=== PATIENT | female | born 1950 | race Caucasian/White ===

== ENCOUNTER → 2016-10-07 | Outpatient (CLI) | payer BC ==
[~2016-10-07] MED LIST: ACET-1138 PO; CALC500C70 PO; CHOL100010 PO; CHOL100027 PO; CRAN500C2 PO; DTR5 PO; Duricef PO; GABA-112 PO; HYDR-5688 PO; HYDR200T5 PO; LEFL20TA PO; MISCCAP80 PO; NAPR1TAB9 PO; NF1420 OR; PRD/1 PO; PRED-301 PO; PRLSR20 PO; RIFA300C34 PO; SENN-61 PO
[2016-10-07 12:12] LABS: HEMATOCRIT 32.6 % (37-47); MEAN CELL VOLUME 78.4 fL (80-100); MEAN CORPUSCULAR HEMOGLOBIN 23.8 pg (25-34); MEAN CORPUSCULAR HGB CONC 30.4 g/dl (32-36); MEAN PLATELET VOLUME 9.1 fL (7.4-10.4); PLATELET COUNT 311 K/uL (130-400); RED BLOOD COUNT 4.16 M/uL (4.2-5.4); WHITE BLOOD COUNT 8.42 K/uL (4.8-10.8)
[2016-10-07 12:42] LABS: ALT/SGPT 14 U/L (12-78); CREATININE 0.81 mg/dl (0.60-1.20)
[2016-10-07 12:45] LABS: ALKALINE PHOSPHATASE 61 U/L (45-117); AST/SGOT 7 U/L (15-37)
== END | disposition home or self-care (01) ==
LOC: C.LABPVFM 10:38
PROVIDERS: ATTEND Internal Medicine
DX: M06.9 Rheumatoid arthritis, unspecified (principal); Z79.899 Other long term (current) drug therapy

== ENCOUNTER 2016-10-31 14:55 | Emergency (ER) | payer BC ==
[~2016-10-31] VITALS: Ht 160 cm; Wt 55.0 kg
[~2016-10-31 14:55] MED LIST changes: -CHOL100027 PO; -Duricef PO; -HYDR-5688 PO; -NF1420 OR; -RIFA300C34 PO
[2016-10-31 15:03] VITALS: TEMP 36.7; Ht 160 cm; Wt 55.0 kg
--- NOTE | 2016-10-31 15:46 | DIAGNOSTIC IMAGING REPORT ---
SINGLE VIEW CHEST CLINICAL HISTORY: Near syncope. FINDINGS: An AP, portable, upright chest radiograph is compared to study dated 12/18/2015. The examination is degraded by portable technique and patient rotation. The heart is mildly enlarged and there is atherosclerotic calcification of the thoracic aorta. The pulmonary vasculature is noncongested. Emphysema is suspected and chronic interstitial thickening is similar to previous. No airspace consolidation, large pleural effusion, or pneumothorax is seen. The skeletal structures are osteopenic. Arthritic change is seen in the shoulders. Chronic postsurgical deformity is noted on the right. IMPRESSION: Cardiomegaly and suspect emphysema. No acute cardiopulmonary abnormality is identified. Electronically signed by: Geremias Avila M.D. 10/31/2016 3:44 PM Dictated Date/Time: 10/31/2016 3:42 PM
[2016-10-31 16:03] LABS: BUN/CREATININE RATIO 26.7 (10-20); CALCIUM 8.8 mg/dl (8.5-10.1); CREATININE 0.77 mg/dl (0.60-1.20); POTASSIUM 3.9 mmol/L (3.5-5.1)
--- NOTE | 2016-10-31 16:07 | EMERGENCY ROOM VISIT NOTE ---
History Report prepared by Michi: Sonia Patel Under the Supervision of: Dr. Erma Alatorre M.D. First contact with patient: 15:32 Chief Complaint: SYNCOPE (NEAR SYNCOPE) Stated Complaint: near syncope Nursing Triage Summary: recieved a small amount of her inpatient antibiotic-only abut 50 mL per nurse-and developed dizziness with hypotension-as low as 75 SBP-states this was her 5th dose of this antibiotic and that this has never happened before History of Present Illness The patient is a 66 year old female who presents to the Emergency Room with complaints of feeling flushed starting a few minutes prior to arrival. The patient has right knee infection after right knee replacement surgery. She has been receiving dalbavancin injection every 2 weeks at the wound care clinic. Today was her fifth treatment and it was supposed to be her last treatment. She denies any history of reaction to the antibiotic. The patient received about 50 mls of the antibiotic today when she started feeling flushed and hot with some blurriness in her vision. She also felt lightheaded. She denies any loss of consciousness. The patient is unsure about any heart palpitations. She currently denies any pain but continues to feel warm. The patient denies any history of similar symptoms. She denies any chest pain, shortness of breath, nausea, vomiting, diarrhea, or any other complaints. Source of History: patient Onset: a few minutes prior to arrival Position: other (global) Symptom Intensity: No pain currently Quality: other (feeling flushed) Associated Symptoms: No LOC, No SOB, No chest pain, No diarrhea, No nausea, No vomiting Review of Systems See HPI for pertinent positives & negatives. A total of 10 systems reviewed and were otherwise negative. 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 Social History Smoking Status: Never Smoker Alcohol Use: occasionally Drug Use: none Marital Status: Housing Status: lives with family Occupation Status: retired Current/Historical Medications Scheduled Calcium/Vitamin D (Os-Dylan 500 Plus D), 1 TAB PO BID Cholecalciferol (Vitamin D 1000 Unit), 1,000 INTER.UNIT PO QPM Cranberry (Vaccinium Macrocarp (Cranberry), 500 MG PO HS Gabapentin (Neurontin), 100 MG PO TID Hydroxychloroquine Sulfate (Plaquenil), 1 TAB PO BID Leflunomide (Arava), 1 TAB PO DAILY Naproxen (Aleve), 500 MG PO BID Omeprazole (Prilosec), 20 MG PO BID Oxybutynin Chloride (Oxybutynin Chloride), 5 MG PO BID Prednisone (Prednisone), 5 MG PO QAM Prednisone (Prednisone), 1 MG PO QPM Probiotic Product (Probiotic), 1 CAP PO QAM Senna (Senokot), 2 TAB PO HS Scheduled PRN Hydrocodone/Acetaminophen 5MG/325MG ([place] 5MG/325MG), 1 TABLET PO HS PRN for Pain Allergies Coded Allergies: Dalbavancin (Verified Allergy, Severe, hypotension, flushing, tachypnea, ) Physical Exam Vital Signs Date Time Temp Pulse Resp B/P Pulse Ox O2 Delivery O2 Flow Rate FiO2 10/31/16 17:50 58 167/90 10/31/16 16:57 60 16 145/55 90 Room Air 10/31/16 15:59 77 20 176/83 10/31/16 15:53 73 20 150/81 76 147/61 81 127/69 10/31/16 15:11 82 10/31/16 15:03 36.7 79 18 151/81 97 Room Air Physical Exam Vital signs reviewed. General: Well-appearing, in no significant distress. HEENT: No scleral icterus, PERRLA, neck supple. Atraumatic. Cardiovascular: Regular rate and rhythm, no extra sounds. Pulmonary: Clear to auscultation bilaterally, normal work of breathing. Abdomen: Soft, nontender, nondistended, positive bowel sounds. Musculoskeletal: Atraumatic, no peripheral edema. Neurologic: Patient awake alert and oriented x 3, full strength in all 4 extremities. Cranial nerves 2 through 12 grossly intact. Skin: Warm, dry, no rash. Some open wound with packing about a half a centimeter to the right [place] with a dressing in place, no sign of abscess or cellulitis. Medical Decision & Procedures ER Provider Diagnostic Interpretation: X-ray results as stated below per interpretation by me and the radiologist: SINGLE VIEW CHEST CLINICAL HISTORY: Near syncope. FINDINGS: An AP, portable, upright chest radiograph is compared to study dated 12/18/2015. The examination is degraded by portable technique and patient rotation. The heart is mildly enlarged and there is atherosclerotic calcification of the thoracic aorta. The pulmonary vasculature is noncongested. Emphysema is suspected and chronic interstitial thickening is similar to previous. No airspace consolidation, large pleural effusion, or pneumothorax is seen. The skeletal structures are osteopenic. Arthritic change is seen in the shoulders. Chronic postsurgical deformity is noted on the right. IMPRESSION: Cardiomegaly and suspect emphysema. No acute cardiopulmonary abnormality is identified. Electronically signed by: Geremias Avila M.D. 10/31/2016 3:44 PM Dictated Date/Time: 10/31/2016 3:42 PM Laboratory Results 10/31/16 15:25 Red Blood Count 4.01, Mean Corpuscular Volume 78.3, Mean Corpuscular Hemoglobin 23.7, Mean Corpuscular Hemoglobin Concent 30.3, Mean Platelet Volume 9.7, Neutrophils (%) (Auto) 79.8, Lymphocytes (%) (Auto) 12.9, Monocytes (%) (Auto) 4.3, Eosinophils (%) (Auto) 2.5, Basophils (%) (Auto) 0.2, Neutrophils # (Auto) 4.81, Lymphocytes # (Auto) 0.78, Monocytes # (Auto) 0.26, Eosinophils # (Auto) 0.15, Basophils # (Auto) 0.01 10/31/16 15:25 Test 10/31/16 15:25 10/31/16 15:29 10/31/16 15:50 White Blood Count 6.03 K/uL (4.8-10.8) Red Blood Count 4.01 M/uL (4.2-5.4) Hemoglobin 9.5 g/dL (12.0-16.0) Hematocrit 31.4 % (37-47) Mean Corpuscular Volume 78.3 fL (80-100) Mean Corpuscular Hemoglobin 23.7 pg (25-34) Mean Corpuscular Hemoglobin Concent 30.3 g/dl (32-36) Platelet Count 311 K/uL (130-400) Mean Platelet Volume 9.7 fL (7.4-10.4) Neutrophils (%) (Auto) 79.8 % Lymphocytes (%) (Auto) 12.9 % Monocytes (%) (Auto) 4.3 % Eosinophils (%) (Auto) 2.5 % Basophils (%) (Auto) 0.2 % Neutrophils # (Auto) 4.81 K/uL (1.4-6.5) Lymphocytes # (Auto) 0.78 K/uL (1.2-3.4) Monocytes # (Auto) 0.26 K/uL (0.11-0.59) Eosinophils # (Auto) 0.15 K/uL (0-0.5) Basophils # (Auto) 0.01 K/uL (0-0.2) RDW Standard Deviation 49.0 fL (36.4-46.3) RDW Coefficient of Variation 17.1 % (11.5-14.5) Immature Granulocyte % (Auto) 0.3 % Immature Granulocyte # (Auto) 0.02 K/uL (0.00-0.02) Anion Gap 6.0 mmol/L (3-11) Est Creatinine Clear Calc Drug Dose 57.8 ml/min Estimated GFR () 92.0 Estimated GFR (Non- 79.3 BUN/Creatinine Ratio 26.7 (10-20) Calcium Level 8.8 mg/dl (8.5-10.1) Total Bilirubin 0.3 mg/dl (0.2-1) Aspartate Amino Transf (AST/SGOT) 9 U/L (15-37) Alanine Aminotransferase (ALT/SGPT) 14 U/L (12-78) Alkaline Phosphatase 63 U/L (45-117) Total Creatine Kinase 74 U/L (26-192) Creatine Kinase MB 0.7 ng/ml (0.5-3.6) Creatine Kinase MB Ratio 0.9 (0-3.0) Total Protein 6.1 gm/dl (6.4-8.2) Albumin 3.2 gm/dl (3.4-5.0) Globulin 2.9 gm/dl (2.5-4.0) Albumin/Globulin Ratio 1.1 (0.9-2) Thyroid Stimulating Hormone (TSH) 0.847 uIu/ml (0.300-4.500) Bedside Troponin I 0.000 ng/ml (0-0.045) Urine Color YELLOW Urine Appearance CLEAR (CLEAR) Urine pH 8.0 (4.5-7.5) Urine Specific [place] 1.014 (1.000-1.030) Urine Protein 1+ (NEG) Urine Glucose (UA) NEG (NEG) Urine Ketones NEG (NEG) Urine Occult Blood NEG (NEG) Urine Nitrite NEG (NEG) Urine Bilirubin NEG (NEG) Urine Urobilinogen NEG (NEG) Urine Leukocyte Esterase TRACE (NEG) Urine WBC (Auto) 10-30 /hpf (0-5) Urine RBC (Auto) 0-4 /hpf (0-4) Urine Hyaline Casts (Auto) 1-5 /lpf (0-5) Urine Epithelial Cells (Auto) >30 /lpf (0-5) Urine Bacteria (Auto) NEG (NEG) Date/Time Source Procedure Growth Status 10/31/16 15:50 Urine , Clean Catch Urine Culture - Final Proteus Mirabilis Complete Laboratory results per my review. Medications Administered Medications (Trade) Dose Ordered Sig/Brown Route Start Time Stop Time Status Last Admin Dose Admin Sodium Chloride (Nss 1000ml) 1,000 ml @ 125 mls/hr Q8H STAT IV 10/31/16 16:25 10/31/16 18:10 DC 10/31/16 16:25 125 MLS/HR ECG Indication: other (Lightheadedness) Rate (beats per minute): 76 Rhythm: normal sinus Findings: no acute ischemic change, no ectopy ED Course 1532: Past medical records reviewed. The patient was evaluated in room C02A. A complete history and physical examination was performed. 1625: Sodium Chloride 1000 ml @ 125 mls/hr IV 1740: Upon reevaluation, the patient appeared to have improvement of her symptoms. I discussed findings with her. She verbalized agreement of the treatment plan. The patient was discharged home. Medical Decision Differential diagnosis: Etiologies such as benign positional vertigo, dehydration, hypovolemia, anemia, tumor, infection, hypoglycemia, electrolyte abnormalities, cardiac sources, intracerebral event, toxicologic, neurologic, as well as others were entertained. This patient was evaluated and appeared to be in no significant distress. Physical examination is fairly unrevealing. The patient is mildly orthostatic. She was hydrated with normal saline solution. I suspect the patient had some sort of reaction to the antibiotic although I do not suspect this is a clear allergic reaction. This time she is feeling well. Laboratory work is unrevealing. Urinalysis is questionable for infection and contaminated with epithelial cells. The patient denies any urinary symptoms at this time. Urine will be sent for culture. The patient was advised to follow-up with her physician this week for reevaluation and to return to the ER for worsening of symptoms or any medical concerns. Impression Primary Impression: Near syncope Additional Impression: Flushing reaction Scribe Attestation The scribe's documentation has been prepared under my direction and personally reviewed by me in its entirety. I confirm that the note above accurately reflects all work, treatment, procedures, and medical decision making performed by me. Departure Information Dispostion Home / Self-Care Referrals Lorenzo Evangelista M.D. (PCP) Forms HOME CARE DOCUMENTATION FORM, IMPORTANT VISIT INFORMATION Patient Instructions [facility] Additional Instructions Diagnosis: Flushing reaction, near syncope Please drink plenty of clear fluids. Follow-up with your physician this week for reevaluation. Monitor for signs and symptoms of urinary tract infection. Return to the ER for worsening of symptoms or any medical concern Problem Qualifiers
[2016-10-31 16:13] LABS: ALB/GLOB RATIO 1.1 (0.9-2); CKMB/CK RATIO 0.9 (0-3.0); THYROID STIMULATING HORMONE 0.847 uIu/ml (0.300-4.500)
[2016-10-31] MEDS ORDERED: CHOL100027 PO (16:19)
[2016-10-31] MEDS ORDERED: DTR5 PO (16:19)
[2016-10-31] MEDS ORDERED: HYDR-5688 PO (16:19)
[2016-10-31 16:21] LABS: URINE APPEARANCE CLEAR (CLEAR); URINE BILIRUBIN NEG (NEG); URINE COLOR YELLOW; URINE EPITHELIAL CELL AUTO >30 /lpf (0-5); URINE NITRITE NEG (NEG); URINE SPECIFIC GRAVITY 1.014 (1.000-1.030); UROBILINOGEN NEG (NEG); ZZUR CULT IF INDIC CLEAN CATCH YES
[2016-10-31] MEDS ORDERED: SODIUM CHLORIDE 0.9% 1000ML 1,000 ML IV STA (16:25)
[2016-10-31 16:28] LABS: MANUAL MICROSCOPIC REQUIRED? NO; REVIEW REQ? NO
[2016-10-31 16:29] LABS: SULFASALICYLIC ACID POS (NEG)
[2016-10-31 16:57] VITALS: O2SAT 90
[2016-10-31 17:24] LABS: BASO % 0.2 %; BASO ABS # 0.01 K/uL (0-0.2); COMPLETE YES; EOS % 2.5 %; HEMATOCRIT 31.4 % (37-47); IG% 0.3 %; LYMPH % 12.9 %; LYMPH ABS # 0.78 K/uL (1.2-3.4); MEAN CELL VOLUME 78.3 fL (80-100); MEAN CORPUSCULAR HEMOGLOBIN 23.7 pg (25-34); MEAN CORPUSCULAR HGB CONC 30.3 g/dl (32-36); MEAN PLATELET VOLUME 9.7 fL (7.4-10.4); MONO % 4.3 %; NEUT % 79.8 %; PLATELET COUNT 311 K/uL (130-400); RED BLOOD COUNT 4.01 M/uL (4.2-5.4); WHITE BLOOD COUNT 6.03 K/uL (4.8-10.8)
[2016-10-31 17:50] VITALS: BP 167/90; PULSE 58
[2016-11-05] MEDS ORDERED: NF1420 OR (09:35)
[2016-11-13] MEDS ORDERED: RIFA300C34 PO (13:18)
[2017-01-15] MEDS ORDERED: Duricef PO (10:23)
== END 2016-10-31 17:51 | disposition home or self-care (01) ==
LOC: EDBD 14:55 → C.EDC 14:56
DX: R55 Syncope and collapse (principal); R23.2 Flushing; M81.0 Age-related osteoporosis without current pathological fracture; Z85.71 Personal history of Hodgkin lymphoma; Z85.3 Personal history of malignant neoplasm of breast; Z85.810 Personal history of malignant neoplasm of tongue; Z96.649 Presence of unspecified artificial hip joint; Z79.899 Other long term (current) drug therapy; Z88.8 Allergy status to other drugs, medicaments and biological substances; T84.53XA Infection and inflammatory reaction due to internal right knee prosthesis, initial encounter; B95.8 Unspecified staphylococcus as the cause of diseases classified elsewhere; Y83.1 Surgical operation with implant of artificial internal device as the cause of abnormal reaction of the patient, or of later complication, without mention of misadventure at the time of the procedure

== ENCOUNTER → 2016-12-04 | Outpatient (CLI) | payer BC ==
[~2016-12-04] MED LIST changes: -ACET-1138 PO; -CHOL100010 PO; +CHOL100027 PO; +Duricef PO; +HYDR-5688 PO; +NF1420 OR
--- NOTE | 2016-12-04 16:18 | MAMMOGRAPHY REPORT ---
BILATERAL DIGITAL SCREENING MAMMOGRAM WITH CAD: 12/04/2016 CLINICAL HISTORY: Routine screening. Patient has no complaints. TECHNIQUE: Current study was also evaluated with a Computer Aided Detection (CAD) system. Bilateral CC and MLO views were obtained. COMPARISON: Comparison is made to exams dated: 02/01/2015 mammogram, 01/23/2015 mammogram, 01/19/2014 m ammogram, 01/18/2013 mammogram, 01/01/2012 mammogram, and 12/30/2010 mammogram - [facility] enter. BREAST COMPOSITION: The tissue of both breasts is heterogeneously dense, which may obscure small mas ses. FINDINGS: No suspicious masses, calcifications, or areas of architectural distortion are noted in ei ther breast. There has been no significant interval change compared to prior exams. Bilateral benign -appearing calcifications are not significantly changed. IMPRESSION: ACR BI-RADS CATEGORY 2: BENIGN There is no mammographic evidence of malignancy. A 1 year screening mammogram is recommended. The pa tient will receive written notification of the results. Approximately 10% of breast cancers are not detected with mammography. A negative mammographic report should not delay biopsy if a clinically suggestive mass is present. Leyla Nice M.D. /:12/04/2016 15:32:51 Java Portal Developer: Ada CARLISLE(Ramsey)(David)(URMILA), [facility] letter sent: Normal 1/2 BI-RADS Code: ACR BI-RADS Category 2: Benign
== END | disposition home or self-care (01) ==
LOC: C.MAMM 10:36
PROVIDERS: ATTEND Obstetrics & Gynecology
DX: Z12.31 Encounter for screening mammogram for malignant neoplasm of breast (principal); Z86.39 Personal history of other endocrine, nutritional and metabolic disease

== ENCOUNTER → 2016-12-04 | Outpatient (CLI) | payer BC | END | disposition home or self-care (01) | LOC: C.PAPS 13:44 | PROVIDERS: ATTEND Obstetrics & Gynecology | DX: Z13.9 Encounter for screening, unspecified (principal) ==

== ENCOUNTER → 2016-12-04 | Outpatient (CLI) | payer BC ==
--- NOTE | 2016-12-12 10:40 | CODING QUERY MEDICAL NECESSITY ---
SUPPORTING DIAGNOSIS NEEDED Dr. Guajardo, A supporting diagnosis is required for the test/procedure performed on this patient in order for us to be reimbursed by the patient's insurance. Please provide a supporting diagnosis for the following test/procedure listed below next to the test name along with your signature. *If there is no additional diagnosis for this patient that would support the following test/procedure please document that below next to the test/procedure. Test(s)/Procedure(s) that require a supporting diagnosis: * ([id number]) VITAMIN D ASSAY DIAGNOSIS: DATE OF SERVICE: 12/04/16 Provider Signature: Date: Thank you Tremaine [facility] Information Management Once completed, please kindly fax back to [phone] For questions please call [phone]
== END | disposition home or self-care (01) ==
LOC: C.LAB1850 10:03
PROVIDERS: ATTEND Internal Medicine Endocrinology, Diabetes & Metabolism
DX: Z86.39 Personal history of other endocrine, nutritional and metabolic disease (principal); Z87.39 Personal history of other diseases of the musculoskeletal system and connective tissue

== ENCOUNTER → 2016-12-29 | Outpatient (CLI) | payer BC | END | disposition home or self-care (01) | LOC: C.MAMM 10:26 | PROVIDERS: ATTEND Internal Medicine Endocrinology, Diabetes & Metabolism | DX: M85.831 Other specified disorders of bone density and structure, right forearm (principal); Z87.39 Personal history of other diseases of the musculoskeletal system and connective tissue; M51.36 Other intervertebral disc degeneration, lumbar region; Z86.39 Personal history of other endocrine, nutritional and metabolic disease ==

== ENCOUNTER → 2017-01-08 | Outpatient (CLI) | payer BC ==
[2017-01-08 12:31] LABS: CALCIUM 9.7 mg/dl (8.5-10.1); CREATININE 0.81 mg/dl (0.60-1.20)
== END | disposition home or self-care (01) ==
LOC: C.LAB1850 10:25
PROVIDERS: ATTEND Internal Medicine Endocrinology, Diabetes & Metabolism
DX: Z87.39 Personal history of other diseases of the musculoskeletal system and connective tissue (principal); Z86.39 Personal history of other endocrine, nutritional and metabolic disease

== ENCOUNTER → 2017-01-15 | Day surgery (SDC) | payer BC ==
[~2017-01-15] VITALS: Ht 157.5 cm; Wt 55.5 kg
[~2017-01-15] MED LIST changes: +ZOLEDRONIC ACID INJ 5 MG in EMPTY BAG 0 ML IV SCH
[2017-01-15 10:25] VITALS: BP 176/74; PULSE 73; TEMP 36.4; O2SAT 95; Ht 157.5 cm; Wt 55.5 kg
== END | disposition home or self-care (01) ==
LOC: C.MTU 09:40
PROVIDERS: ATTEND Internal Medicine Endocrinology, Diabetes & Metabolism
DX: M81.8 Other osteoporosis without current pathological fracture (principal); T38.0X5A Adverse effect of glucocorticoids and synthetic analogues, initial encounter

== ENCOUNTER → 2017-04-01 | Outpatient (CLI) | payer BC ==
[~2017-04-01] MED LIST changes: -ZOLEDRONIC ACID INJ 5 MG in EMPTY BAG 0 ML IV SCH
[2017-04-01 17:27] LABS: HEMATOCRIT 34.7 % (37-47); MEAN CELL VOLUME 76.9 fL (80-100); MEAN CORPUSCULAR HEMOGLOBIN 22.6 pg (25-34); MEAN CORPUSCULAR HGB CONC 29.4 g/dl (32-36); MEAN PLATELET VOLUME 9.3 fL (7.4-10.4); PLATELET COUNT 279 K/uL (130-400); RED BLOOD COUNT 4.51 M/uL (4.2-5.4); WHITE BLOOD COUNT 9.21 K/uL (4.8-10.8)
[2017-04-01 17:43] LABS: ALT/SGPT 15 U/L (12-78); AST/SGOT 8 U/L (15-37); CREATININE 0.66 mg/dl (0.60-1.20)
[2017-04-01 17:45] LABS: ALKALINE PHOSPHATASE 56 U/L (45-117)
== END | disposition home or self-care (01) ==
LOC: C.LABPVFM 10:46
PROVIDERS: ATTEND Internal Medicine
DX: M06.09 Rheumatoid arthritis without rheumatoid factor, multiple sites (principal); Z79.899 Other long term (current) drug therapy

== ENCOUNTER → 2017-10-08 | Outpatient (CLI) | payer BC ==
[2017-10-08 13:17] LABS: HEMATOCRIT 34.1 % (37-47); MEAN CELL VOLUME 74.6 fL (80-100); MEAN CORPUSCULAR HEMOGLOBIN 21.9 pg (25-34); MEAN CORPUSCULAR HGB CONC 29.3 g/dl (32-36); MEAN PLATELET VOLUME 9.5 fL (7.4-10.4); PLATELET COUNT 315 K/uL (130-400); RED CELL DISTRIBUTION WIDTH CV 18.9 % (11.5-14.5); RED CELL DISTRIBUTION WIDTH SD 51.1 fL (36.4-46.3); WHITE BLOOD COUNT 8.76 K/uL (4.8-10.8)
[2017-10-08 14:25] LABS: ALBUMIN 3.6 gm/dl (3.4-5.0); ALT/SGPT 16 U/L (12-78); CREATININE 0.84 mg/dl (0.60-1.20)
[2017-10-08 14:28] LABS: ALKALINE PHOSPHATASE 56 U/L (45-117); AST/SGOT 9 U/L (15-37); TOTAL PROTEIN 6.7 gm/dl (6.4-8.2)
== END | disposition home or self-care (01) ==
LOC: C.LABPVFM 09:39
PROVIDERS: ATTEND Internal Medicine
DX: M06.09 Rheumatoid arthritis without rheumatoid factor, multiple sites (principal); Z79.899 Other long term (current) drug therapy

== ENCOUNTER → 2018-01-21 | Outpatient (CLI) | payer BC ==
[~2018-01-21] MED LIST changes: +BIOT1CAP8 PO
[2018-01-21 09:55] LABS: ALBUMIN 3.5 gm/dl (3.4-5.0); CALCIUM 9.8 mg/dl (8.5-10.1); CREATININE 0.83 mg/dl (0.60-1.20)
== END | disposition home or self-care (01) ==
LOC: C.LAB1850 08:52
PROVIDERS: ATTEND Internal Medicine Endocrinology, Diabetes & Metabolism
DX: Z87.39 Personal history of other diseases of the musculoskeletal system and connective tissue (principal); Z79.899 Other long term (current) drug therapy

== ENCOUNTER → 2018-01-27 | Day surgery (SDC) | payer BC ==
[~2018-01-27] VITALS: Ht 159.4 cm; Wt 56.4 kg
[~2018-01-27] MED LIST changes: +ZOLEDRONIC ACID INJ 5 MG in EMPTY BAG 0 ML IV SCH
[2018-01-27 07:59] VITALS: BP 130/75; PULSE 90; TEMP 36.8; O2SAT 90; Ht 159.4 cm; Wt 56.4 kg
--- NOTE | 2018-02-12 13:36 | CODING QUERY NO DIAGNOSIS ---
TREATMENT RENDERED WITHOUT A DIAGNOSIS DATE OF SERVICE: 01/27/18 To promote full compliance with coding requirements relating to patient care, physician participation is requested in all cases of postage machine operator uncertainty. Please assist us with providing a diagnosis/symptom for the test(s) below: A diagnosis/symptom was not documented on your Order. A valid diagnosis/symptom is required to bill all insurances. Please remember that we are unable to code a diagnosis of rule out, probable, possible, questionable, or suspected. Tests that require a diagnosis: * ZOLEDRONIC ACID 5MG/100ML DIAGNOSIS: BE SURE TO ADD DIAGNOSIS BEFORE SIGNING Provider Signature: Date: Thank you Maddi Concepcion [facility] Information Management Once completed, please kindly fax back to [phone] For questions please call [phone]
== END | disposition home or self-care (01) ==
LOC: C.MTU 07:50
PROVIDERS: ATTEND Internal Medicine Endocrinology, Diabetes & Metabolism
DX: Z86.39 Personal history of other endocrine, nutritional and metabolic disease (principal); Z87.39 Personal history of other diseases of the musculoskeletal system and connective tissue

== ENCOUNTER 2018-11-09 08:01 | Inpatient (IN) ==
--- NOTE | 2018-10-15 10:39 | Anesthesiology Consultation ---
Date of Service October 15, 2018 Assessment & Plan (1) Encounter for pre-operative examination: Chart Review Chart Review: Acceptable Risk for Surgery and Patient seen in Pre Admission Testing Teaching & Discussion Instructed NPO after midnight before surgery, except medications with 15 cc of water. Medication instructions provided according to the PAT guidelines. History Surgery Operation Date: 11/09/18 07:15 Proposed Procedures p Left Hip Revision Head and Liner versus Revision Cup - Ihsan Vela DO Height/Weight Height: 5 ft 2.75 in Weight: 57.6 kg Allergies Allergy/AdvReac Type Severity Reaction Status Date / Time dalbavancin Allergy Severe hypotension, Verified 10/08/18 10:10 flushing, tachypnea Medications Home Medications Medication Instructions Recorded Confirmed Last Taken gabapentin 100 mg PO TID 03/30/18 10/08/18 09/29/18 hydrocodone-acetaminophen 1 tab PO UD PRN 03/30/18 10/08/18 Unknown hydroxychloroquine [Plaquenil] 200 mg PO BID 03/30/18 10/08/18 09/29/18 lactobacillus combination no.4 3,000 mmu cells PO QAM 03/30/18 10/08/18 09/29/18 [Probiotic] oxybutynin chloride 1 tab PO BID 03/30/18 10/08/18 09/29/18 prednisone 1 mg PO PM 03/30/18 10/08/18 09/28/18 prednisone 5 mg PO QAM 03/30/18 10/08/18 09/29/18 sennosides [senna] 17.2 mg PO HS 03/30/18 10/08/18 09/28/18 biotin 2,000 mcg PO HS 09/29/18 10/08/18 09/28/18 cefadroxil 500 mg PO QAM 09/29/18 10/08/18 09/29/18 cholecalciferol (vitamin D3) 1,000 unit PO BID 09/29/18 10/08/18 09/29/18 [Vitamin D3] cranberry 500 mg PO HS 09/29/18 10/08/18 09/28/18 leflunomide 20 mg PO QAM 09/29/18 10/08/18 09/29/18 naproxen 500 mg PO BID 09/29/18 10/08/18 Unknown omeprazole 20 mg PO BID 09/29/18 10/08/18 09/29/18 A-C-E-zinc ox-cupric ox-lutein 1 tab PO QAM 10/08/18 10/08/18 Unknown [[facility]] calcium carbonate-vitamin D3 1 tab PO BID 10/08/18 10/08/18 Unknown [Calcium 600 + D(3)] Past Medical History Medical History Cancer HODGKINS LYMPHOMA-2003 TREATED Chronic steroid use FOR RA Degenerative disc disease Rheumatoid arthritis Past Family History Family History Other Family history non-contributory Past Surgical History Surgical History Cancer TONGUE EXCISION LEFT SIDE-NO CHEMO NO RADIATION-2013 H/O foot surgery TOES X MULTIPLE H/O parathyroidectomy History of carpal tunnel release X 1 History of total hip arthroplasty RIGHT X 2 History of total hip arthroplasty LEFT History of total knee replacement R/L Past Anesthesia History No Hx of Anesthesia Complications and No Family Hx of Anesthesia Complications Patient has had multiple LE joint replacements with SAB without issues. History of PONV No Motion Sickness Screening History of Motion Sickness: No Social History Smoking Status: Never smoker Do You Dip or Chew Tobacco: No Hx Alcohol Use: No Hx Substance Use: No substance use type: does not use Exercise / Class Metabolic Activity III < 4 Walking/Shop/Light housework (Very limited by hip pain currently, using cane or walker, denies CP or SOB with ambulation) Review of Systems Pt denies any recent chest pain, shortness of breath, palpitations, cough, fever or URI. Physical Exam Vital Signs BP: 122/71 P: 84bpm SPO2: 96% RA T: 98.4 F R: 12 ENMT Mouth: no dental restorations, no chipped teeth and no loose teeth Thyromental Distance: > or= 3.5 Finger Breadths (3.5) Mallampati Class: II Slight asymmetry of tongue 2/2 h/o lesion excision Neck normal visual inspection and + limited neck extension (mildly) Respiratory normal respiratory effort Auscultation: lungs clear to auscultation bilaterally Cardiovascular Rate/Rhythm: regular rate and regular rhythm Heart Sounds: no murmur Vessels: no carotid bruit Extremities: no edema Testing Electrocardiogram Date: 10/15/18 Findings: + NSR @ (78) Chest X-Ray Date: 10/15/18 Findings: + NAD Cervical Spine Date: 10/15/18 IMPRESSION: 1. Multilevel degenerative changes as above. 2. Grade 1 anterolisthesis C3 on C4 is slightly worsened on flexion. Correlate clinically to exclude instability. 3. Fixed anterolisthesis C4 on C5 is unchanged throughout the study. 4. No acute fracture. Laboratory Results Blood Type O Positive 10/15/18 11:08 Antibody Screen NEGATIVE 10/15/18 11:08 PT 11.1 Seconds (9.0-12.0) 10/15/18 11: INR 1.1 (0.9-1.1) 10/15/18 11:08 APTT 25.9 Seconds (21.0-31.0) 10/15/18 11:08 Hemoglobin A1c 5.7 % (4.5-5.6) H 10/15/18 11:08 Urine Color Yellow 10/15/18 10:30 Urine Appearance Turbid (Clear) H 10/15/18 10:30 Urine pH 5.0 (4.5-7.5) 10/15/18 10:30 Ur Specific [place] 1.028 (1.000-1.030) 10/15/18 10:30 Urine Protein Trace (Negative) H 10/15/18 10:30 Urine Glucose (UA) Negative (Negative) 10/15/18 10:30 Urine Ketones Trace (Negative) H 10/15/18 10:30 Urine Nitrite Positive (Negative) H 10/15/18 10:30 Ur Leukocyte Esterase 3+ (Negative) H 10/15/18 10:30 Urine WBC (Auto) >30 /hpf (0-5) H 10/15/18 10:30 Urine RBC (Auto) 5-10 /hpf (0-4) H 10/15/18 10:30 U Hyaline Cast (Auto) 5-10 /lpf (0-5) H 10/15/18 10:30 U Epithel Cells (Auto) >30 /lpf (0-5) H 10/15/18 10:30 Urine Bacteria (Auto) 4+ (Negative) H 10/15/18 10:30 10/15/18 10:30 Urine Culture - Preliminary Urine,Clean Catch Klebsiella pneumoniae ESBL *surgeon made aware of + UA
--- NOTE | 2018-10-15 10:40 | PAT Medication Instructions ---
Medication Instructions Date of Service October 15, 2018 Home Medications gabapentin 100 mg PO TID hydrocodone-acetaminophen 1 tab PO UD PRN hydroxychloroquine [Plaquenil] 200 mg PO BID lactobacillus combination no.4 3,000 mmu cells PO QAM oxybutynin chloride 1 tab PO BID prednisone 1 mg PO PM prednisone 5 mg PO QAM sennosides [senna] 17.2 mg PO HS biotin 2,000 mcg PO HS cefadroxil 500 mg PO QAM cholecalciferol (vitamin D3) 1,000 unit PO BID cranberry 500 mg PO HS leflunomide 20 mg PO QAM naproxen 500 mg PO BID omeprazole 20 mg PO BID [[facility]] 1 tab PO QAM calcium carbonate-vitamin D3 1 tab PO BID ASK your surgeon for instructions naproxen 500 mg PO BID ASK your prescriber and surgeon hydroxychloroquine [Plaquenil] 200 mg PO BID leflunomide 20 mg PO QAM STOP taking 2 weeks before surgery cranberry 500 mg PO HS [[facility]] 1 tab PO QAM DO NOT take the morning of surgery lactobacillus combination no.4 3,000 mmu cells PO QAM oxybutynin chloride 1 tab PO BID cholecalciferol (vitamin D3) 1,000 unit PO BID calcium carbonate-vitamin D3 1 tab PO BID Take morning of surgery With a small sip of water, OTHERWISE NOTHING TO EAT OR DRINK AFTER MIDNIGHT: gabapentin 100 mg PO TID hydrocodone-acetaminophen 1 tab PO UD PRN (if needed, may be taken up to four hours before surgery) prednisone 5 mg PO QAM cefadroxil 500 mg PO QAM omeprazole 20 mg PO BID Take evening before surgery gabapentin 100 mg PO TID hydrocodone-acetaminophen 1 tab PO UD PRN (if needed) oxybutynin chloride 1 tab PO BID prednisone 1 mg PO PM sennosides [senna] 17.2 mg PO HS biotin 2,000 mcg PO HS cholecalciferol (vitamin D3) 1,000 unit PO BID omeprazole 20 mg PO BID calcium carbonate-vitamin D3 1 tab PO BID Other Notes If you have any questions please call us at [phone] or [phone] or [phone] or [phone]
--- NOTE | 2018-10-15 11:56 | XRay Report ---
XR cervical spine 2 or 3V HISTORY: 68 years-old Female pre op RA; lateral neutral/flexion/extension preoperative exam. No acut e chest complaints COMPARISON: None available TECHNIQUE: 3 views of the cervical spine FINDINGS: Demineralized appearance the bones. Moderate multilevel disc space narrowing with severe multilevel f acet arthrosis and mild multilevel spondylitic spurring. There is 4 mm anterolisthesis C3 on C4 with flexion measuring 2 mm on neutral and extension positioning. 3 mm anterolisthesis C4 on C5 is unchang ed with neutral, flexion and extension views. Predental interval measures 3 mm and is unchanged of th e study. Advanced degenerative changes at C1-C2. No prevertebral soft tissue swelling. Surgical clips project over the neck. IMPRESSION: 1. Multilevel degenerative changes as above. 2. Grade 1 anterolisthesis C3 on C4 is slightly worsened on flexion. Correlate clinically to exclude instability. 3. Fixed anterolisthesis C4 on C5 is unchanged throughout the study. 4. No acute fracture. The above report was generated using voice recognition software. It may contain grammatical, syntax o r spelling errors. Electronically signed by: Yasmani Cespedes M.D. 10/15/2018 11:55 AM
--- NOTE | 2018-10-15 12:02 | XRay Report ---
XR chest Pre-admission PA/Lat CLINICAL HISTORY: Preoperative chest COMPARISON STUDY: 10/31/2016 FINDINGS: The cardiac and mediastinal contours are normal. There is no evidence of focal pulmonary co nsolidation. There is no evidence of failure. No pleural effusions are visualized.[ There are advance d arthritic changes within the shoulders with progressive erosive changes involving the left humeral head. There is an upper lumbar vertebral body compression fracture. This appears old IMPRESSION: No active disease in the chest. Electronically signed by: Deacon May M.D. 10/15/2018 12:00 PM
[2018-10-15 12:19] LABS: Appearance Urine Turbid (Clear); Bacteria Urine Automated 4+ (Negative); Bilirubin Urine Negative (Negative); Blood Urine Negative (Negative); Color Urine Yellow; Epithelial Cell Urine Auto >30 /lpf (0-5); Glucose Urine UA Negative (Negative); Ketones Urine Trace (Negative); Leukocyte Esterase Urine 3+ (Negative); Nitrite Urine Positive (Negative); Protein Urine Trace (Negative); Specific Gravity Urine 1.028 (1.000-1.030); Urobilinogen Urine Negative (Negative); WBC Urine Automated >30 /hpf (0-5)
[2018-10-15 12:25] LABS: INR 1.1 (0.9-1.1); Partial Thromboplastin Time 25.9 Seconds (21.0-31.0); Prothrombin Time 11.1 Seconds (9.0-12.0)
[2018-10-15 13:11] LABS: Estimated Average Glucose 117 mg/dl; Hemoglobin A1C 5.7 % (4.5-5.6)
--- NOTE | 2018-11-08 18:36 | History & Physical Report ---
Date of Service November 08, 2018 Assessment & Plan (1) Failed total hip arthroplasty with dislocation: I have indicated the patient for revision left total hip replacement, head and liner, possible revision acetabular component. The risks, benefits and complications of surgery were explained to the patient which include but not limited to infection, acute blood loss, DVT/PE, injury to nerves, vessels, bone, soft tissue, arthrofibrosis, chronic pain, failure of the prosthesis, hip dislocation, leg length discrepancy, need for additional surgery, cardiac and pulmonary events and . The patient wished to proceed with surgery and informed consent was obtained at this time. We will plan for ASA BID post- operatively for DVT prophylaxis. Upon discharge the patient will be discharged home with home health services. Appropriate clearances by PCP, Rheum, ID were obtained. The patients RA drugs were stopped two weeks prior, will restart two weeks post surgery. Patient to continue corticosteroids, will require stress dose be given pre-surgery, post surgery will give hydrocortisone 25mg IV @ 8 x 24 hours, then return to her regular dose. Patients chronic suppressive PO abx, cefadroxil Q am will be restarted post operatively. +UTI treated by PCP preoperatively, patient asymptomatic. History of Present Illness Chief Complaint: Recurrent instability left total hip Primary Care Provider: Sylvia Nails MD The patient is a 68 year old female who presents with complaints of recurrent instability of left total hip. Atraumatic hip dislocation in September 29, 2018 and 5 weeks prior when vacationing in [place]. The patient has failed outpatient conservative treatments to this point which included PT and bracing. The patient's pain and limited function have progressed to the point where they severely hinder their activities of daily living and they no longer tolerate exercise programs. Inflammatory labs and bone scan negative for infectious process or loosening. They are requesting to proceed with revision total hip replacement surgery. Allergies Allergy/AdvReac Type Severity Reaction Status Date / Time dalbavancin Allergy Severe hypotension, Verified 11/09/18 09:05 flushing, tachypnea Home Medications Home Medications Medication Instructions Recorded Confirmed Type gabapentin 100 mg PO TID 03/30/18 11/09/18 History hydrocodone-acetaminophen 1 tab PO UD PRN 03/30/18 11/09/18 History hydroxychloroquine [Plaquenil] 200 mg PO BID 03/30/18 11/09/18 History lactobacillus combination no.4 3,000 mmu cells PO QAM 03/30/18 11/09/18 History [Probiotic] oxybutynin chloride 1 tab PO BID 03/30/18 11/09/18 History prednisone 1 mg PO PM 03/30/18 11/09/18 History prednisone 5 mg PO QAM 03/30/18 11/09/18 History sennosides [senna] 17.2 mg PO HS 03/30/18 11/09/18 History biotin 2,000 mcg PO HS 09/29/18 11/09/18 History cefadroxil 500 mg PO QAM 09/29/18 11/09/18 History cholecalciferol (vitamin D3) 1,000 unit PO BID 09/29/18 11/09/18 History [Vitamin D3] cranberry 500 mg PO HS 09/29/18 11/09/18 History leflunomide 20 mg PO QAM 09/29/18 11/09/18 History naproxen 500 mg PO BID 09/29/18 11/09/18 History omeprazole 20 mg PO BID 09/29/18 11/09/18 History A-C-E-zinc ox-cupric ox-lutein 1 tab PO QAM 10/08/18 11/09/18 History [[facility]] calcium carbonate-vitamin D3 1 tab PO BID 10/08/18 11/09/18 History [Calcium 600 + D(3)] Past Med/Surg History Medical History Cancer HODGKINS LYMPHOMA-2003 TREATED Chronic steroid use FOR RA Degenerative disc disease Rheumatoid arthritis Surgical History Cancer TONGUE EXCISION LEFT SIDE-NO CHEMO NO RADIATION-2013 H/O foot surgery TOES X MULTIPLE H/O parathyroidectomy History of carpal tunnel release X 1 History of total hip arthroplasty RIGHT X 2 History of total hip arthroplasty LEFT History of total knee replacement R/L Family History Other Family history non-contributory Social History Preferred Language: Qatari Communication Ability: Effective Sustainable Design Consultant Required: No Beliefs That Will Affect Care: None marital status: Current Living Situation: Spouse current occupational status: retired Other Information That Helps Us Care for You: No Feels Safe at Home: Yes Safety Concerns: Feels Safe At This Time Smoking Status: Never smoker Do You Dip or Chew Tobacco: No Second Hand Exposure: No Hx Alcohol Use: No Hx Substance Use: No Review of Systems Review of Systems: All systems reviewed & are unremarkable except as noted in HPI & below Constitutional: as per Subjective / HPI Physical Exam Physical Exam: LLE NVSI +EHL/FHL/TA/GS SILT grossly, +2 DP pulse, compartments soft NT. Constitutional: WD/WN, vitals as above Eyes: PERRL, conjunctivae normal, anicteric sclerae ENMT: external ear and nose normal, oropharynx normal Neck: trachea midline, no thyromegaly Respiratory: normal respiratory effort, lungs clear to auscultation Cardiovascular: RRR, no murmur, no edema Gastrointestinal (Abdomen): normal bowel sounds, soft, nontender, no hepatosplenomegaly Musculoskeletal: no cyanosis or clubbing, extremities motor strength 5/5 Skin: no rashes, warm and dry Neurologic: patellar DTR's 2+ bilat, sensation intact Psychiatric: A+Ox3, euthymic affect Lymphatic: no cervical or axillary lymphadenopathy Results & Data Diagnostic Findings XRs left hip demonstrated well aligned well fixed orthopedic prosthesis with eccentric wear of the polyethylene liner.
[~2018-11-09 08:01] MED LIST changes: +ACETAMINOPHEN 500 MG TAB PO SCH; -BIOT1CAP8 PO; +BUPIVACAINE 0.5 % 5 MG/1 ML PF 10ML VIAL ONE; -CALC500C70 PO; +CEFAZOLIN 1000MG 1,000 MG/7.5 ML SYR IV SCH; -CHOL100027 PO; -CRAN500C2 PO; +CeleBREX 200 MG CAP PO SCH; -DTR5 PO; -Duricef PO; +FAMOTIDINE 20 MG TAB PO SCH; -GABA-112 PO; +GABAPENTIN 300 MG PO SCH; -HYDR-5688 PO; -HYDR200T5 PO; -LEFL20TA PO; +LIDOCAINE HCL 2% 2 ML VIAL/AMP(20MG/ML) INFIL ONE; +LR 15ML/HR IV SCH; +LR 500ML BOLUS, THEN 15ML/HR IV SCH; +MIDAZOLAM HCL 1 MG/ML 2ML VIAL ONE; -MISCCAP80 PO; -NAPR1TAB9 PO; -NF1420 OR; -PRD/1 PO; -PRED-301 PO; -PRLSR20 PO; +PROPOFOL IV EMULSION 10 MG/ML 20 ML VIAL IV ONE; +ROPIVACAINE 0.5% HCL/PF 150 MG, BUPIVACAINE 0.5% MPF 30 ML, EPINEPHrine 30MG/30ML (OR U... INFIL SCH; -SENN-61 PO; +TRANEXAMIC ACID 1,000 MG **IV Intra-op IV SCH; +TRANEXAMIC ACID 1,000 MG **IV Pre-op IV SCH; -ZOLEDRONIC ACID INJ 5 MG in EMPTY BAG 0 ML IV SCH; +dexAMETHasone 4 MG TAB PO SCH; +fentaNYL citrate 100 MCG/2 ML VIAL ONE
[2018-11-09] MEDS ORDERED: BACITRACIN INJ 50,000 UNIT VIAL ONE (08:18)
[2018-11-09] MEDS ORDERED: ORTHO JOINT ANESTHETIC ONE (08:18)
[2018-11-09] MEDS ORDERED: POVIDONE-IODINE OP SOLN 30 ML BTL ONE (08:18)
--- NOTE | 2018-11-09 10:17 | History & Physical Bridge Note ---
Date of Service November 09, 2018 History & Physical Bridge Note I have examined the patient, reviewed the History & Physical and in the interval since the performance of the History & Physical I have noted the following changes of clinical significance: no changes noted
[2018-11-09] MEDS ORDERED: ONDANSETRON INJ 2 MG/ML 2 ML VIAL ONE (11:23)
[2018-11-09] MEDS ORDERED: HYDROCORTISONE SOD SUCCINATE 100 MG/2 ML VIAL ONE (11:23)
--- NOTE | 2018-11-09 12:10 | Post Operative Brief Note ---
Immediate Post Op Note v1 Date of Surgery November 09, 2018 Pre & Post Diagnosis Operation Date: 11/09/18 09:45 Pre-Op Diagnosis: Left Hip Dislocation Post-Op Diagnosis: Left Hip Dislocation Procedure Operation Date: 11/09/18 09:45 Actual Procedures p Left Hip Revision Head and Liner (Left) - Ihsan Vela DO Surgeon Ihsan Vela DO Profiler Operator Theron Palafox Estimated Blood Loss 95 Findings Consistent with Post-Op Diagnosis Fluids 1200 cc LR Specimens left hip head and liner explant Anesthesia Type Spinal MAC Complications none Disposition Disposition: Recovery Room Overlapping Procedure I was present for: the critical portions of procedure. I was immediately available: during the entire case. Back up surgeon: was not required during procedure.
--- NOTE | 2018-11-09 13:09 | XRay Report ---
XR hip 1V LT w pelvis HISTORY: 68 years-old Female IN PACU - A/P PELVIS and LATERAL HIP left hip total joint arthroplasty COMPARISON: Left hip radiographs 09/29/2018 TECHNIQUE: AP view of the pelvis with crosstable lateral view of the left hip FINDINGS: Demineralized appearance the bones. Right hip total joint arthroplasty. Lucency surrounding the right acetabular cup may reflect associated loosening. Dystrophic calcifications surround the right hip. P robable dense cement material is noted medial to the right acetabulum. Left hip total joint arthroplasty with anchors noted about the left greater trochanter. Satisfactory alignment of the left hip with expected postsurgical soft tissue swelling and deep tissue air with ad jacent skin jorge. No acute fracture or retained foreign body identified. Peripheral arterial calci fications are noted. IMPRESSION: Left hip total joint arthroplasty with satisfactory alignment. The above report was generated using voice recognition software. It may contain grammatical, syntax o r spelling errors. Electronically signed by: Yasmani Cespedes M.D. 11/09/2018 1:08 PM
--- NOTE | 2018-11-09 13:13 | Orthopedic Progress Note ---
Date of Service November 09, 2018 Assessment & Plan (1) Failed total hip arthroplasty with dislocation: Status post revision left total hip arthroplasty, head and liner exchange -Ancef x24, then will continue home chronic p.o. antibiotics -DVT prophylaxis SCDs, teds, ASA twice daily -Weight-bear as tolerated left lower extremity -Posterior hip precautions -PT/OT -A.m. 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 -DC planning home with home health Subjective Post Operative Progress Note Patient seen laying down in PACU, comfortable, denies complaints, pain well controlled, no acute issues. Still feeling the effects of spinal anesthesia. Review of Systems Review of Systems: All systems reviewed & are unremarkable except as noted in HPI & below Constitutional: as per Subjective / HPI Physical Exam Physical Exam: Left lower extremity physical exam limited secondary to spinal anesthesia, +2 dorsalis pedis pulse, compartment soft nontender, dressing clean dry and intact. Constitutional: WD/WN, vitals as above Results & Data Vital Signs (Past 12 Hours) Vital Signs Temp Pulse Pulse Resp BP BP Pulse Ox 11/09/18 13:05 75 13 147/71 H 97 11/09/18 12:55 77 18 136/64 95 11/09/18 12:45 78 19 142/63 H 100 11/09/18 12:35 77 15 134/65 100 11/09/18 12:27 36.5 C 78 16 139/58 L 98 11/09/18 09:27 36.8 C 100 H 18 183/96 H
--- NOTE | 2018-11-09 13:15 | Anesthesiology Progress Note ---
Date of Service November 09, 2018 Anesthesia Post Procedure Vital Signs Vital Signs: Temp Pulse Pulse Resp BP BP Pulse Ox 11/09/18 13:05 75 13 147/71 H 97 11/09/18 12:55 77 18 136/64 95 11/09/18 12:45 78 19 142/63 H 100 11/09/18 12:35 77 15 134/65 100 11/09/18 12:27 36.5 C 78 16 139/58 L 98 11/09/18 09:27 36.8 C 100 H 18 183/96 H Pain Intensity Left Hip: Pain Intensity: 0 Transfer of Care Handoff Completed per policy Notes Mental Status: alert / awake / arousable and participated in evaluation Patient Amnestic to Procedure: Yes Nausea / Vomiting: adequately controlled Pain: adequately controlled Airway Patency, RR, SpO2: stable & adequate BP & HR: stable & adequate Hydration State: stable & adequate Neuraxial Anesthesia: was administered and sensory block is resolving Anesthetic Complications: no major complications apparent
[2018-11-09] MEDS ORDERED: BISACODYL 10 MG SUPP PR PRN (13:56)
[2018-11-09] MEDS ORDERED: MAGNESIUM HYDROXIDE SUSP 30 ML UDC PO PRN (13:56)
[2018-11-09] MEDS ORDERED: ONDANSETRON INJ 2 MG/ML 2 ML VIAL IV PRN (13:56)
[2018-11-09] MEDS ORDERED: METOCLOPRAMIDE HCL INJ 5 MG/ML 2 ML VIAL IV PRN (13:56)
[2018-11-09] MEDS ORDERED: HYDROmorphone INJ 0.5 MG/0.5 ML SYR IV PRN (13:56)
[2018-11-09] MEDS ORDERED: OXYCODONE HCL IR 5 MG TAB (IMMEDIATE RELEASE) PO PRN (13:56)
[2018-11-09] MEDS ORDERED: NALOXONE HCL 0.4 MG/1 ML VIAL/CARP IV PRN (13:56)
[2018-11-09] MEDS ORDERED: HYDROCORTISONE SOD SUCCINATE 100 MG/2 ML VIAL IV SCH (14:00)
[2018-11-09] MEDS: ACETAMINOPHEN 500 MG TAB PO SCH ×2 (15:00→21:25)
[2018-11-09] MEDS: SODIUM CHLORIDE 0.9% 1000ML 1,000 ML IV SCH (15:40)
[2018-11-09] MEDS: KETOROLAC TROMETHAMINE 15 MG/ML VIAL IV SCH ×2 (15:43→21:24)
[2018-11-09] MEDS: GABAPENTIN 100 MG CAP PO SCH ×2 (15:47→21:25)
[2018-11-09] MEDS: HYDROCORTISONE SOD 25 MG in SYRINGE 0 ML IV SCH ×2 (15:48→21:25)
[2018-11-09] MEDS: CEFAZOLIN 1000MG 1,000 MG/7.5 ML SYR IV SCH (17:32)
[2018-11-09] MEDS ORDERED: SENNA 8.6 MG TAB PO SCH (21:00)
[2018-11-09] MEDS: OXYBUTYNIN CHLORIDE 5 MG TAB PO SCH (21:25)
[2018-11-09] MEDS: DOCUSATE SODIUM 100 MG CAP PO SCH (21:25)
[2018-11-09] MEDS: PANTOprazole 40 MG TAB PO SCH (21:25)
[2018-11-10] MEDS: CEFAZOLIN 1000MG 1,000 MG/7.5 ML SYR IV SCH (02:55)
[2018-11-10] MEDS: SODIUM CHLORIDE 0.9% 1000ML 1,000 ML IV SCH (04:41)
[2018-11-10] MEDS: KETOROLAC TROMETHAMINE 15 MG/ML VIAL IV SCH ×3 (04:44→10:51)
[2018-11-10] MEDS: HYDROCORTISONE SOD 25 MG in SYRINGE 0 ML IV SCH (05:50)
[2018-11-10] MEDS: ACETAMINOPHEN 500 MG TAB PO SCH ×2 (05:50→13:56)
[2018-11-10 06:12] LABS: Basophils # (auto) 0.01 K/uL (0-0.2); Basophils % (auto) 0.1 %; Hematocrit (blood only) 29.1 % (37-47); Hemoglobin 8.8 g/dL (12.0-16.0); Immature Granulocytes # (auto) 0.02 K/uL (0.00-0.02); Immature Granulocytes % (auto) 0.1 %; Lymphocytes # (auto) 1.21 K/uL (1.2-3.4); Mean Corpuscular Hgb Conc 30.2 g/dL (32-36); Mean Corpuscular Volume 75.2 fL (80-100); Mean Platelet Volume 8.5 fL (7.4-10.4); Monocytes # (auto) 0.94 K/uL (0.11-0.59); Neutrophils # (auto) 11.22 K/uL (1.4-6.5); Neutrophils % (auto) 83.8 %; Platelet Count 288 K/uL (130-400); RDW Coefficient of Variation 19.1 % (11.5-14.5); RDW Standard Deviation 52.5 fL (36.4-46.3); Red Blood Count 3.87 M/uL (4.2-5.4)
[2018-11-10 06:55] LABS: BUN Creatinine Ratio 21.9 (10-20); Calcium 8.1 mg/dl (8.5-10.1); Creatinine Clr Calc Pharmacy 42.7 ml/min; Est GFR (African American) 60.9; Est GFR (Non-African American) 52.6; Potassium 4.5 mmol/L (3.5-5.1)
--- NOTE | 2018-11-10 08:20 | Orthopedic Progress Note ---
Date of Service November 10, 2018 Assessment & Plan (1) Failed total hip arthroplasty with dislocation: POD 1 Status post revision left total hip arthroplasty, head and liner exchange -Ancef x24, then will continue home chronic p.o. 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 -DC planning home with home health Patient seen and examined, agree with above assessment and plan. Subjective Pt sitting up in bed this AM. States her hip feels a little stiff this AM. Comfortable. Pain controlled. Denies SOB,CP,LH. Review of Systems Review of Systems: All systems reviewed & are unremarkable except as noted in HPI & below Constitutional: as per Subjective / HPI Physical Exam Physical Exam: Silverlon dressing is C/D/I. Thigh is soft. No erythema. Calves are soft, NT. NV intact. Hip located. LLE NVSI +EHL/FHL/TA/GS SILT grossly, +2 DP pulse, compartments soft NT, dressing cdi. Constitutional: WD/WN, vitals as above Results & Data Vital Signs (Past 12 Hours) Vital Signs Temp Pulse Pulse Resp BP BP Pulse Ox 11/10/18 06:51 37 C 75 16 114/65 98 11/10/18 02:21 36.8 C 76 16 114/64 97 11/09/18 22:28 36.6 C 64 16 113/64 98 Laboratory Results Laboratory Results WBC 13.40 K/uL (4.8-10.8) H 11/10/18 06:00 RBC 3.87 M/uL (4.2-5.4) L 11/10/18 06:00 Hgb 8.8 g/dL (12.0-16.0) L 11/10/18 06:00 Hct 29.1 % (37-47) L 11/10/18 06:00 MCV 75.2 fL (80-100) L 11/10/18 06:00 MCH 22.7 pg (25-34) L 11/10/18 06:00 MCHC 30.2 g/dL (32-36) L 11/10/18 06:00 RDW Std Deviation 52.5 fL (36.4-46.3) H 11/10/18 06:00 RDW Coeff of Jarvis 19.1 % (11.5-14.5) H 11/10/18 06:00 Plt Count 288 K/uL (130-400) 11/10/18 06:00 MPV 8.5 fL (7.4-10.4) 11/10/18 06:00 Immature Gran % (Auto) 0.1 % 11/10/18 06:00 Neut % (Auto) 83.8 % 11/10/18 06:00 Lymph % (Auto) 9.0 % 11/10/18 06:00 [place] % (Auto) 7.0 % 11/10/18 06:00 Eos % (Auto) 0.0 % 11/10/18 06:00 Baso % (Auto) 0.1 % 11/10/18 06:00 Immature Gran # (Auto) 0.02 K/uL (0.00-0.02) 11/10/18 06:00 Neut # (Auto) 11.22 K/uL (1.4-6.5) H 11/10/18 06:00 Lymph # (Auto) 1.21 K/uL (1.2-3.4) 11/10/18 06:00 [place] # (Auto) 0.94 K/uL (0.11-0.59) H 11/10/18 06:00 Eos # (Auto) 0.00 K/uL (0-0.5) 11/10/18 06:00 Baso # (Auto) 0.01 K/uL (0-0.2) 11/10/18 06:00 ESR 34 mm/hr (0-21) H 10/15/18 11:08 PT 11.1 Seconds (9.0-12.0) 10/15/18 11:08 INR 1.1 (0.9-1.1) 10/15/18 11:08 APTT 25.9 Seconds (21.0-31.0) 10/15/18 11:08 PTT Ratio 1.0 10/15/18 11:08 Sodium 142 mmol/L (136-145) 11/10/18 06:00 Potassium 4.5 mmol/L (3.5-5.1) 11/10/18 06:00 Chloride 112 mmol/L (98-107) H 11/10/18 06:00 Carbon Dioxide 26 mmol/L (21-32) 11/10/18 06:00 Anion Gap 4.0 (3-11) 11/10/18 06:00 BUN 23 mg/dl (7-18) H 11/10/18 06:00 Creatinine 1.07 mg/dl (0.6-1.2) 11/10/18 06:00 Est Cr Clr Drug Dosing 42.7 ml/min 11/10/18 06:00 Est GFR ( Amer) 60.9 11/10/18 06:00 Est GFR (Non-Af Amer) 52.6 11/10/18 06:00 BUN/Creatinine Ratio 21.9 (10-20) H 11/10/18 06:00 Glucose 116 mg/dl (70-99) H 11/10/18 06:00 Estimat Average Glucose 117 mg/dl 10/15/18 11:08 Hemoglobin A1c 5.7 % (4.5-5.6) H 10/15/18 11:08 Calcium 8.1 mg/dl (8.5-10.1) L 11/10/18 06:00 C-Reactive Protein 0.31 mg/dl (0-0.29) H 10/15/18 11:08 Urine Color Yellow 10/15/18 10:30 Urine Appearance Turbid (Clear) H 10/15/18 10:30 Urine pH 5.0 (4.5-7.5) 10/15/18 10:30 Ur Specific [place] 1.028 (1.000-1.030) 10/15/18 10:30 Urine Protein Trace (Negative) H 10/15/18 10:30 Urine Glucose (UA) Negative (Negative) 10/15/18 10:30 Urine Ketones Trace (Negative) H 10/15/18 10:30 Urine Blood Negative (Negative) 10/15/18 10:30 Urine Nitrite Positive (Negative) H 10/15/18 10:30 Urine Bilirubin Negative (Negative) 10/15/18 10:30 Urine Urobilinogen Negative (Negative) 10/15/18 10:30 Ur Leukocyte Esterase 3+ (Negative) H 10/15/18 10:30 Urine WBC (Auto) >30 /hpf (0-5) H 10/15/18 10:30 Urine RBC (Auto) 5-10 /hpf (0-4) H 10/15/18 10:30 U Hyaline Cast (Auto) 5-10 /lpf (0-5) H 10/15/18 10:30 U Epithel Cells (Auto) >30 /lpf (0-5) H 10/15/18 10:30 Urine Bacteria (Auto) 4+ (Negative) H 10/15/18 10:30 Blood Type O Positive 10/15/18 11:08 Antibody Screen NEGATIVE 10/15/18 11:08
[2018-11-10] MEDS ORDERED: predniSONE 5 MG TAB PO SCH (09:00)
[2018-11-10] MEDS ORDERED: MULTIVITAMIN TAB PO SCH (09:00)
[2018-11-10] MEDS: DOCUSATE SODIUM 100 MG CAP PO SCH (09:00)
[2018-11-10] MEDS ORDERED: ASPIRIN 325 MG ECTAB PO SCH (09:00)
[2018-11-10] MEDS: OXYBUTYNIN CHLORIDE 5 MG TAB PO SCH (09:01)
[2018-11-10] MEDS: PANTOprazole 40 MG TAB PO SCH (09:02)
[2018-11-10] MEDS: GABAPENTIN 100 MG CAP PO SCH ×2 (09:02→13:56)
[2018-11-10] MEDS ORDERED: CeleBREX 200 MG CAP PO SCH (21:00)
[2018-11-10] MEDS ORDERED: predniSONE 1 MG TAB PO SCH (21:00)
--- NOTE | 2018-11-10 21:42 | Discharge Summary ---
Date of Service November 10, 2018 Admission HPI Per Admitting Provider The patient is a 68 year old female who presents with complaints of recurrent instability of left total hip. Atraumatic hip dislocation in September 29, 2018 and 5 weeks prior when vacationing in [place]. The patient has failed outpatient conservative treatments to this point which included PT and bracing. The patient's pain and limited function have progressed to the point where they severely hinder their activities of daily living and they no longer tolerate exercise programs. Inflammatory labs and bone scan negative for infectious process or loosening. They are requesting to proceed with revision total hip replacement surgery. Principal Diagnosis Revision left total hip, head and liner exchange Discharge Exam LLE NVSI +EHL/FHL/TA/GS SILT grossly, +2 DP pulse, compartments soft NT, dressing cdi. 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 The patient's symptoms have progressed to the point where it has been difficult to perform even normal activities of daily living. I indicated the patient for a revision left total hip arthroplasty, head and liner exchange, the risks, benefits and complications of the procedure include but not limited to infection, bleeding, damage to bone, nerves, vessels, surrounding soft tissue, may develop blood clots, loss of function, leg length d iscrepancy, dislocation, failure of the components, loosening of the components, the need for additional surgery and . The patient wished to proceed with surgery at this time and informed consent was obtained. Hospital Course: On 11/09/18 the patient was taken to the operating room, adequate anesthesia administered and underwent a revision left total hip arthroplasty, head and liner exchange. The patient tolerated the procedure well and was taken to the PACU in stable condition. Post-operatively the patient was started on a DVT ppx medication and given appropriate IV antibiotics. Consults were placed to physical therapy, occupational therapy and case management. On POD#1, the patient did well overnight and their pain was well controlled. Labs were drawn and the Hgb was 8.8. The patient progressed well with PT. Dressing was clean, dry and intact. The patients hospital stay was relatively uneventful and they were deemed stable by the orthopedic team and consultants to be discharged home with on 11/10/18. Discharge Instructions: Upon discharge the patient may weight bear as tolerates through their operative extremity. They were instructed to keep the incision clean and dry at all times. Posterior hip precautions were reinforced. The patient may shower but should not submerge the incision, avoid bathing, pools and hot tubes. The patient was given a script for pain medication and should take as instructed. The patient was given a script for DVT ppx ASA 325mg BID and should take as directed. The patient was instructed to not drive or travel for long distances until cleared to do so. If the patient develops any symptoms of fevers, chills, nausea, vomiting, increased redness, swelling, pain or drainage from the surgical site, they should notify the office and/or proceed to the nearest emergency room. The patient should follow up in 10-14 days after surgery for their routine post-operative follow-up appointment and should call the office to confirm the date and time. POD 1 Status post revision left total hip arthroplasty, head and liner exchange -Ancef x24, then will continue home chronic p.o. antibiotics -DVT prophylaxis SCDs, teds, ASA twice daily -Weight-bear as tolerated left lower extremity -Posterior hip precautions -PT/OT -Labs as noted above -RAreceived stress dose preoperatively, continue 25 mg IV every 8 hours x24 hours, then will return to patient's home dose. -DC planning home with home health Total Time Total Time Spent Total Time Spent (In Minutes): >60 minutes Total Time Includes: Examination of the Patient, Discharge Planning, Medication Reconciliation and Communication With Other Providers Discharge Plan Discharge Items Patient Disposition: Home - Home Health Services Reason For Visit: Left Hip Dislocation Discharge Diagnosis: Left Hip Dislocation/Instabilty Discharge Goals: Decrease discomfort, Improve function, Increase independence and Therapeutic intervention Activity: Per 'Additional Instructions' section Lifting: Wait until after follow-up appointment Bathing Comment: No bathing, showers or pools Sexual Activity: Wait until after follow-up appointment Exercise/Sports: Wait until after follow-up appointment Driving/Machine Use Comment: No driving till cleared by you surgeon Weightbearing: Left weightbearing Weightbearing Comment: as tolerated with walker Non-emergency contact: Primary Care Provider and Surgeon Call non-emergency contact if: you have any medication questions, your symptoms worsen, your pain is not controlled, your pain is worsening, your pain is unusual for you, your pain is concerning for you, you have a fever, your temperature is above 101, your wound has increased redness, your wound has increased drainage and your wound pain has increased Follow-up/Referrals: Sylvia Nails MD [Primary Care Provider] - Diet: Regular Addtl Provider Instructions: ACTIVITY RECOMMENDATIONS: SELF CARE INSTRUCTIONS AFTER TOTAL HIP REPLACEMENT Until the incision and soft tissues around your hip have healed, there is a possibility that the hip prosthesis could dislocate. A. Observe the following precautions to prevent dislocation: 1. Don't bend your hip greater than 90 degrees. 2. Avoid crossing your legs or ankles while standing or lying. 3. Sit with your feet placed 6 inches apart. 4. When sitting, keep your knees below your hips. Sit on a firm surface, avoid deep, soft chairs and couches. Use an elevated toilet seat in the bathroom. 5. Don't bend over at the waist. Use a long handled shoehorn and a sock aid to help you put on your shoes and socks. A quickbooks bookkeeper can help you pickle processor objects that are too high or too low to reach. 6. Keep car riding to a minimum for at least one month after surgery. B. Your balance may be shaky for a while. Use crutches or a walker until directed by your doctor. C. Use hand rails when walking on stairs. D. Wear low heeled shoes with non-slip soles. E. Be sure that your floors are free of things that could trip you - throw rugs, electrical cords, small objects. Avoid wet and waxed floors, especially with crutches and canes. F. Try to walk several times a day with rest periods between. G. Continue with all the exercises taught to you in the hospital. Again, make walking a part of your daily routine. SPECIAL CARE INSTRUCTIONS: VERY IMPORTANT TO READ AND REVIEW A. You may still be at risk for phlebitis and blood clots. 1. Wear surgical stockings (JAMAAL hose) for 2 weeks after surgery to improve circulation and reduce swelling. 2. Take Aspirin 325mg twice daily for 4 weeks or as directed by your doctor. This is your blood thinner. 3. High risk patients may be prescribed a stronger blood thinner if necessary. 4. If you are on Coumadin normally, your family doctor/cooler worker should monitor your blood work. Expect a phone call the day of or the day after bloodwork is drawn to adjust your dosage. B. You must take antibiotics before having dental work, bladder, bowel and other surgery. Your doctor will provide you with a permanent card to carry describing precautions. C. Call [facility] if you have a fever, redness or swelling around the incision, cloudy drainage from incision, or sudden increase in pain in your hip, not relieved by your regular pain medication. D. Please call the office at if you have any concerns or questions about your operation or recovery. * YOU MAY SHOWER, NO TUB BATHS UNTIL CLEARED BY YOUR DOCTOR. * WEAR JAMAAL HOSE 20 HOURS PER DAY FOR 2 WEEKS. * YOU SHOULD USE A WALKER OR CRUTCHES FOR 2-4 WEEKS. THIS WILL HELP PREVENT STRAIN ON YOUR HIP MUSCLE AND ALLOW IT TO HEAL PROPERLY. YOU MAY WEAN TO A CANE TOLERATED. * MOST PATIENTS WILL HAVE HOME NURSING FOR THERAPY. IF YOU DECIDE TO DO OUTPATIENT PHYSICAL THERAPY, PLEASE SCHEDULE THIS 3 TIMES PER WEEK. * Silverlon- This is a large adhesive bandage that contains silver ions. This helps your incision heal by fighting off bacteria and protecting it from the outside environment. You are permitted to shower with this dressing. This will remain on your incision for 7 days and then should be removed. Some visible blood or drainage through the dressing window is normal. If there is significant drainage or leaking noted before the 7 days notify your doctor's office immediately. Once removed, keep incision clean and dry. If there is any drainage or redness noted, please call your surgeon. . FOLLOW UP VISIT: If appointment is not already scheduled: Please call [facility] to make a follow-up appointment for 2 weeks after your surgery at . Prescriptions: New aspirin 325 mg Tablet,Delayed Release (Dr/Ec) 325 mg PO BID 28 Days Qty: 56 RF: 0 celecoxib [Celebrex] 200 mg Capsule 200 mg PO BID PRN (Reason: pain) Qty: 28 RF: 0 oxycodone 5 mg Tablet 5 mg PO Q6H MDD 6 tabs PRN (Reason: pain) Qty: 30 RF: 0 sennosides [Senokot] 8.6 mg Tablet 17.2 mg PO HS PRN (Reason: constipation) Qty: 28 RF: 0 acetaminophen [Tylenol Extra Strength] 500 mg Tablet 1,000 mg PO Q8 PRN (Reason: fever or pain) Qty: 90 RF: 0 Continued sennosides [senna] 8.6 mg Tablet 17.2 mg PO HS RF: 0 prednisone 5 mg Tablet 5 mg PO QAM RF: 0 prednisone 1 mg Tablet 1 mg PO PM RF: 0 gabapentin 100 mg Capsule 100 mg PO TID RF: 0 oxybutynin chloride 5 mg Tablet 1 tab PO BID RF: 0 Probiotic 3 billion cell Capsule 3,000 mmu cells PO QAM RF: 0 Macuvite Eye Care 7,160 unit-113 mg-100 unit Tablet 1 tab PO QAM RF: 0 Calcium 600 + D(3) 600 mg calcium- 200 unit Capsule 1 tab PO BID RF: 0 omeprazole 20 mg capsule,delayed release(DR/EC) 20 mg PO BID RF: 0 cholecalciferol (vitamin D3) [Vitamin D3] 1,000 unit Tablet 1,000 unit PO BID RF: 0 cefadroxil 500 mg Capsule 500 mg PO QAM RF: 0 cranberry 500 mg Capsule 500 mg PO HS RF: 0 biotin 1,000 mcg Tablet,Chewable 2,000 mcg PO HS RF: 0 Discontinued hydrocodone-acetaminophen 5-325 mg Tablet 1 tab PO UD PRN (Reason: Pain) RF: 0 hydroxychloroquine [Plaquenil] 200 mg Tablet 200 mg PO BID RF: 0 leflunomide 20 mg tablet 20 mg PO QAM RF: 0 naproxen 500 mg Tablet 500 mg PO BID RF: 0 Stand-Alone Forms: [facility] Discharge Orders: Discharge Order (Routine); Ordered 11/10/18 Ordered By: Ihsan Vela Admission Data Admit Date/Time: 11/09/18 12:36 Attending Provider: Ihsan Vela Admit Provider: Ihsan Vela Primary Care Provider: Sylvia Nails Service: Surgical Services Other Interventions: Discharge Summary Assessment (RN) Last Done: 11/10/18 16:15 DC Date/Time DO NOT enter until pt leaves facility: 11/10/18 16:15
--- NOTE | 2018-11-13 14:25 | Operative Report ---
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 Atraumatic hip dislocation in September 29, 2018 and 5 weeks prior when vacationing in [place]. The patient has failed outpatient conservative treatments to this point which included PT and bracing. The patient's pain and limited function have progressed to the point where they severely hinder their activities of daily living and they no longer tolerate exercise programs. Inflammatory labs and bone scan negative for infectious process or loosening. They are requesting to proceed with revision total hip replacement surgery. I have indicated the patient for revision left total hip replacement, head and liner, possible revision acetabular component. The risks, benefits and complications of surgery were explained to the patient which include but not limited to infection, acute blood loss, DVT/PE, injury to nerves, vessels, bone, soft tissue, arthrofibrosis, chronic pain, failure of the prosthesis, hip dislocation, leg length discrepancy, need for additional surgery, cardiac and pulmonary events and . The patient wished to proceed with surgery and i nformed consent was obtained at this time. We will plan for ASA BID post- operatively for DVT prophylaxis. Upon discharge the patient will be discharged home with home health services. Appropriate clearances by PCP, Rheum, ID were obtained. The patients RA drugs were stopped two weeks prior, will restart two weeks post surgery. Patient to continue corticosteroids, will require stress dose be given pre-surgery, post surgery will give hydrocortisone 25mg IV @ 8 x 24 hours, then return to her regular dose. Patients chronic suppressive PO abx, cefadroxil Q am will be restarted post operatively. +UTI treated by PCP preoperatively, patient asymptomatic at the time of surgery. Description of Procedure Following induction of adequate spinal anesthesia, the patient was transferred to the OR table and placed in lateral decubitus position with right hip down. The left hip was prepped and draped in the typical sterile fashion and a po sterolateral/Janice-Langenbeck incision was made. Subcutaneous tissue was sharply dissected. Electrocautery and Aquamantys was utilized for hemostasis. The fascia was incised throughout the length of the wound and retracted with the Charnley retractor. The bursa was taken down and the short external rotators and capsule were identified and tagged with two #1 Vicryl sutures. The short external rotators and capsule were divided from the posterior aspect of the femur using electrocautery. Both external rotators and posterior capsule were swept posterior and protected, along with protecting the sciatic nerve. Total hip prosthesis was identified. Surrounding soft tissue was clean appearing. There was no signs of metallosis or infection. Meticulous removal of intra- articular scar tissue was performed with bovie. The hip prosthesis was dislocated by flexion and internal rotation in a controlled manner. The femoral head was removed from the trunion, which was clean and was without signs of wear. The femoral stem stability assessed and found to be stable without signs of loosening. Next, exposure of the acetabulum was obtained. Additional scar tissue removal and debridement of the intra-articular soft tissue was performed. Utilizing the liner extraction tool the liner was removed. The polyethylene liner demonstrated superior wear. Acetabular cup stability was assessed and found to be stable and without signs of loosening. Next, a 50mm trial liner was inserted and locked into place. A 32+4 femoral head was placed onto the stem and a trial reduction was carried out. The hip was found to be stable in all degrees of rotation with hip flexion and extension with no impingement and leg lengths were equal. The hip was dislocated once more, trial components were removed and access to the acetabulum was re- established. The trial liner was removed and the cup was irrigated to ensure all debris was removed. A final 50 mm 20 degree acetabular liner was inserted and properly seated. Access to the proximal femur was once more gained and the final 32+4 mm femoral head was impacted into place and the hip was reduced. Range of motion was checked once again and found to be stable. The wound was copiously irrigated with sterile saline solution with bacitracin. The florecita- incisional soft tissue was injected utilizing [place] ortho mix which includes a combination of Ropivicaine 0.5% 150mg, Bupivicaine 0.5%/Epinephrine 1:200,000 30ml, Toradol 30mg, Dexamethasone 4mg, Ketamine 10mg, Clonidine 100mcg and NSS 30ml solution. The external rotators and capsule were repaired to the greater trochanter through bone tunnels using #5 FiberWire. The fascia was closed using #1 Vicryl, subcutaneous tissue was closed using 2-0 Vicryl, and skin was closed with jorge. Sterile dressings were applied which included silverlon. A abduction pillow was placed between the legs. The patient tolerated the procedure well and was transported to PACU in stable c ondition. Due to the complex nature of the procedure, the entire surgery was performed with the operational assistance of Theron Palafox PA-C. The cement tester assistant, under direct supervision, was involved in the actual performance of all aspects of the surgical procedure including patient positioning, hemostasis, tissue retraction, instrument management and wound closure. I attest to the content of the Intraoperative Record and any orders documented therein. Any exceptions are noted below.
== END 2018-11-10 16:15 | disposition home health service (06) | DRG 467 ==
LOC: ASU 08:01 → 3E 12:36

== ENCOUNTER 2019-06-07 06:54 | Inpatient (IN) ==
--- NOTE | 2019-05-17 16:17 | PAT Medication Instructions ---
Medication Instructions Date of Service May 17, 2019 Home Medications Medication Instructions Recorded acetaminophen [Tylenol Extra 1,000 mg PO Q8 PRN #90 tab 11/10/18 Strength] oxybutynin chloride 5 mg tablet 5 mg PO BID #180 tab 12/10/18 leg brace #1 ea 02/10/19 Probiotic 3,000 mmu cells PO QAM 03/30/18 [History Confirmed 05/11/19] gabapentin 100 mg PO TID 03/30/18 [History Confirmed 05/11/19] prednisone 1 mg PO PM 03/30/18 [History Confirmed 05/11/19] prednisone 5 mg PO QAM 03/30/18 [History Confirmed 05/11/19] sennosides [senna] 17.2 mg PO HS 03/30/18 [History Confirmed 05/11/19] cefadroxil 500 mg PO QAM 09/29/18 [History Confirmed 05/11/19] cranberry 500 mg PO HS 09/29/18 [History Confirmed 05/11/19] omeprazole 20 mg PO BID 09/29/18 [History Confirmed 05/11/19] Macuvite Eye Care 1 tab PO QAM 10/08/18 [History Confirmed 05/11/19] acetaminophen [Tylenol Extra Strength] 1,000 mg PO Q8 PRN oxybutynin chloride 5 mg tablet 5 mg PO BID #180 tab 12/10/18 [Rx Confirmed 05/11/19] hydroxychloroquine 200 mg tablet 200 mg PO BID tab 01/13/19 [History Confirmed 05/11/19] naproxen 500 mg tablet 500 mg PO BID 01/13/19 [History Confirmed 05/11/19] leflunomide 20 mg tablet 20 mg PO QAM 01/20/19 [History Confirmed 05/11/19] calcitriol 0.5 mcg capsule 0.5 mcg PO QPM 02/10/19 [History Confirmed 05/11/19] Vicodin 10 - 325 mg PO TID 05/11/19 [History Confirmed 05/11/19] Continue as directed cefadroxil 500 mg PO QAM 09/29/18 [History Confirmed 05/11/19] ASK your surgeon for instructions naproxen 500 mg tablet 500 mg PO BID 01/13/19 [History Confirmed 05/11/19] ASK your prescriber and surgeon hydroxychloroquine 200 mg tablet 200 mg PO BID tab 01/13/19 [History Confirmed 05/11/19] leflunomide 20 mg tablet 20 mg PO QAM 01/20/19 [History Confirmed 05/11/19] STOP taking 2 weeks before surgery (or as soon as possible if surgery is within 2 weeks) cranberry 500 mg PO HS 09/29/18 [History Confirmed 05/11/19] Macuvite Eye Care 1 tab PO QAM 10/08/18 [History Confirmed 05/11/19] DO NOT take the morning of surgery Probiotic 3,000 mmu cells PO QAM 03/30/18 [History Confirmed 05/11/19] oxybutynin chloride 5 mg tablet 5 mg PO BID #180 tab 12/10/18 [Rx Confirmed 05/11/19] Take morning of surgery With a small sip of water, OTHERWISE NOTHING TO EAT OR DRINK AFTER MIDNIGHT: gabapentin 100 mg PO TID 03/30/18 [History Confirmed 05/11/19] prednisone 5 mg PO QAM 03/30/18 [History Confirmed 05/11/19] omeprazole 20 mg PO BID 09/29/18 [History Confirmed 05/11/19] acetaminophen [Tylenol Extra Strength] 1,000 mg PO Q8 PRN (okay to take up to 4 hours prior to surgery if needed) Vicodin 10 - 325 mg PO TID (okay to take up to 4 hours prior to surgery if needed) Take evening before surgery gabapentin 100 mg PO TID 03/30/18 [History Confirmed 05/11/19] prednisone 1 mg PO PM 03/30/18 [History Confirmed 05/11/19] sennosides [senna] 17.2 mg PO HS 03/30/18 [History Confirmed 05/11/19] omeprazole 20 mg PO BID 09/29/18 [History Confirmed 05/11/19] acetaminophen [Tylenol Extra Strength] 1,000 mg PO Q8 PRN (if needed) oxybutynin chloride 5 mg tablet 5 mg PO BID #180 tab 12/10/18 [Rx Confirmed 05/11/19] calcitriol 0.5 mcg capsule 0.5 mcg PO QPM 02/10/19 [History Confirmed 05/11/19] Vicodin 10 - 325 mg PO TID 05/11/19 [History Confirmed 05/11/19] Other Notes If you have any questions please call us at [phone] or [phone] or [phone] or [phone]
--- NOTE | 2019-05-18 13:56 | Anesthesiology Consultation ---
Date of Service May 18, 2019 Assessment & Plan (1) Encounter for pre-operative examination: - Awaiting review preop testing (labs). - Awaiting surgeon-ordered PCP clearance ([facility]). - Right knee joint replacement infection on abx with small open wound per patient: No chlorhexidine wipes given at [facility] given open wound Chart Review Chart Review: Patient seen in Pre Admission Testing Teaching & Discussion Pre-Anesthesia Teaching/Discussion Notes: Instructed NPO after midnight before surgery,except medications with 15 cc of water. Medication instructions provided according to the [facility] guidelines. History Surgery Operation Date: 06/07/19 11:05 Proposed Procedures p Right Total Knee Arthroplasty Explant, Incision and Drainage, Antibiotic Cement Spacer - Ihsan Vela DO Height/Weight Height: 5 ft 3 in Weight: 60.3 kg Allergies Allergy/AdvReac Type Severity Reaction Status Date / Time dalbavancin Allergy Severe hypotension, Verified 05/11/19 15:37 flushing, tachypnea Medications Home Medications Medication Instructions Recorded Confirmed Last Taken Probiotic 3,000 mmu cells PO QAM 03/30/18 05/11/19 11/08/18 07:00 gabapentin 100 mg PO TID 03/30/18 05/11/19 11/09/18 06:30 prednisone 1 mg PO PM 03/30/18 05/11/19 11/08/18 17:00 prednisone 5 mg PO QAM 03/30/18 05/11/19 11/09/18 06:30 sennosides [senna] 17.2 mg PO HS 03/30/18 05/11/19 11/08/18 22:00 cefadroxil 500 mg PO QAM 09/29/18 05/11/19 11/08/18 07:00 cranberry 500 mg PO HS 09/29/18 05/11/19 10/26/18 omeprazole 20 mg PO BID 09/29/18 05/11/19 11/09/18 06:30 Mac[facility]ite [facility] 1 tab PO QAM 10/08/18 05/11/19 10/26/18 acetaminophen [Tylenol Extra 1,000 mg PO Q8 PRN #90 tab 11/10/18 05/11/19 Unknown Strength] oxybutynin chloride 5 mg tablet 5 mg PO BID #180 tab 12/10/18 05/11/19 Unknown hydroxychloroquine 200 mg tablet 200 mg PO BID tab 01/13/19 05/11/19 Unknown naproxen 500 mg tablet 500 mg PO BID 01/13/19 05/11/19 Unknown leflunomide 20 mg tablet 20 mg PO QAM 01/20/19 05/11/19 Unknown calcitriol 0.5 mcg capsule 0.5 mcg PO QPM 02/10/19 05/11/19 Unknown leg brace #1 ea 02/10/19 05/11/19 Unknown Vicodin 10 - 325 mg PO TID 05/11/19 05/11/19 Unknown Past Medical History Medical History DDD (degenerative disc disease) GERD (gastroesophageal reflux disease) History of Hodgkin's lymphoma 2003/PCP under surveillance History of oral cancer s/p tongue excision left side (no chemo/XRT 2013) RA (rheumatoid arthritis) on chronic steroids Exercise / Class Metabolic Activity III < 4 Walking/Shop/Light housework Past Family History Family History Other Family history non-contributory Past Surgical History Surgical History Cancer (Chronic) TONGUE EXCISION LEFT SIDE H/O foot surgery (Resolved) TOES X MULTIPLE H/O parathyroidectomy (Resolved) History of carpal tunnel release (Resolved) RIGHT History of hip surgery R/L REVISION History of total hip arthroplasty (Resolved) R/L History of total knee replacement (Resolved) R/L Status post knee surgery REVISION RIGHT KNEE 02/2016 Past Anesthesia History No Hx of Anesthesia Complications and No Family Hx of Anesthesia Complications History of PONV No Hx of PONV Social History Smoking Status: Never smoker Do You Dip or Chew Tobacco: No Hx Alcohol Use: No Hx Substance Use: No substance use type: does not use Review of Systems Patient denies chest pain, shortness of breath, dyspnea on exertion, cough, wheezing, palpitations. Physical Exam Vital Signs VITALS BP 128/57 P 76 TEMP 98.2 SP02 93%RA RESP 16 PHYSICAL Mildly decreased cervical extension Full TMJ range of motion. TMD 2.5 finger breaths Mallampati Score 3 Dentition: intact Lungs: clear throughout to auscultation Cardiac: regular rate and rhythm, no murmurs noted Spine: normal Carotid arteries: negative bruit Extremities: no edema Slight asymmetry of tongue 2/2 h/o lesion excision Testing Electrocardiogram Date: 10/15/18 Findings: + NSR @ (78) Chest X-Ray Date: 10/15/18 Findings: + NAD Cervical Spine Date: 10/15/18 IMPRESSION: 1. Multilevel degenerative changes as above. 2. Grade 1 anterolisthesis C3 on C4 is slightly worsened on flexion. Correlate clinically to exclude instability. 3. Fixed anterolisthesis C4 on C5 is unchanged throughout the study. 4. No acute fracture.
[2019-05-18 15:00] LABS: Basophils # (auto) 0.05 K/uL (0-0.2); Basophils % (auto) 0.6 %; Eosinophils # (auto) 0.14 K/uL (0-0.5); Eosinophils % (auto) 1.6 %; Hematocrit (blood only) 31.5 % (37-47); Hemoglobin 9.2 g/dL (12.0-16.0); Immature Granulocytes # (auto) 0.04 K/uL (0.00-0.02); Immature Granulocytes % (auto) 0.5 %; Lymphocytes # (auto) 1.16 K/uL (1.2-3.4); Lymphocytes % (auto) 13.1 %; Mean Corpuscular Hemoglobin 21.6 pg (25-34); Mean Corpuscular Hgb Conc 29.2 g/dL (32-36); Mean Corpuscular Volume 74.1 fL (80-100); Mean Platelet Volume 8.6 fL (7.4-10.4); Monocytes # (auto) 0.51 K/uL (0.11-0.59); Monocytes % (auto) 5.8 %; Neutrophils # (auto) 6.93 K/uL (1.4-6.5); Neutrophils % (auto) 78.4 %; Platelet Count 427 K/uL (130-400); RDW Coefficient of Variation 19.7 % (11.5-14.5); RDW Standard Deviation 53.5 fL (36.4-46.3); Red Blood Count 4.25 M/uL (4.2-5.4); White Blood Count 8.83 K/uL (4.8-10.8)
[2019-05-18 15:08] LABS: Appearance Urine Clear (Clear); Bilirubin Urine Negative (Negative); Blood Urine Negative (Negative); Color Urine Yellow; Glucose Urine UA Negative (Negative); Ketones Urine Negative (Negative); Leukocyte Esterase Urine Negative (Negative); Nitrite Urine Negative (Negative); Protein Urine Negative (Negative); Specific Gravity Urine 1.017 (1.000-1.030); Urobilinogen Urine Negative (Negative); pH Urine 5.5 (4.5-7.5)
[2019-05-18 15:10] LABS: Estimated Average Glucose 120 mg/dl; Hemoglobin A1C 5.8 % (4.5-5.6)
[2019-05-18 15:12] LABS: INR 1.1 (0.9-1.1); Partial Thromboplastin Time 26.1 Seconds (21.0-31.0); Prothrombin Time 10.9 Seconds (9.0-12.0)
[2019-05-18 15:46] LABS: Schistocytes 1+
[2019-05-18 15:47] LABS: Albumin Level 3.1 gm/dl (3.4-5.0); Creatinine Clr Calc Pharmacy 51.6 ml/min; Est GFR (African American) 81.6; Est GFR (Non-African American) 70.4; Potassium 4.4 mmol/L (3.5-5.1)
--- NOTE | 2019-06-06 20:44 | History & Physical Report ---
Date of Service June 06, 2019 Assessment & Plan (1) Infection of total right knee replacement: I have indicated the patient for explant right total knee and placement of antibiotic cement spacer. The risks, benefits and complications of surgery were explained to the patient which include but not limited to new or recurrent infections, wound complications and need for additional surgery for closure, acute blood loss, DVT/PE, injury to nerves, vessels, bone, soft tissue, arthrofibrosis, chronic pain, failure of the prosthesis, knee dislocation, leg length discrepancy, need for additional surgery, cardiac and pulmonary events and . The patient wished to proceed with surgery and informed consent was obtained at this time. We will plan for lovenox post-operatively for DVT prophylaxis. Upon discharge the patient will be discharged home with home health services. Appropriate clearances by PCP and ID were obtained. History of Present Illness Chief Complaint: Right knee chronic periprosthetic joint infection Primary Care Provider: Sylvia Nails MD The patient is a 68 year old female who presents with chronic hx for right knee PJI. The patient underwent primary right TKA 02/[address] Cheung, developed post-operative infection and underwent I+D with poly exchange 02/[address] Cheung and IV cubacin. Intra-operative cultures were positive for MSSA. Two weeks later the patient had subsequent wound dehiscence which was treated conservative with wound care and chronic suppressive abx. The patient did well for a time however the patient developed a draining sinus tract from the same area as before in November 2018. The patient has failed outpatient conservative treatments to this point which included wound care, chronic suppressive abx and immobilization. The patient has synovial fluid draining from her sinus tract which measures roughly 2cm x 2cm. A knee aspiration was performed which had a cell count of 564, negative cultures and GS . The patient's pain and limited function have progressed to the point where they severely hinder their activities of daily living and they no longer tolerate conservative treatments. They are requesting to proceed with explant right total knee arthroplasty and placement of antibiotic cement spacer. Allergies Allergy/AdvReac Type Severity Reaction Status Date / Time dalbavancin Allergy Severe hypotension, Verified 05/30/19 10:53 flushing, tachypnea Home Medications Home Medications Medication Instructions Recorded Confirmed Type Probiotic 3,000 mmu cells PO QAM 03/30/18 05/30/19 History gabapentin 100 mg PO TID 03/30/18 05/30/19 History prednisone 1 mg PO PM 03/30/18 05/30/19 History prednisone 5 mg PO QAM 03/30/18 05/30/19 History sennosides [senna] 17.2 mg PO HS 03/30/18 05/30/19 History cefadroxil 500 mg PO QAM 09/29/18 05/30/19 History cranberry 500 mg PO HS 09/29/18 05/30/19 History omeprazole 20 mg PO BID 09/29/18 05/30/19 History [facility] 1 tab PO QAM 10/08/18 05/30/19 History acetaminophen [Tylenol Extra 1,000 mg PO Q8 PRN #90 tab 11/10/18 05/30/19 Rx Strength] oxybutynin chloride 5 mg tablet 5 mg PO BID #180 tab 12/10/18 05/30/19 Rx hydroxychloroquine 200 mg tablet 200 mg PO BID tab 01/13/19 05/30/19 History leflunomide 20 mg tablet 20 mg PO QAM 01/20/19 05/30/19 History calcitriol 0.5 mcg capsule 0.5 mcg PO QPM 02/10/19 05/30/19 History leg brace #1 ea 02/10/19 05/30/19 Rx hydrocodone 10 mg-acetaminophen 1 tab PO QID PRN 05/18/19 05/30/19 History 325 mg tablet naproxen 500 mg tablet 500 mg PO BID PRN 05/18/19 05/30/19 History ascorbate calcium (vitamin C) PO 05/30/19 05/30/19 History Past Med/Surg History Medical History DDD (degenerative disc disease) GERD (gastroesophageal reflux disease) History of Hodgkin's lymphoma 2003/PCP under surveillance History of oral cancer s/p tongue excision left side (no chemo/XRT 2013) RA (rheumatoid arthritis) on chronic steroids Surgical History Cancer (Chronic) TONGUE EXCISION LEFT SIDE H/O foot surgery (Resolved) TOES X MULTIPLE H/O parathyroidectomy (Resolved) History of carpal tunnel release (Resolved) RIGHT History of hip surgery R/L REVISION History of total hip arthroplasty (Resolved) R/L History of total knee replacement (Resolved) R/L Status post knee surgery REVISION RIGHT KNEE 02/2016 Family History Other Family history non-contributory Social History Preferred Language: Irish Communication Ability: Effective Visual Impairment: Limited 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: Normal Production Corrugator Required: No Beliefs That Will Affect Care: None marital status: Current Living Situation: Spouse current occupational status: retired Other Information That Helps Us Care for You: No Feels Safe at Home: Yes Safety Concerns: Feels Safe At This Time Smoking Status: Never smoker Do You Dip or Chew Tobacco: No ; Second Hand Exposure: No ; Hx Alcohol Use: No Hx Substance Use: No Childhood Exposure to Second-Hand Smoke: Yes Seatbelt Use: always Review of Systems Review of Systems: All systems reviewed & are unremarkable except as noted in HPI & below Constitutional: as per Subjective / HPI Physical Exam Physical Exam: RLE NVSI +EHL/FHL/TA/GS SILT grossly, +2 DP pulse, compartments soft NT, 2cm x 2cm draining sinus tract middle 1/3rd incision, synovial fluid draining from sinus tract. Constitutional: WD/WN, vitals as above Eyes: PERRL, conjunctivae normal, anicteric sclerae ENMT: external ear and nose normal, oropharynx normal Neck: trachea midline, no thyromegaly Respiratory: normal respiratory effort, lungs clear to auscultation Cardiovascular: RRR, no murmur, no edema Gastrointestinal (Abdomen): normal bowel sounds, soft, nontender, no hepatosplenomegaly Musculoskeletal: no cyanosis or clubbing, extremities motor strength 5/5 Skin: no rashes, warm and dry Neurologic: patellar DTR's 2+ bilat, sensation intact Psychiatric: A+Ox3, euthymic affect Lymphatic: no cervical or axillary lymphadenopathy Results & Data Diagnostic Findings XR right knee demonstrates a well aligned well fixed total knee prothesis without osteolysis or osteomyelitis.
[~2019-06-07 06:54] MED LIST changes: -BUPIVACAINE 0.5 % 5 MG/1 ML PF 10ML VIAL ONE; +GABAPENTIN 300 MG CAP PO SCH; -GABAPENTIN 300 MG PO SCH; -LIDOCAINE HCL 2% 2 ML VIAL/AMP(20MG/ML) INFIL ONE; -LR 15ML/HR IV SCH; +METOCLOPRAMIDE HCL 10 MG TABLET PO SCH; -ROPIVACAINE 0.5% HCL/PF 150 MG, BUPIVACAINE 0.5% MPF 30 ML, EPINEPHrine 30MG/30ML (OR U... INFIL SCH; -TRANEXAMIC ACID 1,000 MG **IV Intra-op IV SCH; -TRANEXAMIC ACID 1,000 MG **IV Pre-op IV SCH
[2019-06-07] MEDS ORDERED: BACITRACIN INJ 50,000 UNIT VIAL ONE ×2 (07:13→08:10)
[2019-06-07] MEDS ORDERED: VANCOMYCIN HCL 1000MG/20ML VIAL ONE ×2 (07:15→11:00)
[2019-06-07] MEDS ORDERED: BUPIVACAINE 0.5 % 5 MG/1 ML PF 10ML VIAL ONE (07:19)
[2019-06-07] MEDS ORDERED: ROPIVACAINE 0.5% 5 MG/ML 30 ML VIAL ONE (07:19)
[2019-06-07] MEDS ORDERED: VANCOMYCIN CONSULT ACTIVE PRN ×2 (07:40→14:19)
--- NOTE | 2019-06-07 07:40 | History & Physical Bridge Note ---
Date of Service June 07, 2019 History & Physical Bridge Note I have examined the patient, reviewed the History & Physical and in the interval since the performance of the History & Physical I have noted the following changes of clinical significance: no changes noted
[2019-06-07] MEDS ORDERED: VANCOMYCIN HCL 1,000 MG/270 ML BAG IV SCH (07:45)
[2019-06-07] MEDS ORDERED: KETOROLAC 30 MG/ML VIAL IV PRN (08:16)
[2019-06-07] MEDS ORDERED: ATROPINE SULFATE 0.1 MG/ML 10ML SYR IV PRN (08:16)
[2019-06-07] MEDS ORDERED: HYDROmorphone INJ 1 MG/ML SYRINGE IV PRN (08:16)
[2019-06-07] MEDS ORDERED: ePHEDrine sulfate 50 MG/ML AMP IV PRN (08:16)
[2019-06-07] MEDS ORDERED: ONDANSETRON INJ 2 MG/ML 2 ML VIAL IV PRN (08:16)
[2019-06-07] MEDS ORDERED: ORTHO JOINT ANESTHETIC ONE (09:39)
[2019-06-07] MEDS ORDERED: HYDROCORTISONE SOD SUCCINATE 100 MG/2 ML VIAL ONE (09:39)
[2019-06-07] MEDS ORDERED: MIDAZOLAM HCL 1 MG/ML 2ML VIAL ONE (09:54)
[2019-06-07] MEDS ORDERED: ROPIVACAINE 0.5% HCL/PF 150 MG, BUPIVACAINE 0.5% MPF 30 ML, EPINEPHrine 30MG/30ML (OR U... INSTIL SCH (10:00)
[2019-06-07] MEDS ORDERED: PROPOFOL IV EMULSION 10 MG/ML 20 ML VIAL IV ONE ×2 (10:54→12:27)
[2019-06-07] MEDS ORDERED: fentaNYL citrate 100 MCG/2 ML VIAL ONE (11:48)
[2019-06-07] MEDS ORDERED: PHENYLEPHRINE HCL 10 MG/ML VIAL ONE (12:23)
--- NOTE | 2019-06-07 12:28 | Post Operative Brief Note ---
Immediate Post Op Note v1 Date of Surgery June 07, 2019 Pre & Post Diagnosis Operation Date: 06/07/19 09:15 Pre-Op Diagnosis: RIGHT KNEE PRESENCE OF ORTHOPEDIC JOINT IMPLANTS Post-Op Diagnosis: RIGHT KNEE PRESENCE OF ORTHOPEDIC JOINT IMPLANTS I identified the patient and participated in the time-out.: Yes Procedure Operation Date: 06/07/19 09:15 Actual Procedures p Right Total Knee Arthroplasty Explant, Incision and Drainage, Antibiotic Cement Spacer(Right) - Ihsan Vela DO Surgeon Ihsan Vela DO Environmental Field Services Technician Theron Palafox Estimated Blood Loss 400 Findings Consistent with Post-Op Diagnosis Fluids 1000 cc LR Specimens Deep cultures swabs x 3 Deep tissue synovium x 1 Deep tissue tibia x 1 Depp tissue femur x 1 Drains Chan Catheter Anesthesia Type Spinal MAC Complications none Disposition Disposition: Recovery Room Overlapping Procedure I was present for: the critical portions of procedure. I was immediately available: during the entire case. Back up surgeon: was not required during procedure.
--- NOTE | 2019-06-07 12:45 | Operative Report ---
Post Operative Report Pre & Post Diagnosis Operation Date: 06/07/19 09:15 Pre-Op Diagnosis: RIGHT KNEE PRESENCE OF ORTHOPEDIC JOINT IMPLANTS Post-Op Diagnosis: RIGHT KNEE PRESENCE OF ORTHOPEDIC JOINT IMPLANTS I identified the patient and participated in the time-out.: Yes Procedure Operation Date: 06/07/19 09:15 Actual Procedures p Right Total Knee Arthroplasty Explant, Incision and Drainage, Antibiotic Cement Spacer(Right) - Ihsan Vela DO Surgeon Ihsan Vela DO Gum Remover Theron Palafox Estimated Blood Loss 400 Findings Consistent with Post-Op Diagnosis Fluids 1000 cc LR Specimens Culture swab synovial fluid x3 Deep tissue synovium x1 Deep tissue tibia x1 Deep tissue femur x1 Drains Hemovac drain deep to fascia Anesthesia Type Spinal MAC Complications none Disposition Disposition: Recovery Room Indications The patient is a 68 year old female who presents with chronic hx for right knee PJI. The patient underwent primary right TKA 02/[address] Cheung, developed post-operative infection and underwent I+D with poly exchange 02/[address] Cheung and IV cubacin. Intra-operative cultures were positive for MSSA. Two weeks later the patient had subsequent wound dehiscence which was treated conservative with wound care and chronic suppressive abx. The patient did well for a time however the patient developed a draining sinus tract from the same area as before in November 2018. The patient has failed outpatient conservative treatments to this point which included wound care, chronic suppressive abx and immobilization. The patient has synovial fluid draining from her sinus tract which measures roughly 2cm x 2cm. A knee aspiration was performed which had a cell count of 564, negative cultures and GS . The patient's pain and limited function have progressed to the point where they severely hinder their activities of daily living and they no longer tolerate conservative treatments. They are requesting to proceed with explant right total knee arthroplasty and placement of antibiotic cement spacer. I have indicated the patient for explant right total knee and placement of antibiotic cement spacer. The risks, benefits and complications of surgery were explained to the patient which include but not limited to new or recurrent infections, wound complications and need for additional surgery for closure, acute blood loss, DVT/PE, injury to nerves, vessels, bone, soft tissue, arthrofibrosis, chronic pain, failure of the prosthesis, knee dislocation, leg length discrepancy, need for additional surgery, cardiac and pulmonary events and . The patient wished to proceed with surgery and informed consent was obtained at this time. We will plan for lovenox post-operatively for DVT prophylaxis. Upon discharge the patient will be discharged home with home health services. Appropriate clearances by PCP and ID were obtained. Description of Procedure Components used: [employer] articular antibiotic cement knee spacer molds: Tibia size 70mm M/L, Femur size 65mm M/L. Following induction of general anesthesia, a tourniquet was applied to the proximal aspect of the thigh and the patient's right leg was prepped and draped in the usual sterile manner. A timeout was performed and site gloria verified. Limb was Elevated for 5 minutes and tourniquet was inflated to 300 mmHg. The prior incision was identified and a longitudinal midline incision was made over the anterior knee. We identified a 2cm x 2cm sinus tract with hypertrophic chronic appearing fibrous tissue at the middle 1/3rd anterior midline knee incision. Subcutaneous tissue was sharply dissected down to fascia. The sinus tract traveled deep through the quadriceps tendon insertion into the knee joint. Electrocautery was used for hemostasis. Next a medial parapatellar arthrotomy was performed. Three cultures of synovial fluid was obtained. I identified thickened chronically inflamed synovial tissue deep to the fascia. Meticulous removal of hypertrophic synovium and scar tissue was removed with Bovie. Synovial tissue samples were sent for GS/culture at this time.. The patella was subluxed laterally and the knee was flexed. A vick retractor was used to expose the synovium above on the anterior aspect of the femur and removed down to bone. Next, the anterior fat pad was removed to aid in visualization. The medial face of the tibia was cleared of soft tissue first with a bovie and a hannon elevator. This tissue was retracted posteriorly using a blunt hohmann. Once adequate access was obtained to the total knee prosthesis we removed the tibial articular surface. Next we turned our attention to the femoral component and utilizing a microsagittal saw loosen the interface between the distal femur component and cement followed by flexible osteotomes. Backslapping distal femur extraction instrument was utilized to remove the distal femur, there was minimal bone loss. Meticulous removal of residual cement from the bone was performed. Tissue sample was collected from the distal femur at this timeand sent for GS/culture. Next we turned our attention to the proximal tibia and utilizing the microsagittal saw the tibial component and cement interface was disrupted followed by flexible osteotomes. There was a fair amount of osteolysis to the medial aspect of the tibial component. Utilizing to flat wide osteotomes we were able to lever the component out of the bone. Once again there was minimal bone loss. The touniquit was dropped at this time at 60 minutes. Next we meticulously removed remaining cement and cleared the distal femur proximal tibia and any remaining soft tissue. Tissue sample was collected from the proximal tibia at this timeand sent for GS/culture. We gained access to both the intramedullary tibia and femur and intramedullary membrane was scraped with curved curettes. Additional tissue samples were collected and added to the previous tibia and femur samples. Access was gained to the patella and meticulous removal of fibrous soft tissue surrounding the patella button was performed. The patella button was removed with saw and peg holes cleared of debris. There was a moderate amount of osteolysis underneath the patella button. The sinus tract involving the quad tendon was debrided with curretts. Aquamantys was utilized for any bleeders. The knee was irrigated with 3L of sterile saline solution mixed with bacitracin followed by a betadine soak for 3 minutes. The leg was elevated for 5 minutes and tourniquet inflated once again at this time. Additional irrigation with 3L of sterile saline solution mixed with bacitracin was performed. Access to the proximal tibia was once again obtained utilizing two bent hohmann retractors and the proximal tibia and distal femur were dried with lap sponges. Palacos G cement with 2 g of vancomycin per Palacos packet was used to construct cement molds as well as for cementing process. The antibiotic Cement molds were cemented into place and all excess cement was removed. Once the cement had hardened knee stability was once again assessed. The cement molds gave good fit and fill of the joint space with adequate stability at all degrees of range of motion. The knee was once more irrigated with 3L of sterile saline solution, 12 L and total for the case. Hemovac drains 2 were inserted deep to the capsule. The capsulotomy was closed with 1-0 PDS followed by subcutaneous closure with 3-0 PDS suture. Skin closure was performed using Bryanna, sterile dressings were applied which included debra, 4x4s ABDs, hmv drain sponge and ramiro wrap. The tourniquet was deflated at this time at 128 minutes total for the case.The knee was placed in a immobilizer. The patient was extubated in the OR and transported to the PACU in stable condition. Due to the complex nature of the procedure, the entire surgery was performed with the operational assistance of Theron Palafox PA-C. The learning support assistant, under direct supervision, was involved in the actual performance of all aspects of the surgical procedure including patient positioning, hemostasis, tissue retraction, instrument management and wound closure. I attest to the content of the Intraoperative Record and any orders documented therein. Any exceptions are noted below.
--- NOTE | 2019-06-07 13:22 | Anesthesiology Progress Note ---
Date of Service June 07, 2019 Anesthesia Post Procedure Vital Signs Vital Signs: Temp Pulse Pulse Resp BP BP Pulse Ox 06/07/19 13:10 103 H 15 107/56 L 100 06/07/19 13:02 36 C L 105 H 16 108/61 100 06/07/19 07:45 36.8 C 76 16 165/79 H 98 Transfer of Care Handoff Completed per policy Notes Mental Status: alert / awake / arousable Patient Amnestic to Procedure: Yes Nausea / Vomiting: adequately controlled Pain: adequately controlled Airway Patency, RR, SpO2: stable & adequate BP & HR: stable & adequate Hydration State: stable & adequate Anesthetic Complications: no major complications apparent
[2019-06-07] MEDS ORDERED: ONDANSETRON INJ 2 MG/ML 2 ML VIAL ONE (13:27)
--- NOTE | 2019-06-07 13:37 | XRay Report ---
XR knee RT 1 or 2V routine CLINICAL HISTORY: Surgical Post Op COMPARISON STUDY: Right knee 01/13/2019. FINDINGS: Interval removal of the right total knee arthroplasty which were replaced with antibiotic c ement spacers. No fracture or dislocation. Skin jorge and surgical drains are in place. IMPRESSION: Placement of antibiotic cement spacers within the right knee. Electronically signed by: Jez Mckay M.D. 06/07/2019 1:36 PM
[2019-06-07] MEDS ORDERED: METOCLOPRAMIDE HCL INJ 5 MG/ML 2 ML VIAL IV PRN (14:19)
[2019-06-07] MEDS ORDERED: MAGNESIUM HYDROXIDE SUSP 30 ML UDC PO PRN (14:19)
[2019-06-07] MEDS ORDERED: bisacodyL 10 MG SUPP PR PRN (14:19)
[2019-06-07] MEDS ORDERED: NALOXONE HCL 0.4 MG/1 ML VIAL/CARP IV PRN (14:19)
--- NOTE | 2019-06-07 14:20 | Hospitalist Consultation ---
Date of Consultation June 07, 2019 Assessment & Plan (1) Infection of total right knee replacement: - S/p surgical procedure by Dr. Vela - Pain management and bowel regimen per the primary team - Will check cbc and prp 1600 now with BP being borderling low, Follow am cbc and prp for trend - pallor on exam, no overt signs of bleeding, no BRBPR with BM - Continue NSS 100ml/hr (2) Osteoporosis, unspecified: - Continue calcitrol 0.5 mcg capsule, calcium and Vit D supplementation (3) RA (rheumatoid arthritis): - Continue hydroxychloroquine 200 mg BID, prednisone 5 mg QAm and 1 mg QPM, gabapentin 100 mg TID for pain control - Was given dexamethasone 8 mg and hydrocortisone 50 mg administered intraop, will monitor BP this afternoon to determine if needs stress dosed steroids during hospital stay (4) History of hyperparathyroidism: -stable (5) Sciatica: - Continue pain control with hydrocodone-acetaminophen, gabapentin, and naproxen (6) History of Hodgkin's lymphoma: - Hx of such in 2003 (7) History of oral cancer: - Hx of such, s/p lesion excision tongue left side (no chemo/XRT 2013) (8) Chronic reflux esophagitis: -Continue omeprazole 20 mg BID DVT ppx: jose roberto, scd on nonaffected leg, lovenox 30 mg subQ Thank you for involving us in the care of Mrs Esparza. Please do not hesitate to call with questions or concerns. Medicine service will follow along. Supervising Physician Co-Signing Physician Notes Patient seen and examined, chart reviewed, case discussed with KARINA Ling and agree with her assessment and plan as documented above History of Present Illness Reason for Consultation: Medical management Requesting Physician: Dr. Vela Attending Physician: Ihsan Vela DO History of Present Illness This is a 68 yo F with PMhx of rheumatoid arthritis, osteoarthritis, osteoporosis, gerd, sciatica, neuropathy, hyperparathyroidism and hx of left total hip replacement who presents for elective right total knee arthroplasty explant, I&D, and antibiotic cement spacer by Ihsan Vela DO on 06/07/19. The patient has been struggling with nausea since coming up from the OR. She has not vomited, and has received 2 doses of zofran however does not seem to be improving her sx. Pt just had a BM on bedpan and feels she may need to move her bowels again. She was not gotten up to use bedside commode due to borderline low BP. While at bedside her BP is improved to 115/78. She reports knee pain is present, and that she is able to feel her toes and move toes without difficulty. Sensation to light touch is intact distally on my exam. Allergies Allergy/AdvReac Type Severity Reaction Status Date / Time dalbavancin Allergy Severe hypotension, Verified 05/30/19 10:53 flushing, tachypnea Home Medications Home Medications Medication Instructions Recorded Confirmed Type Probiotic 3,000 mmu cells PO QAM 03/30/18 06/07/19 History gabapentin 100 mg PO TID 03/30/18 06/07/19 History prednisone 1 mg PO PM 03/30/18 06/07/19 History prednisone 5 mg PO QAM 03/30/18 06/07/19 History sennosides [senna] 17.2 mg PO HS 03/30/18 06/07/19 History cefadroxil 500 mg PO QAM 09/29/18 06/07/19 History cranberry 500 mg PO HS 09/29/18 06/07/19 History omeprazole 20 mg PO BID 09/29/18 06/07/19 History Mac[facility] 1 tab PO QAM 10/08/18 06/07/19 History acetaminophen [Tylenol Extra 1,000 mg PO Q8 PRN #90 tab 11/10/18 06/07/19 Rx Strength] oxybutynin chloride 5 mg tablet 5 mg PO BID #180 tab 12/10/18 06/07/19 Rx hydroxychloroquine 200 mg tablet 200 mg PO BID tab 01/13/19 06/07/19 History leflunomide 20 mg tablet 20 mg PO QAM 01/20/19 06/07/19 History calcitriol 0.5 mcg capsule 0.5 mcg PO QPM 02/10/19 06/07/19 History leg brace #1 ea 02/10/19 05/30/19 Rx hydrocodone 10 mg-acetaminophen 1 tab PO QID PRN 05/18/19 06/07/19 History 325 mg tablet naproxen 500 mg tablet 500 mg PO BID PRN 05/18/19 06/07/19 History calcium carbonate-vitamin D3 1 cap PO BID 06/07/19 06/07/19 History [Calcium 600 + D(3)] Patient History Medical History (Updated 06/07/19 @ 14:15 by Lucille Ling PA-C) DDD (degenerative disc disease) GERD (gastroesophageal reflux disease) History of Hodgkin's lymphoma 2004/PCP under surveillance History of oral cancer s/p tongue excision left side (no chemo/XRT 2013) RA (rheumatoid arthritis) on chronic steroids Surgical History Cancer (Chronic) TONGUE EXCISION LEFT SIDE H/O foot surgery (Resolved) TOES X MULTIPLE H/O parathyroidectomy (Resolved) History of carpal tunnel release (Resolved) RIGHT History of hip surgery R/L REVISION History of total hip arthroplasty (Resolved) R/L History of total knee replacement (Resolved) R/L Status post knee surgery REVISION RIGHT KNEE 02/2016 Family History Other Family history non-contributory Social History Preferred Language: Cymraes Communication Ability: Effective Visual Impairment: Limited 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: Normal Cost Control Analyst Required: No Beliefs That Will Affect Care: None marital status: Current Living Situation: Spouse current occupational status: retired Other Information That Helps Us Care for You: No Feels Safe at Home: Yes Safety Concerns: Feels Safe At This Time Smoking Status: Never smoker Do You Dip or Chew Tobacco: No ; Second Hand Exposure: No ; Hx Alcohol Use: No Hx Substance Use: No Childhood Exposure to Second-Hand Smoke: Yes Seatbelt Use: always Review of Systems Review of Systems: Constitutional: No fever, sweats or chills Eyes: No diplopia, no worsening or blurred vision ENT: normal hearing, no trouble swallowing Respiratory: No cough, sputum, dyspnea at rest or on exertion Cardiovascular: No chest pain, tightness or palpitations Abdomen: No pain, + nausea as per HPI, no vomiting, diarrhea or constipation, last BM was prior to my exam today Musculoskeletal: + R knee pain s/p surgical procedure, calf pain, swelling Neurologic: No weakness, numbness/tingling, or balance problems Psychiatric: No anxiety or depression Skin: No rash or itch Physical Exam Physical Exam: General: awake, alert, no apparent distress, + pallor Head: Normocephalic, atraumatic ENT: PERRL, EOMI, no pharyngeal exudate, mucous membranes moist Chest: Clear to auscultation, on room air, no adventitious breath sounds Cardiac: Regular rate and rhythm, no murmur, no JVD, normal peripheral pulses, good capillary refill Abdominal: NABS x 4 quadrants, soft, nontender to palpation, no rebound, guarding or tenderness Extremities: +R knee with ramiro bandage in place, c/d/i, +hemovac, ice pack on, no peripheral edema or erythema, calfs nontender to palpation Psych: Normal mood and affect Neuro: AAO x 3, no gross motor deficits, + able to move toes bilaterally without difficulty, sensation to light touch intact distally bilaterally in LE, speech is clear Results & Data Vital Signs (Past 12 Hours) Vital Signs Temp Pulse Pulse Resp BP BP Pulse Ox 06/07/19 13:36 81 24 106/53 L 96 06/07/19 13:30 95 H 22 84/45 L 95 06/07/19 13:20 36.9 C 100 H 18 90/49 L 95 06/07/19 13:10 103 H 15 107/56 L 100 06/07/19 13:02 36 C L 105 H 16 108/61 100 06/07/19 07:45 36.8 C 76 16 165/79 H 98 PG Care Time/CCT Total # of Minutes Spent Total Time Spent with Patient: Total time spent is greater than 50% in coordination of care (as documented) at patient's floor/unit and/or counseling patient:
[2019-06-07] MEDS ORDERED: PROCHLORPERAZINE 10 MG in SYRINGE 8 ML IV PRN (14:32)
[2019-06-07] MEDS: OXYCODONE HCL IR 5 MG TAB (IMMEDIATE RELEASE) PO PRN ×2 (16:19→21:39)
[2019-06-07] MEDS: ACETAMINOPHEN 500 MG TAB PO SCH ×2 (16:20→22:56)
[2019-06-07] MEDS: GABAPENTIN 100 MG CAP PO SCH ×2 (16:20→21:34)
[2019-06-07] MEDS: SODIUM CHLORIDE 0.9% 1000ML 1,000 ML IV SCH (16:21)
[2019-06-07] MEDS: HYDROCORTISONE SOD 25 MG in SYRINGE 0 ML IV SCH ×2 (16:51→23:54)
[2019-06-07 17:07] LABS: Hematocrit (blood only) 21.2 % (37-47); Hemoglobin 6.3 g/dL (12.0-16.0); Mean Corpuscular Hemoglobin 22.8 pg (25-34); Mean Corpuscular Hgb Conc 29.7 g/dL (32-36); Mean Corpuscular Volume 76.8 fL (80-100); Mean Platelet Volume 8.7 fL (7.4-10.4); Platelet Count 325 K/uL (130-400); RDW Coefficient of Variation 20.2 % (11.5-14.5); RDW Standard Deviation 56.8 fL (36.4-46.3); Red Blood Count 2.76 M/uL (4.2-5.4); White Blood Count 13.66 K/uL (4.8-10.8)
[2019-06-07] MEDS ORDERED: SODIUM CHLORIDE 0.9% 250 ML IV PRN ×2 (17:09→17:23)
--- NOTE | 2019-06-07 17:16 | Orthopedic Progress Note ---
Date of Service June 07, 2019 Assessment & Plan (1) Infection of total right knee replacement: s/p explant right total knee, I+D, placement of antibiotic cement spacer -ancef/vanco x 24 -DVT ppx: SCDs, TEDs, Lovenox daily -Partial WB RLE -PT/OT -PO XR demonstrates a well aligned well fixed abx cement spacer without fracture/dislocation. -am labs -Medical hospitalist consult -ID consult -F/U IO cultures -DC planning Subjective Post Operative Progress Note Patient seen laying in bed, comfortable, denies complaints, pain well controlled, no acute issues. Review of Systems Review of Systems: All systems reviewed & are unremarkable except as noted in HPI & below Constitutional: as per Subjective / HPI Physical Exam Physical Exam: RLE NVSI +EHL/FHL/TA/GS SILT grossly, +2 DP pulse, compartments soft NT, dressing cdi. HMV drain intact. KI in place. Constitutional: WD/WN, vitals as above Results & Data Vital Signs (Past 12 Hours) Vital Signs Temp Pulse Pulse Resp BP BP Pulse Ox 06/07/19 16:01 36.9 C 95 H 18 104/54 L 99 06/07/19 15:15 97/48 L 06/07/19 15:13 36.8 C 97 H 18 100 06/07/19 14:29 37.6 C H 83 18 114/58 L 100 06/07/19 14:00 37.1 C 77 18 91/62 L 95 06/07/19 13:36 81 24 106/53 L 96 06/07/19 13:30 95 H 22 84/45 L 95 06/07/19 13:20 36.9 C 100 H 18 90/49 L 95 06/07/19 13:10 103 H 15 107/56 L 100 06/07/19 13:02 36 C L 105 H 16 108/61 100 06/07/19 07:45 36.8 C 76 16 165/79 H 98
[2019-06-07 17:17] LABS: Albumin Level 2.2 gm/dl (3.4-5.0); BUN Creatinine Ratio 24.4 (10-20); Calcium 8.5 mg/dl (8.5-10.1); Creatinine Clr Calc Pharmacy 52.8 ml/min; Est GFR (Non-African American) 72.5; Potassium 4.3 mmol/L (3.5-5.1)
[2019-06-07 17:20] LABS: Albumin Globulin Ratio 0.8 (0.9-2); Bilirubin,Total 0.3 mg/dl (0.2-1); Globulin 2.6 gm/dl (2.5-4.0); Total Protein 4.8 gm/dl (6.4-8.2)
[2019-06-07] MEDS: CEFAZOLIN 1000MG 1,000 MG/7.5 ML SYR IV SCH (18:37)
[2019-06-07] MEDS ORDERED: VANCOMYCIN HCL 1,000 MG in SODIUM CHLORIDE 0.9% 250 ML IV SCH (20:00)
[2019-06-07] MEDS: DOCUSATE SODIUM 100 MG CAP PO SCH (21:32)
[2019-06-07] MEDS: OXYBUTYNIN CHLORIDE 5 MG TAB PO SCH (21:33)
[2019-06-07] MEDS: SENNA 8.6 MG TAB PO SCH (21:33)
[2019-06-08] MEDS: CEFAZOLIN 1000MG 1,000 MG/7.5 ML SYR IV SCH (01:24)
[2019-06-08] MEDS: SODIUM CHLORIDE 0.9% 1000ML 1,000 ML IV SCH (01:24)
[2019-06-08] MEDS: ACETAMINOPHEN 500 MG TAB PO SCH ×3 (06:14→21:36)
[2019-06-08] MEDS: OXYCODONE HCL IR 5 MG TAB (IMMEDIATE RELEASE) PO PRN ×4 (06:14→20:37)
[2019-06-08 07:25] LABS: Hematocrit (blood only) 28.2 % (37-47); Mean Corpuscular Hemoglobin 24.9 pg (25-34); Mean Corpuscular Hgb Conc 31.9 g/dL (32-36); Mean Corpuscular Volume 77.9 fL (80-100); Mean Platelet Volume 8.9 fL (7.4-10.4); Platelet Count 254 K/uL (130-400); RDW Standard Deviation 51.5 fL (36.4-46.3); Red Blood Count 3.62 M/uL (4.2-5.4); White Blood Count 12.67 K/uL (4.8-10.8)
[2019-06-08 08:00] LABS: BUN Creatinine Ratio 24.3 (10-20); Calcium 8.5 mg/dl (8.5-10.1); Est GFR (African American) 92.1; Est GFR (Non-African American) 79.5
--- NOTE | 2019-06-08 08:12 | Anesthesiology Progress Note ---
Date of Service June 08, 2019 Anesthesia Post Procedure Vital Signs Vital Signs: Temp Pulse Pulse Pulse Resp BP BP 06/08/19 08:00 37.2 C 76 18 150/64 H 06/08/19 03:51 37.1 C 85 16 06/08/19 01:25 36.7 C 79 16 127/69 06/08/19 00:45 37.1 C 76 16 118/64 06/07/19 23:45 37.5 C 86 16 107/61 06/07/19 23:15 37.4 C 82 16 108/65 06/07/19 22:46 37.3 C 80 15 122/66 06/07/19 22:31 37.3 C 82 16 112/67 06/07/19 22:14 37 C 80 18 109/61 06/07/19 21:20 37.5 C 86 17 106/66 06/07/19 20:20 36.7 C 82 18 108/64 06/07/19 19:50 36.7 C 82 18 108/64 06/07/19 19:49 36.7 C 86 18 104/64 06/07/19 19:20 37.0 C 90 17 102/61 06/07/19 19:05 36.6 C 90 18 109/66 06/07/19 18:48 36.6 C 97 H 18 111/64 06/07/19 16:01 36.9 C 95 H 18 104/54 L 06/07/19 15:15 97/48 L 06/07/19 15:13 36.8 C 97 H 18 06/07/19 14:29 37.6 C H 83 18 114/58 L 06/07/19 14:00 37.1 C 77 18 06/07/19 13:36 81 24 106/53 L 06/07/19 13:30 95 H 22 84/45 L 06/07/19 13:20 36.9 C 100 H 18 90/49 L 06/07/19 13:10 103 H 15 107/56 L 06/07/19 13:02 36 C L 105 H 16 108/61 BP Pulse Ox 06/08/19 08:00 94 06/08/19 03:51 128/67 97 06/08/19 01:25 98 06/08/19 00:45 96 06/07/19 23:45 96 06/07/19 23:15 96 06/07/19 22:46 95 06/07/19 22:31 06/07/19 22:14 98 06/07/19 21:20 96 06/07/19 20:20 96 06/07/19 19:50 96 06/07/19 19:49 97 06/07/19 19:20 96 06/07/19 19:05 96 06/07/19 18:48 96 06/07/19 16:01 99 06/07/19 15:15 06/07/19 15:13 100 06/07/19 14:29 100 06/07/19 14:00 91/62 L 95 06/07/19 13:36 96 06/07/19 13:30 95 06/07/19 13:20 95 06/07/19 13:10 100 06/07/19 13:02 100 Pain Intensity Right Knee: Pain Intensity: 3 Notes Mental Status: alert / awake / arousable and participated in evaluation Patient Amnestic to Procedure: Yes Nausea / Vomiting: adequately controlled Pain: adequately controlled Airway Patency, RR, SpO2: stable & adequate BP & HR: stable & adequate Hydration State: stable & adequate Neuraxial Anesthesia: was administered and sensory block resolved Anesthetic Complications: no major complications apparent and Pt Satisfied with anesthetic care
[2019-06-08] MEDS: HYDROmorphone INJ 0.5 MG/0.5 ML SYR IV PRN (08:13)
[2019-06-08] MEDS: OXYBUTYNIN CHLORIDE 5 MG TAB PO SCH ×2 (08:14→20:33)
[2019-06-08] MEDS: GABAPENTIN 100 MG CAP PO SCH ×3 (08:14→20:33)
[2019-06-08] MEDS: DOCUSATE SODIUM 100 MG CAP PO SCH ×2 (08:14→20:33)
[2019-06-08] MEDS: MULTIVITAMIN TAB PO SCH (08:14)
[2019-06-08] MEDS: HYDROCORTISONE SOD 25 MG in SYRINGE 0 ML IV SCH (08:14)
[2019-06-08] MEDS: ENOXAPARIN INJ 30 MG/0.3 ML SYR SQ SCH (08:15)
--- NOTE | 2019-06-08 10:22 | Infectious Disease Consult ---
Date of Consultation June 08, 2019 Assessment & Plan (1) Infection of total right knee replacement: Patient with what appears to be chronically infected right prosthetic knee now status post removal of prosthesis and placement of antibiotic spacer. Would recommend use of IV daptomycin pending operative cultures. Will adjust once final culture results are available if necessary. Will follow. 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 Had been on chronic suppressive antibiotics since that time, but in November developed a persistently draining sinus tract. Knee became progressively more painful, and it was decided that needed new prosthesis placed. Recent aspiration of the knee showed no growth on culture. She is now undergone removal and spacer placement, as discussed, patient was given vancomycin perioperatively. She has not had any significant fever, chills, or other systemic complaints. Currently with expected postoperative pain. Gram stain of operative specimens negative for organisms, cultures are pending. Allergies Allergy/AdvReac Type Severity Reaction Status Date / Time dalbavancin Allergy Severe hypotension, Verified 05/30/19 10:53 flushing, tachypnea Home Medications Home Medications Medication Instructions Recorded Confirmed Type Probiotic 3,000 mmu cells PO QAM 03/30/18 06/07/19 History gabapentin 100 mg PO TID 03/30/18 06/07/19 History prednisone 1 mg PO PM 03/30/18 06/07/19 History prednisone 5 mg PO QAM 03/30/18 06/07/19 History sennosides [senna] 17.2 mg PO HS 03/30/18 06/07/19 History cefadroxil 500 mg PO QAM 09/29/18 06/07/19 History cranberry 500 mg PO HS 09/29/18 06/07/19 History omeprazole 20 mg PO BID 09/29/18 06/07/19 History [facility] 1 tab PO QAM 10/08/18 06/07/19 History acetaminophen [Tylenol Extra 1,000 mg PO Q8 PRN #90 tab 11/10/18 06/07/19 Rx Strength] oxybutynin chloride 5 mg tablet 5 mg PO BID #180 tab 12/10/18 06/07/19 Rx hydroxychloroquine 200 mg tablet 200 mg PO BID tab 01/13/19 06/07/19 History leflunomide 20 mg tablet 20 mg PO QAM 01/20/19 06/07/19 History calcitriol 0.5 mcg capsule 0.5 mcg PO QPM 02/10/19 06/07/19 History leg brace #1 ea 02/10/19 05/30/19 Rx hydrocodone 10 mg-acetaminophen 1 tab PO QID PRN 05/18/19 06/07/19 History 325 mg tablet naproxen 500 mg tablet 500 mg PO BID PRN 05/18/19 06/07/19 History calcium carbonate-vitamin D3 1 cap PO BID 06/07/19 06/07/19 History [Calcium 600 + D(3)] Patient History Medical History DDD (degenerative disc disease) GERD (gastroesophageal reflux disease) History of Hodgkin's lymphoma 2003/PCP under surveillance History of oral cancer s/p tongue excision left side (no chemo/XRT 2013) RA (rheumatoid arthritis) on chronic steroids Surgical History Cancer (Chronic) TONGUE EXCISION LEFT SIDE H/O foot surgery (Resolved) TOES X MULTIPLE H/O parathyroidectomy (Resolved) History of carpal tunnel release (Resolved) RIGHT History of hip surgery R/L REVISION History of total hip arthroplasty (Resolved) R/L History of total knee replacement (Resolved) R/L Status post knee surgery REVISION RIGHT KNEE 02/2016 Family History Other Family history non-contributory Social History Preferred Language: Mohawk Communication Ability: Effective Visual Impairment: Limited 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: Normal Pet Stylist Required: No Beliefs That Will Affect Care: None marital status: Current Living Situation: Spouse current occupational status: retired Other Information That Helps Us Care for You: No Feels Safe at Home: Yes Safety Concerns: Feels Safe At This Time Smoking Status: Never smoker Do You Dip or Chew Tobacco: No ; Second Hand Exposure: No ; Hx Alcohol Use: No Hx Substance Use: No Childhood Exposure to Second-Hand Smoke: Yes Seatbelt Use: always Review of Systems Review of Systems: All systems reviewed & are unremarkable except as noted in HPI & below Physical Exam Constitutional: WD/WN, vitals as above comfortable; no acute distress Eyes: PERRL, conjunctivae normal, anicteric sclerae ENMT: external ear and nose normal, oropharynx normal Neck: trachea midline, no thyromegaly neck nontender Respiratory: normal respiratory effort, lungs clear to auscultation normal percussion; does not use accessory muscles Cardiovascular: Rate/Rhythm: regular rate and regular rhythm Heart Sounds: normal S1 and normal S2; no gallop, no murmur and no cardiac rub Vessels: normal peripheral pulses; no JVD Gastrointestinal (Abdomen): normal bowel sounds, soft, nontender, no hepatosplenomegaly Musculoskeletal: no cyanosis or clubbing, extremities motor strength 5/5 Spine: thoracic spine normal to inspection and lumbar spine normal to inspection; no cervical spinal tenderness Skin: no rashes, warm and dry normal turgor and + wound (Surgical dressing intact with drain in place right knee); no lesions Neurologic: patellar DTR's 2+ bilat, sensation intact no focal motor deficits Psychiatric: A+Ox3, euthymic affect Orientation: cooperative Lymphatic: no cervical or axillary lymphadenopathy no inguinal lymphadenopathy Results & Data Vital Signs (Past 12 Hours) Vital Signs Temp Pulse Pulse Resp BP BP BP 06/08/19 08:00 37.2 C 76 18 150/64 H 06/08/19 03:51 37.1 C 85 16 128/67 06/08/19 01:25 36.7 C 79 16 127/69 06/08/19 00:45 37.1 C 76 16 118/64 06/07/19 23:45 37.5 C 86 16 107/61 06/07/19 23:15 37.4 C 82 16 108/65 06/07/19 22:46 37.3 C 80 15 122/66 06/07/19 22:31 37.3 C 82 16 112/67 Pulse Ox 06/08/19 08:00 94 06/08/19 03:51 97 06/08/19 01:25 98 06/08/19 00:45 96 06/07/19 23:45 96 06/07/19 23:15 96 06/07/19 22:46 95 06/07/19 22:31 Laboratory Results Short CBC 06/07/19 06/08/19 Range/Units 16:37 07:09 WBC 13.66 H 12.67 H (4.8-10.8) K/uL Hgb 6.3 L* 9.0 L (12.0-16.0) g/dL Hct 21.2 L 28.2 L (37-47) % Plt Count 325 254 (130-400) K/uL BMP 06/07/19 06/08/19 16:37 07:09 Sodium 141 144 Potassium 4.3 4.0 Chloride 111 H 114 H Carbon Dioxide 23 25 BUN 20 H 18 Creatinine 0.82 0.76 Glucose 157 H 111 H Calcium 8.5 8.5 Liver Function 06/07/19 Range/Units 16:37 Total Bilirubin 0.3 (0.2-1) mg/dl AST 11 L (15-37) U/L ALT 12 (12-78) U/L Alkaline Phosphatase 43 L (45-117) U/L Albumin 2.2 L (3.4-5.0) gm/dl Diagnostic Findings Microbiology 06/07/19 Unknown Knee,Right Gram Stain - Final 06/07/19 Unknown Knee,Right Gram Stain - Final 06/07/19 Unknown Knee,Right Gram Stain - Final 06/07/19 Unknown Knee,Right Gram Stain - Final 06/07/19 Unknown Knee,Right Gram Stain - Final 06/07/19 Unknown Knee,Right Gram Stain - Final 05/18/19 Unknown Urine,Clean Catch Urine Culture - Final Pseudomonas aeruginosa PG Care Time/CCT Total # of Minutes Spent Total Time Spent with Patient: Total time spent is greater than 50% in coordination of care (as documented) at patient's floor/unit and/or counseling patient:
[2019-06-08] MEDS: DAPTOmycin 360 MG in SYRINGE 0 ML IV SCH (16:33)
--- NOTE | 2019-06-08 17:29 | Orthopedic Progress Note ---
Date of Service June 08, 2019 Assessment & Plan (1) Infection of total right knee replacement: s/p explant right total knee, I+D, placement of antibiotic cement spacer POD#1 -IV abx Dapto per ID -DVT ppx: SCDs, TEDs, Lovenox daily -Partial WB RLE -PT/OT -PO XR demonstrates a well aligned well fixed abx cement spacer without fracture/dislocation. -am labs - hgb check on 11/05/18 6.3, now 9.0, s/p 2 units of PRBC on 11/05/18. Acute post operative anemia secondary to intra-operative blood loss and dilusional effect. -Medical hospitalist consult -ID consult, recs appreciated -F/U IO cultures -hmv drain output 50/200 -DC planning Subjective Post Operative Progress Note Patient seen laying in bed in a.m., comfortable, denies complaints, pain well controlled, no acute issues. Denies F/C/N/V/CP/SOB Review of Systems Review of Systems: All systems reviewed & are unremarkable except as noted in HPI & below Constitutional: as per Subjective / HPI Physical Exam Physical Exam: RLE NVSI +EHL/FHL/TA/GS SILT grossly, +2 DP pulse, compartments soft NT, dressing cdi. HMV drain intact Constitutional: WD/WN, vitals as above Results & Data Vital Signs (Past 12 Hours) Vital Signs Temp Pulse Resp BP Pulse Ox 06/08/19 15:39 37.1 C 78 17 154/68 H 99 06/08/19 08:00 37.2 C 76 18 150/64 H 94 Laboratory Results 06/08/19 06/08/19 06/08/19 Range/Units 07:09 07:09 07:09 WBC 12.67 H (4.8-10.8) K/uL RBC 3.62 L (4.2-5.4) M/uL Hgb 9.0 L (12.0-16.0) g/dL Hct 28.2 L (37-47) % MCV 77.9 L (80-100) fL MCH 24.9 L (25-34) pg MCHC 31.9 L (32-36) g/dL RDW Std Deviation 51.5 H (36.4-46.3) fL RDW Coeff of Jarvis 18.0 H (11.5-14.5) % Plt Count 254 (130-400) K/uL MPV 8.9 (7.4-10.4) fL Sodium 144 (136-145) mmol/L Potassium 4.0 (3.5-5.1) mmol/L Chloride 114 H (98-107) mmol/L Carbon Dioxide 25 (21-32) mmol/L Anion Gap 5.0 (3-11) BUN 18 (7-18) mg/dl Creatinine 0.76 (0.6-1.2) mg/dl Est Cr Clr Drug Dosing 57.0 ml/min Est GFR ( Amer) 92.1 Est GFR (Non-Af Amer) 79.5 BUN/Creatinine Ratio 24.3 H (10-20) Glucose 111 H (70-99) mg/dl Calcium 8.5 (8.5-10.1) mg/dl Hepatitis C Ab Screen Neg (Neg) Blood Type Antibody Screen Crossmatch 06/07/19 Range/Units 07:25 WBC (4.8-10.8) K/uL RBC (4.2-5.4) M/uL Hgb (12.0-16.0) g/dL Hct (37-47) % MCV (80-100) fL MCH (25-34) pg MCHC (32-36) g/dL RDW Std Deviation (36.4-46.3) fL RDW Coeff of Jarvis (11.5-14.5) % Plt Count (130-400) K/uL MPV (7.4-10.4) fL Sodium (136-145) mmol/L Potassium (3.5-5.1) mmol/L Chloride (98-107) mmol/L Carbon Dioxide (21-32) mmol/L Anion Gap (3-11) BUN (7-18) mg/dl Creatinine (0.6-1.2) mg/dl Est Cr Clr Drug Dosing ml/min Est GFR ( Amer) Est GFR (Non-Af Amer) BUN/Creatinine Ratio (10-20) Glucose (70-99) mg/dl Calcium (8.5-10.1) mg/dl Hepatitis C Ab Screen (Neg) Blood Type O Positive Antibody Screen NEGATIVE Crossmatch See Detail
[2019-06-08] MEDS: SENNA 8.6 MG TAB PO SCH (20:33)
[2019-06-08] MEDS: predniSONE 1 MG TAB PO SCH (20:37)
[2019-06-09] MEDS: ACETAMINOPHEN 500 MG TAB PO SCH ×3 (04:47→21:21)
[2019-06-09] MEDS: OXYCODONE HCL IR 5 MG TAB (IMMEDIATE RELEASE) PO PRN ×5 (04:47→21:33)
[2019-06-09 06:30] LABS: Hematocrit (blood only) 25.1 % (37-47); Hemoglobin 8.1 g/dL (12.0-16.0); Mean Corpuscular Hemoglobin 25.9 pg (25-34); Mean Corpuscular Hgb Conc 32.3 g/dL (32-36); Mean Corpuscular Volume 80.2 fL (80-100); Mean Platelet Volume 8.8 fL (7.4-10.4); Platelet Count 215 K/uL (130-400); RDW Coefficient of Variation 18.8 % (11.5-14.5); RDW Standard Deviation 55.1 fL (36.4-46.3); Red Blood Count 3.13 M/uL (4.2-5.4)
[2019-06-09 07:10] LABS: BUN Creatinine Ratio 22.1 (10-20); Calcium 8.7 mg/dl (8.5-10.1); Creatinine Clr Calc Pharmacy 74.7 ml/min; Est GFR (African American) 108.2; Est GFR (Non-African American) 93.4; Potassium 3.4 mmol/L (3.5-5.1)
[2019-06-09] MEDS: HYDROmorphone INJ 0.5 MG/0.5 ML SYR IV PRN ×2 (07:30→11:20)
[2019-06-09] MEDS: GABAPENTIN 100 MG CAP PO SCH ×3 (07:34→20:00)
[2019-06-09] MEDS: predniSONE 5 MG TAB PO SCH (07:34)
[2019-06-09] MEDS: MULTIVITAMIN TAB PO SCH (07:34)
[2019-06-09] MEDS: ENOXAPARIN INJ 30 MG/0.3 ML SYR SQ SCH (07:34)
[2019-06-09] MEDS: DOCUSATE SODIUM 100 MG CAP PO SCH ×2 (07:34→20:00)
[2019-06-09] MEDS: OXYBUTYNIN CHLORIDE 5 MG TAB PO SCH ×2 (07:34→20:00)
--- NOTE | 2019-06-09 07:41 | Orthopedic Progress Note ---
Date of Service June 09, 2019 Assessment & Plan (1) Infection of total right knee replacement: s/p explant right total knee, I+D, placement of antibiotic cement spacer POD#2 -IV abx Dapto per ID -DVT ppx: SCDs, TEDs, Lovenox daily -Partial WB RLE, maintain KI at all times -PT/OT -PO XR demonstrates a well aligned well fixed abx cement spacer without fracture/dislocation. -am labs - hgb 8.1 Acute post operative anemia secondary to intra-operative blood loss and dilusional effect. -Medical hospitalist recs appreciated -ID recs appreciated -I/O cultures growing gram + cocci -hmv drain output 25/750 -DC planning POD#1 -IV abx Dapto per ID -DVT ppx: SCDs, TEDs, Lovenox daily -Partial WB RLE -PT/OT -PO XR demonstrates a well aligned well fixed abx cement spacer without fracture/dislocation. -am labs - hgb check on 11/05/18 6.3, now 9.0, s/p 2 units of PRBC on 11/05/18. Acute post operative anemia secondary to intra-operative blood loss and dilusional effect. -Medical hospitalist consult -ID consult, recs appreciated -F/U IO cultures -hmv drain output 50/200 -DC planning Subjective Post Operative Progress Note Patient seen laying in bed c/o increased pain this am, received pain medication 3 hours prior to encounter, no acute issues overnight. Denies F/C/N/V/CP/SOB Review of Systems Review of Systems: All systems reviewed & are unremarkable except as noted in HPI & below Constitutional: as per Subjective / HPI Physical Exam Physical Exam: RLE NVSI +EHL/FHL/TA/GS SILT grossly, +2 DP pulse, compartments soft NT, dressing cdi. No gross deformity on inspection Constitutional: WD/WN, vitals as above Results & Data Vital Signs (Past 12 Hours) Vital Signs Temp Pulse Pulse Resp BP Pulse Ox 06/08/19 23:43 36.7 C 96 H 16 132/68 93 06/08/19 19:58 37.2 C 87 17 136/73 97 Laboratory Results 06/09/19 06/09/19 06/08/19 Range/Units 06:13 06:13 07:09 WBC 10.50 (4.8-10.8) K/uL RBC 3.13 L (4.2-5.4) M/uL Hgb 8.1 L (12.0-16.0) g/dL Hct 25.1 L (37-47) % MCV 80.2 (80-100) fL MCH 25.9 (25-34) pg MCHC 32.3 (32-36) g/dL RDW Std Deviation 55.1 H (36.4-46.3) fL RDW Coeff of Jarvis 18.8 H (11.5-14.5) % Plt Count 215 (130-400) K/uL MPV 8.8 (7.4-10.4) fL Sodium 144 (136-145) mmol/L Potassium 3.4 L (3.5-5.1) mmol/L Chloride 114 H (98-107) mmol/L Carbon Dioxide 26 (21-32) mmol/L Anion Gap 4.0 (3-11) BUN 13 (7-18) mg/dl Creatinine 0.58 L (0.6-1.2) mg/dl Est Cr Clr Drug Dosing 74.7 ml/min Est GFR ( Amer) 108.2 Est GFR (Non-Af Amer) 93.4 BUN/Creatinine Ratio 22.1 H (10-20) Glucose 90 (70-99) mg/dl Calcium 8.7 (8.5-10.1) mg/dl Hepatitis C Ab Screen Neg (Neg) 06/08/19 Range/Units 07:09 WBC (4.8-10.8) K/uL RBC (4.2-5.4) M/uL Hgb (12.0-16.0) g/dL Hct (37-47) % MCV (80-100) fL MCH (25-34) pg MCHC (32-36) g/dL RDW Std Deviation (36.4-46.3) fL RDW Coeff of Jarvis (11.5-14.5) % Plt Count (130-400) K/uL MPV (7.4-10.4) fL Sodium 144 (136-145) mmol/L Potassium 4.0 (3.5-5.1) mmol/L Chloride 114 H (98-107) mmol/L Carbon Dioxide 25 (21-32) mmol/L Anion Gap 5.0 (3-11) BUN 18 (7-18) mg/dl Creatinine 0.76 (0.6-1.2) mg/dl Est Cr Clr Drug Dosing 57.0 ml/min Est GFR ( Amer) 92.1 Est GFR (Non-Af Amer) 79.5 BUN/Creatinine Ratio 24.3 H (10-20) Glucose 111 H (70-99) mg/dl Calcium 8.5 (8.5-10.1) mg/dl Hepatitis C Ab Screen (Neg)
--- NOTE | 2019-06-09 10:34 | Infectious Disease Progress Nt ---
Date of Service June 09, 2019 Assessment & Plan (1) Infection of total right knee replacement: Patient with what appears to be chronically infected right prosthetic knee now status post removal of prosthesis and placement of antibiotic spacer. Pending final culture results, daptomycin should provide adequate coverage. Will need PICC line as will require prolonged i.e. 6 to 8 weeks of IV antibiotics. Will follow. Subjective Patient seen in follow-up for prosthetic joint infection right knee. Having more pain last night and this morning. Otherwise without new complaints. Remains afebrile. Cultures all growing gram-positive cocci. Tolerating daptomycin without apparent difficulty. Review of Systems Review of Systems: All systems reviewed & are unremarkable except as noted in HPI & below Physical Exam Constitutional: WD/WN, vitals as above comfortable; no acute distress Eyes: PERRL, conjunctivae normal, anicteric sclerae ENMT: external ear and nose normal, oropharynx normal Neck: trachea midline, no thyromegaly neck nontender Respiratory: normal respiratory effort, lungs clear to auscultation normal percussion; does not use accessory muscles Cardiovascular: Rate/Rhythm: regular rate and regular rhythm Heart Sounds: normal S1 and normal S2; no gallop, no murmur and no cardiac rub Vessels: normal peripheral pulses; no JVD Gastrointestinal (Abdomen): normal bowel sounds, soft, nontender, no hepatosplenomegaly Musculoskeletal: no cyanosis or clubbing, extremities motor strength 5/5 Spine: thoracic spine normal to inspection and lumbar spine normal to inspection; no cervical spinal tenderness Skin: no rashes, warm and dry normal turgor and + wound (Surgical dressing intact with drain in place right knee); no lesions Neurologic: patellar DTR's 2+ bilat, sensation intact no focal motor deficits Psychiatric: A+Ox3, euthymic affect Orientation: cooperative Lymphatic: no cervical or axillary lymphadenopathy no inguinal lymphadenopathy Results & Data Vital Signs (Past 12 Hours) Vital Signs Temp Pulse Resp BP Pulse Ox 06/09/19 07:46 37.1 C 94 H 16 143/72 H 94 06/08/19 23:43 36.7 C 96 H 16 132/68 93 Laboratory Results Short CBC 06/09/19 Range/Units 06:13 WBC 10.50 (4.8-10.8) K/uL Hgb 8.1 L (12.0-16.0) g/dL Hct 25.1 L (37-47) % Plt Count 215 (130-400) K/uL BMP 06/09/19 06:13 Sodium 144 Potassium 3.4 L Chloride 114 H Carbon Dioxide 26 BUN 13 Creatinine 0.58 L Glucose 90 Calcium 8.7 Diagnostic Findings Microbiology 06/07/19 Unknown Knee,Right Gram Stain - Final 06/07/19 Unknown Knee,Right Aerobic and Anaerobic Culture - Preliminary Gram positive cocci 06/07/19 Unknown Knee,Right Gram Stain - Final 06/07/19 Unknown Knee,Right Aerobic and Anaerobic Culture - Preliminary Gram positive cocci 06/07/19 Unknown Knee,Right Gram Stain - Final 06/07/19 Unknown Knee,Right Aerobic and Anaerobic Culture - Preliminary Gram positive cocci 06/07/19 Unknown Knee,Right Gram Stain - Final 06/07/19 Unknown Knee,Right Aerobic and Anaerobic Culture - Preliminary Gram positive cocci 06/07/19 Unknown Knee,Right Gram Stain - Final 06/07/19 Unknown Knee,Right Aerobic and Anaerobic Culture - Preliminary No growth to date. 06/07/19 Unknown Knee,Right Gram Stain - Final 06/07/19 Unknown Knee,Right Aerobic and Anaerobic Culture - Preliminary No growth to date. 05/18/19 Unknown Urine,Clean Catch Urine Culture - Final Pseudomonas aeruginosa PG Care Time/CCT Total # of Minutes Spent Total Time Spent with Patient: Total time spent is greater than 50% in coordination of care (as documented) at patient's floor/unit and/or counseling patient:
[2019-06-09 16:27] LABS: Hematocrit (blood only) 28.3 % (37-47); Hemoglobin 8.9 g/dL (12.0-16.0)
[2019-06-09] MEDS: DAPTOmycin 360 MG in SYRINGE 0 ML IV SCH (17:10)
[2019-06-09] MEDS: predniSONE 1 MG TAB PO SCH (20:00)
[2019-06-09] MEDS: SENNA 8.6 MG TAB PO SCH (20:00)
--- NOTE | 2019-06-09 21:59 | Hospitalist Progress Note ---
Date of Service June 09, 2019 Assessment & Plan (1) Infection of total right knee replacement: - S/p surgical procedure by Dr. Vela - Pain management and bowel regimen per the primary team -Patient develoeped anemia from acute blood loss. -Transfused 2 PRBC, patient improved. - no overt signs of bleeding, no BRBPR with BM - Hemoglobin improved, will monitor -ID is consulted, Patient with what appears to be chronically infected right prosthetic knee now status post removal of prosthesis and placement of antibiotic spacer. Pending final culture results, daptomycin should provide adequate coverage. Obtained consent for PICC line and placed order. (2) Osteoporosis, unspecified: - Continue calcitrol 0.5 mcg capsule, calcium and Vit D supplementation (3) RA (rheumatoid arthritis): - Continue hydroxychloroquine 200 mg BID, prednisone 5 mg QAm and 1 mg QPM, gabapentin 100 mg TID for pain control - Was given dexamethasone 8 mg and hydrocortisone 50 mg administered intraop, will monitor BP this afternoon to determine if needs stress dosed steroids during hospital stay (4) History of hyperparathyroidism: -stable (5) Sciatica: - Continue pain control with hydrocodone-acetaminophen, gabapentin, and naproxen (6) History of Hodgkin's lymphoma: - Hx of such in 2003 (7) History of oral cancer: - Hx of such, s/p lesion excision tongue left side (no chemo/XRT 2013) (8) Acute blood loss anemia: hemoglobin has been stable after transfusion. will monitor. Morning hemoglobin was likely lab error as repeat hemoglobin was closer to yesterday's hemoglobin postransfusion. (9) Chronic reflux esophagitis: -Continue omeprazole 20 mg BID DVT ppx: jose roberto, scd on nonaffected leg, lovenox 30 mg subQ Thank you for involving us in the care of Mrs Esparza. Please do not hesitate to call with questions or concerns. Medicine service will follow along. Subjective Patient reports feelig well. She has no new complaints. She denies any fever, chill,s nausea, or vomiting. Review of Systems Review of Systems: Constitutional: No fever, sweats or chills Eyes: No diplopia, no worsening or blurred vision ENT: normal hearing, no trouble swallowing Respiratory: No cough, sputum, dyspnea at rest or on exertion Cardiovascular: No chest pain, tightness or palpitations Abdomen: No pain, + nausea as per HPI, no vomiting, diarrhea or constipation, last BM was prior to my exam today Musculoskeletal: + R knee pain s/p surgical procedure, calf pain, swelling Neurologic: No weakness, numbness/tingling, or balance problems Psychiatric: No anxiety or depression Skin: No rash or itch Physical Exam Physical Exam: General: awake, alert, no apparent distress, + pallor Head: Normocephalic, atraumatic ENT: PERRL, EOMI, no pharyngeal exudate, mucous membranes moist Chest: Clear to auscultation, on room air, no adventitious breath sounds Cardiac: Regular rate and rhythm, no murmur, no JVD, normal peripheral pulses, good capillary refill Abdominal: NABS x 4 quadrants, soft, nontender to palpation, no rebound, guarding or tenderness Extremities: +R knee with ramiro bandage in place, c/d/i, +hemovac, ice pack on, no peripheral edema or erythema, calfs nontender to palpation Psych: Normal mood and affect Neuro: AAO x 3, no gross motor deficits, + able to move toes bilaterally without difficulty, sensation to light touch intact distally bilaterally in LE, speech is clear Results & Data Vital Signs (Past 12 Hours) Vital Signs Temp Pulse Resp BP Pulse Ox 06/09/19 15:26 36.9 C 89 17 130/72 94 PG Care Time/CCT Total # of Minutes Spent Total Time Spent with Patient: Total time spent is greater than 50% in coordination of care (as documented) at patient's floor/unit and/or counseling patient:
[2019-06-10] MEDS: OXYCODONE HCL IR 5 MG TAB (IMMEDIATE RELEASE) PO PRN ×6 (02:33→23:27)
[2019-06-10] MEDS: ACETAMINOPHEN 500 MG TAB PO SCH ×3 (05:18→20:24)
[2019-06-10 06:45] LABS: Basophils # (auto) 0.04 K/uL (0-0.2); Basophils % (auto) 0.4 %; Eosinophils # (auto) 0.24 K/uL (0-0.5); Eosinophils % (auto) 2.5 %; Hematocrit (blood only) 25.1 % (37-47); Hemoglobin 7.8 g/dL (12.0-16.0); Immature Granulocytes # (auto) 0.03 K/uL (0.00-0.02); Immature Granulocytes % (auto) 0.3 %; Lymphocytes # (auto) 1.67 K/uL (1.2-3.4); Lymphocytes % (auto) 17.1 %; Mean Corpuscular Hemoglobin 25.4 pg (25-34); Mean Corpuscular Hgb Conc 31.1 g/dL (32-36); Mean Corpuscular Volume 81.8 fL (80-100); Mean Platelet Volume 8.6 fL (7.4-10.4); Monocytes # (auto) 1.32 K/uL (0.11-0.59); Monocytes % (auto) 13.5 %; Neutrophils # (auto) 6.49 K/uL (1.4-6.5); Neutrophils % (auto) 66.2 %; Platelet Count 204 K/uL (130-400); RDW Coefficient of Variation 19.6 % (11.5-14.5); RDW Standard Deviation 58.7 fL (36.4-46.3); Red Blood Count 3.07 M/uL (4.2-5.4); White Blood Count 9.79 K/uL (4.8-10.8)
[2019-06-10 07:14] LABS: RBC Morphology Unremarkable
[2019-06-10 07:19] LABS: Est GFR (African American) 108.9; Est GFR (Non-African American) 93.9; Potassium 3.9 mmol/L (3.5-5.1)
[2019-06-10] MEDS: GABAPENTIN 100 MG CAP PO SCH ×3 (08:15→20:24)
[2019-06-10] MEDS: MULTIVITAMIN TAB PO SCH (08:15)
[2019-06-10] MEDS: OXYBUTYNIN CHLORIDE 5 MG TAB PO SCH ×2 (08:16→20:24)
[2019-06-10] MEDS: DOCUSATE SODIUM 100 MG CAP PO SCH ×2 (08:16→20:24)
[2019-06-10] MEDS: predniSONE 5 MG TAB PO SCH (08:16)
[2019-06-10] MEDS: ENOXAPARIN INJ 30 MG/0.3 ML SYR SQ SCH (08:16)
[2019-06-10] MEDS ORDERED: SODIUM CHLORIDE 0.9% 250 ML IV PRN (08:22)
--- NOTE | 2019-06-10 08:42 | Orthopedic Progress Note ---
Date of Service June 10, 2019 Assessment & Plan (1) Infection of total right knee replacement: s/p explant right total knee, I+D, placement of antibiotic cement spacer POD#3 -IV abx Dapto per ID for 6-8 weeks -DVT ppx: SCDs, TEDs, Lovenox daily -Partial WB RLE, maintain KI at all times -PT/OT -Picc line placement today. -am labs - hgb 7.8 Acute post operative anemia secondary to intra-operative blood loss and dilusional effect. 1 unit of PRBC's ordered by Med Service. -Medical hospitalist recs appreciated -ID recs appreciated -I/O cultures growing E.Faecalis -DC planning - Considering [facility] rehab/SNF vs HH services. Subjective POD 3 Pt sitting up in bed prepariing to eat breakfast. No overt complaints this AM. Pain controlled. Denies SOB,CP,LH. States she has been ambulating to the BR a little better. Hgb down to 7.8 today. Pulse 93. BP wnl. Pt feels asymptomatic. States they were going to place the Picc line last night but got called away. Planning for Picc line today. Discussed dc plans. Pt still a bit hesitant about going home. Will discuss with CM about possible rehab placement. Physical Exam Physical Exam: Incision is C/D/I. Calves soft, NT. NV intact. Good DF/PF strength. Results & Data Vital Signs (Past 12 Hours) Vital Signs Temp Pulse Pulse Resp BP BP Pulse Ox 06/10/19 07:30 37.3 C 93 H 93 H 16 124/63 93 06/10/19 07:08 114/62 06/09/19 23:24 37.9 C H 97 H 16 113/61 94 Laboratory Results Laboratory Results WBC 9.79 K/uL (4.8-10.8) 06/10/19 06:33 RBC 3.07 M/uL (4.2-5.4) L 06/10/19 06:33 Hgb 7.8 g/dL (12.0-16.0) L 06/10/19 06:33 Hct 25.1 % (37-47) L 06/10/19 06:33 MCV 81.8 fL (80-100) 06/10/19 06:33 MCH 25.4 pg (25-34) 06/10/19 06:33 MCHC 31.1 g/dL (32-36) L 06/10/19 06:33 RDW Std Deviation 58.7 fL (36.4-46.3) H 06/10/19 06:33 RDW Coeff of Jarvis 19.6 % (11.5-14.5) H 06/10/19 06:33 Plt Count 204 K/uL (130-400) 06/10/19 06:33 MPV 8.6 fL (7.4-10.4) 06/10/19 06:33 Immature Gran % (Auto) 0.3 % 06/10/19 06:33 Neut % (Auto) 66.2 % 06/10/19 06:33 Lymph % (Auto) 17.1 % 06/10/19 06:33 Tillman % (Auto) 13.5 % 06/10/19 06:33 Eos % (Auto) 2.5 % 06/10/19 06:33 Baso % (Auto) 0.4 % 06/10/19 06:33 Immature Gran # (Auto) 0.03 K/uL (0.00-0.02) H 06/10/19 06:33 Neut # (Auto) 6.49 K/uL (1.4-6.5) 06/10/19 06:33 Lymph # (Auto) 1.67 K/uL (1.2-3.4) 06/10/19 06:33 Tillman # (Auto) 1.32 K/uL (0.11-0.59) H 06/10/19 06:33 Eos # (Auto) 0.24 K/uL (0-0.5) 06/10/19 06:33 Baso # (Auto) 0.04 K/uL (0-0.2) 06/10/19 06:33 RBC Morphology Unremarkable 06/10/19 06:33 Schistocytes 1+ 05/18/19 14:11 PT 10.9 Seconds (9.0-12.0) 05/18/19 14:11 INR 1.1 (0.9-1.1) 05/18/19 14:11 APTT 26.1 Seconds (21.0-31.0) 05/18/19 14:11 PTT Ratio 1.0 05/18/19 14:11 Sodium 140 mmol/L (136-145) 06/10/19 06:33 Potassium 3.9 mmol/L (3.5-5.1) 06/10/19 06:33 Chloride 108 mmol/L (98-107) H 06/10/19 06:33 Carbon Dioxide 27 mmol/L (21-32) 06/10/19 06:33 Anion Gap 5.0 (3-11) 06/10/19 06:33 BUN 10 mg/dl (7-18) 06/10/19 06:33 Creatinine 0.57 mg/dl (0.6-1.2) L 06/10/19 06:33 Est Cr Clr Drug Dosing 76.0 ml/min 06/10/19 06:33 Est GFR ( Amer) 108.9 06/10/19 06:33 Est GFR (Non-Af Amer) 93.9 06/10/19 06:33 BUN/Creatinine Ratio 17.0 (10-20) 06/10/19 06:33 Glucose 87 mg/dl (70-99) 06/10/19 06:33 Estimat Average Glucose 120 mg/dl 05/18/19 14:11 Hemoglobin A1c 5.8 % (4.5-5.6) H 05/18/19 14:11 Calcium 9.0 mg/dl (8.5-10.1) 06/10/19 06:33 Total Bilirubin 0.3 mg/dl (0.2-1) 06/07/19 16:37 AST 11 U/L (15-37) L 06/07/19 16:37 ALT 12 U/L (12-78) 06/07/19 16:37 Alkaline Phosphatase 43 U/L (45-117) L 06/07/19 16:37 Total Protein 4.8 gm/dl (6.4-8.2) L 06/07/19 16:37 Albumin 2.2 gm/dl (3.4-5.0) L 06/07/19 16:37 Globulin 2.6 gm/dl (2.5-4.0) 06/07/19 16:37 Albumin/Globulin Ratio 0.8 (0.9-2) L 06/07/19 16:37 Urine Color Yellow 05/18/19 Unknown Urine Appearance Clear (Clear) 05/18/19 Unknown Urine pH 5.5 (4.5-7.5) 05/18/19 Unknown Ur Specific Fay 1.017 (1.000-1.030) 05/18/19 Unknown Urine Protein Negative (Negative) 05/18/19 Unknown Urine Glucose (UA) Negative (Negative) 05/18/19 Unknown Urine Ketones Negative (Negative) 05/18/19 Unknown Urine Blood Negative (Negative) 05/18/19 Unknown Urine Nitrite Negative (Negative) 05/18/19 Unknown Urine Bilirubin Negative (Negative) 05/18/19 Unknown Urine Urobilinogen Negative (Negative) 05/18/19 Unknown Ur Leukocyte Esterase Negative (Negative) 05/18/19 Unknown Hepatitis C Ab Screen Neg (Neg) 06/08/19 07:09 Blood Type O Positive 06/07/19 07:25 Antibody Screen NEGATIVE 06/07/19 07:25 Crossmatch See Detail 06/07/19 07:25
--- NOTE | 2019-06-10 14:25 | Infectious Disease Progress Nt ---
Date of Service June 10, 2019 Assessment & Plan (1) Infection of total right knee replacement: Patient with what appears to be chronically infected right prosthetic knee now status post removal of prosthesis and placement of antibiotic spacer, with cultures positive for Enterococcus faecalis. Patient to be treated with IV daptomycin as outlined. Will need to follow CPK levels while on daptomycin. PICC line to be placed. As I will be leaving hospital after today, Dr. Deleon will provide ID follow-up if necessary. Subjective Patient seen in follow-up for prosthetic joint infection. Appears more comfortable today, remains afebrile. Cultures have all grown Enterococcus faecalis. Review of Systems Review of Systems: All systems reviewed & are unremarkable except as noted in HPI & below Physical Exam Constitutional: WD/WN, vitals as above comfortable; no acute distress Eyes: PERRL, conjunctivae normal, anicteric sclerae ENMT: external ear and nose normal, oropharynx normal Neck: trachea midline, no thyromegaly neck nontender Respiratory: normal respiratory effort, lungs clear to auscultation normal percussion; does not use accessory muscles Cardiovascular: Rate/Rhythm: regular rate and regular rhythm Heart Sounds: normal S1 and normal S2; no gallop, no murmur and no cardiac rub Vessels: normal peripheral pulses; no JVD Gastrointestinal (Abdomen): normal bowel sounds, soft, nontender, no hepatosplenomegaly Musculoskeletal: no cyanosis or clubbing, extremities motor strength 5/5 Spine: thoracic spine normal to inspection and lumbar spine normal to inspection; no cervical spinal tenderness Skin: no rashes, warm and dry normal turgor and + wound (Surgical dressing intact with drain in place right knee); no lesions Neurologic: patellar DTR's 2+ bilat, sensation intact no focal motor deficits Psychiatric: A+Ox3, euthymic affect Orientation: cooperative Lymphatic: no cervical or axillary lymphadenopathy no inguinal lymphadenopathy Results & Data Vital Signs (Past 12 Hours) Vital Signs Temp Pulse Pulse Pulse Resp BP BP 06/10/19 13:44 37 C 99 H 16 119/74 06/10/19 13:07 36.9 C 111 H 18 117/70 06/10/19 12:07 37.5 C 109 H 18 117/69 06/10/19 11:07 37.3 C 103 H 18 120/69 06/10/19 10:37 36.8 C 111 H 18 108/63 06/10/19 10:22 37.4 C 104 H 18 124/67 06/10/19 10:06 37.0 C 97 H 18 123/70 06/10/19 07:30 37.3 C 93 H 93 H 16 06/10/19 07:08 114/62 BP Pulse Ox 06/10/19 13:44 96 06/10/19 13:07 95 06/10/19 12:07 97 06/10/19 11:07 99 06/10/19 10:37 97 06/10/19 10:22 95 06/10/19 10:06 92 06/10/19 07:30 124/63 93 06/10/19 07:08 Laboratory Results Short CBC 06/09/19 06/10/19 Range/Units 16:02 06:33 WBC 9.79 (4.8-10.8) K/uL Hgb 8.9 L 7.8 L (12.0-16.0) g/dL Hct 28.3 L 25.1 L (37-47) % Plt Count 204 (130-400) K/uL BMP 06/10/19 06:33 Sodium 140 Potassium 3.9 Chloride 108 H Carbon Dioxide 27 BUN 10 Creatinine 0.57 L Glucose 87 Calcium 9.0 Diagnostic Findings Microbiology 06/07/19 Unknown Knee,Right Gram Stain - Final 06/07/19 Unknown Knee,Right Aerobic and Anaerobic Culture - Preliminary No growth to date. 06/07/19 Unknown Knee,Right Gram Stain - Final 06/07/19 Unknown Knee,Right Aerobic and Anaerobic Culture - Preliminary Enterococcus faecalis 06/07/19 Unknown Knee,Right Gram Stain - Final 06/07/19 Unknown Knee,Right Aerobic and Anaerobic Culture - Preliminary Enterococcus faecalis 06/07/19 Unknown Knee,Right Gram Stain - Final 06/07/19 Unknown Knee,Right Aerobic and Anaerobic Culture - Preliminary Enterococcus faecalis 06/07/19 Unknown Knee,Right Gram Stain - Final 06/07/19 Unknown Knee,Right Aerobic and Anaerobic Culture - Preliminary Enterococcus faecalis 06/07/19 Unknown Knee,Right Gram Stain - Final 06/07/19 Unknown Knee,Right Aerobic and Anaerobic Culture - Preliminary No growth to date. 05/18/19 Unknown Urine,Clean Catch Urine Culture - Final Pseudomonas aeruginosa PG Care Time/CCT Total # of Minutes Spent Total Time Spent with Patient: Total time spent is greater than 50% in coordination of care (as documented) at patient's floor/unit and/or counseling patient:
[2019-06-10] MEDS: DAPTOmycin 360 MG in SYRINGE 0 ML IV SCH (16:32)
[2019-06-10] MEDS: SENNA 8.6 MG TAB PO SCH (20:24)
[2019-06-10] MEDS: predniSONE 1 MG TAB PO SCH (20:25)
--- NOTE | 2019-06-10 22:41 | Hospitalist Progress Note ---
Date of Service June 10, 2019 Assessment & Plan (1) Infection of total right knee replacement: - S/p surgical procedure by Dr. Vela - Pain management and bowel regimen per the primary team -Patient develoeped anemia from acute blood loss. -Transfused 3 PRBC, one PRBC today. Likely hemodilution and acute blood loss from surgery. Goal is hemoglobin above 7-8. Will monitor for next 48 hours.. - no overt signs of bleeding, no BRBPR with BM - Hemoglobin improved, will monitor -ID is consulted, Patient with what appears to be chronically infected right prosthetic knee now status post removal of prosthesis and placement of antibiotic spacer. Pending final culture results, daptomycin should provide adequate coverage. Obtained consent for PICC line and placed order. (2) Osteoporosis, unspecified: - Continue calcitrol 0.5 mcg capsule, calcium and Vit D supplementation (3) RA (rheumatoid arthritis): - Continue hydroxychloroquine 200 mg BID, prednisone 5 mg QAm and 1 mg QPM, gabapentin 100 mg TID for pain control - Was given dexamethasone 8 mg and hydrocortisone 50 mg administered intraop, will monitor BP this afternoon to determine if needs stress dosed steroids during hospital stay (4) History of hyperparathyroidism: -stable (5) Sciatica: - Continue pain control with hydrocodone-acetaminophen, gabapentin, and naproxen (6) History of Hodgkin's lymphoma: - Hx of such in 2003 (7) History of oral cancer: - Hx of such, s/p lesion excision tongue left side (no chemo/XRT 2013) (8) Acute blood loss anemia: As noted above.n. (9) Chronic reflux esophagitis: -Continue omeprazole 20 mg BID DVT ppx: jose roberto, scd on nonaffected leg, lovenox 30 mg subQ Thank you for involving us in the care of Mrs Esparza. Please do not hesitate to call with questions or concerns. Medicine service will follow along. Subjective Patient reports no new symptoms. Review of Systems Review of Systems: Constitutional: No fever, sweats or chills Eyes: No diplopia, no worsening or blurred vision ENT: normal hearing, no trouble swallowing Respiratory: No cough, sputum, dyspnea at rest or on exertion Cardiovascular: No chest pain, tightness or palpitations Abdomen: No pain, + nausea as per HPI, no vomiting, diarrhea or constipation, last BM was prior to my exam today Musculoskeletal: + R knee pain s/p surgical procedure, calf pain, swelling Neurologic: No weakness, numbness/tingling, or balance problems Psychiatric: No anxiety or depression Skin: No rash or itch Physical Exam Physical Exam: General: awake, alert, no apparent distress, + pallor Head: Normocephalic, atraumatic ENT: PERRL, EOMI, no pharyngeal exudate, mucous membranes moist Chest: Clear to auscultation, on room air, no adventitious breath sounds Cardiac: Regular rate and rhythm, no murmur, no JVD, normal peripheral pulses, good capillary refill Abdominal: NABS x 4 quadrants, soft, nontender to palpation, no rebound, guarding or tenderness Extremities: +R knee with ramiro bandage in place, c/d/i, +hemovac, ice pack on, no peripheral edema or erythema, calfs nontender to palpation Psych: Normal mood and affect Neuro: AAO x 3, no gross motor deficits, + able to move toes bilaterally without difficulty, sensation to light touch intact distally bilaterally in LE, speech is clear Results & Data Vital Signs (Past 12 Hours) Vital Signs Temp Pulse Pulse Resp BP BP Pulse Ox 06/10/19 15:25 36.6 C 84 17 133/72 99 06/10/19 13:44 37 C 99 H 16 119/74 96 06/10/19 13:07 36.9 C 111 H 18 117/70 95 06/10/19 12:07 37.5 C 109 H 18 117/69 97 06/10/19 11:07 37.3 C 103 H 18 120/69 99 PG Care Time/CCT Total # of Minutes Spent Total Time Spent with Patient: Total time spent is greater than 50% in coordination of care (as documented) at patient's floor/unit and/or counseling patient:
[2019-06-11] MEDS: ACETAMINOPHEN 500 MG TAB PO SCH ×3 (05:43→21:37)
[2019-06-11 06:32] LABS: Hematocrit (blood only) 27.8 % (37-47); Hemoglobin 8.5 g/dL (12.0-16.0); Mean Corpuscular Hemoglobin 25.1 pg (25-34); Mean Corpuscular Hgb Conc 30.6 g/dL (32-36); Mean Platelet Volume 8.8 fL (7.4-10.4); Platelet Count 184 K/uL (130-400); RDW Standard Deviation 56.9 fL (36.4-46.3); Red Blood Count 3.39 M/uL (4.2-5.4); White Blood Count 8.48 K/uL (4.8-10.8)
[2019-06-11 07:07] LABS: BUN Creatinine Ratio 18.7 (10-20); Calcium 9.5 mg/dl (8.5-10.1); Creatinine Clr Calc Pharmacy 77.3 ml/min; Est GFR (African American) 109.5; Est GFR (Non-African American) 94.5; Potassium 3.6 mmol/L (3.5-5.1)
--- NOTE | 2019-06-11 08:07 | Orthopedic Progress Note ---
Date of Service June 11, 2019 Assessment & Plan (1) Infection of total right knee replacement: s/p explant right total knee, I+D, placement of antibiotic cement spacer POD#4 -IV abx Dapto per ID for 6-8 weeks -DVT ppx: SCDs, TEDs, Lovenox daily -Partial WB RLE, maintain KI at all times -PT/OT -Picc line placed. -am labs - hgb 8.5 acute post operative anemia secondary to intra-operative blood loss and dilusional effect. Status post 1 unit of PRBC's -Medical hospitalist recs appreciated -ID recs appreciated -I/O cultures growing E.Faecalis -DC planning - Considering [facility]/SNF vs HH services. POD#3 -IV abx Dapto per ID for 6-8 weeks -DVT ppx: SCDs, TEDs, Lovenox daily -Partial WB RLE, maintain KI at all times -PT/OT -Picc line placement today. -am labs - hgb 7.8 Acute post operative anemia secondary to intra-operative blood loss and dilusional effect. 1 unit of PRBC's ordered by Med Service. -Medical hospitalist recs appreciated -ID recs appreciated -I/O cultures growing E.Faecalis -DC planning - Considering [facility]/SNF vs services. Subjective Post Operative Progress Note Patient seen sitting up in bed, comfortable, denies complaints, pain well controlled, no acute issues. Denies fevers, chills, nausea, vomiting, shortness of breath or chest pain. Review of Systems Review of Systems: All systems reviewed & are unremarkable except as noted in HPI & below Constitutional: as per Subjective / HPI Physical Exam Physical Exam: RLE NVSI +EHL/FHL/TA/GS SILT grossly, +2 DP pulse, compartments soft NT, dressing cdi. KI in place Constitutional: WD/WN, vitals as above Results & Data Vital Signs (Past 12 Hours) Vital Signs Temp Pulse Resp BP BP Pulse Ox 06/11/19 07:35 36.8 C 109 H 15 129/69 96 06/10/19 23:09 36.8 C 96 H 18 144/69 H 95 Laboratory Results 06/11/19 06/11/19 06/10/19 Range/Units 06:24 06:24 08:42 WBC 8.48 (4.8-10.8) K/uL RBC 3.39 L (4.2-5.4) M/uL Hgb 8.5 L (12.0-16.0) g/dL Hct 27.8 L (37-47) % MCV 82.0 (80-100) fL MCH 25.1 (25-34) pg MCHC 30.6 L (32-36) g/dL RDW Std Deviation 56.9 H (36.4-46.3) fL RDW Coeff of Jarvis 19.0 H (11.5-14.5) % Plt Count 184 (130-400) K/uL MPV 8.8 (7.4-10.4) fL Sodium 139 (136-145) mmol/L Potassium 3.6 (3.5-5.1) mmol/L Chloride 107 (98-107) mmol/L Carbon Dioxide 29 (21-32) mmol/L Anion Gap 4.0 (3-11) BUN 11 (7-18) mg/dl Creatinine 0.56 L (0.6-1.2) mg/dl Est Cr Clr Drug Dosing 77.3 ml/min Est GFR ( Amer) 109.5 Est GFR (Non-Af Amer) 94.5 BUN/Creatinine Ratio 18.7 (10-20) Glucose 93 (70-99) mg/dl Calcium 9.5 (8.5-10.1) mg/dl Blood Type O Positive Antibody Screen NEGATIVE Crossmatch See Detail
[2019-06-11] MEDS: ENOXAPARIN INJ 30 MG/0.3 ML SYR SQ SCH (08:51)
[2019-06-11] MEDS: OXYBUTYNIN CHLORIDE 5 MG TAB PO SCH ×2 (08:52→21:34)
[2019-06-11] MEDS: GABAPENTIN 100 MG CAP PO SCH ×3 (08:52→21:35)
[2019-06-11] MEDS: DOCUSATE SODIUM 100 MG CAP PO SCH ×2 (08:52→21:34)
[2019-06-11] MEDS: MULTIVITAMIN TAB PO SCH (08:52)
[2019-06-11] MEDS: OXYCODONE HCL IR 5 MG TAB (IMMEDIATE RELEASE) PO PRN ×2 (08:52→16:36)
[2019-06-11] MEDS: predniSONE 5 MG TAB PO SCH (08:52)
[2019-06-11] MEDS: DAPTOmycin 360 MG in SYRINGE 0 ML IV SCH (16:03)
[2019-06-11] MEDS: SENNA 8.6 MG TAB PO SCH (21:34)
[2019-06-11] MEDS: predniSONE 1 MG TAB PO SCH (21:34)
[2019-06-12] MEDS: ACETAMINOPHEN 500 MG TAB PO SCH ×3 (06:03→21:39)
[2019-06-12] MEDS: OXYCODONE HCL IR 5 MG TAB (IMMEDIATE RELEASE) PO PRN ×2 (06:04→11:45)
[2019-06-12 07:41] LABS: Hemoglobin 8.7 g/dL (12.0-16.0); Mean Corpuscular Hemoglobin 25.5 pg (25-34); Mean Corpuscular Hgb Conc 31.1 g/dL (32-36); Mean Corpuscular Volume 82.1 fL (80-100); Platelet Count 197 K/uL (130-400); RDW Coefficient of Variation 19.5 % (11.5-14.5); RDW Standard Deviation 59.3 fL (36.4-46.3); Red Blood Count 3.41 M/uL (4.2-5.4); White Blood Count 8.46 K/uL (4.8-10.8)
--- NOTE | 2019-06-12 07:46 | Orthopedic Progress Note ---
Date of Service June 12, 2019 Assessment & Plan (1) Infection of total right knee replacement: s/p explant right total knee, I+D, placement of antibiotic cement spacer POD#5 -IV abx Dapto per ID for 6-8 weeks -DVT ppx: SCDs, TEDs, Lovenox daily -Partial WB RLE, maintain KI at all times -PT/OT -Picc line placed. -am labs - hgb 8.7; acute post operative anemia secondary to intra-operative blood loss and dilutional effect. PRBC's transfused. -Medical hospitalist recs appreciated -ID recs appreciated -I/O cultures growing E.Faecalis -DC planning - Considering [facility]/SNF vs services. Awaiting authorization. . Subjective Patient currently awake and alert. Pain is controlled. She states that on occasion she is having some burning in her right heel from laying on the bed which she helps to resolve with hanging her right heel off the edge of the bed. Currently she is not having any burning pain there at this time. She has no other complaints at this time. She states that overall she feels well. She was encouraged by the fact that she ambulated the hallway yesterday. Knee pain is currently controlled. Physical Exam Physical Exam: Incision is clean, dry, and intact. Calves are soft and nontender. Neurovascular is intact. No discoloration to her right heel and skin and soft tissues feel firm and are nontender. Results & Data Vital Signs (Past 12 Hours) Vital Signs Temp Pulse Pulse Resp BP Pulse Ox 06/12/19 07:32 36.8 C 106 H 18 132/71 95 06/11/19 23:06 36.8 C 95 H 18 119/72 94
[2019-06-12 08:10] LABS: BUN Creatinine Ratio 20.6 (10-20); Calcium 10.7 mg/dl (8.5-10.1); Creatinine Clr Calc Pharmacy 77.3 ml/min; Est GFR (African American) 109.5; Est GFR (Non-African American) 94.5; Potassium 3.7 mmol/L (3.5-5.1)
[2019-06-12] MEDS: MULTIVITAMIN TAB PO SCH (09:06)
[2019-06-12] MEDS: predniSONE 5 MG TAB PO SCH (09:06)
[2019-06-12] MEDS: ENOXAPARIN INJ 30 MG/0.3 ML SYR SQ SCH (09:06)
[2019-06-12] MEDS: GABAPENTIN 100 MG CAP PO SCH ×3 (09:06→21:40)
[2019-06-12] MEDS: OXYBUTYNIN CHLORIDE 5 MG TAB PO SCH ×2 (09:06→21:38)
[2019-06-12] MEDS: DOCUSATE SODIUM 100 MG CAP PO SCH ×2 (09:07→21:40)
[2019-06-12] MEDS: DAPTOmycin 360 MG in SYRINGE 0 ML IV SCH (17:00)
[2019-06-12] MEDS: SENNA 8.6 MG TAB PO SCH (21:38)
[2019-06-12] MEDS: predniSONE 1 MG TAB PO SCH (21:40)
--- NOTE | 2019-06-12 21:51 | Hospitalist Progress Note ---
Date of Service June 12, 2019 Assessment & Plan (1) Infection of total right knee replacement: - S/p surgical procedure by Dr. Vela - Pain management and bowel regimen per the primary team -Patient develoeped anemia from acute blood loss. -Transfused 3 PRBC, one PRBC today. -Hemoglobin improved and has been stable at 8 for past 48 hours. - no overt signs of bleeding, no BRBPR with BM - Hemoglobin improved, will monitor -ID is consulted, Patient with what appears to be chronically infected right prosthetic knee now status post removal of prosthesis and placement of antibiotic spacer. require prolonged i.e. 6 to 8 weeks of IV antibiotics; will use daptomycin at current dose. will need to monitor cpk levels while on dpatomycin as an outpatient. will defer further input to ID. (2) Osteoporosis, unspecified: - Continue calcitrol 0.5 mcg capsule, calcium and Vit D supplementation (3) RA (rheumatoid arthritis): - Continue hydroxychloroquine 200 mg BID, prednisone 5 mg QAm and 1 mg QPM, gabapentin 100 mg TID for pain control - Was given dexamethasone 8 mg and hydrocortisone 50 mg administered intraop, will monitor BP this afternoon to determine if needs stress dosed steroids during hospital stay (4) History of hyperparathyroidism: -stable (5) Sciatica: - Continue pain control with hydrocodone-acetaminophen, gabapentin, and naproxen (6) History of Hodgkin's lymphoma: - Hx of such in 2003 (7) History of oral cancer: - Hx of such, s/p lesion excision tongue left side (no chemo/XRT 2013) (8) Acute blood loss anemia: As noted above.n. (9) Chronic reflux esophagitis: -Continue omeprazole 20 mg BID DVT ppx: jose roberto, scd on nonaffected leg, lovenox 30 mg subQ Thank you for involving us in the care of Mrs Esparza. Please do not hesitate to call with questions or concerns. Medicine service will sign off the case.. Subjective Patient denies any new symptoms. She feels well. Review of Systems Review of Systems: Constitutional: No fever, sweats or chills Eyes: No diplopia, no worsening or blurred vision ENT: normal hearing, no trouble swallowing Respiratory: No cough, sputum, dyspnea at rest or on exertion Cardiovascular: No chest pain, tightness or palpitations Abdomen: No pain, + nausea as per HPI, no vomiting, diarrhea or constipation, last BM was prior to my exam today Musculoskeletal: + R knee pain s/p surgical procedure, calf pain, swelling Neurologic: No weakness, numbness/tingling, or balance problems Psychiatric: No anxiety or depression Skin: No rash or itch Physical Exam Physical Exam: General: awake, alert, no apparent distress, Head: Normocephalic, atraumatic ENT: PERRL, EOMI, no pharyngeal exudate, mucous membranes moist Chest: Clear to auscultation, on room air, no adventitious breath sounds Cardiac: Regular rate and rhythm, no murmur, no JVD, normal peripheral pulses, good capillary refill Abdominal: NABS x 4 quadrants, soft, nontender to palpation, no rebound, guar ding or tenderness Extremities: +R knee with ramiro bandage in place, c/d/i, , ice pack on, no peripheral edema or erythema, calfs nontender to palpation Psych: Normal mood and affect Neuro: AAO x 3 Results & Data Vital Signs (Past 12 Hours) Vital Signs Temp Pulse Pulse Resp BP Pulse Ox 06/12/19 15:24 99 H 96 06/12/19 15:16 36.9 C 119 H 18 120/69 94 PG Care Time/CCT Total # of Minutes Spent Total Time Spent with Patient: Total time spent is greater than 50% in coordination of care (as documented) at patient's floor/unit and/or counseling patient:
[2019-06-12] MEDS: ONDANSETRON INJ 2 MG/ML 2 ML VIAL IV PRN (21:57)
[2019-06-13] MEDS: ACETAMINOPHEN 500 MG TAB PO SCH ×3 (05:12→21:18)
[2019-06-13] MEDS ORDERED: CALCIUM CARBONATE 500 MG CHEWABLE TAB PO PRN (05:20)
[2019-06-13] MEDS ORDERED: ALUMINUM/MAGNESIUM SUSP 30 ML UDC PO PRN (05:20)
[2019-06-13 06:09] LABS: Basophils # (auto) 0.01 K/uL (0-0.2); Basophils % (auto) 0.1 %; Eosinophils # (auto) 0.27 K/uL (0-0.5); Eosinophils % (auto) 3.2 %; Hematocrit (blood only) 30.3 % (37-47); Hemoglobin 9.4 g/dL (12.0-16.0); Immature Granulocytes # (auto) 0.05 K/uL (0.00-0.02); Immature Granulocytes % (auto) 0.6 %; Lymphocytes # (auto) 1.36 K/uL (1.2-3.4); Lymphocytes % (auto) 16.1 %; Mean Corpuscular Hemoglobin 25.5 pg (25-34); Mean Corpuscular Volume 82.3 fL (80-100); Mean Platelet Volume 9.5 fL (7.4-10.4); Monocytes # (auto) 1.14 K/uL (0.11-0.59); Monocytes % (auto) 13.5 %; Neutrophils # (auto) 5.64 K/uL (1.4-6.5); Neutrophils % (auto) 66.5 %; Platelet Count 253 K/uL (130-400); RDW Coefficient of Variation 19.5 % (11.5-14.5); RDW Standard Deviation 58.9 fL (36.4-46.3); Red Blood Count 3.68 M/uL (4.2-5.4); White Blood Count 8.47 K/uL (4.8-10.8)
[2019-06-13] MEDS: ONDANSETRON INJ 2 MG/ML 2 ML VIAL IV PRN (06:10)
--- NOTE | 2019-06-13 06:51 | Orthopedic Progress Note ---
Date of Service June 13, 2019 Assessment & Plan (1) Infection of total right knee replacement: s/p explant right total knee, I+D, placement of antibiotic cement spacer POD#6 -IV abx Dapto per ID for 6-8 weeks -DVT ppx: SCDs, TEDs, Lovenox daily -Partial WB RLE, maintain KI at all times -PT/OT -Picc line placed. -am labs - hgb 8.7; acute post operative anemia secondary to intra-operative blood loss and dilutional effect. PRBC's transfused. -Medical hospitalist recs appreciated -acid reflux, started patient on protonix this a.m. -ID recs appreciated -I/O cultures growing E.Faecalis -DC planning - Considering [facility]/SNF vs services. Awaiting authorization. . Subjective Post Operative Progress Note Patient seen sitting up in bed, comfortable, denies complaints, pain well controlled, no acute issues. c/o nausea and acid reflux overnight Review of Systems Review of Systems: All systems reviewed & are unremarkable except as noted in HPI & below Constitutional: as per Subjective / HPI Physical Exam Physical Exam: RLE NVSI +EHL/FHL/TA/GS SILT grossly, +2 DP pulse, compartments soft NT, dressing cdi. Constitutional: WD/WN, vitals as above Results & Data Vital Signs (Past 12 Hours) Vital Signs Temp Pulse Resp BP Pulse Ox 06/13/19 06:26 36.6 C 101 H 18 144/77 H 98 06/12/19 23:00 37.1 C 99 H 16 146/83 H 92 Laboratory Results 06/13/19 06/12/19 06/12/19 Range/Units 05:40 07:26 07:26 WBC 8.47 8.46 (4.8-10.8) K/uL RBC 3.68 L 3.41 L (4.2-5.4) M/uL Hgb 9.4 L 8.7 L (12.0-16.0) g/dL Hct 30.3 L 28.0 L (37-47) % MCV 82.3 82.1 (80-100) fL MCH 25.5 25.5 (25-34) pg MCHC 31.0 L 31.1 L (32-36) g/dL RDW Std Deviation 58.9 H 59.3 H (36.4-46.3) fL RDW Coeff of Jarvis 19.5 H 19.5 H (11.5-14.5) % Plt Count 253 197 (130-400) K/uL MPV 9.5 9.0 (7.4-10.4) fL Immature Gran % (Auto) 0.6 % Neut % (Auto) 66.5 % Lymph % (Auto) 16.1 % [place] % (Auto) 13.5 % Eos % (Auto) 3.2 % Baso % (Auto) 0.1 % Immature Gran # (Auto) 0.05 H (0.00-0.02) K/uL Neut # (Auto) 5.64 (1.4-6.5) K/uL Lymph # (Auto) 1.36 (1.2-3.4) K/uL [place] # (Auto) 1.14 H (0.11-0.59) K/uL Eos # (Auto) 0.27 (0-0.5) K/uL Baso # (Auto) 0.01 (0-0.2) K/uL Sodium 141 (136-145) mmol/L Potassium 3.7 (3.5-5.1) mmol/L Chloride 106 (98-107) mmol/L Carbon Dioxide 30 (21-32) mmol/L Anion Gap 5.0 (3-11) BUN 12 (7-18) mg/dl Creatinine 0.56 L (0.6-1.2) mg/dl Est Cr Clr Drug Dosing 77.3 ml/min Est GFR ( Amer) 109.5 Est GFR (Non-Af Amer) 94.5 BUN/Creatinine Ratio 20.6 H (10-20) Glucose 108 H (70-99) mg/dl Calcium 10.7 H (8.5-10.1) mg/dl
[2019-06-13] MEDS: PANTOprazole 40 MG TAB PO SCH (07:27)
[2019-06-13] MEDS: OXYCODONE HCL IR 5 MG TAB (IMMEDIATE RELEASE) PO PRN ×2 (07:48→21:21)
[2019-06-13] MEDS: DOCUSATE SODIUM 100 MG CAP PO SCH ×2 (08:43→21:18)
[2019-06-13] MEDS: ENOXAPARIN INJ 30 MG/0.3 ML SYR SQ SCH (08:44)
[2019-06-13] MEDS: OXYBUTYNIN CHLORIDE 5 MG TAB PO SCH ×2 (08:44→21:19)
[2019-06-13] MEDS: GABAPENTIN 100 MG CAP PO SCH ×3 (08:46→21:18)
[2019-06-13] MEDS: predniSONE 5 MG TAB PO SCH (08:46)
[2019-06-13] MEDS: MULTIVITAMIN TAB PO SCH (08:46)
[2019-06-13] MEDS: DAPTOmycin 360 MG in SYRINGE 0 ML IV SCH (16:48)
[2019-06-13] MEDS: SENNA 8.6 MG TAB PO SCH (21:18)
[2019-06-13] MEDS: predniSONE 1 MG TAB PO SCH (21:19)
--- NOTE | 2019-06-13 22:47 | Hospitalist Progress Note ---
Date of Service June 13, 2019 Assessment & Plan (1) Infection of total right knee replacement: - S/p surgical procedure by Dr. Vela - Pain management and bowel regimen per the primary team -Patient develoeped anemia from acute blood loss. -Transfused 3 PRBC total Hb up to 9.4 today - no overt signs of bleeding, no BRBPR with BM -ID is consulted, Patient with what appears to be chronically infected right prosthetic knee now status post removal of prosthesis and placement of antibiotic spacer. require prolonged i.e. 6 to 8 weeks of IV antibiotics; will use daptomycin at current dose. will need to monitor cpk levels while on dpatomycin as an outpatient. will defer further input to ID. (2) Osteoporosis, unspecified: - Continue calcitrol 0.5 mcg capsule, calcium and Vit D supplementation (3) RA (rheumatoid arthritis): - Continue hydroxychloroquine 200 mg BID, prednisone 5 mg QAm and 1 mg QPM, gabapentin 100 mg TID for pain control - Was given dexamethasone 8 mg and hydrocortisone 50 mg administered intraop, will monitor BP this afternoon to determine if needs stress dosed steroids during hospital stay (4) History of hyperparathyroidism: -stable (5) Sciatica: - Continue pain control with hydrocodone-acetaminophen, gabapentin, and naproxen (6) History of Hodgkin's lymphoma: - Hx of such in 2003 (7) History of oral cancer: - Hx of such, s/p lesion excision tongue left side (no chemo/XRT 2013) (8) Acute blood loss anemia: As noted above.n. (9) Chronic reflux esophagitis: -Continue omeprazole 20 mg BID DVT ppx: jose roberto, scd on nonaffected leg, lovenox 30 mg subQ Thank you for involving us in the care of Mrs Esparza. Please do not hesitate to call with questions or concerns. Medicine service will sign off the case.. (10) Abdominal pain: described as a cramping pain, worse when she is going to move bowels likely a functional pain soft, NT on exam will continue to monitor (11) Diarrhea: describes loose stools but RN says they are soft will check C diff due to ongoing antibiotic therapy for knee Subjective patient with some abdominal cramping, pain associated with diarrhea today per the patient she is having diarrhea the RN reports that her stools are formed, definitely not liquid no fever, no nausea/vomiting, eating well actually no pain in right knee, remains immobilized appreciate plan from orthopedics d/w RN, try to get stool sample if she has liquid stools to r/o C diff in setting of antibiotics Review of Systems Review of Systems: All systems reviewed & are unremarkable except as noted in HPI & below Gastrointestinal: + abdominal pain (cramping pain) and + diarrhea/loose stools; no nausea and no vomiting Physical Exam Constitutional: WD/WN, vitals as above Eyes: PERRL, conjunctivae normal, anicteric sclerae ENMT: external ear and nose normal, oropharynx normal Neck: trachea midline, no thyromegaly Respiratory: normal respiratory effort, lungs clear to auscultation Cardiovascular: Rate/Rhythm: regular rhythm and + tachycardic Heart Sounds: normal S1 and normal S2; no murmur Vessels: no JVD Extremities: normal capillary refill; no edema Gastrointestinal (Abdomen): normal bowel sounds, soft, nontender, no hepatosplenomegaly Musculoskeletal: no cyanosis or clubbing, extremities motor strength 5/5 (right knee tender, immobilized) Skin: no rashes, warm and dry Neurologic: patellar DTR's 2+ bilat, sensation intact and PERRL, EOMI, accommodation nl, no face palsy, no dysarthria Psychiatric: A+Ox3, euthymic affect Lymphatic: no cervical or axillary lymphadenopathy Results & Data Vital Signs (Past 12 Hours) Vital Signs Temp Pulse Resp BP Pulse Ox 06/13/19 15:40 36.8 C 104 H 18 111/72 95 Laboratory Results Laboratory Results - last 24 hr 06/13/19 05:40 WBC 8.47 RBC 3.68 L Hgb 9.4 L Hct 30.3 L MCV 82.3 MCH 25.5 MCHC 31.0 L RDW Std Deviation 58.9 H RDW Coeff of Jarvis 19.5 H Plt Count 253 MPV 9.5 Immature Gran % (Auto) 0.6 Neut % (Auto) 66.5 Lymph % (Auto) 16.1 [place] % (Auto) 13.5 Eos % (Auto) 3.2 Baso % (Auto) 0.1 Immature Gran # (Auto) 0.05 H Neut # (Auto) 5.64 Lymph # (Auto) 1.36 [place] # (Auto) 1.14 H Eos # (Auto) 0.27 Baso # (Auto) 0.01 Medications Administered Current Inpatient Medications Acetaminophen (Tylenol) 1,000 mg PO Q8 ANGELO Stop: 07/07/19 14:18 Last Admin: 06/13/19 21:18 Dose: Not Given Documented by: Al Hydrox/Mg Hydrox/Simethicone (Maalox) 15 ml PO Q6H PRN PRN Reason: Dyspepsia Stop: 07/13/19 05:19 Last Admin: 06/13/19 05:38 Dose: 15 ml Documented by: Bisacodyl (Dulcolax) 10 mg [place] DAILY PRN PRN Reason: Constipation Stop: 07/07/19 14:18 Calcium Carbonate (Tums) 1,500 mg PO Q4 PRN PRN Reason: Indigestion Stop: 07/13/19 05:19 Diphenhydramine HCl (Benadryl Capsule) 25 mg PO Q8H PRN PRN Reason: Itching Stop: 07/07/19 14:18 Docusate Sodium (Colace) 100 mg PO BID [facility] Stop: 07/07/19 20:59 Last Admin: 06/13/19 21:18 Dose: Not Given Documented by: Enoxaparin Sodium (Lovenox) 30 mg SQ Q24H [facility] Stop: 07/08/19 08:59 Last Admin: 06/13/19 08:44 Dose: 30 mg Documented by: Gabapentin (Neurontin) 100 mg PO TID [facility] Stop: 07/07/19 14:18 Last Admin: 06/13/19 21:18 Dose: 100 mg Documented by: Heparin Sodium (Beef Lung) (Heparin Sod 10 Unit/Ml Flush) 5 ml FLUSH PRN PRN PRN Reason: Flush Stop: 07/10/19 16:26 Last Admin: 06/13/19 16:48 Dose: 5 ml Documented by: Hydromorphone HCl (Dilaudid) 0.5 mg IV Q4H PRN PRN Reason: Pain Stop: 06/21/19 14:18 Last Admin: 06/09/19 11:20 Dose: 0.5 mg Documented by: Prochlorperazine 10 mg/ (Syringe) 10 mls @ 5 mls/min IV Q8H PRN PRN Reason: Nausea And Vomiting Stop: 07/07/19 14:31 Daptomycin 360 mg/ Syringe 7.2 mls @ 3.6 mls/min IV Q24H [facility]; Protocol Stop: 07/20/19 15:59 Last Admin: 06/13/19 16:48 Dose: 3.6 mls/min Documented by: Magnesium Hydroxide (Milk Of Magnesia) 30 ml PO Q6H PRN PRN Reason: Constipation Stop: 07/07/19 14:18 Metoclopramide HCl (Reglan) 10 mg IV Q6H PRN PRN Reason: Nausea And Vomiting Stop: 07/07/19 14:18 Multivitamins (Multivitamin Tab) 1 tab PO [facility] Stop: 07/08/19 08:59 Last Admin: 06/13/19 08:46 Dose: Not Given Documented by: Naloxone HCl (Narcan) 0.1 mg IV Q5M PRN PRN Reason: Oversedation/Resp Depression Stop: 07/07/19 14:18 Ondansetron HCl (Zofran) 4 mg IV Q6H PRN PRN Reason: Nausea And Vomiting Stop: 07/07/19 14:18 Last Admin: 06/13/19 06:10 Dose: 4 mg Documented by: Oxybutynin Chloride (Ditropan) 5 mg PO BID [facility] Stop: 07/07/19 20:59 Last Admin: 06/13/19 21:19 Dose: 5 mg Documented by: Oxycodone HCl (Roxicodone Immediate Rel) 5 - 10 mg PO Q4H PRN PRN Reason: Pain Stop: 06/21/19 14:18 Last Admin: 06/13/19 21:21 Dose: 10 mg Documented by: Pantoprazole Sodium (Protonix) [facility] Stop: 07/13/19 08:59 Last Admin: 06/13/19 07:27 Dose: 40 mg Documented by: Prednisone (Prednisone) 5 mg PO QAM [facility] Stop: 07/09/19 08:59 Last Admin: 06/13/19 08:46 Dose: 5 mg Documented by: Prednisone (Prednisone) 1 mg PO QPM [facility] Stop: 07/08/19 20:59 Last Admin: 06/13/19 21:19 Dose: 1 mg Documented by: Sennosides (Senokot) 17.2 mg PO HS [facility] Stop: 07/07/19 20:59 Last Admin: 06/13/19 21:18 Dose: Not Given Documented by: PG Care Time/CCT Total # of Minutes Spent Total Time Spent with Patient: Total time spent is greater than 50% in coordination of care (as documented) at patient's floor/unit and/or counseling patient:
[2019-06-14] MEDS: ACETAMINOPHEN 500 MG TAB PO SCH ×2 (05:41→13:30)
[2019-06-14 06:42] LABS: Basophils # (auto) 0.02 K/uL (0-0.2); Basophils % (auto) 0.2 %; Eosinophils # (auto) 0.38 K/uL (0-0.5); Eosinophils % (auto) 3.5 %; Hematocrit (blood only) 30.2 % (37-47); Hemoglobin 9.2 g/dL (12.0-16.0); Immature Granulocytes # (auto) 0.07 K/uL (0.00-0.02); Immature Granulocytes % (auto) 0.6 %; Lymphocytes # (auto) 1.68 K/uL (1.2-3.4); Lymphocytes % (auto) 15.3 %; Mean Corpuscular Hemoglobin 25.2 pg (25-34); Mean Corpuscular Hgb Conc 30.5 g/dL (32-36); Mean Corpuscular Volume 82.7 fL (80-100); Mean Platelet Volume 9.5 fL (7.4-10.4); Monocytes # (auto) 1.49 K/uL (0.11-0.59); Monocytes % (auto) 13.6 %; Neutrophils # (auto) 7.35 K/uL (1.4-6.5); Neutrophils % (auto) 66.8 %; Platelet Count 262 K/uL (130-400); RDW Coefficient of Variation 19.5 % (11.5-14.5); RDW Standard Deviation 59.3 fL (36.4-46.3); Red Blood Count 3.65 M/uL (4.2-5.4); White Blood Count 10.99 K/uL (4.8-10.8)
[2019-06-14] MEDS: DOCUSATE SODIUM 100 MG CAP PO SCH (08:59)
[2019-06-14] MEDS: ENOXAPARIN INJ 30 MG/0.3 ML SYR SQ SCH (09:00)
[2019-06-14] MEDS: OXYBUTYNIN CHLORIDE 5 MG TAB PO SCH (09:00)
[2019-06-14] MEDS: predniSONE 5 MG TAB PO SCH (09:01)
[2019-06-14] MEDS: GABAPENTIN 100 MG CAP PO SCH ×2 (09:01→13:30)
[2019-06-14] MEDS: PANTOprazole 40 MG TAB PO SCH (09:01)
[2019-06-14] MEDS: MULTIVITAMIN TAB PO SCH (09:01)
--- NOTE | 2019-06-14 09:58 | Orthopedic Progress Note ---
Date of Service June 14, 2019 Assessment & Plan (1) Infection of total right knee replacement: s/p explant right total knee, I+D, placement of antibiotic cement spacer POD#7 -IV abx Dapto per ID for 6-8 weeks -DVT ppx: SCDs, TEDs, Lovenox daily -Partial WB RLE, maintain KI at all times -PT/OT -Picc line placed. -am labs - hgb 9.2; acute post operative anemia secondary to intra-operative blood loss and dilutional effect. -Medical hospitalist recs appreciated -acid reflux, started patient on protonix this a.m. -ID recs appreciated -I/O cultures growing E.Faecalis -DC planning -Home with home health . Subjective Post Operative Progress Note Patient seen sitting up in bed, comfortable, denies complaints, pain well controlled, no acute issues. Abdominal discomfort has improved, denies fevers, chills, nausea, vomiting, diarrhea, shortness of breath or chest pain Review of Systems Review of Systems: All systems reviewed & are unremarkable except as noted in HPI & below Physical Exam Physical Exam: RLE NVSI +EHL/FHL/TA/GS SILT grossly, +2 DP pulse, compartments soft NT, dressing cdi. Knee immobilizer in place. Constitutional: WD/WN, vitals as above Results & Data Vital Signs (Past 12 Hours) Vital Signs Temp Pulse Resp BP Pulse Ox 06/14/19 07:19 36.7 C 108 H 18 128/74 94 06/13/19 22:55 37.3 C 06/13/19 22:50 37.7 C H 109 H 16 126/71 93 Laboratory Results 06/14/19 Range/Units 06:08 WBC 10.99 H (4.8-10.8) K/uL RBC 3.65 L (4.2-5.4) M/uL Hgb 9.2 L (12.0-16.0) g/dL Hct 30.2 L (37-47) % MCV 82.7 (80-100) fL MCH 25.2 (25-34) pg MCHC 30.5 L (32-36) g/dL RDW Std Deviation 59.3 H (36.4-46.3) fL RDW Coeff of Jarvis 19.5 H (11.5-14.5) % Plt Count 262 (130-400) K/uL MPV 9.5 (7.4-10.4) fL Immature Gran % (Auto) 0.6 % Neut % (Auto) 66.8 % Lymph % (Auto) 15.3 % [place] % (Auto) 13.6 % Eos % (Auto) 3.5 % Baso % (Auto) 0.2 % Immature Gran # (Auto) 0.07 H (0.00-0.02) K/uL Neut # (Auto) 7.35 H (1.4-6.5) K/uL Lymph # (Auto) 1.68 (1.2-3.4) K/uL [place] # (Auto) 1.49 H (0.11-0.59) K/uL Eos # (Auto) 0.38 (0-0.5) K/uL Baso # (Auto) 0.02 (0-0.2) K/uL
[2019-06-14] MEDS: OXYCODONE HCL IR 5 MG TAB (IMMEDIATE RELEASE) PO PRN (11:13)
[2019-06-14] MEDS: DAPTOmycin 360 MG in SYRINGE 0 ML IV SCH (13:29)
--- NOTE | 2019-06-19 15:36 | Discharge Summary ---
Date of Service June 14, 2019 Admission HPI Per Admitting Provider The patient is a 68 year old female who presents with chronic hx for right knee PJI. The patient underwent primary right TKA 02/[address] Cheung, developed post-operative infection and underwent I+D with poly exchange 02/[address] Cheung and IV cubacin. Intra-operative cultures were positive for MSSA. Two weeks later the patient had subsequent wound dehiscence which was treated conservative with wound care and chronic suppressive abx. The patient did well for a time however the patient developed a draining sinus tract from the same area as before in November 2018. The patient has failed outpatient conservative treatments to this point which included wound care, chronic suppressive abx and immobilization. The patient has synovial fluid draining from her sinus tract which measures roughly 2cm x 2cm. A knee aspiration was performed which had a cell count of 564, negative cultures and GS . The patient's pain and limited function have progressed to the point where they severely hinder their activiti es of daily living and they no longer tolerate conservative treatments. They are requesting to proceed with explant right total knee arthroplasty and placement of antibiotic cement spacer. Principal Diagnosis Explant right total knee, I+D, placement of antibiotic cement spacer, revision of surgical scar, excision of sinus tract. Discharge Exam RLE NVSI +EHL/FHL/TA/GS SILT grossly, +2 DP pulse, compartments soft NT, incision cdi Constitutional WD/WN, vitals as above Discharge Data Allergies Allergy/AdvReac Type Severity Reaction Status Date / Time dalbavancin Allergy Severe hypotension, Verified 06/16/19 15:20 flushing, tachypnea Consultations 06/07/19 14:19 Consult Case Management - Discharge Planning Routine Consult Hospitalist Routine Consult Infectious Diseases Routine Procedures Performed Operation Date: 06/07/19 09:15 Actual Procedures p Right Total Knee Arthroplasty Explant, Incision and Drainage, Antibiotic Cement Spacer(Right) - Ihsan Vela DO Ordered Studies 06/07/19 05:00 US - OR guided needle placemen Routine Hospital Course (1) Infection of total right knee replacement: The patient is a 68 -year-old female who presents with 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 The patient's symptoms have progressed to the point where it has been difficult to perform even normal activities of daily living. I indicated the patient for explant right total knee, I+D, placement of antibiotic cement spacer, the risks, benefits and complications of the procedure include but not limited to infection, bleeding, damage to bone, nerves, vessels, surrounding soft tissue, may develop blood clots, loss of function, leg length discrepancy, dislocation, failure of the components, loosening of the components, the need for additional surgery and . The patient wished to proceed with surgery at this time and informed consent was obtained. Hospital Course: On 06/07/19 the patient was taken to the operating room, adequate anesthesia administered and underwent a explant right total knee, I+D, placement of antibiotic cement spacer. The patient tolerated the procedure well and was taken to the PACU in stable condition. Post-operatively the patient was started on a DVT ppx medication and given appropriate IV antibiotics. Consults were placed to ID, medical hospitalist, physical therapy, occupational therapy and c ase management. POD#1 -IV abx Dapto per ID -DVT ppx: SCDs, TEDs, Lovenox daily -Partial WB RLE -PT/OT -PO XR demonstrates a well aligned well fixed abx cement spacer without fracture/dislocation. -am labs - hgb check on 11/05/18 6.3, now 9.0, s/p 2 units of PRBC on 11/05/18. Acute post operative anemia secondary to intra-operative blood loss and dilusional effect. -Medical hospitalist consult -ID consult, recs appreciated -F/U IO cultures: growing gram + cocci -hmv drain output 50/200 -DC planning POD#2 -IV abx Dapto per ID -DVT ppx: SCDs, TEDs, Lovenox daily -Partial WB RLE, maintain KI at all times -PT/OT -PO XR demonstrates a well aligned well fixed abx cement spacer without fracture/dislocation. -am labs - hgb 8.1 Acute post operative anemia secondary to intra-operative blood loss and dilusional effect. -Medical hospitalist recs appreciated -ID recs appreciated -I/O cultures growing gram + cocci -hmv drain output 25/750 -DC planning Dressings were changed at this time and the incision was clean, dry and intact. POD#3 -IV abx Dapto per ID for 6-8 weeks -DVT ppx: SCDs, TEDs, Lovenox daily -Partial WB RLE, maintain KI at all times -PT/OT -Picc line placement today. -am labs - hgb 7.8 Acute post operative anemia secondary to intra-operative blood loss and dilusional effect. 1 unit of PRBC's ordered by Med Service. -Medical hospitalist recs appreciated -ID recs appreciated -I/O cultures growing E.Faecalis -DC planning - Considering [facility] rehab/SNF vs HH services. POD#4 -IV abx Dapto per ID for 6-8 weeks -DVT ppx: SCDs, TEDs, Lovenox daily -Partial WB RLE, maintain KI at all times -PT/OT -Picc line placed. -am labs - hgb 8.5 acute post operative anemia secondary to intra-operative blood loss and dilusional effect. Status post 1 unit of PRBC's -Medical hospitalist recs appreciated -ID recs appreciated -I/O cultures growing E.Faecalis -DC planning - Considering [facility] vs HH services. POD#5 -IV abx Dapto per ID for 6-8 weeks -DVT ppx: SCDs, TEDs, Lovenox daily -Partial WB RLE, maintain KI at all times -PT/OT -Picc line placed. -am labs - hgb 8.7; acute post operative anemia secondary to intra-operative blood loss and dilutional effect. PRBC's transfused. -Medical hospitalist recs appreciated -ID recs appreciated -I/O cultures growing E.Faecalis -DC planning - Considering [facility] vs HH services. Awaiting authorization. POD#6 -IV abx Dapto per ID for 6-8 weeks -DVT ppx: SCDs, TEDs, Lovenox daily -Partial WB RLE, maintain KI at all times -PT/OT -Picc line placed. -am labs - hgb 8.7; acute post operative anemia secondary to intra-operative blood loss and dilutional effect. PRBC's transfused. -Medical hospitalist recs appreciated -acid reflux, started patient on protonix this a.m. -ID recs appreciated -I/O cultures growing E.Faecalis -DC planning - Considering [facility] vs HH services. [facility] denies by insurance POD#7 -IV abx Dapto per ID for 6-8 weeks -DVT ppx: SCDs, TEDs, Lovenox daily -Partial WB RLE, maintain KI at all times -PT/OT -Picc line placed. -am labs - hgb 9.2; acute post operative anemia secondary to intra-operative blood loss and dilutional effect. -Medical hospitalist recs appreciated -acid reflux, c/o acid reflux resolved -ID recs appreciated -I/O cultures growing E.Faecalis -DC planning -Home with home health The patients hospital stay was relatively uneventful and they were deemed stable by the orthopedic team and consultants to be discharged home with on 06/14/19. Discharge Instructions: Upon discharge the patient may weight bear 50% through their operative extremity. They were instructed to keep the incision clean and dry at all times. The patient may shower but should not submerge the incision, avoid bathing, pools and hot tubes. The patient was given a script for pain medication and should take as instructed. The patient was given a script for DVT ppx Lovenox daily and should take as directed. The patient was instructed to not drive or travel for long distances until cleared to do so. If the patient develops any symptoms of fevers, chills, nausea, vomiting, increased redness, swelling, pain or drainage from the surgical site, they should notify the office and/or proceed to the nearest emergency room. The patient should follow up in 10-14 days after surgery for their routine post-operative follow-up appointment and should call the office to confirm the date and time. s/p explant right total knee, I+D, placement of antibiotic cement spacer POD#1 -IV abx Dapto per ID -DVT ppx: SCDs, TEDs, Lovenox daily -Partial WB RLE -PT/OT -PO XR demonstrates a well aligned well fixed abx cement spacer without fracture/dislocation. -am labs - hgb check on 11/05/18 6.3, now 9.0, s/p 2 units of PRBC on 11/05/18. Acute post operative anemia secondary to intra-operative blood loss and dilusional effect. -Medical hospitalist consult -ID consult, recs appreciated -F/U IO cultures: growing gram + cocci -hmv drain output 50/200 -DC planning POD#2 -IV abx Dapto per ID -DVT ppx: SCDs, TEDs, Lovenox daily -Partial WB RLE, maintain KI at all times -PT/OT -PO XR demonstrates a well aligned well fixed abx cement spacer without fracture/dislocation. -am labs - hgb 8.1 Acute post operative anemia secondary to intra-operative blood loss and dilusional effect. -Medical hospitalist recs appreciated -ID recs appreciated -I/O cultures growing gram + cocci -hmv drain output 25/750 -DC planning POD#3 -IV abx Dapto per ID for 6-8 weeks -DVT ppx: SCDs, TEDs, Lovenox daily -Partial WB RLE, maintain KI at all times -PT/OT -Picc line placement today. -am labs - hgb 7.8 Acute post operative anemia secondary to intra-operative blood loss and dilusional effect. 1 unit of PRBC's ordered by Med Service. -Medical hospitalist recs appreciated -ID recs appreciated -I/O cultures growing E.Faecalis -DC planning - Considering [facility] vs HH services. POD#4 -IV abx Dapto per ID for 6-8 weeks -DVT ppx: SCDs, TEDs, Lovenox daily -Partial WB RLE, maintain KI at all times -PT/OT -Picc line placed. -am labs - hgb 8.5 acute post operative anemia secondary to intra-operative blood loss and dilusional effect. Status post 1 unit of PRBC's -Medical hospitalist recs appreciated -ID recs appreciated -I/O cultures growing E.Faecalis -DC planning - Considering [facility] vs HH services. POD#5 -IV abx Dapto per ID for 6-8 weeks -DVT ppx: SCDs, TEDs, Lovenox daily -Partial WB RLE, maintain KI at all times -PT/OT -Picc line placed. -am labs - hgb 8.7; acute post operative anemia secondary to intra-operative b lood loss and dilutional effect. PRBC's transfused. -Medical hospitalist recs appreciated -ID recs appreciated -I/O cultures growing E.Faecalis -DC planning - Considering [facility] vs HH services. Awaiting authorization. POD#6 -IV abx Dapto per ID for 6-8 weeks -DVT ppx: SCDs, TEDs, Lovenox daily -Partial WB RLE, maintain KI at all times -PT/OT -Picc line placed. -am labs - hgb 8.7; acute post operative anemia secondary to intra-operative blood loss and dilutional effect. PRBC's transfused. -Medical hospitalist recs appreciated -acid reflux, started patient on protonix this a.m. -ID recs appreciated -I/O cultures growing E.Faecalis -DC planning - Considering [facility] vs services. [facility] denies by insurance POD#7 -IV abx Dapto per ID for 6-8 weeks -DVT ppx: SCDs, TEDs, Lovenox daily -Partial WB RLE, maintain KI at all times -PT/OT -Picc line placed. -am labs - hgb 9.2; acute post operative anemia secondary to intra-operative blood loss and dilutional effect. -Medical hospitalist recs appreciated -acid reflux, started patient on protonix this a.m. -ID recs appreciated -I/O cultures growing E.Faecalis -DC planning -Home with home health Total Time Total Time Spent Total Time Spent (In Minutes): >60 minutes Discharge Plan Discharge Items Patient Disposition: Home - Home Health Services Reason For Visit: RIGHT KNEE PRESENCE OF ORTHOPEDIC JOINT IMPLANTS Discharge Diagnosis: Explant right total knee, I+D, placement of antibiotic cement spacer Condition on Discharge: Good Activity: Per Instructions section Lifting: Wait until after follow-up appointment Bathing: Keep incision dry Bathing Comment: No bathing, pools or hot tubs. Sexual Activity: Wait until after follow-up appointment Exercise/Sports: Wait until after follow-up appointment Driving/Machine Use: No driving Weightbearing: Right partial Non-emergency contact: Primary Care Provider and Surgeon Call non-emergency contact if: you have any medication questions, your symptoms worsen, your pain is not controlled, your pain is worsening, your pain is unusual for you, your pain is concerning for you, you have a fever, your temperature is above 101, your wound has increased redness, your wound has increased drainage and your wound pain has increased Follow-up/Referrals: Sylvia Nails MD [Primary Care Provider] - Diet: Regular Addtl Attending Provider Instructions: ACTIVITY RECOMMENDATIONS: SELF CARE INSTRUCTIONS AFTER Explant right total knee, placement of antibiotic cement spacer A. You may need to continue a physical therapy program after discharge from the hospital. There are several options available to you. Your doctor will assist you in selecting the best one for you. 1. An out-patient facility 2 to 3 times a week for therapy or home therapy. 2. Continue working on all exercises taught to you in the hospital. Keep knee straight and immobilized at all times B. You may progress at your own pace from walking with a walker or crutches to a cane; maintain partial weight bearing right lower extremity at all times C. Make walking a part of your daily routine. Be up as much as comfortable with rest periods throughout the day. Rest with leg elevation is very important. Use the ice wrap frequently for the first 3-4 weeks. D. There are no restrictions on activities. You may ride in a car, shop, participate in contact centre supervisor and all social activities. E. Wear the long elastic stockings (JAMAAL hose) 20 hours a day for 2 weeks after surgery. They can be removed several times a day for laundering and for a bath. F. You may shower, no tub baths until cleared by your doctor. SPECIAL CARE INSTRUCTIONS: VERY IMPORTANT TO READ AND REVIEW A. There are a few signs you need to watch for after you are home. Call [facility] [place] if you notice any of the followin. Increased severe knee pain. Some pain is expected especially when you exercise. 2. Increased swelling in your leg or knee; pain or swelling of the calf muscle in either lower leg. 3. Any fluid drainage from the incision. 4. Shortness of breath or chest pain. B. Please call [facility] at if you have any concerns or questions about your operation or recovery. The doctor or his nurse will return your call promptly. C. You must take antibiotics before dental work, bladder, bowel or other surgery. Your doctor will provide you with a permanent care to carry describing this precaution. IMPORTANT: * REMEMBER TO TAKE Lovenox 30mg DAILY FOR 4 WEEKS UNLESS OTHERWISE DIRECTED. THIS IS YOUR BLOOD THINNER. * HIGH RISK PATIENTS MAY BE PRESCRIBED A STRONGER BLOOD THINNER. THIS WILL BE PROVIDED AT DISCHARGE. * CALL IF INCREASED PAIN, REDNESS, DRAINAGE OR FEVER GREATER THAT 101. * WEAR JAMAAL HOSE 20 HOURS PER DAY FOR 2 WEEKS. * YOU MAY HAVE A LARGE BAND-AID LIKE DRESSING (SILVERON). THIS WILL REMAIN ON YOUR INCISION FOR 7 DAYS, THEN CAN BE REMOVED. IF INCISION IS LEAKING THROUGH DRESSING, CALL THE OFFICE . FOLLOW UP VISIT: If appointment is not already scheduled: Please call [facility] [place] to make a follow-up appointment for 2 weeks after your surgery at . Follow up with infectous disease (Dr [facility] ID department) in 2 weeks, and your PCP post operatively, weekly lab draws. Important to hold your home medication for Rheumatoid Arthritis, Plaquinil and Leflunomide for 2 weeks post operatively. Pending Studies at Discharge: No Stand-Alone Forms: My [facility], Opioid Pain Management Medications and DC Order Prescriptions: New enoxaparin [Lovenox] 30 mg/0.3 mL Syringe 30 mg subcut Q24H 28 Days Qty: 28 RF: 0 acetaminophen [Tylenol Extra Strength] 500 mg Tablet 1,000 mg PO Q8 PRN (Reason: Pain) Qty: 90 RF: 0 oxycodone 5 mg Tablet 5 mg PO Q6H MDD 6 tabs PRN (Reason: pain) Qty: 30 RF: 0 sennosides [Senokot] 8.6 mg Tablet 17.2 mg PO HS PRN (Reason: constipation) Qty: 28 RF: 0 daptomycin 500 mg recon soln 360 mg IV DAILY 42 Days Qty: 1 RF: 0 pantoprazole 40 mg Tablet,Delayed Release (Dr/Ec) 40 mg PO QAM Qty: 30 RF: 0 Continued calcitriol 0.5 mcg capsule 0.5 mcg PO QPM RF: 0 oxybutynin chloride 5 mg tablet 5 mg PO BID Qty: 180 RF: 1 (DME) Knee Stabilizer misc See Dose Instructions .ROUTE .MEDSUPPLY Qty: 1 RF: 0 prednisone 5 mg Tablet 5 mg PO QAM RF: 0 prednisone 1 mg Tablet 1 mg PO PM RF: 0 gabapentin 100 mg Capsule 100 mg PO TID RF: 0 Probiotic 3 billion cell Capsule 3,000 mmu cells PO QAM RF: 0 Macuvite [facility] 7,160 unit-113 mg-100 unit Tablet 1 tab PO QAM RF: 0 omeprazole 20 mg capsule,delayed release(DR/EC) 20 mg PO BID RF: 0 cranberry 500 mg Capsule 500 mg PO HS RF: 0 Calcium 600 + D(3) 600 mg calcium- 200 unit Capsule 1 cap PO BID RF: 0 Discontinued hydroxychloroquine [Plaquenil] 200 mg tablet 200 mg PO BID RF: 0 leflunomide 20 mg tablet 20 mg PO QAM RF: 0 naproxen 500 mg tablet 500 mg PO BID PRN (Reason: pain) RF: 0 hydrocodone-acetaminophen [Finley] 10-325 mg tablet 1 tab PO QID PRN (Reason: pain) RF: 0 sennosides [senna] 8.6 mg Tablet 17.2 mg PO HS RF: 0 acetaminophen [Tylenol Extra Strength] 500 mg Tablet 1,000 mg PO Q8 PRN (Reason: fever or pain) Qty: 90 RF: 0 cefadroxil 500 mg Capsule 500 mg PO QAM RF: 0 Discharge Orders: Discharge Order (Routine); Ordered 06/14/19 Ordered By: Theron Hardy/Other Patient Handouts: DVT Prevent, PICC Care Dc Admission Data Admit Date/Time: 06/07/19 12:36 Attending Provider: Ihsan Vela Admit Provider: Ihsan Vela Primary Care Provider: Sylvia Nails Other Providers: Dean Wilson ; [facility] ; Hai Reid ; Earline Carbajal Other Interventions: Discharge Summary Assessment (RN) Last Done: 06/14/19 10:19 DC Date/Time DO NOT enter until pt leaves facility: 06/14/19 14:41
== END 2019-06-14 14:41 | disposition home health service (06) | DRG 464 ==
LOC: ASU 06:54 → 3E 12:36

== ENCOUNTER 2019-06-16 13:35 | Inpatient (IN) ==
[2019-06-16] MEDS ORDERED: SODIUM CHLORIDE 0.9% 500 ML IV SCH (14:45)
--- NOTE | 2019-06-16 14:47 | Emergency Department Note ---
Entered by Monster Casanova acting as a scribe for History of Present Illness General Chief complaint: Arrhythmia/Palpitations Stated complaint: CHEST PAIN, IRREGULAR HEARTBEAT Time Seen by Provider: 06/16/19 14:29 Source: patient History of Present Illness Onset (ago): hour(s) (this morning) Location: chest Pain Consistency: + intermittent Maximum Pain Intensity: 4 Quality: + other (palpitations) Associated symptoms: + denies other symptoms (fevers); no nausea/vomiting The patient is a 68 y/o female who presents to the ED w/ CC of intermittent palpitations beginning this morning. The patient states her home-health nurse told her to come to the ED for an irregular heart rate. She reports she does not have a history of a-fib and is currently on Lovenox shots. The patient notes she also discussed her case with her PCP and was told to come to the ED. She states for the past two days, she has had intermittent chest spasms that she thought was muscular. The patient reports deep breathing increases her chest discomfort. She denies fevers, nausea, and vomiting. Home Medications Home Medications Medication Instructions Recorded Confirmed Type Probiotic 3,000 mmu cells PO QAM 03/30/18 06/16/19 History gabapentin 100 mg PO TID 03/30/18 06/16/19 History prednisone 1 mg PO PM 03/30/18 06/16/19 History prednisone 5 mg PO QAM 03/30/18 06/16/19 History cranberry 500 mg PO HS 09/29/18 06/16/19 History omeprazole 20 mg PO BID 09/29/18 06/16/19 History [facility] 1 tab PO QAM 10/08/18 06/16/19 History oxybutynin chloride 5 mg tablet 5 mg PO BID #180 tab 12/10/18 06/16/19 Rx calcitriol 0.5 mcg capsule 0.5 mcg PO QPM 02/10/19 06/16/19 History leg brace #1 ea 02/10/19 06/16/19 Rx Calcium 600 + D(3) 1 cap PO BID 06/07/19 06/16/19 History acetaminophen [Tylenol Extra 1,000 mg PO Q8 PRN #90 tab 06/09/19 06/16/19 Rx Strength] enoxaparin [Lovenox] 30 mg SUBCUT Q24H 28 Days #28 syr 06/09/19 06/16/19 Rx oxycodone 5 mg PO Q6H PRN #30 tab MDD 6 tabs 06/09/19 06/16/19 Rx sennosides [Senokot] 17.2 mg PO HS PRN #28 tab 06/09/19 06/16/19 Rx daptomycin 360 mg IV DAILY 42 Days #1 ea 06/11/19 06/16/19 Rx pantoprazole 40 mg PO QAM #30 tab 06/13/19 06/16/19 Rx Allergies Allergy/AdvReac Type Severity Reaction Status Date / Time dalbavancin Allergy Severe hypotension, Verified 06/16/19 15:20 flushing, tachypnea Past Med/Surg History Medical History DDD (degenerative disc disease) GERD (gastroesophageal reflux disease) History of Hodgkin's lymphoma 2004/PCP under surveillance History of oral cancer s/p tongue excision left side (no chemo/XRT 2013) RA (rheumatoid arthritis) on chronic steroids Surgical History Cancer (Chronic) TONGUE EXCISION LEFT SIDE H/O foot surgery (Resolved) TOES X MULTIPLE H/O parathyroidectomy (Resolved) History of carpal tunnel release (Resolved) RIGHT History of hip surgery R/L REVISION History of total hip arthroplasty (Resolved) R/L History of total knee replacement (Resolved) R/L Status post knee surgery REVISION RIGHT KNEE 02/2016 Family History Other Family history non-contributory Social History Preferred Language: Uzbek Communication Ability: Effective Visual Impairment: Limited 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: Normal Childcare Attendant Required: No Beliefs That Will Affect Care: None marital status: Current Living Situation: Spouse current occupational status: retired Other Information That Helps Us Care for You: No Feels Safe at Home: Yes Safety Concerns: Feels Safe At This Time Smoking Status: Never smoker Do You Dip or Chew Tobacco: No ; Second Hand Exposure: No ; Tobacco Cessation Education Requested by Patient: No Hx Alcohol Use: No Hx Substance Use: No Childhood Exposure to Second-Hand Smoke: Yes Seatbelt Use: always Review of Systems See HPI for pertinent positives & negatives. and A total of 10 systems reviewed and were otherwise negative Physical Exam Vital Signs Vital Signs - 24 hr 06/16/19 14:23 06/16/19 14:25 06/16/19 14:44 Temperature Pulse Rate 111 H Pulse Rate [Apical] 129 H Pulse Rate from SpO2 Sensor 130 H Respiratory Rate 23 28 H Blood Pressure 128/59 L Blood Pressure [Left Arm] 128/59 L Blood Pressure Mean 81 Blood Pressure Mean [Left Arm] 82 Pulse Oximetry 98 94 94 Oxygen Delivery Method Room Air Room Air 06/16/19 14:46 06/16/19 15:00 06/16/19 15:30 Temperature Pulse Rate 135 H 134 H 135 H Pulse Rate [Apical] Pulse Rate from SpO2 Sensor 138 H 133 H Respiratory Rate 34 H 21 24 Blood Pressure Blood Pressure [Left Arm] Blood Pressure Mean Blood Pressure Mean [Left Arm] Pulse Oximetry 95 92 Oxygen Delivery Method 06/16/19 16:00 06/16/19 16:13 06/16/19 16:30 Temperature Pulse Rate 126 H 112 H 115 H Pulse Rate [Apical] Pulse Rate from SpO2 Sensor 133 H 105 H 107 H Respiratory Rate 30 H 33 H 36 H Blood Pressure 115/70 121/52 L Blood Pressure [Left Arm] Blood Pressure Mean 88 84 Blood Pressure Mean [Left Arm] Pulse Oximetry 88 L 92 89 L Oxygen Delivery Method 06/16/19 17:00 06/16/19 19:00 06/16/19 19:15 Temperature Pulse Rate 135 H 137 H 128 H Pulse Rate [Apical] Pulse Rate from SpO2 Sensor 132 H 113 H Respiratory Rate 37 H 30 H 32 H Blood Pressure 117/68 133/66 Blood Pressure [Left Arm] Blood Pressure Mean 100 88 Blood Pressure Mean [Left Arm] Pulse Oximetry 100 100 Oxygen Delivery Method 06/16/19 19:30 06/16/19 19:40 06/16/19 19:50 Temperature 37.8 C H Pulse Rate 130 H 135 H 121 H Pulse Rate [Apical] Pulse Rate from SpO2 Sensor 106 H 123 H 109 H Respiratory Rate 38 H 32 H 32 H Blood Pressure 134/60 Blood Pressure [Left Arm] Blood Pressure Mean 72 Blood Pressure Mean [Left Arm] Pulse Oximetry 100 100 98 Oxygen Delivery Method 06/16/19 20:00 06/16/19 20:01 06/16/19 20:10 Temperature Pulse Rate 139 H 131 H 133 H Pulse Rate [Apical] Pulse Rate from SpO2 Sensor 133 H 138 H 129 H Respiratory Rate 26 H 25 H 26 H Blood Pressure 99/63 L Blood Pressure [Left Arm] Blood Pressure Mean 68 Blood Pressure Mean [Left Arm] Pulse Oximetry 99 95 98 Oxygen Delivery Method 06/16/19 20:20 06/16/19 20:30 06/16/19 20:31 Temperature Pulse Rate 135 H 113 H 131 H Pulse Rate [Apical] Pulse Rate from SpO2 Sensor 132 H 113 H 123 H Respiratory Rate 35 H 24 32 H Blood Pressure 130/63 Blood Pressure [Left Arm] Blood Pressure Mean 88 Blood Pressure Mean [Left Arm] Pulse Oximetry 98 99 99 Oxygen Delivery Method 06/16/19 20:40 06/16/19 20:50 06/16/19 21:00 Temperature Pulse Rate 125 H 130 H 109 H Pulse Rate [Apical] Pulse Rate from SpO2 Sensor 140 H 118 H 111 H Respiratory Rate 32 H 37 H 34 H Blood Pressure 128/64 Blood Pressure [Left Arm] Blood Pressure Mean 71 Blood Pressure Mean [Left Arm] Pulse Oximetry 98 99 100 Oxygen Delivery Method 06/16/19 21:10 06/16/19 21:20 06/16/19 21:30 Temperature Pulse Rate 140 H 126 H 127 H Pulse Rate [Apical] Pulse Rate from SpO2 Sensor 115 H 121 H 134 H Respiratory Rate 34 H 36 H 34 H Blood Pressure 117/61 Blood Pressure [Left Arm] Blood Pressure Mean 64 Blood Pressure Mean [Left Arm] Pulse Oximetry 97 99 95 Oxygen Delivery Method 06/16/19 21:40 06/16/19 21:50 06/16/19 22:00 Temperature Pulse Rate 127 H 135 H 139 H Pulse Rate [Apical] Pulse Rate from SpO2 Sensor 136 H 131 H 126 H Respiratory Rate 25 H 35 H 36 H Blood Pressure Blood Pressure [Left Arm] Blood Pressure Mean Blood Pressure Mean [Left Arm] Pulse Oximetry 98 98 99 Oxygen Delivery Method GENERAL: Patient is awake alert in no acute distress patient is resting comfortably and showing no signs of anxiety EYES: The conjunctivae are clear. The pupils are round and reactive. EARS, NOSE, MOUTH AND THROAT: The nose is without any evidence of any deformity. Mucous membranes are moist. Tongue is midline. NECK: The neck is nontender and supple. RESPIRATORY: Diminished breath sounds are noted in the left lung field. There are rales throughout the left lung field. CARDIOVASCULAR: Tachycardic rate with ectopy was noted. There was no definite murmur. GASTROINTESTINAL: The abdomen is soft. Abdomen is nontender. MUSCULOSKELETAL/EXTREMITIES: Knee immobilizer was noted on the right lower extremity. SKIN: There is no obvious evidence of any rash. No significant pedal edema was noted. NEUROLOGIC: Patient is awake alert and oriented x3. Course Course 1431: Past medical records reviewed. The patient was evaluated in room A12B. A complete history and physical exam was performed. 1913: Upon reevaluation, the patient is resting comfortably. I discussed laboratory and radiographic results with her. She verbalized agreement of the treatment plan. The patient will be evaluated for further management and care. 1918: I paged the [facility] Hospitalist team. 2034: The patient now has a fever. Administered Medications Acetaminophen (Tylenol) 650 mg PO Q4H PRN PRN Reason: Pain or Fever Stop: 07/17/19 03:45 Last Admin: 06/17/19 04:00 Dose: 650 mg Documented by: [id number] Cholestyramine Resin (Questran) 4 gm PO BID@1000,2200 [facility] Stop: 07/17/19 09:59 Last Admin: 06/17/19 11:36 Dose: 4 gm Documented by: [id number] Enoxaparin Sodium (Lovenox) 30 mg SQ Q24H [facility] Stop: 07/17/19 08:59 Last Admin: 06/17/19 09:18 Dose: 30 mg Documented by: [id number] Gabapentin (Neurontin) 100 mg PO TID [facility] Stop: 07/17/19 08:59 Last Admin: 06/17/19 13:54 Dose: 100 mg Documented by: [id number] Admin: 06/17/19 09:20 Dose: 100 mg Documented by: [id number] Sodium Chloride (Nss 1000ml) 1,000 mls @ 111 mls/hr IV .Q9H1M [facility] Stop: 07/17/19 04:44 Last Admin: 06/17/19 05:06 Dose: 80 mls/hr Documented by: [id number] Piperacillin Sod/Tazobactam (Sod 3.375 gm/ Dextrose) 115 mls @ 28.75 mls/hr IV Q8H [facility]; Protocol Stop: 06/19/19 05:00 Last Admin: 06/17/19 11:36 Dose: 28.8 mls/hr Documented by: [id number] Daptomycin 360 mg/ Syringe 7.2 mls @ 0 mls/min IV Q24H [facility]; Protocol Stop: 07/29/19 13:29 Last Admin: 06/17/19 13:54 Dose: 2 mls/min Documented by: [id number] Hydrocortisone Sodium (Succinate 25 mg/ Syringe) 0.5 mls @ 4 mls/min IV Q8H [facility] Stop: 06/17/19 21:01 Last Admin: 06/17/19 13:55 Dose: 4 mls/min Documented by: [id number] Admin: 06/17/19 05:18 Dose: 4 mls/min Documented by: [id number] Ioversol (Optiray 320 125ml) 119 ml IV ONCE PRN PRN Reason: Interaction Checking Stop: 06/20/19 16:40 Last Admin: 06/16/19 16:41 Dose: 119 ml Documented by: [id number] Lactobacillus Acidophilus (Floranex) 4 tab PO [facility] Stop: 07/17/19 08:59 Last Admin: 06/17/19 09:20 Dose: 4 tab Documented by: [id number] Oxybutynin Chloride (Ditropan) 5 mg PO BID [facility] Stop: 07/17/19 08:59 Last Admin: 06/17/19 09:20 Dose: 5 mg Documented by: [id number] Oxycodone HCl (Roxicodone Immediate Rel) 5 mg PO Q6H PRN PRN Reason: Pain Stop: 07/01/19 00:14 Last Admin: 06/17/19 13:53 Dose: 5 mg Documented by: [id number] Admin: 06/17/19 01:19 Dose: 5 mg Documented by: [id number] Pantoprazole Sodium (Pro[facility]ix) [facility] [place] Stop: 07/17/19 08:59 Last Admin: 06/17/19 09:20 Dose: 40 mg Documented by: [id number] Discontinued Medications Sodium Chloride (Nss) 500 mls @ 999 mls/hr IV .Q31M [facility] Stop: 06/16/19 15:15 Last Admin: 06/16/19 15:07 Dose: Not Given Documented by: [id number] Magnesium Sulfate/Dextrose (Magnesium Sulfate / D5w) 1 gm in 100 mls @ 100 mls/hr IV ONE ONE Stop: 06/16/19 16:22 Last Infusion: 06/16/19 17:54 Dose: 0 mls/hr Documented by: [id number] Admin: 06/16/19 16:11 Dose: 100 mls/hr Documented by: [id number] Furosemide 40 mg/ Albumin (Human) 54 mls @ 54 mls/hr IV ONE ONE Stop: 06/16/19 22:25 Last Infusion: 06/16/19 23:16 Dose: 0 mls/hr Documented by: [id number] Admin: 06/16/19 21:58 Dose: 54 mls/hr Documented by: [id number] Piperacillin Sod/Tazobactam (Sod 3.375 gm/ Dextrose) 115 mls @ 230 mls/hr IV ONE ONE; Protocol Stop: 06/17/19 05:14 Last Infusion: 06/17/19 05:59 Dose: 0 mls/hr Documented by: [id number] Admin: 06/17/19 05:18 Dose: 230 mls/hr Documented by: [id number] Metoprolol Tartrate (Lopressor) 5 mg IV NOW STA Stop: 06/17/19 02:55 Last Admin: 06/17/19 03:21 Dose: 5 mg Documented by: [id number] Medical Decision Making Differential Diagnosis Differential diagnoses includes but is not limited to pneumonia, bronchitis, COPD/Asthma exacerbation, pneumothorax, pulmonary embolism, congestive heart failure, acute coronary syndrome Medical Records Attestation: I reviewed the patient's medical records. Home Medications Current Medication List: was personally reviewed by me Laboratory Data Attestation: I reviewed the patient's lab results. Result diagrams: 06/17/19 04:48 06/17/19 04:48 Lab Results 06/16/19 06/16/19 06/16/19 Range/Units 14:39 14:39 14:39 WBC 19.41 H (4.8-10.8) K/uL RBC 3.39 L (4.2-5.4) M/uL Hgb 8.6 L (12.0-16.0) g/dL Hct 27.9 L (37-47) % MCV 82.3 (80-100) fL MCH 25.4 (25-34) pg MCHC 30.8 L (32-36) g/dL RDW Std Deviation 58.9 H (36.4-46.3) fL RDW Coeff of Jarvis 19.3 H (11.5-14.5) % Plt Count 304 (130-400) K/uL MPV 9.4 (7.4-10.4) fL Immature Gran % (Auto) 0.4 % Neut % (Auto) 85.8 % Lymph % (Auto) 5.8 % Sebastian % (Auto) 7.5 % Eos % (Auto) 0.2 % Baso % (Auto) 0.3 % Immature Gran # (Auto) 0.07 H (0.00-0.02) K/uL Neut # (Auto) 16.67 H (1.4-6.5) K/uL Lymph # (Auto) 1.12 L (1.2-3.4) K/uL Sebastian # (Auto) 1.46 H (0.11-0.59) K/uL Eos # (Auto) 0.04 (0-0.5) K/uL Baso # (Auto) 0.05 (0-0.2) K/uL PT 13.2 H (9.0-12.0) Seconds INR 1.3 H (0.9-1.1) APTT 30.0 (21.0-31.0) Seconds PTT Ratio 1.1 Sodium (136-145) mmol/L Potassium (3.5-5.1) mmol/L Chloride (98-107) mmol/L Carbon Dioxide (21-32) mmol/L Anion Gap (3-11) BUN (7-18) mg/dl Creatinine (0.6-1.2) mg/dl Est Cr Clr Drug Dosing ml/min Est GFR ( Amer) Est GFR (Non-Af Amer) BUN/Creatinine Ratio (10-20) Glucose (70-99) mg/dl Calcium (8.5-10.1) mg/dl Magnesium Cancelled Total Bilirubin (0.2-1) mg/dl AST (15-37) U/L ALT (12-78) U/L Alkaline Phosphatase (45-117) U/L Troponin I (0-0.045) ng/ml NT-Pro-B Natriuret Pep (0-900) pg/ml Total Protein (6.4-8.2) gm/dl Albumin (3.4-5.0) gm/dl Globulin (2.5-4.0) gm/dl Albumin/Globulin Ratio (0.9-2) Procalcitonin (0-0.5) ng/ml 06/16/19 06/16/19 06/16/19 Range/Units 14:39 14:39 14:40 WBC (4.8-10.8) K/uL RBC (4.2-5.4) M/uL Hgb (12.0-16.0) g/dL Hct (37-47) % MCV (80-100) fL MCH (25-34) pg MCHC (32-36) g/dL RDW Std Deviation (36.4-46.3) fL RDW Coeff of Jarvis (11.5-14.5) % Plt Count (130-400) K/uL MPV (7.4-10.4) fL Immature Gran % (Auto) % Neut % (Auto) % Lymph % (Auto) % Sebastian % (Auto) % Eos % (Auto) % Baso % (Auto) % Immature Gran # (Auto) (0.00-0.02) K/uL Neut # (Auto) (1.4-6.5) K/uL Lymph # (Auto) (1.2-3.4) K/uL Sebastian # (Auto) (0.11-0.59) K/uL Eos # (Auto) (0-0.5) K/uL Baso # (Auto) (0-0.2) K/uL PT (9.0-12.0) Seconds INR (0.9-1.1) APTT (21.0-31.0) Seconds PTT Ratio Sodium 137 (136-145) mmol/L Potassium 3.8 (3.5-5.1) mmol/L Chloride 103 (98-107) mmol/L Carbon Dioxide 27 (21-32) mmol/L Anion Gap 7.0 (3-11) BUN 20 H (7-18) mg/dl Creatinine 0.85 (0.6-1.2) mg/dl Est Cr Clr Drug Dosing 50.9 ml/min Est GFR ( Amer) 80.5 Est GFR (Non-Af Amer) 69.4 BUN/Creatinine Ratio 23.2 H (10-20) Glucose 110 H (70-99) mg/dl Calcium 9.8 (8.5-10.1) mg/dl Magnesium 1.6 L Total Bilirubin 0.6 (0.2-1) mg/dl AST 22 (15-37) U/L ALT 46 (12-78) U/L Alkaline Phosphatase 172 H (45-117) U/L Troponin I 0.082 H* (0-0.045) ng/ml NT-Pro-B Natriuret Pep 1122 H (0-900) pg/ml Total Protein 6.2 L (6.4-8.2) gm/dl Albumin 2.0 L (3.4-5.0) gm/dl Globulin 4.2 H (2.5-4.0) gm/dl Albumin/Globulin Ratio 0.5 L (0.9-2) Procalcitonin 1.23 H (0-0.5) ng/ml Imaging Data Radiologist's Impression: Radiology results as stated below per my review and the radiologist's interpretation: XR chest 1V portable CLINICAL HISTORY: Dyspnea dyspnea COMPARISON STUDY: 10/15/2018 FINDINGS: Central catheter placed in the superior vena cava. No evidence of pneumothorax. Prominent parenchymal markings and vasculature. Small bilateral pleural effusions. IMPRESSION: 1. Developing components of mild congestive heart failure. 2. Trace pleural fluid costophrenic angles bilaterally. 3. Central catheter in superior vena cava. The above report was generated using voice recognition software. It may contain grammatical, syntax or spelling errors. Electronically signed by: Paco Parry M.D. 06/16/2019 3:[address] ANGIOGRAPHY OF THE CHEST, PULMONARY EMBOLUS PROTOCOL CLINICAL HISTORY: Chest pain. Evaluate for pulmonary embolus. COMPARISON STUDY: Chest radiographs October 15, 2018 and June 16, 2019. PET/CT December 15, 2011. TECHNIQUE: Following IV administration of 119 mL of Optiray-320, helical axial images of the chest were obtained utilizing the pulmonary embolus protocol. Maximal intensity projections and sagittal and coronal reformats were viewed on an independent 3D workstation. IV contrast was administered without complication. Automated exposure control was utilized for the study. A dose lowering technique was utilized adhering to the principles of ALARA. CT DOSE: 315.95 mGy.cm FINDINGS: [Bladder identified. The heart is mildly enlarged. There is no thoracic aortic dissection. No enlarged thoracic lymph nodes are present. Small bilateral pleural effusions are noted with associated atelectasis. Interlobular septal thickening is noted. There are scattered subpleural groundglass opacit ies. Mild bronchiectasis is most evident within the left upper lobe. There is no pneumothorax. 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 Note is made of asymmetric increased density of the medullary canal of visualized portions of the left humerus. There is also possible endosteal scalloping. Upper abdomen is unremarkable. IMPRESSION: 1. No pulmonary emboli identified. 2. Small bilateral pleural effusions with mild interstitial pulmonary edema. 3. Scattered subpleural groundglass opacities. This may reflect interstitial lung disease given bronchiectasis. However, pulmonary edema or an infectious process could appear similar. 4. Asymmetric increased attenuation of the medullary space of the left humerus with possible endosteal scalloping. This could reflect physiologic variation or artifact. However, a neoplastic process cannot be excluded. A nonemergent whole body bone scan is recommended. Electronically signed by: Devon Zee M.D. 06/16/2019 5:11 PM ECG Data Attestation: I personally reviewed and interpreted this ECG as follows: Indication: + palpitations Rate (beats per minute): 139 Rhythm: + sinus tachycardia ECG ST segments: + Nonspecific ST abnormalities (anterior leads) ECG Findings: + PACs Comparison ECG Date: from (10/15/18) Change: the following changes noted Additional Comments: ST abnormalities are new Blood Pressure Blood Pressure Findings: Elevated blood pressure Blood Pressure Disposition: further management by hospitalist BONNIE Simmons The patient is a 5-year-old female who is currently being treated with IV antibiotics for an infection in her knee from a previous prosthesis. The patient presented to the emergency department for an evaluation of palpitations. A visiting nurse noted the patient was having sinus tachycardia in the 140s. The patient presented to the emergency department by ambulance for further evaluation. Lung sounds were diminished throughout and I felt her condition could be consistent with pulmonary edema. She was found to have signs of pleural effusions on CT of the chest. The patient had a low-grade fever and an elevation in her white blood cell count compared to previous. I discussed the patient's laboratory and radiographic studies with her. I was very concerned about her overall condition given her hypoxia and these new pleural effusions. For this reason I discussed her case with the on-call mount and the hospitalist group. They have agreed to evaluate the patient in the emergency department for further management and disposition. The patient was placed on supplemental oxy gen with significant improvement of her symptoms. Impression & Plan Shortness of breath, Sinus tachycardia, Pleural effusion, Fever, Infection of knee Discharge Plan Visit Data *Final* Discharge Date/Time: 06/16/19 23:18 Chief Complaint: Arrhythmia/Palpitations Stated Complaint: CHEST PAIN, IRREGULAR HEARTBEAT ED Provider: Edd Pedro Discharge Problem: Shortness of breath, Sinus tachycardia, Pleural effusion, Fever, Infection of knee Patient Disposition: Admitted As Inpatient Discharge Instructions Interventions: ED Discharge Assessment Last Done: 06/16/19 23:18 Discharge Problem: Fever Qualifiers: Fever type: unspecified Qualified Code(s): R50.9 - Fever, unspecified The scribe's documentation has been prepared under my direction and personally reviewed by me in its entirety. I confirm that the note above accurately reflects all work, treatment, procedures, and medical decision making performed by me.
[2019-06-16 14:49] LABS: Basophils # (auto) 0.05 K/uL (0-0.2); Basophils % (auto) 0.3 %; Eosinophils # (auto) 0.04 K/uL (0-0.5); Eosinophils % (auto) 0.2 %; Hematocrit (blood only) 27.9 % (37-47); Hemoglobin 8.6 g/dL (12.0-16.0); Immature Granulocytes # (auto) 0.07 K/uL (0.00-0.02); Immature Granulocytes % (auto) 0.4 %; Lymphocytes # (auto) 1.12 K/uL (1.2-3.4); Lymphocytes % (auto) 5.8 %; Mean Corpuscular Hemoglobin 25.4 pg (25-34); Mean Corpuscular Hgb Conc 30.8 g/dL (32-36); Mean Corpuscular Volume 82.3 fL (80-100); Mean Platelet Volume 9.4 fL (7.4-10.4); Monocytes # (auto) 1.46 K/uL (0.11-0.59); Monocytes % (auto) 7.5 %; Neutrophils # (auto) 16.67 K/uL (1.4-6.5); Neutrophils % (auto) 85.8 %; Platelet Count 304 K/uL (130-400); RDW Coefficient of Variation 19.3 % (11.5-14.5); RDW Standard Deviation 58.9 fL (36.4-46.3); Red Blood Count 3.39 M/uL (4.2-5.4); White Blood Count 19.41 K/uL (4.8-10.8)
--- NOTE | 2019-06-16 15:02 | XRay Report ---
XR chest 1V portable CLINICAL HISTORY: Dyspnea dyspnea COMPARISON STUDY: 10/15/2018 FINDINGS: Central catheter placed in the superior vena cava. No evidence of pneumothorax. Prominent parenchymal markings and vasculature. Small bilateral pleural effusions. IMPRESSION: 1. Developing components of mild congestive heart failure. 2. Trace pleural fluid costophrenic angles bilaterally. 3. Central catheter in superior vena cava. The above report was generated using voice recognition software. It may contain grammatical, syntax or spelling errors. Electronically signed by: Paco Parry M.D. 06/16/2019 3:01 PM
[2019-06-16 15:05] LABS: INR 1.3 (0.9-1.1); Partial Thromboplastin Ratio 1.1; Prothrombin Time 13.2 Seconds (9.0-12.0)
[2019-06-16 15:16] LABS: BUN Creatinine Ratio 23.2 (10-20); Calcium 9.8 mg/dl (8.5-10.1); Creatinine Clr Calc Pharmacy 50.9 ml/min; Est GFR (African American) 80.5; Est GFR (Non-African American) 69.4; Magnesium 1.6 mg/dl (1.8-2.4); Potassium 3.8 mmol/L (3.5-5.1)
[2019-06-16] MEDS ORDERED: MAGNESIUM SULFATE / D5W 1 GM/100 ML BAG IV ONE (15:23)
[2019-06-16 15:32] LABS: Albumin Globulin Ratio 0.5 (0.9-2); Bilirubin,Total 0.6 mg/dl (0.2-1); Globulin 4.2 gm/dl (2.5-4.0); Total Protein 6.2 gm/dl (6.4-8.2); Troponin I 0.082 ng/ml (0-0.045)
[2019-06-16] MEDS ORDERED: OPTIRAY 320 125ml IV PRN (16:41)
--- NOTE | 2019-06-16 17:12 | CT Scan Report ---
CT ANGIOGRAPHY OF THE CHEST, PULMONARY EMBOLUS PROTOCOL CLINICAL HISTORY: Chest pain. Evaluate for pulmonary embolus. COMPARISON STUDY: Chest radiographs October 15, 2018 and June 16, 2019. PET/CT December 15, 2011. TECHNIQUE: Following IV administration of 119 mL of Optiray-320, helical axial images of the chest we re obtained utilizing the pulmonary embolus protocol. Maximal intensity projections and sagittal and coronal reformats were viewed on an independent 3D workstation. IV contrast was administered withou t complication. Automated exposure control was utilized for the study. A dose lowering technique wa s utilized adhering to the principles of ALARA. CT DOSE: 315.95 mGy.cm FINDINGS: [Bladder identified. The heart is mildly enlarged. There is no thoracic aortic dissection. No enlarged thoracic lymph nodes are present. Small bilateral pleural effusions are noted with assoc iated atelectasis. Interlobular septal thickening is noted. There are scattered subpleural groundglas s opacities. Mild bronchiectasis is most evident within the left upper lobe. There is no pneumothorax . 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 Note is made of as ymmetric increased density of the medullary canal of visualized portions of the left humerus. There i s also possible endosteal scalloping. Upper abdomen is unremarkable. IMPRESSION: 1. No pulmonary emboli identified. 2. Small bilateral pleural effusions with mild interstitial pulmonary edema. 3. Scattered subpleural groundglass opacities. This may reflect interstitial lung disease given bronc hiectasis. However, pulmonary edema or an infectious process could appear similar. 4. Asymmetric increased attenuation of the medullary space of the left humerus with possible endostea l scalloping. This could reflect physiologic variation or artifact. However, a neoplastic process can not be excluded. A nonemergent whole body bone scan is recommended. Electronically signed by: Devon Zee M.D. 06/16/2019 5:11 PM
[2019-06-16] MEDS ORDERED: ALBUMIN 25% 50 ML with FUROSEMIDE 40 MG IV ONE (21:26)
[2019-06-16] MEDS ORDERED: SENNA 8.6 MG TAB PO PRN (21:47)
[2019-06-16] MEDS ORDERED: [UNRECOGNIZED DRUG - OTHER] SCH (22:00)
--- NOTE | 2019-06-16 22:25 | History & Physical Report ---
Date of Service June 16, 2019 Assessment & Plan (1) Shortness of breath: Patient is a 68-year-old female PMH GERD, hyperparathyroid, vertigo, history of oral cancer, Hodgkin's lymphoma, presents on POD #9 to antibiotic spacer of R knee with palpitations and increased work of breathing. Shortness of breath/sinus tachycardia/Fever Patient with new elevated white cell count, increased work of breathing, sinus tachycardia Despite daptomycin use, concern is for systemic infection. Await blood cultures which are pending. We will continue daptomycin and broaden the spectrum of antibiotics by adding Zosyn. -With new sinus tachycardia, as well as elevated troponin, concern is also present for a type II AR, endocarditis. -We will repeat troponin, (may be related to demand ischemia), and order echocardiogram for the morning -Chest imaging reveals small pleural effusions mild evidence of CHF, therefore patient given albumin with Lasix in the ER. Gentle IV fluid supplementation Pro-Dylan mildly elevated, lactate of 1.2. Patient's extremely concerned for her wellbeing, requests infectious disease consult. Discussed with patient that cultures would not be resulted for 48 hours, however he would like to speak with the infectious disease physician. Orthopedic consult also placed. Diarrhea -C. difficile testing ordered on admission, resulted at time of dictation as negative. Continue probiotic We will add cholestyramine to regimen. Rheumatoid arthritis Continue daily steroid therapy We will add stress dose steroids x24 hours. Osteoporosis Hold Calcitrol, calcium, vitamin D. Code: Full Dispo: Telemetry DVTP: Lovenox (2) Sinus tachycardia: (3) Pleural effusion: (4) Fever: (5) Infection of knee: (6) Diarrhea: (7) RA (rheumatoid arthritis): History of Present Illness Chief Complaint: Palpitations, SOB, general malaise Primary Care Provider: Sylvia Nails MD Patient is a 68-year-old female PMH GERD, hyperparathyroid, vertigo, history of oral cancer, Hodgkin's lymphoma who presents 2 days after discharge from this facility with complaints of palpitation, shortness of breath, chest spasms, and general malaise. Patient is POD #9 status post explant right total knee, I&D, placement of antibiotic cement spacer of right knee. She was discharged on daptomycin per ID for 6-8 weeks. Patient had home health present today who felt that she had an irregular heartbeat. Her , who provides most of the history, notes that she has also been having increased work of breathing. On arrival to the ER, she had an elevated temperature, but states she did not feel feverish at home. She also notes a 2-day history of chest spasms, which she originally thought were musculoskeletal in nature. Patient's only other complaint was diarrhea, which she states has been present since starting antibiotics during her last admission. She believes that her knee pain has been under pretty good control, citing oxycodone and Tylenol use at home In the ER, initial work-up revealed an elevated white blood cell count of 19, hemoglobin of 8.6, relatively normal BMP, INR 1.3 mag of 1.6 and notably, an elevated troponin of 0.082. she was also noted to have a BNP level of 1122. Chest x-ray revealed evidence of mild CHF, as well as trace pleural effusions. CT angio revealed small pleural effusions as well. Blood cultures were sent and are currently pending. Allergies Allergy/AdvReac Type Severity Reaction Status Date / Time dalbavancin Allergy Severe hypotension, Verified 06/16/19 15:20 flushing, tachypnea Home Medications Home Medications Medication Instructions Recorded Confirmed Type Probiotic 3,000 mmu cells PO QAM 03/30/18 06/16/19 History gabapentin 100 mg PO TID 03/30/18 06/16/19 History prednisone 1 mg PO PM 03/30/18 06/16/19 History prednisone 5 mg PO QAM 03/30/18 06/16/19 History cranberry 500 mg PO HS 09/29/18 06/16/19 History omeprazole 20 mg PO BID 09/29/18 06/16/19 History Macuvite [facility] Care 1 tab PO QAM 10/08/18 06/16/19 History oxybutynin chloride 5 mg tablet 5 mg PO BID #180 tab 12/10/18 06/16/19 Rx calcitriol 0.5 mcg capsule 0.5 mcg PO QPM 02/10/19 06/16/19 History leg brace #1 ea 02/10/19 06/16/19 Rx Calcium 600 + D(3) 1 cap PO BID 06/07/19 06/16/19 History acetaminophen [Tylenol Extra 1,000 mg PO Q8 PRN #90 tab 06/09/19 06/16/19 Rx Strength] enoxaparin [Lovenox] 30 mg SUBCUT Q24H 28 Days #28 syr 06/09/19 06/16/19 Rx oxycodone 5 mg PO Q6H PRN #30 tab MDD 6 tabs 06/09/19 06/16/19 Rx sennosides [Senokot] 17.2 mg PO HS PRN #28 tab 06/09/19 06/16/19 Rx daptomycin 360 mg IV DAILY 42 Days #1 ea 06/11/19 06/16/19 Rx pantoprazole 40 mg PO QAM #30 tab 06/13/19 06/16/19 Rx Past Med/Surg History Medical History DDD (degenerative disc disease) GERD (gastroesophageal reflux disease) History of Hodgkin's lymphoma 2004/PCP under surveillance History of oral cancer s/p tongue excision left side (no chemo/XRT 2013) RA (rheumatoid arthritis) on chronic steroids Surgical History Cancer (Chronic) TONGUE EXCISION LEFT SIDE H/O foot surgery (Resolved) TOES X MULTIPLE H/O parathyroidectomy (Resolved) History of carpal tunnel release (Resolved) RIGHT History of hip surgery R/L REVISION History of total hip arthroplasty (Resolved) R/L History of total knee replacement (Resolved) R/L Status post knee surgery REVISION RIGHT KNEE 02/2016 Family History Other Family history non-contributory Social History Preferred Language: Tajik Communication Ability: Effective Visual Impairment: Limited 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: Normal 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 Beliefs That Will Affect Care: None marital status: Current Living Situation: Spouse current occupational status: retired Other Information That Helps Us Care for You: No Feels Safe at Home: Yes Safety Concerns: Feels Safe At This Time Smoking Status: Never smoker Do You Dip or Chew Tobacco: No ; Second Hand Exposure: No ; Tobacco Cessation Education Requested by Patient: No Hx Alcohol Use: No Hx Substance Use: No Childhood Exposure to Second-Hand Smoke: Yes Seatbelt Use: always Review of Systems Review of Systems: All systems reviewed & are unremarkable except as noted in HPI & below Please see HPI for relevant positives on review of systems. A total of 10 systems reviewed and otherwise negative Physical Exam Physical Exam: General: Unwelll-appearing female, in obvious discomfort, however not in distress HEENT: No scleral icterus, PERRLA, neck supple. Atraumatic. Cardiovascular: Regular rate and rhythm, no extra sounds. Pulmonary: Clear to auscultation bilaterally, minimal bibasilar crackles, increased work of breathing. Abdomen: Soft, nontender, nondistended, positive bowel sounds. Musculoskeletal: Atraumatic, no peripheral edema. Neurologic: Patient awake alert and oriented x 3, full strength in all 4 extremities. Cranial nerves 2 through 12 grossly intact. Skin: Warm, dry, no rash Results & Data Vital Signs (Past 12 Hours) Vital Signs Temp Pulse Pulse Resp BP BP Pulse Ox 06/16/19 22:20 129 H 42 H 06/16/19 22:10 123 H 33 H 06/16/19 22:00 139 H 36 H 99 06/16/19 21:50 135 H 35 H 98 06/16/19 21:40 127 H 25 H 98 06/16/19 21:30 127 H 34 H 117/61 95 06/16/19 21:20 126 H 36 H 99 06/16/19 21:10 140 H 34 H 97 06/16/19 21:00 109 H 34 H 128/64 100 06/16/19 20:50 130 H 37 H 99 06/16/19 20:40 125 H 32 H 98 06/16/19 20:31 131 H 32 H 130/63 99 06/16/19 20:30 113 H 24 99 06/16/19 20:20 135 H 35 H 98 06/16/19 20:10 133 H 26 H 98 06/16/19 20:01 131 H 25 H 99/63 L 95 06/16/19 20:00 139 H 26 H 99 06/16/19 19:50 121 H 32 H 98 06/16/19 19:40 100.0 F H 135 H 32 H 100 06/16/19 19:30 130 H 38 H 134/60 100 06/16/19 19:15 128 H 32 H 100 06/16/19 19:00 137 H 30 H 133/66 100 06/16/19 17:00 135 H 37 H 117/68 06/16/19 16:30 115 H 36 H 121/52 L 89 L 06/16/19 16:13 112 H 33 H 115/70 92 06/16/19 16:00 126 H 30 H 88 L 06/16/19 15:30 135 H 24 92 06/16/19 15:00 134 H 21 06/16/19 14:46 135 H 34 H 95 06/16/19 14:44 94 06/16/19 14:25 129 H 28 H 128/59 L 94 06/16/19 14:23 111 H 23 128/59 L 98 06/16/19 14:09 99.1 F 124 H 22 118/67 95 Laboratory Results 06/17/19 06/17/19 06/16/19 Range/Units 00:28 00:15 14:40 WBC (4.8-10.8) K/uL RBC (4.2-5.4) M/uL Hgb (12.0-16.0) g/dL Hct (37-47) % MCV (80-100) fL MCH (25-34) pg MCHC (32-36) g/dL RDW Std Deviation (36.4-46.3) fL RDW Coeff of Jarvis (11.5-14.5) % Plt Count (130-400) K/uL MPV (7.4-10.4) fL Immature Gran % (Auto) % Neut % (Auto) % Lymph % (Auto) % [place] % (Auto) % Eos % (Auto) % Baso % (Auto) % Immature Gran # (Auto) (0.00-0.02) K/uL Neut # (Auto) (1.4-6.5) K/uL Lymph # (Auto) (1.2-3.4) K/uL [place] # (Auto) (0.11-0.59) K/uL Eos # (Auto) (0-0.5) K/uL Baso # (Auto) (0-0.2) K/uL PT (9.0-12.0) Seconds INR (0.9-1.1) APTT (21.0-31.0) Seconds PTT Ratio Sodium (136-145) mmol/L Potassium (3.5-5.1) mmol/L Chloride (98-107) mmol/L Carbon Dioxide (21-32) mmol/L Anion Gap (3-11) BUN (7-18) mg/dl Creatinine (0.6-1.2) mg/dl Est Cr Clr Drug Dosing ml/min Est GFR ( Amer) Est GFR (Non-Af Amer) BUN/Creatinine Ratio (10-20) Glucose (70-99) mg/dl Lactate 1.2 (0.4-2.0) mmol/L Calcium (8.5-10.1) mg/dl Magnesium Total Bilirubin (0.2-1) mg/dl AST (15-37) U/L ALT (12-78) U/L Alkaline Phosphatase (45-117) U/L Troponin I (0-0.045) ng/ml NT-Pro-B Natriuret Pep (0-900) pg/ml Total Protein (6.4-8.2) gm/dl Albumin (3.4-5.0) gm/dl Globulin (2.5-4.0) gm/dl Albumin/Globulin Ratio (0.9-2) Procalcitonin 1.23 H (0-0.5) ng/ml Stl C. diff Tox B Gene Negative Cdiff Gene (Neg) 06/16/19 06/16/19 06/16/19 Range/Units 14:39 14:39 14:39 WBC (4.8-10.8) K/uL RBC (4.2-5.4) M/uL Hgb (12.0-16.0) g/dL Hct (37-47) % MCV (80-100) fL MCH (25-34) pg MCHC (32-36) g/dL RDW Std Deviation (36.4-46.3) fL RDW Coeff of Jarvis (11.5-14.5) % Plt Count (130-400) K/uL MPV (7.4-10.4) fL Immature Gran % (Auto) % Neut % (Auto) % Lymph % (Auto) % [place] % (Auto) % Eos % (Auto) % Baso % (Auto) % Immature Gran # (Auto) (0.00-0.02) K/uL Neut # (Auto) (1.4-6.5) K/uL Lymph # (Auto) (1.2-3.4) K/uL [place] # (Auto) (0.11-0.59) K/uL Eos # (Auto) (0-0.5) K/uL Baso # (Auto) (0-0.2) K/uL PT 13.2 H (9.0-12.0) Seconds INR 1.3 H (0.9-1.1) APTT 30.0 (21.0-31.0) Seconds PTT Ratio 1.1 Sodium 137 (136-145) mmol/L Potassium 3.8 (3.5-5.1) mmol/L Chloride 103 (98-107) mmol/L Carbon Dioxide 27 (21-32) mmol/L Anion Gap 7.0 (3-11) BUN 20 H (7-18) mg/dl Creatinine 0.85 (0.6-1.2) mg/dl Est Cr Clr Drug Dosing 50.9 ml/min Est GFR ( Amer) 80.5 Est GFR (Non-Af Amer) 69.4 BUN/Creatinine Ratio 23.2 H (10-20) Glucose 110 H (70-99) mg/dl Lactate (0.4-2.0) mmol/L Calcium 9.8 (8.5-10.1) mg/dl Magnesium 1.6 L Total Bilirubin 0.6 (0.2-1) mg/dl AST 22 (15-37) U/L ALT 46 (12-78) U/L Alkaline Phosphatase 172 H (45-117) U/L Troponin I 0.082 H* (0-0.045) ng/ml NT-Pro-B Natriuret Pep 1122 H (0-900) pg/ml Total Protein 6.2 L (6.4-8.2) gm/dl Albumin 2.0 L (3.4-5.0) gm/dl Globulin 4.2 H (2.5-4.0) gm/dl Albumin/Globulin Ratio 0.5 L (0.9-2) Procalcitonin (0-0.5) ng/ml Stl C. diff Tox B Gene (Neg) 06/16/19 06/16/19 Range/Units 14:39 14:39 WBC 19.41 H (4.8-10.8) K/uL RBC 3.39 L (4.2-5.4) M/uL Hgb 8.6 L (12.0-16.0) g/dL Hct 27.9 L (37-47) % MCV 82.3 (80-100) fL MCH 25.4 (25-34) pg MCHC 30.8 L (32-36) g/dL RDW Std Deviation 58.9 H (36.4-46.3) fL RDW Coeff of Jarvis 19.3 H (11.5-14.5) % Plt Count 304 (130-400) K/uL MPV 9.4 (7.4-10.4) fL Immature Gran % (Auto) 0.4 % Neut % (Auto) 85.8 % Lymph % (Auto) 5.8 % [place] % (Auto) 7.5 % Eos % (Auto) 0.2 % Baso % (Auto) 0.3 % Immature Gran # (Auto) 0.07 H (0.00-0.02) K/uL Neut # (Auto) 16.67 H (1.4-6.5) K/uL Lymph # (Auto) 1.12 L (1.2-3.4) K/uL [place] # (Auto) 1.46 H (0.11-0.59) K/uL Eos # (Auto) 0.04 (0-0.5) K/uL Baso # (Auto) 0.05 (0-0.2) K/uL PT (9.0-12.0) Seconds INR (0.9-1.1) APTT (21.0-31.0) Seconds PTT Ratio Sodium (136-145) mmol/L Potassium (3.5-5.1) mmol/L Chloride (98-107) mmol/L Carbon Dioxide (21-32) mmol/L Anion Gap (3-11) BUN (7-18) mg/dl Creatinine (0.6-1.2) mg/dl Est Cr Clr Drug Dosing ml/min Est GFR ( Amer) Est GFR (Non-Af Amer) BUN/Creatinine Ratio (10-20) Glucose (70-99) mg/dl Lactate (0.4-2.0) mmol/L Calcium (8.5-10.1) mg/dl Magnesium Cancelled Total Bilirubin (0.2-1) mg/dl AST (15-37) U/L ALT (12-78) U/L Alkaline Phosphatase (45-117) U/L Troponin I (0-0.045) ng/ml NT-Pro-B Natriuret Pep (0-900) pg/ml Total Protein (6.4-8.2) gm/dl Albumin (3.4-5.0) gm/dl Globulin (2.5-4.0) gm/dl Albumin/Globulin Ratio (0.9-2) Procalcitonin (0-0.5) ng/ml Stl C. diff Tox B Gene (Neg) Code Status & VTE Plan Code Status full VTE Prophylaxis Plan VTE Prophylaxis will be ordered: Yes Supervising Physician Co-Signing Physician Notes Attending addendum: I have physically seen this patient, have supervised the medical residents activities, and agree with the H&P unless as otherwise noted. Assessment and Plan: Elevated troponin/sinus tachycardia/type II AR/pulmonary edema/bilateral pleural effusions- The patient will be admitted to telemetry for serial cardiac enzymes, serial EKG's, cardiac rhythm monitoring and a 2-D echocardiogram with Dopplers. We be secondary to metabolic issues/infection. Concern for possible SBE Status post right knee antibiotic spacer placement- On daptomycin for 9 days. Add Zosyn 4.5 g IV every 8 hours. Follow blood cultures. Consult orthopedic surgery. Rheumatoid arthritis- On chronic prednisone therapy which will be held. Place on hydrocortisone 100 mg IV every 8 hours. Remaining orders and notations as noted. Resident Activity Tracking Resident Involvement: Resident Care Provided Care Provided: Adult Hospital Medicine (1) Fever Fever type: unspecified Qualified Code(s): R50.9 - Fever, unspecified
[2019-06-17] MEDS: OXYCODONE HCL IR 5 MG TAB (IMMEDIATE RELEASE) PO PRN ×3 (01:19→21:20)
[2019-06-17] MEDS ORDERED: METOPROLOL TARTRATE 1 MG/ML VIAL IV STA (02:54)
[2019-06-17] MEDS: ACETAMINOPHEN 325 MG TAB PO PRN (04:00)
[2019-06-17] MEDS ORDERED: PIPERACILL/TAZOBAC CONSULT ACTIVE PRN (04:41)
[2019-06-17] MEDS ORDERED: PIPERACILLIN/TAZOBACTAM 3.375 GM in DEXTROSE 5% 100 ML IV ONE (04:45)
[2019-06-17] MEDS: SODIUM CHLORIDE 0.9% 1000ML 1,000 ML IV SCH ×2 (05:06→15:33)
[2019-06-17 05:07] LABS: Basophils # (auto) 0.05 K/uL (0-0.2); Basophils % (auto) 0.3 %; Eosinophils # (auto) 0.15 K/uL (0-0.5); Eosinophils % (auto) 0.8 %; Hematocrit (blood only) 26.3 % (37-47); Hemoglobin 8.1 g/dL (12.0-16.0); Immature Granulocytes # (auto) 0.08 K/uL (0.00-0.02); Immature Granulocytes % (auto) 0.4 %; Lymphocytes # (auto) 1.41 K/uL (1.2-3.4); Lymphocytes % (auto) 7.7 %; Mean Corpuscular Hemoglobin 25.3 pg (25-34); Mean Corpuscular Hgb Conc 30.8 g/dL (32-36); Mean Corpuscular Volume 82.2 fL (80-100); Mean Platelet Volume 9.3 fL (7.4-10.4); Monocytes # (auto) 1.57 K/uL (0.11-0.59); Monocytes % (auto) 8.6 %; Neutrophils # (auto) 14.94 K/uL (1.4-6.5); Neutrophils % (auto) 82.2 %; Platelet Count 310 K/uL (130-400); RDW Coefficient of Variation 19.1 % (11.5-14.5); RDW Standard Deviation 58.3 fL (36.4-46.3)
[2019-06-17] MEDS: HYDROCORTISONE SOD 25 MG in SYRINGE 0 ML IV SCH ×2 (05:18→13:55)
[2019-06-17 05:25] LABS: BUN Creatinine Ratio 22.9 (10-20); Calcium 9.1 mg/dl (8.5-10.1); Creatinine Clr Calc Pharmacy 56.2 ml/min; Est GFR (African American) 90.7; Est GFR (Non-African American) 78.2; Potassium 3.5 mmol/L (3.5-5.1)
[2019-06-17] MEDS ORDERED: DAPTOmycin 500 MG VIAL IV SCH (09:00)
[2019-06-17] MEDS: ENOXAPARIN INJ 30 MG/0.3 ML SYR SQ SCH (09:18)
[2019-06-17] MEDS: OXYBUTYNIN CHLORIDE 5 MG TAB PO SCH ×2 (09:20→20:42)
[2019-06-17] MEDS: LACTOBACILLUS ACIDOPHILUS (FLORANEX) TAB PO SCH (09:20)
[2019-06-17] MEDS: PANTOprazole 40 MG TAB PO SCH (09:20)
[2019-06-17] MEDS: GABAPENTIN 100 MG CAP PO SCH ×3 (09:20→20:42)
[2019-06-17] MEDS ORDERED: CHOLESTYRAMINE LIGHT 4 GM PKT PO SCH (10:00)
[2019-06-17] MEDS: PIPERACILLIN/TAZOBACTAM 3.375 GM in DEXTROSE 5% 100 ML IV SCH ×2 (11:36→17:56)
--- NOTE | 2019-06-17 12:39 | Infectious Disease Consult ---
Date of Consultation June 17, 2019 Assessment & Plan (1) Infection of total right knee replacement: concern that she may be having adverse reaction to dapto - ? developing interstitial pneumonitis. CTA without PE. remains on dapto and breathing is better today, no elevation of LFTS or cpk however at this point will stop dapto and monitor resopnse. She is currently on zosyn and this will treat E. faecalis in knee as well, was pcn sensitive. I did speak with patient and at [facility] and offered alternative agent of vanco or zosyn for treatment of E. faecalis infection. is unsure if he would like to do bid abx at home. will follow off of Dapto and follow repeat culture results. will reassess on Thursday. History of Present Illness Attending Physician: Pete Quesada DO pt admitted with diarrhea and sob, elevated resp rate. Had fever 39.4 in ER, wbc 18. creat 0.7. blood and urine cultures pending. She was recently d/c. During last admission she was followed by Dr. Wilson, she was found to have right knee tkr - cultures grew E. faecalis - quinteros sensitive. she was on Dapto and tolerated well, she was d/c home with this for prolonged course. picc in place, cement spacer placed during last admission. He cpk was 35, LFTs normal. She remains on dapto. cta done in er due to resp distress. no pe noted but interstitial disease noted. at bedside. she states breathing is improved today, had some cp, now improved, trop mildly elevated. sob better, breathing comfortable on RA. on liquid diet, poor appetite, no n/v. still with loose stool, denies bleeding, no abd pain, no gu symptoms. C. diff negative in ER. procalcitonin 1. Allergies Allergy/AdvReac Type Severity Reaction Status Date / Time dalbavancin Allergy Severe hypotension, Verified 06/16/19 15:20 flushing, tachypnea Home Medications Home Medications Medication Instructions Recorded Confirmed Type Probiotic 3,000 mmu cells PO QAM 03/30/18 06/16/19 History gabapentin 100 mg PO TID 03/30/18 06/16/19 History prednisone 1 mg PO PM 03/30/18 06/16/19 History prednisone 5 mg PO QAM 03/30/18 06/16/19 History cranberry 500 mg PO HS 09/29/18 06/16/19 History omeprazole 20 mg PO BID 09/29/18 06/16/19 History Macuvite [facility] Care 1 tab PO QAM 10/08/18 06/16/19 History oxybutynin chloride 5 mg tablet 5 mg PO BID #180 tab 12/10/18 06/16/19 Rx calcitriol 0.5 mcg capsule 0.5 mcg PO QPM 02/10/19 06/16/19 History leg brace #1 ea 02/10/19 06/16/19 Rx Calcium 600 + D(3) 1 cap PO BID 06/07/19 06/16/19 History acetaminophen [Tylenol Extra 1,000 mg PO Q8 PRN #90 tab 06/09/19 06/16/19 Rx Strength] enoxaparin [Lovenox] 30 mg SUBCUT Q24H 28 Days #28 syr 06/09/19 06/16/19 Rx oxycodone 5 mg PO Q6H PRN #30 tab MDD 6 tabs 06/09/19 06/16/19 Rx sennosides [Senokot] 17.2 mg PO HS PRN #28 tab 06/09/19 06/16/19 Rx daptomycin 360 mg IV DAILY 42 Days #1 ea 06/11/19 06/16/19 Rx pantoprazole 40 mg PO QAM #30 tab 06/13/19 06/16/19 Rx Patient History Medical History DDD (degenerative disc disease) GERD (gastroesophageal reflux disease) History of Hodgkin's lymphoma 2003/PCP under surveillance History of oral cancer s/p tongue excision left side (no chemo/XRT 2013) RA (rheumatoid arthritis) on chronic steroids Surgical History Cancer (Chronic) TONGUE EXCISION LEFT SIDE H/O foot surgery (Resolved) TOES X MULTIPLE H/O parathyroidectomy (Resolved) History of carpal tunnel release (Resolved) RIGHT History of hip surgery R/L REVISION History of total hip arthroplasty (Resolved) R/L History of total knee replacement (Resolved) R/L Status post knee surgery REVISION RIGHT KNEE 02/2016 Family History Other Family history non-contributory Social History Preferred Language: Vincentian Communication Ability: Effective Visual Impairment: Limited 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: Normal [employer] Required: No Beliefs That Will Affect Care: None marital status: Current Living Situation: Spouse current occupational status: retired Other Information That Helps Us Care for You: No Feels Safe at Home: Yes Safety Concerns: Feels Safe At This Time Smoking Status: Never smoker Do You Dip or Chew Tobacco: No ; Second Hand Exposure: No ; Tobacco Cessation Education Requested by Patient: No Hx Alcohol Use: No Hx Substance Use: No Childhood Exposure to Second-Hand Smoke: Yes Seatbelt Use: always Review of Systems Review of Systems: All systems reviewed & are unremarkable except as noted in HPI & below Physical Exam Constitutional: WD/WN, vitals as above Eyes: PERRL, conjunctivae normal, anicteric sclerae ENMT: external ear and nose normal, oropharynx normal Neck: normal visual inspection Respiratory: normal respiratory effort, lungs clear to auscultation Cardiovascular: RRR, no murmur, no edema Gastrointestinal (Abdomen): normal bowel sounds, soft, nontender, no hepatosplenomegaly Musculoskeletal: no cyanosis or clubbing, extremities motor strength 5/5 Skin: no rashes, warm and dry knee dressing c/d/i Psychiatric: A+Ox3, euthymic affect Results & Data Vital Signs (Past 12 Hours) Vital Signs Temp Pulse Pulse Pulse Resp BP BP 06/17/19 11:47 36.5 C 16 116/68 06/17/19 08:15 36.8 C 111 H 18 121/80 06/17/19 04:38 37.6 C H 140 H 22 110/61 06/17/19 03:38 39.4 C H 108 H 20 107/65 06/17/19 03:21 148 H 130/64 06/17/19 02:56 148 H 130/64 Pulse Ox 06/17/19 11:47 92 06/17/19 08:15 98 06/17/19 04:38 95 06/17/19 03:38 95 06/17/19 03:21 06/17/19 02:56 PG Care Time/CCT Total # of Minutes Spent Total Time Spent with Patient: Total time spent is greater than 50% in coordination of care (as documented) at patient's floor/unit and/or counseling patient:
[2019-06-17] MEDS ORDERED: DAPTOmycin 360 MG in SYRINGE 0 ML IV SCH (13:30)
--- NOTE | 2019-06-17 13:55 | Orthopedic Progress Note ---
Date of Service June 17, 2019 Assessment & Plan (1) Infection of total right knee replacement: 10 days s/p Right Total Knee Arthroplasty Explant, Incision and Drainage, Antibiotic Cement Spacer Incision is healing well. All jorge kept in place. Daily dry dressings prn. Continue JAMAAL stockings. Partial WB RLE. Continue IV ABX per medicine and ID. F/U with Dr. Vela in 4 days as scheduled. May consider every other staple removal in 3-4 days if still admitted vs. leaving all sutures in place an extra week or so. Subjective Patient seen in follow up for a right knee I & D after explanting a right TKA, implanting antibiotic spacer [address] Vela. She was readmitted for SOB and tachycardia. She states the knee has been doing well and hasn't had any issues since discharge. Physical Exam Constitutional: WD/WN, vitals as above ENMT: external ear and nose normal, oropharynx normal Neck: trachea midline, no thyromegaly Musculoskeletal: Gait: + antalgic gait (right) Knee: + surgical incision (well approximated right knee incision. [place] in place); knee normal to inspection, no deformity, no effusion, no skin erythema, no ecchymosis, no surgical drain present and no joint line tenderness Skin: no rashes, warm and dry Neurologic: normal touch/pain/proprioception Psychiatric: A+Ox3, euthymic affect Speech: normal rate/rhythm/volume of speech Results & Data Vital Signs (Past 12 Hours) Vital Signs Temp Pulse Pulse Pulse Resp BP BP 06/17/19 11:47 36.5 C 16 116/68 06/17/19 08:15 36.8 C 111 H 18 121/80 06/17/19 08:00 112 H 06/17/19 04:38 37.6 C H 140 H 22 110/61 06/17/19 03:38 39.4 C H 108 H 20 107/65 06/17/19 03:21 148 H 130/64 06/17/19 02:56 148 H 130/64 Pulse Ox 06/17/19 11:47 92 06/17/19 08:15 98 06/17/19 08:00 06/17/19 04:38 95 06/17/19 03:38 95 06/17/19 03:21 06/17/19 02:56
--- NOTE | 2019-06-17 14:07 | Hospitalist Progress Note ---
Date of Service June 17, 2019 Assessment & Plan (1) Shortness of breath: Patient is a 68-year-old female PMH GERD, hyperparathyroid, vertigo, history of oral cancer, Hodgkin's lymphoma, presents on POD #10 to antibiotic spacer of R knee with palpitations and increased work of breathing. Shortness of breath/sinus tachycardia/Fever Patient admitted with new elevated white cell count, increased work of breathing, sinus tachycardia Despite daptomycin use, concern is for systemic infection. And Zosyn was added on admission. Review of Sensitivities of E. faecalis from wound culture show quinteros-sensitive so will stop daptomycin as there's concern that dyspnea could be related to eosinophilic pneumonia caused by the Daptomycin. -She started to improve on Zosyn with not needing supplemental oxygen, decrease tachycardia with increase in IVF to 111ml/hr, and decreasing WBC Await blood cultures which are pending. -Chest imaging reveals small pleural effusions mild evidence of CHF, therefore patient given albumin with Lasix in the ER. Pro-Dylan mildly elevated not specific in setting of recent soft tissue infection, lactate of 1.2. Orthopedic consult also placed. Diarrhea -C. difficile testing ordered on admission, resulted negative. Continue probiotic Discontinued Cholestyramine. Rheumatoid arthritis Continue daily steroid therapy stress dose steroids from admission discontinued, stable BP Osteoporosis Hold Calcitrol, calcium, vitamin D. Code: Full Dispo: Telemetry DVTP: Lovenox (2) Sinus tachycardia: (3) Pleural effusion: (4) Fever: (5) Infection of knee: (6) Diarrhea: (7) RA (rheumatoid arthritis): Supervising Physician Co-Signing Physician Notes I personally examined the patient and verified all chapman points of history and exam, discussed case, and agree with decision making with Dr James. Feeling better overall. Did start to cough some this afternoon, nonproductive. No shortness of breath. Otherwise no new complaints. [employer] Iam Consultant input appreciated. Vitals noted, in general she is awake and alert pleasant no distress. HEENT normocephalic atraumatic mucous membranes are moist. Breathing is unlabored no accessory muscle use good effort, she does have a little bit of a cough. No respiratory distress. No focal neuro deficits. Skin shows no rashes no pallor or icterus. Knee is in an immobilizer. 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 Either way given that the enterococcus in her knee is sensitive to multiple antibiotics we can drop the daptomycin and simply treat both with Zosyn for now. As the pneumonia improves, then the plan will need to be reformulated for how to treat her kneewhether it be ongoing Zosyn, ampicillin or something different, I will defer to infectious disease in this regard. Continue supportive care. Shoulder findings on CT chestfollow clinically, would appreciate orthopedics input in this regard as well. DVT prophylaxisLovenox Otherwise as above Subjective Jacklyn noted feeling unchanged this AM, she was on oxymask. She noted her chest pain felt like a tight muscle that was made worse with deep breaths and with rotation of torso to left. Onset was 2 days ago. She notes it is not present with rest or remaining still. A little bit later in the AM spouse noted that patient looked better/appeared improved to him. Nursing also noted that she was able to get off oxygen and was on room air. Jacklyn noted not feeling dyspneic or having more than 2 episodes of loose stools. Physical Exam Constitutional: + frail appearing, cooperative and comfortable Eyes: + anicteric sclerae and EOM intact bilaterally ENMT: external ear and nose normal, oropharynx normal Neck: normal visual inspection and trachea midline Respiratory: normal respiratory effort, lungs clear to auscultation Cardiovascular: RRR, no murmur, no edema Gastrointestinal (Abdomen): Percussion/Palpation: abdomen soft; abdomen nontender, no guarding and abdomen not rigid Musculoskeletal: Head/Neck/Chest: normocephalic and head atraumatic right knee brace; N/V intact Skin: no rashes, warm and dry Neurologic: moves all extremities and awake Psychiatric: A+Ox3, euthymic affect Results & Data Vital Signs (Past 12 Hours) Vital Signs Temp Pulse Pulse Pulse Resp BP BP 06/17/19 11:47 36.5 C 16 116/68 06/17/19 08:15 36.8 C 111 H 18 121/80 06/17/19 08:00 112 H 06/17/19 04:38 37.6 C H 140 H 22 110/61 06/17/19 03:38 39.4 C H 108 H 20 107/65 06/17/19 03:21 148 H 130/64 06/17/19 02:56 148 H 130/64 Pulse Ox 06/17/19 11:47 92 06/17/19 08:15 98 06/17/19 08:00 06/17/19 04:38 95 06/17/19 03:38 95 06/17/19 03:21 06/17/19 02:56 Laboratory Results Laboratory Results - last 24 hr 06/16/19 06/16/19 06/16/19 14:39 14:39 14:39 WBC 19.41 H RBC 3.39 L Hgb 8.6 L Hct 27.9 L MCV 82.3 MCH 25.4 MCHC 30.8 L RDW Std Deviation 58.9 H RDW Coeff of Jarvis 19.3 H Plt Count 304 MPV 9.4 Immature Gran % (Auto) 0.4 Neut % (Auto) 85.8 Lymph % (Auto) 5.8 [place] % (Auto) 7.5 Eos % (Auto) 0.2 Baso % (Auto) 0.3 Immature Gran # (Auto) 0.07 H Neut # (Auto) 16.67 H Lymph # (Auto) 1.12 L [place] # (Auto) 1.46 H Eos # (Auto) 0.04 Baso # (Auto) 0.05 PT 13.2 H INR 1.3 H APTT 30.0 PTT Ratio 1.1 Sodium Potassium Chloride Carbon Dioxide Anion Gap BUN Creatinine Est Cr Clr Drug Dosing Est GFR ( Amer) Est GFR (Non-Af Amer) BUN/Creatinine Ratio Glucose Lactate Calcium Magnesium Cancelled Total Bilirubin AST ALT Alkaline Phosphatase Total Creatine Kinase Troponin I NT-Pro-B Natriuret Pep Total Protein Albumin Globulin Albumin/Globulin Ratio Procalcitonin Stl C. diff Tox B Gene 06/16/19 06/16/19 06/16/19 14:39 14:39 14:40 WBC RBC Hgb Hct MCV MCH MCHC RDW Std Deviation RDW Coeff of Jarvis Plt Count MPV Immature Gran % (Auto) Neut % (Auto) Lymph % (Auto) [place] % (Auto) Eos % (Auto) Baso % (Auto) Immature Gran # (Auto) Neut # (Auto) Lymph # (Auto) [place] # (Auto) Eos # (Auto) Baso # (Auto) PT INR APTT PTT Ratio Sodium 137 Potassium 3.8 Chloride 103 Carbon Dioxide 27 Anion Gap 7.0 BUN 20 H Creatinine 0.85 Est Cr Clr Drug Dosing 50.9 Est GFR ( Amer) 80.5 Est GFR (Non-Af Amer) 69.4 BUN/Creatinine Ratio 23.2 H Glucose 110 H Lactate Calcium 9.8 Magnesium 1.6 L Total Bilirubin 0.6 AST 22 ALT 46 Alkaline Phosphatase 172 H Total Creatine Kinase Troponin I 0.082 H* NT-Pro-B Natriuret Pep 1122 H Total Protein 6.2 L Albumin 2.0 L Globulin 4.2 H Albumin/Globulin Ratio 0.5 L Procalcitonin 1.23 H Stl C. diff Tox B Gene 06/17/19 06/17/19 06/17/19 00:15 00:28 04:48 WBC 18.20 H RBC 3.20 L Hgb 8.1 L Hct 26.3 L MCV 82.2 MCH 25.3 MCHC 30.8 L RDW Std Deviation 58.3 H RDW Coeff of Jarvis 19.1 H Plt Count 310 MPV 9.3 Immature Gran % (Auto) 0.4 Neut % (Auto) 82.2 Lymph % (Auto) 7.7 [place] % (Auto) 8.6 Eos % (Auto) 0.8 Baso % (Auto) 0.3 Immature Gran # (Auto) 0.08 H Neut # (Auto) 14.94 H Lymph # (Auto) 1.41 [place] # (Auto) 1.57 H Eos # (Auto) 0.15 Baso # (Auto) 0.05 PT INR APTT PTT Ratio Sodium Potassium Chloride Carbon Dioxide Anion Gap BUN Creatinine Est Cr Clr Drug Dosing Est GFR ( Amer) Est GFR (Non-Af Amer) BUN/Creatinine Ratio Glucose Lactate 1.2 Calcium Magnesium Total Bilirubin AST ALT Alkaline Phosphatase Total Creatine Kinase Troponin I NT-Pro-B Natriuret Pep Total Protein Albumin Globulin Albumin/Globulin Ratio Procalcitonin Stl C. diff Tox B Gene Negative Cdiff Gene 06/17/19 06/17/19 06/17/19 04:48 04:48 04:48 WBC RBC Hgb Hct MCV MCH MCHC RDW Std Deviation RDW Coeff of Jarvis Plt Count MPV Immature Gran % (Auto) Neut % (Auto) Lymph % (Auto) [place] % (Auto) Eos % (Auto) Baso % (Auto) Immature Gran # (Auto) Neut # (Auto) Lymph # (Auto) [place] # (Auto) Eos # (Auto) Baso # (Auto) PT INR APTT PTT Ratio Sodium 135 L Potassium 3.5 Chloride 102 Carbon Dioxide 25 Anion Gap 8.0 BUN 18 Creatinine 0.77 Est Cr Clr Drug Dosing 56.2 Est GFR ( Amer) 90.7 Est GFR (Non-Af Amer) 78.2 BUN/Creatinine Ratio 22.9 H Glucose 72 Lactate Calcium 9.1 Magnesium 1.9 Total Bilirubin AST ALT Alkaline Phosphatase Total Creatine Kinase 35 Troponin I 0.148 H* NT-Pro-B Natriuret Pep Total Protein Albumin Globulin Albumin/Globulin Ratio Procalcitonin Stl C. diff Tox B Gene Medications Administered Acetaminophen (Tylenol) 650 mg PO Q4H PRN PRN Reason: Pain or Fever Stop: 07/17/19 03:45 Last Admin: 06/17/19 04:00 Dose: 650 mg Documented by: [id number] Cholestyramine Resin (Questran) 4 gm PO BID@1000,2200 [facility] Stop: 07/17/19 09:59 Last Admin: 06/17/19 11:36 Dose: 4 gm Documented by: [id number] Enoxaparin Sodium (Lovenox) 30 mg SQ Q24H [facility] Stop: 07/17/19 08:59 Last Admin: 06/17/19 09:18 Dose: 30 mg Documented by: [id number] Gabapentin (Neurontin) 100 mg PO TID [facility] Stop: 07/17/19 08:59 Last Admin: 06/17/19 13:54 Dose: 100 mg Documented by: [id number] Admin: 06/17/19 09:20 Dose: 100 mg Documented by: [id number] Sodium Chloride (Nss 1000ml) 1,000 mls @ 111 mls/hr IV .Q9H1M [facility] Stop: 07/17/19 04:44 Last Admin: 06/17/19 05:06 Dose: 80 mls/hr Documented by: [id number] Piperacillin Sod/Tazobactam (Sod 3.375 gm/ Dextrose) 115 mls @ 28.75 mls/hr IV Q8H [facility]; Protocol Stop: 06/19/19 05:00 Last Admin: 06/17/19 11:36 Dose: 28.8 mls/hr Documented by: [id number] Daptomycin 360 mg/ Syringe 7.2 mls @ 0 mls/min IV Q24H [facility]; Protocol Stop: 07/29/19 13:29 Last Admin: 06/17/19 13:54 Dose: 2 mls/min Documented by: [id number] Hydrocortisone Sodium (Succinate 25 mg/ Syringe) 0.5 mls @ 4 mls/min IV Q8H [facility] Stop: 06/17/19 21:01 Last Admin: 06/17/19 13:55 Dose: 4 mls/min Documented by: [id number] Admin: 06/17/19 05:18 Dose: 4 mls/min Documented by: [id number] Ioversol (Optiray 320 125ml) 119 ml IV ONCE PRN PRN Reason: Interaction Checking Stop: 06/20/19 16:40 Last Admin: 06/16/19 16:41 Dose: 119 ml Documented by: [id number] Lactobacillus Acidophilus (Floranex) 4 tab PO [facility] Stop: 07/17/19 08:59 Last Admin: 06/17/19 09:20 Dose: 4 tab Documented by: [id number] Oxybutynin Chloride (Ditropan) 5 mg PO BID [facility] Stop: 07/17/19 08:59 Last Admin: 06/17/19 09:20 Dose: 5 mg Documented by: [id number] Oxycodone HCl (Roxicodone Immediate Rel) 5 mg PO Q6H PRN PRN Reason: Pain Stop: 07/01/19 00:14 Last Admin: 06/17/19 13:53 Dose: 5 mg Documented by: [id number] Admin: 06/17/19 01:19 Dose: 5 mg Documented by: [id number] Pantoprazole Sodium (Protonix) [facility] [place] Stop: 07/17/19 08:59 Last Admin: 06/17/19 09:20 Dose: 40 mg Documented by: [id number] Resident Activity Tracking Resident Involvement: Resident Care Provided Care Provided: Adult Hospital Medicine (1) Fever Fever type: unspecified Qualified Code(s): R50.9 - Fever, unspecified
[2019-06-17] MEDS: predniSONE 5 MG TAB PO SCH (17:14)
[2019-06-17 18:11] LABS: Appearance Urine Clear (Clear); Bacteria Urine Automated Negative (Negative); Bilirubin Urine Negative (Negative); Blood Urine Negative (Negative); Color Urine Yellow; Epithelial Cell Urine Auto >30 /lpf (0-5); Glucose Urine UA Negative (Negative); Ketones Urine 1+ (Negative); Leukocyte Esterase Urine 1+ (Negative); Nitrite Urine Negative (Negative); Protein Urine 1+ (Negative); Urobilinogen Urine Negative (Negative)
[2019-06-17 18:31] LABS: RBC Urine Automated 0-4 /hpf (0-4)
[2019-06-17 18:37] LABS: Renal Epithelial Cells Urine 0-5 /lpf (0-5)
--- NOTE | 2019-06-17 19:14 | Billing Data ---
Date of Service June 17, 2019 Coding Level of Care Code 31681 Subseq Hosp Care Lvl 3
[2019-06-17] MEDS: predniSONE 1 MG TAB PO SCH (21:17)
[2019-06-18] MEDS: SODIUM CHLORIDE 0.9% 1000ML 1,000 ML IV SCH ×2 (00:23→09:09)
[2019-06-18] MEDS: PIPERACILLIN/TAZOBACTAM 3.375 GM in DEXTROSE 5% 100 ML IV SCH ×4 (02:08→21:35)
[2019-06-18] MEDS: OXYCODONE HCL IR 5 MG TAB (IMMEDIATE RELEASE) PO PRN ×3 (05:07→21:47)
--- NOTE | 2019-06-18 05:45 | Billing Data ---
Date of Service June 18, 2019 Coding Level of Care Code 89158 Initial Inpt Care Lvl 3
[2019-06-18 07:30] LABS: Hematocrit (blood only) 28.1 % (37-47); Hemoglobin 8.7 g/dL (12.0-16.0); Mean Corpuscular Hemoglobin 25.1 pg (25-34); Mean Corpuscular Volume 81.2 fL (80-100); Mean Platelet Volume 9.5 fL (7.4-10.4); Platelet Count 357 K/uL (130-400); RDW Coefficient of Variation 19.2 % (11.5-14.5); RDW Standard Deviation 57.6 fL (36.4-46.3); Red Blood Count 3.46 M/uL (4.2-5.4); White Blood Count 14.91 K/uL (4.8-10.8)
[2019-06-18 08:17] LABS: BUN Creatinine Ratio 19.3 (10-20); Calcium 8.3 mg/dl (8.5-10.1); Creatinine Clr Calc Pharmacy 66.6 ml/min; Est GFR (African American) 104.3; Magnesium 1.8 mg/dl (1.8-2.4); Potassium 3.2 mmol/L (3.5-5.1)
[2019-06-18] MEDS ORDERED: MoRPHine SULFATE 2 MG/ML CARP IV STA (08:58)
[2019-06-18] MEDS: LACTOBACILLUS ACIDOPHILUS (FLORANEX) TAB PO SCH (09:03)
[2019-06-18] MEDS: ENOXAPARIN INJ 30 MG/0.3 ML SYR SQ SCH (09:03)
[2019-06-18] MEDS: predniSONE 5 MG TAB PO SCH (09:04)
[2019-06-18] MEDS: GABAPENTIN 100 MG CAP PO SCH ×3 (09:04→20:02)
[2019-06-18] MEDS: PANTOprazole 40 MG TAB PO SCH (09:05)
[2019-06-18] MEDS: OXYBUTYNIN CHLORIDE 5 MG TAB PO SCH ×2 (09:05→20:01)
[2019-06-18] MEDS: ACETAMINOPHEN 325 MG TAB PO PRN ×3 (09:21→21:47)
--- NOTE | 2019-06-18 09:42 | Orthopedic Progress Note ---
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 -PT/OT -am labs - hgb 8.7 Subjective Post Operative Progress Note Patient seen sitting up in bed, comfortable, denies complaints, pain well controlled, no acute issues. Review of Systems Review of Systems: All systems reviewed & are unremarkable except as noted in HPI & below Constitutional: as per Subjective / HPI Physical Exam Physical Exam: RLE NVSI +EHL/FHL/TA/GS SILT grossly, +2 DP pulse, compartments soft NT, incision is clean dry and intact. Knee immobilizer in place Constitutional: WD/WN, vitals as above Results & Data Vital Signs (Past 12 Hours) Vital Signs Temp Pulse Pulse Resp BP Pulse Ox 06/18/19 08:02 37.1 C 111 H 20 145/70 H 90 06/18/19 07:41 70 06/18/19 04:49 36.9 C 102 H 18 127/59 L 95 06/18/19 01:49 102 H 06/18/19 00:00 36.9 C 116 H 16 124/71 90 Laboratory Results 06/18/19 06/18/19 06/17/19 Range/Units 07:18 07:18 16:46 WBC 14.91 H (4.8-10.8) K/uL RBC 3.46 L (4.2-5.4) M/uL Hgb 8.7 L (12.0-16.0) g/dL Hct 28.1 L (37-47) % MCV 81.2 (80-100) fL MCH 25.1 (25-34) pg MCHC 31.0 L (32-36) g/dL RDW Std Deviation 57.6 H (36.4-46.3) fL RDW Coeff of Jarvis 19.2 H (11.5-14.5) % Plt Count 357 (130-400) K/uL MPV 9.5 (7.4-10.4) fL Sodium 141 (136-145) mmol/L Potassium 3.2 L (3.5-5.1) mmol/L Chloride 108 H (98-107) mmol/L Carbon Dioxide 22 (21-32) mmol/L Anion Gap 10.0 (3-11) BUN 13 (7-18) mg/dl Creatinine 0.65 (0.6-1.2) mg/dl Est Cr Clr Drug Dosing 66.6 ml/min Est GFR ( Amer) 104.3 Est GFR (Non-Af Amer) 90.0 BUN/Creatinine Ratio 19.3 (10-20) Glucose 80 (70-99) mg/dl Calcium 8.3 L (8.5-10.1) mg/dl Phosphorus 2.0 L (2.5-4.9) mg/dl Magnesium 1.8 (1.8-2.4) mg/dl Specimen Hemolysis Urine Color Yellow Urine Appearance Clear (Clear) Urine pH 5.0 (4.5-7.5) Ur Specific Curtis 1.030 (1.000-1.030) Urine Protein 1+ H (Negative) Urine Glucose (UA) Negative (Negative) Urine Ketones 1+ H (Negative) Urine Blood Negative (Negative) Urine Nitrite Negative (Negative) Urine Bilirubin Negative (Negative) Urine Urobilinogen Negative (Negative) Ur Leukocyte Esterase 1+ H (Negative) Urine WBC (Auto) 5-10 H (0-5) /hpf Urine RBC (Auto) 0-4 (0-4) /hpf U Hyaline Cast (Auto) 1-5 (0-5) /lpf U Epithel Cells (Auto) >30 H (0-5) /lpf Urine Bacteria (Auto) Negative (Negative) Ur Renal Epithelial Cell 0-5 (0-5) /lpf Urine Yeast Not Reportable
[2019-06-18] MEDS ORDERED: POTASSIUM PHOS 3 MMOL/1 ML INFUSION IV STA (09:49)
[2019-06-18] MEDS ORDERED: LACTATED RINGER'S 1,000 ML IV SCH (10:00)
--- NOTE | 2019-06-18 10:06 | Hospitalist Progress Note ---
Date of Service June 18, 2019 Assessment & Plan (1) Shortness of breath: Patient is a 68-year-old female PMH GERD, hyperparathyroid, vertigo, history of oral cancer, Hodgkin's lymphoma, presents on POD #10 to antibiotic spacer of R knee with palpitations and increased work of breathing. Shortness of breath/sinus tachycardia/Fever Night of 06/16 Patient admitted with new elevated white cell count, increased work of breathing, sinus tachycardia: Chest imaging reveals small pleural effusions mild evidence of CHF, therefore patient given albumin with Lasix in the ER. Pro-Dylan mildly elevated not specific in setting of recent soft tissue infection, lactate of 1.2. Orthopedic consult also placed. Despite daptomycin use, concern is for systemic infection. And Zosyn was added on admission. Review of Sensitivities of E. 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 -On 06/17 She started to improve on Zosyn with not needing supplemental oxygen, decrease tachycardia with increase in IVF to 111ml/hr, and decreasing WBC 06/18: Her lab values are improving, WBC trending down to 14.9, and has been afebrile. Her chest pain although is most likely musculoskeletal in nature and aggravated most likely worsened by dry cough. Will treat with analgesics, Morphine 0.5mg IV x1 dose, she is not opioid naive and could require a little more help with pain control to help with tachycardia and dyspnea, allow her to rest to help with healing and comfort. -She does not feeling cold and it is cold in her room, but discussed with nurse to give a dose of Tylenol as could be chills from infectious process. Blood cultures pending NGTD -Urine culture pending Chest Pain - Suspect this is musculoskeletal that has worsened today because she has had persistent dry cough. She did have a brief run of HR in the 190s and ECG was reviewed, there were some non-specific ST changes in leads V2 and V3. I didn't want to over look a cardiac etiology in the setting of numerous other obvious causes of her chest pain. But she is female and elderly and won't present classically so I reordered a Trop and expect it to be around previous 0.1 value from her tachycardia causing a little more demand on the heart. And if this is the case will cancel repeat values. It is also reassuring she had a benign ec hocardiogram yesterday. - This could also be from possible pneumonitis/eosinophilic pneumonia from Daptomycin, and since increase in O2 requirement to 2L NC, will get repeat CXR as if now worse could consider treatment with increase Prednisone if truly possibly Eosinophilic pneumonia. - She had a short run of possible SVT that resolved, unsure of etiology and will continue to monitor. Possibly drug induced from stress steroids given on admission, but wasn't on them for significant time. - Continues to be sinus tachycardic in the low 110s with occasional PACs, could be from sympathetic response to pain or from infectious process. Poor appetite - Noted to have poor appetite, her nutrition status is a concern. She needs adequate protein intake for her right knee to heal. Noted to have poor appetite on prior admission as well. I encouraged increase PO intake. Will give Tylenol to suppress any interleukins that could be acting on hypothalamus to suppress a ppetite. - I consulted Dietary/Nutrition for assessment. It was noted on prior notes from my review that she didn't like boost protein shakes because of tasting too sweet. Hypophosphatemia - 06/18 2.0, will replace with KPhos 40mmol IV - trend Hypokalemic - 06/18 3.2, adequate replacement with KPhos as above - Encourage PO intake - trend Diarrhea -C. difficile testing ordered on admission, resulted negative. Continue probiotic Discontinued Cholestyramine. Rheumatoid arthritis Continue daily steroid therapy stress dose steroids from admission discontinued, stable BP Osteoporosis Hold Calcitrol, calcium, vitamin D. Code: Full Dispo: Telemetry DVTP: Lovenox (2) Sinus tachycardia: (3) Pleural effusion: (4) Fever: (5) Infection of knee: (6) Diarrhea: (7) RA (rheumatoid arthritis): (8) Poor appetite: Supervising Physician Co-Signing Physician Notes I personally examined the patient and verified all chapman points of history and exam, discussed case, and agree with decision making with Dr James. Coughing is a bit worse, feels sputum in her chest. Does not feel chest pressure, has a discomfort that she has a hard time describing, and is use the word squeezing but to clarify she notes that it would feel better if she squeezes her chest when the pain comes on. The pain itself is not squeezing. She did not feel any palpitations when she had an episode of SVT earlier. Vitals noted, in general she is awake and alert pleasant no distress. HEENT normocephalic atraumatic mucous membranes are moist. Breathing is unlabored no accessory muscle use good effort, she does have a little bit of a cough lungs show some scattered rhonchi. No respiratory distress. No focal neuro deficits. Skin shows no rashes no pallor or icterus. Knee is in an immobilizer. 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 Continue Zosyn and follow closely, her worse cough is likely due to the pneumonia starting to break up, repeat chest x-ray showing a little bit of fluidsee below, but not a pattern of worsening daptomycin mediated eosinophilic pneumonitistherefore hold off on steroids for now and to continue antibiotics and supportive care. Chest x-ray finding of pulmonary edemaquestion if it is just a slightly more underpenetrated film versus if it related to her SVT this morning. Either way she is doing well enough we do not need to continue IV fluids, and she does not show an overt need for diuresis. Follow closely. SVTlasted a short time, self terminated, I do wonder if she does this at home as well. Continue to monitor. Escalate meds or have cardiology intervention if it appears warranted, close outpatient follow-up and cardiac monitoring otherwise. Shoulder findings on CT chestfollow clinically, would appreciate orthopedics input in this regard as well. DVT prophylaxisLovenox Otherwise as above Subjective Jacklyn notes feeling worse than yesterday. Her same chest pain has been persistent and she is still having cough that worsens her chest pain. She notes not sleeping well overnight and has had poor appetite. She notes being on chronic opioids at home for chronic back pain and that her home dose does not relieve her pain. She notes feeling cold and had more shortness of breath that required reapplying O2 with 2L NC. She notes that she thinks her breathing would improve if her pain improved. Nursing notes ordering ECG for this pain this AM. Also, Tele team notes HR of 190 around 6am this AM that they thought appeared to look like SVT that lasted for several minutes than resolved without treatment. Physical Exam Constitutional: + frail appearing and cooperative appears in pain and more ill than yesterday morning Eyes: + anicteric sclerae and EOM intact bilaterally ENMT: external ear and nose normal, oropharynx normal Neck: normal visual inspection and trachea midline Respiratory: + tachypneic; no respiratory distress and no audible wheezes Auscultation: + diminished lung sounds; no wheezes Cardiovascular: RRR, no murmur, no edema Gastrointestinal (Abdomen): Percussion/Palpation: abdomen soft; abdomen nontender, no guarding and abdomen not rigid Musculoskeletal: Head/Neck/Chest: normocephalic and head atraumatic Skin: no rashes, warm and dry Neurologic: moves all extremities and awake Psychiatric: A+Ox3, euthymic affect Results & Data Vital Signs (Past 12 Hours) Vital Signs Temp Pulse Pulse Resp BP Pulse Ox 06/18/19 08:02 37.1 C 111 H 20 145/70 H 90 06/18/19 07:41 70 06/18/19 04:49 36.9 C 102 H 18 127/59 L 95 06/18/19 01:49 102 H 06/18/19 00:00 36.9 C 116 H 16 124/71 90 Resident Activity Tracking Resident Involvement: Resident Care Provided Care Provided: Adult Hospital Medicine (1) Fever Fever type: unspecified Qualified Code(s): R50.9 - Fever, unspecified
[2019-06-18] MEDS ORDERED: POTASSIUM PHOSPHATE 40 MMOL in SODIUM CHLORIDE 0.9% 1000ML 1,000 ML IV ONE (10:15)
[2019-06-18] MEDS ORDERED: SODIUM CHLORIDE 0.9% 1000ML 1,000 ML IV SCH (10:15)
--- NOTE | 2019-06-18 11:47 | XRay Report ---
XR chest 1V portable CLINICAL HISTORY: Diminished air flow, increase O2 requirement COMPARISON STUDY: Chest radiograph and chest CT June 16, 2019. FINDINGS: Right PICC is in place. Cardiomediastinal silhouette is unremarkable. Pulmonary edema has i ncreased. There are small bilateral pleural effusions with bibasilar opacities which have increased. Severe degenerative changes of the bilateral glenohumeral joints are noted. There is no pneumothorax. IMPRESSION: 1. Interval progression of pulmonary edema. 2. Small bilateral pleural effusions with bibasilar opacities which have increased. Electronically signed by: Devon Zee M.D. 06/18/2019 11:45 AM
[2019-06-18] MEDS: BENZONATATE 100 MG CAPSULE PO SCH ×2 (12:27)
[2019-06-18] MEDS ORDERED: MoRPHine SULFATE 2 MG/ML CARP IV PRN (17:10)
--- NOTE | 2019-06-18 17:28 | Billing Data ---
Date of Service June 18, 2019 Coding Level of Care Code 08523 Subseq Hosp Care Lvl 3
[2019-06-18] MEDS: NYSTATIN 30 ML, DEXAMETHASONE CONC 3.75 MG, DiphenhydrAMINE Syrup 300 MG, ORA-SWEET SYR... PO SCH ×2 (18:06→20:03)
[2019-06-18] MEDS: predniSONE 1 MG TAB PO SCH (20:02)
[2019-06-19] MEDS: OXYCODONE HCL IR 5 MG TAB (IMMEDIATE RELEASE) PO PRN ×3 (03:09→19:41)
[2019-06-19] MEDS: ACETAMINOPHEN 325 MG TAB PO PRN ×2 (03:09→08:33)
--- NOTE | 2019-06-19 06:42 | Hospitalist Progress Note ---
Date of Service June 19, 2019 Assessment & Plan (1) Shortness of breath: Patient is a 68-year-old female PMH GERD, hyperparathyroid, vertigo, history of oral cancer, Hodgkin's lymphoma, presents on POD #10 to antibiotic spacer of R knee with palpitations and increased work of breathing. Shortness of breath/sinus tachycardia/Fever Night of 06/16 Patient admitted with new elevated white cell count, increased work of breathing, sinus tachycardia: Chest imaging reveals small pleural effusions mild evidence of CHF, therefore patient given albumin with Lasix in the ER. Pro-Dylan mildly elevated not specific in setting of recent soft tissue infection, lactate of 1.2. Orthopedic consult also placed. Despite daptomycin use, concern is for systemic infection. And Zosyn was added on admission. Review of Sensitivities of E. 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 -On 06/17 She started to improve on Zosyn with not needing supplemental oxygen, decrease tachycardia with increase in IVF to 111ml/hr, and decreasing WBC 06/18: Her lab values are improving, WBC trending down to 14.9, and has been afebrile. Her chest pain although is most likely musculoskeletal in nature and aggravated most likely worsened by dry cough. Will treat with analgesics, Morphine 0.5mg IV x1 dose, she is not opioid naive and could require a little more help with pain control to help with tachycardia and dyspnea, allow her to rest to help with healing and comfort. 06/19 Improving WBC, clinically is improved as well. Blood cultures pending NGTD -Urine culture NGTD Chest Pain/SVT Episode 06/18 - Suspect this is musculoskeletal that has worsened today because she has had persistent dry cough. She did have a brief run of HR in the 190s and ECG was reviewed, there were some non-specific ST changes in leads V2 and V3. I didn't want to over look a cardiac etiology in the setting of numerous other ob vious causes of her chest pain. But she is female and elderly and won't present classically so I reordered a Trop and expect it to be around previous 0.1 value from her tachycardia causing a little more demand on the heart. And if this is the case will cancel repeat values. It is also reassuring she had a benign echocardiogram yesterday. - This could also be from possible pneumonitis/eosinophilic pneumonia from Daptomycin, and since increase in O2 requirement to 2L NC, will get repeat CXR as if now worse could consider treatment with increase Prednisone if truly possibly Eosinophilic pneumonia. - She had a short run of possible SVT that resolved, unsure of etiology and will continue to monitor. Possibly drug induced from stress steroids given on admission, but wasn't on them for significant time. - Continues to be sinus tachycardic in the low 110s with occasional PACs, could be from sympathetic response to pain or from infectious process. 06/19 - consulted cardiology to ensure we weren't missing any cardiac process, because of persistent tachycardia, but with reassuring cardiac workup previously, most likely pain response from recent surgery. Poor appetite - Noted to have poor appetite, her nutrition status is a concern. She needs adequate protein intake for her right knee to heal. Noted to have poor appetite on prior admission as well. I encouraged increase PO intake. Will give Tylenol to suppress any interleukins that could be acting on hypothalamus to suppress appetite. 06/18 - I consulted Dietary/Nutrition for assessment. It was noted on prior notes from my review that she didn't like boost protein shakes because of tasting too sweet. 06/19 - Lengthy discussion at bedside about need for increase PO intake. Discussed appetites stimulant medication and if not improved should consider trying Marrinol starting 06/20. Meals viewed have been mostly soups and for lunch today she only had a baked potato in front of her. Apthous Ulcers - was reported concern for aisha with trying magic mouthwash, oral lesions appear more consistent with apthous ulcers, poor nutrition playing a role as well. - Discussed to see if she feels improved with it, and if not then we could consider discontinuing Hypophosphatemia - 06/18 2.0, will replace with KPhos 40mmol IV - 06/19 2.3, will replace with KPhos 21mmol IV - trend Hypokalemic - 06/18 3.2, adequate replacement with KPhos as above - 06/19 WNL - Encourage PO intake - trend Diarrhea -C. difficile testing ordered on admission, resulted negative. Continue probiotic Restarted Cholestyramine. Rheumatoid arthritis Continue daily steroid therapy stress dose steroids from admission discontinued, stable BP Osteoporosis Hold Calcitrol, calcium, vitamin D. Code: Full Dispo: Telemetry DVTP: Lovenox (2) Sinus tachycardia: (3) Pleural effusion: (4) Fever: (5) Infection of knee: (6) Diarrhea: (7) RA (rheumatoid arthritis): (8) Poor appetite: (9) Oral mucosal lesion: Supervising Physician Co-Signing Physician Notes I personally examined the patient and verified all chapman points of history and exam, discussed case, and agree with decision making with Dr James. For clarification sake, please note that orthopedic discharge summary was from her 06/14 discharge, and that its placement in the chart in the middle of her current hospital stay simply due to limitations of the computer system. Please do not allow this to cause any confusion, patient is now in due to a pneumonia superimposed on her prior illnesses, is off of Dapto and on Zosyn. She is feeling a bit better today, coughing ongoing less short of breath, generally feeling well. She is not eating well, she does have mouth ulcers which hurt to eat and generally does not have an appetite. present, answered all questions to the best of my ability. Discussed case with cardiology, input gr eatly appreciated. Vitals noted, in general she is awake and alert pleasant no distress. HEENT normocephalic atraumatic mucous membranes are moist, she does have scattered very inflamed appearing ulcers in her mouth.. Breathing is unlabored no accessory muscle use good effort, she does have a little bit of a cough lungs show some scattered rhonchi. No respiratory distress. No focal neuro deficits. Skin shows no rashes no pallor or icterus. Knee is in an immobilizer. Heart rate up Sepsis appearancepresent on admissionappears to have been most likely related to her lung findings, most likely healthcare associated pneumonia, versus less likely daptomycin eosinophilic pneumonitis. Continue Zosyn for now, although she is improving quite nicely, and obviously she will need long-term antibiotics for her knee, so if possible will try to look towards something more narrow spectrum for her to go home on. Appreciate further infectious disease input in this regardespecially as it relates to the septic knee. Mouth ulcersprobably relates to her rheumatoid arthritis flaring up/autoimmune process in the face of her current infections and compromised state. "Magic mouthwash" supportive care Malnutrition/poor oral intakediscussed the critical importance of getting enough nutrition in. To emphasize how important this is I actually had her drink some of her protein shake while we were talking about this. Discussed the "downward spiral" of deconditioning and malnutrition, and that the only real way to protect herself from that is to eat as much and as well as she can. If this does not improve in the near future, we may need to consider an appetite stimulant. Alternatively, while there did not seem to be any real difference when she was on stress dose steroids, she was on a stress dose steroids for a very short period of time while she was sicker with the sepsis, and one could consider giving trial to slightly higher doses of corticosteroids looking at this from a slightly different angle as a possible mild addisonian feature of malaise. Seems more likely to just be poor oral intake from deconditioning/malnutrition though. Tachycardiaseems to predominantly be physiologic stress response, but given that her heart rates have gotten worse somewhat as she clinically appears better, combined with her episode of SVT yesterday, we discussed with cardiology and greatly appreciate their input. 06/18 chest x-ray finding of pulmonary edemaquestion if it is just a slightly more underpenetrated film versus if it related to her SVT this morning. Either way she is doing well enough we do not need to continue IV fluids, and she does not show an overt need for diuresis. Continue to follow clinically SVTlasted a short time, self terminated, I do wonder if she does this at home as well. Continue to monitor. Cardiology input as above. Shoulder findings on CT chestfollow clinically, would appreciate orthopedics input in this regard as well. DVT prophylaxisLovenox Otherwise as above Subjective No acute events reported overnight. She is continuing to have poor PO intake. She reports feeling improved from yesterday, cough has improved. She notes she has had intermittent oral ulcers previously. Nursing and patient note she has had some loose stools, and would like to try Cholestryamine again as was on during beginning of this admission. She does continue to have same chest pain that is worsened with movement. She notes being on chronic Pred for her RA since she was a teenager. Physical Exam Constitutional: + frail appearing and cooperative Eyes: + anicteric sclerae and EOM intact bilaterally ENMT: external ear and nose normal, oropharynx normal white ulceration lesion on tongue consistent with appearance of apthous ulcers Neck: normal visual inspection and trachea midline Respiratory: normal respiratory effort, lungs clear to auscultation no respiratory distress and no audible wheezes Auscultation: no wheezes improved air movement today Cardiovascular: RRR, no murmur, no edema Gastrointestinal (Abdomen): Percussion/Palpation: abdomen soft; abdomen nontender, no guarding and abdomen not rigid Musculoskeletal: Head/Neck/Chest: normocephalic and head atraumatic Skin: no rashes, warm and dry Neurologic: moves all extremities and awake Psychiatric: A+Ox3, euthymic affect Results & Data Vital Signs (Past 12 Hours) Vital Signs Temp Pulse Resp BP Pulse Ox Pulse Ox 06/19/19 03:38 36.8 C 123 H 20 105/55 L 92 06/19/19 00:06 36.7 C 105 H 20 120/72 96 06/18/19 20:19 94 06/18/19 19:57 36.6 C 102 H 18 126/68 93 Laboratory Results Laboratory Results - last 24 hr 06/19/19 06/19/19 06/19/19 07:47 07:47 07:47 WBC 12.80 H RBC 3.08 L Hgb 7.8 L Hct 25.4 L MCV 82.5 MCH 25.3 MCHC 30.7 L RDW Std Deviation 59.4 H RDW Coeff of Jarvis 19.4 H Plt Count 433 H MPV 9.1 Sodium 141 Potassium 3.7 D Chloride 111 H Carbon Dioxide 24 Anion Gap 6.0 BUN 9 Creatinine 0.58 L Est Cr Clr Drug Dosing 74.7 Est GFR ( Amer) 108.2 Est GFR (Non-Af Amer) 93.4 BUN/Creatinine Ratio 15.3 Glucose 98 Calcium 8.0 L Phosphorus 2.3 L Magnesium 1.8 Total Bilirubin 0.5 AST 34 ALT 45 Alkaline Phosphatase 182 H Total Protein 5.8 L Albumin 1.8 L Globulin 4.0 Albumin/Globulin Ratio 0.4 L TSH Pending Medications Administered Acetaminophen (Tylenol) 650 mg PO Q4H PRN PRN Reason: Pain or Fever Stop: 07/17/19 03:45 Last Admin: 06/19/19 08:33 Dose: 650 mg Documented by: [id number] Admin: 06/19/19 03:09 Dose: 650 mg Documented by: [id number] Admin: 06/18/19 21:47 Dose: 650 mg Documented by: [id number] Admin: 06/18/19 14:33 Dose: 650 mg Documented by: [id number] Admin: 06/18/19 09:21 Dose: 650 mg Documented by: [id number] Admin: 06/17/19 04:00 Dose: 650 mg Documented by: [id number] Cholestyramine Resin (Questran) 4 gm PO BID@1000,2200 [facility] Stop: 07/19/19 09:59 Last Admin: 06/19/19 10:28 Dose: 4 gm Documented by: [id number] Nystatin 30 ml/ Dexamethasone 3.75 mg/ Diphenhydramine HCl 300 mg/ Sucrose 45 ml/Microcrystalline Cellulose 45 ml/ BARCODE IDENTIFIER 1 ea 0 ml PO QID [facility] Stop: 07/18/19 16:59 Last Admin: 06/19/19 08:25 Dose: 5 ml Documented by: [id number] Admin: 06/18/19 20:03 Dose: 5 ml Documented by: [id number] Admin: 06/18/19 18:06 Dose: 5 ml Documented by: [id number] Enoxaparin Sodium (Lovenox) 30 mg SQ Q24H [facility] Stop: 07/17/19 08:59 Last Admin: 06/19/19 08:27 Dose: 30 mg Documented by: [id number] Admin: 06/18/19 09:03 Dose: 30 mg Documented by: [id number] Admin: 06/17/19 09:18 Dose: 30 mg Documented by: [id number] Gabapentin (Neurontin) 100 mg PO TID [facility] Stop: 07/17/19 08:59 Last Admin: 06/19/19 08:26 Dose: 100 mg Documented by: [id number] Admin: 06/18/19 20:02 Dose: 100 mg Documented by: [id number] Admin: 06/18/19 12:28 Dose: 100 mg Documented by: [id number] Admin: 06/18/19 09:04 Dose: 100 mg Documented by: [id number] Admin: 06/17/19 20:42 Dose: 100 mg Documented by: [id number] Admin: 06/17/19 13:54 Dose: 100 mg Documented by: [id number] Admin: 06/17/19 09:20 Dose: 100 mg Documented by: [id number] Piperacillin Sod/Tazobactam (Sod 3.375 gm/ Dextrose) 115 mls @ 28.75 mls/hr IV Q8H [facility]; Protocol Stop: 06/24/19 09:59 Last Admin: 06/19/19 10:28 Dose: 28.8 mls/hr Documented by: [id number] Infusion: 06/19/19 01:36 Dose: 0 mls/hr Documented by: [id number] Admin: 06/18/19 21:35 Dose: 28.8 mls/hr Documented by: [id number] Infusion: 06/18/19 21:35 Dose: 28.8 mls/hr Documented by: [id number] Admin: 06/18/19 18:03 Dose: 28.8 mls/hr Documented by: [id number] Infusion: 06/18/19 13:21 Dose: 0 mls/hr Documented by: [id number] Admin: 06/18/19 09:21 Dose: 28.8 mls/hr Documented by: [id number] Infusion: 06/18/19 06:04 Dose: 0 mls/hr Documented by: [id number] Admin: 06/18/19 02:08 Dose: 28.8 mls/hr Documented by: [id number] Infusion: 06/17/19 21:21 Dose: 0 mls/hr Documented by: [id number] Infusion: 06/17/19 21:16 Dose: 0 mls/hr Documented by: [id number] Admin: 06/17/19 17:56 Dose: 28.8 mls/hr Documented by: [id number] Infusion: 06/17/19 15:36 Dose: 0 mls/hr Documented by: [id number] Admin: 06/17/19 11:36 Dose: 28.8 mls/hr Documented by: [id number] Lactobacillus Acidophilus (Floranex) 4 tab PO QAM [facility] Stop: 07/17/19 08:59 Last Admin: 06/19/19 08:26 Dose: 4 tab Documented by: [id number] Admin: 06/18/19 09:03 Dose: 4 tab Documented by: [id number] Admin: 06/17/19 09:20 Dose: 4 tab Documented by: [id number] Oxybutynin Chloride (Ditropan) 5 mg PO BID [facility] Stop: 07/17/19 08:59 Last Admin: 06/19/19 08:26 Dose: 5 mg Documented by: [id number] Admin: 06/18/19 20:01 Dose: 5 mg Documented by: [id number] Admin: 06/18/19 09:05 Dose: 5 mg Documented by: [id number] Admin: 06/17/19 20:42 Dose: 5 mg Documented by: [id number] Admin: 06/17/19 09:20 Dose: 5 mg Documented by: [id number] Oxycodone HCl (Roxicodone Immediate Rel) 5 mg PO Q6H PRN PRN Reason: Pain Stop: 07/01/19 00:14 Last Admin: 06/19/19 10:27 Dose: 5 mg Documented by: [id number] Admin: 06/19/19 03:09 Dose: 5 mg Documented by: [id number] Admin: 06/18/19 21:47 Dose: 5 mg Documented by: [id number] Admin: 06/18/19 14:34 Dose: 5 mg Documented by: [id number] Admin: 06/18/19 05:07 Dose: 5 mg Documented by: [id number] Admin: 06/17/19 21:20 Dose: 5 mg Documented by: [id number] Admin: 06/17/19 13:53 Dose: 5 mg Documented by: [id number] Admin: 06/17/19 01:19 Dose: 5 mg Documented by: [id number] Pantoprazole Sodium (Protonix) 40 mg PO QAM [facility] Stop: 07/17/19 08:59 Last Admin: 06/19/19 08:26 Dose: 40 mg Documented by: [id number] Admin: 06/18/19 09:05 Dose: 40 mg Documented by: [id number] Admin: 06/17/19 09:20 Dose: 40 mg Documented by: [id number] Prednisone (Prednisone) 5 mg PO QAM [facility] Stop: 07/17/19 08:59 Last Admin: 06/19/19 08:26 Dose: 5 mg Documented by: [id number] Admin: 06/18/19 09:04 Dose: 5 mg Documented by: [id number] Admin: 06/17/19 17:14 Dose: Not Given Documented by: [id number] Prednisone (Prednisone) 1 mg PO PM [facility] Stop: 07/17/19 20:59 Last Admin: 06/18/19 20:02 Dose: 1 mg Documented by: [id number] Admin: 12/13/19 21:17 Dose: 1 mg Documented by: [id number] Resident Activity Tracking Resident Involvement: Resident Care Provided Care Provided: Adult Hospital Medicine (1) Fever Fever type: unspecified Qualified Code(s): R50.9 - Fever, unspecified
[2019-06-19 07:57] LABS: Hematocrit (blood only) 25.4 % (37-47); Hemoglobin 7.8 g/dL (12.0-16.0); Mean Corpuscular Hemoglobin 25.3 pg (25-34); Mean Corpuscular Hgb Conc 30.7 g/dL (32-36); Mean Corpuscular Volume 82.5 fL (80-100); Mean Platelet Volume 9.1 fL (7.4-10.4); Platelet Count 433 K/uL (130-400); RDW Coefficient of Variation 19.4 % (11.5-14.5); RDW Standard Deviation 59.4 fL (36.4-46.3); Red Blood Count 3.08 M/uL (4.2-5.4)
[2019-06-19] MEDS: NYSTATIN 30 ML, DEXAMETHASONE CONC 3.75 MG, DiphenhydrAMINE Syrup 300 MG, ORA-SWEET SYR... PO SCH ×4 (08:25→19:44)
[2019-06-19] MEDS: predniSONE 5 MG TAB PO SCH (08:26)
[2019-06-19] MEDS: LACTOBACILLUS ACIDOPHILUS (FLORANEX) TAB PO SCH (08:26)
[2019-06-19] MEDS: PANTOprazole 40 MG TAB PO SCH (08:26)
[2019-06-19] MEDS: OXYBUTYNIN CHLORIDE 5 MG TAB PO SCH ×2 (08:26→19:44)
[2019-06-19] MEDS: GABAPENTIN 100 MG CAP PO SCH ×3 (08:26→19:42)
[2019-06-19] MEDS: ENOXAPARIN INJ 30 MG/0.3 ML SYR SQ SCH (08:27)
[2019-06-19 08:37] LABS: Albumin Globulin Ratio 0.4 (0.9-2); Albumin Level 1.8 gm/dl (3.4-5.0); BUN Creatinine Ratio 15.3 (10-20); Bilirubin,Total 0.5 mg/dl (0.2-1); Creatinine Clr Calc Pharmacy 74.7 ml/min; Est GFR (African American) 108.2; Est GFR (Non-African American) 93.4; Magnesium 1.8 mg/dl (1.8-2.4); Phosphorus 2.3 mg/dl (2.5-4.9); Potassium 3.7 mmol/L (3.5-5.1); Total Protein 5.8 gm/dl (6.4-8.2)
[2019-06-19] MEDS: PIPERACILLIN/TAZOBACTAM 3.375 GM in DEXTROSE 5% 100 ML IV SCH ×2 (10:28→17:28)
[2019-06-19] MEDS: CHOLESTYRAMINE LIGHT 4 GM PKT PO SCH ×3 (10:28→19:49)
[2019-06-19] MEDS ORDERED: POTASSIUM PHOS 3 MMOL/1 ML INFUSION IV STA (13:35)
[2019-06-19] MEDS ORDERED: POTASSIUM PHOSPHATE 21 MMOL in SODIUM CHLORIDE 0.9% 500 ML IV ONE (14:00)
--- NOTE | 2019-06-19 16:55 | Cardiology Consultation ---
Date of Consultation June 19, 2019 Assessment & Plan (1) Sinus tachycardia: The patient is stable from a cardiovascular standpoint. Suspect that her sinus tachycardia is appropriate for her current clinical state. She is recovering from an operative procedure and probable pneumonia. She is also significantly anemic and on chronic steroids. She appears to be malnourished. Her echocardiogram notes normal left ventricular systolic function. Review of her vitals notes that she has been persistently tachycardic since postoperative day 2 earlier this month. No need for further cardiac testing at this time. Would simply follow her on the monitor, or with daily EKGs if she should be transferred to a medical floor. History of Present Illness Attending Physician: Charity Diaz MD History of Present Illness Mrs. Esparza is a 68-year-old female admitted on the with pneumonia. The patient has demonstrated persistent sinus tachycardia, therefore, this consultation was ordered. The patient's recent history began on June 07 when she was admitted to this institution with a septic right prosthetic knee. She had her hardware removed and an antibiotic spacer was put in its place. She was discharged on June 14, however, presented here with acute respiratory symptoms and was felt to have an early pneumonia. The patient has never known of a cardiac event. She has never had a cardiac catheterization. She has never experienced exertional angina pectoris. She further denies syncope, presyncope, PND, orthopnea, palpitations, lower extremity edema, and claudication. The patient did had a brief episode of a paroxysmal SVT on the monitoring and evaluation advisor last evening. Currently, patient resting comfortably in bed without complaints. Past medical and surgical history 1. Borderline hypertension 2. GERD 3. Rheumatoid arthritis 4. Chronic steroid use 5. Osteoporosis 6. History of Hodgkin's lymphoma 7. History of oral cancer 8. Tongue excision, left side, 2013 9. Bilateral TKR 10. Bilateral THR 11. Infected right TKR-June 2019 12. Right knee spacer-June 2019 13. History of right carpal tunnel release Social history and lives with her No tobacco or alcohol Family history Noncontributory Review of systems A 10 point review of systems was negative except for that described above. Allergies Allergy/AdvReac Type Severity Reaction Status Date / Time dalbavancin Allergy Severe hypotension, Verified 06/16/19 15:20 flushing, tachypnea Home Medications Home Medications Medication Instructions Recorded Confirmed Type Probiotic 3,000 mmu cells PO QAM 03/30/18 06/16/19 History gabapentin 100 mg PO TID 03/30/18 06/16/19 History prednisone 1 mg PO PM 03/30/18 06/16/19 History prednisone 5 mg PO QAM 03/30/18 06/16/19 History cranberry 500 mg PO HS 09/29/18 06/16/19 History omeprazole 20 mg PO BID 09/29/18 06/16/19 History [facility] 1 tab PO QAM 10/08/18 06/16/19 History oxybutynin chloride 5 mg tablet 5 mg PO BID #180 tab 12/10/18 06/16/19 Rx calcitriol 0.5 mcg capsule 0.5 mcg PO QPM 02/10/19 06/16/19 History leg brace #1 ea 02/10/19 06/16/19 Rx Calcium 600 + D(3) 1 cap PO BID 06/07/19 06/16/19 History acetaminophen [Tylenol Extra 1,000 mg PO Q8 PRN #90 tab 06/09/19 06/16/19 Rx Strength] enoxaparin [Lovenox] 30 mg SUBCUT Q24H 28 Days #28 syr 06/09/19 06/16/19 Rx oxycodone 5 mg PO Q6H PRN #30 tab MDD 6 tabs 06/09/19 06/16/19 Rx sennosides [Senokot] 17.2 mg PO HS PRN #28 tab 06/09/19 06/16/19 Rx daptomycin 360 mg IV DAILY 42 Days #1 ea 06/11/19 06/16/19 Rx pantoprazole 40 mg PO QAM #30 tab 06/13/19 06/16/19 Rx Patient History Medical History DDD (degenerative disc disease) GERD (gastroesophageal reflux disease) History of Hodgkin's lymphoma 2003/PCP under surveillance History of oral cancer s/p tongue excision left side (no chemo/XRT 2013) RA (rheumatoid arthritis) on chronic steroids Surgical History Cancer (Chronic) TONGUE EXCISION LEFT SIDE H/O foot surgery (Resolved) TOES X MULTIPLE H/O parathyroidectomy (Resolved) History of carpal tunnel release (Resolved) RIGHT History of hip surgery R/L REVISION History of total hip arthroplasty (Resolved) R/L History of total knee replacement (Resolved) R/L Status post knee surgery REVISION RIGHT KNEE 02/2016 Family History Other Family history non-contributory Social History Preferred Language: Sinhala Communication Ability: Effective Visual Impairment: Limited 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: Normal Surgical Scrub Technologist Required: No Beliefs That Will Affect Care: None marital status: Current Living Situation: Spouse current occupational status: retired Other Information That Helps Us Care for You: No Feels Safe at Home: Yes Safety Concerns: Feels Safe At This Time Smoking Status: Never smoker Do You Dip or Chew Tobacco: No ; Second Hand Exposure: No ; Tobacco Cessation Education Requested by Patient: No Hx Alcohol Use: No Hx Substance Use: No Childhood Exposure to Second-Hand Smoke: Yes Seatbelt Use: always Physical Exam Physical Exam: In general this is a well-developed well-nourished [] in no acute distress. HEENT exam is negative. Neck is supple with full carotid upstrokes. There are no carotid bruits. Jugular venous pressure is flat at 90. There is no thyromegaly. Cardiovascular exam reveals a regular rhythm with a normal S1 and S2. Heart sounds are distant. No obvious murmurs. Lungs are clear without rales, rhonchi, or wheezes. Abdomen is soft and nontender without bruits. Extremities reveal intact radial artery pulses bilaterally. There is no peripheral edema. Right knee is dressed. Results & Data Vital Signs (Past 12 Hours) Vital Signs Temp Pulse Pulse Resp BP Pulse Ox 06/19/19 15:52 104 H 06/19/19 15:28 36.7 C 103 H 20 130/57 L 95 06/19/19 11:34 37.1 C 101 H 18 120/67 92 06/19/19 08:02 37.0 C 110 H 19 138/75 90 06/19/19 07:31 101 H Laboratory Results Laboratory Results - last 24 hr 06/19/19 06/19/19 06/19/19 07:47 07:47 07:47 WBC 12.80 H RBC 3.08 L Hgb 7.8 L Hct 25.4 L MCV 82.5 MCH 25.3 MCHC 30.7 L RDW Std Deviation 59.4 H RDW Coeff of Jarvis 19.4 H Plt Count 433 H MPV 9.1 Sodium 141 Potassium 3.7 D Chloride 111 H Carbon Dioxide 24 Anion Gap 6.0 BUN 9 Creatinine 0.58 L Est Cr Clr Drug Dosing 74.7 Est GFR ( Amer) 108.2 Est GFR (Non-Af Amer) 93.4 BUN/Creatinine Ratio 15.3 Glucose 98 Calcium 8.0 L Phosphorus 2.3 L Magnesium 1.8 Total Bilirubin 0.5 AST 34 ALT 45 Alkaline Phosphatase 182 H Total Protein 5.8 L Albumin 1.8 L Globulin 4.0 Albumin/Globulin Ratio 0.4 L TSH 1.350 Diagnostic Findings EKG notes sinus tachycardia with PACs. There is nonspecific T-wave abnormality. monitoring manager noted a brief run of a paroxysmal SVT last evening. Echocardiogram notes normal left ventricular systolic function and mild LVH. PG Care Time/CCT Total # of Minutes Spent Total Time Spent with Patient: Total time spent is greater than 50% in coordination of care (as documented) at patient's floor/unit and/or counseling patient:
--- NOTE | 2019-06-19 17:01 | Billing Data ---
Date of Service June 19, 2019 Coding Level of Care Code 04678 Subseq Hosp Care Lvl 3
[2019-06-19] MEDS: predniSONE 1 MG TAB PO SCH (19:43)
[2019-06-20] MEDS: PIPERACILLIN/TAZOBACTAM 3.375 GM in DEXTROSE 5% 100 ML IV SCH ×2 (00:47→11:24)
[2019-06-20] MEDS: OXYCODONE HCL IR 5 MG TAB (IMMEDIATE RELEASE) PO PRN ×3 (04:10→20:29)
[2019-06-20] MEDS ORDERED: POTASSIUM PHOS 3 MMOL/1 ML INFUSION IV STA (07:05)
[2019-06-20] MEDS ORDERED: POTASSIUM PHOSPHATE 21 MMOL in SODIUM CHLORIDE 0.9% 500 ML IV ONE (07:30)
[2019-06-20 07:37] LABS: Hematocrit (blood only) 25.3 % (37-47); Hemoglobin 7.8 g/dL (12.0-16.0); Mean Corpuscular Hemoglobin 25.7 pg (25-34); Mean Corpuscular Hgb Conc 30.8 g/dL (32-36); Mean Corpuscular Volume 83.2 fL (80-100); Mean Platelet Volume 9.1 fL (7.4-10.4); Nucleated RBC # (auto) 0.06 K/uL (0-0); Nucleated RBC % (auto) 0.4 %; Platelet Count 508 K/uL (130-400); RDW Coefficient of Variation 19.7 % (11.5-14.5); RDW Standard Deviation 59.8 fL (36.4-46.3); Red Blood Count 3.04 M/uL (4.2-5.4); White Blood Count 14.77 K/uL (4.8-10.8)
[2019-06-20 08:08] LABS: BUN Creatinine Ratio 12.5 (10-20); Calcium 7.9 mg/dl (8.5-10.1); Est GFR (African American) 108.9; Est GFR (Non-African American) 93.9; Magnesium 1.8 mg/dl (1.8-2.4)
[2019-06-20 08:09] LABS: Phosphorus 2.3 mg/dl (2.5-4.9)
[2019-06-20] MEDS: OXYBUTYNIN CHLORIDE 5 MG TAB PO SCH ×2 (08:14→20:30)
[2019-06-20] MEDS: LACTOBACILLUS ACIDOPHILUS (FLORANEX) TAB PO SCH (08:14)
[2019-06-20] MEDS: PANTOprazole 40 MG TAB PO SCH (08:14)
[2019-06-20] MEDS: GABAPENTIN 100 MG CAP PO SCH ×3 (08:14→20:30)
[2019-06-20] MEDS: ENOXAPARIN INJ 30 MG/0.3 ML SYR SQ SCH (08:14)
[2019-06-20] MEDS: predniSONE 5 MG TAB PO SCH (08:14)
[2019-06-20] MEDS: NYSTATIN 30 ML, DEXAMETHASONE CONC 3.75 MG, DiphenhydrAMINE Syrup 300 MG, ORA-SWEET SYR... PO SCH ×4 (08:15→20:29)
--- NOTE | 2019-06-20 10:58 | Medical Student Progress Note ---
Date of Service June 20, 2019 Assessment & Plan (1) Shortness of breath: Patient is a 68-year-old female s/p R knee prosthesis explant with concurrent E.faecalis infection who presents to hospital with shortness of breath, sinus tachycardia, and palpitation. Poor Appetite, decreased PO intake 2/2 oral ulcerations - Patient was able to eat this morning, intake limited by discomfort - She continues to have poor appetite likely from ulcerations - Added 2% lidocaine to mouth rinse for topical pain relief of ulcers - magic mouth wash - will cover for thrush - Acyclovir 400mg TID for empiric treatment of potential herpes stomatitis vs apthous ulcers - Follow clinically Shortness of breath/Fever, improving - Shortness of breath on admission clinically improved but with interval worsening of pulmonary edema on 06/18 CXR. - CXR 06/18 Interval progression of pulmonary edema, small bilateral pleural effusions with bibasilar opacities which have increased. - Daptomycin discontinued for concern of lung injury, differential includes PNA - Currently on 2L O2 NC, no home oxygen requirement. Titrate SpO2 to >88%. - Echo 06/2019 shows pEF with no wall motion abnormalities, no evidence of heart failure. - Repeat CXR tomorrow AM, if signs of congestive overload consider diuresis vs PNA tx Chest Pain/SVT Episode/Sinus Tachycardia - On admission, patient was having chest pain and some palpitations which have resolved - Suspect chest pain with of MSK etiology - Cardiology consulted, reported her SVT and sinus tachycardia was appropriate given her infection and hospitilization status. No further evaluation or additional tx at this time, continue to follow clinically - Troponin downtrending, peaked at 0.148. 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 Outpt regimen to be discussed with ortho/ID at [facility] today - Was on dapto - d/jesica due to concern of adverse effect. - Per ID recommend start IV abx with vancomycin for 6 weeks. Will need weekly CBC, CMP, ESR, Vanco trough levels. - PICC present on R upper arm Hypokalemic/Hypophosphatemia: - Potassium 3.7 today, Phosphate 2.3 - 21mmol KPhos IV for repletion - BMP daily - Cr at baseline - Continue to monitor. Diarrhea, antibiotic induced: - Improving, stool is not blood, with mucous, or completely liquid - C diff testing was negative - Continue probiotic and cholestyramine. Anemia - of chronic ds - likely from infection. follow h/h. transfuse if hb lower than 7. Severe protein/calorie malnutrition - continue with supplemental drinks RA - Continue prednisone 5mg daily qam, 1mg qPM Code: Full Dispo: Telemetry DVTP: Lovenox 30mg SQ daily (2) Pleural effusion: (3) Sinus tachycardia: (4) Infection of knee: (5) Diarrhea: (6) RA (rheumatoid arthritis): (7) Poor appetite: (8) Oral mucosal lesion: Supervising Attestation Medical Student Supervision Note: I independently interviewed and examined the patient and verified the chapman history and physical, reviewed labs and image studies, discussed the case with Abhi éMndez and agree with the findings and care plan. SOB - improved. follow Mouth ulcers causing poor appetite - lidocaine/acyclovir. continue diet supplement. monitor h/h. iron studies may not be conclusive considering current infection. follow. Subjective Patient reports that she is feeling tired, but it is due to physical exertion from being moved from the bed to chair. For breakfast, she was able to eat one bowl of oatmeal without any bloating, nausea/vomiting, or abdominal pain. Her brought some Ensure the previous night, but she hasn't drank any yet. She doesn't crave any food nor feels hungry, and feels that her mouth ulcers are the primary barrier to eating. She wants to hold off on starting Marrinol. Improving non-productive cough and diarrhea. Her diarrhea is loose, but not liquid. Has not had any blood or mucous in her bowel movements. Review of Systems Constitutional: + fatigue Ear, Nose, Mouth, Throat: + mouth lesions Respiratory: + cough; no hemoptysis, no pain with cough and no sputum production Cardiovascular: no chest pain, no palpitations and no edema Gastrointestinal: + diarrhea/loose stools; no abdominal pain, no bloating, no nausea and no vomiting Integumentary: Neurologic: no numbness, no dizziness, no headache(s) and no confusion Hematologic / Lymphatic: + easy bruising Physical Exam Constitutional: + frail appearing and cooperative Eyes: PERRL, conjunctivae normal, anicteric sclerae ENMT: external ear and nose normal, oropharynx normal Mouth: + oral mucosal abnormality (White ulcerations on tongue and inside of lower lips ) Neck: normal visual inspection Respiratory: normal respiratory effort and + cough (nonproductive) Auscultation: + crackles (Lower left lung field) Cardiovascular: RRR, no murmur, no edema Gastrointestinal (Abdomen): normal bowel sounds, soft, nontender, no hepatosplenomegaly Musculoskeletal: Head/Neck/Chest: normocephalic and head atraumatic Skin: no rashes, warm and dry (bruising on dorsal L hand consistent with prior IV placement) Neurologic: moves all extremities Psychiatric: A+Ox3, euthymic affect Results & Data Vital Signs (Past 12 Hours) Vital Signs Temp Pulse Pulse Resp BP Pulse Ox 06/20/19 07:48 112 H 06/20/19 07:13 37.2 C 109 H 18 141/65 H 92 06/20/19 04:26 37.3 C 97 H 19 136/81 93 06/20/19 00:23 36.8 C 104 H 17 135/72 93 06/19/19 23:38 107 H Laboratory Results 06/20/19 06/20/19 06/19/19 Range/Units 07:15 07:15 07:47 WBC 14.77 H (4.8-10.8) K/uL RBC 3.04 L (4.2-5.4) M/uL Hgb 7.8 L (12.0-16.0) g/dL Hct 25.3 L (37-47) % MCV 83.2 (80-100) fL MCH 25.7 (25-34) pg MCHC 30.8 L (32-36) g/dL RDW Std Deviation 59.8 H (36.4-46.3) fL RDW Coeff of Jarvis 19.7 H (11.5-14.5) % Plt Count 508 H (130-400) K/uL MPV 9.1 (7.4-10.4) fL Absolute Nucleated RBC 0.06 H (0-0) K/uL Nucleated RBC % (auto) 0.4 % Sodium 141 (136-145) mmol/L Potassium 4.0 (3.5-5.1) mmol/L Chloride 110 H (98-107) mmol/L Carbon Dioxide 23 (21-32) mmol/L Anion Gap 8.0 (3-11) BUN 7 (7-18) mg/dl Creatinine 0.57 L (0.6-1.2) mg/dl Est Cr Clr Drug Dosing 76.0 ml/min Est GFR ( Amer) 108.9 Est GFR (Non-Af Amer) 93.9 BUN/Creatinine Ratio 12.5 (10-20) Glucose 98 (70-99) mg/dl Calcium 7.9 L (8.5-10.1) mg/dl Phosphorus 2.3 L (2.5-4.9) mg/dl Magnesium 1.8 (1.8-2.4) mg/dl TSH 1.350 (0.300-4.500) uIu/ml Diagnostic Findings 06/18/19 - Chest XR = interval progression of pulmonary edema, small bilateral pleural effusion with bibasilar opacities which have increased 06/16/19 - Chest CTA = no pulmonary emboli, small bilateral pleural effusion with mild interstitial pulmonary edema, scattered subpleural ground glass opacities, asymmetric increased attenuation of the medullary space of the left humerus with possible endosteal scalloping 06/16/19 - Chest XR = developing components of mild congestive HD, trace pleural fluid costophrenic angles bilaterally
[2019-06-20] MEDS: ACETAMINOPHEN 325 MG TAB PO PRN (11:27)
--- NOTE | 2019-06-20 14:16 | Infectious Disease Progress Nt ---
Date of Service June 20, 2019 Assessment & Plan (1) Infection of total right knee replacement: concern that she may be having adverse reaction to dapto - ? developing interstitial pneumonitis. CTA without PE. breathing improved. would suggest continue IV abx therapy for knee infection with vanco. will need weekly cbc, cmp, esr, vanco trough (maintain 15-20). Should received 6 weeks from time of OR. ok for d/c when otherwise stable Subjective cultures remain negative, afebrile. remains on zosyn, vanco stopped. no additoinal E. faecalis.wbc improving. Results & Data Vital Signs (Past 12 Hours) Vital Signs Temp Pulse Pulse Resp BP Pulse Ox 06/20/19 12:14 36.5 C 101 H 19 134/73 98 06/20/19 07:48 112 H 06/20/19 07:13 37.2 C 109 H 18 141/65 H 92 06/20/19 04:26 37.3 C 97 H 19 136/81 93 Laboratory Results Microbiology 06/17/19 16:46 Urine,Clean Catch Urine Culture - Final No growth - less than 1,000 colonies/mL. 06/16/19 14:50 Blood Aerobic Blood Culture - Preliminary No growth in Aerobic bottle after 48 hours. 06/16/19 14:50 Blood Anaerobic Blood Culture - Final 06/16/19 14:39 Blood Aerobic Blood Culture - Preliminary No growth in Aerobic bottle after 48 hours. 06/16/19 14:39 Blood Anaerobic Blood Culture - Preliminary No growth in Anaerobic bottle after 48 hours. PG Care Time/CCT Total # of Minutes Spent Total Time Spent with Patient: Total time spent is greater than 50% in pilates coordinator rdination of care (as documented) at patient's floor/unit and/or counseling patient:
[2019-06-20] MEDS: ACYCLOVIR 400 MG TAB PO SCH ×2 (14:54→20:29)
[2019-06-20] MEDS ORDERED: VANCOMYCIN CONSULT ACTIVE PRN (15:24)
[2019-06-20] MEDS ORDERED: VANCOMYCIN HCL 1,500 MG in SODIUM CHLORIDE 0.9% 500 ML IV STA (15:33)
--- NOTE | 2019-06-20 19:56 | Pharmacy Report ---
Pharmacy Abx Dose Short Note - Date of Service June 20, 2019 - Assessment & Plan Assessment 68 year old F receiving IV Vancomycin for treatment of total right knee replacement infection Day # 4 of antimicrobial therapy (day 1 of Vancomycin) * Recent sCr = 0.57 mg/dL with estimated CrCl ~76 mL/min. Estimated pharmacokinetic parameters: * Ke ~0.067/hr, T1/2 ~10.3 hrs * Patient to receive 6 weeks of IV Vancomycin - need to keep dosing regimen as feasible/reasonable for outpatient dosing as possible Plan Vancomycin * Give Vancomycin 1500mg (~25 mg/kg) IV x 1 as a loading dose * Initiate Vancomycin 1000mg (~16.8 mg/kg) IV q12 as maintenance * Goal trough level for infected knee : 15 to 20 mcg/mL * Trough level ordered for: 06/22/19 @ 0530 (only prior to 3rd dose and therefore not reflective of steady state) Pharmacy will continue to follow and will adjust dose/frequency as necessary. Thank you.
[2019-06-20] MEDS: CHOLESTYRAMINE LIGHT 4 GM PKT PO SCH (20:29)
[2019-06-20] MEDS: predniSONE 1 MG TAB PO SCH (20:29)
[2019-06-20] MEDS ORDERED: LORazepam 0.5 MG/1 ML VIAL IV STA (22:04)
[2019-06-20] MEDS ORDERED: LEVALBUTEROL HCL 0.63 MG/3 ML NEB NEB STA (22:37)
--- NOTE | 2019-06-20 23:01 | XRay Report ---
XR chest 1V portable HISTORY: cough COMPARISON: Chest 06/18/2019. FINDINGS: A right PICC terminates at the distal SVC. No pneumothorax. Mild to moderate pulmonary divya a and small bilateral pleural effusions have progressed. The heart is normal in size. Advanced degene rative changes within the shoulders. IMPRESSION: Interval progression of the pulmonary edema and small bilateral pleural effusions. Electronically signed by: Jez Mckay M.D. 06/20/2019 11:00 PM
[2019-06-20] MEDS: BENZONATATE 100 MG CAPSULE PO PRN (23:17)
[2019-06-20] MEDS ORDERED: FUROSEMIDE 10 MG in SYRINGE 0 ML IV ONE (23:45)
[2019-06-21] MEDS: ACETAMINOPHEN 325 MG TAB PO PRN (00:04)
[2019-06-21] MEDS ORDERED: SODIUM CHLORIDE 0.9% 1000ML 250 ML IV ONE (01:58)
[2019-06-21] MEDS ORDERED: dilTIAZem HCl 5 MG/ML 5 ML VIAL IV STA (01:58)
[2019-06-21] MEDS ORDERED: PIPERACILL/TAZOBAC CONSULT ACTIVE PRN (02:00)
[2019-06-21] MEDS ORDERED: dilTIAZem HCl 5 MG/ML 5 ML VIAL IV ONE (02:20)
[2019-06-21] MEDS ORDERED: AMIODARONE IV BOLUS / DRIP IV STA (02:25)
[2019-06-21] MEDS ORDERED: AMIODARONE / D5W 150 MG/100 ML BAG IV STA (02:25)
[2019-06-21] MEDS ORDERED: AMIODARONE 360MG / 200ML D5W IV ONE (02:29)
[2019-06-21] MEDS ORDERED: AMIODARONE 150MG / 100ML D5W IV ONE (02:29)
[2019-06-21] MEDS ORDERED: PIPERACILLIN/TAZOBACTAM 3.375 GM in DEXTROSE 5% 100 ML IV ONE (02:30)
[2019-06-21 02:31] LABS: Basophils # (auto) 0.02 K/uL (0-0.2); Basophils % (auto) 0.1 %; Eosinophils # (auto) 0.45 K/uL (0-0.5); Eosinophils % (auto) 2.8 %; Hematocrit (blood only) 28.6 % (37-47); Hemoglobin 8.7 g/dL (12.0-16.0); Immature Granulocytes # (auto) 0.28 K/uL (0.00-0.02); Immature Granulocytes % (auto) 1.7 %; Lymphocytes # (auto) 0.76 K/uL (1.2-3.4); Lymphocytes % (auto) 4.7 %; Mean Corpuscular Hemoglobin 24.7 pg (25-34); Mean Corpuscular Volume 81.3 fL (80-100); Mean Platelet Volume 9.5 fL (7.4-10.4); Monocytes % (auto) 5.5 %; Neutrophils # (auto) 13.92 K/uL (1.4-6.5); Neutrophils % (auto) 85.2 %; Nucleated RBC # (auto) 0.12 K/uL (0-0); Nucleated RBC % (auto) 0.8 %; Platelet Count 526 K/uL (130-400); RDW Coefficient of Variation 19.9 % (11.5-14.5); Red Blood Count 3.52 M/uL (4.2-5.4); White Blood Count 16.33 K/uL (4.8-10.8)
[2019-06-21 02:48] LABS: Calcium 7.8 mg/dl (8.5-10.1); Creatinine Clr Calc Pharmacy 59.3 ml/min; Est GFR (African American) 96.7; Est GFR (Non-African American) 83.4; Magnesium 1.6 mg/dl (1.8-2.4)
[2019-06-21] MEDS: AMIODARONE / D5W 360 MG/200 ML BAG IV SCH ×4 (03:00→19:55)
[2019-06-21] MEDS: MAGNESIUM SULFATE / D5W 1 GM/100 ML BAG IV SCH ×2 (03:00→04:18)
[2019-06-21 03:11] LABS: Troponin I 0.216 ng/ml (0-0.045)
[2019-06-21 03:19] LABS: Mean Corpuscular Hgb Conc 30.4 g/dL (32-36)
[2019-06-21] MEDS ORDERED: Heparin IV Standard *NO* Bolus IV ONE (03:32)
[2019-06-21] MEDS: HEPARIN SODIUM/DEXTROSE 25,000 UNITS/500 ML BAG IV SCH (04:18)
[2019-06-21] MEDS ORDERED: DIGOXIN 250 MCG in SYRINGE 9 ML IV ONE (04:45)
--- NOTE | 2019-06-21 05:33 | Progress Note ---
Date of Service June 21, 2019 Assessment & Plan (1) Shortness of breath: Called to bedside by nursing early in the evening due to patient being anxious and short of breath. Upon arrival, she was tachypneic, however saturating well on nasal cannula. Auscultation of her lungs revealed bilateral crackles at the bases. I ordered Xopenex, Tessalon Perles and a chest x-ray. Her chest x-ray revealed progression of her pulmonary edema and small bilateral pleural effusions. I ordered a one-time dose of 10 mg of IV Lasix. I was later informed by nursing that she was diuresing well, and reported improvement in her cough and shortness of breath. At approximately 1:42 AM, I received a call from nursing to say that Ms. Esparza's heart rate was now in the 180s, and her blood pressure was 90/59. Her temperature at this time was 38.3 C. A stat EKG was obtained and confirmed atrial fibrillation. I ordered a stat CBC, BMP, magnesium, troponin, and blood cultures. At this time, Ms. Esparza was awake, oriented x3, and had no complaints. Vagal maneuvers were attempted, to no avail. She was administered a one-time dose of 5 mg of IV Cardizem, which did not improve her rate. She was then given a bolus of amiodarone and started on an amiodarone drip. Her white cell count came back further elevated than before at 16.3. I restarted her Zosyn. Her magnesium was low at 1.6. I ordered 1 g of magnesium sulfate x2 bags. Her troponin came back elevated at 0.216. Her heart rate did not improve with the amiodarone drip. Given her chadsvasc score of 2, she was started on a heparin drip. She was then loaded with digoxin. Her heart rate improved from 180s to low 100s, and she is now currently in sinus tachycardia. Jr Louis, PGY-3 score caller resident Results & Data Vital Signs (Past 12 Hours) Vital Signs Temp Pulse Pulse Pulse Resp BP Pulse Ox 06/21/19 05:17 102 H 24 97/60 L 98 06/21/19 03:48 185 H 22 94/57 L 98 06/21/19 02:09 36.4 C L 06/21/19 01:42 182 H 182 H 22 93 06/21/19 00:21 138 H 94 06/21/19 00:20 38.3 C H 139 H 36 H 136/41 L 88 L 06/20/19 22:46 114 H 24 91 06/20/19 20:17 36.9 C 86 18 145/84 H 95 Resident Activity Tracking Resident Involvement: Business Initiatives Manager Coverage Note Care Provided: Adult Hospital Medicine
[2019-06-21] MEDS ORDERED: VANCOMYCIN HCL 1,000 MG in SODIUM CHLORIDE 0.9% 250 ML IV SCH (06:00)
--- NOTE | 2019-06-21 07:16 | XRay Report ---
XR chest 1V portable HISTORY: 68 years-old Female pleural effusion follow up study in a patient with pleural effusions an d cough COMPARISON: Chest radiograph 06/20/2019, CTA chest 06/16/2019 TECHNIQUE: Portable AP view of the chest FINDINGS: Cardiomediastinal and hilar silhouettes are unchanged. Unchanged positioning of the right-sided PICC. Small bilateral pleural effusions with persistent pulmonary edema pattern and basilar opacities pers ist. Biapical pleural-parenchymal scarring redemonstrated. No pneumothorax. 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 Chronic remodeling changes of th e bilateral shoulders are also noted. Surgical clips project over the left neck. IMPRESSION: 1. Unchanged pulmonary edema pattern with small pleural effusions and bibasilar opacities suggestive of atelectasis. The above report was generated using voice recognition software. It may contain grammatical, syntax o r spelling errors. Electronically signed by: Yasmani Cespedes M.D. 06/21/2019 7:15 AM
[2019-06-21] MEDS: PIPERACILLIN/TAZOBACTAM 3.375 GM in DEXTROSE 5% 100 ML IV SCH ×2 (07:47→17:47)
[2019-06-21 07:52] LABS: Basophils # (auto) 0.03 K/uL (0-0.2); Basophils % (auto) 0.2 %; Eosinophils # (auto) 0.68 K/uL (0-0.5); Eosinophils % (auto) 4.5 %; Hematocrit (blood only) 27.4 % (37-47); Hemoglobin 8.4 g/dL (12.0-16.0); Immature Granulocytes # (auto) 0.31 K/uL (0.00-0.02); Immature Granulocytes % (auto) 2.1 %; Lymphocytes # (auto) 0.88 K/uL (1.2-3.4); Lymphocytes % (auto) 5.8 %; Mean Corpuscular Hemoglobin 25.3 pg (25-34); Mean Corpuscular Hgb Conc 30.7 g/dL (32-36); Mean Corpuscular Volume 82.5 fL (80-100); Mean Platelet Volume 9.4 fL (7.4-10.4); Monocytes # (auto) 1.01 K/uL (0.11-0.59); Monocytes % (auto) 6.7 %; Neutrophils # (auto) 12.14 K/uL (1.4-6.5); Neutrophils % (auto) 80.7 %; Nucleated RBC # (auto) 0.12 K/uL (0-0); Nucleated RBC % (auto) 0.8 %; Platelet Count 503 K/uL (130-400); RDW Standard Deviation 60.3 fL (36.4-46.3); Red Blood Count 3.32 M/uL (4.2-5.4); White Blood Count 15.05 K/uL (4.8-10.8)
[2019-06-21 08:28] LABS: Anisocytosis Present; Echinocytes 1+
[2019-06-21] MEDS ORDERED: FUROSEMIDE 40 MG in SYRINGE 0 ML IV ONE (10:30)
[2019-06-21] MEDS ORDERED: OPTIRAY 320 125ml IV PRN (10:45)
[2019-06-21] MEDS: predniSONE 5 MG TAB PO SCH (10:56)
[2019-06-21] MEDS: ACYCLOVIR 400 MG TAB PO SCH ×3 (10:56→19:55)
[2019-06-21] MEDS: GABAPENTIN 100 MG CAP PO SCH ×3 (10:56→19:54)
[2019-06-21] MEDS: PANTOprazole 40 MG TAB PO SCH (10:56)
[2019-06-21] MEDS: OXYBUTYNIN CHLORIDE 5 MG TAB PO SCH ×2 (10:56→19:54)
[2019-06-21] MEDS: LACTOBACILLUS ACIDOPHILUS (FLORANEX) TAB PO SCH (10:56)
[2019-06-21] MEDS: NYSTATIN 30 ML, DEXAMETHASONE CONC 3.75 MG, DiphenhydrAMINE Syrup 300 MG, ORA-SWEET SYR... PO SCH ×4 (10:57→19:55)
[2019-06-21] MEDS: CHOLESTYRAMINE LIGHT 4 GM PKT PO SCH ×2 (10:57→21:12)
[2019-06-21] MEDS: DIGOXIN 125 MCG in SYRINGE 9.5 ML IV SCH ×2 (11:00→17:47)
--- NOTE | 2019-06-21 11:03 | CT Scan Report ---
CT angio chest PE protocol CLINICAL HISTORY: 68 years-old Female presenting with shortness of breath, pleural effusion, clinical concern for pulmonary embolus. TECHNIQUE: Multidetector CT angiography of the chest was performed after administration of intravenou s contrast. 3-D volumetric and/or maximum intensity projection (MIP) images were subsequently reconst ructed for review. IV contrast: 120 mL of Optiray 320. One or more dose lowering techniques were used consistent with the principles of ALARA (as low as reasonably achievable), including automatic expos ure control, mA or kV adjustment to individual patient size, and/or use of iterative reconstruction. COMPARISON: 06/16/2019. CT DOSE (mGy.cm): The estimated cumulative dose is 590.80 mGy.cm. FINDINGS: Manager Behavior topogram: Unremarkable. Pulmonary vasculature: The study is suboptimal for the assessment of the pulmonary vascular tree secondary to timing of the contrast bolus. No filling defect within the pulmonary arteries to suggest embolus. Main pulmonary ar ariel is not enlarged. No flattening of the interventricular septum. No intracardiac filling defect. N o reflux of contrast into the hepatic veins. Remaining chest: Soft tissues: Normal thyroid and thoracic inlet. No axillary, supraclavicular, mediastinal, or hilar lymphadenopathy. Atherosclerosis of the aorta. Mitral annular calcification. Borderline enlargement o f the heart. Large bilateral simple-appearing pleural effusions. These have significantly increased i n size since prior exam. No pericardial effusion. Upper abdomen normal. Lungs and airways: No pneumothorax. Central airways patent. Pulmonary arteries enlarged relative to a djacent bronchi. Mild diffuse intralobular septal thickening. Extensive passive atelectasis in the lo wer lobes secondary to the effusions. Atelectasis has significantly increased from prior. Patchy florecita pheral and peribronchial vascular groundglass and solid consolidation in the upper lobes, right great er than left. This is new in the right upper lobe though present on prior exam in the left upper lobe . Musculoskeletal: Degenerative changes of the spine. Advanced degenerative changes of the glenohumeral joints. IMPRESSION: 1. No evidence of pulmonary embolus. 2. Pulmonary vasculature engorged with interlobular septal thickening consistent with congestive janki nge. 3. Volume overload further evidenced by interval increase in size of the now large bilateral pleural effusions with extensive passive atelectasis at the lung bases. 4. Peripheral and peribronchovascular groundglass and solid infiltrates in the right upper lobe are largely new from prior with persistent left upper lobe infiltrates. While this most likely represents pulmonary edema, the appearance and distribution are atypical and could raise concern for a superimp osed airway inflammatory process, including eosinophilic pneumonia and organizing pneumonia. Electronically signed by: Lorenzo Combs M.D. 06/21/2019 11:02 AM
[2019-06-21] MEDS ORDERED: FAMOTIDINE 20 MG in SYRINGE 3 ML IV ONE (11:45)
[2019-06-21 12:20] LABS: Partial Thromboplastin Ratio 1.2; Partial Thromboplastin Time 31.6 Seconds (21.0-31.0)
[2019-06-21] MEDS ORDERED: HEPARIN IV BOLUS 4,000 UNITS in SYRINGE 0 ML IV ONE ×2 (12:25→20:20)
--- NOTE | 2019-06-21 13:11 | Cardiology Progress Note ---
Date of Service June 21, 2019 Assessment & Plan (1) Paroxysmal SVT (supraventricular tachycardia): Review of the pulpwood buyer notes several paroxysms of an SVT. These did not seem to be well tolerated. Agree with intravenous amiodarone. Would convert to 100 mg p.o. b.i.d. after 24 hours of intravenous therapy. (2) Sinus tachycardia: The patient continues to demonstrate sinus tachycardia with frequent PACs. No definite atrial fibrillation. Subjective The patient complains of feeling miserable. She denies chest pain, dyspnea, and palpitations. Physical Exam Physical Exam: In general this is a well-developed well-nourished white female in no acute distress. HEENT exam is negative. Neck is supple with full carotid upstrokes. There are no carotid bruits. Jugular venous pressure is flat at 90. There is no thyromegaly. Cardiovascular exam reveals a regular rhythm with a normal S1 and S2. Heart sounds are distant. No obvious murmurs. Lungs are clear without rales, rhonchi, or wheezes. Abdomen is soft and nontender without bruits. Extremities reveal intact radial artery pulses bilaterally. There is no peripheral edema. Right knee is dressed. Results & Data Vital Signs (Past 12 Hours) Vital Signs Temp Pulse Pulse Pulse Resp BP Pulse Ox 06/21/19 11:59 36.8 C 96 H 18 122/56 L 99 06/21/19 11:48 101 H 26 H 95 06/21/19 11:00 98 H 06/21/19 07:44 36.6 C 107 H 24 128/69 97 06/21/19 05:17 102 H 24 97/60 L 98 06/21/19 03:48 185 H 22 94/57 L 98 06/21/19 02:09 36.4 C L 06/21/19 01:42 182 H 182 H 22 93 Diagnostic Findings pvc monitor notes sinus tachycardia with frequent PACs. There were several runs of a supraventricular tachycardia. No definite atrial fibrillation. PG Care Time/CCT Total # of Minutes Spent Total Time Spent with Patient: Total time spent is greater than 50% in coordination of care (as documented) at patient's floor/unit and/or counseling patient:
--- NOTE | 2019-06-21 13:28 | Medical Student Progress Note ---
Date of Service June 21, 2019 Assessment & Plan (1) Shortness of breath: Patient is a 68-year-old female s/p R knee prosthesis explant with concurrent E.faecalis infection with worsening dyspnea and hypoxia with paroxysmal SVT and sinus tachycardia. Acute respiratory failure secondary to fluid overload with worsening b/l Pleural Effusion in setting of Tachyarrhythmia - CXR 06/21 Unchanged pulmonary edema pattern with small pleural effusion and bibasilar opacities suggestive of atelectasis - Obtained CTA 06/21 No evidence of pulmonary embolism, pulmonary vasculature engorged with interlobular septal thickening consistent with congestive change, volume overload evidenced by interval increase in size of now large bilateral pleural effusion with extensive passive atelectasis at lung bases, ongoing pulmonary edema - Suspect transudative pleural effusion - will diuresis with 40mg IV furosemide - started BiPAP with improvement Chest Pain/SVT Episode/a fib - On admission, patient was having chest pain and some palpitations which had resolved with suspicion of chest pain with of MSK etiology - Echo 06/2019 shows pEF with no wall motion abnormalities, no evidence of heart failure. - Overnight, episode of hypotension. Cardiology consulted, on 06/21 EKG patient has paroxysmal SVT and sinus tachycardia with frequent PACs, no definite atrial fibrillation. Initial treatment included 5mg IV Cardizem, bolus amiodarone transitioned to gtt, magnesium sulfate, and load of digoxin. - Currently just on IV amiodarone, convert to 100 mg BID after 24hrs of IV. 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 Will need weekly CBC, CMP, ESR, Vanco trough levels. - PICC present on R upper arm Anemia - monitor h/h, iron studies may not be conclusive considering current infection. - Continue to monitor Hypokalemic/Hypophosphatemia: - Potassium 4.0 today, Phosphate 2.3 - replet as needed, trend daily BMP Diarrhea, antibiotic induced: - Improving, stool is not blood, with mucous, or completely liquid - C diff testing was negative - Continue probiotic and cholestyramine. RA - Continue prednisone 5mg daily qam, 1mg qPM Code: Full Dispo: Telemetry DVTP: Heparin gtt FEN/GI: regular (2) Pleural effusion: (3) Sinus tachycardia: (4) Infection of knee: (5) Diarrhea: (6) RA (rheumatoid arthritis): (7) Poor appetite: (8) Oral mucosal lesion: Supervising Attestation Medical student Supervision Note: I independently interviewed and examined the patient and verified the chapman history and physical, reviewed labs and image studies, discussed the case with Abhi Méndez and agree with the findings and care plan. Subjective Pt is feeling tired due to increased SOB overnight. Unable to give detailed history due to dyspnea. Currently denies any chest pain and palpitations. is visibly sad about patients decline, but he is cooperative and understanding. Continues to have loose diarrhea with no blood or mucous. Review of Systems Constitutional: + fatigue; no fever Ear, Nose, Mouth, Throat: + mouth lesions Respiratory: + cough and + dyspnea; no hemoptysis, no pain with cough and no sputum production Cardiovascular: no chest pain, no palpitations and no edema Gastrointestinal: + diarrhea/loose stools; no abdominal pain, no bloating, no nausea and no vomiting Integumentary: Hematologic / Lymphatic: + easy bruising Physical Exam Constitutional: + acute distress, + ill appearing and + frail appearing Eyes: PERRL, conjunctivae normal, anicteric sclerae ENMT: external ear and nose normal, oropharynx normal Mouth: + oral mucosal abnormality (White ulcerations on tongue and inside of lower lips ) Neck: normal visual inspection Respiratory: + respiratory distress, + labored breathing and + cough (nonproductive) Auscultation: + crackles (Lower left lung field) Cardiovascular: Rate/Rhythm: + tachycardic Heart Sounds: normal S1 and normal S2; no gallop, no murmur and no cardiac rub Vessels: + JVD (with heptaogular reflex) Extremities: no edema no carotid bruits b/l Gastrointestinal (Abdomen): normal bowel sounds, soft, nontender, no hepatosplenomegaly Musculoskeletal: Head/Neck/Chest: normocephalic and head atraumatic Skin: no rashes, warm and dry (bruising on dorsal L hand consistent with prior IV placement) Neurologic: moves all extremities Psychiatric: Orientation: oriented x 3 Results & Data Vital Signs (Past 12 Hours) Vital Signs Temp Pulse Pulse Pulse Resp BP Pulse Ox 06/21/19 11:59 36.8 C 96 H 18 122/56 L 99 06/21/19 11:48 101 H 26 H 95 06/21/19 11:00 98 H 06/21/19 07:44 36.6 C 107 H 24 128/69 97 06/21/19 05:17 102 H 24 97/60 L 98 06/21/19 03:48 185 H 22 94/57 L 98 06/21/19 02:09 36.4 C L 06/21/19 01:42 182 H 182 H 22 93 Laboratory Results 06/21/19 06/21/19 06/21/19 Range/Units 11:55 07:34 02:08 WBC 15.05 H 16.33 H (4.8-10.8) K/uL RBC 3.32 L 3.52 L (4.2-5.4) M/uL Hgb 8.4 L 8.7 L (12.0-16.0) g/dL Hct 27.4 L 28.6 L (37-47) % MCV 82.5 81.3 (80-100) fL MCH 25.3 24.7 L (25-34) pg MCHC 30.7 L 30.4 L (32-36) g/dL RDW Std Deviation 60.3 H 59.0 H (36.4-46.3) fL RDW Coeff of Jarvis 20.0 H 19.9 H (11.5-14.5) % Plt Count 503 H 526 H (130-400) K/uL MPV 9.4 9.5 (7.4-10.4) fL Immature Gran % (Auto) 2.1 1.7 % Neut % (Auto) 80.7 85.2 % Lymph % (Auto) 5.8 4.7 % [place] % (Auto) 6.7 5.5 % Eos % (Auto) 4.5 2.8 % Baso % (Auto) 0.2 0.1 % Immature Gran # (Auto) 0.31 H 0.28 H (0.00-0.02) K/uL Neut # (Auto) 12.14 H 13.92 H (1.4-6.5) K/uL Lymph # (Auto) 0.88 L 0.76 L (1.2-3.4) K/uL [place] # (Auto) 1.01 H 0.90 H (0.11-0.59) K/uL Eos # (Auto) 0.68 H 0.45 (0-0.5) K/uL Baso # (Auto) 0.03 0.02 (0-0.2) K/uL Absolute Nucleated RBC 0.12 H 0.12 H (0-0) K/uL Nucleated RBC % (auto) 0.8 0.8 % Anisocytosis Present Echinocytes 1+ APTT 31.6 H (21.0-31.0) Seconds PTT Ratio 1.2 Sodium (136-145) mmol/L Potassium (3.5-5.1) mmol/L Chloride (98-107) mmol/L Carbon Dioxide (21-32) mmol/L Anion Gap (3-11) BUN (7-18) mg/dl Creatinine (0.6-1.2) mg/dl Est Cr Clr Drug Dosing ml/min Est GFR ( Amer) Est GFR (Non-Af Amer) BUN/Creatinine Ratio (10-20) Glucose (70-99) mg/dl Calcium (8.5-10.1) mg/dl Magnesium (1.8-2.4) mg/dl Troponin I (0-0.045) ng/ml 06/21/19 Range/Units 02:08 WBC (4.8-10.8) K/uL RBC (4.2-5.4) M/uL Hgb (12.0-16.0) g/dL Hct (37-47) % MCV (80-100) fL MCH (25-34) pg MCHC (32-36) g/dL RDW Std Deviation (36.4-46.3) fL RDW Coeff of Jarvis (11.5-14.5) % Plt Count (130-400) K/uL MPV (7.4-10.4) fL Immature Gran % (Auto) % Neut % (Auto) % Lymph % (Auto) % [place] % (Auto) % Eos % (Auto) % Baso % (Auto) % Immature Gran # (Auto) (0.00-0.02) K/uL Neut # (Auto) (1.4-6.5) K/uL Lymph # (Auto) (1.2-3.4) K/uL [place] # (Auto) (0.11-0.59) K/uL Eos # (Auto) (0-0.5) K/uL Baso # (Auto) (0-0.2) K/uL Absolute Nucleated RBC (0-0) K/uL Nucleated RBC % (auto) % Anisocytosis Echinocytes APTT (21.0-31.0) Seconds PTT Ratio Sodium 139 (136-145) mmol/L Potassium 4.0 (3.5-5.1) mmol/L Chloride 113 H (98-107) mmol/L Carbon Dioxide 21 (21-32) mmol/L Anion Gap 5.0 (3-11) BUN 9 (7-18) mg/dl Creatinine 0.73 (0.6-1.2) mg/dl Est Cr Clr Drug Dosing 59.3 ml/min Est GFR ( Amer) 96.7 Est GFR (Non-Af Amer) 83.4 BUN/Creatinine Ratio 12.0 (10-20) Glucose 87 (70-99) mg/dl Calcium 7.8 L (8.5-10.1) mg/dl Magnesium 1.6 L (1.8-2.4) mg/dl Troponin I 0.216 H* (0-0.045) ng/ml
--- NOTE | 2019-06-21 15:36 | Pharmacy Report ---
Pharmacy Abx Dose Short Note - Date of Service June 21, 2019 - Assessment & Plan Assessment 68 year old F receiving vancomycin for treatment of infected R Knee- enterococcus faecalis Also restarted on zosyn for acute worsening. Plan Vancomycin * SCr 0.73 today, estimated half life of 13 hours, will adjust dose to 750 mg q12H in an attempt to keep frequency at easy to dose interval for possible outpatient management * Will still obtain trough tomorrow AM to ensure dose had not accumulated too quickly. Zosyn dosed appropriately for renal function Pharmacy will continue to follow and will adjust dose/frequency as necessary. Thank you.
[2019-06-21] MEDS: VANCOMYCIN HCL 750 MG in SODIUM CHLORIDE 0.9% 250 ML IV SCH (17:46)
[2019-06-21] MEDS: predniSONE 1 MG TAB PO SCH (19:54)
[2019-06-21 19:58] LABS: Partial Thromboplastin Ratio 1.4; Partial Thromboplastin Time 37.7 Seconds (21.0-31.0)
[2019-06-22] MEDS: LOPERAMIDE HCL 2 MG CAP PO PRN ×2 (00:25→08:03)
[2019-06-22] MEDS: PIPERACILLIN/TAZOBACTAM 3.375 GM in DEXTROSE 5% 100 ML IV SCH ×2 (00:25→07:45)
[2019-06-22] MEDS: ACETAMINOPHEN 325 MG TAB PO PRN (00:29)
[2019-06-22] MEDS ORDERED: POTASSIUM CHLORIDE 20 MEQ TABCR PO STA (01:29)
[2019-06-22] MEDS ORDERED: METOPROLOL TARTRATE 1 MG/ML VIAL IV STA (01:46)
[2019-06-22] MEDS ORDERED: METOPROLOL TARTRATE 1 MG/ML VIAL IV ONE (01:47)
[2019-06-22] MEDS ORDERED: METOPROLOL TARTRATE 1 MG/ML VIAL IV PRN (01:59)
[2019-06-22 04:47] LABS: Basophils # (auto) 0.03 K/uL (0-0.2); Basophils % (auto) 0.2 %; Eosinophils # (auto) 0.74 K/uL (0-0.5); Hematocrit (blood only) 25.5 % (37-47); Hemoglobin 7.9 g/dL (12.0-16.0); Immature Granulocytes # (auto) 0.14 K/uL (0.00-0.02); Immature Granulocytes % (auto) 1.1 %; Lymphocytes # (auto) 1.14 K/uL (1.2-3.4); Lymphocytes % (auto) 9.3 %; Mean Corpuscular Volume 80.7 fL (80-100); Mean Platelet Volume 9.3 fL (7.4-10.4); Monocytes # (auto) 1.12 K/uL (0.11-0.59); Monocytes % (auto) 9.2 %; Neutrophils # (auto) 9.07 K/uL (1.4-6.5); Neutrophils % (auto) 74.2 %; Nucleated RBC # (auto) 0.03 K/uL (0-0); Nucleated RBC % (auto) 0.3 %; Platelet Count 460 K/uL (130-400); RDW Coefficient of Variation 19.6 % (11.5-14.5); Red Blood Count 3.16 M/uL (4.2-5.4); White Blood Count 12.24 K/uL (4.8-10.8)
[2019-06-22 05:03] LABS: BUN Creatinine Ratio 10.9 (10-20); Calcium 7.6 mg/dl (8.5-10.1); Creatinine Clr Calc Pharmacy 52.8 ml/min; Est GFR (Non-African American) 72.5; Potassium 3.9 mmol/L (3.5-5.1)
[2019-06-22 05:08] LABS: Partial Thromboplastin Ratio 1.7
[2019-06-22 05:18] LABS: Anisocytosis Present; Hypochromasia Present; Polychromasia 1+
[2019-06-22 05:20] LABS: Partial Thromboplastin Time 45.6 Seconds (21.0-31.0)
[2019-06-22] MEDS ORDERED: VANCOMYCIN TROUGH ONE (05:30)
[2019-06-22] MEDS ORDERED: HEPARIN IV BOLUS 2,000 UNITS in SYRINGE 0 ML IV ONE (06:00)
[2019-06-22] MEDS: HEPARIN SODIUM/DEXTROSE 25,000 UNITS/500 ML BAG IV SCH (06:14)
[2019-06-22] MEDS: AMIODARONE / D5W 360 MG/200 ML BAG IV SCH (06:14)
[2019-06-22] MEDS: VANCOMYCIN HCL 750 MG in SODIUM CHLORIDE 0.9% 250 ML IV SCH (06:33)
--- NOTE | 2019-06-22 07:12 | XRay Report ---
XR chest 1V portable HISTORY: Renal failure. Shortness of breath. COMPARISON: Chest 06/21/2019. FINDINGS: No pneumothorax. No change in the pulmonary edema and small bilateral pleural effusions. Bi basilar densities persist. The heart remains mildly enlarged. Right PICC terminates at the distal SVC . IMPRESSION: No change in the pulmonary edema and small bilateral pleural effusions. ACT 112: Negative or not required by law. Electronically signed by: Jez Mckay M.D. 06/22/2019 7:11 AM
[2019-06-22] MEDS ORDERED: FUROSEMIDE 40 MG in SYRINGE 0 ML IV ONE (07:30)
[2019-06-22] MEDS: LACTOBACILLUS ACIDOPHILUS (FLORANEX) TAB PO SCH (07:42)
[2019-06-22] MEDS: predniSONE 5 MG TAB PO SCH (07:42)
[2019-06-22] MEDS: AMIODARONE 200 MG TAB PO SCH ×2 (07:42→17:05)
[2019-06-22] MEDS: OXYBUTYNIN CHLORIDE 5 MG TAB PO SCH ×2 (07:43→21:04)
[2019-06-22] MEDS: GABAPENTIN 100 MG CAP PO SCH ×3 (07:43→21:04)
[2019-06-22] MEDS: ACYCLOVIR 400 MG TAB PO SCH ×3 (07:43→21:05)
[2019-06-22] MEDS: BENZONATATE 100 MG CAPSULE PO PRN (07:58)
[2019-06-22] MEDS ORDERED: LOPERAMIDE HCL 2 MG CAP PO STA (07:58)
[2019-06-22] MEDS: NYSTATIN 30 ML, DEXAMETHASONE CONC 3.75 MG, DiphenhydrAMINE Syrup 300 MG, ORA-SWEET SYR... PO SCH ×5 (07:59→21:07)
[2019-06-22 08:19] LABS: Magnesium 2.2 mg/dl (1.8-2.4); Phosphorus 3.5 mg/dl (2.5-4.9); Troponin I 0.158 ng/ml (0-0.045)
[2019-06-22] MEDS ORDERED: ENOXAPARIN INJ 40 MG/0.4 ML SYR SQ SCH (09:00)
--- NOTE | 2019-06-22 09:38 | Medical Student Progress Note ---
Date of Service June 22, 2019 Assessment & Plan (1) Shortness of breath: Patient is a 68-year-old female s/p R knee prosthesis explant with concurrent E.faecalis infection with resolving acute respiratory failure secondary to fluid overload from pleural effusion in setting of atrial fibr illation. Acute respiratory failure secondary to fluid overload with worsening b/l Pleural Effusion in setting of Tachyarrhythmia - Stopped BiPAP, on nasal cannula and titrating O2 as tolerated Acute diastolic CHF - CXR 06/22 No change in pulmonary edema and small bilateral pleural effusion - Suspect transudative pleural effusion - continue to diuresis with 40mg IV furosemide, given one dosage AM and will hold on afternoon dose until reassessment. - Kidney function stable - Cr 0.82 today - Afib management as below Chest Pain/a fib - On admission, patient was having chest pain and some palpitations which had resolved with suspicion of chest pain with of MSK etiology - Echo 06/2019 shows pEF with no wall motion abnormalities, no evidence of heart failure. - Runs of tachycardia, afib overnight which resolved with IV metoprolol. - Continue 100 mg BID Amiodarone - Started metoprolol tartrate 12.5mg PO BID. Titrate as needed, hold for SBP<100. - Will need retirement full anticoagulation. Will discuss further. will likely start DOAC therapy. 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 - PICC present on R upper arm - Anticipate d/c to complete ~6 weeks dapto through R PICC line. Sepsis/Pneumonia - ruled out. Anemia - Hgb 7.9 (previous 8.4), Hct 25.5 (previous 27.4) - Pt still feeling fatigue, get TSH - Continue to monitor - Transfusion threshold 7.0 g/dL - No signs of acute bleeding - Add iron polysaccharide PO daily Hypokalemic/Hypophosphatemia: - Potassium 3.9, Phosphate 3.5 - replete as needed, trend daily BMP Diarrhea, antibiotic induced: - Improving, no blood in stool, with mucous, or completely liquid - C diff testing was negative - Continue probiotic and cholestyramine. RA - Continue prednisone 5mg daily qam, 1mg qPM Code: Full Dispo: Telemetry DVTP: Lovenox FEN/GI: regular (2) Pleural effusion: (3) Sinus tachycardia: (4) Infection of knee: (5) Diarrhea: (6) RA (rheumatoid arthritis): (7) Poor appetite: (8) Oral mucosal lesion: Supervising Attestation Medical student Supervision Note: I independently interviewed and examined the patient and verified the chapman history and physical, reviewed labs and image studies, discussed the case with Abhi Méndez and agree with the findings and care plan. Subjective Overnight, pt was tachycardic and had an EKG showing atrial fibrillation. This morning, she is feeling tired, but is better than yesterday, her agrees. She feels her breathign has improved, and she is not short of breath at rest, but she quickly becomes short of breath with exertion. Feels her breathign is similar to 2 days ago. No chest pain today. She was eating a yogurt this morning - no abdominal pain, +N/-V, no bloating. Has had some loose bowel movements, not completely liquid. Mouth lesions continue to be painful, slightly improved from prior. Review of Systems Constitutional: + fatigue; no fever Ear, Nose, Mouth, Throat: + mouth lesions Respiratory: + cough and + dyspnea; no hemoptysis, no pain with cough and no sputum production Cardiovascular: no chest pain, no palpitations and no edema Gastrointestinal: + diarrhea/loose stools; no abdominal pain, no bloating, no nausea and no vomiting Integumentary: Hematologic / Lymphatic: + easy bruising Physical Exam Constitutional: + frail appearing and cooperative; no acute distress Eyes: PERRL, conjunctivae normal, anicteric sclerae ENMT: external ear and nose normal, oropharynx normal Mouth: + oral mucosal abnormality (White ulcerations on tongue and inside of lower lips ) Neck: normal visual inspection Respiratory: + cough (nonproductive); no respiratory distress and no labored breathing Auscultation: + crackles (R>L) Cardiovascular: Rate/Rhythm: regular rate and regular rhythm Heart Sounds: normal S1 and normal S2; no gallop, no murmur and no cardiac rub Vessels: + JVD (1cm above clavicle) Extremities: no edema Gastrointestinal (Abdomen): normal bowel sounds, soft, nontender, no hepatosplenomegaly Musculoskeletal: Head/Neck/Chest: normocephalic and head atraumatic Skin: no rashes, warm and dry (bruising on dorsal L hand consistent with prior IV placement) Neurologic: moves all extremities Psychiatric: A+Ox3, euthymic affect Orientation: oriented x 3 Results & Data Vital Signs (Past 12 Hours) Vital Signs Temp Pulse Pulse Pulse Resp BP BP 06/22/19 08:00 36.8 C 88 22 110/62 06/22/19 04:08 36.5 C 86 21 106/65 06/22/19 02:30 151 H 101/58 L 06/22/19 01:59 119/57 L 06/22/19 01:49 172 H 06/21/19 23:45 102 H 06/21/19 23:25 36.9 C 103 H 20 126/65 06/21/19 23:09 99 H 20 Pulse Ox 06/22/19 08:00 98 06/22/19 04:08 100 06/22/19 02:30 06/22/19 01:59 06/22/19 01:49 06/21/19 23:45 06/21/19 23:25 99 06/21/19 23:09 98 Medications Administered Current Inpatient Medications Acetaminophen (Tylenol) 650 mg PO Q4H PRN PRN Reason: Pain or Fever Stop: 07/17/19 03:45 Last Admin: 06/22/19 00:29 Dose: 650 mg Documented by: Acyclovir (Zovirax) 400 mg PO TID [facility] Stop: 06/30/19 13:59 Last Admin: 06/22/19 07:43 Dose: 400 mg Documented by: Amiodarone HCl (Cordarone) 100 mg PO BIDM [facility] Stop: 07/22/19 07:59 Last Admin: 06/22/19 07:42 Dose: 100 mg Documented by: Benzonatate (Tessalon Perle) 100 mg PO TID PRN PRN Reason: Cough Stop: 07/20/19 22:38 Last Admin: 06/22/19 07:58 Dose: 100 mg Documented by: Cholestyramine Resin (Questran) 4 gm PO BID@1000,2200 [facility] Stop: 07/19/19 09:59 Last Admin: 06/22/19 11:25 Dose: 4 gm Documented by: Nystatin 30 ml/ Dexamethasone 3.75 mg/ Diphenhydramine HCl 300 mg/ Sucrose 45 ml/Microcrystalline Cellulose 45 ml/ BARCODE IDENTIFIER 1 ea 0 ml PO QID [facility] Stop: 07/20/19 12:59 Enoxaparin Sodium (Lovenox) 40 mg SQ QAM [facility] Stop: 07/22/19 08:59 Last Admin: 06/22/19 10:26 Dose: 40 mg Documented by: Gabapentin (Neurontin) 100 mg PO TID [facility] Stop: 07/17/19 08:59 Last Admin: 06/22/19 07:43 Dose: 100 mg Documented by: Heparin Sodium (Beef Lung) (Heparin Sod 10 Unit/Ml Flush) 5 ml FLUSH PRN PRN PRN Reason: Flush Stop: 07/21/19 00:45 Piperacillin Sod/Tazobactam (Sod 3.375 gm/ Dextrose) 115 mls @ 28.75 mls/hr IV Q8H [facility]; Protocol Stop: 06/23/19 07:59 Last Admin: 06/22/19 07:45 Dose: 28.8 mls/hr Documented by: Daptomycin 360 mg/ Syringe 7.2 mls @ 2 mls/min IV DAILY [facility]; Protocol Stop: 08/03/19 10:59 Last Admin: 06/22/19 11:41 Dose: 2 mls/min Documented by: Ioversol (Optiray 320 125ml) 120 ml IV ONCE PRN PRN Reason: Interaction Checking Stop: 06/25/19 10:44 Last Admin: 06/21/19 10:46 Dose: 120 ml Documented by: Lactobacillus Acidophilus (Floranex) 4 tab PO QAM [facility] Stop: 07/17/19 08:59 Last Admin: 06/22/19 07:42 Dose: 4 tab Documented by: Lidocaine HCl (Viscous Lidocaine 2%) 15 ml PO Q4H PRN PRN Reason: pain Stop: 07/22/19 10:59 Loperamide HCl (Imodium) 2 mg PO TID PRN PRN Reason: Diarrhea Stop: 07/22/19 00:17 Last Admin: 06/22/19 08:03 Dose: 2 mg Documented by: Metoprolol Tartrate (Lopressor) 5 mg IV Q30M PRN PRN Reason: Tachycardia >130 Stop: 07/22/19 01:58 Last Admin: 06/22/19 02:30 Dose: 5 mg Documented by: Metoprolol Tartrate (Lopressor) 12.5 mg PO BID [facility] Stop: 07/22/19 08:59 Last Admin: 06/22/19 10:26 Dose: 12.5 mg Documented by: Miscellaneous Information (Consult) 1 ea N/A UD PRN PRN Reason: Consult Stop: 07/21/19 01:59 Morphine Sulfate (Morphine Sulfate) 0.5 mg IV Q8H PRN PRN Reason: Severe Pain Stop: 07/02/19 17:09 Last Admin: 06/20/19 21:16 Dose: 0.5 mg Documented by: Oxybutynin Chloride (Ditropan) 5 mg PO BID [facility] Stop: 07/17/19 08:59 Last Admin: 06/22/19 07:43 Dose: 5 mg Documented by: Oxycodone HCl (Roxicodone Immediate Rel) 5 mg PO Q6H PRN PRN Reason: Pain Stop: 07/01/19 00:14 Last Admin: 06/20/19 20:29 Dose: 5 mg Documented by: Pantoprazole Sodium (Protonix) 40 mg PO QAM [facility] Stop: 07/17/19 08:59 Last Admin: 06/21/19 10:56 Dose: Not Given Documented by: Prednisone (Prednisone) 5 mg PO QAM [facility] Stop: 07/17/19 08:59 Last Admin: 06/22/19 07:42 Dose: 5 mg Documented by: Prednisone (Prednisone) 1 mg PO PM [facility] Stop: 07/17/19 20:59 Last Admin: 06/21/19 19:54 Dose: Not Given Documented by:
--- NOTE | 2019-06-22 09:54 | Cardiology Progress Note ---
Date of Service June 22, 2019 Assessment & Plan (1) PAF (paroxysmal atrial fibrillation): The patient demonstrated a prolonged episode of atrial fibrillation with a rapid ventricular response. She has converted to sinus rhythm under the influence of amiodarone and intravenous metoprolol. Agree with addition of low- dose metoprolol tartrate. Continue amiodarone at 200 mg twice daily. Currently, patient seems to high risk for long-term anticoagulation. (2) Paroxysmal SVT (supraventricular tachycardia): As above, continue amiodarone and metoprolol. (3) Sinus tachycardia: The patient continues to demonstrate sinus tachycardia with frequent PACs. Etiology is multifactorial. Subjective Resting comfortably in bed without complaints of chest pain, dyspnea, palpitations. Physical Exam Physical Exam: In general this is a well-developed well-nourished white female in no acute distress. HEENT exam is negative. Neck is supple with full carotid upstrokes. There are no carotid bruits. Jugular venous pressure is flat at 90. There is no thyromegaly. Cardiovascular exam reveals a regular rhythm with a normal S1 and S2. Heart sounds are distant. No obvious murmurs. Lungs are clear without rales, rhonchi, or wheezes. Abdomen is soft and nontender without bruits. Extremities reveal intact radial artery pulses bilaterally. There is no peripheral edema. Right knee is dressed. Results & Data Vital Signs (Past 12 Hours) Vital Signs Temp Pulse Pulse Pulse Resp BP BP 06/22/19 08:00 36.8 C 88 22 110/62 06/22/19 04:08 36.5 C 86 21 106/65 06/22/19 02:30 151 H 101/58 L 06/22/19 01:59 119/57 L 06/22/19 01:49 172 H 06/21/19 23:45 102 H 06/21/19 23:25 36.9 C 103 H 20 126/65 06/21/19 23:09 99 H 20 Pulse Ox 06/22/19 08:00 98 06/22/19 04:08 100 06/22/19 02:30 06/22/19 01:59 06/22/19 01:49 06/21/19 23:45 06/21/19 23:25 99 06/21/19 23:[address] recording monitor noted a prolonged episode of atrial fibrillation. Currently in sinus with PACs. PG Care Time/CCT Total # of Minutes Spent Total Time Spent with Patient: Total time spent is greater than 50% in coordination of care (as documented) at patient's floor/unit and/or counseling patient:
[2019-06-22] MEDS: METOPROLOL TARTRATE 25 MG TAB PO SCH ×2 (10:26→21:05)
--- NOTE | 2019-06-22 10:35 | Infectious Disease Progress Nt ---
Date of Service June 22, 2019 Assessment & Plan (1) Infection of total right knee replacement: Will change to dapto while inpatient and monitor response. if any worsening sob will need vanco. and patient in agreement. can resume weekly cmc, cmp, esr, cpk upon d/c. will need to resume previously rx 6 week therapy. Subjective pt found to have afib with rvr. at bedside. received call from primary service that family would like to resume dapto due to ease of once daily dosing at home. this was stopped earlier this admission due to concern for developing sob. sob felt to be due to afib due to primary service. discussed with patient and family - they would like to resume Dapto, states she had been on dapto in past and tolerated well. she currently denies any sob, cough, cp, n/v/d/abd pain. no f/c. no knee pain. Review of Systems Review of Systems: All systems reviewed & are unremarkable except as noted in HPI & below Physical Exam Constitutional: WD/WN, vitals as above Eyes: PERRL, conjunctivae normal, anicteric sclerae ENMT: external ear and nose normal, oropharynx normal Neck: normal visual inspection Respiratory: normal respiratory effort, lungs clear to auscultation Cardiovascular: RRR, no murmur, no edema Gastrointestinal (Abdomen): normal bowel sounds, soft, nontender, no hepatosplenomegaly Musculoskeletal: no cyanosis or clubbing, extremities motor strength 5/5 Skin: no rashes, warm and dry Psychiatric: A+Ox3, euthymic affect Results & Data Vital Signs (Past 12 Hours) Vital Signs Temp Pulse Pulse Pulse Resp BP BP 06/22/19 08:00 36.8 C 81 88 22 110/62 06/22/19 04:08 36.5 C 86 21 106/65 06/22/19 02:30 151 H 101/58 L 06/22/19 01:59 119/57 L 06/22/19 01:49 172 H 06/21/19 23:45 102 H 06/21/19 23:25 36.9 C 103 H 20 126/65 06/21/19 23:09 99 H 20 Pulse Ox 06/22/19 08:00 98 06/22/19 04:08 100 06/22/19 02:30 06/22/19 01:59 06/22/19 01:49 06/21/19 23:45 06/21/19 23:25 99 06/21/19 23:09 98 Laboratory Results Microbiology 06/16/19 14:50 Blood Aerobic Blood Culture - Final No growth in Aerobic bottle after 5 days. 06/16/19 14:50 Blood Anaerobic Blood Culture - Final 06/21/19 02:08 Blood Aerobic Blood Culture - Preliminary No growth in Aerobic bottle after 24 hours. 06/21/19 02:08 Blood Anaerobic Blood Culture - Preliminary No growth in Anaerobic bottle after 24 hours. 06/21/19 02:11 Blood Aerobic Blood Culture - Preliminary No growth in Aerobic bottle after 24 hours. 06/21/19 02:11 Blood Anaerobic Blood Culture - Preliminary No growth in Anaerobic bottle after 24 hours. 06/16/19 14:39 Blood Aerobic Blood Culture - Final No growth in Aerobic bottle after 5 days. 06/16/19 14:39 Blood Anaerobic Blood Culture - Final No growth in Anaerobic bottle after 5 days. 06/17/19 16:46 Urine,Clean Catch Urine Culture - Final No growth - less than 1,000 colonies/mL. PG Care Time/CCT Total # of Minutes Spent Total Time Spent with Patient: Total time spent is greater than 50% in coordination of care (as documented) at patient's floor/unit and/or counseling patient:
[2019-06-22] MEDS ORDERED: LIDOCAINE HCL VISCOUS SOLN 2% 15 ML UDC MT PRN (11:00)
[2019-06-22] MEDS: CHOLESTYRAMINE LIGHT 4 GM PKT PO SCH ×2 (11:25→23:08)
[2019-06-22] MEDS: DAPTOmycin 360 MG in SYRINGE 0 ML IV SCH (11:41)
[2019-06-22] MEDS ORDERED: LIDOCAINE HCL VISCOUS SOLN 2% 15 ML UDC PO PRN (11:45)
[2019-06-22] MEDS ORDERED: ALTEPLASE, RECOMBINANT 1 MG/ML 2ML VIAL IV ONE (11:57)
[2019-06-22] MEDS ORDERED: ONDANSETRON INJ 2 MG/ML 2 ML VIAL ONE (12:09)
[2019-06-22] MEDS ORDERED: ONDANSETRON INJ 2 MG/ML 2 ML VIAL IV PRN (12:12)
[2019-06-22] MEDS ORDERED: FUROSEMIDE 20 MG in SYRINGE 0 ML IV ONE (13:45)
[2019-06-22] MEDS: LIDOCAINE HCL VISCOUS SOLN 2% 15 ML UDC MT PRN (17:04)
[2019-06-22] MEDS: LACTOBACILLUS ACIDOPHILUS 1 GM PACK PO SCH (17:07)
[2019-06-22] MEDS: predniSONE 1 MG TAB PO SCH (21:05)
[2019-06-22] MEDS: POTASSIUM CHLORIDE 10 MEQ TABCR PO SCH (21:05)
[2019-06-22] MEDS: APIXABAN 5 MG TABLET PO SCH (21:26)
[2019-06-23] MEDS: ACETAMINOPHEN 325 MG TAB PO PRN (03:58)
[2019-06-23 07:30] LABS: Basophils # (auto) 0.03 K/uL (0-0.2); Basophils % (auto) 0.2 %; Eosinophils # (auto) 0.41 K/uL (0-0.5); Eosinophils % (auto) 2.4 %; Hematocrit (blood only) 23.4 % (37-47); Hemoglobin 7.2 g/dL (12.0-16.0); Immature Granulocytes # (auto) 0.12 K/uL (0.00-0.02); Immature Granulocytes % (auto) 0.7 %; Lymphocytes # (auto) 0.92 K/uL (1.2-3.4); Lymphocytes % (auto) 5.4 %; Mean Corpuscular Hemoglobin 24.7 pg (25-34); Mean Corpuscular Hgb Conc 30.8 g/dL (32-36); Mean Corpuscular Volume 80.4 fL (80-100); Mean Platelet Volume 8.9 fL (7.4-10.4); Monocytes # (auto) 1.15 K/uL (0.11-0.59); Monocytes % (auto) 6.7 %; Neutrophils # (auto) 14.49 K/uL (1.4-6.5); Neutrophils % (auto) 84.6 %; Platelet Count 429 K/uL (130-400); RDW Coefficient of Variation 19.3 % (11.5-14.5); RDW Standard Deviation 57.7 fL (36.4-46.3); Red Blood Count 2.91 M/uL (4.2-5.4); White Blood Count 17.12 K/uL (4.8-10.8)
[2019-06-23 07:59] LABS: BUN Creatinine Ratio 13.1 (10-20); Calcium 7.8 mg/dl (8.5-10.1); Creatinine Clr Calc Pharmacy 58.5 ml/min; Est GFR (African American) 95.1; Est GFR (Non-African American) 82.1; Potassium 3.9 mmol/L (3.5-5.1)
[2019-06-23 08:18] LABS: Hypochromasia Present; Polychromasia 1+
[2019-06-23] MEDS: DAPTOmycin 360 MG in SYRINGE 0 ML IV SCH (08:20)
[2019-06-23] MEDS: GABAPENTIN 100 MG CAP PO SCH ×3 (08:21→20:08)
[2019-06-23] MEDS: AMIODARONE 200 MG TAB PO SCH ×2 (08:22→16:40)
[2019-06-23] MEDS: POTASSIUM CHLORIDE 10 MEQ TABCR PO SCH ×2 (08:23→20:07)
[2019-06-23] MEDS: METOPROLOL TARTRATE 25 MG TAB PO SCH ×2 (08:23→20:07)
[2019-06-23] MEDS: IRON POLYSACCHARIDE COMPLEX 150 MG CAPSULE PO SCH (08:23)
[2019-06-23] MEDS: APIXABAN 5 MG TABLET PO SCH ×2 (08:23→20:06)
[2019-06-23] MEDS: OXYBUTYNIN CHLORIDE 5 MG TAB PO SCH ×2 (08:23→20:06)
[2019-06-23] MEDS: predniSONE 5 MG TAB PO SCH (08:24)
[2019-06-23] MEDS: ACYCLOVIR 400 MG TAB PO SCH ×3 (08:24→20:10)
[2019-06-23] MEDS ORDERED: FUROSEMIDE 40 MG in SYRINGE 0 ML IV ONE ×2 (08:30→12:30)
[2019-06-23] MEDS: NYSTATIN 30 ML, DEXAMETHASONE CONC 3.75 MG, DiphenhydrAMINE Syrup 300 MG, ORA-SWEET SYR... PO SCH ×4 (08:32→20:11)
[2019-06-23] MEDS: BENZONATATE 100 MG CAPSULE PO PRN (08:36)
[2019-06-23] MEDS: LACTOBACILLUS ACIDOPHILUS (FLORANEX) TAB PO SCH (08:45)
[2019-06-23] MEDS: LACTOBACILLUS ACIDOPHILUS 1 GM PACK PO SCH ×3 (08:46→16:42)
--- NOTE | 2019-06-23 09:17 | Medical Student Progress Note ---
Date of Service June 23, 2019 Assessment & Plan (1) Shortness of breath: Patient is a 68-year-old female s/p R knee prosthesis explant with concurrent E.faecalis infection with resolving acute respiratory failure secondary to fluid overload from pleural effusion in setting of atrial fibr illation. Acute respiratory failure secondary to fluid overload with worsening b/l Pleural Effusion in setting of Tachyarrhythmia - Continues to be on nasal cannula and titrating O2 as tolerated Acute diastolic CHF sec to a fib rvr Bilateral pleural effusion secondary to CHF - continue to diuresis with 40mg IV furosemide BID, may transition to oral tomorrow. Plan to remove babin with transition to PO lasix. - 24hr I: 725, O: 2950cc, Cumulative +~4L sinc admit - Continue to monitor - Kidney function stable - Cr 0.74 today - Afib management as below Chest Pain/a fib - On admission, patient was having chest pain and some palpitations - resolved with suspicion of chest pain with of MSK etiology - Troponin elevation likely demand ischemia. - Echo 06/2019 shows pEF with no wall motion abnormalities, no evidence of heart failure. - Continue 100 mg BID Amiodarone - Continue metoprolol tartrate 12.5mg PO BID. Titrate as needed, hold for SBP<100. - Started on apixiban 5mg BID for chronic anticoagulation. - currently in sinus rhythm Poor Appetite, decreased PO intake 2/2 oral ulcerations - Patient has resumed eating and notes ulcers as continual barrier to eating - 2% lidocaine to mouth rinse for topical pain relief of ulcers - Acyclovir 400mg TID for empiric treatment of potential herpes stomatitis, reports improvement. Tx total 5 day course. 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 - PICC present on R upper arm - Anticipate d/c to complete ~6 weeks dapto through R PICC line. - On apixaban for afib, OK to d/c on apixaban instead of lovenox per Ortho Sepsis/Pneumonia - ruled out. - Leukocytosis with WBC 17.1 today. - Clinically has improving oxygen requirements, appears improved overall, and is not having fever/chills/rigors. Low suspicion for infectious cause of her leukocytosis, follow clinically at thie time. - Continue to monitor Anemia - Hgb 7.2 (previous 7.9), Hct 3.4 (previous 25.5) - Pt does not report fatigue today - Continue to monitor - Transfusion threshold 7.0 g/dL - No signs of acute bleeding - Iron polysaccharide PO daily Hypokalemic/Hypophosphatemia/Hypocalcemia - Potassium 3.9, Phosphate 3.5, Ionized calcium 1.07 - Added calcium carbonate 1,250mg BID - replete as needed, trend daily BMP Diarrhea, antibiotic induced: - Improving, no blood in stool, with mucous, or completely liquid - C diff testing was negative - Continue probiotic and cholestyramine. 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 Subjective No overnight event. Pt reports sleeping well through the night and feel well- rested. She still has a non-productive cough, but no chest pain or palpitations. No shortness of breath and is on 3L of O2. She was eating yogurt this morning - no nausea, vomiting, abdominal pain, or bloating. Mouth ulcers are same as before. She hasn't used the bathroom since Thursday, but doesn't feel constipated, was previously having diarrhea. Review of Systems Constitutional: + fatigue (better than previous days); no fever Ear, Nose, Mouth, Throat: + mouth lesions Respiratory: + cough; no dyspnea, no hemoptysis, no pain with cough and no sputum production Gastrointestinal: no abdominal pain, no bloating, no nausea, no vomiting, no constipation and no diarrhea/loose stools Integumentary: Hematologic / Lymphatic: + easy bruising Physical Exam Constitutional: cooperative and comfortable; no acute distress Eyes: PERRL, conjunctivae normal, anicteric sclerae ENMT: external ear and nose normal, oropharynx normal Mouth: + oral mucosal abnormality (White ulcerations on tongue and inside of lower lips ) Neck: normal visual inspection Respiratory: + cough (nonproductive); no respiratory distress and no labored breathing Auscultation: + crackles (bilateral lower lobes with deep inspiration, not heard at rest) Cardiovascular: RRR, no murmur, no edema Rate/Rhythm: regular rate and regular rhythm Heart Sounds: normal S1 and normal S2; no gallop, no murmur and no cardiac rub Vessels: + JVD (1cm above clavicle) Extremities: no edema Gastrointestinal (Abdomen): normal bowel sounds, soft, nontender, no hepatosplenomegaly Musculoskeletal: Head/Neck/Chest: normocephalic and head atraumatic Skin: no rashes, warm and dry (bruising on dorsal L hand consistent with prior IV placement) Neurologic: moves all extremities Psychiatric: A+Ox3, euthymic affect Orientation: oriented x 3 Genitourinary: Babin in place draining clear light yellow urine Results & Data Vital Signs (Past 12 Hours) Vital Signs Temp Pulse Pulse Resp BP Pulse Ox 06/23/19 07:56 36.8 C 72 18 120/63 98 06/23/19 07:30 88 06/23/19 05:00 37.5 C 06/23/19 04:03 38.3 C H 105 H 16 121/67 90 06/22/19 23:32 38.8 C H 95 H 16 139/70 93 06/22/19 23:28 95 H
--- NOTE | 2019-06-23 10:59 | Cardiology Progress Note ---
Date of Service June 23, 2019 Assessment & Plan (1) PAF (paroxysmal atrial fibrillation): The patient remains in sinus rhythm on in amiodarone and metoprolol tartrate. Typical amiodarone dose would be 200 mg b.i.d.. (2) Paroxysmal SVT (supraventricular tachycardia): As above, continue amiodarone and metoprolol. (3) Sinus tachycardia: The patient now demonstrates a sinus rhythm. This likely reflects the fact that she is improving clinically. Subjective The patient is resting comfortably in bed eating her breakfast. Denies chest pain, dyspnea, and palpitations. Physical Exam Physical Exam: In general this is a well-developed well-nourished white female in no acute distress. HEENT exam is negative. Neck is supple with full carotid upstrokes. There are no carotid bruits. Jugular venous pressure is flat at 90. There is no thyromegaly. Cardiovascular exam reveals a regular rhythm with a normal S1 and S2. Heart sounds are distant. No obvious murmurs. Lungs are clear without rales, rhonchi, or wheezes. Abdomen is soft and nontender wit hout bruits. Extremities reveal intact radial artery pulses bilaterally. There is no peripheral edema. Right knee is dressed. Results & Data Vital Signs (Past 12 Hours) Vital Signs Temp Pulse Pulse Resp BP Pulse Ox 06/23/19 07:56 36.8 C 72 18 120/63 98 06/23/19 07:30 88 06/23/19 05:00 37.5 C 06/23/19 04:03 38.3 C H 105 H 16 121/67 90 06/22/19 23:32 38.8 C H 95 H 16 139/70 93 06/22/19 23:28 95 H Diagnostic Findings Telemetry monitored notes sinus rhythm and sinus tachycardia. There are frequent PACs. No atrial fibrillation. PG Care Time/CCT Total # of Minutes Spent Total Time Spent with Patient: Total time spent is greater than 50% in coordination of care (as documented) at patient's floor/unit and/or counseling patient:
[2019-06-23] MEDS: CHOLESTYRAMINE LIGHT 4 GM PKT PO SCH ×2 (11:19→23:37)
[2019-06-23] MEDS: LIDOCAINE HCL VISCOUS SOLN 2% 15 ML UDC MT PRN (11:51)
[2019-06-23] MEDS ORDERED: Nursing to Pharmacy Communication ONE (12:01)
--- NOTE | 2019-06-23 16:06 | Orthopedic Progress Note ---
Date of Service June 23, 2019 Assessment & Plan (1) Infection of total right knee replacement: Status post explant right total knee arthroplasty, I&D and placement of antibiotic cement spacer Postop day 16 -currently on Daptomycin, IV abx per ID/medicine -IO cultures + enterococcus -Partial WB RLE -Maintain knee immobilizer at all times, may remove for dressing change and hygiene purposes. -Will obtain 2 week PO XR - pending -PT/OT when medically stable -am labs - hgb 7.2, hemodynamically stable, defer to medical team for transfusion as needed -We would like to see the patient in 1 week after discharge Subjective Post Operative Progress Note Patient seen sitting up in bed, comfortable, denies complaints, pain well controlled, no acute issues. Denies F/C/N/V/CP/SOB. Review of Systems Review of Systems: All systems reviewed & are unremarkable except as noted in HPI & below Constitutional: as per Subjective / HPI Physical Exam Physical Exam: RLE NVSI +EHL/FHL/TA/GS SILT grossly, +2 DP pulse, compartments soft NT, incision cdi. Constitutional: WD/WN, vitals as above Results & Data Vital Signs (Past 12 Hours) Vital Signs Temp Pulse Pulse Resp BP Pulse Ox 06/23/19 16:01 37.1 C 96 H 22 145/68 H 98 06/23/19 14:47 96 H 06/23/19 12:04 36.5 C 86 16 115/63 98 06/23/19 07:56 36.8 C 72 18 120/63 98 06/23/19 07:30 88 06/23/19 05:00 37.5 C
--- NOTE | 2019-06-23 18:13 | XRay Report ---
XR knee RT 1 or 2V routine CLINICAL HISTORY: 68 years-old Female presenting with post op 2 weeks, AP and lateral. TECHNIQUE: Frontal and crosstable lateral views of the right knee were obtained. COMPARISON: 06/07/2019. FINDINGS: Redemonstration of likely antibiotic impregnated spacer at the distal femur and tibial plateau. Overl tomasz soft tissue swelling and skin jorge noted. Underlying osteopenia suspected. No malalignment at the knee joint. Allowing for postsurgical change and osteopenia, no gross evidence of fracture. No g ross evidence of osseous erosion. Extensive atherosclerosis. IMPRESSION: 1. No significant change from prior exam. Postop changes as on prior. 2. Significant osteopenia. 3. No acute osseous injury. ACT 112: Negative or not required by law. Electronically signed by: Lorenzo Combs M.D. 06/23/2019 6:11 PM
[2019-06-23] MEDS: CALCIUM CARBONATE 1250MG TAB PO SCH (20:09)
[2019-06-23] MEDS: predniSONE 1 MG TAB PO SCH (20:10)
[2019-06-24 07:47] LABS: Basophils # (auto) 0.03 K/uL (0-0.2); Basophils % (auto) 0.2 %; Eosinophils # (auto) 0.34 K/uL (0-0.5); Eosinophils % (auto) 2.3 %; Hematocrit (blood only) 23.9 % (37-47); Hemoglobin 7.3 g/dL (12.0-16.0); Immature Granulocytes # (auto) 0.07 K/uL (0.00-0.02); Immature Granulocytes % (auto) 0.5 %; Lymphocytes # (auto) 1.06 K/uL (1.2-3.4); Lymphocytes % (auto) 7.1 %; Mean Corpuscular Hemoglobin 24.7 pg (25-34); Mean Corpuscular Hgb Conc 30.5 g/dL (32-36); Mean Corpuscular Volume 80.7 fL (80-100); Mean Platelet Volume 8.8 fL (7.4-10.4); Monocytes # (auto) 1.37 K/uL (0.11-0.59); Monocytes % (auto) 9.1 %; Neutrophils # (auto) 12.14 K/uL (1.4-6.5); Neutrophils % (auto) 80.8 %; Platelet Count 470 K/uL (130-400); RDW Coefficient of Variation 19.2 % (11.5-14.5); RDW Standard Deviation 57.9 fL (36.4-46.3); Red Blood Count 2.96 M/uL (4.2-5.4); White Blood Count 15.01 K/uL (4.8-10.8)
[2019-06-24 08:13] LABS: Hypochromasia Present
[2019-06-24] MEDS: LACTOBACILLUS ACIDOPHILUS (FLORANEX) TAB PO SCH (08:15)
[2019-06-24] MEDS: AMIODARONE 200 MG TAB PO SCH ×2 (08:16→17:01)
[2019-06-24] MEDS: LACTOBACILLUS ACIDOPHILUS 1 GM PACK PO SCH ×3 (08:17→17:00)
[2019-06-24] MEDS: DAPTOmycin 360 MG in SYRINGE 0 ML IV SCH (08:18)
[2019-06-24] MEDS: OXYBUTYNIN CHLORIDE 5 MG TAB PO SCH ×2 (08:18→20:47)
[2019-06-24] MEDS: APIXABAN 5 MG TABLET PO SCH ×2 (08:19→20:45)
[2019-06-24] MEDS: METOPROLOL TARTRATE 25 MG TAB PO SCH ×2 (08:19→20:47)
[2019-06-24] MEDS: POTASSIUM CHLORIDE 10 MEQ TABCR PO SCH ×2 (08:19→20:45)
[2019-06-24] MEDS: IRON POLYSACCHARIDE COMPLEX 150 MG CAPSULE PO SCH (08:20)
[2019-06-24] MEDS: CALCIUM CARBONATE 1250MG TAB PO SCH ×2 (08:20→20:46)
[2019-06-24] MEDS: GABAPENTIN 100 MG CAP PO SCH ×3 (08:20→20:47)
[2019-06-24] MEDS: ACYCLOVIR 400 MG TAB PO SCH ×3 (08:21→20:46)
[2019-06-24] MEDS: predniSONE 5 MG TAB PO SCH (08:21)
[2019-06-24] MEDS: NYSTATIN 30 ML, DEXAMETHASONE CONC 3.75 MG, DiphenhydrAMINE Syrup 300 MG, ORA-SWEET SYR... PO SCH ×4 (08:22→20:53)
[2019-06-24 08:30] LABS: BUN Creatinine Ratio 17.9 (10-20); Calcium 9.1 mg/dl (8.5-10.1); Creatinine Clr Calc Pharmacy 59.3 ml/min; Est GFR (African American) 96.7; Est GFR (Non-African American) 83.4; Potassium 4.1 mmol/L (3.5-5.1)
[2019-06-24] MEDS: CHOLESTYRAMINE LIGHT 4 GM PKT PO SCH ×2 (10:08→21:47)
[2019-06-24] MEDS ORDERED: FUROSEMIDE 40 MG in SYRINGE 0 ML IV ONE (10:30)
--- NOTE | 2019-06-24 11:07 | Medical Student Progress Note ---
Date of Service June 24, 2019 Assessment & Plan (1) Shortness of breath: Patient is a 68-year-old female s/p R knee prosthesis explant with concurrent E.faecalis infection with resolving acute respiratory failure secondary to fluid overload from pleural effusion in setting of atrial fibr illation. Acute respiratory failure secondary to fluid overload with worsening b/l Pleural Effusion in setting of Tachyarrhythmia - On nasal cannula and titrating O2 as tolerated Acute diastolic CHF Bilateral pleural effusion - continue to diuresis with 40mg IV furosemide, may transition to oral tomorrow. Plan to remove babin with transition to PO lasix. - 24hr I: 400, O: 2252cc, Cumulative +~2L since admit - Continue to monitor - Kidney function stable - Cr 0.73 today - Afib management as below Chest Pain/a fib Demand Ischemia - chest pain of MSK etiology - Echo 06/2019 shows pEF with no wall motion abnormalities, no evidence of heart failure. - per cardio, increased Amiodarone from 100mg BID to 200mg BID. Continue Amiodarone 200 mg BID for 1 month and then transition to 200mg once daily thereafter. - Continue metoprolol tartrate 12.5mg PO BID. Titrate as needed, hold for SBP<100. - Started on apixiban 5mg BID for chronic anticoagulation. - Troponin trended down Poor Appetite, decreased PO intake 2/2 oral ulcerations, improving - 2% lidocaine to mouth rinse for topical pain relief of ulcers - Patient has resumed eating (soft foods) and notes ulcers are improving. - Acyclovir 400mg TID for empiric treatment of potential herpes stomatitis, reports improvement. Tx total 6 day course. 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 - On apixaban for afib, should cover for DVT proph - Previous culture positive for E.faecalis - XR knee 06/23 No significant change from prior postop change, significant osteopenia, no acute osseous injury - Per case managment, pt will have home health Sepsis/Pneumonia - ruled out. - Leukocytosis improving WBC 15 from 17.1 - Clinically has improving oxygen requirements, appears improved overall, and is nto having fever/chills/rigors. Low suspicion for infectious cause of her leukocytosis, follow clinically at this time. - Continue to monitor Anemia - h/h stable - No signs of acute bleeding - Iron polysaccharide PO daily Hypocalcemia - Potassium 3.9, Phosphate 3.5, Ionized calcium 1.07 - Added calcium carbonate 1,250mg BID - replete as needed, trend daily BMP Diarrhea, antibiotic induced: - Improving, no blood in stool, with mucous, or completely liquid - C diff testing was negative - Continue probiotic and cholestyramine. 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 Subjective No overnight events. Pt feels well-rested, no fatigue. Nonproductive cough is improving and is triggered by deep inspiration. No palpitations or chest pain. She reports that mouth ulcers are improving, but still hasn't been able to eat solid foods yet. No nausea/vomiting, no abdominal pain, no bloating. She went to bathroom x2 this morning and continues to have diarrhea that is non-bloody and no mucous, it is turner in color. Pt is eager to go home. Review of Systems Constitutional: no fever and no fatigue Ear, Nose, Mouth, Throat: + mouth lesions (improving) Respiratory: + cough; no dyspnea, no hemoptysis, no pain with cough and no sputum production Cardiovascular: no chest pain, no dyspnea on exertion, no palpitations and no edema Gastrointestinal: no abdominal pain, no nausea and no vomiting Musculoskeletal: no myalgia and no muscle weakness Integumentary: Hematologic / Lymphatic: + easy bruising Physical Exam Constitutional: cooperative and comfortable (sitting up in bed, has color in cheeks); no acute distress Eyes: PERRL, conjunctivae normal, anicteric sclerae ENMT: external ear and nose normal, oropharynx normal Mouth: + oral mucosal abnormality (White ulcerations on tongue and inside of lower lips ) Neck: normal visual inspection Respiratory: + cough (nonproductive); no respiratory distress and no labored breathing Auscultation: + crackles (bilateral lower lobes with deep inspira tion, not heard at rest) Cardiovascular: RRR, no murmur, no edema Rate/Rhythm: regular rate and regular rhythm Heart Sounds: normal S1 and normal S2; no gallop, no murmur and no cardiac rub Vessels: no JVD Extremities: no edema Gastrointestinal (Abdomen): normal bowel sounds, soft, nontender, no hepatosplenomegaly Musculoskeletal: Head/Neck/Chest: normocephalic and head atraumatic Skin: no rashes, warm and dry (bruising on dorsal L hand consistent with prior IV placement) Neurologic: moves all extremities Psychiatric: A+Ox3, euthymic affect Orientation: oriented x 3 Results & Data Vital Signs (Past 12 Hours) Vital Signs Temp Pulse Resp BP Pulse Ox 06/24/19 06:54 37.0 C 89 16 118/53 L 91 06/24/19 03:25 37.4 C 81 16 129/73 92 06/23/19 23:12 37.5 C 84 16 130/65 92 Medications Administered Current Inpatient Medications Acetaminophen (Tylenol) 650 mg PO Q4H PRN PRN Reason: Pain or Fever Stop: 07/17/19 03:45 Last Admin: 06/23/19 03:58 Dose: 650 mg Documented by: Acyclovir (Zovirax) 400 mg PO TID [facility] Stop: 06/30/19 13:59 Last Admin: 06/24/19 08:21 Dose: 400 mg Documented by: Amiodarone HCl (Cordarone) 100 mg PO BIDM [facility] Stop: 07/22/19 07:59 Last Admin: 06/24/19 08:16 Dose: 100 mg Documented by: Apixaban (Eliquis) 5 mg PO BID [facility] Stop: 07/22/19 20:59 Last Admin: 06/24/19 08:19 Dose: 5 mg Documented by: Benzonatate (Tessalon Perle) 100 mg PO TID PRN PRN Reason: Cough Stop: 07/20/19 22:38 Last Admin: 06/23/19 08:36 Dose: 100 mg Documented by: Calcium Carbonate (Os-Dylan 500) 1,250 mg PO BID [facility] Stop: 07/23/19 20:59 Last Admin: 06/24/19 08:20 Dose: 1,250 mg Documented by: Cholestyramine Resin (Questran) 4 gm PO BID@1000,2200 [facility] Stop: 07/19/19 09:59 Last Admin: 06/24/19 10:08 Dose: 4 gm Documented by: Nystatin 30 ml/ Dexamethasone 3.75 mg/ Diphenhydramine HCl 300 mg/ Sucrose 45 ml/Microcrystalline Cellulose 45 ml/ BARCODE IDENTIFIER 1 ea 0 ml PO QID [facility] Stop: 07/20/19 12:59 Last Admin: 06/24/19 08:22 Dose: 10 ml Documented by: Gabapentin (Neurontin) 100 mg PO TID [facility] Stop: 07/17/19 08:59 Last Admin: 06/24/19 08:20 Dose: 100 mg Documented by: Heparin Sodium (Beef Lung) (Heparin Sod 10 Unit/Ml Flush) 5 ml FLUSH PRN PRN PRN Reason: Flush Stop: 07/21/19 00:45 Daptomycin 360 mg/ Syringe 7.2 mls @ 2 mls/min IV DAILY [facility]; Protocol Stop: 08/03/19 10:59 Last Admin: 06/24/19 08:18 Dose: 2 mls/min Documented by: Ioversol (Optiray 320 125ml) 120 ml IV ONCE PRN PRN Reason: Interaction Checking Stop: 06/25/19 10:44 Last Admin: 06/21/19 10:46 Dose: 120 ml Documented by: Lactobacillus Acidophilus (Floranex) 4 tab PO QAM [facility] Stop: 07/17/19 08:59 Last Admin: 06/24/19 08:15 Dose: 4 tab Documented by: Lactobacillus Acidophilus (Floranex Granules/Powder Packet) 1 gm PO TIDM [facility] Stop: 07/22/19 16:59 Last Admin: 06/24/19 08:17 Dose: Not Given Documented by: Lidocaine HCl (Viscous Lidocaine 2%) 15 ml MT Q2H PRN PRN Reason: pain Stop: 07/22/19 11:44 Last Admin: 06/23/19 11:51 Dose: 15 ml Documented by: Loperamide HCl (Imodium) 2 mg PO TID PRN PRN Reason: Diarrhea Stop: 07/22/19 00:17 Last Admin: 06/22/19 08:03 Dose: 2 mg Documented by: Metoprolol Tartrate (Lopressor) 5 mg IV Q30M PRN PRN Reason: Tachycardia >130 Stop: 07/22/19 01:58 Last Admin: 06/22/19 02:30 Dose: 5 mg Documented by: Metoprolol Tartrate (Lopressor) 12.5 mg PO BID [facility] Stop: 07/22/19 08:59 Last Admin: 06/24/19 08:19 Dose: 12.5 mg Documented by: Morphine Sulfate (Morphine Sulfate) 0.5 mg IV Q8H PRN PRN Reason: Severe Pain Stop: 07/02/19 17:09 Last Admin: 06/20/19 21:16 Dose: 0.5 mg Documented by: Ondansetron HCl (Zofran) 4 mg IV Q6H PRN PRN Reason: Nausea Stop: 07/22/19 12:11 Last Admin: 06/23/19 09:37 Dose: 4 mg Documented by: Oxybutynin Chloride (Ditropan) 5 mg PO BID [facility] Stop: 07/17/19 08:59 Last Admin: 06/24/19 08:18 Dose: 5 mg Documented by: Oxycodone HCl (Roxicodone Immediate Rel) 5 mg PO Q6H PRN PRN Reason: Pain Stop: 07/01/19 00:14 Last Admin: 06/20/19 20:29 Dose: 5 mg Documented by: Pantoprazole Sodium (Protonix) 40 mg PO QAM [facility] Stop: 07/17/19 08:59 Last Admin: 06/21/19 10:56 Dose: Not Given Documented by: Polysaccharide Iron Complex (Niferex-150 W/Vit C Cap) 150 mg PO DAILY [facility] Stop: 07/23/19 08:59 Last Admin: 06/24/19 08:20 Dose: 150 mg Documented by: Potassium Chloride (Klor-Con M10) 10 meq PO BID [facility] Stop: 07/22/19 20:59 Last Admin: 06/24/19 08:19 Dose: 10 meq Documented by: Prednisone (Prednisone) 5 mg PO QAM [facility] Stop: 07/17/19 08:59 Last Admin: 06/24/19 08:21 Dose: 5 mg Documented by: Prednisone (Prednisone) 1 mg PO PM [facility] Stop: 07/17/19 20:59 Last Admin: 06/23/19 20:10 Dose: 1 mg Documented by:
--- NOTE | 2019-06-24 13:00 | Cardiology Progress Note ---
Date of Service June 24, 2019 Assessment & Plan (1) PAF (paroxysmal atrial fibrillation): The patient remains in sinus rhythm on amiodarone and metoprolol tartrate. Would increase amiodarone dose to 200 mg b.i.d. for 1 month, then decrease to 200 mg daily. (2) Paroxysmal SVT (supraventricular tachycardia): As above, continue amiodarone and metoprolol. (3) Sinus tachycardia: The patient is now in sinus rhythm reflecting her proved clinical state. Subjective The patient is resting comfortably in bed and is currently eating her breakfast. No complaints of chest pain, dyspnea, or palpitations. Physical Exam Physical Exam: In general this is a well-developed well-nourished white female in no acute distress. HEENT exam is negative. Neck is supple with full carotid upstrokes. There are no carotid bruits. Jugular venous pressure is flat at 90. There is no thyromegaly. Cardiovascular exam reveals a regular rhythm with a normal S1 and S2. Heart sounds are distant. No obvious murmurs. Lungs are clear without rales, rhonchi, or wheezes. Abdomen is soft and nontender without bruits. Extremities reveal intact radial artery pulses bilaterally. There is no peripheral edema. Right knee is dressed. Results & Data Vital Signs (Past 12 Hours) Vital Signs Temp Pulse Resp BP Pulse Ox 06/24/19 12:04 36.8 C 101 H 18 134/55 L 95 06/24/19 06:54 37.0 C 89 16 118/53 L 91 06/24/19 03:25 37.4 C 81 16 129/73 92 Diagnostic Findings quality assurance monitor chassis notes normal sinus rhythm with PACs. No SVT or atrial fibrillation in the last 24 hours. PG Care Time/CCT Total # of Minutes Spent Total Time Spent with Patient: Total time spent is greater than 50% in coordination of care (as documented) at patient's floor/unit and/or counseling patient:
[2019-06-24] MEDS: predniSONE 1 MG TAB PO SCH (20:44)
[2019-06-25 05:37] LABS: Basophils # (auto) 0.02 K/uL (0-0.2); Basophils % (auto) 0.1 %; Eosinophils % (auto) 1.4 %; Hemoglobin 7.4 g/dL (12.0-16.0); Immature Granulocytes # (auto) 0.15 K/uL (0.00-0.02); Lymphocytes # (auto) 0.95 K/uL (1.2-3.4); Lymphocytes % (auto) 6.5 %; Mean Corpuscular Hemoglobin 24.8 pg (25-34); Mean Corpuscular Hgb Conc 30.8 g/dL (32-36); Mean Corpuscular Volume 80.5 fL (80-100); Mean Platelet Volume 9.2 fL (7.4-10.4); Monocytes # (auto) 1.68 K/uL (0.11-0.59); Monocytes % (auto) 11.5 %; Neutrophils # (auto) 11.66 K/uL (1.4-6.5); Neutrophils % (auto) 79.5 %; Platelet Count 519 K/uL (130-400); RDW Coefficient of Variation 19.1 % (11.5-14.5); RDW Standard Deviation 56.9 fL (36.4-46.3); Red Blood Count 2.98 M/uL (4.2-5.4); White Blood Count 14.66 K/uL (4.8-10.8)
[2019-06-25 05:55] LABS: BUN Creatinine Ratio 18.1 (10-20); Calcium 9.5 mg/dl (8.5-10.1); Creatinine Clr Calc Pharmacy 55.5 ml/min; Est GFR (African American) 89.3; Potassium 4.8 mmol/L (3.5-5.1)
[2019-06-25 05:58] LABS: Hypochromasia Present; Polychromasia 1+
[2019-06-25] MEDS ORDERED: FUROSEMIDE 40 MG TAB PO SCH (09:00)
[2019-06-25] MEDS: CALCIUM CARBONATE 1250MG TAB PO SCH (09:02)
[2019-06-25] MEDS: LACTOBACILLUS ACIDOPHILUS (FLORANEX) TAB PO SCH (09:02)
[2019-06-25] MEDS: OXYBUTYNIN CHLORIDE 5 MG TAB PO SCH (09:03)
[2019-06-25] MEDS: predniSONE 5 MG TAB PO SCH (09:03)
[2019-06-25] MEDS: METOPROLOL TARTRATE 25 MG TAB PO SCH (09:04)
[2019-06-25] MEDS: GABAPENTIN 100 MG CAP PO SCH ×2 (09:04→15:27)
[2019-06-25] MEDS: APIXABAN 5 MG TABLET PO SCH (09:05)
[2019-06-25] MEDS: IRON POLYSACCHARIDE COMPLEX 150 MG CAPSULE PO SCH (09:07)
[2019-06-25] MEDS: POTASSIUM CHLORIDE 10 MEQ TABCR PO SCH (09:07)
[2019-06-25] MEDS: AMIODARONE 200 MG TAB PO SCH (09:07)
[2019-06-25] MEDS: CHOLESTYRAMINE LIGHT 4 GM PKT PO SCH (09:08)
[2019-06-25] MEDS: ACYCLOVIR 400 MG TAB PO SCH ×2 (09:08→15:26)
[2019-06-25] MEDS: NYSTATIN 30 ML, DEXAMETHASONE CONC 3.75 MG, DiphenhydrAMINE Syrup 300 MG, ORA-SWEET SYR... PO SCH ×2 (09:12→15:28)
[2019-06-25] MEDS: DAPTOmycin 360 MG in SYRINGE 0 ML IV SCH (09:13)
[2019-06-25] MEDS: LACTOBACILLUS ACIDOPHILUS 1 GM PACK PO SCH ×2 (11:32→13:35)
--- NOTE | 2019-06-25 15:11 | Discharge Summary ---
Date of Service June 25, 2019 Admission HPI Per Admitting Provider Patient is a 68-year-old female PMH GERD, hyperparathyroid, vertigo, history of oral cancer, Hodgkin's lymphoma who presents 2 days after discharge from this facility with complaints of palpitation, shortness of breath, chest spasms, and general malaise. Patient is POD #9 status post explant right total knee, I&D, placement of antibiotic cement spacer of right knee. She was discharged on daptomycin per ID for 6-8 weeks. Patient had home health present today who felt that she had an irregular heartbeat. Her , who provides most of the history, notes that she has also been having increased work of breathing. On arrival to the ER, she had an elevated temperature, but states she did not feel feverish at home. She also notes a 2-day history of chest spasms, which she originally thought were musculoskeletal in nature. Patient's only other complaint was diarrhea, which she states has been present since starting antibiotics during her last admission. She believes that her knee pain has been under pretty good control, citing oxycodone and Tylenol use at home In the ER, initial work-up revealed an elevated white blood cell count of 19, hemoglobin of 8.6, relatively normal BMP, INR 1.3 mag of 1.6 and notably, an elevated troponin of 0.082. she was also noted to have a BNP level of 1122. Chest x-ray revealed evidence of mild CHF, as well as trace pleural effusions. CT angio revealed small pleural effusions as well. Blood cultures were sent and are currently pending. Principal Diagnosis acute resp failure 2/2 fluid overload Discharge Exam Constitutional WD/WN, vitals as above Eyes PERRL, conjunctivae normal, anicteric sclerae ENMT tongue with ulcerations, well healing Respiratory normal respiratory effort, lungs clear to auscultation Cardiovascular RRR, no murmur, no edema Gastrointestinal (Abdomen) normal bowel sounds, soft, nontender, no hepatosplenomegaly Skin no rashes, warm and dry Psychiatric A+Ox3, euthymic affect Discharge Data Allergies Allergy/AdvReac Type Severity Reaction Status Date / Time dalbavancin Allergy Severe hypotension, Verified 06/16/19 15:20 flushing, tachypnea Consultations 06/16/19 19:19 ED Decision to Admit Stat 06/17/19 00:05 Consult Case Management - Discharge Planning Routine Consult Infectious Diseases Routine 06/17/19 04:42 Consult Orthopedic Surgery Routine 06/19/19 11:52 Consult Cardiology Routine Ordered Studies 06/16/19 15:35 CT angio chest PE protocol Stat 06/21/19 10:02 CT angio chest PE protocol Urgent Hospital Course (1) Shortness of breath: Patient is a 68-year-old female s/p R knee prosthesis explant with concurr ent E.faecalis infection with resolving acute respiratory failure secondary to fluid overload from pleural effusion in setting of atrial fibrillation. The following is the medical management during stay here: Acute respiratory failure secondary to fluid overload with worsening b/l Pleural Effusion in setting of Tachyarrhythmia - Had to be put on bipap and later on nasal cannula, but able to be weaned down to RA on d/c New onset Acute diastolic CHF Bilateral pleural effusion - sec to a fib and IVF from recent hospital stay. - kept on IV lasix. Diuresed ~ 5L - Kidney function stable - Cr 0.73 on d/c - Switched to PO lasix on d/c for additional 2 days - Afib management as below Chest Pain/a fib - On admission, patient was having chest pain and some palpitations which had resolved with suspicion of chest pain with of MSK etiology - Echo 06/2019 shows pEF with no wall motion abnormalities, no evidence of heart failure. - per cardio, increased Amiodarone from 100mg BID to 200mg BID. Continue Amiodarone 200 mg BID for 1 month and then transition to 200mg once daily thereafter. - Continue metoprolol tartrate 12.5mg PO BID - Started on apixiban 5mg BID for chronic anticoagulation. - Troponin trending down Poor Appetite, decreased PO intake 2/2 oral ulcerations, improving - Patient has resumed eating (soft foods) and notes ulcers are improving. - 2% lidocaine to mouth rinse for topical pain relief of ulcers - Acyclovir 400mg TID for empiric treatment of potential herpes stomatitis, reports improvement. Tx total 6 day course finished on d/c - Follow clinically and continue diet supplement R Knee PJI s/p explantation with spacer implant - Per ortho - continue on daptopmycin per ID recommendation, obtain IO culture, maintain knee immobilizer, PT/OT when stable, and follow up in 1wk after discharge - Anticipate d/c to complete ~6 weeks dapto through R PICC line. Will need weekly CBC, CMP, ESR, CPK on d/c - On apixaban for afib, OK to d/c on apixaban instead of lovenox per Ortho - Culture pending, previous positive for E.faecalis - XR knee 06/23 No significant change from prior postop change, significant osteopenia, no acute osseous injury -Pt will have home health set up to get this antibiotic -pt to have ID and ortho f/u on d/c that will be arranged within one week Anemia - Hgb ~7 - Pt does not report fatigue - No signs of acute bleeding - Iron polysaccharide PO daily Diarrhea, antibiotic induced: - Improved, no blood in stool, with mucous, or completely liquid - C diff testing was negative - Continue probiotic and cholestyramine. RA - Continue prednisone 5mg daily qam, 1mg qPM - Follow up outpatient with [facility] project portfolio analyst in regards to chronic steroid use and osteopenia DVTP: Apixaban. At time of d/c, pt had no other acute concerns or complaints. Total Time Total Time Spent Total Time Spent (In Minutes): see attending attestation Discharge Plan Discharge Items Patient Disposition: Home - Self-Care Reason For Visit: POST OP ELEVATED TROP, TEMP, SOB Discharge Diagnosis: Acute resp failure 2/2 fluid overload Activity: Per Instructions section Non-emergency contact: Primary Care Provider Call non-emergency contact if: you have any medication questions and your symptoms worsen Follow-up/Referrals: Sylvia Nails MD [Primary Care Provider] - Diet: Low Sodium (2gm) Addtl Attending Provider Instructions: You were admitted for acute respiratory failure secondary to fluid overload from pleural effusion in setting of atrial fibrillation. Please follow the below instructions on discharge: -To continue to get some more fluid out of you, you will continue an oral diuretic Lasix 40 mg for additional 2 days -A fib management: -Continue Amiodarone 200 mg 2x/day for 1 month and then transition to 200mg once daily thereafter. - Continue metoprolol tartrate 12.5mg PO 2x/day - You were started on apixiban 5mg 2x/day for chronic anticoagulation Antibiotic: -You will complete 6 weeks of dapto through your Right PICC line. Home Health will assist you with this -You will need weekly CBC, CMP, ESR, CPK blood tests, which your PCP will arrange for -you will have ID and ortho follow up that will be arranged within one week of discharge Pending Studies at Discharge: No Stand-Alone Forms: My [facility], Smoking Cessation Medications and DC Order Prescriptions: New Eliquis 5 mg Tablet 5 mg PO BID Qty: 30 RF: 0 amiodarone 200 mg Tablet 200 mg PO BIDM 30 Days Qty: 60 RF: 0 metoprolol tartrate 25 mg Tablet 12.5 mg PO BID 30 Days Qty: 30 RF: 0 furosemide 40 mg tablet 40 mg PO DAILY Qty: 2 RF: 0 Continued calcitriol 0.5 mcg capsule 0.5 mcg PO QPM RF: 0 oxybutynin chloride 5 mg tablet 5 mg PO BID Qty: 180 RF: 1 (DME) Knee Stabilizer misc See Dose Instructions .ROUTE .MEDSUPPLY Qty: 1 RF: 0 prednisone 5 mg Tablet 5 mg PO QAM RF: 0 prednisone 1 mg Tablet 1 mg PO PM RF: 0 gabapentin 100 mg Capsule 100 mg PO TID RF: 0 Probiotic 3 billion cell Capsule 3,000 mmu cells PO QAM RF: 0 Mac[facility] 7,160 unit-113 mg-100 unit Tablet 1 tab PO QAM RF: 0 omeprazole 20 mg capsule,delayed release(DR/EC) 20 mg PO BID RF: 0 cranberry 500 mg Capsule 500 mg PO HS RF: 0 Calcium 600 + D(3) 600 mg calcium- 200 unit Capsule 1 cap PO BID RF: 0 acetaminophen [Tylenol Extra Strength] 500 mg Tablet 1,000 mg PO Q8 PRN (Reason: Pain) Qty: 90 RF: 0 oxycodone 5 mg Tablet 5 mg PO Q6H MDD 6 tabs PRN (Reason: pain) Qty: 30 RF: 0 sennosides [Senokot] 8.6 mg Tablet 17.2 mg PO HS PRN (Reason: constipation) Qty: 28 RF: 0 daptomycin 500 mg recon soln 360 mg IV DAILY 42 Days Qty: 1 RF: 0 pantoprazole 40 mg Tablet,Delayed Release (Dr/Ec) 40 mg PO QAM Qty: 30 RF: 0 Discontinued enoxaparin [Lovenox] 30 mg/0.3 mL Syringe 30 mg subcut Q24H 28 Days Qty: 28 RF: 0 Discharge Orders: Discharge Order (Routine); Ordered 06/25/19 Ordered By: Inocencio Morales Admission Data Admit Date/Time: 06/16/19 22:06 Attending Provider: Charity Diaz Admit Provider: Jeaneth Durant Primary Care Provider: Sylvia Nails Other Providers: Heri Wellington ; Patt Deleon ; Ihsan Vela ; [facility] ; Edd Vance ; Pete Quesada Other Interventions: Discharge Summary Assessment (RN) Last Done: 06/25/19 15:42 DC Date/Time DO NOT enter until pt leaves facility: 06/25/19 16:10 Supervising Physician Co-Signing Physician Notes Resident Physician Supervision Note: I independently interviewed and examined the patient and verified the [facility]man [facility] istory and physical, reviewed labs and image studies, discussed the case with the resident Dr. Morales and agree with the findings and care plan. Time spent in discharge 40 min Resident Activity Tracking Resident Involvement: Resident Care Provided Care Provided: Adult Hospital Medicine
== END 2019-06-25 16:10 | disposition home or self-care (01) | DRG 291 ==
LOC: ED 13:35 → 2S 22:06 → SUATTDRO 22:06 → 2S 23:18

== ENCOUNTER 2019-12-29 10:50 | Inpatient (IN) ==
--- NOTE | 2019-08-12 10:56 | Anesthesiology Consultation ---
Date of Service August 12, 2019 Assessment & Plan (1) Encounter for pre-operative examination: Chart Review Chart Review: Acceptable Risk for Surgery and Patient NOT seen in Pre Admission Testing Patient on supervisor intermediates antibiotic therapy, 6 weeks daptomycin. Had PICC line but to be removed per ID note likely before surgery date. Consults Requested none PCP note 08/01/2019: Patient is medically optimized for her upcoming knee surgery. OF NOTE, PATIENT WAS BACK IN AFIB DURING PRIMARY CARE PREOP VISIT BUT SHE WAS RATE CONTROLLED AND ON ELIQUIS SO NO FURTHER ACTION TAKEN. If SAB is considered, will need to ensure patient is off of eliquis 3 days prior to surgery. WILL SEND NOTE TO PCP TO SEE IF IT CAN BE HELD THIS LONG. History Surgery Operation Date: 08/30/19 09:25 Proposed Procedures p Right Knee Total Revision Arthroplasty with Explant Antibiotic Spacer, Incision and Drainage - Ihsan Vela DO Height/Weight Height: 53 ft Weight: 55.338 kg Allergies Allergy/AdvReac Type Severity Reaction Status Date / Time dalbavancin Allergy Severe hypotension, Verified 08/11/19 16:00 flushing, tachypnea Medications Home Medications Medication Instructions Recorded Confirmed Last Taken Probiotic 3,000 mmu cells PO QAM 03/30/18 08/11/19 06/06/19 08:00 gabapentin 100 mg PO TID 03/30/18 08/11/19 06/07/19 05:00 prednisone 1 mg PO QDD 03/30/18 08/11/19 06/06/19 17:00 prednisone 5 mg PO QAM 03/30/18 08/11/19 06/16/19 07:00 cranberry 500 mg PO QDD 09/29/18 08/11/19 10/26/18 omeprazole 20 mg PO BID 09/29/18 08/11/19 06/16/19 09:00 [facility] 1 tab PO QAM 10/08/18 08/11/19 05/24/19 calcitriol 0.5 mcg capsule 0.5 mcg PO QPM 02/10/19 08/11/19 06/06/19 17:00 leg brace #1 ea 02/10/19 08/01/19 Unknown Calcium 600 + D(3) 1 cap PO BID 06/07/19 08/11/19 06/06/19 17:00 hydroxychloroquine 200 mg tablet 200 mg PO BID tab 07/01/19 08/11/19 Unknown oxybutynin chloride 5 mg tablet 5 mg PO BID #180 tab 07/04/19 08/11/19 Unknown apixaban 5 mg tablet 5 mg PO BID #180 tab 08/01/19 08/11/19 Unknown hydrocodone 10 mg-acetaminophen 1 tab PO Q6H PRN tab 08/01/19 08/11/19 Unknown 325 mg tablet leflunomide 20 mg tablet 20 mg PO QAM tab 08/01/19 08/11/19 Unknown naproxen 500 mg tablet 500 mg PO BID tab 08/01/19 08/11/19 Unknown metoprolol tartrate 25 mg tablet 12.5 mg PO BID #90 tab 08/09/19 08/11/19 Unknown amiodarone 200 mg PO QAM 08/11/19 08/11/19 Unknown sennosides [Senokot] 17.2 mg PO HS 08/11/19 08/11/19 Unknown Past Medical History Medical History Atrial fibrillation DDD (degenerative disc disease) GERD (gastroesophageal reflux disease) History of Hodgkin's lymphoma 2004/PCP under surveillance History of oral cancer s/p tongue excision left side (no chemo/XRT 2013) RA (rheumatoid arthritis) on chronic steroids Past Family History Family History Mother Breast cancer Colorectal cancer Cancer Gastric cancer Aunt Colorectal cancer Other Family history non-contributory Past Surgical History Surgical History Cancer (Chronic) TONGUE EXCISION LEFT SIDE H/O foot surgery (Resolved) TOES X MULTIPLE H/O parathyroidectomy (Resolved) History of biopsy Of soft tissue of the neck History of breast surgery Puncture aspiration of cyst History of carpal tunnel release (Resolved) RIGHT History of colposcopy with cervical biopsy with endocervical curettage History of glossectomy with unilateral radical neck dissection History of hip surgery R/L REVISION History of total hip arthroplasty (Resolved) R/L History of total knee replacement (Resolved) R/L History of tubal ligation Hx of hand surgery RIGHT Hx of knee surgery ANTIBIOTIC SPACER AND REVISION Right knee hardware removal at [facility] on 16/01/2019. MAC with propofol. 50mg hydrocortisone given at start of procedure (stress dose). 11/09/2018: Revision of left total hip. Done with SAB (2.8ml of 0.5% bupivicaine) and sedation, no issues. patient given stress dose steroids. Social History Smoking Status: Never smoker Hx Alcohol Use: No Hx Substance Use: No substance use type: does not use Testing Laboratory Results Blood Type O Positive 08/11/19 14:30 Antibody Screen NEGATIVE 08/11/19 14:30 Electrocardiogram ECG from 06/22/2019 showed A fib with RVR, HR 142. Cardiology was following this patient as she was inpatient at the time and per their note on 06/24/2019: Patient converted to sinus rhythm with amiodarone and metoprolol. Echocardiogram Date: 06/17/19 LV systolic function is normal No RWMA Mild LVH EF 65-70%
--- NOTE | 2019-12-20 13:11 | PAT Medication Instructions ---
Medication Instructions Date of Service December 20, 2019 Home Medications Medication Instructions Recorded leg brace #1 ea 02/10/19 oxybutynin chloride 5 mg tablet 5 mg PO BID #180 tab 07/04/19 apixaban 5 mg tablet 5 mg PO BID #180 tab 08/01/19 metoprolol tartrate 25 mg tablet 12.5 mg PO BID #90 tab 08/09/19 Probiotic 3,000 mmu cells PO QAM gabapentin 100 mg PO TID prednisone 1 mg PO QPM prednisone 5 mg PO QAM cranberry 500 mg PO QAM omeprazole 20 mg PO BID [facility] 1 tab PO QAM calcitriol 0.5 mcg capsule 0.5 mcg PO QPM Calcium 600 + D(3) 1 cap PO BID hydroxychloroquine 200 mg tablet 200 mg PO BID oxybutynin chloride 5 mg tablet 5 mg PO BID apixaban 5 mg tablet 5 mg PO BID hydrocodone 10 mg-acetaminophen 325 mg tablet 1 tab PO Q6H PRN leflunomide 20 mg tablet 20 mg PO QAM metoprolol tartrate 25 mg tablet 12.5 mg PO BID amiodarone 200 mg PO QAM sennosides [Senokot] 17.2 mg PO HS ASK your prescriber and surgeon hydroxychloroquine 200 mg tablet 200 mg PO BID leflunomide 20 mg tablet 20 mg PO QAM apixaban 5 mg tablet 5 mg PO BID (in order for spinal anesthesia, Apixaban/eliquis needs to be stopped 3 days (72 hours) before surgery. Please check if okay with doctor that prescribes this to you) STOP taking 2 weeks before surgery (or as soon as possible if surgery is within 2 weeks) cranberry 500 mg PO QAM [facility] 1 tab PO QAM DO NOT take the morning of surgery Probiotic 3,000 mmu cells PO QAM Calcium 600 + D(3) 1 cap PO BID oxybutynin chloride 5 mg tablet 5 mg PO BID Take morning of surgery With a small sip of water, OTHERWISE NOTHING TO EAT OR DRINK AFTER MIDNIGHT: gabapentin 100 mg PO TID prednisone 5 mg PO QAM omeprazole 20 mg PO BID hydrocodone 10 mg-acetaminophen 325 mg tablet 1 tab PO Q6H PRN (okay to take up to 4 hours prior to surgery if needed) metoprolol tartrate 25 mg tablet 12.5 mg PO BID amiodarone 200 mg PO QAM Take evening before surgery gabapentin 100 mg PO TID prednisone 1 mg PO QPM omeprazole 20 mg PO BID calcitriol 0.5 mcg capsule 0.5 mcg PO QPM Calcium 600 + D(3) 1 cap PO BID oxybutynin chloride 5 mg tablet 5 mg PO BID hydrocodone 10 mg-acetaminophen 325 mg tablet 1 tab PO Q6H PRN (if needed) metoprolol tartrate 25 mg tablet 12.5 mg PO BID sennosides [Senokot] 17.2 mg PO HS Other Notes If you have any questions please call us at [phone] or [phone] or [phone] or [phone]
--- NOTE | 2019-12-22 12:57 | Anesthesiology Consultation ---
Date of Service December 22, 2019 Assessment & Plan (1) Encounter for examination following treatment at hospital: - Awaiting EKG tracings (done 12/21/19 at [facility] cardiology office visit). - Per surgeon preop orders, PCP clearance is being requested but nothing scheduled. Will have surgeon office clarify if PCP clearance needed from their perspective. Per PAT assessment on 12/21: Travel screen negative. No known COVID-19 positive contacts. No current COVID-19 related symptoms. No hx of COVID-19 testing. Patient scheduled for preop COVID testing on 12/25 (U). Awaiting results. - Cardiology office visit: 12/21/19: "She is currently stable and asymptomatic from a cardiovascular standpoint with no anginal symptoms. She has no signs or symptoms of CHF. Echo in June demonstrated normal LV systolic function with no significant valvular abnormality. She remains in normal sinus rhythm on EKG today. Her blood pressure is well controlled. Given this information, the patient is at an acceptable risk to proceed with upcoming surgery without any additional cardiovascular testing or intervention.. She may hold her Eliquis as recommended by her surgeon." - Eliquis instructions: patient made aware that in order for spinal anesthesia, Eliquis needs to be held 72 hours prior to surgery. Patient voiced understanding. - Left MAURO revision: 11/09/18: SABx1 at L3-L4 at [facility] History Surgery Operation Date: 12/29/19 12:40 Proposed Procedures p Right Total Knee Revision versus Repeat Incision and Drainage with Antibiotic Cement Spacer - Ihsan Vela DO Height/Weight Height: 5 ft 2 in Weight: 57.7 kg Allergies Allergy/AdvReac Type Severity Reaction Status Date / Time dalbavancin Allergy Severe hypotension, Verified 12/21/19 11:59 flushing, tachypnea Medications Home Medications Medication Instructions Recorded Confirmed Last Taken Probiotic 3,000 mmu cells PO QAM 03/30/18 12/21/19 06/06/19 08:00 gabapentin 100 mg PO TID 03/30/18 12/21/19 06/07/19 05:00 prednisone 1 mg PO QPM 03/30/18 12/21/19 06/06/19 17:00 prednisone 5 mg PO QAM 03/30/18 12/21/19 06/16/19 07:00 cranberry 500 mg PO QAM 09/29/18 12/21/19 10/26/18 omeprazole 20 mg PO BID 09/29/18 12/21/19 06/16/19 09:00 [facility] 1 tab PO QAM 10/08/18 12/21/19 05/24/19 calcitriol 0.5 mcg capsule 0.5 mcg PO QPM 02/10/19 12/21/19 06/06/19 17:00 leg brace #1 ea 02/10/19 12/21/19 Unknown Calcium 600 + D(3) 1 cap PO BID 06/07/19 12/21/19 06/06/19 17:00 hydroxychloroquine 200 mg tablet 200 mg PO BID tab 07/01/19 12/21/19 Unknown oxybutynin chloride 5 mg tablet 5 mg PO BID #180 tab 07/04/19 12/21/19 Unknown apixaban 5 mg tablet 5 mg PO BID #180 tab 08/01/19 12/21/19 Unknown hydrocodone 10 mg-acetaminophen 1 tab PO Q6H PRN tab 08/01/19 12/21/19 Unknown 325 mg tablet leflunomide 20 mg tablet 20 mg PO QAM tab 08/01/19 12/21/19 Unknown metoprolol tartrate 25 mg tablet 12.5 mg PO BID #90 tab 08/09/19 12/21/19 Unknown amiodarone 200 mg PO QAM 08/11/19 12/21/19 Unknown sennosides [Senokot] 17.2 mg PO HS 08/11/19 12/21/19 Unknown [facility] PO DAILY 12/21/19 Unknown Past Medical History Medical History Anemia follows with Dr. Thibodeaux, s/p IV iron infusions Atrial fibrillation paroxysmal Chronic back pain DDD (degenerative disc disease) GERD (gastroesophageal reflux disease) controlled History of Hodgkin's lymphoma 2003/under surveillance by PCP/Dr. Thibodeaux History of oral cancer s/p tongue excision left side (no chemo/no XRT 2013) Paroxysmal SVT (supraventricular tachycardia) RA (rheumatoid arthritis) on chronic steroid Exercise / Class Metabolic Activity III < 4 Walking/Shop/Light housework (decreased activity in setting of back pain/uses walker ) Past Family History Family History Mother Breast cancer Colorectal cancer Cancer Gastric cancer Aunt Colorectal cancer Other Family history non-contributory Denies family history of Ovarian cancer Prostate cancer Myocardial infarction Past Surgical History Surgical History Cancer (Chronic) TONGUE EXCISION LEFT SIDE H/O foot surgery (Resolved) TOES X MULTIPLE H/O parathyroidectomy (Resolved) History of biopsy Of soft tissue of the neck History of breast surgery Puncture aspiration of cyst History of carpal tunnel release (Resolved) RIGHT History of colonoscopy History of colposcopy with cervical biopsy with endocervical curettage History of glossectomy with unilateral radical neck dissection History of hip surgery R/L REVISION Left MAURO revision: 11/09/18: SABx1 at L3-L4 at [facility] History of total hip arthroplasty (Resolved) R/L History of total knee replacement (Resolved) R/L History of tubal ligation Hx of hand surgery RIGHT Hx of knee surgery ANTIBIOTIC SPACER AND REVISION Status post total hip replacement, left Past Anesthesia History No Hx of Anesthesia Complications and No Family Hx of Anesthesia Complications History of PONV No Hx of PONV and No Hx of Motion Sickness Social History Smoking Status: Never smoker Do You Dip or Chew Tobacco: No Hx Alcohol Use: Yes Alcohol type: hard liquor alcohol intake frequency: holidays/special occasions only Hx Substance Use: No substance use type: does not use Review of Systems Patient denies chest pain, shortness of breath, fever, chills, cough, wheezing, palpitations. Physical Exam Vital Signs VITALS BP 135/58 P 61 TEMP 99.0 SP02 92-93%RA RESP 16 PHYSICAL Full neck and c-spine range of motion. Full TMJ range of motion. TMD 2 finger breaths Mallampati Score 3 (tongue abnormality s/p surgical resection) Dentition: missing molars Lungs: clear throughout to auscultation Cardiac: regular rate and rhythm, no murmurs noted Spine: normal Carotid arteries: negative bruit Extremities: no edema Testing Laboratory Results 12/22/19 13:35 12/22/19 13:35 PT 11.7 Seconds (9.0-12.0) 12/22/19 13:35 INR 1.1 (0.9-1.1) 12/22/19 13:35 APTT 28.6 Seconds (21.0-31.0) 12/22/19 13:35 Hemoglobin A1c 5.6 % (4.5-5.6) 12/22/19 13:35 Urine Color Dark Yellow 12/22/19 Unknown Urine Appearance Cloudy (Clear) A 12/22/19 Unknown Urine pH 5.5 (4.5-7.5) 12/22/19 Unknown Ur Specific Offerle 1.021 (1.000-1.030) 12/22/19 Unknown Urine Protein Negative (Negative) 12/22/19 Unknown Urine Glucose (UA) Negative (Negative) 12/22/19 Unknown Urine Ketones Trace (Negative) H 12/22/19 Unknown Urine Nitrite Positive (Negative) A 12/22/19 Unknown Ur Leukocyte Esterase 2+ (Negative) H 12/22/19 Unknown Urine WBC (Auto) >30 /hpf (0-5) H 12/22/19 Unknown Urine RBC (Auto) 0-4 /hpf (0-4) 12/22/19 Unknown U Hyaline Cast (Auto) 5-10 /lpf (0-5) H 12/22/19 Unknown U Epithel Cells (Auto) >30 /lpf (0-5) H 12/22/19 Unknown Urine Bacteria (Auto) 4+ (Negative) H 12/22/19 Unknown Blood Type O Positive 12/22/19 13:35 Antibody Screen NEGATIVE 12/22/19 13:35 Surgeon's office made aware of abnormal UA* Electrocardiogram Date: 12/21/19 "sinus rhythm at 65 bpm and nonspecific T wave abnormality" per [facility] cardiology office visit from that day. Attempting to obtain official tracings. Chest X-Ray Date: 12/22/19 Negative chest. Mild emphysematous change Echocardiogram Date: 06/17/19 LV systolic function is normal No RWMA Mild LVH EF 65-70% Cervical Spine Date: 10/15/18 1. Multilevel degenerative changes as above. 2. Grade 1 anterolisthesis C3 on C4 is slightly worsened on flexion. Correlate clinically to exclude instability. 3. Fixed anterolisthesis C4 on C5 is unchanged throughout the study. 4. No acute fracture. c-spine xray was done as preop testing for Left MAURO revision which was done 11/09/18 at [facility] (SABx1 at L3-L4 without issue). No c-spine tenderness or cervicalgia per PAT visit 12/22/19. Good cervical extension on exam.
[2019-12-22 13:49] LABS: Appearance Synovial Fluid HAZY; Color Synovial Fluid PALE YELLOW; RBC Synovial Fluid (A) 5000 /uL; Source Synovial Fluid KNEE; WBC Synovial Fluid (A) 3077 /ul (0-200)
--- NOTE | 2019-12-22 14:02 | XRay Report ---
XR chest 2V PA/lateral CLINICAL HISTORY: PREOP COMPARISON STUDY: 06/22/2019 FINDINGS: The bones soft tissues and hemidiaphragms are normal. The cardiomediastinal silhouette is n ormal. The lungs are clear. The pulmonary vasculature is normal. Mild emphysematous change IMPRESSION: Negative chest. Mild emphysematous change ACT 112: Negative or not required by law. The above report was generated using voice recognition software. It may contain grammatical, syntax or spelling errors. Electronically signed by: Paco Parry M.D. 12/22/2019 2:01 PM
[2019-12-22 14:23] LABS: Basophils # (auto) 0.04 K/uL (0-0.2); Basophils % (auto) 0.6 %; Eosinophils # (auto) 0.17 K/uL (0-0.5); Eosinophils % (auto) 2.4 %; Hematocrit (blood only) 42.6 % (37-47); Hemoglobin 13.4 g/dL (12.0-16.0); Immature Granulocytes # (auto) 0.03 K/uL (0.00-0.02); Immature Granulocytes % (auto) 0.4 %; Lymphocytes # (auto) 0.98 K/uL (1.2-3.4); Lymphocytes % (auto) 13.9 %; Mean Corpuscular Hemoglobin 28.9 pg (25-34); Mean Corpuscular Hgb Conc 31.5 g/dL (32-36); Mean Corpuscular Volume 91.8 fL (80-100); Mean Platelet Volume 10.6 fL (7.4-10.4); Monocytes # (auto) 0.53 K/uL (0.11-0.59); Monocytes % (auto) 7.5 %; Neutrophils % (auto) 75.2 %; Platelet Count 207 K/uL (130-400); RDW Coefficient of Variation 15.5 % (11.5-14.5); RDW Standard Deviation 52.1 fL (36.4-46.3); Red Blood Count 4.64 M/uL (4.2-5.4); White Blood Count 7.05 K/uL (4.8-10.8)
[2019-12-22 14:36] LABS: Estimated Average Glucose 114 mg/dl; Hemoglobin A1C 5.6 % (4.5-5.6)
[2019-12-22 14:45] LABS: INR 1.1 (0.9-1.1); Partial Thromboplastin Time 28.6 Seconds (21.0-31.0); Prothrombin Time 11.7 Seconds (9.0-12.0)
[2019-12-22 14:57] LABS: Appearance Urine Cloudy (Clear); Bacteria Urine Automated 4+ (Negative); Bilirubin Urine Negative (Negative); Blood Urine Negative (Negative); Color Urine Dark Yellow; Epithelial Cell Urine Auto >30 /lpf (0-5); Glucose Urine UA Negative (Negative); Ketones Urine Trace (Negative); Leukocyte Esterase Urine 2+ (Negative); Nitrite Urine Positive (Negative); Protein Urine Negative (Negative); RBC Urine Automated 0-4 /hpf (0-4); Specific Gravity Urine 1.021 (1.000-1.030); Urobilinogen Urine Negative (Negative); WBC Urine Automated >30 /hpf (0-5); pH Urine 5.5 (4.5-7.5)
[2019-12-22 14:59] LABS: Albumin Level 3.1 gm/dl (3.4-5.0); BUN Creatinine Ratio 16.9 (10-20); Calcium 9.8 mg/dl (8.5-10.1); Creatinine Clr Calc Pharmacy 42.5 ml/min; Est GFR (Non-African American) 59.5; Potassium 4.8 mmol/L (3.5-5.1)
--- NOTE | 2019-12-25 11:36 | History & Physical Report ---
Date of Service December 29, 2019 Assessment & Plan (1) Infection associated with internal right knee prosthesis: I have indicated the patient for repeat I+D and placement of antibiotic cement spacer vs revision right total knee arthroplasty. We will plan on obtaining I/O frozen sections to assess for persistent infection. The risks, benefits and complications of surgery were explained to the patient which include but not limited to infections, acute blood loss, DVT/PE, injury to nerves, vessels, bone, soft tissue, arthrofibrosis, chronic pain, failure of the prosthesis, knee dislocation, leg length discrepancy, need for additional surgery, cardiac and pulmonary events and . The patient wished to proceed with surgery and informed consent was obtained at this time. We will plan for Lovenox post-operatively for DVT prophylaxis. Upon discharge the patient will be discharged home with home health services. Appropriate clearances by PCP, cardiology and infectious disease were obtained. The patient's RA medications were held pre-operatively. Patient asymptomatic for UTI. 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 I/O cultures positive for Enterococcus facialis. ID was consulted and the patient was discharged on 6 weeks of IV daptomycin. Inflammatory labs were followed weekly. Once IV abx completed and was off all abx for two weeks arthrocentesis was performed 08/19/19, a-defensin negative, CC [id number]. The patients ESR CRP were trending lower but still elevated. Consultation with ID determined no further need for IV abx at that time. We decided to follow inflammatory labs till normal and repeat arthrocentesis of the knee was performed on 09/15/19, CC [id number], inflammatory labs had normalized. We discussed repeat I+D vs revision TKA however the decision was made to delay any surgery secondary to COVID-19 pandemic and the patient being high risk secondary to RA and taking multiple immune modifying medications. Repeat arthrocentesis on 11/10/19, CC 5834, cultures + for coag neg staph, ID consulted and felt contaminant. Recommended repeat arthrocentesis prior to proceeding with surgery which was performed on 12/22/19. CC increased to 3077, culture negative, ESR and CRP elevated, >140 and 0.61 respectively. Patient has been treated for recurrant UTI over the last year with positive cultures at most recent pre-admission testing. Patient also has PMHx for RA for which she takes several medications for. The patient is asymptomatic for UTI. Patient is scheduled for repeat I+D and and placement of antibiotic cement spacer vs revision right total knee arthroplasty. Allergies Allergy/AdvReac Type Severity Reaction Status Date / Time dalbavancin Allergy Severe hypotension, Verified 12/29/19 11:08 flushing, tachypnea Home Medications Home Medications Medication Instructions Recorded Confirmed Type Probiotic 3,000 mmu cells PO QAM 03/30/18 12/29/19 History gabapentin 100 mg PO TID 03/30/18 12/29/19 History prednisone 1 mg PO QPM 03/30/18 12/29/19 History prednisone 5 mg PO QAM 03/30/18 12/29/19 History cranberry 500 mg PO QAM 09/29/18 12/29/19 History omeprazole 20 mg PO BID 09/29/18 12/29/19 History [facility] 1 tab PO QAM 10/08/18 12/29/19 History leg brace #1 ea 02/10/19 12/21/19 Rx Calcium 600 + D(3) 1 cap PO BID 06/07/19 12/29/19 History hydroxychloroquine 200 mg tablet 200 mg PO BID tab 07/01/19 12/29/19 History oxybutynin chloride 5 mg tablet 5 mg PO BID #180 tab 07/04/19 12/29/19 Rx apixaban 5 mg tablet 5 mg PO BID #180 tab 08/01/19 12/29/19 Rx hydrocodone 10 mg-acetaminophen 1 tab PO Q6H PRN tab 08/01/19 12/29/19 History 325 mg tablet leflunomide 20 mg tablet 20 mg PO QAM tab 08/01/19 12/29/19 History metoprolol tartrate 25 mg tablet 12.5 mg PO BID #90 tab 08/09/19 12/29/19 Rx amiodarone 200 mg PO QAM 08/11/19 12/29/19 History sennosides [Senokot] 17.2 mg PO HS 08/11/19 12/29/19 History cephalexin 500 mg capsule 500 mg PO BID #14 cap 12/27/19 12/29/19 Rx calcitriol 0.5 mcg capsule 0.5 mcg PO QPM #90 cap 12/29/19 12/29/19 Rx Past Med/Surg History Medical History Anemia follows with Dr. Thibodeaux, s/p IV iron infusions Atrial fibrillation paroxysmal Chronic back pain DDD (degenerative disc disease) GERD (gastroesophageal reflux disease) controlled History of Hodgkin's lymphoma 2003/under surveillance by PCP/Dr. Thibodeaux History of oral cancer s/p tongue excision left side (no chemo/no XRT 2013) Paroxysmal SVT (supraventricular tachycardia) RA (rheumatoid arthritis) on chronic steroid Surgical History Cancer (Chronic) TONGUE EXCISION LEFT SIDE H/O foot surgery (Resolved) TOES X MULTIPLE H/O parathyroidectomy (Resolved) History of biopsy Of soft tissue of the neck History of breast surgery Puncture aspiration of cyst History of carpal tunnel release (Resolved) RIGHT History of colonoscopy History of colposcopy with cervical biopsy with endocervical curettage History of glossectomy with unilateral radical neck dissection History of hip surgery R/L REVISION Left MAURO revision: 11/09/18: SABx1 at L3-L4 at [facility] History of total hip arthroplasty (Resolved) R/L History of total knee replacement (Resolved) R/L History of tubal ligation Hx of hand surgery RIGHT Hx of knee surgery ANTIBIOTIC SPACER AND REVISION Status post total hip replacement, left Family History Mother Breast cancer Colorectal cancer Cancer Gastric cancer Aunt Colorectal cancer Other Family history non-contributory Denies family history of Ovarian cancer Prostate cancer Myocardial infarction Social History Preferred Language: Tajik Communication Ability: Effective Visual Impairment: Limited 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: Normal Carrier Packer Required: No Beliefs That Will Affect Care: None marital status: Current Living Situation: Spouse current occupational status: retired Other Information That Helps Us Care for You: No Feels Safe at Home: Yes Safety Concerns: Feels Safe At This Time Smoking Status: Never smoker Do You Dip or Chew Tobacco: No ; Second Hand Exposure: No ; Hx Alcohol Use: Yes Alcohol type: hard liquor Hx Substance Use: No Childhood Exposure to Second-Hand Smoke: Yes Seatbelt Use: always Review of Systems Review of Systems: All systems reviewed & are unremarkable except as noted in HPI & below Constitutional: as per Subjective / HPI Physical Exam Physical Exam: RLE NVSI +EHL/FHL/TA/GS SILT grossly, +2 DP pulse, compartments soft NT, mild effusion, incision cdi, ROM 0-90 degrees of flexion. Constitutional: WD/WN, vitals as above Eyes: PERRL, conjunctivae normal, anicteric sclerae ENMT: external ear and nose normal, oropharynx normal Neck: trachea midline, no thyromegaly Respiratory: normal respiratory effort, lungs clear to auscultation Cardiovascular: RRR, no murmur, no edema Gastrointestinal (Abdomen): normal bowel sounds, soft, nontender, no hepatosplenomegaly Musculoskeletal: no cyanosis or clubbing, extremities motor strength 5/5 Skin: no rashes, warm and dry Neurologic: patellar DTR's 2+ bilat, sensation intact Psychiatric: A+Ox3, euthymic affect Lymphatic: no cervical or axillary lymphadenopathy Results & Data Results & Data ([facility]) Diagnostic Findings XRs of the right knee demonstrates a well aligned antibiotic cement spacer without fracture/dislocation. (1) Infection associated with internal right knee prosthesis Encounter type: initial encounter Qualified Code(s): T84.53XA - Infection and inflammatory reaction due to internal right knee prosthesis, initial encounter
[~2019-12-29 10:50] MED LIST changes: +BUPIVACAINE 0.5 % 5 MG/1 ML PF 10ML VIAL ONE; -CEFAZOLIN 1000MG 1,000 MG/7.5 ML SYR IV SCH; +CEFAZOLIN 2000MG 2,000 MG/15 ML SYR IV SCH; +EPINEPHrine INJ 1 MG/ML AMP ONE; -MIDAZOLAM HCL 1 MG/ML 2ML VIAL ONE; -PROPOFOL IV EMULSION 10 MG/ML 20 ML VIAL IV ONE; +ROPIVACAINE 0.5% 5 MG/ML 30 ML VIAL ONE; +ROPIVACAINE 0.5% HCL/PF 150 MG, BUPIVACAINE 0.5% MPF 30 ML, EPINEPHrine 30MG/30ML (OR U... INFIL SCH; +TRANEXAMIC ACID 1,000 MG **IV Intra-op IV SCH; +TRANEXAMIC ACID 1,000 MG **IV Pre-op IV SCH; -fentaNYL citrate 100 MCG/2 ML VIAL ONE
[2019-12-29] MEDS ORDERED: MIDAZOLAM HCL 1 MG/ML 2ML VIAL ONE ×2 (11:09)
[2019-12-29] MEDS ORDERED: dexAMETHasone 4 MG TAB PO ONE (11:41)
[2019-12-29] MEDS ORDERED: CeleBREX 200 MG CAP ONE (11:41)
[2019-12-29] MEDS ORDERED: TRANEXAMIC ACID / 0.7% NACL 1000MG/100ML BAG IV ONE (11:42)
[2019-12-29] MEDS ORDERED: FAMOTIDINE 20 MG TAB ONE (11:42)
[2019-12-29] MEDS ORDERED: CEFAZOLIN 2,000 MG/15 ML IV PUSH IV ONE (11:42)
[2019-12-29] MEDS ORDERED: METOCLOPRAMIDE HCL 10 MG TABLET ONE (11:42)
[2019-12-29] MEDS ORDERED: ATROPINE SULFATE 0.1 MG/ML 10ML SYR IV PRN (11:53)
[2019-12-29] MEDS ORDERED: fentaNYL citrate 100 MCG/2 ML VIAL IV PRN (11:53)
[2019-12-29] MEDS ORDERED: ePHEDrine sulfate 50 MG/ML AMP IV PRN (11:53)
[2019-12-29] MEDS ORDERED: ONDANSETRON INJ 2 MG/ML 2 ML VIAL IV PRN ×2 (11:53→18:49)
[2019-12-29] MEDS ORDERED: VANCOMYCIN HCL 1000MG/20ML VIAL ONE ×3 (12:33→13:46)
[2019-12-29] MEDS ORDERED: ORTHO JOINT ANESTHETIC ONE (12:33)
[2019-12-29] MEDS ORDERED: BACITRACIN INJ 50,000 UNIT VIAL ONE ×3 (12:33→16:11)
--- NOTE | 2019-12-29 12:36 | History & Physical Bridge Note ---
Date of Service December 29, 2019 History & Physical Bridge Note I have examined the patient, reviewed the History & Physical and in the interval since the performance of the History & Physical I have noted the following changes of clinical significance: no changes noted
[2019-12-29] MEDS ORDERED: LIDOCAINE HCL 2% 2 ML VIAL/AMP(20MG/ML) INFIL ONE (13:34)
[2019-12-29] MEDS ORDERED: SODIUM CHLORIDE 0.9% INJ 10 ML VIAL ONE (13:34)
[2019-12-29] MEDS ORDERED: PROPOFOL IV EMULSION 10 MG/ML 20 ML VIAL IV ONE ×4 (13:34→16:33)
[2019-12-29] MEDS ORDERED: ePHEDrine sulfate 50 MG/ML SYR ONE (14:02)
[2019-12-29] MEDS ORDERED: PHENYLEPHRINE HCL 10 MG/ML VIAL ONE (14:02)
[2019-12-29 14:45] LABS: Appearance Synovial Fluid BLOODY; Color Synovial Fluid RED; Mononuclear WBC Synovial 58.3 %; Polynuclear WBC Synovial 41.7 %; RBC Synovial Fluid (A) 94000 /uL; Source Synovial Fluid KNEE; WBC Synovial Fluid (A) 2688 /ul (0-200)
[2019-12-29] MEDS ORDERED: fentaNYL citrate 100 MCG/2 ML VIAL ONE (15:13)
--- NOTE | 2019-12-29 16:35 | Post Operative Brief Note ---
Immediate Post Op Note v1 Date of Surgery December 29, 2019 Pre & Post Diagnosis Operation Date: 12/29/19 12:40 Pre-Op Diagnosis: Right Knee Osteoarthritis Post-Op Diagnosis: Right Knee Osteoarthritis I identified the patient and participated in the time-out.: Yes Procedure Operation Date: 12/29/19 12:40 Actual Procedures p Right Total Knee Revision, Incision and Drainage with Antibiotic Cement Spacer(Right) - Ihsan Vela DO Surgeon Ihsan Vela DO Industrial Laborer Fredy Calles Estimated Blood Loss 185 Findings Consistent with Post-Op Diagnosis Specimens Synovial fluid Frozen tissue section x8 Tissue culture tibia, femur, synovium x3 Drains Chan Catheter and Hemovac Drain (dual trocar) Anesthesia Type MAC Spinal Regional Complications none Disposition Disposition: Recovery Room Overlapping Procedure I was present for: the critical portions of procedure. I was immediately available: during the entire case. Back up surgeon: was not required during procedure.
--- NOTE | 2019-12-29 16:36 | Operative Report ---
Post Operative Report Pre & Post Diagnosis Operation Date: 12/29/19 12:40 Pre-Op Diagnosis: Right Knee Osteoarthritis Post-Op Diagnosis: Right Knee Osteoarthritis I identified the patient and participated in the time-out.: Yes Procedure Operation Date: 12/29/19 12:40 Actual Procedures p Right Total Knee Revision, Incision and Drainage with Antibiotic Cement Spacer(Right) - Ihsan Vela DO Surgeon Ihsan Vela DO Padding Gluer Fredy Calles Estimated Blood Loss 185 Findings Consistent with Post-Op Diagnosis Specimens Synovial fluidcell count, Gram stain and culture Fresh frozen section x8 Tissue culture x3 tibia, femur, synovium Anesthesia Type MAC Spinal Regional Complications none Disposition Disposition: Recovery Room Description of Procedure Components used: [employer]: Vanguard 10x71/75 PS + poly, 62.5 R PS trial femur, Palacos G cement with 3g Vancomycin per packet. Following induction of spinal anesthesia, a tourniquet was applied to the proximal aspect of the thigh and the patient's right leg was prepped and draped in the usual sterile manner. A timeout was performed and site gloria verified. Appropriate IV antibiotics were verified and given. Limb was Elevated for 5 minutes and tourniquet was inflated to 300 mmHg. The prior incision was identified and excised and a longitudinal midline incision was made over the anterior knee. Subcutaneous tissue was sharply dissected down to fascia. Electrocautery was used for hemostasis. Next a medial parapatellar arthrotomy was performed. Synovial fluid was obtained and sent for state CC, GS and culture. I identified thickened chronically inflamed synovial tissue deep to the fascia. Meticulous removal of hypertrophic synovium and scar tissue was removed with Bovie. Synovial tissue samples x 5 were sent for frozen section. The patella was subluxed laterally and the knee was flexed. A vick retractor was used to expose the synovium above on the anterior aspect of the femur and removed down to bone. Next, the anterior fat pad was removed to aid in visualization. The medial face of the tibia was cleared of soft tissue first with a bovie and a hannon elevator. This tissue was retracted posteriorly using a blunt hohmann. Adequate access was obtained to the antibiotic cement spacer. Next we turned our attention to the femoral side and utilizing a flexible osteotome loosened the interface between the antibiotic spacer mold and bone. The femoral mold was easily removed exposing the distal femur. Large cystic changes were noticed with a moderate amount of bone loss involving the medial and lateral condyles and 2cm x 2cm defect of the distal anterior cortex. Meticulous removal of residual cement from the bone was performed. Frozen section was collected from distal femur at this time. Next we turned our attention to the proximal tibia and utilizing the flexible osteotome the tibial mold and cement interface was disrupted. Artisyn chisels were then utilized to remove the remaining cement from the proximal tibial canal. Meticulous removal of residual cement from the bone was performed. A frozen section was collected from the tibia. The tourniquet was dropped at this time at 60 minutes. Next we meticulously removed remaining cement and cleared the distal femur proximal tibia and any remaining soft tissue. We gained access to both the intramedullary tibia and femur and intramedullary membrane was scraped with curved curettes. There was purulent appearing material was removed from the distal femur intramedullary canal. Additional frozen sections were sent at this time from the distal femur and proximal tibia. Access was gained to the patella and meticulous removal of fibrous soft tissue was performed. A final frozen section was sent from the patella region where previous sinus tract was noted. The decision was made to proceed with I+D and placement of articulating antibiotic cement spacer. An extensive debridement of the knee soft tissue and bone interface was performed at this time. Tissue samples x 3 were sent for GS and cultures. We were satisfied when only healthy appearing soft tissue remained. Aquamantys was utilized for any bleeders. The knee was irrigated with 6L of sterile saline solution mixed with bacitracin followed by a betadine soak for 3 minutes. The leg was elevated for 5 minutes and tourniquet inflated once again at this time. Additional irrigation with 3L of sterile saline solution mixed with bacitracin was performed. Access to the knee was once again obtained utilizing two bent hohmann retractors and the proximal tibia and distal femur were dried with lap sponges. Palacos G cement with 3 g of vancomycin per Palacos packet was was mixed for cementing process. We allowed for the cement to get doughy and proceeded to cement in place the femur component. Once hardened a second batch of Palacos G Cement was mixed with 3g of vancomycin per packet. Once cement was doughy, we cemented in the tibial articulating surface. Care was taken to remove excess cement and allow adequate time for cement to hardened to restore the joint height. The knee was extended carefully and traction held in place until cement hardened c ompletely. All excess cement was removed. Once the cement had hardened knee stability was once again assessed. The articulating spacer gave good fit and fill of the joint space with adequate stability at all degrees of range of motion. The knee was once more irrigated with copious amounts of sterile saline with bacitracin. Hemovac drains 2 were inserted deep to the capsule. The capsulotomy was closed with 1 PDS followed by subcutaneous closure with 2-0 PDS suture. Skin closure was performed using Bryanna, sterile dressings were applied which included debra, 4x4s ABDs, hmv drain sponge and ramiro wrap. The tourniquet was deflated at this time at 138 minutes. The knee was placed in a immobilizer. The patient was extubated in the OR and transported to the PACU in stable condition. Due to the complex nature of the procedure, the entire surgery was performed with the operational assistance of Fredy calles PA-C. The assistant statistician, under direct supervision, was involved in the actual performance of all aspects of the surgical procedure including patient positioning, hemostasis, tissue retraction, instrument management and wound closure. I attest to the content of the Intraoperative Record and any orders documented therein. Any exceptions are noted below.
[2019-12-29] MEDS ORDERED: VANCOMYCIN CONSULT ACTIVE PRN (16:50)
[2019-12-29] MEDS ORDERED: VANCOMYCIN HCL 750 MG in SODIUM CHLORIDE 0.9% 500 ML IV SCH (17:00)
--- NOTE | 2019-12-29 17:40 | XRay Report ---
XR knee RT 1 or 2V routine CLINICAL HISTORY: Surgical Post Op COMPARISON: 06/23/2019 DISCUSSION: Postoperative changes to the right knee. Cement is material proximal tibia. Expected postoperative soft tissue change. There is no evidence for soft tissue swelling. IMPRESSION: Anatomic alignment post right knee revision ACT 112: Negative or not required by law. The above report was generated using voice recognition software. It may contain grammatical, syntax or spelling errors. Electronically signed by: Paco Parry M.D. 12/29/2019 5:39 PM
[2019-12-29 17:57] LABS: Hemoglobin 9.8 g/dL (12.0-16.0)
--- NOTE | 2019-12-29 18:02 | Orthopedic Progress Note ---
Date of Service December 29, 2019 Assessment & Plan (1) Infection associated with internal right knee prosthesis: Status post revision of right knee antibiotic cement spacer, I&D. -Vancomycin/ancef -DVT prophylaxis: SCDs, teds, Eliquis -Partial weightbearing right lower extremity -Maintain knee immobilizer at all times -Postoperative x-ray demonstrates a well aligned well fixed articulating antibiotic cement spacer without fracture dislocation -A.m. labs -Monitor drain output -Follow-up intraoperative cultures -DC planningwill require prolonged course of IV antibiotics x6 weeks, consultation with medicine in regards to perioperative management and recommendations. Patient follows infectious disease with [facility]. Subjective Post Operative Progress Note Patient seen in PACU, comfortable, denies complaints, pain well controlled, no acute issues. Review of Systems Review of Systems: All systems reviewed & are unremarkable except as noted in HPI & below Constitutional: as per Subjective / HPI Physical Exam Physical Exam: RLE NVSI +EHL/FHL/TA/GS SILT grossly, +2 DP pulse, compartments soft NT, dressing cdi. Constitutional: WD/WN, vitals as above Results & Data ([facility]) Vital Signs (Past 12 Hours) Vital Signs Temp Pulse Resp BP Pulse Ox 12/29/19 17:50 69 14 91/51 L 100 12/29/19 17:40 77 13 107/37 L 99 12/29/19 17:30 73 24 89/44 L 100 12/29/19 17:20 75 20 80/44 L 100 12/29/19 17:10 80 21 100/59 L 100 12/29/19 17:02 85 15 110/58 L 98 12/29/19 11:20 36.7 C 72 18 178/61 H 97 (1) Infection associated with internal right knee prosthesis Encounter type: initial encounter Qualified Code(s): T84.53XA - Infection and inflammatory reaction due to internal right knee prosthesis, initial encounter
--- NOTE | 2019-12-29 18:34 | Anesthesiology Progress Note ---
Date of Service December 29, 2019 Anesthesia Post Procedure Vital Signs Vital Signs: Temp Pulse Resp BP Pulse Ox 12/29/19 18:20 70 19 103/83 100 12/29/19 18:10 36.3 C L 73 16 127/57 L 99 12/29/19 18:00 68 16 118/63 100 12/29/19 17:50 69 14 91/51 L 100 12/29/19 17:40 77 13 107/37 L 99 12/29/19 17:30 73 24 89/44 L 100 12/29/19 17:20 75 20 80/44 L 100 12/29/19 17:10 80 21 100/59 L 100 12/29/19 17:02 85 15 110/58 L 98 12/29/19 11:20 36.7 C 72 18 178/61 H 97 Transfer of Care Handoff Completed per policy Notes Mental Status: alert / awake / arousable Patient Amnestic to Procedure: Yes Nausea / Vomiting: adequately controlled Pain: adequately controlled Airway Patency, RR, SpO2: stable & adequate BP & HR: stable & adequate Hydration State: stable & adequate Anesthetic Complications: no major complications apparent
[2019-12-29] MEDS ORDERED: bisacodyL 10 MG SUPP PR PRN (18:49)
[2019-12-29] MEDS ORDERED: MAGNESIUM HYDROXIDE SUSP 30 ML UDC PO PRN (18:49)
[2019-12-29] MEDS ORDERED: NALOXONE HCL 0.4 MG/1 ML VIAL/CARP IV PRN (18:49)
[2019-12-29] MEDS ORDERED: METOCLOPRAMIDE HCL INJ 5 MG/ML 2 ML VIAL IV PRN (18:49)
[2019-12-29] MEDS ORDERED: VANCOMYCIN HCL 1,500 MG in SODIUM CHLORIDE 0.9% 500 ML IV ONE (19:00)
[2019-12-29] MEDS: HYDROmorphone INJ 0.5 MG/0.5 ML SYR IV PRN (19:19)
[2019-12-29] MEDS: SODIUM CHLORIDE 0.9% 1000ML 1,000 ML IV SCH (19:33)
--- NOTE | 2019-12-29 19:40 | Pharmacy Report ---
Pharmacy Abx Initial Consult - Date of Service December 29, 2019 - Pharmacy Dosing Scope Date of Consult: 12/29/19 Consultation requested by: Dr. Vela Pharmacy is consulted to initiate vancomycin IV dosing therapy, order appropriate labs and adjust drug dose/frequency. - Subjective The patient is a 69 year old F admitted on 12/29/19 17:13. - Objective Height: 5 ft 2 in Weight: 57.7 kg Vital Signs (Past 12hrs): Vital Signs Temp Pulse Resp BP Pulse Ox 12/29/19 19:23 83 18 104/52 L 98 12/29/19 18:53 84 18 101/57 L 93 12/29/19 18:35 36.6 C 74 18 90/42 L 97 12/29/19 18:20 70 19 103/83 100 12/29/19 18:10 36.3 C L 73 16 127/57 L 99 12/29/19 18:00 68 16 118/63 100 12/29/19 17:50 69 14 91/51 L 100 12/29/19 17:40 77 13 107/37 L 99 12/29/19 17:30 73 24 89/44 L 100 12/29/19 17:20 75 20 80/44 L 100 12/29/19 17:10 80 21 100/59 L 100 12/29/19 17:02 85 15 110/58 L 98 12/29/19 11:20 36.7 C 72 18 178/61 H 97 Micro Results: 12/29/19 15:30 Gram Stain - Pending Knee,Right Aerobic and Anaerobic Culture - Pending 12/29/19 15:30 Gram Stain - Pending Knee,Right Aerobic and Anaerobic Culture - Pending 12/29/19 15:30 Gram Stain - Pending Knee,Right Aerobic and Anaerobic Culture - Pending 12/29/19 14:04 Gram Stain - Final Synovial Fluid Aerobic and Anaerobic Culture - Pending 12/22/19 12:20 Gram Stain - Final Knee,Right Aerobic and Anaerobic Culture - Final No growth 12/22/19 Unknown Urine Culture - Final Urine,Clean Catch Escherichia coli - Risk Factors for Resistance * History of infection with a multidrug-resistant organism * Antimicrobial use within the last 90 days (Daptomycin) - Assessment & Plan Assessment 69 year old F initiated on IV Vancomycin for infection associated with internal right knee prosthesis. Synovial Fluid c/s pending Patient meets criteria for vancomycin AUC dosing nomogram AUC/ANUSHA is the preferred PK/PD target for vancomycin Target AUC/ANUSHA = 400-600 AUC guided dosing is effective and associated with decreased risk of nephrotoxicity Plan Vancomycin for treatment of Bone/Joint Infection Vancomycin IV: dosing per AUC dosing nomogram * Vancomycin 1500mg IV x 1 loading dose, then, * Vancomycin 1250 mg IV Q24hrs * Goal trough level for bone/joint : 15 to 20 mcg/mL * Trough/Random level ordered for 01/01/20 @ 1830 Pharmacy will continue to follow and will adjust dose/frequency as necessary. Thank you.
[2019-12-29] MEDS ORDERED: predniSONE 1 MG TAB PO SCH (21:00)
[2019-12-29] MEDS: OXYCODONE HCL IR 5 MG TAB (IMMEDIATE RELEASE) PO PRN (21:29)
[2019-12-29] MEDS: DOCUSATE SODIUM 100 MG CAP PO SCH (21:29)
[2019-12-29] MEDS: METOPROLOL TARTRATE 25 MG TAB PO SCH (21:30)
[2019-12-29] MEDS: OXYBUTYNIN CHLORIDE 5 MG TAB PO SCH (21:30)
[2019-12-29] MEDS: GABAPENTIN 100 MG CAP PO SCH (21:30)
[2019-12-29] MEDS: SENNA 8.6 MG TAB PO SCH ×2 (21:31→21:33)
[2019-12-29] MEDS: ACETAMINOPHEN 500 MG TAB PO SCH (21:31)
[2019-12-29] MEDS: PANTOprazole 40 MG TAB PO SCH (21:33)
[2019-12-29 21:39] LABS: Basophils # (auto) 0.02 K/uL (0-0.2); Basophils % (auto) 0.2 %; Eosinophils # (auto) 0.01 K/uL (0-0.5); Eosinophils % (auto) 0.1 %; Hematocrit (blood only) 27.6 % (37-47); Hemoglobin 8.7 g/dL (12.0-16.0); Immature Granulocytes # (auto) 0.05 K/uL (0.00-0.02); Immature Granulocytes % (auto) 0.4 %; Lymphocytes # (auto) 0.58 K/uL (1.2-3.4); Lymphocytes % (auto) 4.9 %; Mean Corpuscular Hemoglobin 29.8 pg (25-34); Mean Corpuscular Volume 94.5 fL (80-100); Mean Platelet Volume 9.5 fL (7.4-10.4); Monocytes # (auto) 0.23 K/uL (0.11-0.59); Monocytes % (auto) 1.9 %; Neutrophils # (auto) 11.03 K/uL (1.4-6.5); Neutrophils % (auto) 92.5 %; Platelet Count 194 K/uL (130-400); RDW Coefficient of Variation 15.5 % (11.5-14.5); RDW Standard Deviation 52.7 fL (36.4-46.3); Red Blood Count 2.92 M/uL (4.2-5.4); White Blood Count 11.92 K/uL (4.8-10.8)
[2019-12-29] MEDS ORDERED: AMIODARONE 200 MG TAB PO ONE (22:00)
[2019-12-29] MEDS ORDERED: CEFAZOLIN 1000MG 1,000 MG/7.5 ML SYR IV SCH (22:00)
--- NOTE | 2019-12-29 22:01 | Hospitalist Consultation ---
Date of Consultation December 29, 2019 Assessment & Plan (1) PAF (paroxysmal atrial fibrillation): Pt is a 69yo female with a PMHx significant for infection of a right knee prosthesis s/p revision of R knee, I&D on 12/29/19, atrial fibrillation, RA, hypothyroidism, Hx of Hodgkin's lymphoma, osteoporosis, hyperparathyroidism and reflux esophagitis. A consult was placed to the medicine team for atrial fibrillation which occurred during surgery as well as antibiotic management. Atrial Fibrillation -Pt has known recent hx, follows with Dr. Vance of cardiology -currently rate controlled -will optimize electrolytes, K>4.0, Mag>2.0 (see below) -Trops slightly elevated at 0.049, will trend. Likely demand ischemia in the setting of surgery and infection as a stressor. -Echo pending (also consider possibility of endocarditis given chronic infection Hx) -continue home metoprolol tartrate 12.5mg BID -continue home amiodarone 200mg daily -continue home Eliquis 5mg BID -consult to cardiology in the AM Infection of R knee prosthesis -s/p revision of R knee, I&D on 12/29/19 -afebrile, WBC increased -transitioned from ancef to 4th gen Cefepime for increased gram neg coverage including pseudomonas -continue vancomycin -follow surgical cultures for speciation and abx narrowing Hypomagnesemia -mag noted to be 1.5 -replete as necessary with goal >2 UTI -previously on Keflex before surgery; hold -treatment provided by Ancef and now cefepime for knee infection as above Rheumatoid arthritis -pt on multiple medications -restarted on home prednisone of 5mg in AM and 1mg in PM -Increased to stress dose of Prednisone 10mg in AM and 2mg in PM -can consider stress dosing with hydrocortisone 100mg q8h as well if needed -hold home hydroxychloroquine 200mg BID and leflunomide 20mg qAM Reflux esophagitis -hold home omeprazole -continue formulary protonix 40mg BID Overactive bladder -continue home oxybutynin 5mg BID Hypoparathyroidism -continue home calcitriol 0.5mcg qpm Osteoporosis -continue home calcium 600mg and Vit D3 FEN/GI: Heart Healthy diet; On NSS @100mls DVT prophylaxis: on Eliquis CODE STATUS: Full Dispo: Needs continuous telemetry monitoring Thank you for this consult. Supervising Physician Co-Signing Physician Notes Attending addendum: I have physically seen this patient, have supervised the medical residents activities, and agree with the H&P unless as otherwise noted. Assessment and Plan: Status post revision of right knee with antibiotic spacer and I&D- Received vancomycin IV and Ancef IV. Continue vancomycin, will discontinue Ancef and place on cefepime IV. Atrial fibrillation- Follow on telemetry Continue metoprolol tartrate 12.5 mg p.o. twice daily, amiodarone 30 mg p.o. daily, Eliquis 5 mg p.o. twice daily. Follow serial troponins, with first troponin minimally elevated at 0.049. Order echocardiogram. Consult cardiology, Dr. Vance Optimize magnesium with IV supplement, with present level 1.5 Rheumatoid arthritis- Double dosing of prednisone to 10/2 for 2 days, and if signs of adrenal deficiency, change to hydrocortisone 100 mg IV every 8 hours. Continue hydroxychloroquine 200 mg p.o. twice daily. Remainder of orders and notations as noted. We will follow along during hospital stay History of Present Illness Attending Physician: Ihsan Vela, DO History of Present Illness Pt is a 69yo female with a PMHx significant for infection of a right knee prosthesis s/p revision of R knee, I&D on 12/29/19, atrial fibrillation, RA, hypothyroidism, Hx of Hodgkin's lymphoma, osteoporosis, hyperparathyroidism and reflux esophagitis. A consult was placed to the medicine team for atrial fibrillation which occurred during surgery as well as antibiotic management. Pt states she had the diagnosis of atrial fibrillation from June 2019 and she followed with Dr. Vance of [facility] Card[facility]. States at her last visit, she was told her heart "is fine". Took her AM amiodarone at home before her surgery. Currently denies dizziness, SOB, chest pain, palpitations. Has not been out of bed yet as she is nly a few hours post-op. Never smoker, no alcohol use, no recreational drug use. Allergies Allergy/AdvReac Type Severity Reaction Status Date / Time dalbavancin Allergy Severe hypotension, Verified 12/29/19 11:08 flushing, tachypnea Home Medications Home Medications Medication Instructions Recorded Confirmed Type Probiotic 3,000 mmu cells PO QAM 03/30/18 12/29/19 History gabapentin 100 mg PO TID 03/30/18 12/29/19 History prednisone 1 mg PO QPM 03/30/18 12/29/19 History prednisone 5 mg PO QAM 03/30/18 12/29/19 History cranberry 500 mg PO QAM 09/29/18 12/29/19 History omeprazole 20 mg PO BID 09/29/18 12/29/19 History Macuvite [facility] Care 1 tab PO QAM 10/08/18 12/29/19 History leg brace #1 ea 02/10/19 12/21/19 Rx Calcium 600 + D(3) 1 cap PO BID 06/07/19 12/29/19 History hydroxychloroquine 200 mg tablet 200 mg PO BID tab 07/01/19 12/29/19 History oxybutynin chloride 5 mg tablet 5 mg PO BID #180 tab 07/04/19 12/29/19 Rx apixaban 5 mg tablet 5 mg PO BID #180 tab 08/01/19 12/29/19 Rx hydrocodone 10 mg-acetaminophen 1 tab PO Q6H PRN tab 08/01/19 12/29/19 History 325 mg tablet leflunomide 20 mg tablet 20 mg PO QAM tab 08/01/19 12/29/19 History metoprolol tartrate 25 mg tablet 12.5 mg PO BID #90 tab 08/09/19 12/29/19 Rx amiodarone 200 mg PO QAM 08/11/19 12/29/19 History sennosides [Senokot] 17.2 mg PO HS 08/11/19 12/29/19 History cephalexin 500 mg capsule 500 mg PO BID #14 cap 12/27/19 12/29/19 Rx calcitriol 0.5 mcg capsule 0.5 mcg PO QPM #90 cap 12/29/19 12/29/19 Rx Patient History Medical History (Updated 01/02/20 @ 17:12 by Jeaneth Marquez PA-C) Anemia follows with Dr. Thibodeaux, s/p IV iron infusions Atrial fibrillation paroxysmal Chronic back pain DDD (degenerative disc disease) GERD (gastroesophageal reflux disease) controlled History of Hodgkin's lymphoma 2003/under surveillance by PCP/Dr. Thibodeaux History of oral cancer s/p tongue excision left side (no chemo/no XRT 2013) Paroxysmal SVT (supraventricular tachycardia) RA (rheumatoid arthritis) on chronic steroid Surgical History Cancer (Chronic) TONGUE EXCISION LEFT SIDE H/O foot surgery (Resolved) TOES X MULTIPLE H/O parathyroidectomy (Resolved) History of biopsy Of soft tissue of the neck History of breast surgery Puncture aspiration of cyst History of carpal tunnel release (Resolved) RIGHT History of colonoscopy History of colposcopy with cervical biopsy with endocervical curettage History of glossectomy with unilateral radical neck dissection History of hip surgery R/L REVISION Left MAURO revision: 11/09/18: SABx1 at L3-L4 at [facility] History of total hip arthroplasty (Resolved) R/L History of total knee replacement (Resolved) R/L History of tubal ligation Hx of hand surgery RIGHT Hx of knee surgery ANTIBIOTIC SPACER AND REVISION Status post total hip replacement, left Family History Mother Breast cancer Colorectal cancer Cancer Gastric cancer Aunt Colorectal cancer Other Family history non-contributory Denies family history of Ovarian cancer Prostate cancer Myocardial infarction Social History Preferred Language: Swiss Communication Ability: Effective Visual Impairment: Limited 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: Normal Sap Architect Required: No Beliefs That Will Affect Care: None marital status: Current Living Situation: Spouse current occupational status: retired Other Information That Helps Us Care for You: No Feels Safe at Home: Yes Safety Concerns: Feels Safe At This Time Smoking Status: Never smoker Do You Dip or Chew Tobacco: No ; Second Hand Exposure: No ; Hx Alcohol Use: No Hx Substance Use: No Childhood Exposure to Second-Hand Smoke: Yes Seatbelt Use: always Review of Systems Constitutional: + fatigue; no fever, no chills and no sweats Eyes: no worsening vision Ear, Nose, Mouth, Throat: no dizziness, no nasal congestion and no sore throat Respiratory: no cough and no dyspnea Cardiovascular: no chest pain, no dyspnea, no palpitations and no edema Gastrointestinal: no abdominal pain, no nausea, no vomiting, no constipation and no diarrhea/loose stools Musculoskeletal: + joint pain Integumentary: no rash Neurologic: no dizziness and no headache(s) Psychiatric: no confusion Physical Exam Physical Exam: General: Alert, oriented. Tired sitting up in bed Skin: No noted rashes or bruises Psych: Appropriate mood and affect Neuro: No gross deficits HEENT: NC/AT Chest: Nontender to palpation. CV: Irregular Irregular rate Resp: Breath sounds clear bilaterally, no increased effort of breathing. Abdomen: BS+. Soft, nontender, nondistended. Extremities: Right leg in black brace around the knee. Results & Data Results & Data ([facility]) Vital Signs (Past 12 Hours) Vital Signs Temp Pulse Pulse Resp BP Pulse Ox 12/29/19 21:44 82 17 139/60 96 12/29/19 20:48 72 12/29/19 19:23 83 18 104/52 L 98 12/29/19 18:53 84 18 101/57 L 93 12/29/19 18:35 36.6 C 74 18 90/42 L 97 12/29/19 18:20 70 19 103/83 100 12/29/19 18:10 36.3 C L 73 16 127/57 L 99 12/29/19 18:00 68 16 118/63 100 12/29/19 17:50 69 14 91/51 L 100 12/29/19 17:40 77 13 107/37 L 99 12/29/19 17:30 73 24 89/44 L 100 12/29/19 17:20 75 20 80/44 L 100 12/29/19 17:10 80 21 100/59 L 100 12/29/19 17:02 85 15 110/58 L 98 12/29/19 11:20 36.7 C 72 18 178/61 H 97 Resident Activity Tracking Resident Involvement: Resident Care Provided Care Provided: Adult Hospital Medicine
[2019-12-29 22:02] LABS: Albumin Level 2.2 gm/dl (3.4-5.0); BUN Creatinine Ratio 18.6 (10-20); Calcium 8.1 mg/dl (8.5-10.1); Creatinine Clr Calc Pharmacy 46.9 ml/min; Est GFR (African American) 77.7; Magnesium 1.5 mg/dl (1.8-2.4); Potassium 4.5 mmol/L (3.5-5.1)
[2019-12-29 22:12] LABS: Albumin Globulin Ratio 0.9 (0.9-2); Bilirubin,Total 0.3 mg/dl (0.2-1); Globulin 2.6 gm/dl (2.5-4.0); Phosphorus 3.8 mg/dl (2.5-4.9); Total Protein 4.8 gm/dl (6.4-8.2); Troponin I 0.049 ng/ml (0-0.045)
[2019-12-29 23:04] LABS: Mean Corpuscular Hgb Conc 31.5 g/dL (32-36)
[2019-12-29] MEDS: MAGNESIUM SULFATE / D5W 1 GM/100 ML BAG IV SCH (23:37)
[2019-12-30] MEDS: MAGNESIUM SULFATE / D5W 1 GM/100 ML BAG IV SCH ×3 (01:37→05:27)
[2019-12-30 03:48] LABS: Hematocrit (blood only) 23.9 % (37-47); Hemoglobin 7.6 g/dL (12.0-16.0); Mean Corpuscular Hemoglobin 29.5 pg (25-34); Mean Corpuscular Hgb Conc 31.8 g/dL (32-36); Mean Corpuscular Volume 92.6 fL (80-100); Mean Platelet Volume 9.2 fL (7.4-10.4); Platelet Count 174 K/uL (130-400); RDW Coefficient of Variation 15.6 % (11.5-14.5); RDW Standard Deviation 52.8 fL (36.4-46.3); Red Blood Count 2.58 M/uL (4.2-5.4); White Blood Count 9.06 K/uL (4.8-10.8)
[2019-12-30 04:07] LABS: BUN Creatinine Ratio 22.6 (10-20); Calcium 7.9 mg/dl (8.5-10.1); Creatinine Clr Calc Pharmacy 47.5 ml/min; Est GFR (African American) 78.8; Magnesium 2.6 mg/dl (1.8-2.4); Potassium 4.8 mmol/L (3.5-5.1)
[2019-12-30 04:13] LABS: Phosphorus 3.4 mg/dl (2.5-4.9); Troponin I 0.059 ng/ml (0-0.045)
[2019-12-30] MEDS: SODIUM CHLORIDE 0.9% 1000ML 1,000 ML IV SCH (05:27)
[2019-12-30] MEDS: ACETAMINOPHEN 500 MG TAB PO SCH ×3 (05:28→21:32)
--- NOTE | 2019-12-30 05:39 | Communication Note ---
Date of Service: December 30, 2019 Notified that pt's hgb this AM was 7.6, down from 9.8 yesterday afternoon. Pt asymptomatic, comfortable and denies SOB or dizziness. BP currently 112/49. No indication to transfuse currently. Ordered repeat H/H for noon today. Consider transfusing if <7 on repeat or pt develops symptoms. Resident Activity Tracking Resident Involvement: Dinkey [employer] Coverage Note Care Provided: Adult Hospital Medicine
[2019-12-30] MEDS: DOCUSATE SODIUM 100 MG CAP PO SCH ×2 (07:50→19:59)
[2019-12-30] MEDS: AMIODARONE 200 MG TAB PO SCH (07:50)
[2019-12-30] MEDS: predniSONE 10 MG TABLET PO SCH (07:50)
[2019-12-30] MEDS: OXYBUTYNIN CHLORIDE 5 MG TAB PO SCH ×2 (07:51→20:00)
[2019-12-30] MEDS: PANTOprazole 40 MG TAB PO SCH ×2 (07:51→19:59)
[2019-12-30] MEDS: MULTIVITAMIN TAB PO SCH (07:51)
[2019-12-30] MEDS: METOPROLOL TARTRATE 25 MG TAB PO SCH ×2 (07:51→20:00)
[2019-12-30] MEDS: APIXABAN 5 MG TABLET PO SCH ×2 (07:51→19:58)
[2019-12-30] MEDS: GABAPENTIN 100 MG CAP PO SCH ×3 (07:52→20:01)
[2019-12-30] MEDS: CEFEPIME 2,000 MG in SYRINGE 7.5 ML IV SCH ×2 (08:23→20:02)
[2019-12-30] MEDS: OXYCODONE HCL IR 5 MG TAB (IMMEDIATE RELEASE) PO PRN ×3 (08:29→19:57)
[2019-12-30] MEDS ORDERED: predniSONE 5 MG TAB PO SCH (09:00)
--- NOTE | 2019-12-30 11:06 | Orthopedic Progress Note ---
Date of Service December 30, 2019 Assessment & Plan (1) Infection associated with internal right knee prosthesis: Status post revision of right knee antibiotic cement spacer, I&D. POD#1 -Vancomycin/ancef -DVT prophylaxis: SCDs, teds, Eliquis -Partial weightbearing right lower extremity -Maintain knee immobilizer at all times -Postoperative x-ray demonstrates a well aligned well fixed articulating antibiotic cement spacer without fracture dislocation -A.m. labs -Monitor drain output -Follow-up intraoperative cultures -Med recs appreciated, -DC planningwill require prolonged course of IV antibiotics x6 weeks, consultation with medicine in regards to perioperative management and recomme ndations. Patient follows infectious disease with [facility]. Admission and Anticipated Discharge Date Admission Date: December 29, 2019 Subjective Post Operative Progress Note Patient seen sitting up in bed, comfortable, denies complaints, pain well controlled, no acute issues. Patient was in good spirits in regards to knee surgery. Discussed I/O findings at length and plan moving forward Denies F/C/N/V/SOB/CP. Review of Systems Review of Systems: All systems reviewed & are unremarkable except as noted in HPI & below Constitutional: as per Subjective / HPI Physical Exam Physical Exam: RLE NVSI +EHL/FHL/TA/GS SILT grossly, +2 DP pulse, compartments soft NT, dressing cdi. KI in place Constitutional: WD/WN, vitals as above Results & Data ([facility]) Vital Signs (Past 12 Hours) Vital Signs Temp Pulse Pulse Resp BP Pulse Ox 12/30/19 08:05 36.5 C 71 16 133/54 L 94 12/30/19 05:35 112/49 L 12/30/19 03:57 37 C 70 18 102/52 L 94 12/30/19 00:00 76 12/29/19 23:42 36.7 C 71 16 122/67 93 (1) Infection associated with internal right knee prosthesis Encounter type: initial encounter Qualified Code(s): T84.53XA - Infection and inflammatory reaction due to internal right knee prosthesis, initial encounter
--- NOTE | 2019-12-30 11:39 | XCELERA ---
[id number]
[2019-12-30 12:09] LABS: Hematocrit (blood only) 22.5 % (37-47); Hemoglobin 7.2 g/dL (12.0-16.0)
--- NOTE | 2019-12-30 12:28 | Cardiology Progress Note ---
Date of Service December 30, 2019 Assessment & Plan (1) PAF (paroxysmal atrial fibrillation): -remains in sinus rhythm on amiodarone. -long-term anticoagulation with Eliquis (decreased hemoglobin noted). -could hold Eliquis if necessary in light of her anemia. (2) Paroxysmal SVT (supraventricular tachycardia): -no recent recurrence. (3) Hypertension: -adequate control on current regimen. (4) Infection of total right knee replacement: -management per Dr. Vela. (5) Acute blood loss anemia: -could consider blood transfusion. -could hold Eliquis. Admission and Anticipated Discharge Date Admission Date: December 29, 2019 Subjective The patient is resting comfortably in bed without complaints of chest pain, dyspnea, or palpitations. Postoperative pain adequately controlled. Physical Exam Physical Exam: In general this is a well-developed well-nourished white female in no acute distress. HEENT exam is negative. Neck is supple with full carotid upstrokes. There are no carotid bruits. Jugular venous pressure is flat at 90. There is no thyromegaly. Cardiovascular exam reveals a regular rhythm with a normal S1 and S2. Heart sounds are distant. No obvious murmurs. Lungs are clear without rales, rhonchi, or wheezes. Abdomen is soft and nontender without bruits. Extremities reveal intact radial artery pulses bilaterally. There is no peripheral edema. Right knee is dressed. [facility] Vital Signs (Past 12 Hours) Vital Signs Temp Pulse Resp BP Pulse Ox 12/30/19 11:38 37.0 C 101 H 16 118/51 L 95 12/30/19 08:05 36.5 C 71 16 133/54 L 94 12/30/19 05:35 112/49 L 12/30/19 03:57 37 C 70 18 102/52 L 94 Diagnostic Findings imaging scheduler notes sinus rhythm with occasional PACs. No atrial fibrillation. PG Care Time/CCT Total # of Minutes Spent Total Time Spent with Patient: Total time spent is greater than 50% in coordination of care (as documented) at patient's floor/unit and/or counseling patient: Coding Level of Care Code 19800 Subseq Hosp Care Lvl 3 Diagnoses PAF (paroxysmal atrial fibrillation) I48.0 Paroxysmal SVT (supraventricular tachycardia) I47.1 Hypertension I10 Infection of total right knee replacement T84.53XA Acute blood loss anemia D62
--- NOTE | 2019-12-30 14:17 | Hospitalist Progress Note ---
Date of Service December 30, 2019 Assessment & Plan (1) Infection associated with internal right knee prosthesis: S/p Right Total Knee Revision, Incision and Drainage with Antibiotic Cement Spacer(Right) with Dr. Vela on 12/28 - Now with Acute blood loss anemia -> Prior to surgery was 9.8; now down to 7.2 though without major symptoms. - Getting blood per primary team - Continue vanc/cefepime pending cultures (2) Hypertension: BP is 120/50 today. - Continue beta-sandro (3) PAF (paroxysmal atrial fibrillation): On amiodarone; remains in sinus. - Continue beta-sandro - Remains on Eliquis -> Could hold per cardiology (4) RA (rheumatoid arthritis): No active joints at present. - Continue prednisone at 10mg QAM and 2 mg QHS (twice her home dose) - If BP drops further and not responding to blood/fluids; could consider stress-dose steroids (hydrocortisone 100 mg IV once, then 50 mg IV Q6h). - Would not do this right now as she is symptom-free and BP is stable at 120/50 at present. (5) Overactive bladder: - Continue home oxybutynin (6) Hypoparathyroidism: - Continue home calcitriol (7) DVT prophylaxis: On Eliquis for afib Admission and Anticipated Discharge Date Admission Date: December 29, 2019 Subjective Doing well today. Minimal pain. Reports no fevers/chills, chest pain, shortness of breath, abdominal pain, nausea, or vomiting. Physical Exam Constitutional: WD/WN, vitals as above Eyes: EOM intact bilaterally; no conjunctival abnormality ENMT: external ear and nose normal, oropharynx normal Neck: trachea midline, no thyromegaly normal visual inspection Respiratory: normal respiratory effort, lungs clear to auscultation no respiratory distress Cardiovascular: RRR, no murmur, no edema Gastrointestinal (Abdomen): Inspection/Auscultation: abdomen normal to inspection; abdomen not distended Musculoskeletal: no cyanosis or clubbing, extremities motor strength 5/5 Extremities: + extremities abnormal to inspection (Right knee in immobilzer) Skin: no rashes, warm and dry Neurologic: moves all extremities and awake Psychiatric: Orientation: alert, oriented to person and cooperative Results & Data Results & Data ([facility]) Vital Signs (Past 12 Hours) Vital Signs Temp Pulse Pulse Resp BP Pulse Ox 12/30/19 12:00 66 12/30/19 11:38 37.0 C 101 H 16 118/51 L 95 12/30/19 08:05 36.5 C 71 16 133/54 L 94 12/30/19 05:35 112/49 L 12/30/19 03:57 37 C 70 18 102/52 L 94 PG Care Time/CCT Total # of Minutes Spent Total Time Spent with Patient: Total time spent is greater than 50% in coordination of care (as documented) at patient's floor/unit and/or counseling patient: Coding Level of Care Code 56869 Subseq Hosp Care Lvl 3 Diagnoses Infection associated with internal right knee prosthesis T84.53XA Encounter type: initial encounter Hypertension I10 PAF (paroxysmal atrial fibrillation) I48.0 RA (rheumatoid arthritis) M06.9 Overactive bladder N32.81 Hypoparathyroidism E20.9 DVT prophylaxis Z29.9 (1) Infection associated with internal right knee prosthesis Encounter type: initial encounter Qualified Code(s): T84.53XA - Infection and inflammatory reaction due to internal right knee prosthesis, initial encounter
--- NOTE | 2019-12-30 15:30 | Electrocardiogram Report ---
Test Reason : Blood Pressure : / mmHG Vent. Rate : 079 BPM Atrial Rate : 079 BPM P-R Int : 144 ms QRS Dur : 074 ms QT Int : 380 ms P-R-T Axes : 081 043 073 degrees QTc Int : 435 ms Sinus rhythm with marked sinus arrhythmia Nonspecific T wave abnormality Abnormal ECG When compared with ECG of 22-JUN-2019 01:35, Sinus rhythm has replaced Atrial fibrillation Vent. rate has decreased BY 63 BPM Nonspecific T wave abnormality no longer evident in Inferior leads Confirmed by Edd Vance ([id number]) on 12/30/2019 3:30:01 PM Referred By: Ihsan Vela Confirmed By:Edd Vance
[2019-12-30] MEDS ORDERED: VANCOMYCIN HCL 1,250 MG in SODIUM CHLORIDE 0.9% 250 ML IV SCH (19:00)
[2019-12-30] MEDS: predniSONE 1 MG TAB PO SCH (20:00)
[2019-12-30] MEDS: SENNA 8.6 MG TAB PO SCH ×2 (20:03→20:06)
[2019-12-31] MEDS: OXYCODONE HCL IR 5 MG TAB (IMMEDIATE RELEASE) PO PRN ×4 (03:07→21:02)
[2019-12-31] MEDS: ACETAMINOPHEN 500 MG TAB PO SCH ×3 (05:51→21:05)
[2019-12-31 06:59] LABS: Hematocrit (blood only) 21.5 % (37-47); Hemoglobin 6.7 g/dL (12.0-16.0); Mean Corpuscular Hgb Conc 31.2 g/dL (32-36); Mean Corpuscular Volume 93.1 fL (80-100); Mean Platelet Volume 9.3 fL (7.4-10.4); Platelet Count 197 K/uL (130-400); RDW Coefficient of Variation 16.6 % (11.5-14.5); RDW Standard Deviation 55.2 fL (36.4-46.3); Red Blood Count 2.31 M/uL (4.2-5.4); White Blood Count 9.31 K/uL (4.8-10.8)
[2019-12-31 07:26] LABS: Potassium 4.5 mmol/L (3.5-5.1)
[2019-12-31 07:27] LABS: BUN Creatinine Ratio 23.5 (10-20); Creatinine Clr Calc Pharmacy 61.8 ml/min; Est GFR (African American) 94.5; Est GFR (Non-African American) 81.5
[2019-12-31] MEDS: METOPROLOL TARTRATE 25 MG TAB PO SCH ×2 (08:34→21:05)
[2019-12-31] MEDS: MULTIVITAMIN TAB PO SCH (08:34)
[2019-12-31] MEDS: SENNA 8.6 MG TAB PO SCH (08:35)
[2019-12-31] MEDS: PANTOprazole 40 MG TAB PO SCH ×2 (08:36→21:04)
[2019-12-31] MEDS: GABAPENTIN 100 MG CAP PO SCH ×3 (08:36→21:04)
[2019-12-31] MEDS: OXYBUTYNIN CHLORIDE 5 MG TAB PO SCH ×2 (08:36→21:04)
[2019-12-31] MEDS: AMIODARONE 200 MG TAB PO SCH (08:36)
[2019-12-31] MEDS: APIXABAN 5 MG TABLET PO SCH ×2 (08:37→21:47)
[2019-12-31] MEDS: DOCUSATE SODIUM 100 MG CAP PO SCH ×2 (08:37→21:03)
[2019-12-31] MEDS: predniSONE 10 MG TABLET PO SCH (08:37)
--- NOTE | 2019-12-31 08:48 | Orthopedic Progress Note ---
Date of Service December 31, 2019 Assessment & Plan (1) Infection associated with internal right knee prosthesis: Status post revision of right knee antibiotic cement spacer, I&D. POD#2 -Vancomycin/cefipime -DVT prophylaxis: SCDs, teds, Eliquis -Partial weightbearing right lower extremity -Maintain knee immobilizer at all times -A.m. labs- HGB 6.7, spoke with Dr. Ribeiro, he will order transfusion. -Monitor drain output, 180cc last shift. -Follow-up intraoperative cultures, no growth per most recent labs. -Med recs appreciated, -DC planningwill require prolonged course of IV antibiotics x6 weeks, consultation with medicine in regards to perioperative management and recommendations. Patient follows infectious disease with [facility]. Admission and Anticipated Discharge Date Admission Date: December 29, 2019 Supervising Physician Co-Signing Physician Notes Patient seen and examined, agree with above assessment and plan. Subjective POD #2, c/o significant soreness mid dressing area. Dressing/ drain c/d/i. Drain output last shift 180cc. Denies SOB, CP, N/V, dizziness HGB 6.7 this AM Physical Exam Physical Exam: Right knee dressings c/d/i Toes/ ankle mobile. No calf tenderness. A&Ox3. Immobilizer in tact. Results & Data ([facility]) Vital Signs (Past 12 Hours) Vital Signs Temp Pulse Pulse Resp BP Pulse Ox 12/31/19 07:29 37.0 C 81 16 138/49 L 94 12/31/19 03:15 36.9 C 70 18 118/69 97 12/31/19 00:00 68 12/30/19 23:10 36.7 C 81 18 145/66 H 93 (1) Infection associated with internal right knee prosthesis Encounter type: initial encounter Qualified Code(s): T84.53XA - Infection and inflammatory reaction due to internal right knee prosthesis, initial encounter
[2019-12-31] MEDS ORDERED: SODIUM CHLORIDE 0.9% 250 ML IV PRN (09:04)
[2019-12-31] MEDS: CEFEPIME 2,000 MG in SYRINGE 7.5 ML IV SCH ×2 (09:28→21:03)
--- NOTE | 2019-12-31 11:37 | Orthopedic Progress Note ---
Date of Service December 31, 2019 Assessment & Plan (1) Infection associated with internal right knee prosthesis: Status post revision of right knee antibiotic cement spacer, I&D. POD#2 -Vancomycin/cefipime -PICC line ordered -DVT prophylaxis: SCDs, teds, Eliquis -Partial weightbearing right lower extremity -PT/OT -Maintain knee immobilizer at all times -A.m. labs- HGB 6.7, receiving 2 units PRBC -Monitor drain output, 180cc last shift. -Follow-up intraoperative cultures, no growth per most recent labs. -Med recs appreciated, -DC planningwill require prolonged course of IV antibiotics x6 weeks, consultation with medicine in regards to perioperative management and recommendations. Patient follows infectious disease with [facility]. POD#1 -Vancomycin/ancef -DVT prophylaxis: SCDs, teds, Eliquis -Partial weightbearing right lower extremity -Maintain knee immobilizer at all times -Postoperative x-ray demonstrates a well aligned well fixed articulating antibiotic cement spacer without fracture dislocation -A.m. labs -Monitor drain output -Follow-up intraoperative cultures -Med recs appreciated, -DC planningwill require prolonged course of IV antibiotics x6 weeks, consultation with medicine in regards to perioperative management and recommendations. Patient follows infectious disease with [facility]. Admission and Anticipated Discharge Date Admission Date: December 29, 2019 Subjective Post Operative Progress Note Patient seen sitting up in bed, comfortable, denies complaints, pain well controlled, no acute issues. Reports pain last night but much improved today on pain medication. Denies F/C/N/V/SOB/CP. Review of Systems Review of Systems: All systems reviewed & are unremarkable except as noted in HPI & below Constitutional: as per Subjective / HPI Physical Exam Physical Exam: RLE NVSI +EHL/FHL/TA/GS SILT grossly, +2 DP pulse, compartments soft NT, dressing cdi. KI and HMV drain intact Constitutional: WD/WN, vitals as above Results & Data ([facility]) Vital Signs (Past 12 Hours) Vital Signs Temp Pulse Pulse Resp BP BP Pulse Ox 12/31/19 10:45 36.7 C 75 16 109/64 95 12/31/19 10:29 36.7 C 102 H 18 111/65 92 12/31/19 10:02 36.6 C 102 H 18 134/62 92 12/31/19 07:29 37.0 C 81 16 138/49 L 94 12/31/19 03:15 36.9 C 70 18 118/69 97 12/31/19 00:00 68 Laboratory Results 12/31/19 12/31/19 12/31/19 Range/Units 06:15 06:15 06:15 WBC (4.8-10.8) K/uL RBC (4.2-5.4) M/uL Hgb (12.0-16.0) g/dL Hct (37-47) % MCV (80-100) fL MCH (25-34) pg MCHC (32-36) g/dL RDW Std Deviation (36.4-46.3) fL RDW Coeff of Jarvis (11.5-14.5) % Plt Count (130-400) K/uL MPV (7.4-10.4) fL ESR 2 (0-21) mm/hr Sodium 144 (136-145) mmol/L Potassium 4.5 (3.5-5.1) mmol/L Chloride 115 H (98-107) mmol/L Carbon Dioxide 28 (21-32) mmol/L Anion Gap 1.0 L (3-11) BUN 17 (7-18) mg/dl Creatinine 0.74 (0.6-1.2) mg/dl Est Cr Clr Drug Dosing 61.8 ml/min Est GFR ( Amer) 94.5 Est GFR (Non-Af Amer) 81.5 BUN/Creatinine Ratio 23.5 H (10-20) Glucose 86 (70-99) mg/dl Calcium 8.0 L (8.5-10.1) mg/dl C-Reactive Protein 2.05 H (0-0.29) mg/dl Blood Type Antibody Screen Crossmatch 12/31/19 12/30/19 12/29/19 Range/Units 06:15 11:48 11:14 WBC 9.31 (4.8-10.8) K/uL RBC 2.31 L (4.2-5.4) M/uL Hgb 6.7 L* 7.2 L (12.0-16.0) g/dL Hct 21.5 L 22.5 L (37-47) % MCV 93.1 (80-100) fL MCH 29.0 (25-34) pg MCHC 31.2 L (32-36) g/dL RDW Std Deviation 55.2 H (36.4-46.3) fL RDW Coeff of Jarvis 16.6 H (11.5-14.5) % Plt Count 197 (130-400) K/uL MPV 9.3 (7.4-10.4) fL ESR (0-21) mm/hr Sodium (136-145) mmol/L Potassium (3.5-5.1) mmol/L Chloride (98-107) mmol/L Carbon Dioxide (21-32) mmol/L Anion Gap (3-11) BUN (7-18) mg/dl Creatinine (0.6-1.2) mg/dl Est Cr Clr Drug Dosing ml/min Est GFR ( Amer) Est GFR (Non-Af Amer) BUN/Creatinine Ratio (10-20) Glucose (70-99) mg/dl Calcium (8.5-10.1) mg/dl C-Reactive Protein (0-0.29) mg/dl Blood Type O Positive Antibody Screen NEGATIVE Crossmatch See Detail (1) Infection associated with internal right knee prosthesis Encounter type: initial encounter Qualified Code(s): T84.53XA - Infection and inflammatory reaction due to internal right knee prosthesis, initial encounter
[2019-12-31] MEDS: HYDROmorphone INJ 0.5 MG/0.5 ML SYR IV PRN (13:37)
[2019-12-31] MEDS: VANCOMYCIN HCL 750 MG in SODIUM CHLORIDE 0.9% 250 ML IV SCH (13:37)
--- NOTE | 2019-12-31 16:24 | Hospitalist Progress Note ---
Date of Service December 31, 2019 Assessment & Plan (1) Infection associated with internal right knee prosthesis: S/p Right Total Knee Revision, Incision and Drainage with Antibiotic Cement Spacer(Right) with Dr. Vela on 12/28 - Now with Acute blood loss anemia -> Prior to surgery was 9.8; now down to 6.7. - Getting blood on 12/30; will get 2 units PRBCs - Could also get IV iron if needed - Continue vanc/cefepime pending cultures -> All cultures from most recent surgery negative to date. (2) Hypertension: BP is 130/70 today. - Continue beta-sandro (3) PAF (paroxysmal atrial fibrillation): On amiodarone; remains in sinus. - Continue beta-sandro - Remains on Eliquis -> Could hold per cardiology. If counts drop significantly tomorrow, will probably hold for 2-3 days. (4) RA (rheumatoid arthritis): No active joints at present. - Continue prednisone at 10mg QAM and 2 mg QHS (twice her home dose) - If BP drops further and not responding to blood/fluids; could consider stress-dose steroids (hydrocortisone 100 mg IV once, then 50 mg IV Q6h). - Would not do this right now as she is symptom-free and BP is stable at 130/70 at present. (5) Overactive bladder: - Continue home oxybutynin (6) Hypoparathyroidism: - Continue home calcitriol (7) DVT prophylaxis: On Eliquis for afib Admission and Anticipated Discharge Date Admission Date: December 29, 2019 Subjective In pain this morning, to the point of crying. Rough night last night with trouble sleeping. Ortho may pull the drain. Reports no fevers/chills, chest pain, shortness of breath, abdominal pain, nausea, or vomiting. Physical Exam Constitutional: WD/WN, vitals as above Eyes: EOM intact bilaterally; no conjunctival abnormality ENMT: external ear and nose normal, oropharynx normal Neck: trachea midline, no thyromegaly normal visual inspection Respiratory: normal respiratory effort, lungs clear to auscultation no respiratory distress Cardiovascular: RRR, no murmur, no edema Gastrointestinal (Abdomen): Inspection/Auscultation: abdomen normal to inspection; abdomen not distended Musculoskeletal: no cyanosis or clubbing, extremities motor strength 5/5 Extremities: + extremities abnormal to inspection (Right knee in immobilzer) Skin: no rashes, warm and dry Neurologic: moves all extremities and awake Psychiatric: Orientation: alert, oriented to person and cooperative Results & Data Results & Data ([facility]) Vital Signs (Past 12 Hours) Vital Signs Temp Pulse Pulse Resp BP BP Pulse Ox 12/31/19 15:52 37.0 C 74 16 128/72 95 12/31/19 15:00 76 12/31/19 11:15 36.8 C 79 20 120/48 L 95 12/31/19 10:45 36.7 C 75 16 109/64 95 12/31/19 10:29 36.7 C 102 H 18 111/65 92 12/31/19 10:02 36.6 C 102 H 18 134/62 92 12/31/19 07:29 37.0 C 81 16 138/49 L 94 PG Care Time/CCT Total # of Minutes Spent Total Time Spent with Patient: Total time spent is greater than 50% in coordination of care (as documented) at patient's floor/unit and/or counseling patient: Coding Level of Care Code 85090 Subseq Hosp Care Lvl 2 Diagnoses Infection associated with internal right knee prosthesis T84.53XA Encounter type: initial encounter Hypertension I10 PAF (paroxysmal atrial fibrillation) I48.0 RA (rheumatoid arthritis) M06.9 Overactive bladder N32.81 Hypoparathyroidism E20.9 DVT prophylaxis Z29.9 (1) Infection associated with internal right knee prosthesis Encounter type: initial encounter Qualified Code(s): T84.53XA - Infection and inflammatory reaction due to internal right knee prosthesis, initial encounter
[2019-12-31] MEDS: predniSONE 1 MG TAB PO SCH (21:05)
[2020-01-01] MEDS: VANCOMYCIN HCL 750 MG in SODIUM CHLORIDE 0.9% 250 ML IV SCH ×2 (01:27→13:41)
[2020-01-01] MEDS: ACETAMINOPHEN 500 MG TAB PO SCH ×3 (05:53→22:18)
[2020-01-01 06:15] LABS: Hematocrit (blood only) 32.5 % (37-47); Hemoglobin 10.3 g/dL (12.0-16.0); Mean Corpuscular Hemoglobin 28.8 pg (25-34); Mean Corpuscular Hgb Conc 31.7 g/dL (32-36); Mean Corpuscular Volume 90.8 fL (80-100); Mean Platelet Volume 9.7 fL (7.4-10.4); Nucleated RBC # (auto) 0.06 K/uL (0-0); Nucleated RBC % (auto) 0.5 %; Platelet Count 197 K/uL (130-400); RDW Coefficient of Variation 17.3 % (11.5-14.5); RDW Standard Deviation 56.5 fL (36.4-46.3); Red Blood Count 3.58 M/uL (4.2-5.4); White Blood Count 11.86 K/uL (4.8-10.8)
[2020-01-01 06:46] LABS: BUN Creatinine Ratio 21.1 (10-20); Calcium 8.8 mg/dl (8.5-10.1); Creatinine Clr Calc Pharmacy 74.8 ml/min; Est GFR (African American) 105.7; Est GFR (Non-African American) 91.2; Potassium 4.3 mmol/L (3.5-5.1)
[2020-01-01] MEDS: DOCUSATE SODIUM 100 MG CAP PO SCH ×2 (08:10→20:50)
[2020-01-01] MEDS: AMIODARONE 200 MG TAB PO SCH (08:10)
[2020-01-01] MEDS: PANTOprazole 40 MG TAB PO SCH ×2 (08:10→20:51)
[2020-01-01] MEDS: GABAPENTIN 100 MG CAP PO SCH ×3 (08:10→20:51)
[2020-01-01] MEDS: METOPROLOL TARTRATE 25 MG TAB PO SCH ×2 (08:11→20:49)
[2020-01-01] MEDS: MULTIVITAMIN TAB PO SCH (08:11)
[2020-01-01] MEDS: predniSONE 10 MG TABLET PO SCH (08:11)
[2020-01-01] MEDS: OXYBUTYNIN CHLORIDE 5 MG TAB PO SCH ×2 (08:12→20:50)
[2020-01-01] MEDS: APIXABAN 5 MG TABLET PO SCH ×2 (08:12→20:51)
[2020-01-01] MEDS: OXYCODONE HCL IR 5 MG TAB (IMMEDIATE RELEASE) PO PRN ×4 (08:18→22:07)
[2020-01-01] MEDS: CEFEPIME 2,000 MG in SYRINGE 7.5 ML IV SCH ×2 (09:17→20:48)
[2020-01-01] MEDS ORDERED: VANCOMYCIN TROUGH ONE ×3 (09:30→18:30)
--- NOTE | 2020-01-01 09:35 | Orthopedic Progress Note ---
Date of Service January 01, 2020 Assessment & Plan (1) Infection associated with internal right knee prosthesis: Status post revision of right knee antibiotic cement spacer, I&D. POD#3 -Vancomycin/cefipime -PICC line placed -DVT prophylaxis: SCDs, teds, Eliquis -Partial weightbearing right lower extremity -PT/OT -Maintain knee immobilizer at all times -A.m. labs- HGB 10.3, received 2 units of PRBC on 12/30 -drain DCd -Follow-up intraoperative cultures, no growth per most recent labs. -Med recs appreciated, -DC planningwill require prolonged course of IV antibiotics x6 weeks, consultation with medicine in regards to perioperative management and recommendations. Patient follows infectious disease with [facility]. POD#2 -Vancomycin/cefipime -PICC line ordered -DVT prophylaxis: SCDs, teds, Eliquis -Partial weightbearing right lower extremity -PT/OT -Maintain knee immobilizer at all times -A.m. labs- HGB 6.7, receiving 2 units PRBC -Monitor drain output, 180cc last shift. -Follow-up intraoperative cultures, no growth per most recent labs. -Med recs appreciated, -DC planningwill require prolonged course of IV antibiotics x6 weeks, consultation with medicine in regards to perioperative management and recommendations. Patient follows infectious disease with [facility]. POD#1 -Vancomycin/ancef -DVT prophylaxis: SCDs, teds, Eliquis -Partial weightbearing right lower extremity -Maintain knee immobilizer at all times -Postoperative x-ray demonstrates a well aligned well fixed articulating antibiotic cement spacer without fracture dislocation -A.m. labs -Monitor drain output -Follow-up intraoperative cultures -Med recs appreciated, -DC planningwill require prolonged course of IV antibiotics x6 weeks, consultation with medicine in regards to perioperative management and recommendations. Patient follows infectious disease with [facility]. Admission and Anticipated Discharge Date Admission Date: December 29, 2019 Subjective Post Operative Progress Note Patient seen sitting up in bed, comfortable, denies complaints, pain well controlled, no acute issues overnight. Patient in good spirits. Denies F/C/N/V/SOB/CP. Review of Systems Review of Systems: All systems reviewed & are unremarkable except as noted in HPI & below Constitutional: as per Subjective / HPI Physical Exam Physical Exam: RLE NVSI +EHL/FHL/TA/GS SILT grossly, +2 DP pulse, compartments soft NT, incision and drain site cdi Constitutional: WD/WN, vitals as above Results & Data ([facility]) Vital Signs (Past 12 Hours) Vital Signs Temp Pulse Resp BP Pulse Ox 01/01/20 08:58 73 01/01/20 07:37 36.9 C 83 16 156/67 H 94 01/01/20 03:05 36.6 C 62 18 121/62 92 12/31/19 23:16 36.9 C 71 18 146/71 H 96 Laboratory Results 01/01/20 01/01/20 12/31/19 Range/Units 05:47 05:47 06:15 WBC 11.86 H (4.8-10.8) K/uL RBC 3.58 L (4.2-5.4) M/uL Hgb 10.3 L D (12.0-16.0) g/dL Hct 32.5 L (37-47) % MCV 90.8 (80-100) fL MCH 28.8 (25-34) pg MCHC 31.7 L (32-36) g/dL RDW Std Deviation 56.5 H (36.4-46.3) fL RDW Coeff of Jarvis 17.3 H (11.5-14.5) % Plt Count 197 (130-400) K/uL MPV 9.7 (7.4-10.4) fL Absolute Nucleated RBC 0.06 H (0-0) K/uL Nucleated RBC % (auto) 0.5 % ESR (0-21) mm/hr Sodium 142 (136-145) mmol/L Potassium 4.3 (3.5-5.1) mmol/L Chloride 112 H (98-107) mmol/L Carbon Dioxide 26 (21-32) mmol/L Anion Gap 5.0 (3-11) BUN 13 (7-18) mg/dl Creatinine 0.61 (0.6-1.2) mg/dl Est Cr Clr Drug Dosing 74.8 ml/min Est GFR ( Amer) 105.7 Est GFR (Non-Af Amer) 91.2 BUN/Creatinine Ratio 21.1 H (10-20) Glucose 85 (70-99) mg/dl Calcium 8.8 (8.5-10.1) mg/dl C-Reactive Protein 2.05 H (0-0.29) mg/dl Blood Type Antibody Screen Crossmatch 12/31/19 12/29/19 Range/Units 06:15 11:14 WBC (4.8-10.8) K/uL RBC (4.2-5.4) M/uL Hgb (12.0-16.0) g/dL Hct (37-47) % MCV (80-100) fL MCH (25-34) pg MCHC (32-36) g/dL RDW Std Deviation (36.4-46.3) fL RDW Coeff of Jarvis (11.5-14.5) % Plt Count (130-400) K/uL MPV (7.4-10.4) fL Absolute Nucleated RBC (0-0) K/uL Nucleated RBC % (auto) % ESR 2 (0-21) mm/hr Sodium (136-145) mmol/L Potassium (3.5-5.1) mmol/L Chloride (98-107) mmol/L Carbon Dioxide (21-32) mmol/L Anion Gap (3-11) BUN (7-18) mg/dl Creatinine (0.6-1.2) mg/dl Est Cr Clr Drug Dosing ml/min Est GFR ( Amer) Est GFR (Non-Af Amer) BUN/Creatinine Ratio (10-20) Glucose (70-99) mg/dl Calcium (8.5-10.1) mg/dl C-Reactive Protein (0-0.29) mg/dl Blood Type O Positive Antibody Screen NEGATIVE Crossmatch See Detail (1) Infection associated with internal right knee prosthesis Encounter type: initial encounter Qualified Code(s): T84.53XA - Infection and inflammatory reaction due to internal right knee prosthesis, initial encounter
--- NOTE | 2020-01-01 12:58 | Hospitalist Progress Note ---
Date of Service January 01, 2020 Assessment & Plan (1) Infection associated with internal right knee prosthesis: S/p Right Total Knee Revision, Incision and Drainage with Antibiotic Cement Spacer(Right) with Dr. Vela on 12/28 - Now with Acute blood loss anemia -> Prior to surgery was 9.8; now down to 6.7. - Getting blood on 12/30; will get 2 units PRBCs. Bumped to 10.3 today. - Could also get IV iron if needed - Continue vanc/cefepime pending cultures -> All cultures from most recent s urgery negative to date. (2) Hypertension: BP is 155/70 today. - Continue beta-sandro (3) PAF (paroxysmal atrial fibrillation): On amiodarone; remains in sinus. - Continue beta-sandro - Remains on Eliquis -> Could temporarily hold per cardiology; however, will continue today as Dr. Vela feels surgical site looks good and not bleeding. (4) RA (rheumatoid arthritis): No active joints at present. - Continue prednisone at 10mg QAM and 2 mg QHS (twice her home dose) - If BP drops and not responding to blood/fluids; could consider stress-dose steroids (hydrocortisone 100 mg IV once, then 50 mg IV Q6h). - Would not do this right now as she is symptom-free and BP is stable at present. (5) Overactive bladder: - Continue home oxybutynin (6) Hypoparathyroidism: - Continue home calcitriol (7) DVT prophylaxis: On Eliquis for afib Admission and Anticipated Discharge Date Admission Date: December 29, 2019 Subjective Reports heartburn overnight and less so this morning. Improved with breakfast. Reports no fevers/chills, chest pain, shortness of breath, abdominal pain, nausea, or vomiting. Physical Exam Constitutional: WD/WN, vitals as above Eyes: EOM intact bilaterally; no conjunctival abnormality ENMT: external ear and nose normal, oropharynx normal Neck: trachea midline, no thyromegaly normal visual inspection Respiratory: normal respiratory effort, lungs clear to auscultation no respiratory distress Cardiovascular: RRR, no murmur, no edema Gastrointestinal (Abdomen): Inspection/Auscultation: abdomen normal to inspection; abdomen not distended Musculoskeletal: no cyanosis or clubbing, extremities motor strength 5/5 Extremities: + extremities abnormal to inspection (Right knee in immobilzer) Skin: no rashes, warm and dry Neurologic: moves all extremities and awake Psychiatric: Orientation: alert, oriented to person and cooperative Results & Data Results & Data ([facility]) Vital Signs (Past 12 Hours) Vital Signs Temp Pulse Resp BP Pulse Ox 01/01/20 08:58 73 01/01/20 07:37 36.9 C 83 16 156/67 H 94 01/01/20 03:05 36.6 C 62 18 121/62 92 PG Care Time/CCT Total # of Minutes Spent Total Time Spent with Patient: Total time spent is greater than 50% in coordination of care (as documented) at patient's floor/unit and/or counseling patient: Coding Level of Care Code 74670 Subseq Hosp Care Lvl 2 Diagnoses Infection associated with internal right knee prosthesis T84.53XA Encounter type: initial encounter Hypertension I10 PAF (paroxysmal atrial fibrillation) I48.0 RA (rheumatoid arthritis) M06.9 Overactive bladder N32.81 Hypoparathyroidism E20.9 DVT prophylaxis Z29.9 (1) Infection associated with internal right knee prosthesis Encounter type: initial encounter Qualified Code(s): T84.53XA - Infection and inflammatory reaction due to internal right knee prosthesis, initial encounter
[2020-01-01] MEDS ORDERED: CALCIUM CARBONATE 500 MG CHEWABLE TAB PO PRN (12:59)
--- NOTE | 2020-01-01 13:57 | Pharmacy Report ---
Pharmacy Abx Dose Short Note - Date of Service January 01, 2020 - Assessment & Plan Laboratory Tests 01/01/20 12:37 Vancomycin Trough 17.3 Assessment 69 year old F receiving Vancomycin 750mg IV q12h for treatment of Prosthetic joint infection. Knee culture and synovial fluid NGTD. Patient also receiving Cefepime 2gram IV q12 Day #4 of antimicrobial therapy. Plan Vancomycin Patient meets criteria for vancomycin AUC dosing nomogram AUC/ANUSHA is the preferred PK/PD target for vancomycin Target AUC/ANUSHA = 400-600 Trough level of 17.3 mcg/mL is predicted to achieve target AUC/ANUSHA AUC guided dosing is effective and associated with decreased risk of nephrotoxicity * Continue dose of 750mg IV every 12 hours * Goal trough level for Joint Infection: 15 to 20 mcg/mL * Trough level ordered for: 01/02/20 at 2330 Pharmacy will continue to follow and will adjust dose/frequency as necessary. Thank you.
[2020-01-01] MEDS: SENNA 8.6 MG TAB PO SCH (20:50)
[2020-01-01] MEDS: predniSONE 1 MG TAB PO SCH (21:59)
[2020-01-02] MEDS ORDERED: VANCOMYCIN TROUGH ONE ×2 (00:30→23:30)
[2020-01-02] MEDS: VANCOMYCIN HCL 750 MG in SODIUM CHLORIDE 0.9% 250 ML IV SCH ×2 (01:54→12:55)
[2020-01-02] MEDS: FAMOTIDINE 20 MG TAB PO PRN (01:54)
[2020-01-02 06:30] LABS: Hematocrit (blood only) 29.8 % (37-47); Hemoglobin 9.6 g/dL (12.0-16.0); Mean Corpuscular Hemoglobin 29.7 pg (25-34); Mean Corpuscular Hgb Conc 32.2 g/dL (32-36); Mean Corpuscular Volume 92.3 fL (80-100); Mean Platelet Volume 10.1 fL (7.4-10.4); Platelet Count 191 K/uL (130-400); RDW Coefficient of Variation 17.3 % (11.5-14.5); RDW Standard Deviation 57.2 fL (36.4-46.3); Red Blood Count 3.23 M/uL (4.2-5.4); White Blood Count 7.92 K/uL (4.8-10.8)
[2020-01-02] MEDS: ACETAMINOPHEN 500 MG TAB PO SCH ×3 (06:30→22:54)
[2020-01-02 07:05] LABS: BUN Creatinine Ratio 20.7 (10-20); Calcium 8.6 mg/dl (8.5-10.1); Est GFR (African American) 101.5; Est GFR (Non-African American) 87.6; Potassium 4.4 mmol/L (3.5-5.1)
--- NOTE | 2020-01-02 07:08 | Orthopedic Progress Note ---
Date of Service January 02, 2020 Assessment & Plan (1) Infection associated with internal right knee prosthesis: Status post revision of right knee antibiotic cement spacer, I&D. POD#4 -Vancomycin/cefipime -Trough 17.3 -PICC line placed -DVT prophylaxis: SCDs, teds, Eliquis -Partial weightbearing right lower extremity -PT/OT -Maintain knee immobilizer at all times, may remove for hygiene purposes -A.m. labs- HGB 9.6, received 2 units of PRBC on 12/30, trend inflammatory labs -Follow-up intraoperative cultures, no growth per most recent labs. -Med recs appreciated, -DC planningwill require prolonged course of IV antibiotics x6 weeks, consultation with medicine in regards to perioperative management and recommendations. Patient follows infectious disease with [facility]. POD#3 -Vancomycin/cefipime -PICC line placed -DVT prophylaxis: SCDs, teds, Eliquis -Partial weightbearing right lower extremity -PT/OT -Maintain knee immobilizer at all times -A.m. labs- HGB 10.3, received 2 units of PRBC on 12/30 -drain DCd -Follow-up intraoperative cultures, no growth per most recent labs. -Med recs appreciated, -DC planningwill require prolonged course of IV antibiotics x6 weeks, consultation with medicine in regards to perioperative management and recommendations. Patient follows infectious disease with [facility]. POD#2 -Vancomycin/cefipime -PICC line ordered -DVT prophylaxis: SCDs, teds, Eliquis -Partial weightbearing right lower extremity -PT/OT -Maintain knee immobilizer at all times -A.m. labs- HGB 6.7, receiving 2 units PRBC -Monitor drain output, 180cc last shift. -Follow-up intraoperative cultures, no growth per most recent labs. -Med recs appreciated, -DC planningwill require prolonged course of IV antibiotics x6 weeks, consultation with medicine in regards to perioperative management and recommendations. Patient follows infectious disease with [facility]. POD#1 -Vancomycin/ancef -DVT prophylaxis: SCDs, teds, Eliquis -Partial weightbearing right lower extremity -Maintain knee immobilizer at all times -Postoperative x-ray demonstrates a well aligned well fixed articulating antibiotic cement spacer without fracture dislocation -A.m. labs -Monitor drain output -Follow-up intraoperative cultures -Med recs appreciated, -DC planningwill require prolonged course of IV antibiotics x6 weeks, consultation with medicine in regards to perioperative management and recommendations. Patient follows infectious disease with [facility]. Admission and Anticipated Discharge Date Admission Date: December 29, 2019 Subjective Post Operative Progress Note Patient seen sitting up in bed, comfortable, denies complaints, pain well controlled, no acute issues overnight. Denies F/C/N/V/SOB/CP. Review of Systems Review of Systems: All systems reviewed & are unremarkable except as noted in HPI & below Constitutional: as per Subjective / HPI Physical Exam Physical Exam: RLE NVSI +EHL/FHL/TA/GS SILT grossly, +2 DP pulse, compartments soft NT, dressing cdi. KI in place Constitutional: WD/WN, vitals as above Results & Data ([facility]) Vital Signs (Past 12 Hours) Vital Signs Temp Pulse Resp BP Pulse Ox 01/02/20 03:20 36.6 C 67 16 122/64 96 01/01/20 23:31 36.9 C 71 20 134/65 94 01/01/20 19:27 36.7 C 80 18 132/61 95 Laboratory Results 01/02/20 01/02/20 01/01/20 Range/Units 05:50 05:50 12:37 WBC 7.92 (4.8-10.8) K/uL RBC 3.23 L (4.2-5.4) M/uL Hgb 9.6 L (12.0-16.0) g/dL Hct 29.8 L (37-47) % MCV 92.3 (80-100) fL MCH 29.7 (25-34) pg MCHC 32.2 (32-36) g/dL RDW Std Deviation 57.2 H (36.4-46.3) fL RDW Coeff of Jarvis 17.3 H (11.5-14.5) % Plt Count 191 (130-400) K/uL MPV 10.1 (7.4-10.4) fL Sodium 143 (136-145) mmol/L Potassium 4.4 (3.5-5.1) mmol/L Chloride 112 H (98-107) mmol/L Carbon Dioxide 27 (21-32) mmol/L Anion Gap 4.0 (3-11) BUN 14 (7-18) mg/dl Creatinine 0.69 (0.6-1.2) mg/dl Est Cr Clr Drug Dosing 66.0 ml/min Est GFR ( Amer) 101.5 Est GFR (Non-Af Amer) 87.6 BUN/Creatinine Ratio 20.7 H (10-20) Glucose 80 (70-99) mg/dl Calcium 8.6 (8.5-10.1) mg/dl Vancomycin Trough 17.3 (See Comment) mcg/ml Crossmatch 12/29/19 Range/Units 11:14 WBC (4.8-10.8) K/uL RBC (4.2-5.4) M/uL Hgb (12.0-16.0) g/dL Hct (37-47) % MCV (80-100) fL MCH (25-34) pg MCHC (32-36) g/dL RDW Std Deviation (36.4-46.3) fL RDW Coeff of Jarvis (11.5-14.5) % Plt Count (130-400) K/uL MPV (7.4-10.4) fL Sodium (136-145) mmol/L Potassium (3.5-5.1) mmol/L Chloride (98-107) mmol/L Carbon Dioxide (21-32) mmol/L Anion Gap (3-11) BUN (7-18) mg/dl Creatinine (0.6-1.2) mg/dl Est Cr Clr Drug Dosing ml/min Est GFR ( Amer) Est GFR (Non-Af Amer) BUN/Creatinine Ratio (10-20) Glucose (70-99) mg/dl Calcium (8.5-10.1) mg/dl Vancomycin Trough (See Comment) mcg/ml Crossmatch See Detail (1) Infection associated with internal right knee prosthesis Encounter type: initial encounter Qualified Code(s): T84.53XA - Infection and inflammatory reaction due to internal right knee prosthesis, initial encounter
[2020-01-02] MEDS: METOPROLOL TARTRATE 25 MG TAB PO SCH ×2 (08:23→20:43)
[2020-01-02] MEDS: DOCUSATE SODIUM 100 MG CAP PO SCH ×2 (08:23→20:42)
[2020-01-02] MEDS: GABAPENTIN 100 MG CAP PO SCH ×3 (08:24→20:43)
[2020-01-02] MEDS: predniSONE 10 MG TABLET PO SCH (08:24)
[2020-01-02] MEDS: MULTIVITAMIN TAB PO SCH (08:24)
[2020-01-02] MEDS: AMIODARONE 200 MG TAB PO SCH (08:24)
[2020-01-02] MEDS: OXYBUTYNIN CHLORIDE 5 MG TAB PO SCH ×2 (08:24→20:41)
[2020-01-02] MEDS: APIXABAN 5 MG TABLET PO SCH ×2 (08:25→20:41)
[2020-01-02] MEDS: PANTOprazole 40 MG TAB PO SCH ×2 (08:25→20:43)
[2020-01-02] MEDS: OXYCODONE HCL IR 5 MG TAB (IMMEDIATE RELEASE) PO PRN ×3 (08:36→20:39)
[2020-01-02] MEDS: CEFEPIME 2,000 MG in SYRINGE 7.5 ML IV SCH ×2 (08:37→20:39)
--- NOTE | 2020-01-02 12:59 | Cardiology Progress Note ---
Date of Service January 02, 2020 Assessment & Plan (1) PAF (paroxysmal atrial fibrillation): -remains in sinus rhythm on amiodarone. -long-term anticoagulation with Eliquis. (2) Paroxysmal SVT (supraventricular tachycardia): -no recent recurrence. (3) Hypertension: -adequate control. (4) Infection of total right knee replacement: -management per Dr. Vela. (5) Acute blood loss anemia: -s/p 2 units packed red cells. Admission and Anticipated Discharge Date Admission Date: December 29, 2019 Subjective The patient is resting comfortably in the bedside chair without complaints of chest pain or dyspnea. Physical Exam Physical Exam: In general this is a well-developed well-nourished white female in no acute distress. HEENT exam is negative. Neck is supple with full carotid upstrokes. There are no carotid bruits. No JVD. There is no thyromegaly. Cardiovascular exam reveals a regular rhythm with a normal S1 and S2. Heart sounds are distant. No obvious murmurs. Lungs are clear without rales, rhonchi, or wheezes. Abdomen is soft and nontender without bruits. Extremities reveal intact radial artery pulses bilaterally. There is no peripheral edema. Right knee is dressed. Results & Data ([facility]) Vital Signs (Past 12 Hours) Vital Signs Temp Pulse Resp BP Pulse Ox 01/02/20 11:24 36.6 C 76 18 112/66 95 01/02/20 07:23 72 01/02/20 07:13 37 C 66 18 130/72 96 01/02/20 03:20 36.6 C 67 16 122/64 96 PG Care Time/CCT Total # of Minutes Spent Total Time Spent with Patient: Total time spent is greater than 50% in coordination of care (as documented) at patient's floor/unit and/or counseling patient: Coding Level of Care Code 09596 Subseq Hosp Care Lvl 3 Diagnoses PAF (paroxysmal atrial fibrillation) I48.0 Paroxysmal SVT (supraventricular tachycardia) I47.1 Hypertension I10 Infection of total right knee replacement T84.53XA Acute blood loss anemia D62
--- NOTE | 2020-01-02 13:27 | Hospitalist Progress Note ---
Date of Service January 02, 2020 Assessment & Plan (1) Infection associated with internal right knee prosthesis: * POD #4 S/p Right Total Knee Revision, Incision and Drainage with Antibiotic Cement Spacer(Right) with Dr. Vela on 12/28. Pre-op h/h 13.4/42.6 but was 9.8/31 just prior to surgery * Acute blood loss anemia in conjunction with dilution from IVF resulted in drop in h/h to 6.7/21.5 --> patient received 2 units PRBC with improvement of h/h to 10.3/32.5 * H/h dropped, but stable at 9.6/29.8 * If continues to drop, consider IV iron infusions * PT/OT/Pain management/DVT prophylaxis per surgical team * Continue IV Vancomycin/Cefepime for now --> all recent cultures negative to date, however patient was on IV Daptomycin prior to procedure. -- Discussed case with patient's new ID provider Dr. Govind Paul at [facility] who stated that if aspiration of fluid prior to procedure negative, then he would not recommend further antibiotics at this time, and believes that coag negative staff is likely a contaminant give prior history of cultures with such -- Discussed case with attending, Dr. Vela, who would like to treat as a culture negative persistent infection due to high cell count in the knee as well as intraoperative findings, including pus like material femoral canal and have already placed antibiotic cement spacer Nasal MRSA swab pending Could consider switching to IV Dapto rather than Vanco for ease of administration once daily, continue Cefepime for now Will reach back out to ID tomorrow ESR 21, although CRP elevated at 13.5-- trend inflammatory markers Will assist CM with antibiotics and prescription (2) Hypertension: * Chronic. Stable * Currently 121/59 * Continue metoprolol 12.5mg BID * Continue to monitor (3) PAF (paroxysmal atrial fibrillation): * On amiodarone; remains in sinus, 60bpms with PACs, 60-70s overnight * Continue metoprolol as above * Continue Eliquis per Dr. Vela (4) RA (rheumatoid arthritis): * No active joints at present. * Continue prednisone at 10mg QAM and 2 mg QHS (twice her home dose)--> can go back down to usual dose tomorrow If BP drops and not responding to blood/fluids; could consider stress-dose steroids (hydrocortisone 100 mg IV once, then 50 mg IV Q6h) Would not do this right now as she is symptom-free and BP is stable at present. (5) Overactive bladder: * Continue home oxybutynin (6) Hypoparathyroidism: * Continue home calcitriol (7) UTI (urinary tract infection): * On pre-op labs -- E.Coli, pansensitive except to ampicillin/sulbactam * Had been sent rx for Keflex but only had received 1-2 doses. * Continue cefepime as above for joint infection -- will need to consider this when selected abx choice and treat separately (8) DVT prophylaxis: * Eliquis for hx afib Dispo: continued stay Admission and Anticipated Discharge Date Admission Date: December 29, 2019 Supervising Physician Co-Signing Physician Notes PA Supervision Note: I did not personally see or examine the patient today, but I verified all chapman points of KARINA Marquez's assessment and plan with the following exceptions/additions: None Subjective Patient evaluated this morning. Minimal pain, tolerable with pain medications. Per patient, she had previously been seen by [facility] after having been followed by Dr. Wilson/Dr. Deleon. She states she had one teleconference but has never met the provider in person. She had previously been on IV Daptomycin which her has help with administering prior to current procedure. 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 Discussed that I will reach out to Dr. Paul to clarify antibiotic selection prior to discharge. Of note, she states she believes this joint to have been infected since 2016 and had even had a complete dehiscence of the wound to her knee the year following surgery when getting out of bed and was only set up with wound care for several months and has been dealing with difficulty with it ever since that time. Eating/drinking without difficultly. Has had a BM. Did discuss UTI on pre-op labs. Patient states she was aware of this and had Keflex called in over the phone, but that she only received 1-2 doses. Discussed that the cefepime she is currently on will treat this as well. Patient currently denies fevers, chills, chest pain, shortness of breath, abdominal pain, n/v/d/c or dysuria at this time. Review of Systems Review of Systems: All systems reviewed & are unremarkable except as noted in HPI & below Physical Exam Constitutional: WD/WN, vitals as above no acute distress Eyes: + anicteric sclerae and PERRL ENMT: external ear and nose normal, oropharynx normal Neck: trachea midline, no thyromegaly Respiratory: normal respiratory effort, lungs clear to auscultation Cardiovascular: RRR, no murmur, no edema Gastrointestinal (Abdomen): normal bowel sounds, soft, nontender, no hepatosplenomegaly Musculoskeletal: dressing to RIGHT knee c/d/i. Knee immbolizer present NVI 2+ pulses pt, dp bilaterally Calves non-tender to palpation Skin: no rashes, warm and dry Neurologic: patellar DTR's 2+ bilat, sensation intact Psychiatric: A+Ox3, euthymic affect Lymphatic: no cervical or axillary lymphadenopathy Results & Data Results & Data ([facility]) Vital Signs (Past 12 Hours) Vital Signs Temp Pulse Resp BP Pulse Ox 01/02/20 11:24 36.6 C 76 18 112/66 95 01/02/20 07:23 72 01/02/20 07:13 37 C 66 18 130/72 96 01/02/20 03:20 36.6 C 67 16 122/64 96 Laboratory Results 01/02/20 01/02/20 01/02/20 Range/Units 05:50 05:50 05:50 WBC (4.8-10.8) K/uL RBC (4.2-5.4) M/uL Hgb (12.0-16.0) g/dL Hct (37-47) % MCV (80-100) fL MCH (25-34) pg MCHC (32-36) g/dL RDW Std Deviation (36.4-46.3) fL RDW Coeff of Jarvis (11.5-14.5) % Plt Count (130-400) K/uL MPV (7.4-10.4) fL ESR 21 (0-21) mm/hr Sodium 143 (136-145) mmol/L Potassium 4.4 (3.5-5.1) mmol/L Chloride 112 H (98-107) mmol/L Carbon Dioxide 27 (21-32) mmol/L Anion Gap 4.0 (3-11) BUN 14 (7-18) mg/dl Creatinine 0.69 (0.6-1.2) mg/dl Est Cr Clr Drug Dosing 66.0 ml/min Est GFR ( Amer) 101.5 Est GFR (Non-Af Amer) 87.6 BUN/Creatinine Ratio 20.7 H (10-20) Glucose 80 (70-99) mg/dl Calcium 8.6 (8.5-10.1) mg/dl C-Reactive Protein 13.50 H (0-0.29) mg/dl 01/02/20 Range/Units 05:50 WBC 7.92 (4.8-10.8) K/uL RBC 3.23 L (4.2-5.4) M/uL Hgb 9.6 L (12.0-16.0) g/dL Hct 29.8 L (37-47) % MCV 92.3 (80-100) fL MCH 29.7 (25-34) pg MCHC 32.2 (32-36) g/dL RDW Std Deviation 57.2 H (36.4-46.3) fL RDW Coeff of Jarvis 17.3 H (11.5-14.5) % Plt Count 191 (130-400) K/uL MPV 10.1 (7.4-10.4) fL ESR (0-21) mm/hr Sodium (136-145) mmol/L Potassium (3.5-5.1) mmol/L Chloride (98-107) mmol/L Carbon Dioxide (21-32) mmol/L Anion Gap (3-11) BUN (7-18) mg/dl Creatinine (0.6-1.2) mg/dl Est Cr Clr Drug Dosing ml/min Est GFR ( Amer) Est GFR (Non-Af Amer) BUN/Creatinine Ratio (10-20) Glucose (70-99) mg/dl Calcium (8.5-10.1) mg/dl C-Reactive Protein (0-0.29) mg/dl PG Care Time/CCT Total # of Minutes Spent Total Time Spent with Patient: Total time spent is greater than 50% in coordination of care (as documented) at patient's floor/unit and/or counseling patient: Coding Level of Care Code 77740 Subseq Hosp Care Lvl 3 Diagnoses Infection associated with internal right knee prosthesis T84.53XA Encounter type: initial encounter Hypertension I10 PAF (paroxysmal atrial fibrillation) I48.0 RA (rheumatoid arthritis) M06.9 Overactive bladder N32.81 Hypoparathyroidism E20.9 UTI (urinary tract infection) N39.0 DVT prophylaxis Z29.9 (1) Infection associated with internal right knee prosthesis Encounter type: initial encounter Qualified Code(s): T84.53XA - Infection and inflammatory reaction due to internal right knee prosthesis, initial encounter
[2020-01-02] MEDS: predniSONE 1 MG TAB PO SCH (20:42)
[2020-01-02] MEDS: SENNA 8.6 MG TAB PO SCH (20:42)
--- NOTE | 2020-01-02 23:34 | Billing Data ---
Date of Service January 02, 2020 Coding Level of Care Code 24280 Inpt Consult Level 3
[2020-01-03] MEDS ORDERED: VANCOMYCIN TROUGH ONE (00:30)
[2020-01-03] MEDS: VANCOMYCIN HCL 750 MG in SODIUM CHLORIDE 0.9% 250 ML IV SCH (01:30)
[2020-01-03] MEDS: FAMOTIDINE 20 MG TAB PO PRN (03:54)
[2020-01-03] MEDS: ACETAMINOPHEN 500 MG TAB PO SCH ×3 (05:52→20:37)
[2020-01-03 06:34] LABS: Hematocrit (blood only) 31.9 % (37-47); Hemoglobin 9.8 g/dL (12.0-16.0); Mean Corpuscular Hemoglobin 28.9 pg (25-34); Mean Corpuscular Hgb Conc 30.7 g/dL (32-36); Mean Corpuscular Volume 94.1 fL (80-100); Platelet Count 238 K/uL (130-400); RDW Coefficient of Variation 17.6 % (11.5-14.5); RDW Standard Deviation 59.1 fL (36.4-46.3); Red Blood Count 3.39 M/uL (4.2-5.4); White Blood Count 8.35 K/uL (4.8-10.8)
[2020-01-03 07:08] LABS: BUN Creatinine Ratio 22.4 (10-20); Calcium 8.7 mg/dl (8.5-10.1); Creatinine Clr Calc Pharmacy 61.4 ml/min; Est GFR (African American) 97.7; Est GFR (Non-African American) 84.3; Potassium 4.6 mmol/L (3.5-5.1)
--- NOTE | 2020-01-03 07:27 | Orthopedic Progress Note ---
Date of Service January 03, 2020 Assessment & Plan (1) Infection associated with internal right knee prosthesis: Status post revision of right knee antibiotic cement spacer, I&D. POD#5 -Vancomycin/cefipime, will switch to daptomycin in anticipation for discharge -Trough 17.3 -Plan for 4 weeks IV antibiotics -PICC line placed -DVT prophylaxis: SCDs, teds, Eliquis -Partial weightbearing right lower extremity -PT/OT -Maintain knee immobilizer at all times, may remove for hygiene purposes -A.m. labs- HGB 9.8, received 2 units of PRBC on 12/30, trend inflammatory labs -Follow-up intraoperative cultures till final, no growth per most recent labs. -Med recs appreciated, -DC planningHome with home health, IV antibiotics x4 weeks, chart well and weekly labs. POD#4 -Vancomycin/cefipime -Trough 17.3 -PICC line placed -DVT prophylaxis: SCDs, teds, Eliquis -Partial weightbearing right lower extremity -PT/OT -Maintain knee immobilizer at all times, may remove for hygiene purposes -A.m. labs- HGB 9.6, received 2 units of PRBC on 12/30, trend inflammatory labs -Follow-up intraoperative cultures, no growth per most recent labs. -Med recs appreciated, -DC planningwill require prolonged course of IV antibiotics x6 weeks, consultation with medicine in regards to perioperative management and recommendations. Patient follows infectious disease with [facility]. POD#3 -Vancomycin/cefipime -PICC line placed -DVT prophylaxis: SCDs, teds, Eliquis -Partial weightbearing right lower extremity -PT/OT -Maintain knee immobilizer at all times -A.m. labs- HGB 10.3, received 2 units of PRBC on 12/30 -drain DCd -Follow-up intraoperative cultures, no growth per most recent labs. -Med recs appreciated, -DC planningwill require prolonged course of IV antibiotics x6 weeks, consultation with medicine in regards to perioperative management and recommendations. Patient follows infectious disease with [facility]. POD#2 -Vancomycin/cefipime -PICC line ordered -DVT prophylaxis: SCDs, teds, Eliquis -Partial weightbearing right lower extremity -PT/OT -Maintain knee immobilizer at all times -A.m. labs- HGB 6.7, receiving 2 units PRBC -Monitor drain output, 180cc last shift. -Follow-up intraoperative cultures, no growth per most recent labs. -Med recs appreciated, -DC planningwill require prolonged course of IV antibiotics x6 weeks, consultation with medicine in regards to perioperative management and recommendations. Patient follows infectious disease with [facility]. POD#1 -Vancomycin/ancef -DVT prophylaxis: SCDs, teds, Eliquis -Partial weightbearing right lower extremity -Maintain knee immobilizer at all times -Postoperative x-ray demonstrates a well aligned well fixed articulating antibiotic cement spacer without fracture dislocation -A.m. labs -Monitor drain output -Follow-up intraoperative cultures -Med recs appreciated, -DC planningwill require prolonged course of IV antibiotics x6 weeks, consultation with medicine in regards to perioperative management and recommendations. Patient follows infectious disease with [facility]. Admission and Anticipated Discharge Date Admission Date: December 29, 2019 Subjective Post Operative Progress Note Patient seen sitting up in bed, comfortable, denies complaints, pain well controlled, no acute issues. Denies F/C/N/V/SOB/CP. Review of Systems Review of Systems: All systems reviewed & are unremarkable except as noted in HPI & below Constitutional: as per Subjective / HPI Physical Exam Physical Exam: RLE NVSI +EHL/FHL/TA/GS SILT grossly, +2 DP pulse, compartments soft NT, dressing cdi. KI in place Constitutional: WD/WN, vitals as above Results & Data ([facility]) Vital Signs (Past 12 Hours) Vital Signs Temp Pulse Pulse Pulse Resp BP BP 01/03/20 07:12 36.5 C 68 19 146/66 H 01/03/20 07:00 66 01/03/20 04:00 36.7 C 68 18 166/67 H 01/03/20 00:38 73 01/02/20 23:00 37.1 C 83 19 149/68 H 01/02/20 19:37 37.1 C 67 18 122/69 Pulse Ox 01/03/20 07:12 95 01/03/20 07:00 01/03/20 04:00 95 01/03/20 00:38 01/02/20 23:00 96 01/02/20 19:37 95 Laboratory Results 01/03/20 01/03/20 01/03/20 Range/Units 05:43 05:43 00:11 WBC 8.35 (4.8-10.8) K/uL RBC 3.39 L (4.2-5.4) M/uL Hgb 9.8 L (12.0-16.0) g/dL Hct 31.9 L (37-47) % MCV 94.1 (80-100) fL MCH 28.9 (25-34) pg MCHC 30.7 L (32-36) g/dL RDW Std Deviation 59.1 H (36.4-46.3) fL RDW Coeff of Jarvis 17.6 H (11.5-14.5) % Plt Count 238 (130-400) K/uL MPV 10.0 (7.4-10.4) fL ESR (0-21) mm/hr Sodium 143 (136-145) mmol/L Potassium 4.6 (3.5-5.1) mmol/L Chloride 113 H (98-107) mmol/L Carbon Dioxide 27 (21-32) mmol/L Anion Gap 3.0 (3-11) BUN 16 (7-18) mg/dl Creatinine 0.72 (0.6-1.2) mg/dl Est Cr Clr Drug Dosing 61.4 ml/min Est GFR ( Amer) 97.7 Est GFR (Non-Af Amer) 84.3 BUN/Creatinine Ratio 22.4 H (10-20) Glucose 90 (70-99) mg/dl Calcium 8.7 (8.5-10.1) mg/dl C-Reactive Protein (0-0.29) mg/dl Nasal Screen MRSA (PCR) (Negative) Vancomycin Trough 17.8 (See Comment) mcg/ml 01/02/20 01/02/20 01/02/20 Range/Units 18:30 05:50 05:50 WBC (4.8-10.8) K/uL RBC (4.2-5.4) M/uL Hgb (12.0-16.0) g/dL Hct (37-47) % MCV (80-100) fL MCH (25-34) pg MCHC (32-36) g/dL RDW Std Deviation (36.4-46.3) fL RDW Coeff of Jarvis (11.5-14.5) % Plt Count (130-400) K/uL MPV (7.4-10.4) fL ESR 21 (0-21) mm/hr Sodium (136-145) mmol/L Potassium (3.5-5.1) mmol/L Chloride (98-107) mmol/L Carbon Dioxide (21-32) mmol/L Anion Gap (3-11) BUN (7-18) mg/dl Creatinine (0.6-1.2) mg/dl Est Cr Clr Drug Dosing ml/min Est GFR ( Amer) Est GFR (Non-Af Amer) BUN/Creatinine Ratio (10-20) Glucose (70-99) mg/dl Calcium (8.5-10.1) mg/dl C-Reactive Protein 13.50 H (0-0.29) mg/dl Nasal Screen MRSA (PCR) Negative (Negative) Vancomycin Trough (See Comment) mcg/ml (1) Infection associated with internal right knee prosthesis Encounter type: initial encounter Qualified Code(s): T84.53XA - Infection and inflammatory reaction due to internal right knee prosthesis, initial encounter
[2020-01-03] MEDS: OXYCODONE HCL IR 5 MG TAB (IMMEDIATE RELEASE) PO PRN ×3 (08:07→20:33)
[2020-01-03] MEDS: METOPROLOL TARTRATE 25 MG TAB PO SCH ×2 (08:09→20:34)
[2020-01-03] MEDS: AMIODARONE 200 MG TAB PO SCH (08:10)
[2020-01-03] MEDS: predniSONE 10 MG TABLET PO SCH (08:10)
[2020-01-03] MEDS: APIXABAN 5 MG TABLET PO SCH ×2 (08:11→20:34)
[2020-01-03] MEDS: PANTOprazole 40 MG TAB PO SCH ×2 (08:11→20:36)
[2020-01-03] MEDS: OXYBUTYNIN CHLORIDE 5 MG TAB PO SCH ×2 (08:11→20:34)
[2020-01-03] MEDS: DOCUSATE SODIUM 100 MG CAP PO SCH ×2 (08:11→20:33)
[2020-01-03] MEDS: GABAPENTIN 100 MG CAP PO SCH ×3 (08:11→20:35)
[2020-01-03] MEDS: MULTIVITAMIN TAB PO SCH (08:12)
[2020-01-03] MEDS: CEFEPIME 2,000 MG in SYRINGE 7.5 ML IV SCH (08:47)
--- NOTE | 2020-01-03 09:42 | Cardiology Progress Note ---
Date of Service January 03, 2020 Assessment & Plan (1) PAF (paroxysmal atrial fibrillation): -sinus rhythm on amiodarone. -long-term anticoagulation with Eliquis. (2) Paroxysmal SVT (supraventricular tachycardia): -no recurrence. (3) Hypertension: -adequate control. (4) Infection of total right knee replacement: -management per Dr. Vela. (5) Acute blood loss anemia: -given 2 units packed red cells. Admission and Anticipated Discharge Date Admission Date: December 29, 2019 Subjective The patient is resting comfortably in bed without complaints of chest pain, dyspnea, or palpitations. Physical Exam Physical Exam: In general this is a well-developed well-nourished white female in no acute distress. HEENT exam is negative. Neck is supple with full carotid upstrokes. There are no carotid bruits. No JVD. There is no thyromegaly. Cardiovascular exam reveals a regular rhythm with a normal S1 and S2. Heart sounds are distant. No obvious murmurs. Lungs are clear without rales, rhonchi, or wheezes. Abdomen is soft and nontender without bruits. Extremities reveal intact radial artery pulses bilaterally. There is no peripheral edema. Right knee is dressed. Results & Data ([facility]) Vital Signs (Past 12 Hours) Vital Signs Temp Pulse Pulse Resp BP Pulse Ox 01/03/20 07:12 36.5 C 68 19 146/66 H 95 01/03/20 07:00 66 01/03/20 04:00 36.7 C 68 18 166/67 H 95 01/03/20 00:38 73 01/02/20 23:00 37.1 C 83 19 149/68 H 96 PG Care Time/CCT Total # of Minutes Spent Total Time Spent with Patient: Total time spent is greater than 50% in coordination of care (as documented) at patient's floor/unit and/or counseling patient: Coding Level of Care Code 82727 Subseq Hosp Care Lvl 3 Diagnoses PAF (paroxysmal atrial fibrillation) I48.0 Paroxysmal SVT (supraventricular tachycardia) I47.1 Hypertension I10 Infection of total right knee replacement T84.53XA Acute blood loss anemia D62
[2020-01-03] MEDS ORDERED: DAPTOMYCIN CONSULT ACTIVE PRN (10:12)
[2020-01-03] MEDS: DAPTOmycin 300 MG in SYRINGE 0 ML IV SCH (10:57)
--- NOTE | 2020-01-03 14:12 | Hospitalist Progress Note ---
Date of Service January 03, 2020 Assessment & Plan (1) Infection associated with internal right knee prosthesis: * POD #5 S/p Right Total Knee Revision, Incision and Drainage with Antibiotic Cement Spacer(Right) with Dr. Vela on 12/28. Pre-op h/h 13.4/42.6 but was 9.8/31 just prior to surgery * Acute blood loss anemia in conjunction with dilution from IVF resulted in drop in h/h to 6.7/21.5 --> patient received 2 units PRBC with improvement of h/h to 10.3/32.5 on 12/31 * H/h stable at 9.8/31.9 * MRSA nasal swab negative -- Discussed case with patient's new ID provider Dr. Govind Paul at [facility] who stated that if aspiration of fluid prior to procedure negative, then he would not recommend further antibiotics at this time, and believes that coag negative staff is likely a contaminant give prior history of cultures with such -- Discussed case with attending, Dr. Vela, who would like to treat as a culture negative persistent infection due to high cell count in the knee as well as intra-operative findings, including pus like material femoral canal and have already placed antibiotic cement spacer * Vancomycin/Cefepime discontinued --> Patient to continue with Daptomycin IV x 4 weeks. Will need weekly CBC, CMP, ESR, CPK while on treatment. Labs provided by orthopedic team and discussed with PA -- > to arrange abx with CM department for possible discharge tomorrow. Of note, patient received keflex prior to admission and continued on Cefepime from 12/29-01/02 and treatment should be complete for E.Coli UTI * ESR 21, although CRP elevated at 13.5-- trend inflammatory markers in AM with rest of labs for Dapto * PT/OT/Pain management/DVT prophylaxis per surgical team (2) Hypertension: * Chronic. Stable * Currently 108/70 * Continue metoprolol 12.5mg BID * Continue to monitor (3) PAF (paroxysmal atrial fibrillation): * On amiodarone; remains in sinus, 60bpms with PACs, 60-70s overnight * Continue metoprolol as above * Continue Eliquis per Dr. Vela (4) RA (rheumatoid arthritis): * No active joints at present. * Prednisone double on admission for possible stress dosing at 10mg QAM, 2mg QHS --> will decrease back to home dosing 5/1mg If BP drops and not responding to blood/fluids; could consider stress-dose steroids (hydrocortisone 100 mg IV once, then 50 mg IV Q6h) Would not do this right now as she is symptom-free and BP is stable at present. (5) Overactive bladder: * Continue home oxybutynin (6) Hypoparathyroidism: * Continue home calcitriol (7) UTI (urinary tract infection): * On pre-op labs -- E.Coli, pansensitive except to ampicillin/sulbactam * Had been sent rx for Keflex but only had received 1-2 doses. * Continued cefepime as above for joint infection --> completed 5 day course of ABX (8) DVT prophylaxis: * Eliquis for hx afib Dispo: likely discharge tomorrow per primary team Thank you for allowing hospitalist team to participate in the care of Ms. Esparza. The hospitalist service will sign off at this time. Please feel free to reconsult if new or acute issues arise Admission and Anticipated Discharge Date Admission Date: December 29, 2019 Supervising Physician Co-Signing Physician Notes PA Supervision Note: I did not personally see or examine the patient today, but I verified all chapman points of KARINA Marquez's assessment and plan with the following exceptions/additions: None Subjective Patient feeling well. Pain controlled with PO medication. Plans for discharge home tomorrow with IV Daptomycin. Discussed that she should be covered regarding UTI given Keflex prior to admission and continued Cefepime while inpatient. No urinary symptoms at this time. Denies fever, chills, chest pain, shortness of breath, abdominal pain, n/v/d at this time. Review of Systems Review of Systems: All systems reviewed & are unremarkable except as noted in HPI & below Physical Exam Constitutional: WD/WN, vitals as above no acute distress Eyes: + anicteric sclerae and PERRL ENMT: external ear and nose normal, oropharynx normal Neck: trachea midline, no thyromegaly Respiratory: normal respiratory effort, lungs clear to auscultation Cardiovascular: RRR, no murmur, no edema Gastrointestinal (Abdomen): normal bowel sounds, soft, nontender, no hepa tosplenomegaly Musculoskeletal: dressing to RIGHT knee c/d/i. Knee immbolizer present NVI 2+ pulses pt, dp bilaterally Calves non-tender to palpation Skin: no rashes, warm and dry PICC RUE Neurologic: patellar DTR's 2+ bilat, sensation intact Psychiatric: A+Ox3, euthymic affect Lymphatic: no cervical or axillary lymphadenopathy Results & Data Results & Data ([facility]) Vital Signs (Past 12 Hours) Vital Signs Temp Pulse Pulse Resp BP Pulse Ox 01/03/20 12:00 37.0 C 75 18 108/70 96 01/03/20 07:12 36.5 C 68 19 146/66 H 95 01/03/20 07:00 66 01/03/20 04:00 36.7 C 68 18 166/67 H 95 Laboratory Results 01/03/20 01/03/20 01/03/20 Range/Units 05:43 05:43 00:11 WBC 8.35 (4.8-10.8) K/uL RBC 3.39 L (4.2-5.4) M/uL Hgb 9.8 L (12.0-16.0) g/dL Hct 31.9 L (37-47) % MCV 94.1 (80-100) fL MCH 28.9 (25-34) pg MCHC 30.7 L (32-36) g/dL RDW Std Deviation 59.1 H (36.4-46.3) fL RDW Coeff of Jarvis 17.6 H (11.5-14.5) % Plt Count 238 (130-400) K/uL MPV 10.0 (7.4-10.4) fL Sodium 143 (136-145) mmol/L Potassium 4.6 (3.5-5.1) mmol/L Chloride 113 H (98-107) mmol/L Carbon Dioxide 27 (21-32) mmol/L Anion Gap 3.0 (3-11) BUN 16 (7-18) mg/dl Creatinine 0.72 (0.6-1.2) mg/dl Est Cr Clr Drug Dosing 61.4 ml/min Est GFR ( Amer) 97.7 Est GFR (Non-Af Amer) 84.3 BUN/Creatinine Ratio 22.4 H (10-20) Glucose 90 (70-99) mg/dl Calcium 8.7 (8.5-10.1) mg/dl Nasal Screen MRSA (PCR) (Negative) Vancomycin Trough 17.8 (See Comment) mcg/ml 01/02/20 Range/Units 18:30 WBC (4.8-10.8) K/uL RBC (4.2-5.4) M/uL Hgb (12.0-16.0) g/dL Hct (37-47) % MCV (80-100) fL MCH (25-34) pg MCHC (32-36) g/dL RDW Std Deviation (36.4-46.3) fL RDW Coeff of Jarvis (11.5-14.5) % Plt Count (130-400) K/uL MPV (7.4-10.4) fL Sodium (136-145) mmol/L Potassium (3.5-5.1) mmol/L Chloride (98-107) mmol/L Carbon Dioxide (21-32) mmol/L Anion Gap (3-11) BUN (7-18) mg/dl Creatinine (0.6-1.2) mg/dl Est Cr Clr Drug Dosing ml/min Est GFR ( Amer) Est GFR (Non-Af Amer) BUN/Creatinine Ratio (10-20) Glucose (70-99) mg/dl Calcium (8.5-10.1) mg/dl Nasal Screen MRSA (PCR) Negative (Negative) Vancomycin Trough (See Comment) mcg/ml PG Care Time/CCT Total # of Minutes Spent Total Time Spent with Patient: Total time spent is greater than 50% in coordination of care (as documented) at patient's floor/unit and/or counseling patient: Coding Level of Care Code 50867 Subseq Hosp Care Lvl 2 Diagnoses Infection associated with internal right knee prosthesis T84.53XA Encounter type: initial encounter Hypertension I10 PAF (paroxysmal atrial fibrillation) I48.0 RA (rheumatoid arthritis) M06.9 Overactive bladder N32.81 Hypoparathyroidism E20.9 UTI (urinary tract infection) N39.0 DVT prophylaxis Z29.9 (1) Infection associated with internal right knee prosthesis Encounter type: initial encounter Qualified Code(s): T84.53XA - Infection and inflammatory reaction due to internal right knee prosthesis, initial encounter
[2020-01-03] MEDS: SENNA 8.6 MG TAB PO SCH (20:36)
[2020-01-03] MEDS ORDERED: predniSONE 1 MG TAB PO SCH (21:00)
[2020-01-04] MEDS: ACETAMINOPHEN 500 MG TAB PO SCH ×2 (06:04→14:38)
--- NOTE | 2020-01-04 07:46 | Orthopedic Progress Note ---
Date of Service January 04, 2020 Assessment & Plan (1) Infection associated with internal right knee prosthesis: Status post revision of right knee antibiotic cement spacer, I&D. POD#6 -IV daptomycin -Plan for 4 weeks IV antibiotics, weekly lab draws -PICC line placed -DVT prophylaxis: SCDs, teds, Eliquis -Partial weightbearing right lower extremity -PT/OT -Maintain knee immobilizer at all times, may remove for hygiene purposes -A.m. labs- am labs pending -Intraoperative cultures final and negative -Med recs appreciated, signed off, no further tx for UTI. -DC planningHome with home health, IV antibiotics x4 weeks, chart well and weekly labs. POD#5 -Vancomycin/cefipime, will switch to daptomycin in anticipation for discharge -Trough 17.3 -Plan for 4 weeks IV antibiotics -PICC line placed -DVT prophylaxis: SCDs, teds, Eliquis -Partial weightbearing right lower extremity -PT/OT -Maintain knee immobilizer at all times, may remove for hygiene purposes -A.m. labs- HGB 9.8, received 2 units of PRBC on 12/30, trend inflammatory labs -Follow-up intraoperative cultures till final, no growth per most recent labs. -Med recs appreciated, -DC planningHome with home health, IV antibiotics x4 weeks, chart well and weekly labs. POD#4 -Vancomycin/cefipime -Trough 17.3 -PICC line placed -DVT prophylaxis: SCDs, teds, Eliquis -Partial weightbearing right lower extremity -PT/OT -Maintain knee immobilizer at all times, may remove for hygiene purposes -A.m. labs- HGB 9.6, received 2 units of PRBC on 12/30, trend inflammatory labs -Follow-up intraoperative cultures, no growth per most recent labs. -Med recs appreciated, -DC planningwill require prolonged course of IV antibiotics x6 weeks, consultation with medicine in regards to perioperative management and recommendations. Patient follows infectious disease with [facility]. POD#3 -Vancomycin/cefipime -PICC line placed -DVT prophylaxis: SCDs, teds, Eliquis -Partial weightbearing right lower extremity -PT/OT -Maintain knee immobilizer at all times -A.m. labs- HGB 10.3, received 2 units of PRBC on 6/27 -drain DCd -Follow-up intraoperative cultures, no growth per most recent labs. -Med recs appreciated, -DC planningwill require prolonged course of IV antibiotics x6 weeks, consultation with medicine in regards to perioperative management and recommendations. Patient follows infectious disease with [facility]. POD#2 -Vancomycin/cefipime -PICC line ordered -DVT prophylaxis: SCDs, teds, Eliquis -Partial weightbearing right lower extremity -PT/OT -Maintain knee immobilizer at all times -A.m. labs- HGB 6.7, receiving 2 units PRBC -Monitor drain output, 180cc last shift. -Follow-up intraoperative cultures, no growth per most recent labs. -Med recs appreciated, -DC planningwill require prolonged course of IV antibiotics x6 weeks, consultation with medicine in regards to perioperative management and recommendations. Patient follows infectious disease with [facility]. POD#1 -Vancomycin/ancef -DVT prophylaxis: SCDs, teds, Eliquis -Partial weightbearing right lower extremity -Maintain knee immobilizer at all times -Postoperative x-ray demonstrates a well aligned well fixed articulating antibiotic cement spacer without fracture dislocation -A.m. labs -Monitor drain output -Follow-up intraoperative cultures -Med recs appreciated, -DC planningwill require prolonged course of IV antibiotics x6 weeks, consultation with medicine in regards to perioperative management and recommendations. Patient follows infectious disease with [facility]. Admission and Anticipated Discharge Date Admission Date: December 29, 2019 Subjective Post Operative Progress Note Patient seen sitting up in bed, comfortable, denies complaints, pain well controlled, no acute issues. Denies F/C/N/V/SOB/CP. Review of Systems Review of Systems: All systems reviewed & are unremarkable except as noted in HPI & below Constitutional: as per Subjective / HPI Physical Exam Physical Exam: RLE NVSI +EHL/FHL/TA/GS SILT grossly, +2 DP pulse, compartments soft NT, dressing cdi. KI in place Constitutional: WD/WN, vitals as above Results & Data ([facility]) Vital Signs (Past 12 Hours) Vital Signs Temp Pulse Pulse Resp BP Pulse Ox 01/04/20 07:23 36.7 C 80 16 128/76 95 01/04/20 07:00 81 01/04/20 04:58 36.6 C 72 20 167/76 H 98 01/04/20 00:16 87 07/01/20 00:06 36.6 C 51 L 20 155/71 H 98 (1) Infection associated with internal right knee prosthesis Encounter type: initial encounter Qualified Code(s): T84.53XA - Infection and inflammatory reaction due to internal right knee prosthesis, initial encounter
[2020-01-04 07:47] LABS: Basophils # (auto) 0.02 K/uL (0-0.2); Basophils % (auto) 0.2 %; Eosinophils % (auto) 3.4 %; Hematocrit (blood only) 29.1 % (37-47); Hemoglobin 9.2 g/dL (12.0-16.0); Immature Granulocytes # (auto) 0.05 K/uL (0.00-0.02); Immature Granulocytes % (auto) 0.6 %; Lymphocytes # (auto) 1.23 K/uL (1.2-3.4); Mean Corpuscular Hgb Conc 31.6 g/dL (32-36); Mean Corpuscular Volume 91.8 fL (80-100); Mean Platelet Volume 9.3 fL (7.4-10.4); Monocytes # (auto) 0.81 K/uL (0.11-0.59); Monocytes % (auto) 9.2 %; Neutrophils # (auto) 6.38 K/uL (1.4-6.5); Neutrophils % (auto) 72.6 %; Platelet Count 223 K/uL (130-400); RDW Coefficient of Variation 17.3 % (11.5-14.5); RDW Standard Deviation 56.5 fL (36.4-46.3); Red Blood Count 3.17 M/uL (4.2-5.4); White Blood Count 8.79 K/uL (4.8-10.8)
[2020-01-04] MEDS: AMIODARONE 200 MG TAB PO SCH (08:07)
[2020-01-04] MEDS: MULTIVITAMIN TAB PO SCH (08:07)
[2020-01-04] MEDS: PANTOprazole 40 MG TAB PO SCH (08:08)
[2020-01-04] MEDS: METOPROLOL TARTRATE 25 MG TAB PO SCH (08:08)
[2020-01-04] MEDS: GABAPENTIN 100 MG CAP PO SCH ×2 (08:08→14:43)
[2020-01-04] MEDS: APIXABAN 5 MG TABLET PO SCH (08:09)
[2020-01-04] MEDS: DOCUSATE SODIUM 100 MG CAP PO SCH (08:10)
[2020-01-04] MEDS: OXYBUTYNIN CHLORIDE 5 MG TAB PO SCH (08:10)
[2020-01-04 08:24] LABS: C Reactive Protein 6.85 mg/dl (0-0.29); Creatinine Clr Calc Pharmacy 66.9 ml/min; Est GFR (African American) 105.7; Est GFR (Non-African American) 91.2; Potassium 3.8 mmol/L (3.5-5.1)
[2020-01-04 08:38] LABS: Albumin Globulin Ratio 0.6 (0.9-2); Bilirubin,Total 0.4 mg/dl (0.2-1); Globulin 3.2 gm/dl (2.5-4.0); Total Protein 5.2 gm/dl (6.4-8.2)
[2020-01-04] MEDS ORDERED: predniSONE 5 MG TAB PO SCH (09:00)
[2020-01-04] MEDS: OXYCODONE HCL IR 5 MG TAB (IMMEDIATE RELEASE) PO PRN (10:41)
[2020-01-04] MEDS: DAPTOmycin 300 MG in SYRINGE 0 ML IV SCH (11:27)
[2020-01-04 11:47] VITALS: PULSE 77; TEMP 99.3; O2SAT 96
[2020-01-04 15:00] VITALS: BP 122/69
--- NOTE | 2020-01-04 19:36 | Discharge Summary ---
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 I/O cultures positive for Enterococcus facialis. ID was consulted and the patient was discharged on 6 weeks of IV daptomycin. Inflammatory labs were followed weekly. Once IV abx completed and was off all abx for two weeks arthrocentesis was performed 08/19/19, a-defensin negative, CC 2747. The patients ESR CRP were trending lower but still elevated. Consultation with ID determined no further need for IV abx at that time. We decided to follow inflammatory labs till normal and repeat arthrocentesis of the knee was performed on 09/15/19, CC 2588, inflammatory labs had normalized. We discussed repeat I+D vs revision TKA however the decision was made to delay any surgery secondary to COVID- pandemic and the patient being high risk secondary to RA and taking multiple immune modifying medications. Repeat arthrocentesis on 11/10/19, CC 1973, cultures + for coag neg staph, ID consulted and felt contaminant. Recommended repeat arthrocentesis prior to proceeding with surgery which was performed on 12/22/19. CC increased to 3077, culture negative, ESR and CRP elevated, >140 and 0.61 respectively. Patient has been treated for recurrant UTI over the last year with positive cultures at most recent pre-admission testing. Patient also has PMHx for RA for which she takes several medications for. The patient is asymptomatic for UTI. Patient is scheduled for repeat I+D and and placement of antibiotic cement spacer vs revision right total knee arthroplasty. Principal Diagnosis Revision right knee antibiotic cement articulating spacer, repeat I+D -right knee periprosthetic joint infection Discharge Exam RLE NVSI +EHL/FHL/TA/GS SILT grossly, +2 DP pulse, compartments soft NT, dressing cdi. Constitutional WD/WN, vitals as above Discharge Data Allergies Allergy/AdvReac Type Severity Reaction Status Date / Time dalbavancin Allergy Severe hypotension, Verified 12/29/19 11:08 flushing, tachypnea Consultations 12/29/19 18:49 Consult Case Management - Discharge Planning Routine Consult Hospitalist Routine 12/29/19 23:37 Consult Cardiology Routine Procedures Performed Operation Date: 12/29/19 12:40 Actual Procedures p Right Total Knee Revision,(Right) - Ihsan Vela DO s Incision and Drainage with Antibiotic Cement Spacer(Right) - Ihsan Vela DO Ordered Studies 12/29/19 05:00 US - OR guided needle placemen Routine Hospital Course (1) Infection associated with internal right knee prosthesis: Hospital Course: On 12/29/19 the patient was taken to the operating room, adequate anesthesia administered and underwent revision right knee antibiotic cement spacer, repeat I+D. The patient tolerated the procedure well and was taken to the PACU in stable condition. Post-operatively the patient was started on a DVT ppx medication and given appropriate IV antibiotics. Consults were placed to medical hospitalist, cardiology, physical therapy, occupational therapy and case management. POD#1 -Vancomycin/ancef -DVT prophylaxis: SCDs, teds, Eliquis -Partial weightbearing right lower extremity -Maintain knee immobilizer at all times -Postoperative x-ray demonstrates a well aligned well fixed articulating antibiotic cement spacer without fracture dislocation -A.m. labs -Monitor drain output -Follow-up intraoperative cultures -Med recs appreciated, cardiology recs appreciated -DC planningwill require prolonged course of IV antibiotics x6 weeks, consultation with medicine in regards to perioperative management and recommendations. Patient follows infectious disease with [facility]. POD#2 -Vancomycin/cefipime -PICC line ordered -DVT prophylaxis: SCDs, teds, Eliquis -Partial weightbearing right lower extremity -PT/OT -Maintain knee immobilizer at all times -A.m. labs- HGB 6.7, receiving 2 units PRBC -Monitor drain output, 180cc last shift. -Follow-up intraoperative cultures, no growth per most recent labs. -Med recs appreciated, -DC planningwill require prolonged course of IV antibiotics x6 weeks, consultation with medicine in regards to perioperative management and recommendations. Patient follows infectious disease with [facility]. POD#3 -Vancomycin/cefipime -PICC line placed -DVT prophylaxis: SCDs, teds, Eliquis -Partial weightbearing right lower extremity -PT/OT -Maintain knee immobilizer at all times -A.m. labs- HGB 10.3, received 2 units of PRBC on 12/30 -drain DCd -Follow-up intraoperative cultures, no growth per most recent labs. -Med recs appreciated, -DC planningwill require prolonged course of IV antibiotics x6 weeks, consultation with medicine in regards to perioperative management and recommendations. Patient follows infectious disease with [facility]. POD#4 -Vancomycin/cefipime -Trough 17.3 -PICC line placed -DVT prophylaxis: SCDs, teds, Eliquis -Partial weightbearing right lower extremity -PT/OT -Maintain knee immobilizer at all times, may remove for hygiene purposes -A.m. labs- HGB 9.6, received 2 units of PRBC on 12/30, trend inflammatory labs -Follow-up intraoperative cultures, no growth per most recent labs. -Med recs appreciated, -DC planningwill require prolonged course of IV antibiotics x6 weeks, consultation with medicine in regards to perioperative management and recommendations. Patient follows infectious disease with [facility]. POD#5 -Vancomycin/cefipime, will switch to daptomycin in anticipation for discharge -Trough 17.3 -Plan for 4 weeks IV antibiotics -PICC line placed -DVT prophylaxis: SCDs, teds, Eliquis -Partial weightbearing right lower extremity -PT/OT -Maintain knee immobilizer at all times, may remove for hygiene purposes -A.m. labs- HGB 9.8, received 2 units of PRBC on 12/30, trend inflammatory labs -Follow-up intraoperative cultures till final, no growth per most recent labs. -Med recs appreciated, -DC planningHome with home health, IV antibiotics x4 weeks, chart well and weekly labs. POD#6 -IV daptomycin -Plan for 4 weeks IV antibiotics, weekly lab draws -PICC line placed -DVT prophylaxis: SCDs, teds, Eliquis -Partial weightbearing right lower extremity -PT/OT -Maintain knee immobilizer at all times, may remove for hygiene purposes -A.m. labs- am labs pending -Intraoperative cultures final and negative -Med recs appreciated, signed off, no further tx for UTI. -DC planningHome with home health, IV antibiotics x4 weeks, chart well and weekly labs. The patients hospital stay was relatively uneventful and they were deemed stable by the orthopedic team and consultants to be discharged home with on 01/04/20. Discharge Instructions: Upon discharge the patient partial 50% weight bearing through their operative extremity. They were instructed to keep the incision clean and dry at all times. The patient may shower but should not submerge the incision, avoid bathing, pools and hot tubes. The patient was given a script for pain medication and should take as instructed. The patient home blood thinner, Eliquis was restarted and should take as directed. The patient was instructed to not drive or travel for long distances until cleared to do so. If the patient develops any symptoms of fevers, chills, nausea, vomiting, increased redness, swelling, pain or drainage from the surgical site, they should notify the office and/or proceed to the nearest emergency room. The patient should follow up in 10-14 days after surgery for their routine post-operative follow-up appointment and should call the office to confirm the date and time. Total Time Total Time Spent Total Time Spent (In Minutes): >60 minutes Discharge Plan Discharge Items Patient Disposition: Home - Home Health Services Reason For Visit: RIGHT KNEE OSTEOARTHRITIS Discharge Diagnosis: I+D right knee, antibiotic cement spacer -Right knee florecita-prosthetic joint infection Condition on Discharge: Good Activity: Per Instructions section Lifting: Wait until after follow-up appointment Bathing: Keep incision dry Bathing Comment: No bathing, pools or hot tubs Sexual Activity: Wait until after follow-up appointment Exercise/Sports: Wait until after follow-up appointment Driving/Machine Use: No driving Weightbearing: Right partial Weightbearing Comment: 50% Non-emergency contact: Primary Care Provider and Surgeon Call non-emergency contact if: you have any medication questions, your symptoms worsen, your pain is not controlled, your pain is worsening, your pain is unusual for you, your pain is concerning for you, you have a fever, your temperature is above 101, your wound has increased redness, your wound has increased drainage and your wound pain has increased Follow-up/Referrals: Sylvia Nails MD [Primary Care Provider] - Diet: Regular Addtl Attending Provider Instructions: ACTIVITY RECOMMENDATIONS: SELF CARE INSTRUCTIONS AFTER Revision antibiotic cement spacer and repeat irrigation and debridement. A. You may need to continue a physical therapy program after discharge from the hospital. There are several options available to you. Your doctor will assist you in selecting the best one for you. 1. An out-patient facility 2 to 3 times a week for therapy or home therapy. 2. Continue working on all exercises taught to you in the hospital. Your goals should be to increase bending of your knee to 90 degrees and beyond and to fully straighten your knee. B. You may progress at your own pace from walking with a walker or crutches to a cane; maintain 50% weight bearing. C. Make walking a part of your daily routine. Be up as much as comfortable with rest periods throughout the day. Rest with leg elevation is very important. Use the ice wrap frequently for the first 3-4 weeks. D. There are no restrictions on activities. You may ride in a car, shop, participate in manager ambulatory and all social activities as long as you adhere to your weight bearing restrictions. E. Wear the long elastic stockings (JAMAAL hose) 20 hours a day for 2 weeks after surgery. They can be removed several times a day for laundering and for a bath. F. You may shower, no tub baths until cleared by your doctor. SPECIAL CARE INSTRUCTIONS: VERY IMPORTANT TO READ AND REVIEW A. There are a few signs you need to watch for after you are home. Call [facility] if you notice any of the followin. Increased severe knee pain. Some pain is expected especially when you exercise. 2. Increased swelling in your leg or knee; pain or swelling of the calf muscle in either lower leg. 3. Any fluid drainage from the incision. 4. Shortness of breath or chest pain. B. Please call [facility] at if you have any concerns or questions about your operation or recovery. The doctor or his nurse will return your call promptly. C. You must take antibiotics before dental work, bladder, bowel or other surgery. Your doctor will provide you with a permanent care to carry describing this precaution. IMPORTANT: * REMEMBER TO TAKE YOUR HOME MEDICATION ELIQUIS. THIS IS YOUR BLOOD THINNER. * HIGH RISK PATIENTS MAY BE PRESCRIBED A STRONGER BLOOD THINNER. THIS WILL BE PROVIDED AT DISCHARGE. * CALL IF INCREASED PAIN, REDNESS, DRAINAGE OR FEVER GREATER THAT 101. * WEAR JAMAAL HOSE 20 HOURS PER DAY FOR 2 WEEKS. * KEEP INCISION COVERED WITH 4X4 AND TARUN WRAP, CHANGE DRESSING NEEDED. IF INCISION IS LEAKING THROUGH DRESSING, CALL THE OFFICE . FOLLOW UP VISIT: If appointment is not already scheduled: Please call [facility] to make a follow-up appointment for 2 weeks after your surgery at . Pending Studies at Discharge: No Stand-Alone Forms: [facility], Smoking Cessation Medications and DC Order Prescriptions: New daptomycin 350 mg recon soln 300 mg IV DAILY 28 Days Qty: 10 RF: 0 acetaminophen 500 mg Tablet 1,000 mg PO Q8 14 Days Qty: 84 RF: 0 oxycodone 5 mg Tablet 5 mg PO Q6H MDD 4 PRN (Reason: pain) Qty: 30 RF: 0 docusate sodium 100 mg Capsule 100 mg PO BID PRN (Reason: constipation) Qty: 28 RF: 0 Continued oxybutynin chloride 5 mg tablet 5 mg PO BID Qty: 180 RF: 1 metoprolol tartrate 25 mg tablet 12.5 mg PO BID Qty: 90 RF: 1 calcitriol 0.5 mcg capsule 0.5 mcg PO QPM Qty: 90 RF: 1 Eliquis 5 mg tablet 5 mg PO BID Qty: 180 RF: 1 prednisone 5 mg Tablet 5 mg PO QAM RF: 0 prednisone 1 mg Tablet 1 mg PO QPM RF: 0 gabapentin 100 mg Capsule 100 mg PO TID RF: 0 Probiotic 3 billion cell Capsule 3,000 mmu cells PO QAM RF: 0 Mac[facility]ite [facility] 7,160 unit-113 mg-100 unit Tablet 1 tab PO QAM RF: 0 sennosides [Senokot] 8.6 mg tablet 17.2 mg PO HS RF: 0 amiodarone 200 mg tablet 200 mg PO QAM RF: 0 omeprazole 20 mg capsule,delayed release(DR/EC) 20 mg PO BID RF: 0 cranberry 500 mg Capsule 500 mg PO QAM RF: 0 Calcium 600 + D(3) 600 mg calcium- 200 unit Capsule 1 cap PO BID RF: 0 Discontinued cephalexin [Keflex] 500 mg capsule 500 mg PO BID Qty: 14 RF: 0 hydroxychloroquine 200 mg tablet 200 mg PO BID RF: 0 leflunomide 20 mg tablet 20 mg PO QAM RF: 0 hydrocodone-acetaminophen 10-325 mg tablet 1 tab PO Q6H PRN (Reason: Pain) RF: 0 No Action (DME) Knee Stabilizer misc See Dose Instructions .ROUTE .MEDSUPPLY Qty: 1 RF: 0 cephalexin [Keflex] 500 mg capsule 500 mg PO BID Qty: 14 RF: 0 Discharge Orders: Discharge Order (Routine); Ordered 01/04/20 Ordered By: Theron Palafox Admission Data Admit Date/Time: 12/29/19 17:13 Attending Provider: Ihsan Vela Admit Provider: Ihsan Vela Primary Care Provider: Sylvia Nails Other Providers: Michael Dhaliwal ; Heri Welilngton ; Hui Coelho ; Edd Vance ; Abhijeet Ribeiro ; Earline Carbajal Other Interventions: Discharge Summary Assessment (RN) Last Done: 01/04/20 14:58 DC Date/Time DO NOT enter until pt leaves facility: 01/04/20 16:23
== END 2020-01-04 16:23 | disposition home health service (06) | DRG 486 ==
LOC: ASU 10:50 → 2N 17:13

== ENCOUNTER 2020-02-28 09:41 | Inpatient (IN) ==
[2020-02-09 13:14] LABS: Basophils # (auto) 0.06 K/uL (0-0.2); Basophils % (auto) 0.8 %; Hematocrit (blood only) 38.3 % (37-47); Hemoglobin 11.7 g/dL (12.0-16.0); Immature Granulocytes # (auto) 0.02 K/uL (0.00-0.02); Immature Granulocytes % (auto) 0.3 %; Lymphocytes # (auto) 0.95 K/uL (1.2-3.4); Mean Corpuscular Hemoglobin 26.9 pg (25-34); Mean Corpuscular Hgb Conc 30.5 g/dL (32-36); Mean Platelet Volume 9.6 fL (7.4-10.4); Monocytes # (auto) 0.49 K/uL (0.11-0.59); Monocytes % (auto) 6.7 %; Neutrophils # (auto) 5.77 K/uL (1.4-6.5); Neutrophils % (auto) 79.2 %; Platelet Count 305 K/uL (130-400); RDW Coefficient of Variation 17.8 % (11.5-14.5); RDW Standard Deviation 57.6 fL (36.4-46.3); Red Blood Count 4.35 M/uL (4.2-5.4); White Blood Count 7.29 K/uL (4.8-10.8)
[2020-02-09 13:19] LABS: Appearance Urine Turbid (Clear); Blood Urine Negative (Negative); Color Urine Dark Yellow; Epithelial Cell Urine Auto >30 /lpf (0-5); Glucose Urine UA Negative (Negative); Ketones Urine Trace (Negative); Leukocyte Esterase Urine Trace (Negative); Nitrite Urine Negative (Negative); Protein Urine Negative (Negative); RBC Urine Automated 0-4 /hpf (0-4); Specific Gravity Urine 1.021 (1.000-1.030); Urobilinogen Urine Negative (Negative)
[2020-02-09 13:35] LABS: Albumin Level 2.9 gm/dl (3.4-5.0); BUN Creatinine Ratio 15.1 (10-20); Blood Urea Nitrogen 18 mg/dl (7-18); C Reactive Protein 0.55 mg/dl (0-0.29); Calcium 9.5 mg/dl (8.5-10.1); Carbon Dioxide 25 mmol/L (21-32); Chloride 107 mmol/L (98-107); Est GFR (African American) 53.7; Est GFR (Non-African American) 46.4; Glucose 84 mg/dl (70-99); Potassium 5.2 mmol/L (3.5-5.1); Sodium 136 mmol/L (136-145)
[2020-02-09 13:44] LABS: Bilirubin Urine Negative (Negative); Ictotest Urine Negative (Negative)
[2020-02-09 14:09] LABS: Bacteria Urine Automated 1+ (Negative); Uric Acid Crystals Urine Present (None Prsent)
[2020-02-09 14:10] LABS: Cast Urine Automated 0 /lpf (0-5)
[2020-02-10 05:52] LABS: Estimated Average Glucose 103 mg/dl; Hemoglobin A1C 5.2 % (4.5-5.6)
--- NOTE | 2020-02-22 11:44 | Anesthesiology Consultation ---
Date of Service February 22, 2020 Assessment & Plan (1) Encounter for pre-operative examination: Per nurse phone assessment on 02/20: Travel screen negative. No known COVID-19 positive contacts or current COVID-19 related symptoms. Patient scheduled for preop protocol COVID-19 testing 02/22 ([facility] [place]). Awaiting results. - Cardiology office visit: 12/21/19: "She is currently stable and asymptomatic from a cardiovascular standpoint with no anginal symptoms. She has no signs or symptoms of CHF. Echo in June demonstrated normal LV systolic function with no significant valvular abnormality. She remains in normal sinus rhythm on EKG today. Her blood pressure is well controlled. Given this information, the patient is at an acceptable risk to proceed with upcoming surgery without any additional cardiovascular testing or intervention.. She may hold her Eliquis as recommended by her surgeon." Subsequently had Right TKA revision, I&D, antibiotic spacer 12/29/19* - Eliquis instructions: patient made aware at 12/22/19 PAT visit that in order for spinal anesthesia, Eliquis needs to be held 72 hours prior to surgery. - S/P Right TKA revision, I&D, antibiotic spacer: 12/29/19: SAB + PNB at [facility] Chart Review Chart Review: Acceptable Risk for Surgery (pending evaluation AM DOS) and Patient NOT seen in Pre Admission Testing History Surgery Operation Date: 02/28/20 11:15 Proposed Procedures p Right Total Knee Revision, Removal Antibiotic Spacer - Ihsan Vela DO Height/Weight Height: 5 ft 2 in Weight: 55.338 kg Allergies Allergy/AdvReac Type Severity Reaction Status Date / Time dalbavancin Allergy Severe hypotension, Verified 02/21/20 08:33 flushing, tachypnea Medications Home Medications Medication Instructions Recorded Confirmed Last Taken Probiotic 3,000 mmu cells PO QAM 03/30/18 02/21/20 12/28/19 08:00 gabapentin 100 mg PO TID 03/30/18 02/21/20 12/29/19 08:00 prednisone 1 mg PO QPM 03/30/18 02/21/20 12/28/19 18:00 prednisone 5 mg PO QAM 03/30/18 02/21/20 12/29/19 08:00 cranberry 500 mg PO QPM 09/29/18 02/21/20 12/22/19 08:00 omeprazole 20 mg PO BID 09/29/18 02/21/20 12/29/19 08:00 [facility] 1 tab PO QAM 10/08/18 02/21/20 12/22/19 08:00 leg brace #1 ea 02/10/19 12/21/19 Unknown Calcium 600 + D(3) 1 cap PO BID 06/07/19 02/21/20 12/28/19 18:00 sennosides [Senokot] 17.2 mg PO HS 08/11/19 02/21/20 12/27/19 18:00 oxycodone 5 mg PO Q6H PRN #30 tab MDD 4 01/04/20 02/21/20 Unknown apixaban 5 mg tablet 5 mg PO BID #180 tab 01/16/20 02/21/20 Unknown metoprolol tartrate 25 mg tablet 12.5 mg PO BID #90 tab 01/16/20 02/21/20 Unknown oxybutynin chloride 5 mg tablet 5 mg PO BID #180 tab 01/16/20 02/21/20 Unknown amiodarone 200 mg tablet 200 mg PO QAM #90 tab 01/24/20 02/21/20 Unknown calcitriol 0.5 mcg PO 2XWK 02/21/20 02/21/20 Unknown docusate sodium 100 mg PO HS PRN 02/21/20 02/21/20 Unknown hydroxychloroquine [Plaquenil] 200 mg PO BID 02/21/20 02/21/20 Unknown leflunomide 20 mg PO QAM 02/21/20 02/21/20 Unknown Past Medical History Medical History Anemia follows with Dr. Thibodeaux, s/p IV iron infusions Chronic back pain DDD (degenerative disc disease) GERD (gastroesophageal reflux disease) controlled History of Hodgkin's lymphoma 2003/under surveillance by PCP/Dr. Thibodeaux History of oral cancer s/p tongue excision left side (no chemo/no XRT 2013) Overactive bladder PAF (paroxysmal atrial fibrillation) hx Paroxysmal SVT (supraventricular tachycardia) hx RA (rheumatoid arthritis) on chronic steroid Skin benign neoplasm Vertigo Past Family History Family History Mother Breast cancer Colorectal cancer Cancer Gastric cancer Aunt Colorectal cancer Other Family history non-contributory Denies family history of Ovarian cancer Prostate cancer Myocardial infarction Past Surgical History Surgical History H/O foot surgery TOES X MULTIPLE H/O parathyroidectomy History of biopsy Of soft tissue of the neck History of breast surgery Puncture aspiration of cyst History of carpal tunnel release RIGHT History of colonoscopy History of colposcopy with cervical biopsy with endocervical curettage History of glossectomy with unilateral radical neck dissection History of hip surgery R/L REVISION Left MAURO revision: 11/09/18: SABx1 at L3-L4 at [facility] History of total hip arthroplasty R/L History of total knee replacement R/L History of tubal ligation Hx of hand surgery RIGHT Hx of knee surgery ANTIBIOTIC SPACER AND REVISION S/P revision of total knee 12/29/19 Dr. Ihsan Vela- Right total knee revision, Incision and drainage with antibiotic cement spacer Social History Smoking Status: Never smoker Do You Dip or Chew Tobacco: No Hx Alcohol Use: No Alcohol type: hard liquor alcohol intake frequency: holidays/special occasions only Hx Substance Use: No substance use type: does not use Testing Laboratory Results 02/09/20 WBC 7.29 H/H 11.7/38.3 PLATELETS 305 SODIUM 136 POTASSIUM 5.2 (mildly elevated; at anesthesiologist discretion AM DOS if repeat K+ level needed) CHLORIDE 107 CO2 25 BUN 18 CREATININE 1.18 GLUCOSE 84 12/22/19 PT 11.7 PTT 28.6 INR 1.1 Electrocardiogram Date: 12/29/19 SR with marked sinus arrhythmia at 79bpm. NS TWA. Chest X-Ray Date: 12/22/19 Negative chest. Mild emphysematous change. Echocardiogram Date: 12/30/19 EF 60-65%. No RWMA. Mild cLVH. Mild TR. No significant valvular disease. Cervical Spine Date: 10/15/18 1. Multilevel degenerative changes as above. 2. Grade 1 anterolisthesis C3 on C4 is slightly worsened on flexion. Correlate clinically to exclude instability. 3. Fixed anterolisthesis C4 on C5 is unchanged throughout the study. 4. No acute fracture. c-spine xray was done as preop testing for Left MAURO revision which was done 11/09/18 at [facility] (SABx1 at L3-L4 without issue). No c-spine tenderness or cervicalgia per PAT visit 12/22/19. Good cervical extension on exam.
--- NOTE | 2020-02-26 10:29 | History & Physical Report ---
Date of Service February 28, 2020 Assessment & Plan (1) Infection associated with internal right knee prosthesis: I have indicated the patient for repeat I+D and placement of antibiotic cement spacer vs revision right total knee arthroplasty. We will plan on obtaining I/O frozen sections to assess for persistent infection. The risks, benefits and complications of surgery were explained to the patient which include but not limited to infections, acute blood loss, DVT/PE, injury to nerves, vessels, bone, soft tissue, arthrofibrosis, chronic pain, failure of the prosthesis, knee dislocation, leg length discrepancy, need for additional surgery, cardiac and pulmonary events and . The patient wished to proceed with surgery and informed consent was obtained at this time. We will plan for Lovenox post-operatively for DVT prophylaxis. Upon discharge the patient will be discharged home with home health services. Appropriate clearances by PCP, cardiology and recommendations with infectious disease were obtained. The patient's RA medications were held pre-operatively. Patient asymptomatic for UTI. 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 I/O cultures positive for Enterococcus facialis. ID was consulted and the patient was discharged on 6 weeks of IV daptomycin. Surgery delayed secondary to COVID 19 pandemic. The patient underwent repeat I+D and revision antibiotic cement spacer on 12/29/19 secondary to uptrending inflammatory labs and synovial cell count. I/O cultures were negative. She was discharged with 4 weeks of IV daptomycin. Inflammatory labs were followed weekly. Once IV abx completed and antibiotic holiday for two weeks arthrocentesis was performed 02/09/20, gram stain and cultures were negative, CC 907 with 51.2% polys. The patients ESR CRP trending lower but mildly elevated. Patient has been treated for recurrent chronic UTI over the last year with positive cultures at most recent pre-admission testing. Patient also has PMHx for RA for which she takes several medications for. The patient is asymptomatic for UTI. Patient is scheduled for repeat I+D and and placement of antibiotic cement spacer vs revision right total knee arthroplasty. Allergies Allergy/AdvReac Type Severity Reaction Status Date / Time dalbavancin Allergy Severe hypotension, Verified 02/28/20 10:03 flushing, tachypnea Home Medications Home Medications Medication Instructions Recorded Confirmed Type Probiotic 3,000 mmu cells PO QAM 03/30/18 02/28/20 History gabapentin 100 mg PO TID 03/30/18 02/28/20 History prednisone 1 mg PO QPM 03/30/18 02/28/20 History prednisone 5 mg PO QAM 03/30/18 02/28/20 History cranberry 500 mg PO QPM 09/29/18 02/28/20 History omeprazole 20 mg PO BID 09/29/18 02/28/20 History Macuvite [facility] 1 tab PO QAM 10/08/18 02/28/20 History leg brace #1 ea 02/10/19 02/23/20 Rx Calcium 600 + D(3) 1 cap PO BID 06/07/19 02/28/20 History sennosides [Senokot] 17.2 mg PO HS 08/11/19 02/28/20 History apixaban 5 mg tablet 5 mg PO BID #180 tab 01/16/20 02/28/20 Rx metoprolol tartrate 25 mg tablet 12.5 mg PO BID #90 tab 01/16/20 02/28/20 Rx oxybutynin chloride 5 mg tablet 5 mg PO BID #180 tab 01/16/20 02/28/20 Rx amiodarone 200 mg tablet 200 mg PO QAM #90 tab 01/24/20 02/28/20 Rx calcitriol [Rocaltrol] 0.5 mcg PO 2XWK 02/21/20 02/28/20 History docusate sodium 100 mg PO HS PRN 02/21/20 02/28/20 History hydroxychloroquine [Plaquenil] 200 mg PO BID 02/21/20 02/28/20 History leflunomide [Arava] 20 mg PO QAM 02/21/20 02/28/20 History oxycodone [Roxicodone] 5 mg PO Q6H PRN MDD 4 02/28/20 02/28/20 History Past Med/Surg History Medical History Anemia follows with Dr. Thibodeaux, s/p IV iron infusions Chronic back pain DDD (degenerative disc disease) GERD (gastroesophageal reflux disease) controlled History of Hodgkin's lymphoma 2003/under surveillance by PCP/Dr. Thibodeaux History of oral cancer s/p tongue excision left side (no chemo/no XRT 2013) Overactive bladder PAF (paroxysmal atrial fibrillation) hx Paroxysmal SVT (supraventricular tachycardia) hx RA (rheumatoid arthritis) on chronic steroid Skin benign neoplasm Vertigo Surgical History H/O foot surgery TOES X MULTIPLE H/O parathyroidectomy History of biopsy Of soft tissue of the neck History of breast surgery Puncture aspiration of cyst History of carpal tunnel release RIGHT History of colonoscopy History of colposcopy with cervical biopsy with endocervical curettage History of glossectomy with unilateral radical neck dissection History of hip surgery R/L REVISION Left MAURO revision: 11/09/18: SABx1 at L3-L4 at [facility] History of total hip arthroplasty R/L History of total knee replacement R/L History of tubal ligation Hx of hand surgery RIGHT Hx of knee surgery Right TKA revision, I&D, antibiotic spacer: 12/29/19: SAB + PNB at [facility] S/P revision of total knee 12/29/19 Dr. Ihsan Vela- Right total knee revision, Incision and drainage with antibiotic cement spacer Family History Mother Breast cancer Colorectal cancer Cancer Gastric cancer Aunt Colorectal cancer Other Family history non-contributory Denies family history of Ovarian cancer Prostate cancer Myocardial infarction Social History Smoking Status: Never smoker Second Hand Exposure: No; Do You Dip or Chew Tobacco: No; Tobacco Cessation Education Requested by Patient: No Hx Alcohol Use: No Hx Substance Use: No Preferred Language: Ecuadorean Communication Ability: Effective Visual Impairment: Limited 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: Normal Boiler Welder Required: No Beliefs That Will Affect Care: None marital status: Current Living Situation: Spouse current occupational status: retired Other Information That Helps Us Care for You: No Feels Safe at Home: Yes Safety Concerns: Feels Safe At This Time Childhood Exposure to Second-Hand Smoke: Yes Seatbelt Use: always Review of Systems Review of Systems: All systems reviewed & are unremarkable except as noted in HPI & below Constitutional: as per Subjective / HPI Physical Exam Physical Exam: RLE NVSI +EHL/FHL/TA/GS SILT grossly, +2 DP pulse, compartments soft NT, surgical scar CDI Constitutional: WD/WN, vitals as above Eyes: PERRL, conjunctivae normal, anicteric sclerae ENMT: external ear and nose normal, oropharynx normal Neck: trachea midline, no thyromegaly Respiratory: normal respiratory effort, lungs clear to auscultation Cardiovascular: RRR, no murmur, no edema Gastrointestinal (Abdomen): normal bowel sounds, soft, nontender, no hepatosplenomegaly Musculoskeletal: no cyanosis or clubbing, extremities motor strength 5/5 Skin: no rashes, warm and dry Neurologic: patellar DTR's 2+ bilat, sensation intact Psychiatric: A+Ox3, euthymic affect Lymphatic: no cervical or axillary lymphadenopathy Results & Data Results & Data ([facility]) Diagnostic Findings XRs of the right knee well fixed antibiotic articulating spacer without fracture/dislocation. (1) Infection associated with internal right knee prosthesis Encounter type: initial encounter Qualified Code(s): T84.53XA - Infection and inflammatory reaction due to internal right knee prosthesis, initial encounter
[~2020-02-28 09:41] MED LIST changes: +CEFAZOLIN 1000MG 1,000 MG/7.5 ML SYR IV SCH; -CEFAZOLIN 2000MG 2,000 MG/15 ML SYR IV SCH; +OXYCODONE HCL 10 MG TABCR (OXYCONTIN) PO SCH; -ROPIVACAINE 0.5% HCL/PF 150 MG, BUPIVACAINE 0.5% MPF 30 ML, EPINEPHrine 30MG/30ML (OR U... INFIL SCH; +ROPIVACAINE 0.5% HCL/PF 150 MG, BUPIVACAINE 0.5% MPF 30 ML, EPINEPHrine 30MG/30ML (OR U... INSTIL SCH; +VANCOMYCIN HCL 750 MG in SODIUM CHLORIDE 0.9% 250 ML IV SCH; -dexAMETHasone 4 MG TAB PO SCH
[2020-02-28] MEDS ORDERED: MIDAZOLAM HCL 1 MG/ML 2ML VIAL ONE (11:27)
[2020-02-28] MEDS ORDERED: VANCOMYCIN CONSULT ACTIVE PRN ×2 (11:36→15:34)
--- NOTE | 2020-02-28 11:52 | History & Physical Bridge Note ---
Date of Service February 28, 2020 History & Physical Bridge Note I have examined the patient, reviewed the History & Physical and in the interval since the performance of the History & Physical I have noted the following changes of clinical significance: no changes noted
[2020-02-28] MEDS ORDERED: ORTHO JOINT ANESTHETIC ONE (11:53)
[2020-02-28] MEDS ORDERED: BACITRACIN INJ 50,000 UNIT VIAL ONE ×2 (11:53→14:40)
[2020-02-28] MEDS ORDERED: fentaNYL citrate 100 MCG/2 ML VIAL ONE ×2 (12:30→15:41)
[2020-02-28] MEDS ORDERED: LIDOCAINE HCL 2% 2 ML VIAL/AMP(20MG/ML) INFIL ONE (13:13)
[2020-02-28] MEDS ORDERED: ONDANSETRON INJ 2 MG/ML 2 ML VIAL ONE (13:13)
[2020-02-28] MEDS ORDERED: PROPOFOL IV EMULSION 10 MG/ML 20 ML VIAL IV ONE (13:13)
[2020-02-28] MEDS ORDERED: FLUMAZENIL 0.1 MG/1 ML 10 ML VIAL IV PRN (14:36)
[2020-02-28] MEDS ORDERED: LABETALOL HCL IV 5 MG/ML 20ML IV PRN (14:36)
[2020-02-28] MEDS ORDERED: NALOXONE HCL 0.4 MG/1 ML VIAL/CARP IV PRN ×2 (14:36→17:34)
[2020-02-28] MEDS ORDERED: PROMETHAZINE HCL 12.5 MG in SODIUM CHLORIDE 0.9% 50 ML IV PRN (14:36)
[2020-02-28] MEDS ORDERED: ePHEDrine sulfate 50 MG/ML AMP IV PRN (14:36)
[2020-02-28] MEDS ORDERED: ATROPINE SULFATE 0.1 MG/ML 10ML SYR IV PRN (14:36)
[2020-02-28] MEDS ORDERED: HYDROmorphone INJ 1 MG/ML SYRINGE IV PRN (14:36)
[2020-02-28] MEDS ORDERED: ONDANSETRON INJ 2 MG/ML 2 ML VIAL IV PRN ×2 (14:36→17:34)
--- NOTE | 2020-02-28 15:23 | Post Operative Brief Note ---
Immediate Post Op Note v1 Date of Surgery February 28, 2020 Pre & Post Diagnosis Operation Date: 02/28/20 12:05 Pre-Op Diagnosis: Osteoarthritis, Right Knee Post-Op Diagnosis: Osteoarthritis, Right Knee I identified the patient and participated in the time-out.: Yes Procedure Operation Date: 02/28/20 12:05 Actual Procedures p Right Total Knee Revision Arthroplasty, Removal Antibiotic Spacer(Right) - Ihsan Vela DO Surgeon Ihasn Vela DO Director Integrated Theron Palafox Estimated Blood Loss 140 Findings Consistent with Post-Op Diagnosis Fluids 1400 cc LR Specimens 5 frozen sections Drains Hemovac Drain Anesthesia Type General Complications none Disposition Disposition: Recovery Room Overlapping Procedure I was present for: the critical portions of procedure. I was immediately available: during the entire case. Back up surgeon: was not required during procedure.
--- NOTE | 2020-02-28 15:24 | Operative Report ---
Post Operative Report Pre & Post Diagnosis Operation Date: 02/28/20 12:05 Pre-Op Diagnosis: Osteoarthritis, Right Knee Post-Op Diagnosis: Osteoarthritis, Right Knee I identified the patient and participated in the time-out.: Yes Procedure Operation Date: 02/28/20 12:05 Actual Procedures p Right Total Knee Revision Arthroplasty, Removal Antibiotic Spacer(Right) - Ihsan Vela DO Surgeon Ihsan Vela DO Dot Net Developer Theron Palafox Estimated Blood Loss 140 Findings Consistent with Post-Op Diagnosis Fluids 1400 cc LR Specimens frozen sections x 5 Drains HMV drain deep to fascia Anesthesia Type General Disposition Disposition: Recovery Room Indications The patient is a 69 year old female who presents s/p explant right total knee, I+D and placement of antibiotic cement spacer on 06/07/19 secondary to 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 I/O cultures positive for Enterococcus facialis. ID was consulted and the patient was discharged on 6 weeks of IV daptomycin. Surgery delayed secondary to COVID 19 pandemic. The patient underwent repeat I+D and revision antibiotic cement spacer on 12/29/19 secondary to uptrending inflammatory labs and synovial cell count. I/O cultures were negative. She was discharged with 4 weeks of IV daptomycin. Inflammatory labs were followed weekly. Once IV abx completed and antibiotic holiday for two weeks arthrocentesis was performed 02/09/20, gram stain and cultures were negative, CC 907 with 51.2% polys. The patients ESR CRP trending lower but mildly elevated. Patient has been treated for recurrent chronic UTI over the last year with positive cultures at most recent pre-admission testing. Patient also has PMHx for RA for which she takes several medications for. The patient is asymptomatic for UTI. Patient is scheduled for repeat I+D and and placement of antibiotic cement spacer vs revision right total knee arthroplasty. I have indicated the patient for repeat I+D and placement of antibiotic cement spacer vs revision right total knee arthroplasty. We will plan on obtaining I/O frozen sections to assess for persistent infection. The risks, benefits and complications of surgery were explained to the patient which include but not limited to infections, acute blood loss, DVT/PE, injury to nerves, vessels, bone, soft tissue, arthrofibrosis, chronic pain, failure of the prosthesis, knee dislocation, leg length discrepancy, need for additional surgery, cardiac and pulmonary events and . The patient wished to proceed with surgery and informed consent was obtained at this time. We will plan for Lovenox post- operatively for DVT prophylaxis. Upon discharge the patient will be discharged home with home health services. Appropriate clearances by PCP, cardiology and recommendations with infectious disease were obtained. The patient's RA medications were held pre-operatively. Patient asymptomatic for UTI. Description of Procedure Components used: [employer] Nexgen LCCK: Femur size D, 10mm distal medial augment, 5mm distal lateral augment, 18 x 75mm sharp fluted stem, tibia size 3 AP wedge, 14 x 75mm sharp fluted stem, 10mm full block augment, [id number] TM cone augment, Tibial articular surface size 17mm LCCK Following induction of general anesthesia, a tourniquet was applied to the proximal aspect of the thigh and the patient's right leg was prepped and draped in the usual sterile manner. A timeout was performed and site gloria verified. Appropriate IV antibiotics were verified and given. The limb was exsanguinated with an esmarch bandage and tourniquet was inflated to 300 mmHg. The prior incision was identified and a longitudinal midline incision was made over the anterior knee. The previous scar was carefully excised. Subcutaneous tissue was sharply dissected down to fascia. Electrocautery was used for hemostasis. Next a medial parapatellar arthrotomy was performed. Meticulous removal of hypertrophic synovium and scar tissue was removed with Bovie. Synovial tissue and implant interface samples x5 were sent for fresh frozen analysis. The patella was subluxed laterally and the knee was flexed. A vick retractor was used to expose the synovium above on the anterior aspect of the femur and removed down to bone. Next, the anterior fat pad was removed to aid in visualization. The medial face of the tibia was cleared of soft tissue first with a bovie and a hannon elevator. This tissue was retracted posteriorly using a blunt hohmann. Once adequate access was obtained to the antibiotic cement spacer we turned our attention to the femur side and utilizing a microsagittal saw loosened the interface between the distal femur component and cement followed by flexible osteotomes. Utilizing bone tamp and mallet, the femur spacer was removed, there was minimal bone loss. Meticulous removal of residual cement from the bone was performed. Next we turned our attention to the proximal tibia and utilizing the microsagittal saw the tibial component and cement interface was disrupted followed by flexible osteotomes. Utilizing to flat wide osteotomes we were able to lever the tibia spacer out of the bone. Once again there was minimal bone loss. Next we meticulously removed remaining cement and cleared the distal femur proximal tibia and any remaining soft tissue. We gained access to both the intramedullary tibia and femur and intramedullary membrane was scraped with curved curettes. Next sequential intramedullary reaming to the 80mm line was performed by hand on both the tibia and the femur until adequate bone chatter was appreciated. Reaming was stopped at 14 mm on the tibia and 18 mm on the femur. At this time the tourniquet was dropped at 42 minutes. We were notified by pathology that fresh frozen samples showed no inflammation x 5 samples. We decided to proceed with revision right total knee at this time. The intramedullary reamer was left in the tibia and the T-handle was removed. The proximal tibia cutting guide was attached to the reamer and pinned in place. Intramedullary reamer was removed and the proximal tibia was cut removing minimal bone until there was a flat cut perpendicular to the mechanical axis. The cutting guide and pins were removed. We confirmed the cut with drop kathryn and spacer block. Next the proximal tibia was assessed and two bent Hohmanns were placed medial and lateral to aid in visualization. With intramedullary reamer in place, the appropriate sized tibial cone sizing template with cone alignment kathryn and bushing was pinned in place with appropriate rotation. The anterior tibia was marked with bovie to designate rotation. The intramedullary reamer, alignment kathryn and bushing was removed. The tibial tray drill bushing was placed and proximal tibia reamed to appropriate depth. All instruments were removed. Next, provisional stem was inserted with cone alignment kathryn. Proximal tibia was broached over the cone alignment kathryn with appropriate depth and rotation. Broach and alignment kathryn were removed and the tibial cone provisional was completely seated which provided good fit and fill of the proximal tibia. The trial size 3 AP wedge tibia with [id number] fluted stem and 10mm full augment plate was attached to the proximal tibia and impacted into place. This provided good fit and fill of the proximal tibia. Next we turned our attention to the distal femur. LCCK provisional femoral cutting guide with appropriate sized straight stem extension was placed on distal femur. The revision epicondylar alignment guide was inserted and appropriate femoral rotation was obtained. The LCCK provisional femoral cutting guide was then pinned into place and alignment guide removed. A 10mm clean up cut was performed through the distal medial femur and 5mm clean up cut was performed through the distal lateral femur. Two smooth-walled gold pins were placed through the anterior holes of the femur guide. The LCCK provisional femoral cutting guide was removed and 4 in 1 femoral cut guide assembly placed over pins and secured into place and smooth-walled pins removed. Anterior/posterior chamfer and posterior femur cuts were freshened up with narrow sagittal saw. Box cut was then performed utilizing a reciprocal saw and the pins and box cut guide were removed. The final trial size D LCCK femur with [id number] fluted stem with 10mm distal medial and 5mm distal lateral augments were inserted. A 14mm PS tibial articular surface was trialed. Sequential trialing was performed, increasing to a tibial articular surface size 17 mm. Varus-valgus balance was assessed in 0 degrees of extension and 30, 60 and 90 degrees of flexion. A final tibial articular surface size 17mm LCCK was chosen. Access was gained to the patella and meticulous removal of fibrous soft tissue and bone spurs surrounding the patella was performed. The knee was found to be well balanced, well aligned, with excellent patellar tracking. The leg was rewrapped with new Esmarch and tourniquet inflated once again at this time. The trials were removed and final components were obtained and assembled on the back table. Aquamantys was utilized for any bleeders and Orthomix solution injected into the posterior capsule. The knee was irrigated with copious amounts of sterile saline solution mixed with bacitracin. Access to the proximal tibia was once again obtained utilizing two bent hohmann retractors and the proximal tibia and distal femur were dried with lap sponges. The final [id number] TM cone augment was inserted, fully seated with appropriate rotation. The final components were cemented into place utilizing Palacos cement and all excess cement was removed. A trial tibial articular surface was placed while cemented hardened. Knee stability was once again assessed and the final tibial articular surface inserted. The knee was injected with the remaining Orthomix solution. A betadine soak was performed for 3 minutes and the knee irrigated once more with sterile saline solution mixed with bacitracin. Hemovac drain was inserted deep to the capsule. The capsulotomy was closed with #1 Vicryl followed by subcutaneous closure with 2-0 Vicryl suture. Skin closure was performed using jorge, sterile dressings were applied which in cluded 4x4s, drain sponge, webril, ramiro wrap. The tourniquet was deflated at this time at 113 minutes of total time for the case. The patient was extubated in the OR and transported to the PACU in stable condition. Due to the complex nature of the procedure, the entire surgery was performed with the operational assistance of Theron Palafox PA-C. The ict sales assistant, under direct supervision, was involved in the actual performance of all aspects of the surgical procedure including patient positioning, hemostasis, tissue retraction, instrument management and wound closure. I attest to the content of the Intraoperative Record and any orders documented therein. Any exceptions are noted below.
[2020-02-28] MEDS ORDERED: HYDROCORTISONE SOD SUCCINATE 100 MG/2 ML VIAL ONE (15:28)
--- NOTE | 2020-02-28 16:23 | XRay Report ---
XR knee RT 1 or 2V routine CLINICAL HISTORY: Surgical Post Op COMPARISON: 12/29/2019 DISCUSSION: There are postsurgical changes of a total right knee arthroplasty revision with longstem tibial and femoral components. The femoral tibial components appear well seated. There is no dislocat ion. There are overlying skin jorge. There are vascular calcifications. The patella is not well dem onstrated on the current images due to the obliquity of the lateral view. IMPRESSION: Postsurgical changes of a total right knee arthroplasty revision ACT 112: Negative or not required by law. Electronically signed by: Deacon May M.D. 02/28/2020 4:21 PM
[2020-02-28] MEDS: fentaNYL citrate 100 MCG/2 ML VIAL IV PRN ×3 (16:32→16:45)
--- NOTE | 2020-02-28 17:06 | Anesthesiology Progress Note ---
Date of Service February 28, 2020 Anesthesia Post Procedure Vital Signs Vital Signs: Temp Pulse Pulse Resp BP Pulse Ox 02/28/20 16:55 63 18 130/76 100 02/28/20 16:45 62 16 153/56 H 100 02/28/20 16:35 58 L 18 132/63 100 02/28/20 16:25 61 18 148/62 H 100 02/28/20 16:15 59 L 16 156/55 H 100 02/28/20 16:05 60 14 148/66 H 100 02/28/20 15:56 36.5 C 59 L 12 139/58 L 100 02/28/20 11:18 60 20 151/68 H 99 02/28/20 10:31 36.9 C 60 18 166/72 H 97 Pain Intensity Left Leg: Pain Intensity: 3 Right Thigh: Pain Intensity: 3 Transfer of Care Handoff Completed per policy Notes Mental Status: alert / awake / arousable Patient Amnestic to Procedure: Yes Nausea / Vomiting: adequately controlled Pain: adequately controlled Airway Patency, RR, SpO2: stable & adequate BP & HR: stable & adequate Hydration State: stable & adequate Anesthetic Complications: no major complications apparent
[2020-02-28] MEDS ORDERED: METOCLOPRAMIDE HCL INJ 5 MG/ML 2 ML VIAL IV PRN (17:34)
[2020-02-28] MEDS ORDERED: HYDROmorphone INJ 0.5 MG/0.5 ML SYR IV PRN (17:34)
[2020-02-28] MEDS ORDERED: bisacodyL 10 MG SUPP PR PRN (17:34)
[2020-02-28] MEDS ORDERED: MAGNESIUM HYDROXIDE SUSP 30 ML UDC PO PRN (17:34)
[2020-02-28] MEDS: SODIUM CHLORIDE 0.9% 1000ML 1,000 ML IV SCH (18:26)
--- NOTE | 2020-02-28 18:55 | Hospitalist Consultation ---
Date of Consultation February 28, 2020 Assessment & Plan (1) Infection associated with internal right knee prosthesis: (2) Open wound of knee: - Admitted to med surg - Pain management, bowel regimen and DVT ppx with faith per the primary team - PT/OT consults - Follow am CBC to monitor for acute blood loss - Dose with vanc and ancef preop - Foul taste in mouth is likely due to intubation/sedation, likely to resolve within next day on its own (3) PAF (paroxysmal atrial fibrillation): - Cont amiodarone, metoprolol 12.5 mg BID, eliquis 5 mg PO BID (4) Paroxysmal SVT (supraventricular tachycardia): - hx of such, stable (5) RA (rheumatoid arthritis): - Continue prednisone 5 mg PO QAM (6) History of Hodgkin's lymphoma: - Diagnosed in 2003, in remission, follows with Dr. Thibodeaux (7) GERD (gastroesophageal reflux disease): - Cont pantoprazole (8) DDD (degenerative disc disease): - As above, cont pain medications psn (9) Anemia: - Chronic, follows with Dr. Thibodeaux and has gotten iron infusions intermittently - last requirement for this was August 2019. She was admitted here 12/29/19 and recieved blood at that time for anemia as well. - Follow am labs (10) DVT prophylaxis: -faith pandey CODE: FULL Dispo: From home, likely to remain in the hospital x 1-2 days. Thank you for involving us in the care of Mrs. Esparza. Please do not hesitate to call with questions or concerns. Medicine service will follow along. Supervising Physician Co-Signing Physician Notes Patient was seen and examined independently I discussed the case with Giulia Gaytan PAC I reviewed pertinent past medical social family history and also the plan of care and agree with the plan of care. Patient is doing well postoperatively after removal of antibiotic spacer and replacement of a total knee arthroplasty. Patient is previously had a spacer for months and has good experience walking with a walker she anticipates going home her medical problems include atrial fibrillation which is controlled with amiodarone typically anticoagulated with apixaban which is appropriately held for surgery restarted afterwards she is on chronic steroids for rheumatoid arthritis and we need to watch for adrenal crisis post surgery although she says she typically does not have a problem with this Physical exam finds her to be with rate controlled heart tones clear lungs and immobilizer in her right leg with good distal sensation and intact perfusion Continue to perioperative management of the above medical problems remains on cefazolin and vancomycin postoperatively per surgical preference for a recent infection with enterococcus Any exceptions will be noted below History of Present Illness Reason for Consultation: Medical management Requesting Physician: Dr. Vela Attending Physician: Ihsan Vela, DO History of Present Illness This is a 69 yo F with pMHx of paroxysmal afib, paroxsysmal SVT, chronic anemia requiring iron infusions, Hodgkin's lymphoma diagnosed in 2003, RA, GERD, chronic back pain, degenerative disc disease who presented for elective R knee arthroplasty revision and removal of antibiotic spacer by Dr. Vela on 02/28/20. She reports feeling ok, but that there is a funny taste in her mouth and food just doesn't taste right (dinner tray is on the table in front of her). Her pain is not optimally controlled right now, and she is asking for pain medication. Pt has not gotten up to use the bathroom [facility]. Otherwise she is doing well. Allergies Allergy/AdvReac Type Severity Reaction Status Date / Time dalbavancin Allergy Severe hypotension, Verified 02/28/20 10:03 flushing, tachypnea Home Medications Home Medications Medication Instructions Recorded Confirmed Type Probiotic 3,000 mmu cells PO QAM 03/30/18 02/28/20 History gabapentin 100 mg PO TID 03/30/18 02/28/20 History prednisone 1 mg PO QPM 03/30/18 02/28/20 History prednisone 5 mg PO QAM 03/30/18 02/28/20 History cranberry 500 mg PO QPM 09/29/18 02/28/20 History omeprazole 20 mg PO BID 09/29/18 02/28/20 History Macuvite [facility] Care 1 tab PO QAM 10/08/18 02/28/20 History leg brace #1 ea 02/10/19 02/23/20 Rx Calcium 600 + D(3) 1 cap PO BID 06/07/19 02/28/20 History sennosides [Senokot] 17.2 mg PO HS 08/11/19 02/28/20 History apixaban 5 mg tablet 5 mg PO BID #180 tab 01/16/20 02/28/20 Rx metoprolol tartrate 25 mg tablet 12.5 mg PO BID #90 tab 01/16/20 02/28/20 Rx oxybutynin chloride 5 mg tablet 5 mg PO BID #180 tab 01/16/20 02/28/20 Rx amiodarone 200 mg tablet 200 mg PO QAM #90 tab 01/24/20 02/28/20 Rx calcitriol [Rocaltrol] 0.5 mcg PO 2XWK 02/21/20 02/28/20 History docusate sodium 100 mg PO HS PRN 02/21/20 02/28/20 History hydroxychloroquine [Plaquenil] 200 mg PO BID 02/21/20 02/28/20 History leflunomide [Arava] 20 mg PO QAM 02/21/20 02/28/20 History oxycodone [Roxicodone] 5 mg PO Q6H PRN MDD 4 02/28/20 02/28/20 History Patient History Medical History (Updated 02/28/20 @ 18:51 by Lucille Ling PA-C) Anemia follows with Dr. Thibodeaux, s/p IV iron infusions Chronic back pain DDD (degenerative disc disease) GERD (gastroesophageal reflux disease) controlled History of Hodgkin's lymphoma 2003/under surveillance by PCP/Dr. Thibodeaux History of oral cancer s/p tongue excision left side (no chemo/no XRT 2013) Overactive bladder PAF (paroxysmal atrial fibrillation) hx Paroxysmal SVT (supraventricular tachycardia) hx RA (rheumatoid arthritis) on chronic steroid Skin benign neoplasm Vertigo Surgical History H/O foot surgery TOES X MULTIPLE H/O parathyroidectomy History of biopsy Of soft tissue of the neck History of breast surgery Puncture aspiration of cyst History of carpal tunnel release RIGHT History of colonoscopy History of colposcopy with cervical biopsy with endocervical curettage History of glossectomy with unilateral radical neck dissection History of hip surgery R/L REVISION Left MAURO revision: 11/09/18: SABx1 at L3-L4 at [facility] History of total hip arthroplasty R/L History of total knee replacement R/L History of tubal ligation Hx of hand surgery RIGHT Hx of knee surgery Right TKA revision, I&D, antibiotic spacer: 12/29/19: SAB + PNB at [facility] S/P revision of total knee 12/29/19 Dr. Ihsan Vela- Right total knee revision, Incision and drainage with antibiotic cement spacer Family History Mother Breast cancer Colorectal cancer Cancer Gastric cancer Aunt Colorectal cancer Other Family history non-contributory Denies family history of Ovarian cancer Prostate cancer Myocardial infarction Social History Smoking Status: Never smoker Second Hand Exposure: No; Do You Dip or Chew Tobacco: No; Tobacco Cessation Education Requested by Patient: No Hx Alcohol Use: No Hx Substance Use: No Preferred Language: Polish Communication Ability: Effective Visual Impairment: Limited 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: Normal Gill Box Fixer Required: No Beliefs That Will Affect Care: None marital status: Current Living Situation: Spouse current occupational status: retired Other Information That Helps Us Care for You: No Feels Safe at Home: Yes Safety Concerns: Feels Safe At This Time Childhood Exposure to Second-Hand Smoke: Yes Seatbelt Use: always Review of Systems Review of Systems: Constitutional: No fever, sweats or chills Eyes: No diplopia, no worsening or blurred vision ENT: normal hearing, no trouble swallowing, + residual taste in mouth since surgery Respiratory: No cough, sputum, dyspnea at rest or on exertion Cardiovascular: No chest pain, tightness or palpitations Abdomen: No pain, nausea, vomiting, diarrhea or constipation Musculoskeletal:+ R knee pain, otherwise no joint pain, calf pain, swelling Neurologic: No weakness, numbness/tingling, or balance problems Psychiatric: No anxiety or depression Skin: No rash or itch Physical Exam Physical Exam: General: awake, alert, no apparent distress Head: Normocephalic, atraumatic ENT: PERRL, EOMI, no pharyngeal exudate, mucous membranes moist Chest: on room air, + faint expiratory wheeze throughout, faint crackles bases bilaterally Cardiac: Regular rate and rhythm, few extra beats, no murmur, no JVD, normal peripheral pulses, good capillary refill Abdominal: NABS x 4 quadrants, soft, nondistended, nontender to palpation, no rebound, guarding or tenderness Extremities: R knee with dressing, brace and ice pack in place, can move ankle and toes on command, hemovac drain in place, otherwise Normal inspection, no peripheral edema or erythema, calfs nontender to palpation Psych: Normal mood and affect Neuro: AAO x 3, no gross motor deficits, speech is clear, no peripheral sensory deficits Results & Data Results & Data ([facility]) Vital Signs (Past 12 Hours) Vital Signs Temp Pulse Pulse Resp BP Pulse Ox 02/28/20 17:52 36.8 C 58 L 16 146/75 H 95 02/28/20 17:05 37 C 59 L 16 159/62 H 100 02/28/20 16:55 63 18 130/76 100 02/28/20 16:45 62 16 153/56 H 100 02/28/20 16:35 58 L 18 132/63 100 02/28/20 16:25 61 18 148/62 H 100 02/28/20 16:15 59 L 16 156/55 H 100 02/28/20 16:05 60 14 148/66 H 100 02/28/20 15:56 36.5 C 59 L 12 139/58 L 100 02/28/20 11:18 60 20 151/68 H 99 02/28/20 10:31 36.9 C 60 18 166/72 H 97 PG Care Time/CCT Total # of Minutes Spent Total Time Spent with Patient: Total time spent is greater than 50% in coordination of care (as documented) at patient's floor/unit and/or counseling patient: Coding Level of Care Code 23620 Inpt Consult Level 4 Diagnoses Infection associated with internal right knee prosthesis T84.53XA Encounter type: initial encounter Open wound of knee S81.001A Encounter type: initial encounter Laterality: right PAF (paroxysmal atrial fibrillation) I48.0 Paroxysmal SVT (supraventricular tachycardia) I47.1 RA (rheumatoid arthritis) M06.9 History of Hodgkin's lymphoma Z85.71 GERD (gastroesophageal reflux disease) K21.9 DDD (degenerative disc disease) Anemia D64.9 DVT prophylaxis Z29.9 (1) Open wound of knee Encounter type: initial encounter Laterality: right Qualified Code(s): S81.001A - Unspecified open wound, right knee, initial encounter (2) Infection associated with internal right knee prosthesis Encounter type: initial encounter Qualified Code(s): T84.53XA - Infection and inflammatory reaction due to internal right knee prosthesis, initial encounter
[2020-02-28] MEDS: OXYCODONE HCL IR 5 MG TAB (IMMEDIATE RELEASE) PO PRN (19:10)
--- NOTE | 2020-02-28 19:28 | Orthopedic Progress Note ---
Date of Service February 28, 2020 Assessment & Plan (1) Infection associated with internal right knee prosthesis: s/p explant antibiotic cement spacer, revision right TKA -vanco/ancef x 48 -DVT PPX: SCDs, TEDs, Eliquis -PT/OT -WBAT RLE -Maintain KI -PO XR demonstrates well aligned well fixed prothesis without fracture/dislocation -am labs -DC planning Admission and Anticipated Discharge Date Admission Date: February 28, 2020 Subjective Post Operative Progress Note Patient seen laying in bed, comfortable, denies complaints, pain well controlled, no acute issues. Review of Systems Review of Systems: All systems reviewed & are unremarkable except as noted in HPI & below Constitutional: as per Subjective / HPI Physical Exam Physical Exam: RLE NVSI +EHL/FHL/TA/GS SILT grossly, +2 DP pulse, compartments soft NT, dressing cdi. Constitutional: WD/WN, vitals as above Results & Data ([facility]) Vital Signs (Past 12 Hours) Vital Signs Temp Pulse Pulse Pulse Resp BP Pulse Ox 02/28/20 19:18 36.7 C 63 17 116/71 96 02/28/20 18:45 61 16 135/66 99 02/28/20 17:52 36.8 C 58 L 16 146/75 H 95 02/28/20 17:05 37 C 59 L 16 159/62 H 100 02/28/20 16:55 63 18 130/76 100 02/28/20 16:45 62 16 153/56 H 100 02/28/20 16:35 58 L 18 132/63 100 02/28/20 16:25 61 18 148/62 H 100 02/28/20 16:15 59 L 16 156/55 H 100 02/28/20 16:05 60 14 148/66 H 100 02/28/20 15:56 36.5 C 59 L 12 139/58 L 100 02/28/20 11:18 60 20 151/68 H 99 02/28/20 10:31 36.9 C 60 18 166/72 H 97 (1) Infection associated with internal right knee prosthesis Encounter type: initial encounter Qualified Code(s): T84.53XA - Infection and inflammatory reaction due to internal right knee prosthesis, initial encounter
[2020-02-28] MEDS: OXYBUTYNIN CHLORIDE 5 MG TAB PO SCH (20:35)
[2020-02-28] MEDS: GABAPENTIN 100 MG CAP PO SCH (20:36)
[2020-02-28] MEDS: METOPROLOL TARTRATE 25 MG TAB PO SCH (20:36)
[2020-02-28] MEDS: PANTOprazole 40 MG TAB PO SCH (20:37)
[2020-02-28] MEDS: SENNA 8.6 MG TAB PO SCH (20:37)
[2020-02-28] MEDS: predniSONE 1 MG TAB PO SCH (20:37)
[2020-02-28] MEDS: DOCUSATE SODIUM 100 MG CAP PO SCH (20:38)
[2020-02-28] MEDS ORDERED: SENNA 8.6 MG TAB PO SCH (21:00)
[2020-02-28] MEDS: VANCOMYCIN HCL 1,250 MG in SODIUM CHLORIDE 0.9% 250 ML IV SCH (21:13)
[2020-02-28] MEDS: CEFAZOLIN 1000MG 1,000 MG/7.5 ML SYR IV SCH (21:56)
[2020-02-28] MEDS: ACETAMINOPHEN 500 MG TAB PO SCH (21:56)
[2020-02-29] MEDS: CEFAZOLIN 1000MG 1,000 MG/7.5 ML SYR IV SCH ×2 (04:16→16:09)
[2020-02-29] MEDS: OXYCODONE HCL IR 5 MG TAB (IMMEDIATE RELEASE) PO PRN ×3 (04:21→16:09)
[2020-02-29] MEDS: SODIUM CHLORIDE 0.9% 1000ML 1,000 ML IV SCH ×3 (04:49→19:52)
[2020-02-29] MEDS ORDERED: VANCOMYCIN HCL 1,000 MG/270 ML BAG IV SCH (06:00)
[2020-02-29] MEDS: ACETAMINOPHEN 500 MG TAB PO SCH ×3 (06:03→20:22)
[2020-02-29 06:05] LABS: Hemoglobin 8.3 g/dL (12.0-16.0); Mean Corpuscular Hemoglobin 26.9 pg (25-34); Mean Corpuscular Hgb Conc 29.6 g/dL (32-36); Mean Corpuscular Volume 90.9 fL (80-100); Mean Platelet Volume 9.1 fL (7.4-10.4); Platelet Count 244 K/uL (130-400); RDW Coefficient of Variation 17.9 % (11.5-14.5); RDW Standard Deviation 60.3 fL (36.4-46.3); Red Blood Count 3.08 M/uL (4.2-5.4); White Blood Count 9.57 K/uL (4.8-10.8)
[2020-02-29 06:26] LABS: Potassium 5.1 mmol/L (3.5-5.1)
[2020-02-29 06:27] LABS: BUN Creatinine Ratio 13.7 (10-20); Calcium 8.2 mg/dl (8.5-10.1); Creatinine Clr Calc Pharmacy 26.3 ml/min; Est GFR (African American) 38.6; Est GFR (Non-African American) 33.3
--- NOTE | 2020-02-29 07:42 | Orthopedic Progress Note ---
Date of Service February 29, 2020 Assessment & Plan (1) Infection associated with internal right knee prosthesis: s/p explant antibiotic cement spacer, revision right TKA POD#1 -vanco/ancef x 48 -DVT PPX: SCDs, TEDs, Eliquis -PT/OT -WBAT RLE -Maintain KI -Monitor drain output, 125/425 -PO XR demonstrates well aligned well fixed prothesis without fracture/dislocation -am labs - as above, hgb 8.3 -DC planning - home with Admission and Anticipated Discharge Date Admission Date: February 28, 2020 Subjective Post Operative Progress Note Patient seen laying in bed, comfortable, denies complaints, pain well controlled, no acute issues. Denies F/C/N/V/SOB/CP. Review of Systems Review of Systems: All systems reviewed & are unremarkable except as noted in HPI & below Constitutional: as per Subjective / HPI Physical Exam Physical Exam: RLE NVSI +EHL/FHL/TA/GS SILT grossly, +2 DP pulse, compartments soft NT, dressing cdi. KI and HMV drain intact Constitutional: WD/WN, vitals as above Results & Data ([facility]) Vital Signs (Past 12 Hours) Vital Signs Temp Pulse Pulse Resp BP Pulse Ox 02/29/20 02:47 36.5 C 59 L 16 101/62 97 02/28/20 23:20 37.1 C 63 16 103/61 95 02/28/20 20:41 36.6 C 63 17 152/74 H 97 Laboratory Results 02/29/20 02/29/20 02/28/20 Range/Units 05:46 05:46 10:10 WBC 9.57 (4.8-10.8) K/uL RBC 3.08 L (4.2-5.4) M/uL Hgb 8.3 L (12.0-16.0) g/dL Hct 28.0 L (37-47) % MCV 90.9 (80-100) fL MCH 26.9 (25-34) pg MCHC 29.6 L (32-36) g/dL RDW Std Deviation 60.3 H (36.4-46.3) fL RDW Coeff of Jarvis 17.9 H (11.5-14.5) % Plt Count 244 (130-400) K/uL MPV 9.1 (7.4-10.4) fL Sodium 142 (136-145) mmol/L Potassium 5.1 (3.5-5.1) mmol/L Chloride 111 H (98-107) mmol/L Carbon Dioxide 24 (21-32) mmol/L Anion Gap 7.0 (3-11) BUN 21 H (7-18) mg/dl Creatinine 1.55 H (0.6-1.2) mg/dl Est Cr Clr Drug Dosing 26.3 ml/min Est GFR ( Amer) 38.6 Est GFR (Non-Af Amer) 33.3 BUN/Creatinine Ratio 13.7 (10-20) Glucose 106 H (70-99) mg/dl Calcium 8.2 L (8.5-10.1) mg/dl Blood Type O Positive Antibody Screen NEGATIVE Crossmatch See Detail (1) Infection associated with internal right knee prosthesis Encounter type: initial encounter Qualified Code(s): T84.53XA - Infection and inflammatory reaction due to internal right knee prosthesis, initial encounter
--- NOTE | 2020-02-29 08:14 | Anesthesiology Progress Note ---
Date of Service February 29, 2020 Anesthesia Post Procedure Vital Signs Vital Signs: Temp Pulse Pulse Pulse Pulse Resp BP 02/29/20 02:47 36.5 C 59 L 16 101/62 02/28/20 23:20 37.1 C 63 16 103/61 02/28/20 20:41 36.6 C 63 17 152/74 H 02/28/20 19:18 36.7 C 63 17 116/71 02/28/20 18:45 61 16 135/66 02/28/20 17:52 36.8 C 58 L 16 146/75 H 02/28/20 17:05 37 C 59 L 16 159/62 H 02/28/20 16:55 63 18 130/76 02/28/20 16:45 62 16 153/56 H 02/28/20 16:35 58 L 18 132/63 02/28/20 16:25 61 18 148/62 H 02/28/20 16:15 59 L 16 156/55 H 02/28/20 16:05 60 14 148/66 H 02/28/20 15:56 36.5 C 59 L 12 139/58 L 02/28/20 11:18 60 20 151/68 H 02/28/20 10:31 36.9 C 60 18 166/72 H Pulse Ox 02/29/20 02:47 97 02/28/20 23:20 95 02/28/20 20:41 97 02/28/20 19:18 96 02/28/20 18:45 99 02/28/20 17:52 95 02/28/20 17:05 100 02/28/20 16:55 100 02/28/20 16:45 100 02/28/20 16:35 100 02/28/20 16:25 100 02/28/20 16:15 100 02/28/20 16:05 100 02/28/20 15:56 100 02/28/20 11:18 99 02/28/20 10:31 97 Pain Intensity Left Leg: Pain Intensity: 3 Right Thigh: Pain Intensity: 3 Notes Mental Status: alert / awake / arousable Patient Amnestic to Procedure: Yes Nausea / Vomiting: adequately controlled Pain: adequately controlled Airway Patency, RR, SpO2: stable & adequate BP & HR: stable & adequate Hydration State: stable & adequate Anesthetic Complications: no major complications apparent and Pt Satisfied with anesthetic care
[2020-02-29] MEDS: DOCUSATE SODIUM 100 MG CAP PO SCH ×2 (08:44→20:19)
[2020-02-29] MEDS: AMIODARONE 200 MG TAB PO SCH (08:45)
[2020-02-29] MEDS: predniSONE 5 MG TAB PO SCH (08:45)
[2020-02-29] MEDS: APIXABAN 5 MG TABLET PO SCH ×2 (08:46→20:20)
[2020-02-29] MEDS: OXYBUTYNIN CHLORIDE 5 MG TAB PO SCH ×2 (08:46→20:20)
[2020-02-29] MEDS: PANTOprazole 40 MG TAB PO SCH ×2 (08:46→20:20)
[2020-02-29] MEDS: MULTIVITAMIN TAB PO SCH (08:46)
[2020-02-29] MEDS: METOPROLOL TARTRATE 25 MG TAB PO SCH ×2 (08:47→20:23)
[2020-02-29] MEDS: GABAPENTIN 100 MG CAP PO SCH ×3 (08:47→20:21)
--- NOTE | 2020-02-29 09:10 | Hospitalist Progress Note ---
Date of Service February 29, 2020 Assessment & Plan (1) Infection associated with internal right knee prosthesis: * POD # 1 s/p RIGHT KNEE revision and antibiotic spacer removal. Pre-op h/h 11.7/38.3. EBL 140cc, total blood loss to date 565mL. * H/h down to 8.3/28.0 -- acute blood loss likely combination from surgery as well as dilutional as patient has received copious fluids. * PT/OT/pain management/DVT prophylaxis per ortho * Vanco/Cefazolin per primary service * Repeat CBC this afternoon and transfuse if needed (previous admission required trasnfusion) * Patient planning home with home health, possibly tomorrow if h/h stable (2) SALONI (acute kidney injury): * Cr bumped to 1.55. Baseline <1. * Likely secondary to acute blood loss as well as dehydration. Low UO * Urine concentrated from Babin * Ordered IVF NSS @ 100cc/hr * Repeat BMP in AM (3) Acute blood loss anemia: * See above (4) PAF (paroxysmal atrial fibrillation): * Chronic. Stable * Continue amiodarone, metoprolol 12.5 mg BID, eliquis 5 mg PO BID (5) Paroxysmal SVT (supraventricular tachycardia): * Noted history. stable (6) RA (rheumatoid arthritis): * Chronic. Stable * Continue prednisone 5 mg PO QAM/1mg PO QHS-- monitor for s/sx adrenal insufficiency although patient did not have issues with this last admission (7) History of Hodgkin's lymphoma: * Diagnosed in 2003, in remission, follows with Dr. Thibodeaux and also follows for periodic iron transfusions (8) GERD (gastroesophageal reflux disease): * Stable * Continue pantoprazole (9) DDD (degenerative disc disease): * As above, cont pain medications prn (10) Anemia: * Chronic, follows with Dr. Thibodeaux and has gotten iron infusions intermittently - last requirement for this was August 2019. She was admitted here 12/29/19 and received blood at that time for anemia as well. * See above -- baseline appears closer to 9. Not on oral iron supplementation but she states Dr. Tang has told her in the past there is a reason for this * Follow am labs (11) Sciatica: * Lidocaine patch * Continue home gabapentin * Continue to monitor -- could order K-pad if needed additional control (12) DVT prophylaxis: * Simone * Meghna Thank you for involving us in the care of Mrs. Esparza. Please do not hesitate to call with questions or concerns. Medicine service will follow along. Admission and Anticipated Discharge Date Admission Date: February 28, 2020 Supervising Physician Co-Signing Physician Notes Attending Attestation: Chart reviewed, care plan d/w PA Jeaneth Marquez. I agree w/ the chapman components of her documentation. POD #1 - s/p revision of right TKR and removal of abx spacer. complicated by significant acute blood loss anemia - to transfuse PRBCs today. also complicated by mild SALONI - peak Cr 1.55. supportive care for SALONI. cont IV antibiotics. Tang Landaverde MD Subjective Patient evaluated this morning. Doing well. Pain well controlled except she is having some sciatica pain on her left side that is worse with walking. Agreeable to trial lidocaine patch for some added relief. Did not have much to eat or drink last night as she got back to her room late and had a little bit for dinner before going to bed. Confirms her mouth is dry and she has been trying to sip more frequently on water. States she did have some leakage around hemovac this morning but nothing further now that it is hooked back up. Previously emptied once this morning. Has not worked with therapy yet but is hopeful for possibly discharge tomorrow without antibiotics this time which is a nice change for her given complicated course this year with IV antibiotics and spacer. Denies chest pain, shortness of breath, abdominal pain, n/v/d or dysuria at this time. Review of Systems Review of Systems: All systems reviewed & are unremarkable except as noted in HPI & below Physical Exam Constitutional: WD/WN, vitals as above no acute distress Eyes: + anicteric sclerae and PERRL ENMT: dry mm Respiratory: normal respiratory effort, lungs clear to auscultation Cardiovascular: RRR, no murmur, no edema Gastrointestinal (Abdomen): normal bowel sounds, soft, nontender, no hepatosplenomegaly Musculoskeletal: right knee immobilizer in place dressing c/d/i hemovac with bloody drainage around hub, approximately 50cc bloody drainage present NVI 2+ dp, pt pulses bilaterally Skin: warm, dry Neurologic: patellar DTR's 2+ bilat, sensation intact and PERRL, EOMI, accommodation nl, no face palsy, no dysarthria Psychiatric: A+Ox3, euthymic affect Genitourinary: babin draining concentrated urine Lymphatic: no cervical or axillary lymphadenopathy Results & Data Results & Data ([facility]) Vital Signs (Past 12 Hours) Vital Signs Temp Pulse Resp BP Pulse Ox 02/29/20 08:37 36.9 C 65 16 126/63 98 02/29/20 02:47 36.5 C 59 L 16 101/62 97 02/28/20 23:20 37.1 C 63 16 103/61 95 Laboratory Results 02/29/20 02/29/20 02/28/20 Range/Units 05:46 05:46 10:10 WBC 9.57 (4.8-10.8) K/uL RBC 3.08 L (4.2-5.4) M/uL Hgb 8.3 L (12.0-16.0) g/dL Hct 28.0 L (37-47) % MCV 90.9 (80-100) fL MCH 26.9 (25-34) pg MCHC 29.6 L (32-36) g/dL RDW Std Deviation 60.3 H (36.4-46.3) fL RDW Coeff of Jarvis 17.9 H (11.5-14.5) % Plt Count 244 (130-400) K/uL MPV 9.1 (7.4-10.4) fL Sodium 142 (136-145) mmol/L Potassium 5.1 (3.5-5.1) mmol/L Chloride 111 H (98-107) mmol/L Carbon Dioxide 24 (21-32) mmol/L Anion Gap 7.0 (3-11) BUN 21 H (7-18) mg/dl Creatinine 1.55 H (0.6-1.2) mg/dl Est Cr Clr Drug Dosing 26.3 ml/min Est GFR ( Amer) 38.6 Est GFR (Non-Af Amer) 33.3 BUN/Creatinine Ratio 13.7 (10-20) Glucose 106 H (70-99) mg/dl Calcium 8.2 L (8.5-10.1) mg/dl Blood Type O Positive Antibody Screen NEGATIVE Crossmatch See Detail PG Care Time/CCT Total # of Minutes Spent Total Time Spent with Patient: Total time spent is greater than 50% in coordination of care (as documented) at patient's floor/unit and/or counseling patient: Coding Level of Care Code 98447 Subseq Hosp Care Lvl 3 Diagnoses Infection associated with internal right knee prosthesis T84.53XA Encounter type: initial encounter SALONI (acute kidney injury) N17.9 Acute blood loss anemia D62 PAF (paroxysmal atrial fibrillation) I48.0 Paroxysmal SVT (supraventricular tachycardia) I47.1 RA (rheumatoid arthritis) M06.9 History of Hodgkin's lymphoma Z85.71 GERD (gastroesophageal reflux disease) K21.9 DDD (degenerative disc disease) Anemia D64.9 Sciatica M54.30 DVT prophylaxis Z29.9 (1) Infection associated with internal right knee prosthesis Encounter type: initial encounter Qualified Code(s): T84.53XA - Infection and inflammatory reaction due to internal right knee prosthesis, initial encounter
[2020-02-29] MEDS: LIDOCAINE 5% 1 PATCH TD SCH (12:39)
[2020-02-29 17:02] LABS: Hematocrit (blood only) 25.5 % (37-47); Hemoglobin 7.8 g/dL (12.0-16.0); Mean Corpuscular Hemoglobin 27.6 pg (25-34); Mean Corpuscular Hgb Conc 30.6 g/dL (32-36); Mean Corpuscular Volume 90.1 fL (80-100); Platelet Count 230 K/uL (130-400); RDW Coefficient of Variation 18.1 % (11.5-14.5); RDW Standard Deviation 60.3 fL (36.4-46.3); Red Blood Count 2.83 M/uL (4.2-5.4); White Blood Count 8.73 K/uL (4.8-10.8)
[2020-02-29 17:18] LABS: BUN Creatinine Ratio 17.3 (10-20); Calcium 7.7 mg/dl (8.5-10.1); Creatinine Clr Calc Pharmacy 31.9 ml/min; Est GFR (African American) 48.7; Potassium 4.7 mmol/L (3.5-5.1)
[2020-02-29] MEDS ORDERED: SODIUM CHLORIDE 0.9% 250 ML IV PRN (17:31)
[2020-02-29] MEDS: VANCOMYCIN HCL 1,250 MG in SODIUM CHLORIDE 0.9% 250 ML IV SCH (20:16)
[2020-02-29] MEDS: SENNA 8.6 MG TAB PO SCH (20:19)
[2020-02-29] MEDS: predniSONE 1 MG TAB PO SCH (20:21)
[2020-02-29] MEDS ORDERED: predniSONE 1 MG TAB PO ONE (21:00)
[2020-03-01] MEDS: OXYCODONE HCL IR 5 MG TAB (IMMEDIATE RELEASE) PO PRN ×2 (00:12→10:04)
[2020-03-01] MEDS: CEFAZOLIN 1000MG 1,000 MG/7.5 ML SYR IV SCH (03:02)
[2020-03-01] MEDS: SODIUM CHLORIDE 0.9% 1000ML 1,000 ML IV SCH (05:07)
[2020-03-01] MEDS: ACETAMINOPHEN 500 MG TAB PO SCH (05:55)
[2020-03-01 06:38] LABS: Hematocrit (blood only) 29.8 % (37-47); Hemoglobin 9.4 g/dL (12.0-16.0); Mean Corpuscular Hemoglobin 27.9 pg (25-34); Mean Corpuscular Hgb Conc 31.5 g/dL (32-36); Mean Corpuscular Volume 88.4 fL (80-100); Mean Platelet Volume 9.2 fL (7.4-10.4); Platelet Count 199 K/uL (130-400); RDW Coefficient of Variation 17.7 % (11.5-14.5); RDW Standard Deviation 57.4 fL (36.4-46.3); Red Blood Count 3.37 M/uL (4.2-5.4); White Blood Count 7.22 K/uL (4.8-10.8)
[2020-03-01 07:12] LABS: BUN Creatinine Ratio 17.5 (10-20); Creatinine Clr Calc Pharmacy 41.6 ml/min; Est GFR (African American) 67.3; Potassium 4.5 mmol/L (3.5-5.1)
--- NOTE | 2020-03-01 08:38 | Orthopedic Progress Note ---
Date of Service March 01, 2020 Assessment & Plan (1) Infection associated with internal right knee prosthesis: s/p explant antibiotic cement spacer, revision right TKA POD#2 -vanco/ancef x 48 -DVT PPX: SCDs, TEDs, Eliquis -PT/OT -WBAT RLE -Maintain KI -Drain DC'd -PO XR demonstrates well aligned well fixed prothesis without fracture/dislocation -am labs - as above, hgb 9.4, received PRBC, Cr .98 -DC planning - home with HH POD#1 -vanco/ancef x 48 -DVT PPX: SCDs, TEDs, Eliquis -PT/OT -WBAT RLE -Maintain KI -Monitor drain output, 125/425 -PO XR demonstrates well aligned well fixed prothesis without fracture/dislocation -am labs - as above, hgb 8.3 -DC planning - home with Admission and Anticipated Discharge Date Admission Date: February 28, 2020 Subjective Post Operative Progress Note Patient seen sitting up in bed, comfortable, denies complaints, pain well controlled, no acute issues. Denies F/C/N/V/SOB/CP. Review of Systems Review of Systems: All systems reviewed & are unremarkable except as noted in HPI & below Constitutional: as per Subjective / HPI Physical Exam Physical Exam: RLE NVSI +EHL/FHL/TA/GS SILT grossly, +2 DP pulse, compartments soft NT, incision cdi. Constitutional: WD/WN, vitals as above Results & Data ([place]) Vital Signs (Past 12 Hours) Vital Signs Temp Pulse Resp BP Pulse Ox 03/01/20 03:00 37.1 C 73 16 146/71 H 98 03/01/20 01:40 37.4 C 80 16 116/72 95 03/01/20 00:40 36.7 C 69 16 133/73 97 03/01/20 00:10 36.6 C 75 16 143/79 H 97 02/29/20 23:40 37.1 C 75 16 131/70 96 02/29/20 23:20 37 C 76 16 128/68 98 02/29/20 23:05 37 C 73 18 120/67 95 Laboratory Results 03/01/20 03/01/20 02/29/20 Range/Units 06:11 06:11 16:40 WBC 7.22 (4.8-10.8) K/uL RBC 3.37 L (4.2-5.4) M/uL Hgb 9.4 L (12.0-16.0) g/dL Hct 29.8 L (37-47) % MCV 88.4 (80-100) fL MCH 27.9 (25-34) pg MCHC 31.5 L (32-36) g/dL RDW Std Deviation 57.4 H (36.4-46.3) fL RDW Coeff of Jarvis 17.7 H (11.5-14.5) % Plt Count 199 (130-400) K/uL MPV 9.2 (7.4-10.4) fL Sodium 143 139 (136-145) mmol/L Potassium 4.5 4.7 (3.5-5.1) mmol/L Chloride 115 H 111 H (98-107) mmol/L Carbon Dioxide 24 25 (21-32) mmol/L Anion Gap 3.0 3.0 (3-11) BUN 17 22 H (7-18) mg/dl Creatinine 0.98 D 1.28 H (0.6-1.2) mg/dl Est Cr Clr Drug Dosing 41.6 31.9 ml/min Est GFR ( Amer) 67.3 48.7 Est GFR (Non-Af Amer) 58.0 42.0 BUN/Creatinine Ratio 17.5 17.3 (10-20) Glucose 116 H 109 H (70-99) mg/dl Calcium 8.0 L 7.7 L (8.5-10.1) mg/dl Blood Type Antibody Screen Crossmatch 02/29/20 02/28/20 Range/Units 16:40 10:10 WBC 8.73 (4.8-10.8) K/uL RBC 2.83 L (4.2-5.4) M/uL Hgb 7.8 L (12.0-16.0) g/dL Hct 25.5 L (37-47) % MCV 90.1 (80-100) fL MCH 27.6 (25-34) pg MCHC 30.6 L (32-36) g/dL RDW Std Deviation 60.3 H (36.4-46.3) fL RDW Coeff of Jarvis 18.1 H (11.5-14.5) % Plt Count 230 (130-400) K/uL MPV 9.0 (7.4-10.4) fL Sodium (136-145) mmol/L Potassium (3.5-5.1) mmol/L Chloride (98-107) mmol/L Carbon Dioxide (21-32) mmol/L Anion Gap (3-11) BUN (7-18) mg/dl Creatinine (0.6-1.2) mg/dl Est Cr Clr Drug Dosing ml/min Est GFR ( Amer) Est GFR (Non-Af Amer) BUN/Creatinine Ratio (10-20) Glucose (70-99) mg/dl Calcium (8.5-10.1) mg/dl Blood Type O Positive Antibody Screen NEGATIVE Crossmatch See Detail (1) Infection associated with internal right knee prosthesis Encounter type: initial encounter Qualified Code(s): T84.53XA - Infection and inflammatory reaction due to internal right knee prosthesis, initial encounter
[2020-03-01] MEDS: DOCUSATE SODIUM 100 MG CAP PO SCH (09:06)
[2020-03-01] MEDS: MULTIVITAMIN TAB PO SCH (09:06)
[2020-03-01] MEDS: METOPROLOL TARTRATE 25 MG TAB PO SCH (09:07)
[2020-03-01] MEDS: AMIODARONE 200 MG TAB PO SCH (09:07)
[2020-03-01] MEDS: APIXABAN 5 MG TABLET PO SCH (09:08)
[2020-03-01] MEDS: GABAPENTIN 100 MG CAP PO SCH (09:08)
[2020-03-01] MEDS: LIDOCAINE 5% 1 PATCH TD SCH (09:09)
[2020-03-01] MEDS: PANTOprazole 40 MG TAB PO SCH (09:09)
[2020-03-01] MEDS: OXYBUTYNIN CHLORIDE 5 MG TAB PO SCH (09:09)
--- NOTE | 2020-03-01 10:00 | Hospitalist Progress Note ---
Date of Service March 01, 2020 Assessment & Plan (1) Infection associated with internal right knee prosthesis: * POD # 2 s/p RIGHT KNEE revision and antibiotic spacer removal. Pre-op h/h 11.7/38.3. EBL 140cc. * Hemoglobin dropped to 7.8 evening of 02/28 -- transfused 1 unit PRBC with improvement of h/h to 9.4/29.8 on AM labs * PT/OT/pain management/DVT prophylaxis per ortho * Vanco/Cefazolin per primary service --> to be discharged on * Repeat CBC this afternoon and transfuse if needed (previous admission required transfusion) * Patient planning home with home health, possibly later today per primary service * Rec'd repeat CBC in 2-3 days outpatient to ensure stability of blood count (2) SALONI (acute kidney injury): * Cr bumped to 1.55. Baseline <1. Likely combination of acute blood loss from surgery as well as dehydration * RESOLVED * Ordered IVF with improvement of Cr to 1.28 last evening and back to baseline today at 0.98 * IVF discontinued (3) Acute blood loss anemia: * See above (4) PAF (paroxysmal atrial fibrillation): * Chronic. Stable * Continue amiodarone, metoprolol 12.5 mg BID, eliquis 5 mg PO BID (5) Paroxysmal SVT (supraventricular tachycardia): * Noted history. stable (6) RA (rheumatoid arthritis): * Chronic. Stable * Continue prednisone 5 mg PO QAM/1mg PO QHS-- monitor for s/sx adrenal insufficiency although patient did not have issues with this last admission * Given extra 1mg PO dose last evening * Stable (7) History of Hodgkin's lymphoma: * Diagnosed in 2003, in remission, follows with Dr. Thibodeaux and also follows for periodic iron transfusions (8) GERD (gastroesophageal reflux disease): * Stable * Continue pantoprazole (9) DDD (degenerative disc disease): * As above, cont pain medications prn (10) Anemia: * Chronic, follows with Dr. Thibodeaux and has gotten iron infusions intermittently - last requirement for this was August 2019. She was admitted here 12/29/19 and received blood at that time for anemia as well. * See above (11) Sciatica: * Lidocaine patch --> sent rx outpatient. She is going to have follow up with pain management for possible injections in the future but wanted to trial these at home for some added relief * Continue home gabapentin * Continue to monitor -- could order K-pad if needed additional control (12) DVT prophylaxis: * Simone * Meghna Thank you for involving us in the care of Mrs. Esparza. Repeat CBC outpatient with home health -- lab slip provided and CM aware and will notify home health. Please do not hesitate to call with questions or concerns. Medicine service will sign off. Admission and Anticipated Discharge Date Admission Date: February 28, 2020 Supervising Physician Co-Signing Physician Notes Attending Attestation: Chart reviewed, care plan d/w PA Jeaneth Marquez. I agree w/ the chapman components of her documentation. POD #2 - s/p revision of right TKR and removal of abx spacer. complicated by significant acute blood loss anemia - s/p transfusion PRBCs; Hb 9.4 today. also complicated by mild SALONI - peak Cr 1.55, now resolved w/ Cr of 0.98. to d/c on cefadroxil per orthopedics. other medical problems stable. Tang Landaverde MD Subjective Patient evaluated this morning. Pain controlled, except she had to have a dose of dilaudid last evening as her pain had increased but is now better controlled. Sciatica type pain to left hip with ambulation. Requesting possible prescription at discharge for lidocaine patches to see if she can get better relief. She had previously had nerve ablation in the past with good relief for approximately 2 years and plans on seeing pain management in the future for further injections. Denies fever, chills, chest pain, shortness of breath, abdominal pain, n/v at this time. She states she was told by orthopedic team that she may be able to be discharged today. Review of Systems Review of Systems: All systems reviewed & are unremarkable except as noted in HPI & below Physical Exam Constitutional: WD/WN, vitals as above no acute distress Eyes: + anicteric sclerae and PERRL ENMT: mmm Respiratory: normal respiratory effort, lungs clear to auscultation Cardiovascular: RRR, no murmur, no edema Gastrointestinal (Abdomen): normal bowel sounds, soft, nontender, no hepatosplenomegaly Musculoskeletal: right knee dressing c/d/i NVI 2+ dp, pt pulses bilaterally Skin: warm, dry Neurologic: patellar DTR's 2+ bilat, sensation intact and PERRL, EOMI, accommodation nl, no face palsy, no dysarthria Psychiatric: A+Ox3, euthymic affect Genitourinary: babin draining yellow urine Lymphatic: no cervical or axillary lymphadenopathy Results & Data Results & Data ([facility]) Vital Signs (Past 12 Hours) Vital Signs Temp Pulse Pulse Pulse Resp BP BP 03/01/20 09:13 37.0 C 78 16 03/01/20 09:11 81 157/77 H 03/01/20 03:00 37.1 C 73 16 146/71 H 03/01/20 01:40 37.4 C 80 16 116/72 03/01/20 00:40 36.7 C 69 16 133/73 03/01/20 00:10 36.6 C 75 16 143/79 H 02/29/20 23:40 37.1 C 75 16 131/70 02/29/20 23:20 37 C 76 16 128/68 02/29/20 23:05 37 C 73 18 120/67 Pulse Ox 03/01/20 09:13 93 03/01/20 09:11 96 03/01/20 03:00 98 03/01/20 01:40 95 03/01/20 00:40 97 03/01/20 00:10 97 02/29/20 23:40 96 02/29/20 23:20 98 02/29/20 23:05 95 PG Care Time/CCT Total # of Minutes Spent Total Time Spent with Patient: Total time spent is greater than 50% in coordination of care (as documented) at patient's floor/unit and/or counseling patient: Coding Level of Care Code 61735 Subseq Hosp Care Lvl 2 Diagnoses Infection associated with internal right knee prosthesis T84.53XA Encounter type: initial encounter SALONI (acute kidney injury) N17.9 Acute blood loss anemia D62 PAF (paroxysmal atrial fibrillation) I48.0 Paroxysmal SVT (supraventricular tachycardia) I47.1 RA (rheumatoid arthritis) M06.9 History of Hodgkin's lymphoma Z85.71 GERD (gastroesophageal reflux disease) K21.9 DDD (degenerative disc disease) Anemia D64.9 Sciatica M54.30 DVT prophylaxis Z29.9 (1) Infection associated with internal right knee prosthesis Encounter type: initial encounter Qualified Code(s): T84.53XA - Infection and inflammatory reaction due to internal right knee prosthesis, initial encounter
[2020-03-01] MEDS: predniSONE 5 MG TAB PO SCH (10:04)
--- NOTE | 2020-03-01 20:20 | Discharge Summary ---
Date of Service March 01, 2020 Admission HPI Per Admitting Provider The patient is a 69 year old female who presents s/p explant right total knee, I+D and placement of antibiotic cement spacer on 06/07/19 secondary to 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 I/O cultures positive for Enterococcus facialis. ID was consulted and the patient was discharged on 6 weeks of IV daptomycin. Surgery delayed secondary to COVID 19 pandemic. The patient underwent repeat I+D and revision antibiotic cement spacer on 12/29/19 secondary to uptrending inflammatory labs and synovial cell count. I/O cultures were negative. She was discharged with 4 weeks of IV daptomycin. Inflammatory labs were followed weekly. Once IV abx completed and antibiotic holiday for two weeks arthrocentesis was performed 02/09/20, gram stain and cultures were negative, CC 907 with 51.2% polys. The patients ESR CRP trending lower but mildly elevated. Patient has been treated for recurrent chronic UTI over the last year with positive cultures at most recent pre-admission testing. Patient also has PMHx for RA for which she takes several medications for. The patient is asymptomatic for UTI. Patient is scheduled for repeat I+D and and placement of antibiotic cement spacer vs revision right total knee arthroplasty. Principal Diagnosis Explant of antibiotic cement spacer, revision right total knee replacement -Right knee periprosthetic joint infection Discharge Exam RLE NVSI +EHL/FHL/TA/GS SILT grossly, +2 DP pulse, compartments soft NT, dressing cdi. Constitutional WD/WN, vitals as above Discharge Data Allergies Allergy/AdvReac Type Severity Reaction Status Date / Time dalbavancin Allergy Severe hypotension, Verified 02/28/20 10:03 flushing, tachypnea Consultations 02/28/20 17:34 Consult Case Management - Discharge Planning Routine Consult Hospitalist Routine Procedures Performed Operation Date: 02/28/20 12:05 Actual Procedures p Right Total Knee Revision Arthroplasty, Removal Antibiotic Spacer(Right) - Ihsan Vela DO Ordered Studies 02/28/20 05:00 US - OR guided needle placemen Routine Hospital Course (1) Infection associated with internal right knee prosthesis: Hospital Course: On 02/28/20 the patient was taken to the operating room, adequate anesthesia administered and underwent a explant of antibiotic cement spacer and revision right total knee arthroplasty. The patient tolerated the procedure well and was taken to the PACU in stable condition. Post-operatively the patient was started on a DVT ppx medication and given appropriate IV antibiotics. Consults were placed to medical hospitalist, physical therapy, occupational therapy and case management. On POD#1, the patient did well overnight and their pain was well controlled. Labs were drawn and the Hgb was 8.3, Cr was elevated 1.55. The patient received 2 units of PRBC. Dressings were changed, drain DC'd and the incision was clean, dry and intact. On POD#2, the patient did well overnight and was without any acute issues. Pain was well controlled and the patient progressed with PT. Labs were drawn, hgb 9.4 and Cr .98. The patients hospital stay was relatively uneventful and they were deemed stable by the orthopedic team and consultants to be discharged home with on 03/01/20. Discharge Instructions: Upon discharge the patient may weight bear as tolerates through their operative extremity. They were instructed to keep the incision clean and dry at all times. The patient may shower but should not submerge the incision, avoid bathing, pools and hot tubes. The patient was given a script for pain medication and should take as instructed. The patient will continue their home medication, Eliquis for DVT ppx and should take as directed. The patient was instructed to not drive or travel for long distances until cleared to do so. If the patient develops any symptoms of fevers, chills, nausea, vomiting, increased redness, swelling, pain or drainage from the surgical site, they should notify the office and/or proceed to the nearest emergency room. The patient should follow up in 10-14 days after surgery for their routine post-operative follow-up appointment and should call the office to confirm the date and time. s/p explant antibiotic cement spacer, revision right TKA POD#2 -vanco/ancef x 48 -DVT PPX: SCDs, TEDs, Eliquis -PT/OT -WBAT RLE -Maintain KI -Drain DC'd -PO XR demonstrates well aligned well fixed prothesis without fracture/dislocation -am labs - as above, hgb 9.4, received PRBC, Cr .98 -DC planning - home with POD#1 -vanco/ancef x 48 -DVT PPX: SCDs, TEDs, Eliquis -PT/OT -WBAT RLE -Maintain KI -Monitor drain output, 125/425 -PO XR demonstrates well aligned well fixed prothesis without fracture/dislocation -am labs - as above, hgb 8.3 -DC planning - home with HH Total Time Total Time Spent Total Time Spent (In Minutes): 45 Discharge Plan Discharge Items Patient Disposition: Home - Home Health Services Reason For Visit: Osteoarthritis, Right Knee Discharge Diagnosis: Revision Right total knee replacement Condition on Discharge: Good Activity: Per Instructions section Lifting: Wait until after follow-up appointment Bathing: Keep incision dry Bathing Comment: No bathing, pools or hot tubs Sexual Activity: Wait until after follow-up appointment Exercise/Sports: Wait until after follow-up appointment Driving/Machine Use: No driving Weightbearing: Full weightbearing Non-emergency contact: Primary Care Provider and Surgeon Call non-emergency contact if: you have any medication questions, your symptoms worsen, your pain is not controlled, your pain is worsening, your pain is unusual for you, your pain is concerning for you, you have a fever, your temperature is above 101, your wound has increased redness, your wound has increased drainage and your wound pain has increased Follow-up/Referrals: Sylvia Nails MD [Primary Care Provider] - Diet: Regular Ambulatory Orders: Complete Blood Count no Diff (Timed) Timeframe: 3 Days Location: Determined by Patient Ordered By: Jeaneth Thurman Attending Provider Instructions: ACTIVITY RECOMMENDATIONS: SELF CARE INSTRUCTIONS AFTER TOTAL KNEE REPLACEMENT A. You may need to continue a physical therapy program after discharge from the hospital. There are several options available to you. Your doctor will assist you in selecting the best one for you. 1. An out-patient facility 2 to 3 times a week for therapy or home therapy. 2. Continue working on all exercises taught to you in the hospital. WHEN INSTRUCTED Your goals should be to increase bending of your knee to 90 degrees and beyond and to fully straighten your knee. B. You may progress at your own pace from walking with a walker or crutches to a cane; then to no assistive devices. C. Make walking a part of your daily routine. Be up as much as comfortable with rest periods throughout the day. Rest with leg elevation is very important. Use the ice wrap frequently for the first 3-4 weeks. D. There are no restrictions on activities. You may ride in a car, shop, participate in phlebotomist medical lab assistant and all social activities. E. Wear the long elastic stockings (JAMAAL hose) 20 hours a day for 2 weeks after surgery. They can be removed several times a day for laundering and for a bath. F. You may shower, no tub baths until cleared by your doctor. SPECIAL CARE INSTRUCTIONS: VERY IMPORTANT TO READ AND REVIEW A. There are a few signs you need to watch for after you are home. Call [facility] if you notice any of the followin. Increased severe knee pain. Some pain is expected especially when you exercise. 2. Increased swelling in your leg or knee; pain or swelling of the calf muscle in either lower leg. 3. Any fluid drainage from the incision. 4. Shortness of breath or chest pain. B. Please call [facility] at if you have any concerns or questions about your operation or recovery. The doctor or his nurse will return your call promptly. C. You must take antibiotics before dental work, bladder, bowel or other surgery. Your doctor will provide you with a permanent care to carry describing this precaution. IMPORTANT: * REMEMBER TO TAKE YOUR HOME MEDICATION, ELQIUIS, UNLESS OTHERWISE DIRECTED. THIS IS YOUR BLOOD THINNER. * HIGH RISK PATIENTS MAY BE PRESCRIBED A STRONGER BLOOD THINNER. THIS WILL BE PROVIDED AT DISCHARGE. * CALL IF INCREASED PAIN, REDNESS, DRAINAGE OR FEVER GREATER THAT 101. * WEAR JAMAAL HOSE 20 HOURS PER DAY FOR 2 WEEKS. *KEEP INCISION CLEAN AND DRY AT ALL TIMES, APPLY SOFT DRY DRESSING DAILY *MAINTAIN KNEE IMMOBILIZER, MAY REMOVE FOR HYGIENE PURPOSES. IF INCISION IS LEAKING THROUGH DRESSING, CALL THE OFFICE . FOLLOW UP VISIT: If appointment is not already scheduled: Please call [facility] to make a follow-up appointment for 2 weeks after your surgery at . Pending Studies at Discharge: No Stand-Alone Forms: My [employer], Opioid Pain Management, Smoking Cessation Medications and DC Order Prescriptions: New acetaminophen 500 mg Tablet 1,000 mg PO Q8 14 Days Qty: 84 RF: 0 cefadroxil 500 mg capsule 500 mg PO BID Qty: 60 RF: 0 lidocaine 5 % adhesive patch,medicated 1 patch topical DAILY Qty: 15 RF: 0 oxycodone 5 mg Tablet 5 mg PO Q6H MDD 4 PRN (Reason: pain) Qty: 30 RF: 0 Continued Eliquis 5 mg tablet 5 mg PO BID Qty: 180 RF: 1 metoprolol tartrate 25 mg tablet 12.5 mg PO BID Qty: 90 RF: 1 oxybutynin chloride 5 mg tablet 5 mg PO BID Qty: 180 RF: 1 amiodarone 200 mg tablet 200 mg PO QAM Qty: 90 RF: 3 (DME) Knee Stabilizer misc See Dose Instructions .ROUTE .MEDSUPPLY Qty: 1 RF: 0 prednisone 5 mg Tablet 5 mg PO QAM RF: 0 prednisone 1 mg Tablet 1 mg PO QPM RF: 0 gabapentin 100 mg Capsule 100 mg PO TID RF: 0 Probiotic 3 billion cell Capsule 3,000 mmu cells PO QAM RF: 0 Macuvite [facility] 7,160 unit-113 mg-100 unit Tablet 1 tab PO QAM RF: 0 sennosides [Senokot] 8.6 mg tablet 17.2 mg PO HS RF: 0 calcitriol [Rocaltrol] 0.5 mcg capsule 0.5 mcg PO 2XWK RF: 0 docusate sodium 100 mg capsule 100 mg PO HS PRN (Reason: constipation) RF: 0 omeprazole 20 mg capsule,delayed release(DR/EC) 20 mg PO BID RF: 0 cranberry 500 mg Capsule 500 mg PO QPM RF: 0 Calcium 600 + D(3) 600 mg calcium- 200 unit Capsule 1 cap PO BID RF: 0 Discontinued leflunomide [Arava] 20 mg Tablet 20 mg PO QAM RF: 0 hydroxychloroquine [Plaquenil] 200 mg Tablet 200 mg PO BID RF: 0 oxycodone [Roxicodone] 5 mg tablet 5 mg PO Q6H MDD 4 PRN (Reason: pain) RF: 0 Discharge Orders: Discharge Order (Routine); Ordered 03/01/20 Ordered By: Theron Hardy/Other Patient Handouts: DVT Post Op Prevention, Knee Replacement Total Dc Admission Data Admit Date/Time: 02/28/20 15:59 Attending Provider: Ihsan Vela Admit Provider: Ihsan Vela Primary Care Provider: Sylvia Nails Other Providers: Tang Landaverde ; Gaetano,Home Health Other Interventions: Discharge Summary Assessment (RN) Last Done: 03/01/20 11:59
== END 2020-03-01 14:05 | disposition home health service (06) | DRG 467 ==
LOC: ASU 09:41 → 3N 15:59

== ENCOUNTER 2020-07-16 15:22 | Inpatient (IN) ==
--- NOTE | 2020-07-16 15:52 | Emergency Department Note ---
Impression & Plan Pneumonia due to COVID-19 virus, Multifocal pneumonia, Hypomagnesemia, Hypoxia, Hypotension, Elevated troponin ED Provider Note NAME: ZARIA MARTIN AGE: 69 SEX: F ARRIVES VIA: Ambulance INFORMANT: Patient, ED PROVIDER(S): Tomas Martínez MD CHIEF COMPLAINT: Feverish, body aches, cough PLAN: Disposition: Admit. MEDICAL DECISION MAKING: The patient is a pleasant 69-year-old woman with a past medical history of atrial fibrillation on Eliquis, history of Hodgkin's lymphoma, hypertension, hyperlipidemia, GERD, hyperparathyroidism, osteoporosis, LVH who presents emergency department with worsening body aches, dry cough and feverishness over the past 4 days in the setting of her being diagnosed with COVID-19 and having similar symptoms within the past week. She reports both her and her were remaining home and not venturing out however the end of June the patient's [id number] and so her did go to their house to help with arrangements. She attributes his exposure to those events. She denies chest pain. She initially denied diarrhea however when we were reviewing her recent history she suddenly needed to have a loose bowel movement. Per EMS report patient was hypoxic and placed on oxygen though room air saturation was not documented. On arrival the patient is uncomfortable/ill appearing, about a 38.0, hypotensive 70s/50s, though mentating normally,with mild increased work of breathing but no acute distress. The patient does appear clinically dry. Lungs with scant intermittent wheeze and is otherwise clear. Abdomen is benign. EKG without overt acute ischemia. Chest x-ray with multifocal pneumonia which is consistent with suspected COVID-19 infection given her exposure to her . WBC, H/H and place within normal limits. 3 without metabolic acidosis. Lactate 1.8, within normal limits. Magnesium 1.6 with repletion provided. Initial troponin 0.103 which is comparable to prior seemingly chronic and stable elevations. Procalcitonin 0.18, nonspecific. UA without convincing evidence of infection. C. difficile negative. COVID-19 PCR was positive confirming the patient's multifocal pneumonia secondary to COVID-19. Given the patient's hypoxia she was treated with dexamethasone. She is agreeable with admission. Case was discussed [place]. Carbajal, [facility] [place], who will evaluate the patient for admission. Triage Nursing notes reviewed and agree them. Prior medical records reviewed Vital Signs: reviewed and remarkable for hypotension. Differential diagnosis: Infection, dehydration, metabolic abnormality, hypo/hyperglycemia, electrolyte disturbance, anemia, hypoxia, cardiac sources, intracerebral event, toxicologic, neurologic, as well as other pathologies. ER treatment provided: See below. Diagnostics interpreted by me: ECG: Sinus rhythm with PSVC's, 99 bpm, nonspecific ST and T wave abnormality, no overt ST elevation QTC 390, QRS 86. Cardiac Monitoring: An order for continuous cardiac monitoring was placed and demonstrated sinus rhythm, PSVC's, 99 bpm. Laboratory studies: See below Imaging studies: XR chest 1V portable CLINICAL HISTORY: SEPSIS COMPARISON STUDY: 12/12/2019 FINDINGS: The heart is normal in size. There are patchy bilateral pulmonary airspace opacities suspicious for a multifocal pneumonia. Correlation with Covid 19 testing is recommended. There are no cystic pleural effusions. There is no pneumothorax. Arthritic changes are present within the shoulders.[ IMPRESSION: Multifocal airspace opacities suspicious for a multifocal pneumonia. ACT 112: Negative or not required by law. Consultations: Case was discussed with Dr. Carbajal, [facility] [place], who will evaluate the patient for admission. HPI: The patient is a pleasant 69-year-old woman with a past medical history of atrial fibrillation on Eliquis, history of Hodgkin's lymphoma, hypertension, hyperlipidemia, GERD, hyperparathyroidism, osteoporosis, LVH who presents emergency department with worsening body aches, dry cough and feverishness over the past 4 days in the setting of her being diagnosed with COVID-19 and having similar symptoms within the past week. She reports both her and her were remaining home and not venturing out however the end of June the patient's [id number] and so her did go to their house to help with arrangements. She attributes his exposure to those events. She denies chest pain. She initially denied diarrhea however when we were reviewing her recent history she suddenly needed to have a loose bowel movement. Per EMS report patient was hypoxic and placed on oxygen though room air saturation was not documented. ROS: See above HPI for pertinent positives & negatives. A total of 10 systems reviewed and were otherwise negative. PAST MEDICAL HISTORY:See Below PAST SURGICAL HISTORY:See Below FAMILY HISTORY:See Below SOCIAL HISTORY:See Below HOME MEDICATIONS:See Below ALLERGIES:See Below VITALS:See Below PHYSICAL EXAMINATION: GENERAL: Awake, alert, ill-appearing, in no distress HENT: Normocephalic, atraumatic. Oropharynx with dry mucous membranes and otherwise unremarkable. EYES: Normal conjunctiva. Sclera non-icteric. NECK: Supple. No nuchal rigidity. FROM. No JVD. RESPIRATORY: Scant intermittent wheeze and otherwise clear. Mild increased work of breathing. CARDIAC: Regular rate, normal rhythm. Extremities warm and well perfused. Pulses equal. ABDOMEN: Soft, non-distended. No tenderness to palpation. No rebound or guarding. No masses. RECTAL: Deferred. MUSCULOSKELETAL: Chest examination reveals no tenderness. The back is symmetrical on inspection without obvious abnormality. There is no CVA tenderness to palpation. No joint edema. LOWER EXTREMITIES: Calves are equal size bilaterally and non-tender. No edema. No discoloration. NEURO: Normal sensorium. No sensory or motor deficits noted. SKIN: No rash or jaundice noted. ED COURSE: Critical Care: I have personally spent greater than 45 minutes of critical care time in the direct management of this patient. This includes bedside care, interpretation of diagnostic studies, and testing, discussion with consultants, patient, and family members, and other required patient management activities. This 45 minutes is in excess of all separately billable procedures. Tomas Martínez MD Past Med/Surg History Medical History Anemia follows with Dr. Thibodeaux, s/p IV iron infusions Chronic back pain DDD (degenerative disc disease) GERD (gastroesophageal reflux disease) controlled History of Hodgkin's lymphoma 2003/under surveillance by PCP/Dr. Thibodeaux History of oral cancer s/p tongue excision left side (no chemo/no XRT 2013) Overactive bladder PAF (paroxysmal atrial fibrillation) hx Paroxysmal SVT (supraventricular tachycardia) hx RA (rheumatoid arthritis) on chronic steroid Skin benign neoplasm Vertigo Surgical History H/O foot surgery TOES X MULTIPLE H/O parathyroidectomy History of biopsy Of soft tissue of the neck History of breast surgery Puncture aspiration of cyst History of carpal tunnel release RIGHT History of colonoscopy History of colposcopy with cervical biopsy with endocervical curettage History of glossectomy with unilateral radical neck dissection History of hip surgery R/L REVISION Left MAURO revision: 11/09/18: SABx1 at L3-L4 at [facility] History of total hip arthroplasty R/L History of total knee replacement R/L History of tubal ligation Hx of hand surgery RIGHT Hx of knee surgery Right TKA revision, I&D, antibiotic spacer: 12/29/19: SAB + PNB at [facility] S/P revision of total knee 12/29/19 Dr. Ihsan Vela- Right total knee revision, Incision and drainage with antibiotic cement spacer Family History Mother Breast cancer Colorectal cancer Cancer Gastric cancer Aunt Colorectal cancer Other Family history non-contributory Denies family history of Ovarian cancer Prostate cancer Myocardial infarction Social History Smoking Status: Never smoker Second Hand Exposure: No; Hx Alcohol Use: No Hx Substance Use: No Preferred Language: Ukrainian Communication Ability: Effective Visual Impairment: Limited 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: Normal Juvenile Detention Officer Required: No Beliefs That Will Affect Care: None marital status: Current Living Situation: Spouse current occupational status: retired Other Information That Helps Us Care for You: No Feels Safe at Home: Yes Safety Concerns: Feels Safe At This Time Childhood Exposure to Second-Hand Smoke: Yes caffeine: Yes Dental Care, Regularly: Yes Physical Activity Frequency: Other Physical Activity Frequency Comment: Limited by a physical condition Seatbelt Use: always Sunscreen Use: Yes Assistive Devices: Walker Allergies Allergies Allergy/AdvReac Type Severity Reaction Status Date / Time dalbavancin Allergy Severe hypotension, Verified 07/16/20 19:38 flushing, tachypnea ciprofloxacin [From Cipro] AdvReac Unknown Verified 07/16/20 18:30 Home Meds Home Medications Medication Instructions Recorded Confirmed Probiotic 3,000 mmu cells PO QAM 03/30/18 07/16/20 prednisone 1 mg PO QPM 03/30/18 07/16/20 prednisone 5 mg PO QAM 03/30/18 07/16/20 cranberry 500 mg PO QPM 09/29/18 07/16/20 omeprazole 20 mg PO BID 09/29/18 07/16/20 Macuvite Eye Care 1 tab PO QAM 10/08/18 07/16/20 sennosides [Senokot] 17.2 mg PO HS 08/11/19 07/16/20 calcitriol [Rocaltrol] 0.5 mcg PO 2XWK 02/21/20 07/16/20 docusate sodium 100 mg PO HS PRN 02/21/20 07/16/20 hydroxychloroquine 200 mg tablet 200 mg PO BID 03/27/20 07/16/20 leflunomide 20 mg tablet 20 mg PO DAILY 03/27/20 07/16/20 lidocaine 5 % topical patch 1 patch TOPICAL DAILY PRN ea 03/27/20 07/16/20 calcium carbonate-vitamin D3 1 cap PO BID 07/16/20 07/16/20 [Calcium 600 + D(3)] gabapentin 300 mg PO TID 07/16/20 07/16/20 hydrocodone-acetaminophen 1 tab PO Q6 PRN 07/16/20 07/16/20 Previous Rx's Medication Instructions Recorded leg brace #1 ea 02/10/19 apixaban 5 mg tablet 5 mg PO BID #180 tab 01/16/20 metoprolol tartrate 25 mg tablet 12.5 mg PO BID #90 tab 07/09/20 oxybutynin chloride 5 mg tablet 5 mg PO BID #180 tab 07/09/20 prednisone 20 mg tablet See Rx Instructions PO .COMPLEX 07/16/20 #30 tab Results & Data (ED) Vital Signs Vital Signs - 24 hr 07/16/20 15:46 07/16/20 16:12 07/16/20 18:00 Temperature 38 C H 38.8 C H Temperature Source Oral Oral Pulse Rate [Left] 103 H 88 Pulse Rhythm Regular Pulse Rhythm [Left] Regular Regular Pulse Strength Normal Pulse Strength [Left] Normal Normal Respiratory Rate 18 22 18 Respiratory Effort / Characteristics Non-Labored Spontaneous Non-Labored Spontaneous Non-Labored Spontaneous Respiratory Depth Normal Normal Normal Respiratory Pattern Regular Regular Regular Blood Pressure 72/58 L Blood Pressure [Left Arm] 126/59 L 121/60 Blood Pressure Mean 62 Blood Pressure Mean [Left Arm] 81 80 Blood Pressure Position Lying Blood Pressure Position [Left Arm] Lying Pulse Oximetry 98 99 97 Oxygen Delivery Method Nasal Cannula Nasal Cannula Nasal Cannula Oxygen Flow Rate 4 4 2 Sepsis Recent Fever Within 48 Hours Yes Sepsis New/Unexplained Change in Mental Status No Sepsis Action Taken by Nursing No Action Required Laboratory Data Attestation: I reviewed the patient's lab results. Result diagrams: 07/16/20 16:03 07/16/20 16:03 Lab Results 07/16/20 07/16/20 07/16/20 Range/Units 16:03 16:03 16:03 WBC 5.34 (4.8-10.8) K/uL RBC 4.83 (4.2-5.4) M/uL Hgb 12.0 (12.0-16.0) g/dL Hct 38.3 (37-47) % MCV 79.3 L (80-100) fL MCH 24.8 L (25-34) pg MCHC 31.3 L (32-36) g/dL RDW Std Deviation 56.9 H (36.4-46.3) fL RDW Coeff of Jarvis 19.6 H (11.5-14.5) % Plt Count 159 (130-400) K/uL MPV 10.3 (7.4-10.4) fL Immature Gran % (Auto) 0.2 % Neut % (Auto) 63.6 % Lymph % (Auto) 30.0 % Coffey % (Auto) 6.0 % Eos % (Auto) 0.0 % Baso % (Auto) 0.2 % Neut # (Auto) 3.40 (1.4-6.5) K/uL Lymph # (Auto) 1.60 (1.2-3.4) K/uL Coffey # (Auto) 0.32 (0.11-0.59) K/uL Eos # (Auto) 0.00 (0-0.5) K/uL Baso # (Auto) 0.01 (0-0.2) K/uL Immature Gran # (Auto) 0.01 (0.00-0.02) K/uL PT (9.0-12.0) Seconds INR (0.9-1.1) APTT (21.0-31.0) Seconds PTT Ratio Sodium 136 (136-145) mmol/L Potassium 4.2 (3.5-5.1) mmol/L Chloride 104 (98-107) mmol/L Carbon Dioxide 26 (21-32) mmol/L Anion Gap 7.0 (3-11) BUN 18 (7-18) mg/dl Creatinine 0.98 (0.6-1.2) mg/dl Est Cr Clr Drug Dosing 45.5 ml/min Est GFR ( Amer) 67.3 Est GFR (Non-Af Amer) 58.0 BUN/Creatinine Ratio 17.9 (10-20) Glucose 64 L (70-99) mg/dl Lactate (0.4-2.0) mmol/L Calcium 9.1 (8.5-10.1) mg/dl Phosphorus 2.6 (2.5-4.9) mg/dl Magnesium 1.6 L (1.8-2.4) mg/dl Total Bilirubin 0.6 (0.2-1) mg/dl Direct Bilirubin (0-0.2) mg/dl AST 17 (15-37) U/L ALT 16 (12-78) U/L Alkaline Phosphatase 83 (45-117) U/L Troponin I 0.103 H* (0-0.045) ng/ml Total Protein 6.2 L (6.4-8.2) gm/dl Albumin 2.6 L (3.4-5.0) gm/dl Globulin 3.6 (2.5-4.0) gm/dl Albumin/Globulin Ratio 0.7 L (0.9-2) Procalcitonin 0.18 (0-0.5) ng/ml Specimen Hemolysis COVID-19 Eval Order SARS-CoV-2 (PCR) (Negative) Influenza Type A (PCR) (Neg) Influenza Type B (PCR) (Neg) RSV (RT-PCR) (Neg) Blood Type Antibody Screen 07/16/20 07/16/20 07/16/20 Range/Units 16:03 16:03 16:03 WBC (4.8-10.8) K/uL RBC (4.2-5.4) M/uL Hgb (12.0-16.0) g/dL Hct (37-47) % MCV (80-100) fL MCH (25-34) pg MCHC (32-36) g/dL RDW Std Deviation (36.4-46.3) fL RDW Coeff of Jarvis (11.5-14.5) % Plt Count (130-400) K/uL MPV (7.4-10.4) fL Immature Gran % (Auto) % Neut % (Auto) % Lymph % (Auto) % Coffey % (Auto) % Eos % (Auto) % Baso % (Auto) % Neut # (Auto) (1.4-6.5) K/uL Lymph # (Auto) (1.2-3.4) K/uL Coffey # (Auto) (0.11-0.59) K/uL Eos # (Auto) (0-0.5) K/uL Baso # (Auto) (0-0.2) K/uL Immature Gran # (Auto) (0.00-0.02) K/uL PT 11.7 (9.0-12.0) Seconds INR 1.1 (0.9-1.1) APTT 32.5 H (21.0-31.0) Seconds PTT Ratio 1.2 Sodium (136-145) mmol/L Potassium (3.5-5.1) mmol/L Chloride (98-107) mmol/L Carbon Dioxide (21-32) mmol/L Anion Gap (3-11) BUN (7-18) mg/dl Creatinine (0.6-1.2) mg/dl Est Cr Clr Drug Dosing ml/min Est GFR ( Amer) Est GFR (Non-Af Amer) BUN/Creatinine Ratio (10-20) Glucose (70-99) mg/dl Lactate 1.8 (0.4-2.0) mmol/L Calcium (8.5-10.1) mg/dl Phosphorus (2.5-4.9) mg/dl Magnesium (1.8-2.4) mg/dl Total Bilirubin (0.2-1) mg/dl Direct Bilirubin (0-0.2) mg/dl AST (15-37) U/L ALT (12-78) U/L Alkaline Phosphatase (45-117) U/L Troponin I (0-0.045) ng/ml Total Protein (6.4-8.2) gm/dl Albumin (3.4-5.0) gm/dl Globulin (2.5-4.0) gm/dl Albumin/Globulin Ratio (0.9-2) Procalcitonin (0-0.5) ng/ml Specimen Hemolysis COVID-19 Eval Order SARS-CoV-2 (PCR) (Negative) Influenza Type A (PCR) (Neg) Influenza Type B (PCR) (Neg) RSV (RT-PCR) (Neg) Blood Type O Positive Antibody Screen NEGATIVE 07/16/20 07/16/20 07/16/20 Range/Units 16:03 17:00 17:00 WBC (4.8-10.8) K/uL RBC (4.2-5.4) M/uL Hgb (12.0-16.0) g/dL Hct (37-47) % MCV (80-100) fL MCH (25-34) pg MCHC (32-36) g/dL RDW Std Deviation (36.4-46.3) fL RDW Coeff of Jarvis (11.5-14.5) % Plt Count (130-400) K/uL MPV (7.4-10.4) fL Immature Gran % (Auto) % Neut % (Auto) % Lymph % (Auto) % Coffey % (Auto) % Eos % (Auto) % Baso % (Auto) % Neut # (Auto) (1.4-6.5) K/uL Lymph # (Auto) (1.2-3.4) K/uL Coffey # (Auto) (0.11-0.59) K/uL Eos # (Auto) (0-0.5) K/uL Baso # (Auto) (0-0.2) K/uL Immature Gran # (Auto) (0.00-0.02) K/uL PT (9.0-12.0) Seconds INR (0.9-1.1) APTT (21.0-31.0) Seconds PTT Ratio Sodium (136-145) mmol/L Potassium (3.5-5.1) mmol/L Chloride (98-107) mmol/L Carbon Dioxide (21-32) mmol/L Anion Gap (3-11) BUN (7-18) mg/dl Creatinine (0.6-1.2) mg/dl Est Cr Clr Drug Dosing ml/min Est GFR ( Amer) Est GFR (Non-Af Amer) BUN/Creatinine Ratio (10-20) Glucose (70-99) mg/dl Lactate (0.4-2.0) mmol/L Calcium (8.5-10.1) mg/dl Phosphorus (2.5-4.9) mg/dl Magnesium (1.8-2.4) mg/dl Total Bilirubin (0.2-1) mg/dl Direct Bilirubin (0-0.2) mg/dl AST (15-37) U/L ALT (12-78) U/L Alkaline Phosphatase (45-117) U/L Troponin I (0-0.045) ng/ml Total Protein (6.4-8.2) gm/dl Albumin (3.4-5.0) gm/dl Globulin (2.5-4.0) gm/dl Albumin/Globulin Ratio (0.9-2) Procalcitonin (0-0.5) ng/ml Specimen Hemolysis COVID-19 Eval Order CovFluRsv at [facility] SARS-CoV-2 (PCR) POSITIVE A* (Negative) Influenza Type A (PCR) Negative (Neg) Influenza Type B (PCR) Negative (Neg) RSV (RT-PCR) Negative (Neg) Blood Type Cancelled Antibody Screen Cancelled Administered Medications Hydrocodone Bitart/Acetaminophen (Hydrocodone/Acetaminophen 10/325 Tab) 1 tab PO Q6 PRN PRN Reason: Pain Stop: 07/30/20 22:02 Last Admin: 07/17/20 01:14 Dose: 1 tab Documented by: [id number] Apixaban (Apixaban 5 Mg Tablet) 5 mg PO BID ANGELO Stop: 08/15/20 22:02 Last Admin: 07/16/20 23:53 Dose: 5 mg Documented by: [id number] Gabapentin (Gabapentin 300 Mg Cap) 300 mg PO TID ANGELO Stop: 08/15/20 22:02 Last Admin: 07/16/20 23:52 Dose: 300 mg Documented by: [id number] Hydroxychloroquine Sulfate (Hydroxychloroquine Sulfate 200 Mg Tab) 200 mg PO BID ANGELO Stop: 08/15/20 22:02 Last Admin: 07/16/20 23:51 Dose: 200 mg Documented by: [id number] Potassium Chloride/Sodium Chloride (Normal Saline W/20 Meq Kcl) 20 meq in 1,000 mls @ 80 mls/hr IV .[id number] ANGELO Stop: 08/15/20 19:08 Last Admin: 07/16/20 20:33 Dose: 80 mls/hr Documented by: [id number] Metoprolol Tartrate (Metoprolol Tartrate 25 Mg Tab) 12.5 mg PO BID ANGELO Stop: 08/15/20 22:02 Last Admin: 07/16/20 23:52 Dose: 12.5 mg Documented by: [id number] Oxybutynin Chloride (Oxybutynin Chloride 5 Mg Tab) 5 mg PO BID ANGELO Stop: 08/15/20 22:02 Last Admin: 07/16/20 23:53 Dose: 5 mg Documented by: [id number] Discontinued Medications Albuterol (Albuterol Hfa 8 Gm Inhaler) 2 puffs INH NOW ONE Stop: 07/16/20 16:11 Last Admin: 07/16/20 17:12 Dose: 2 puffs Documented by: [id number] Dexamethasone (Dexamethasone Sod Inj 10 Mg/Ml Vial) 6 mg IV NOW ONE Stop: 07/16/20 16:11 Last Admin: 07/16/20 17:12 Dose: 6 mg Documented by: [id number] Guaifenesin (Guaifenesin 600 Mg Tabcr) 600 mg PO NOW STA Stop: 07/16/20 16:11 Last Admin: 07/16/20 17:12 Dose: 600 mg Documented by: [id number] Sodium Chloride (Nss 1000ml) 1,000 mls @ 999 mls/hr IV .Q1H1M ONE Stop: 07/16/20 17:10 Last Infusion: 07/16/20 17:53 Dose: 0 mls/hr Documented by: [id number] Admin: 07/16/20 16:33 Dose: 999 mls/hr Documented by: [id number] Acetaminophen (Ofirmev) 1,000 mg in 100 mls @ 400 mls/hr IV NOW STA Stop: 07/16/20 16:24 Last Infusion: 07/16/20 17:53 Dose: 0 mls/hr Documented by: [id number] Admin: 07/16/20 17:12 Dose: 400 mls/hr Documented by: [id number] Magnesium Sulfate/Dextrose (Magnesium Sulfate / D5w) 1 gm in 100 mls @ 100 mls/hr IV Q1H ANGELO Stop: 07/16/20 19:12 Last Infusion: 07/16/20 22:46 Dose: 0 mls/hr Documented by: [id number] Admin: 07/16/20 20:00 Dose: 100 mls/hr Documented by: [id number] Infusion: 07/16/20 19:11 Dose: 100 mls/hr Documented by: [id number] Admin: 07/16/20 18:11 Dose: 100 mls/hr Documented by: [id number] Remdesivir 200 mg/ Sodium (Chloride) 250 mls @ 125 mls/hr IV ONE STA; Protocol Stop: 07/16/20 21:08 Last Infusion: 07/16/20 22:46 Dose: 0 mls/hr Documented by: [id number] Admin: 07/16/20 20:32 Dose: 125 mls/hr Documented by: [id number] Loperamide HCl (Loperamide Hcl 2 Mg Cap) 2 mg PO NOW STA Stop: 07/16/20 22:11 Last Admin: 07/16/20 23:51 Dose: 2 mg Documented by: [id number] Sodium Chloride (Sodium Chloride 0.9% 10ml Flush) 30 ml IV Q24H ANGELO Stop: 07/20/20 19:10 Last Admin: 07/16/20 22:47 Dose: 30 ml Documented by: [id number] Discharge Plan Visit Data Chief Complaint: Fever Stated Complaint: + COVID ED Provider: Tomas Martínez Discharge Problem: Pneumonia due to COVID-19 virus, Multifocal pneumonia, Hypomagnesemia, Hypoxia, Hypotension, Elevated troponin Patient Disposition: Admitted As Inpatient Discharge Instructions Interventions: ED Discharge Assessment Last Done: 07/16/20 21:30 Discharge Problem: Hypotension Qualifiers: Hypotension type: unspecified hypotension type Qualified Code(s): I95.9 - Hypotension, unspecified
[2020-07-16] MEDS ORDERED: DEXAMETHASONE SOD INJ 10 MG/ML VIAL IV ONE (16:10)
[2020-07-16] MEDS ORDERED: ACETAMINOPHEN 1,000 MG/100 ML VIAL IV STA (16:10)
[2020-07-16] MEDS ORDERED: guaiFENesin 600 MG TABCR PO STA (16:10)
[2020-07-16] MEDS ORDERED: ALBUTEROL HFA 8 GM INHALER INH ONE (16:10)
[2020-07-16] MEDS ORDERED: SODIUM CHLORIDE 0.9% 1000ML 1,000 ML IV ONE (16:10)
[2020-07-16 16:33] LABS: Basophils # (auto) 0.01 K/uL (0-0.2); Basophils % (auto) 0.2 %; Hematocrit (blood only) 38.3 % (37-47); Immature Granulocytes # (auto) 0.01 K/uL (0.00-0.02); Immature Granulocytes % (auto) 0.2 %; Mean Corpuscular Hemoglobin 24.8 pg (25-34); Mean Corpuscular Hgb Conc 31.3 g/dL (32-36); Mean Corpuscular Volume 79.3 fL (80-100); Mean Platelet Volume 10.3 fL (7.4-10.4); Monocytes # (auto) 0.32 K/uL (0.11-0.59); Neutrophils % (auto) 63.6 %; Platelet Count 159 K/uL (130-400); RDW Coefficient of Variation 19.6 % (11.5-14.5); RDW Standard Deviation 56.9 fL (36.4-46.3); Red Blood Count 4.83 M/uL (4.2-5.4); White Blood Count 5.34 K/uL (4.8-10.8)
[2020-07-16 16:41] LABS: INR 1.1 (0.9-1.1); Partial Thromboplastin Ratio 1.2; Partial Thromboplastin Time 32.5 Seconds (21.0-31.0); Prothrombin Time 11.7 Seconds (9.0-12.0)
--- NOTE | 2020-07-16 16:42 | XRay Report ---
XR chest 1V portable CLINICAL HISTORY: SEPSIS COMPARISON STUDY: 12/12/2019 FINDINGS: The heart is normal in size. There are patchy bilateral pulmonary airspace opacities suspic ious for a multifocal pneumonia. Correlation with Covid 19 testing is recommended. There are no cysti c pleural effusions. There is no pneumothorax. Arthritic changes are present within the shoulders.[ IMPRESSION: Multifocal airspace opacities suspicious for a multifocal pneumonia. ACT 112: Negative or not required by law. Electronically signed by: Deacon May M.D. 07/16/2020 4:41 PM
[2020-07-16 16:53] LABS: Albumin Globulin Ratio 0.7 (0.9-2); Albumin Level 2.6 gm/dl (3.4-5.0); BUN Creatinine Ratio 17.9 (10-20); Bilirubin,Total 0.6 mg/dl (0.2-1); Calcium 9.1 mg/dl (8.5-10.1); Creatinine Clr Calc Pharmacy 45.5 ml/min; Est GFR (African American) 67.3; Globulin 3.6 gm/dl (2.5-4.0); Magnesium 1.6 mg/dl (1.8-2.4); Phosphorus 2.6 mg/dl (2.5-4.9); Potassium 4.2 mmol/L (3.5-5.1); Total Protein 6.2 gm/dl (6.4-8.2); Troponin I 0.103 ng/ml (0-0.045)
--- NOTE | 2020-07-16 17:48 | History & Physical Report ---
Date of Service July 16, 2020 Assessment & Plan (1) Acute respiratory failure with hypoxia: Secondary to Covid-19 pneumonia Requiring 4 L nasal cannula upon admission With bilateral infiltrates on chest x-ray -Admit to PCU -Continue supplemental O2 to keep pulse ox greater than 92% and wean off as able to -Add on flutter valve 3 times daily, incentive spirometry -Albuterol HFA as needed Treatment for Covid-19 as below (2) Pneumonia due to COVID-19 virus: Here with Covid-19 pneumonia, bilateral infiltrates on chest x-ray, fever Procalcitonin is negative-do not suspect secondary bacterial pneumonia RSV and influenza also negative -Discussed options for treatment with patient and she is agreeable to remdesivir x5-day course, dexamethasone, as well as convalescent plasma-consent obtained -Supportive care Gentle IV fluids Oxygen as above (3) Elevated troponin: Troponin elevated upon admission at 0.1 Likely myocardial demand ischemia She has no chest pain, ECG has some artifact but no obvious ischemic changes She has no underlying cardiac issues -Trend serial troponin Follow daily ECG No need for echocardiogram unless troponin goes up significantly (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 twice daily (7) PAF (paroxysmal atrial fibrillation): With a history of such and a previous hospitalization Follows with cardiology as an outpatient Remains on metoprolol and Eliquis for anticoagulation Monitor here on telemetry In sinus rhythm on admission (8) GERD (gastroesophageal reflux disease): No current issues Continue PPI twice daily (9) Paroxysmal SVT (supraventricular tachycardia): None since previous hospitalization as above Continue metoprolol Follow on telemetry (10) RA (rheumatoid arthritis): Hold home leflunomide while with ongoing infection Continue steroids as above Okay to continue home hydroxychloroquine (11) Osteoporosis, unspecified: Continue calcitriol (12) DDD (degenerative disc disease): With chronic severe back pain and severe degenerative disc disease Continue gabapentin, hydrocodone as needed (13) Anemia: Low normal hemoglobin, mild microcytic Follow CBC (14) Diarrhea: Secondary to Covid-19 Follow as is mild for now Hydrating with IV fluids and replacing IV magnesium (15) DVT prophylaxis: Eliquis Disposition-admit to PCU History of Present Illness Chief Complaint: Body aches, cough Primary Care Provider: Sylvia Nails MD This patient is a 69-year-old female with a history of paroxysmal atrial fibrillation, paroxysmal SVT, RA on prednisone, Hodgkin's in remission, GERD, DDD, anemia, HTN, LVH, who presents to the ER with 4 days of body aches, feeling feverish, dry cough, and diarrhea. She denies any shortness of breath, cough, or chest pain. Her currently has Covid-19 and her Covid test was pending at the time of admission. She was found to have hypoxia in the ER was placed on supplemental O2. Her chest x-ray showed bilateral infiltrates. Her troponin was mildly elevated but similar to previous. Her ECG showed sinus rhythm with PACs and nonspecific ST and T wave abnormality in inferior leads but does have a lot of artifact. She was also febrile, tachycardic, and mildly tachypneic in the ER. She was given IV Tylenol, Mucinex, albuterol HFA, Decadron and 1 L of normal saline as well as 2 g of IV magnesium sulfate. She will be admitted for acute respiratory failure with hypoxia secondary Covid- 19 pneumonia Allergies Allergy/AdvReac Type Severity Reaction Status Date / Time dalbavancin Allergy Severe hypotension, Verified 07/16/20 19:38 flushing, tachypnea ciprofloxacin [From Cipro] AdvReac Unknown Verified 07/16/20 18:30 Home Medications Medication Instructions Recorded Confirmed Type Probiotic 3,000 mmu cells PO QAM 03/30/18 07/16/20 History prednisone 1 mg PO QPM 03/30/18 07/16/20 History prednisone 5 mg PO QAM 03/30/18 07/16/20 History cranberry 500 mg PO QPM 09/29/18 07/16/20 History omeprazole 20 mg PO BID 09/29/18 07/16/20 History Macuvite Eye Care 1 tab PO QAM 10/08/18 07/16/20 History leg brace #1 ea 02/10/19 07/16/20 Rx sennosides [Senokot] 17.2 mg PO HS 08/11/19 07/16/20 History apixaban 5 mg tablet 5 mg PO BID #180 tab 01/16/20 07/16/20 Rx calcitriol [Rocaltrol] 0.5 mcg PO 2XWK 02/21/20 07/16/20 History docusate sodium 100 mg PO HS PRN 02/21/20 07/16/20 History hydroxychloroquine 200 mg tablet 200 mg PO BID 03/27/20 07/16/20 History leflunomide 20 mg tablet 20 mg PO DAILY 03/27/20 07/16/20 History lidocaine 5 % topical patch 1 patch TOPICAL DAILY PRN ea 03/27/20 07/16/20 History metoprolol tartrate 25 mg tablet 12.5 mg PO BID #90 tab 07/09/20 07/16/20 Rx oxybutynin chloride 5 mg tablet 5 mg PO BID #180 tab 07/09/20 07/16/20 Rx calcium carbonate-vitamin D3 1 cap PO BID 07/16/20 07/16/20 History [Calcium 600 + D(3)] gabapentin 300 mg PO TID 07/16/20 07/16/20 History hydrocodone-acetaminophen 1 tab PO Q6 PRN 07/16/20 07/16/20 History prednisone 20 mg tablet See Rx Instructions PO .COMPLEX 07/16/20 07/16/20 Rx #30 tab Past Med/Surg History Medical History (Updated 07/16/20 @ 22:32 by Earline Carbajal MD) Anemia follows with Dr. Thibodeaux, s/p IV iron infusions Chronic back pain DDD (degenerative disc disease) GERD (gastroesophageal reflux disease) controlled History of Hodgkin's lymphoma 2003/under surveillance by PCP/Dr. Thibodeaux History of oral cancer s/p tongue excision left side (no chemo/no XRT 2013) Overactive bladder PAF (paroxysmal atrial fibrillation) hx Paroxysmal SVT (supraventricular tachycardia) hx RA (rheumatoid arthritis) on chronic steroid Skin benign neoplasm Vertigo Surgical History H/O foot surgery TOES X MULTIPLE H/O parathyroidectomy History of biopsy Of soft tissue of the neck History of breast surgery Puncture aspiration of cyst History of carpal tunnel release RIGHT History of colonoscopy History of colposcopy with cervical biopsy with endocervical curettage History of glossectomy with unilateral radical neck dissection History of hip surgery R/L REVISION Left MAURO revision: 11/09/18: SABx1 at L3-L4 at [facility] History of total hip arthroplasty R/L History of total knee replacement R/L History of tubal ligation Hx of hand surgery RIGHT Hx of knee surgery Right TKA revision, I&D, antibiotic spacer: 12/29/19: SAB + PNB at [facility] S/P revision of total knee 12/29/19 Dr. Ihsan Vela- Right total knee revision, Incision and drainage with antibiotic cement spacer Family History Mother Breast cancer Colorectal cancer Cancer Gastric cancer Aunt Colorectal cancer Other Family history non-contributory Denies family history of Ovarian cancer Prostate cancer Myocardial infarction Social History Smoking Status: Never smoker Second Hand Exposure: No; Hx Alcohol Use: No Hx Substance Use: No Preferred Language: Azeri Communication Ability: Effective Visual Impairment: Limited 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: Normal Glue Mixer Required: No Beliefs That Will Affect Care: None marital status: Current Living Situation: Spouse current occupational status: retired Feels Safe at Home: Yes Childhood Exposure to Second-Hand Smoke: Yes caffeine: Yes Dental Care, Regularly: Yes Physical Activity Frequency: Other Physical Activity Frequency Comment: Limited by a physical condition Seatbelt Use: always Sunscreen Use: Yes Assistive Devices: Glasses and Walker Review of Systems Review of Systems: All systems reviewed & are unremarkable except as noted in HPI & below Chronic lower back pain Denies nausea or vomiting, no abdominal pain, no urinary issues Physical Exam Constitutional: WD/WN, vitals as above + ill appearing; no acute distress Eyes: PERRL, conjunctivae normal, anicteric sclerae ENMT: external ear and nose normal, oropharynx normal Neck: trachea midline, no thyromegaly Respiratory: normal respiratory effort (With nasal cannula in place) Auscultation: + crackles (At the bases bilaterally) and + wheezes (Occasional); no rhonchi Cardiovascular: RRR, no murmur, no edema Chest (Breasts): Chest: normal inspection of chest Gastrointestinal (Abdomen): normal bowel sounds, soft, nontender, no hepatosplenomegaly Musculoskeletal: Extremities: extremities normal to inspection; no cyanosis and no clubbing Skin: no rashes, warm and dry Neurologic: moves all extremities and awake; no focal motor deficits Psychiatric: A+Ox3, euthymic affect Lymphatic: no lymphedema Results & Data Results & Data ([facility]) Vital Signs (Past 12 Hours) Vital Signs Temp Pulse Resp BP BP Pulse Ox 07/16/20 16:12 103 H 22 126/59 L 99 07/16/20 15:46 38 C H 18 72/58 L 98 Laboratory Results 07/16/20 07/16/20 07/16/20 Range/Units 17:00 17:00 16:03 WBC (4.8-10.8) K/uL RBC (4.2-5.4) M/uL Hgb (12.0-16.0) g/dL Hct (37-47) % MCV (80-100) fL MCH (25-34) pg MCHC (32-36) g/dL RDW Std Deviation (36.4-46.3) fL RDW Coeff of Jarvis (11.5-14.5) % Plt Count (130-400) K/uL MPV (7.4-10.4) fL Immature Gran % (Auto) % Neut % (Auto) % Lymph % (Auto) % [place] % (Auto) % Eos % (Auto) % Baso % (Auto) % Neut # (Auto) (1.4-6.5) K/uL Lymph # (Auto) (1.2-3.4) K/uL [place] # (Auto) (0.11-0.59) K/uL Eos # (Auto) (0-0.5) K/uL Baso # (Auto) (0-0.2) K/uL Immature Gran # (Auto) (0.00-0.02) K/uL PT (9.0-12.0) Seconds INR (0.9-1.1) APTT (21.0-31.0) Seconds PTT Ratio Sodium (136-145) mmol/L Potassium (3.5-5.1) mmol/L Chloride (98-107) mmol/L Carbon Dioxide (21-32) mmol/L Anion Gap (3-11) BUN (7-18) mg/dl Creatinine (0.6-1.2) mg/dl Est Cr Clr Drug Dosing ml/min Est GFR ( Amer) Est GFR (Non-Af Amer) BUN/Creatinine Ratio (10-20) Glucose (70-99) mg/dl Lactate 1.8 (0.4-2.0) mmol/L Calcium (8.5-10.1) mg/dl Phosphorus (2.5-4.9) mg/dl Magnesium (1.8-2.4) mg/dl Total Bilirubin (0.2-1) mg/dl Direct Bilirubin (0-0.2) mg/dl AST (15-37) U/L ALT (12-78) U/L Alkaline Phosphatase (45-117) U/L Troponin I (0-0.045) ng/ml Total Protein (6.4-8.2) gm/dl Albumin (3.4-5.0) gm/dl Globulin (2.5-4.0) gm/dl Albumin/Globulin Ratio (0.9-2) Procalcitonin (0-0.5) ng/ml Specimen Hemolysis COVID-19 Eval Order CovFluRsv at [facility] SARS-CoV-2 (PCR) Pending Influenza Type A (PCR) Pending Influenza Type B (PCR) Pending RSV (RT-PCR) Pending 07/16/20 07/16/20 07/16/20 Range/Units 16:03 16:03 16:03 WBC 5.34 (4.8-10.8) K/uL RBC 4.83 (4.2-5.4) M/uL Hgb 12.0 (12.0-16.0) g/dL Hct 38.3 (37-47) % MCV 79.3 L (80-100) fL MCH 24.8 L (25-34) pg MCHC 31.3 L (32-36) g/dL RDW Std Deviation 56.9 H (36.4-46.3) fL RDW Coeff of Jarvis 19.6 H (11.5-14.5) % Plt Count 159 (130-400) K/uL MPV 10.3 (7.4-10.4) fL Immature Gran % (Auto) 0.2 % Neut % (Auto) 63.6 % Lymph % (Auto) 30.0 % [place] % (Auto) 6.0 % Eos % (Auto) 0.0 % Baso % (Auto) 0.2 % Neut # (Auto) 3.40 (1.4-6.5) K/uL Lymph # (Auto) 1.60 (1.2-3.4) K/uL [place] # (Auto) 0.32 (0.11-0.59) K/uL Eos # (Auto) 0.00 (0-0.5) K/uL Baso # (Auto) 0.01 (0-0.2) K/uL Immature Gran # (Auto) 0.01 (0.00-0.02) K/uL PT 11.7 (9.0-12.0) Seconds INR 1.1 (0.9-1.1) APTT 32.5 H (21.0-31.0) Seconds PTT Ratio 1.2 Sodium (136-145) mmol/L Potassium (3.5-5.1) mmol/L Chloride (98-107) mmol/L Carbon Dioxide (21-32) mmol/L Anion Gap (3-11) BUN (7-18) mg/dl Creatinine (0.6-1.2) mg/dl Est Cr Clr Drug Dosing ml/min Est GFR ( Amer) Est GFR (Non-Af Amer) BUN/Creatinine Ratio (10-20) Glucose (70-99) mg/dl Lactate (0.4-2.0) mmol/L Calcium (8.5-10.1) mg/dl Phosphorus (2.5-4.9) mg/dl Magnesium (1.8-2.4) mg/dl Total Bilirubin (0.2-1) mg/dl Direct Bilirubin (0-0.2) mg/dl AST (15-37) U/L ALT (12-78) U/L Alkaline Phosphatase (45-117) U/L Troponin I (0-0.045) ng/ml Total Protein (6.4-8.2) gm/dl Albumin (3.4-5.0) gm/dl Globulin (2.5-4.0) gm/dl Albumin/Globulin Ratio (0.9-2) Procalcitonin 0.18 (0-0.5) ng/ml Specimen Hemolysis COVID-19 Eval Order SARS-CoV-2 (PCR) Influenza Type A (PCR) Influenza Type B (PCR) RSV (RT-PCR) 07/16/20 Range/Units 16:03 WBC (4.8-10.8) K/uL RBC (4.2-5.4) M/uL Hgb (12.0-16.0) g/dL Hct (37-47) % MCV (80-100) fL MCH (25-34) pg MCHC (32-36) g/dL RDW Std Deviation (36.4-46.3) fL RDW Coeff of Jarvis (11.5-14.5) % Plt Count (130-400) K/uL MPV (7.4-10.4) fL Immature Gran % (Auto) % Neut % (Auto) % Lymph % (Auto) % [place] % (Auto) % Eos % (Auto) % Baso % (Auto) % Neut # (Auto) (1.4-6.5) K/uL Lymph # (Auto) (1.2-3.4) K/uL [place] # (Auto) (0.11-0.59) K/uL Eos # (Auto) (0-0.5) K/uL Baso # (Auto) (0-0.2) K/uL Immature Gran # (Auto) (0.00-0.02) K/uL PT (9.0-12.0) Seconds INR (0.9-1.1) APTT (21.0-31.0) Seconds PTT Ratio Sodium 136 (136-145) mmol/L Potassium 4.2 (3.5-5.1) mmol/L Chloride 104 (98-107) mmol/L Carbon Dioxide 26 (21-32) mmol/L Anion Gap 7.0 (3-11) BUN 18 (7-18) mg/dl Creatinine 0.98 (0.6-1.2) mg/dl Est Cr Clr Drug Dosing 45.5 ml/min Est GFR ( Amer) 67.3 Est GFR (Non-Af Amer) 58.0 BUN/Creatinine Ratio 17.9 (10-20) Glucose 64 L (70-99) mg/dl Lactate (0.4-2.0) mmol/L Calcium 9.1 (8.5-10.1) mg/dl Phosphorus 2.6 (2.5-4.9) mg/dl Magnesium 1.6 L (1.8-2.4) mg/dl Total Bilirubin 0.6 (0.2-1) mg/dl Direct Bilirubin (0-0.2) mg/dl AST 17 (15-37) U/L ALT 16 (12-78) U/L Alkaline Phosphatase 83 (45-117) U/L Troponin I 0.103 H* (0-0.045) ng/ml Total Protein 6.2 L (6.4-8.2) gm/dl Albumin 2.6 L (3.4-5.0) gm/dl Globulin 3.6 (2.5-4.0) gm/dl Albumin/Globulin Ratio 0.7 L (0.9-2) Procalcitonin (0-0.5) ng/ml Specimen Hemolysis COVID-19 Eval Order SARS-CoV-2 (PCR) Influenza Type A (PCR) Influenza Type B (PCR) RSV (RT-PCR) Diagnostic Findings Chest x-ray image personally reviewed by me and agree with the following report: XR chest 1V portable CLINICAL HISTORY: SEPSIS COMPARISON STUDY: 12/12/2019 FINDINGS: The heart is normal in size. There are patchy bilateral pulmonary airspace opacities suspicious for a multifocal pneumonia. Correlation with Covid 19 testing is recommended. There are no cystic pleural effusions. There is no pneumothorax. Arthritic changes are present within the shoulders.[ IMPRESSION: Multifocal airspace opacities suspicious for a multifocal pneumonia. ECG Additional Comments: ECG on 07/16/2020 at 1549 with sinus rhythm with PACs, rate 99, possible ST depression in inferior leads but difficult to tell due to artifact Code Status & VTE Plan Code Status Full code VTE Prophylaxis Plan VTE Prophylaxis will be ordered: Yes PG Care Time/CCT Total # of Minutes Spent Total Time Spent with Patient: Total time spent is greater than 50% in coordination of care (as documented) at patient's floor/unit and/or counseling patient: Coding Level of Care Code 12508 Initial Inpt Care Lvl 3 Diagnoses Acute respiratory failure with hypoxia J96.01 Pneumonia due to COVID-19 virus U07.1; J12.82 Elevated troponin R77.8 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
[2020-07-16 18:03] LABS: Influenza A virus by PCR Negative (Neg); Influenza B virus by PCR Negative (Neg); RSV by PCR Negative (Neg)
[2020-07-16 18:08] LABS: SARS CoV2 RNA(COVID-19) InHosp POSITIVE (Negative)
[2020-07-16] MEDS: MAGNESIUM SULFATE / D5W 1 GM/100 ML BAG IV SCH ×2 (18:11→20:00)
[2020-07-16 18:22] LABS: Appearance Urine Clear (Clear); Bacteria Urine Automated Negative (Negative); Bilirubin Urine Negative (Negative); Blood Urine Negative (Negative); Color Urine Yellow; Epithelial Cell Urine Auto >30 /lpf (0-5); Glucose Urine UA Negative (Negative); Ketones Urine Negative (Negative); Leukocyte Esterase Urine Negative (Negative); Nitrite Urine Negative (Negative); Protein Urine 1+ (Negative); Specific Gravity Urine 1.021 (1.000-1.030); Urobilinogen Urine Negative (Negative)
[2020-07-16] MEDS ORDERED: SODIUM CHLORIDE 0.9% 10ML FLUSH IV SCH (19:09)
[2020-07-16] MEDS ORDERED: REMDESIVIR 200 MG in SODIUM CHLORIDE 0.9% 210 ML IV STA (19:09)
[2020-07-16] MEDS: NSS + 20MEQ KCL 20 MEQ/1,000 ML BAG IV SCH (20:33)
[2020-07-16] MEDS ORDERED: ALBUTEROL HFA 8 GM INHALER INH PRN (22:03)
[2020-07-16] MEDS ORDERED: ACETAMINOPHEN 325 MG TAB PO PRN (22:03)
[2020-07-16] MEDS ORDERED: LIDOCAINE 5% 1 PATCH TD PRN (22:03)
[2020-07-16] MEDS ORDERED: ONDANSETRON INJ 2 MG/ML 2 ML VIAL IV PRN (22:03)
[2020-07-16] MEDS ORDERED: LOPERAMIDE HCL 2 MG CAP PO STA (22:10)
[2020-07-16] MEDS: HYDROXYCHLOROQUINE SULFATE 200 MG TAB PO SCH (23:51)
[2020-07-16] MEDS: METOPROLOL TARTRATE 25 MG TAB PO SCH (23:52)
[2020-07-16] MEDS: GABAPENTIN 300 MG CAP PO SCH (23:52)
[2020-07-16] MEDS: APIXABAN 5 MG TABLET PO SCH (23:53)
[2020-07-16] MEDS: OXYBUTYNIN CHLORIDE 5 MG TAB PO SCH (23:53)
[2020-07-17] MEDS: HYDROcodone/ACETAMINOPHEN 10/325 TAB PO PRN ×2 (01:14→22:43)
[2020-07-17 07:43] LABS: Basophils # (auto) 0.01 K/uL (0-0.2); Basophils % (auto) 0.5 %; Hematocrit (blood only) 36.5 % (37-47); Hemoglobin 11.2 g/dL (12.0-16.0); Immature Granulocytes # (auto) 0.01 K/uL (0.00-0.02); Immature Granulocytes % (auto) 0.5 %; Lymphocytes # (auto) 0.39 K/uL (1.2-3.4); Lymphocytes % (auto) 17.6 %; Mean Corpuscular Hemoglobin 24.1 pg (25-34); Mean Corpuscular Hgb Conc 30.7 g/dL (32-36); Mean Corpuscular Volume 78.7 fL (80-100); Mean Platelet Volume 10.1 fL (7.4-10.4); Monocytes # (auto) 0.07 K/uL (0.11-0.59); Monocytes % (auto) 3.2 %; Neutrophils # (auto) 1.74 K/uL (1.4-6.5); Neutrophils % (auto) 78.2 %; Platelet Count 148 K/uL (130-400); RDW Coefficient of Variation 19.6 % (11.5-14.5); RDW Standard Deviation 56.4 fL (36.4-46.3); Red Blood Count 4.64 M/uL (4.2-5.4); White Blood Count 2.22 K/uL (4.8-10.8)
[2020-07-17] MEDS: APIXABAN 5 MG TABLET PO SCH ×2 (07:48→20:53)
[2020-07-17] MEDS: METOPROLOL TARTRATE 25 MG TAB PO SCH ×2 (07:48→20:52)
[2020-07-17] MEDS: HYDROXYCHLOROQUINE SULFATE 200 MG TAB PO SCH ×2 (07:49→20:53)
[2020-07-17] MEDS: GABAPENTIN 300 MG CAP PO SCH ×3 (07:49→20:52)
[2020-07-17] MEDS: OXYBUTYNIN CHLORIDE 5 MG TAB PO SCH ×2 (07:50→20:52)
[2020-07-17] MEDS: CEROVITE ADV FORMULA TAB PO SCH (07:50)
[2020-07-17] MEDS: PANTOprazole 40 MG TAB PO SCH ×2 (07:51→20:51)
[2020-07-17] MEDS: dexAMETHasone 6 MG in SYRINGE 0 ML IV SCH (08:03)
[2020-07-17 08:10] LABS: Albumin Level 2.4 gm/dl (3.4-5.0); BUN Creatinine Ratio 25.1 (10-20); C Reactive Protein 17.3 mg/dl (0-0.29); Creatinine Clr Calc Pharmacy 56.2 ml/min; Est GFR (African American) 91.5; Est GFR (Non-African American) 78.9; Magnesium 2.3 mg/dl (1.8-2.4); Potassium 4.4 mmol/L (3.5-5.1)
[2020-07-17 08:21] LABS: Albumin Globulin Ratio 0.7 (0.9-2); Bilirubin,Total 0.4 mg/dl (0.2-1); Globulin 3.5 gm/dl (2.5-4.0); Phosphorus 4.4 mg/dl (2.5-4.9); Total Protein 5.9 gm/dl (6.4-8.2)
[2020-07-17] MEDS ORDERED: CALCITRIOL 0.25 MCG CAPSULE PO SCH (09:00)
[2020-07-17] MEDS: NSS + 20MEQ KCL 20 MEQ/1,000 ML BAG IV SCH ×2 (11:03→22:43)
--- NOTE | 2020-07-17 13:54 | Electrocardiogram Report ---
Test Reason : Blood Pressure : / mmHG Vent. Rate : 099 BPM Atrial Rate : 099 BPM P-R Int : 144 ms QRS Dur : 066 ms QT Int : 304 ms P-R-T Axes : 083 076 -46 degrees QTc Int : 390 ms Poor data quality, interpretation may be adversely affected Sinus rhythm with Premature supraventricular complexes Diffuse Minor Nonspecific T wave abnormality Abnormal ECG When compared with ECG of 29-DEC-2019 22:03, No significant change Confirmed by Nabor Fuentes ([id number] on 07/17/2020 1:54:18 PM Referred By: Confirmed By:Nabor Fuentes
--- NOTE | 2020-07-17 15:54 | Hospitalist Progress Note ---
Date of Service July 17, 2020 Assessment & Plan (1) Acute respiratory failure with hypoxia: Secondary to Covid-19 pneumonia. Required 4 L nasal cannula upon admission; now down to room air. - Continue remdesivir, dexamethasone, as well as convalescent plasma - consent obtained - Flutter valve PRN (2) Elevated troponin: Troponin elevated upon admission at 0.1. Likely myocardial demand ischemia. She has no chest pain, ECG has some artifact but no obvious ischemic changes. 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 - Continue home metoprolol 12.5 mg p.o. twice daily (5) PAF (paroxysmal atrial fibrillation): With a history of such and a previous hospitalization. Follows with cardiology as an outpatient. - Remains on metoprolol and Eliquis for anticoagulation (6) GERD (gastroesophageal reflux disease): No current issues. - Continue PPI twice daily (7) Paroxysmal SVT (supraventricular tachycardia): None since previous hospitalization. - Continue metoprolol (8) RA (rheumatoid arthritis): Hold home leflunomide while with ongoing infection. - Continue steroids as above - Continue home hydroxychloroquine (9) Osteoporosis, unspecified: Continue calcitriol (10) DDD (degenerative disc disease): With chronic severe back pain and severe degenerative disc disease - Continue gabapentin, hydrocodone as needed (11) Anemia: Low normal hemoglobin, mild microcytic - Follow CBC -> Presently ~11 which is baseline for her. (12) DVT prophylaxis: Meghna Admission and Anticipated Discharge Date Admission Date: July 16, 2020 Subjective Doing well today. Weak, but improved about 50% she reports. Reports no fevers/chills, chest pain, shortness of breath, abdominal pain, nausea, or vomiting. Physical Exam Constitutional: WD/WN, vitals as above Eyes: EOM intact bilaterally; no conjunctival abnormality ENMT: external ear and nose normal, oropharynx normal Neck: trachea midline, no thyromegaly normal visual inspection Respiratory: normal respiratory effort, lungs clear to auscultation no respiratory distress Cardiovascular: RRR, no murmur, no edema Gastrointestinal (Abdomen): Inspection/Auscultation: abdomen normal to inspection; abdomen not distended Musculoskeletal: no cyanosis or clubbing, extremities motor strength 5/5 Skin: no rashes, warm and dry Neurologic: moves all extremities and awake Psychiatric: Orientation: alert, oriented to person and cooperative Results & Data Results & Data ([facility]) Vital Signs (Past 12 Hours) Vital Signs Temp Pulse Resp BP Pulse Ox 07/17/20 11:50 36.6 C 70 18 146/100 H 97 07/17/20 08:58 36.6 C 66 18 146/100 H 97 07/17/20 05:15 36.6 C 64 18 162/83 H 98 PG Care Time/CCT Total # of Minutes Spent Total Time Spent with Patient: Total time spent is greater than 50% in coordination of care (as documented) at patient's floor/unit and/or counseling patient: Coding Level of Care Code 10739 Subseq Hosp Care Lvl 2 Diagnoses Acute respiratory failure with hypoxia J96.01 Elevated troponin R77.8 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
[2020-07-17] MEDS ORDERED: REMDESIVIR 100 MG in SODIUM CHLORIDE 0.9% 230 ML IV SCH (20:00)
[2020-07-17] MEDS ORDERED: SODIUM CHLORIDE 0.9% 10ML FLUSH IV SCH (20:00)
[2020-07-18] MEDS: HYDROXYCHLOROQUINE SULFATE 200 MG TAB PO SCH (08:48)
[2020-07-18] MEDS: PANTOprazole 40 MG TAB PO SCH (08:48)
[2020-07-18] MEDS: METOPROLOL TARTRATE 25 MG TAB PO SCH (08:48)
[2020-07-18] MEDS: GABAPENTIN 300 MG CAP PO SCH (08:48)
[2020-07-18] MEDS: OXYBUTYNIN CHLORIDE 5 MG TAB PO SCH (08:48)
[2020-07-18] MEDS: dexAMETHasone 6 MG in SYRINGE 0 ML IV SCH (08:48)
[2020-07-18] MEDS: CEROVITE ADV FORMULA TAB PO SCH (08:48)
[2020-07-18] MEDS: APIXABAN 5 MG TABLET PO SCH (08:48)
[2020-07-18] MEDS: NSS + 20MEQ KCL 20 MEQ/1,000 ML BAG IV SCH (09:12)
[2020-07-18 10:02] LABS: Creatinine Clr Calc Pharmacy 58.5 ml/min; Est GFR (Non-African American) 82.9
--- NOTE | 2020-07-18 14:02 | Electrocardiogram Report ---
Test Reason : Blood Pressure : / mmHG Vent. Rate : 075 BPM Atrial Rate : 075 BPM P-R Int : 150 ms QRS Dur : 080 ms QT Int : 410 ms P-R-T Axes : 069 026 011 degrees QTc Int : 457 ms Sinus rhythm with Premature atrial complexes T wave abnormality, consider anterolateral ischemia Abnormal ECG When compared with ECG of 16-JUL-2020 15:49, T wave inversion now evident in Anterolateral leads Confirmed by Mariano Casper ([id number]) on 07/18/2020 2:01:55 PM Referred By: REFERRED SELF Confirmed By:Mariano Casper
--- NOTE | 2020-07-18 17:53 | Discharge Summary ---
Date of Service July 18, 2020 Admission HPI Per Admitting Provider This patient is a 69-year-old female with a history of paroxysmal atrial fibrillation, paroxysmal SVT, RA on prednisone, Hodgkin's in remission, GERD, DDD, anemia, HTN, LVH, who presents to the ER with 4 days of body aches, feeling feverish, dry cough, and diarrhea. She denies any shortness of breath, cough, or chest pain. Her currently has Covid-19 and her Covid test was pending at the time of admission. She was found to have hypoxia in the ER was placed on supplemental O2. Her chest x-ray showed bilateral infiltrates. Her troponin was mildly elevated but similar to previous. Her ECG showed sinus rhythm with PACs and nonspecific ST and T wave abnormality in inferior leads but does have a lot of artifact. She was also febrile, tachycardic, and mildly tachypneic in the ER. She was given IV Tylenol, Mucinex, albuterol HFA, Decadron and 1 L of normal saline as well as 2 g of IV magnesium sulfate. She will be admitted for acute respiratory failure with hypoxia secondary Covid- 19 pneumonia Principal Diagnosis Covid 19 Discharge Exam Constitutional WD/WN, vitals as above Eyes EOM intact bilaterally; no conjunctival abnormality ENMT external ear and nose normal, oropharynx normal Neck trachea midline, no thyromegaly normal visual inspection Respiratory normal respiratory effort, lungs clear to auscultation no respiratory distress Cardiovascular RRR, no murmur, no edema Gastrointestinal (Abdomen) Inspection/Auscultation: abdomen normal to inspection; abdomen not distended Musculoskeletal no cyanosis or clubbing, extremities motor strength 5/5 Skin no rashes, warm and dry Neurologic moves all extremities and awake Psychiatric Orientation: alert, oriented to person and cooperative Discharge Data Allergies Allergy/AdvReac Type Severity Reaction Status Date / Time dalbavancin Allergy Severe hypotension, Verified 07/16/20 19:38 flushing, tachypnea ciprofloxacin [From Cipro] AdvReac Unknown Verified 07/16/20 18:30 Consultations 07/16/20 17:13 ED Decision to Admit Stat Hospital Course (1) Acute respiratory failure with hypoxia: Secondary to Covid-19 pneumonia. Required 4 L nasal cannula upon admission; now down to room air. - Continue remdesivir, dexamethasone, as well as convalescent plasma - consent obtained - Flutter valve PRN - Was doing well on room air by 07/17 & 07/18. Discharged on remaining de xamethasone taper, then return to home prednisone. - Can use Imodium for diarrhea which was her main Covid-related issue by discharge. (2) Elevated troponin: Troponin elevated upon admission at 0.1. Likely myocardial demand ischemia. She has no chest pain, ECG has some artifact but no obvious ischemic changes. - Trended down to 0.06 by 07/17 - Can work-up outpatient if desired. (3) [facility] systemic steroid user: Typically on prednisone 5 mg once daily in the morning and 1 mg at night - Holding home prednisone while giving Decadron as above (4) Hypertension: Blood pressures are acceptable today at 145/100. - Continue home metoprolol 12.5 mg p.o. twice daily (5) PAF (paroxysmal atrial fibrillation): With a history of such and a previous hospitalization. Follows with cardiology as an outpatient. - Remains on metoprolol and Eliquis for anticoagulation (6) GERD (gastroesophageal reflux disease): No current issues. - Continue PPI twice daily (7) Paroxysmal SVT (supraventricular tachycardia): None since previous hospitalization. - Continue metoprolol (8) RA (rheumatoid arthritis): - Held home leflunomide while with ongoing infection; however, given stability/improvement, no change on discharge. - Continue steroids as above - Continue home hydroxychloroquine (9) Osteoporosis, unspecified: Continue calcitriol (10) DDD (degenerative disc disease): With chronic severe back pain and severe degenerative disc disease - Continue gabapentin, hydrocodone as needed (11) Anemia: Low normal hemoglobin, mild microcytic - Follow CBC -> Presently ~11 which is baseline for her. (12) DVT prophylaxis: Eliquis Total Time Total Time Spent Total Time Spent (In Minutes): 35 Discharge Plan Discharge Items Patient Disposition: Home - Self-Care Reason For Visit: COVID 19 PNEUMONIA, HYPOXIA Discharge Diagnosis: Covid pneumonia Activity: Resume your previous activity Non-emergency contact: Primary Care Provider Call non-emergency contact if: your symptoms worsen and your temperature is above 101 Follow-up/Referrals: Sylvia Nails MD [Primary Care Provider] - 07/25/20 11:30 am ([facility] WILL CALL YOU FOR THE FOLLOW UP APT. PLEASE DO NOT GO TO THE OFFICE) Diet: Regular Addtl Attending Provider Instructions: You were admitted with Covid-19 infection that caused weakness & diarrhea. You also had some trouble breathing, but luckily this was very temporary. Please take the steroid (dexamethasone) once per day for the next week. After that, you can go back to your normal prednisone dosing. You do not need to take the steroid (prednisone) taper that your PCP sent you. You can also use Imodium for any further diarrhea until it clears up. This is a very common Covid symptom. Please isolate until July 27. At that time, you will be ok to go outside because you will be considered non-contagious from Covid-19. Pending Studies at Discharge: No Stand-Alone Forms: My [facility] [employer], Smoking Cessation Medications and DC Order Prescriptions: New dexamethasone 6 mg tablet 6 mg PO DAILY Qty: 7 RF: 0 Continued Eliquis 5 mg tablet 5 mg PO BID Qty: 180 RF: 1 metoprolol tartrate 25 mg tablet 12.5 mg PO BID Qty: 90 RF: 1 oxybutynin chloride 5 mg tablet 5 mg PO BID Qty: 180 RF: 1 lidocaine 5 % adhesive patch,medicated 1 patch topical DAILY PRN (Reason: Pain) RF: 0 hydroxychloroquine [Plaquenil] 200 mg tablet 200 mg PO BID RF: 0 leflunomide 20 mg tablet 20 mg PO DAILY RF: 0 (DME) Knee Stabilizer misc See Dose Instructions .ROUTE .MEDSUPPLY Qty: 1 RF: 0 prednisone 5 mg Tablet 5 mg PO QAM RF: 0 prednisone 1 mg Tablet 1 mg PO QPM RF: 0 Probiotic 3 billion cell Capsule 3,000 mmu cells PO QAM RF: 0 [facility] 7,160 unit-113 mg-100 unit Tablet 1 tab PO QAM RF: 0 sennosides [Senokot] 8.6 mg tablet 17.2 mg PO HS RF: 0 calcitriol [Rocaltrol] 0.5 mcg capsule 0.5 mcg PO 2XWK RF: 0 docusate sodium 100 mg capsule 100 mg PO HS PRN (Reason: constipation) RF: 0 omeprazole 20 mg capsule,delayed release(DR/EC) 20 mg PO BID RF: 0 cranberry 500 mg Capsule 500 mg PO QPM RF: 0 hydrocodone-acetaminophen 10-325 mg tablet 1 tab PO Q6 PRN (Reason: Pain) RF: 0 gabapentin 300 mg capsule 300 mg PO TID RF: 0 Calcium 600 + D(3) 600 mg calcium- 200 unit Capsule 1 cap PO BID RF: 0 Discontinued prednisone 20 mg tablet See Rx Instructions PO .COMPLEX Qty: 30 RF: 0 Discharge Orders: Discharge Order (Routine); Ordered 07/18/20 Ordered By: Abhijeet Ribeiro Admission Data Admit Date/Time: 07/16/20 19:09 Attending Provider: Abhijeet Ribeiro Admit Provider: Earline Carbajal Primary Care Provider: Sylvia Nails Other Providers: Abhijeet Ribeiro Other Interventions: Discharge Summary Assessment (RN) Last Done: 07/18/20 12:50 Coding Level of Care Code D/C Day Management >30 mins Diagnoses Acute respiratory failure with hypoxia J96.01 Elevated troponin R77.8 FCI systemic steroid user Z79.52 Hypertension I10 PAF (paroxysmal atrial fibrillation) I48.0 GERD (gastroesophageal reflux disease) K21.9 Paroxysmal SVT (supraventricular tachycardia) I47.1 RA (rheumatoid arthritis) M06.9 Osteoporosis, unspecified M81.0 DDD (degenerative disc disease) Anemia D64.9 DVT prophylaxis Z29.9
== END 2020-07-18 14:50 | disposition home or self-care (01) | DRG 177 ==
LOC: ED 15:22 → SUATTDRO 19:09 → 2S 19:09

== ENCOUNTER 2020-10-02 07:54 | Inpatient (IN) ==
--- NOTE | 2020-09-04 13:21 | PAT Medication Instructions ---
Medication Instructions Date of Service September 04, 2020 Home Medications Medication Instructions Recorded leg brace #1 ea 02/10/19 metoprolol tartrate 25 mg tablet 12.5 mg PO BID #90 tab 07/09/20 oxybutynin chloride 5 mg tablet 5 mg PO BID #180 tab 07/09/20 dexamethasone 6 mg PO DAILY #7 tab 07/18/20 apixaban 5 mg tablet 5 mg PO BID #180 tab 07/25/20 nystatin 100,000 unit/mL oral 100,000 unit BUCCAL DAILY #60 ml 07/30/20 suspension Probiotic 3,000 mmu cells PO QAM prednisone 1 mg PO QPM prednisone 5 mg PO QAM cranberry 500 mg PO QPM omeprazole 20 mg PO BID 0 [facility] 1 tab PO QAM sennosides [Senokot] 17.2 mg PO HS calcitriol [Rocaltrol] 0.5 mcg PO 2XWK docusate sodium 100 mg PO HS PRN hydroxychloroquine 200 mg tablet 200 mg PO BID leflunomide 20 mg tablet 20 mg PO DAILY lidocaine 5 % topical patch 1 patch TOPICAL DAILY PRN metoprolol tartrate 25 mg tablet 12.5 mg PO BID oxybutynin chloride 5 mg tablet 5 mg PO BID Calcium 600 + D(3) 1 cap PO BID gabapentin 300 mg PO TID hydrocodone-acetaminophen 1 tab PO Q6 PRN dexamethasone 6 mg PO DAILY apixaban 5 mg tablet 5 mg PO BID nystatin 100,000 unit/mL oral suspension 100,000 unit BUCCAL DAILY Continue as directed calcitriol [Rocaltrol] 0.5 mcg PO 2XWK (just do not take on morning of surgery) lidocaine 5 % topical patch 1 patch TOPICAL DAILY PRN (as long as patch is not on or near surgical site) nystatin 100,000 unit/mL oral suspension 100,000 unit BUCCAL DAILY (do not swallow medication morning of surgery) ASK your prescriber and surgeon hydroxychloroquine 200 mg tablet 200 mg PO BID leflunomide 20 mg tablet 20 mg PO DAILY apixaban 5 mg tablet 5 mg PO BID STOP taking 2 weeks before surgery cranberry 500 mg PO QPM [facility] 1 tab PO QAM DO NOT take the morning of surgery Probiotic 3,000 mmu cells PO QAM oxybutynin chloride 5 mg tablet 5 mg PO BID Calcium 600 + D(3) 1 cap PO BID Take morning of surgery With a small sip of water, OTHERWISE NOTHING TO EAT OR DRINK AFTER MIDNIGHT: prednisone 5 mg PO QAM omeprazole 20 mg PO BID metoprolol tartrate 25 mg tablet 12.5 mg PO BID gabapentin 300 mg PO TID hydrocodone-acetaminophen 1 tab PO Q6 PRN (okay to take up to 4 hours prior to surgery if needed) dexamethasone 6 mg PO DAILY Take evening before surgery prednisone 1 mg PO QPM omeprazole 20 mg PO BID sennosides [Senokot] 17.2 mg PO HS docusate sodium 100 mg PO HS PRN (if needed) metoprolol tartrate 25 mg tablet 12.5 mg PO BID oxybutynin chloride 5 mg tablet 5 mg PO BID Calcium 600 + D(3) 1 cap PO BID gabapentin 300 mg PO TID hydrocodone-acetaminophen 1 tab PO Q6 PRN (if needed) Other Notes If you have any questions please call us at [phone] or [phone] or [phone] or [phone]
--- NOTE | 2020-09-06 12:19 | Anesthesiology Consultation ---
Date of Service September 06, 2020 Assessment & Plan (1) Encounter for pre-operative examination: Chart Review Chart Review: Pending: Refer to Additional Notes / Consult section (pending cardio clearance, PCP clearance and preop Covid testing ) and Patient seen in Pre Admission Testing Awaiting cardio clearance (09/12) and PCP clearance (09/12) History of glossectomy with unilateral radiacal neck dissection Per PT appointment 09/06/2020, patient denies any recent travel or large group activities. No known Covid positive contacts. Pt did test Covid positive on 07/16/20 at [facility] (at that time had fever, hypoxia, cough, chills, loss of taste/smell- sxs have since resolved with exception to mild residual taste/smell issues). Preop Covid testing scheduled 09/25/20= will await results. Educated on importance of self quarantining, social distancing and wearing mask in public both for the patient and household contacts. Right TKA revision 02/29/20= Done under [facility] with PNB with LMA #4 History Surgery Operation Date: 10/02/20 07:45 Proposed Procedures p L1-S1 Decompression, T12-S1 Fusion, Possible Iliac Bolts Spinal Cord Monitoring - [facility] [place], Height/Weight Height: 5 ft 2.75 in Weight: 59.7 kg Allergies Allergy/AdvReac Type Severity Reaction Status Date / Time dalbavancin Allergy Severe hypotension, Verified 08/22/20 15:58 flushing, tachypnea ciprofloxacin [From Cipro] AdvReac Unknown Verified 08/22/20 15:58 Medications Home Medications Medication Instructions Recorded Confirmed Last Taken Probiotic 3,000 mmu cells PO QAM 03/30/18 08/22/20 08/04/20 prednisone 1 mg PO QPM 03/30/18 08/22/20 08/03/20 prednisone 5 mg PO QAM 03/30/18 08/22/20 08/04/20 cranberry 500 mg PO QPM 09/29/18 08/22/20 08/03/20 omeprazole 20 mg PO BID 09/29/18 08/22/20 08/04/20 [facility] 1 tab PO QAM 10/08/18 08/22/20 08/04/20 leg brace #1 ea 02/10/19 08/22/20 Unknown sennosides [Senokot] 17.2 mg PO HS 08/11/19 08/22/20 08/04/20 calcitriol [Rocaltrol] 0.5 mcg PO 2XWK 02/21/20 08/22/20 08/04/20 docusate sodium 100 mg PO HS PRN 02/21/20 08/22/20 02/26/20 22:00 hydroxychloroquine 200 mg tablet 200 mg PO BID 03/27/20 08/22/20 08/04/20 leflunomide 20 mg tablet 20 mg PO DAILY 03/27/20 08/22/20 08/04/20 lidocaine 5 % topical patch 1 patch TOPICAL DAILY PRN ea 03/27/20 08/22/20 Unknown metoprolol tartrate 25 mg tablet 12.5 mg PO BID #90 tab 07/09/20 08/22/20 08/04/20 oxybutynin chloride 5 mg tablet 5 mg PO BID #180 tab 07/09/20 08/22/20 08/04/20 Calcium 600 + D(3) 1 cap PO BID 07/16/20 08/22/20 08/04/20 gabapentin 300 mg PO TID 07/16/20 08/22/20 08/04/20 hydrocodone-acetaminophen 1 tab PO Q6 PRN 07/16/20 08/22/20 08/04/20 apixaban 5 mg tablet 5 mg PO BID #180 tab 07/25/20 08/22/20 08/04/20 nystatin 100,000 unit/mL oral 100,000 unit BUCCAL DAILY #60 ml 07/30/20 08/22/20 08/04/20 suspension Past Medical History Medical History (Updated 09/07/20 @ 09:24 by Deanna Henderson PA-C) Anemia follows with Dr. Thibodeaux, s/p IV iron infusions No recent iron infusion Chronic back pain DDD (degenerative disc disease) GERD (gastroesophageal reflux disease) controlled History of COVID-19 hospitalized 07/16/20 [facility]. hypoxia, fever, cough, chills, loss of taste/smell. pt reports taste/smell still not fully back to normal. History of Hodgkin's lymphoma 2003/under surveillance by PCP/Dr. Thibodaeux- S/p chemo in 2004- none since History of oral cancer s/p tongue excision left side (no chemo/no XRT 2013) No issues since Overactive bladder PAF (paroxysmal atrial fibrillation) hx - on Eliquis Paroxysmal SVT (supraventricular tachycardia) hx (follows with Dr. Vance) RA (rheumatoid arthritis) on chronic steroid Skin benign neoplasm Vertigo No current issues Exercise / Class Metabolic Activity III < 4 Walking/Shop/Light housework (no chest pain or SOB with short distance, flat surface ambulation- uses walker at home- uses wheelchair when outside house ) Past Family History Family History Mother Breast cancer Colorectal cancer Cancer Gastric cancer Aunt Colorectal cancer Other Family history non-contributory Denies family history of Ovarian cancer Prostate cancer Myocardial infarction Past Surgical History Surgical History H/O foot surgery TOES X MULTIPLE H/O parathyroidectomy History of biopsy Of soft tissue of the neck History of breast surgery Puncture aspiration of cyst History of carpal tunnel release RIGHT History of colonoscopy History of colposcopy with cervical biopsy with endocervical curettage History of glossectomy with unilateral radical neck dissection History of hip surgery R/L REVISION Left MAURO revision: 11/09/18: SABx1 at L3-L4 at [facility] History of total hip arthroplasty R/L History of total knee replacement R/L History of tubal ligation Hx of hand surgery RIGHT Hx of knee surgery most recent 02/28/2020 [facility] Right TKA revision, I&D, antibiotic spacer: 12/29/19: SAB + PNB at [facility] S/P revision of total knee 12/29/19 Dr. Ihsan Vela- Right total knee revision, Incision and drainage with antibiotic cement spacer Past Anesthesia History No Hx of Anesthesia Complications and No Family Hx of Anesthesia Complications History of PONV No Hx of PONV and No Hx of Motion Sickness Social History Smoking Status: Never smoker Do You Dip or Chew Tobacco: No Hx Alcohol Use: Yes Alcohol type: hard liquor alcohol intake frequency: holidays/special occasions only Hx Substance Use: No substance use type: does not use Review of Systems Hx of blood transfusion - s/p surgeries and/or anemia - no recent issues Patient denies chest pain, shortness of breath, dyspnea on exertion, cough, wheezing, palpitations. No hx of seizures, stroke, ND, apnea/snoring. No hx of blood clots. Physical Exam Vital Signs VITALS BP 136/72 P 76 TEMP 98.7 SP02 94% RESP 16 Constitutional no acute distress ENMT Mouth: no TMJ clicking Thyromental Distance: < 3.5 Finger Breadths (3.0) Mallampati Class: III Missing molars Neck neck extension not limited Respiratory normal respiratory effort; no respiratory distress Auscultation: lungs clear to auscultation bilaterally; no wheezes Cardiovascular Rate/Rhythm: regular rate and regular rhythm Heart Sounds: no murmur Vessels: no carotid bruit Musculoskeletal Spine: no pain with cervical ROM Extremities: extremities normal to inspection Psychiatric Orientation: alert Testing Laboratory Results 09/06/20 12:31 09/06/20 12:32 PT 10.8 Seconds (9.0-12.0) 09/06/20 12:31 INR 1.1 (0.9-1.1) 09/06/20 12:31 APTT 26.5 Seconds (21.0-31.0) 09/06/20 12:31 Urine Color Yellow 09/06/20 12:31 Urine Appearance Clear (Clear) 09/06/20 12:31 Urine pH 6.0 (4.5-7.5) 09/06/20 12:31 Ur Specific [place] 1.010 (1.000-1.030) 09/06/20 12:31 Urine Protein Negative (Negative) 09/06/20 12:31 Urine Glucose (UA) Negative (Negative) 09/06/20 12:31 Urine Ketones Negative (Negative) 09/06/20 12:31 Urine Nitrite Negative (Negative) 09/06/20 12:31 Ur Leukocyte Esterase Negative (Negative) 09/06/20 12:31 Blood Type O Positive 09/06/20 12:31 Antibody Screen NEGATIVE 09/06/20 12:31 Electrocardiogram Date: 09/06/20 Findings: + NSR @ (84bpm) T wave abnormality, consider lateral ischemia. Compared to EKG from Jul 17- PACs are no longer present, nonspecific T wave abnormality, improved in inferior leads, T wave inversion no longer evident in anterior leads per cardio. Chest X-Ray Date: 09/06/20 Findings: + NAD and + cardiomegaly Chronic interstitial thickening is similar to previous. There is bibasilar scarring/atelectasis. No airspace consolidation or pleural effusion is identified. There is no pneumothorax. Echocardiogram Date: 12/30/19 EF: 60-65% LV Function: normal RWMA: + none Other Findings: + LVH (Mild/concentric) Mild TR. No valvular vegetation. Compared to study dated 06/17/2019no significant changes found. Cervical Spine Date: 09/06/20 Mild anterolisthesis of C3 on C4, and C4 on C5. This finding was present on the prior October 2018 study. The C3 on C4 anterolisthesis is currently visualized only in flexion and reduces in extension. The 3 mm of anterolisthesis of C4 on C5 is currently visualized only in extension.
--- NOTE | 2020-09-06 13:21 | XRay Report ---
TWO VIEW CHEST CLINICAL HISTORY: Preoperative examination. FINDINGS: PA and lateral chest radiographs are compared to study dated 07/16/2020. Correlation is made with chest CT dated 06/21/2019. The heart is mildly enlarged noting atherosclerotic calcification of the thoracic aorta. Chronic interstitial thickening is similar to previous. There is bibasilar scarr ing/atelectasis. No airspace consolidation or pleural effusion is identified. There is no pneumothora x. The skeletal structures are osteopenic. The bony thorax appears intact. Advanced arthritic change and deformity is seen in the shoulders. Surgical clips are noted in the left lower neck. IMPRESSION: Cardiomegaly with no active disease in the chest. ACT 112: Negative or not required by law. Electronically signed by: Geremias Avila M.D. 09/06/2020 1:20 PM
[2020-09-06 13:23] LABS: Basophils # (auto) 0.06 K/uL (0-0.2); Basophils % (auto) 0.6 %; Eosinophils # (auto) 0.21 K/uL (0-0.5); Eosinophils % (auto) 2.2 %; Hematocrit (blood only) 37.6 % (37-47); Hemoglobin 11.3 g/dL (12.0-16.0); Immature Granulocytes # (auto) 0.04 K/uL (0.00-0.02); Immature Granulocytes % (auto) 0.4 %; Lymphocytes # (auto) 1.48 K/uL (1.2-3.4); Lymphocytes % (auto) 15.7 %; Mean Corpuscular Hemoglobin 25.6 pg (25-34); Mean Corpuscular Hgb Conc 30.1 g/dL (32-36); Mean Corpuscular Volume 85.3 fL (80-100); Mean Platelet Volume 9.7 fL (7.4-10.4); Monocytes # (auto) 0.56 K/uL (0.11-0.59); Neutrophils # (auto) 7.05 K/uL (1.4-6.5); Neutrophils % (auto) 75.1 %; Platelet Count 279 K/uL (130-400); RDW Coefficient of Variation 20.9 % (11.5-14.5); RDW Standard Deviation 64.5 fL (36.4-46.3); Red Blood Count 4.41 M/uL (4.2-5.4)
[2020-09-06 13:28] LABS: Appearance Urine Clear (Clear); Bilirubin Urine Negative (Negative); Blood Urine Negative (Negative); Color Urine Yellow; Glucose Urine UA Negative (Negative); Ketones Urine Negative (Negative); Leukocyte Esterase Urine Negative (Negative); Nitrite Urine Negative (Negative); Protein Urine Negative (Negative); Urobilinogen Urine Negative (Negative)
--- NOTE | 2020-09-06 13:28 | XRay Report ---
Lateral view the cervical spine in flexion and extension. CLINICAL HISTORY: Rheumatoid arthritis. Preoperative study. COMPARISON STUDY: 10/15/2018 FINDINGS: Surgical clips are present within the neck. No acute fractures are visualized. There is 3 m m of anterolisthesis of C4 on C5 visualized only in extension. There is 3 mm of anterolisthesis of C3 on C4, visualized only in flexion. There are bony densities projected at the C1-2 level, likely seco ndary to osteophytic spurring. IMPRESSION: 1. Mild anterolisthesis of C3 on C4, and C4 on C5. This finding was present on the prior October 2018 s tudy. The C3 on C4 anterolisthesis is currently visualized only in flexion and reduces in extension. The 3 mm of anterolisthesis of C4 on C5 is currently visualized only in extension. ACT 112: Negative or not required by law. Electronically signed by: Deacon aMy M.D. 09/06/2020 1:27 PM
[2020-09-06 13:38] LABS: INR 1.1 (0.9-1.1); Partial Thromboplastin Time 26.5 Seconds (21.0-31.0); Prothrombin Time 10.8 Seconds (9.0-12.0)
[2020-09-06 13:49] LABS: BUN Creatinine Ratio 18.5 (10-20); Calcium 9.5 mg/dl (8.5-10.1); Creatinine Clr Calc Pharmacy 51.4 ml/min; Est GFR (African American) 84.1; Est GFR (Non-African American) 72.6; Potassium 4.8 mmol/L (3.5-5.1)
[2020-09-06 13:54] LABS: Anisocytosis Present; Ovalocytes 1+; Polychromasia 1+
--- NOTE | 2020-09-07 05:47 | Electrocardiogram Report ---
Test Reason : Blood Pressure : / mmHG Vent. Rate : 084 BPM Atrial Rate : 084 BPM P-R Int : 154 ms QRS Dur : 080 ms QT Int : 364 ms P-R-T Axes : 073 062 049 degrees QTc Int : 430 ms Normal sinus rhythm T wave abnormality, consider anterolateral ischemia Abnormal ECG When compared with ECG of 17-JUL-2020 17:49, Premature atrial complexes are no longer Present Nonspecific T wave abnormality, improved in Inferior leads T wave inversion no longer evident in Anterior leads Confirmed by Yayo Brewer ([id number]) on 09/07/2020 5:47:22 AM Referred By: Golden Snaford Confirmed By:Yayo Brewer
[~2020-10-02 07:54] MED LIST changes: +ALBUMIN HUMAN 5% 12.5 GM/250 ML VIAL IV ONE; -BUPIVACAINE 0.5 % 5 MG/1 ML PF 10ML VIAL ONE; -CEFAZOLIN 1000MG 1,000 MG/7.5 ML SYR IV SCH; -EPINEPHrine INJ 1 MG/ML AMP ONE; -FAMOTIDINE 20 MG TAB PO SCH; +LR 15ML/HR IV SCH; -LR 500ML BOLUS, THEN 15ML/HR IV SCH; -METOCLOPRAMIDE HCL 10 MG TABLET PO SCH; -OXYCODONE HCL 10 MG TABCR (OXYCONTIN) PO SCH; -ROPIVACAINE 0.5% 5 MG/ML 30 ML VIAL ONE; -ROPIVACAINE 0.5% HCL/PF 150 MG, BUPIVACAINE 0.5% MPF 30 ML, EPINEPHrine 30MG/30ML (OR U... INSTIL SCH; -TRANEXAMIC ACID 1,000 MG **IV Intra-op IV SCH; -TRANEXAMIC ACID 1,000 MG **IV Pre-op IV SCH; -VANCOMYCIN HCL 750 MG in SODIUM CHLORIDE 0.9% 250 ML IV SCH; +ceFAZolin 1000MG 1,000 MG/7.5 ML SYR IV SCH
--- NOTE | 2020-10-02 09:08 | History & Physical Bridge Note ---
Date of Service October 02, 2020 History & Physical Bridge Note I have examined the patient, reviewed the History & Physical and in the interval since the performance of the History & Physical I have noted the following changes of clinical significance: no changes noted
--- NOTE | 2020-10-02 09:09 | History & Physical Report ---
Date of Service October 02, 2020 Assessment & Plan (1) Neurogenic claudication due to lumbar spinal stenosis: Admission and Anticipated Discharge Date Admission Date: L1-S1 decompression, T12-S1 fusion History of Present Illness Chief Complaint: Back and bilateral leg pain Primary Care Provider: Sylvia Nails MD This is a 70-year-old female who presents with chronic persistent back and bilateral leg pain. Failing course of nonoperative care she is here for surgical invention. Allergies Allergy/AdvReac Type Severity Reaction Status Date / Time dalbavancin Allergy Severe hypotension, Verified 10/02/20 08:33 flushing, tachypnea Home Medications Medication Instructions Recorded Confirmed Type Probiotic 3,000 mmu cells PO QAM 03/30/18 10/02/20 History prednisone 1 mg PO QPM 03/30/18 10/02/20 History prednisone 5 mg PO QAM 03/30/18 10/02/20 History cranberry 500 mg PO QPM 09/29/18 10/02/20 History omeprazole 20 mg PO BID 09/29/18 10/02/20 History Macuvite Eye Care 1 tab PO QAM 10/08/18 10/02/20 History leg brace #1 ea 02/10/19 09/25/20 Rx sennosides [Senokot] 17.2 mg PO HS 08/11/19 10/02/20 History calcitriol [Rocaltrol] 0.5 mcg PO 2XWK 02/21/20 10/02/20 History docusate sodium 100 mg PO HS PRN 02/21/20 10/02/20 History hydroxychloroquine 200 mg tablet 200 mg PO BID 03/27/20 10/02/20 History leflunomide 20 mg tablet 20 mg PO DAILY 03/27/20 10/02/20 History lidocaine 5 % topical patch 1 patch TOPICAL DAILY PRN ea 03/27/20 10/02/20 History metoprolol tartrate 25 mg tablet 12.5 mg PO BID #90 tab 07/09/20 10/02/20 Rx oxybutynin chloride 5 mg tablet 5 mg PO BID #180 tab 07/09/20 10/02/20 Rx Calcium 600 + D(3) 1 cap PO BID 07/16/20 10/02/20 History gabapentin 300 mg PO TID 07/16/20 10/02/20 History hydrocodone-acetaminophen 1 tab PO Q6 PRN 07/16/20 10/02/20 History apixaban 5 mg tablet 5 mg PO BID #180 tab 07/25/20 10/02/20 Rx Past Med/Surg History Medical History (Updated 10/02/20 @ 09:09 by Golden Sanford DO) Anemia follows with Dr. Thibodeaux, s/p IV iron infusions No recent iron infusion Chronic back pain DDD (degenerative disc disease) GERD (gastroesophageal reflux disease) controlled History of COVID-19 hospitalized 07/16/20 [facility]. hypoxia, fever, cough, chills, loss of taste/smell. pt reports taste/smell still not fully back to normal. History of Hodgkin's lymphoma 2003/under surveillance by PCP/Dr. Thibodeaux- S/p chemo in 2003- none since History of oral cancer s/p tongue excision left side (no chemo/no XRT 2013) No issues since Hypertension Overactive bladder PAF (paroxysmal atrial fibrillation) hx - on Eliquis Paroxysmal SVT (supraventricular tachycardia) hx (follows with Dr. Vance) RA (rheumatoid arthritis) on chronic steroid Skin benign neoplasm Vertigo No current issues Surgical History H/O foot surgery TOES X MULTIPLE H/O parathyroidectomy History of biopsy Of soft tissue of the neck History of breast surgery Puncture aspiration of cyst History of carpal tunnel release RIGHT History of colonoscopy History of colposcopy with cervical biopsy with endocervical curettage History of glossectomy with unilateral radical neck dissection History of hip surgery R/L REVISION Left MAURO revision: 11/09/18: SABx1 at L3-L4 at [facility] History of total hip arthroplasty R/L History of total knee replacement R/L History of tubal ligation Hx of hand surgery RIGHT Hx of knee surgery most recent 02/28/2020 [facility] Right TKA revision, I&D, antibiotic spacer: 12/29/19: SAB + PNB at [facility] S/P revision of total knee 12/29/19 Dr. Ihsan Vela- Right total knee revision, Incision and drainage with antibiotic cement spacer Family History Mother Breast cancer Colorectal cancer Cancer Gastric cancer Aunt Colorectal cancer Other Family history non-contributory Denies family history of Ovarian cancer Prostate cancer Myocardial infarction Social History Smoking Status: Never smoker Second Hand Exposure: No; Do You Dip or Chew Tobacco: No; Hx Alcohol Use: No Hx Substance Use: No Preferred Language: Irish Communication Ability: Effective Visual Impairment: Limited 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: Normal Credit Associate Required: No Beliefs That Will Affect Care: None marital status: Current Living Situation: Spouse current occupational status: retired Feels Safe at Home: Yes Safety Concerns: Feels Safe At This Time Childhood Exposure to Second-Hand Smoke: Yes caffeine: Yes Dental Care, Regularly: Yes Physical Activity Frequency: Other Physical Activity Frequency Comment: Limited by a physical condition Seatbelt Use: always Sunscreen Use: Yes Assistive Devices: Glasses and Walker Physical Exam Physical Exam: Patient is alert and oriented Heart regular rhythm Lungs clear to auscultation Results & Data ([facility]) Vital Signs (Past 12 Hours) Vital Signs Temp Pulse Resp BP BP Pulse Ox 10/02/20 08:42 36.9 C 81 20 135/116 H 194/89 H 99
[2020-10-02] MEDS ORDERED: BUPIVACAINE/EPINEPHRINE 0.5% MPF 1:200,000 30 ML VIAL ONE (10:49)
[2020-10-02] MEDS ORDERED: BACITRACIN INJ 50,000 UNIT VIAL ONE (10:49)
[2020-10-02] MEDS ORDERED: GENTAMICIN SULFATE 40 MG/ML 2 ML VIAL ONE (10:49)
[2020-10-02] MEDS ORDERED: VANCOMYCIN HCL 1000MG/20ML VIAL ONE (10:49)
[2020-10-02] MEDS ORDERED: PROPOFOL IV EMULSION 10 MG/ML 20 ML VIAL IV ONE (10:50)
[2020-10-02] MEDS ORDERED: LIDOCAINE HCL 2% 2 ML VIAL/AMP(20MG/ML) INFIL ONE (10:50)
[2020-10-02] MEDS ORDERED: MIDAZOLAM HCL 1 MG/ML 2ML VIAL ONE (10:50)
[2020-10-02] MEDS ORDERED: ROCURONIUM BROMIDE 10 MG/ML 5 ML VIAL IV ONE ×4 (10:50→10:54)
[2020-10-02] MEDS ORDERED: fentaNYL citrate 100 MCG/2 ML VIAL ONE ×2 (10:51→12:47)
[2020-10-02] MEDS ORDERED: PHENYLEPHRINE 100MCG/ML 5ML SYR IV PRN (10:56)
[2020-10-02] MEDS ORDERED: ONDANSETRON INJ 2 MG/ML 2 ML VIAL IV PRN (10:56)
[2020-10-02] MEDS ORDERED: ePHEDrine sulfate 50 MG/ML AMP IV PRN (10:56)
[2020-10-02] MEDS ORDERED: ATROPINE SULFATE 0.1 MG/ML 10ML SYR IV PRN (10:56)
[2020-10-02] MEDS ORDERED: MEPERIDINE HCL 25 MG/ML CARP/VIAL IV PRN (10:56)
[2020-10-02] MEDS ORDERED: LABETALOL HCL IV 5 MG/ML 20ML IV PRN (10:56)
[2020-10-02] MEDS ORDERED: ONDANSETRON INJ 2 MG/ML 2 ML VIAL ONE (11:42)
[2020-10-02] MEDS ORDERED: PHENYLEPHRINE HCL 10 MG/ML VIAL ONE (11:48)
[2020-10-02] MEDS ORDERED: FLOSEAL HEMOSTATIC MATRIX 10ML TOP ONE (11:55)
[2020-10-02] MEDS ORDERED: GLYCOPYRROLATE 0.2 MG/ML VIAL ONE (12:24)
[2020-10-02] MEDS ORDERED: NEOSTIGMINE METHYLSULFATE 1 MG/ML 10ML VIAL ONE (12:24)
--- NOTE | 2020-10-02 14:14 | Operative Report ---
Post Operative Report Pre & Post Diagnosis Operation Date: 10/02/20 09:35 Pre-Op Diagnosis: Intervertebral Disc Degeneration Lumbar Region Post-Op Diagnosis: Intervertebral Disc Degeneration Lumbar Region I identified the patient and participated in the time-out.: Yes Procedure Operation Date: 10/02/20 09:35 Actual Procedures #1 Lumbar compression with bilateral medial facetectomies and foraminotomies L1-2, L2-3, L3-4, L4-5 and L5-S1. #2 posterior spinal fusion T12-S1. #3 placement posterior segmental instrumentation using medicrea rods and screws T12-S1. This includes a cross-link. #4 placement locally harvested morselized autograft in the posterior gutters. #5 placement of infuse collagen sponge, and master graft in the posterior lateral gutters. Surgeon Golden Sanford, Procurement Forester [place] Estimated Blood Loss 200 Findings Consistent with Post-Op Diagnosis Specimens None Indications This is a 70-year-old female who presents with the above-mentioned diagnosis. After failing since course of nonoperative care she is here for the above- mentioned procedure. Description of Procedure Patient was met with identified informed consent obtained. Patient was then taken to the operative suite underwent a patient placed in a prone position the [place] table top Nelson frame. All bony prominences well-padded I suspected to ensure no external pressure placed upon the. This point the lumbar spine was prepped and draped in normal sterile fashion. Sharp dissection with the assistance of Bovie cautery was performed down to and exposing the lamina and transverse processes of T12 L1-L2 L3-L4-L5 and sacral ala bilaterally. From caudal to cephalad fashion complete laminectomy of L5 L4 L3 L2 and L1 was performed including bilateral medial facetectomies and foraminotomies addressing severe spinal stenosis. Pedicle screws then placed in T12-S1 bilaterally with the assistance of fluoroscopy the proper sized kathryn contoured and locked into position. This included a cross-link. The transverse processes from T12 and the sacral ala were then burred to subcortical bleeding bone. Infuse collagen sponge mass graft local autograft was placed in the posterior lateral gutters. Approximately 5 cc of stimulant beads impregnated with vancomycin gentamicin w ere then placed throughout the wound. 15 round COMFORT drain inserted. The incision was then closed with 1 Vicryl to fascia 2-0 Vicryl subcutaneously and 4 Monocryl for final skin closure. Steri-Strip sterile dressing was placed. Patient waken taken to PACU stable condition. Please note anger was present at the procedure and all the patient positioning complex portions of the surgery and final skin closure. Lastly spinal cord monitoring was utilized at the procedure no changes noted. I attest to the content of the Intraoperative Record and any orders documented therein. Any exceptions are noted below.
[2020-10-02] MEDS: fentaNYL citrate 100 MCG/2 ML VIAL IV PRN ×4 (14:56→15:11)
[2020-10-02] MEDS: HYDROmorphone INJ 1 MG/ML SYRINGE IV PRN ×3 (15:16→21:01)
[2020-10-02] MEDS ORDERED: HYDROmorphone INJ 0.5 MG/0.5 ML SYR IV PRN ×2 (15:20→18:48)
--- NOTE | 2020-10-02 15:26 | Fluoroscopy Report ---
FL lumbar spine 2-3V HISTORY: 70 years-old Female L1-S1 DEMPRESSION, T12-S1 FUSION, POSSIBLE ILIAC BOLTS COMPARISON: None TECHNIQUE: 4 spot fluoroscopic views of the lumbar spine were obtained utilizing 73.8 seconds fluoros copy time FINDINGS: Posterior interbody kathryn and screw fusion hardware at what is labeled the T12-S1 levels. There is appa rent anterolisthesis L1 on L2. The hardware appears intact. No unexpected retained opaque foreign bod y identified. IMPRESSION: Fluoroscopic assistance as above. ACT 112: Negative or not required by law. The above report was generated using voice recognition software. It may contain grammatical, syntax o r spelling errors. Electronically signed by: Yasmani Cespedes M.D. 10/02/2020 3:25 PM
--- NOTE | 2020-10-02 15:43 | Anesthesiology Progress Note ---
Date of Service October 02, 2020 Anesthesia Post Procedure Vital Signs Vital Signs: Temp Pulse Pulse Resp BP BP Pulse Ox 10/02/20 15:35 80 20 152/70 H 99 10/02/20 15:25 36.9 C 77 21 147/62 H 99 10/02/20 15:15 87 15 191/69 H 98 10/02/20 15:05 76 15 186/84 H 99 10/02/20 14:55 79 24 157/106 H 99 10/02/20 14:45 78 24 162/70 H 99 10/02/20 14:37 36.7 C 82 18 171/78 H 99 10/02/20 08:42 36.9 C 81 20 135/116 H 194/89 H 99 Pain Intensity Right Back: Pain Intensity: 3 Transfer of Care Handoff Completed per policy Notes Mental Status: alert / awake / arousable Patient Amnestic to Procedure: Yes Nausea / Vomiting: adequately controlled Pain: adequately controlled Airway Patency, RR, SpO2: stable & adequate BP & HR: stable & adequate Hydration State: stable & adequate Anesthetic Complications: no major complications apparent and Pt Satisfied with anesthetic care
[2020-10-02] MEDS ORDERED: ONDANSETRON 4 MG OD TAB PO PRN (18:48)
[2020-10-02] MEDS ORDERED: DO NOT ADMINISTER PNEUMOCOCCAL VACCINE PRN (18:48)
[2020-10-02] MEDS ORDERED: DO NOT ADMINISTER FLU VACCINE PRN (18:48)
[2020-10-02] MEDS ORDERED: MAGNESIUM HYDROXIDE SUSP 30 ML UDC PO PRN (18:48)
[2020-10-02] MEDS ORDERED: NALOXONE HCL 0.4 MG/1 ML VIAL/CARP IV PRN (18:48)
[2020-10-02] MEDS ORDERED: SOD PHOSPHATE/SOD BIPHOSPHATE ENEMA 132 ML BTL PR PRN (18:48)
[2020-10-02] MEDS ORDERED: METOCLOPRAMIDE HCL INJ 5 MG/ML 2 ML VIAL IV PRN (18:48)
[2020-10-02] MEDS ORDERED: diphenhydrAMINE Capsule 25 MG CAP PO PRN (18:48)
[2020-10-02] MEDS ORDERED: PROMETHAZINE HCL 12.5 MG in SODIUM CHLORIDE 0.9% 50 ML IV PRN (18:48)
[2020-10-02] MEDS ORDERED: hydrOXYzine HCl 25 MG TAB PO PRN (18:48)
[2020-10-02] MEDS ORDERED: LORazepam 0.5 MG TAB PO PRN (18:48)
[2020-10-02] MEDS ORDERED: FAMOTIDINE 20 MG TAB PO PRN (18:48)
[2020-10-02] MEDS ORDERED: traMADol HCL 50 MG TABLET PO PRN (18:48)
[2020-10-02] MEDS ORDERED: bisacodyL 10 MG SUPP PR PRN (18:48)
[2020-10-02] MEDS ORDERED: predniSONE 1 MG TAB PO SCH (21:00)
[2020-10-02] MEDS ORDERED: NON-FORMULARY MEDICATION (Cranberry 500 mg Capsule) PO SCH (21:00)
[2020-10-02] MEDS ORDERED: METOPROLOL TARTRATE 25 MG TAB PO SCH (21:00)
[2020-10-02] MEDS: ONDANSETRON INJ 2 MG/ML 2 ML VIAL IV PRN (21:01)
[2020-10-02] MEDS: ACETAMINOPHEN 1,000 MG/100 ML VIAL IV PRN (21:02)
[2020-10-02] MEDS: SODIUM CHLORIDE 0.9% 1000ML 1,000 ML IV SCH (21:02)
[2020-10-02] MEDS: ceFAZolin 1000MG 1,000 MG/7.5 ML SYR IV SCH (22:39)
[2020-10-02] MEDS: DOCUSATE SODIUM/SENNA 50/8.6MG TAB PO SCH (22:41)
[2020-10-02] MEDS: GABAPENTIN 300 MG CAP PO SCH (22:42)
[2020-10-02] MEDS: CALCIUM 600MG + VIT D 400 IU TAB PO SCH (22:42)
[2020-10-02] MEDS: METOPROLOL TARTRATE 25 MG TAB PO SCH (22:42)
[2020-10-02] MEDS: PANTOprazole 40 MG TAB PO SCH (22:43)
[2020-10-02] MEDS: SENNA 8.6 MG TAB PO SCH (22:44)
[2020-10-02] MEDS: OXYBUTYNIN CHLORIDE 5 MG TAB PO SCH (22:44)
[2020-10-03] MEDS: HYDROmorphone INJ 1 MG/ML SYRINGE IV PRN ×6 (01:33→19:53)
[2020-10-03] MEDS: ceFAZolin 1000MG 1,000 MG/7.5 ML SYR IV SCH (04:17)
[2020-10-03] MEDS: ONDANSETRON INJ 2 MG/ML 2 ML VIAL IV PRN ×2 (04:26→16:26)
[2020-10-03] MEDS: ACETAMINOPHEN 1,000 MG/100 ML VIAL IV PRN ×2 (06:03→18:10)
[2020-10-03] MEDS: POLYETHYLENE (MIRALAX) 17 GM PACK PO SCH ×3 (06:03→18:11)
[2020-10-03 06:59] LABS: Basophils # (auto) 0.03 K/uL (0-0.2); Basophils % (auto) 0.4 %; Eosinophils # (auto) 0.14 K/uL (0-0.5); Eosinophils % (auto) 1.7 %; Hematocrit (blood only) 32.2 % (37-47); Hemoglobin 9.7 g/dL (12.0-16.0); Immature Granulocytes # (auto) 0.02 K/uL (0.00-0.02); Immature Granulocytes % (auto) 0.2 %; Lymphocytes # (auto) 1.59 K/uL (1.2-3.4); Lymphocytes % (auto) 19.4 %; Mean Corpuscular Hgb Conc 30.1 g/dL (32-36); Mean Corpuscular Volume 86.3 fL (80-100); Mean Platelet Volume 9.4 fL (7.4-10.4); Monocytes # (auto) 1.06 K/uL (0.11-0.59); Monocytes % (auto) 12.9 %; Neutrophils # (auto) 5.37 K/uL (1.4-6.5); Neutrophils % (auto) 65.4 %; Platelet Count 227 K/uL (130-400); RDW Coefficient of Variation 17.5 % (11.5-14.5); RDW Standard Deviation 55.6 fL (36.4-46.3); Red Blood Count 3.73 M/uL (4.2-5.4); White Blood Count 8.21 K/uL (4.8-10.8)
[2020-10-03] MEDS: SODIUM CHLORIDE 0.9% 1000ML 1,000 ML IV SCH ×2 (07:20→16:33)
[2020-10-03 07:28] LABS: Calcium 8.1 mg/dl (8.5-10.1); Creatinine Clr Calc Pharmacy 62.1 ml/min; Est GFR (African American) 101.8; Est GFR (Non-African American) 87.8
[2020-10-03] MEDS ORDERED: predniSONE 5 MG TAB PO SCH (09:00)
[2020-10-03] MEDS: CEROVITE ADV FORMULA TAB PO SCH (09:29)
[2020-10-03] MEDS: CALCIUM 600MG + VIT D 400 IU TAB PO SCH ×3 (09:29→20:03)
[2020-10-03] MEDS: ADVANCED PROBIOTIC 1250 MG CAPSULE PO SCH (09:29)
--- NOTE | 2020-10-03 10:35 | Orthopedic Progress Note ---
Date of Service October 03, 2020 Assessment & Plan (1) Neurogenic claudication due to lumbar spinal stenosis: Admission and Anticipated Discharge Date Admission Date: October 02, 2020 At this time we will initiate physical therapy when she is able to tolerate it. Monitor COMFORT output and pain control. Subjective Patient struggling with some nausea and vomiting this morning. Back pain is present but controlled. No leg pain. Physical Exam Physical Exam: On exam she is in bed this morning. She has good strength testing lower extremities. Results & Data ([facility]) Vital Signs (Past 12 Hours) Vital Signs Temp Pulse Resp BP Pulse Ox 10/03/20 07:59 36.8 C 86 18 159/64 H 100 10/03/20 03:50 36.8 C 78 18 165/77 H 99
[2020-10-03] MEDS: FAMOTIDINE 20 MG in SYRINGE 3 ML IV SCH ×2 (10:49→19:50)
[2020-10-03] MEDS: METOPROLOL TARTRATE 25 MG TAB PO SCH ×2 (10:54→19:51)
[2020-10-03] MEDS: OXYBUTYNIN CHLORIDE 5 MG TAB PO SCH ×3 (10:54→20:03)
[2020-10-03] MEDS: PANTOprazole 40 MG TAB PO SCH ×3 (10:54→20:03)
[2020-10-03] MEDS: LEFLUNOMIDE 10 MG TAB PO SCH (10:54)
[2020-10-03] MEDS: GABAPENTIN 300 MG CAP PO SCH ×4 (10:54→20:03)
[2020-10-03] MEDS: SUCRALFATE 1 GM/10 ML UDC PO SCH ×3 (11:16→19:51)
[2020-10-03] MEDS: LORazepam 0.5 MG/1 ML VIAL IV PRN (14:22)
--- NOTE | 2020-10-03 15:32 | Hospitalist Consultation ---
Date of Consultation October 03, 2020 Assessment & Plan (1) Lumbar stenosis: Postoperative day #1 after posterior lumbar internal fixation and instrumentation. Orthopedic management Present on Admission?: Yes (2) Steroid dependence: Long-term history of chronic steroid use. Parenteral hydrocortisone for now. Restart oral prednisone in 2 days Present on Admission?: Yes (3) Rheumatoid arthritis: She takes prednisone, hydroxychloroquine,leflunomide. Present on Admission?: Yes (4) Acute post-hemorrhagic anemia: Mild. Serial labs. Transfuse as needed Present on Admission?: No (5) Hypertension: Treated with metoprolol Present on Admission?: Yes (6) Chronic reflux esophagitis: H2 sandro, proton pump inhibitor, Carafate suspension Present on Admission?: Yes (7) PAF (paroxysmal atrial fibrillation): Metoprolol therapy. Eliquis is currently on hold. Telemetry Present on Admission?: Yes History of Present Illness Reason for Consultation: Medical management Requesting Physician: Dr. Drew Sanford Attending Physician: Golden Sanford, DO History of Present Illness 70-year-old female with lumbar stenosis who underwent posterior lumbar internal fixation with instrumentation. Postoperative day #1. Apparently she is steroid-dependent with rheumatoid arthritis and also takes Plaquenil and leflunomide which is a DMARD. She has some persistent postoperative nausea and this could be due to a mild degree of adrenal insufficiency. She is not hypotensive. Parenteral hydrocortisone ordered. This can be switched to oral prednisone in 48 hours. She also has acid reflux symptoms and known GERD with chronic esophagitis. She is on famotidine, proton pump inhibitor, Carafate suspension. Mild acute blood loss anemia noted. No transfusion needed at this time. She has a history of hypertension and SVT and currently is on metoprolol and telemetry. Apparently she also takes Eliquis and this can be restarted as soon as possible when cleared by orthopedic surgery. Allergies Allergy/AdvReac Type Severity Reaction Status Date / Time dalbavancin Allergy Severe hypotension, Verified 10/02/20 08:33 flushing, tachypnea Home Medications Medication Instructions Recorded Confirmed Type Probiotic 3,000 mmu cells PO QAM 03/30/18 10/02/20 History prednisone 1 mg PO QPM 03/30/18 10/02/20 History prednisone 5 mg PO QAM 03/30/18 10/02/20 History cranberry 500 mg PO QPM 09/29/18 10/02/20 History omeprazole 20 mg PO BID 09/29/18 10/02/20 History Macuvite Eye Care 1 tab PO QAM 10/08/18 10/02/20 History leg brace #1 ea 02/10/19 09/25/20 Rx sennosides [Senokot] 17.2 mg PO HS 08/11/19 10/02/20 History calcitriol [Rocaltrol] 0.5 mcg PO 2XWK 02/21/20 10/02/20 History docusate sodium 100 mg PO HS PRN 02/21/20 10/02/20 History hydroxychloroquine 200 mg tablet 200 mg PO BID 03/27/20 10/02/20 History leflunomide 20 mg tablet 20 mg PO DAILY 03/27/20 10/02/20 History lidocaine 5 % topical patch 1 patch TOPICAL DAILY PRN ea 03/27/20 10/02/20 Hist ory metoprolol tartrate 25 mg tablet 12.5 mg PO BID #90 tab 07/09/20 10/02/20 Rx oxybutynin chloride 5 mg tablet 5 mg PO BID #180 tab 07/09/20 10/02/20 Rx Calcium 600 + D(3) 1 cap PO BID 07/16/20 10/02/20 History gabapentin 300 mg PO TID 07/16/20 10/02/20 History hydrocodone-acetaminophen 1 tab PO Q6 PRN 07/16/20 10/02/20 History apixaban 5 mg tablet 5 mg PO BID #180 tab 07/25/20 10/02/20 Rx Patient History Medical History (Updated 10/03/20 @ 15:30 by David Hudson MD) Anemia follows with Dr. Thibodeaux, s/p IV iron infusions No recent iron infusion Chronic back pain DDD (degenerative disc disease) GERD (gastroesophageal reflux disease) controlled History of COVID-19 hospitalized 07/16/20 [facility]. hypoxia, fever, cough, chills, loss of taste/smell. pt reports taste/smell still not fully back to normal. History of Hodgkin's lymphoma 2003/under surveillance by PCP/Dr. Thibodeaux- S/p chemo in 2003- none since History of oral cancer s/p tongue excision left side (no chemo/no XRT 2013) No issues since Hypertension Overactive bladder PAF (paroxysmal atrial fibrillation) hx - on Eliquis Paroxysmal SVT (supraventricular tachycardia) hx (follows with Dr. Vance) RA (rheumatoid arthritis) on chronic steroid Skin benign neoplasm Vertigo No current issues Surgical History H/O foot surgery TOES X MULTIPLE H/O parathyroidectomy History of biopsy Of soft tissue of the neck History of breast surgery Puncture aspiration of cyst History of carpal tunnel release RIGHT History of colonoscopy History of colposcopy with cervical biopsy with endocervical curettage History of glossectomy with unilateral radical neck dissection History of hip surgery R/L REVISION Left MAURO revision: 11/09/18: SABx1 at L3-L4 at [facility] History of total hip arthroplasty R/L History of total knee replacement R/L History of tubal ligation Hx of hand surgery RIGHT Hx of knee surgery most recent 02/28/2020 [facility] Right TKA revision, I&D, antibiotic spacer: 12/29/19: SAB + PNB at [facility] S/P revision of total knee 12/29/19 Dr. Ihsan Vela- Right total knee revision, Incision and drainage with antibiotic cement spacer Family History Mother Breast cancer Colorectal cancer Cancer Gastric cancer Aunt Colorectal cancer Other Family history non-contributory Denies family history of Ovarian cancer Prostate cancer Myocardial infarction Social History Smoking Status: Never smoker Second Hand Exposure: No; Do You Dip or Chew Tobacco: No; Hx Alcohol Use: No Hx Substance Use: No Preferred Language: Chadian Communication Ability: Effective Visual Impairment: Limited 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: Normal System Auditor Required: No Beliefs That Will Affect Care: None marital status: Current Living Situation: Spouse current occupational status: retired Feels Safe at Home: Yes Safety Concerns: Feels Safe At This Time Childhood Exposure to Second-Hand Smoke: Yes caffeine: Yes Dental Care, Regularly: Yes Physical Activity Frequency: Other Physical Activity Frequency Comment: Limited by a physical condition Seatbelt Use: always Sunscreen Use: Yes Assistive Devices: Walker Review of Systems Review of Systems: All systems reviewed & are unremarkable except as noted in HPI & below Physical Exam Physical Exam: General-alert and oriented x3, no fevers, no chills HEENT-head atraumatic and normocephalic, TMs intact bilaterally, pupils equal and reactive to light, extraocular muscles intact Neck-no lymphadenopathy or thyromegaly, trachea midline Chest-clear to auscultation percussion. No rales wheezing or rhonchi Cardiac-regular rate and rhythm, normal S1 and S2, no murmurs Abdomen-normal bowel sounds, nontender, no hepatosplenomegaly. Nausea noted Extremities-no cyanosis, clubbing, or edema Neuro-cranial nerves II through XII intact, motor and sensory function within normal limits, strength symmetrical , no focal deficits Psych-normal affect, normal mood Results & Data Results & Data ([facility]) Vital Signs (Past 12 Hours) Vital Signs Temp Pulse Resp BP Pulse Ox 10/03/20 14:02 99 10/03/20 13:05 37.1 C 90 18 146/73 H 100 10/03/20 07:59 36.8 C 86 18 159/64 H 100 10/03/20 03:50 36.8 C 78 18 165/77 H 99 Laboratory Results 10/03/20 06:36 10/03/20 06:36 PG Care Time/CCT Total # of Minutes Spent Total Time Spent with Patient: Total time spent is greater than 50% in coordination of care (as documented) at patient's floor/unit and/or counseling patient: Coding Level of Care Code 27641 Inpt Consult Level 5 Diagnoses Lumbar stenosis M48.061 Steroid dependence F19.20 Rheumatoid arthritis M06.9 Acute post-hemorrhagic anemia D62 Hypertension I10 Chronic reflux esophagitis K21.0 PAF (paroxysmal atrial fibrillation) I48.0
[2020-10-03] MEDS: HYDROCORTISONE SOD 50 MG in SYRINGE 0 ML IV SCH ×2 (16:17→23:10)
[2020-10-03] MEDS: METOCLOPRAMIDE HCL INJ 5 MG/ML 2 ML VIAL IV SCH ×2 (18:11→23:10)
[2020-10-03] MEDS: DOCUSATE SODIUM/SENNA 50/8.6MG TAB PO SCH (19:53)
[2020-10-03] MEDS: SENNA 8.6 MG TAB PO SCH ×2 (19:53→20:03)
[2020-10-03] MEDS: ALUMINUM/MAGNESIUM SUSP 30 ML UDC PO PRN (23:18)
[2020-10-04] MEDS: POLYETHYLENE (MIRALAX) 17 GM PACK PO SCH ×5 (00:03→23:26)
[2020-10-04] MEDS: LORazepam 0.5 MG/1 ML VIAL IV PRN (01:33)
[2020-10-04] MEDS: SODIUM CHLORIDE 0.9% 1000ML 1,000 ML IV SCH ×3 (01:33→22:09)
[2020-10-04] MEDS: METOCLOPRAMIDE HCL INJ 5 MG/ML 2 ML VIAL IV SCH ×4 (05:32→23:26)
[2020-10-04] MEDS: ONDANSETRON INJ 2 MG/ML 2 ML VIAL IV PRN (06:33)
[2020-10-04] MEDS: HYDROmorphone INJ 1 MG/ML SYRINGE IV PRN ×3 (07:19→13:27)
[2020-10-04] MEDS: HYDROCORTISONE SOD 50 MG in SYRINGE 0 ML IV SCH ×3 (07:19→23:26)
[2020-10-04] MEDS: SUCRALFATE 1 GM/10 ML UDC PO SCH ×4 (07:25→21:03)
[2020-10-04 07:35] LABS: Basophils # (auto) 0.02 K/uL (0-0.2); Basophils % (auto) 0.2 %; Eosinophils # (auto) 0.01 K/uL (0-0.5); Eosinophils % (auto) 0.1 %; Hematocrit (blood only) 32.3 % (37-47); Immature Granulocytes # (auto) 0.04 K/uL (0.00-0.02); Immature Granulocytes % (auto) 0.3 %; Lymphocytes # (auto) 1.36 K/uL (1.2-3.4); Lymphocytes % (auto) 11.5 %; Mean Corpuscular Hemoglobin 26.1 pg (25-34); Mean Corpuscular Volume 84.3 fL (80-100); Mean Platelet Volume 9.4 fL (7.4-10.4); Monocytes # (auto) 1.23 K/uL (0.11-0.59); Monocytes % (auto) 10.4 %; Neutrophils # (auto) 9.18 K/uL (1.4-6.5); Neutrophils % (auto) 77.5 %; Platelet Count 260 K/uL (130-400); RDW Coefficient of Variation 17.1 % (11.5-14.5); RDW Standard Deviation 52.9 fL (36.4-46.3); Red Blood Count 3.83 M/uL (4.2-5.4); White Blood Count 11.84 K/uL (4.8-10.8)
[2020-10-04 08:06] LABS: BUN Creatinine Ratio 14.1 (10-20); Calcium 8.7 mg/dl (8.5-10.1); Creatinine Clr Calc Pharmacy 81.6 ml/min; Est GFR (African American) 111.3; Est GFR (Non-African American) 96.1; Potassium 3.5 mmol/L (3.5-5.1)
--- NOTE | 2020-10-04 08:27 | Orthopedic Progress Note ---
Date of Service October 04, 2020 Assessment & Plan (1) Neurogenic claudication due to lumbar spinal stenosis: Admission and Anticipated Discharge Date Admission Date: October 02, 2020 This time will hopefully initiate more advanced physical therapy today. We will see how she progresses next few days and ultimately would be an excellent candidate for rehab. Subjective Patient's abdominal discomfort has improved. She is going to attempt some light foods today. She has no leg pain. Back pain is controlled. Physical Exam Physical Exam: On exam her abdomen is soft nontender. She has good strength testing lower extremities. Results & Data ([facility]) Vital Signs (Past 12 Hours) Vital Signs Temp Pulse Resp BP Pulse Ox 10/04/20 07:59 37.1 C 96 H 18 155/67 H 99 10/03/20 23:23 90 16 161/78 H 98 10/03/20 23:12 37.1 C 90 16 99
[2020-10-04] MEDS: METOPROLOL TARTRATE 25 MG TAB PO SCH ×2 (08:30→21:03)
[2020-10-04] MEDS: FAMOTIDINE 20 MG in SYRINGE 3 ML IV SCH ×2 (08:31→21:05)
[2020-10-04] MEDS: CEROVITE ADV FORMULA TAB PO SCH (08:36)
[2020-10-04] MEDS: OXYBUTYNIN CHLORIDE 5 MG TAB PO SCH ×2 (08:36→21:04)
[2020-10-04] MEDS: CALCIUM 600MG + VIT D 400 IU TAB PO SCH ×2 (08:36→21:03)
[2020-10-04] MEDS: GABAPENTIN 300 MG CAP PO SCH ×3 (08:36→21:04)
[2020-10-04] MEDS: LEFLUNOMIDE 10 MG TAB PO SCH (08:36)
[2020-10-04] MEDS: ADVANCED PROBIOTIC 1250 MG CAPSULE PO SCH (08:36)
[2020-10-04] MEDS: PANTOprazole 40 MG TAB PO SCH ×2 (08:37→21:04)
[2020-10-04] MEDS ORDERED: METOPROLOL TARTRATE 25 MG TAB PO ONE (11:15)
[2020-10-04] MEDS: ACETAMINOPHEN 500 MG TAB PO PRN (12:25)
--- NOTE | 2020-10-04 14:12 | Hospitalist Progress Note ---
Date of Service October 04, 2020 Assessment & Plan (1) Lumbar stenosis: Postoperative day #2 after posterior lumbar internal fixation and instrumentation. Orthopedic management (2) Steroid dependence: Long-term history of chronic steroid use. Parenteral hydrocortisone for now. Restart oral prednisone tomorrow, October 05. She normally takes prednisone 5 mg in the morning and 1 mg in the evening. (3) Rheumatoid arthritis: She takes prednisone, hydroxychloroquine,leflunomide. (4) Acute post-hemorrhagic anemia: Mild. Serial labs. Transfuse as needed (5) Hypertension: Treated with metoprolol (6) Chronic reflux esophagitis: H2 sandro, proton pump inhibitor, Carafate suspension (7) PAF (paroxysmal atrial fibrillation): Metoprolol therapy. Eliquis is currently on hold. Restart Eliquis when cleared by orthopedic surgery. Telemetry Disposition: Rehab placement at discharge per primary service Admission and Anticipated Discharge Date Admission Date: October 02, 2020 Subjective Alert and sitting up in a chair. She looks better. Nausea has lessened. She understands she is receiving steroids intravenously for another day before switching back to prednisone tomorrow. She takes prednisone 5 mg in the morning and 1 mg in the evening usually. Postoperative day #2. Hemoglobin is stable. Review of Systems Review of Systems: All systems reviewed & are unremarkable except as noted in HPI & below Physical Exam Physical Exam: General-alert and oriented x3, no fevers, no chills HEENT-head atraumatic and normocephalic, TMs intact bilaterally, pupils equal and reactive to light, extraocular muscles intact Neck-no lymphadenopathy or thyromegaly, trachea midline Chest-clear to auscultation percussion. No rales wheezing or rhonchi Cardiac-regular rate and rhythm, normal S1 and S2, no murmurs Abdomen-normal bowel sounds, nontender, no hepatosplenomegaly Extremities-no cyanosis, clubbing, or edema Neuro-cranial nerves II through XII intact, motor and sensory function within normal limits, strength symmetrical , no focal deficits Psych-normal affect, normal mood Results & Data Results & Data ([facility]) Vital Signs (Past 12 Hours) Vital Signs Temp Pulse Resp BP BP Pulse Ox 10/04/20 12:19 90 156/76 H 10/04/20 07:59 37.1 C 96 H 18 155/67 H 99 Laboratory Results 10/04/20 07:05 10/04/20 07:05 PG Care Time/CCT Total # of Minutes Spent Total Time Spent with Patient: Total time spent is greater than 50% in coordination of care (as documented) at patient's floor/unit and/or counseling patient: Coding Level of Care Code 78677 Subseq Hosp Care Lvl 3 Diagnoses Lumbar stenosis M48.061 Steroid dependence F19.20 Rheumatoid arthritis M06.9 Acute post-hemorrhagic anemia D62 Hypertension I10 Chronic reflux esophagitis K21.0 PAF (paroxysmal atrial fibrillation) I48.0
[2020-10-04] MEDS: oxyCODONE HCL IR 5 MG TAB (IMMEDIATE RELEASE) PO PRN (15:31)
[2020-10-04] MEDS: DOCUSATE SODIUM/SENNA 50/8.6MG TAB PO SCH (21:04)
[2020-10-04] MEDS: SENNA 8.6 MG TAB PO SCH (21:05)
[2020-10-05] MEDS: HYDROmorphone INJ 1 MG/ML SYRINGE IV PRN ×2 (03:33→09:28)
[2020-10-05 05:33] LABS: Basophils # (auto) 0.01 K/uL (0-0.2); Basophils % (auto) 0.1 %; Eosinophils # (auto) 0.01 K/uL (0-0.5); Eosinophils % (auto) 0.1 %; Hematocrit (blood only) 27.7 % (37-47); Hemoglobin 8.7 g/dL (12.0-16.0); Immature Granulocytes # (auto) 0.03 K/uL (0.00-0.02); Immature Granulocytes % (auto) 0.3 %; Lymphocytes # (auto) 0.92 K/uL (1.2-3.4); Lymphocytes % (auto) 10.3 %; Mean Corpuscular Hemoglobin 26.5 pg (25-34); Mean Corpuscular Hgb Conc 31.4 g/dL (32-36); Mean Corpuscular Volume 84.5 fL (80-100); Mean Platelet Volume 9.4 fL (7.4-10.4); Monocytes # (auto) 0.94 K/uL (0.11-0.59); Monocytes % (auto) 10.5 %; Neutrophils # (auto) 7.01 K/uL (1.4-6.5); Neutrophils % (auto) 78.7 %; Platelet Count 225 K/uL (130-400); RDW Coefficient of Variation 16.9 % (11.5-14.5); RDW Standard Deviation 52.3 fL (36.4-46.3); Red Blood Count 3.28 M/uL (4.2-5.4); White Blood Count 8.92 K/uL (4.8-10.8)
[2020-10-05] MEDS: POLYETHYLENE (MIRALAX) 17 GM PACK PO SCH ×4 (05:35→23:17)
[2020-10-05] MEDS: METOCLOPRAMIDE HCL INJ 5 MG/ML 2 ML VIAL IV SCH (05:35)
[2020-10-05 06:01] LABS: BUN Creatinine Ratio 24.7 (10-20); Calcium 8.1 mg/dl (8.5-10.1); Creatinine Clr Calc Pharmacy 106.7 ml/min; Est GFR (African American) 121.6; Est GFR (Non-African American) 104.9; Potassium 3.6 mmol/L (3.5-5.1)
[2020-10-05] MEDS: oxyCODONE HCL IR 5 MG TAB (IMMEDIATE RELEASE) PO PRN ×3 (06:45→20:01)
[2020-10-05] MEDS: HYDROCORTISONE SOD 50 MG in SYRINGE 0 ML IV SCH (08:24)
[2020-10-05] MEDS: CALCIUM 600MG + VIT D 400 IU TAB PO SCH ×2 (08:24→20:04)
[2020-10-05] MEDS: PANTOprazole 40 MG TAB PO SCH ×2 (08:24→20:07)
[2020-10-05] MEDS: LEFLUNOMIDE 10 MG TAB PO SCH (08:24)
[2020-10-05] MEDS: METOPROLOL TARTRATE 25 MG TAB PO SCH (08:24)
[2020-10-05] MEDS: SUCRALFATE 1 GM/10 ML UDC PO SCH (08:24)
[2020-10-05] MEDS: CEROVITE ADV FORMULA TAB PO SCH (08:24)
[2020-10-05] MEDS: CALCITRIOL 0.25 MCG CAPSULE PO SCH (08:24)
[2020-10-05] MEDS: ADVANCED PROBIOTIC 1250 MG CAPSULE PO SCH (08:25)
[2020-10-05] MEDS: GABAPENTIN 300 MG CAP PO SCH ×3 (08:25→20:05)
[2020-10-05] MEDS: OXYBUTYNIN CHLORIDE 5 MG TAB PO SCH ×2 (08:26→20:03)
[2020-10-05] MEDS: FAMOTIDINE 20 MG in SYRINGE 3 ML IV SCH ×2 (08:35→21:26)
[2020-10-05] MEDS: SODIUM CHLORIDE 0.9% 1000ML 1,000 ML IV SCH ×3 (09:29→19:47)
[2020-10-05] MEDS ORDERED: METOPROLOL TARTRATE 25 MG TAB PO STA (09:32)
[2020-10-05] MEDS ORDERED: Nursing to Pharmacy Communication SCH (10:45)
[2020-10-05] MEDS ORDERED: APIXABAN 5 MG TABLET PO ONE (11:00)
--- NOTE | 2020-10-05 13:07 | Orthopedic Progress Note ---
Date of Service October 05, 2020 Assessment & Plan (1) Neurogenic claudication due to lumbar spinal stenosis: Admission and Anticipated Discharge Date Admission Date: October 02, 2020 Deepak still going to encourage her to begin transitions to a chair and stand and ambulate as tolerated. If her symptoms persist I may need to consider a CAT scan of the lumbar spine with attention to the sacrum and rule out migration of hardware or sacral insufficiency fractures. We will see how she progresses over the next 24 to 48 hours. Subjective Patient struggling with lumbosacral back pain today. This seems to be exac erbated with transitions. She has no leg pain. Her abdominal pain is improved. Physical Exam Physical Exam: Patient does have excellent strength testing to the lower extremities. She has tenderness palpation of the lumbosacral junction in the upper buttocks bilaterally. Results & Data ([facility]) Vital Signs (Past 12 Hours) Vital Signs Temp Pulse Resp BP BP Pulse Ox 10/05/20 11:17 37.4 C 91 H 18 136/70 95 10/05/20 07:27 37.1 C 94 H 18 165/73 H 92 10/05/20 06:36 37.4 C 99 H 16 182/78 H 93
--- NOTE | 2020-10-05 13:44 | Hospitalist Progress Note ---
Date of Service October 05, 2020 Assessment & Plan (1) Lumbar stenosis: Postoperative day #3 after posterior lumbar internal fixation and instrumentation. Orthopedic management (2) Steroid dependence: Long-term history of chronic steroid use. Parenteral hydrocortisone switch back to her usual oral dosing today, October 05. She normally takes prednisone 5 mg in the morning and 1 mg in the evening. (3) Rheumatoid arthritis: She takes prednisone, hydroxychloroquine, leflunomide. (4) Acute post-hemorrhagic anemia: Mild. Serial labs. Transfuse as needed (5) Hypertension: Treated with metoprolol. Metoprolol dosage uptitrated today, October 05 (6) Chronic reflux esophagitis: Treated with H2 sandro, proton pump inhibitor, Carafate suspension. Carafate suspension discontinued today, October 05 (7) PAF (paroxysmal atrial fibrillation): Metoprolol therapy uptitrated again today, October 05. Eliquis will be restarted today, October 05, if okay with orthopedic surgery. Telemetry Disposition: Rehab placement at discharge per primary service Admission and Anticipated Discharge Date Admission Date: October 02, 2020 Subjective Alert and pleasant. Nausea has resolved. Reglan and Carafate suspension discontinued. We will switch parenteral steroids to oral dosing today. Metoprolol uptitrated again for better heart rate and blood pressure control. Will restart Eliquis today if okay with orthopedic surgery. Postoperative day #3. Mild postoperative blood loss anemia with hemoglobin 8.7. Review of Systems Review of Systems: All systems reviewed & are unremarkable except as noted in HPI & below Physical Exam Physical Exam: General-alert and oriented x3, no fevers, no chills HEENT-head atraumatic and normocephalic, pupils equal and reactive to light, extraocular muscles intact Neck-no lymphadenopathy or thyromegaly, trachea midline Chest-clear to auscultation percussion. No rales wheezing or rhonchi Cardiac-regular rate and rhythm, normal S1 and S2 Abdomen-normal bowel sounds, nontender, no hepatosplenomegaly Extremities-no cyanosis, clubbing, or edema Neuro-cranial nerves II through XII intact, motor and sensory function within normal limits, strength symmetrical , no focal deficits Psych-normal affect, normal mood Results & Data Results & Data ([facility]) Vital Signs (Past 12 Hours) Vital Signs Temp Pulse Resp BP BP Pulse Ox 10/05/20 11:17 37.4 C 91 H 18 136/70 95 10/05/20 07:27 37.1 C 94 H 18 165/73 H 92 10/05/20 06:36 37.4 C 99 H 16 182/78 H 93 Laboratory Results 10/05/20 05:13 10/05/20 05:13 PG Care Time/CCT Total # of Minutes Spent Total Time Spent with Patient: Total time spent is greater than 50% in coordination of care (as documented) at patient's floor/unit and/or counseling patient: Coding Level of Care Code 50134 Subseq Hosp Care Lvl 3 Diagnoses Lumbar stenosis M48.061 Steroid dependence F19.20 Rheumatoid arthritis M06.9 Acute post-hemorrhagic anemia D62 Hypertension I10 Chronic reflux esophagitis K21.0 PAF (paroxysmal atrial fibrillation) I48.0
[2020-10-05] MEDS: APIXABAN 5 MG TABLET PO SCH (20:03)
[2020-10-05] MEDS: METOPROLOL TARTRATE 50 MG TAB PO SCH (20:04)
[2020-10-05] MEDS: predniSONE 1 MG TAB PO SCH (20:06)
[2020-10-05] MEDS: SENNA 8.6 MG TAB PO SCH (20:06)
[2020-10-05] MEDS: DOCUSATE SODIUM/SENNA 50/8.6MG TAB PO SCH (20:16)
[2020-10-06] MEDS: POLYETHYLENE (MIRALAX) 17 GM PACK PO SCH ×4 (05:27→22:45)
[2020-10-06] MEDS: ALUMINUM/MAGNESIUM SUSP 30 ML UDC PO PRN (05:37)
[2020-10-06 08:04] LABS: Basophils # (auto) 0.03 K/uL (0-0.2); Basophils % (auto) 0.4 %; Eosinophils # (auto) 0.15 K/uL (0-0.5); Eosinophils % (auto) 1.8 %; Hematocrit (blood only) 27.3 % (37-47); Hemoglobin 8.5 g/dL (12.0-16.0); Immature Granulocytes # (auto) 0.06 K/uL (0.00-0.02); Immature Granulocytes % (auto) 0.7 %; Lymphocytes # (auto) 1.98 K/uL (1.2-3.4); Lymphocytes % (auto) 23.6 %; Mean Corpuscular Hemoglobin 26.3 pg (25-34); Mean Corpuscular Hgb Conc 31.1 g/dL (32-36); Mean Corpuscular Volume 84.5 fL (80-100); Mean Platelet Volume 9.2 fL (7.4-10.4); Monocytes # (auto) 1.25 K/uL (0.11-0.59); Monocytes % (auto) 14.9 %; Neutrophils # (auto) 4.91 K/uL (1.4-6.5); Neutrophils % (auto) 58.6 %; Platelet Count 236 K/uL (130-400); RDW Coefficient of Variation 16.9 % (11.5-14.5); RDW Standard Deviation 52.1 fL (36.4-46.3); Red Blood Count 3.23 M/uL (4.2-5.4); White Blood Count 8.38 K/uL (4.8-10.8)
[2020-10-06] MEDS: FAMOTIDINE 20 MG in SYRINGE 3 ML IV SCH ×2 (08:27→21:22)
[2020-10-06] MEDS: SODIUM CHLORIDE 0.9% 1000ML 1,000 ML IV SCH ×2 (08:30→16:37)
[2020-10-06] MEDS: ADVANCED PROBIOTIC 1250 MG CAPSULE PO SCH (08:31)
[2020-10-06] MEDS: PANTOprazole 40 MG TAB PO SCH ×2 (08:31→21:23)
[2020-10-06] MEDS: GABAPENTIN 300 MG CAP PO SCH ×3 (08:31→21:24)
[2020-10-06 08:32] LABS: BUN Creatinine Ratio 26.3 (10-20); Calcium 8.4 mg/dl (8.5-10.1); Creatinine Clr Calc Pharmacy 99.1 ml/min; Est GFR (African American) 118.7; Est GFR (Non-African American) 102.4
[2020-10-06] MEDS: APIXABAN 5 MG TABLET PO SCH ×2 (08:32→21:23)
[2020-10-06] MEDS: CEROVITE ADV FORMULA TAB PO SCH (08:33)
[2020-10-06] MEDS: CALCIUM 600MG + VIT D 400 IU TAB PO SCH ×2 (08:33→21:24)
[2020-10-06] MEDS: OXYBUTYNIN CHLORIDE 5 MG TAB PO SCH ×2 (08:33→21:23)
[2020-10-06] MEDS: predniSONE 5 MG TAB PO SCH (08:33)
[2020-10-06] MEDS: LEFLUNOMIDE 10 MG TAB PO SCH (08:33)
[2020-10-06] MEDS: METOPROLOL TARTRATE 50 MG TAB PO SCH ×2 (08:33→21:23)
[2020-10-06] MEDS: oxyCODONE HCL IR 5 MG TAB (IMMEDIATE RELEASE) PO PRN (08:36)
--- NOTE | 2020-10-06 08:41 | Orthopedic Progress Note ---
Date of Service October 06, 2020 Assessment & Plan (1) Neurogenic claudication due to lumbar spinal stenosis: Patient is postoperative day 4 T12-S1 decompression fusion. She is struggling a bit with some nausea and abdominal pain in addition to lower back pain. I will DC COMFORT drain. Order a KUB. Continue with pain control. Again per Dr. Sanford's note if lower back pain is quite severe and limiting would consider CT scan of lumbar spine and possible pelvis. Admission and Anticipated Discharge Date Admission Date: October 02, 2020 Supervising Physician Co-Signing Physician Notes Dr. Golden Sanford Subjective Patient is postoperative day 4 T12-S1 decompression fusion. This morning she has complaints of nausea and abdominal pain. She states she has had this throughout her postoperative course. Denies any vomiting. H&H are 8.5 and 27.3 respectively. COMFORT drain output is 10 cc. Eliquis has been restarted on 42. Back pain is moderate this morning Review of Systems Review of Systems: All systems reviewed & are unremarkable except as noted in HPI & below Physical Exam Physical Exam: Alert and oriented x3. Uncomfortable. Abdomen is soft and nondistended Lumbar dressing is clean dry and intact. Motor testing is 5 5 bilateral EHL, dorsiflexion, plantarflexion, quadriceps, hamstrings Calf soft nontender bilaterally. JAMAAL hose and SCDs intact bilaterally Constitutional: WD/WN, vitals as above Eyes: normal visual adrian by confrontation ENMT: external ear and nose normal, oropharynx normal Neck: normal visual inspection Respiratory: normal respiratory effort Cardiovascular: Extremities: normal capillary refill Chest (Breasts): Chest: normal inspection of chest Gastrointestinal (Abdomen): Inspection/Auscultation: abdomen normal to inspection Percussion/Palpation: abdomen soft Musculoskeletal: Extremities: extremities normal to inspection and strength 5/5 throughout Skin: no rashes, warm and dry Neurologic: normal touch/pain/proprioception and moves all extremities Psychiatric: A+Ox3, euthymic affect Results & Data ([facility]) Vital Signs (Past 12 Hours) Vital Signs Temp Pulse Resp BP BP Pulse Ox 10/06/20 07:48 36.7 C 101 H 18 183/77 H 91 10/05/20 22:23 36.9 C 102 H 14 152/71 H 92
[2020-10-06] MEDS: POTASSIUM CHLORIDE / WTR 10 MEQ/100 ML PLCT IV SCH ×3 (10:28→12:45)
[2020-10-06] MEDS ORDERED: dexAMETHasone 6 MG in SYRINGE 0 ML IV ONE (10:30)
--- NOTE | 2020-10-06 12:12 | XRay Report ---
XR KUB/Abdomen 1 view CLINICAL HISTORY: nausea/abd pain COMPARISON STUDY: No previous studies for comparison. FINDINGS: There is no pathologic bowel dilatation. There are postsurgical changes of a thoracolumbar spinal fusion with pedicle screws and rods and bone graft material. There are bilateral hip arthropla sties. A surgical drain is present overlying the right lower quadrant and spine IMPRESSION: 1. No evidence of pathologic bowel dilatation ACT 112: Negative or not required by law. Electronically signed by: Deacon May M.D. 10/06/2020 12:10 PM
[2020-10-06] MEDS: MAGNESIUM SULFATE / D5W 1 GM/100 ML BAG IV SCH ×2 (12:17→14:07)
[2020-10-06] MEDS ORDERED: bisacodyL 10 MG SUPP PR STA (14:01)
[2020-10-06] MEDS ORDERED: dexAMETHasone 4 MG in SYRINGE 0 ML IV ONE (18:45)
[2020-10-06 20:03] LABS: Appearance Urine Clear (Clear); Bacteria Urine Automated Negative (Negative); Bilirubin Urine Negative (Negative); Blood Urine Trace (Negative); Color Urine Yellow; Glucose Urine UA Negative (Negative); Ketones Urine Negative (Negative); Leukocyte Esterase Urine Negative (Negative); Nitrite Urine Negative (Negative); Protein Urine 1+ (Negative); RBC Urine Automated 0-4 /hpf (0-4); Specific Gravity Urine 1.016 (1.000-1.030); Urobilinogen Urine Negative (Negative); pH Urine 5.5 (4.5-7.5)
--- NOTE | 2020-10-06 20:10 | Hospitalist Progress Note ---
Date of Service October 06, 2020 Assessment & Plan (1) Constipation due to opioid therapy: KUB x-ray reviewed; no ileus; no SBO. copious stool. already on miralax q6h. dulcolax suppos x 1 now. re-eval tomorrow. (2) Hypokalemia: replace repeat BMP am replete low mag as well repeat mag in am (3) Hypomagnesemia: replete IV today repeat mag level am (4) Steroid dependence: Long-term history of chronic steroid use. She normally takes prednisone 5 mg in the morning and 1 mg in the evening. This is for long-standing RA. I checked with pharmacy - she has not received IV dexamethasone or hydrocortisone this admission. Thus, some of her nausea/weakness/etc could be "addisonian" in nature. Give 6mg decadron now, then 4mg tonight at HS, then 4mg BID starting in am - followed by taper, and ultimately resumption of normal prednisone daily dosing. Steroids may help back pain as well. (5) Lumbar stenosis: Postoperative day #4 -- T12-S1 lumbar decompression/fusion. Pain control, constipation, anorexia, nausea, etc persist. Care d/w Ms Hawthorne today. (6) Rheumatoid arthritis: She takes prednisone, hydroxychloroquine, leflunomide chronically. No active flare at this time. (7) Acute post-hemorrhagic anemia: Hb 11.3 early September. Now 8.5. Once constipation improves will start Fe supplementation. CBC am. (8) Hypertension: Uncontrolled despite titration of metoprolol. Suspect pain is contributing to elevations. Follow. (9) Chronic reflux esophagitis: Continue PPI. Remains on IV H2 sandro as well. (10) PAF (paroxysmal atrial fibrillation): EKG obtained today due to irregularity on exam. NSR on EKG. No PAF. Eliquis was resumed 10/05 after approval by ortho. Continue metoprolol. Admission and Anticipated Discharge Date Admission Date: October 02, 2020 Subjective patient continues with poor appetite. no BM since admission. passing flatus albeit small amounts. nausea remains; no vomiting. pain in back is severe - has not been out of bed today because of pain. c/o mild dizziness with sitting at side of bed. c/o thirst and dry mouth. has been on prednisone for decades for her RA. Review of Systems Constitutional: + fatigue, + weakness and + anorexia Respiratory: no dyspnea Cardiovascular: no chest pain Gastrointestinal: no abdominal pain Physical Exam Constitutional: + acute distress (spasms of back during the visit ) and + ill appearing; no altered mental status ENMT: Mouth: + dry oral mucous membranes Respiratory: normal respiratory effort, lungs clear to auscultation Cardiovascular: Rate/Rhythm: regular rhythm (with extra beats?) and + tachycardic Heart Sounds: normal S1 and normal S2 Vessels: posterior tibial pulses present and dorsalis pedis pulses present; no JVD Extremities: no edema Gastrointestinal (Abdomen): Inspection/Auscultation: + abdomen distended (mild) and normal bowel sounds Percussion/Palpation: abdomen nontender, no guarding and no hepatosplenomegaly Skin: + pallor Neurologic: moves all extremities; no focal motor deficits Psychiatric: Orientation: alert and oriented x 3 Results & Data Results & Data ([facility]) Vital Signs (Past 12 Hours) Vital Signs Temp Pulse Resp BP Pulse Ox 10/06/20 15:05 37.8 C H 92 H 18 162/85 H 90 Laboratory Results Laboratory Results - last 24 hr 10/06/20 10/06/20 10/06/20 07:45 07:45 07:45 WBC 8.38 RBC 3.23 L Hgb 8.5 L Hct 27.3 L MCV 84.5 MCH 26.3 MCHC 31.1 L RDW Std Deviation 52.1 H RDW Coeff of Jarvis 16.9 H Plt Count 236 MPV 9.2 Immature Gran % (Auto) 0.7 Neut % (Auto) 58.6 Lymph % (Auto) 23.6 Spink % (Auto) 14.9 Eos % (Auto) 1.8 Baso % (Auto) 0.4 Neut # (Auto) 4.91 Lymph # (Auto) 1.98 Spink # (Auto) 1.25 H Eos # (Auto) 0.15 Baso # (Auto) 0.03 Immature Gran # (Auto) 0.06 H Sodium 139 Potassium 3.0 L D Chloride 110 H Carbon Dioxide 22 Anion Gap 7.0 BUN 11 Creatinine 0.42 L Est Cr Clr Drug Dosing 99.1 Est GFR ( Amer) 118.7 Est GFR (Non-Af Amer) 102.4 BUN/Creatinine Ratio 26.3 H Glucose 81 Calcium 8.4 L Magnesium 1.6 L Urine Color Urine Appearance Urine pH Ur Specific [place] Urine Protein Urine Glucose (UA) Urine Ketones Urine Blood Urine Nitrite Urine Bilirubin Urine Urobilinogen Ur Leukocyte Esterase Urine WBC (Auto) Urine RBC (Auto) U Hyaline Cast (Auto) U Epithel Cells (Auto) Urine Bacteria (Auto) 10/06/20 19:43 WBC RBC Hgb Hct MCV MCH MCHC RDW Std Deviation RDW Coeff of Jarvis Plt Count MPV Immature Gran % (Auto) Neut % (Auto) Lymph % (Auto) Spink % (Auto) Eos % (Auto) Baso % (Auto) Neut # (Auto) Lymph # (Auto) Spink # (Auto) Eos # (Auto) Baso # (Auto) Immature Gran # (Auto) Sodium Potassium Chloride Carbon Dioxide Anion Gap BUN Creatinine Est Cr Clr Drug Dosing Est GFR ( Amer) Est GFR (Non-Af Amer) BUN/Creatinine Ratio Glucose Calcium Magnesium Urine Color Yellow Urine Appearance Clear Urine pH 5.5 Ur Specific [place] 1.016 Urine Protein 1+ H Urine Glucose (UA) Negative Urine Ketones Negative Urine Blood Trace H Urine Nitrite Negative Urine Bilirubin Negative Urine Urobilinogen Negative Ur Leukocyte Esterase Negative Urine WBC (Auto) 1-5 Urine RBC (Auto) 0-4 U Hyaline Cast (Auto) 1-5 U Epithel Cells (Auto) 5-10 H Urine Bacteria (Auto) Negative Diagnostic Findings KUB X-Ray 10/06/20 08:35 XR KUB/Abdomen 1 view CLINICAL HISTORY: nausea/abd pain COMPARISON STUDY: No previous studies for comparison. FINDINGS: There is no pathologic bowel dilatation. There are postsurgical changes of a thoracolumbar spinal fusion with pedicle screws and rods and bone graft material. There are bilateral hip arthroplasties. A surgical drain is present overlying the right lower quadrant and spine IMPRESSION: 1. No evidence of pathologic bowel dilatation ACT 112: Negative or not required by law. Electronically signed by: Deacon May M.D. 10/06/2020 12:10 PM PG Care Time/CCT Total # of Minutes Spent Total Time Spent with Patient: Total time spent is greater than 50% in coordination of care (as documented) at patient's floor/unit and/or counseling patient: Coding Level of Care Code 56880 Subseq Hosp Care Lvl 3 Diagnoses Constipation due to opioid therapy K59.03; T40.2X5A Hypokalemia E87.6 Hypomagnesemia E83.42 Steroid dependence F19.20 Lumbar stenosis M48.061 Rheumatoid arthritis M06.9 Acute post-hemorrhagic anemia D62 Hypertension I10 Chronic reflux esophagitis K21.0 PAF (paroxysmal atrial fibrillation) I48.0
[2020-10-06] MEDS: DOCUSATE SODIUM/SENNA 50/8.6MG TAB PO SCH (20:51)
[2020-10-06] MEDS: SENNA 8.6 MG TAB PO SCH (21:23)
[2020-10-06] MEDS: predniSONE 1 MG TAB PO SCH (21:24)
[2020-10-07] MEDS: SODIUM CHLORIDE 0.9% 1000ML 1,000 ML IV SCH ×2 (02:55→13:11)
[2020-10-07] MEDS: POLYETHYLENE (MIRALAX) 17 GM PACK PO SCH ×4 (05:52→23:34)
[2020-10-07 05:53] LABS: Basophils # (auto) 0.01 K/uL (0-0.2); Basophils % (auto) 0.1 %; Hematocrit (blood only) 29.2 % (37-47); Hemoglobin 9.1 g/dL (12.0-16.0); Immature Granulocytes # (auto) 0.03 K/uL (0.00-0.02); Immature Granulocytes % (auto) 0.4 %; Lymphocytes % (auto) 11.3 %; Mean Corpuscular Hemoglobin 25.7 pg (25-34); Mean Corpuscular Hgb Conc 31.2 g/dL (32-36); Mean Corpuscular Volume 82.5 fL (80-100); Mean Platelet Volume 9.4 fL (7.4-10.4); Monocytes # (auto) 0.55 K/uL (0.11-0.59); Monocytes % (auto) 7.8 %; Neutrophils # (auto) 5.67 K/uL (1.4-6.5); Neutrophils % (auto) 80.4 %; Platelet Count 282 K/uL (130-400); RDW Coefficient of Variation 16.8 % (11.5-14.5); RDW Standard Deviation 51.1 fL (36.4-46.3); Red Blood Count 3.54 M/uL (4.2-5.4); White Blood Count 7.06 K/uL (4.8-10.8)
[2020-10-07 06:25] LABS: Calcium 8.5 mg/dl (8.5-10.1); Creatinine Clr Calc Pharmacy 106.7 ml/min; Est GFR (African American) 121.6; Est GFR (Non-African American) 104.9; Potassium 3.9 mmol/L (3.5-5.1)
[2020-10-07] MEDS: oxyCODONE HCL IR 5 MG TAB (IMMEDIATE RELEASE) PO PRN (06:58)
[2020-10-07] MEDS: CEROVITE ADV FORMULA TAB PO SCH (08:29)
[2020-10-07] MEDS: PANTOprazole 40 MG TAB PO SCH ×2 (08:29→20:18)
[2020-10-07] MEDS: OXYBUTYNIN CHLORIDE 5 MG TAB PO SCH ×2 (08:29→20:16)
[2020-10-07] MEDS: GABAPENTIN 300 MG CAP PO SCH ×3 (08:29→20:16)
[2020-10-07] MEDS: ADVANCED PROBIOTIC 1250 MG CAPSULE PO SCH (08:29)
[2020-10-07] MEDS: LEFLUNOMIDE 10 MG TAB PO SCH (08:29)
[2020-10-07] MEDS: METOPROLOL TARTRATE 50 MG TAB PO SCH ×2 (08:29→20:17)
[2020-10-07] MEDS: predniSONE 5 MG TAB PO SCH (08:29)
[2020-10-07] MEDS: CALCIUM 600MG + VIT D 400 IU TAB PO SCH ×2 (08:30→20:18)
[2020-10-07] MEDS: APIXABAN 5 MG TABLET PO SCH ×2 (08:30→20:17)
[2020-10-07] MEDS: FAMOTIDINE 20 MG in SYRINGE 3 ML IV SCH ×2 (08:31→20:23)
[2020-10-07] MEDS ORDERED: dexAMETHasone 4 MG in SYRINGE 0 ML IV SCH (09:00)
--- NOTE | 2020-10-07 09:33 | Orthopedic Progress Note ---
Date of Service October 07, 2020 Assessment & Plan (1) Neurogenic claudication due to lumbar spinal stenosis: Will order a CT scan without contrast of lumbar spine. This is to assess for possible sacral insufficiency fracture. We will continue with bedside PT. DVT prophylaxis is in the form of teds and SCDs. She is back on her Eliquis. Admission and Anticipated Discharge Date Admission Date: October 02, 2020 Supervising Physician Co-Signing Physician Notes Dr. Golden Sanford Subjective Patient is having a better day today than yesterday. She actually appears to be overall better. Still has burning in her abdomen. But no nausea or vomiting. She has complaints of lower back pain/tailbone pain. She is quite hesitant and fearful of any type of movement or physical therapy. She has had a bowel movement. COMFORT drain was removed yesterday. H&H is morning are 9.1 and 29.2 respectively. KUB was negative for ileus yesterday. She was given some IV steroids as well as magnesium and potassium replacement yesterday. Review of Systems Review of Systems: All systems reviewed & are unremarkable except as noted in HPI & below Physical Exam Physical Exam: She is semireclined in bed today. Overall appears much better. No acute distress. Alert and oriented x3. Calf soft nontender bilaterally. Abdomen soft and nondistended. Results & Data ([facility]) Vital Signs (Past 12 Hours) Vital Signs Temp Pulse Resp BP Pulse Ox 10/07/20 06:50 37.2 C 91 H 18 178/70 H 94 10/06/20 23:08 37.1 C 101 H 16 174/73 H 92
--- NOTE | 2020-10-07 13:29 | Electrocardiogram Report ---
Test Reason : Blood Pressure : / mmHG Vent. Rate : 087 BPM Atrial Rate : 087 BPM P-R Int : 130 ms QRS Dur : 072 ms QT Int : 334 ms P-R-T Axes : 073 067 022 degrees QTc Int : 401 ms Normal sinus rhythm with sinus arrhythmia Normal ECG When compared with ECG of 06-SEP-2020 12:39, Nonspecific T wave abnormality Anterolateral leads no longer present Confirmed by Nabor Fuentes ([id number]) on 10/07/2020 1:29:42 PM Referred By: Golden Sanford Confirmed By:Nabor Fuentes
--- NOTE | 2020-10-07 14:49 | CT Scan Report ---
CT SCAN OF THE LUMBAR SPINE WITHOUT IV CONTRAST CLINICAL HISTORY: Low back pain. Sacral pain. Recent lumbar spinal fusion. COMPARISON STUDY: Lumbar spine radiographs dated 03/30/2018. Chest CT dated 06/21/2019. TECHNIQUE: CT scan of the lumbar spine is performed from the lower thoracic spine to the sacrum. Imag es are reviewed in the axial, sagittal, and coronal planes. IV contrast was not administered for this examination. The examination is degraded by streak artifact from extensive metallic spinal fusion villalobos rdware. A dose lowering technique was utilized adhering to the principles of ALARA. CT DOSE: 874.95 mGy.cm FINDINGS: The skeletal structures are osteopenic. There is postoperative change from extensive cathy ctomy and posterior fusion throughout the thoracolumbar spine. This extends from T12 to S1. Interpedi cular screws are present at all levels. The unilateral screw is seen on the right at L1, and the unil ateral screw is seen on the left at L4. The orthopedic hardware appears intact. Antibiotic implants a re suggested throughout the operative levels. There is a chronic superior endplate compression deform ity of L2 with 6 mm retropulsed fragments. This is similar to prior examinations. Vertebral body heig ht is otherwise maintained throughout the lumbar spine. There is minimal anterolisthesis at L1-L2. Al ignment is otherwise preserved. Anterior and lateral marginal osteophytes are seen throughout. There are chronic pedicular fractures of L1. These are unchanged from 02/22/[address] There are acute n ondisplaced fractures through the tips of the left transverse processes of L1 and L2. There is acute fracture through the left pedicle and the base of the left transverse process of L2 (axial image #135 and sagittal image #48). There is also acute fracture through the base of the right transverse proce ss of L2 seen on image #121, and through the left transverse process of L5 as seen on image #260. The re are left laminar fractures of L3 and L4, best seen on the oblique reformats. There is advanced dis c space narrowing at L1-L2, L4-L5, and L5-S1. Posterior disc osteophyte complexes are seen at L4-L5 a nd L5-S1. The central canal is not well assessed due to significant streak artifact. Postoperative ch espinoza and fluid is seen throughout the operative levels. A gas and fluid containing collection within the dorsal subcutaneous soft tissues measures approximately 12 x 2 x 4.5 cm, best seen on sagittal im age #50. This likely represents a seroma given recent surgery. The visualized sacrum and bony pelvis appear intact. Degenerative change is noted in the sacroiliac joints. There is fatty atrophy of the p araspinous musculature. Small pleural effusions are partially imaged. Advanced atherosclerotic calcif ication is noted in the abdominal aorta. IMPRESSION: 1. There is postoperative change from laminectomy and posterior fusion seen from T12 to S1. The ortho pedic hardware appears intact and antibiotic implants are in place. 2. There are acute fractures of the tips of the left L1 and L2 transverse processes. 3. There are acute fractures through the left pedicles of L2, L3, and L4. 4. There are acute fractures through the base of both transverse processes of L2, as well as the left transverse process of L5. 5. There is a gas and fluid containing collection within the dorsal subcutaneous soft tissues at the operative levels, likely representing a postoperative seroma. The sterility of this fluid cannot be e valuated by CT. 6. Postoperative inflammation and fluid is seen within the posterior paraspinous soft tissues through out the operative levels. 7. Pleural effusions are partially imaged. ACT 112: Negative or not required by law. Dictated: 10/07/2020 9:58 AM Transcribed: 10/07/2020 2:32 PM Leilani [id number] [email or web address] Electronically signed by: Geremias Avila M.D. 10/07/2020 2:48 PM
[2020-10-07] MEDS: DOCUSATE SODIUM/SENNA 50/8.6MG TAB PO SCH (20:16)
[2020-10-07] MEDS: SENNA 8.6 MG TAB PO SCH (20:18)
--- NOTE | 2020-10-07 21:59 | Hospitalist Progress Note ---
Date of Service October 07, 2020 Assessment & Plan (1) Constipation due to opioid therapy: improving. cont once daily miralax along w/ senna/colace. (2) Hypokalemia: replaced and resolved (3) Hypomagnesemia: repleted and resolved (4) Steroid dependence: Long-term history of chronic steroid use. She normally takes prednisone 5 mg in the morning and 1 mg in the evening. This is for long-standing RA. She had not received IV dexamethasone or hydrocortisone this admission for stress dose purposes in setting of her surgery. Thus, some of her nausea/weakness/etc could have been "addisonian" in nature. Starting 10/06/20 - started IV decadron. Currently on 4mg IV BID. On 10/08/20 AM - cut decadron to 2mg BID. On 10/09 would wean decadron to 2mg daily. On 10/10 would resume her normal prednisone dosing regimen. (5) Lumbar stenosis: Postoperative day #5 -- T12-S1 lumbar decompression/fusion. CT lumbar spine ordered by ortho this am; reviewed. CT negative for sacral insufficiency fracture. Results briefly discussed w/ Ms Christoph from ortho team. Nothing to do for transverse process fractures, etc. 03/2020 - 25-OH vit D level wnl. Defer pain management and dispo to orthopedics. (6) Rheumatoid arthritis: She takes prednisone, hydroxychloroquine, leflunomide chronically. No active flare at this time. (7) Acute post-hemorrhagic anemia: Hb 11.3 early September. Now ~9. start Fe supplementation in the am. will need Fe 2-3 months. (8) Hypertension: Uncontrolled despite titration of metoprolol earlier this stay. Suspect pain is contributing to BP lability. Follow for now. Treat pain. (9) Chronic reflux esophagitis: Continue PPI. stop H2 sandro IV. (10) PAF (paroxysmal atrial fibrillation): EKG obtained yesterday - NSR. No PAF. Eliquis was resumed 10/05 after approval by ortho. Continue metoprolol. (11) Dehydration: resolved can stop IV fluids at this time Admission and Anticipated Discharge Date Admission Date: October 02, 2020 Subjective patient's main complaint is that of back pain with that said she did sit in the chair for several hours today she had 2 small BMs - hard/firm - overnight eating is better today no vomiting has more energy no nausea babin still in place - she is worried that if taken out she won't be able to get to bathroom in time Review of Systems Constitutional: + fatigue; no fever, no chills and no anorexia Respiratory: no dyspnea Cardiovascular: no chest pain Gastrointestinal: no abdominal pain Physical Exam Constitutional: no acute distress and no altered mental status looks much better today ENMT: external ear and nose normal, oropharynx normal Respiratory: normal respiratory effort, lungs clear to auscultation Cardiovascular: Rate/Rhythm: regular rate and regular rhythm (extra beats heard) Heart Sounds: normal S1 and normal S2 Vessels: posterior tibial pulses present and dorsalis pedis pulses present; no JVD Extremities: no edema Gastrointestinal (Abdomen): Inspection/Auscultation: normal bowel sounds; abdomen not distended Percussion/Palpation: abdomen nontender, no guarding and no hepatosplenomegaly Skin: + pallor Neurologic: moves all extremities; no focal motor deficits Psychiatric: Orientation: alert and oriented x 3 Results & Data Results & Data ([facility]) Vital Signs (Past 12 Hours) Vital Signs Temp Pulse Resp BP Pulse Ox 10/07/20 14:41 36.7 C 92 H 16 154/80 H 96 Laboratory Results Laboratory Results - last 24 hr 10/07/20 10/07/20 05:28 05:28 WBC 7.06 RBC 3.54 L Hgb 9.1 L Hct 29.2 L MCV 82.5 MCH 25.7 MCHC 31.2 L RDW Std Deviation 51.1 H RDW Coeff of Jarvis 16.8 H Plt Count 282 MPV 9.4 Immature Gran % (Auto) 0.4 Neut % (Auto) 80.4 Lymph % (Auto) 11.3 Rogers % (Auto) 7.8 Eos % (Auto) 0.0 Baso % (Auto) 0.1 Neut # (Auto) 5.67 Lymph # (Auto) 0.80 L Rogers # (Auto) 0.55 Eos # (Auto) 0.00 Baso # (Auto) 0.01 Immature Gran # (Auto) 0.03 H Sodium 138 Potassium 3.9 D Chloride 109 H Carbon Dioxide 22 Anion Gap 7.0 BUN 12 Creatinine 0.39 L Est Cr Clr Drug Dosing 106.7 Est GFR ( Amer) 121.6 Est GFR (Non-Af Amer) 104.9 BUN/Creatinine Ratio 31.0 H Glucose 113 H Calcium 8.5 Magnesium 2.0 PG Care Time/CCT Total # of Minutes Spent Total Time Spent with Patient: Total time spent is greater than 50% in coordination of care (as documented) at patient's floor/unit and/or counseling patient: Coding Level of Care Code 88507 Subseq Hosp Care Lvl 3 Diagnoses Constipation due to opioid therapy K59.03; T40.2X5A Hypokalemia E87.6 Hypomagnesemia E83.42 Steroid dependence F19.20 Lumbar stenosis M48.061 Rheumatoid arthritis M06.9 Acute post-hemorrhagic anemia D62 Hypertension I10 Chronic reflux esophagitis K21.0 PAF (paroxysmal atrial fibrillation) I48.0 Dehydration E86.0
--- NOTE | 2020-10-08 07:59 | Hospitalist Progress Note ---
Date of Service October 08, 2020 Assessment & Plan (1) Constipation due to opioid therapy: improving -- continues to have bowel movements cont once daily miralax along w/ senna/colace. (2) Hypokalemia: replaced and resolved - K stable 3.8 on AM labs (3) Hypomagnesemia: repleted and resolved (4) Steroid dependence: Long-term history of chronic steroid use. She normally takes prednisone 5 mg in the morning and 1 mg in the evening. This is for long-standing RA. She had not received IV dexamethasone or hydrocortisone this admission for stress dose purposes in setting of her surgery. Thus, some of her nausea/weakness/etc could have been "addisonian" in nature. Starting 10/06/20 - started IV decadron. Currently on 4mg IV BID. On 10/08/20 AM - cut decadron to 2mg BID --> decreasing to 2mg IV daily for 10/09 AM then would resume her usual 5+1mg dosing at discharge (5) Lumbar stenosis: Postoperative day #6 -- T12-S1 lumbar decompression/fusion. CT lumbar spine ordered by ortho this am; reviewed --> acute fractures but not surgical in nature (not to do with transverse process fractures/etc). Ordered t opical voltaren and lidocaine patch. She did get PO and IV pain medications this morning. CT negative for sacral insufficiency fracture. 03/2020 - 25-OH vit D level wnl. Defer pain management and dispo to orthopedics -- got PO and IV this morning 10/08: Planning for some rehab at discharge at this point -> CM following and [facility] auth pending. Will need updated therapy notes. [facility] also able to accept. Awaiting insurance determination for [facility] (6) Rheumatoid arthritis: She takes prednisone, hydroxychloroquine, leflunomide chronically. Decadron as above for addision nature n/v/weakness (resolved since) No active flare at this time. (7) Acute post-hemorrhagic anemia: Hb 11.3 early September. Now ~9. started Fe supplementation this morning and would continue for 3-2 month at discharge (8) Hypertension: Uncontrolled despite titration of metoprolol earlier this stay. Suspect pain is contributing to BP lability -- did have increased pain this morning requiring IV and PO medications for pain with BP elevated at 177/85 Follow for now. Continue to treat pain. (9) Chronic reflux esophagitis: Continue PPI. stopped H2 sandro IV. Stable (10) PAF (paroxysmal atrial fibrillation): EKG obtained yesterday - NSR. No PAF. Eliquis was resumed / after approval by ortho. Continued metoprolol. (11) Dehydration: resolved and IVF stopped DVT Prophylaxis Eliquis resumes post-operatively as above Thank you for allowing hospitalist service to participate in the care of Ms Esparza. Hospitalist will follow along. Rehab planned at discharge Admission and Anticipated Discharge Date Admission Date: October 02, 2020 Subjective Patient seen this morning. Got something in her IV for pain and improved per her account but does have some "fogginess". Tried voltaren in the past for her right shoulder with relief and we will order for her left low back along with lidocaine patch. Now with talks of therapy at discharge with SNF. CM to follow. No fever, chills, chest pain, shortness of breath, abdominal pain, nausea or vomiting. Chan removed this morning and she has voided since that time. +BM and feeling better. Plans for d/c in next 1-2 days. Review of Systems Review of Systems: All systems reviewed & are unremarkable except as noted in HPI & below Physical Exam Constitutional: well developed; no acute distress and no altered mental status general pallor Eyes: + anicteric sclerae and PERRL ENMT: external ear and nose normal, oropharynx normal Mouth: + dry oral mucous membranes (improved) Neck: normal visual inspection and trachea midline Respiratory: normal respiratory effort, lungs clear to auscultation Cardiovascular: Rate/Rhythm: regular rate and regular rhythm (extra beats heard) Heart Sounds: normal S1 and normal S2 Vessels: posterior tibial pulses present and dorsalis pedis pulses present; no JVD Extremities: no edema Gastrointestinal (Abdomen): Inspection/Auscultation: normal bowel sounds; abdomen not distended Percussion/Palpation: abdomen nontender, no guarding and no hepatosplenomegaly Musculoskeletal: dressing to lumbar spine c/d/i tenderness to palpation over left spinal processes below dressing NVI pulses palpable bilaterally Skin: normal turgor and + pallor; no lesions Neurologic: moves all extremities; no focal motor deficits Psychiatric: Orientation: alert and oriented x 3 Genitourinary: NO CHAN Results & Data Results & Data ([facility]) Vital Signs (Past 12 Hours) Vital Signs Temp Pulse Resp BP Pulse Ox 10/08/20 06:46 36.8 C 98 H 16 177/85 H 97 10/07/20 22:53 36.8 C 77 16 188/65 H 92 PG Care Time/CCT Total # of Minutes Spent Total Time Spent with Patient: Total time spent is greater than 50% in coordination of care (as documented) at patient's floor/unit and/or counseling patient: Coding Level of Care Code 54817 Subseq Hosp Care Lvl 3 Diagnoses Constipation due to opioid therapy K59.03; T40.2X5A Hypokalemia E87.6 Hypomagnesemia E83.42 Steroid dependence F19.20 Lumbar stenosis M48.061 Rheumatoid arthritis M06.9 Acute post-hemorrhagic anemia D62 Hypertension I10 Chronic reflux esophagitis K21.0 PAF (paroxysmal atrial fibrillation) I48.0 Dehydration E86.0
[2020-10-08] MEDS: oxyCODONE HCL IR 5 MG TAB (IMMEDIATE RELEASE) PO PRN (08:14)
[2020-10-08] MEDS: CEROVITE ADV FORMULA TAB PO SCH (08:15)
[2020-10-08] MEDS: dexAMETHasone 2 MG in SYRINGE 0 ML IV SCH ×2 (08:15→20:34)
[2020-10-08] MEDS: ADVANCED PROBIOTIC 1250 MG CAPSULE PO SCH (08:16)
[2020-10-08] MEDS: LEFLUNOMIDE 10 MG TAB PO SCH (08:16)
[2020-10-08] MEDS: GABAPENTIN 300 MG CAP PO SCH ×3 (08:16→20:35)
[2020-10-08] MEDS: OXYBUTYNIN CHLORIDE 5 MG TAB PO SCH ×2 (08:16→20:35)
[2020-10-08] MEDS: METOPROLOL TARTRATE 50 MG TAB PO SCH ×2 (08:17→20:35)
[2020-10-08] MEDS: PANTOprazole 40 MG TAB PO SCH ×2 (08:17→20:35)
[2020-10-08] MEDS: CALCIUM 600MG + VIT D 400 IU TAB PO SCH ×2 (08:18→20:34)
[2020-10-08] MEDS: POLYETHYLENE (MIRALAX) 17 GM PACK PO SCH (08:18)
[2020-10-08] MEDS: APIXABAN 5 MG TABLET PO SCH ×2 (08:18→20:35)
[2020-10-08] MEDS: CALCITRIOL 0.25 MCG CAPSULE PO SCH (08:19)
[2020-10-08 08:46] LABS: BUN Creatinine Ratio 31.1 (10-20); Calcium 8.9 mg/dl (8.5-10.1); Creatinine Clr Calc Pharmacy 71.7 ml/min; Est GFR (African American) 106.7; Est GFR (Non-African American) 92.1; Potassium 3.8 mmol/L (3.5-5.1)
--- NOTE | 2020-10-08 09:40 | Orthopedic Progress Note ---
Date of Service October 08, 2020 Assessment & Plan (1) Neurogenic claudication due to lumbar spinal stenosis: Admission and Anticipated Discharge Date Admission Date: October 02, 2020 This time we will continue physical therapy as tolerated. [facility] however she may ultimately be a better candidate progress SNF. Subjective Patient complaining mostly of back pain today denies any leg pain. Abdominal discomfort is improved. Physical Exam Physical Exam: On exam patient is in a chair at the bedside. Abdomen is soft. Good strength testing lower extremities. Results & Data ([facility]) Vital Signs (Past 12 Hours) Vital Signs Temp Pulse Resp BP Pulse Ox 10/08/20 06:46 36.8 C 98 H 16 177/85 H 97 10/07/20 22:53 36.8 C 77 16 188/65 H 92
[2020-10-08] MEDS: HYDROmorphone INJ 1 MG/ML SYRINGE IV PRN (10:10)
[2020-10-08] MEDS: LIDOCAINE 5% 1 PATCH TD SCH (11:10)
[2020-10-08] MEDS: DICLOFENAC SOD 1% GEL 100 GM TUBE EXT SCH ×3 (12:44→20:36)
[2020-10-08] MEDS: SENNA 8.6 MG TAB PO SCH (20:36)
[2020-10-08] MEDS: DOCUSATE SODIUM/SENNA 50/8.6MG TAB PO SCH (20:36)
[2020-10-09] MEDS: DICLOFENAC SOD 1% GEL 100 GM TUBE EXT SCH ×4 (07:59→20:33)
[2020-10-09] MEDS: LIDOCAINE 5% 1 PATCH TD SCH (07:59)
[2020-10-09] MEDS: POLYETHYLENE (MIRALAX) 17 GM PACK PO SCH (07:59)
[2020-10-09] MEDS ORDERED: dexAMETHasone 8 MG in SYRINGE 0 ML IV ONE (08:00)
--- NOTE | 2020-10-09 08:08 | Hospitalist Progress Note ---
Date of Service October 09, 2020 Assessment & Plan (1) Lumbar stenosis: Postoperative day #7 -- T12-S1 lumbar decompression/fusion. CT lumbar spine ordered by ortho this am; reviewed --> acute fractures but not surgical in nature (not to do with transverse process fractures/etc). CT negative for sacral insufficiency fracture. 03/2020 - 25-OH vit D level wnl. Defer pain management and dispo to orthopedics -- got PO and IV morning of 10/08 but only Tylenol since that time and endorses significant pain today. Topical Voltaren and lidocaine patch added yesterday but she denies significant relief Had nausea today -- given dose of Zofran 10/08: Planning for some rehab at discharge at this point -> CM following and [facility] auth pending. Will need updated therapy notes. [facility] also able to accept. Awaiting insurance determination for [facility] (2) Constipation due to opioid therapy: improved -- states continues to have bowel movements cont once daily miralax along w/ senna/colace. (3) Rheumatoid arthritis: She takes prednisone, hydroxychloroquine, leflunomide chronically --> TO HAVE HELD BOTH PLAQUENIL AND LEFLUNOMIDE PRE/POST OPERATIVELY and she has been continued on her Arava--> HOLDING NOW Decadron as above for Juvenal nature n/v/weakness (resolved since) No active flare at this time. (4) Hypokalemia: replaced and resolved - K stable 3.8 on AM labs (5) Hypomagnesemia: repleted and resolved (6) Steroid dependence: Long-term history of chronic steroid use. She normally takes prednisone 5 mg in the morning and 1 mg in the evening. This is for long-standing RA. She had not received IV dexamethasone or hydrocortisone this admission for stress dose purposes in setting of her surgery. Thus, some of her nausea/weakness/etc could have been "addisonian" in nature. Starting 10/06/20 - started IV decadron. Currently on 4mg IV BID. On 10/08/20 AM - cut decadron to 2mg BID --> decreasing to 2mg IV daily for 4/6 AM then would resume her usual 5+1mg dosing at discharge (7) Acute post-hemorrhagic anemia: Hb 11.3 early September. Now ~9. started Fe supplementation this morning and would continue for 2-3 month at discharge. Rx sent already (8) Hypertension: Uncontrolled despite titration of metoprolol earlier this stay. Suspect pain is contributing to BP lability -- did have increased pain morning of 45 requiring IV and PO medications for pain with BP elevated at 181/76 but did not get pain medications outside of tylenol since 10/08 Follow for now. Continue to treat pain. (9) Chronic reflux esophagitis: Continue PPI. stopped H2 sandro IV. Stable (10) PAF (paroxysmal atrial fibrillation): EKG obtained yesterday - NSR. No PAF. Eliquis was resumed 10/05 after approval by ortho. Continued metoprolol. (11) Dehydration: resolved and IVF stopped DVT Prophylaxis Eliquis resumes post-operatively as above Thank you for allowing hospitalist service to participate in the care of Ms Esparza. Hospitalist will follow along. Rehab planned at discharge Admission and Anticipated Discharge Date Admission Date: October 02, 2020 Subjective Patient evaluated this morning. States not feeling very great today. Still quite painful and not very much help with the lidocaine or voltaren gel. Discussed with nursing and she has only getting tylenol since yesterday morning and will provide with PO Oxycodone. Pain still in her tailbone area and worse with movement. Did have some "queziness" this morning which is improving with zofran just administered. Continues to have bowel movements in bedside commode. Seen by Dr. Sanford this morning and she notes she will be staying another night. Discussed her RA medications -- she is typically on prednisone but also has Plaquenil and Arava for her maintenence medications and was to hold these 1 weeks prior to surgery and for 2 weeks after. Discussed she has has been getting the Arava and we will hold this but then she will need f/u with her [employer] at discharge. No fever, chills, chest pain, shortness of breath. Review of Systems Review of Systems: All systems reviewed & are unremarkable except as noted in HPI & below Physical Exam Constitutional: well developed; no acute distress, no altered mental status and + uncomfortable (laying on side in bed with covers over her head) Eyes: + anicteric sclerae and PERRL ENMT: Mouth: + dry oral mucous membranes (improved) Neck: normal visual inspection and trachea midline Respiratory: normal respiratory effort, lungs clear to auscultation Cardiovascular: Rate/Rhythm: regular rate and regular rhythm (extra beats heard) Heart Sounds: normal S1 and normal S2 Vessels: posterior tibial pulses present and dorsalis pedis pulses present; no JVD Extremities: no edema Gastrointestinal (Abdomen): Inspection/Auscultation: normal bowel sounds; abdomen not distended Percussion/Palpation: abdomen nontender, no guarding and no hepatosplenomegaly Musculoskeletal: dressing to lumbar spine c/d/i NVI pulses palpable bilaterally 5/5 dorsiflexion/plantar flexion tender to palpation lumbar spine, primarily to left of dressing in lumbosacral region Skin: normal turgor and + pallor; no lesions Neurologic: moves all extremities; no focal motor deficits Psychiatric: Orientation: alert and oriented x 3 Results & Data Results & Data ([facility]) Vital Signs (Past 12 Hours) Vital Signs Temp Pulse Pulse Resp BP BP Pulse Ox 10/09/20 07:37 36.8 C 90 18 181/76 H 96 10/08/20 22:38 36.4 C L 73 17 184/76 H 95 10/08/20 20:33 76 147/66 H PG Care Time/CCT Total # of Minutes Spent Total Time Spent with Patient: Total time spent is greater than 50% in coordination of care (as documented) at patient's floor/unit and/or counseling patient: Coding Level of Care Code 61748 Subseq Hosp Care Lvl 3 Diagnoses Lumbar stenosis M48.061 Constipation due to opioid therapy K59.03; T40.2X5A Rheumatoid arthritis M06.9 Hypokalemia E87.6 Hypomagnesemia E83.42 Steroid dependence F19.20 Acute post-hemorrhagic anemia D62 Hypertension I10 Chronic reflux esophagitis K21.0 PAF (paroxysmal atrial fibrillation) I48.0 Dehydration E86.0
[2020-10-09] MEDS ORDERED: dexAMETHasone 2 MG in SYRINGE 0 ML IV SCH (09:00)
[2020-10-09] MEDS: APIXABAN 5 MG TABLET PO SCH ×2 (09:14→20:31)
[2020-10-09] MEDS: CALCIUM 600MG + VIT D 400 IU TAB PO SCH ×2 (09:14→20:31)
[2020-10-09] MEDS: CEROVITE ADV FORMULA TAB PO SCH (09:14)
[2020-10-09] MEDS: PANTOprazole 40 MG TAB PO SCH ×2 (09:14→20:32)
[2020-10-09] MEDS: METOPROLOL TARTRATE 50 MG TAB PO SCH ×2 (09:14→20:32)
[2020-10-09] MEDS: LEFLUNOMIDE 10 MG TAB PO SCH (09:14)
[2020-10-09] MEDS: ADVANCED PROBIOTIC 1250 MG CAPSULE PO SCH (09:14)
[2020-10-09] MEDS: GABAPENTIN 300 MG CAP PO SCH ×3 (09:14→20:32)
[2020-10-09] MEDS: OXYBUTYNIN CHLORIDE 5 MG TAB PO SCH ×2 (09:14→20:31)
[2020-10-09] MEDS: ACETAMINOPHEN 500 MG TAB PO PRN (09:20)
[2020-10-09] MEDS: oxyCODONE HCL IR 5 MG TAB (IMMEDIATE RELEASE) PO PRN (11:38)
[2020-10-09 12:28] LABS: BUN Creatinine Ratio 34.7 (10-20); Calcium 9.2 mg/dl (8.5-10.1); Creatinine Clr Calc Pharmacy 75.6 ml/min; Est GFR (African American) 108.6; Est GFR (Non-African American) 93.7; Magnesium 1.7 mg/dl (1.8-2.4); Potassium 4.4 mmol/L (3.5-5.1)
--- NOTE | 2020-10-09 13:07 | Orthopedic Progress Note ---
Date of Service October 09, 2020 Assessment & Plan (1) Neurogenic claudication due to lumbar spinal stenosis: Admission and Anticipated Discharge Date Admission Date: October 02, 2020 This time we will continue to encourage physical therapy occupational therapy as tolerated. She will most likely be a candidate for discharge in the next day or so. Subjective Patient complaining of back pains and some modest abdominal discomfort. She denies any leg pain numbness or tingling. Physical Exam Physical Exam: On exam she is in bed at this time. Is reasonable strength testing lower extremities. Sensory intact. Results & Data ([facility]) Vital Signs (Past 12 Hours) Vital Signs Temp Pulse Resp BP Pulse Ox 10/09/20 07:37 36.8 C 90 18 181/76 H 96
[2020-10-09] MEDS ORDERED: SODIUM CHLORIDE 0.9% 500 ML IV SCH (16:30)
[2020-10-09] MEDS: MAGNESIUM SULFATE / D5W 1 GM/100 ML BAG IV SCH ×2 (17:41→19:33)
[2020-10-09] MEDS: DOCUSATE SODIUM/SENNA 50/8.6MG TAB PO SCH (20:33)
[2020-10-09] MEDS: SENNA 8.6 MG TAB PO SCH (20:33)
[2020-10-10] MEDS ORDERED: COUGH DROP (SUGAR FREE) LOZ 24 LOZ/1 BOX BUCCAL ONE (00:05)
[2020-10-10] MEDS: oxyCODONE HCL IR 5 MG TAB (IMMEDIATE RELEASE) PO PRN ×3 (02:42→13:19)
[2020-10-10 07:02] LABS: Basophils # (auto) 0.01 K/uL (0-0.2); Basophils % (auto) 0.1 %; Hematocrit (blood only) 28.6 % (37-47); Hemoglobin 9.2 g/dL (12.0-16.0); Immature Granulocytes # (auto) 0.06 K/uL (0.00-0.02); Immature Granulocytes % (auto) 0.7 %; Lymphocytes % (auto) 11.5 %; Mean Corpuscular Hemoglobin 26.4 pg (25-34); Mean Corpuscular Hgb Conc 32.2 g/dL (32-36); Mean Corpuscular Volume 81.9 fL (80-100); Mean Platelet Volume 9.6 fL (7.4-10.4); Monocytes # (auto) 1.15 K/uL (0.11-0.59); Monocytes % (auto) 13.2 %; Neutrophils # (auto) 6.46 K/uL (1.4-6.5); Neutrophils % (auto) 74.5 %; Platelet Count 354 K/uL (130-400); RDW Standard Deviation 51.3 fL (36.4-46.3); Red Blood Count 3.49 M/uL (4.2-5.4); White Blood Count 8.68 K/uL (4.8-10.8)
[2020-10-10 07:31] LABS: BUN Creatinine Ratio 38.7 (10-20); Calcium 8.7 mg/dl (8.5-10.1); Est GFR (African American) 110.6; Est GFR (Non-African American) 95.5; Magnesium 2.1 mg/dl (1.8-2.4); Potassium 4.2 mmol/L (3.5-5.1)
--- NOTE | 2020-10-10 07:50 | Hospitalist Progress Note ---
Date of Service October 10, 2020 Assessment & Plan (1) Lumbar stenosis: Postoperative day #7 -- T12-S1 lumbar decompression/fusion. CT lumbar spine ordered by ortho this am; reviewed --> acute fractures but not surgical in nature (not to do with transverse process fractures/etc). CT negative for sacral insufficiency fracture. 03/2020 - 25-OH vit D level wnl. Defer pain management and dispo to orthopedics -- got PO and IV morning of 10/08 but only Tylenol since that time and endorses significant pain today. Topical Voltaren and lidocaine patch added yesterday but she denies significant relief but had improvement with her PO Oxycodone this morning which is to be continued at discharge 10/10: Planning for some rehab at discharge at this point -> accepted to [facility] today at discretion of primary service (2) Constipation due to opioid therapy: improved -- states continues to have bowel movements but not documented. Reported BM 10/09 but has refused miralax over past several days --> encouraged continued use at rehab to prevent constipation/worsening abdominal discomfort cont once daily miralax along w/ senna/colace. (3) Rheumatoid arthritis: She takes prednisone, hydroxychloroquine, leflunomide chronically --> TO HAVE HELD BOTH PLAQUENIL AND LEFLUNOMIDE PRE/POST OPERATIVELY and she has been continued on her Arava--> HOLDING NOW Decadron as above for Juvenal nature n/v/weakness (resolved since) No active flare at this time. --> RESUME HER HOME DOSE TODAY AT DISCHARGE (4) Hypokalemia: replaced and resolved - K stable AM labs (5) Hypomagnesemia: repleted and resolved (6) Steroid dependence: Long-term history of chronic steroid use. She normally takes prednisone 5 mg in the morning and 1 mg in the evening. This is for long-standing RA. She had not received IV dexamethasone or hydrocortisone this admission for stress dose purposes in setting of her surgery. Thus, some of her nausea/weakness/etc could have been "addisonian" in nature. Starting 10/06/20 - started IV decadron. Currently on 4mg IV BID. On 10/08/20 AM - cut decadron to 2mg BID --> decreasing to 2mg IV daily for 10/09 AM then would resume her usual 5+1mg dosing at discharge today (7) Acute post-hemorrhagic anemia: Hb 11.3 early September. Now ~9. started Fe supplementation this morning and would continue for 2-3 month at discharge. Rx sent already (8) Hypertension: Elevated despite titration of metoprolol earlier this stay. Suspect pain is contributing to BP lability -- did have increased pain morning of 10/08 requiring IV and PO medications for pain with BP elevated at 181/76 but did not get pain medications outside of tylenol since 10/08 Sent with increased metoprolol 50mg BID and instructed to have follow up with PCP for further titrations if remains elevated with adequate pain control (did improve yesterday after administration of pain medications as well and had not gotten her metoprolol prior to BP read this morning) (9) Chronic reflux esophagitis: Continue PPI. Stable (10) PAF (paroxysmal atrial fibrillation): EKG obtained yesterday - NSR. No PAF. Eliquis was resumed 10/05 after approval by ortho. Continued metoprolol. (11) Dehydration: IVF stopped and dehydration improved on examination DVT Prophylaxis Eliquis resumes post-operatively as above Thank you for allowing hospitalist service to participate in the care of Ms Esparza. Hospitalist will sign off at this time. Please call with any questions/concerns. Admission and Anticipated Discharge Date Admission Date: October 02, 2020 Subjective Patient seen this morning up in chair eating breakfast. Looks much more comfortable but she does note still very painful with transfers but it is better than day before since getting PO medicine this morning. Discussed elevated BP likely worsened by pain and that we will continue the increased metoprolol at discharge and will need f/u with PCP for further titrations if needed if they remain elevated and pain is controlled. Also discussed continued iron supplementation. Continues to pass gas. Belly pain improved. She had been refusing miralax -- discussed importance of continuing to prevent constipation and worsening abdominal pain. Questions/concerns addressed at this time. Plans for d/c to rehab once seen by Dr. Sanford today. Review of Systems Review of Systems: All systems reviewed & are unremarkable except as noted in HPI & below Physical Exam Constitutional: well developed and comfortable (sitting up in chair); no acute distress and no altered mental status Eyes: + anicteric sclerae and PERRL ENMT: external ear and nose normal, oropharynx normal Neck: normal visual inspection and trachea midline Respiratory: normal respiratory effort, lungs clear to auscultation Cardiovascular: Rate/Rhythm: regular rate and regular rhythm (extra beats heard) Heart Sounds: normal S1 and normal S2 Vessels: posterior tibial pulses present and dorsalis pedis pulses present; no JVD Extremities: no edema Gastrointestinal (Abdomen): Inspection/Auscultation: normal bowel sounds; abdomen not distended Percussion/Palpation: abdomen nontender, no guarding and no hepatosplenomegaly Musculoskeletal: dressing to lumbar spine c/d/i NVI pulses palpable bilaterally calves non-tender to palpation strength equal b/l tender to palpation lumbosacral region at site of fractures, not as tender as days prior Skin: normal turgor and + pallor (improved); no lesions Neurologic: moves all extremities; no focal motor deficits Psychiatric: Orientation: alert and oriented x 3 Results & Data Results & Data ([facility]) Vital Signs (Past 12 Hours) Vital Signs Temp Pulse Pulse Resp BP BP Pulse Ox 10/10/20 07:32 36.7 C 77 16 194/79 H 97 10/09/20 22:30 36.9 C 72 16 137/75 97 10/09/20 20:30 73 120/65 Laboratory Results 10/10/20 10/10/20 10/09/20 Range/Units 06:47 06:47 11:44 WBC 8.68 (4.8-10.8) K/uL RBC 3.49 L (4.2-5.4) M/uL Hgb 9.2 L (12.0-16.0) g/dL Hct 28.6 L (37-47) % MCV 81.9 (80-100) fL MCH 26.4 (25-34) pg MCHC 32.2 (32-36) g/dL RDW Std Deviation 51.3 H (36.4-46.3) fL RDW Coeff of Jarvis 17.0 H (11.5-14.5) % Plt Count 354 (130-400) K/uL MPV 9.6 (7.4-10.4) fL Immature Gran % (Auto) 0.7 % Neut % (Auto) 74.5 % Lymph % (Auto) 11.5 % Harris % (Auto) 13.2 % Eos % (Auto) 0.0 % Baso % (Auto) 0.1 % Neut # (Auto) 6.46 (1.4-6.5) K/uL Lymph # (Auto) 1.00 L (1.2-3.4) K/uL Harris # (Auto) 1.15 H (0.11-0.59) K/uL Eos # (Auto) 0.00 (0-0.5) K/uL Baso # (Auto) 0.01 (0-0.2) K/uL Immature Gran # (Auto) 0.06 H (0.00-0.02) K/uL Sodium 139 136 (136-145) mmol/L Potassium 4.2 4.4 D (3.5-5.1) mmol/L Chloride 108 H 106 (98-107) mmol/L Carbon Dioxide 26 26 (21-32) mmol/L Anion Gap 5.0 5.0 (3-11) BUN 20 H 19 H (7-18) mg/dl Creatinine 0.52 L 0.55 L (0.6-1.2) mg/dl Est Cr Clr Drug Dosing 80.0 75.6 ml/min Est GFR ( Amer) 110.6 108.6 Est GFR (Non-Af Amer) 95.5 93.7 BUN/Creatinine Ratio 38.7 H 34.7 H (10-20) Glucose 100 H 96 (70-99) mg/dl Calcium 8.7 9.2 (8.5-10.1) mg/dl Magnesium 2.1 1.7 L (1.8-2.4) mg/dl PG Care Time/CCT Total # of Minutes Spent Total Time Spent with Patient: Total time spent is greater than 50% in coordination of care (as documented) at patient's floor/unit and/or counseling patient: Coding Level of Care Code 87173 Subseq Hosp Care Lvl 2 Diagnoses Lumbar stenosis M48.061 Constipation due to opioid therapy K59.03; T40.2X5A Rheumatoid arthritis M06.9 Hypokalemia E87.6 Hypomagnesemia E83.42 Steroid dependence F19.20 Acute post-hemorrhagic anemia D62 Hypertension I10 Chronic reflux esophagitis K21.0 PAF (paroxysmal atrial fibrillation) I48.0 Dehydration E86.0
[2020-10-10] MEDS: DICLOFENAC SOD 1% GEL 100 GM TUBE EXT SCH ×2 (09:14→12:34)
[2020-10-10] MEDS: LIDOCAINE 5% 1 PATCH TD SCH (09:15)
[2020-10-10] MEDS: POLYETHYLENE (MIRALAX) 17 GM PACK PO SCH (09:15)
[2020-10-10] MEDS: METOPROLOL TARTRATE 50 MG TAB PO SCH (09:15)
[2020-10-10] MEDS: GABAPENTIN 300 MG CAP PO SCH ×2 (09:15→13:15)
[2020-10-10] MEDS: CEROVITE ADV FORMULA TAB PO SCH (09:16)
[2020-10-10] MEDS: PANTOprazole 40 MG TAB PO SCH (09:16)
[2020-10-10] MEDS: OXYBUTYNIN CHLORIDE 5 MG TAB PO SCH (09:16)
[2020-10-10] MEDS: ADVANCED PROBIOTIC 1250 MG CAPSULE PO SCH (09:16)
[2020-10-10] MEDS: APIXABAN 5 MG TABLET PO SCH (09:16)
[2020-10-10] MEDS: CALCIUM 600MG + VIT D 400 IU TAB PO SCH (09:16)
--- NOTE | 2020-10-10 14:02 | Discharge Summary ---
Date of Service October 10, 2020 Admission HPI Per Admitting Provider This is a 70-year-old female who presents with chronic persistent back and bilateral leg pain. Failing course of nonoperative care she is here for surgical invention. Principal Diagnosis Lumbar spinal stenosis with neurogenic claudication Discharge Data Allergies Allergy/AdvReac Type Severity Reaction Status Date / Time dalbavancin Allergy Severe hypotension, Verified 10/02/20 08:33 flushing, tachypnea Consultations 10/02/20 18:48 Consult Hospitalist Routine Procedures Performed Operation Date: 10/02/20 09:35 Actual Procedures p L1-S1 Decompression, T12-S1 Fusion, use of Iliac Bolts, use of Infuse, Spinal Cord Monitoring(Not Applicable) - Golden Sanford DO Ordered Studies 10/02/20 09:35 FL fluoroscopy <1hr Routine FL lumbar spine 2-3V Routine 10/07/20 09:28 CT lumbar spine wo con Routine Hospital Course (1) Neurogenic claudication due to lumbar spinal stenosis: Patient went multilevel lumbar decompression fusion tolerated was taken to orthopedic for postoperative. Postop day 1 is progressively slowly and throughout her hospital stay. She was demonstrating good strength testing lower extremities improvement of her leg pain but back symptoms still limiting her strength significantly. Subsequently she was discharged to [facility] facility. Total Time Total Time Spent Total Time Spent (In Minutes): 20 minutes Discharge Plan Discharge Items Patient Disposition: Transfer Residential Fac Reason For Visit: Other Intervetebral Disc Degeneration Lumbar Li Discharge Diagnosis: Lumbar spinal stenosis with neurogenic claudication Activity: As commented below Non-emergency contact: Primary Care Provider Call non-emergency contact if: you have any medication questions Follow-up/Referrals: Sylvia Nails MD [Primary Care Provider] - Diet: Regular Addtl Attending Provider Instructions: You have been started on iron supplementation for your blood counts and this will be continued for 3 months. Your blood pressure has also been elevated, which can be partially from pain, but your metoprolol has been increased to 50mg by mouth TWICE daily. You should follow up with your PCP to see if you need additional agents if blood pressures remain elevated once pain subsided. You should continue to hold your Hydroxychloroquine and Arava as instructed by your Cherry Sorter and check with them prior to resuming. You had been given your Arava while in the hospital but this was held during end of your stay and it is recommended that you check with your provider prior to resuming. Pending Studies at Discharge: No Stand-Alone Forms: [facility] Skilled Items Patient informed of condition?: Yes DNR: No Communicable Disease: No Discharge Prognosis: Improving Lines: None Urinary Catheter: No Medications and DC Order Prescriptions: New ferrous sulfate 325 mg (65 mg iron) tablet 325 mg PO DAILY Qty: 30 RF: 2 metoprolol tartrate 50 mg Tablet 50 mg PO BID Qty: 60 RF: 0 tramadol 50 mg tablet 50 mg PO Q6H PRN (Reason: pain, moderate) Qty: 30 RF: 0 oxycodone 5 mg tablet 5 mg PO Q6H PRN (Reason: pain, severe) Qty: 30 RF: 0 Continued oxybutynin chloride 5 mg tablet 5 mg PO BID Qty: 180 RF: 1 Eliquis 5 mg tablet 5 mg PO BID Qty: 180 RF: 1 lidocaine 5 % adhesive patch,medicated 1 patch topical DAILY PRN (Reason: Pain) RF: 0 leflunomide [Arava] 20 mg tablet 20 mg PO DAILY RF: 0 (DME) Knee Stabilizer misc See Dose Instructions .ROUTE .MEDSUPPLY Qty: 1 RF: 0 prednisone 5 mg Tablet 5 mg PO QAM RF: 0 prednisone 1 mg Tablet 1 mg PO QPM RF: 0 Probiotic 3 billion cell Capsule 3,000 mmu cells PO QAM RF: 0 Macuvite [facility] Care 7,160 unit-113 mg-100 unit Tablet 1 tab PO QAM RF: 0 sennosides [Senokot] 8.6 mg tablet 17.2 mg PO HS RF: 0 calcitriol [Rocaltrol] 0.5 mcg capsule 0.5 mcg PO 2XWK RF: 0 docusate sodium 100 mg capsule 100 mg PO HS PRN (Reason: constipation) RF: 0 omeprazole 20 mg capsule,delayed release(DR/EC) 20 mg PO BID RF: 0 cranberry 500 mg Capsule 500 mg PO QPM RF: 0 hydrocodone-acetaminophen 10-325 mg tablet 1 tab PO Q6 PRN (Reason: Pain) RF: 0 gabapentin 300 mg capsule 300 mg PO TID RF: 0 Calcium 600 + D(3) 600 mg calcium- 200 unit Capsule 1 cap PO BID RF: 0 Discontinued metoprolol tartrate 25 mg tablet 12.5 mg PO BID Qty: 90 RF: 1 hydroxychloroquine [Plaquenil] 200 mg tablet 200 mg PO BID RF: 0 Discharge Orders: Discharge Order (Routine); Ordered 10/10/20 Ordered By: Golden Sanford Admission Data Admit Date/Time: 10/02/20 14:41 Attending Provider: Golden Sanford Admit Provider: Golden Sanford Primary Care Provider: Sylvia Nails Other Providers: [facility] ; [facility] ; Franklin Mccoy
== END 2020-10-10 15:27 | DRG 460 ==
LOC: ASU 07:54 → 3E 14:41

== ENCOUNTER 2020-11-08 06:27 | Inpatient (IN) ==
--- NOTE | 2020-11-01 13:59 | Anesthesiology Consultation ---
Date of Service November 01, 2020 Assessment & Plan (1) Encounter for pre-operative examination: Chart Review Chart Review: Acceptable Risk for Surgery (pending preop Covid testing results ) and Patient NOT seen in Pre Admission Testing History of glossectomy with unilateral radiacal neck dissection Per nursing assessment November 01, 2020, patient denies any recent travel. No known Covid infection in the past 90 days. No known Covid positive contacts or Covid related symptoms. Preop Covid testing scheduled 11/01/20 at [facility]= will await results Patient seen by PCP 11/01/2020 = patient seen via telehealth for ongoing medical problems. Patient recently admitted to hospital for lumbar spinal stenosisfailed nonoperative care and underwent multilevel lumbar decompression and fusion. Did well and was discharged to halfway facilitywas doing well but had difficulty controlling painCT scan showed tail bone fracture. Patient is scheduled for repair later this week. L1-S1 decompression, T12-S1 fusion 10/02/2020 = done under GA with grade 1 view with glidescope #3. ETT #7.0. No anesthesia issues noted per anesthesia record. Seen by cardio 09/12/2020 (prior to 10/02/20 lumbar surgery) = presents for preoperative cardiovascular evaluation. Hypertension also part of PMH (will u pdate PMH). Patient currently asymptomatic but has very limited functional status secondary to back painunable to perform 4 METS of activity. Therefore DSE will be ordered for further risk stratification prior to surgery. Otherwise she has no evidence of CHF or significant valvular abnormality. BP well controlled. "Pending the results of the dobutamine, patient is at an acceptable risk to proceed with upcoming surgery. She can hold Eliquis 3 days prior to surgery and resume once safe from a bleeding standpoint." ( DSE was WNL) History Surgery Operation Date: 11/08/20 08:15 Proposed Procedures p Removal of S1 Screws, Bilateral Iliac [place] Placement - Golden Sanford DO Height/Weight Height: 5 ft 3 in Weight: 54.431 kg Allergies Allergy/AdvReac Type Severity Reaction Status Date / Time dalbavancin Allergy Severe hypotension, Verified 11/01/20 13:16 flushing, tachypnea Medications Home Medications Medication Instructions Recorded Confirmed Last Taken Probiotic 3,000 mmu cells PO QAM 03/30/18 11/01/2010/01/21 06:30 prednisone 1 mg PO QPM 03/30/18 11/01/20 10/01/20 17:00 prednisone 5 mg PO QAM 03/30/18 11/01/20 10/02/20 06:30 cranberry 500 mg PO QPM 09/29/18 11/01/20 2 Weeks Ago ~09/18/20 omeprazole 20 mg PO BID 09/29/18 11/01/20 10/02/20 06:30 Macuvite Eye Care 1 tab PO QAM 10/08/18 11/01/20 2 Weeks Ago ~09/18/20 leg brace #1 ea 02/10/19 11/01/20 Unknown sennosides [Senokot] 17.2 mg PO HS 08/11/19 11/01/20 08/04/20 calcitriol [Rocaltrol] 0.5 mcg PO 2XWK 02/21/20 11/01/20 10/01/20 17:00 docusate sodium 100 mg PO HS PRN 02/21/20 11/01/20 10/01/20 21:00 leflunomide 20 mg tablet 20 mg PO QAM 03/27/20 11/01/20 1 Week Ago ~09/25/20 oxybutynin chloride 5 mg tablet 5 mg PO BID #180 tab 07/09/20 11/01/20 10/01/20 17:00 Calcium 600 + D(3) 1 cap PO BID 07/16/20 11/01/20 10/01/20 17:00 gabapentin 300 mg PO TID 07/16/20 11/01/20 10/02/20 06:30 apixaban 5 mg tablet 5 mg PO BID #180 tab 07/25/20 11/01/20 09/28/20 17:00 ferrous sulfate 325 mg PO DAILY #30 tab 10/08/20 11/01/20 Unknown metoprolol tartrate 50 mg PO BID #60 tab 10/10/20 11/01/20 Unknown oxycodone 5 mg PO Q6H PRN #30 tab 10/10/20 11/01/20 Unknown Past Medical History Medical History Anemia follows with Dr. Thibodeaux, s/p IV iron infusions No recent iron infusion Chronic back pain DDD (degenerative disc disease) GERD (gastroesophageal reflux disease) controlled History of COVID-19 hospitalized 07/16/20 [facility]. hypoxia, fever, cough, chills, loss of taste /smell. pt reports taste/smell still not fully back to normal. History of Hodgkin's lymphoma 2003/under surveillance by PCP/Dr. Thibodeaux- S/p chemo in 2003- none since History of oral cancer s/p tongue excision left side (no chemo/no XRT 2013) No issues since Hypertension Overactive bladder PAF (paroxysmal atrial fibrillation) hx - on Eliquis Paroxysmal SVT (supraventricular tachycardia) hx (follows with Dr. Vance) PONV (postoperative nausea and vomiting) RA (rheumatoid arthritis) on chronic steroid Skin benign neoplasm Vertigo No current issues Past Family History Family History Mother Breast cancer Colorectal cancer Cancer Gastric cancer Aunt Colorectal cancer Other Family history non-contributory Denies family history of Ovarian cancer Prostate cancer Myocardial infarction Past Surgical History Surgical History H/O foot surgery TOES X MULTIPLE H/O parathyroidectomy History of biopsy Of soft tissue of the neck History of breast surgery Puncture aspiration of cyst History of carpal tunnel release RIGHT History of colonoscopy History of colposcopy with cervical biopsy with endocervical curettage History of glossectomy with unilateral radical neck dissection History of hip surgery R/L REVISION Left MAURO revision: 11/09/18: SABx1 at L3-L4 at [facility] History of spinal surgery 10/02/[address] [facility] [address] Sanford History of total hip arthroplasty R/L History of total knee replacement R/L History of tubal ligation Hx of hand surgery RIGHT Hx of knee surgery most recent 02/28/2020 [facility] Right TKA revision, I&D, antibiotic spacer: 12/29/19: SAB + PNB at [facility] S/P revision of total knee 12/29/19 Dr. Ihsan Vela- Right total knee revision, Incision and drainage with antibiotic cement spacer Social History Smoking Status: Never smoker Do You Dip or Chew Tobacco: No Hx Alcohol Use: No Alcohol type: hard liquor alcohol intake frequency: holidays/special occasions only Hx Substance Use: No substance use type: does not use Lab Results Anesthesia Preop Results Results Anesthesia Widget: WBC 8.86 K/uL (4.8-10.8) 10/22/20 Hgb 9.7 g/dL (12.0-16.0) L 10/22/20 Hct 31.7 % (37-47) L 10/22/20 Plt 434 K/uL (130-400) H 10/22/20 Na 136 mmol/L (136-145) 10/22/20 K 4.7 mmol/L (3.5-5.1) 10/22/20 Cl 104 mmol/L (98-107) 10/22/20 CO2 30 mmol/L (21-32) 10/22/20 BUN 11 mg/dl (7-18) 10/22/20 Creat 0.47 mg/dl (0.6-1.2) L 10/22/20 Glucose Level 69 mg/dl (70-99) L 10/22/20 Urine Color Yellow 10/23/20 Urine Appearance Clear (Clear) 10/23/20 Urine pH 6.5 (4.5-7.5) 10/23/20 Urine Specific Frakes 1.009 (1.000-1.030) 10/23/20 Urine Protein Negative (Negative) 10/23/20 Urine Glucose (UA) Negative (Negative) 10/23/20 Urine Ketones Negative (Negative) 10/23/20 Urine Blood Negative (Negative) 10/23/20 Urine Nitrite Negative (Negative) 10/23/20 Urine Bilirubin Negative (Negative) 10/23/20 Urine Urobilinogen Negative (Negative) 10/23/20 Urine Leukocyte Esterase Negative (Negative) 10/23/20 Lab Comments: Anemia stable since lumbar surgery on 10/02/20 Testing Electrocardiogram Date: 10/06/20 Normal sinus rhythm with sinus arrhythmia at 87 bpm. Normal EKG per cardio. Chest X-Ray Date: 09/06/20 Findings: + NAD and + cardiomegaly Chronic interstitial thickening is similar to previous. There is bibasilar scarring/atelectasis. No airspace consolidation or pleural effusion is identified. There is no pneumothorax. Echocardiogram Date: 12/30/19 EF: 60-65% LV Function: normal RWMA: + none Other Findings: + LVH (Mild/concentric) Mild TR. No valvular vegetation. Compared to study dated 06/17/2019no significant changes found. Stress Test Date: 09/28/20 Type: DSE Negative dobutamine stress echo and stress EKG for myocardial ischemia at 90% MPHR. No dobutamine induced chest pain. Baseline echo notes normal LV function. Resting EKG displays normal sinus rhythm with normal ST segments. Mild concentric LVH. No evidence of wall motion abnormalities present. Cervical Spine Date: 09/06/20 Mild anterolisthesis of C3 on C4, and C4 on C5. This finding was present on the prior October 2018 study. The C3 on C4 anterolisthesis is currently visualized only in flexion and reduces in extension. The 3 mm of anterolisthesis of C4 on C5 is currently visualized only in extension.
[~2020-11-08 06:27] MED LIST changes: -ALBUMIN HUMAN 5% 12.5 GM/250 ML VIAL IV ONE
[2020-11-08] MEDS ORDERED: MIDAZOLAM HCL 1 MG/ML 2ML VIAL ONE (07:13)
[2020-11-08] MEDS ORDERED: fentaNYL citrate 100 MCG/2 ML VIAL ONE (07:13)
[2020-11-08] MEDS ORDERED: DEXAMETHASONE SOD INJ 4 MG/ML VIAL ONE (07:31)
[2020-11-08] MEDS ORDERED: LIDOCAINE HCL 2% 2 ML VIAL/AMP(20MG/ML) INFIL ONE (07:31)
[2020-11-08] MEDS ORDERED: ONDANSETRON INJ 2 MG/ML 2 ML VIAL ONE (07:31)
[2020-11-08] MEDS ORDERED: ROCURONIUM BROMIDE 10 MG/ML 5 ML VIAL IV ONE ×2 (07:31→09:38)
[2020-11-08] MEDS ORDERED: PROPOFOL IV EMULSION 10 MG/ML 20 ML VIAL IV ONE (07:31)
--- NOTE | 2020-11-08 07:40 | History & Physical Bridge Note ---
Date of Service November 08, 2020 History & Physical Bridge Note I have examined the patient, reviewed the History & Physical and in the interval since the performance of the History & Physical I have noted the following changes of clinical significance: no changes noted
--- NOTE | 2020-11-08 07:52 | History & Physical Report ---
Date of Service November 08, 2020 Assessment & Plan (1) Closed fracture of coccyx: Admission and Anticipated Discharge Date Admission Date: Removal of S1 pedicle screws with placement of iliac bolts History of Present Illness Chief Complaint: Back pain Primary Care Provider: Sylvia Nails MD This is a 70-year-old female known to me that has a sacral fracture and is here for fixation. Allergies Allergy/AdvReac Type Severity Reaction Status Date / Time dalbavancin Allergy Severe hypotension, Verified 11/08/20 07:02 flushing, tachypnea Home Medications Medication Instructions Recorded Confirmed Type Probiotic 3,000 mmu cells PO QAM 03/30/18 11/08/20 History prednisone 1 mg PO QPM 03/30/18 11/08/20 History prednisone 5 mg PO QAM 03/30/18 11/08/20 History cranberry 500 mg PO QPM 09/29/18 11/08/20 History omeprazole 20 mg PO BID 09/29/18 11/08/20 History Mac[facility] 1 tab PO QAM 10/08/18 11/08/20 History leg brace #1 ea 02/10/19 11/01/20 Rx calcitriol [Rocaltrol] 0.5 mcg PO 2XWK 02/21/20 11/08/20 History docusate sodium 100 mg PO HS PRN 02/21/20 11/08/20 History leflunomide 20 mg tablet 20 mg PO QAM 03/27/20 11/08/20 History oxybutynin chloride 5 mg tablet 5 mg PO BID #180 tab 07/09/20 11/08/20 Rx Calcium 600 + D(3) 1 cap PO BID 07/16/20 11/08/20 History gabapentin 300 mg PO TID 07/16/20 11/08/20 History apixaban 5 mg tablet 5 mg PO BID #180 tab 07/25/20 11/08/20 Rx metoprolol tartrate 50 mg PO BID #60 tab 10/10/20 11/08/20 Rx hydrocodone-acetaminophen 1 cap PO Q4-5H PRN 11/08/20 11/08/20 History hydroxychloroquine [Plaquenil] 200 mg PO BID 11/08/20 11/08/20 History Past Med/Surg History Medical History Anemia follows with Dr. Thibodeaux, s/p IV iron infusions No recent iron infusion Chronic back pain DDD (degenerative disc disease) GERD (gastroesophageal reflux disease) controlled History of COVID-19 hospitalized 07/16/20 [facility]. hypoxia, fever, cough, chills, loss of taste/smell. pt reports taste/smell still not fully back to normal. History of Hodgkin's lymphoma 2003/under surveillance by PCP/Dr. Thibodeaux- S/p chemo in 2003- none since History of oral cancer s/p tongue excision left side (no chemo/no XRT 2013) No issues since Hypertension Overactive bladder PAF (paroxysmal atrial fibrillation) hx - on Eliquis Paroxysmal SVT (supraventricular tachycardia) hx (follows with Dr. Vance) PONV (postoperative nausea and vomiting) RA (rheumatoid arthritis) on chronic steroid Skin benign neoplasm Vertigo No current issues Surgical History H/O foot surgery TOES X MULTIPLE H/O parathyroidectomy History of biopsy Of soft tissue of the neck History of breast surgery Puncture aspiration of cyst History of carpal tunnel release RIGHT History of colonoscopy History of colposcopy with cervical biopsy with endocervical curettage History of glossectomy with unilateral radical neck dissection History of hip surgery R/L REVISION Left MAURO revision: 11/09/18: SABx1 at L3-L4 at [facility] History of spinal surgery 10/02/[address] [facility] [address] Sanford History of total hip arthroplasty R/L History of total knee replacement R/L History of tubal ligation Hx of hand surgery RIGHT Hx of knee surgery most recent 02/28/2020 [facility] Right TKA revision, I&D, antibiotic spacer: 12/29/19: SAB + PNB at [facility] S/P revision of total knee 12/29/19 Dr. Ihsan Vela- Right total knee revision, Incision and drainage with antibiotic cement spacer Family History Mother Breast cancer Colorectal cancer Cancer Gastric cancer Aunt Colorectal cancer Other Family history non-contributory Denies family history of Ovarian cancer Prostate cancer Myocardial infarction Social History Smoking Status: Never smoker Second Hand Exposure: No; Do You Dip or Chew Tobacco: No; Hx Alcohol Use: No Hx Substance Use: No Preferred Language: Dutch Communication Ability: Effective Visual Impairment: Limited 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: Normal Signal Maintainer Required: No Beliefs That Will Affect Care: None marital status: Current Living Situation: Spouse current occupational status: retired Feels Safe at Home: Yes Safety Concerns: Feels Safe At This Time Childhood Exposure to Second-Hand Smoke: Yes caffeine: Yes Dental Care, Regularly: Yes Physical Activity Frequency: Other Physical Activity Frequency Comment: Limited by a physical condition Seatbelt Use: always Sunscreen Use: Yes Assistive Devices: Glasses and Walker Physical Exam Physical Exam: Patient is alert and oriented Heart regular in rhythm Lungs clear to auscultation Results & Data ([facility]) Vital Signs (Past 12 Hours) Vital Signs Temp Pulse Resp BP Pulse Ox 11/08/20 07:11 36.8 C 79 18 168/79 H 100
[2020-11-08] MEDS ORDERED: ONDANSETRON INJ 2 MG/ML 2 ML VIAL IV PRN ×2 (08:15→11:08)
[2020-11-08] MEDS ORDERED: PROMETHAZINE HCL 6.25 MG in SODIUM CHLORIDE 0.9% 50 ML IV PRN (08:15)
[2020-11-08] MEDS ORDERED: ATROPINE SULFATE 0.1 MG/ML 10ML SYR IV PRN (08:15)
[2020-11-08] MEDS ORDERED: fentaNYL citrate 100 MCG/2 ML VIAL IV PRN (08:15)
[2020-11-08] MEDS ORDERED: ePHEDrine sulfate 50 MG/ML AMP IV PRN (08:15)
[2020-11-08] MEDS ORDERED: BUPIVACAINE/EPINEPHRINE 0.5% MPF 1:200,000 30 ML VIAL ONE (08:18)
[2020-11-08] MEDS ORDERED: VANCOMYCIN HCL 1000MG/20ML VIAL ONE (08:55)
[2020-11-08] MEDS ORDERED: GENTAMICIN SULFATE 40 MG/ML 2 ML VIAL ONE (08:55)
[2020-11-08] MEDS ORDERED: FLOSEAL HEMOSTATIC MATRIX 10ML TOP ONE (09:01)
[2020-11-08] MEDS ORDERED: ePHEDrine sulfate 50 MG/ML SYR ONE (09:38)
[2020-11-08] MEDS ORDERED: PHENYLEPHRINE 100MCG/ML 5ML SYR ONE (09:38)
[2020-11-08] MEDS ORDERED: HYDROmorphone INJ 2 MG/ML SYR/VIAL ONE (09:43)
--- NOTE | 2020-11-08 09:48 | Fluoroscopy Report ---
INTRAOPERATIVE RADIOGRAPHS CLINICAL HISTORY: Iliac bolt placement. Fluoroscopy time: 23 seconds. FINDINGS: 2 spot fluoroscopic views of the lumbosacral spine are presented. Fusion hardware is noted in the lower lumbar spine with interpedicular screws seen at L4 and L5. Bilateral iliac bolts are jigna jesica. Hip arthroplasties are partially visualized. IMPRESSION: Intraoperative views of the lumbosacral spine as above. Electronically signed by: Geremias Avila M.D. 11/08/2020 9:47 AM
--- NOTE | 2020-11-08 09:51 | Operative Report ---
Post Operative Report Pre & Post Diagnosis Operation Date: 11/08/20 08:15 Pre-Op Diagnosis: Minimally Displaced Zone I Fracture of Sacrum Post-Op Diagnosis: Minimally Displaced Zone I Fracture of Sacrum I identified the patient and participated in the time-out.: Yes Procedure Operation Date: 11/08/20 08:15 Actual Procedures #1 Removal of bilateral S1 pedicle screws. #2 placement of bilateral iliac bolts. #3 bilateral open SI joint fusions. #4 placement of destructive sponge, master graft in the bilateral SI joints. Surgeon Golden Sanford DO Steno Typist Junaa Salinas Estimated Blood Loss 150 Findings Consistent with Post-Op Diagnosis Specimens None Indications This is a 68-year-old female who presents with above-mentioned diagnosis and is here for surgical stabilization of the fracture. Description of Procedure Patient met with identified informed consent obtained. Patient was then taken to the operative suite underwent ablation placed in a prone position the James table on top of the Nelson frame. All bony prominences well-padded eyes inspected to ensure there is no external perspective on the. This point the therapy lumbar spine was prepped and draped in a sterile fashion. Utilizing the previous incision site sharp dissection formed down to and exposing instrumentation from L2-S1 as well as bilateral SI joints and medial aspect of the iliac crest. I explored the instrumentation all screws were well fixed without evidence of loosening. I then proceeded to move the bilateral S1 pedicle screws. Then with the assistance of fluoroscopy bilateral iliac bolts were placed. There were then attached to the distal aspect of the pre-existing kathryn. Once they were locked in position I curetted and burred out the bilateral SI joints and placed infuse collagen sponge and master graft in the bilateral SI joints. The incision was then copiously irrigated and approximate 10 cc of stimulant beads impregnated with gentamicin and vancomycin were placed out the incision. 15 round COMFORT drain inserted. The incision was then closed with 1 Vicryl fascia 2-0 Vicryl subcutaneously and 4 Monocryl for final skin closure. Steri-Strip sterile dressing placed. Patient will continue PACU stable condition. Please note Juana Salinas was present at the entire surgery involved the patient positioning complex portions of the surgery and final skin closure. I attest to the content of the Intraoperative Record and any orders documented therein. Any exceptions are noted below.
[2020-11-08] MEDS ORDERED: DO NOT ADMINISTER FLU VACCINE PRN (11:08)
[2020-11-08] MEDS ORDERED: HYDROmorphone INJ 0.5 MG/0.5 ML SYR IV PRN (11:08)
[2020-11-08] MEDS ORDERED: ONDANSETRON 4 MG OD TAB PO PRN (11:08)
[2020-11-08] MEDS ORDERED: DO NOT ADMINISTER PNEUMOCOCCAL VACCINE PRN (11:08)
[2020-11-08] MEDS ORDERED: SOD PHOSPHATE/SOD BIPHOSPHATE ENEMA 132 ML BTL PR PRN (11:08)
[2020-11-08] MEDS ORDERED: DOCUSATE SODIUM 100 MG CAP PO PRN (11:08)
[2020-11-08] MEDS ORDERED: hydrOXYzine HCl 25 MG TAB PO PRN (11:08)
[2020-11-08] MEDS ORDERED: NALOXONE HCL 0.4 MG/1 ML VIAL/CARP IV PRN (11:08)
[2020-11-08] MEDS ORDERED: diphenhydrAMINE Capsule 25 MG CAP PO PRN (11:08)
[2020-11-08] MEDS ORDERED: MAGNESIUM HYDROXIDE SUSP 30 ML UDC PO PRN (11:08)
[2020-11-08] MEDS ORDERED: FAMOTIDINE 20 MG TAB PO PRN (11:08)
[2020-11-08] MEDS ORDERED: ACETAMINOPHEN 1,000 MG/100 ML VIAL IV PRN (11:08)
[2020-11-08] MEDS ORDERED: ALUMINUM/MAGNESIUM SUSP 30 ML UDC PO PRN (11:08)
[2020-11-08] MEDS ORDERED: PROMETHAZINE HCL 12.5 MG in SODIUM CHLORIDE 0.9% 50 ML IV PRN (11:08)
[2020-11-08] MEDS ORDERED: LORazepam 0.5 MG/1 ML VIAL IV PRN (11:08)
[2020-11-08] MEDS ORDERED: bisacodyL 10 MG SUPP PR PRN (11:08)
[2020-11-08] MEDS ORDERED: METOCLOPRAMIDE HCL INJ 5 MG/ML 2 ML VIAL IV PRN (11:08)
--- NOTE | 2020-11-08 11:28 | Hospitalist Consultation ---
Date of Consultation November 08, 2020 Assessment & Plan (1) Closed fracture of coccyx: Status post surgical repair by Dr. Sanford with: #1 Removal of bilateral S1 pedicle screws. #2 placement of bilateral iliac bolts. #3 bilateral open SI joint fusions. #4 placement of destructive sponge, master graft in the bilateral SI joints. 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: On chronic prednisone 5 mg morning 1 mg in the evening-this is order for here Consider stress dose steroids if has any difficulty with nausea/vomiting or hypotension (5) Rheumatoid arthritis: Continue prednisone, but her diesel mechanic apprentice instructed her to hold leflunomide, hydroxychloroquine both for 1 week before and 1 week after surgery (6) Hypertension: Blood pressures controlled Continue home metoprolol (7) Anemia: Follow CBC postoperatively tomorrow Supposed to be on ferrous sulfate but on hold for now which is fine case has nausea (8) PAF (paroxysmal atrial fibrillation): With a history of such, is in sinus rhythm based on examination here and on EKG from 2 weeks ago Eliquis is on hold postoperatively-restart soon as okay with orthopedic spine surgeon Continue metoprolol (9) DVT prophylaxis: SCDs Disposition-continued stay medical/surgical floor Hospitalist service will follow along. History of Present Illness Reason for Consultation: Postoperative medical management Requesting Physician: Dr. Sanford Attending Physician: Golden Sanford, History of Present Illness This patient is a 70-year-old female with a history of lumbar spinal stenosis status post recent T12-S1 lumbar decompression/fusion, rheumatoid arthritis on chronic prednisone/hydroxychloroquine/leflunomide, HTN, GERD, paroxysmal atrial fibrillation on Eliquis, chronic anemia, and remote Hodgkin's lymphoma, oral cancer, who is admitted now status post repair of a sacral fracture by Dr. Sanford. Patient is feeling drowsy but otherwise feels okay, not really much pain and has not moved around since returning to the floor after surgery. She denies any chest pain or shortness of breath, no heart palpitations, no nausea or vomiting, no abdominal pain. Allergies Allergy/AdvReac Type Severity Reaction Status Date / Time dalbavancin Allergy Severe hypotension, Verified 11/08/20 07:02 flushing, tachypnea Home Medications Medication Instructions Recorded Confirmed Type Probiotic 3,000 mmu cells PO QAM 03/30/18 11/08/20 History prednisone 1 mg PO QPM 03/30/18 11/08/20 History prednisone 5 mg PO QAM 03/30/18 11/08/20 History cranberry 500 mg PO QPM 09/29/18 11/08/20 History omeprazole 20 mg PO BID 09/29/18 11/08/20 History Macuvite Eye Care 1 tab PO QAM 10/08/18 11/08/20 History leg brace #1 ea 02/10/19 11/01/20 Rx calcitriol [Rocaltrol] 0.5 mcg PO 2XWK 02/21/20 11/08/20 History docusate sodium 100 mg PO HS PRN 02/21/20 11/08/20 History leflunomide 20 mg tablet 20 mg PO QAM 03/27/20 11/08/20 History oxybutynin chloride 5 mg tablet 5 mg PO BID #180 tab 07/09/20 11/08/20 Rx Calcium 600 + D(3) 1 cap PO BID 07/16/20 11/08/20 History gabapentin 300 mg PO TID 07/16/20 11/08/20 History apixaban 5 mg tablet 5 mg PO BID #180 tab 07/25/20 11/08/20 Rx metoprolol tartrate 50 mg PO BID #60 tab 10/10/20 11/08/20 Rx hydrocodone-acetaminophen 1 cap PO Q4-5H PRN 11/08/20 11/08/20 History hydroxychloroquine [Plaquenil] 200 mg PO BID 11/08/20 11/08/20 History Patient History Medical History Anemia follows with Dr. Thibodeaux, s/p IV iron infusions No recent iron infusion Chronic back pain DDD (degenerative disc disease) GERD (gastroesophageal reflux disease) controlled History of COVID-19 hospitalized 07/16/20 [facility]. hypoxia, fever, cough, chills, loss of taste/smell. pt reports taste/smell still not fully back to normal. History of Hodgkin's lymphoma 2003/under surveillance by PCP/Dr. Thibodeaux- S/p chemo in 2003- none since History of oral cancer s/p tongue excision left side (no chemo/no XRT 2013) No issues since Hypertension Overactive bladder PAF (paroxysmal atrial fibrillation) hx - on Eliquis Paroxysmal SVT (supraventricular tachycardia) hx (follows with Dr. Vance) PONV (postoperative nausea and vomiting) RA (rheumatoid arthritis) on chronic steroid Skin benign neoplasm Vertigo No current issues Surgical History H/O foot surgery TOES X MULTIPLE H/O parathyroidectomy History of biopsy Of soft tissue of the neck History of breast surgery Puncture aspiration of cyst History of carpal tunnel release RIGHT History of colonoscopy History of colposcopy with cervical biopsy with endocervical curettage History of glossectomy with unilateral radical neck dissection History of hip surgery R/L REVISION Left MAURO revision: 11/09/18: SABx1 at L3-L4 at [facility] History of spinal surgery 10/02/20 [facility] Dr. Sanford History of total hip arthroplasty R/L History of total knee replacement R/L History of tubal ligation Hx of hand surgery RIGHT Hx of knee surgery most recent 02/28/2020 [facility] Right TKA revision, I&D, antibiotic spacer: 12/29/19: SAB + PNB at [facility] S/P revision of total knee 12/29/19 Dr. Ihsan Vela- Right total knee revision, Incision and drainage with antibiotic cement spacer Family History Mother Breast cancer Colorectal cancer Cancer Gastric cancer Aunt Colorectal cancer Other Family history non-contributory Denies family history of Ovarian cancer Prostate cancer Myocardial infarction Social History Smoking Status: Never smoker Second Hand Exposure: No; Do You Dip or Chew Tobacco: No; Hx Alcohol Use: No Hx Substance Use: No Preferred Language: Czech Communication Ability: Effective Visual Impairment: Limited 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: Normal Ditch Repairer Required: No Beliefs That Will Affect Care: None marital status: Current Living Situation: Spouse current occupational status: retired Feels Safe at Home: Yes Safety Concerns: Feels Safe At This Time Childhood Exposure to Second-Hand Smoke: Yes caffeine: Yes Dental Care, Regularly: Yes Physical Activity Frequency: Other Physical Activity Frequency Comment: Limited by a physical condition Seatbelt Use: always Sunscreen Use: Yes Assistive Devices: Glasses and Walker Review of Systems Review of Systems: All systems reviewed & are unremarkable except as noted in HPI & below Physical Exam Constitutional: WD/WN, vitals as above Eyes: + anicteric sclerae ENMT: external ear and nose normal, oropharynx normal Mouth: + lip abnormality (Small bruise and superficial laceration of upper mid lip) Neck: trachea midline, no thyromegaly Respiratory: normal respiratory effort, lungs clear to auscultation Cardiovascular: RRR, no murmur, no edema Chest (Breasts): Chest: normal inspection of chest Gastrointestinal (Abdomen): normal bowel sounds, soft, nontender, no hepatosplenomegaly Musculoskeletal: Extremities: + extremities abnormal to inspection (Bilateral hand deformities with ulnar deviation), no cyanosis and no clubbing Skin: no rashes, warm and dry Neurologic: awake; no focal motor deficits Can dorsiflex and plantarflex ankles and toes, moving bilateral upper extremities well Psychiatric: A+Ox3, euthymic affect Lymphatic: no lymphedema Results & Data Results & Data ([facility]) Vital Signs (Past 12 Hours) Vital Signs Temp Pulse Pulse Pulse Resp BP Pulse Ox 11/08/20 10:55 36.9 C 76 14 131/69 97 11/08/20 10:35 36.6 C 78 20 140/68 97 11/08/20 10:25 80 14 160/69 H 100 11/08/20 10:15 79 20 161/66 H 100 11/08/20 10:08 36.1 C L 87 18 159/69 H 100 11/08/20 07:11 36.8 C 79 18 168/79 H 100 Laboratory Results No recent laboratory results except from 2 weeks ago when she was in the hospital which showed anemia PG Care Time/CCT Total # of Minutes Spent Total Time Spent with Patient: Total time spent is greater than 50% in coordination of care (as documented) at patient's floor/unit and/or counseling patient: Coding Level of Care Code 20352 Inpt Consult Level 3 Diagnoses Closed fracture of coccyx S32.2XXA Osteoporosis, unspecified M81.0 Chronic reflux esophagitis 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
--- NOTE | 2020-11-08 11:58 | Anesthesiology Progress Note ---
Date of Service November 08, 2020 Anesthesia Post Procedure Vital Signs Vital Signs: Temp Pulse Pulse Pulse Resp BP Pulse Ox 11/08/20 11:25 36.5 C 77 14 126/67 99 11/08/20 10:55 36.9 C 76 14 131/69 97 11/08/20 10:35 36.6 C 78 20 140/68 97 11/08/20 10:25 80 14 160/69 H 100 11/08/20 10:15 79 20 161/66 H 100 11/08/20 10:08 36.1 C L 87 18 159/69 H 100 11/08/20 07:11 36.8 C 79 18 168/79 H 100 Pain Intensity Right Back: Pain Intensity: 0 Transfer of Care Handoff Completed per policy Notes Mental Status: alert / awake / arousable Patient Amnestic to Procedure: Yes Nausea / Vomiting: adequately controlled Pain: adequately controlled Airway Patency, RR, SpO2: stable & adequate BP & HR: stable & adequate Hydration State: stable & adequate Anesthetic Complications: no major complications apparent and see Notes below Notes: cut on lip from manipulation of mouth prior to laryngoscopy (cut came from gentle manipulation with residential framing carpenter finger). Patient has very fragile skin. Lip dressed with lubricating ointment.
[2020-11-08] MEDS: GABAPENTIN 300 MG CAP PO SCH ×2 (13:14→20:11)
[2020-11-08] MEDS: dexAMETHasone 6 MG in SYRINGE 0 ML IV SCH ×2 (13:15→20:09)
[2020-11-08] MEDS: SODIUM CHLORIDE 0.9% 1000ML 1,000 ML IV SCH (16:15)
[2020-11-08] MEDS: ceFAZolin 1000MG 1,000 MG/7.5 ML SYR IV SCH ×2 (16:15→23:16)
[2020-11-08] MEDS: METOPROLOL TARTRATE 50 MG TAB PO SCH (20:10)
[2020-11-08] MEDS: predniSONE 1 MG TAB PO SCH (20:11)
[2020-11-08] MEDS: CALCIUM 600MG + VIT D 400 IU TAB PO SCH (20:11)
[2020-11-08] MEDS: OXYBUTYNIN CHLORIDE 5 MG TAB PO SCH (20:11)
[2020-11-08] MEDS: PANTOprazole 40 MG TAB PO SCH (20:12)
[2020-11-08] MEDS: DOCUSATE SODIUM/SENNA 50/8.6MG TAB PO SCH (20:16)
[2020-11-08] MEDS ORDERED: NON-FORMULARY MEDICATION (Cranberry 500 mg Capsule) PO SCH (21:00)
[2020-11-08] MEDS ORDERED: HYDROXYCHLOROQUINE SULFATE 200 MG TAB PO SCH (21:00)
[2020-11-09] MEDS: SODIUM CHLORIDE 0.9% 1000ML 1,000 ML IV SCH (05:01)
[2020-11-09] MEDS: dexAMETHasone 6 MG in SYRINGE 0 ML IV SCH (05:01)
[2020-11-09] MEDS: POLYETHYLENE (MIRALAX) 17 GM PACK PO SCH ×4 (05:02→23:11)
[2020-11-09 05:35] LABS: Hematocrit (blood only) 29.1 % (37-47); Immature Granulocytes # (auto) 0.04 K/uL (0.00-0.02); Immature Granulocytes % (auto) 0.4 %; Lymphocytes % (auto) 5.5 %; Mean Corpuscular Hemoglobin 25.6 pg (25-34); Mean Corpuscular Hgb Conc 30.9 g/dL (32-36); Mean Corpuscular Volume 82.7 fL (80-100); Mean Platelet Volume 8.2 fL (7.4-10.4); Monocytes # (auto) 0.42 K/uL (0.11-0.59); Monocytes % (auto) 3.9 %; Neutrophils # (auto) 9.76 K/uL (1.4-6.5); Neutrophils % (auto) 90.2 %; Platelet Count 363 K/uL (130-400); RDW Coefficient of Variation 18.7 % (11.5-14.5); RDW Standard Deviation 53.8 fL (36.4-46.3); Red Blood Count 3.52 M/uL (4.2-5.4); White Blood Count 10.82 K/uL (4.8-10.8)
[2020-11-09 05:51] LABS: BUN Creatinine Ratio 31.1 (10-20); Calcium 8.4 mg/dl (8.5-10.1); Creatinine Clr Calc Pharmacy 93.5 ml/min; Est GFR (Non-African American) 100.1; Potassium 4.9 mmol/L (3.5-5.1)
[2020-11-09] MEDS: CEROVITE ADV FORMULA TAB PO SCH (07:44)
[2020-11-09] MEDS: LACTOBACILLUS ACIDOPHILUS 1 GM PACK PO SCH (07:44)
[2020-11-09] MEDS: OXYBUTYNIN CHLORIDE 5 MG TAB PO SCH ×2 (07:44→22:25)
[2020-11-09] MEDS: predniSONE 5 MG TAB PO SCH (07:45)
[2020-11-09] MEDS: GABAPENTIN 300 MG CAP PO SCH ×3 (07:45→22:24)
[2020-11-09] MEDS: PANTOprazole 40 MG TAB PO SCH ×2 (07:45→22:23)
[2020-11-09] MEDS: METOPROLOL TARTRATE 50 MG TAB PO SCH ×2 (07:45→22:23)
[2020-11-09] MEDS: CALCIUM 600MG + VIT D 400 IU TAB PO SCH ×2 (07:45→22:24)
[2020-11-09] MEDS: CALCITRIOL 0.25 MCG CAPSULE PO SCH (07:45)
[2020-11-09] MEDS: oxyCODONE HCL IR 5 MG TAB (IMMEDIATE RELEASE) PO PRN ×2 (09:28→22:22)
--- NOTE | 2020-11-09 12:05 | Orthopedic Progress Note ---
Date of Service November 09, 2020 Assessment & Plan (1) Closed fracture of coccyx: Admission and Anticipated Discharge Date Admission Date: November 08, 2020 This time we will continue bed to chair with ambulation in the room. She is to limit lifting to 5 pounds. To be very guarded with transitions. We will assess her progress throughout the weekend and consider home with home health versus rehab early next week. Subjective Patient's pain is markedly improved. She has no leg pain. Physical Exam Physical Exam: On exam she is in the chair at the bedside. Is good strength testing. Appears comfortable. Results & Data ([facility]) Vital Signs (Past 12 Hours) Vital Signs Temp Pulse Resp BP Pulse Ox 11/09/20 12:00 36.6 C 75 16 120/71 99 11/09/20 07:21 36.4 C L 76 16 162/72 H 99 11/09/20 03:30 36.3 C L 87 16 158/82 H 98
--- NOTE | 2020-11-09 20:18 | Hospitalist Progress Note ---
Date of Service November 09, 2020 Assessment & Plan (1) Closed fracture of coccyx: surgical repair by Dr. Sanford, POD #1, s/p -- #1 Removal of bilateral S1 pedicle screws. #2 placement of bilateral iliac bolts. #3 bilateral open SI joint fusions. #4 placement of destructive sponge, master graft in the bilateral SI joints. 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 For rheumatoid arthritis. s/p 3 doses of IV dexamethasone since surgery. no signs/symptoms of addisonian crisis. continue home steroid regimen. (3) Acute blood loss anemia: over last 1-2 years her baseline Hb is about 10. she has had about a 1gm drop since the surgery. will repeat CBC in am. ferritin level in 04/2020 was 20 c/w severe iron deficiency. she has troubles taking oral Fe. while hospitalized consider 1-2 doses of IV venofer. (4) Iron deficiency anemia: see above strongly consider IV venofer while here cbc am (5) Osteoporosis, unspecified: Continue calcitriol, calcium plus vitamin D (6) Chronic reflux esophagitis: Continue PPI (7) Rheumatoid arthritis: Continue prednisone Per her production control planner HOLD leflunomide and hydroxychloroquine both for 1 week post-surgery no active flare (8) Hypertension: Blood pressures largely controlled/acceptable Continue home metoprolol (9) PAF (paroxysmal atrial fibrillation): Eliquis is on hold postoperatively -- restart when permissible with orthopedic spine surgeon Continue metoprolol on exam today was having extra beats only (10) DVT prophylaxis: SCDs for now Admission and Anticipated Discharge Date Admission Date: November 08, 2020 Subjective patient eating her meal during my visit I had seen Ms Esparza during her previous hospital stay for lumbar back surgery and today she looks TREMENDOUSLY better than the previous hospitalization she c/o mild back pain but much better than pre-op no nausea, emesis, abd pain no cp no dyspnea mental status sharp today interestingly she reports remembering "nothing from my last stay" (she remembers getting in the litter to go to [facility] for her rehab only!) Review of Systems Constitutional: no fatigue and no anorexia Respiratory: no cough, no dyspnea and no dyspnea on exertion Cardiovascular: no chest pain Gastrointestinal: no abdominal pain Physical Exam Constitutional: + thin; no acute distress and no altered mental status ENMT: external ear and nose normal, oropharynx normal Respiratory: normal respiratory effort, lungs clear to auscultation Cardiovascular: Rate/Rhythm: regular rate and regular rhythm Heart Sounds: normal S1, normal S2 and + murmur Vessels: posterior tibial pulses present and dorsalis pedis pulses present; no JVD Extremities: no edema Gastrointestinal (Abdomen): normal bowel sounds, soft, nontender, no hepatosplenomegaly Musculoskeletal: dressings and drain in place over l-spine Skin: + pallor Psychiatric: A+Ox3, euthymic affect Results & Data Results & Data ([facility]) Vital Signs (Past 12 Hours) Vital Signs Temp Pulse Resp BP Pulse Ox 11/09/20 14:27 36.3 C L 76 16 129/75 100 11/09/20 12:00 36.6 C 75 16 120/71 99 Laboratory Results Laboratory Results - last 24 hr 11/09/20 11/09/20 05:23 05:23 WBC 10.82 H RBC 3.52 L Hgb 9.0 L Hct 29.1 L MCV 82.7 MCH 25.6 MCHC 30.9 L RDW Std Deviation 53.8 H RDW Coeff of Jravis 18.7 H Plt Count 363 MPV 8.2 Immature Gran % (Auto) 0.4 Neut % (Auto) 90.2 Lymph % (Auto) 5.5 Jessamine % (Auto) 3.9 Eos % (Auto) 0.0 Baso % (Auto) 0.0 Neut # (Auto) 9.76 H Lymph # (Auto) 0.60 L Jessamine # (Auto) 0.42 Eos # (Auto) 0.00 Baso # (Auto) 0.00 Immature Gran # (Auto) 0.04 H Sodium 143 Potassium 4.9 Chloride 115 H Carbon Dioxide 25 Anion Gap 3.0 BUN 14 Creatinine 0.45 L Est Cr Clr Drug Dosing 93.5 Est GFR ( Amer) 116.0 Est GFR (Non-Af Amer) 100.1 BUN/Creatinine Ratio 31.1 H Glucose 139 H Calcium 8.4 L PG Care Time/CCT Total # of Minutes Spent Total Time Spent with Patient: Total time spent is greater than 50% in coordination of care (as documented) at patient's floor/unit and/or counseling patient: Coding Level of Care Code 58991 Subseq Hosp Care Lvl 2 Diagnoses Closed fracture of coccyx S32.2XXA 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
[2020-11-09] MEDS: predniSONE 1 MG TAB PO SCH (22:23)
[2020-11-09] MEDS: DOCUSATE SODIUM/SENNA 50/8.6MG TAB PO SCH (22:23)
[2020-11-10] MEDS: POLYETHYLENE (MIRALAX) 17 GM PACK PO SCH ×3 (05:14→18:06)
[2020-11-10 06:23] LABS: Hematocrit (blood only) 27.4 % (37-47); Hemoglobin 8.5 g/dL (12.0-16.0); Mean Corpuscular Hemoglobin 26.1 pg (25-34); Mean Platelet Volume 8.7 fL (7.4-10.4); Platelet Count 370 K/uL (130-400); RDW Coefficient of Variation 19.3 % (11.5-14.5); RDW Standard Deviation 57.5 fL (36.4-46.3); Red Blood Count 3.26 M/uL (4.2-5.4); White Blood Count 11.17 K/uL (4.8-10.8)
[2020-11-10 06:43] LABS: BUN Creatinine Ratio 33.6 (10-20); Creatinine Clr Calc Pharmacy 97.8 ml/min; Est GFR (African American) 117.8; Est GFR (Non-African American) 101.6; Magnesium 2.1 mg/dl (1.8-2.4); Potassium 4.4 mmol/L (3.5-5.1)
--- NOTE | 2020-11-10 08:18 | Orthopedic Progress Note ---
Date of Service November 10, 2020 Assessment & Plan (1) Closed fracture of coccyx: At this point the patient is progressing nicely. She has been up and walking with physical therapy. We will continue with pain control GI and DVT prophylaxis. We will have her work with physical therapy. Likely get her to a rehab facility early next week. Admission and Anticipated Discharge Date Admission Date: November 08, 2020 Subjective Patient was seen bedside in room 307. She is doing well this morning. Her pain is well controlled. She is not currently having any radicular complaints. She denies any other numbness, tingling, or paresthesias. Physical Exam Physical Exam: On exam she is sitting comfortably in her chair. She is alert and oriented. Her lower extremity motor exam reveals no focal atrophy strength and sensation both intact her gait was not observed. Her dressing is clean dry and intact. Her calves are supple nontender abdomen supple and nontender. Results & Data ([facility]) Vital Signs (Past 12 Hours) Vital Signs Temp Pulse Resp BP BP Pulse Ox 11/10/20 07:14 36.3 C L 81 16 157/72 H 100 11/09/20 22:05 36.8 C 79 16 152/72 H 99
[2020-11-10] MEDS: oxyCODONE HCL IR 5 MG TAB (IMMEDIATE RELEASE) PO PRN ×2 (08:34→19:52)
[2020-11-10] MEDS: LACTOBACILLUS ACIDOPHILUS 1 GM PACK PO SCH (08:35)
[2020-11-10] MEDS: CEROVITE ADV FORMULA TAB PO SCH (08:35)
[2020-11-10] MEDS: GABAPENTIN 300 MG CAP PO SCH ×3 (08:35→19:55)
[2020-11-10] MEDS: PANTOprazole 40 MG TAB PO SCH ×2 (08:35→19:54)
[2020-11-10] MEDS: OXYBUTYNIN CHLORIDE 5 MG TAB PO SCH ×2 (08:36→19:55)
[2020-11-10] MEDS: CALCIUM 600MG + VIT D 400 IU TAB PO SCH ×2 (08:36→19:55)
[2020-11-10] MEDS: predniSONE 5 MG TAB PO SCH (08:36)
[2020-11-10] MEDS: METOPROLOL TARTRATE 50 MG TAB PO SCH ×2 (08:44→19:56)
--- NOTE | 2020-11-10 09:34 | Hospitalist Progress Note ---
Date of Service November 10, 2020 Assessment & Plan (1) Closed fracture of coccyx: POD #2, s/p -- #1 Removal of bilateral S1 pedicle screws. #2 placement of bilateral iliac bolts. #3 bilateral open SI joint fusions. #4 placement of destructive sponge, master graft in the bilateral SI joints with Dr. Sanford on 11/08. EBL 150cc Pain control, bowel regimen, dispo as per orthopedic surgery patient received dexamethasone x 3 doses post-op for stress dose purposes no signs of addisonian crisis h/h 8.11/29.4 today * EBL from surgery 150cc * COMFORT 275cc+90cc * iron stores continue to be low (Iron 32, Transferrin 180) * -- given IV Venofer today (11/10) and will repeat again tomorrow. 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 For rheumatoid arthritis. s/p 3 doses of IV dexamethasone since surgery. no signs/symptoms of addisonian crisis. continue home steroid regimen. (3) Acute blood loss anemia: over last 1-2 years her baseline Hb is about 10. she has had about a 1.2gm drop since the surgery. h/h .11/29.4 -- acute blood loss from surgery as well as dilutional from IVF she has troubles taking oral Fe. (sent during last admission) ferritin level in 04/2020 was 20 c/w severe iron deficiency. Iron stores continue to be low (Iron 32, Transferrin 180) -- given IV Venofer today (11/10) and will repeat again tomorrow. 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 Pain drastically improved since surgery. Did have issues with oral iron and metallic taste but did not have any issues with IV Venofer this morning. Will repeat again tomorrow and possibly Thursday prior to d/c if remains inpatient. Moved bowel day of surgery but not since. Passing gas. Getting bowel regimen. Working on therapy but plans on home health through [facility] if [facility] unable to take as she would not like another facility. No fever, chills, chest pain, shortness of breath, abdominal pain, nausea, vomiting. Questions/concerns addressed at this time. Review of Systems Review of Systems: All systems reviewed & are unremarkable except as noted in HPI & below Physical Exam Constitutional: WD/WN, vitals as above + thin; no acute distress and no altered mental status Eyes: + anicteric sclerae ENMT: external ear and nose normal, oropharynx normal Mouth: + lip abnormality (Small bruise and superficial laceration of upper mid lip) Neck: trachea midline, no thyromegaly Respiratory: normal respiratory effort, lungs clear to auscultation Cardiovascular: RRR, no murmur, no edema Rate/Rhythm: regular rate and regular rhythm Heart Sounds: normal S1, normal S2 and + murmur Vessels: posterior tibial pulses present and dorsalis pedis pulses present; no JVD Extremities: no edema Chest (Breasts): Chest: normal inspection of chest Gastrointestinal (Abdomen): normal bowel sounds, soft, nontender, no hepatosplenomegaly Musculoskeletal: Extremities: + extremities abnormal to inspection (Bilateral hand deformities with ulnar deviation), no cyanosis and no clubbing dressing c/d/i COMFORT 40cc bloody drainage NVI pulses palpable bilaterally calves non-tender equal plantar flexion but decreased dorsiflexion LLE compared to RLE Skin: no rashes, warm and dry + pallor Neurologic: awake; no focal motor deficits Psychiatric: A+Ox3, euthymic affect Lymphatic: no lymphedema Results & Data Results & Data ([facility]) Vital Signs (Past 12 Hours) Vital Signs Temp Pulse Resp BP BP Pulse Ox 11/10/20 08:43 93 H 138/83 11/10/20 07:14 36.3 C L 81 16 157/72 H 100 11/09/20 22:05 36.8 C 79 16 152/72 H 99 Laboratory Results 11/10/20 11/10/20 Range/Units 05:56 05:56 WBC 11.17 H (4.8-10.8) K/uL RBC 3.26 L (4.2-5.4) M/uL Hgb 8.5 L (12.0-16.0) g/dL Hct 27.4 L (37-47) % MCV 84.0 (80-100) fL MCH 26.1 (25-34) pg MCHC 31.0 L (32-36) g/dL RDW Std Deviation 57.5 H (36.4-46.3) fL RDW Coeff of Jarvis 19.3 H (11.5-14.5) % Plt Count 370 (130-400) K/uL MPV 8.7 (7.4-10.4) fL Sodium 140 (136-145) mmol/L Potassium 4.4 (3.5-5.1) mmol/L Chloride 111 H (98-107) mmol/L Carbon Dioxide 26 (21-32) mmol/L Anion Gap 3.0 (3-11) BUN 15 (7-18) mg/dl Creatinine 0.43 L (0.6-1.2) mg/dl Est Cr Clr Drug Dosing 97.8 ml/min Est GFR ( Amer) 117.8 Est GFR (Non-Af Amer) 101.6 BUN/Creatinine Ratio 33.6 H (10-20) Glucose 87 (70-99) mg/dl Calcium 9.0 (8.5-10.1) mg/dl Magnesium 2.1 (1.8-2.4) mg/dl PG Care Time/CCT Total # of Minutes Spent Total Time Spent with Patient: Total time spent is greater than 50% in coordination of care (as documented) at patient's floor/unit and/or counseling patient: Coding Level of Care Code 02032 Subseq Hosp Care Lvl 2 Diagnoses Closed fracture of coccyx S32.2XXA 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
[2020-11-10] MEDS ORDERED: IRON SUCROSE 300 MG in SODIUM CHLORIDE 0.9% 250 ML IV ONE (10:00)
[2020-11-10 11:31] LABS: Ferritin 138.9 ng/ml (8-388)
[2020-11-10] MEDS ORDERED: Nursing to Pharmacy Communication SCH (18:15)
[2020-11-10] MEDS: DOCUSATE SODIUM/SENNA 50/8.6MG TAB PO SCH (19:54)
[2020-11-10] MEDS: predniSONE 1 MG TAB PO SCH (19:55)
[2020-11-10] MEDS: LORazepam 0.5 MG TAB PO PRN (21:08)
[2020-11-10] MEDS: HYDROmorphone INJ 1 MG/ML SYRINGE IV PRN (22:07)
[2020-11-11] MEDS: HYDROmorphone INJ 1 MG/ML SYRINGE IV PRN (02:40)
[2020-11-11 06:22] LABS: Eosinophils # (auto) 0.05 K/uL (0-0.5); Eosinophils % (auto) 0.5 %; Hematocrit (blood only) 28.7 % (37-47); Hemoglobin 8.6 g/dL (12.0-16.0); Lymphocytes # (auto) 1.89 K/uL (1.2-3.4); Lymphocytes % (auto) 19.5 %; Mean Corpuscular Hemoglobin 25.4 pg (25-34); Mean Corpuscular Volume 84.7 fL (80-100); Monocytes # (auto) 1.27 K/uL (0.11-0.59); Monocytes % (auto) 13.1 %; Neutrophils # (auto) 6.36 K/uL (1.4-6.5); Neutrophils % (auto) 65.9 %; Platelet Count 338 K/uL (130-400); RDW Coefficient of Variation 19.8 % (11.5-14.5); RDW Standard Deviation 58.7 fL (36.4-46.3); Red Blood Count 3.39 M/uL (4.2-5.4); White Blood Count 9.67 K/uL (4.8-10.8)
[2020-11-11 06:51] LABS: BUN Creatinine Ratio 29.1 (10-20); Calcium 9.5 mg/dl (8.5-10.1); Creatinine Clr Calc Pharmacy 93.5 ml/min; Est GFR (Non-African American) 100.1; Potassium 4.2 mmol/L (3.5-5.1)
[2020-11-11] MEDS: CALCIUM 600MG + VIT D 400 IU TAB PO SCH ×2 (07:49→20:12)
[2020-11-11] MEDS: predniSONE 5 MG TAB PO SCH (07:50)
[2020-11-11] MEDS: METOPROLOL TARTRATE 50 MG TAB PO SCH ×2 (07:50→20:13)
[2020-11-11] MEDS: GABAPENTIN 300 MG CAP PO SCH ×3 (07:50→20:13)
[2020-11-11] MEDS: PANTOprazole 40 MG TAB PO SCH ×2 (07:50→20:12)
[2020-11-11] MEDS: LACTOBACILLUS ACIDOPHILUS 1 GM PACK PO SCH (07:50)
[2020-11-11] MEDS: CEROVITE ADV FORMULA TAB PO SCH (07:50)
[2020-11-11] MEDS: OXYBUTYNIN CHLORIDE 5 MG TAB PO SCH ×2 (07:50→20:14)
[2020-11-11] MEDS: oxyCODONE HCL IR 5 MG TAB (IMMEDIATE RELEASE) PO PRN ×2 (07:53→19:39)
[2020-11-11] MEDS ORDERED: IRON SUCROSE 200 MG in 0.9 % SODIUM CHLORIDE 100 ML IV ONE (08:00)
--- NOTE | 2020-11-11 08:09 | Orthopedic Progress Note ---
Date of Service November 11, 2020 Assessment & Plan (1) Closed fracture of coccyx: Patient is stable at this point. She has more pain at night and seems to be better during the day. We will continue with pain control GI and DVT prophylaxis. She is likely to need placement for further care. Hopefully this will happen early this week. Admission and Anticipated Discharge Date Admission Date: November 08, 2020 Subjective Patient was seen bedside in room 307. She states she had a difficult night with pain control. The pain is primarily in the back itself and then started having some leg symptoms as well she was given pain medication and things seem to be better this morning. She is tolerating p.o. She was up and walking yesterday. She denies any other numbness, tingling, or paresthesias. Physical Exam Physical Exam: On exam she is alert and oriented. Her abdomen soft nontender calves are supple nontender. Plantarflexion and dorsiflexion have full strength without tenderness. Her dressing is clean dry and intact. She is placed out 10 cc of drainage on this shift and 15 on the previous. Results & Data ([facility]) Vital Signs (Past 12 Hours) Vital Signs Temp Pulse Resp BP Pulse Ox 11/11/20 07:00 36.6 C 92 H 19 154/73 H 99 11/10/20 23:14 36.8 C 81 16 135/60 97
--- NOTE | 2020-11-11 08:10 | Hospitalist Progress Note ---
Date of Service November 11, 2020 Assessment & Plan (1) Closed fracture of coccyx: POD #2, s/p -- #1 Removal of bilateral S1 pedicle screws. #2 placement of bilateral iliac bolts. #3 bilateral open SI joint fusions. #4 placement of destructive sponge, master graft in the bilateral SI joints with Dr. Sanford on 11/08. EBL 150cc Pain control -- got Diluadid last evening for restless legs. Ordered requip for tonight bowel regimen -- successful BM today dispo as per orthopedic surgery patient received dexamethasone x 3 doses post-op for stress dose purposes no signs of addisonian crisis h/h improved to 8.6/28.7 * EBL from surgery 150cc * COMFORT 275cc+90cc +55cc today * iron stores continue to be low on repeat-- Iron 32, Transferrin 180 * -- given IV Venofer 11/10, today and ordered for 3rd dose AM 11/12 * Did not tolerate oral due to metallic taste/dysgeusia * CBC in AM Plans on home health vs [facility] early next week (tomorrow) per orthopedics (2) snf systemic steroid user: On chronic prednisone 5 mg morning and 1 mg in the evening. For rheumatoid arthritis. s/p 3 doses of IV dexamethasone since surgery. no signs/symptoms of addisonian crisis. continue home steroid regimen. (3) Acute blood loss anemia: over last 1-2 years her baseline Hb is about 10. she has had about a 1.2gm drop since the surgery. h/h as above she has troubles taking oral Fe. (sent during last admission) ferritin level in 04/2020 was 20 c/w severe iron deficiency. Iron stores continue to be low (Iron 32, Transferrin 180) -- given IV Venofer today (11/10) and will repeat again tomorrow. Did not tolerate oral due to metallic taste/dysgeusia Getting 2nd dose Venofer today and 3rd tomorrow morning CBC in AM (4) Iron deficiency anemia: see above cbc am (5) Osteoporosis, unspecified: Continue calcitriol, calcium plus vitamin D (6) Chronic reflux esophagitis: Continue PPI (7) Rheumatoid arthritis: Continue prednisone Per her personal care worker HOLD leflunomide and hydroxychloroquine both for 1 week post-surgery no active flare (8) Hypertension: Blood pressures largely controlled/acceptable Continue home metoprolol (9) PAF (paroxysmal atrial fibrillation): Eliquis is on hold postoperatively -- restart when permissible with orthopedic spine surgeon (tomorrow morning) Continue metoprolol on exam today was having extra beats only (10) DVT prophylaxis: SCDs for now Eliquis to be resumed when appropriate by surgery -- starting AM 5/[address] Sanford Dispo: likely d/c tomorrow Thank you for allowing hospitalist service to participate in the care of Mrs Esparza. Hospitalist service will follow along with chart check in AM and see if not being discharged. Please call with any questions/concerns. Admission and Anticipated Discharge Date Admission Date: November 08, 2020 Subjective Patient evaluated this morning. Doing well. Pain controlled. Did have increased restless legs last evening which she got hydromorphone for. Got IV iron this AM without issue and will give third dose tomorrow. Discussed can have some RLS from low iron but we will try requip tonight to avoid opiates for treatment of RLS as not appropriate. Eating/drinking no issue. Passing gas and had successful BM. No fever, chills, chest pain, shortness of breath, abdominal pain, nausea, vomiting, dysuria at this time. Strength improved and hopeful for d/c tomorrow. Updated on iphone conversation while in room during eval. Questions/concerns addressed. Review of Systems Review of Systems: All systems reviewed & are unremarkable except as noted in HPI & below Physical Exam Constitutional: WD/WN, vitals as above + thin; no acute distress and no altered mental status Eyes: + anicteric sclerae ENMT: external ear and nose normal, oropharynx normal Mouth: + lip abnormality (Small bruise and superficial laceration of upper mid lip) Neck: trachea midline, no thyromegaly Respiratory: normal respiratory effort, lungs clear to auscultation Cardiovascular: RRR, no murmur, no edema Rate/Rhythm: regular rate and regular rhythm Heart Sounds: normal S1, normal S2 and + murmur Vessels: posterior tibial pulses present and dorsalis pedis pulses present; no JVD Extremities: no edema Chest (Breasts): Chest: normal inspection of chest Gastrointestinal (Abdomen): normal bowel sounds, soft, nontender, no hepatosplenomegaly Musculoskeletal: Extremities: + extremities abnormal to inspection (Bilateral hand deformities with ulnar deviation), no cyanosis and no clubbing dressing c/d/i minimally tender to palpation no shadowing COMFORT with scant drainage NVI, calves non-tender pulses palpable bilaterally improved strength dorsiflexion/plantar flexion but still decreased on R foot with dorsiflexion Skin: no rashes, warm and dry + pallor (IMPROVED) Neurologic: awake; no focal motor deficits Psychiatric: A+Ox3, euthymic affect Lymphatic: no lymphedema Results & Data Results & Data ([facility]) Vital Signs (Past 12 Hours) Vital Signs Temp Pulse Resp BP Pulse Ox 11/11/20 07:00 36.6 C 92 H 19 154/73 H 99 11/10/20 23:14 36.8 C 81 16 135/60 97 Laboratory Results 11/11/20 11/11/20 11/10/20 Range/Units 05:41 05:41 10:20 WBC 9.67 (4.8-10.8) K/uL RBC 3.39 L (4.2-5.4) M/uL Hgb 8.6 L (12.0-16.0) g/dL Hct 28.7 L (37-47) % MCV 84.7 (80-100) fL MCH 25.4 (25-34) pg MCHC 30.0 L (32-36) g/dL RDW Std Deviation 58.7 H (36.4-46.3) fL RDW Coeff of Jarvis 19.8 H (11.5-14.5) % Plt Count 338 (130-400) K/uL MPV 9.0 (7.4-10.4) fL Immature Gran % (Auto) 1.0 % Neut % (Auto) 65.9 % Lymph % (Auto) 19.5 % [place] % (Auto) 13.1 % Eos % (Auto) 0.5 % Baso % (Auto) 0.0 % Neut # (Auto) 6.36 (1.4-6.5) K/uL Lymph # (Auto) 1.89 (1.2-3.4) K/uL [place] # (Auto) 1.27 H (0.11-0.59) K/uL Eos # (Auto) 0.05 (0-0.5) K/uL Baso # (Auto) 0.00 (0-0.2) K/uL Immature Gran # (Auto) 0.10 H (0.00-0.02) K/uL Sodium 140 (136-145) mmol/L Potassium 4.2 (3.5-5.1) mmol/L Chloride 110 H (98-107) mmol/L Carbon Dioxide 24 (21-32) mmol/L Anion Gap 6.0 (3-11) BUN 13 (7-18) mg/dl Creatinine 0.45 L (0.6-1.2) mg/dl Est Cr Clr Drug Dosing 93.5 ml/min Est GFR ( Amer) 116.0 Est GFR (Non-Af Amer) 100.1 BUN/Creatinine Ratio 29.1 H (10-20) Glucose 74 (70-99) mg/dl Calcium 9.5 (8.5-10.1) mg/dl Iron 32 L (35-150) mcg/dl Transferrin 180 L (200-360) mg/dl Ferritin 138.9 (8-388) ng/ml Vitamin B12 (193-986) pg/ml 11/10/20 Range/Units 10:20 WBC (4.8-10.8) K/uL RBC (4.2-5.4) M/uL Hgb (12.0-16.0) g/dL Hct (37-47) % MCV (80-100) fL MCH (25-34) pg MCHC (32-36) g/dL RDW Std Deviation (36.4-46.3) fL RDW Coeff of Jarvis (11.5-14.5) % Plt Count (130-400) K/uL MPV (7.4-10.4) fL Immature Gran % (Auto) % Neut % (Auto) % Lymph % (Auto) % [place] % (Auto) % Eos % (Auto) % Baso % (Auto) % Neut # (Auto) (1.4-6.5) K/uL Lymph # (Auto) (1.2-3.4) K/uL [place] # (Auto) (0.11-0.59) K/uL Eos # (Auto) (0-0.5) K/uL Baso # (Auto) (0-0.2) K/uL Immature Gran # (Auto) (0.00-0.02) K/uL Sodium (136-145) mmol/L Potassium (3.5-5.1) mmol/L Chloride (98-107) mmol/L Carbon Dioxide (21-32) mmol/L Anion Gap (3-11) BUN (7-18) mg/dl Creatinine (0.6-1.2) mg/dl Est Cr Clr Drug Dosing ml/min Est GFR ( Amer) Est GFR (Non-Af Amer) BUN/Creatinine Ratio (10-20) Glucose (70-99) mg/dl Calcium (8.5-10.1) mg/dl Iron (35-150) mcg/dl Transferrin (200-360) mg/dl Ferritin (8-388) ng/ml Vitamin B12 572 (193-986) pg/ml PG Care Time/CCT Total # of Minutes Spent Total Time Spent with Patient: Total time spent is greater than 50% in coor dination of care (as documented) at patient's floor/unit and/or counseling patient: Coding Level of Care Code 54345 Subseq Hosp Care Lvl 3 Diagnoses Closed fracture of coccyx 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
[2020-11-11] MEDS ORDERED: rOPINIRole HCL 0.25 MG TABLET PO ONE (11:21)
[2020-11-11] MEDS: predniSONE 1 MG TAB PO SCH (20:13)
[2020-11-11] MEDS: DOCUSATE SODIUM/SENNA 50/8.6MG TAB PO SCH (20:14)
[2020-11-11] MEDS: rOPINIRole HCL 0.25 MG TABLET PO SCH (20:14)
[2020-11-11] MEDS: LORazepam 0.5 MG TAB PO PRN (22:51)
[2020-11-12] MEDS: oxyCODONE HCL IR 5 MG TAB (IMMEDIATE RELEASE) PO PRN ×3 (00:46→08:47)
[2020-11-12 06:40] LABS: Hematocrit (blood only) 27.7 % (37-47); Hemoglobin 8.7 g/dL (12.0-16.0); Mean Corpuscular Hemoglobin 25.8 pg (25-34); Mean Corpuscular Hgb Conc 31.4 g/dL (32-36); Mean Corpuscular Volume 82.2 fL (80-100); Mean Platelet Volume 9.1 fL (7.4-10.4); Nucleated RBC # (auto) 0.03 K/uL (0-0); Nucleated RBC % (auto) 0.2 %; Platelet Count 284 K/uL (130-400); RDW Coefficient of Variation 19.7 % (11.5-14.5); RDW Standard Deviation 57.2 fL (36.4-46.3); Red Blood Count 3.37 M/uL (4.2-5.4); White Blood Count 10.28 K/uL (4.8-10.8)
[2020-11-12 07:09] LABS: Calcium 8.7 mg/dl (8.5-10.1); Creatinine Clr Calc Pharmacy 120.2 ml/min; Est GFR (Non-African American) 108.7; Potassium 3.6 mmol/L (3.5-5.1)
[2020-11-12] MEDS: ACETAMINOPHEN 500 MG TAB PO PRN (07:36)
[2020-11-12] MEDS ORDERED: IRON SUCROSE 200 MG in 0.9 % SODIUM CHLORIDE 100 ML IV ONE (08:00)
[2020-11-12] MEDS: CALCIUM 600MG + VIT D 400 IU TAB PO SCH ×2 (08:47→19:52)
[2020-11-12] MEDS: GABAPENTIN 300 MG CAP PO SCH ×3 (08:48→19:51)
[2020-11-12] MEDS: OXYBUTYNIN CHLORIDE 5 MG TAB PO SCH ×2 (08:48→19:52)
[2020-11-12] MEDS: predniSONE 5 MG TAB PO SCH (08:48)
[2020-11-12] MEDS: APIXABAN 5 MG TABLET PO SCH ×2 (08:49→19:51)
[2020-11-12] MEDS: METOPROLOL TARTRATE 50 MG TAB PO SCH ×2 (08:49→19:52)
[2020-11-12] MEDS: PANTOprazole 40 MG TAB PO SCH ×2 (08:49→19:51)
[2020-11-12] MEDS: CEROVITE ADV FORMULA TAB PO SCH (08:49)
[2020-11-12] MEDS: CALCITRIOL 0.25 MCG CAPSULE PO SCH (08:50)
[2020-11-12] MEDS: LACTOBACILLUS ACIDOPHILUS 1 GM PACK PO SCH (08:50)
--- NOTE | 2020-11-12 12:01 | Orthopedic Progress Note ---
Date of Service November 12, 2020 Assessment & Plan (1) Closed fracture of coccyx: Admission and Anticipated Discharge Date Admission Date: November 08, 2020 At this time she is declined over the weekend I am concerned that she may have some collapse of her instrumentation. I would like to obtain a CAT scan of the lumbar spine. Pending these results we may consider rehab facility. Subjective Patient complaining of considerable back and bilateral leg pain Physical Exam Physical Exam: On exam she does appear to be in pain. She is in the chair at the bedside. She does have good strength testing lower extremities. Results & Data ([facility]) Vital Signs (Past 12 Hours) Vital Signs Temp Pulse Resp BP Pulse Ox 11/12/20 08:28 36.9 C 97 H 16 121/74 98 11/12/20 07:16 36.6 C 98 H 18 146/66 H 98
--- NOTE | 2020-11-12 13:31 | CT Scan Report ---
CT OF THE LUMBAR SPINE CLINICAL HISTORY: Postoperative evaluation. COMPARISON STUDY: Lumbar spine CT October 29, 2020. Lumbar spine fluoroscopic images November 08, 2020. TECHNIQUE: Helical axial images of the lumbar spine were obtained. Sagittal and coronal reconstruct ions were viewed. Automated exposure control was utilized for the study. A dose lowering technique was utilized adhering to the principles of ALARA. FINDINGS: Extensive postoperative findings within lumbar spine are noted. Soft tissue gas is expected in the early postoperative setting. Evaluation of the central canal and neural foramen is suboptimal given CT technique and artifact from hardware. There are no unexpected radiopaque foreign bodies. Th e hardware is intact. Interval removal of the bilateral S1 pedicle screws since CT of October 29, 2020 is noted with interval placement of bilateral iliac bolts. Bilateral pedicle screws are noted at T12, L2, L3 and L5 levels with a right pedicle screw at the L1 level and the left pedicle screw at the L4 level. Paravertebral soft tissues are unremarkable in the early postoperative setting. Note is again made of a moderate compression fracture of the superior endplate of L2 which is similar to prior exa m. There is 6 minutes of retropulsion which is unchanged at the L1-L2 level. S1 vertebral body fractu res are again noted. These are unchanged since prior examination. Note is made of healing bilateral L 1 pedicle fractures and a left L2 pedicle fracture as well as fractures of the left transverse proces ses of L1, L2 and L5. No new fractures are identified on this examination. Multilevel disc space narr owing is most pronounced at L4-L5 and L5-S1. This is unchanged. Note is made of a subtle nondisplaced fracture of the right iliac bone. IMPRESSION: 1. Status post interval placement of bilateral iliac bolts and removal of the bilateral S1 pedicle sc rews since CT of October 29, 2020. Hardware intact. Suboptimal evaluation of the central canal and neur al foramen given CT technique and artifact from the surgical hardware. 2. No significant change in appearance of the L2 and S1 fractures since prior exam. 3. Redemonstration of healing bilateral L1 pedicles fractures and left L2 pedicle fracture. 4. Redemonstration of healing left L1, L2 and L5 transverse process fractures. 5. Subtle nondisplaced fracture of the right iliac bone. ACT 112: Negative or not required by law. Electronically signed by: Devon Zee M.D. 11/12/2020 1:29 PM
[2020-11-12] MEDS: rOPINIRole HCL 0.25 MG TABLET PO SCH (19:51)
[2020-11-12] MEDS: predniSONE 1 MG TAB PO SCH (19:51)
[2020-11-12] MEDS ORDERED: COUGH DROP (SUGAR FREE) LOZ 24 LOZ/1 BOX BUCCAL PRN (19:56)
[2020-11-12] MEDS ORDERED: COUGH DROP (SUGAR FREE) LOZ 24 LOZ/1 BOX BUCCAL ONE (19:59)
[2020-11-12] MEDS: DOCUSATE SODIUM/SENNA 50/8.6MG TAB PO SCH (20:01)
[2020-11-13] MEDS: LACTOBACILLUS ACIDOPHILUS 1 GM PACK PO SCH (08:28)
[2020-11-13] MEDS: APIXABAN 5 MG TABLET PO SCH ×2 (08:28→20:33)
[2020-11-13] MEDS: CALCIUM 600MG + VIT D 400 IU TAB PO SCH ×2 (08:28→20:33)
[2020-11-13] MEDS: PANTOprazole 40 MG TAB PO SCH ×2 (08:28→20:31)
[2020-11-13] MEDS: METOPROLOL TARTRATE 50 MG TAB PO SCH ×2 (08:28→20:32)
[2020-11-13] MEDS: OXYBUTYNIN CHLORIDE 5 MG TAB PO SCH ×2 (08:29→20:32)
[2020-11-13] MEDS: GABAPENTIN 300 MG CAP PO SCH ×3 (08:29→20:31)
[2020-11-13] MEDS: predniSONE 5 MG TAB PO SCH (08:29)
[2020-11-13] MEDS: CEROVITE ADV FORMULA TAB PO SCH (08:29)
[2020-11-13] MEDS: oxyCODONE HCL IR 5 MG TAB (IMMEDIATE RELEASE) PO PRN (08:35)
--- NOTE | 2020-11-13 15:34 | Orthopedic Progress Note ---
Date of Service November 13, 2020 Assessment & Plan (1) Closed fracture of coccyx: Admission and Anticipated Discharge Date Admission Date: November 08, 2020 At this time the patient is tolerating bed to chair with a little bit of in room therapy. I would not expect her to go any more beyond this. She must be very guarded with her activity. She is significantly compromised bone quality. Had a discussion with the patient and her . We are comfortable with her going home with home physical therapy and home health. If she has a reasonable day tomorrow we could possibly discharge her home . We will not consider rehab at this time. Subjective Patient's back and leg pain is markedly improved. Physical Exam Physical Exam: On exam she is in a chair at the bedside. Is good strength testing. Appears comfortable. Results & Data ([facility]) Vital Signs (Past 12 Hours) Vital Signs Temp Pulse Resp BP Pulse Ox 11/13/20 14:28 36.6 C 96 H 18 109/68 100 11/13/20 07:14 36.7 C 100 H 18 135/65 97
[2020-11-13] MEDS: rOPINIRole HCL 0.25 MG TABLET PO SCH (20:32)
[2020-11-13] MEDS: predniSONE 1 MG TAB PO SCH (20:32)
[2020-11-13] MEDS: DOCUSATE SODIUM/SENNA 50/8.6MG TAB PO SCH (20:36)
[2020-11-14] MEDS: oxyCODONE HCL IR 5 MG TAB (IMMEDIATE RELEASE) PO PRN ×3 (00:54→10:18)
[2020-11-14] MEDS: ACETAMINOPHEN 500 MG TAB PO PRN ×2 (04:22→08:37)
[2020-11-14] MEDS: LACTOBACILLUS ACIDOPHILUS 1 GM PACK PO SCH (08:32)
[2020-11-14] MEDS: METOPROLOL TARTRATE 50 MG TAB PO SCH ×2 (08:33→19:42)
[2020-11-14] MEDS: predniSONE 5 MG TAB PO SCH (08:33)
[2020-11-14] MEDS: APIXABAN 5 MG TABLET PO SCH ×2 (08:33→19:42)
[2020-11-14] MEDS: CALCIUM 600MG + VIT D 400 IU TAB PO SCH ×2 (08:33→19:42)
[2020-11-14] MEDS: PANTOprazole 40 MG TAB PO SCH ×2 (08:33→19:43)
[2020-11-14] MEDS: CEROVITE ADV FORMULA TAB PO SCH (08:33)
[2020-11-14] MEDS: OXYBUTYNIN CHLORIDE 5 MG TAB PO SCH ×2 (08:34→19:42)
[2020-11-14] MEDS: GABAPENTIN 300 MG CAP PO SCH ×3 (08:34→19:43)
--- NOTE | 2020-11-14 13:39 | Orthopedic Progress Note ---
Date of Service November 14, 2020 Assessment & Plan (1) Closed fracture of coccyx: Admission and Anticipated Discharge Date Admission Date: November 08, 2020 At this time we will continue with physical therapy in the room. We are planning for possible discharge home tomorrow with home health. Subjective Patient is very comfortable today. She is able to tolerate walking in the room today. Pain well controlled. Physical Exam Physical Exam: On exam she is in the chair at the bedside is good strength testing. Appears comfortable. Results & Data ([facility]) Vital Signs (Past 12 Hours) Vital Signs Temp Pulse Pulse Resp BP BP Pulse Ox 11/14/20 12:15 36.8 C 85 16 134/72 99 11/14/20 07:50 36.4 C L 92 H 15 156/82 H 100 11/14/20 07:33 36.6 C 97 H 18 171/77 H 97
[2020-11-14] MEDS: predniSONE 1 MG TAB PO SCH (19:43)
[2020-11-14] MEDS: rOPINIRole HCL 0.25 MG TABLET PO SCH (19:43)
[2020-11-14] MEDS: DOCUSATE SODIUM/SENNA 50/8.6MG TAB PO SCH (19:46)
[2020-11-15] MEDS: oxyCODONE HCL IR 5 MG TAB (IMMEDIATE RELEASE) PO PRN ×2 (00:24→06:12)
[2020-11-15] MEDS: OXYBUTYNIN CHLORIDE 5 MG TAB PO SCH (09:40)
[2020-11-15] MEDS: predniSONE 5 MG TAB PO SCH (09:40)
[2020-11-15] MEDS: CALCIUM 600MG + VIT D 400 IU TAB PO SCH (09:40)
[2020-11-15] MEDS: METOPROLOL TARTRATE 50 MG TAB PO SCH (09:40)
[2020-11-15] MEDS: GABAPENTIN 300 MG CAP PO SCH ×2 (09:40→13:49)
[2020-11-15] MEDS: LACTOBACILLUS ACIDOPHILUS 1 GM PACK PO SCH (09:40)
[2020-11-15] MEDS: APIXABAN 5 MG TABLET PO SCH (09:40)
[2020-11-15] MEDS: CEROVITE ADV FORMULA TAB PO SCH (09:40)
[2020-11-15] MEDS: PANTOprazole 40 MG TAB PO SCH (09:40)
--- NOTE | 2020-11-15 10:08 | Discharge Summary ---
Date of Service November 15, 2020 Admission HPI Per Admitting Provider This is a 70-year-old female known to me that has a sacral fracture and is here for fixation. Principal Diagnosis Sacral fracture Discharge Data Allergies Allergy/AdvReac Type Severity Reaction Status Date / Time dalbavancin Allergy Severe hypotension, Verified 11/08/20 07:02 flushing, tachypnea Consultations 11/08/20 11:08 Consult Hospitalist Routine Procedures Performed Operation Date: 11/08/20 08:15 Actual Procedures p Bilateral Iliac [place] Placement(Not Applicable) - Golden Sanford DO s Removal of S1 Screws,(Not Applicable) - Golden Sanford DO Ordered Studies 11/08/20 08:15 [place] lumbar spine 2-3V Routine 11/12/20 11:59 CT lumbar spine wo con Routine Hospital Course (1) Closed fracture of coccyx: Patient underwent lumbopelvic stabilization. She tried exhausting orthopedic for postoperative. Postop day #1 we will begin transitions to the chair. Is progressed along appropriately for the next several days. She tolerated it well. Her severe pain is markedly improved. She demonstrates good strength testing lower extremities. Subsequent discharge home with home health. Discharge orders instructions on the chart for further review. Total Time Total Time Spent Total Time Spent (In Minutes): 20 minutes Discharge Plan Discharge Items Patient Disposition: Home - Home Health Services Reason For Visit: Minimally Displaced Zone I Fracture of Sacrum Discharge Diagnosis: Sacral fracture Activity: As commented below Non-emergency contact: Primary Care Provider Call non-emergency contact if: you have any medication questions Follow-up/Referrals: Sylvia Nails MD [Primary Care Provider] - Diet: Regular Addtl Attending Provider Instructions: ACTIVITY RECOMMENDATIONS: SELF CARE INSTRUCTIONS AFTER THORACIC/LUMBAR FUSIONS 1. You may walk to your tolerance. It is good exercise for your legs and back. Expect some back and intermittent leg aches and pains. 2. You may perform "counter-top" level activities (make a sandwich, jayy with a project, etc.). 3. No bending or lifting of more than 10 pounds or back twisting of any nature (roll like a log when turning in bed). 4. You may ride in a car for 20-30 minutes at a time. No driving until after your first visit with your doctor. 5. Frequent changes of position and restricting sitting to 30 minutes at a time will help limit the amount of back spasms and stiffness you may experience. 6. You may discontinue the use of ambulatory aids (cane, crutches, etc.) once your strength and confidence allow. 7. You may chief school finance officer the shower and let water strike your incision when you arrive home at least once daily. Do not take a tub bath, sit in a hot tub or go into a swimming pool until after your first recheck in the office. SPECIAL CARE INSTRUCTIONS: VERY IMPORTANT TO READ AND REVIEW A. Your surgical incision has been closed with a cosmetic suture under the skin that will dissolve in about 6 weeks. In 14 days, you can use a pair of clean scissors and cut the suture that is left outside of the skin at the ends of your incision. 1. The small skin tapes can be removed 7 days after surgery if they have not fallen off by that point. 2. You may keep the wound open to air as much as possible to promote healing after post-op day number 5 unless told otherwise by your doctor. 3. If you think the wound looks like it is becoming infected (redness or worsening drainage) and/or you are experiencing fever, chill or worsening back pain and muscle spasms, contact the office so that we may evaluate you as soon as possible. B. Complications are uncommon, but please contact us if you have any signs or symptoms of: 1. wound infection (fever higher than 102.5 degrees F, redness, separation of wound, drainage, or increasing pain from the incision) 2. blood clots in legs (pain, swelling, redness and warmth in legs) 3. urinary tract infection (fever higher than 102.5 degrees F, burning upon urination or increased frequency of urination) 4. nerve problems (inability to walk on your toes or heels, numbness, loss of bowel or bladder control) 5. any other symptoms that concern you C. Please call the office at if you have any concerns or questions about your operation or recovery. D. No smoking! Smoking drastically decreases the chance of a solid fusion. E. Do not take any anti-inflammatory medications (Indocin, Advil, Motrin, Aspirin, Naprosyn, etc.) as these may inhibit the chance of a solid fusion. Tylenol is okay to take for pain. MANAGING PAIN AFTER SPINAL SURGERY 1. Narcotic medication is intended for short-term use and will be provided for surgical pain. Surgical pain usually lasts for a period of 4-6 weeks. Narcotic medication includes Percocet, Vicodin, Darvocet, Tylenol #3 or Lortab. 2. Longer-term pain is more appropriately treated with non-narcotic medication such as Tylenol ES. 3. Muscle spasm is not appropriately treated with narcotics. Muscle relaxers such as Soma, Flexeril or Skelaxin can be used along with Tylenol ES. 4. Remember that we all live with some "aches and pains". This is not unusual or uncommon after an injury or as we get older. a. Back pain is expected and may include muscle spasms for 4 to 6 weeks after surgery. The pain should gradually improve. If the pain worsens for no apparent reason, please contact the office. b. Intermittent leg pain may also be experienced and should not be concerned about unless it worsens for no apparent reason. If so, please contact the office. 5. We will provide appropriate medication within the normal guidelines of their prescribed use. We will also be very cautious and aware of potential abuse and extended duration of patients' medication needs. a. Pain medications are for your comfort and to assist with sleep and rest so that the tissue can heal. They are not provided in order to return to normal activity and should not be used through the day. To do so or worsening pain at night can result from ongoing tissue damage and development of tolerance to the prescribed medicine. 6. Please allow 2-3 days to process refills. Prescriptions will not be mailed but must be picked up at the office. FOLLOW UP VISIT: Keep your scheduled follow-up appointment. Any questions, please call the office at . Pending Studies at Discharge: No Stand-Alone Forms: My [place], Smoking Cessation Medications and DC Order Prescriptions: New oxycodone 5 mg tablet 5 mg PO Q6H PRN (Reason: pain, severe) Qty: 30 RF: 0 Continued oxybutynin chloride 5 mg tablet 5 mg PO BID Qty: 180 RF: 1 Eliquis 5 mg tablet 5 mg PO BID Qty: 180 RF: 1 leflunomide [Arava] 20 mg tablet 20 mg PO QAM RF: 0 (DME) Knee Stabilizer misc See Dose Instructions .ROUTE .MEDSUPPLY Qty: 1 RF: 0 prednisone 5 mg Tablet 5 mg PO QAM RF: 0 prednisone 1 mg Tablet 1 mg PO QPM RF: 0 Probiotic 3 billion cell Capsule 3,000 mmu cells PO QAM RF: 0 Macuvite Eye Care 7,160 unit-113 mg-100 unit Tablet 1 tab PO QAM RF: 0 calcitriol [Rocaltrol] 0.5 mcg capsule 0.5 mcg PO 2XWK RF: 0 docusate sodium 100 mg capsule 100 mg PO HS PRN (Reason: constipation) RF: 0 omeprazole 20 mg capsule,delayed release(DR/EC) 20 mg PO BID RF: 0 cranberry 500 mg Capsule 500 mg PO QPM RF: 0 gabapentin 300 mg capsule 300 mg PO TID RF: 0 Calcium 600 + D(3) 600 mg calcium- 200 unit Capsule 1 cap PO BID RF: 0 metoprolol tartrate 50 mg Tablet 50 mg PO BID Qty: 60 RF: 0 hydrocodone-acetaminophen 1 cap PO Q4-5H PRN (Reason: Pain) RF: 0 hydroxychloroquine [Plaquenil] 200 mg Tablet 200 mg PO BID RF: 0 Admission Data Admit Date/Time: 11/08/20 10:24 Attending Provider: Golden Sanford Admit Provider: Golden Sanford Primary Care Provider: Sylvia Nails Other Providers: [place]Home [facility] ; [facility] Mccoy ; [facility]
== END 2020-11-15 15:55 | disposition home health service (06) | DRG 460 ==
LOC: ASU 06:27 → 3E 10:24

== ENCOUNTER 2021-11-07 17:36 | Inpatient (IN) ==
--- NOTE | 2021-11-07 18:23 | Emergency Department Note ---
Impression & Plan Leg pain, right, Superficial occlusion of femoral artery ED Provider Note Provider: Yg Jim MD DATE OF SERVICE: 11/07/2021 CHIEF COMPLAINT: Present leg pain HISTORY OF PRESENT ILLNESS: Patient is a 71-year-old female history of RA, shortness of atrial fibrillation on Eliquis, elevated, and peripheral vascular disease with a SFA stent placed by Dr. Kelly yesterday. She is on Keflex currently due to an infection in her right foot that has developed and some duskiness of the left several weeks leading to the procedure yesterday. States this afternoon awoke around 1 PM with increased pain little bit on the thigh but mainly in the posterior calf of the right foot with some increased redness of the foot. Patient denies any trauma or falls. Patient and patient's report they contacted the vascular office and was sent here for repeat imaging. Patient's reportedly been taking her anticoagulation with Eliquis. Patient states she is felt a little bit chilled but denies fevers. Some increased pain again of the right calf and slight swelling. REVIEW OF SYSTEMS: A total of 10 review of systems was obtained and negative except as stated above in the HPI. PAST MEDICAL HISTORY: As noted above MEDICATIONS: Reviewed home medication list, last had Eliquis this morning SOCIAL HISTORY: Resides at home with PHYSICAL EXAM: GENERAL: alert and oriented in no acute distress on stretcher Head: normocephalic and atraumatic EYES: No injection, discharge or icterus NECK: Trachea midline. Supple. ENT: Mucous membranes pink and moist. LUNGS: Airway patent. No retractions or tachypnea HEART: Regular rate and rhythm. No chest wall tenderness ABDOMEN: Soft and non-tender, without guarding or rebound. SKIN: Right lower extremity as below otherwise no significant mottling, cyanosis, or erythema noted. EXTREMITIES: Left lower extremity trace edema. Right lower extremity with 1+ edema around the right foot with some erythema and then some ulceration at the base of the right great toe with some green is here significant diffuse tenderness. No crepitus noted. Very faint DP pulse here. NEUROLOGICAL: No aphasia. No facial droop or slurred speech. Patient's laboratory studies and imaging reviewed. Differential includes DVT, arterial occlusion, musculoskeletal, infection, joint effusion, trauma, lymphedema, idiopathic, CHF, as well as other pathologies. IMPRESSION/MEDICAL DECISION MAKING: Patient complain planing recent's stenting sent for ultrasound to evaluate for stent occlusion. Patient has been on her Eliquis per report. Some concern that could be infection which is currently on Keflex for as well. Basic labs obtained Notable for a white cell count of 14.39. Procalcitonin not severely elevated 0.06. X-rays in the ER without any bony abnormalities of significance noted. Ultrasound returns significantly with an occlusion of the superficial femoral artery stent that was placed yesterday and a posterior tibial artery occlusion with blunted monophasic waveforms in the lower leg otherwise. Discussed these findings with vascular surgery who performed the procedure yesterday. Discussed the ultrasound report and physical exam again if it feels like there is a very faint DP palpable pulse in the RLE. Covered with ceftriaxone for any overlying infectious as in the leg. Vascular surgery recommended starting on heparin drip and keeping n.p.o. overnight and he will evaluate in the morning for possible further intervention. Discussed with the hospitalist here. Patient and updated. DIAGNOSIS: Right superficial femoral artery stent occlusion, right leg pain DISPOSITION: Hospitalist will evaluate Patient was agreeable with this plan. Past Med/Surg History Medical History (Updated 11/07/21 @ 22:52 by Yg Jim M.D.) Chronic back pain DDD (degenerative disc disease) GERD (gastroesophageal reflux disease) controlled History of COVID-19 hospitalized 07/16/20 [facility]. hypoxia, fever, cough, chills, loss of taste/smell. pt reports taste/smell still not fully back to normal. History of Hodgkin's lymphoma 2003/under surveillance by PCP/Dr. Thbiodeaux- S/p chemo in 2003- none since History of oral cancer s/p tongue excision left side (no chemo/no XRT 2013) No issues since Hypertension Overactive bladder PAF (paroxysmal atrial fibrillation) hx - on Eliquis Paroxysmal SVT (supraventricular tachycardia) hx (follows with Dr. Vance) Peripheral arterial disease PONV (postoperative nausea and vomiting) RA (rheumatoid arthritis) on chronic steroid Skin benign neoplasm Vertigo No current issues Surgical History H/O foot surgery TOES X MULTIPLE H/O parathyroidectomy History of biopsy Of soft tissue of the neck History of breast surgery Puncture aspiration of cyst History of carpal tunnel release RIGHT History of colonoscopy History of colposcopy with cervical biopsy with endocervical curettage History of glossectomy with unilateral radical neck dissection History of hip surgery R/L REVISION Left MAURO revision: 11/09/18: SABx1 at L3-L4 at [facility] History of spinal surgery 10/02/[address] [facility] [address] Sanford History of total hip arthroplasty R/L History of total knee replacement R/L History of tubal ligation Hx of hand surgery RIGHT Hx of knee surgery most recent 02/28/2020 [facility] Right TKA revision, I&D, antibiotic spacer: 12/29/19: SAB + PNB at [facility] S/P revision of total knee 12/29/19 Dr. Ihsan Vela- Right total knee revision, Incision and drainage with antibiotic cement spacer Family History Mother Breast cancer Colorectal cancer Cancer Gastric cancer Aunt Colorectal cancer Other Family history non-contributory Denies family history of Ovarian cancer Prostate cancer Myocardial infarction Social History Smoking Status: Never smoker Second Hand Exposure: No; Hx Alcohol Use: No Hx Substance Use: No Preferred Language: Polish Communication Ability: Effective Visual Impairment: Limited 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: Normal Head Of Sales Required: No Beliefs That Will Affect Care: None marital status: Current Living Situation: Spouse current occupational status: retired Feels Safe at Home: Yes Childhood Exposure to Second-Hand Smoke: Yes caffeine: Yes Dental Care, Regularly: Yes Physical Activity Frequency: Other Physical Activity Frequency Comment: Limited by a physical condition Seatbelt Use: always Sunscreen Use: Yes Assistive Devices: Glasses and Walker Allergies Allergies Allergy/AdvReac Type Severity Reaction Status Date / Time dalbavancin Allergy Severe hypotension, Verified 11/07/21 20:59 flushing, tachypnea Home Meds Home Medications Medication Instructions Recorded Confirmed lactobacillus combination no.4 3 3,000 mmu cells PO QAM 03/30/18 11/07/21 billion cell capsule (Probiotic) prednisone 1 mg tablet 1 mg PO QPM 03/30/18 11/07/21 prednisone 5 mg tablet 5 mg PO QAM 03/30/18 11/07/21 cranberry 500 mg capsule 500 mg PO QPM 09/29/18 11/07/21 omeprazole 20 mg capsule,delayed 20 mg PO BID 09/29/18 11/07/21 release vit A 7,160 unit-vit C 113 mg-vit 1 tab PO QAM 10/08/18 11/07/21 E-zinc [id number] 1 mg tablet (Macuvite Eye Care) calcitriol 0.5 mcg capsule 0.5 mcg PO 2XWK 02/21/20 11/07/21 (Rocaltrol) leflunomide 20 mg tablet (Arava) 20 mg PO QAM 03/27/20 11/07/21 calcium carbonate 600 mg-vitamin 1 cap PO BID 07/16/20 11/07/21 D3 5 mcg (200 unit) capsule (Calcium 600 + D(3)) gabapentin 300 mg capsule 300 mg PO TID 07/16/20 11/07/21 sennosides 8.6 mg tablet (senna) 8.6 mg PO DAILY PRN 02/28/21 11/07/21 hydrocodone 10 mg-acetaminophen 1 tab PO Q4 PRN 03/07/21 11/07/21 325 mg tablet ferrous sulfate 325 mg (65 mg 325 mg PO QAM 09/26/21 11/07/21 iron) tablet hydroxychloroquine 200 mg tablet 200 mg PO DAILY tab 10/02/21 11/07/21 (Plaquenil) cephalexin 500 mg capsule 500 mg PO TID 11/07/21 11/07/21 Previous Rx's Medication Instructions Recorded leg brace (Knee Stabilizer) #1 ea 02/10/19 metoprolol tartrate 50 mg tablet 50 mg PO BID #180 tab 12/27/20 meclizine 25 mg tablet 25 mg PO BID PRN #20 tab 07/26/21 apixaban 5 mg tablet (Eliquis) 5 mg PO BID #180 tab 08/28/21 oxybutynin chloride 5 mg tablet 5 mg PO BID #180 tab 08/28/21 Results & Data (ED) Vital Signs Vital Signs - 24 hr 11/07/21 17:42 Temperature 37.7 C H Temperature Source Temporal Artery Scan Pulse Rate 116 H Respiratory Rate 16 Respiratory Effort / Characteristics Non-Labored Spontaneous Respiratory Depth Normal Respiratory Pattern Regular Blood Pressure 178/75 H Blood Pressure Mean 109 Blood Pressure Position Sitting Pulse Oximetry 96 Oxygen Delivery Method Room Air Sepsis Recent Fever Within 48 Hours No Sepsis New/Unexplained Change in Mental Status No Sepsis Action Taken by Nursing No Action Required Laboratory Data Result diagrams: 11/07/21 20:18 11/07/21 18:18 Lab Results 11/07/21 11/07/21 11/07/21 Range/Units 18:18 18:18 18:18 WBC (4.8-10.8) K/uL RBC (4.2-5.4) M/uL Hgb (12.0-16.0) g/dL Hct (37-47) % MCV (80-100) fL MCH (25-34) pg MCHC (32-36) g/dL RDW Std Deviation (36.4-46.3) fL RDW Coeff of Jarvis (11.5-14.5) % Plt Count (130-400) K/uL MPV (7.4-10.4) fL Immature Gran % (Auto) % Neut % (Auto) % Lymph % (Auto) % [place] % (Auto) % Eos % (Auto) % Baso % (Auto) % Neut # (Auto) (1.4-6.5) K/uL Lymph # (Auto) (1.2-3.4) K/uL [place] # (Auto) (0.11-0.59) K/uL Eos # (Auto) (0-0.5) K/uL Baso # (Auto) (0-0.2) K/uL Immature Gran # (Auto) (0.00-0.02) K/uL PT 11.6 (9.0-12.0) Seconds INR 1.1 (0.9-1.1) APTT 29.5 (21.0-31.0) Seconds PTT Ratio 1.1 Sodium 140 (136-145) mmol/L Potassium 4.5 (3.5-5.1) mmol/L Chloride 105 (98-107) mmol/L Carbon Dioxide 28 (21-32) mmol/L Anion Gap 7 (3-11) BUN 13 (6-23) mg/dl Creatinine 0.60 (0.6-1.2) mg/dl Est Cr Clr Drug Dosing Not Reportable Est GFR ( Amer) 104.8 ml/min Est GFR (Non-Af Amer) 90.4 ml/min BUN/Creatinine Ratio 21.7 H (10-20) Glucose 96 (70-99(Fasting)) mg/dl Calcium 8.8 (8.5-10.1) mg/dl Total Bilirubin 0.6 (0.2-1.0) mg/dl AST 11 L (13-39) U/L ALT 8 (7-52) U/L Alkaline Phosphatase 68 (34-104) U/L Total Protein 6.0 (6.0-8.3) gm/dl Albumin 3.5 (3.4-5.0) gm/dl Globulin 2.5 (2.5-4.0) gm/dl Albumin/Globulin Ratio 1.4 (0.9-2) Procalcitonin 0.06 (0-0.5) ng/ml SARS-CoV-2, RNA, NAAT (NEGATIVE) 11/07/21 11/07/21 Range/Units 20:18 22:02 WBC 14.39 H (4.8-10.8) K/uL RBC 3.95 L (4.2-5.4) M/uL Hgb 11.3 L (12.0-16.0) g/dL Hct 36.0 L (37-47) % MCV 91.1 (80-100) fL MCH 28.6 (25-34) pg MCHC 31.4 L (32-36) g/dL RDW Std Deviation 51.4 H (36.4-46.3) fL RDW Coeff of Jarvis 15.3 H (11.5-14.5) % Plt Count 219 (130-400) K/uL MPV 10.0 (7.4-10.4) fL Immature Gran % (Auto) 0.3 % Neut % (Auto) 68.5 % Lymph % (Auto) 16.2 % [place] % (Auto) 14.4 % Eos % (Auto) 0.4 % Baso % (Auto) 0.2 % Neut # (Auto) 9.85 H (1.4-6.5) K/uL Lymph # (Auto) 2.33 (1.2-3.4) K/uL [place] # (Auto) 2.07 H (0.11-0.59) K/uL Eos # (Auto) 0.06 (0-0.5) K/uL Baso # (Auto) 0.03 (0-0.2) K/uL Immature Gran # (Auto) 0.05 H (0.00-0.02) K/uL PT (9.0-12.0) Seconds INR (0.9-1.1) APTT (21.0-31.0) Seconds PTT Ratio Sodium (136-145) mmol/L Potassium (3.5-5.1) mmol/L Chloride (98-107) mmol/L Carbon Dioxide (21-32) mmol/L Anion Gap (3-11) BUN (6-23) mg/dl Creatinine (0.6-1.2) mg/dl Est Cr Clr Drug Dosing Est GFR ( Amer) ml/min Est GFR (Non-Af Amer) ml/min BUN/Creatinine Ratio (10-20) Glucose (70-99(Fasting)) mg/dl Calcium (8.5-10.1) mg/dl Total Bilirubin (0.2-1.0) mg/dl AST (13-39) U/L ALT (7-52) U/L Alkaline Phosphatase (34-104) U/L Total Protein (6.0-8.3) gm/dl Albumin (3.4-5.0) gm/dl Globulin (2.5-4.0) gm/dl Albumin/Globulin Ratio (0.9-2) Procalcitonin (0-0.5) ng/ml SARS-CoV-2, RNA, NAAT NEGATIVE (NEGATIVE) Administered Medications Heparin Sodium/Dextrose (Heparin Sodium/Dextrose) 25,000 units in 500 mls @ 19 mls/hr IV .Q24H ANGELO; Protocol Stop: 12/07/21 21:29 Last Admin: 11/07/21 22:26 Dose: 950 units/hr, 19 mls/hr Documented by: [id number] Cosigned by: [id number] Discontinued Medications Heparin Sodium (Porcine) (Heparin Sod (Porcine) 1000 Unit/Ml) 1 units IV NOW ONE Stop: 11/07/21 21:17 Last Admin: 11/07/21 22:23 Dose: 1 units Documented by: [id number] Cosigned by: [id number] Heparin Sodium/Dextrose (Heparin Iv Adult Wt-Based Standard With Bolus Protocol) 1 ea IV NOW STA; Protocol Stop: 11/07/21 21:02 Last Admin: 11/07/21 22:23 Dose: 1 ea Documented by: [id number] Ceftriaxone Sodium (Rocephin) 1,000 mg in 50 mls @ 100 mls/hr IV NOW STA Stop: 11/07/21 21:30 Last Admin: 11/07/21 22:37 Dose: 100 mls/hr Documented by: [id number] Acetaminophen (Ofirmev) 1,000 mg in 100 mls @ 400 mls/hr IV NOW STA Stop: 11/07/21 21:57 Last Admin: 11/07/21 22:24 Dose: 400 mls/hr Documented by: [id number] Morphine Sulfate (Morphine Sulfate 2 Mg/Ml Carp) 1 mg IV NOW STA Stop: 11/07/21 21:44 Last Admin: 11/07/21 22:37 Dose: 1 mg Documented by: [id number] Imaging Data Radiologist's Impression: Duplex Scan Lower Extremity Artery 11/07/21 18:16 US arterial duplex LE RT HISTORY: 71 years-old Female s/p femoral stent, increased pain . Pain and swelling of the right lower extremity status post placement of a femoral stent COMPARISON: Fluoroscopic angiogram images of the right lower extremity dated 11/06/2021 TECHNIQUE: Multiple real-time sonographic images of the right lower extremity arterial structures were obtained assessing grayscale appearance, color and spectral flow FINDINGS: Diffuse atherosclerosis. Triphasic waveforms are noted within the profunda femoris and common femoral arteries. Triphasic waveforms within the superficial femoral artery demonstrate elevated peak systolic velocities measuring up to 320 cm/s proximally. There is a stent within the proximal to mid superficial femoral artery which is occluded reconstitution of flow noted within the distal superficial femoral artery where there are monophasic waveforms. Elevated peak systolic velocities within the distal superficial femoral artery measure up to 270 cm/s. Collateral vessels are noted adjacent to the superficial femoral artery. Blunted monophasic waveforms within the popliteal artery. Occlusion/near occlusion of the posterior tibial artery with markedly blunted monophasic waveforms demonstrating spectral broadening with peak systolic velocities measuring up to 17 cm/s. Questioned reversal of flow within the peroneal artery. Blunted monophasic waveforms within the dorsalis pedis, anterior tibial and posterior tibial arteries. Peak systolic velocities within the dorsalis pedis artery measure up to 16 cm/s. IMPRESSION: 1. Occluded superficial femoral arterial stent. 2. Posterior tibial arterial occlusion. 3. Blunted monophasic waveforms within the lower leg. ACT 112: Negative or not required by law. The above report was generated using voice recognition software. It may contain grammatical, syntax or spelling errors. Electronically signed by: Mars Cespedes M.D. 11/07/2021 8:33 PM Foot X-Ray 11/07/21 18:18 XR tibia fibula RT 2V, XR foot RT min 3V routine HISTORY: 71 years-old Female pain . Acute pain of the right foot, tibia and fibula with soft tissue swelling COMPARISON: Right knee radiographs 02/28/2020, MRI right foot 10/25/2021 TECHNIQUE: 2 views of the right tibia and fibula with 3 views of the right foot FINDINGS: TIBIA/FIBULA: Hinged knee arthroplasty with elongated tibial and femoral stems. Demineralized appearance of the bones. Healed fracture deformity of the distal fibula. No acute fracture or dislocation. Soft tissue and arterial calcifications. FOOT: There is severe multifocal joint space narrowing. Fusion of the first MTP joint with postoperative changes of the first digit. A cerclage wire is noted involving the fifth metatarsal. No acute fracture or dislocation identified. Soft tissue swelling of the lower leg, foot and ankle. Chronic remodeling of the tibiotalar joint, midfoot and hindfoot. IMPRESSION: 1. Soft tissue swelling without acute fracture or dislocation. 2. Chronic posttraumatic and degenerative changes as above. 3. Severe multifocal joint space narrowing with chronic remodeling of the foot and ankle. 4. Healed chronic fracture of the distal fibula. ACT 112: Negative or not required by law. The above report was generated using voice recognition software. It may contain grammatical, syntax or spelling errors. Electronically signed by: Mars Cespedes M.D. 11/07/2021 7:04 PM Tibia/Fibula X-Ray 11/07/21 18:18 XR tibia fibula RT 2V, XR foot RT min 3V routine HISTORY: 71 years-old Female pain . Acute pain of the right foot, tibia and fibula with soft tissue swelling COMPARISON: Right knee radiographs 02/28/2020, MRI right foot 10/25/2021 TECHNIQUE: 2 views of the right tibia and fibula with 3 views of the right foot FINDINGS: TIBIA/FIBULA: Hinged knee arthroplasty with elongated tibial and femoral stems. Demineralized appearance of the bones. Healed fracture deformity of the distal fibula. No acute fracture or dislocation. Soft tissue and arterial calcifications. FOOT: There is severe multifocal joint space narrowing. Fusion of the first MTP joint with postoperative changes of the first digit. A cerclage wire is noted in volving the fifth metatarsal. No acute fracture or dislocation identified. Soft tissue swelling of the lower leg, foot and ankle. Chronic remodeling of the tibiotalar joint, midfoot and hindfoot. IMPRESSION: 1. Soft tissue swelling without acute fracture or dislocation. 2. Chronic posttraumatic and degenerative changes as above. 3. Severe multifocal joint space narrowing with chronic remodeling of the foot and ankle. 4. Healed chronic fracture of the distal fibula. ACT 112: Negative or not required by law. The above report was generated using voice recognition software. It may contain grammatical, syntax or spelling errors. Electronically signed by: Mars Cespedes M.D. 11/07/2021 7:04 PM Discharge Plan Visit Data Chief Complaint: Leg Injury/Pain Stated Complaint: R LEG STENT PLACED YESTERDAY, INFECTION ED Provider: Yg Jim Discharge Problem: Leg pain, right, Superficial occlusion of femoral artery Patient Disposition: Being Evaluated by Hospitalist Forms Stand Alone Forms: [email or web address] Prescriptions Prescriptions: No Action meclizine 25 mg tablet 25 mg PO BID PRN (Reason: dizziness) Qty: 20 RF: 0 oxybutynin chloride 5 mg tablet 5 mg PO BID Qty: 180 RF: 1 Eliquis 5 mg tablet 5 mg PO BID Qty: 180 RF: 1 sennosides [senna] 8.6 mg tablet 8.6 mg PO DAILY PRN (Reason: Constipation) RF: 0 leflunomide [Arava] 20 mg tablet 20 mg PO QAM RF: 0 metoprolol tartrate 50 mg tablet 50 mg PO BID Qty: 180 RF: 3 (DME) Knee Stabilizer misc See Dose Instructions .ROUTE .MEDSUPPLY Qty: 1 RF: 0 prednisone 5 mg Tablet 5 mg PO QAM RF: 0 prednisone 1 mg Tablet 1 mg PO QPM RF: 0 Probiotic 3 billion cell Capsule 3,000 mmu cells PO QAM RF: 0 Macuvite [facility] Care 7,160 unit-113 mg-100 unit Tablet 1 tab PO QAM RF: 0 calcitriol [Rocaltrol] 0.5 mcg capsule 0.5 mcg PO 2XWK RF: 0 omeprazole 20 mg capsule,delayed release(DR/EC) 20 mg PO BID RF: 0 cranberry 500 mg Capsule 500 mg PO QPM RF: 0 gabapentin 300 mg capsule 300 mg PO TID RF: 0 Calcium 600 + D(3) 600 mg calcium- 200 unit Capsule 1 cap PO BID RF: 0 hydrocodone-acetaminophen 10-325 mg tablet 1 tab PO Q4 PRN (Reason: Pain) RF: 0 ferrous sulfate 325 mg (65 mg iron) Tablet 325 mg PO QAM RF: 0 cephalexin 500 mg capsule 500 mg PO TID RF: 0 hydroxychloroquine [Plaquenil] 200 mg tablet 200 mg PO DAILY RF: 0 Referrals Referrals: Sylvia Nails MD [Primary Care Provider] -
[2021-11-07 18:53] LABS: INR 1.1 (0.9-1.1); Partial Thromboplastin Ratio 1.1; Partial Thromboplastin Time 29.5 Seconds (21.0-31.0); Prothrombin Time 11.6 Seconds (9.0-12.0)
[2021-11-07 19:05] LABS: Alanine Aminotransferase 8 U/L (7-52); Albumin Globulin Ratio 1.4 (0.9-2); Albumin Level 3.5 gm/dl (3.4-5.0); Alkaline Phosphatase 68 U/L (34-104); Anion Gap 7 (3-11); Aspartate Aminotransferase 11 U/L (13-39); BUN Creatinine Ratio 21.7 (10-20); Bilirubin,Total 0.6 mg/dl (0.2-1.0); Blood Urea Nitrogen 13 mg/dl (6-23); Calcium 8.8 mg/dl (8.5-10.1); Carbon Dioxide 28 mmol/L (21-32); Chloride 105 mmol/L (98-107); Est GFR (African American) 104.8 ml/min; Est GFR (Non-African American) 90.4 ml/min; Globulin 2.5 gm/dl (2.5-4.0); Glucose 96 mg/dl (70-99(Fasting)); Potassium 4.5 mmol/L (3.5-5.1); Sodium 140 mmol/L (136-145)
--- NOTE | 2021-11-07 19:06 | XRay Report ---
XR tibia fibula RT 2V, XR foot RT min 3V routine HISTORY: 71 years-old Female pain . Acute pain of the right foot, tibia and fibula with soft tissue swelling COMPARISON: Right knee radiographs 02/28/2020, MRI right foot 10/25/2021 TECHNIQUE: 2 views of the righ t tibia and fibula with 3 views of the right foot FINDINGS: TIBIA/FIBULA: Hinged knee arthroplasty with elongated tibial and femoral stems. Demineralized appearance of the bon es. Healed fracture deformity of the distal fibula. No acute fracture or dislocation. Soft tissue and arterial calcifications. FOOT: There is severe multifocal joint space narrowing. Fusion of the first MTP joint with postoperative ch anges of the first digit. A cerclage wire is noted involving the fifth metatarsal. No acute fracture or dislocation identified. Soft tissue swelling of the lower leg, foot and ankle. Chronic remodeling of the tibiotalar joint, midfoot and hindfoot. IMPRESSION: 1. Soft tissue swelling without acute fracture or dislocation. 2. Chronic posttraumatic and degenerative changes as above. 3. Severe multifocal joint space narrowing with chronic remodeling of the foot and ankle. 4. Healed chronic fracture of the distal fibula. ACT 112: Negative or not required by law. The above report was generated using voice recognition software. It may contain grammatical, syntax o r spelling errors. Electronically signed by: Mars Cespedes M.D. 11/07/2021 7:04 PM
--- NOTE | 2021-11-07 20:35 | Ultrasound Report ---
US arterial duplex LE RT HISTORY: 71 years-old Female s/p femoral stent, increased pain . Pain and swelling of the right lowe r extremity status post placement of a femoral stent COMPARISON: Fluoroscopic angiogram images of the right lower extremity dated 11/06/2021 TECHNIQUE: Multiple real-time sonographic images of the right lower extremity arterial structures wer e obtained assessing grayscale appearance, color and spectral flow FINDINGS: Diffuse atherosclerosis. Triphasic waveforms are noted within the profunda femoris and common femoral arteries. Triphasic waveforms within the superficial femoral artery demonstrate elevated peak systolic velociti es measuring up to 320 cm/s proximally. There is a stent within the proximal to mid superficial femor al artery which is occluded reconstitution of flow noted within the distal superficial femoral artery where there are monophasic waveforms. Elevated peak systolic velocities within the distal superficia l femoral artery measure up to 270 cm/s. Collateral vessels are noted adjacent to the superficial femoral artery. Blunted monophasic waveforms within the popliteal artery. Occlusion/near occlusion of the posterior tibial artery with markedly b lunted monophasic waveforms demonstrating spectral broadening with peak systolic velocities measuring up to 17 cm/s. Questioned reversal of flow within the peroneal artery. Blunted monophasic waveforms within the dorsalis pedis, anterior tibial and posterior tibial arteries. Peak systolic velocities wi thin the dorsalis pedis artery measure up to 16 cm/s. IMPRESSION: 1. Occluded superficial femoral arterial stent. 2. Posterior tibial arterial occlusion. 3. Blunted monophasic waveforms within the lower leg. ACT 112: Negative or not required by law. The above report was generated using voice recognition software. It may contain grammatical, syntax o r spelling errors. Electronically signed by: Mars Cespedes M.D. 11/07/2021 8:33 PM
[2021-11-07 20:40] LABS: Basophils # (auto) 0.03 K/uL (0-0.2); Basophils % (auto) 0.2 %; Eosinophils # (auto) 0.06 K/uL (0-0.5); Eosinophils % (auto) 0.4 %; Hemoglobin 11.3 g/dL (12.0-16.0); Immature Granulocytes # (auto) 0.05 K/uL (0.00-0.02); Immature Granulocytes % (auto) 0.3 %; Lymphocytes # (auto) 2.33 K/uL (1.2-3.4); Lymphocytes % (auto) 16.2 %; Mean Corpuscular Hemoglobin 28.6 pg (25-34); Mean Corpuscular Hgb Conc 31.4 g/dL (32-36); Mean Corpuscular Volume 91.1 fL (80-100); Monocytes # (auto) 2.07 K/uL (0.11-0.59); Monocytes % (auto) 14.4 %; Neutrophils # (auto) 9.85 K/uL (1.4-6.5); Neutrophils % (auto) 68.5 %; Platelet Count 219 K/uL (130-400); RDW Coefficient of Variation 15.3 % (11.5-14.5); RDW Standard Deviation 51.4 fL (36.4-46.3); Red Blood Count 3.95 M/uL (4.2-5.4); White Blood Count 14.39 K/uL (4.8-10.8)
[2021-11-07] MEDS ORDERED: Heparin IV Adult Wt-Based Standard WITH Bolus Protocol IV STA (21:01)
[2021-11-07] MEDS ORDERED: cefTRIAXone SODIUM 1,000 MG/50 ML BAG IV STA (21:01)
[2021-11-07] MEDS ORDERED: HEPARIN SOD (PORCINE) 1000 UNIT/ML IV ONE (21:16)
[2021-11-07] MEDS ORDERED: HEPARIN SODIUM/DEXTROSE 25,000 UNITS/500 ML BAG IV SCH (21:30)
[2021-11-07] MEDS ORDERED: MoRPHine SULFATE 2 MG/ML CARP IV STA (21:43)
[2021-11-07] MEDS ORDERED: ACETAMINOPHEN 1,000 MG/100 ML VIAL IV STA (21:43)
--- NOTE | 2021-11-07 21:55 | History & Physical Report ---
Date of Service November 07, 2021 Assessment & Plan (1) Occlusion of stent of peripheral artery: Plan: 71yo female with history of peripheral arterial disease s/p RLE arteriogram with stenting of right SFA performed 11/06/21 returning with RLE thigh and calf pain, pain in the foot with discoloration and pallor. Found to have occluded superficial femoral arterial stent as well as posterior tibial arterial occlusion. Case discussed between ER attending and Vascular Surgery -Admit to medical -Heparin gtt -pain control with Hydrocodone/Acetaminophen 10/325mg q 4 hours PRN -Morphine 1mg IV q 4 hours PRN -Zofran PRN nausea -Colace, Senokot, Miralax as needed for constipation -Antibiotic coverage with Ceftriaxone and Daptomycin -Vascular surgery consultation appreciated -Will keep NPO after midnight for possible procedure in AM (2) Peripheral arterial disease: Plan: With arterial occlusion s/p stenting -Heparin gtt -?Statin use on discharge (3) Rheumatoid arthritis: Plan: Chronic. Stable -Continue Plaquenil -Continue Prednisone 5mg po qAM, 1mg po qPM. Low threshold for stress dosed steroids if patient becomes hypotensive (4) PAF (paroxysmal atrial fibrillation): Plan: Rate controlled. On Metoprolol and anticoagulation with Eliquis -Continue metoprolol 50mg po BID -Hold Eliquis in favor of heparin gtt (5) Hypertension: Plan: Blood pressure elevated at present -Pain control -Continue Metoprolol -Continue to monitor (6) GERD (gastroesophageal reflux disease): Plan: Chronic. On Omeprazole BID at home -Protonix 40mg po daily (7) Overactive bladder: Plan: Chronic. Controlled on medication -Continue Oxybutynin -PureWick catheter ordered Plan: F/E/N - LR at 80mL/hr x 2 liters. Electrolytes WNL. NPO after midnight Ppx - Heparin gtt Code - Full Dispo - Admit to medical History of Present Illness Chief Complaint: LLE pain Primary Care Provider: Sylvia Nails MD Jacklyn Esparza is a 71yo female with history of HTN, PAF on Eliquis anticoagulation, RA and peripheral vascular disease. She was seen By Dr. Kelly on 11/06/21 with complaint of pain at rest of the right foot which has been ongoing x 1 month. She noted a dusky discoloration of her foot which was worsening over the last 2 weeks. Her pain was becoming more severe and interfering with her sleep which is what prompted her to see Dr. Kelly. She had an arterial ultrasound of the RLE which demonstrated significant stenosis of the SFA as well as severe infrapopliteal disease. ABIs were not performed due to severely calcified and noncompressible arteries. She had a RLE arteriogram with percutaneous transluminal angioplasty and stenting of the right SFA with mechanical closure performed on 11/06/21 under general anesthesia. Procedure was well tolerated. Patient was discharged home with improvement in pain. She slept well. Unfortunately this afternoon she developed pain in her posterior right thigh as well as right calf and dusky discoloration of the right forefoot with pallor of toes. Her pain is severe, difficulty with ambulation. She presents to the ER with the above complaint. Afebrile, tachycardic and hypertensive in moderate amount of discomfort. She offers no additional complaints - specifically denies fever, chills, chest pain, cough, SOB, abdominal pain, nausea, vomiting, diarrhea or constipation. I assisted her to the bathroom with her and walker. She had severe discomfort in her right thigh and calf with ambulation. ER Course: Ceftriaxone, Heparin gtt Allergies Allergy/AdvReac Type Severity Reaction Status Date / Time dalbavancin Allergy Severe hypotension, Verified 11/07/21 20:59 flushing, tachypnea Home Medications Medication Instructions Recorded Confirmed Type lactobacillus combination no.4 3 3,000 mmu cells PO QAM 03/30/18 11/07/21 History billion cell capsule (Probiotic) prednisone 1 mg tablet 1 mg PO QPM 03/30/18 11/07/21 History prednisone 5 mg tablet 5 mg PO QAM 03/30/18 11/07/21 History cranberry 500 mg capsule 500 mg PO QPM 09/29/18 11/07/21 History omeprazole 20 mg capsule,delayed 20 mg PO BID 09/29/18 11/07/21 History release vit A 7,160 unit-vit C 113 mg-vit 1 tab PO QAM 10/08/18 11/07/21 History E-zinc [id number] 1 mg tablet ([facility]) leg brace (Knee Stabilizer) #1 ea 02/10/19 10/02/21 Rx calcitriol 0.5 mcg capsule 0.5 mcg PO 2XWK 02/21/20 11/07/21 History (Rocaltrol) leflunomide 20 mg tablet (Arava) 20 mg PO QAM 03/27/20 11/07/21 History calcium carbonate 600 mg-vitamin 1 cap PO BID 07/16/20 11/07/21 History D3 5 mcg (200 unit) capsule (Calcium 600 + D(3)) gabapentin 300 mg capsule 300 mg PO TID 07/16/20 11/07/21 History metoprolol tartrate 50 mg tablet 50 mg PO BID #180 tab 12/27/20 11/07/21 Rx sennosides 8.6 mg tablet (senna) 8.6 mg PO DAILY PRN 02/28/21 11/07/21 History hydrocodone 10 mg-acetaminophen 1 tab PO Q4 PRN 03/07/21 11/07/21 History 325 mg tablet meclizine 25 mg tablet 25 mg PO BID PRN #20 tab 07/26/21 11/07/21 Rx apixaban 5 mg tablet (Eliquis) 5 mg PO BID #180 tab 08/28/21 11/07/21 Rx oxybutynin chloride 5 mg tablet 5 mg PO BID #180 tab 08/28/21 11/07/21 Rx ferrous sulfate 325 mg (65 mg 325 mg PO QAM 09/26/21 11/07/21 History iron) tablet hydroxychloroquine 200 mg tablet 200 mg PO DAILY tab 10/02/21 11/07/21 History (Plaquenil) cephalexin 500 mg capsule 500 mg PO TID 11/07/21 11/07/21 History Past Med/Surg History Medical History (Updated 11/07/21 @ 22:38 by Lexis Brady DO) Chronic back pain DDD (degenerative disc disease) GERD (gastroesophageal reflux disease) controlled History of COVID-19 hospitalized 07/16/20 [facility]. hypoxia, fever, cough, chills, loss of taste/smell. pt reports taste/smell still not fully back to normal. History of Hodgkin's lymphoma 2003/under surveillance by PCP/Dr. Thibodeaux- S/p chemo in 2003- none since History of oral cancer s/p tongue excision left side (no chemo/no XRT 2013) No issues since Hypertension Overactive bladder PAF (paroxysmal atrial fibrillation) hx - on Eliquis Paroxysmal SVT (supraventricular tachycardia) hx (follows with Dr. Vance) Peripheral arterial disease PONV (postoperative nausea and vomiting) RA (rheumatoid arthritis) on chronic steroid Skin benign neoplasm Vertigo No current issues Surgical History H/O foot surgery TOES X MULTIPLE H/O parathyroidectomy History of biopsy Of soft tissue of the neck History of breast surgery Puncture aspiration of cyst History of carpal tunnel release RIGHT History of colonoscopy History of colposcopy with cervical biopsy with endocervical curettage History of glossectomy with unilateral radical neck dissection History of hip surgery R/L REVISION Left MAURO revision: 11/09/18: SABx1 at L3-L4 at [facility] History of spinal surgery 10/02/[address] [facility] [address] Sanford History of total hip arthroplasty R/L History of total knee replacement R/L History of tubal ligation Hx of hand surgery RIGHT Hx of knee surgery most recent 02/28/2020 [facility] Right TKA revision, I&D, antibiotic spacer: 12/29/19: SAB + PNB at [facility] S/P revision of total knee 12/29/19 Dr. 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 Packer Required: No Beliefs That Will Affect Care: None marital status: Current Living Situation: Spouse current occupational status: retired Feels Safe at Home: Yes Childhood Exposure to Second-Hand Smoke: Yes caffeine: Yes Dental Care, Regularly: Yes Physical Activity Frequency: Other Physical Activity Frequency Comment: Limited by a physical condition Seatbelt Use: always Sunscreen Use: Yes Assistive Devices: Glasses and Walker Review of Systems Review of Systems: All systems reviewed & are unremarkable except as noted in HPI & below Physical Exam Physical Exam: General: patient resting in bed, mild distress secondary to discomfort, AA&O x 4 Skin: warm, dry, no rash. See extremity exam below for details of right foot exam HEENT: NC/AT, PERRL, EOMI, anicteric sclera, conjunctiva without injection, external ear normal to inspection and nontender, nares patent, dry mucus membranes, dentition intact, no oropharyngeal lesions, neck supple, trachea midline, no LAD, no thyromegaly, no JVD Heart: +S1/S2, regular, no m/r/g Lungs: equal air entry bilaterally, no rales/rhonchi/wheezes Abd: +BS, soft, NT/ND, no masses/organomegaly/ascites Ext: cool, monophasic flow dopplerable at right DP, pallor of right toes, dusky discoloration of right forefoot, lesion/ulcer present at midfoot, no bleeding/drainage Neuro: nonfocal, patient AA&O x 4, speech intact, no facial droop, moving all extremities on command with equal strength 5/5 Results & Data Results & Data ([facility]) Vital Signs (Past 12 Hours) Vital Signs Temp Pulse Resp BP Pulse Ox 11/07/21 17:42 37.7 C H 116 H 16 178/75 H 96 Laboratory Results Laboratory Results WBC 14.39 K/uL (4.8-10.8) H 11/07/21 20:18 RBC 3.95 M/uL (4.2-5.4) L 11/07/21 20:18 Hgb 11.3 g/dL (12.0-16.0) L 11/07/21 20:18 Hct 36.0 % (37-47) L 11/07/21 20:18 MCV 91.1 fL (80-100) 11/07/21 20:18 MCH 28.6 pg (25-34) 11/07/21 20:18 MCHC 31.4 g/dL (32-36) L 11/07/21 20:18 RDW Std Deviation 51.4 fL (36.4-46.3) H 11/07/21 20:18 RDW Coeff of Jarvis 15.3 % (11.5-14.5) H 11/07/21 20:18 Plt Count 219 K/uL (130-400) 11/07/21 20:18 MPV 10.0 fL (7.4-10.4) 11/07/21 20:18 Immature Gran % (Auto) 0.3 % 11/07/21 20:18 Neut % (Auto) 68.5 % 11/07/21 20:18 Lymph % (Auto) 16.2 % 11/07/21 20:18 [place] % (Auto) 14.4 % 11/07/21 20:18 Eos % (Auto) 0.4 % 11/07/21 20:18 Baso % (Auto) 0.2 % 11/07/21 20:18 Neut # (Auto) 9.85 K/uL (1.4-6.5) H 11/07/21 20:18 Lymph # (Auto) 2.33 K/uL (1.2-3.4) 11/07/21 20:18 [place] # (Auto) 2.07 K/uL (0.11-0.59) H 11/07/21 20:18 Eos # (Auto) 0.06 K/uL (0-0.5) 11/07/21 20:18 Baso # (Auto) 0.03 K/uL (0-0.2) 11/07/21 20:18 Immature Gran # (Auto) 0.05 K/uL (0.00-0.02) H 11/07/21 20:18 PT 11.6 Seconds (9.0-12.0) 11/07/21 18:18 INR 1.1 (0.9-1.1) 11/07/21 18:18 APTT 29.5 Seconds (21.0-31.0) 11/07/21 18:18 PTT Ratio 1.1 11/07/21 18:18 Sodium 140 mmol/L (136-145) 11/07/21 18:18 Potassium 4.5 mmol/L (3.5-5.1) 11/07/21 18:18 Chloride 105 mmol/L (98-107) 11/07/21 18:18 Carbon Dioxide 28 mmol/L (21-32) 11/07/21 18:18 Anion Gap 7 (3-11) 11/07/21 18:18 BUN 13 mg/dl (6-23) 11/07/21 18:18 Creatinine 0.60 mg/dl (0.6-1.2) 11/07/21 18:18 Est Cr Clr Drug Dosing Not Reportable 11/07/21 18:18 Est GFR ( Amer) 104.8 ml/min 11/07/21 18:18 Est GFR (Non-Af Amer) 90.4 ml/min 11/07/21 18:18 BUN/Creatinine Ratio 21.7 (10-20) H 11/07/21 18:18 Glucose 96 mg/dl (70-99(Fasting)) 11/07/21 18:18 Calcium 8.8 mg/dl (8.5-10.1) 11/07/21 18:18 Total Bilirubin 0.6 mg/dl (0.2-1.0) 11/07/21 18:18 AST 11 U/L (13-39) L 11/07/21 18:18 ALT 8 U/L (7-52) 11/07/21 18:18 Alkaline Phosphatase 68 U/L (34-104) 11/07/21 18:18 Total Protein 6.0 gm/dl (6.0-8.3) 11/07/21 18:18 Albumin 3.5 gm/dl (3.4-5.0) 11/07/21 18:18 Globulin 2.5 gm/dl (2.5-4.0) 11/07/21 18:18 Albumin/Globulin Ratio 1.4 (0.9-2) 11/07/21 18:18 Procalcitonin 0.06 ng/ml (0-0.5) 11/07/21 18:18 Impressions Duplex Scan Lower Extremity Artery 11/07/21 18:16 US arterial duplex LE RT HISTORY: 71 years-old Female s/p femoral stent, increased pain . Pain and swelling of the right lower extremity status post placement of a femoral stent COMPARISON: Fluoroscopic angiogram images of the right lower extremity dated 11/06/2021 TECHNIQUE: Multiple real-time sonographic images of the right lower extremity arterial structures were obtained assessing grayscale appearance, color and spectral flow FINDINGS: Diffuse atherosclerosis. Triphasic waveforms are noted within the profunda femoris and common femoral arteries. Triphasic waveforms within the superficial femoral artery demonstrate elevated peak systolic velocities measuring up to 320 cm/s proximally. There is a stent within the proximal to mid superficial femoral artery which is occluded reconstitution of flow noted within the distal superficial femoral artery where there are monophasic waveforms. Elevated peak systolic velocities within the distal superficial femoral artery measure up to 270 cm/s. Collateral vessels are noted adjacent to the superficial femoral artery. Blunted monophasic waveforms within the popliteal artery. Occlusion/near occlusion of the posterior tibial artery with markedly blunted monophasic waveforms demonstrating spectral broadening with peak systolic velocities measuring up to 17 cm/s. Questioned reversal of flow within the peroneal artery. Blunted monophasic waveforms within the dorsalis pedis, anterior tibial and posterior tibial arteries. Peak systolic velocities within the dorsalis pedis artery measure up to 16 cm/s. IMPRESSION: 1. Occluded superficial femoral arterial stent. 2. Posterior tibial arterial occlusion. 3. Blunted monophasic waveforms within the lower leg. ACT 112: Negative or not required by law. The above report was generated using voice recognition software. It may contain grammatical, syntax or spelling errors. Electronically signed by: Mars Cespedes M.D. 11/07/2021 8:33 PM Foot X-Ray 11/07/21 18:18 XR tibia fibula RT 2V, XR foot RT min 3V routine HISTORY: 71 years-old Female pain . Acute pain of the right foot, tibia and fibula with soft tissue swelling COMPARISON: Right knee radiographs 02/28/2020, MRI right foot 10/25/2021 TECHNIQUE: 2 views of the right tibia and fibula with 3 views of the right foot FINDINGS: TIBIA/FIBULA: Hinged knee arthroplasty with elongated tibial and femoral stems. Demineralized appearance of the bones. Healed fracture deformity of the distal fibula. No acute fracture or dislocation. Soft tissue and arterial calcifications. FOOT: There is severe multifocal joint space narrowing. Fusion of the first MTP joint with postoperative changes of the first digit. A cerclage wire is noted involving the fifth metatarsal. No acute fracture or dislocation identified. Soft tissue swelling of the lower leg, foot and ankle. Chronic remodeling of the tibiotalar joint, midfoot and hindfoot. IMPRESSION: 1. Soft tissue swelling without acute fracture or dislocation. 2. Chronic posttraumatic and degenerative changes as above. 3. Severe multifocal joint space narrowing with chronic remodeling of the foot and ankle. 4. Healed chronic fracture of the distal fibula. ACT 112: Negative or not required by law. The above report was generated using voice recognition software. It may contain grammatical, syntax or spelling errors. Electronically signed by: Mars Cespedes M.D. 11/07/2021 7:04 PM Tibia/Fibula X-Ray 11/07/21 18:18 XR tibia fibula RT 2V, XR foot RT min 3V routine HISTORY: 71 years-old Female pain . Acute pain of the right foot, tibia and fibula with soft tissue swelling COMPARISON: Right knee radiographs 02/28/2020, MRI right foot 10/25/2021 TECHNIQUE: 2 views of the right tibia and fibula with 3 views of the right foot FINDINGS: TIBIA/FIBULA: Hinged knee arthroplasty with elongated tibial and femoral stems. Demineralized appearance of the bones. Healed fracture deformity of the distal fibula. No acute fracture or dislocation. Soft tissue and arterial calcifications. FOOT: There is severe multifocal joint space narrowing. Fusion of the first MTP joint with postoperative changes of the first digit. A cerclage wire is noted involving the fifth metatarsal. No acute fracture or dislocation identified. Soft tissue swelling of the lower leg, foot and ankle. Chronic remodeling of the tibiotalar joint, midfoot and hindfoot. IMPRESSION: 1. Soft tissue swelling without acute fracture or dislocation. 2. Chronic posttraumatic and degenerative changes as above. 3. Severe multifocal joint space narrowing with chronic remodeling of the foot and ankle. 4. Healed chronic fracture of the distal fibula. ACT 112: Negative or not required by law. The above report was generated using voice recognition software. It may contain grammatical, syntax or spelling errors. Electronically signed by: Mars Cespedes M.D. 11/07/2021 7:04 PM Code Status & VTE Plan VTE Prophylaxis Plan VTE Prophylaxis will be ordered: Yes PG Care Time/CCT Total # of Minutes Spent Total Time Spent with Patient: Total time spent is greater than 50% in coordination of care (as documented) at patient's floor/unit and/or counseling patient: Coding Level of Care Code 14869 Initial Inpt Care Lvl 3 Diagnoses Rheumatoid arthritis M06.9 Hypertension I10 GERD (gastroesophageal reflux disease) K21.9 PAF (paroxysmal atrial fibrillation) I48.0 Overactive bladder N32.81 Peripheral arterial disease I73.9 Occlusion of stent of peripheral artery T82.599A
[2021-11-07] MEDS ORDERED: DOCUSATE SODIUM 100 MG CAP PO PRN (23:46)
[2021-11-07] MEDS ORDERED: CALCITRIOL 0.25 MCG CAPSULE PO SCH (23:46)
[2021-11-07] MEDS ORDERED: HYDROcodone/ACETAMINOPHEN 10/325 TAB PO PRN (23:46)
[2021-11-08 00:07] LABS: Magnesium 1.7 mg/dl (1.7-2.4)
[2021-11-08] MEDS: LACTATED RINGER'S 1,000 ML IV SCH ×2 (01:03→15:40)
[2021-11-08] MEDS: MoRPHine SULFATE 2 MG/ML CARP IV PRN ×2 (01:04→15:57)
[2021-11-08] MEDS: DAPTOmycin 200 MG in SYRINGE 0 ML IV SCH ×2 (01:07→23:46)
[2021-11-08 04:41] LABS: Basophils # (auto) 0.02 K/uL (0-0.2); Basophils % (auto) 0.2 %; Eosinophils # (auto) 0.08 K/uL (0-0.5); Eosinophils % (auto) 0.7 %; Hematocrit (blood only) 34.5 % (37-47); Immature Granulocytes # (auto) 0.05 K/uL (0.00-0.02); Immature Granulocytes % (auto) 0.4 %; Lymphocytes # (auto) 2.84 K/uL (1.2-3.4); Lymphocytes % (auto) 23.3 %; Mean Corpuscular Hemoglobin 28.9 pg (25-34); Mean Corpuscular Hgb Conc 31.9 g/dL (32-36); Mean Corpuscular Volume 90.6 fL (80-100); Mean Platelet Volume 9.4 fL (7.4-10.4); Monocytes # (auto) 1.82 K/uL (0.11-0.59); Monocytes % (auto) 14.9 %; Neutrophils % (auto) 60.5 %; Platelet Count 195 K/uL (130-400); RDW Coefficient of Variation 15.2 % (11.5-14.5); RDW Standard Deviation 50.2 fL (36.4-46.3); Red Blood Count 3.81 M/uL (4.2-5.4); White Blood Count 12.21 K/uL (4.8-10.8)
[2021-11-08 05:13] LABS: Partial Thromboplastin Ratio 2.6
[2021-11-08 05:33] LABS: Partial Thromboplastin Time 71.9 Seconds (21.0-31.0)
[2021-11-08] MEDS: PANTOprazole 40 MG TAB PO SCH (07:56)
[2021-11-08] MEDS: GABAPENTIN 300 MG CAP PO SCH ×3 (07:56→21:46)
[2021-11-08] MEDS: predniSONE 5 MG TAB PO SCH (07:56)
[2021-11-08] MEDS: CALCITRIOL 0.25 MCG CAPSULE PO SCH (07:56)
[2021-11-08] MEDS: METOPROLOL TARTRATE 50 MG TAB PO SCH ×2 (07:57→21:47)
[2021-11-08] MEDS: HYDROXYCHLOROQUINE SULFATE 200 MG TAB PO SCH (07:57)
[2021-11-08] MEDS: OXYBUTYNIN CHLORIDE 5 MG TAB PO SCH ×2 (07:57→21:48)
--- NOTE | 2021-11-08 08:57 | Consultation ---
Date of Consultation November 08, 2021 Assessment & Plan (1) Ischemic leg pain: Pt discussed with Dr Kelly, recommends pt undergo RLE angio with possible intervention today. If her stent is thrombosed, may need to discuss AC options, since she has been on uninterrupted eliquis. Procedure, risks, benefits, and alternatives discussed with pt by myself at Dr Kelly's request. Pt expresses understanding and agreement. Patient was seen, examined, and chart reviewed. Agree with exam and treatment plan of the Vascular PA. History of Present Illness Reason for Consultation: RLE ischemia Attending Physician: Earline Carbajal MD History of Present Illness 71 yo f with hx of a fib on eliquis, HTN, osteoporosis, RA on systemic steroids, lumbar spinal stenosis, DDD, GERD, hodgkins lymphoma in remission, and PAD, admitted with worsening pain in RLE that began yesterday, seen in consultation today for ischemia of RLE. Pt originally seen by Dr Kelly on THURSDAY, 11/04, in office, for 4 week hx of rest pain of RLE. Her R foot was mottled/white at that time. US imaging was difficult due to severe calcification of arteries, so angio with intervention was recommended. Pt underwent RLE angio with SFA stent placement on THURSDAY, 11/06. Per pt, she did have some improvement in her pain level until yesterday. Pt states her R calf became very hard and she had worse pain in r leg and foot. She is unable to walk on the foot for weeks. She called our office and was advised to go to ED for eval. Pt states she has some relief of pain with hanging her foot over the bed. Denies REINA, fever, chest pain, SOB,, abd pain, N/V, other new complaints. RLE arterial US demonstrates possible thrombosis of R SFA stent, but biphasic waveforms beyond this point. Allergies Allergy/AdvReac Type Severity Reaction Status Date / Time dalbavancin Allergy Severe hypotension, Verified 11/07/21 20:59 flushing, tachypnea Home Medications Medication Instructions Recorded Confirmed Type lactobacillus combination no.4 3 3,000 mmu cells PO QAM 03/30/18 11/07/21 History billion cell capsule (Probiotic) prednisone 1 mg tablet 1 mg PO QPM 03/30/18 11/07/21 History prednisone 5 mg tablet 5 mg PO QAM 03/30/18 11/07/21 History cranberry 500 mg capsule 500 mg PO QPM 09/29/18 11/07/21 History omeprazole 20 mg capsule,delayed 20 mg PO BID 09/29/18 11/07/21 History release vit A 7,160 unit-vit C 113 mg-vit 1 tab PO QAM 10/08/18 11/07/21 History E-zinc [id number] 1 mg tablet ([facility]) leg brace (Knee Stabilizer) #1 ea 02/10/19 10/02/21 Rx calcitriol 0.5 mcg capsule 0.5 mcg PO 2XWK 02/21/20 11/07/21 History (Rocaltrol) leflunomide 20 mg tablet (Arava) 20 mg PO QAM 03/27/20 11/07/21 History calcium carbonate 600 mg-vitamin 1 cap PO BID 07/16/20 11/07/21 History D3 5 mcg (200 unit) capsule (Calcium 600 + D(3)) gabapentin 300 mg capsule 300 mg PO TID 07/16/20 11/07/21 History metoprolol tartrate 50 mg tablet 50 mg PO BID #180 tab 12/27/20 11/07/21 Rx sennosides 8.6 mg tablet (senna) 8.6 mg PO DAILY PRN 02/28/21 11/07/21 History hydrocodone 10 mg-acetaminophen 1 tab PO Q4 PRN 03/07/21 11/07/21 History 325 mg tablet meclizine 25 mg tablet 25 mg PO BID PRN #20 tab 07/26/21 11/07/21 Rx apixaban 5 mg tablet (Eliquis) 5 mg PO BID #180 tab 08/28/21 11/07/21 Rx oxybutynin chloride 5 mg tablet 5 mg PO BID #180 tab 08/28/21 11/07/21 Rx ferrous sulfate 325 mg (65 mg 325 mg PO QAM 09/26/21 11/07/21 History iron) tablet hydroxychloroquine 200 mg tablet 200 mg PO DAILY tab 10/02/21 11/07/21 History (Plaquenil) cephalexin 500 mg capsule 500 mg PO TID 11/07/21 11/07/21 History Patient History Medical History (Updated 05/06/22 @ 08:54 by Cailin Leone PA-C) Chronic back pain DDD (degenerative disc disease) GERD (gastroesophageal reflux disease) controlled History of COVID-19 hospitalized 07/16/20 [facility]. hypoxia, fever, cough, chills, loss of taste/smell. pt reports taste/smell still not fully back to normal. History of Hodgkin's lymphoma 2003/under surveillance by PCP/Dr. Thibodeaux- S/p chemo in 2003- none since History of oral cancer s/p tongue excision left side (no chemo/no XRT 2013) No issues since Hypertension Ischemic leg pain Overactive bladder PAF (paroxysmal atrial fibrillation) hx - on Eliquis Paroxysmal SVT (supraventricular tachycardia) hx (follows with Dr. Vance) Peripheral arterial disease PONV (postoperative nausea and vomiting) RA (rheumatoid arthritis) on chronic steroid Skin benign neoplasm Vertigo No current issues Surgical History H/O foot surgery TOES X MULTIPLE H/O parathyroidectomy History of biopsy Of soft tissue of the neck History of breast surgery Puncture aspiration of cyst History of carpal tunnel release RIGHT History of colonoscopy History of colposcopy with cervical biopsy with endocervical curettage History of glossectomy with unilateral radical neck dissection History of hip surgery R/L REVISION Left MAURO revision: 11/09/18: SABx1 at L3-L4 at [facility] History of spinal surgery 10/02/[address] [facility] [address]. Sanford History of total hip arthroplasty R/L History of total knee replacement R/L History of tubal ligation Hx of hand surgery RIGHT Hx of knee surgery most recent 02/28/2020 [facility] Right TKA revision, I&D, antibiotic spacer: 12/29/19: SAB + PNB at [facility] S/P revision of total knee 12/29/19 Dr. Ihsan Vela- Right total knee revision, Incision and drainage with antibiotic cement spacer Family History Mother Breast cancer Colorectal cancer Cancer Gastric cancer Aunt Colorectal cancer Other Family history non-contributory Denies family history of Ovarian cancer Prostate cancer Myocardial infarction Social History Smoking Status: Never smoker Second Hand Exposure: No; Hx Alcohol Use: No Hx Substance Use: No Preferred Language: Persian Communication Ability: Effective Visual Impairment: Limited 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: Normal Burglar Alarm Mechanic Required: No Beliefs That Will Affect Care: None marital status: Current Living Situation: Spouse current occupational status: retired Feels Safe at Home: Yes Childhood Exposure to Second-Hand Smoke: Yes caffeine: Yes Dental Care, Regularly: Yes Physical Activity Frequency: Other Physical Activity Frequency Comment: Limited by a physical condition Seatbelt Use: always Sunscreen Use: Yes Assistive Devices: Walker Review of Systems Review of Systems: All systems reviewed & are unremarkable except as noted in HPI & below Physical Exam Constitutional: WD/WN, vitals as above cooperative and + in distress (tearful) ENMT: Ears: no hearing impairment Neck: trachea midline Respiratory: normal respiratory effort, lungs clear to auscultation Cardiovascular: Rate/Rhythm: + irregularly irregular Vessels: posterior tibial pulses present (dopplerable), dorsalis pedis pulses present (dopplerable) and radial pulses present; + abnormal peripheral pulses Extremities: + abnormal capillary refill (RLE no cap refill to toes, LLE normal) Gastrointestinal (Abdomen): Inspection/Auscultation: abdomen normal to inspection and normal bowel sounds Percussion/Palpation: abdomen soft; abdomen nontender Musculoskeletal: Extremities: + cyanosis (R toes with pallor/bluish discoloration) Skin: + erythema (R ankle to mid foot dependent rubor), + eschar (R 1st MTP) and + mottling (r foot) Neurologic: moves all extremities and awake; no focal motor deficits and not confused Psychiatric: Orientation: alert and oriented x 3 Affect: + depressed affect, + anxious affect and + tearful affect Results & Data ([facility]) Vital Signs (Past 12 Hours) Vital Signs Temp Pulse Resp BP Pulse Ox 11/08/21 07:33 36.9 C 101 H 16 181/66 H 95 11/08/21 00:17 37.9 C H 119 H 16 166/65 H 94
--- NOTE | 2021-11-08 09:25 | Anesthesiology Consultation ---
Date of Service November 08, 2021 Assessment & Plan (1) Encounter for pre-operative examination: Chart Review Chart Review: pharmacy order entry technician initiated History Surgery Operation Date: 11/08/21 09:40 Proposed Procedures p Right Leg Angiogram with Intervention - Jun Kelly MD Height/Weight Height: 5 ft 2 in Weight: 57.153 kg Allergies Allergy/AdvReac Type Severity Reaction Status Date / Time dalbavancin Allergy Severe hypotension, Verified 11/07/21 20:59 flushing, tachypnea Medications Home Medications Medication Instructions Recorded Confirmed Last Taken lactobacillus combination no.4 3 3,000 mmu cells PO QAM 03/30/18 11/07/21 11/05/21 07:30 billion cell capsule (Probiotic) prednisone 1 mg tablet 1 mg PO QPM 03/30/18 11/07/21 11/05/21 18:00 prednisone 5 mg tablet 5 mg PO QAM 03/30/18 11/07/21 11/07/21 08:00 cranberry 500 mg capsule 500 mg PO QPM 09/29/18 11/07/21 11/05/21 18:00 omeprazole 20 mg capsule,delayed 20 mg PO BID 09/29/18 11/07/21 11/05/21 18:30 release vit A 7,160 unit-vit C 113 mg-vit 1 tab PO QAM 10/08/18 11/07/21 11/05/21 07:30 E-zinc [id number] 1 mg tablet ([facility]) leg brace (Knee Stabilizer) #1 ea 02/10/19 10/02/21 Unknown calcitriol 0.5 mcg capsule 0.5 mcg PO 2XWK 02/21/20 11/07/21 11/04/21 (Rocaltrol) leflunomide 20 mg tablet (Arava) 20 mg PO QAM 03/27/20 11/07/21 11/05/21 07:30 calcium carbonate 600 mg-vitamin 1 cap PO BID 07/16/20 11/07/21 11/05/21 18:00 D3 5 mcg (200 unit) capsule (Calcium 600 + D(3)) gabapentin 300 mg capsule 300 mg PO TID 07/16/20 11/07/21 11/05/21 21:00 metoprolol tartrate 50 mg tablet 50 mg PO BID #180 tab 12/27/20 11/07/21 11/06/21 07:30 sennosides 8.6 mg tablet (senna) 8.6 mg PO DAILY PRN 02/28/21 11/07/21 11/03/21 hydrocodone 10 mg-acetaminophen 1 tab PO Q4 PRN 03/07/21 11/07/21 11/07/21 09:00 325 mg tablet meclizine 25 mg tablet 25 mg PO BID PRN #20 tab 07/26/21 11/07/21 1 Month Ago ~10/07/21 apixaban 5 mg tablet (Eliquis) 5 mg PO BID #180 tab 08/28/21 11/07/21 11/07/21 08:00 oxybutynin chloride 5 mg tablet 5 mg PO BID #180 tab 08/28/21 11/07/21 11/05/21 18:00 ferrous sulfate 325 mg (65 mg 325 mg PO QAM 09/26/21 11/07/21 11/05/21 07:30 iron) tablet hydroxychloroquine 200 mg tablet 200 mg PO DAILY tab 10/02/21 11/07/21 11/05/21 07:30 (Plaquenil) cephalexin 500 mg capsule 500 mg PO TID 11/07/21 11/07/21 11/07/21 08:00 Active Medications Generic Name Dose Route Start Last Admin Trade Name Freq PRN Reason Stop Dose Admin Calcitriol 0.5 mcg 11/08/21 09:00 11/08/21 07:56 Calcitriol 0.25 Mcg Capsule PO 12/08/21 08:59 0.5 mcg MoFr ANGELO Administration Gabapentin 300 mg 11/08/21 09:00 11/08/21 07:56 Gabapentin 300 Mg Cap PO 12/08/21 08:59 300 mg TID ANGELO Administration Hydroxychloroquine Sulfate 200 mg 11/08/21 09:00 11/08/21 07:57 Hydroxychloroquine Sulfate 200 Mg Tab PO 12/08/21 08:59 200 mg DAILY ANGELO Administration Heparin Sodium/Dextrose 25,000 units in 500 mls @ 18 mls/hr 11/07/21 21:30 11/08/21 05:50 Heparin Sodium/Dextrose IV 12/07/21 21:29 900 units/hr .Q24H ANGELO 18 mls/hr Titration Protocol 900 UNITS/HR Lactated Ringer's 1,000 mls @ 80 mls/hr 11/08/21 00:30 11/08/21 01:03 Lr IV 11/09/21 01:29 80 mls/hr .[id number] ANGELO Administration Daptomycin 200 mg/ Syringe 4 mls @ 2 mls/min 11/08/21 00:45 11/08/21 01:07 IV 11/15/21 00:44 2 mls/min Q24H ANGELO Administration Protocol Metoprolol Tartrate 50 mg 11/08/21 09:00 11/08/21 07:57 Metoprolol Tartrate 50 Mg Tab PO 12/08/21 08:59 50 mg BID ANGELO Administration Morphine Sulfate 1 mg 11/07/21 23:46 11/08/21 01:04 Morphine Sulfate 2 Mg/Ml Carp IV 11/21/21 23:45 1 mg Q4H PRN Administration Pain Oxybutynin Chloride 5 mg 11/08/21 09:00 11/08/21 07:57 Oxybutynin Chloride 5 Mg Tab PO 12/08/21 08:59 5 mg BID ANGELO Administration Pantoprazole Sodium 40 mg 11/08/21 09:00 11/08/21 07:56 Pantoprazole 40 Mg Tab PO 12/08/21 08:59 40 mg DAILY ANGELO Administration Prednisone 5 mg 11/08/21 09:00 11/08/21 07:56 Prednisone 5 Mg Tab PO 12/08/21 08:59 5 mg QAM ANGELO Administration Past Medical History Medical History Chronic back pain DDD (degenerative disc disease) GERD (gastroesophageal reflux disease) controlled History of COVID-19 hospitalized 07/16/20 [facility]. hypoxia, fever, cough, chills, loss of taste/smell. pt reports taste/smell still not fully back to normal. History of Hodgkin's lymphoma 2003/under surveillance by PCP/Dr. Thibodeaux- S/p chemo in 2003- none since History of oral cancer s/p tongue excision left side (no chemo/no XRT 2013) No issues since Hypertension Ischemic leg pain Overactive bladder PAF (paroxysmal atrial fibrillation) hx - on Eliquis Paroxysmal SVT (supraventricular tachycardia) hx (follows with Dr. Vance) Peripheral arterial disease PONV (postoperative nausea and vomiting) RA (rheumatoid arthritis) on chronic steroid Skin benign neoplasm Vertigo No current issues Past Family History Family History Mother Breast cancer Colorectal cancer Cancer Gastric cancer Aunt Colorectal cancer Other Family history non-contributory Denies family history of Ovarian cancer Prostate cancer Myocardial infarction Past Surgical History Surgical History H/O foot surgery TOES X MULTIPLE H/O parathyroidectomy History of biopsy Of soft tissue of the neck History of breast surgery Puncture aspiration of cyst History of carpal tunnel release RIGHT History of colonoscopy History of colposcopy with cervical biopsy with endocervical curettage History of glossectomy with unilateral radical neck dissection History of hip surgery R/L REVISION Left MAURO revision: 11/09/18: SABx1 at L3-L4 at [facility] History of spinal surgery 10/02/[address] [facility] [address] Sanford History of total hip arthroplasty R/L History of total knee replacement R/L History of tubal ligation Hx of hand surgery RIGHT Hx of knee surgery most recent 02/28/2020 [facility] Right TKA revision, I&D, antibiotic spacer: 12/29/19: SAB + PNB at [facility] S/P revision of total knee 12/29/19 Dr. Ihsan Vela- Right total knee revision, Incision and drainage with antibiotic cement spacer Social History Smoking Status: Never smoker Hx Alcohol Use: No Alcohol type: hard liquor alcohol intake frequency: holidays/special occasions only Hx Substance Use: No substance use type: does not use Physical Exam Vital Signs Last Vital Signs Temp 98.4 F 11/08/21 07:33 Pulse 101 H 11/08/21 07:33 Resp 16 11/08/21 07:33 BP 181/66 H 11/08/21 07:33 Pulse Ox 95 11/08/21 07:33 Testing Laboratory Results 11/08/21 04:27 11/07/21 18:18 PT 11.6 Seconds (9.0-12.0) 11/07/21 18:18 INR 1.1 (0.9-1.1) 11/07/21 18:18 APTT 71.9 Seconds (21.0-31.0) H* 11/08/21 04:27 Electrocardiogram Date: 03/07/21 Poor data quality, interpretation may be adversely affected Sinus tachycardia with Premature atrial complexes, rate 101 bpm Nonspecific T wave abnormality Abnormal ECG When compared with ECG of 06-OCT-2020 18:30, Premature atrial complexes are now Present Confirmed by Yayo Brewer ([id number]) on 03/08/2021 6:13:19 AM Echocardiogram Date: 12/30/19 LV systolic function is normal No regional wall motion abnormalities Mild concentric LVH EF 60-65% Mild TR No valvular vegetation Compared with study dated 06/17/19, no significant change Cervical Spine Date: 09/06/20 IMPRESSION: 1. Mild anterolisthesis of C3 on C4, and C4 on C5. This finding was present on the prior October 2018 study. The C3 on C4 anterolisthesis is currently visualized only in flexion and reduces in extension. The 3 mm of anterolisthesis of C4 on C5 is currently visualized only in extension.
[2021-11-08] MEDS ORDERED: fentaNYL citrate 100 MCG/2 ML VIAL ONE ×4 (10:43→13:10)
[2021-11-08] MEDS ORDERED: LIDOCAINE 2% 2 ML VIAL/AMP(20MG/ML) INFIL ONE (10:43)
[2021-11-08] MEDS ORDERED: PROPOFOL IV EMULSION 10 MG/ML 20 ML VIAL IV ONE (10:43)
[2021-11-08] MEDS ORDERED: ONDANSETRON INJ 2 MG/ML 2 ML VIAL ONE (10:50)
[2021-11-08] MEDS ORDERED: STAT IV Infusion **Titration per Protocol STA (10:52)
[2021-11-08] MEDS ORDERED: dilTIAZem HCl 5 MG/ML 5 ML VIAL IV ONE (11:10)
[2021-11-08] MEDS ORDERED: fentaNYL citrate 100 MCG/2 ML VIAL IV PRN (11:43)
[2021-11-08] MEDS ORDERED: ONDANSETRON INJ 2 MG/ML 2 ML VIAL IV PRN (11:43)
[2021-11-08] MEDS ORDERED: ePHEDrine sulfate 50 MG/ML AMP IV PRN (11:43)
[2021-11-08] MEDS ORDERED: ATROPINE SULFATE 0.1 MG/ML 10ML SYR IV PRN (11:43)
[2021-11-08] MEDS ORDERED: PHENYLEPHRINE HCL 10 MG/ML VIAL ONE (12:09)
[2021-11-08] MEDS ORDERED: VISIPAQUE IV PRN (13:43)
--- NOTE | 2021-11-08 13:59 | Operative Report ---
Post Operative Report Pre & Post Diagnosis Operation Date: 11/08/21 09:40 Pre-Op Diagnosis: Ischemic Right Leg Post-Op Diagnosis: Ischemic Right Leg I identified the patient and participated in the time-out.: Yes Procedure Operation Date: 11/08/21 09:40 Actual Procedures p Right Leg Arteriogram, Attempted Angioplasty, Mechanical Closure Left Femoral Artery(Left) - Jun Kelly MD Surgeon Jun Kelly MD Parking Enforcement Technician [place],PAC Estimated Blood Loss 5 Findings Consistent with Post-Op Diagnosis Specimens none Anesthesia Type General Complications none Disposition Accompanied Patient To Recovery: No Disposition: Recovery Room Indications This is a 71-year-old female who presented with increased pain in her foot. Ultrasound done shows that the stents placed 48 hours prior to admission or occluded. Arteriography and intervention was recommended. I have discussed the risks options and benefits of the procedure with the patient. The patient understands the risks options and benefits and agrees to the procedure. Description of Procedure The patient was taken to the operating room and placed in the supine position. Both groins were then prepped and draped in a sterile manner. Timeout was performed and the patient was identified. A percutaneous puncture was then made of the left common femoral artery and 5 [place] sheath inserted. 035 Glidewire was inserted followed by a rim catheter. The right iliac system was cannulated from the left side. The rim catheter was advanced. Once position of the inguinal ligament right lower extremity arteriogram was performed. This showed the common femoral superficial femoral profundofemoral arteries to be patent. The stent which was placed in the superficial femoral artery was widely patent. Popliteal was also patent down to the tibial peroneal trunk at which point there was a short occlusion at the origin and peroneal. He has different Glidewire was inserted and a 5 [place] sheath was exchanged for a 6 [place] destination. Using an 035 guidewire and a quick cross catheter attempts were made to cross the peroneal lesion. These were unsuccessful. The original arteriogram there was an area of blush coming from the it appeared to be the anterior tibial artery just beyond its origin. Numerous attempts of trying to pass the lesion were unsuccessful. The peroneal artery on x-ray was very calcified. It was calcified its entire length. It appeared to be circumferential on the x-ray. We decided to try to cut down the posterior tibial artery just above where it was occluded at the ankle. The right foot was then prepped and draped. Incision was made over the posterior tibial artery at the end of the Doppler signal. Posterior tibial arteries identified. It was heavily calcified circumferentially and its entire length. I cannot feel any soft spot in the entire artery that was exposed. Using an pedal entrance needle the peroneal artery was punctured. An attempt was made to cannulate the peroneal artery from below. After trying an 014 wire the micropuncture wire cannulation of the peroneal was unsuccessful. The arteries that were exposed are not amenable to bypass. They are extremely calcified. The posterior tibial artery was occluded at the ankle. No dorsalis pedis did reconstituted at the ankle on delayed films with minimal flow. The reconstitution did not appear to be coming from collaterals from the peroneal. That point the attempt was abandoned. The open vessels were ligated with clips and this cutdown closed with jorge. An 035 wire was inserted through the destination sheath. The puncture site was then closed with a Star closure device. Active hemostasis was noted.The patient left the operation room in satisfactory condition and tolerated the procedure well. All needle and sponge counts were correct at the end of the procedure. I attest to the content of the Intraoperative Record and any orders documented therein. Any exceptions are noted below.
[2021-11-08] MEDS: HYDROmorphone INJ 2 MG/ML SYR/VIAL IV PRN ×4 (14:01→14:16)
--- NOTE | 2021-11-08 14:22 | Anesthesiology Progress Note ---
Date of Service November 08, 2021 Anesthesia Post Procedure Vital Signs Vital Signs: Temp Pulse Pulse Pulse Resp BP BP 11/08/21 13:52 98.8 F 159 H 22 107/75 11/08/21 10:33 99.3 F 167 H 122/93 11/08/21 07:33 98.4 F 101 H 16 181/66 H 11/08/21 00:17 100.2 F H 119 H 16 166/65 H 11/07/21 17:42 99.9 F H 116 H 16 178/75 H Pulse Ox 11/08/21 13:52 97 11/08/21 10:33 93 11/08/21 07:33 95 11/08/21 00:17 94 11/07/21 17:42 96 Pain Intensity Right Foot: Pain Intensity: 5 Right Posterior Calf: Pain Intensity: 6 Transfer of Care Handoff Completed per policy Notes Mental Status: alert / awake / arousable and participated in evaluation Patient Amnestic to Procedure: Yes Nausea / Vomiting: adequately controlled Pain: adequately controlled Airway Patency, RR, SpO2: stable & adequate BP & HR: stable & adequate and see Notes below Hydration State: stable & adequate Anesthetic Complications: no major complications apparent and Pt Satisfied with anesthetic care Notes: Dr. Mancini gave report to boat washer, Dr. Constantino. The patient was in rapid afib pre-operatively and remains in rapid afib postoperatively. The patient is otherwise stable to be discharged to the ICU for further care.
--- NOTE | 2021-11-08 14:51 | Critical Care Consultation ---
Date of Consultation November 08, 2021 Assessment & Plan (1) Ischemic leg pain: ICU Assessment and Plans Reason Critically Ill: 71 yo F with PAD admitted to ICU for AF w/ RVR during failed RLE angiography/angioplasty and now pending orthopedic evaluation NEURO - CAM ICU: NEGATIVE Sedation: None Analgesia: Morphine PRN, [place] PRN -Single dose 0.5 mg Dilaudid given on admission to ICU Fully alert and oriented CARDIAC/VASCULAR Atrial fibrillation with RVR - Suspect secondary to physiologic stress from acute vascular illness in setting of known paroxysmal atrial fibrillation - Currently not rate controlled- HRs 130s+ - Continue diltiazem drip- currently at 15 mg/hr. Continue Lopressor 50 mg BID - Telemetry monitoring - Holding home Eliquis for anticoagulation pending potential OR procedure with orthopedics Hypertension - Continue Lopressor 50 mg BID - BP stable Peripheral artery disease - RLE US- occluded superficial femoral + posterior tibial artery - Not on any antiplatelet therapy or statin - Angiogram/angioplasty failed 11/08, orthopedics consulted and evaluation pending o May require amputation - Pain control as above RESPIRATORY - No known active respiratory disease. Saturating well on RA GI Heart healthy diet Possibly NPO midnight for OR procedure with orthopedics pending evaluation GERD - Continue pantoprazole daily FLUIDS/RENAL/ELECTROLYTES - No significant electrolyte derangement per BMP 11/07 Replace electrolytes as needed NSS at 100 cc/hr - No concerns at this time ENDO - No known history of diabetes Vitamin D deficiency - Continue calcitriol HEME - Hgb 11.0, stable Discontinued heparin drip and holding home Eliquis ID - Leukocytosis - WBC 14.4 to 12.2 today - Lower suspicion for acute infection but will continue ceftriaxone/daptomycin at this time for possible infection IMMUNE Rheumatoid arthritis - Continue prednisone 5 mg qAM, 1 mg qPM - Continue Plaquenil LINES/IV ACCESS - PIVs DVT PROPHYLAXIS - Holding home Eliquis, discontinued heparinAvoiding SCDs in active PAD (2) Superficial occlusion of femoral artery: (3) Occlusion of stent of peripheral artery: (4) Peripheral arterial disease: Supervising Physician Co-Signing Physician Notes Dr. Yun was resident physician during care of patient. I separately evaluated patient for chapman portions of the history and the exam. I was present during the critical portion of medical decision making, and I discussed the case with the resident. I generally agree with the findings and plan. Discussed with orthopedic surgery. Prior orthopedic procedures create situation of difficult amputation possibly necessitating disarticulation at the hip. We will closely monitor her electrolytes and CPK. She has A. fib with rapid ventricular response which is requiring vasoactive medication administration. Patient remains critically ill. I have personally spent 70 minutes of critical care time in the direct management of this patient. This is a life/limb threatening event. This includes time spent evaluating patient, direct bedside care, chart review, placing orders, interpretation of diagnostic studies, discussion with consul tants, patient, and/or family members regarding treatment decisions, as well as other required patient management activities. This time is exclusive of all separately billable procedures, and teaching time and separate from and in addition to any other critical care service time. History of Present Illness Reason for Consultation: Atrial fibrillation with RVR pre/postoperatively from unsuccessful vascular surgery Requesting Physician: Jun Kelly MD Attending Physician: Earline Carbajal MD History of Present Illness History obtained from both patient and chart review. 71 yo F with PMH HTN, paroxysmal AF on Eliquis, RA, PAD admitted to ICU due to atrial fibrillation with RVR prior to and following unsuccessful RLE arteriogram on 11/08. Pt initially seen at [facility] on 11/06 due to R foot pain x1 month and worsening dark discoloration x2 weeks. Pain increased in severity and interfered with sleep, no palliation and associated with tingling and feeling cold. Arterial Doppler of RLE demonstrated significant stenoses which limited ankle-brachial index measurement. Subsequent arteriogram with angioplasty and stenting of the right superficial femoral artery with mechanical closure was performed on 11/06 without complication- pt discharged home with improvement in pain. Today she developed similar pain in her posterior right thigh + right calf along with dark disc oloration of the right foot with pale toes and coldness as well. Pain was of great severity and limited ambulation. She promptly went to ER where vascular ultrasound revealed occlusion of superficial femoral artery stent- started on heparin and treated with ceftriaxone/daptomycin for concern of infection. Vascular surgery consulted and took pt to OR for RLE arteriogram/angioplasty. Heavy calcification and occlusion of R peroneal + posterior tibial artery prevented revascularization attempt. Pt was in atrial fibrillation with RVR prior to and after the procedure, subsequently transferred to ICU and awaiting orthopedic evaluation for potential amputation. On evaluation, pt complains of severe R leg and foot pain. Reports coldness of her foot and tingling associated with the pain. Denies any chest pain, lightheadedness, headache, dyspnea. Allergies Allergy/AdvReac Type Severity Reaction Status Date / Time jose evancin Allergy Severe hypotension, Verified 11/07/21 20:59 flushing, tachypnea Home Medications Medication Instructions Recorded Confirmed Type lactobacillus combination no.4 3 3,000 mmu cells PO QAM 03/30/18 11/07/21 History billion cell capsule (Probiotic) prednisone 1 mg tablet 1 mg PO QPM 03/30/18 11/07/21 History prednisone 5 mg tablet 5 mg PO QAM 03/30/18 11/07/21 History cranberry 500 mg capsule 500 mg PO QPM 09/29/18 11/07/21 History omeprazole 20 mg capsule,delayed 20 mg PO BID 09/29/18 11/07/21 History release vit A 7,160 unit-vit C 113 mg-vit 1 tab PO QAM 10/08/18 11/07/21 History E-zinc [id number] 1 mg tablet ([employer]) leg brace (Knee Stabilizer) #1 ea 02/10/19 10/02/21 Rx calcitriol 0.5 mcg capsule 0.5 mcg PO 2XWK 02/21/20 11/07/21 History (Rocaltrol) leflunomide 20 mg tablet (Arava) 20 mg PO QAM 03/27/20 11/07/21 History calcium carbonate 600 mg-vitamin 1 cap PO BID 07/16/20 11/07/21 History D3 5 mcg (200 unit) capsule (Calcium 600 + D(3)) gabapentin 300 mg capsule 300 mg PO TID 07/16/20 11/07/21 History metoprolol tartrate 50 mg tablet 50 mg PO BID #180 tab 12/27/20 11/07/21 Rx sennosides 8.6 mg tablet (senna) 8.6 mg PO DAILY PRN 02/28/21 11/07/21 History hydrocodone 10 mg-acetaminophen 1 tab PO Q4 PRN 03/07/21 11/07/21 History 325 mg tablet meclizine 25 mg tablet 25 mg PO BID PRN #20 tab 07/26/21 11/07/21 Rx apixaban 5 mg tablet (Eliquis) 5 mg PO BID #180 tab 08/28/21 11/07/21 Rx oxybutynin chloride 5 mg tablet 5 mg PO BID #180 tab 08/28/21 11/07/21 Rx ferrous sulfate 325 mg (65 mg 325 mg PO QAM 09/26/21 11/07/21 History iron) tablet hydroxychloroquine 200 mg tablet 200 mg PO DAILY tab 10/02/21 11/07/21 History (Plaquenil) cephalexin 500 mg capsule 500 mg PO TID 11/07/21 11/07/21 History Patient History Medical History Chronic back pain DDD (degenerative disc disease) GERD (gastroesophageal reflux disease) controlled History of COVID-19 hospitalized 07/16/20 [facility]. hypoxia, fever, cough, chills, loss of taste/smell. pt reports taste/smell still not fully back to normal. History of Hodgkin's lymphoma 2003/under surveillance by PCP/Dr. Thibodeaux- S/p chemo in 2003- none since History of oral cancer s/p tongue excision left side (no chemo/no XRT 2013) No issues since Hypertension Ischemic leg pain Overactive bladder PAF (paroxysmal atrial fibrillation) hx - on Eliquis Paroxysmal SVT (supraventricular tachycardia) hx (follows with Dr. Vance) Peripheral arterial disease PONV (postoperative nausea and vomiting) RA (rheumatoid arthritis) on chronic steroid Skin benign neoplasm Vertigo No current issues Surgical History H/O foot surgery TOES X MULTIPLE H/O parathyroidectomy History of biopsy Of soft tissue of the neck History of breast surgery Puncture aspiration of cyst History of carpal tunnel release RIGHT History of colonoscopy History of colposcopy with cervical biopsy with endocervical curettage History of glossectomy with unilateral radical neck dissection History of hip surgery R/L REVISION Left MAURO revision: 11/09/18: SABx1 at L3-L4 at [facility] History of spinal surgery 10/02/[address] [facility] [address] Sanford History of total hip arthroplasty R/L History of total knee replacement R/L History of tubal ligation Hx of hand surgery RIGHT Hx of knee surgery most recent 02/28/2020 [facility] Right TKA revision, I&D, antibiotic spacer: 12/29/19: SAB + PNB at [facility] S/P revision of total knee 12/29/19 Dr. Ihsan Vela- Right total knee revision, Incision and drainage with antibiotic cement spacer Family History Mother Breast cancer Colorectal cancer Cancer Gastric cancer Aunt Colorectal cancer Other Family history non-contributory Denies family history of Ovarian cancer Prostate cancer Myocardial infarction Social History Smoking Status: Never smoker Second Hand Exposure: No; Hx Alcohol Use: No Hx Substance Use: No Preferred Language: Jordanian Communication Ability: Effective Visual Impairment: Limited 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: Normal Gis Application Developer Required: No Beliefs That Will Affect Care: None marital status: Current Living Situation: Spouse current occupational status: retired Feels Safe at Home: Yes Childhood Exposure to Second-Hand Smoke: Yes caffeine: Yes Dental Care, Regularly: Yes Physical Activity Frequency: Other Physical Activity Frequency Comment: Limited by a physical condition Seatbelt Use: always Sunscreen Use: Yes Assistive Devices: Walker Review of Systems Review of Systems: Per HPI Physical Exam Constitutional: WD/WN, vitals as above cooperative and + in distress (tearful) ENMT: Ears: no hearing impairment Neck: trachea midline Respiratory: normal respiratory effort, lungs clear to auscultation Cardiovascular: Rate/Rhythm: + irregularly irregular Vessels: posterior tibial pulses present (Very faint on RLE); + abnormal peripheral pulses and + dorsalis pedis pulses abnormal (Unable to appreciate on RLE) Extremities: + abnormal capillary refill (RLE no cap refill to toes, LLE normal) Gastrointestinal (Abdomen): Inspection/Auscultation: abdomen normal to inspection and normal bowel sounds Percussion/Palpation: abdomen soft; abdomen nontender Musculoskeletal: Extremities: + cyanosis (R toes with pallor/bluish discoloration greatest on 2nd toe) Neurologic: moves all extremities and awake; no focal motor deficits Reduced sensation to light touch on distal RLE Psychiatric: Orientation: alert and oriented x 3 Affect: + depressed affect, + anxious affect and + tearful affect Results & Data Results & [facility] ([facility]) Vital Signs (Past 12 Hours) Vital Signs Temp Pulse Pulse Resp BP Pulse Ox 11/08/21 14:20 159 H 17 109/69 95 11/08/21 14:10 124 H 19 114/73 97 11/08/21 14:00 143 H 14 114/77 96 11/08/21 13:52 37.1 C 159 H 22 107/75 97 11/08/21 10:33 37.4 C 167 H 122/93 93 11/08/21 07:33 36.9 C 101 H 16 181/66 H 95 Resident Activity Tracking Resident Involvement: Resident Care Provided Care Provided: Adult Hospital Medicine
[2021-11-08] MEDS ORDERED: SODIUM CHLORIDE 0.9% 1000ML 1,000 ML IV SCH (14:53)
[2021-11-08] MEDS: dilTIAZem HCL 125 MG in DEXTROSE 5% 100 ML IV SCH ×2 (14:59→17:57)
[2021-11-08] MEDS ORDERED: HYDROmorphone INJ 0.5 MG/0.5 ML SYR IV STA (15:19)
[2021-11-08 16:27] LABS: Partial Thromboplastin Ratio 1.2; Partial Thromboplastin Time 34.1 Seconds (21.0-31.0)
--- NOTE | 2021-11-08 17:35 | Hospitalist Progress Note ---
Date of Service November 08, 2021 Assessment & Plan (1) Ischemic leg pain: (2) Cellulitis: Plan: Right foot ulceration with cellulitis (3) Occlusion of stent of peripheral artery: Plan: 71yo female with history of peripheral arterial disease s/p RLE arteriogram with stenting of right SFA performed 11/06/21 returning with RLE thigh and calf pain, pain in the foot with discoloration and pallor. Found to have occluded superficial femoral arterial stent on Doppler as well as posterior tibial arterial occlusion. Admitted on heparin gtt and then taken to OR with Vascular on 11/08--> no occlusion of SFA stent but had multiple attempts by Vascular intraoperatively to bypass the tibial artery but was not possible due to calcified arteries. With low grade fever, leukocytosis, cellulitis and wounds of foot, ischemic toes/foot -restart heparin gtt -consult Ortho to see about possible amputation -pain control with Hydrocodone/Acetaminophen 10/325mg q 4 hours PRN and IV dilaudid -Zofran PRN nausea -Colace, Senokot, Miralax as needed for constipation -Antibiotic coverage with Ceftriaxone and Daptomycin -Vascular surgery consultation appreciated (4) PAF (paroxysmal atrial fibrillation): Plan: Rapid atrial fibrillation that came on intraoperatively, rates as high as 160s now on dilt gtt and transferred to ICU, rates improved to 120s by evening -continue home Metoprolol tartrate 50mg po bid -hold home Eliquis and on heparin gtt -continue tele (5) Peripheral arterial disease: Plan: With arterial occlusion s/p stenting -Heparin gtt -?Statin use on discharge (6) Rheumatoid arthritis: Plan: Chronic. Stable -Continue Plaquenil -Continue Prednisone 5mg po qAM, 1mg po qPM. Low threshold for stress dosed steroids if patient becomes hypotensive (7) Hypertension: Plan: Blood pressure stable -Pain control -Continue Metoprolol -Continue to monitor (8) GERD (gastroesophageal reflux disease): Plan: Chronic. On Omeprazole BID at home -Protonix 40mg po daily (9) Overactive bladder: Plan: Chronic. Controlled on medication -Continue Oxybutynin -PureWick catheter ordered (10) Steroid dependence: Plan: continue prednisone watch for need for stress dose steroids Plan: Ppx - Heparin gtt Code - Full Dispo - transferred to ICU Admission and Anticipated Discharge Date Admission Date: November 07, 2021 Subjective Pt had rapid afib in OR and was placed on dilt gtt. Had a lot of pain in right leg/foot which is now improved. No CP or SOB. SHe understands she may end up needing an amputation. Review of Systems Review of Systems: All systems reviewed & are unremarkable except as noted in HPI & below Physical Exam Constitutional: WD/WN, vitals as above Eyes: + anicteric sclerae Neck: trachea midline, no thyromegaly Respiratory: normal respiratory effort, lungs clear to auscultation Cardiovascular: Rate/Rhythm: + tachycardic and + irregularly irregular Heart Sounds: no murmur Vessels: + dorsalis pedis pulses abnormal Extremities: no edema Chest (Breasts): Chest: normal inspection of chest Gastrointestinal (Abdomen): normal bowel sounds, soft, nontender, no hepatosplenomegaly Musculoskeletal: Extremities: no cyanosis and no clubbing Skin: + lesion (blister open wounds on 3rd-4th toes) and + ulcer (pallor of toes,purplish discolorationof foot) Neurologic: moves all extremities and awake; no focal motor deficits Psychiatric: A+Ox3, euthymic affect Lymphatic: no lymphedema Results & Data Results & Data ([facility]) Vital Signs (Past 12 Hours) Vital Signs Temp Pulse Pulse Pulse Resp BP BP 11/08/21 17:02 134 H 16 99/72 L 11/08/21 17:00 133 H 21 11/08/21 16:46 133 H 26 H 104/77 11/08/21 16:40 153 H 23 97/55 L 11/08/21 16:31 150 H 26 H 72/51 L 11/08/21 16:15 113 H 20 98/63 L 11/08/21 16:09 130 H 23 124/58 L 11/08/21 16:01 122 H 14 131/101 H 11/08/21 16:00 124 H 27 H 11/08/21 15:45 135 H 18 131/57 L 11/08/21 15:30 157 H 17 83/70 L 11/08/21 15:15 147 H 18 113/73 11/08/21 15:08 154 H 19 91/64 L 11/08/21 15:03 134 H 19 122/65 11/08/21 15:00 138 H 16 94/69 L 11/08/21 14:44 11/08/21 14:43 110/89 11/08/21 14:30 37.0 C 146 H 17 109/68 11/08/21 14:20 159 H 17 109/69 11/08/21 14:10 124 H 19 114/73 11/08/21 14:00 143 H 14 114/77 11/08/21 13:52 37.1 C 159 H 22 107/75 11/08/21 10:33 37.4 C 167 H 122/93 11/08/21 07:33 36.9 C 101 H 16 181/66 H Pulse Ox 11/08/21 17:02 97 11/08/21 17:00 96 11/08/21 16:46 96 11/08/21 16:40 96 11/08/21 16:31 96 11/08/21 16:15 95 11/08/21 16:09 94 11/08/21 16:01 88 L 11/08/21 16:00 91 11/08/21 15:45 86 L 11/08/21 15:30 84 L 11/08/21 15:15 89 L 11/08/21 15:08 91 11/08/21 15:03 88 L 11/08/21 15:00 90 11/08/21 14:44 94 11/08/21 14:43 11/08/21 14:30 96 11/08/21 14:20 95 11/08/21 14:10 97 11/08/21 14:00 96 11/08/21 13:52 97 11/08/21 10:33 93 11/08/21 07:33 95 Laboratory Results 11/08/21 11/08/21 11/08/21 Range/Units 15:47 04:27 04:27 WBC 12.21 H (4.8-10.8) K/uL RBC 3.81 L (4.2-5.4) M/uL Hgb 11.0 L (12.0-16.0) g/dL Hct 34.5 L (37-47) % MCV 90.6 (80-100) fL MCH 28.9 (25-34) pg MCHC 31.9 L (32-36) g/dL RDW Std Deviation 50.2 H (36.4-46.3) fL RDW Coeff of Jarvis 15.2 H (11.5-14.5) % Plt Count 195 (130-400) K/uL MPV 9.4 (7.4-10.4) fL Immature Gran % (Auto) 0.4 % Neut % (Auto) 60.5 % Lymph % (Auto) 23.3 % [place] % (Auto) 14.9 % Eos % (Auto) 0.7 % Baso % (Auto) 0.2 % Neut # (Auto) 7.40 H (1.4-6.5) K/uL Lymph # (Auto) 2.84 (1.2-3.4) K/uL [place] # (Auto) 1.82 H (0.11-0.59) K/uL Eos # (Auto) 0.08 (0-0.5) K/uL Baso # (Auto) 0.02 (0-0.2) K/uL Immature Gran # (Auto) 0.05 H (0.00-0.02) K/uL PT (9.0-12.0) Seconds INR (0.9-1.1) APTT 34.1 H 71.9 H* (21.0-31.0) Seconds PTT Ratio 1.2 2.6 Sodium (136-145) mmol/L Potassium (3.5-5.1) mmol/L Chloride (98-107) mmol/L Carbon Dioxide (21-32) mmol/L Anion Gap (3-11) BUN (6-23) mg/dl Creatinine (0.6-1.2) mg/dl Est Cr Clr Drug Dosing Est GFR ( Amer) ml/min Est GFR (Non-Af Amer) ml/min BUN/Creatinine Ratio (10-20) Glucose (70-99(Fasting)) mg/dl Calcium (8.5-10.1) mg/dl Magnesium (1.7-2.4) mg/dl Total Bilirubin (0.2-1.0) mg/dl AST (13-39) U/L ALT (7-52) U/L Alkaline Phosphatase (34-104) U/L Total Protein (6.0-8.3) gm/dl Albumin (3.4-5.0) gm/dl Globulin (2.5-4.0) gm/dl Albumin/Globulin Ratio (0.9-2) Procalcitonin (0-0.5) ng/ml SARS-CoV-2, RNA, NAAT (NEGATIVE) 11/07/21 11/07/21 11/07/21 Range/Units 22:02 20:18 18:18 WBC 14.39 H (4.8-10.8) K/uL RBC 3.95 L (4.2-5.4) M/uL Hgb 11.3 L (12.0-16.0) g/dL Hct 36.0 L (37-47) % MCV 91.1 (80-100) fL MCH 28.6 (25-34) pg MCHC 31.4 L (32-36) g/dL RDW Std Deviation 51.4 H (36.4-46.3) fL RDW Coeff of Jarvis 15.3 H (11.5-14.5) % Plt Count 219 (130-400) K/uL MPV 10.0 (7.4-10.4) fL Immature Gran % (Auto) 0.3 % Neut % (Auto) 68.5 % Lymph % (Auto) 16.2 % [place] % (Auto) 14.4 % Eos % (Auto) 0.4 % Baso % (Auto) 0.2 % Neut # (Auto) 9.85 H (1.4-6.5) K/uL Lymph # (Auto) 2.33 (1.2-3.4) K/uL [place] # (Auto) 2.07 H (0.11-0.59) K/uL Eos # (Auto) 0.06 (0-0.5) K/uL Baso # (Auto) 0.03 (0-0.2) K/uL Immature Gran # (Auto) 0.05 H (0.00-0.02) K/uL PT (9.0-12.0) Seconds INR (0.9-1.1) APTT (21.0-31.0) Seconds PTT Ratio Sodium (136-145) mmol/L Potassium (3.5-5.1) mmol/L Chloride (98-107) mmol/L Carbon Dioxide (21-32) mmol/L Anion Gap (3-11) BUN (6-23) mg/dl Creatinine (0.6-1.2) mg/dl Est Cr Clr Drug Dosing Est GFR ( Amer) ml/min Est GFR (Non-Af Amer) ml/min BUN/Creatinine Ratio (10-20) Glucose (70-99(Fasting)) mg/dl Calcium (8.5-10.1) mg/dl Magnesium (1.7-2.4) mg/dl Total Bilirubin (0.2-1.0) mg/dl AST (13-39) U/L ALT (7-52) U/L Alkaline Phosphatase (34-104) U/L Total Protein (6.0-8.3) gm/dl Albumin (3.4-5.0) gm/dl Globulin (2.5-4.0) gm/dl Albumin/Globulin Ratio (0.9-2) Procalcitonin 0.06 (0-0.5) ng/ml SARS-CoV-2, RNA, NAAT NEGATIVE (NEGATIVE) 11/07/21 11/07/21 Range/Units 18:18 18:18 WBC (4.8-10.8) K/uL RBC (4.2-5.4) M/uL Hgb (12.0-16.0) g/dL Hct (37-47) % MCV (80-100) fL MCH (25-34) pg MCHC (32-36) g/dL RDW Std Deviation (36.4-46.3) fL RDW Coeff of Jarvis (11.5-14.5) % Plt Count (130-400) K/uL MPV (7.4-10.4) fL Immature Gran % (Auto) % Neut % (Auto) % Lymph % (Auto) % [place] % (Auto) % Eos % (Auto) % Baso % (Auto) % Neut # (Auto) (1.4-6.5) K/uL Lymph # (Auto) (1.2-3.4) K/uL [place] # (Auto) (0.11-0.59) K/uL Eos # (Auto) (0-0.5) K/uL Baso # (Auto) (0-0.2) K/uL Immature Gran # (Auto) (0.00-0.02) K/uL PT 11.6 (9.0-12.0) Seconds INR 1.1 (0.9-1.1) APTT 29.5 (21.0-31.0) Seconds PTT Ratio 1.1 Sodium 140 (136-145) mmol/L Potassium 4.5 (3.5-5.1) mmol/L Chloride 105 (98-107) mmol/L Carbon Dioxide 28 (21-32) mmol/L Anion Gap 7 (3-11) BUN 13 (6-23) mg/dl Creatinine 0.60 (0.6-1.2) mg/dl Est Cr Clr Drug Dosing Not Reportable Est GFR ( Amer) 104.8 ml/min Est GFR (Non-Af Amer) 90.4 ml/min BUN/Creatinine Ratio 21.7 H (10-20) Glucose 96 (70-99(Fasting)) mg/dl Calcium 8.8 (8.5-10.1) mg/dl Magnesium 1.7 (1.7-2.4) mg/dl Total Bilirubin 0.6 (0.2-1.0) mg/dl AST 11 L (13-39) U/L ALT 8 (7-52) U/L Alkaline Phosphatase 68 (34-104) U/L Total Protein 6.0 (6.0-8.3) gm/dl Albumin 3.5 (3.4-5.0) gm/dl Globulin 2.5 (2.5-4.0) gm/dl Albumin/Globulin Ratio 1.4 (0.9-2) Procalcitonin (0-0.5) ng/ml SARS-CoV-2, RNA, NAAT (NEGATIVE) PG Care Time/CCT Total # of Minutes Spent Total Time Spent with Patient: Total time spent is greater than 50% in coordination of care (as documented) at patient's floor/unit and/or counseling patient: Coding Level of Care Code 86919 Subseq Hosp Care Lvl 3 Diagnoses Occlusion of stent of peripheral artery T82.599A Peripheral arterial disease I73.9 Rheumatoid arthritis M06.9 PAF (paroxysmal atrial fibrillation) I48.0 Hypertension I10 GERD (gastroesophageal reflux disease) K21.9 Overactive bladder N32.81 Ischemic leg pain M79.606; I99.8 Steroid dependence F19.20 Cellulitis L03.90
[2021-11-08] MEDS ORDERED: Heparin IV Adult Wt-Based Standard *NO* Bolus Protocol IV SCH (18:53)
[2021-11-08] MEDS ORDERED: NALOXONE HCL 0.4 MG/1 ML VIAL/CARP IV PRN (18:54)
--- NOTE | 2021-11-08 19:07 | Billing Data ---
Date of Service November 08, 2021 Coding Level of Care Code Critical Care 1st - mins
[2021-11-08] MEDS: HYDROmorphone PCA 30 MG/30 ML IV PRN ×2 (20:00→23:49)
[2021-11-08 20:08] LABS: BUN Creatinine Ratio 13.5 (10-20); Calcium 7.9 mg/dl (8.5-10.1); Creatinine Clr Calc Pharmacy 44.5 ml/min; Est GFR (African American) 74.5 ml/min; Est GFR (Non-African American) 64.3 ml/min; Potassium 4.2 mmol/L (3.5-5.1)
[2021-11-08] MEDS: SODIUM CHLORIDE 0.9% 1000ML 1,000 ML IV SCH (20:09)
[2021-11-08] MEDS: HEPARIN SODIUM/DEXTROSE 25,000 UNITS/500 ML BAG IV SCH (20:15)
[2021-11-08] MEDS ORDERED: cefTRIAXone SODIUM 1,000 MG in DEXTROSE 5% 50 ML IV SCH (21:00)
[2021-11-08] MEDS ORDERED: APIXABAN 5 MG TABLET PO SCH (21:00)
[2021-11-08] MEDS: predniSONE 1 MG TAB PO SCH (21:49)
[2021-11-09] MEDS: dilTIAZem HCL 125 MG in DEXTROSE 5% 100 ML IV SCH ×4 (02:02→21:34)
[2021-11-09 02:53] LABS: Basophils # (auto) 0.03 K/uL (0-0.2); Basophils % (auto) 0.3 %; Eosinophils # (auto) 0.08 K/uL (0-0.5); Eosinophils % (auto) 0.7 %; Hematocrit (blood only) 30.7 % (37-47); Hemoglobin 9.7 g/dL (12.0-16.0); Immature Granulocytes # (auto) 0.06 K/uL (0.00-0.02); Immature Granulocytes % (auto) 0.5 %; Lymphocytes % (auto) 12.8 %; Mean Corpuscular Hemoglobin 29.5 pg (25-34); Mean Corpuscular Hgb Conc 31.6 g/dL (32-36); Mean Corpuscular Volume 93.3 fL (80-100); Mean Platelet Volume 9.8 fL (7.4-10.4); Monocytes # (auto) 1.28 K/uL (0.11-0.59); Monocytes % (auto) 10.9 %; Neutrophils # (auto) 8.78 K/uL (1.4-6.5); Neutrophils % (auto) 74.8 %; Platelet Count 165 K/uL (130-400); RDW Coefficient of Variation 15.3 % (11.5-14.5); RDW Standard Deviation 52.1 fL (36.4-46.3); Red Blood Count 3.29 M/uL (4.2-5.4); White Blood Count 11.73 K/uL (4.8-10.8)
[2021-11-09 03:12] LABS: BUN Creatinine Ratio 17.1 (10-20); Calcium 7.5 mg/dl (8.5-10.1); Creatinine Clr Calc Pharmacy 48.3 ml/min; Est GFR (African American) 82.3 ml/min; Magnesium 1.3 mg/dl (1.7-2.4); Phosphorus 3.9 mg/dl (2.5-4.9); Potassium 4.1 mmol/L (3.5-5.1)
[2021-11-09 03:15] LABS: Partial Thromboplastin Ratio 2.1
[2021-11-09 03:22] LABS: Partial Thromboplastin Time 58.4 Seconds (21.0-31.0)
--- NOTE | 2021-11-09 06:52 | Critical Care Progress Note ---
Date of Service November 09, 2021 Assessment & Plan (1) Ischemic leg pain: Plan: ICU Assessment and Plans Reason Critically Ill: 71 yo F with PAD admitted to ICU for AF w/ RVR during failed RLE angiography/angioplasty and now pending orthopedic evaluation NEURO - CAM ICU: NEGATIVE Sedation: None Analgesia: Morphine PRN, [place] PRN, Dilaudid PRN -Dilaudid continuously overnight Fully alert and oriented CARDIAC/VASCULAR Atrial fibrillation with RVR - Suspect secondary to physiologic stress from acute vascular illness in setting of known paroxysmal atrial fibrillation - Rate control improved- 90s-100s HR. Decreasing diltiazem drip with attempt to wean off- currently at 10 mg/hr. Continue Lopressor 50 mg BID - Telemetry monitoring - Holding home Eliquis for anticoagulation - Continue heparin drip for AC Hypertension - Continue Lopressor 50 mg BID - BP stable Peripheral artery disease - RLE US- occluded superficial femoral + posterior tibial artery - Not on any antiplatelet therapy or statin - Angiogram/angioplasty failed 11/08, orthopedics consulted and recommending amputation- OR likely on 11/11 RESPIRATORY - No known active respiratory disease. Saturating well on RA GI Heart healthy diet GERD - Continue pantoprazole daily FLUIDS/RENAL/ELECTROLYTES - Hypomagnesemia -Mg 1.3, replete for Mg > 2.2 in patient with arrhythmia Hypokalemia -K 4.1, replete for K > 4.5 in patient with arrhythmias Elevated CPK -Continue trending, 625 on admission -No longer on IV fluids - No concerns at this time ENDO - No known history of diabetes Vitamin D deficiency - Continue calcitriol HEME - Hgb 11.0 to 9.7, low suspicion for acute blood loss - CBC in AM Holding home Eliquis, continue heparin drip ID - Leukocytosis - WBC further downtrending to 11.7 today - Lower suspicion for acute infection - Discontinued ceftriaxone/daptomycin IMMUNE Rheumatoid arthritis - Continue prednisone 5 mg qAM, 1 mg qPM - Continue Plaquenil LINES/IV ACCESS - PIVs DVT PROPHYLAXIS - Heparin drip (2) Superficial occlusion of femoral artery: (3) Occlusion of stent of peripheral artery: (4) Peripheral arterial disease: Admission and Anticipated Discharge Date Admission Date: November 07, 2021 Supervising Physician Co-Signing Physician Notes Dr. Yun was resident physician during care of patient. I separately evaluated patient for chapman portions of the history and the exam. I was present during the critical portion of medical decision making, and I discussed the case with the resident. I generally agree with the findings and plan. Overnight patient required increasing Dilaudid to 0.3 mg/h continuous, does have additional bolus dosing current pain control appears to be adequate only 1 demand dose not given. No nausea, hemodynamics improved decreasing diltiazem at this time hopefully we can just wean that off. I suspect she was in a hyperadrenergic state secondary to significant pain. Continue with BMP and CPK evaluations plan for operative intervention on Thursday. Subjective Overnight pt required continuous Dilaudid for pain control. On evaluation she r eports minimal pain and feels better overall, denies any chest pain, dyspnea or lightheadedness. No longer on continuous Dilaudid. Was tearful when told orthopedics would like to proceed with amputation but stated she knows it's important for her health. Review of Systems Review of Systems: Per HPI Physical Exam Constitutional: WD/WN, vitals as above cooperative and + in distress (tearful) ENMT: Ears: no hearing impairment Neck: trachea midline Respiratory: normal respiratory effort, lungs clear to auscultation Cardiovascular: Rate/Rhythm: + irregularly irregular Vessels: posterior tibial pulses present (Very faint on RLE); + abnormal peripheral pulses and + dorsalis pedis pulses abnormal (Unable to appreciate on RLE) Extremities: + abnormal capillary refill (RLE no cap refill to toes, LLE normal) Gastrointestinal (Abdomen): Inspection/Auscultation: abdomen normal to inspection and normal bowel sounds Percussion/Palpation: abdomen soft; abdomen nontender Musculoskeletal: Extremities: + cyanosis (R toes with pallor/bluish discoloration greatest on 2nd toe) Neurologic: moves all extremities and awake; no focal motor deficits Psychiatric: Orientation: alert and oriented x 3 Affect: + depressed affect, + anxious affect and + tearful affect Results & Data Results & Data ([facility]) Vital Signs (Past 12 Hours) Vital Signs Temp Pulse Resp BP Pulse Ox 11/09/21 06:00 107 H 28 H 128/59 L 93 11/09/21 05:00 71 19 123/59 L 92 11/09/21 04:00 89 22 90 11/09/21 03:59 37.1 C 85 22 111/65 91 11/09/21 03:00 85 25 H 122/61 92 11/09/21 02:00 85 21 121/60 94 11/09/21 01:00 85 22 118/63 90 11/09/21 00:30 83 24 114/61 92 11/09/21 00:00 36.8 C 86 28 H 102/88 93 11/08/21 23:30 86 23 125/49 L 96 11/08/21 23:00 87 26 H 94 11/08/21 22:30 86 14 138/58 L 94 11/08/21 22:00 89 18 130/63 94 11/08/21 21:30 89 17 112/59 L 95 11/08/21 21:00 87 1 L 116/62 94 11/08/21 20:30 99 H 33 H 102/54 L 96 11/08/21 20:00 37.6 C H 98 H 29 H 104/63 91 11/08/21 19:00 94 H 18 94/46 L 95 Critical Care Time I have personally spent 40 minutes of critical care time in the direct management of this patient. This is a life/limb threatening event. This includes time spent evaluating patient, direct bedside care, chart review, placing orders, interpretation of diagnostic studies, discussion with consultants, patient, and/or family members regarding treatment decisions, as well as other required patient management activities. This time is exclusive of all separately billable procedures, and teaching time and separate from and in addition to any other critical care service time. Resident Activity Tracking Resident Involvement: Resident Care Provided Care Provided: [facility]
[2021-11-09] MEDS: MAGNESIUM SULFATE / D5W 1 GM/100 ML BAG IV SCH ×6 (07:24→17:22)
--- NOTE | 2021-11-09 07:50 | Electrocardiogram Report ---
Test Reason : Blood Pressure : / mmHG Vent. Rate : 163 BPM Atrial Rate : 025 BPM P-R Int : 000 ms QRS Dur : 102 ms QT Int : 296 ms P-R-T Axes : 000 069 046 degrees QTc Int : 487 ms Atrial fibrillation with rapid ventricular response with premature ventricular or aberrantly conducte d complexes Abnormal ECG When compared with ECG of 07-MAR-2021 08:25, Atrial fibrillation has replaced Sinus rhythm Vent. rate has increased BY 62 BPM Confirmed by Mariano Casper ([id number]) on 11/09/2021 7:49:45 AM Referred By: REFERRED SELF Confirmed By:Mariano Casper
[2021-11-09] MEDS: GABAPENTIN 300 MG CAP PO SCH ×3 (08:42→20:32)
[2021-11-09] MEDS: OXYBUTYNIN CHLORIDE 5 MG TAB PO SCH ×2 (08:43→20:32)
[2021-11-09] MEDS: METOPROLOL TARTRATE 50 MG TAB PO SCH ×2 (08:43→20:32)
[2021-11-09] MEDS: HYDROXYCHLOROQUINE SULFATE 200 MG TAB PO SCH (08:43)
[2021-11-09] MEDS: predniSONE 5 MG TAB PO SCH (08:44)
[2021-11-09] MEDS: PANTOprazole 40 MG TAB PO SCH (08:44)
--- NOTE | 2021-11-09 09:10 | Surgery Progress Note ---
Date of Service November 09, 2021 Assessment & Plan (1) Ischemic leg pain: Plan: No further intervention possible on right leg. Infrapopliteal arteries are severely calcified. Only outflow to foot is small collaterals that eventually feed a small proximal DP. Mid to distal DP does not visualize. The stented SFA is widely patent and there is good flow to the distal popliteal artery. No named vessels seen below this level. Patient understands that any surgery on the foot has a very high chance of not healing. She is accepting an amputation. This will have to be either BKA or AKA depending on the location of the hardware in her knee. We will follow from a distance. Admission and Anticipated Discharge Date Admission Date: November 07, 2021 Subjective Patient complaining of right foot pain but controlled at present with pain meds. Physical Exam Constitutional: WD/WN, vitals as above Cardiovascular: Extremities: + abnormal capillary refill (decreased on right) right foot mottled Skin: + incision (dry and clean) Results & Data ([facility]) Vital Signs (Past 12 Hours) Vital Signs Temp Pulse Resp BP Pulse Ox 11/09/21 06:00 107 H 28 H 128/59 L 93 11/09/21 05:00 71 19 123/59 L 92 11/09/21 04:00 89 22 90 11/09/21 03:59 37.1 C 85 22 111/65 91 11/09/21 03:00 85 25 H 122/61 92 11/09/21 02:00 85 21 121/60 94 11/09/21 01:00 85 22 118/63 90 11/09/21 00:30 83 24 114/61 92 11/09/21 00:00 36.8 C 86 28 H 102/88 93 11/08/21 23:30 86 23 125/49 L 96 11/08/21 23:00 87 26 H 94 11/08/21 22:30 86 14 138/58 L 94 11/08/21 22:00 89 18 130/63 94 11/08/21 21:30 89 17 112/59 L 95
--- NOTE | 2021-11-09 11:15 | Billing Data ---
Date of Service November 09, 2021 Coding Level of Care Code Critical Care 1st - mins
[2021-11-09] MEDS ORDERED: POTASSIUM CHLORIDE CRTAB 20 MEQ TABCR PO STA (11:16)
--- NOTE | 2021-11-09 12:19 | Hospitalist Progress Note ---
Date of Service November 09, 2021 Assessment & Plan (1) Occlusion of stent of peripheral artery: Plan: 71yo female with history of peripheral arterial disease s/p RLE arteriogram with stenting of right SFA performed 11/06/21 returning with RLE thigh and calf pain, pain in the foot with discoloration and pallor. Found to have occluded superficial femoral arterial stent on Doppler as well as posterior tibial arterial occlusion. Admitted on heparin gtt and then taken to OR with Vascular on 11/08--> no occlusion of SFA stent found but had multiple attempts by Vascular intraoperatively to bypass the tibial artery but was not possible due to calcified arteries. With fever, leukocytosis, cellulitis and wounds of foot, ischemic toes/foot -continue heparin gtt -consult Ortho to see about possible amputation-it seems this is tentatively planned for Thursday--> she has extensive hardware in the RLE from knee replacement so may need AKA -pain control with Hydrocodone/Acetaminophen 10/325mg q 4 hours PRN and IV dilaudid -Zofran PRN nausea -Colace, Senokot, Miralax as needed for constipation -Antibiotic coverage with Ceftriaxone and Vanco -Vascular surgery consultation appreciated (2) Ischemic leg pain: Plan: not amenable to vascular intervention unfortunately plan for likely AKA vs BKA pain control with dilaudid [employer] pump antibiotics for fevers and cellulitis continues on heparin gtt (3) Cellulitis: Plan: Right foot ulceration with cellulitis With fevers continuing, erythema of leg, pallor and cyanosis of foot -check blood cultures -continue abx but change to ceftriaxone and Vanco (was on Dapto) as CPK mildly elevated tylenol as needed for fever (4) PAF (paroxysmal atrial fibrillation): Plan: Rapid atrial fibrillation that came on intraoperatively, rates as high as 160s now on dilt gtt and transferred to ICU post-op from Vascular rates improved now to 80s-120s with exertion -continue home Metoprolol tartrate 50mg po bid and consider increasing dose as weaning off dilt gtt -hold home Eliquis and on heparin gtt -continue dilt gtt for now-hopeful that with resolution of fever and improvement of pain, could have improvement in rates -continue tele (5) Peripheral arterial disease: Plan: With arterial occlusion s/p stenting -Heparin gtt -?Statin use on discharge (6) Rheumatoid arthritis: Plan: Chronic. Stable -Continue Plaquenil -Continue Prednisone 5mg po qAM, 1mg po qPM. Low threshold for stress dosed steroids if patient becomes hypotensive -will need stress dosed steroids for surgery on Thursday (7) Hypertension: Plan: Blood pressure stable -Pain control -Continue Metoprolol -Continue to monitor (8) GERD (gastroesophageal reflux disease): Plan: Chronic. On Omeprazole BID at home -Protonix 40mg po daily (9) Overactive bladder: Plan: Chronic. Controlled on medication -Continue Oxybutynin -PureWick catheter ordered (10) Steroid dependence: Plan: continue prednisone watch for need for stress dose steroids-will definitely need them for the surgery on Thursday Plan: Ppx - Heparin gtt Code - Full Dispo - continued stay in ICU Admission and Anticipated Discharge Date Admission Date: November 07, 2021 Subjective Pt had a lot of pain overnight but now improved control with a [employer] A[employer]LYST dilaudid pump. Having fevers today. Denies SOB, CP, abd pain, or diarrhea. is moving bowels. Has decreased appetite. Tele with Afib with rates in 80s at rest and 120s with minimal exertion like sitting up in bed. Review of Systems Review of Systems: All systems reviewed & are unremarkable except as noted in HPI & below Physical Exam Constitutional: WD/WN, vitals as above Eyes: + anicteric sclerae Neck: trachea midline, no thyromegaly Respiratory: normal respiratory effort, lungs clear to auscultation Cardiovascular: Rate/Rhythm: regular rate and + irregularly irregular Heart Sounds: no murmur Vessels: + dorsalis pedis pulses abnormal (not palpable) Extremities: no edema Chest (Breasts): Chest: normal inspection of chest Gastrointestinal (Abdomen): normal bowel sounds, soft, nontender, no hepatosplenomegaly Musculoskeletal: Extremities: no cyanosis and no clubbing Skin: + lesion (blister open wounds on 3rd-4th toes) and + ulcer (pallor of toes,purplish discolorationof foot) Neurologic: moves all extremities and awake; no focal motor deficits Psychiatric: A+Ox3, euthymic affect Lymphatic: no lymphedema Results & Data Results & Data ([facility]) Vital Signs (Past 12 Hours) Vital Signs Temp Pulse Resp BP Pulse Ox 11/09/21 11:00 112 H 23 133/60 95 11/09/21 10:02 85 21 123/66 95 11/09/21 10:00 78 22 71/50 L 93 11/09/21 09:00 38.1 C H 100 H 21 131/71 95 11/09/21 08:47 89 20 140/64 95 11/09/21 08:00 93 H 23 141/72 H 91 11/09/21 07:00 92 H 20 133/59 L 95 11/09/21 06:00 107 H 28 H 128/59 L 93 11/09/21 05:00 71 19 123/59 L 92 11/09/21 04:00 89 22 90 11/09/21 03:59 37.1 C 85 22 111/65 91 11/09/21 03:00 85 25 H 122/61 92 11/09/21 02:00 85 21 121/60 94 11/09/21 01:00 85 22 118/63 90 11/09/21 00:30 83 24 114/61 92 Laboratory Results 11/09/21 11/09/21 11/09/21 Range/Units 02:34 02:34 02:34 WBC 11.73 H (4.8-10.8) K/uL RBC 3.29 L (4.2-5.4) M/uL Hgb 9.7 L (12.0-16.0) g/dL Hct 30.7 L (37-47) % MCV 93.3 (80-100) fL MCH 29.5 (25-34) pg MCHC 31.6 L (32-36) g/dL RDW Std Deviation 52.1 H (36.4-46.3) fL RDW Coeff of Jarvis 15.3 H (11.5-14.5) % Plt Count 165 (130-400) K/uL MPV 9.8 (7.4-10.4) fL Immature Gran % (Auto) 0.5 % Neut % (Auto) 74.8 % Lymph % (Auto) 12.8 % [place] % (Auto) 10.9 % Eos % (Auto) 0.7 % Baso % (Auto) 0.3 % Neut # (Auto) 8.78 H (1.4-6.5) K/uL Lymph # (Auto) 1.50 (1.2-3.4) K/uL [place] # (Auto) 1.28 H (0.11-0.59) K/uL Eos # (Auto) 0.08 (0-0.5) K/uL Baso # (Auto) 0.03 (0-0.2) K/uL Immature Gran # (Auto) 0.06 H (0.00-0.02) K/uL APTT 58.4 H* (21.0-31.0) Seconds PTT Ratio 2.1 Sodium 134 L (136-145) mmol/L Potassium 4.1 (3.5-5.1) mmol/L Chloride 103 (98-107) mmol/L Carbon Dioxide 23 (21-32) mmol/L Anion Gap 8 (3-11) BUN 14 (6-23) mg/dl Creatinine 0.82 (0.6-1.2) mg/dl Est Cr Clr Drug Dosing 48.3 ml/min Est GFR ( Amer) 82.3 ml/min Est GFR (Non-Af Amer) 71.0 ml/min BUN/Creatinine Ratio 17.1 (10-20) Glucose 112 H (70-99(Fasting)) mg/dl Calcium 7.5 L (8.5-10.1) mg/dl Phosphorus 3.9 (2.5-4.9) mg/dl Magnesium 1.3 L (1.7-2.4) mg/dl Total Creatine Kinase 625 H (26-192) U/L 11/08/21 11/08/21 Range/Units 19:33 15:47 WBC (4.8-10.8) K/uL RBC (4.2-5.4) M/uL Hgb (12.0-16.0) g/dL Hct (37-47) % MCV (80-100) fL MCH (25-34) pg MCHC (32-36) g/dL RDW Std Deviation (36.4-46.3) fL RDW Coeff of Jarvis (11.5-14.5) % Plt Count (130-400) K/uL MPV (7.4-10.4) fL Immature Gran % (Auto) % Neut % (Auto) % Lymph % (Auto) % [place] % (Auto) % Eos % (Auto) % Baso % (Auto) % Neut # (Auto) (1.4-6.5) K/uL Lymph # (Auto) (1.2-3.4) K/uL [place] # (Auto) (0.11-0.59) K/uL Eos # (Auto) (0-0.5) K/uL Baso # (Auto) (0-0.2) K/uL Immature Gran # (Auto) (0.00-0.02) K/uL APTT 34.1 H (21.0-31.0) Seconds PTT Ratio 1.2 Sodium 136 (136-145) mmol/L Potassium 4.2 (3.5-5.1) mmol/L Chloride 103 (98-107) mmol/L Carbon Dioxide 22 (21-32) mmol/L Anion Gap 11 (3-11) BUN 12 (6-23) mg/dl Creatinine 0.89 (0.6-1.2) mg/dl Est Cr Clr Drug Dosing 44.5 ml/min Est GFR ( Amer) 74.5 ml/min Est GFR (Non-Af Amer) 64.3 ml/min BUN/Creatinine Ratio 13.5 (10-20) Glucose 75 (70-99(Fasting)) mg/dl Calcium 7.9 L (8.5-10.1) mg/dl Phosphorus (2.5-4.9) mg/dl Magnesium (1.7-2.4) mg/dl Total Creatine Kinase (26-192) U/L PG Care Time/CCT Total # of Minutes Spent Total Time Spent with Patient: Total time spent is greater than 50% in coordination of care (as documented) at patient's floor/unit and/or counseling patient: Coding Level of Care Code 37766 Subseq Hosp Care Lvl 3 Diagnoses Ischemic leg pain M79.606; I99.8 Cellulitis L03.90 Occlusion of stent of peripheral artery T82.599A PAF (paroxysmal atrial fibrillation) I48.0 Peripheral arterial disease I73.9 Rheumatoid arthritis M06.9 Hypertension I10 GERD (gastroesophageal reflux disease) K21.9 Overactive bladder N32.81 Steroid dependence F19.20
[2021-11-09] MEDS ORDERED: VANCOMYCIN CONSULT ACTIVE PRN (13:16)
[2021-11-09] MEDS ORDERED: VANCOMYCIN HCL 1,250 MG in SODIUM CHLORIDE 0.9% 500 ML IV ONE (13:16)
[2021-11-09] MEDS ORDERED: VANCOMYCIN HCL 1,500 MG in SODIUM CHLORIDE 0.9% 500 ML IV ONE (14:00)
--- NOTE | 2021-11-09 15:21 | Pharmacy Report ---
Pharmacy Vanc AUC Short Note - Date of Service November 09, 2021 - Assessment & Plan Assessment 71 year old F receiving IV vancomycin and ceftriaxone for coverage of cellulitis in setting of ischemic extremity requiring possible amputation. Blood cultures pending. Renal function stable. Day # 1 of antimicrobial therapy. (Previously on daptomycin/ceftriaxone- day#3 combined; discontinued dapto due to CPK elevation) Plan Vancomycin * AUC/ANUSHA is the preferred PK/PD target for vancomycin * AUC guided dosing is effective and associated with decreased risk of nephrotoxicity compared to traditional trough targets * Trough level of 16.4 mcg/mL is predicted to achieve target AUC/ANUSHA of 400-600 mg/L.hr and may be associated with a 12 % risk of nephrotoxicity * Vanc 1500mg IV X 1 loading dose followed by 1500mg IV q24h to begin tonight. * Will obtain a trough around steady state if vancomycin continued. Pharmacy will continue to follow and will adjust dose/frequency as necessary. Thank you.
[2021-11-09] MEDS: cefTRIAXone SODIUM 1,000 MG in DEXTROSE 5% 50 ML IV SCH (20:26)
[2021-11-09] MEDS: SODIUM CHLORIDE 0.9% 1000ML 1,000 ML IV SCH (20:28)
[2021-11-09] MEDS: predniSONE 1 MG TAB PO SCH (20:33)
[2021-11-09] MEDS: MAGNESIUM OXIDE 400 MG TAB PO SCH (20:33)
[2021-11-09] MEDS: HEPARIN SODIUM/DEXTROSE 25,000 UNITS/500 ML BAG IV SCH (21:34)
[2021-11-09] MEDS: VANCOMYCIN HCL 1,500 MG in SODIUM CHLORIDE 0.9% 500 ML IV SCH (22:54)
[2021-11-10 03:48] LABS: Basophils # (auto) 0.01 K/uL (0-0.2); Basophils % (auto) 0.1 %; Eosinophils # (auto) 0.12 K/uL (0-0.5); Eosinophils % (auto) 1.1 %; Hematocrit (blood only) 30.5 % (37-47); Hemoglobin 9.7 g/dL (12.0-16.0); Immature Granulocytes # (auto) 0.05 K/uL (0.00-0.02); Immature Granulocytes % (auto) 0.5 %; Lymphocytes # (auto) 0.99 K/uL (1.2-3.4); Lymphocytes % (auto) 9.1 %; Mean Corpuscular Hgb Conc 31.8 g/dL (32-36); Mean Corpuscular Volume 91.3 fL (80-100); Monocytes # (auto) 1.29 K/uL (0.11-0.59); Monocytes % (auto) 11.8 %; Neutrophils # (auto) 8.45 K/uL (1.4-6.5); Neutrophils % (auto) 77.4 %; Platelet Count 159 K/uL (130-400); RDW Coefficient of Variation 14.9 % (11.5-14.5); RDW Standard Deviation 50.6 fL (36.4-46.3); Red Blood Count 3.34 M/uL (4.2-5.4); White Blood Count 10.91 K/uL (4.8-10.8)
[2021-11-10 04:07] LABS: Albumin Level 2.6 gm/dl (3.4-5.0); BUN Creatinine Ratio 18.8 (10-20); Bilirubin Direct 0.1 mg/dl (0-0.2); Bilirubin,Total 0.5 mg/dl (0.2-1.0); Calcium 7.9 mg/dl (8.5-10.1); Creatinine Clr Calc Pharmacy 53.6 ml/min; Est GFR (African American) 84.8 ml/min; Est GFR (Non-African American) 73.1 ml/min; Magnesium 3.1 mg/dl (1.7-2.4); Phosphorus 2.9 mg/dl (2.5-4.9); Potassium 4.5 mmol/L (3.5-5.1); Total Protein 4.9 gm/dl (6.0-8.3)
[2021-11-10 04:08] LABS: Partial Thromboplastin Ratio 1.9; Partial Thromboplastin Time 52.6 Seconds (21.0-31.0)
[2021-11-10] MEDS: OXYBUTYNIN CHLORIDE 5 MG TAB PO SCH ×2 (08:07→20:25)
[2021-11-10] MEDS: HYDROXYCHLOROQUINE SULFATE 200 MG TAB PO SCH (08:07)
[2021-11-10] MEDS: GABAPENTIN 300 MG CAP PO SCH ×3 (08:07→20:24)
[2021-11-10] MEDS: METOPROLOL TARTRATE 50 MG TAB PO SCH ×2 (08:07→20:25)
[2021-11-10] MEDS: predniSONE 5 MG TAB PO SCH (08:08)
[2021-11-10] MEDS: PANTOprazole 40 MG TAB PO SCH (08:08)
[2021-11-10] MEDS: dilTIAZem HCL 125 MG in DEXTROSE 5% 100 ML IV SCH (08:40)
--- NOTE | 2021-11-10 09:34 | Orthopedic Progress Note ---
Date of Service November 10, 2021 Assessment & Plan (1) Ischemic leg pain: (2) Peripheral arterial disease: Plan: I discussed with Dr. Patel amputation. At this point the patient is accepting of amputation. As per Dr. Patel this would likely need to be a low AKA given the longstem total knee replacement which is in place on the same side. We will discuss with Dr. Patel further timing of amputation, likely sometime this week Admission and Anticipated Discharge Date Admission Date: November 07, 2021 Subjective Jacklyn is with continued complaints of pain in the right lower extremity Review of Systems Musculoskeletal: Right leg is cool and mottled Results & Data ([facility]) Vital Signs (Past 12 Hours) Vital Signs Temp Pulse Resp BP Pulse Ox 11/10/21 07:00 89 21 115/56 L 92 11/10/21 04:00 37.1 C 73 24 112/53 L 93 11/10/21 03:00 73 17 95/58 L 93 11/10/21 02:00 72 25 H 110/59 L 95 11/10/21 01:00 75 23 112/55 L 91 11/10/21 00:00 36.7 C 95 H 32 H 109/67 92 11/09/21 23:05 36.6 C 11/09/21 23:00 109 H 15 111/69 91 11/09/21 22:00 121 H 27 H 113/70 91 11/09/21 21:51 36.7 C
--- NOTE | 2021-11-10 12:31 | Critical Care Progress Note ---
Date of Service November 10, 2021 Assessment & Plan (1) Ischemic leg pain: Plan: ICU Assessment and Plans Reason Critically Ill: 71 yo F with PAD admitted to ICU for AF w/ RVR during failed RLE angiography/angioplasty and now pending orthopedic evaluation NEURO - CAM ICU: NEGATIVE Sedation: None Analgesia: Dilaudid FINANCE VICE PRESIDENT CARDIAC/VASCULAR Atrial fibrillation with RVR - Suspect secondary to physiologic stress from acute vascular illness in setting of known paroxysmal atrial fibrillation - Rate controlled on diltiazem drip continue to down titrate if possible - Telemetry monitoring - Holding home Eliquis for anticoagulation pending potential OR procedure with orthopedics Hypertension - Continue Lopressor 50 mg BID - BP stable Peripheral artery disease - Angiogram/angioplasty failed 11/08, orthopedics following with likely formal amputation on Thursday - Pain control as above RESPIRATORY - No known active respiratory disease. Saturating well on RA GI Heart healthy diet Possibly NPO midnight for OR procedure with orthopedics pending evaluation GERD - Continue pantoprazole daily FLUIDS/RENAL/ELECTROLYTES - Replace electrolytes as needed - No concerns at this time ENDO - No known history of diabetes Vitamin D deficiency - Continue calcitriol HEME - Hgb 11.0, stable Discontinued heparin drip and holding home Eliquis ID - Leukocytosis - Lower suspicion for acute infection but will continue ceftriaxone for recurrent fevers IMMUNE Rheumatoid arthritis - Continue prednisone 5 mg qAM, 1 mg qPM - Continue Plaquenil LINES/IV ACCESS - PIVs DVT PROPHYLAXIS - heparin (2) Superficial occlusion of femoral artery: (3) Occlusion of stent of peripheral artery: (4) Peripheral arterial disease: Admission and Anticipated Discharge Date Admission Date: November 07, 2021 Supervising Physician Co-Signing Physician Notes Patient critically ill requiring IV medications for atrial fibrillation with rapid ventricular response. Anticipate going to the OR for formal revision Thursday. I have personally spent 35 minutes of critical care time in the direct management of this patient. This is a life/limb threatening event. This includes time spent evaluating patient, direct bedside care, chart review, placing orders, interpretation of diagnostic studies, discussion with consultants, patient, and/or family members regarding treatment decisions, as well as other required patient management activities. This time is exclusive of all separately billable procedures, and teaching time and separate from and in addition to any other critical care service time. Subjective Pain in lower extremity well controlled with FINANCE VICE PRESIDENT Review of Systems Review of Systems: Denies chest pain shortness of breath Physical Exam Physical Exam: General: Alert. nontoxic. Skin: Warm, dry, Head: Atraumatic Ears, nose, mouth and throat: airway patent Cardiovascular: Normal peripheral perfusion Respiratory: no respiratory distress Gastrointestinal: Non distended Musculoskeletal: Right lower extremity dusky with increased capillary refill Results & Data Results & Data ([facility]) Vital Signs (Past 12 Hours) Vital Signs Temp Pulse Resp BP Pulse Ox 11/10/21 11:00 37.2 C 79 21 110/69 92 11/10/21 10:00 74 22 105/63 93 11/10/21 09:00 99 H 23 128/59 L 90 11/10/21 08:00 100 H 24 122/56 L 88 L 11/10/21 07:00 89 21 115/56 L 92 11/10/21 04:00 37.1 C 73 24 112/53 L 93 11/10/21 03:00 73 17 95/58 L 93 11/10/21 02:00 72 25 H 110/59 L 95 11/10/21 01:00 75 23 112/55 L 91 Critical Care Results & Data Vital Signs (Past 12 Hours) Vital Signs Temp Pulse Resp BP Pulse Ox 11/10/21 11:00 37.2 C 79 21 110/69 92 11/10/21 10:00 74 22 105/63 93 11/10/21 09:00 99 H 23 128/59 L 90 11/10/21 08:00 100 H 24 122/56 L 88 L 11/10/21 07:00 89 21 115/56 L 92 11/10/21 04:00 37.1 C 73 24 112/53 L 93 11/10/21 03:00 73 17 95/58 L 93 11/10/21 02:00 72 25 H 110/59 L 95 11/10/21 01:00 75 23 112/55 L 91 Lab & Micro Results (Past 24 Hours) RBC 3.34 M/uL (4.2-5.4) L 11/10/21 WBC 10.91 K/uL (4.8-10.8) H 11/10/21 Hgb 9.7 g/dL (12.0-16.0) L 11/10/21 Hct 30.5 % (37-47) L 11/10/21 MCV 91.3 fL (80-100) 11/10/21 MCH 29.0 pg (25-34) 11/10/21 MCHC 31.8 g/dL (32-36) L 11/10/21 RDW Standard Deviation 50.6 fL (36.4-46.3) H 11/10/21 RDW Coefficient of Variation 14.9 % (11.5-14.5) H 11/10/21 Plt Count 159 K/uL (130-400) 11/10/21 MPV 10.0 fL (7.4-10.4) 11/10/21 Neutrophils (%) (Auto) 77.4 % 11/10/21 Lymphocytes (%) (Auto) 9.1 % 11/10/21 Monocytes # (Auto) 1.29 K/uL (0.11-0.59) H 11/10/21 Eosinophils # (Auto) 0.12 K/uL (0-0.5) 11/10/21 Immature Granulocyte % (Auto) 0.5 % 11/10/21 Neutrophils # (Auto) 8.45 K/uL (1.4-6.5) H 11/10/21 Lymphocytes # (Auto) 0.99 K/uL (1.2-3.4) L 11/10/21 Monocytes # (Auto) 1.29 K/uL (0.11-0.59) H 11/10/21 Eosinophils # (Auto) 0.12 K/uL (0-0.5) 11/10/21 Basophils # (Auto) 0.01 K/uL (0-0.2) 11/10/21 Immature Granulocyte # (Auto) 0.05 K/uL (0.00-0.02) H 11/10/21 Na 131 mmol/L (136-145) L 11/10/21 K 4.5 mmol/L (3.5-5.1) 11/10/21 Cl 102 mmol/L (98-107) 11/10/21 CO2 24 mmol/L (21-32) 11/10/21 Anion Gap 5 (3-11) 11/10/21 BUN 15 mg/dl (6-23) 11/10/21 Creatinine 0.80 mg/dl (0.6-1.2) 11/10/21 Estimated GFR ( Amer) 84.8 ml/min 11/10/21 Estimated GFR (Non-Af Amer) 73.1 ml/min 11/10/21 BUN/Creatinine Ratio 18.8 (10-20) 11/10/21 Glu 115 mg/dl (70-99(Fasting)) H 11/10/21 Ca 7.9 mg/dl (8.5-10.1) L 11/10/21 Phosphorus Level 2.9 mg/dl (2.5-4.9) 11/10/21 Total Bilirubin 0.5 mg/dl (0.2-1.0) 11/10/21 Direct Bilirubin 0.1 mg/dl (0-0.2) 11/10/21 AST 17 U/L (13-39) 11/10/21 ALT 8 U/L (7-52) 11/10/21 Alkaline Phosphatase 66 U/L (34-104) 11/10/21 TP 4.9 gm/dl (6.0-8.3) L 11/10/21 Albumin 2.6 gm/dl (3.4-5.0) L 11/10/21 Mg 3.1 mg/dl (1.7-2.4) H 11/10/21 03:23 11/10/21 Calcium Level 7.9 mg/dl (8.5-10.1) L 11/10/21 03:23 11/10/21 I & O Totals 24 Hours 11/09/21 11/10/21 11/11/21 06:59 06:59 06:59 Intake Total 3601.084 / 3601.084 3785.600 / 3785.600 263.500 / 263.500 Output Total 155 / 155 350 / 350 Balance 3446.084 / 3446.084 3435.600 / 3435.600 263.500 / 263.500 Cumulative 11/07/21 17:36 thru 11/10/21 10:24 Intake Total 7940.784 Output Total 805 Balance 7135.784 RT Ventilator Mngmt (Last Documented) Ventilator Ordered Settings Respiratory Rate 21 11/10/21 11:00 Fraction of Inspired Oxygen 100 11/09/21 05:00 Ventilator - PT Measurements Respiratory Rate 21 Coding Level of Care Code Critical Care 1st 30-74 mins Diagnoses Ischemic leg pain M79.606; I99.8 Superficial occlusion of femoral artery I70.209 Occlusion of stent of peripheral artery T82.599A Peripheral arterial disease I73.9
--- NOTE | 2021-11-10 15:49 | Hospitalist Progress Note ---
Date of Service November 10, 2021 Assessment & Plan (1) Occlusion of stent of peripheral artery: Plan: 71yo female with history of peripheral arterial disease s/p RLE arteriogram with stenting of right SFA performed 11/06/21 returning with RLE thigh and calf pain, pain in the foot with discoloration and pallor. Found to have occluded superficial femoral arterial stent on Doppler as well as posterior tibial arterial occlusion. Admitted on heparin gtt and then taken to OR with Vascular on 11/08--> no occlusion of SFA stent found but had multiple attempts by Vascular intraoperatively to bypass the tibial artery but was not possible due to calcified arteries. With fever, leukocytosis, cellulitis and wounds of foot, ischemic toes/foot Fevers now resolved, WBC count back to normal, cellulitis not spreading but foot is obviously ischemic -continue heparin gtt -consult Ortho to see about possible amputation---> she has extensive hardware in the RLE from knee replacement likely needs AKA--> Ortho not exact yet on date of surgery but will be this week -pain control with Hydrocodone/Acetaminophen 10/325mg q 4 hours PRN and IV dilaudid GROUND OPERATIONS SUPERINTENDENT -Zofran PRN nausea -Colace, Senokot, Miralax as needed for constipation -continue Antibiotic coverage with Ceftriaxone and Vanco, follow Vanco trough -Vascular surgery consultation appreciated (2) PAF (paroxysmal atrial fibrillation): Plan: Rapid atrial fibrillation that came on intraoperatively, rates as high as 160s Placed on dilt gtt and transferred to ICU post-op from Vascular rates were improved to 80s and dilt gtt weaned off, but now back up to 120s--> give extra metoprolol 25mg now and restart dilt gtt at 5mg/hr and then wean off dilt as able to BPs stable -if BPs tolerate, increase metoprolol to 75mg po bid starting tomorrow AM -holding home Eliquis and on heparin gtt -hopeful that with resolution of fever and improvement of pain, could have improvement in rates -continue tele monitoring (3) Sepsis: Plan: with fever, tachycardia, leukocytosis, and right foot cellulitis as source treating with antibiotics follow BCxs-NGTD holding home leflunomide, but remains on Plaquenil-will now HOLD Plaquenil as well until after amputation and wounds healing Present on Admission?: Yes (4) Ischemic leg pain: Plan: not amenable to vascular intervention unfortunately with mild resulting rhabdomyolysis due to poor perfusion of muscle tissue plan for likely AKA vs BKA pain control with dilaudid GROUND OPERATIONS SUPERINTENDENT pump antibiotics for fevers and cellulitis continues on heparin gtt (5) Cellulitis: Plan: Right foot ulceration with cellulitis With fevers continuing, erythema of leg, pallor and cyanosis of foot -follow blood cultures -continue abx but change to ceftriaxone and Vanco (was on Dapto) as CPK mildly elevated tylenol as needed for fever holding home immune suppressing drugs (6) Acute respiratory failure with hypoxia: Plan: has been on 4LNC since admission, now weaned down to 2LNC denies SOB, no cough or CP no chronic lung issues never had CXR done--> check CXR now could be pulm edema from rapid afib-may need diuresis (7) Peripheral arterial disease: Plan: With arterial occlusion s/p stenting -Heparin gtt -?Statin use on discharge (8) Rheumatoid arthritis: Plan: Chronic. Stable -hold Plaquenil and leflunomide -Continue Prednisone 5mg po qAM, 1mg po qPM. Low threshold for stress dosed steroids if patient becomes hypotensive -will need stress dosed steroids for surgery (9) Hypertension: Plan: Blood pressure stable -Pain control -Continue Metoprolol -Continue to monitor (10) GERD (gastroesophageal reflux disease): Plan: Chronic. On Omeprazole BID at home -Protonix 40mg po daily (11) Overactive bladder: Plan: Chronic. Controlled on medication -Continue Oxybutynin -PureWick catheter ordered (12) Steroid dependence: Plan: continue prednisone watch for need for stress dose steroids-will definitely need them for the surgery Plan: Ppx - Heparin gtt Code - Full Dispo - continued stay in ICU, but could likely downgrade to PCU-will defer to Loss Prevention Coordinator Discussed care with at bedside Admission and Anticipated Discharge Date Admission Date: November 07, 2021 Subjective Pain controlled in RLE, denies CP or SOB, no nausea, is eating. HRs remain in Afib-was weaned off dilt gtt and rates had been normal, but now sustained in the 120s-130s--> restarted dilt gtt. Making urine, moving bowels Has no other questions or concerns. Review of Systems Review of Systems: All systems reviewed & are unremarkable except as noted in HPI & below Physical Exam Constitutional: WD/WN, vitals as above Eyes: + anicteric sclerae Neck: trachea midline, no thyromegaly Respiratory: normal respiratory effort, lungs clear to auscultation Cardiovascular: Rate/Rhythm: + tachycardic and + irregularly irregular Heart Sounds: no murmur Vessels: + dorsalis pedis pulses abnormal (not palpable) Extremities: + edema (right foot and ankle with edema 1+) Chest (Breasts): Chest: normal inspection of chest Gastrointestinal (Abdomen): normal bowel sounds, soft, nontender, no hepatosplenomegaly Musculoskeletal: Extremities: no cyanosis and no clubbing Skin: + lesion (blister open wounds on 3rd-4th toes), + ulcer (pallor of toes,purplish discolorationof foot) and + erythema (of right foot and ankle) right medial distal leg with dressing in place over surgical wound c/d/i Neurologic: moves all extremities and awake; no focal motor deficits Psychiatric: A+Ox3, euthymic affect Lymphatic: no lymphedema Results & Data Results & Data ([facility]) Vital Signs (Past 12 Hours) Vital Signs Temp Pulse Resp BP Pulse Ox 11/10/21 12:00 97 H 20 115/58 L 92 11/10/21 11:00 37.2 C 79 21 110/69 92 11/10/21 10:00 74 22 105/63 93 11/10/21 09:00 99 H 23 128/59 L 90 11/10/21 08:00 100 H 24 122/56 L 88 L 11/10/21 07:00 89 21 115/56 L 92 11/10/21 04:00 37.1 C 73 24 112/53 L 93 Laboratory Results 11/10/21 11/10/21 11/10/21 Range/Units 07:13 03:23 03:23 WBC 10.91 H (4.8-10.8) K/uL RBC 3.34 L (4.2-5.4) M/uL Hgb 9.7 L (12.0-16.0) g/dL Hct 30.5 L (37-47) % MCV 91.3 (80-100) fL MCH 29.0 (25-34) pg MCHC 31.8 L (32-36) g/dL RDW Std Deviation 50.6 H (36.4-46.3) fL RDW Coeff of Jarvis 14.9 H (11.5-14.5) % Plt Count 159 (130-400) K/uL MPV 10.0 (7.4-10.4) fL Immature Gran % (Auto) 0.5 % Neut % (Auto) 77.4 % Lymph % (Auto) 9.1 % [place] % (Auto) 11.8 % Eos % (Auto) 1.1 % Baso % (Auto) 0.1 % Neut # (Auto) 8.45 H (1.4-6.5) K/uL Lymph # (Auto) 0.99 L (1.2-3.4) K/uL [place] # (Auto) 1.29 H (0.11-0.59) K/uL Eos # (Auto) 0.12 (0-0.5) K/uL Baso # (Auto) 0.01 (0-0.2) K/uL Immature Gran # (Auto) 0.05 H (0.00-0.02) K/uL APTT (21.0-31.0) Seconds PTT Ratio Sodium 131 L (136-145) mmol/L Potassium 4.5 (3.5-5.1) mmol/L Chloride 102 (98-107) mmol/L Carbon Dioxide 24 (21-32) mmol/L Anion Gap 5 (3-11) BUN 15 (6-23) mg/dl Creatinine 0.80 (0.6-1.2) mg/dl Est Cr Clr Drug Dosing 53.6 ml/min Est GFR ( Amer) 84.8 ml/min Est GFR (Non-Af Amer) 73.1 ml/min BUN/Creatinine Ratio 18.8 (10-20) Glucose 115 H (70-99(Fasting)) mg/dl POC Glucose 111 H (70-99) mg/dl Calcium 7.9 L (8.5-10.1) mg/dl Phosphorus 2.9 D (2.5-4.9) mg/dl Magnesium 3.1 H (1.7-2.4) mg/dl Total Bilirubin 0.5 (0.2-1.0) mg/dl Direct Bilirubin 0.1 (0-0.2) mg/dl AST 17 (13-39) U/L ALT 8 (7-52) U/L Alkaline Phosphatase 66 (34-104) U/L Total Creatine Kinase 732 H (26-192) U/L Total Protein 4.9 L (6.0-8.3) gm/dl Albumin 2.6 L (3.4-5.0) gm/dl 11/10/21 11/09/21 Range/Units 03:23 16:50 WBC (4.8-10.8) K/uL RBC (4.2-5.4) M/uL Hgb (12.0-16.0) g/dL Hct (37-47) % MCV (80-100) fL MCH (25-34) pg MCHC (32-36) g/dL RDW Std Deviation (36.4-46.3) fL RDW Coeff of Jarvis (11.5-14.5) % Plt Count (130-400) K/uL MPV (7.4-10.4) fL Immature Gran % (Auto) % Neut % (Auto) % Lymph % (Auto) % [place] % (Auto) % Eos % (Auto) % Baso % (Auto) % Neut # (Auto) (1.4-6.5) K/uL Lymph # (Auto) (1.2-3.4) K/uL [place] # (Auto) (0.11-0.59) K/uL Eos # (Auto) (0-0.5) K/uL Baso # (Auto) (0-0.2) K/uL Immature Gran # (Auto) (0.00-0.02) K/uL APTT 52.6 H* (21.0-31.0) Seconds PTT Ratio 1.9 Sodium (136-145) mmol/L Potassium (3.5-5.1) mmol/L Chloride (98-107) mmol/L Carbon Dioxide (21-32) mmol/L Anion Gap (3-11) BUN (6-23) mg/dl Creatinine (0.6-1.2) mg/dl Est Cr Clr Drug Dosing ml/min Est GFR ( Amer) ml/min Est GFR (Non-Af Amer) ml/min BUN/Creatinine Ratio (10-20) Glucose (70-99(Fasting)) mg/dl POC Glucose (70-99) mg/dl Calcium (8.5-10.1) mg/dl Phosphorus (2.5-4.9) mg/dl Magnesium (1.7-2.4) mg/dl Total Bilirubin (0.2-1.0) mg/dl Direct Bilirubin (0-0.2) mg/dl AST (13-39) U/L ALT (7-52) U/L Alkaline Phosphatase (34-104) U/L Total Creatine Kinase 866 H (26-192) U/L Total Protein (6.0-8.3) gm/dl Albumin (3.4-5.0) gm/dl PG Care Time/CCT Total # of Minutes Spent Total Time Spent with Patient: Total time spent is greater than 50% in coordination of care (as documented) at patient's floor/unit and/or counseling patient: Coding Level of Care Code 61120 Subseq Hosp Care Lvl 3 Diagnoses Occlusion of stent of peripheral artery T82.599A Ischemic leg pain M79.606; I99.8 Cellulitis L03.90 PAF (paroxysmal atrial fibrillation) I48.0 Peripheral arterial disease I73.9 Rheumatoid arthritis M06.9 Hypertension I10 GERD (gastroesophageal reflux disease) K21.9 Overactive bladder N32.81 Steroid dependence F19.20 Sepsis A41.9 Acute respiratory failure with hypoxia J96.01
[2021-11-10] MEDS ORDERED: METOPROLOL TARTRATE 25 MG TAB PO ONE (16:00)
[2021-11-10] MEDS ORDERED: FUROSEMIDE INJ 20 MG/2 ML VIAL IV ONE (16:28)
--- NOTE | 2021-11-10 17:18 | XRay Report ---
XR chest 1V portable CLINICAL HISTORY: hypoxia COMPARISON STUDY: Chest radiograph June 06, 2021. FINDINGS: Incidental note is made of severe degenerative changes of both shoulders. There is no pneum othorax. Small bilateral pleural effusions are noted with bibasilar opacities. Suspected mild interst itial pulmonary edema. Postoperative findings within the lumbar spine are partially imaged. IMPRESSION: Mild interstitial pulmonary edema with small bilateral pleural effusions and associated bibasilar opacities which could reflect atelectasis or consolidation. Radiographic follow-up is recom mended. ACT 112: Negative or not required by law. Electronically signed by: Devon Zee M.D. 11/10/2021 5:17 PM
[2021-11-10] MEDS: cefTRIAXone SODIUM 1,000 MG in DEXTROSE 5% 50 ML IV SCH (20:22)
[2021-11-10] MEDS: predniSONE 1 MG TAB PO SCH (20:24)
[2021-11-10] MEDS: MAGNESIUM OXIDE 400 MG TAB PO SCH (20:24)
[2021-11-10] MEDS: VANCOMYCIN HCL 1,500 MG in SODIUM CHLORIDE 0.9% 500 ML IV SCH (23:07)
[2021-11-10] MEDS: HEPARIN SODIUM/DEXTROSE 25,000 UNITS/500 ML BAG IV SCH (23:15)
[2021-11-10] MEDS: SODIUM CHLORIDE 0.9% 1000ML 1,000 ML IV SCH (23:16)
[2021-11-11] MEDS: dilTIAZem HCL 125 MG in DEXTROSE 5% 100 ML IV SCH (04:10)
[2021-11-11 05:25] LABS: Basophils # (auto) 0.01 K/uL (0-0.2); Basophils % (auto) 0.1 %; Eosinophils # (auto) 0.14 K/uL (0-0.5); Eosinophils % (auto) 1.5 %; Hematocrit (blood only) 31.2 % (37-47); Hemoglobin 9.9 g/dL (12.0-16.0); Immature Granulocytes # (auto) 0.06 K/uL (0.00-0.02); Immature Granulocytes % (auto) 0.7 %; Lymphocytes # (auto) 1.06 K/uL (1.2-3.4); Lymphocytes % (auto) 11.6 %; Mean Corpuscular Hemoglobin 28.4 pg (25-34); Mean Corpuscular Hgb Conc 31.7 g/dL (32-36); Mean Corpuscular Volume 89.4 fL (80-100); Mean Platelet Volume 10.5 fL (7.4-10.4); Monocytes # (auto) 1.34 K/uL (0.11-0.59); Monocytes % (auto) 14.6 %; Neutrophils # (auto) 6.55 K/uL (1.4-6.5); Neutrophils % (auto) 71.5 %; Platelet Count 191 K/uL (130-400); RDW Standard Deviation 48.9 fL (36.4-46.3); Red Blood Count 3.49 M/uL (4.2-5.4); White Blood Count 9.16 K/uL (4.8-10.8)
[2021-11-11 05:40] LABS: BUN Creatinine Ratio 18.3 (10-20); Calcium 7.8 mg/dl (8.5-10.1); Creatinine Clr Calc Pharmacy 40.2 ml/min; Est GFR (African American) 58.3 ml/min; Est GFR (Non-African American) 50.3 ml/min; Magnesium 2.7 mg/dl (1.7-2.4); Phosphorus 3.3 mg/dl (2.5-4.9); Potassium 4.4 mmol/L (3.5-5.1)
[2021-11-11 05:54] LABS: Partial Thromboplastin Ratio 1.5; Partial Thromboplastin Time 39.9 Seconds (21.0-31.0)
[2021-11-11] MEDS: CALCITRIOL 0.25 MCG CAPSULE PO SCH (07:38)
[2021-11-11] MEDS: PANTOprazole 40 MG TAB PO SCH (07:38)
[2021-11-11] MEDS: METOPROLOL TARTRATE 50 MG TAB PO SCH ×2 (07:38→19:33)
[2021-11-11] MEDS: OXYBUTYNIN CHLORIDE 5 MG TAB PO SCH ×2 (07:38→19:33)
[2021-11-11] MEDS: GABAPENTIN 300 MG CAP PO SCH ×3 (07:39→19:33)
[2021-11-11] MEDS: predniSONE 5 MG TAB PO SCH (07:39)
[2021-11-11] MEDS ORDERED: HYDROCORTISONE SOD 50 MG in SYRINGE 0 ML IV SCH (09:00)
[2021-11-11] MEDS: SODIUM CHLORIDE 0.9% 1000ML 1,000 ML IV SCH ×2 (09:58→19:35)
--- NOTE | 2021-11-11 10:32 | Critical Care Progress Note ---
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 - Telemetry monitoring - Holding home Eliquis for anticoagulation pending potential OR procedure with orthopedics Hypertension - Continue Lopressor 50 mg BID - BP stable Peripheral artery disease - Angiogram/angioplasty failed 11/08, orthopedics following with likely formal amputation on Thursday - Pain control as above RESPIRATORY - No known active respiratory disease. Saturating well on RA GI Heart healthy diet N.p.o. at this time for surgery GERD - Continue pantoprazole daily FLUIDS/RENAL/ELECTROLYTES - Replace electrolytes as needed - No concerns at this time ENDO - No known history of diabetes Vitamin D deficiency - Continue calcitriol HEME - Hgb 11.0, stable Discontinued heparin drip and holding home Eliquis ID - Leukocytosis - Lower suspicion for acute infection but will continue ceftriaxone for recurrent fevers IMMUNE Rheumatoid arthritis - Continue prednisone 5 mg qAM, 1 mg qPM - Continue Plaquenil LINES/IV ACCESS - PIVs DVT PROPHYLAXIS - heparin Stable for downgrade out of the ICU after surgery today. (2) Superficial occlusion of femoral artery: (3) Occlusion of stent of peripheral artery: (4) Peripheral arterial disease: Admission and Anticipated Discharge Date Admission Date: November 07, 2021 Subjective Patient seen and examined. Hemodynamically stable. No acute complaints. Plan to go for right BKA later today. Review of Systems Review of Systems: All systems reviewed & are unremarkable except as noted in HPI & below Physical Exam Physical Exam: General: Alert. nontoxic. Skin: Warm, dry, Head: Atraumatic Ears, nose, mouth and throat: airway patent Cardiovascular: Normal peripheral perfusion Respiratory: no respiratory distress Gastrointestinal: Non distended Musculoskeletal: Right lower extremity dusky with increased capillary refill Results & Data Results & Data ([facility]) Vital Signs (Past 12 Hours) Vital Signs Temp Pulse Resp BP Pulse Ox 11/11/21 10:00 88 24 113/92 95 11/11/21 09:02 82 24 115/79 96 11/11/21 09:00 82 24 93 11/11/21 08:01 129/78 11/11/21 08:00 36.7 C 110 H 20 93 11/11/21 07:01 123/69 11/11/21 07:00 107 H 22 90 11/11/21 06:00 82 18 122/64 94 11/11/21 05:51 84 24 124/62 92 11/11/21 05:00 103 H 20 121/58 L 92 11/11/21 04:01 36.9 C 106 H 21 126/56 L 94 11/11/21 04:00 105 H 18 121/80 94 11/11/21 03:00 80 20 97 11/11/21 02:00 80 21 120/68 93 11/11/21 01:00 82 19 116/61 91 11/11/21 00:00 80 24 120/59 L 94 11/10/21 23:43 36.6 C 11/10/21 23:00 81 24 113/65 94 Coding Level of Care Code 02660 Subseq Hosp Care Lv 1 Diagnoses Ischemic leg pain M79.606; I99.8 Superficial occlusion of femoral artery I70.209 Occlusion of stent of peripheral artery T82.599A Peripheral arterial disease I73.9
[2021-11-11 12:50] LABS: INR 1.1 (0.9-1.1); Partial Thromboplastin Time 28.7 Seconds (21.0-31.0); Prothrombin Time 11.4 Seconds (9.0-12.0)
--- NOTE | 2021-11-11 15:21 | Communication Note ---
Date of Service: November 11, 2021 pt was scheduled for right lower extremity amputation today. Pt returned to RVR when diltiazem drip was discontinued this AM. I spoke to Dr Patel and we both feel that this case is not an emergency and pt would be better served by obtaining better rate control. I also, requested the patient have an echo because of the rates of 170-180 bpm she had preoperatively on thursday and continued RVR episodes this weekend. The patient presented on thursday to the holding area with several hours of afib with rvr, but she was deemed a surgical emergency. We proceeded after a diltiazem drip was started and HR of ~100 was achieved. I spoke to the patient and her about the differences between today and last thursday. All questions were answered. I also spoke with the Dr Azul about rate control/echo.
[2021-11-11] MEDS ORDERED: METOPROLOL TARTRATE 1 MG/ML VIAL IV STA (15:30)
[2021-11-11] MEDS: dilTIAZem HCL 30 MG TAB PO SCH ×2 (15:30→19:33)
--- NOTE | 2021-11-11 17:18 | XCELERA ---
[id number]
[2021-11-11] MEDS: HYDROCORTISONE SOD 25 MG in SYRINGE 0 ML IV SCH (19:32)
[2021-11-11] MEDS: predniSONE 1 MG TAB PO SCH (19:33)
[2021-11-11] MEDS: MAGNESIUM OXIDE 400 MG TAB PO SCH (19:33)
--- NOTE | 2021-11-11 20:45 | Hospitalist Progress Note ---
Date of Service November 11, 2021 Assessment & Plan (1) Occlusion of stent of peripheral artery: Plan: 71yo female with history of peripheral arterial disease s/p RLE arteriogram with stenting of right SFA performed 11/06/21 returning with RLE thigh and calf pain, pain in the foot with discoloration and pallor. Found to have occluded superficial femoral arterial stent on Doppler as well as posterior tibial arterial occlusion. Admitted on heparin gtt and then taken to OR with Vascular on 11/08--> no occlusion of SFA stent found but had multiple attempts by Vascular intraoperatively to bypass the tibial artery but was not possible due to calcified arteries. With fever, leukocytosis, cellulitis and wounds of foot, ischemic toes/foot Fevers now resolved, WBC count back to normal, cellulitis not spreading but foot is obviously ischemic -continue heparin gtt -consult Ortho to see about possible amputation---> she has extensive hardware in the RLE from knee replacement likely needs AKA--> Ortho not exact yet on date of surgery but will be this week -pain control with Hydrocodone/Acetaminophen 10/325mg q 4 hours PRN and IV dilaudid [employer] -Zofran PRN nausea -Colace, Senokot, Miralax as needed for constipation -continue Antibiotic coverage with Ceftriaxone and Vanco, follow Vanco trough -Vascular surgery consultation appreciated -Patient's procedure postponed as patient returned to R. (2) PAF (paroxysmal atrial fibrillation): Plan: Rapid atrial fibrillation that came on intraoperatively, rates as high as 160s Placed on dilt gtt and transferred to ICU post-op from Vascular BPs stable -Patient returned to RVR -restarted diltiazem drip, continue metoprolol BID. -holding home Eliquis and on heparin gtt -hopeful that with resolution of fever and improvement of pain, could have improvement in rates -continue tele monitoring (3) Sepsis: Plan: with fever, tachycardia, leukocytosis, and right foot cellulitis as source treating with antibiotics follow BCxs-NGTD holding home leflunomide, but remains on Plaquenil-will now HOLD Plaquenil as well until after amputation and wounds healing (4) Ischemic leg pain: Plan: not amenable to vascular intervention unfortunately with mild resulting rhabdomyolysis due to poor perfusion of muscle tissue plan for likely AKA vs BKA pain control with dilaudid [employer] pump antibiotics for fevers and cellulitis continues on heparin gtt (5) Cellulitis: Plan: Right foot ulceration with cellulitis With fevers continuing, erythema of leg, pallor and cyanosis of foot -follow blood cultures -continue abx but change to ceftriaxone and Vanco (was on Dapto) as CPK mildly elevated tylenol as needed for fever holding home immune suppressing drugs (6) Acute respiratory failure with hypoxia: Plan: has been on 4LNC since admission, now weaned down to 2LNC denies SOB, no cough or CP no chronic lung issues never had CXR done--> check CXR now could be pulm edema from rapid afib-may need diuresis (7) Peripheral arterial disease: Plan: With arterial occlusion s/p stenting -Heparin gtt -?Statin use on discharge (8) Rheumatoid arthritis: Plan: Chronic. Stable -hold Plaquenil and leflunomide -Continue Prednisone 5mg po qAM, 1mg po qPM. Low threshold for stress dosed steroids if patient becomes hypotensive -will need stress dosed steroids for surgery (9) Hypertension: Plan: Blood pressure stable -Pain control -Continue Metoprolol -Continue to monitor (10) GERD (gastroesophageal reflux disease): Plan: Chronic. On Omeprazole BID at home -Protonix 40mg po daily (11) Overactive bladder: Plan: Chronic. Controlled on medication -Continue Oxybutynin -PureWick catheter ordered (12) Steroid dependence: Plan: continue prednisone watch for need for stress dose steroids-will definitely need them for the surgery Plan: Ppx - Heparin gtt Code - Full Dispo - continued stay in ICU, but could likely downgrade to PCU-will defer to [facility] Discussed care with at bedside Admission and Anticipated Discharge Date Admission Date: November 07, 2021 Subjective Patient reports no new symptoms. Review of Systems Review of Systems: All systems reviewed & are unremarkable except as noted in HPI & below Physical Exam Physical Exam: Constitutional: WD/WN, vitals as above Eyes: + anicteric sclerae Neck: trachea midline, no thyromegaly Respiratory: normal respiratory effort, lungs clear to auscultation Cardiovascular: Rate/Rhythm: + tachycardic and + irregularly irregular Heart Sounds: no murmur Vessels: + dorsalis pedis pulses abnormal (not palpable) Extremities: + edema (right foot and ankle with edema 1+) Chest (Breasts): Chest: normal inspection of chest Gastrointestinal (Abdomen): normal bowel sounds, soft, nontender, no hepatosplenomegaly Musculoskeletal: Extremities: no cyanosis and no clubbing Skin: + lesion (blister open wounds on 3rd-4th toes), + ulcer (pallor of toes,purplish discolorationof foot) and + erythema (of right foot and ankle) ri ght medial distal leg with dressing in place over surgical wound c/d/i Neurologic: moves all extremities and awake; no focal motor deficits Psychiatric: A+Ox3, euthymic affect Lymphatic: no lymphedema Results & Data Results & Data ([facility]) Vital Signs (Past 12 Hours) Vital Signs Temp Pulse Resp BP BP Pulse Ox 11/11/21 18:00 106 H 32 H 92 11/11/21 17:00 120 H 24 93 11/11/21 16:00 36.6 C 106 H 21 107/77 94 11/11/21 15:37 130 H 131/80 11/11/21 15:32 136 H 15 131/80 92 11/11/21 15:00 129 H 20 116/73 93 11/11/21 14:46 129 H 20 136/79 94 11/11/21 14:30 37.2 C 22 136/79 94 11/11/21 14:01 120 H 27 H 137/71 93 11/11/21 14:00 121 H 21 92 11/11/21 13:00 136 H 23 108/87 91 11/11/21 12:01 136 H 18 99/58 L 92 11/11/21 12:00 136 H 18 91 11/11/21 11:00 122 H 21 90 11/11/21 10:00 88 24 113/92 95 11/11/21 09:02 82 24 115/79 96 11/11/21 09:00 82 24 93 PG Care Time/CCT Total # of Minutes Spent Total Time Spent with Patient: Total time spent is greater than 50% in coordination of care (as documented) at patient's floor/unit and/or counseling patient: Coding Level of Care Code 12638 Subseq Hosp Care Lvl 2 Diagnoses Occlusion of stent of peripheral artery T82.599A PAF (paroxysmal atrial fibrillation) I48.0 Sepsis A41.9 Ischemic leg pain M79.606; I99.8 Cellulitis L03.90 Acute respiratory failure with hypoxia J96.01 Peripheral arterial disease I73.9 Rheumatoid arthritis M06.9 Hypertension I10 GERD (gastroesophageal reflux disease) K21.9 Overactive bladder N32.81 Steroid dependence F19.20
[2021-11-11 23:23] LABS: Partial Thromboplastin Ratio 1.6; Partial Thromboplastin Time 42.9 Seconds (21.0-31.0)
[2021-11-12 05:29] LABS: Partial Thromboplastin Ratio 1.2; Partial Thromboplastin Time 32.4 Seconds (21.0-31.0)
[2021-11-12 06:41] LABS: Basophils # (auto) 0.01 K/uL (0-0.2); Basophils % (auto) 0.1 %; Eosinophils # (auto) 0.02 K/uL (0-0.5); Eosinophils % (auto) 0.2 %; Hematocrit (blood only) 28.9 % (37-47); Hemoglobin 9.2 g/dL (12.0-16.0); Immature Granulocytes # (auto) 0.04 K/uL (0.00-0.02); Immature Granulocytes % (auto) 0.4 %; Lymphocytes # (auto) 0.74 K/uL (1.2-3.4); Lymphocytes % (auto) 7.3 %; Mean Corpuscular Hemoglobin 28.8 pg (25-34); Mean Corpuscular Hgb Conc 31.8 g/dL (32-36); Mean Corpuscular Volume 90.3 fL (80-100); Mean Platelet Volume 10.4 fL (7.4-10.4); Monocytes # (auto) 1.43 K/uL (0.11-0.59); Neutrophils # (auto) 7.96 K/uL (1.4-6.5); Platelet Count 211 K/uL (130-400); RDW Standard Deviation 49.6 fL (36.4-46.3)
[2021-11-12 06:55] LABS: BUN Creatinine Ratio 24.1 (10-20); Calcium 8.1 mg/dl (8.5-10.1); Creatinine Clr Calc Pharmacy 49.7 ml/min; Est GFR (African American) 76.6 ml/min; Est GFR (Non-African American) 66.1 ml/min; Magnesium 2.6 mg/dl (1.7-2.4); Potassium 4.2 mmol/L (3.5-5.1)
[2021-11-12] MEDS: HEPARIN SODIUM/DEXTROSE 25,000 UNITS/500 ML BAG IV SCH ×2 (07:23→20:19)
[2021-11-12] MEDS: GABAPENTIN 300 MG CAP PO SCH ×3 (08:02→20:13)
[2021-11-12] MEDS: HYDROCORTISONE SOD 25 MG in SYRINGE 0 ML IV SCH ×2 (08:02→20:13)
[2021-11-12] MEDS: PANTOprazole 40 MG TAB PO SCH (08:02)
[2021-11-12] MEDS: dilTIAZem HCL 30 MG TAB PO SCH ×2 (08:02→14:41)
[2021-11-12] MEDS: METOPROLOL TARTRATE 50 MG TAB PO SCH (08:03)
[2021-11-12] MEDS: OXYBUTYNIN CHLORIDE 5 MG TAB PO SCH ×2 (08:03→20:14)
[2021-11-12] MEDS: predniSONE 5 MG TAB PO SCH (08:03)
[2021-11-12] MEDS ORDERED: METOPROLOL TARTRATE 25 MG TAB PO STA (08:42)
[2021-11-12] MEDS ORDERED: cefTRIAXone SODIUM 2,000 MG in DEXTROSE 5% 50 ML IV ONE (10:30)
[2021-11-12] MEDS ORDERED: VANCOMYCIN HCL 1,250 MG in SODIUM CHLORIDE 0.9% 250 ML IV ONE (10:30)
--- NOTE | 2021-11-12 10:47 | Critical Care Progress Note ---
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 Continue oral diltiazem and metoprolol. Heparin drip on hold in anticipation of surgery. -Echo reviewed without evidence of cardiomyopathy. Hypertension - Continue Lopressor 50 mg BID - BP stable Peripheral artery disease - Angiogram/angioplasty failed 11/08, orthopedics following with likely formal amputation - Pain control as above RESPIRATORY - No known active respiratory disease. Saturating well on RA GI Heart healthy diet N.p.o. at this time for surgery GERD - Continue pantoprazole daily FLUIDS/RENAL/ELECTROLYTES - Replace electrolytes as needed - No concerns at this time ENDO - No known history of diabetes Vitamin D deficiency - Continue calcitriol HEME - Hgb 11.0, stable Discontinued heparin drip and holding home Eliquis ID - Leukocytosis -continue with broad-spectrum antibiotics. IMMUNE Rheumatoid arthritis -Stress dose steroids added in anticipation of surgery given her history of chronic prednisone use. LINES/IV ACCESS - PIVs DVT PROPHYLAXIS - heparin Stable for downgrade out of the ICU after surgery. (2) Superficial occlusion of femoral artery: (3) Occlusion of stent of peripheral artery: (4) Peripheral arterial disease: Admission and Anticipated Discharge Date Admission Date: November 07, 2021 Subjective Patient's heart rate much better controlled with low-dose diltiazem p.o. added. Patient denies any significant pain at present. CHEMICAL TREATMENT OPERATOR pump in place. Review of Systems Review of Systems: All systems reviewed & are unremarkable except as noted in HPI & below Physical Exam Physical Exam: General: Alert. nontoxic. Skin: Warm, dry, Head: Atraumatic Ears, nose, mouth and throat: airway patent Cardiovascular: Normal peripheral perfusion Respiratory: no respiratory distress Gastrointestinal: Non distended Musculoskeletal: Right lower extremity dusky with increased capillary refill Results & Data Results & Data ([facility]) Vital Signs (Past 12 Hours) Vital Signs Temp Pulse Resp BP Pulse Ox 11/12/21 08:14 36.8 C 11/12/21 08:01 111 H 18 153/71 H 95 05/10/22 08:00 112 H 19 96 11/12/21 07:02 129 H 23 122/90 80 L 11/12/21 07:00 141 H 20 73 L 11/12/21 06:00 126 H 18 149/78 H 96 11/12/21 05:00 85 19 92 11/12/21 04:23 36.7 C 11/12/21 04:00 85 19 129/70 94 11/12/21 03:00 83 18 138/68 94 11/12/21 02:00 107 H 21 116/76 94 11/12/21 01:00 85 14 118/67 96 11/12/21 00:00 37 C 83 16 136/66 11/11/21 23:00 82 25 H 128/73 Coding Level of Care Code 71534 Subseq Hosp Care Lv 3 Diagnoses Ischemic leg pain M79.606; I99.8 Superficial occlusion of femoral artery I70.209 Occlusion of stent of peripheral artery T82.599A Peripheral arterial disease I73.9
[2021-11-12] MEDS ORDERED: METOPROLOL TARTRATE 1 MG/ML VIAL IV STA (14:16)
--- NOTE | 2021-11-12 16:06 | Communication Note ---
Date of Service: November 12, 2021 Patient's surgery was supposed to be done yesterday for the AKA. She had an episode with her atrial fibrillation and went into RVR. The case was canceled y . It was under Dr. Patel's understanding that her cardiac situation may take a day or 2 for stabilizing. He assumed that she would not be done until at least tomorrow. We will let her eat today and make her n.p.o. after midnight. Awaiting Dr. Patel's input for possible surgery tomorrow. There is a possibility that I will reach out to general surgery to see if there is a possibility that they could also do the amputation.
[2021-11-12] MEDS ORDERED: Nursing to Pharmacy Communication SCH (17:15)
[2021-11-12] MEDS ORDERED: AMIODARONE / D5W 150 MG/100 ML BAG IV STA (17:24)
[2021-11-12] MEDS ORDERED: AMIODARONE IV BOLUS & DRIP IV STA (17:24)
[2021-11-12] MEDS ORDERED: STAT IV Infusion **Titration per Protocol STA (17:24)
[2021-11-12] MEDS ORDERED: 0.2 MICRON FILTER SET 1 EA IV ONE (17:24)
--- NOTE | 2021-11-12 17:31 | Cardiology Consultation ---
Date of Consultation November 12, 2021 Assessment & Plan (1) PAF (paroxysmal atrial fibrillation): ASSESSMENT/PLAN: 1. Paroxysmal atrial fibrillation: She is having episodes of AFib with RVR, which is not unexpected given her current medical situation. It will likely continue to occur intraoperatively and postoperatively, more than baseline for her. Therefore, recommend amiodarone IV throughout the perioperative, operative, and postoperative period, in an attempt to suppress AFib for now. The duration of amiodarone therapy will be left to Dr. Vance, her primary police commanding officer, but because she has tolerated paroxysmal AFib well as an outpatient on rate control strategy, could resume rate control strategy when she has shown some recovery from her acute issue. Recommend anticoagulation for stroke risk reduction. Anticoagulation therapy has been held in anticipation of surgery today. Because surgery will not occur today, nursing staff is starting heparin drip which can be discontinued as per surgery. Will discontinue diltiazem while starting amiodarone. 2. Disposition: Dr. Vance will resume her cardiology care tomorrow. Plan of care communicated with Dr. Azul of the critical care team. Also discussed with nursing staff. Thank you for allowing me to participate in the care of your patient. Please call for any other questions or concerns. Sincerely, Carlos Brewer M.D. History of Present Illness Reason for Consultation: Atrial fibrillation with RVR Requesting Physician: Ashley Yun Attending Physician: Cristhian Graham History of Present Illness Mrs. Esparza is a very pleasant 71-year-old female with a history significant for paroxysmal atrial fibrillation, hypertension, paroxysmal SVT, and rheumatoid arthritis. Her primary police commanding officer is Dr. Vance. She was admitted on 11/07/2021 for ischemic right leg pain. She had been e xperiencing right leg pain for 4-5 weeks prior to presentation and when seen by Dr. mcconnell, the right foot was mottled and white. She underwent right lower extremity arteriogram on 11/08/2021. She was found to have heavily calcified arteries and occlusion of the right peroneal and posterior tibial artery. It was not felt that she was a revascularization candidate and amputation was recommended. She had been on Eliquis for stroke risk reduction for paroxysmal atrial fibrillation. She reports being on amiodarone in the past and tolerated it well but was discontinued approximately 1 year ago. She apparently was scheduled for amputation on 11/11/2021 but AFib with RVR occurred and Anesthesiology and Orthopedics postpone surgery. She has been treated with a diltiazem drip and has since been converted to oral diltiazem with titration of her home oral metoprolol. When reviewing telemetry, she continues to have paroxysmal atrial fibrillation and over the past 24 hours, appears to have been in sinus more than AFib. She is asymptomatic from AFib stating she may have felt 1 episode of palpitations while hospitalized but otherwise has not noted any change in symptoms. She denies chest pain, shortness of breath, syncope, near-syncope, edema, melena, hematochezia, hematuria, or other bleeding. Her is at the bedside and states that at home he checks her heart rate often with a pulse oximeter and her heart rate is typically 70s to 80s. Review of systems: As above. Review of systems otherwise negative/unremarkable. Family history: No known premature CAD. Social history: She denies tobacco, alcohol, or drug abuse. She is and lives at home with her . They have 1 daughter and 1 granddaughter. Her was present at the bedside. Allergies Allergy/AdvReac Type Severity Reaction Status Date / Time dalbavancin Allergy Severe hypotension, Verified 11/07/21 20:59 flushing, tachypnea Home Medications Medication Instructions Recorded Confirmed Type lactobacillus combination no.4 3 3,000 mmu cells PO QAM 03/30/18 11/07/21 History billion cell capsule (Probiotic) prednisone 1 mg tablet 1 mg PO QPM 03/30/18 11/07/21 History prednisone 5 mg tablet 5 mg PO QAM 03/30/18 11/07/21 History cranberry 500 mg capsule 500 mg PO QPM 09/29/18 11/07/21 History omeprazole 20 mg capsule,delayed 20 mg PO BID 09/29/18 11/07/21 History release vit A 7,160 unit-vit C 113 mg-vit 1 tab PO QAM 10/08/18 11/07/21 History E-zinc uv-itoclr-mkflof 1 mg tablet ([facility]) leg brace (Knee Stabilizer) #1 ea 02/10/19 10/02/21 Rx calcitriol 0.5 mcg capsule 0.5 mcg PO 2XWK 02/21/20 11/07/21 History (Rocaltrol) leflunomide 20 mg tablet (Arava) 20 mg PO QAM 03/27/20 11/07/21 History calcium carbonate 600 mg-vitamin 1 cap PO BID 07/16/20 11/07/21 History D3 5 mcg (200 unit) capsule (Calcium 600 + D(3)) gabapentin 300 mg capsule 300 mg PO TID 07/16/20 11/07/21 History metoprolol tartrate 50 mg tablet 50 mg PO BID #180 tab 12/27/20 11/07/21 Rx sennosides 8.6 mg tablet (senna) 8.6 mg PO DAILY PRN 02/28/21 11/07/21 History hydrocodone 10 mg-acetaminophen 1 tab PO Q4 PRN 03/07/21 11/07/21 History 325 mg tablet meclizine 25 mg tablet 25 mg PO BID PRN #20 tab 07/26/21 11/07/21 Rx apixaban 5 mg tablet (Eliquis) 5 mg PO BID #180 tab 08/28/21 11/07/21 Rx oxybutynin chloride 5 mg tablet 5 mg PO BID #180 tab 08/28/21 11/07/21 Rx ferrous sulfate 325 mg (65 mg 325 mg PO QAM 09/26/21 11/07/21 History iron) tablet hydroxychloroquine 200 mg tablet 200 mg PO DAILY tab 10/02/21 11/07/21 History (Plaquenil) cephalexin 500 mg capsule 500 mg PO TID 11/07/21 11/07/21 History Patient History Medical History Chronic back pain DDD (degenerative disc disease) GERD (gastroesophageal reflux disease) controlled History of COVID-19 hospitalized 07/16/20 [facility]. hypoxia, fever, cough, chills, loss of taste/smell. pt reports taste/smell still not fully back to normal. History of Hodgkin's lymphoma 2003/under surveillance by PCP/Dr. Thibodeaux- S/p chemo in 2003- none since History of oral cancer s/p tongue excision left side (no chemo/no XRT 2013) No issues since Hypertension Ischemic leg pain Overactive bladder PAF (paroxysmal atrial fibrillation) hx - on Eliquis Paroxysmal SVT (supraventricular tachycardia) hx (follows with Dr. Vance) Peripheral arterial disease PONV (postoperative nausea and vomiting) RA (rheumatoid arthritis) on chronic steroid Skin benign neoplasm Vertigo No current issues Surgical History H/O foot surgery TOES X MULTIPLE H/O parathyroidectomy History of biopsy Of soft tissue of the neck History of breast surgery Puncture aspiration of cyst History of carpal tunnel release RIGHT History of colonoscopy History of colposcopy with cervical biopsy with endocervical curettage History of glossectomy with unilateral radical neck dissection History of hip surgery R/L REVISION Left MAURO revision: 11/09/18: SABx1 at L3-L4 at [facility] History of spinal surgery 10/02/[address] [facility] [address]. Sanford History of total hip arthroplasty R/L History of total knee replacement R/L History of tubal ligation Hx of hand surgery RIGHT Hx of knee surgery most recent 02/28/2020 [facility] Right TKA revision, I&D, antibiotic spacer: 12/29/19: SAB + PNB at [facility] S/P revision of total knee 12/29/19 Dr. Ihsan Vela- Right total knee revision, Incision and drainage with antibiotic cement spacer Family History Mother Breast cancer Colorectal cancer Cancer Gastric cancer Aunt Colorectal cancer Other Family history non-contributory Denies family history of Ovarian cancer Prostate cancer Myocardial infarction Social History Smoking Status: Never smoker Second Hand Exposure: No; Hx Alcohol Use: No Hx Substance Use: No Preferred Language: Polish Communication Ability: Effective Visual Impairment: Limited 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: Normal Echocardiography Radiology Technologist Required: No Beliefs That Will Affect Care: None marital status: Current Living Situation: Spouse current occupational status: retired Feels Safe at Home: Yes Childhood Exposure to Second-Hand Smoke: Yes caffeine: Yes Dental Care, Regularly: Yes Physical Activity Frequency: Other Physical Activity Frequency Comment: Limited by a physical condition Seatbelt Use: always Sunscreen Use: Yes Assistive Devices: Walker Physical Exam Physical Exam: Gen.: No acute distress. Alert and oriented. HEENT: Anicteric sclera. Neck: No JVD. No bruits. Normal carotid upstrokes bilaterally. Cardiac: PMI was nondisplaced. No ventricular heave. Irregularly irregular and tachycardic. Normal S1-S2. No murmurs, rubs, or gallops. Pulmonary: Clear to auscultation bilaterally without wheezes, rales, or rhonchi. Abdomen: Soft, nontender, nondistended, with normoactive bowel sounds. No bruits noted. Extremities: 2+ radial pulses bilaterally. 2+ left dorsalis pedis pulse. Right lower extremity is cooler to touch and dusky. No palpable distal right lower extremity pulse. No significant pitting edema. No cyanosis. Psychiatric: Affect appears appropriate. Results & Data ([facility]) Vital Signs (Past 12 Hours) Vital Signs Temp Pulse Resp BP Pulse Ox 11/12/21 14:34 110 H 134/65 11/12/21 14:01 105 H 21 134/65 85 L 11/12/21 14:00 100 H 20 67 L 11/12/21 13:00 86 17 147/79 H 95 11/12/21 12:00 87 19 133/77 94 11/12/21 11:00 86 20 131/85 96 11/12/21 10:00 86 20 11/12/21 09:00 85 19 119/83 11/12/21 08:14 36.8 C 11/12/21 08:01 111 H 18 153/71 H 95 11/12/21 08:00 112 H 19 96 11/12/21 07:02 129 H 23 122/90 80 L 11/12/21 07:00 141 H 20 73 L 11/12/21 06:00 126 H 18 149/78 H 96 Laboratory Results Laboratory Results - last 24 hr 11/11/21 11/12/21 11/12/21 22:26 04:57 05:02 WBC 10.20 RBC 3.20 L Hgb 9.2 L Hct 28.9 L MCV 90.3 MCH 28.8 MCHC 31.8 L RDW Std Deviation 49.6 H RDW Coeff of Jarvis 15.0 H Plt Count 211 MPV 10.4 Immature Gran % (Auto) 0.4 Neut % (Auto) 78.0 Lymph % (Auto) 7.3 Isabella % (Auto) 14.0 Eos % (Auto) 0.2 Baso % (Auto) 0.1 Neut # (Auto) 7.96 H Lymph # (Auto) 0.74 L Isabella # (Auto) 1.43 H Eos # (Auto) 0.02 Baso # (Auto) 0.01 Immature Gran # (Auto) 0.04 H APTT 42.9 H 32.4 H PTT Ratio 1.6 1.2 Sodium Potassium Chloride Carbon Dioxide Anion Gap BUN Creatinine Est Cr Clr Drug Dosing Est GFR ( Amer) Est GFR (Non-Af Amer) BUN/Creatinine Ratio Glucose Calcium Magnesium 11/12/21 05:02 WBC RBC Hgb Hct MCV MCH MCHC RDW Std Deviation RDW Coeff of Jarvis Plt Count MPV Immature Gran % (Auto) Neut % (Auto) Lymph % (Auto) Isabella % (Auto) Eos % (Auto) Baso % (Auto) Neut # (Auto) Lymph # (Auto) Isabella # (Auto) Eos # (Auto) Baso # (Auto) Immature Gran # (Auto) APTT PTT Ratio Sodium 136 Potassium 4.2 Chloride 106 Carbon Dioxide 22 Anion Gap 8 BUN 21 Creatinine 0.87 Est Cr Clr Drug Dosing 49.7 Est GFR ( Amer) 76.6 Est GFR (Non-Af Amer) 66.1 BUN/Creatinine Ratio 24.1 H Glucose 101 H Calcium 8.1 L Magnesium 2.6 H Diagnostic Findings Telemetry personally reviewed: Today predominantly sinus rhythm with paroxysmal AFib with RVR. No significant pauses noted. Echo 11/11/2021: Low-normal LV systolic function. EF 50-55%. No regional wall motion abnormalities. Mild MR. Mild to moderate TR. Normal RVSP. AFib with RVR. Vascular operative note report reviewed. ECG personally reviewed from 11/08/2021: AFib with RVR 163 beats per minute PVCs versus aberrantly conducted complexes. Nonspecific ST/T-wave abnormality. Medications Administered Current Inpatient Medications Acetaminophen (Acetaminophen 325 Mg Tab) 650 mg PO Q4H PRN PRN Reason: Pain Stop: 12/09/21 13:16 Calcitriol (Calcitriol 0.25 Mcg Capsule) 0.5 mcg PO MoFr ANGELO Stop: 12/08/21 08:59 Last Admin: 11/11/21 07:38 Dose: 0.5 mcg Documented by: Docusate Sodium (Docusate Sodium 100 Mg Cap) 100 mg PO BID PRN PRN Reason: Constipation Stop: 12/07/21 23:45 Gabapentin (Gabapentin 300 Mg Cap) 300 mg PO TID [facility] Stop: 12/08/21 08:59 Last Admin: 11/12/21 14:33 Dose: 300 mg Documented by: Hydromorphone HCl (Hydromorphone Subway Train Operator 30 Mg/30 Ml) 30 mg IV PRN PRN; Protocol PRN Reason: PPAP COORDINATOR Pain Titration Stop: 11/22/21 18:53 Last Admin: 11/08/21 23:49 Dose: 30 mg Documented by: Heparin Sodium/Dextrose (Heparin Sodium/Dextrose) 25,000 units in 500 mls @ 21 mls/hr IV .[id number] [facility]; Protocol Stop: 12/08/21 19:14 Last Admin: 11/12/21 07:23 Dose: Not Given Documented by: Sodium Chloride (Nss 1000ml) 1,000 mls @ 15 mls/hr IV .Q24H [facility] Stop: 11/22/21 18:55 Last Admin: 11/11/21 19:35 Dose: 15 mls/hr Documented by: Hydrocortisone Sodium (Succinate 25 mg/ Syringe) 0.5 mls @ 4 mls/min IV BID [facility] Stop: 12/11/21 20:59 Last Admin: 11/12/21 08:02 Dose: 4 mls/min Documented by: Amiodarone HCl/Dextrose (Nexterone / D5w) 360 mg in 200 mls @ 33.333 mls/hr IV ONE ONE Stop: 11/12/21 23:34 Amiodarone HCl/Dextrose (Nexterone / D5w) 360 mg in 200 mls @ 16.667 mls/hr IV .Q12H [facility] Stop: 12/12/21 23:29 Magnesium Oxide (Magnesium Oxide 400 Mg Tab) 400 mg PO QPM [facility] Stop: 12/09/21 20:59 Last Admin: 11/11/21 19:33 Dose: 400 mg Documented by: Metoprolol Tartrate (Metoprolol Tartrate 25 Mg Tab) 75 mg PO BID [facility] Stop: 12/12/21 20:59 Miscellaneous (Heparin Drip Stop Order) 1 ea N/A ONE ONE Stop: 11/13/21 08:01 Naloxone HCl (Naloxone Hcl 0.4 Mg/1 Ml Vial/Carp) 0.1 mg IV Q5M PRN; Protocol PRN Reason: Oversedation/Resp Depression Stop: 11/22/21 18:53 Ondansetron HCl (Ondansetron Inj 2 Mg/Ml 2 Ml Vial) 4 mg IV Q6H PRN PRN Reason: Nausea Stop: 12/07/21 23:45 Oxybutynin Chloride (Oxybutynin Chloride 5 Mg Tab) 5 mg PO BID ANGELO Stop: 12/08/21 08:59 Last Admin: 11/12/21 08:03 Dose: 5 mg Documented by: Pantoprazole Sodium (Pantoprazole 40 Mg Tab) 40 mg PO DAILY ANGELO Stop: 12/08/21 08:59 Last Admin: 11/12/21 08:02 Dose: 40 mg Documented by: Prednisone (Prednisone 5 Mg Tab) 5 mg PO QAM ANGELO Stop: 12/08/21 08:59 Last Admin: 11/12/21 08:03 Dose: 5 mg Documented by: Prednisone (Prednisone 1 Mg Tab) 1 mg PO QPM ANGELO Stop: 12/08/21 20:59 Last Admin: 11/11/21 19:33 Dose: 1 mg Documented by: Sennosides (Senna 8.6 Mg Tab) 8.6 mg PO DAILY PRN PRN Reason: Constipation Stop: 12/07/21 23:45 PG Care Time/CCT Total # of Minutes Spent Total Time Spent with Patient: Total time spent is greater than 50% in coordination of care (as documented) at patient's floor/unit and/or counseling patient: Coding Level of Care Code 72431 Initial Inpt Care Lvl 2 Diagnoses PAF (paroxysmal atrial fibrillation) I48.0
[2021-11-12] MEDS ORDERED: AMIODARONE / D5W 360 MG/200 ML BAG IV ONE (17:35)
[2021-11-12 19:15] LABS: Partial Thromboplastin Time 28.3 Seconds (21.0-31.0)
[2021-11-12] MEDS: predniSONE 1 MG TAB PO SCH (20:12)
[2021-11-12] MEDS: MAGNESIUM OXIDE 400 MG TAB PO SCH (20:13)
[2021-11-12] MEDS: METOPROLOL TARTRATE 25 MG TAB PO SCH (20:13)
--- NOTE | 2021-11-12 20:46 | Hospitalist Progress Note ---
Date of Service November 12, 2021 Assessment & Plan (1) Occlusion of stent of peripheral artery: Plan: 71yo female with history of peripheral arterial disease s/p RLE arteriogram with stenting of right SFA performed 11/06/21 returning with RLE thigh and calf pain, pain in the foot with discoloration and pallor. Found to have occluded superficial femoral arterial stent on Doppler as well as posterior tibial arterial occlusion. Admitted on heparin gtt and then taken to OR with Vascular on 11/08--> no occlusion of SFA stent found but had multiple attempts by Vascular intraoperatively to bypass the tibial artery but was not possible due to calcified arteries. 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 Heart rate appears to be better controlled, but ortho surgeon deems procedure no emergent. Will discuss with Dr. Kelly or Gen surgery. (2) PAF (paroxysmal atrial fibrillation): Plan: Rapid atrial fibrillation that came on intraoperatively, rates as high as 160s Placed on dilt gtt and transferred to ICU post-op from Vascular BPs stable -Patient returned to RVR -placed on amiodarone drip, continue metoprolol 75 BID. -holding home Eliquis and on heparin gtt -hopeful that with resolution of fever and improvement of pain, could have improvement in rates -continue tele monitoring (3) Sepsis: Plan: with fever, tachycardia, leukocytosis, and right foot cellulitis as source treating with antibiotics follow BCxs-NGTD holding home leflunomide, but remains on Plaquenil-will now HOLD Plaquenil as well until after amputation and wounds healing (4) Ischemic leg pain: Plan: not amenable to vascular intervention unfortunately with mild resulting rhabdomyolysis due to poor perfusion of muscle tissue plan for likely AKA vs BKA pain control with dilaudid FRUIT FARMWORKER pump antibiotics for fevers and cellulitis continues on heparin gtt (5) Cellulitis: Plan: Right foot ulceration with cellulitis With fevers continuing, erythema of leg, pallor and cyanosis of foot -follow blood cultures -continue abx but change to ceftriaxone and Vanco (was on Dapto) as CPK mildly elevated tylenol as needed for fever holding home immune suppressing drugs (6) Acute respiratory failure with hypoxia: Plan: has been on 4LNC since admission, now weaned down to 2LNC denies SOB, no cough or CP no chronic lung issues never had CXR done--> check CXR now could be pulm edema from rapid afib-may need diuresis (7) Peripheral arterial disease: Plan: With arterial occlusion s/p stenting -Heparin gtt -?Statin use on discharge (8) Rheumatoid arthritis: Plan: Chronic. Stable -hold Plaquenil and leflunomide -Continue Prednisone 5mg po qAM, 1mg po qPM. Low threshold for stress dosed steroids if patient becomes hypotensive -will need stress dosed steroids for surgery (9) Hypertension: Plan: Blood pressure stable -Pain control -Continue Metoprolol -Continue to monitor (10) GERD (gastroesophageal reflux disease): Plan: Chronic. On Omeprazole BID at home -Protonix 40mg po daily (11) Overactive bladder: Plan: Chronic. Controlled on medication -Continue Oxybutynin -PureWick catheter ordered (12) Steroid dependence: Plan: continue prednisone watch for need for stress dose steroids-will definitely need them for the surgery Plan: Ppx - Heparin gtt Code - Full Dispo - continued stay in ICU, but could likely downgrade to PCU-will defer to Ground Crewman Aircraft Support Discussed care with at bedside Admission and Anticipated Discharge Date Admission Date: November 07, 2021 Subjective Patient reports no new symptoms. Review of Systems Review of Systems: All systems reviewed & are unremarkable except as noted in HPI & below Physical Exam Physical Exam: Constitutional: WD/WN, vitals as above Eyes: + anicteric sclerae Neck: trachea midline, no thyromegaly Respiratory: normal respiratory effort, lungs clear to auscultation Cardiovascular: Rate/Rhythm: + tachycardic and + irregularly irregular Heart Sounds: no murmur Vessels: + dorsalis pedis pulses abnormal (not palpable) Extremities: + edema (right foot and ankle with edema 1+) Chest (Breasts): Chest: normal inspection of chest Gastrointestinal (Abdomen): normal bowel sounds, soft, nontender, no hepatosplenomegaly Musculoskeletal: Extremities: no cyanosis and no clubbing Skin: + lesion (blister open wounds on 3rd-4th toes), + ulcer (pallor of toes,purplish discolorationof foot) and + erythema (of right foot and ankle) right medial distal leg with dressing in place over surgical wound c/d/i Neurologic: moves all extremities and awake; no focal motor deficits Psychiatric: A+Ox3, euthymic affect Lymphatic: no lymphedema Results & Data Results & Data ([facility]) Vital Signs (Past 12 Hours) Vital Signs Pulse Resp BP Pulse Ox 11/12/21 19:00 20 138/72 94 11/12/21 18:01 120 H 26 H 143/70 H 11/12/21 18:00 114 H 27 H 11/12/21 17:01 114 H 25 H 164/70 H 11/12/21 17:00 123 H 15 11/12/21 16:00 88 18 133/85 97 11/12/21 15:01 93 H 20 88 L 11/12/21 15:00 89 21 93 11/12/21 14:34 110 H 134/65 11/12/21 14:01 105 H 21 134/65 85 L 11/12/21 14:00 100 H 20 67 L 11/12/21 13:00 86 17 147/79 H 95 11/12/21 12:00 87 19 133/77 94 11/12/21 11:00 86 20 131/85 96 11/12/21 10:00 86 20 11/12/21 09:00 85 19 119/83 PG Care Time/CCT Total # of Minutes Spent Total Time Spent with Patient: Total time spent is greater than 50% in coordination of care (as documented) at patient's floor/unit and/or counseling patient: Coding Level of Care Code 39281 Subseq Hosp Care Lvl 2 Diagnoses Occlusion of stent of peripheral artery T82.599A PAF (paroxysmal atrial fibrillation) I48.0 Sepsis A41.9 Ischemic leg pain M79.606; I99.8 Cellulitis L03.90 Acute respiratory failure with hypoxia J96.01 Peripheral arterial disease I73.9 Rheumatoid arthritis M06.9 Hypertension I10 GERD (gastroesophageal reflux disease) K21.9 Overactive bladder N32.81 Steroid dependence F19.20
[2021-11-13] MEDS: AMIODARONE / D5W 360 MG/200 ML BAG IV SCH ×3 (00:20→22:48)
[2021-11-13 02:53] LABS: Partial Thromboplastin Ratio 1.2; Partial Thromboplastin Time 32.5 Seconds (21.0-31.0)
[2021-11-13] MEDS ORDERED: HEPARIN IV BOLUS 2,000 UNITS in SYRINGE 0 ML IV ONE (03:15)
[2021-11-13 05:23] LABS: Basophils # (auto) 0.02 K/uL (0-0.2); Basophils % (auto) 0.2 %; Eosinophils # (auto) 0.03 K/uL (0-0.5); Eosinophils % (auto) 0.3 %; Hematocrit (blood only) 29.7 % (37-47); Hemoglobin 9.4 g/dL (12.0-16.0); Immature Granulocytes # (auto) 0.06 K/uL (0.00-0.02); Immature Granulocytes % (auto) 0.6 %; Lymphocytes # (auto) 0.95 K/uL (1.2-3.4); Lymphocytes % (auto) 9.3 %; Mean Corpuscular Hemoglobin 28.6 pg (25-34); Mean Corpuscular Hgb Conc 31.6 g/dL (32-36); Mean Corpuscular Volume 90.3 fL (80-100); Mean Platelet Volume 10.8 fL (7.4-10.4); Monocytes # (auto) 0.88 K/uL (0.11-0.59); Monocytes % (auto) 8.6 %; Neutrophils # (auto) 8.33 K/uL (1.4-6.5); Platelet Count 248 K/uL (130-400); RDW Coefficient of Variation 15.1 % (11.5-14.5); RDW Standard Deviation 50.1 fL (36.4-46.3); Red Blood Count 3.29 M/uL (4.2-5.4); White Blood Count 10.27 K/uL (4.8-10.8)
[2021-11-13 05:49] LABS: BUN Creatinine Ratio 25.3 (10-20); Creatinine Clr Calc Pharmacy 49.7 ml/min; Est GFR (African American) 76.6 ml/min; Est GFR (Non-African American) 66.1 ml/min; Magnesium 2.3 mg/dl (1.7-2.4); Potassium 4.3 mmol/L (3.5-5.1)
[2021-11-13] MEDS: HYDROCORTISONE SOD 25 MG in SYRINGE 0 ML IV SCH ×2 (08:49→20:08)
[2021-11-13] MEDS: OXYBUTYNIN CHLORIDE 5 MG TAB PO SCH ×2 (08:49→20:08)
[2021-11-13] MEDS: PANTOprazole 40 MG TAB PO SCH (08:49)
[2021-11-13] MEDS: GABAPENTIN 300 MG CAP PO SCH ×3 (08:50→20:08)
[2021-11-13] MEDS: predniSONE 5 MG TAB PO SCH (08:50)
[2021-11-13] MEDS: METOPROLOL TARTRATE 25 MG TAB PO SCH ×2 (08:50→20:08)
[2021-11-13 09:39] LABS: Partial Thromboplastin Ratio 1.6
[2021-11-13 09:44] LABS: Partial Thromboplastin Time 45.1 Seconds (21.0-31.0)
--- NOTE | 2021-11-13 09:54 | Surgery Consultation ---
Date of Consultation November 13, 2021 Assessment & Plan (1) Ischemic leg pain: Patient is unfortunately not a candidate for revascularization as she had been worked up the only option is to proceed with an amputation and given that she has no vessels below the knee there are any significance and with the hardware that she has around the recommended for her to go an AKA amputation and we will proceed accordingly tomorrow We will plan to discuss the situation with her also sometime today not available my physician licensed physical therapy assistant can talk for him per patient request She is scheduled for a right above-knee amputation tomorrow Risk and complication has been explained to her including bleeding infection failure to heal all questions were answered Will sign permit tomorrow The Eliquis has been held Presently she is on heparin that will be held prior to surgery At this time all questions were answered History of Present Illness Attending Physician: Cristhian Graham History of Present Illness This very pleasant 71-year-old female quite anxious who has had multiple orthopedic procedures on her right knee dating back with her knee replacement plus revision was seen by Dr. Kelly in his office on 11/04/2021 the rest pain and plans had been made to work her up but apparently on 11/06/2021 he went to the emergency room with significant pain and was admitted to the hospital on 11/08/2021 patient was taken for vascular intervention but nothing was successful to alleviate her symptoms there were no named vessels obvious below the knee and the patient unfortunately would come to an amputation The patient had been scheduled for an amputation by Dr. Weiner but she developed atrial fibrillation and amputation was postponed unfortunately Dr. Patel was going out of town therefore we were asked to see the patient to proceed with possible amputation Allergies Allergy/AdvReac Type Severity Reaction Status Date / Time dalbavancin Allergy Severe hypotension, Verified 11/07/21 20:59 flushing, tachypnea Home Medications Medication Instructions Recorded Confirmed Type lactobacillus combination no.4 3 3,000 mmu cells PO QAM 03/30/18 11/07/21 History billion cell capsule (Probiotic) prednisone 1 mg tablet 1 mg PO QPM 03/30/18 11/07/21 History prednisone 5 mg tablet 5 mg PO QAM 03/30/18 11/07/21 History cranberry 500 mg capsule 500 mg PO QPM 09/29/18 11/07/21 History omeprazole 20 mg capsule,delayed 20 mg PO BID 09/29/18 11/07/21 History release vit A 7,160 unit-vit C 113 mg-vit 1 tab PO QAM 10/08/18 11/07/21 History E-zinc gy-ipyvsh-yquhqw 1 mg tablet ([facility]) leg brace (Knee Stabilizer) #1 ea 02/10/19 10/02/21 Rx calcitriol 0.5 mcg capsule 0.5 mcg PO 2XWK 02/21/20 11/07/21 History (Rocaltrol) leflunomide 20 mg tablet (Arava) 20 mg PO QAM 03/27/20 11/07/21 History calcium carbonate 600 mg-vitamin 1 cap PO BID 07/16/20 11/07/21 History D3 5 mcg (200 unit) capsule (Calcium 600 + D(3)) gabapentin 300 mg capsule 300 mg PO TID 07/16/20 11/07/21 History metoprolol tartrate 50 mg tablet 50 mg PO BID #180 tab 12/27/20 11/07/21 Rx sennosides 8.6 mg tablet (senna) 8.6 mg PO DAILY PRN 02/28/21 11/07/21 History hydrocodone 10 mg-acetaminophen 1 tab PO Q4 PRN 03/07/21 11/07/21 History 325 mg tablet meclizine 25 mg tablet 25 mg PO BID PRN #20 tab 07/26/21 11/07/21 Rx apixaban 5 mg tablet (Eliquis) 5 mg PO BID #180 tab 08/28/21 11/07/21 Rx oxybutynin chloride 5 mg tablet 5 mg PO BID #180 tab 08/28/21 11/07/21 Rx ferrous sulfate 325 mg (65 mg 325 mg PO QAM 09/26/21 11/07/21 History iron) tablet hydroxychloroquine 200 mg tablet 200 mg PO DAILY tab 10/02/21 11/07/21 History (Plaquenil) cephalexin 500 mg capsule 500 mg PO TID 11/07/21 11/07/21 History Patient History Medical History Chronic back pain DDD (degenerative disc disease) GERD (gastroesophageal reflux disease) controlled History of COVID-19 hospitalized 07/16/20 [facility]. hypoxia, fever, cough, chills, loss of taste/smell. pt reports taste/smell still not fully back to normal. History of Hodgkin's lymphoma 2003/under surveillance by PCP/Dr. Thibodeaux- S/p chemo in 2003- none since History of oral cancer s/p tongue excision left side (no chemo/no XRT 2013) No issues since Hypertension Ischemic leg pain Overactive bladder PAF (paroxysmal atrial fibrillation) hx - on Eliquis Paroxysmal SVT (supraventricular tachycardia) hx (follows with Dr. Vance) Peripheral arterial disease PONV (postoperative nausea and vomiting) RA (rheumatoid arthritis) on chronic steroid Skin benign neoplasm Vertigo No current issues Surgical History H/O foot surgery TOES X MULTIPLE H/O parathyroidectomy History of biopsy Of soft tissue of the neck History of breast surgery Puncture aspiration of cyst History of carpal tunnel release RIGHT History of colonoscopy History of colposcopy with cervical biopsy with endocervical curettage History of glossectomy with unilateral radical neck dissection History of hip surgery R/L REVISION Left MAURO revision: 11/09/18: SABx1 at L3-L4 at [facility] History of spinal surgery 10/02/[address] [facility] [address]. Sanford History of total hip arthroplasty R/L History of total knee replacement R/L History of tubal ligation Hx of hand surgery RIGHT Hx of knee surgery most recent 02/28/2020 [facility] Right TKA revision, I&D, antibiotic spacer: 12/29/19: SAB + PNB at [facility] S/P revision of total knee 12/29/19 Dr. 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 Required: No Beliefs That Will Affect Care: None marital status: Current Living Situation: Spouse current occupational status: retired Feels Safe at Home: Yes Childhood Exposure to Second-Hand Smoke: Yes caffeine: Yes Dental Care, Regularly: Yes Physical Activity Frequency: Other Physical Activity Frequency Comment: Limited by a physical condition Seatbelt Use: always Sunscreen Use: Yes Assistive Devices: Walker Review of Systems Review of Systems: Patient has a past history of PAF SVT Hodgkin's lymphoma hypertension degenerative disc disease lumbar stenosis neurogenic claudication had been treated for pneumonia due to COVID-19 left ventricular hypertrophy Physical Exam Physical Exam: I saw the patient in intensive care this morning where she is quite anxious and distraught about the upcoming surgery The extremity was visualized which showed ischemic right foot paresthesia paralysis no palpable vessels appreciated in the popliteal area Incision from the previous knee replacement seen The x-ray of the right knee was visualized where the hardware extension was noted Results & Data ([facility]) Vital Signs (Past 12 Hours) Vital Signs Temp Pulse Pulse Resp BP BP Pulse Ox 11/13/21 08:40 36.8 C 11/13/21 08:00 147 H 22 128/104 H 97 11/13/21 03:56 36.4 C L 101 H 18 129/91 94 11/13/21 00:00 36.4 C L 99 H 19 160/71 H 93 11/12/21 23:07 105 H 11/12/21 22:00 36.6 C 106 H 23 146/87 H 95 PG Care Time/CCT Total # of Minutes Spent Total Time Spent with Patient: Total time spent is greater than 50% in coordination of care (as documented) at patient's floor/unit and/or counseling patient: Coding Level of Care Code 98984 Inpt Consult Level 4 Diagnoses Ischemic leg pain M79.606; I99.8
[2021-11-13] MEDS ORDERED: VANCOMYCIN HCL 1,250 MG in SODIUM CHLORIDE 0.9% 250 ML IV ONE (10:30)
[2021-11-13] MEDS ORDERED: cefTRIAXone SODIUM 2,000 MG in DEXTROSE 5% 50 ML IV ONE (10:30)
--- NOTE | 2021-11-13 16:43 | Cardiology Progress Note ---
Date of Service November 13, 2021 Assessment & Plan (1) PAF (paroxysmal atrial fibrillation): Plan: -would continue intravenous amiodarone until after her surgical procedure. -agree with intravenous heparin. -agree with metoprolol tartrate 75 mg b.i.d. -could initiate intravenous diltiazem if necessary. -could use intravenous digoxin if necessary. -acceptable cardiac risk for surgery. (2) Hypertension: Plan: -adequate control currently. Admission and Anticipated Discharge Date Admission Date: November 07, 2021 Subjective The patient is resting comfortably in bed without complaints of chest pain, dyspnea, or palpitations. Physical Exam Physical Exam: In general this is a well-developed well-nourished white female in no acute distress. HEENT exam is negative. Neck is supple with full carotid upstrokes. There are no carotid bruits. No JVD. There is no thyromegaly. Cardiovascular exam reveals irregular irregular rhythm with distant heart sounds. No obvious murmurs. Lungs are clear without rales, rhonchi, or wheezes. Abdomen is soft and nontender without bruits. Extremities reveal intact radial artery pulses bilaterally. There is mottling and necrotic tissue on the right foot. Results & Data ([facility]) Vital Signs (Past 12 Hours) Vital Signs Temp Pulse Resp BP Pulse Ox 11/13/21 08:40 36.8 C 11/13/21 08:00 147 H 22 128/104 H 97 Diagnostic Findings media monitor notes atrial fibrillation with a rapid ventricular response. PG Care Time/CCT Total # of Minutes Spent Total Time Spent with Patient: Total time spent is greater than 50% in coordination of care (as documented) at patient's floor/unit and/or counseling patient: Coding Level of Care Code 77410 Subseq Hosp Care Lvl 3 Diagnoses PAF (paroxysmal atrial fibrillation) I48.0 Hypertension I10
[2021-11-13 17:50] LABS: Partial Thromboplastin Ratio 1.7
[2021-11-13 17:51] LABS: Partial Thromboplastin Time 46.2 Seconds (21.0-31.0)
[2021-11-13] MEDS: HEPARIN SODIUM/DEXTROSE 25,000 UNITS/500 ML BAG IV SCH (18:20)
[2021-11-13] MEDS ORDERED: STAT IV Infusion **Titration per Protocol STA (19:18)
--- NOTE | 2021-11-13 19:35 | Hospitalist Progress Note ---
Date of Service November 13, 2021 Assessment & Plan (1) Occlusion of stent of peripheral artery: Plan: 71yo female with history of peripheral arterial disease s/p RLE arteriogram with stenting of right SFA performed 11/06/21 returning with RLE thigh and calf pain, pain in the foot with discoloration and pallor. Found to have occluded superficial femoral arterial stent on Doppler as well as posterior tibial arterial occlusion. Admitted on heparin gtt and then taken to OR with Vascular on 11/08--> no occlusion of SFA stent found but had multiple attempts by Vascular intraoperatively to bypass the tibial artery but was not possible due to calcified arteries. 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 Patient is on amiodarone drip/diltiazem drip/ metoprolol orally Cardio feels patient is stable for procedure as her A FIB RVR is chronic BPs stable -Patient returned to RVR -holding home Eliquis and on heparin gtt -hopeful that with resolution of fever and improvement of pain, could have improvement in rates -continue tele monitoring (3) Sepsis: Plan: with fever, tachycardia, leukocytosis, and right foot cellulitis as source treating with antibiotics follow BCxs-NGTD holding home leflunomide, but remains on Plaquenil-will now HOLD Plaquenil as well until after amputation and wounds healing (4) Ischemic leg pain: Plan: not amenable to vascular intervention unfortunately with mild resulting rhabdomyolysis due to poor perfusion of muscle tissue plan for likely AKA vs BKA pain control with dilaudid MARKETING INTELLIGENCE MANAGER pump antibiotics for fevers and cellulitis continues on heparin gtt (5) Cellulitis: Plan: Right foot ulceration with cellulitis With fevers continuing, erythema of leg, pallor and cyanosis of foot -follow blood cultures -continue abx but change to ceftriaxone and Vanco (was on Dapto) as CPK mildly elevated tylenol as needed for fever holding home immune suppressing drugs (6) Acute respiratory failure with hypoxia: Plan: has been on 4LNC since admission, now weaned down to 2LNC denies SOB, no cough or CP no chronic lung issues never had CXR done--> check CXR now could be pulm edema from rapid afib-may need diuresis (7) Peripheral arterial disease: Plan: With arterial occlusion s/p stenting -Heparin gtt -?Statin use on discharge (8) Rheumatoid arthritis: Plan: Chronic. Stable -hold Plaquenil and leflunomide -Continue Prednisone 5mg po qAM, 1mg po qPM. Low threshold for stress dosed steroids if patient becomes hypotensive -will need stress dosed steroids for surgery (9) Hypertension: Plan: Blood pressure stable -Pain control -Continue Metoprolol -Continue to monitor (10) GERD (gastroesophageal reflux disease): Plan: Chronic. On Omeprazole BID at home -Protonix 40mg po daily (11) Overactive bladder: Plan: Chronic. Controlled on medication -remain on Oxybutynin -PureWick catheter ordered (12) Steroid dependence: Plan: continue prednisone may needr stress dose steroids-will definitely need them for the surgery Plan: Ppx - Heparin gtt Code - Full Dispo - continued stay in ICU, but could likely downgrade to PCU-will defer to Postal Service Clerk Discussed care with at bedside Admission and Anticipated Discharge Date Admission Date: November 07, 2021 Subjective 71 yo female reports no new symptoms. Frsutrated that procedure has been postponed. Review of Systems Review of Systems: All systems reviewed & are unremarkable except as noted in HPI & below Physical Exam Physical Exam: Constitutional: WD/WN, vitals as above Eyes: + anicteric sclerae Neck: trachea midline, no thyromegaly Respiratory: normal respiratory effort, lungs clear to auscultation Cardiovascular: Rate/Rhythm: + tachycardic and + irregularly irregular Heart Sounds: no murmur Vessels: + dorsalis pedis pulses abnormal (not palpable) Extremities: + edema (right foot and ankle with edema 1+) Chest (Breasts): Chest: normal inspection of chest Gastrointestinal (Abdomen): normal bowel sounds, soft, nontender, no hepatosplenomegaly Musculoskeletal: Extremities: no cyanosis and no clubbing Skin: + lesion (blister open wounds on 3rd-4th toes), + ulcer (pallor of toes,purplish discolorationof foot) and + erythema (of right foot and ankle) right medial distal leg with dressing in place over surgical wound c/d/i Neurologic: moves all extremities and awake; no focal motor deficits Psychiatric: A+Ox3, euthymic affect Lymphatic: no lymphedema Results & Data Results & Data ([facility]) Vital Signs (Past 12 Hours) Vital Signs Temp Pulse Resp BP Pulse Ox 11/13/21 19:00 145 H 25 H 95 11/13/21 18:12 146 H 25 H 139/101 H 96 11/13/21 16:00 36.7 C 147 H 11/13/21 08:40 36.8 C 11/13/21 08:00 147 H 22 128/104 H 97 PG Care Time/CCT Total # of Minutes Spent Total Time Spent with Patient: Total time spent is greater than 50% in coordination of care (as documented) at patient's floor/unit and/or counseling patient: Coding Level of Care Code 06551 Subseq Hosp Care Lvl 3 Diagnoses Occlusion of stent of peripheral artery T82.599A PAF (paroxysmal atrial fibrillation) I48.0 Sepsis A41.9 Ischemic leg pain M79.606; I99.8 Cellulitis L03.90 Acute respiratory failure with hypoxia J96.01 Peripheral arterial disease I73.9 Rheumatoid arthritis M06.9 Hypertension I10 GERD (gastroesophageal reflux disease) K21.9 Overactive bladder N32.81 Steroid dependence F19.20
[2021-11-13] MEDS: dilTIAZem HCL 125 MG in DEXTROSE 5% 100 ML IV SCH (19:44)
[2021-11-13] MEDS: predniSONE 1 MG TAB PO SCH (20:07)
[2021-11-13] MEDS: MAGNESIUM OXIDE 400 MG TAB PO SCH (20:08)
[2021-11-14] MEDS: dilTIAZem HCL 125 MG in DEXTROSE 5% 100 ML IV SCH (03:54)
[2021-11-14 05:25] LABS: Basophils # (auto) 0.03 K/uL (0-0.2); Basophils % (auto) 0.3 %; Eosinophils # (auto) 0.05 K/uL (0-0.5); Eosinophils % (auto) 0.5 %; Hematocrit (blood only) 30.1 % (37-47); Hemoglobin 9.5 g/dL (12.0-16.0); Immature Granulocytes # (auto) 0.07 K/uL (0.00-0.02); Immature Granulocytes % (auto) 0.7 %; Lymphocytes # (auto) 1.07 K/uL (1.2-3.4); Lymphocytes % (auto) 10.1 %; Mean Corpuscular Hemoglobin 28.4 pg (25-34); Mean Corpuscular Hgb Conc 31.6 g/dL (32-36); Mean Corpuscular Volume 90.1 fL (80-100); Mean Platelet Volume 11.8 fL (7.4-10.4); Monocytes # (auto) 0.98 K/uL (0.11-0.59); Monocytes % (auto) 9.3 %; Neutrophils # (auto) 8.37 K/uL (1.4-6.5); Neutrophils % (auto) 79.1 %; Platelet Count 269 K/uL (130-400); RDW Coefficient of Variation 15.3 % (11.5-14.5); RDW Standard Deviation 50.1 fL (36.4-46.3); Red Blood Count 3.34 M/uL (4.2-5.4); White Blood Count 10.57 K/uL (4.8-10.8)
[2021-11-14 05:41] LABS: Partial Thromboplastin Ratio 1.2; Partial Thromboplastin Time 32.9 Seconds (21.0-31.0)
[2021-11-14 06:15] LABS: Albumin Globulin Ratio 1.1 (0.9-2); Albumin Level 2.9 gm/dl (3.4-5.0); BUN Creatinine Ratio 25.6 (10-20); Bilirubin,Total 0.4 mg/dl (0.2-1.0); Calcium 8.1 mg/dl (8.5-10.1); Creatinine Clr Calc Pharmacy 53.5 ml/min; Est GFR (African American) 82.3 ml/min; Globulin 2.6 gm/dl (2.5-4.0); Magnesium 2.2 mg/dl (1.7-2.4); Potassium 4.4 mmol/L (3.5-5.1); Total Protein 5.5 gm/dl (6.0-8.3)
--- NOTE | 2021-11-14 06:15 | Electrocardiogram Report ---
Test Reason : Blood Pressure : / mmHG Vent. Rate : 114 BPM Atrial Rate : 114 BPM P-R Int : 000 ms QRS Dur : 088 ms QT Int : 270 ms P-R-T Axes : 000 028 156 degrees QTc Int : 372 ms Atrial fibrillation with rapid ventricular response Nonspecific ST and T wave abnormality Abnormal ECG When compared with ECG of 08-NOV-2021 10:38, Premature ventricular complexes are no longer Present Confirmed by Yayo Brewer ([id number]) on 11/14/2021 6:14:54 AM Referred By: REFERRED SELF Confirmed By:Yayo Brewer
[2021-11-14] MEDS: HEPARIN SODIUM/DEXTROSE 25,000 UNITS/500 ML BAG IV SCH (07:25)
[2021-11-14] MEDS: OXYBUTYNIN CHLORIDE 5 MG TAB PO SCH ×2 (07:30→21:38)
[2021-11-14] MEDS: predniSONE 5 MG TAB PO SCH (07:30)
[2021-11-14] MEDS: GABAPENTIN 300 MG CAP PO SCH ×3 (07:31→21:37)
[2021-11-14] MEDS: PANTOprazole 40 MG TAB PO SCH (07:31)
[2021-11-14] MEDS: METOPROLOL TARTRATE 25 MG TAB PO SCH ×2 (07:31→21:39)
[2021-11-14] MEDS: HYDROCORTISONE SOD 25 MG in SYRINGE 0 ML IV SCH ×2 (07:32→21:38)
[2021-11-14] MEDS ORDERED: MIDAZOLAM HCL 1 MG/ML 2ML VIAL ONE (07:42)
[2021-11-14] MEDS ORDERED: PROPOFOL IV EMULSION 10 MG/ML 20 ML VIAL IV ONE (07:42)
[2021-11-14] MEDS ORDERED: fentaNYL citrate 100 MCG/2 ML VIAL ONE (07:42)
[2021-11-14] MEDS ORDERED: SUCCINYLCHOLINE 100MG/5ML SYR IV ONE (07:42)
--- NOTE | 2021-11-14 08:32 | History & Physical Bridge Note ---
Date of Service November 14, 2021 History & Physical Bridge Note I have examined the patient, reviewed the History & Physical and in the interval since the performance of the History & Physical I have noted the following changes of clinical significance: no changes noted pt marked permit signed all question answered
[2021-11-14] MEDS ORDERED: ePHEDrine sulfate 50 MG/ML AMP IV PRN (08:33)
[2021-11-14] MEDS ORDERED: ONDANSETRON INJ 2 MG/ML 2 ML VIAL IV PRN (08:33)
[2021-11-14] MEDS ORDERED: ATROPINE SULFATE 0.1 MG/ML 10ML SYR IV PRN (08:33)
--- NOTE | 2021-11-14 08:33 | Anesthesiology Consultation ---
Date of Service November 14, 2021 Assessment & Plan Chart Review Chart Review: Acceptable Risk for Surgery and Patient NOT seen in Pre Admission Testing ASA ASA4 Proposed Anesthesia Anesthesia Type: General Risk / Benefits Reviewed With: PT / POA / Parent / Guardian, Accepts Plan and Informed Consent Obtained History Surgery Operation Date: 11/08/21 09:40 Proposed Procedures p Right Leg Angiogram with Intervention - Jun Kelly MD Operation Date: 11/11/21 11:35 Proposed Procedures p Right Above Knee Amputation - Jared Patel DO Operation Date: 11/14/21 08:15 Proposed Procedures p Right Above Knee Amputation - Manuel Baeza MD, FACS Height/Weight Height: 5 ft 2 in Weight: 63.4 kg Allergies Allergy/AdvReac Type Severity Reaction Status Date / Time dalbavancin Allergy Severe hypotension, Verified 11/07/21 20:59 flushing, tachypnea Medications Home Medications Medication Instructions Recorded Confirmed Last Taken lactobacillus combination no.4 3 3,000 mmu cells PO QAM 03/30/18 11/07/21 11/05/21 07:30 billion cell capsule (Probiotic) prednisone 1 mg tablet 1 mg PO QPM 03/30/18 11/07/21 11/05/21 18:00 prednisone 5 mg tablet 5 mg PO QAM 03/30/18 11/07/21 11/07/21 08:00 cranberry 500 mg capsule 500 mg PO QPM 09/29/18 11/07/21 11/05/21 18:00 omeprazole 20 mg capsule,delayed 20 mg PO BID 09/29/18 11/07/21 11/05/21 18:30 release vit A 7,160 unit-vit C 113 mg-vit 1 tab PO QAM 10/08/18 11/07/21 11/05/21 07:30 E-zinc [id number] 1 mg tablet ([facility]) leg brace (Knee Stabilizer) #1 ea 02/10/19 10/02/21 Unknown calcitriol 0.5 mcg capsule 0.5 mcg PO 2XWK 02/21/20 11/07/21 11/04/21 (Rocaltrol) leflunomide 20 mg tablet (Arava) 20 mg PO QAM 03/27/20 11/07/21 11/05/21 07:30 calcium carbonate 600 mg-vitamin 1 cap PO BID 07/16/20 11/07/21 11/05/21 18:00 D3 5 mcg (200 unit) capsule (Calcium 600 + D(3)) gabapentin 300 mg capsule 300 mg PO TID 07/16/20 11/07/21 11/05/21 21:00 metoprolol tartrate 50 mg tablet 50 mg PO BID #180 tab 12/27/20 11/07/21 11/06/21 07:30 sennosides 8.6 mg tablet (senna) 8.6 mg PO DAILY PRN 02/28/21 11/07/21 11/03/21 hydrocodone 10 mg-acetaminophen 1 tab PO Q4 PRN 03/07/21 11/07/21 11/07/21 09:00 325 mg tablet meclizine 25 mg tablet 25 mg PO BID PRN #20 tab 07/26/21 11/07/21 1 Month Ago ~10/07/21 apixaban 5 mg tablet (Eliquis) 5 mg PO BID #180 tab 08/28/21 11/07/21 11/07/21 08:00 oxybutynin chloride 5 mg tablet 5 mg PO BID #180 tab 08/28/21 11/07/21 11/05/21 18:00 ferrous sulfate 325 mg (65 mg 325 mg PO QAM 09/26/21 11/07/21 11/05/21 07:30 iron) tablet hydroxychloroquine 200 mg tablet 200 mg PO DAILY tab 10/02/21 11/07/21 11/05/21 07:30 (Plaquenil) cephalexin 500 mg capsule 500 mg PO TID 11/07/21 11/07/21 11/07/21 08:00 Active Medications Generic Name Dose Route Start Last Admin Trade Name Freq PRN Reason Stop Dose Admin Calcitriol 0.5 mcg 11/08/21 09:00 11/11/21 07:38 Calcitriol 0.25 Mcg Capsule PO 12/08/21 08:59 0.5 mcg MoFr ANGELO Administration Gabapentin 300 mg 11/08/21 09:00 11/14/21 07:31 Gabapentin 300 Mg Cap PO 12/08/21 08:59 300 mg TID ANGELO Administration Hydromorphone HCl 30 mg 11/08/21 18:54 11/08/21 23:49 Hydromorphone Director Gift 30 Mg/30 Ml IV 11/22/21 18:53 30 mg PRN PRN Administration STATISTICAL TYPIST Pain Titration Protocol Sodium Chloride 1,000 mls @ 15 mls/hr 11/08/21 19:00 11/11/21 19:35 Nss 1000ml IV 11/22/21 18:55 15 mls/hr .Q24H ANGELO Administration Hydrocortisone Sodium 0.5 mls @ 4 mls/min 11/11/21 21:00 11/14/21 07:32 Succinate 25 mg/ Syringe IV 12/11/21 20:59 4 mls/min BID ANGELO Administration Amiodarone HCl/Dextrose 360 mg in 200 mls @ 16.667 mls/hr 11/12/21 23:30 11/14/21 07:14 Nexterone / D5w IV 12/12/21 23:29 0.5 mg/min .Q12H ANGELO 16.7 mls/hr Infusion 0.5 MG/MIN Heparin Sodium/Dextrose 25,000 units in 500 mls @ 0 mls/hr 11/12/21 20:15 11/14/21 07:25 Heparin Sodium/Dextrose IV 12/12/21 20:14 Not Given .Q0M ANGELO Protocol 0 UNITS/HR Diltiazem HCl 125 mg/ Dextrose 125 mls @ 15 mls/hr 11/13/21 19:30 11/14/21 0 7:14 IV 12/13/21 19:29 15 mg/hr .Q8H20M ANGELO 15 mls/hr Titration Protocol 15 MG/HR Magnesium Oxide 400 mg 11/09/21 21:00 11/13/21 20:08 Magnesium Oxide 400 Mg Tab PO 12/09/21 20:59 400 mg QPM ANGELO Administration Metoprolol Tartrate 75 mg 11/12/21 21:00 11/14/21 07:31 Metoprolol Tartrate 25 Mg Tab PO 12/12/21 20:59 75 mg BID ANGELO Administration Oxybutynin Chloride 5 mg 11/08/21 09:00 11/14/21 07:30 Oxybutynin Chloride 5 Mg Tab PO 12/08/21 08:59 5 mg BID ANGELO Administration Pantoprazole Sodium 40 mg 11/08/21 09:00 11/14/21 07:31 Pantoprazole 40 Mg Tab PO 12/08/21 08:59 40 mg DAILY ANGELO Administration Prednisone 5 mg 11/08/21 09:00 11/14/21 07:30 Prednisone 5 Mg Tab PO 12/08/21 08:59 5 mg QAM ANGELO Administration Prednisone 1 mg 11/08/21 21:00 11/13/21 20:07 Prednisone 1 Mg Tab PO 12/08/21 20:59 1 mg QPM ANGELO Administration NPO Date Last Intake of Fluids: 11/13/21 Time Last Intake of Fluids: 20:00 Last Intake of Fluids Comment: sip with meds Date Last Intake of Solids: 11/13/21 Time Last Intake of Solids: 17:00 Past Medical History Medical History Chronic back pain DDD (degenerative disc disease) GERD (gastroesophageal reflux disease) controlled History of COVID-19 hospitalized 07/16/20 [facility]. hypoxia, fever, cough, chills, loss of taste/smell. pt reports taste/smell still not fully back to normal. History of Hodgkin's lymphoma 2003/under surveillance by PCP/Dr. Thibodeaux- S/p chemo in 2003- none since History of oral cancer s/p tongue excision left side (no chemo/no XRT 2013) No issues since Hypertension Ischemic leg pain Overactive bladder PAF (paroxysmal atrial fibrillation) hx - on Eliquis Paroxysmal SVT (supraventricular tachycardia) hx (follows with Dr. Vance) Peripheral arterial disease PONV (postoperative nausea and vomiting) RA (rheumatoid arthritis) on chronic steroid Skin benign neoplasm Vertigo No current issues Exercise / Class Metabolic Activity III < 4 Walking/Shop/Light housework Past Family History Family History Mother Breast cancer Colorectal cancer Cancer Gastric cancer Aunt Colorectal cancer Other Family history non-contributory Denies family history of Ovarian cancer Prostate cancer Myocardial infarction Past Surgical History Surgical History H/O foot surgery TOES X MULTIPLE H/O parathyroidectomy History of biopsy Of soft tissue of the neck History of breast surgery Puncture aspiration of cyst History of carpal tunnel release RIGHT History of colonoscopy History of colposcopy with cervical biopsy with endocervical curettage History of glossectomy with unilateral radical neck dissection History of hip surgery R/L REVISION Left MAURO revision: 11/09/18: SABx1 at L3-L4 at [facility] History of spinal surgery 10/02/20 [facility] Dr. Sanford History of total hip arthroplasty R/L History of total knee replacement R/L History of tubal ligation Hx of hand surgery RIGHT Hx of knee surgery most recent 02/28/2020 [facility] Right TKA revision, I&D, antibiotic spacer: 12/29/19: SAB + PNB at [facility] S/P revision of total knee 12/29/19 Dr. Ihsan Vela- Right total knee revision, Incision and drainage with antibiotic cement spacer Past Anesthesia History No Hx of Anesthesia Complications and No Family Hx of Anesthesia Complications History of PONV No Hx of PONV and No Hx of Motion Sickness Social History Smoking Status: Never smoker Hx Alcohol Use: No Alcohol type: hard liquor alcohol intake frequency: holidays/special occasions only Hx Substance Use: No substance use type: does not use Review of Systems denies fever/cough/ colds/ chest pain/ SOB/ JOSSELYN denies JOSSELYN Physical Exam Vital Signs Last Vital Signs Temp 36.1 C L 11/14/21 07:28 Pulse 84 11/14/21 07:28 Resp 20 11/14/21 07:28 BP 143/71 H 11/14/21 07:28 Pulse Ox 93 11/14/21 07:28 ENMT Mouth: no TMJ abnormality and no dentition abnormality Thyromental Distance: > or= 3.5 Finger Breadths Mallampati Class: II Neck neck extension not limited Respiratory normal respiratory effort; no respiratory distress Auscultation: lungs clear to auscultation bilaterally Cardiovascular Rate/Rhythm: + tachycardic Neurologic moves all extremities Psychiatric Orientation: alert and oriented x 3 Testing Laboratory Results 11/14/21 05:01 11/14/21 05:01 PT 11.4 Seconds (9.0-12.0) 11/11/21 12:20 INR 1.1 (0.9-1.1) 11/11/21 12:20 APTT 32.9 Seconds (21.0-31.0) H 11/14/21 05:01 Blood Type O Positive 11/13/21 17:10 Antibody Screen NEGATIVE 11/13/21 17:10 11/09/21 12:38 Aerobic Blood Culture - Preliminary Blood No growth in Aerobic bottle after 48 hours. Anaerobic Blood Culture - Preliminary No growth in Anaerobic bottle after 48 hours. 11/09/21 12:47 Aerobic Blood Culture - Preliminary Blood No growth in Aerobic bottle after 48 hours. Anaerobic Blood Culture - Preliminary No growth in Anaerobic bottle after 48 hours. Electrocardiogram Date: 03/07/21 Poor data quality, interpretation may be adversely affected Sinus tachycardia with Premature atrial complexes, rate 101 bpm Nonspecific T wave abnormality Abnormal ECG When compared with ECG of 06-OCT-2020 18:30, Premature atrial complexes are now Present Confirmed by Yayo Brewer ([id number]) on 03/08/2021 6:13:19 AM Echocardiogram Date: 12/30/19 LV systolic function is normal No regional wall motion abnormalities Mild concentric LVH EF 60-65% Mild TR No valvular vegetation Compared with study dated 06/17/19, no significant change Cervical Spine Date: 09/06/20 IMPRESSION: 1. Mild anterolisthesis of C3 on C4, and C4 on C5. This finding was present on the prior October 2018 study. The C3 on C4 anterolisthesis is currently visualized only in flexion and reduces in extension. The 3 mm of anterolisthesis of C4 on C5 is currently visualized only in extension.
[2021-11-14] MEDS ORDERED: HYDROmorphone INJ 2 MG/ML SYR/VIAL ONE (09:15)
[2021-11-14] MEDS ORDERED: DEXAMETHASONE SOD INJ 4 MG/ML VIAL ONE (09:28)
[2021-11-14] MEDS ORDERED: ONDANSETRON INJ 2 MG/ML 2 ML VIAL ONE (09:28)
[2021-11-14] MEDS ORDERED: ceFAZolin 2000MG 2,000 MG/15 ML SYR IV ONE (09:29)
[2021-11-14] MEDS ORDERED: PHENYLEPHRINE HCL 10 MG/ML VIAL ONE (09:30)
[2021-11-14] MEDS ORDERED: ePHEDrine sulfate 50 MG/ML SYR ONE (09:30)
[2021-11-14] MEDS ORDERED: PHENYLEPHRINE 100MCG/ML 5ML SYR ONE (09:30)
--- NOTE | 2021-11-14 10:01 | Post Operative Brief Note ---
Immediate Post Op Note v1 Date of Surgery November 14, 2021 Pre & Post Diagnosis Operation Date: 11/08/21 09:40 Pre-Op Diagnosis: Ischemic Right Leg Post-Op Diagnosis: Ischemic Right Leg Operation Date: 11/11/21 11:35 <No data on this case meets the specified criteria> Operation Date: 11/14/21 08:15 Pre-Op Diagnosis: Right ischemic leg pain Post-Op Diagnosis: Right ischemic leg pain I identified the patient and participated in the time-out.: Yes Procedure Operation Date: 11/08/21 09:40 Actual Procedures p Right Leg Arteriogram, Attempted Angioplasty, Mechanical Closure Left Femoral Artery(Left) - Jun Kelly MD Operation Date: 11/11/21 11:35 <No data on this case meets the specified criteria> Operation Date: 11/14/21 08:15 Actual Procedures p Right Above Knee Amputation(Right) - Manuel Baeza MD, FACS Surgeon Manuel Baeza MD, FACS [employer] [place],PAC Estimated Blood Loss 100 Findings Consistent with Post-Op Diagnosis Drains Chan Catheter Anesthesia Type General
--- NOTE | 2021-11-14 10:18 | Operative Report ---
Post Operative Report Pre & Post Diagnosis Operation Date: 11/08/21 09:40 Pre-Op Diagnosis: Ischemic Right Leg Post-Op Diagnosis: Ischemic Right Leg Operation Date: 11/11/21 11:35 <No data on this case meets the specified criteria> Operation Date: 11/14/21 08:15 Pre-Op Diagnosis: Right ischemic leg pain Post-Op Diagnosis: Right ischemic leg pain I identified the patient and participated in the time-out.: Yes Procedure Operation Date: 11/08/21 09:40 Actual Procedures p Right Leg Arteriogram, Attempted Angioplasty, Mechanical Closure Left Femoral Artery(Left) - Jun Kelly MD Operation Date: 11/11/21 11:35 <No data on this case meets the specified criteria> Operation Date: 11/14/21 08:15 Actual Procedures p Right Above Knee Amputation(Right) - Manuel Baeza MD, FACS Patient was brought into the operating theater supine position general endotracheal anesthesia Chan catheter inserted antibiotics on board right lower abdomen and leg well below the knee was prepped with Betadine solution properly draped we elevated the lower leg on a towel and able to place a stockinette below the knee and wrapped it in Coban a timeout was had the patient was identif ied at this point using a marker we delineated the incision above the knee and a fishmouth fashion her first point of entry was probably more than fci up in the thigh staying above the previous incision that had been used for knee replacement using the knife we developed. Posterior flap all the way to the subcutaneous tissue cautery was used to control some the subcutaneous bleeders then we developed the anterior flap in a similar fashion we ran into a pseudocapsule for previous knee replacement there was some nonabsorbable sutures that we removed. Once we developed this anterior flap we continued down dividing the medial lateral muscles and moving up the femur to the point that we well but above her flap probably 10 cm or so we used a Gigli saw to resect the femur. Once this had been performed we placed a foam pad posterior to the leg so that we can elevated and then at this point we were able to identify the medial popliteal fossa with the vasculature in the vein we ligated those in a single sweep using Kellys and tied with double silks proximally and distally with a single silk using a fillet knife we then were able to 1 small sweep develop all the posterior muscle fibers. Minimal bleeding was appreciated. We did control a few genicular collaterals with interrupted 2-0 Vicryl sutures. Popliteal nerve was identified pulled out to the point that we retracted quite prominently resected approximately another 6 or 7 cm and ligated with 2-0 Vicryl suture. Once we felt that hemostasis was adequate I resected another enter so femur to make sure there were well away from the line of resection which we were. By the time we were done the femur was approximately good 10 cm from the distal aspect of the fishmouth incision we closed multiple layers using 2-0 Vicryl suture reapproximating the muscle fibers closing over the popliteal fossa area and continuing to the point that we there was no skin tension. We did resect a little bit more skin anteriorly since part of the flap with greatest anteriorly was still part of the incision for 3 to 4 months centimeters from increasing need replacement. Once this been performed we then used staple approximate the skin edges Xeroform gauze was placed then 4 x 4 then fluff gauze Curlex then an Son bandage. The procedure was tolerated well by the patient estimate blood loss approximately 100 cc Addendum spoke to the Basil [phone] discussed the operative procedure and also told him that this weekend I would be a way another surgeon would be following the patient and most likely should be here till the beginning of the week Surgeon Manuel Baeza MD, FACS [employer] [place],MINOR Estimated Blood Loss 100 Findings Consistent with Post-Op Diagnosis As preop ischemic right foot peripheral vascular arterial insufficiency Specimens Right AK amputation Drains None Complications None Indications Ischemic right foot with rest pain peripheral vascular arterial insufficiency not amendable to surgical endovascular treatment Description of Procedure merda I attest to the content of the Intraoperative Record and any orders documented therein. Any exceptions are noted below.
[2021-11-14] MEDS: HYDROmorphone INJ 2 MG/ML SYR/VIAL IV PRN ×4 (10:23→10:45)
--- NOTE | 2021-11-14 11:23 | Anesthesiology Progress Note ---
Date of Service November 14, 2021 Anesthesia Post Procedure Vital Signs Vital Signs: Temp Pulse Pulse Resp BP BP BP 11/14/21 11:20 36.3 C L 73 12 158/74 H 11/14/21 11:10 70 12 155/78 H 11/14/21 11:00 70 16 161/82 H 11/14/21 10:50 71 16 160/70 H 11/14/21 10:40 71 18 150/79 H 11/14/21 10:30 70 13 157/79 H 11/14/21 10:20 70 20 162/88 H 11/14/21 10:12 36.7 C 71 15 160/75 H 143/71 H 11/14/21 08:00 92 H 19 11/14/21 07:28 36.1 C L 84 20 143/71 H 11/14/21 07:17 88 21 143/71 H 11/14/21 06:45 73 20 11/14/21 04:00 36.8 C 75 16 128/69 11/13/21 23:05 36.8 C 100 H 16 132/81 11/13/21 23:04 100 H 11/13/21 19:30 36.8 C 143 H 18 132/90 11/13/21 19:00 144 H 25 H 11/13/21 18:12 146 H 25 H 139/101 H 11/13/21 16:00 36.7 C 147 H Pulse Ox 11/14/21 11:20 94 11/14/21 11:10 93 11/14/21 11:00 93 11/14/21 10:50 93 11/14/21 10:40 94 11/14/21 10:30 95 11/14/21 10:20 96 11/14/21 10:12 93 11/14/21 08:00 89 L 11/14/21 07:28 93 11/14/21 07:17 88 L 11/14/21 06:45 96 11/14/21 04:00 96 11/13/21 23:05 94 11/13/21 23:04 11/13/21 19:30 96 11/13/21 19:00 95 11/13/21 18:12 96 11/13/21 16:00 Pain Intensity Right Foot: Pain Intensity: 5 Right Posterior Calf: Pain Intensity: 2 Right Leg: Pain Intensity: 4 Transfer of Care Handoff Completed per policy Notes Mental Status: alert / awake / arousable and participated in evaluation Patient Amnestic to Procedure: Yes Nausea / Vomiting: adequately controlled Pain: adequately controlled Airway Patency, RR, SpO2: stable & adequate BP & HR: stable & adequate Hydration State: stable & adequate Anesthetic Complications: no major complications apparent and Pt Satisfied with anesthetic care
[2021-11-14] MEDS: AMIODARONE / D5W 360 MG/200 ML BAG IV SCH ×2 (11:54→23:15)
[2021-11-14] MEDS: SODIUM CHLORIDE 0.9% 1000ML 1,000 ML IV SCH (11:54)
[2021-11-14] MEDS: HYDROmorphone INJ 0.5 MG/0.5 ML SYR IV PRN ×2 (14:24→17:20)
[2021-11-14] MEDS: SODIUM CHLORIDE 0.9% 500 ML IV SCH ×2 (14:24→23:51)
--- NOTE | 2021-11-14 19:24 | Hospitalist Progress Note ---
Date of Service November 14, 2021 Assessment & Plan (1) Occlusion of stent of peripheral artery: Plan: 71yo female with history of peripheral arterial disease s/p RLE arteriogram with stenting of right SFA performed 11/06/21 returning with RLE thigh and calf pain, pain in the foot with discoloration and pallor. Found to have occluded superficial femoral arterial stent on Doppler as well as posterior tibial arterial occlusion. Admitted on heparin gtt and then taken to OR with Vascular on 11/08--> no occlusion of SFA stent found but had multiple attempts by Vascular intraoperatively to bypass the tibial artery but was not possible due to calcified arteries. With fever, leukocytosis, cellulitis and wounds of foot, ischemic toes/foot Fevers now resolved, WBC count back to normal, cellulitis not spreading but foot is obviously ischemic -now s/p above knee amputation 11/[address] Baeza -pain control switched to dilaudid 0.5mg IV q2h PRN -Zofran PRN nausea -antibiotics discontinued per surgery post operatively (2) PAF (paroxysmal atrial fibrillation): Plan: Rapid atrial fibrillation that came on intraoperatively, rates as high as 160s Now on PCU. Patient is on amiodarone drip/diltiazem drip (now discontinued/ metoprolol orally Now converted back to NSR. Rsume heparin IV drip when ok by surgery (3) Sepsis: Plan: Now resolved. with fever, tachycardia, leukocytosis, and right foot cellulitis as source follow BCxs-NGTD holding home leflunomide, but remains on Plaquenil-will now HOLD Plaquenil as well until after amputation and wounds healing (4) Ischemic leg pain: Plan: Now resolved s/p amputation (5) Cellulitis: Plan: Right foot ulceration with cellulitis now resolved s/p amputation (6) Acute respiratory failure with hypoxia: Plan: has been on 4LNC since admission, now weaned down to 2LNC denies SOB, no cough or CP no chronic lung issues pulmonary edema on CXR 11/10 - should slowly resolve now in NSR (7) Peripheral arterial disease: Plan: With arterial occlusion s/p stenting -as above (8) Rheumatoid arthritis: Plan: Chronic. Stable -hold Plaquenil and leflunomide -Continue Prednisone 5mg po qAM, 1mg po qPM. Low threshold for stress dosed steroids if patient becomes hypotensive -BP appears to be stable on current hydrocortisone 25mg PO BID therefore will continue for this now but switch to stress dose steroids if BP drops overnight (9) Hypertension: Plan: Blood pressure stable -Pain control -Continue Metoprolol -Continue to monitor (10) GERD (gastroesophageal reflux disease): Plan: Chronic. On Omeprazole BID at home -Protonix 40mg po daily (11) Overactive bladder: Plan: Chronic. Controlled on medication -remain on Oxybutynin (12) Steroid dependence: Plan: continue prednisone Plan: Ppx - Heparin gtt Code - Full Dispo - continued stay in PCU in the immediate post operative period Discussed care with at bedside Admission and Anticipated Discharge Date Admission Date: November 07, 2021 Subjective Patient seen post surgery and appears to be doing well. Converted to sinus rhythm during surgery and diltiazem stopped. She remains on IV amiodarone. Heparin IV drip stopped for surgery. No chest pain, shortness of breath or dizziness. Not yet been out of bed. Review of Systems Review of Systems: All systems reviewed & are unremarkable except as noted in Subjective Physical Exam Constitutional: WD/WN, vitals as above Respiratory: normal respiratory effort, lungs clear to auscultation Cardiovascular: RRR, no murmur, no edema Musculoskeletal: Surgical dressing not removed for right above knee amputation. NV intact left leg with cap refil < 2 s, sensation intact and 1st to dorsiflexion 5/5 Skin: no rashes, warm and dry Psychiatric: A+Ox3, euthymic affect Results & Data Results & Data ([facility]) Vital Signs (Past 12 Hours) Vital Signs Temp Pulse Pulse Resp BP BP BP 11/14/21 15:29 67 11/14/21 15:15 67 13 166/73 H 11/14/21 15:00 66 15 168/75 H 11/14/21 14:46 71 21 163/80 H 11/14/21 14:31 82 24 163/87 H 11/14/21 14:15 71 18 155/79 H 11/14/21 14:00 67 12 160/71 H 11/14/21 13:45 66 11 L 149/84 H 11/14/21 13:30 65 12 157/76 H 11/14/21 13:15 75 16 159/105 H 11/14/21 13:00 66 9 L 158/79 H 11/14/21 12:45 66 16 149/76 H 11/14/21 12:30 67 10 L 163/84 H 11/14/21 12:15 67 9 L 160/77 H 11/14/21 12:00 66 10 L 158/78 H 11/14/21 11:45 68 10 L 163/78 H 11/14/21 11:38 35 H 168/73 H 11/14/21 11:37 11/14/21 11:20 36.3 C L 73 12 158/74 H 11/14/21 11:10 70 12 155/78 H 11/14/21 11:00 70 16 161/82 H 11/14/21 10:50 71 16 160/70 H 11/14/21 10:40 71 18 150/79 H 11/14/21 10:30 70 13 157/79 H 11/14/21 10:20 70 20 162/88 H 11/14/21 10:12 36.7 C 71 15 160/75 H 143/71 H 11/14/21 08:00 92 H 19 11/14/21 07:28 36.1 C L 84 20 143/71 H Pulse Ox 11/14/21 15:29 11/14/21 15:15 95 11/14/21 15:00 94 11/14/21 14:46 92 11/14/21 14:31 97 11/14/21 14:15 94 11/14/21 14:00 93 11/14/21 13:45 94 11/14/21 13:30 94 11/14/21 13:15 93 11/14/21 13:00 94 11/14/21 12:45 94 11/14/21 12:30 94 11/14/21 12:15 93 11/14/21 12:00 92 11/14/21 11:45 93 11/14/21 11:38 93 11/14/21 11:37 93 11/14/21 11:20 94 11/14/21 11:10 93 11/14/21 11:00 93 11/14/21 10:50 93 11/14/21 10:40 94 11/14/21 10:30 95 11/14/21 10:20 96 11/14/21 10:12 93 11/14/21 08:00 89 L 11/14/21 07:28 93 PG Care Time/CCT Total # of Minutes Spent Total Time Spent with Patient: Total time spent is greater than 50% in coordination of care (as documented) at patient's floor/unit and/or counseling patient: Coding Level of Care Code 90141 Subseq Hosp Care Lvl 3 Diagnoses Occlusion of stent of peripheral artery T82.599A PAF (paroxysmal atrial fibrillation) I48.0 Sepsis A41.9 Ischemic leg pain M79.606; I99.8 Cellulitis L03.90 Acute respiratory failure with hypoxia J96.01 Peripheral arterial disease I73.9 Rheumatoid arthritis M06.9 Hypertension I10 GERD (gastroesophageal reflux disease) K21.9 Overactive bladder N32.81 Steroid dependence F19.20
[2021-11-14] MEDS: predniSONE 1 MG TAB PO SCH (21:38)
[2021-11-14] MEDS: MAGNESIUM OXIDE 400 MG TAB PO SCH (21:39)
--- NOTE | 2021-11-14 22:55 | Electrocardiogram Report ---
Test Reason : Blood Pressure : / mmHG Vent. Rate : 115 BPM Atrial Rate : 300 BPM P-R Int : 000 ms QRS Dur : 084 ms QT Int : 328 ms P-R-T Axes : 000 033 161 degrees QTc Int : 453 ms Atrial fibrillation with rapid ventricular response Nonspecific T wave abnormality Abnormal ECG When compared with ECG of 12-NOV-2021 17:57, No significant change Confirmed by Yayo Brewer ([id number]) on 11/14/2021 10:55:36 PM Referred By: REFERRED SELF Confirmed By:Yayo Brewer
[2021-11-15 05:41] LABS: BUN Creatinine Ratio 22.4 (10-20); Calcium 8.1 mg/dl (8.5-10.1); Creatinine Clr Calc Pharmacy 44.7 ml/min; Est GFR (African American) 66.3 ml/min; Est GFR (Non-African American) 57.2 ml/min; Magnesium 2.2 mg/dl (1.7-2.4); Potassium 4.9 mmol/L (3.5-5.1)
[2021-11-15] MEDS: HYDROmorphone INJ 0.5 MG/0.5 ML SYR IV PRN ×4 (05:45→19:49)
[2021-11-15 05:47] LABS: Basophils # (auto) 0.01 K/uL (0-0.2); Basophils % (auto) 0.1 %; Hematocrit (blood only) 29.8 % (37-47); Hemoglobin 9.3 g/dL (12.0-16.0); Immature Granulocytes # (auto) 0.14 K/uL (0.00-0.02); Immature Granulocytes % (auto) 1.1 %; Lymphocytes # (auto) 0.64 K/uL (1.2-3.4); Lymphocytes % (auto) 5.2 %; Mean Corpuscular Hemoglobin 28.4 pg (25-34); Mean Corpuscular Hgb Conc 31.2 g/dL (32-36); Mean Corpuscular Volume 91.1 fL (80-100); Mean Platelet Volume 11.1 fL (7.4-10.4); Monocytes # (auto) 1.46 K/uL (0.11-0.59); Monocytes % (auto) 11.9 %; Neutrophils # (auto) 10.05 K/uL (1.4-6.5); Neutrophils % (auto) 81.7 %; Platelet Count 227 K/uL (130-400); RDW Coefficient of Variation 15.6 % (11.5-14.5); RDW Standard Deviation 51.6 fL (36.4-46.3); Red Blood Count 3.27 M/uL (4.2-5.4)
[2021-11-15] MEDS: HYDROCORTISONE SOD 25 MG in SYRINGE 0 ML IV SCH (08:32)
[2021-11-15] MEDS: predniSONE 5 MG TAB PO SCH (08:32)
[2021-11-15] MEDS: OXYBUTYNIN CHLORIDE 5 MG TAB PO SCH ×2 (08:32→20:30)
[2021-11-15] MEDS: PANTOprazole 40 MG TAB PO SCH (08:32)
[2021-11-15] MEDS: GABAPENTIN 300 MG CAP PO SCH ×3 (08:32→20:31)
[2021-11-15] MEDS: METOPROLOL TARTRATE 25 MG TAB PO SCH ×2 (08:32→20:30)
[2021-11-15] MEDS: SENNA 8.6 MG TAB PO PRN (08:33)
[2021-11-15] MEDS: SODIUM CHLORIDE 0.9% 500 ML IV SCH (08:37)
--- NOTE | 2021-11-15 08:54 | XRay Report ---
XR chest 1V portable CLINICAL HISTORY: persistent hypoxia TECHNIQUE: Single frontal radiograph of the chest was obtained. Comparison: Comparison is made to chest radiograph 11/10/2021 FINDINGS: No lines and tubes are seen. Calcified aortic knob is seen. Bilateral lower lung predominant airspace opacities are seen. Small bilateral pleural effusions, stable to minimally improved from prior exam. Stable moderate pulmonary edema, unchanged. Degenerative changes are seen in the bilateral shoulder joints. IMPRESSION: 1. Bilateral lower lung predominant airspace opacities which may represent atelectasis, pneumonia, a nd/or aspiration. These are slightly more pronounced than the prior exam. 2. Stable moderate pulmonary edema. ACT 112: Negative or not required by law. Electronically signed by: Hai Weems M.D. 11/15/2021 8:52 AM
[2021-11-15] MEDS: CALCITRIOL 0.25 MCG CAPSULE PO SCH (09:38)
[2021-11-15] MEDS: AMIODARONE / D5W 360 MG/200 ML BAG IV SCH (11:18)
--- NOTE | 2021-11-15 12:06 | Hospitalist Progress Note ---
Date of Service November 15, 2021 Assessment & Plan (1) Occlusion of stent of peripheral artery: Plan: 71yo female with history of peripheral arterial disease s/p RLE arteriogram with stenting of right SFA performed 11/06/21 returning with RLE thigh and calf pain, pain in the foot with discoloration and pallor. Found to have occluded superficial femoral arterial stent on Doppler as well as posterior tibial arterial occlusion. Admitted on heparin gtt and then taken to OR with Vascular on 11/08--> no occlusion of SFA stent found but had multiple attempts by Vascular intraoperatively to bypass the tibial artery but was not possible due to calcified arteries. With fever, leukocytosis, cellulitis and wounds of foot, ischemic toes/foot Fevers now resolved, WBC count back to normal -now s/p above knee amputation 11/[address] Baeza -pain control switched to dilaudid 0.5mg IV q2h PRN -Zofran PRN nausea -antibiotics discontinued per surgery post operatively (2) PAF (paroxysmal atrial fibrillation): Plan: Rapid atrial fibrillation that came on intraoperatively, rates as high as 160s Now on PCU. Patient is on amiodarone drip/diltiazem drip (now discontinued)/ metoprolol orally Now converted back to NSR. Discussed with surgery and can resume Eliquis tomorrow for stroke prophylaxis Discussed with Dr Vance and will switch IV amiodarone to PO 200mg PO BID today. (3) Sepsis: Plan: Now resolved. with fever, tachycardia, leukocytosis, and right foot cellulitis as source follow BCxs-NGTD holding home leflunomide, but remains on Plaquenil-will now HOLD Plaquenil as well until after amputation and wounds healing (4) Ischemic leg pain: Plan: Now resolved s/p amputation (5) Cellulitis: Plan: Right foot ulceration with cellulitis now resolved s/p amputation (6) Acute respiratory failure with hypoxia: Plan: has been on 4LNC since admission, now weaned down to 2LNC denies SOB, no cough or CP no chronic lung issues pulmonary edema on CXR 11/10 - continues on repeat CXR today. Should slowly resolve now in NSR but may need Lasix tomorrow if not able to get her on room air (7) Peripheral arterial disease: Plan: With arterial occlusion s/p stenting -as above (8) Rheumatoid arthritis: Plan: Chronic. Stable -hold Plaquenil and leflunomide -Continue Prednisone 5mg po qAM, 1mg po qPM. Low threshold for stress dosed steroids if patient becomes hypotensive -BP appears to be stable on current hydrocortisone 25mg PO BID -> reduce to 10mg PO BID today. (9) Hypertension: Plan: Blood pressure stable -Pain control -Continue Metoprolol -Continue to monitor (10) GERD (gastroesophageal reflux disease): Plan: Chronic. On Omeprazole BID at home -Protonix 40mg po daily (11) Overactive bladder: Plan: Chronic. Controlled on medication -remain on Oxybutynin (12) Steroid dependence: Plan: continue prednisone Plan: Ppx - Eliquis to restart tomorrow per surgery Code - Full Dispo - Stable to downgrade to med/tele Admission and Anticipated Discharge Date Admission Date: November 07, 2021 Subjective patient doing well post operatively. Has some phantom limb pain. No fever or chills. No further episodes of atrial fibrillation. Dressing changed by surgery today as it was coming loose and surgical incision appears clean, dry and intact. Review of Systems Review of Systems: All systems reviewed & are unremarkable except as noted in Subjective Physical Exam Constitutional: WD/WN, vitals as above Respiratory: normal respiratory effort, lungs clear to auscultation Cardiovascular: RRR, no murmur, no edema Skin: no rashes, warm and dry Psychiatric: A+Ox3, euthymic affect Results & Data Results & Data ([facility]) Vital Signs (Past 12 Hours) Vital Signs Temp Pulse Pulse Resp BP BP Pulse Ox 11/15/21 11:17 37.2 C 11/15/21 11:15 108 H 28 H 90 11/15/21 11:07 82 20 144/97 H 94 11/15/21 07:57 90 11/15/21 07:28 36.8 C 87 18 166/87 H 92 11/15/21 04:01 36.5 C 11/15/21 03:48 78 24 161/112 H 94 11/15/21 03:00 80 18 177/85 H 95 11/15/21 02:00 73 17 168/89 H 96 11/15/21 01:00 74 17 170/93 H 96 PG Care Time/CCT Total # of Minutes Spent Total Time Spent with Patient: Total time spent is greater than 50% in coordination of care (as documented) at patient's floor/unit and/or counseling patient: Coding Level of Care Code 83213 Subseq Hosp Care Lvl 3 Diagnoses Occlusion of stent of peripheral artery T82.599A PAF (paroxysmal atrial fibrillation) I48.0 Sepsis A41.9 Ischemic leg pain M79.606; I99.8 Cellulitis L03.90 Acute respiratory failure with hypoxia J96.01 Peripheral arterial disease I73.9 Rheumatoid arthritis M06.9 Hypertension I10 GERD (gastroesophageal reflux disease) K21.9 Overactive bladder N32.81 Steroid dependence F19.20
--- NOTE | 2021-11-15 12:07 | Surgery Progress Note ---
Date of Service November 15, 2021 Assessment & Plan (1) History of right above knee amputation: Plan: Postoperative day 1. Doing as expected. Adequate pain control If no bleeding in the next 24 hours could likely restart her oral anticoagulation for A. fib. Admission and Anticipated Discharge Date Admission Date: November 07, 2021 Subjective pt seen. Having pain but it is being adequately managed. Physical Exam Physical Exam: Alert. No acute distress Dressing changed today. The wound looks good. Small to moderate amount of sanguinous drainage on the bandage. Results & Data ([facility]) Vital Signs (Past 12 Hours) Vital Signs Temp Pulse Pulse Resp BP BP Pulse Ox 11/15/21 11:17 37.2 C 11/15/21 11:15 108 H 28 H 90 11/15/21 11:07 82 20 144/97 H 94 11/15/21 07:57 90 11/15/21 07:28 36.8 C 87 18 166/87 H 92 11/15/21 04:01 36.5 C 11/15/21 03:48 78 24 161/112 H 94 11/15/21 03:00 80 18 177/85 H 95 11/15/21 02:00 73 17 168/89 H 96 11/15/21 01:00 74 17 170/93 H 96 PG Care Time/CCT Total # of Minutes Spent Total Time Spent with Patient: Total time spent is greater than 50% in coordination of care (as documented) at patient's floor/unit and/or counseling patient: Coding Level of Care Code None Diagnoses History of right above knee amputation Z89.611
[2021-11-15] MEDS: AMIODARONE 200 MG TAB PO SCH ×2 (12:19→16:52)
--- NOTE | 2021-11-15 14:06 | Cardiology Progress Note ---
Date of Service November 15, 2021 Assessment & Plan (1) PAF (paroxysmal atrial fibrillation): Plan: -converted to sinus rhythm before surgery. -agree with oral amiodarone. -agree with metoprolol tartrate 75 mg b.i.d. -okay to hold Eliquis for an additional 24 hours. (2) Hypertension: Plan: -adequate control currently. Admission and Anticipated Discharge Date Admission Date: November 07, 2021 Subjective The patient is resting comfortably in bed without complaints of chest pain or dyspnea. She is experiencing phantom limb pain. Physical Exam Physical Exam: In general this is a well-developed well-nourished white female in no acute distress. HEENT exam is negative. Neck is supple with full carotid upstrokes. There are no carotid bruits. No JVD. There is no thyromegaly. Cardiovascular exam reveals irregular irregular rhythm with distant heart sounds. No obvious murmurs. Lungs are clear without rales, rhonchi, or wheezes. Abdomen is soft and nontender without bruits. Extremities reveal intact radial artery pulses bilaterally. Right AKA. 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 PG Care Time/CCT Total # of Minutes Spent Total Time Spent with Patient: Total time spent is greater than 50% in coordination of care (as documented) at patient's floor/unit and/or counseling patient: Coding Level of Care Code 47036 Subseq Hosp Care Lvl 3 Diagnoses PAF (paroxysmal atrial fibrillation) I48.0 Hypertension I10
[2021-11-15] MEDS: ONDANSETRON INJ 2 MG/ML 2 ML VIAL IV PRN (15:36)
--- NOTE | 2021-11-15 16:55 | Electrocardiogram Report ---
Test Reason : Blood Pressure : / mmHG Vent. Rate : 079 BPM Atrial Rate : 283 BPM P-R Int : 000 ms QRS Dur : 084 ms QT Int : 386 ms P-R-T Axes : 000 031 083 degrees QTc Int : 442 ms Atrial flutter with variable A-V block Nonspecific T wave abnormality Abnormal ECG When compared with ECG of 13-NOV-2021 06:19, No significant change was found Confirmed by Yayo Brewer ([id number]) on 11/15/2021 4:54:47 PM Referred By: REFERRED SELF Confirmed By:Yayo Brewer
[2021-11-15] MEDS: predniSONE 1 MG TAB PO SCH (20:30)
[2021-11-15] MEDS: MAGNESIUM OXIDE 400 MG TAB PO SCH (20:31)
[2021-11-15] MEDS: HYDROCORTISONE SOD 10 MG in SYRINGE 0 ML IV SCH (20:31)
--- NOTE | 2021-11-16 05:51 | Surgery Progress Note ---
Date of Service November 16, 2021 Assessment & Plan (1) History of right above knee amputation: Plan: Continue pain management which appears to be adequate at the present time. Will check CBC this morning and if stable can consider resuming patient's anticoagulation. as above. doing as expected. will start some oral analgesics. ok with us to restart her oral anticoagulation. Admission and Anticipated Discharge Date Admission Date: November 07, 2021 Subjective Patient is resting comfortably in bed. She notes her pain is well controlled. She denies any fevers, shakes, chills. She denies any shortness of breath. Physical Exam Physical Exam: Right lower extremity amputation site is covered with a dressing that is clean, dry, intact. Results & Data ([facility]) Vital Signs (Past 12 Hours) Vital Signs Temp Pulse Pulse Pulse Resp BP Pulse Ox 11/16/21 03:25 36.7 C 61 20 156/90 H 94 11/15/21 22:50 36.9 C 92 H 20 136/84 94 11/15/21 22:20 84 11/15/21 18:37 37.1 C 88 16 152/75 H 92 PG Care Time/CCT Total # of Minutes Spent Total Time Spent with Patient: Total time spent is greater than 50% in coordination of care (as documented) at patient's floor/unit and/or counseling patient: Coding Level of Care Code None Diagnoses History of right above knee amputation Z89.611
[2021-11-16 06:44] LABS: Basophils # (auto) 0.01 K/uL (0-0.2); Basophils % (auto) 0.1 %; Hematocrit (blood only) 29.6 % (37-47); Hemoglobin 9.3 g/dL (12.0-16.0); Immature Granulocytes # (auto) 0.25 K/uL (0.00-0.02); Immature Granulocytes % (auto) 1.7 %; Lymphocytes # (auto) 1.39 K/uL (1.2-3.4); Lymphocytes % (auto) 9.4 %; Mean Corpuscular Hemoglobin 28.4 pg (25-34); Mean Corpuscular Volume 90.5 fL (80-100); Mean Platelet Volume 11.1 fL (7.4-10.4); Monocytes # (auto) 1.73 K/uL (0.11-0.59); Monocytes % (auto) 11.7 %; Neutrophils # (auto) 11.43 K/uL (1.4-6.5); Neutrophils % (auto) 77.1 %; Nucleated RBC # (auto) 0.04 K/uL (0-0); Nucleated RBC % (auto) 0.3 %; Platelet Count 174 K/uL (130-400); RDW Standard Deviation 51.9 fL (36.4-46.3); Red Blood Count 3.27 M/uL (4.2-5.4); White Blood Count 14.81 K/uL (4.8-10.8)
[2021-11-16 07:33] LABS: Mean Corpuscular Hgb Conc 31.4 g/dL (32-36)
[2021-11-16] MEDS: METOPROLOL TARTRATE 25 MG TAB PO SCH (08:32)
[2021-11-16] MEDS: GABAPENTIN 300 MG CAP PO SCH ×3 (08:32→20:23)
[2021-11-16] MEDS: HYDROCORTISONE SOD 10 MG in SYRINGE 0 ML IV SCH (08:32)
[2021-11-16] MEDS: OXYBUTYNIN CHLORIDE 5 MG TAB PO SCH ×2 (08:33→20:21)
[2021-11-16] MEDS: predniSONE 5 MG TAB PO SCH (08:33)
[2021-11-16] MEDS: AMIODARONE 200 MG TAB PO SCH ×2 (08:33→18:00)
[2021-11-16] MEDS: PANTOprazole 40 MG TAB PO SCH (08:33)
[2021-11-16] MEDS: SENNA 8.6 MG TAB PO PRN (08:33)
[2021-11-16] MEDS: oxyCODONE HCL IR 5 MG TAB (IMMEDIATE RELEASE) PO PRN (09:02)
[2021-11-16] MEDS ORDERED: METOPROLOL TARTRATE 1 MG/ML VIAL IV STA (10:17)
[2021-11-16] MEDS ORDERED: METOPROLOL TARTRATE 1 MG/ML VIAL IV ONE ×2 (10:19→10:49)
[2021-11-16] MEDS ORDERED: METOPROLOL TARTRATE 1 MG/ML VIAL IV PRN (10:43)
[2021-11-16] MEDS ORDERED: Nursing to Pharmacy Communication SCH (10:45)
[2021-11-16] MEDS: APIXABAN 5 MG TABLET PO SCH ×2 (11:22→20:23)
[2021-11-16] MEDS: HYDROmorphone INJ 0.5 MG/0.5 ML SYR IV PRN ×2 (12:09→17:47)
[2021-11-16] MEDS: ONDANSETRON INJ 2 MG/ML 2 ML VIAL IV PRN ×2 (12:09→21:26)
[2021-11-16] MEDS ORDERED: SODIUM CHLORIDE 0.9% 1000ML 250 ML IV ONE (12:32)
[2021-11-16] MEDS ORDERED: METOPROLOL TARTRATE 25 MG TAB PO ONE (12:34)
--- NOTE | 2021-11-16 12:48 | Hospitalist Progress Note ---
Date of Service November 16, 2021 Assessment & Plan (1) Occlusion of stent of peripheral artery: Plan: 71yo female with history of peripheral arterial disease s/p RLE arteriogram with stenting of right SFA performed 11/06/21 returning with RLE thigh and calf pain, pain in the foot with discoloration and pallor. Found to have occluded superficial femoral arterial stent on Doppler as well as posterior tibial arterial occlusion. Admitted on heparin gtt and then taken to OR with Vascular on 11/08--> no occlusion of SFA stent found but had multiple attempts by Vascular intraoperatively to bypass the tibial artery but was not possible due to calcified arteries. With fever, leukocytosis, cellulitis and wounds of foot, ischemic toes/foot Right lower extremity cellulitis with fevers, occlusion of stent of peripheral artery - Fevers now resolved, WBC count back to normal -now s/p above knee amputation 11/[address] Baeza -pain control switched to dilaudid 0.5mg IV q2h PRN -Zofran PRN nausea -antibiotics discontinued per surgery post operatively Remains afebrile, does have leukocytosis in the setting of steroid use. Trend (2) PAF (paroxysmal atrial fibrillation): Plan: - Rapid atrial fibrillation that came on intraoperatively, rates as high as 160s - Now on PCU. -Previously on diltiazem drip and amiodarone drip. Diltiazem drip discontinued and patient continued on amiodarone and oral metoprolol Converted back to NSR, again back in A. fib with RVR 11/15 Metoprolol increased to 100 twice daily with 5 mg IV given for rate control and some improvement. Pending additional 25 mg oral dose to add to morning dose Last echo patient has borderline low/low normal EF, will maximize MTP defer diltiazem if possible Eliquis resumed today for stroke prophylaxis (3) Sepsis: Plan: Now resolved, due to right foot cellulitis with source control by amputation Blood cultures no growth to date Urine culture no growth holding home leflunomide, but remains on Plaquenil-will now HOLD Plaquenil as well until after amputation and wounds healing (4) Ischemic leg pain: Plan: Now resolved s/p amputation (5) Cellulitis: Plan: Right foot ulceration with cellulitis now resolved s/p amputation as noted patient on Tylenol, oxycodone 5 mg p.o. every 6 hours as needed for pain, breakthrough hydromorphone if needed (6) Acute respiratory failure with hypoxia: Plan: has been on 4LNC since admission, now weaned down to 2LNC denies SOB, no cough or CP no chronic lung issues pulmonary edema on CXR 11/10 - continues on repeat CXR today. Patient does have some rate related change, is improving currently down to 2 L Has been of A. fib as above, Lasix as needed once stable (7) Peripheral arterial disease: Plan: With arterial occlusion s/p stenting -as above (8) Rheumatoid arthritis: Plan: Chronic. Stable -hold Plaquenil and leflunomide -Continue Prednisone 5mg po qAM, 1mg po qPM. Patient placed on hydrocortisone on admit for blood pressure/stress dosing. Decreased from 25 to 10 mg yesterday, and down titrated to 5 twice daily today with tolerating pressure May also double in stress dose prednisone if patient worsens (9) Hypertension: Plan: Blood pressure stable -Pain control -Continue Metoprolol -Continue to monitor (10) GERD (gastroesophageal reflux disease): Plan: Chronic. On Omeprazole BID at home -Protonix 40mg po daily (11) Overactive bladder: Plan: Chronic. Controlled on medication -remain on Oxybutynin (12) Steroid dependence: Plan: continue prednisone Plan: Ppx - Eliquis to restart tomorrow per surgery Code - Full Dispo -med/telemetry Admission and Anticipated Discharge Date Admission Date: November 07, 2021 Subjective Seen at bedside this morning. Reports she has been told her heart rate is high, but does not feel this. Has no symptoms from this. Denies lightheadedness, dizziness, chest pain, chest pressure, palpitations, shortness of breath, difficulty breathing. At time of assessment she says her right leg surgical site feels okay and is not causing her pain, per nursing on later reassessment did have some burning pain and being given her ordered hydromorphone. Patient has had A. fib with heart rates in the [id number], jumped to 150s this morning. She is continued on amiodarone. Metoprolol tartrate increased to 100 twice daily, 5 mg metoprolol tartrate IV given with up to 2 doses being repeated pending Review of Systems Review of Systems: All systems reviewed & are unremarkable except as noted in Subjective Physical Exam Physical Exam: General: A&Ox3. NAD. Cooperative. HEENT: Atraumatic, normocephalic. Pulm: CTAB A&P. -wheezes, -rales, -rhonchi. Symmetrical chest rise. No increase in work of breathing. No respiratory distress. Cardiac: Tachycardic, irregular, -mrg. Radial pulses intact and symmetrical. Abdominal: Nontender, nondistended, soft. BS present. Extremities: Right leg status post AKA. Surgical dressing intact C/D/I. Nontender on morning assessment. No signs of bleeding. No tracking erythema/warmth. Results & Data Results & Data ([facility]) Vital Signs (Past 12 Hours) Vital Signs Temp Pulse Pulse Resp BP BP Pulse Ox 11/16/21 11:11 36.8 C 132 H 132 H 18 128/81 128/81 96 11/16/21 10:53 138 H 121/79 11/16/21 10:25 36.6 C 150 H 20 130/82 95 11/16/21 10:21 150 H 130/82 11/16/21 07:25 85 11/16/21 06:47 36.8 C 87 20 135/77 92 11/16/21 03:25 36.7 C 61 20 156/90 H 94 PG Care Time/CCT Total # of Minutes Spent Total Time Spent with Patient: Total time spent is greater than 50% in coordination of care (as documented) at patient's floor/unit and/or counseling patient: Coding Level of Care Code 67525 Subseq Hosp Care Lvl 3 Diagnoses Occlusion of stent of peripheral artery T82.599A PAF (paroxysmal atrial fibrillation) I48.0 Sepsis A41.9 Ischemic leg pain M79.606; I99.8 Cellulitis L03.90 Acute respiratory failure with hypoxia J96.01 Peripheral arterial disease I73.9 Rheumatoid arthritis M06.9 Hypertension I10 GERD (gastroesophageal reflux disease) K21.9 Overactive bladder N32.81 Steroid dependence F19.20
[2021-11-16] MEDS ORDERED: AMIODARONE IV BOLUS & DRIP IV STA (14:23)
[2021-11-16] MEDS ORDERED: STAT IV Infusion **Titration per Protocol STA (14:23)
[2021-11-16] MEDS ORDERED: AMIODARONE / D5W 150 MG/100 ML BAG IV STA (15:23)
[2021-11-16] MEDS ORDERED: 0.2 MICRON FILTER SET 1 EA IV ONE (15:30)
[2021-11-16] MEDS ORDERED: AMIODARONE / D5W 360 MG/200 ML BAG IV ONE (15:33)
[2021-11-16 18:02] LABS: BUN Creatinine Ratio 28.3 (10-20); Creatinine Clr Calc Pharmacy 44.9 ml/min; Est GFR (African American) 65.5 ml/min; Est GFR (Non-African American) 56.5 ml/min; Potassium 4.7 mmol/L (3.5-5.1)
[2021-11-16] MEDS: predniSONE 1 MG TAB PO SCH (20:21)
[2021-11-16] MEDS: METOPROLOL TARTRATE 100 MG TAB PO SCH (20:21)
[2021-11-16] MEDS: MAGNESIUM OXIDE 400 MG TAB PO SCH (20:23)
[2021-11-16] MEDS ORDERED: HYDROCORTISONE SOD 10 MG in SYRINGE 0 ML IV SCH (21:00)
[2021-11-16] MEDS ORDERED: HYDROCORTISONE SOD 5 MG in SYRINGE 0 ML IV SCH (21:00)
[2021-11-16] MEDS ORDERED: AMIODARONE / D5W 360 MG/200 ML BAG IV SCH (21:30)
--- NOTE | 2021-11-17 05:55 | Surgery Progress Note ---
Date of Service November 17, 2021 Assessment & Plan (1) History of right above knee amputation: Plan: Status post right above-knee amputation on 11/14/2021 (postop day #3) Continue pain management measures Anticoagulation has been resumed by the medical service as H&H was stable yesterday As above. Dressings changed today. The wound and leg look great. Continue current care. Admission and Anticipated Discharge Date Admission Date: November 07, 2021 Subjective Patient is resting in bed. She notes her pain is adequately controlled. Physical Exam Physical Exam: Amputation site is covered with dressing that is clean, dry, intact Results & Data ([facility]) Vital Signs (Past 12 Hours) Vital Signs Temp Pulse Pulse Resp BP Pulse Ox 11/17/21 03:00 36.7 C 71 18 111/74 95 11/16/21 23:00 36.6 C 124 H 16 101/64 94 11/16/21 22:20 124 H 11/16/21 19:00 38.0 C H 129 H 16 112/73 91 PG Care Time/CCT Total # of Minutes Spent Total Time Spent with Patient: Total time spent is greater than 50% in coordination of care (as documented) at patient's floor/unit and/or counseling patient: Coding Level of Care Code None Diagnoses History of right above knee amputation Z89.611
[2021-11-17] MEDS: HYDROmorphone INJ 0.5 MG/0.5 ML SYR IV PRN ×3 (07:37→21:41)
[2021-11-17] MEDS: AMIODARONE 200 MG TAB PO SCH ×2 (07:40→17:27)
[2021-11-17] MEDS: predniSONE 5 MG TAB PO SCH (08:25)
[2021-11-17] MEDS: PANTOprazole 40 MG TAB PO SCH (08:26)
[2021-11-17] MEDS: OXYBUTYNIN CHLORIDE 5 MG TAB PO SCH ×2 (08:26→20:41)
[2021-11-17] MEDS: METOPROLOL TARTRATE 100 MG TAB PO SCH ×2 (08:26→20:40)
[2021-11-17] MEDS: GABAPENTIN 300 MG CAP PO SCH ×3 (08:26→20:40)
[2021-11-17] MEDS: APIXABAN 5 MG TABLET PO SCH ×2 (08:27→20:41)
[2021-11-17] MEDS: SENNA 8.6 MG TAB PO PRN (08:28)
--- NOTE | 2021-11-17 09:09 | XRay Report ---
XR chest 1V portable HISTORY: effusion COMPARISON: Chest 11/15/2021. FINDINGS: Mild interstitial pulmonary edema has improved. Small bilateral pleural effusions and bibas ilar densities persist. The heart is mildly enlarged. No pneumothorax. Advanced degenerative changes again noted within the shoulders. Partially visualized lumbar spinal fusion hardware. IMPRESSION: 1. Mild interstitial pulmonary edema which has improved. 2. Small bilateral pleural effusions and bibasilar densities persist. ACT 112: Negative or not required by law. Electronically signed by: Jez Mckay M.D. 11/17/2021 9:07 AM
[2021-11-17] MEDS: oxyCODONE HCL IR 5 MG TAB (IMMEDIATE RELEASE) PO PRN ×2 (09:54→17:09)
--- NOTE | 2021-11-17 10:06 | Electrocardiogram Report ---
Test Reason : Blood Pressure : / mmHG Vent. Rate : 137 BPM Atrial Rate : 127 BPM P-R Int : 000 ms QRS Dur : 080 ms QT Int : 306 ms P-R-T Axes : 000 020 203 degrees QTc Int : 462 ms Atrial flutter with rapid ventricular response with premature ventricular or aberrantly conducted com plexes Nonspecific T wave abnormality Abnormal ECG When compared with ECG of 14-NOV-2021 04:46, Vent. rate has increased BY 58 BPM Nonspecific T wave abnormality is more prominent Confirmed by Soham Watt ([id number]) on 11/17/2021 10:05:46 AM Referred By: REFERRED SELF Confirmed By:Soham Watt
--- NOTE | 2021-11-17 11:59 | Hospitalist Progress Note ---
Date of Service November 17, 2021 Assessment & Plan (1) Occlusion of stent of peripheral artery: Plan: 71yo female with history of peripheral arterial disease s/p RLE arteriogram with stenting of right SFA performed 11/06/21 returning with RLE thigh and calf pain, pain in the foot with discoloration and pallor. Found to have occluded superficial femoral arterial stent on Doppler as well as posterior tibial arterial occlusion. Admitted on heparin gtt and then taken to OR with Vascular on 11/08--> no occlusion of SFA stent found but had multiple attempts by Vascular intraoperatively to bypass the tibial artery but was not possible due to calcified arteries. With fever, leukocytosis, cellulitis and wounds of foot, ischemic toes/foot Right lower extremity cellulitis with fevers, occlusion of stent of peripheral artery - Fevers now resolved -now s/p above knee amputation 11/[address] Baeza -pain control switched to dilaudid 0.5mg IV q2h PRN -Zofran PRN nausea -antibiotics discontinued per surgery post operatively Remains afebrile, does have leukocytosis in the setting of steroid use. Trend -Patient heart rate now controlled. No signs of infection. PT/OT reassessment pending, if remains stable on oral amiodarone and rate control--> placement anticipate SNF (2) PAF (paroxysmal atrial fibrillation): Plan: - Rapid atrial fibrillation that came on intraoperatively, rates as high as 160s - Now on PCU. -Previously on diltiazem drip and amiodarone drip. Diltiazem drip discontinued and patient continued on amiodarone and oral metoprolol Converted back to NSR, again back in A. fib with RVR 11/15 Last echo patient has borderline low/low normal EF, will maximize MTP defer diltiazem if possible Eliquis resumed 11/16 for stroke prophylaxis Patient was reloaded with IV amiodarone with subsequent conversion to sinus rhythm, regular rate this morning. Continue oral amio. Potassium/magnesium normal (3) Sepsis: Plan: Now resolved, due to right foot cellulitis with source control by amputation Blood cultures no growth to date Urine culture no growth holding home leflunomide, but remains on Plaquenil-will now HOLD Plaquenil as well until after amputation and wounds healing (4) Ischemic leg pain: Plan: Now resolved s/p amputation (5) Cellulitis: Plan: Right foot ulceration with cellulitis, resolved s/p amputation as noted patient on Tylenol, oxycodone 5 mg p.o. every 6 hours as needed for pain, breakthrough hydromorphone if needed (6) Acute respiratory failure with hypoxia: Plan: has been on 4LNC since admission, now weaned down to 1.5 denies SOB, no cough or CP no chronic lung issues Suspect some rate related pulmonary edema, back in sinus rhythm and clinically i mproving Lasix dose x1, continue to wean (7) Peripheral arterial disease: Plan: With arterial occlusion s/p stenting -as above (8) Rheumatoid arthritis: Plan: Chronic. Stable -hold Plaquenil and leflunomide -Continue Prednisone 5mg po qAM, 1mg po qPM. Patient placed on hydrocortisone on admit for blood pressure/stress dosing. Decreased from 25 to 10 mg 11/15 then d/jesica with stable pressure 11/17 (9) Hypertension: Plan: Blood pressure stable -Pain control -Continue Metoprolol -Continue to monitor (10) GERD (gastroesophageal reflux disease): Plan: Chronic. On Omeprazole BID at home -Protonix 40mg po daily (11) Overactive bladder: Plan: Chronic. Controlled on medication -remain on Oxybutynin (12) Steroid dependence: Plan: continue prednisone Plan: Ppx - Eliquis restarted Code - Full Dispo Tele, downgrade if HR remains stable/sinus Admission and Anticipated Discharge Date Admission Date: November 07, 2021 Subjective Seen at bedside. Feels globally weak, similar to previous. Has not felt any palpitations, chest pain, chest pressure, shortness of breath today. Is aware that her rhythm converted to normal sinus again overnight. Denies bleeding. No burning at her surgical site, reports dressing was changed today and had no signs of infection. Does report she had a little bit of swelling in her left arm which is improved today, no erythema/warmth/tenderness Review of Systems Review of Systems: All systems reviewed & are unremarkable except as noted in Subjective Physical Exam Physical Exam: General: A&Ox3. NAD. Cooperative. HEENT: Atraumatic, normocephalic. Vision and hearing grossly intact. Pulm: CTAB A&P. -wheezes, -rales, -rhonchi. Symmetrical chest rise. No increase in work of breathing. No respiratory distress. Cardiac: Tachycardic, irregular, -mrg. Radial pulses intact and symmetrical. Abdominal: Nontender, nondistended, soft. BS present. Extremities: Right leg status post AKA. Surgical dressing intact C/D/I. Nontender on morning assessment. No signs of bleeding. No tracking erythema/warmth. Right upper extremity trace gravity dependent edema, no overlying warmth/tenderness/crepitus Results & Data Results & Data ([facility]) Vital Signs (Past 12 Hours) Vital Signs Temp Pulse Pulse Resp BP Pulse Ox 11/17/21 08:00 73 11/17/21 07:09 36.7 C 71 20 159/78 H 93 11/17/21 03:00 36.7 C 71 18 111/74 95 PG Care Time/CCT Total # of Minutes Spent Total Time Spent with Patient: Total time spent is greater than 50% in coordination of care (as documented) at patient's floor/unit and/or counseling patient: Coding Level of Care Code 23767 Subseq Hosp Care Lvl 2 Diagnoses Occlusion of stent of peripheral artery T82.599A PAF (paroxysmal atrial fibrillation) I48.0 Sepsis A41.9 Ischemic leg pain M79.606; I99.8 Cellulitis L03.90 Acute respiratory failure with hypoxia J96.01 Peripheral arterial disease I73.9 Rheumatoid arthritis M06.9 Hypertension I10 GERD (gastroesophageal reflux disease) K21.9 Overactive bladder N32.81 Steroid dependence F19.20
[2021-11-17 12:24] LABS: Basophils # (auto) 0.01 K/uL (0-0.2); Basophils % (auto) 0.1 %; Eosinophils # (auto) 0.07 K/uL (0-0.5); Eosinophils % (auto) 0.5 %; Hematocrit (blood only) 30.2 % (37-47); Hemoglobin 9.5 g/dL (12.0-16.0); Immature Granulocytes # (auto) 0.25 K/uL (0.00-0.02); Immature Granulocytes % (auto) 1.9 %; Lymphocytes # (auto) 0.82 K/uL (1.2-3.4); Lymphocytes % (auto) 6.2 %; Mean Corpuscular Hemoglobin 28.4 pg (25-34); Mean Corpuscular Hgb Conc 31.5 g/dL (32-36); Mean Corpuscular Volume 90.4 fL (80-100); Monocytes # (auto) 1.26 K/uL (0.11-0.59); Monocytes % (auto) 9.5 %; Neutrophils # (auto) 10.83 K/uL (1.4-6.5); Neutrophils % (auto) 81.8 %; Platelet Count 221 K/uL (130-400); RDW Coefficient of Variation 15.9 % (11.5-14.5); RDW Standard Deviation 52.5 fL (36.4-46.3); Red Blood Count 3.34 M/uL (4.2-5.4); White Blood Count 13.24 K/uL (4.8-10.8)
[2021-11-17 12:43] LABS: BUN Creatinine Ratio 29.8 (10-20); Calcium 8.1 mg/dl (8.5-10.1); Creatinine Clr Calc Pharmacy 42.3 ml/min; Est GFR (African American) 61.7 ml/min; Est GFR (Non-African American) 53.3 ml/min; Magnesium 2.1 mg/dl (1.7-2.4); Potassium 5.4 mmol/L (3.5-5.1)
[2021-11-17] MEDS ORDERED: FUROSEMIDE INJ 20 MG/2 ML VIAL IV ONE (16:22)
[2021-11-17] MEDS ORDERED: AMIODARONE 200 MG TAB PO SCH (17:45)
[2021-11-17] MEDS: MAGNESIUM OXIDE 400 MG TAB PO SCH (20:40)
[2021-11-17] MEDS: predniSONE 1 MG TAB PO SCH (20:40)
[2021-11-18] MEDS: oxyCODONE HCL IR 5 MG TAB (IMMEDIATE RELEASE) PO PRN (05:30)
[2021-11-18 07:50] LABS: Basophils # (auto) 0.01 K/uL (0-0.2); Basophils % (auto) 0.1 %; Eosinophils # (auto) 0.23 K/uL (0-0.5); Eosinophils % (auto) 1.9 %; Hematocrit (blood only) 28.5 % (37-47); Hemoglobin 9.1 g/dL (12.0-16.0); Immature Granulocytes # (auto) 0.26 K/uL (0.00-0.02); Immature Granulocytes % (auto) 2.2 %; Lymphocytes # (auto) 1.41 K/uL (1.2-3.4); Lymphocytes % (auto) 11.8 %; Mean Corpuscular Hemoglobin 28.6 pg (25-34); Mean Corpuscular Hgb Conc 31.9 g/dL (32-36); Mean Corpuscular Volume 89.6 fL (80-100); Mean Platelet Volume 10.5 fL (7.4-10.4); Monocytes # (auto) 1.35 K/uL (0.11-0.59); Monocytes % (auto) 11.3 %; Neutrophils # (auto) 8.71 K/uL (1.4-6.5); Neutrophils % (auto) 72.7 %; Nucleated RBC # (auto) 0.03 K/uL (0-0); Nucleated RBC % (auto) 0.2 %; Platelet Count 284 K/uL (130-400); RDW Coefficient of Variation 15.8 % (11.5-14.5); RDW Standard Deviation 51.4 fL (36.4-46.3); Red Blood Count 3.18 M/uL (4.2-5.4); White Blood Count 11.97 K/uL (4.8-10.8)
--- NOTE | 2021-11-18 07:52 | Surgery Progress Note ---
Date of Service November 18, 2021 Assessment & Plan (1) History of right above knee amputation: Plan: POD #4 the operative field is healing well Apply 4 x 4 and Son bandage and change as needed basis Lab noted Main issue is pain control spasm We will ask physical therapy to see patient to aid in transfer to chair We will DC the Chan catheter Patient would benefit from rehab we will ask social service to see patient Once pain is controlled with oral analgesics the patient can be discharged which I was expecting next 2 or 3 days most Admission and Anticipated Discharge Date Admission Date: November 07, 2021 Subjective Patient resting comfortably although she is experiencing spasm in the operative field Chan catheter still in place She has not been out of bed Physical Exam Physical Exam: She is alert coherent complaining of pain in the right thigh area like a charley horse The dressing in the operative field was removed the operative site is healing well there is no redness no drainage no cellulitis jorge all intact Results & Data ([facility]) Vital Signs (Past 12 Hours) Vital Signs Temp Pulse Pulse Resp BP Pulse Ox 11/18/21 07:39 36.6 C 72 16 132/70 95 11/18/21 07:36 69 11/18/21 05:14 36.9 C 68 18 165/72 H 96 11/17/21 23:21 36.8 C 71 16 132/72 94 11/17/21 22:20 70 PG Care Time/CCT Total # of Minutes Spent Total Time Spent with Patient: Total time spent is greater than 50% in coordination of care (as documented) at patient's floor/unit and/or counseling patient: Coding Level of Care Code None Diagnoses History of right above knee amputation Z89.611
[2021-11-18 08:19] LABS: BUN Creatinine Ratio 32.7 (10-20); Creatinine Clr Calc Pharmacy 44.9 ml/min; Est GFR (African American) 66.3 ml/min; Est GFR (Non-African American) 57.2 ml/min; Potassium 4.6 mmol/L (3.5-5.1)
[2021-11-18] MEDS: GABAPENTIN 300 MG CAP PO SCH ×3 (08:41→20:24)
[2021-11-18] MEDS: APIXABAN 5 MG TABLET PO SCH ×2 (08:41→20:24)
[2021-11-18] MEDS: METOPROLOL TARTRATE 100 MG TAB PO SCH ×2 (08:41→20:25)
[2021-11-18] MEDS: OXYBUTYNIN CHLORIDE 5 MG TAB PO SCH ×2 (08:41→20:26)
[2021-11-18] MEDS: SENNA 8.6 MG TAB PO PRN (08:42)
[2021-11-18] MEDS: AMIODARONE 200 MG TAB PO SCH ×2 (08:42→17:39)
[2021-11-18] MEDS: predniSONE 5 MG TAB PO SCH (08:42)
[2021-11-18] MEDS: PANTOprazole 40 MG TAB PO SCH (08:42)
[2021-11-18] MEDS: CALCITRIOL 0.25 MCG CAPSULE PO SCH (08:42)
[2021-11-18] MEDS: HYDROmorphone INJ 0.5 MG/0.5 ML SYR IV PRN ×2 (11:29→17:39)
--- NOTE | 2021-11-18 13:22 | Hospitalist Progress Note ---
Date of Service November 18, 2021 Assessment & Plan (1) Occlusion of stent of peripheral artery: Plan: 71yo female with history of peripheral arterial disease s/p RLE arteriogram with stenting of right SFA performed 11/06/21 returning with RLE thigh and calf pain, pain in the foot with discoloration and pallor. Found to have occluded superficial femoral arterial stent on Doppler as well as posterior tibial arterial occlusion. Admitted on heparin gtt and then taken to OR with Vascular on 11/08--> no occlusion of SFA stent found but had multiple attempts by Vascular intraoperatively to bypass the tibial artery but was not possible due to calcified arteries. With fever, leukocytosis, cellulitis and wounds of foot, ischemic toes/foot Right lower extremity cellulitis with fevers, occlusion of stent of peripheral artery - Fevers now resolved -now s/p above knee amputation 11/[address] Baeza -pain control switched to dilaudid 0.5mg IV q2h PRN -Zofran PRN nausea -antibiotics discontinued per surgery post operatively Remains afebrile, does have leukocytosis in the setting of steroid use. Trend - Dc to SNF when rate controlled (2) PAF (paroxysmal atrial fibrillation): Plan: - Rapid atrial fibrillation that came on intraoperatively, rates as high as 160s - Now on PCU. -Previously on diltiazem drip and amiodarone drip. Diltiazem drip discontinued and patient continued on amiodarone and oral metoprolol Converted back to NSR, again back in A. fib with RVR 11/15 Last echo patient has borderline low/low normal EF, will maximize MTP defer diltiazem if possible Eliquis resumed 11/16 for stroke prophylaxis In afternoon patient again converted into A. fib with RVR. Patient had undergone to IV amiodarone loads with second load overlapping p.o. dosing. Has been continued on amiodarone 200 mg twice daily. Defer increasing this further. Given paroxysmal A. fib recommend adding rate control with digoxin. Metoprolol is increased already to 100 mg twice daily, would not recommend diltiazem given borderline low EF. Discussed with cardiology in agreement, will dig load with level in the morning and p.o. starting tomorrow. (3) Sepsis: Plan: Now resolved, due to right foot cellulitis with source control by amputation Blood cultures no growth to date Urine culture no growth holding home leflunomide, but remains on Plaquenil-will now HOLD Plaquenil as well until after amputation and wounds healing (4) Ischemic leg pain: Plan: Now resolved s/p amputation (5) Cellulitis: Plan: Right foot ulceration with cellulitis, resolved s/p amputation as noted patient on Tylenol, oxycodone 5 mg p.o. every 6 hours as needed for pain, breakthrough hydromorphone if needed (6) Acute respiratory failure with hypoxia: Plan: has been on 4LNC since admission, now weaned down to 1.5 denies SOB, no cough or CP no chronic lung issues Suspect some rate related pulmonary edema, back in sinus rhythm and clinically improving Recieved lasix x1 yesterday. Labs prerenal, continue to follow with rate control above and my trial lasix again if doing well (7) Peripheral arterial disease: Plan: With arterial occlusion s/p stenting -as above (8) Rheumatoid arthritis: Plan: Chronic. Stable -hold Plaquenil and leflunomide -Continue Prednisone 5mg po qAM, 1mg po qPM. Patient placed on hydrocortisone on admit for blood pressure/stress dosing. Decreased from 25 to 10 mg 11/15 then d/jesica with stable pressure 11/17 (9) Hypertension: Plan: Blood pressure stable -Pain control -Continue Metoprolol -Continue to monitor (10) GERD (gastroesophageal reflux disease): Plan: Chronic. On Omeprazole BID at home -Protonix 40mg po daily (11) Overactive bladder: Plan: Chronic. Controlled on medication -remain on Oxybutynin (12) Steroid dependence: Plan: continue prednisone Plan: Ppx - Eliquis restarted Code - Full Dispo Tele, downgrade if HR remains stable/sinus Admission and Anticipated Discharge Date Admission Date: November 07, 2021 Subjective Seen at bedside in the morning. At morning assessment patient with pain when stretching at her amputation site, otherwise feeling weak but okay. Denies fever, chills, sweats, palpitations, lightheadedness, dizziness, shortness of breath. On 1 L nasal cannula. In afternoon patient again converted into A. fib with RVR. Patient had undergone to IV amiodarone loads with second load overlapping p.o. dosing. Has been continued on amiodarone 200 mg twice daily. Defer increasing this further. Given paroxysmal A. fib recommend adding rate control with digoxin. Metoprolol is increased already to 100 mg twice daily, would not recommend diltiazem given borderline low EF. Discussed with cardiology in agreement, will dig load with level in the morning and p.o. starting tomorrow. If rate adequately controlled may continue to pursue rehab/discharge goals at that time. Is continued on anticoagulation. Review of Systems Review of Systems: All systems reviewed & are unremarkable except as noted in Subjective Physical Exam Physical Exam: General: A&Ox3. NAD. Cooperative. HEENT: Atraumatic, normocephalic. Vision and hearing grossly intact. Pulm: CTAB A&P. -wheezes, -rales, -rhonchi. Symmetrical chest rise. No increase in work of breathing. No respiratory distress. Cardiac: Regular rate and rhythm -mrg. Radial pulses intact and symmetrical. Abdominal: Nontender, nondistended, soft. BS present. Extremities: Right leg status post AKA. Surgical dressing intact C/D/I. Nontender on morning assessment. No signs of bleeding. No tracking erythema/warmth. Right upper extremity trace gravity dependent edema, no overlying warmth/tenderness/crepitus Update: Afternoon reassessment: Irregular, tachycardic rhythm with normal blood pressure Results & Data Results & Data ([facility]) Vital Signs (Past 12 Hours) Vital Signs Temp Pulse Pulse Resp BP Pulse Ox 11/18/21 12:13 37.2 C 72 15 137/84 93 11/18/21 07:39 36.6 C 72 16 132/70 95 11/18/21 07:36 69 11/18/21 05:14 36.9 C 68 18 165/72 H 96 PG Care Time/CCT Total # of Minutes Spent Total Time Spent with Patient: Total time spent is greater than 50% in coordination of care (as documented) at patient's floor/unit and/or counseling patient: Coding Level of Care Code 94073 Subseq Hosp Care Lvl 2 Diagnoses Occlusion of stent of peripheral artery T82.599A PAF (paroxysmal atrial fibrillation) I48.0 Sepsis A41.9 Ischemic leg pain M79.606; I99.8 Cellulitis L03.90 Acute respiratory failure with hypoxia J96.01 Peripheral arterial disease I73.9 Rheumatoid arthritis M06.9 Hypertension I10 GERD (gastroesophageal reflux disease) K21.9 Overactive bladder N32.81 Steroid dependence F19.20
[2021-11-18] MEDS ORDERED: DIGOXIN 250 MCG in SYRINGE 9 ML IV ONE ×2 (13:30→15:00)
[2021-11-18] MEDS ORDERED: bisacodyL 5 MG TABEC PO PRN (18:18)
[2021-11-18] MEDS ORDERED: MAGNESIUM HYDROXIDE SUSP 30 ML UDC PO PRN (18:18)
[2021-11-18] MEDS ORDERED: POLYETHYLENE (MIRALAX) 17 GM PACK PO PRN (18:18)
[2021-11-18] MEDS ORDERED: DIGOXIN 125 MCG in SYRINGE 9.5 ML IV ONE (18:30)
[2021-11-18] MEDS: MAGNESIUM OXIDE 400 MG TAB PO SCH (20:24)
[2021-11-18] MEDS: predniSONE 1 MG TAB PO SCH (20:26)
[2021-11-19] MEDS: oxyCODONE HCL IR 5 MG TAB (IMMEDIATE RELEASE) PO PRN ×2 (03:32→10:35)
--- NOTE | 2021-11-19 06:54 | Surgery Progress Note ---
Date of Service November 19, 2021 Assessment & Plan (1) History of right above knee amputation: Plan: POD#5 status post right above-knee amputation Instructed patient that she may want to keep a dressing on the site no real reason to do so unless it bothers her moving around the area can be washed over with soap and water pat it dry I did remind her that we leave the jorge in a long time making sure that with her transfer does not traumatize the incision Sparse discharge we will leave it up to the medical service whenever they feel comfortable we will see her back in the office approximately 2 weeks We will DC lauryn Chan this morning Admission and Anticipated Discharge Date Admission Date: November 07, 2021 Subjective Did not sleep well last night for no real reason the pain and amputation site is controlled with oral analgesia occasionally IV analgesic Yesterday she was able to transfer with the help of physical therapy at the bedside Physical Exam Physical Exam: Comfortable this morning in no distress No real agitation as she has been off and on in the past The amputation site is healing well there is no drainage the jorge are all intact there is no cellulitis she has a dressing on the site but no drainage noted on the dressing Results & Data ([facility]) Vital Signs (Past 12 Hours) Vital Signs Temp Pulse Pulse Resp BP Pulse Ox 11/19/21 03:34 36.8 C 110 H 20 182/72 H 92 11/18/21 23:53 36.8 C 109 H 18 164/81 H 95 11/18/21 22:51 109 H 11/18/21 19:44 122 H 11/18/21 19:16 36.7 C 127 H 18 136/70 93 Laboratory Results noted PG Care Time/CCT Total # of Minutes Spent Total Time Spent with Patient: Total time spent is greater than 50% in coordination of care (as documented) at patient's floor/unit and/or counseling patient: Coding Level of Care Code None Diagnoses History of right above knee amputation Z89.611
[2021-11-19] MEDS: HYDROmorphone INJ 0.5 MG/0.5 ML SYR IV PRN ×2 (08:32→14:23)
[2021-11-19] MEDS: APIXABAN 5 MG TABLET PO SCH ×2 (08:38→20:19)
[2021-11-19] MEDS: AMIODARONE 200 MG TAB PO SCH ×2 (08:38→17:23)
[2021-11-19] MEDS: GABAPENTIN 300 MG CAP PO SCH ×3 (08:38→20:17)
[2021-11-19] MEDS: METOPROLOL TARTRATE 100 MG TAB PO SCH ×2 (08:39→20:18)
[2021-11-19] MEDS: predniSONE 5 MG TAB PO SCH (08:39)
[2021-11-19] MEDS: PANTOprazole 40 MG TAB PO SCH (08:39)
[2021-11-19] MEDS: OXYBUTYNIN CHLORIDE 5 MG TAB PO SCH ×2 (08:39→20:18)
--- NOTE | 2021-11-19 13:03 | Hospitalist Progress Note ---
Date of Service November 19, 2021 Assessment & Plan (1) Occlusion of stent of peripheral artery: Plan: 71yo female with history of peripheral arterial disease s/p RLE arteriogram with stenting of right SFA performed 11/06/21 returning with RLE thigh and calf pain, pain in the foot with discoloration and pallor. Found to have occluded superficial femoral arterial stent on Doppler as well as posterior tibial arterial occlusion. Admitted on heparin gtt and then taken to OR with Vascular on 11/08--> no occlusion of SFA stent found but had multiple attempts by Vascular intraoperatively to bypass the tibial artery but was not possible due to calcified arteries. With fever, leukocytosis, cellulitis and wounds of foot, ischemic toes/foot Right lower extremity cellulitis with fevers, occlusion of stent of peripheral artery - Fevers now resolved -now s/p above knee amputation 11/[address] Baeza -pain control switched to dilaudid 0.5mg IV q2h PRN -Zofran PRN nausea -antibiotics discontinued per surgery post operatively Remains afebrile, does have leukocytosis in the setting of steroid use. Trend - Dc to SNF when rate controlled (2) PAF (paroxysmal atrial fibrillation): Plan: - Rapid atrial fibrillation that came on intraoperatively, rates as high as 160s - Now on PCU. -Previously on diltiazem drip and amiodarone drip. Diltiazem drip discontinued and patient continued on amiodarone and oral metoprolol Converted back to NSR, again back in A. fib with RVR 11/15 Last echo patient has borderline low/low normal EF, will maximize MTP defer diltiazem if possible Eliquis resumed 11/16 for stroke prophylaxis - In afternoon 11/18 patient again converted into A. fib with RVR. Patient had undergone to IV amiodarone loads with second load overlapping p.o. dosing. Has been continued on amiodarone 200 mg twice daily. Defer increasing this further. Given paroxysmal A. fib recommend adding rate control with digoxin. Metoprolol is increased already to 100 mg twice daily, would not recommend diltiazem given borderline low EF. Discussed with cardiology Patient remains irregularly irregular and tachycardic, but with downtrending rates now consistently 1001 10. Dig level slightly high at 2.1. We will continue with oral digoxin this afternoon, MTP tartrate 100mg BID, Amiodarone 200mg BID, and follow rates. SpO2 req stable. WBC 11.9, NLR 6.2. WBC in setting of steroids, although back to baseline dosing. No evidence of cellulitis. PCT/CRP AM with CRP . paco Clark for UTI sx none @ assessment (3) Sepsis: Plan: Now resolved, due to right foot cellulitis with source control by amputation Blood cultures no growth to date Urine culture no growth holding home leflunomide, but remains on Plaquenil-will now HOLD Plaquenil as well until after amputation and wounds healing (4) Ischemic leg pain: Plan: Now resolved s/p amputation (5) Cellulitis: Plan: Right foot ulceration with cellulitis, resolved s/p amputation as noted patient on Tylenol, oxycodone 5 mg p.o. every 6 hours as needed for pain, breakthrough hydromorphone if needed (6) Acute respiratory failure with hypoxia: Plan: has been on 4LNC since admission, weaning and at 1L denies SOB, no cough or CP no chronic lung issues Suspect some rate related pulmonary edema, back in sinus rhythm and clinically improving Recieved lasix 11/17. Labs prerenal, continue to follow with rate control above and my trial lasix again if doing well (7) Peripheral arterial disease: Plan: With arterial occlusion s/p stenting -as above (8) Rheumatoid arthritis: Plan: Chronic. Stable -hold Plaquenil and leflunomide -Continue Prednisone 5mg po qAM, 1mg po qPM. Patient placed on hydrocortisone on admit for blood pressure/stress dosing. Decreased from 25 to 10 mg 11/15 then d/jesica with stable pressure 11/17 (9) Hypertension: Plan: Blood pressure stable -Pain control -Continue Metoprolol -Continue to monitor (10) GERD (gastroesophageal reflux disease): Plan: Chronic. On Omeprazole BID at home -Protonix 40mg po daily (11) Overactive bladder: Plan: Chronic. Controlled on medication -remain on Oxybutynin (12) Steroid dependence: Plan: continue prednisone Plan: Ppx - Eliquis restarted Code - Full Dispo Telecarlene if HR remains stable/sinus Admission and Anticipated Discharge Date Admission Date: November 07, 2021 Subjective Seen at bedside this morning. Patient reports she had a rough night and was tired, and could not stop thinking about the difficulty of getting stronger. Denies chest pain, chest pressure, palpitations. Endorses anxiety. Denies nausea/diarrhea/shortness of breath/difficulty breathing/fever/chills. Pain is generally well controlled at her amputation site, this does ache with stretching and certain movements but is generally well controlled at rest Review of Systems Review of Systems: All systems reviewed & are unremarkable except as noted in Subjective Physical Exam Physical Exam: General: A&Ox3. NAD. Cooperative. HEENT: Atraumatic, normocephalic. Vision and hearing grossly intact. Pulm: CTAB A&P. -wheezes, -rales, -rhonchi. Symmetrical chest rise. No increase in work of breathing. No respiratory distress. Cardiac: irir, tachy ~100-110 -mrg. Radial pulses intact and symmetrical. Abdominal: Nontender, nondistended, soft. BS present. Extremities: Right leg status post AKA. Surgical wrap intact. Results & Data Results & Data ([facility]) Vital Signs (Past 12 Hours) Vital Signs Temp Pulse Pulse Resp BP Pulse Ox 11/19/21 11:16 37.2 C 108 H 16 150/76 H 95 11/19/21 06:55 36.9 C 112 H 16 151/69 H 95 11/19/21 06:08 132 H 11/19/21 03:34 36.8 C 110 H 20 182/72 H 92 PG Care Time/CCT Total # of Minutes Spent Total Time Spent with Patient: Total time spent is greater than 50% in coordination of care (as documented) at patient's floor/unit and/or counseling patient: Coding Level of Care Code 15618 Subseq Hosp Care Lvl 2 Diagnoses Occlusion of stent of peripheral artery T82.599A PAF (paroxysmal atrial fibrillation) I48.0 Sepsis A41.9 Ischemic leg pain M79.606; I99.8 Cellulitis L03.90 Acute respiratory failure with hypoxia J96.01 Peripheral arterial disease I73.9 Rheumatoid arthritis M06.9 Hypertension I10 GERD (gastroesophageal reflux disease) K21.9 Overactive bladder N32.81 Steroid dependence F19.20
[2021-11-19] MEDS ORDERED: DIGOXIN 0.25 MG TAB PO SCH (16:00)
[2021-11-19] MEDS: predniSONE 1 MG TAB PO SCH (20:17)
[2021-11-19] MEDS: MAGNESIUM OXIDE 400 MG TAB PO SCH (20:18)
[2021-11-20] MEDS: oxyCODONE HCL IR 5 MG TAB (IMMEDIATE RELEASE) PO PRN ×2 (00:09→08:18)
--- NOTE | 2021-11-20 06:18 | Surgery Progress Note ---
Date of Service November 20, 2021 Assessment & Plan (1) History of right above knee amputation: Plan: POD#6 status post right above-knee amputation From my point of view the patient can be discharged anytime with follow-up in the office approximately 2 weeks The operative site can be washed daily reapply a dressing only if it feels more comfortable with that on otherwise does not need one All question answered POD#5 status post right above-knee amputation Instructed patient that she may want to keep a dressing on the site no real reason to do so unless it bothers her moving around the area can be washed over with soap and water pat it dry I did remind her that we leave the jorge in a long time making sure that with her transfer does not traumatize the incision Sparse discharge we will leave it up to the medical service whenever they feel comfortable we will see her back in the office approximately 2 weeks We will DC the Chan this morning Admission and Anticipated Discharge Date Admission Date: November 07, 2021 Subjective No complaints had a good day yesterday no pain at the amputation site except with slight movement Chan catheter came out yesterday voiding without any issues awaiting disposition for rehab Pain pills are enough to control her discomfort Physical Exam Physical Exam: Alert coherent laying comfortably in bed The right AK amputation site healing well incision without any redness jorge intact no drainage on dressing patient able to elevate it without difficulty or discomfort Results & Data ([facility]) Vital Signs (Past 12 Hours) Vital Signs Temp Pulse Resp BP Pulse Ox 11/20/21 03:42 36.8 C 123 H 18 171/94 H 92 11/19/21 22:50 37.0 C 117 H 16 165/91 H 93 11/19/21 19:17 36.8 C 111 H 17 140/85 92 PG Care Time/CCT Total # of Minutes Spent Total Time Spent with Patient: Total time spent is greater than 50% in coordination of care (as documented) at patient's floor/unit and/or counseling patient: Coding Level of Care Code None Diagnoses History of right above knee amputation Z89.611
--- NOTE | 2021-11-20 07:41 | Hospitalist Progress Note ---
Date of Service November 20, 2021 Assessment & Plan (1) Occlusion of stent of peripheral artery: Plan: 71yo female with history of peripheral arterial disease s/p RLE arteriogram with stenting of right SFA performed 11/06/21 returning with occluded superficial femoral arterial stent on Doppler as well as posterior tibial arterial occlusion. Admitted on heparin gtt and then taken to OR with Vascular on 11/08--> no occlusion of SFA stent found but had multiple attempts by Vascular intraoperatively to bypass the tibial artery but was not possible due to calcified arteries. With fever, leukocytosis, cellulitis and wounds of foot, ischemic toes/foot s/p above knee amputation 11/[address] Baeza -pain control switched to dilaudid 0.5mg IV q2h PRN -Zofran PRN nausea -antibiotics discontinued per surgery post operatively Remains afebrile, does have leukocytosis in the setting of steroid use. - Dc to SNF when rate controlled (2) PAF (paroxysmal atrial fibrillation): Plan: - Rapid atrial fibrillation that came on intraoperatively, rates as high as 160s - challenging rate control now on digoxin, amiodarone and increased metoprolol, not unstable but more rapid rate Last echo patient has borderline low/low normal EF, will maximize MTP defer diltiazem if possible Eliquis resumed 11/16 for stroke prophylaxis -will discuss with cardiology if increased dose of metoprolol is ineffective (3) Sepsis: Plan: Now resolved, due to right foot cellulitis with source control by amputation Blood cultures no growth to date Urine culture no growth holding home leflunomide, but remains on Plaquenil-will now HOLD Plaquenil as well until after amputation and wounds healing (4) Ischemic leg pain: Plan: Now resolved s/p amputation (5) Cellulitis: Plan: Right foot ulceration with cellulitis, resolved s/p amputation as noted patient on Tylenol, oxycodone 5 mg p.o. every 6 hours as needed for pain, breakthrough hydromorphone if needed (6) Acute respiratory failure with hypoxia: Plan: has been on 4LNC since admission, weaning and at 1L denies SOB, no cough or CP no chronic lung issues (7) Peripheral arterial disease: Plan: With arterial occlusion s/p stenting -as above (8) Rheumatoid arthritis: Plan: Chronic. Stable -hold Plaquenil and leflunomide -Continue Prednisone 5mg po qAM, 1mg po qPM. Patient placed on hydrocortisone on admit for blood pressure/stress dosing. Decreased from 25 to 10 mg 11/15 then d/jesica with stable pressure 11/17 (9) Hypertension: Plan: Blood pressure stable -Pain control -Continue Metoprolol -Continue to monitor (10) GERD (gastroesophageal reflux disease): Plan: Chronic. On Omeprazole BID at home -Protonix 40mg po daily (11) Overactive bladder: Plan: Chronic. Controlled on medication -remain on Oxybutynin (12) Steroid dependence: Plan: continue prednisone Plan: Ppx - Eliquis restarted Code - Full Dispo Tele, dc if HR remains stable/sinus Admission and Anticipated Discharge Date Admission Date: November 07, 2021 Subjective pt has good control of surgical pain, and phantom pain, did have some Left flank pain that resolved by my arrival and right wrist arthritic pain, pt denies h/p renal colic and no clinical signs of Shingles Review of Systems Review of Systems: Mild distress and fatigue no headache, no visual changes no speech or swallowing issues no chest pain, pressure or palpitations no shortness of breath, cough or wheezes left sided sharp and crampy abdominal pain, no nausea or vomiting, diarrhea or constipation no dysuria, hematuria or frequency right leg AKA no back pain, left cvA tenderness briefly now resolved no bruising, bleeding or rashes no focal signs of weakness or numbness or altered sensation no complaints of anxiety or depression.. Physical Exam Physical Exam: The patient appeared chronically ill but well compensated Vital signs as documented. Head exam is normocephalic atraumatic Neck is without JVD, thyromegaly, or carotid bruits. Lungs are clear to auscultation, no focal loss of breath sounds Cardiac exam, Rhythm is regular.. No murmurs, rubs or gallops. Abdominal exam reveals normal bowel sounds, soft non tender, no masses Some slight reproducible left upper quadrant pain near the border of her left ribs but no overt guarding or rebound Right lower extremity AKA with dressing in place right wrist with significant arthritic deformity Neurologic exam is alert and oriented, no focal loss of strength or sensation Skin is without bruises or rashes or signs of shingles at the area of her pain Psychologically is without concerns for anxiety or depression.. Results & Data Results & Data ([place]) Vital Signs (Past 12 Hours) Vital Signs Temp Pulse Resp BP Pulse Ox 11/20/21 06:39 97.7 F 121 H 18 144/82 H 91 11/20/21 03:42 98.2 F 123 H 18 171/94 H 92 11/19/21 22:50 98.6 F 117 H 16 165/91 H 93 PG Care Time/CCT Total # of Minutes Spent Total Time Spent with Patient: Total time spent is greater than 50% in coordination of care (as documented) at patient's floor/unit and/or counseling patient: Coding Level of Care Code 95432 Subseq Hosp Care Lvl 2 Diagnoses Occlusion of stent of peripheral artery T82.599A PAF (paroxysmal atrial fibrillation) I48.0 Sepsis A41.9 Ischemic leg pain M79.606; I99.8 Cellulitis L03.90 Acute respiratory failure with hypoxia J96.01 Peripheral arterial disease I73.9 Rheumatoid arthritis M06.9 Hypertension I10 GERD (gastroesophageal reflux disease) K21.9 Overactive bladder N32.81 Steroid dependence F19.20
[2021-11-20 07:51] LABS: Basophils # (auto) 0.01 K/uL (0-0.2); Basophils % (auto) 0.1 %; Eosinophils # (auto) 0.21 K/uL (0-0.5); Eosinophils % (auto) 1.4 %; Hematocrit (blood only) 31.2 % (37-47); Hemoglobin 9.9 g/dL (12.0-16.0); Immature Granulocytes # (auto) 0.28 K/uL (0.00-0.02); Immature Granulocytes % (auto) 1.8 %; Lymphocytes # (auto) 1.95 K/uL (1.2-3.4); Lymphocytes % (auto) 12.6 %; Mean Corpuscular Hemoglobin 28.4 pg (25-34); Mean Corpuscular Hgb Conc 31.7 g/dL (32-36); Mean Corpuscular Volume 89.4 fL (80-100); Mean Platelet Volume 10.5 fL (7.4-10.4); Monocytes # (auto) 1.68 K/uL (0.11-0.59); Monocytes % (auto) 10.8 %; Neutrophils # (auto) 11.38 K/uL (1.4-6.5); Neutrophils % (auto) 73.3 %; Platelet Count 336 K/uL (130-400); RDW Coefficient of Variation 15.5 % (11.5-14.5); RDW Standard Deviation 50.6 fL (36.4-46.3); Red Blood Count 3.49 M/uL (4.2-5.4); White Blood Count 15.51 K/uL (4.8-10.8)
[2021-11-20 08:15] LABS: BUN Creatinine Ratio 20.7 (10-20); C Reactive Protein 13.83 mg/dl (0-0.5); Calcium 8.2 mg/dl (8.5-10.1); Creatinine Clr Calc Pharmacy 50.3 ml/min; Est GFR (African American) 76.6 ml/min; Est GFR (Non-African American) 66.1 ml/min; Potassium 4.2 mmol/L (3.5-5.1)
[2021-11-20] MEDS: SENNA 8.6 MG TAB PO PRN (09:07)
[2021-11-20] MEDS: AMIODARONE 200 MG TAB PO SCH ×2 (09:07→16:45)
[2021-11-20] MEDS: METOPROLOL TARTRATE 100 MG TAB PO SCH (09:08)
[2021-11-20] MEDS: OXYBUTYNIN CHLORIDE 5 MG TAB PO SCH ×2 (09:08→19:40)
[2021-11-20] MEDS: PANTOprazole 40 MG TAB PO SCH (09:08)
[2021-11-20] MEDS: GABAPENTIN 300 MG CAP PO SCH ×3 (09:08→19:40)
[2021-11-20] MEDS: predniSONE 5 MG TAB PO SCH (09:08)
[2021-11-20] MEDS: APIXABAN 5 MG TABLET PO SCH ×2 (09:08→19:40)
[2021-11-20] MEDS ORDERED: METOPROLOL TARTRATE 1 MG/ML VIAL IV PRN (11:08)
[2021-11-20] MEDS ORDERED: METOPROLOL TARTRATE 50 MG TAB PO STA (11:08)
[2021-11-20] MEDS: ACETAMINOPHEN 325 MG TAB PO PRN (16:44)
[2021-11-20 16:58] LABS: Appearance Urine Cloudy (Clear); Bacteria Urine Automated Negative (Negative); Bilirubin Urine Negative (Negative); Blood Urine 1+ (Negative); Color Urine Yellow; Epithelial Cell Urine Auto 20-30 /lpf (0-5); Glucose Urine UA Negative (Negative); Ketones Urine Negative (Negative); Leukocyte Esterase Urine 2+ (Negative); Nitrite Urine Negative (Negative); Protein Urine Trace (Negative); Specific Gravity Urine 1.015 (1.000-1.030); Urobilinogen Urine Negative (Negative); WBC Urine Automated >30 /hpf (0-5); pH Urine 5.5 (4.5-7.5)
[2021-11-20] MEDS ORDERED: MAGNESIUM SULFATE / D5W 1 GM/100 ML BAG IV ONE (19:00)
[2021-11-20] MEDS: predniSONE 1 MG TAB PO SCH (19:39)
[2021-11-20] MEDS: MAGNESIUM OXIDE 400 MG TAB PO SCH (19:39)
[2021-11-20] MEDS: METOPROLOL TARTRATE 50 MG TAB PO SCH (19:42)
[2021-11-21] MEDS: oxyCODONE HCL IR 5 MG TAB (IMMEDIATE RELEASE) PO PRN (07:50)
[2021-11-21] MEDS: predniSONE 5 MG TAB PO SCH (07:51)
[2021-11-21] MEDS: OXYBUTYNIN CHLORIDE 5 MG TAB PO SCH ×2 (07:52→20:33)
[2021-11-21] MEDS: PANTOprazole 40 MG TAB PO SCH (07:52)
[2021-11-21] MEDS: METOPROLOL TARTRATE 50 MG TAB PO SCH ×2 (07:52→20:32)
[2021-11-21] MEDS: APIXABAN 5 MG TABLET PO SCH ×2 (07:53→20:31)
[2021-11-21] MEDS: AMIODARONE 200 MG TAB PO SCH (07:53)
[2021-11-21] MEDS: GABAPENTIN 300 MG CAP PO SCH ×3 (07:53→20:31)
--- NOTE | 2021-11-21 08:40 | Surgery Progress Note ---
Date of Service November 21, 2021 Assessment & Plan (1) History of right above knee amputation: Plan: POD#7 status post right above-knee amputation Temperature elevation this morning 37 8 increased white count to 15,000 We will obtain a chest x-ray this morning Final urinalysis pending Discharge at the discretion of the primary service POD#6 status post right above-knee amputation From my point of view the patient can be discharged anytime with follow-up in the office approximately 2 weeks The operative site can be washed daily reapply a dressing only if it feels more comfortable with that on otherwise does not need one All question answered POD#5 status post right above-knee amputation Instructed patient that she may want to keep a dressing on the site no real reason to do so unless it bothers her moving around the area can be washed over with soap and water pat it dry I did remind her that we leave the jorge in a long time making sure that with her transfer does not traumatize the incision Sparse discharge we will leave it up to the medical service whenever they feel comfortable we will see her back in the office approximately 2 weeks We will Karrie this morning Admission and Anticipated Discharge Date Admission Date: November 07, 2021 Subjective She had a few chills and shaking during the night She denies any pain in the amputation site Physical Exam Physical Exam: Alert coherent just finished eating her breakfast The amputation site is healing well has a dry dressing on it the staple line is intact there is no drainage no cellulitis Results & Data ([facility]) Vital Signs (Past 12 Hours) Vital Signs Temp Pulse Resp BP Pulse Ox 11/21/21 07:18 37.8 C H 125 H 19 160/77 H 94 11/21/21 04:12 37.1 C 124 H 16 171/80 H 94 11/20/21 23:40 36.8 C 83 18 162/85 H 97 PG Care Time/CCT Total # of Minutes Spent Total Time Spent with Patient: Total time spent is greater than 50% in coordination of care (as documented) at patient's floor/unit and/or counseling patient: Coding Level of Care Code None Diagnoses History of right above knee amputation Z89.611
--- NOTE | 2021-11-21 09:25 | XRay Report ---
SINGLE VIEW CHEST CLINICAL HISTORY: Postoperative fever. FINDINGS: An AP, portable, upright chest radiograph is compared to study dated 11/17/2021 and correlat ed with chest CT dated 06/21/2019. The examination is degraded by portable technique and patient rota tion. The heart is enlarged noting atherosclerotic calcification of the thoracic aorta. There is mild pulmonary vascular congestion. Chronic interstitial thickening is similar to previous. Airspace cons olidation is seen at the left lung base. There are small pleural effusions. No pneumothorax is identi fied. The skeletal structures are osteopenic. The bony thorax is grossly intact. Advanced arthritic c hange and deformity is again seen in the shoulders. Fusion hardware is partially visualized at the th oracolumbar junction. IMPRESSION: 1. Cardiomegaly with pulmonary vascular congestion. 2. There are small pleural effusions and left basilar consolidation. Correlate clinically for evidenc e of pneumonia/aspiration. Radiographic follow-up to resolution is recommended. ACT 112: Negative or not required by law. Electronically signed by: Geremias Avila M.D. 11/21/2021 9:24 AM
[2021-11-21] MEDS: SENNA 8.6 MG TAB PO PRN (09:33)
[2021-11-21] MEDS ORDERED: STAT IV Infusion **Titration per Protocol STA (09:38)
[2021-11-21] MEDS ORDERED: AMIODARONE IV BOLUS & DRIP IV STA (09:38)
[2021-11-21] MEDS ORDERED: AMIODARONE / D5W 150 MG/100 ML BAG IV STA (09:38)
[2021-11-21] MEDS ORDERED: 0.2 MICRON FILTER SET 1 EA IV ONE (09:38)
[2021-11-21] MEDS ORDERED: AMIODARONE / D5W 360 MG/200 ML BAG IV ONE (09:49)
[2021-11-21] MEDS: ACETAMINOPHEN 325 MG TAB PO PRN (10:46)
--- NOTE | 2021-11-21 13:29 | Cardiology Progress Note ---
Date of Service November 21, 2021 Assessment & Plan (1) PAF (paroxysmal atrial fibrillation): Plan: -remains in atrial fibrillation with a rapid ventricular response. -which change amiodarone from oral to IV dosing. -agree with metoprolol tartrate 50 mg b.i.d. -continue Eliquis 5 mg b.i.d. (2) Hypertension: Plan: -adequate control currently. Admission and Anticipated Discharge Date Admission Date: November 07, 2021 Subjective The patient is resting comfortably in bed without complaints of chest pain, dyspnea, or palpitations. Physical Exam Physical Exam: In general this is a well-developed well-nourished white female in no acute distress. HEENT exam is negative. Neck is supple with full carotid upstrokes. There are no carotid bruits. No JVD. There is no thyromegaly. Cardiovascular exam reveals irregular irregular rhythm with distant heart sounds. No obvious murmurs. Lungs are clear without rales, rhonchi, or whe ezes. Abdomen is soft and nontender without bruits. Extremities reveal intact radial artery pulses bilaterally. Right AKA. Results & Data ([facility]) Vital Signs (Past 12 Hours) Vital Signs Temp Pulse Pulse Resp BP Pulse Ox 11/21/21 11:37 37.9 C H 11/21/21 10:42 39.0 C H 106 H 18 129/70 94 11/21/21 08:00 120 H 11/21/21 07:18 37.8 C H 125 H 19 160/77 H 94 11/21/21 04:12 37.1 C 124 H 16 171/80 H 94 Diagnostic Findings elastic attacher coverstitch notes atrial fibrillation with a rapid ventricular response. PG Care Time/CCT Total # of Minutes Spent Total Time Spent with Patient: Total time spent is greater than 50% in coordination of care (as documented) at patient's floor/unit and/or counseling patient: Coding Level of Care Code 11685 Subseq Hosp Care Lvl 3 Diagnoses PAF (paroxysmal atrial fibrillation) I48.0 Hypertension I10
[2021-11-21] MEDS: AMIODARONE / D5W 360 MG/200 ML BAG IV SCH (15:57)
[2021-11-21] MEDS ORDERED: DIGOXIN 0.125 MG TAB PO SCH (16:00)
[2021-11-21] MEDS: cefTRIAXone SODIUM 1,000 MG in DEXTROSE 5% 50 ML IV SCH (16:40)
--- NOTE | 2021-11-21 17:51 | Hospitalist Progress Note ---
Date of Service November 21, 2021 Assessment & Plan (1) Fever: Plan: pt had a low grade fever 11/21/21 and cxr with some LLL changes, also pin point growth in urine started on ceftriaxone, follow cultures (2) Occlusion of stent of peripheral artery: Plan: 71yo female with history of peripheral arterial disease s/p RLE arteriogram with stenting of right SFA performed 11/06/21 returning with occluded superficial femoral arterial stent on Doppler as well as posterior tibial arterial occlusion. Admitted on heparin gtt and then taken to OR with Vascular on 11/08--> no occlusion of SFA stent found but had multiple attempts by Vascular intraoperatively to bypass the tibial artery but was not possible due to calcified arteries. With fever, leukocytosis, cellulitis and wounds of foot, ischemic toes/foot s/p above knee amputation 11/[address] Baeza -pain control switched to dilaudid 0.5mg IV q2h PRN -Zofran PRN nausea -now with fever, cultures of urine, cxr wtih left base changes, started on ceftr iaxone - Dc to SNF when rate controlled, and infectious causes ruled out (3) PAF (paroxysmal atrial fibrillation): Plan: - Rapid atrial fibrillation returns started on amiodarone gtt 11/21 - challenging rate control now on digoxin, amiodarone and increased metoprolol, not unstable but more rapid rate Last echo patient has borderline low/low normal EF, will maximize MTP defer diltiazem if possible Eliquis resumed 11/16 for stroke prophylaxis -increased metoprolol is ineffective, restarted on amiodarone gtt (4) Sepsis: Plan: Now resolved, due to right foot cellulitis with source control by amputation Blood cultures no growth to date Urine culture no growth holding home leflunomide, but remains on Plaquenil-will now HOLD Plaquenil as well until after amputation and wounds healing (5) Ischemic leg pain: Plan: Now resolved s/p amputation (6) Cellulitis: Plan: Right foot ulceration with cellulitis, resolved s/p amputation as noted patient on Tylenol, oxycodone 5 mg p.o. every 6 hours as needed for pain, breakthrough hydromorphone if needed (7) Acute respiratory failure with hypoxia: Plan: has been on 4LNC since admission, weaning and at 1L denies SOB, no cough or CP no chronic lung issues (8) Peripheral arterial disease: Plan: With arterial occlusion s/p stenting -as above (9) Rheumatoid arthritis: Plan: Chronic. Stable, use Voltaren topical -hold Plaquenil and leflunomide -Continue Prednisone 5mg po qAM, 1mg po qPM. Patient placed on hydrocortisone on admit for blood pressure/stress dosing. Decreased from 25 to 10 mg 11/15 then d/jesica with stable pressure 11/17 (10) Hypertension: Plan: Blood pressure stable -Pain control -Continue Metoprolol -Continue to monitor (11) GERD (gastroesophageal reflux disease): Plan: Chronic. On Omeprazole BID at home -Protonix 40mg po daily (12) Overactive bladder: Plan: Chronic. Controlled on medication -remain on Oxybutynin (13) Steroid dependence: Plan: continue prednisone Plan: Ppx - Eliquis restarted Code - Full Dispo Tele, Admission and Anticipated Discharge Date Admission Date: November 07, 2021 Subjective The patient is resting comfortably in bed without complaints of chest pain, dyspnea, or palpitations. she has been having rvr from her afib that has been asymptomatic but prompted restart of amiodarone gtt with cardiology oversight fever wihtout pulm symptoms, CXR with left base consolidation and pinpoint growth in urine Review of Systems Review of Systems: Mild distress and fatigue no headache, no visual changes no speech or swallowing issues no chest pain, pressure or palpitations no shortness of breath, cough or wheezes left sided sharp and crampy abdominal pain, no nausea or vomiting, diarrhea or constipation no dysuria, hematuria or frequency right leg AKA no back pain, left cvA tenderness briefly now resolved no bruising, bleeding or rashes no focal signs of weakness or numbness or altered sensation no complaints of anxiety or depression.. Physical Exam Physical Exam: The patient appeared chronically ill but well compensated Vital signs as documented. Head exam is normocephalic atraumatic Neck is without JVD, thyromegaly, or carotid bruits. Lungs are clear to auscultation, no focal loss of breath sounds Cardiac exam, Rhythm is regular.. No murmurs, rubs or gallops. Abdominal exam reveals normal bowel sounds, soft non tender, no masses Some slight reproducible left upper quadrant pain near the border of her left ribs but no overt guarding or rebound Right lower extremity AKA with dressing in place right wrist with significant arthritic deformity Neurologic exam is alert and oriented, no focal loss of strength or sensation Skin is without significant redness at surgical site Psychologically is without concerns for anxiety or depression.. Results & Data Results & Data ([facility]) Vital Signs (Past 12 Hours) Vital Signs Temp Pulse Pulse Resp BP Pulse Ox 11/21/21 16:41 105 H 11/21/21 15:25 98.1 F 111 H 16 100/66 96 11/21/21 11:37 100.2 F H 11/21/21 10:42 102.2 F H 106 H 18 129/70 94 11/21/21 08:00 120 H 11/21/21 07:18 100.0 F H 125 H 19 160/77 H 94 PG Care Time/CCT Total # of Minutes Spent Total Time Spent with Patient: Total time spent is greater than 50% in coordination of care (as documented) at patient's floor/unit and/or counseling patient: Coding Level of Care Code 19843 Subseq Hosp Care Lvl 3 Diagnoses Occlusion of stent of peripheral artery T82.599A PAF (paroxysmal atrial fibrillation) I48.0 Sepsis A41.9 Ischemic leg pain M79.606; I99.8 Cellulitis L03.90 Acute respiratory failure with hypoxia J96.01 Peripheral arterial disease I73.9 Rheumatoid arthritis M06.9 Hypertension I10 GERD (gastroesophageal reflux disease) K21.9 Overactive bladder N32.81 Steroid dependence F19.20 Fever R50.9
[2021-11-21] MEDS: MAGNESIUM OXIDE 400 MG TAB PO SCH (20:32)
[2021-11-21] MEDS: predniSONE 1 MG TAB PO SCH (20:33)
[2021-11-21] MEDS: DICLOFENAC SOD 1% GEL 100 GM TUBE EXT SCH (20:33)
[2021-11-22] MEDS: AMIODARONE / D5W 360 MG/200 ML BAG IV SCH ×2 (03:57→15:46)
[2021-11-22] MEDS: ACETAMINOPHEN 325 MG TAB PO PRN (04:16)
--- NOTE | 2021-11-22 07:40 | Surgery Progress Note ---
Date of Service November 22, 2021 Assessment & Plan (1) History of right above knee amputation: Plan: POD#8 status post right above-knee amputation After talking to her regarding her anticipated recovery time from the surgery stating that someday she will feel better than others and may take up to 6 weeks to fully recover from surgery she seemed to be calm and on Chest x-ray result from yesterday noted Rocephin started yesterday Final cultures of urine is pending She is afebrile this morning Told the patient another surgeon would be seen her over the weekend if there is any issues POD#7 status post right above-knee amputation Temperature elevation this morning 37 8 increased white count to 15,000 We will obtain a chest x-ray this morning Final urinalysis pending Discharge at the discretion of the primary service POD#6 status post right above-knee amputation From my point of view the patient can be discharged anytime with follow-up in the office approximately 2 weeks The operative site can be washed daily reapply a dressing only if it feels more comfortable with that on otherwise does not need one All question answered POD#5 status post right above-knee amputation Instructed patient that she may want to keep a dressing on the site no real reason to do so unless it bothers her moving around the area can be washed over with soap and water pat it dry I did remind her that we leave the jorge in a long time making sure that with her transfer does not traumatize the incision Sparse discharge we will leave it up to the medical service whenever they feel comfortable we will see her back in the office approximately 2 weeks We will Karrie this morning Admission and Anticipated Discharge Date Admission Date: November 07, 2021 Subjective Very agitated this morning she feels like she is not making any progress She denies any more chills or fever No respiratory issues no coughing Physical Exam Physical Exam: Quite agitated The amputation site is free of any drainage or cellulitis dressing is been off patient has no pain I elevated the thigh this morning to inspect the incision and she had no pain Results & Data ([facility]) Vital Signs (Past 12 Hours) Vital Signs Temp Pulse Pulse Resp BP Pulse Ox 11/22/21 07:33 109 H 11/22/21 06:35 36.9 C 112 H 18 132/71 95 11/22/21 04:03 38.3 C H 116 H 18 126/77 94 11/21/21 22:36 37.4 C 112 H 18 110/71 96 11/21/21 22:20 95 H 11/21/21 20:17 37.2 C 118 H 17 138/76 95 PG Care Time/CCT Total # of Minutes Spent Total Time Spent with Patient: Total time spent is greater than 50% in coordination of care (as documented) at patient's floor/unit and/or counseling patient: Coding Level of Care Code None Diagnoses History of right above knee amputation Z89.611
--- NOTE | 2021-11-22 08:17 | Hospitalist Progress Note ---
Date of Service November 22, 2021 Assessment & Plan (1) Fever: Plan: pt had a low grade fever 11/21/21 and cxr with some LLL changes, also pin point growth in urine started on ceftriaxone, negative urine culture fever defervesced, follow for cultures, but still with wbc elevated and afib hard to control, will have change to zosyn to cover HAP (2) Occlusion of stent of peripheral artery: Plan: 71yo female with history of peripheral arterial disease s/p RLE arteriogram with stenting of right SFA performed 11/06/21 returning with occluded superficial femoral arterial stent on Doppler as well as posterior tibial arterial occlusion. Admitted on heparin gtt and then taken to OR with Vascular on 11/08--> no occlusion of SFA stent found but had multiple attempts by Vascular intraoperatively to bypass the tibial artery but was not possible due to calcified arteries. With fever, leukocytosis, cellulitis and wounds of foot, ischemic toes/foot s/p above knee amputation 11/[address] Baeza -11/20- with fever, cultures of urine, cxr wtih left base changes, changes to zosyn - Dc to SNF when rate controlled, and infectious causes ruled out (3) PAF (paroxysmal atrial fibrillation): Plan: - Rapid atrial fibrillation returns started on amiodarone gtt 11/21 - challenging rate control now on digoxin, amiodarone and increased metoprolol, not unstable but more rapid rate Last echo patient has borderline low/low normal EF, will maximize MTP defer diltiazem if possible Eliquis resumed 11/16 for stroke prophylaxis -increased metoprolol was ineffective, restarted on amiodarone gtt more favorable rates Dixogin level elevated hold until 11/24, follow daily dig, discuss with cardiology if maybe stop it (4) Sepsis: Plan: Now resolved, due to right foot cellulitis with source control by amputation Blood cultures no growth to date Urine culture pinpoint growth holding home leflunomide, Plaquenil as well until after amputation and wounds healing (5) Ischemic leg pain: Plan: Now resolved s/p amputation (6) Cellulitis: Plan: Right foot ulceration with cellulitis, resolved s/p amputation as noted (7) Acute respiratory failure with hypoxia: Plan: has been on 4LNC since admission, weaning and at 1L denies SOB, no cough or CP no chronic lung issues (8) Peripheral arterial disease: Plan: significant now s/p amputation (9) Rheumatoid arthritis: Plan: Chronic. Stable, use Voltaren topical -hold Plaquenil and leflunomide -Continue Prednisone 5mg po qAM, 1mg po qPM. Patient placed on hydrocortisone on admit for blood pressure/stress dosing. Decreased from 25 to 10 mg 11/15 then d/jesica with stable pressure 11/17 (10) Hypertension: Plan: Blood pressure stable on increased doses of metoprolol (11) GERD (gastroesophageal reflux disease): Plan: Chronic. On Omeprazole BID at home -Protonix 40mg po daily (12) Overactive bladder: Plan: Chronic. Controlled on medication Oxybutynin (13) Steroid dependence: Plan: continue prednisone Plan: Ppx - Eliquis restarted Code - Full Dispo Tele, Admission and Anticipated Discharge Date Admission Date: November 07, 2021 Subjective pt is unsettled about being here, although fever has lessened her wbc is elevated and afib still hard to control, given possible pneumonia is health care associated, will change to zosyn to cover and stop ceftriaxone as urine is negative Review of Systems Review of Systems: Mild distress and fatigue no headache, no visual changes no speech or swallowing issues no chest pain, pressure or palpitations no shortness of breath, cough or wheezes left sided sharp and crampy abdominal pain, no nausea or vomiting, diarrhea or constipation no dysuria, hematuria or frequency right leg AKA no back pain, left cvA tenderness briefly now resolved no bruising, bleeding or rashes no focal signs of weakness or numbness or altered sensation no complaints of anxiety or depression.. Physical Exam Physical Exam: The patient appeared chronically ill but well compensated Vital signs as documented. Head exam is normocephalic atraumatic Neck is without JVD, thyromegaly, or carotid bruits. Lungs are clear to auscultation, no focal loss of breath sounds Cardiac exam, Rhythm is regular.. No murmurs, rubs or gallops. Abdominal exam reveals normal bowel sounds, soft non tender, no masses Some slight reproducible left upper quadrant pain near the border of her left ribs but no overt guarding or rebound Right lower extremity AKA with dressing in place right wrist with significant arthritic deformity Neurologic exam is alert and oriented, no focal loss of strength or sensation Skin is without significant redness at surgical site Psychologically is without concerns for anxiety or depression.. Results & Data Results & Data ([facility]) Vital Signs (Past 12 Hours) Vital Signs Temp Pulse Pulse Resp BP Pulse Ox 11/22/21 07:33 109 H 11/22/21 06:35 98.4 F 112 H 18 132/71 95 11/22/21 04:03 100.9 F H 116 H 18 126/77 94 11/21/21 22:36 99.3 F 112 H 18 110/71 96 11/21/21 22:20 95 H 11/21/21 20:17 99.0 F 118 H 17 138/76 95 PG Care Time/CCT Total # of Minutes Spent Total Time Spent with Patient: Total time spent is greater than 50% in coordination of care (as documented) at patient's floor/unit and/or counseling patient: Coding Level of Care Code 29047 Subseq Hosp Care Lvl 2 Diagnoses Fever R50.9 Occlusion of stent of peripheral artery T82.599A PAF (paroxysmal atrial fibrillation) I48.0 Sepsis A41.9 Ischemic leg pain M79.606; I99.8 Cellulitis L03.90 Acute respiratory failure with hypoxia J96.01 Peripheral arterial disease I73.9 Rheumatoid arthritis M06.9 Hypertension I10 GERD (gastroesophageal reflux disease) K21.9 Overactive bladder N32.81 Steroid dependence F19.20
[2021-11-22] MEDS: SENNA 8.6 MG TAB PO PRN (08:50)
[2021-11-22] MEDS: OXYBUTYNIN CHLORIDE 5 MG TAB PO SCH ×2 (08:50→20:33)
[2021-11-22] MEDS: PANTOprazole 40 MG TAB PO SCH (08:50)
[2021-11-22] MEDS: GABAPENTIN 300 MG CAP PO SCH ×3 (08:50→20:33)
[2021-11-22] MEDS: METOPROLOL TARTRATE 50 MG TAB PO SCH ×2 (08:52→20:33)
[2021-11-22] MEDS: CALCITRIOL 0.25 MCG CAPSULE PO SCH (08:53)
[2021-11-22] MEDS: predniSONE 5 MG TAB PO SCH (08:53)
[2021-11-22] MEDS: DICLOFENAC SOD 1% GEL 100 GM TUBE EXT SCH ×2 (08:53→20:33)
[2021-11-22] MEDS: APIXABAN 5 MG TABLET PO SCH ×2 (08:53→20:33)
[2021-11-22 10:20] LABS: Basophils # (auto) 0.01 K/uL (0-0.2); Basophils % (auto) 0.1 %; Eosinophils # (auto) 0.15 K/uL (0-0.5); Eosinophils % (auto) 0.9 %; Hematocrit (blood only) 31.1 % (37-47); Hemoglobin 9.9 g/dL (12.0-16.0); Immature Granulocytes % (auto) 1.2 %; Lymphocytes # (auto) 1.73 K/uL (1.2-3.4); Lymphocytes % (auto) 10.7 %; Mean Corpuscular Hemoglobin 27.7 pg (25-34); Mean Corpuscular Hgb Conc 31.8 g/dL (32-36); Mean Corpuscular Volume 86.9 fL (80-100); Mean Platelet Volume 10.6 fL (7.4-10.4); Monocytes # (auto) 2.36 K/uL (0.11-0.59); Monocytes % (auto) 14.6 %; Neutrophils # (auto) 11.69 K/uL (1.4-6.5); Neutrophils % (auto) 72.5 %; Platelet Count 360 K/uL (130-400); RDW Coefficient of Variation 15.4 % (11.5-14.5); RDW Standard Deviation 48.9 fL (36.4-46.3); Red Blood Count 3.58 M/uL (4.2-5.4); White Blood Count 16.14 K/uL (4.8-10.8)
[2021-11-22] MEDS: oxyCODONE HCL IR 5 MG TAB (IMMEDIATE RELEASE) PO PRN ×2 (11:06→17:32)
[2021-11-22] MEDS: MoRPHine SULFATE 2 MG/ML CARP IV PRN (13:29)
[2021-11-22] MEDS ORDERED: PIPERACILL/TAZOBAC CONSULT ACTIVE PRN (17:16)
[2021-11-22] MEDS ORDERED: PIPERACILLIN/TAZOBACTAM 4.5 GM in DEXTROSE 5% 100 ML IV ONE (17:30)
[2021-11-22] MEDS: cefTRIAXone SODIUM 1,000 MG in DEXTROSE 5% 50 ML IV SCH (18:09)
--- NOTE | 2021-11-22 18:11 | Electrocardiogram Report ---
Test Reason : Blood Pressure : / mmHG Vent. Rate : 105 BPM Atrial Rate : 105 BPM P-R Int : 000 ms QRS Dur : 084 ms QT Int : 336 ms P-R-T Axes : 000 018 205 degrees QTc Int : 444 ms Atrial fibrillation with rapid ventricular response with premature ventricular or aberrantly conducte d complexes Incomplete right bundle branch block Abnormal ECG When compared with ECG of 16-NOV-2021 09:50, Atrial fibrillation has replaced Atrial flutter Confirmed by Davi Camacho ([id number]) on 11/22/2021 6:10:44 PM Referred By: REFERRED SELF Confirmed By:Connor Camacho
[2021-11-22] MEDS: MAGNESIUM OXIDE 400 MG TAB PO SCH (20:33)
[2021-11-22] MEDS: predniSONE 1 MG TAB PO SCH (20:38)
[2021-11-22] MEDS: PIPERACILLIN/TAZOBACTAM 4.5 GM in DEXTROSE 5% 100 ML IV SCH (23:30)
[2021-11-23] MEDS: AMIODARONE / D5W 360 MG/200 ML BAG IV SCH (03:49)
[2021-11-23] MEDS: PIPERACILLIN/TAZOBACTAM 4.5 GM in DEXTROSE 5% 100 ML IV SCH ×3 (06:27→22:41)
--- NOTE | 2021-11-23 07:06 | Surgery Progress Note ---
Date of Service November 23, 2021 Assessment & Plan (1) History of right above knee amputation: Plan: Patient slept through the evening Receiving no pain medication Awake and alert this morning in no distress Says she does not need anything special from the surgeons Overall seems to be improving Admission and Anticipated Discharge Date Admission Date: November 07, 2021 Results & Data ([facility]) Vital Signs (Past 12 Hours) Vital Signs Temp Pulse Pulse Resp BP Pulse Ox 11/23/21 04:00 37.0 C 108 H 16 113/72 96 11/23/21 00:00 115 H 11/22/21 22:39 36.8 C 107 H 18 121/76 96 11/22/21 19:54 37.2 C 122 H 18 123/78 96 PG Care Time/CCT Total # of Minutes Spent Total Time Spent with Patient: Total time spent is greater than 50% in coordination of care (as documented) at patient's floor/unit and/or counseling patient: Coding Level of Care Code None Diagnoses History of right above knee amputation Z89.611
--- NOTE | 2021-11-23 08:12 | Hospitalist Progress Note ---
Date of Service November 23, 2021 Assessment & Plan (1) Fever: Plan: pt had a low grade fever 11/21/21 and cxr with some LLL changes, also pin point growth repeat negative urine culture fever defervesced, negaive blood cultures, but still with wbc elevated and afib hard to control, did change to zosyn to cover HAP (2) Occlusion of stent of peripheral artery: Plan: 71yo female with history of peripheral arterial disease s/p RLE arteriogram with stenting of right SFA performed 11/06/21 returning with occluded superficial femoral arterial stent on Doppler as well as posterior tibial arterial occlusi on. Admitted on heparin gtt and then taken to OR with Vascular on 11/08--> no occlusion of SFA stent found but had multiple attempts by Vascular intraoperatively to bypass the tibial artery but was not possible due to calcified arteries. With fever, leukocytosis, cellulitis and wounds of foot, ischemic toes/foot s/p above knee amputation 11/[address] Baeza -11/20- with fever, cultures of urine, cxr wtih left base changes, changes to zosyn - Dc to SNF when rate controlled, and infectious causes ruled out (3) PAF (paroxysmal atrial fibrillation): Plan: - Rapid atrial fibrillation returns started on amiodarone gtt 11/21 - challenging rate control now on digoxin, amiodarone and increased metoprolol, not unstable but more rapid rate Last echo patient has borderline low/low normal EF, will maximize MTP defer diltiazem if possible Eliquis resumed 11/16 for stroke prophylaxis -increased metoprolol was ineffective, restarted on amiodarone gtt more favorable rates, converted to 400mg po bid 11/23/21 Dixogin level elevated hold until 11/24, dig now therapeutic will restart at 0.125 (4) Sepsis: Plan: Now resolved, due to right foot cellulitis with source control by amputation Blood cultures no growth to date Urine culture three types of organisms, repeat 11/23 holding home leflunomide, Plaquenil as well until after amputation and wounds healing (5) Ischemic leg pain: Plan: Now resolved s/p amputation (6) Cellulitis: Plan: Right foot ulceration with cellulitis, resolved s/p amputation as noted (7) Acute respiratory failure with hypoxia: Plan: has been on 4LNC at admission, weaning and at 1L denies SOB, no cough or CP no chronic lung issues (8) Peripheral arterial disease: Plan: significant now s/p amputation (9) Rheumatoid arthritis: Plan: Chronic. Stable, use Voltaren topical -hold Plaquenil and leflunomide -Continue Prednisone 5mg po qAM, 1mg po qPM. Patient placed on hydrocortisone on admit for blood pressure/stress dosing. Decreased from 25 to 10 mg 11/15 then d/jesica with stable pressure 11/17 (10) Hypertension: Plan: Blood pressure stable on increased doses of metoprolol (11) GERD (gastroesophageal reflux disease): Plan: Chronic. On Omeprazole BID at home -Protonix 40mg po daily (12) Overactive bladder: Plan: Chronic. Controlled on medication Oxybutynin (13) Steroid dependence: Plan: continue prednisone Plan: Ppx - Eliquis restarted Code - Full Dispo Tele, Admission and Anticipated Discharge Date Admission Date: November 07, 2021 Subjective pt is now in a better mood today, fever has lessened her wbc is elevated and afib was hard to control, given possible pneumonia is health care associated, did change to zosyn to cover Review of Systems Review of Systems: Mild distress and fatigue, much better today no headache, no visual changes no speech or swallowing issues no chest pain, pressure or palpitations no shortness of breath, cough or wheezes left sided sharp and crampy abdominal pain, no nausea or vomiting, diarrhea or constipation no dysuria, hematuria or frequency right leg AKA no back pain, left cvA tenderness briefly now resolved no bruising, bleeding or rashes no focal signs of weakness or numbness or altered sensation no complaints of anxiety or depression.. Physical Exam Physical Exam: The patient appeared chronically ill but well compensated Vital signs as documented. Head exam is normocephalic atraumatic Neck is without JVD, thyromegaly, or carotid bruits. Lungs are clear to auscultation, no focal loss of breath sounds Cardiac exam, Rhythm is regular.. No murmurs, rubs or gallops. Abdominal exam reveals normal bowel sounds, soft non tender, no masses Some slight reproducible left upper quadrant pain near the border of her left ribs but no overt guarding or rebound Right lower extremity AKA with dressing in place right wrist with significant arthritic deformity Neurologic exam is alert and oriented, no focal loss of strength or sensation Skin is without significant redness at surgical site Psychologically is without concerns for anxiety or depression.. Results & Data Results & Data ([facility]) Vital Signs (Past 12 Hours) Vital Signs Temp Pulse Pulse Resp BP Pulse Ox 11/23/21 08:00 57 L 11/23/21 04:00 98.6 F 108 H 16 113/72 96 11/23/21 00:00 115 H 11/22/21 22:39 98.2 F 107 H 18 121/76 96 PG Care Time/CCT Total # of Minutes Spent Total Time Spent with Patient: Total time spent is greater than 50% in coordination of care (as documented) at patient's floor/unit and/or counseling patient: Coding Level of Care Code 80665 Subseq Hosp Care Lvl 2 Diagnoses Fever R50.9 Occlusion of stent of peripheral artery T82.599A PAF (paroxysmal atrial fibrillation) I48.0 Sepsis A41.9 Ischemic leg pain M79.606; I99.8 Cellulitis L03.90 Acute respiratory failure with hypoxia J96.01 Peripheral arterial disease I73.9 Rheumatoid arthritis M06.9 Hypertension I10 GERD (gastroesophageal reflux disease) K21.9 Overactive bladder N32.81 Steroid dependence F19.20
[2021-11-23] MEDS: PANTOprazole 40 MG TAB PO SCH (09:29)
[2021-11-23] MEDS: METOPROLOL TARTRATE 50 MG TAB PO SCH ×2 (09:29→21:01)
[2021-11-23] MEDS: predniSONE 5 MG TAB PO SCH (09:29)
[2021-11-23] MEDS: OXYBUTYNIN CHLORIDE 5 MG TAB PO SCH ×2 (09:29→20:43)
[2021-11-23] MEDS: APIXABAN 5 MG TABLET PO SCH ×2 (09:30→20:42)
[2021-11-23] MEDS: GABAPENTIN 300 MG CAP PO SCH ×3 (09:30→20:43)
[2021-11-23] MEDS: AMIODARONE 200 MG TAB PO SCH ×2 (09:30→17:17)
[2021-11-23] MEDS: DICLOFENAC SOD 1% GEL 100 GM TUBE EXT SCH ×2 (09:30→20:42)
[2021-11-23] MEDS: SENNA 8.6 MG TAB PO PRN (09:45)
[2021-11-23] MEDS: oxyCODONE HCL IR 5 MG TAB (IMMEDIATE RELEASE) PO PRN (10:57)
--- NOTE | 2021-11-23 12:32 | Cardiology Progress Note ---
Date of Service November 23, 2021 Assessment & Plan (1) PAF (paroxysmal atrial fibrillation): Plan: -converted back to sinus rhythm this morning. -Agree with amiodarone 400 mg b.i.d. while hospitalized. -agree with metoprolol tartrate and digoxin. -continue Eliquis 5 mg b.i.d. (2) Hypertension: Plan: -adequate control currently. Admission and Anticipated Discharge Date Admission Date: November 07, 2021 Subjective The patient is resting comfortably in bed without complaints of chest pain, dyspnea, or palpitations. Physical Exam Physical Exam: In general this is a well-developed well-nourished white female in no acute distress. HEENT exam is negative. Neck is supple with full carotid upstrokes. There are no carotid bruits. No JVD. There is no thyromegaly. Cardiovascular exam reveals irregular irregular rhythm with distant heart sounds. No obvious murmurs. Lungs are clear without rales, rhonchi, or wheezes. Abdomen is soft and nontender without bruits. Extremities reveal intact radial artery pulses bilaterally. Right AKA. Results & Data ([facility]) Vital Signs (Past 12 Hours) Vital Signs Temp Pulse Pulse Resp BP Pulse Ox 11/23/21 12:28 36.5 C 61 18 112/61 94 11/23/21 08:12 36.9 C 59 L 19 121/72 96 11/23/21 08:00 57 L 11/23/21 04:00 37.0 C 108 H 16 113/72 96 Diagnostic Findings nuclear monitoring technician noted conversion from atrial fibrillation to sinus rhythm at approximately 6:00 a.m. today. PG Care Time/CCT Total # of Minutes Spent Total Time Spent with Patient: Total time spent is greater than 50% in coordination of care (as documented) at patient's floor/unit and/or counseling patient: Coding Level of Care Code 62898 Subseq Hosp Care Lvl 3 Diagnoses PAF (paroxysmal atrial fibrillation) I48.0 Hypertension I10
--- NOTE | 2021-11-23 13:16 | XRay Report ---
XR chest 2V PA/lateral CLINICAL HISTORY: eval LLL consolidation COMPARISON STUDY: Chest radiograph November 21, 2021. FINDINGS: Severe degenerative changes of both shoulders are incidentally noted. There is no pneumotho rax. There is a moderate left pleural effusion, similar to prior exam. Associated left basilar opacit y persists. Appearance of the chest is similar to exam of November 21, 2021. Mild right basilar opacity villalobos s improved. There is a suspected small right pleural effusion. Cardiomediastinal silhouette is stable . IMPRESSION: 1. No significant change in a moderate left pleural effusion with left basilar opacity which could re flect atelectasis or consolidation. 2. Small right pleural effusion. Slight decrease in right basilar opacity. ACT 112: Negative or not required by law. Electronically signed by: Devon Zee M.D. 11/23/2021 1:15 PM
[2021-11-23] MEDS: DIGOXIN 0.125 MG TAB PO SCH (17:16)
[2021-11-23] MEDS: MAGNESIUM OXIDE 400 MG TAB PO SCH (20:43)
[2021-11-23] MEDS: predniSONE 1 MG TAB PO SCH (20:43)
[2021-11-24] MEDS: PIPERACILLIN/TAZOBACTAM 4.5 GM in DEXTROSE 5% 100 ML IV SCH ×3 (06:04→22:33)
--- NOTE | 2021-11-24 06:35 | Surgery Progress Note ---
Date of Service November 24, 2021 Assessment & Plan (1) History of right above knee amputation: Plan: Patient stable overnight No acute changes She did not require any pain medication overnight Making slow progress Admission and Anticipated Discharge Date Admission Date: November 07, 2021 Results & Data ([facility]) Vital Signs (Past 12 Hours) Vital Signs Temp Pulse Pulse Resp BP BP Pulse Ox 11/24/21 04:00 36.7 C 60 18 149/59 H 99 11/24/21 00:00 55 L 11/23/21 22:21 36.6 C 57 L 18 126/72 99 11/23/21 19:34 36.6 C 58 L 18 145/71 H 99 PG Care Time/CCT Total # of Minutes Spent Total Time Spent with Patient: Total time spent is greater than 50% in coordination of care (as documented) at patient's floor/unit and/or counseling patient: Coding Level of Care Code None Diagnoses History of right above knee amputation Z89.611
--- NOTE | 2021-11-24 07:48 | Hospitalist Progress Note ---
Date of Service November 24, 2021 Assessment & Plan (1) Fever: Plan: pt had a low grade fever 11/21/21 and cxr with some LLL changes, also pin point growth repeat negative urine culture fever defervesced, negaive blood cultures, but still with wbc elevated and afib being hard to control, did change to zosyn 11/23/21 to cover HAP, now converted to nsr (2) Occlusion of stent of peripheral artery: Plan: 71yo female with history of peripheral arterial disease s/p RLE arteriogram with stenting of right SFA performed 11/06/21 returning with occluded superficial femoral arterial stent on Doppler as well as posterior tibial arterial occlusion. Admitted on heparin gtt and then taken to OR with Vascular on 11/08--> no occlusion of SFA stent found but had multiple attempts by Vascular intraoperatively to bypass the tibial artery but was not possible due to calcified arteries. With fever, leukocytosis, cellulitis and wounds of foot, ischemic toes/foot s/p above knee amputation 11/[address] Baeza -11/20- with fever, cultures of urine, cxr wtih left base changes, changes to zosyn 11/23/21 - Dc to rehab, nsr and fever lessened (3) PAF (paroxysmal atrial fibrillation): Plan: - Rapid atrial fibrillation returns started on amiodarone gtt 11/21 - challenging rate control now on digoxin, amiodarone and increased metoprolol, not unstable but more rapid rate Last echo patient has borderline low/low normal EF, will maximize MTP defer diltiazem if possible Eliquis resumed 11/16 for stroke prophylaxis -increased metoprolol was ineffective, restarted on amiodarone gtt more favorable rates, converted to 400mg po bid 11/23/21 d/c on 200 bid at d/c Dixogin level elevated hold until 11/24, dig now therapeutic will restart at 0.125 (4) Sepsis: Plan: Now resolved, due to right foot cellulitis with source control by amputation Blood cultures no growth to date Urine culture three types of organisms, repeat 11/23 holding home leflunomide, Plaquenil as well until after amputation and wounds healing (5) Ischemic leg pain: Plan: Now resolved s/p amputation (6) Cellulitis: Plan: Right foot ulceration with cellulitis, resolved s/p amputation as noted (7) Acute respiratory failure with hypoxia: Plan: has been on 4LNC at admission, weaning and at 1L denies SOB, no cough or CP no chronic lung issues (8) Peripheral arterial disease: Plan: significant now s/p amputation (9) Rheumatoid arthritis: Plan: Chronic. Stable, use Voltaren topical -hold Plaquenil and leflunomide -Continue Prednisone 5mg po qAM, 1mg po qPM. Patient placed on hydrocortisone on admit for blood pressure/stress dosing. Decreased from 25 to 10 mg 11/15 then d/jesica with stable pressure 11/17 (10) Hypertension: Plan: Blood pressure stable on increased doses of metoprolol (11) GERD (gastroesophageal reflux disease): Plan: Chronic. On Omeprazole BID at home -Protonix 40mg po daily (12) Overactive bladder: Plan: Chronic. Controlled on medication Oxybutynin (13) Steroid dependence: Plan: continue prednisone Plan: Ppx - Eliquis restarted Code - Full Dispo Tele, Admission and Anticipated Discharge Date Admission Date: November 07, 2021 Subjective pt is now in a better mood today, fever has resolvd, lessened wbc, afib c onverted , given possible pneumonia is health care associated, did change to zosyn to cover 11/22/21 Review of Systems Review of Systems: Mild distress and fatigue, continues to improve no headache, no visual changes no speech or swallowing issues no chest pain, pressure or palpitations no shortness of breath, cough or wheezes resolved abdominal pain, no nausea or vomiting, diarrhea or constipation no dysuria, hematuria or frequency right leg AKA no back pain, left cvA tenderness briefly now resolved no bruising, bleeding or rashes no focal signs of weakness or numbness or altered sensation no complaints of anxiety or depression.. Physical Exam 2 Physical Exam: The patient appeared chronically ill but well compensated Vital signs as documented. Head exam is normocephalic atraumatic Neck is without JVD, thyromegaly, or carotid bruits. Lungs are clear to auscultation, no focal loss of breath sounds Cardiac exam, Rhythm is regular.. No murmurs, rubs or gallops. Abdominal exam reveals normal bowel sounds, soft non tender, no masses Right lower extremity AKA with dressing in place right wrist with significant arthritic deformity Neurologic exam is alert and oriented, no focal loss of strength or sensation Skin is without significant redness at surgical site Psychologically is without concerns for anxiety or depression.. Results & Data Results & Data ([facility]) Vital Signs (Past 12 Hours) Vital Signs Temp Pulse Pulse Resp BP BP Pulse Ox 11/24/21 07:15 97.7 F 59 L 18 160/76 H 98 11/24/21 04:00 98.1 F 60 18 149/59 H 99 11/24/21 00:00 55 L 11/23/21 22:21 97.9 F 57 L 18 126/72 99 PG Care Time/CCT Total # of Minutes Spent Total Time Spent with Patient: Total time spent is greater than 50% in coordination of care (as documented) at patient's floor/unit and/or counseling patient: Coding Level of Care Code 91011 Subseq Hosp Care Lvl 2 Diagnoses Fever R50.9 Occlusion of stent of peripheral artery T82.599A PAF (paroxysmal atrial fibrillation) I48.0 Sepsis A41.9 Ischemic leg pain M79.606; I99.8 Cellulitis L03.90 Acute respiratory failure with hypoxia J96.01 Peripheral arterial disease I73.9 Rheumatoid arthritis M06.9 Hypertension I10 GERD (gastroesophageal reflux disease) K21.9 Overactive bladder N32.81 Steroid dependence F19.20
[2021-11-24] MEDS: OXYBUTYNIN CHLORIDE 5 MG TAB PO SCH ×2 (08:19→20:21)
[2021-11-24] MEDS: METOPROLOL TARTRATE 50 MG TAB PO SCH ×2 (08:19→20:20)
[2021-11-24] MEDS: APIXABAN 5 MG TABLET PO SCH ×2 (08:20→20:21)
[2021-11-24] MEDS: GABAPENTIN 300 MG CAP PO SCH ×3 (08:20→20:21)
[2021-11-24] MEDS: predniSONE 5 MG TAB PO SCH (08:20)
[2021-11-24] MEDS: PANTOprazole 40 MG TAB PO SCH (08:20)
[2021-11-24] MEDS: DICLOFENAC SOD 1% GEL 100 GM TUBE EXT SCH ×2 (08:21→20:21)
[2021-11-24] MEDS: AMIODARONE 200 MG TAB PO SCH ×2 (08:21→16:48)
[2021-11-24 08:39] LABS: Creatinine Clr Calc Pharmacy 38.1 ml/min; Est GFR (African American) 55.2 ml/min; Est GFR (Non-African American) 47.7 ml/min
[2021-11-24] MEDS: MoRPHine SULFATE 4 MG/ML 1 ML CARP\\VIAL IV PRN (12:18)
[2021-11-24] MEDS: DIGOXIN 0.125 MG TAB PO SCH (15:44)
[2021-11-24] MEDS: MAGNESIUM OXIDE 400 MG TAB PO SCH (20:21)
[2021-11-24] MEDS: predniSONE 1 MG TAB PO SCH (20:21)
[2021-11-25] MEDS: PIPERACILLIN/TAZOBACTAM 4.5 GM in DEXTROSE 5% 100 ML IV SCH ×3 (06:04→23:16)
[2021-11-25] MEDS: DICLOFENAC SOD 1% GEL 100 GM TUBE EXT SCH ×2 (09:12→20:57)
[2021-11-25] MEDS: predniSONE 5 MG TAB PO SCH (09:14)
[2021-11-25] MEDS: CALCITRIOL 0.25 MCG CAPSULE PO SCH (09:14)
[2021-11-25] MEDS: APIXABAN 5 MG TABLET PO SCH ×2 (09:14→20:56)
[2021-11-25] MEDS: OXYBUTYNIN CHLORIDE 5 MG TAB PO SCH ×2 (09:14→20:57)
[2021-11-25] MEDS: GABAPENTIN 300 MG CAP PO SCH ×3 (09:14→20:56)
[2021-11-25] MEDS: PANTOprazole 40 MG TAB PO SCH (09:15)
[2021-11-25] MEDS: AMIODARONE 200 MG TAB PO SCH ×2 (09:15→17:20)
[2021-11-25] MEDS: METOPROLOL TARTRATE 50 MG TAB PO SCH ×2 (09:15→20:54)
[2021-11-25 10:29] LABS: Hematocrit (blood only) 26.6 % (37-47); Hemoglobin 8.5 g/dL (12.0-16.0); Mean Corpuscular Volume 87.5 fL (80-100); Mean Platelet Volume 9.8 fL (7.4-10.4); Platelet Count 345 K/uL (130-400); RDW Coefficient of Variation 15.6 % (11.5-14.5); Red Blood Count 3.04 M/uL (4.2-5.4); White Blood Count 10.84 K/uL (4.8-10.8)
--- NOTE | 2021-11-25 11:16 | Cardiology Progress Note ---
Date of Service November 25, 2021 Assessment & Plan (1) PAF (paroxysmal atrial fibrillation): Plan: -converted back to sinus rhythm Thursday morning. -Agree with amiodarone 400 mg b.i.d. while hospitalized. -decrease amiodarone 200 mg b.i.d. discharge. -agree with metoprolol tartrate and digoxin. -continue Eliquis 5 mg b.i.d. (2) Hypertension: Plan: -adequate control currently. Admission and Anticipated Discharge Date Admission Date: November 07, 2021 Subjective The patient is resting comfortably in bed without complaints of chest pain, dyspnea, or palpitations. Physical Exam Physical Exam: In general this is a well-developed well-nourished white female in no acute distress. HEENT exam is negative. Neck is supple with full carotid upstrokes. There are no carotid bruits. No JVD. There is no thyromegaly. Cardiovascular exam reveals a regular rhythm with distant heart sounds. No obvious murmurs. Lungs are clear without rales, rhonchi, or wheezes. Abdomen is soft and nontender without bruits. Extremities reveal intact radial artery pulses bilaterally. Right AKA. Results & Data ([facility]) Vital Signs (Past 12 Hours) Vital Signs Temp Pulse Pulse Resp BP BP Pulse Ox 11/25/21 08:00 56 L 11/25/21 07:22 36.8 C 69 19 162/77 H 98 11/25/21 03:36 36.6 C 58 L 20 157/67 H 96 11/25/21 00:00 57 L Diagnostic Findings radiation monitor notes sinus rhythm the 60-70 beats per minute range. PG Care Time/CCT Total # of Minutes Spent Total Time Spent with Patient: Total time spent is greater than 50% in coordination of care (as documented) at patient's floor/unit and/or counseling patient: Coding Level of Care Code 18180 Subseq Hosp Care Lvl 3 Diagnoses PAF (paroxysmal atrial fibrillation) I48.0 Hypertension I10
[2021-11-25] MEDS: MoRPHine SULFATE 4 MG/ML 1 ML CARP\\VIAL IV PRN (12:16)
--- NOTE | 2021-11-25 14:20 | Hospitalist Progress Note ---
Date of Service November 25, 2021 Assessment & Plan (1) Fever: Plan: Has been afebrile in the last 48 hrs (2) Occlusion of stent of peripheral artery: Plan: 71yo female with history of peripheral arterial disease s/p RLE arteriogram with stenting of right SFA performed 11/06/21 returning with occluded superficial femoral arterial stent on Doppler as well as posterior tibial arterial occlusion. Admitted on heparin gtt and then taken to OR with Vascular on 11/08--> no occlusion of SFA stent found but had multiple attempts by Vascular intraoperatively to bypass the tibial artery but was not possible due to calcified arteries. With fever, leukocytosis, cellulitis and wounds of foot, ischemic toes/foot s/p above knee amputation 11/[address] Baeza Currently onZosyn Plan id d/c to rehab when accepted (3) PAF (paroxysmal atrial fibrillation): Plan: - Now converted to NSR Last echo patient has borderline low/low normal EF, will maximize MTP defer diltiazem if possible Eliquis resumed 11/16 for stroke prophylaxis -Currently on Amiodarone 400mg BID per Cardiology -Plan is to Discharge on 200mg BID (4) Sepsis: Plan: Now resolved, due to right foot cellulitis with source control by amputation Blood cultures no growth to date Urine culture three types of organisms, repeat 11/23 holding home leflunomide, Plaquenil as well until after amputation and wounds healing (5) Ischemic leg pain: Plan: Now resolved s/p amputation (6) Cellulitis: Plan: Right foot ulceration with cellulitis, resolved s/p amputation as noted (7) Acute respiratory failure with hypoxia: Plan: has been on 4LNC at admission, weaning and at 1L denies SOB, no cough or CP no chronic lung issues (8) Peripheral arterial disease: Plan: significant now s/p amputation (9) Rheumatoid arthritis: Plan: Chronic. Stable, use Voltaren topical -hold Plaquenil and leflunomide -Continue Prednisone 5mg po qAM, 1mg po qPM. Patient placed on hydrocortisone on admit for blood pressure/stress dosing. Decreased from 25 to 10 mg 11/15 then d/jesica with stable pressure 11/17 (10) Hypertension: Plan: Blood pressure stable on increased doses of metoprolol (11) GERD (gastroesophageal reflux disease): Plan: Chronic. On Omeprazole BID at home -Protonix 40mg po daily (12) Overactive bladder: Plan: Chronic. Controlled on medication Oxybutynin (13) Steroid dependence: Plan: continue prednisone Plan: Ppx - Eliquis restarted Code - Full Dispo D/C to rehab when accepted Admission and Anticipated Discharge Date Admission Date: November 07, 2021 Subjective patient seen and examined, has been doing well post surgery. afebrile Review of Systems Review of Systems: All systems reviewed are negative, apart from the ones contained in the history. Physical Exam Physical Exam: The patient is awake, alert and oriented 3, well developed and well nourished, normocephalic and atraumatic, lying in bed and in no acute distress. HEENT--PERRL, EOMI, mucous membranes and oropharynx mildly dry Neck--supple. No JVD. No bruits. Thyroid normal, trachea midline, no adenopathy. Heart--normal S1 and S2. No murmurs, rubs or gallops. Lungs--clear bilaterally, no respiratory distress, no accessory muscle use. Abdomen--normal bowel sounds and soft. Mild epigastric and left sided abdominal pain Extremities--Right AKA, clean stub Dermatologic--normal skin turgor, normal color, no abnormal lymph nodes, no rash. Neurologic--cranial nerves II through XII grossly intact. Rheumatologic--normal range of motion. Psychiatric--normal affect. Results & Data Results & Data ([facility]) Vital Signs (Past 12 Hours) Vital Signs Temp Pulse Pulse Resp BP BP Pulse Ox 11/25/21 11:46 98.2 F 67 20 149/60 H 99 11/25/21 08:00 56 L 11/25/21 07:22 98.2 F 69 19 162/77 H 98 11/25/21 03:36 97.9 F 58 L 20 157/67 H 96 Laboratory Results Laboratory Results - last 24 hr 11/25/21 11/25/21 05:25 10:01 WBC 10.84 H RBC 3.04 L Hgb 8.5 L Hct 26.6 L MCV 87.5 MCH 28.0 MCHC 32.0 RDW Std Deviation 50.0 H RDW Coeff of Jarvis 15.6 H Plt Count 345 MPV 9.8 Digoxin 1.0 PG Care Time/CCT Total # of Minutes Spent Total Time Spent with Patient: Total time spent is greater than 50% in coordination of care (as documented) at patient's floor/unit and/or counseling patient: Coding Level of Care Code 76444 Subseq Hosp Care Lvl 2 Diagnoses Fever R50.9 Occlusion of stent of peripheral artery T82.599A PAF (paroxysmal atrial fibrillation) I48.0 Sepsis A41.9 Ischemic leg pain M79.606; I99.8 Cellulitis L03.90 Acute respiratory failure with hypoxia J96.01 Peripheral arterial disease I73.9 Rheumatoid arthritis M06.9 Hypertension I10 GERD (gastroesophageal reflux disease) K21.9 Overactive bladder N32.81 Steroid dependence F19.20 Time Spent (min) 35
[2021-11-25] MEDS: DIGOXIN 0.125 MG TAB PO SCH (16:24)
[2021-11-25] MEDS: MAGNESIUM OXIDE 400 MG TAB PO SCH (20:57)
[2021-11-25] MEDS: predniSONE 1 MG TAB PO SCH (20:57)
--- NOTE | 2021-11-26 06:25 | Surgery Progress Note ---
Date of Service November 26, 2021 Assessment & Plan (1) History of right above knee amputation: Plan: 11/26/21 POD#12 s/p right AK amputation Awaiting placement at [facility]hab Discussed patient once she is discharged to [facility] for [place] we will see her in the office a week or 2 after to monitor progress we will leave the jorge in for quite a long time she can wash over the right thigh and amputation site no dressing needed All question answered Patient stable overnight No acute changes She did not require any pain medication overnight Making slow progress Admission and Anticipated Discharge Date Admission Date: November 07, 2021 Subjective no new issues states no one came for PT yesterday awaiting placement at [facility] Physical Exam Physical Exam: 11/26/21 amputation site healing well no cellulitis or drainage able to flex thigh without pain Quite agitated The amputation site is free of any drainage or cellulitis dressing is been off patient has no pain I elevated the thigh this morning to inspect the incision and she had no pain Results & Data ([facility]) Vital Signs (Past 12 Hours) Vital Signs Temp Pulse Pulse Pulse Resp BP Pulse Ox 11/26/21 03:53 36.7 C 59 L 18 150/70 H 98 11/26/21 00:00 58 L 11/25/21 23:22 36.7 C 58 L 18 157/78 H 97 11/25/21 19:10 36.9 C 58 L 19 133/66 98 PG Care Time/CCT Total # of Minutes Spent Total Time Spent with Patient: Total time spent is greater than 50% in coordination of care (as documented) at patient's floor/unit and/or counseling patient: Coding Level of Care Code None Diagnoses History of right above knee amputation Z89.611
[2021-11-26] MEDS: PIPERACILLIN/TAZOBACTAM 4.5 GM in DEXTROSE 5% 100 ML IV SCH ×3 (06:28→23:27)
[2021-11-26] MEDS: APIXABAN 5 MG TABLET PO SCH ×2 (08:04→20:40)
[2021-11-26] MEDS: OXYBUTYNIN CHLORIDE 5 MG TAB PO SCH ×2 (08:04→20:42)
[2021-11-26] MEDS: GABAPENTIN 300 MG CAP PO SCH ×3 (08:04→20:41)
[2021-11-26] MEDS: METOPROLOL TARTRATE 50 MG TAB PO SCH ×2 (08:05→20:39)
[2021-11-26] MEDS: PANTOprazole 40 MG TAB PO SCH (08:05)
[2021-11-26] MEDS: predniSONE 5 MG TAB PO SCH (08:05)
[2021-11-26] MEDS: AMIODARONE 200 MG TAB PO SCH ×2 (08:06→16:58)
[2021-11-26] MEDS: DICLOFENAC SOD 1% GEL 100 GM TUBE EXT SCH ×2 (08:06→20:39)
[2021-11-26 08:34] LABS: Creatinine Clr Calc Pharmacy 42.6 ml/min; Est GFR (African American) 63.2 ml/min; Est GFR (Non-African American) 54.5 ml/min
--- NOTE | 2021-11-26 11:35 | Ultrasound Report ---
RIGHT UPPER EXTREMITY VENOUS DOPPLER HISTORY: Right arm lump. Assess for venous thrombus. r/o DVT COMPARISON STUDY: None. FINDINGS: The right internal jugular vein is patent. There is normal flow within the right subclavian vein. There is normal flow and compressibility within the right axillary, brachial, radial, ulnar, a nd visualized cephalic veins. There is near occlusive thrombus seen throughout the majority of the ba silic vein. There is also thrombosed superficial vein within the mid to distal anterior forearm measu ring approximately 1.2 cm. This corresponds the patient's palpable abnormality. IMPRESSION: 1. No DVT within the right upper extremity. 2. Basilic vein thrombus as well as a focal area of thrombosed superficial veins within the distal fo rearm. This is consistent with a superficial thrombophlebitis. ACT 112: Negative or not required by law. Electronically signed by: Jez Mkcay M.D. 11/26/2021 11:34 AM
--- NOTE | 2021-11-26 13:56 | Hospitalist Progress Note ---
Date of Service November 26, 2021 Assessment & Plan (1) Fever: Plan: Has been afebrile in the last 48 hrs (2) Occlusion of stent of peripheral artery: Plan: 71yo female with history of peripheral arterial disease s/p RLE arteriogram with stenting of right SFA performed 11/06/21 returning with occluded superficial femoral arterial stent on Doppler as well as posterior tibial arterial occlusion. Admitted on heparin gtt and then taken to OR with Vascular on 11/08--> no occlusion of SFA stent found but had multiple attempts by Vascular intraoperatively to bypass the tibial artery but was not possible due to calcified arteries. With fever, leukocytosis, cellulitis and wounds of foot, ischemic toes/foot Now, day 12 s/p above knee amputation by Dr Baeza Currently on Zosyn, will discontinue upon discharge Has been accepted at [facility], pending insurance authorization (3) PAF (paroxysmal atrial fibrillation): Plan: - Now converted to NSR Last echo patient has borderline low/low normal EF, will maximize MTP defer diltiazem if possible Eliquis resumed 11/16 for stroke prophylaxis -Currently on Amiodarone 400mg BID per Cardiology -Plan is to Discharge on 200mg BID (4) Sepsis: Plan: Now resolved, due to right foot cellulitis with source control by amputation Blood cultures no growth to date Urine culture three types of organisms, repeat 11/23 holding home leflunomide, Plaquenil as well until wounds healing (5) Ischemic leg pain: Plan: Now resolved s/p amputation (6) Cellulitis: Plan: Right foot ulceration with cellulitis, resolved s/p amputation as noted (7) Acute respiratory failure with hypoxia: Plan: has been on 4LNC at admission, weaning and at 1L denies SOB, no cough or CP no chronic lung issues (8) Peripheral arterial disease: Plan: significant now s/p amputation (9) Rheumatoid arthritis: Plan: Chronic. Stable, use Voltaren topical -hold Plaquenil and leflunomide -Continue Prednisone 5mg po qAM, 1mg po qPM. Patient placed on hydrocortisone on admit for blood pressure/stress dosing. Decreased from 25 to 10 mg 11/15 then d/jesica with stable pressure 11/17 (10) Hypertension: Plan: Blood pressure stable on increased doses of metoprolol (11) GERD (gastroesophageal reflux disease): Plan: Chronic. On Omeprazole BID at home -Protonix 40mg po daily (12) Overactive bladder: Plan: Chronic. Controlled on medication Oxybutynin (13) Steroid dependence: Plan: continue prednisone Plan: Ppx - Eliquis restarted Code - Full Dispo D/C to rehab when accepted Admission and Anticipated Discharge Date Admission Date: November 07, 2021 Subjective no new complaints today, lying in bed Review of Systems Review of Systems: All systems reviewed are negative, apart from the ones contained in the history. Physical Exam Physical Exam: The patient is awake, alert and oriented 3, well developed and well nourished, normocephalic and atraumatic, lying in bed and in no acute distress. HEENT--PERRL, EOMI, mucous membranes and oropharynx mildly dry Neck--supple. No JVD. No bruits. Thyroid normal, trachea midline, no adenopathy. Heart--normal S1 and S2. No murmurs, rubs or gallops. Lungs--clear bilaterally, no respiratory distress, no accessory muscle use. Abdomen--normal bowel sounds and soft. Mild epigastric and left sided abdominal pain Extremities--Right AKA, clean stub Dermatologic--normal skin turgor, normal color, no abnormal lymph nodes, no rash. Neurologic--cranial nerves II through XII grossly intact. Rheumatologic--normal range of motion. Psychiatric--normal affect. Results & Data Results & Data ([facility]) Vital Signs (Past 12 Hours) Vital Signs Temp Pulse Pulse Resp BP Pulse Ox 11/26/21 11:38 97.9 F 58 L 18 155/52 H 99 11/26/21 07:53 63 11/26/21 07:00 97.7 F 59 L 20 158/71 H 99 11/26/21 03:53 98.1 F 59 L 18 150/70 H 98 PG Care Time/CCT Total # of Minutes Spent Total Time Spent with Patient: Total time spent is greater than 50% in coordination of care (as documented) at patient's floor/unit and/or counseling patient: Coding Level of Care Code 40307 Subseq Hosp Care Lvl 2 Diagnoses Fever R50.9 Occlusion of stent of peripheral artery T82.599A PAF (paroxysmal atrial fibrillation) I48.0 Sepsis A41.9 Ischemic leg pain M79.606; I99.8 Cellulitis L03.90 Acute respiratory failure with hypoxia J96.01 Peripheral arterial disease I73.9 Rheumatoid arthritis M06.9 Hypertension I10 GERD (gastroesophageal reflux disease) K21.9 Overactive bladder N32.81 Steroid dependence F19.20 Time Spent (min) 35
[2021-11-26] MEDS: MoRPHine SULFATE 2 MG/ML CARP IV PRN (13:59)
[2021-11-26] MEDS: DIGOXIN 0.125 MG TAB PO SCH (16:58)
[2021-11-26] MEDS: MAGNESIUM OXIDE 400 MG TAB PO SCH (20:41)
[2021-11-26] MEDS: predniSONE 1 MG TAB PO SCH (20:41)
[2021-11-27] MEDS: PIPERACILLIN/TAZOBACTAM 4.5 GM in DEXTROSE 5% 100 ML IV SCH ×2 (05:36→16:54)
[2021-11-27] MEDS: PANTOprazole 40 MG TAB PO SCH (08:31)
[2021-11-27] MEDS: DICLOFENAC SOD 1% GEL 100 GM TUBE EXT SCH (08:31)
[2021-11-27] MEDS: GABAPENTIN 300 MG CAP PO SCH ×3 (08:31→20:51)
[2021-11-27] MEDS: OXYBUTYNIN CHLORIDE 5 MG TAB PO SCH ×2 (08:31→20:51)
[2021-11-27] MEDS: METOPROLOL TARTRATE 50 MG TAB PO SCH ×2 (08:31→20:51)
[2021-11-27] MEDS: AMIODARONE 200 MG TAB PO SCH ×2 (08:32→16:55)
[2021-11-27] MEDS: predniSONE 5 MG TAB PO SCH (08:32)
[2021-11-27] MEDS: APIXABAN 5 MG TABLET PO SCH ×2 (08:32→20:51)
--- NOTE | 2021-11-27 12:17 | Cardiology Progress Note ---
Date of Service November 27, 2021 Assessment & Plan (1) PAF (paroxysmal atrial fibrillation): Plan: -converted back to sinus rhythm on 11/23. -could decrease amiodarone to 200 mg b.i.d. x1 month, then 200 mg daily. -agree with metoprolol tartrate and digoxin. -continue Eliquis 5 mg b.i.d. (2) Hypertension: Plan: -adequate control currently. Admission and Anticipated Discharge Date Admission Date: November 07, 2021 Subjective The patient is resting comfortably in bed without complaints of chest pain, dyspnea, or palpitations. She is anxious for hospital discharge Physical Exam Physical Exam: In general this is a well-developed well-nourished white female in no acute distress. HEENT exam is negative. Neck is supple with full carotid upstrokes. There are no carotid bruits. No JVD. There is no thyromegaly. Cardiovascular exam reveals a regular rhythm with distant heart sounds. No obvious murmurs. Lungs are clear without rales, rhonchi, or wheezes. Abdomen is soft and nontender without bruits. Extremities reveal intact radial artery pulses bilaterally. Right AKA. Results & Data ([facility]) Vital Signs (Past 12 Hours) Vital Signs Temp Pulse Pulse Resp BP Pulse Ox 11/27/21 11:53 36.6 C 62 20 161/76 H 98 11/27/21 08:01 36.6 C 56 L 14 184/67 H 100 11/27/21 07:57 56 L 11/27/21 03:54 36.8 C 56 L 16 153/71 H 95 Diagnostic Findings property assessment monitor notes sinus rhythm. No evidence of atrial fibrillation. PG Care Time/CCT Total # of Minutes Spent Total Time Spent with Patient: Total time spent is greater than 50% in coordination of care (as documented) at patient's floor/unit and/or counseling patient: Coding Level of Care Code 52018 Subseq Hosp Care Lvl 3 Diagnoses PAF (paroxysmal atrial fibrillation) I48.0 Hypertension I10
--- NOTE | 2021-11-27 14:47 | Hospitalist Progress Note ---
Date of Service November 27, 2021 Assessment & Plan (1) Fever: Plan: Has been afebrile in the last 48 hrs (2) Occlusion of stent of peripheral artery: Plan: 71yo female with history of peripheral arterial disease s/p RLE arteriogram with stenting of right SFA performed 11/06/21 returning with occluded superficial femoral arterial stent on Doppler as well as posterior tibial arterial occlusion. Admitted on heparin gtt and then taken to OR with Vascular on 11/08--> no occlusion of SFA stent found but had multiple attempts by Vascular intraoperatively to bypass the tibial artery but was not possible due to calcified arteries. With fever, leukocytosis, cellulitis and wounds of foot, ischemic toes/foot Now, day 13 s/p above knee amputation by Dr Baeza Currently on Zosyn, will discontinue upon discharge Has been accepted at [facility], pending insurance authorization (3) PAF (paroxysmal atrial fibrillation): Plan: - Now converted to NSR Last echo patient has borderline low/low normal EF, will maximize MTP defer diltiazem if possible Eliquis resumed 11/16 for stroke prophylaxis -Currently on Amiodarone 400mg BID per Cardiology -Plan is to Discharge on 200mg BID (4) Sepsis: Plan: Now resolved, due to right foot cellulitis with source control by amputation Blood cultures no growth to date Urine culture three types of organisms, repeat 11/23 holding home leflunomide, Plaquenil as well until wounds healing (5) Ischemic leg pain: Plan: Now resolved s/p amputation (6) Cellulitis: Plan: Right foot ulceration with cellulitis, resolved s/p amputation as noted (7) Acute respiratory failure with hypoxia: Plan: has been on 4LNC at admission, weaning and at 1L denies SOB, no cough or CP no chronic lung issues (8) Peripheral arterial disease: Plan: significant now s/p amputation (9) Rheumatoid arthritis: Plan: Chronic. Stable, use Voltaren topical -hold Plaquenil and leflunomide -Continue Prednisone 5mg po qAM, 1mg po qPM. Patient placed on hydrocortisone on admit for blood pressure/stress dosing. Decreased from 25 to 10 mg 11/15 then d/jesica with stable pressure 11/17 (10) Hypertension: Plan: Blood pressure stable on increased doses of metoprolol (11) GERD (gastroesophageal reflux disease): Plan: Chronic. On Omeprazole BID at home -Protonix 40mg po daily (12) Overactive bladder: Plan: Chronic. Controlled on medication Oxybutynin (13) Steroid dependence: Plan: continue prednisone Plan: Ppx - Eliquis restarted Code - Full Dispo D/C to rehab when accepted Admission and Anticipated Discharge Date Admission Date: November 07, 2021 Subjective patient seen and examined, no new complaints Review of Systems Review of Systems: All systems reviewed are negative, apart from the ones contained in the history. Physical Exam Physical Exam: The patient is awake, alert and oriented 3, well developed and well nourished, normocephalic and atraumatic, lying in bed and in no acute distress. HEENT--PERRL, EOMI, mucous membranes and oropharynx mildly dry Neck--supple. No JVD. No bruits. Thyroid normal, trachea midline, no adeno rito. Heart--normal S1 and S2. No murmurs, rubs or gallops. Lungs--clear bilaterally, no respiratory distress, no accessory muscle use. Abdomen--normal bowel sounds and soft. Mild epigastric and left sided abdominal pain Extremities--Right AKA, clean stub Dermatologic--normal skin turgor, normal color, no abnormal lymph nodes, no rash. Neurologic--cranial nerves II through XII grossly intact. Rheumatologic--normal range of motion. Psychiatric--normal affect. Results & Data Results & Data ([facility]) Vital Signs (Past 12 Hours) Vital Signs Temp Pulse Pulse Resp BP Pulse Ox 11/27/21 11:53 97.9 F 62 20 161/76 H 98 11/27/21 08:01 97.9 F 56 L 14 184/67 H 100 11/27/21 07:57 56 L 11/27/21 03:54 98.2 F 56 L 16 153/71 H 95 PG Care Time/CCT Total # of Minutes Spent Total Time Spent with Patient: Total time spent is greater than 50% in coordination of care (as documented) at patient's floor/unit and/or counseling patient: Coding Level of Care Code 45352 Subseq Hosp Care Lvl 2 Diagnoses Fever R50.9 Occlusion of stent of peripheral artery T82.599A PAF (paroxysmal atrial fibrillation) I48.0 Sepsis A41.9 Ischemic leg pain M79.606; I99.8 Cellulitis L03.90 Acute respiratory failure with hypoxia J96.01 Peripheral arterial disease I73.9 Rheumatoid arthritis M06.9 Hypertension I10 GERD (gastroesophageal reflux disease) K21.9 Overactive bladder N32.81 Steroid dependence F19.20 Time Spent (min) 35
[2021-11-27] MEDS: DIGOXIN 0.125 MG TAB PO SCH (15:31)
[2021-11-28 06:23] LABS: Hemoglobin 8.8 g/dL (12.0-16.0); Mean Corpuscular Hemoglobin 26.8 pg (25-34); Mean Corpuscular Hgb Conc 30.3 g/dL (32-36); Mean Corpuscular Volume 88.4 fL (80-100); Mean Platelet Volume 9.7 fL (7.4-10.4); Platelet Count 389 K/uL (130-400); RDW Coefficient of Variation 16.2 % (11.5-14.5); Red Blood Count 3.28 M/uL (4.2-5.4); White Blood Count 10.82 K/uL (4.8-10.8)
[2021-11-28 06:35] LABS: BUN Creatinine Ratio 16.3 (10-20); Calcium 8.5 mg/dl (8.5-10.1); Creatinine Clr Calc Pharmacy 46.1 ml/min; Est GFR (African American) 77.7 ml/min; Potassium 4.1 mmol/L (3.5-5.1)
[2021-11-28] MEDS: APIXABAN 5 MG TABLET PO SCH (08:17)
[2021-11-28] MEDS: AMIODARONE 200 MG TAB PO SCH (08:18)
[2021-11-28] MEDS: METOPROLOL TARTRATE 50 MG TAB PO SCH (08:18)
[2021-11-28] MEDS: GABAPENTIN 300 MG CAP PO SCH (08:18)
[2021-11-28] MEDS: OXYBUTYNIN CHLORIDE 5 MG TAB PO SCH (08:19)
[2021-11-28] MEDS: PANTOprazole 40 MG TAB PO SCH (08:20)
--- NOTE | 2021-11-28 12:48 | Discharge Summary ---
Date of Service November 28, 2021 Admission HPI Per Admitting Provider Jacklyn Esparza is a 71yo female with history of HTN, PAF on Eliquis anticoagulation, RA and peripheral vascular disease. She was seen By Dr. Kelly on 11/06/21 with complaint of pain at rest of the right foot which has been ongoing x 1 month. She noted a dusky discoloration of her foot which was worsening over the last 2 weeks. Her pain was becoming more severe and interfering with her sleep which is what prompted her to see Dr. Kelly. She had an arterial ultrasound of the RLE which demonstrated significant stenosis of the SFA as well as severe infrapopliteal disease. ABIs were not performed due to severely calcified and noncompressible arteries. She had a RLE arteriogram with percutaneous transluminal angioplasty and stenting of the right SFA with mechanical closure performed on 11/06/21 under general anesthesia. Procedure was well tolerated. Patient was discharged home with improvement in pain. She slept well. Unfortunately this afternoon she developed pain in her posterior right thigh as well as right calf and dusky discoloration of the right forefoot with pallor of toes. Her pain is severe, difficulty with ambulation. She presents to the ER with the above complaint. Afebrile, tachycardic and hypertensive in moderate amount of discomfort. She offers no additional complaints - specifically denies fever, chills, chest pain, cough, SOB, abdominal pain, nausea, vomiting, diarrhea or constipation. I assisted her to the bathroom with her and walker. She had severe discomfort in her right thigh and calf with ambulation. ER Course: Ceftriaxone, Heparin gtt Principal Diagnosis right foot wound, cellulitis, s/p amputation Discharge Exam The patient is awake, alert and oriented 3, well developed and well nourished, normocephalic and atraumatic, lying in bed and in no acute distress. HEENT--PERRL, EOMI, mucous membranes and oropharynx mildly dry Neck--supple. No JVD. No bruits. Thyroid normal, trachea midline, no adenopathy. Heart--normal S1 and S2. No murmurs, rubs or gallops. Lungs--clear bilaterally, no respiratory distress, no accessory muscle use. Abdomen--normal bowel sounds and soft. Mild epigastric and left sided abdominal pain Extremities--Right AKA, clean stub Dermatologic--normal skin turgor, normal color, no abnormal lymph nodes, no rash. Neurologic--cranial nerves II through XII grossly intact. Rheumatologic--normal range of motion. Psychiatric--normal affect. Discharge Data Allergies Allergy/AdvReac Type Severity Reaction Status Date / Time dalbavancin Allergy Severe hypotension, Verified 11/07/21 20:59 flushing, tachypnea Consultations 11/07/21 21:18 ED Decision to Admit Stat 11/07/21 23:46 Consult Vascular Surgery Routine 11/08/21 13:41 Consult Orthopedic Surgery Routine 11/08/21 18:52 Consult Herd Tester Routine 11/12/21 08:33 Consult Cardiology Routine Procedures Performed Operation Date: 11/08/21 09:40 Actual Procedures p Right Leg Arteriogram, Attempted Angioplasty, Mechanical Closure Left Femoral Artery(Left) - Jun Kelly MD Operation Date: 11/11/21 11:35 <No data on this case meets the specified criteria> Operation Date: 11/14/21 08:15 Actual Procedures p Right Above Knee Amputation(Right) - Manuel Baeza MD, FACS Ordered Studies 11/07/21 18:16 US arterial duplex LE RT Stat 11/08/21 09:28 EV angio LE RT Routine 11/26/21 09:53 US venous doppler UE RT Routine Hospital Course (1) Fever: Has been afebrile in the last 48 hrs (2) Occlusion of stent of peripheral artery: 71yo female with history of peripheral arterial disease s/p RLE arteriogram with stenting of right SFA performed 11/06/21 returning with occluded superficial femoral arterial stent on Doppler as well as posterior tibial arterial occlusion. Admitted on heparin gtt and then taken to OR with Vascular on 11/08--> no occlusion of SFA stent found but had multiple attempts by Vascular intraoperatively to bypass the tibial artery but was not possible due to calcified arteries. With fever, leukocytosis, cellulitis and wounds of foot, ischemic toes/foot Now, day 14 s/p above knee amputation by Dr Baeza completed a course of IV antibiotics Has been accepted at [facility] (3) PAF (paroxysmal atrial fibrillation): - Now converted to NSR Last echo patient has borderline low/low normal EF, will maximize MTP defer diltiazem if possible Eliquis resumed 11/16 for stroke prophylaxis -Currently on Amiodarone 400mg BID per Cardiology -Plan is to Discharge on 200mg BID (4) Sepsis: Now resolved, due to right foot cellulitis with source control by amputation Blood cultures no growth to date Urine culture three types of organisms, repeat 11/23 holding home leflunomide, Plaquenil as well until wounds healing (5) Ischemic leg pain: Now resolved s/p amputation (6) Cellulitis: Right foot ulceration with cellulitis, resolved s/p amputation as noted (7) Acute respiratory failure with hypoxia: has been on 4LNC at admission, weaning and at 1L denies SOB, no cough or CP no chronic lung issues (8) Peripheral arterial disease: significant now s/p amputation (9) Rheumatoid arthritis: Chronic. Stable, use Voltaren topical -hold Plaquenil and leflunomide -Continue Prednisone 5mg po qAM, 1mg po qPM. Patient placed on hydrocortisone on admit for blood pressure/stress dosing. Decreased from 25 to 10 mg 11/15 then d/jesica with stable pressure 11/17 (10) Hypertension: Blood pressure stable on increased doses of metoprolol (11) GERD (gastroesophageal reflux disease): Chronic. On Omeprazole BID at home -Protonix 40mg po daily (12) Overactive bladder: Chronic. Controlled on medication Oxybutynin (13) Steroid dependence: continue prednisone Ppx - Eliquis restarted Code - Full Dispo D/C to rehab when accepted Total Time Total Time Spent Total Time Spent (In Minutes): 35 Discharge Plan Discharge Items Patient Disposition: Transfer Alf Fac Reason For Visit: RLE STENT OCCLUSION Discharge Diagnosis: right foot infection, post amputation Activity: Per Instructions section Bathing Comment: may shower; no tub/pool soaks Exercise/Sports: Wait until after follow-up appointment Non-emergency contact: Primary Care Provider Call non-emergency contact if: you have any medication questions, your symptoms worsen, your pain is not controlled, your pain is worsening, you have a fever, your temperature is above 101.5, your wound has increased redness, your wound has increased drainage and your wound pain has increased Follow-up/Referrals: Manuel Baeza MD, FACS [Surgeon] - (Please call to schedule follow up in clinic within 1-2 weeks for follow up and staple removal) Sylvia Nails MD [Primary Care Provider] - Diet: Regular Addtl Attending Provider Instructions: please make appointment to follow up with Orthopedics Pending Studies at Discharge: No Stand-Alone Forms: My [facility] Skilled Items Patient informed of condition?: Yes DNR: No Discharge Level of Care: Skilled Communicable Disease: No Discharge Prognosis: Stable Lines: None Urinary Catheter: No Medications and DC Order Prescriptions: New amiodarone 200 mg tablet 200 mg PO BID Qty: 30 RF: 0 lisinopril-hydrochlorothiazide 10-12.5 mg tablet 1 tab PO DAILY Qty: 30 RF: 0 Continued meclizine 25 mg tablet 25 mg PO BID PRN (Reason: dizziness) Qty: 20 RF: 0 oxybutynin chloride 5 mg tablet 5 mg PO BID Qty: 180 RF: 1 Eliquis 5 mg tablet 5 mg PO BID Qty: 180 RF: 1 sennosides [senna] 8.6 mg tablet 8.6 mg PO DAILY PRN (Reason: Constipation) RF: 0 leflunomide [Arava] 20 mg tablet 20 mg PO QAM RF: 0 metoprolol tartrate 50 mg tablet 50 mg PO BID Qty: 180 RF: 3 (DME) Knee Stabilizer misc See Dose Instructions .ROUTE .MEDSUPPLY Qty: 1 RF: 0 prednisone 5 mg Tablet 5 mg PO QAM RF: 0 prednisone 1 mg Tablet 1 mg PO QPM RF: 0 Probiotic 3 billion cell Capsule 3,000 mmu cells PO QAM RF: 0 Macuvite Eye Care 7,160 unit-113 mg-100 unit Tablet 1 tab PO QAM RF: 0 calcitriol [Rocaltrol] 0.5 mcg capsule 0.5 mcg PO 2XWK RF: 0 omeprazole 20 mg capsule,delayed release(DR/EC) 20 mg PO BID RF: 0 cranberry 500 mg Capsule 500 mg PO QPM RF: 0 gabapentin 300 mg capsule 300 mg PO TID RF: 0 Calcium 600 + D(3) 600 mg calcium- 200 unit Capsule 1 cap PO BID RF: 0 hydrocodone-acetaminophen 10-325 mg tablet 1 tab PO Q4 PRN (Reason: Pain) RF: 0 ferrous sulfate 325 mg (65 mg iron) Tablet 325 mg PO QAM RF: 0 hydroxychloroquine [Plaquenil] 200 mg tablet 200 mg PO DAILY RF: 0 Discontinued cephalexin 500 mg capsule 500 mg PO TID RF: 0 Discharge Orders: Discharge Order (Routine); Ordered 11/28/21 Ordered By: Ángel Downing Admission Data Admit Date/Time: 11/07/21 21:53 Attending Provider: Ángel Downing Admit Provider: Lexis Brady Primary Care Provider: Sylvia Nails Other Providers: Dilcia Ruiz at [place] ; Lexis Brady ; Jun Kelly ; Jared Patel ; Griffin Constantino ; Yayo Brewer Other Interventions: Discharge Summary Assessment (RN) Last Done: 11/28/21 11:42 Coding Level of Care Code D/C DAY MANAGEMENT >30 MINS Diagnoses Fever R50.9 Occlusion of stent of peripheral artery T82.599A PAF (paroxysmal atrial fibrillation) I48.0 Sepsis A41.9 Ischemic leg pain M79.606; I99.8 Cellulitis L03.90 Acute respiratory failure with hypoxia J96.01 Peripheral arterial disease I73.9 Rheumatoid arthritis M06.9 Hypertension I10 GERD (gastroesophageal reflux disease) K21.9 Overactive bladder N32.81 Steroid dependence F19.20 Time Spent (min) 35
== END 2021-11-28 13:21 | DRG 239 ==
LOC: ED 17:36 → 3W 21:53 → SUATTDRO 21:53 → 3W 23:08 → 1E 11-08 15:10 → 2W 11-15 13:31 → 2S 11-16 15:22

== ENCOUNTER 2022-02-23 22:36 | Observation (INO) ==
[2022-02-23 23:29] LABS: Hematocrit (blood only) 34.7 % (34.1-44.9); Hemoglobin 10.7 g/dl (12.0-16.0); Mean Corpuscular Hemoglobin 27.5 pg (25.0-34.0); Mean Corpuscular Hgb Conc 30.8 g/dL (32.0-36.0); Mean Corpuscular Volume 89.2 fL (80.0-100.0); Mean Platelet Volume 10.5 fL (9.4-12.3); Platelet Count 252 K/uL (130-400); RDW Coefficient of Variation 18.8 % (11.5-14.5); RDW Standard Deviation 60.6 fL (36.4-46.3); Red Blood Count 3.89 M/uL (3.93-5.22)
[2022-02-23 23:42] LABS: INR 1.3 (0.9-1.1); Partial Thromboplastin Ratio 1.2; Partial Thromboplastin Time 31.8 Seconds (21.0-31.0); Prothrombin Time 13.5 Seconds (9.0-12.0)
[2022-02-23 23:48] LABS: Alanine Aminotransferase 15 U/L (7-52); Albumin Globulin Ratio 1.4 (0.9-2); Albumin Level 3.2 gm/dl (3.4-5.0); Alkaline Phosphatase 176 U/L (34-104); Anion Gap 7 (3-11); Aspartate Aminotransferase 14 U/L (13-39); BUN Creatinine Ratio 22.7 (10-20); Bilirubin,Total 0.7 mg/dl (0.2-1.0); Blood Urea Nitrogen 22 mg/dl (6-23); Calcium 8.9 mg/dl (8.5-10.1); Carbon Dioxide 25 mmol/L (21-32); Chloride 105 mmol/L (98-107); Est GFR (African American) 67.2 ml/min; Est GFR (Non-African American) 57.9 ml/min; Globulin 2.3 gm/dl (2.5-4.0); Glucose 116 mg/dl (70-99(Fasting)); Potassium 4.4 mmol/L (3.5-5.1); Sodium 137 mmol/L (136-145); Total Protein 5.5 gm/dl (6.0-8.3)
--- NOTE | 2022-02-24 01:16 | Emergency Department Note ---
History of Present Illness General Chief complaint: Rectal Bleed Stated complaint: RECTAL BLEEDING, ABOUT AN HOUR Time Seen by Provider: 02/23/22 23:31 History of Present Illness This 71-year-old female patient presents to the emergency department today accompanied by her for evaluation of rectal bleeding. This began this evening, about 3 or 4 hours after a bowel movement. Patient has been notes that she was passing some clots when he wiped and he noticed clots in the bedside commode. Patient is on Eliquis for atrial fibrillation. She denies any history of rectal bleeding in the past. She did have an abnormal Cologuard test and is scheduled for a colonoscopy in about 2-1/[address] Martin. Patient denies any abdominal pain, rectal pain, recent constipation, diarrhea, or other associated symptoms. No nausea or vomiting. No fever. No recent illness. Home Medications Medication Instructions Recorded Confirmed Type lactobacillus combination no.4 3 3,000 mmu cells PO QAM 03/30/18 02/24/22 History billion cell capsule (Probiotic) prednisone 1 mg tablet 1 mg PO QPM 03/30/18 02/24/22 History prednisone 5 mg tablet 5 mg PO QAM 03/30/18 02/24/22 History cranberry 500 mg capsule 500 mg PO QPM 09/29/18 02/24/22 History omeprazole 20 mg capsule,delayed 20 mg PO BID 09/29/18 02/24/22 History release vit A 7,160 unit-vit C 113 mg-vit 1 tab PO QAM 10/08/18 02/24/22 History E-zinc bp-rbgleg-odzdch 1 mg tablet ([facility]) calcitriol 0.5 mcg capsule 0.5 mcg PO 2XWK 02/21/20 02/24/22 History (Rocaltrol) leflunomide 20 mg tablet (Arava) 20 mg PO QAM 03/27/20 02/24/22 History calcium carbonate 600 mg-vitamin 1 cap PO BID 07/16/20 02/24/22 History D3 5 mcg (200 unit) capsule (Calcium 600 + D(3)) gabapentin 300 mg capsule 300 mg PO TID 07/16/20 02/24/22 History metoprolol tartrate 50 mg tablet 50 mg PO BID #180 tabs 12/27/20 02/24/22 Rx sennosides 8.6 mg tablet (senna) 8.6 mg PO DAILY PRN Constipation 02/28/21 02/24/22 History meclizine 25 mg tablet 25 mg PO BID PRN dizziness #20 tabs 07/26/21 02/24/22 Rx apixaban 5 mg tablet (Eliquis) 5 mg PO BID #180 tabs 08/28/21 02/24/22 Rx hydroxychloroquine 200 mg tablet 200 mg PO DAILY 10/02/21 02/24/22 History (Plaquenil) furosemide 40 mg tablet 40 mg PO DAILY PRN Edema 12/19/21 02/24/22 History duloxetine 30 mg capsule,delayed 30 mg PO DAILY #90 caps 12/30/21 02/24/22 Rx release potassium chloride 10 mEq 10 meq PO QAM #90 caps 12/30/21 02/24/22 Rx capsule,extended release oxybutynin chloride 15 mg 15 mg PO DAILY #30 tabs 01/10/22 02/24/22 Rx tablet,extended release 24 hr ferrous sulfate 325 mg (65 mg 325 mg PO QAM #90 tabs 02/03/22 02/24/22 Rx iron) tablet amiodarone 200 mg tablet 200 mg PO DAILY #90 tabs 02/11/22 02/24/22 Rx Allergies Allergy/AdvReac Type Severity Reaction Status Date / Time dalbavancin Allergy Severe hypotension, Verified 02/24/22 01:24 flushing, tachypnea Past Med/Surg History Medical History Chronic back pain DDD (degenerative disc disease) GERD (gastroesophageal reflux disease) controlled History of COVID-19 hospitalized 07/16/20 [facility]. hypoxia, fever, cough, chills, loss of taste/smell. pt reports taste/smell still not fully back to normal. History of Hodgkin's lymphoma 2003/under surveillance by PCP/Dr. Thibodeaux- S/p chemo in 2003- none since History of oral cancer s/p tongue excision left side (no chemo/no XRT 2013) No issues since Hypertension Ischemic leg pain Overactive bladder PAF (paroxysmal atrial fibrillation) hx - on Eliquis Paroxysmal SVT (supraventricular tachycardia) hx (follows with Dr. Vance) PONV (postoperative nausea and vomiting) RA (rheumatoid arthritis) on chronic steroid Skin benign neoplasm Vertigo No current issues Surgical History H/O foot surgery H/O parathyroidectomy History of biopsy History of breast surgery History of carpal tunnel release History of colonoscopy History of colposcopy with cervical biopsy History of glossectomy History of hip surgery History of spinal surgery History of total hip arthroplasty History of total knee replacement History of tubal ligation Hx of hand surgery Hx of knee surgery S/P revision of total knee Family History Mother Breast cancer Colorectal cancer Cancer Gastric cancer Aunt Colorectal cancer Other Family history non-contributory Denies family history of Ovarian cancer Prostate cancer Myocardial infarction Social History Smoking Status: Never smoker Second Hand Exposure: No; Hx Alcohol Use: No Hx Substance Use: No Preferred Language: Mohawk Communication Ability: Effective Visual Impairment: No Limitations 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: Normal Financial Supervisor Required: No Beliefs That Will Affect Care: None marital status: Current Living Situation: Spouse current occupational status: retired Feels Safe at Home: Yes Childhood Exposure to Second-Hand Smoke: Yes caffeine: Yes Dental Care, Regularly: Yes Physical Activity Frequency: Other Physical Activity Frequency Comment: Limited by a physical condition Seatbelt Use: always Sunscreen Use: Yes Assistive Devices: Walker Review of Systems A total of 10 systems reviewed and were otherwise negative Physical Exam Vital Signs Vital Signs - 24 hr 02/23/22 22:48 02/23/22 23:37 02/23/22 23:17 Temperature 36.4 C L Temperature Source Temporal Artery Scan Pulse Rate 60 63 63 Pulse Rate [Apical] Pulse Rate from SpO2 Sensor 64 Pulse Rhythm Regular Respiratory Rate 18 18 24 Respiratory Effort / Characteristics Non-Labored Spontaneous Respiratory Depth Normal Blood Pressure 185/76 H Blood Pressure [Left Arm] Blood Pressure Mean 112 Blood Pressure Mean [Left Arm] Pulse Oximetry 95 97 94 Oxygen Delivery Method Room Air Room Air Sepsis Recent Fever Within 48 Hours No Sepsis New/Unexplained Change in Mental Status N/A Sepsis Action Taken by Nursing No Action Required 02/23/22 23:30 02/24/22 00:34 02/24/22 00:00 Temperature Temperature Source Pulse Rate 61 57 L Pulse Rate [Apical] 57 L Pulse Rate from SpO2 Sensor 61 Pulse Rhythm Respiratory Rate 14 20 23 Respiratory Effort / Characteristics Non-Labored Spontaneous Respiratory Depth Normal Blood Pressure Blood Pressure [Left Arm] 189/85 H Blood Pressure Mean Blood Pressure Mean [Left Arm] 119 Pulse Oximetry 95 96 Oxygen Delivery Method Sepsis Recent Fever Within 48 Hours Sepsis New/Unexplained Change in Mental Status Sepsis Action Taken by Nursing 02/24/22 00:33 02/24/22 01:00 02/24/22 01:00 Temperature Temperature Source Pulse Rate 58 L 58 L Pulse Rate [Apical] Pulse Rate from SpO2 Sensor 57 L 56 L Pulse Rhythm Respiratory Rate 10 L 18 Respiratory Effort / Characteristics Respiratory Depth Blood Pressure 189/85 H 182/150 H Blood Pressure [Left Arm] Blood Pressure Mean 119 160 Blood Pressure Mean [Left Arm] Pulse Oximetry 94 95 Oxygen Delivery Method Sepsis Recent Fever Within 48 Hours Sepsis New/Unexplained Change in Mental Status Sepsis Action Taken by Nursing 02/24/22 01:04 02/24/22 01:30 Temperature Temperature Source Pulse Rate 60 58 L Pulse Rate [Apical] Pulse Rate from SpO2 Sensor 60 59 L Pulse Rhythm Respiratory Rate 21 17 Respiratory Effort / Characteristics Respiratory Depth Blood Pressure 193/85 H Blood Pressure [Left Arm] Blood Pressure Mean 121 Blood Pressure Mean [Left Arm] Pulse Oximetry 95 93 Oxygen Delivery Method Sepsis Recent Fever Within 48 Hours Sepsis New/Unexplained Change in Mental Status Sepsis Action Taken by Nursing VITALS: Vitals are noted on the nurse's note and reviewed by myself. Vital signs stable. GENERAL: This is a 71-year-old white female, in no acute distress, nondiaphoretic, well-developed well-nourished. SKIN: The skin was without rashes, erythema, edema, or bruising. There is no tenting of the skin. Capillary refill less than 2 seconds. HEAD: Normocephalic atraumatic. EYES: Conjunctivae without injection, sclerae without icterus. NECK: Supple without nuchal rigidity. No lymphadenopathy. No JVD. HEART: Regular rate and rhythm without murmurs gallops or rubs. LUNGS: Clear to auscultation bilaterally without wheezes, rales or rhonchi. No retractions or accessory muscle use. ABDOMEN: Positive bowel sounds x 4. Soft, nontender, without masses or organomegaly. No guarding or rebound tenderness. RECTAL - No rectal fissures. No skin tags appreciated. No obvious active bleeding, however obvious blood on glove after digital rectal exam. A sterile, water-soluble lubricant was applied to the examiner's finger prior to internal exam. No rectal vault tenderness. No rectal masses. No fecal impaction. Stool Guaiac Test: Hemoccult positive. MUSCULOSKELETAL: Right [id number]-[id number] amputation. No muscle atrophy, erythema, or edema noted. Full range of motion without joint tenderness in all extremities. No tenderness to palpation. Strength 5/5 throughout. NEURO: Patient was alert and oriented to person place and time. No focal neurological deficits. Course Course The patient was seen and evaluated as above. An order was placed for continuous cardiac monitoring. The monitor shows a sinus bradycardia at a rate of 58 bpm. IV access obtained, labs drawn. Labs reviewed by myself. I discussed the findings with the patient at bedside. I discussed the case with my attending. I discussed the case with Dr. Webb, GI physician oxidation engineer. He recommends the patient be admitted. I discussed case with the compensation consulting manager The patient will be admitted to the [facility] hospitalist group. Please see hospitalist dictation regarding ongoing management and care of this patient. Medical Decision Making Differential Diagnosis Diverticulosis, AVM, coagulopathy, colitis, inflammatory bowel disease, malignancy, Jesi-Tamez tear, esophagitis, peptic ulcer disease, variceal bleed, gastritis, epistaxis, fissure, hemorrhoids, as well as other pathologies. Medical Records Attestation: I reviewed the patient's medical records. Home Medications Current Medication List: was personally reviewed by me Laboratory Data No leukocytosis,thrombocytopenia. Anemia with a hemoglobin of 10.7. Renal, hepatic function, and electrolytes without significant abnormality. INR 1.3. COVID-19 testing negative. Result diagrams: 02/23/22 23:00 02/23/22 23:00 Lab Results 02/23/22 02/23/22 02/23/22 Range/Units 23:00 23:00 23:00 WBC 6.40 (4.8-10.8) K/ul RBC 3.89 L (3.93-5.22) M/uL Hgb 10.7 L (12.0-16.0) g/dl Hct 34.7 (34.1-44.9) % MCV 89.2 (80.0-100.0) fL MCH 27.5 (25.0-34.0) pg MCHC 30.8 L (32.0-36.0) g/dL RDW Std Deviation 60.6 H (36.4-46.3) fL RDW Coeff of Jarvis 18.8 H (11.5-14.5) % Plt Count 252 (130-400) K/uL MPV 10.5 (9.4-12.3) fL PT 13.5 H (9.0-12.0) Seconds INR 1.3 H (0.9-1.1) APTT 31.8 H (21.0-31.0) Seconds PTT Ratio 1.2 Sodium 137 (136-145) mmol/L Potassium 4.4 (3.5-5.1) mmol/L Chloride 105 (98-107) mmol/L Carbon Dioxide 25 (21-32) mmol/L Anion Gap 7 (3-11) BUN 22 (6-23) mg/dl Creatinine 0.97 (0.6-1.2) mg/dl Est Cr Clr Drug Dosing Not Reportable Est GFR ( Amer) 67.2 ml/min Est GFR (Non-Af Amer) 57.9 ml/min BUN/Creatinine Ratio 22.7 H (10-20) Glucose 116 H (70-99(Fasting)) mg/dl Calcium 8.9 (8.5-10.1) mg/dl Total Bilirubin 0.7 (0.2-1.0) mg/dl AST 14 (13-39) U/L ALT 15 (7-52) U/L Alkaline Phosphatase 176 H (34-104) U/L Total Protein 5.5 L (6.0-8.3) gm/dl Albumin 3.2 L (3.4-5.0) gm/dl Globulin 2.3 L (2.5-4.0) gm/dl Albumin/Globulin Ratio 1.4 (0.9-2) SARS-CoV-2, RNA, NAAT (NEGATIVE) 02/24/22 Range/Units 01:02 WBC (4.8-10.8) K/ul RBC (3.93-5.22) M/uL Hgb (12.0-16.0) g/dl Hct (34.1-44.9) % MCV (80.0-100.0) fL MCH (25.0-34.0) pg MCHC (32.0-36.0) g/dL RDW Std Deviation (36.4-46.3) fL RDW Coeff of Jarvis (11.5-14.5) % Plt Count (130-400) K/uL MPV (9.4-12.3) fL PT (9.0-12.0) Seconds INR (0.9-1.1) APTT (21.0-31.0) Seconds PTT Ratio Sodium (136-145) mmol/L Potassium (3.5-5.1) mmol/L Chloride (98-107) mmol/L Carbon Dioxide (21-32) mmol/L Anion Gap (3-11) BUN (6-23) mg/dl Creatinine (0.6-1.2) mg/dl Est Cr Clr Drug Dosing Est GFR ( Amer) ml/min Est GFR (Non-Af Amer) ml/min BUN/Creatinine Ratio (10-20) Glucose (70-99(Fasting)) mg/dl Calcium (8.5-10.1) mg/dl Total Bilirubin (0.2-1.0) mg/dl AST (13-39) U/L ALT (7-52) U/L Alkaline Phosphatase (34-104) U/L Total Protein (6.0-8.3) gm/dl Albumin (3.4-5.0) gm/dl Globulin (2.5-4.0) gm/dl Albumin/Globulin Ratio (0.9-2) SARS-CoV-2, RNA, NAAT NEGATIVE (NEGATIVE) ECG Data Attestation: I personally reviewed and interpreted this ECG as follows: Indication: + other (GI bleed) Rate (beats per minute): 61 Rhythm: + normal sinus ECG [place]: + Normal ECG ST segments: no ST depression, no ST elevation or no T-wave inversions Comparison ECG Date: from (11/24/2021) Change: the following changes noted (Normal sinus rhythm has replaced atrial fibrillation. Ventricular rate has decreased.) Blood Pressure Blood Pressure Findings: Elevated blood pressure Blood Pressure Disposition: further management by hospitalist BONNIE Simmons This 71-year-old female patient presents to the emergency department today for evaluation of rectal bleeding. This began this evening. There were some clots in the toilet and while getting cleaned up per her . Patient denies any dizziness or lightheadedness. No associated pain. Mild anemia with a hemoglobin of 10.7. Patient is on Eliquis for atrial fibrillation. I discussed the case with Dr. Webb, who recommended admission for management of the GI bleeding. The patient will be admitted to the [facility] hospitalist group. Please see hospitalist dictation regarding ongoing management and care of this patient. The chart was completed utilizing [employer] voice recognition software. Grammatical errors, random word insertions, pronoun errors, and incomplete sentences are an occasional consequence of this system due to software limitations, ambient noise, and hardware issues. Any formal questions or concerns about the content, text, or information contained within the body of this dictation should be directly addressed to the provider for clarification. Impression & Plan Rectal bleeding, Chronic anticoagulation Discharge Plan Visit Data Chief Complaint: Rectal Bleed Stated Complaint: RECTAL BLEEDING, ABOUT AN HOUR ED Provider: Paco Kay ED Midlevel Provider: Kala Sevilla Discharge Problem: Rectal bleeding, Chronic anticoagulation Patient Disposition: Admitted As Inpatient Forms Stand Alone Forms: My [facility] [employer] Prescriptions Prescriptions: No Action meclizine 25 mg tablet 25 mg PO BID PRN (Reason: dizziness) Qty: 20 0RF Eliquis 5 mg tablet 5 mg PO BID Qty: 180 1RF potassium chloride 10 mEq capsule, extended release 10 meq PO QAM Qty: 90 3RF duloxetine 30 mg capsule,delayed release(DR/EC) 30 mg PO DAILY Qty: 90 3RF oxybutynin chloride 15 mg tablet extended release 24 hr 15 mg PO DAILY Qty: 30 2RF ferrous sulfate 325 mg (65 mg iron) tablet 325 mg PO QAM Qty: 90 1RF amiodarone 200 mg tablet 200 mg PO DAILY Qty: 90 1RF sennosides [senna] 8.6 mg tablet 8.6 mg PO DAILY PRN (Reason: Constipation) furosemide 40 mg tablet 40 mg PO DAILY PRN (Reason: Edema) leflunomide [Arava] 20 mg tablet 20 mg PO QAM metoprolol tartrate 50 mg tablet 50 mg PO BID Qty: 180 3RF prednisone 5 mg Tablet 5 mg PO QAM prednisone 1 mg Tablet 1 mg PO QPM Probiotic 3 billion cell Capsule 3,000 mmu cells PO QAM Macuvite [facility] 7,160 unit-113 mg-100 unit Tablet 1 tab PO QAM calcitriol [Rocaltrol] 0.5 mcg capsule 0.5 mcg PO 2XWK Rx Instructions: Mondays and Fridays omeprazole 20 mg capsule,delayed release(DR/EC) 20 mg PO BID cranberry 500 mg Capsule 500 mg PO QPM gabapentin 300 mg capsule 300 mg PO TID Calcium 600 + D(3) 600 mg calcium- 200 unit Capsule 1 cap PO BID hydroxychloroquine [Plaquenil] 200 mg tablet 200 mg PO DAILY Referrals Referrals: Sylvia Nails MD [Primary Care Provider] -
--- NOTE | 2022-02-24 01:52 | History & Physical Report ---
Date of Service February 24, 2022 Assessment & Plan (1) Rectal bleeding: Plan: Blood noted on toilet paper and a few clots in bowl NPO except essential medications Patient did have positive Cologuard test and was scheduled for colonoscopy with Dr. Martin on 03/12 H&H every 6 hours Hold Eliquis, but will not reverse Unless additional bleeding Type and screen (2) Chronic anticoagulation: Plan: Hold Eliquis, last dosing given was around 6:30 this evening (3) Positive colorectal cancer screening using Cologuard test: Plan: Was scheduled for colonoscopy on 03/12 (4) Right above-knee amputee: Plan: Noted during hospitalization from 11/07-11/28/2021 (5) Overactive bladder: Plan: Hold oxybutynin (6) Acute blood loss anemia: Plan: Serial H&H's as noted hemoglobin of 10.7, is actually above her baseline at this point (7) Chronic reflux esophagitis: Plan: Placed on protonic 40 mg IV daily (8) Rheumatoid arthritis: Plan: Hold hydroxychloroquine and prednisone for now, Hold on stress dosing due to present GI bleeding (9) PAF (paroxysmal atrial fibrillation): Plan: PAF/PSVT/hypertension- Continue amiodarone 10 mg p.o. daily and metoprolol tartrate 50 mg p.o. twice daily Hold Eliquis as noted (10) Paroxysmal SVT (supraventricular tachycardia): (11) Hypertension: (12) History of Hodgkin's lymphoma: History of Present Illness Chief Complaint: The patient presents to the emergency department with her , with complaint of blood clots in commode, and blood on toilet paper noted about 3 to 4 hours after a BM this evening Primary Care Provider: Sylvia Nails MD The patient is a 71-year-old female with a past medical history including status post right AKA, occlusion of femoral artery, occlusion of stented peripheral artery, overactive bladder, osteoporosis, cervical neuropathy, hyperparathyroidism, chronic reflux esophagitis, rheumatoid arthritis, hypertension, GERD, paroxysmal defibrillation, paroxysmal SVT and history of Hodgkin's lymphoma. She is status post right AKA during admission from 11/07- 11/28/2021 due to femoral artery occlusion. She has been on Eliquis for stroke prevention due to atrial fibrillation. This evening is a first time they have noted any bleeding associated with anticoagulation. She denies any abdominal pain or rectal pain. She denies any recent travels or sick exposures. Allergies Allergy/AdvReac Type Severity Reaction Status Date / Time philomenacin Allergy Severe hypotension, Verified 02/24/22 01:24 flushing, tachypnea Home Medications Medication Instructions Recorded Confirmed Type lactobacillus combination no.4 3 3,000 mmu cells PO QAM 03/30/18 02/24/22 History billion cell capsule (Probiotic) prednisone 1 mg tablet 1 mg PO QPM 03/30/18 02/24/22 History prednisone 5 mg tablet 5 mg PO QAM 03/30/18 02/24/22 History cranberry 500 mg capsule 500 mg PO QPM 09/29/18 02/24/22 History omeprazole 20 mg capsule,delayed 20 mg PO BID 09/29/18 02/24/22 History release vit A 7,160 unit-vit C 113 mg-vit 1 tab PO QAM 10/08/18 02/24/22 History E-zinc ki-gvsovr-jtamaf 1 mg tablet ([facility]) calcitriol 0.5 mcg capsule 0.5 mcg PO 2XWK 02/21/20 02/24/22 History (Rocaltrol) leflunomide 20 mg tablet (Arava) 20 mg PO QAM 03/27/20 02/24/22 History calcium carbonate 600 mg-vitamin 1 cap PO BID 07/16/20 02/24/22 History D3 5 mcg (200 unit) capsule (Calcium 600 + D(3)) gabapentin 300 mg capsule 300 mg PO TID 07/16/20 02/24/22 History metoprolol tartrate 50 mg tablet 50 mg PO BID #180 tabs 12/27/20 02/24/22 Rx sennosides 8.6 mg tablet (senna) 8.6 mg PO DAILY PRN Constipation 02/28/21 02/24/22 History meclizine 25 mg tablet 25 mg PO BID PRN dizziness #20 tabs 07/26/21 02/24/22 Rx apixaban 5 mg tablet (Eliquis) 5 mg PO BID #180 tabs 08/28/21 02/24/22 Rx hydroxychloroquine 200 mg tablet 200 mg PO DAILY 10/02/21 02/24/22 History (Plaquenil) furosemide 40 mg tablet 40 mg PO DAILY PRN Edema 12/19/21 02/24/22 History duloxetine 30 mg capsule,delayed 30 mg PO DAILY #90 caps 12/30/21 02/24/22 Rx release potassium chloride 10 mEq 10 meq PO QAM #90 caps 12/30/21 02/24/22 Rx capsule,extended release oxybutynin chloride 15 mg 15 mg PO DAILY #30 tabs 01/10/22 02/24/22 Rx tablet,extended release 24 hr ferrous sulfate 325 mg (65 mg 325 mg PO QAM #90 tabs 02/03/22 02/24/22 Rx iron) tablet amiodarone 200 mg tablet 200 mg PO DAILY #90 tabs 02/11/22 02/24/22 Rx Past Med/Surg History Medical History Chronic back pain DDD (degenerative disc disease) GERD (gastroesophageal reflux disease) controlled History of COVID-19 hospitalized 07/16/20 [facility]. hypoxia, fever, cough, chills, loss of taste/smell. pt reports taste/smell still not fully back to normal. History of Hodgkin's lymphoma 2003/under surveillance by PCP/Dr. Thibodeaux- S/p chemo in 2003- none since History of oral cancer s/p tongue excision left side (no chemo/no XRT 2013) No issues since Hypertension Ischemic leg pain Overactive bladder PAF (paroxysmal atrial fibrillation) hx - on Eliquis Paroxysmal SVT (supraventricular tachycardia) hx (follows with Dr. Vance) PONV (postoperative nausea and vomiting) RA (rheumatoid arthritis) on chronic steroid Skin benign neoplasm Vertigo No current issues Surgical History H/O foot surgery H/O parathyroidectomy History of biopsy History of breast surgery History of carpal tunnel release History of colonoscopy History of colposcopy with cervical biopsy History of glossectomy History of hip surgery History of spinal surgery History of total hip arthroplasty History of total knee replacement History of tubal ligation Hx of hand surgery Hx of knee surgery S/P revision of total knee Family History Mother Breast cancer Colorectal cancer Cancer Gastric cancer Aunt Colorectal cancer Other Family history non-contributory Denies family history of Ovarian cancer Prostate cancer Myocardial infarction Social History Smoking Status: Never smoker Second Hand Exposure: No; Hx Alcohol Use: No Hx Substance Use: No Preferred Language: Palauan Communication Ability: Effective Visual Impairment: No Limitations 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: Normal 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: No Beliefs That Will Affect Care: None marital status: Current Living Situation: Spouse current occupational status: retired Feels Safe at Home: Yes Childhood Exposure to Second-Hand Smoke: Yes caffeine: Yes Dental Care, Regularly: Yes Physical Activity Frequency: Other Physical Activity Frequency Comment: Limited by a physical condition Seatbelt Use: always Sunscreen Use: Yes Assistive Devices: Walker Review of Systems Review of Systems: The patient denies chest pain, palpitations, shortness of breath, dyspnea on exertion, cough, sore throat, fevers, chills, sweats, nausea, vomiting, diarrhea , constipation, abdominal pain, pelvic pain, blood in urine, dysuria, urinary frequency or urgency, lightheadedness, dizziness, headache, memory loss, loss of consciousness, rash, imbalance, focal or generalized weakness, numbness or tingling in arms or left leg, generalized arthralgias or myalgias, back or neck pain, or night sweats. The review of systems is otherwise negative other than for that already noted above, and at least 10 systems have been reviewed. Physical Exam Physical Exam: The patient is awake, alert and oriented 3, well developed and well nourished, normocephalic and atraumatic, lying in bed and in no acute distress. HEENT--PERRL, EOMI, mucous membranes and oropharynx normal. Neck--supple. No JVD. No bruits. Thyroid normal, trachea midline, no adenopathy. Heart--normal S1 and S2. No murmurs, rubs or gallops. Lungs--clear bilaterally, no respiratory distress, no accessory muscle use. Abdomen--normal bowel sounds and soft. Nontender. Nondistended, no hernias or masses, no organomegaly. Extremities--right AKA Dermatologic--normal skin turgor, normal color, no abnormal lymph nodes, no rash. Neurologic--cranial nerves II through XII grossly intact. Rheumatologic--as above Psychiatric--normal affect. Results & Data Results & Data ([facility]) Vital Signs (Past 12 Hours) Vital Signs Temp Pulse Pulse Resp BP BP Pulse Ox 02/24/22 01:30 58 L 17 193/85 H 93 02/24/22 01:04 60 21 95 02/24/22 01:00 58 L 18 95 02/24/22 01:00 182/150 H 02/24/22 00:33 58 L 10 L 189/85 H 94 02/24/22 00:00 57 L 23 02/24/22 00:34 57 L 20 189/85 H 96 02/23/22 23:30 61 14 95 02/23/22 23:17 63 24 94 02/23/22 23:37 63 18 97 02/23/22 22:48 36.4 C L 60 18 185/76 H 95 O2 Del Method 02/24/22 01:30 02/24/22 01:04 02/24/22 01:00 02/24/22 01:00 02/24/22 00:33 02/24/22 00:00 02/24/22 00:34 02/23/22 23:30 02/23/22 23:17 02/23/22 23:37 Room Air 02/23/22 22:48 Room Air Laboratory Results Laboratory Results WBC 6.40 K/ul (4.8-10.8) 02/23/22 23:00 RBC 3.89 M/uL (3.93-5.22) L 02/23/22 23:00 Hgb 10.7 g/dl (12.0-16.0) L 02/23/22 23:00 Hct 34.7 % (34.1-44.9) 02/23/22 23:00 MCV 89.2 fL (80.0-100.0) 02/23/22 23:00 MCH 27.5 pg (25.0-34.0) 02/23/22 23:00 MCHC 30.8 g/dL (32.0-36.0) L 02/23/22 23:00 RDW Std Deviation 60.6 fL (36.4-46.3) H 02/23/22 23:00 RDW Coeff of Jarvis 18.8 % (11.5-14.5) H 02/23/22 23:00 Plt Count 252 K/uL (130-400) 02/23/22 23:00 MPV 10.5 fL (9.4-12.3) 02/23/22 23:00 PT 13.5 Seconds (9.0-12.0) H 02/23/22 23:00 INR 1.3 (0.9-1.1) H 02/23/22 23:00 APTT 31.8 Seconds (21.0-31.0) H 02/23/22 23:00 PTT Ratio 1.2 02/23/22 23:00 Sodium 137 mmol/L (136-145) 02/23/22 23:00 Potassium 4.4 mmol/L (3.5-5.1) 02/23/22 23:00 Chloride 105 mmol/L (98-107) 02/23/22 23:00 Carbon Dioxide 25 mmol/L (21-32) 02/23/22 23:00 Anion Gap 7 (3-11) 02/23/22 23:00 BUN 22 mg/dl (6-23) 02/23/22 23:00 Creatinine 0.97 mg/dl (0.6-1.2) 02/23/22 23:00 Est Cr Clr Drug Dosing Not Reportable 02/23/22 23:00 Est GFR ( Amer) 67.2 ml/min 02/23/22 23:00 Est GFR (Non-Af Amer) 57.9 ml/min 02/23/22 23:00 BUN/Creatinine Ratio 22.7 (10-20) H 02/23/22 23:00 Glucose 116 mg/dl (70-99(Fasting)) H 02/23/22 23:00 Calcium 8.9 mg/dl (8.5-10.1) 02/23/22 23:00 Total Bilirubin 0.7 mg/dl (0.2-1.0) 02/23/22 23:00 AST 14 U/L (13-39) 02/23/22 23:00 ALT 15 U/L (7-52) 02/23/22 23:00 Alkaline Phosphatase 176 U/L (34-104) H 02/23/22 23:00 Total Protein 5.5 gm/dl (6.0-8.3) L 02/23/22 23:00 Albumin 3.2 gm/dl (3.4-5.0) L 02/23/22 23:00 Globulin 2.3 gm/dl (2.5-4.0) L 02/23/22 23:00 Albumin/Globulin Ratio 1.4 (0.9-2) 02/23/22 23:00 POC Stool Occult Blood Positive (Negative) A 02/24/22 02:33 SARS-CoV-2, RNA, NAAT NEGATIVE (NEGATIVE) 02/24/22 01:02 Code Status & VTE Plan Code Status Full code VTE Prophylaxis Plan VTE Prophylaxis will be ordered: Yes PG Care Time/CCT Total # of Minutes Spent Total Time Spent with Patient: Total time spent is greater than 50% in coordination of care (as documented) at patient's floor/unit and/or counseling patient: Coding Level of Care Code 27552 Initial Inpt Care Lvl 3 Diagnoses Rectal bleeding K62.5 Chronic anticoagulation Z79.01 Positive colorectal cancer screening using Cologuard test R19.5 Right above-knee amputee Z89.611 Overactive bladder N32.81 Acute blood loss anemia D62 Chronic reflux esophagitis K21.0 Rheumatoid arthritis M06.9 PAF (paroxysmal atrial fibrillation) I48.0 Paroxysmal SVT (supraventricular tachycardia) I47.1 Hypertension I10 History of Hodgkin's lymphoma Z85.71
[2022-02-24] MEDS ORDERED: ACETAMINOPHEN 325 MG TAB PO PRN (04:31)
[2022-02-24] MEDS ORDERED: ONDANSETRON INJ 2 MG/ML 2 ML VIAL IV PRN (04:31)
[2022-02-24] MEDS ORDERED: hydrALAZINE HCL 20 MG/ML VIAL IV PRN (04:34)
[2022-02-24 05:14] LABS: Hematocrit (blood only) 33.1 % (34.1-44.9); Hemoglobin 10.6 g/dl (12.0-16.0)
[2022-02-24] MEDS: METOPROLOL TARTRATE 50 MG TAB PO SCH ×2 (09:09→20:38)
[2022-02-24] MEDS: AMIODARONE 200 MG TAB PO SCH (09:09)
--- NOTE | 2022-02-24 09:26 | Gastrointestinal Consultation ---
Date of Consultation February 24, 2022 Assessment & Plan (1) Rectal bleeding: Patient is a 71 year old female with history of hodkins lymphoma (chemo 2004), oral cancer in 2014 s/p surgical excision (no chemo/radiation), a fib on eliquis, who presented to the ED last evening after she had an episode of rectal bleeding that occurred with a bowel movement. she tells me that she has had no bleeding since her arrival to the ED and she tells me that the blood she had was mild. - discussed with Dr. Martin who advised on plan. - recommend continue to hold eliquis at this time and monitor symptoms. hgb stable. - would plan to proceed with colonoscopy as outpatient as scheduled unless significant bleeding occurs. Supervising Physician Co-Signing Physician Notes Agree with MINOR Marti as above Gen: A+O x3, Cooperative, NAD Abd: Soft, NT, ND, +BS Continue current therapy and supportive care No further overt GI bleeding H/H is stable Will try to move up outpatient colonoscopy to sooner date from scheduled colonoscopy of 03/12 History of Present Illness Reason for Consultation: lower gi bleeding on eliquis Requesting Physician: Dr. Ferreira Attending Physician: Abhijeet Ribeiro MD History of Present Illness Patient is a 71 year old female with history of hodkins lymphoma (chemo 2004), oral cancer in 2014 s/p surgical excision (no chemo/radiation), a fib on eliquis, who presented to the ED last evening after she had an episode of rectal bleeding that occurred with a bowel movement. She tells me that she saw some of the blood on the toilet tissue that she describes as mild but she did see radames ts. This was the first time she noticed bleeding since being on blood thinner so she came to the ED for evaluation. Initial hgb upon evaluation was 10.7. repeat later revealed hgb of 10.6. Her last dose of eliquis was yesterday evening (02/23/22). she tells me that when she initially arrived to ED she had some more bleeding but has not had any since. Last colonoscopy was done 2005 with sigmoid diverticulosis. She did recently have a positive cologuard as an outpatient and is to have a colonoscopy done 03/12/22 as outpatient. she denies any nausea, vomtiing, heartburn, abdominal pain, dysphagia, unintentional weight loss, rectal pain, change in bowels, melena. Allergies Allergy/AdvReac Type Severity Reaction Status Date / Time dalbavancin Allergy Severe hypotension, Verified 02/24/22 01:24 flushing, tachypnea Home Medications Medication Instructions Recorded Confirmed Type lactobacillus combination no.4 3 3,000 mmu cells PO QAM 03/30/18 02/24/22 History billion cell capsule (Probiotic) prednisone 1 mg tablet 1 mg PO QPM 03/30/18 02/24/22 History prednisone 5 mg tablet 5 mg PO QAM 03/30/18 02/24/22 History cranberry 500 mg capsule 500 mg PO QPM 09/29/18 02/24/22 History omeprazole 20 mg capsule,delayed 20 mg PO BID 09/29/18 02/24/22 History release vit A 7,160 unit-vit C 113 mg-vit 1 tab PO QAM 10/08/18 02/24/22 History E-zinc [id number]-[id number] 1 mg tablet ([facility]) calcitriol 0.5 mcg capsule 0.5 mcg PO 2XWK 02/21/20 02/24/22 History (Rocaltrol) leflunomide 20 mg tablet (Arava) 20 mg PO QAM 03/27/20 02/24/22 History calcium carbonate 600 mg-vitamin 1 cap PO BID 07/16/20 02/24/22 History D3 5 mcg (200 unit) capsule (Calcium 600 + D(3)) gabapentin 300 mg capsule 300 mg PO TID 07/16/20 02/24/22 History metoprolol tartrate 50 mg tablet 50 mg PO BID #180 tabs 12/27/20 02/24/22 Rx sennosides 8.6 mg tablet (senna) 8.6 mg PO DAILY PRN Constipation 02/28/21 02/24/22 History meclizine 25 mg tablet 25 mg PO BID PRN dizziness #20 tabs 07/26/21 02/24/22 Rx apixaban 5 mg tablet (Eliquis) 5 mg PO BID #180 tabs 08/28/21 02/24/22 Rx hydroxychloroquine 200 mg tablet 200 mg PO DAILY 10/02/21 02/24/22 History (Plaquenil) furosemide 40 mg tablet 40 mg PO DAILY PRN Edema 12/19/21 02/24/22 History duloxetine 30 mg capsule,delayed 30 mg PO DAILY #90 caps 12/30/21 02/24/22 Rx release potassium chloride 10 mEq 10 meq PO QAM #90 caps 12/30/21 02/24/22 Rx capsule,extended release oxybutynin chloride 15 mg 15 mg PO DAILY #30 tabs 01/10/22 02/24/22 Rx tablet,extended release 24 hr ferrous sulfate 325 mg (65 mg 325 mg PO QAM #90 tabs 02/03/22 02/24/22 Rx iron) tablet amiodarone 200 mg tablet 200 mg PO DAILY #90 tabs 02/11/22 02/24/22 Rx Patient History Medical History Chronic back pain DDD (degenerative disc disease) GERD (gastroesophageal reflux disease) controlled History of COVID-19 hospitalized 07/16/20 [facility]. hypoxia, fever, cough, chills, loss of taste/smell. pt reports taste/smell still not fully back to normal. History of Hodgkin's lymphoma 2003/under surveillance by PCP/Dr. Thibodeaux- S/p chemo in 2003- none since History of oral cancer s/p tongue excision left side (no chemo/no XRT 2013) No issues since Hypertension Ischemic leg pain Overactive bladder PAF (paroxysmal atrial fibrillation) hx - on Eliquis Paroxysmal SVT (supraventricular tachycardia) hx (follows with Dr. Vance) PONV (postoperative nausea and vomiting) RA (rheumatoid arthritis) on chronic steroid Skin benign neoplasm Vertigo No current issues Surgical History H/O foot surgery H/O parathyroidectomy History of biopsy History of breast surgery History of carpal tunnel release History of colonoscopy History of colposcopy with cervical biopsy History of glossectomy History of hip surgery History of spinal surgery History of total hip arthroplasty History of total knee replacement History of tubal ligation Hx of hand surgery Hx of knee surgery S/P revision of total knee Family History Mother Breast cancer Colorectal cancer Cancer Gastric cancer Aunt Colorectal cancer Other Family history non-contributory Denies family history of Ovarian cancer Prostate cancer Myocardial infarction Social History Smoking Status: Never smoker Second Hand Exposure: No; Hx Alcohol Use: No Hx Substance Use: No Preferred Language: Romansh Communication Ability: Effective Visual Impairment: No Limitations 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: Normal [employer] Required: No Beliefs That Will Affect Care: None marital status: Current Living Situation: Spouse current occupational status: retired Feels Safe at Home: Yes Childhood Exposure to Second-Hand Smoke: Yes caffeine: Yes Dental Care, Regularly: Yes Physical Activity Frequency: Other Physical Activity Frequency Comment: Limited by a physical condition Seatbelt Use: always Sunscreen Use: Yes Assistive Devices: Walker Review of Systems Review of Systems: All systems reviewed & are unremarkable except as noted in HPI & below Physical Exam Constitutional: WD/WN, vitals as above Eyes: + anicteric sclerae and PERRL Respiratory: normal respiratory effort, lungs clear to auscultation Cardiovascular: RRR, no murmur, no edema Gastrointestinal (Abdomen): normal bowel sounds, soft, nontender, no hepatosplenomegaly Musculoskeletal: she has a right above the knee amputation. Skin: no rashes, warm and dry Psychiatric: Orientation: alert and oriented x 3 Affect: euthymic affect Results & Data ([facility]) Vital Signs (Past 12 Hours) Vital Signs Temp Pulse Pulse Resp BP BP Pulse Ox 02/24/22 08:00 63 18 180/61 H 96 02/24/22 08:00 02/24/22 06:30 64 23 97 02/24/22 06:00 61 25 H 165/59 H 93 02/24/22 05:00 60 25 H 168/55 H 72 L 02/24/22 04:49 59 L 16 95 02/24/22 04:11 64 25 H 207/90 H 02/24/22 03:30 60 24 97 02/24/22 03:00 59 L 23 93 02/24/22 02:30 59 L 14 195/91 H 97 02/24/22 02:00 65 23 95 02/24/22 01:30 58 L 17 193/85 H 93 02/24/22 01:04 60 21 95 02/24/22 01:00 58 L 18 95 02/24/22 01:00 182/150 H 02/24/22 00:33 58 L 10 L 189/85 H 94 02/24/22 00:00 57 L 23 02/24/22 00:34 57 L 20 189/85 H 96 02/23/22 23:30 61 14 95 02/23/22 23:17 63 24 94 02/23/22 23:37 63 18 97 02/23/22 22:48 36.4 C L 60 18 185/76 H 95 Pulse Ox O2 Del Method O2 Del Method 02/24/22 08:00 Room Air 02/24/22 08:00 96 Room Air 02/24/22 06:30 02/24/22 06:00 02/24/22 05:00 02/24/22 04:49 02/24/22 04:11 02/24/22 03:30 02/24/22 03:00 02/24/22 02:30 02/24/22 02:00 02/24/22 01:30 02/24/22 01:04 02/24/22 01:00 02/24/22 01:00 02/24/22 00:33 02/24/22 00:00 02/24/22 00:34 02/23/22 23:30 02/23/22 23:17 02/23/22 23:37 Room Air 02/23/22 22:48 Room Air PG Care Time/CCT Total # of Minutes Spent Total Time Spent with Patient: Total time spent is greater than 50% in coordination of care (as documented) at patient's floor/unit and/or counseling patient: Coding Level of Care Code 22798 Initial Inpt Care Lvl 3 Diagnoses Rectal bleeding K62.5
[2022-02-24 10:44] LABS: Hematocrit (blood only) 34.2 % (34.1-44.9); Hemoglobin 10.9 g/dl (12.0-16.0)
[2022-02-24] MEDS: PANTOprazole 40 MG in SYRINGE 0 ML IV SCH (11:28)
--- NOTE | 2022-02-24 12:36 | Electrocardiogram Report ---
Test Reason : Blood Pressure : / mmHG Vent. Rate : 061 BPM Atrial Rate : 061 BPM P-R Int : 186 ms QRS Dur : 088 ms QT Int : 436 ms P-R-T Axes : 061 035 142 degrees QTc Int : 438 ms Normal sinus rhythm Diffuse Nonspecific T wave abnormality Abnormal ECG When compared with ECG of 22-NOV-2021 08:28, Sinus rhythm has replaced Atrial fibrillation Vent. rate has decreased BY 44 BPM T-wave inversion in Anterior leads no longer present Incomplete right bundle branch block no longer present Confirmed by Nabor Fuentes ([id number] on 02/24/2022 12:35:53 PM Referred By: REFERRED SELF Confirmed By:Nabor Fuentes
--- NOTE | 2022-02-24 14:19 | History & Physical Bridge Note ---
Date of Service February 24, 2022 History & Physical Bridge Note I have examined the patient, reviewed the History & Physical and in the interval since the performance of the History & Physical I have noted the following changes of clinical significance: no changes made. Pt without further episode of rectal bleeding since admission. She was seen in consult by GI who advised to continue holding Eliquis for now and plan to proceed with outpatient colonoscopy (no plan for inpatient scope). Will observe today, follow H&H, trend AM labs. Advance diet as no plan for inpatient scope at this time. If no further episodes of rectal bleeding and H&H remain stable, can consider d/c tomorrow.
[2022-02-24 16:56] LABS: Hematocrit (blood only) 32.2 % (34.1-44.9); Hemoglobin 10.2 g/dl (12.0-16.0)
[2022-02-25 07:05] LABS: Basophils # (auto) 0.09 K/uL (0-0.2); Basophils % (auto) 1.1 %; Eosinophils # (auto) 0.21 K/uL (0-0.50); Eosinophils % (auto) 2.5 %; Hematocrit (blood only) 31.5 % (34.1-44.9); Immature Granulocytes # (auto) 0.05 K/uL (0.00-0.02); Immature Granulocytes % (auto) 0.6 %; Lymphocytes # (auto) 2.37 K/uL (1.2-3.4); Lymphocytes % (auto) 27.8 %; Mean Corpuscular Hemoglobin 27.4 pg (25.0-34.0); Mean Corpuscular Hgb Conc 31.7 g/dL (32.0-36.0); Mean Corpuscular Volume 86.3 fL (80.0-100.0); Mean Platelet Volume 9.5 fL (9.4-12.3); Monocytes # (auto) 1.12 K/uL (0.24-0.82); Monocytes % (auto) 13.2 %; Neutrophils # (auto) 4.67 K/uL (1.4-6.5); Neutrophils % (auto) 54.8 %; Platelet Count 207 K/uL (130-400); RDW Coefficient of Variation 18.7 % (11.5-14.5); RDW Standard Deviation 58.5 fL (36.4-46.3); Red Blood Count 3.65 M/uL (3.93-5.22); White Blood Count 8.51 K/ul (4.8-10.8)
[2022-02-25 07:29] LABS: Albumin Globulin Ratio 1.4 (0.9-2); Albumin Level 2.8 gm/dl (3.4-5.0); Bilirubin,Total 1.1 mg/dl (0.2-1.0); Calcium 8.7 mg/dl (8.5-10.1); Creatinine Clr Calc Pharmacy 44.5 ml/min; Est GFR (African American) 74.5 ml/min; Est GFR (Non-African American) 64.3 ml/min; Magnesium 1.5 mg/dl (1.7-2.4); Potassium 3.8 mmol/L (3.5-5.1); Total Protein 4.8 gm/dl (6.0-8.3)
[2022-02-25] MEDS: METOPROLOL TARTRATE 50 MG TAB PO SCH (08:46)
[2022-02-25] MEDS: AMIODARONE 200 MG TAB PO SCH (08:46)
[2022-02-25] MEDS: MAGNESIUM SULFATE / D5W 1 GM/100 ML BAG IV SCH ×2 (08:52→10:49)
[2022-02-25] MEDS ORDERED: DULoxetine HCL 30 MG CAP PO SCH (09:00)
[2022-02-25] MEDS ORDERED: GABAPENTIN 300 MG CAP PO SCH (09:00)
[2022-02-25] MEDS ORDERED: HYDROXYCHLOROQUINE SULFATE 200 MG TAB PO SCH (09:00)
[2022-02-25] MEDS ORDERED: predniSONE 5 MG TAB PO SCH (09:00)
[2022-02-25] MEDS ORDERED: OXYBUTYNIN CHLORIDE XL 5 MG TABCR PO SCH (09:00)
--- NOTE | 2022-02-25 09:03 | Communication Note ---
Date of Service: February 25, 2022 No further bleeding since she has been here. hgb remains relatively stable. She tells me she is planned for discharge today. we discussed moving up her co lonoscopy but she tells me that she prefers to keep this for 03/12/22 as scheduled. gi ros unremarkable.
[2022-02-25] MEDS: PANTOprazole 40 MG in SYRINGE 0 ML IV SCH (10:49)
--- NOTE | 2022-02-25 11:52 | Discharge Summary ---
Date of Service February 25, 2022 Admission HPI Per Admitting Provider The patient is a 71-year-old female with a past medical history including status post right AKA, occlusion of femoral artery, occlusion of stented peripheral artery, overactive bladder, osteoporosis, cervical neuropathy, hyperparathyroidism, chronic reflux esophagitis, rheumatoid arthritis, hypertension, GERD, paroxysmal defibrillation, paroxysmal SVT and history of Hodgkin's lymphoma. She is status post right AKA during admission from 11/07- 11/28/2021 due to femoral artery occlusion. She has been on Eliquis for stroke prevention due to atrial fibrillation. This evening is a first time they have noted any bleeding associated with anticoagulation. She denies any abdominal pain or rectal pain. She denies any recent travels or sick exposures. Principal Diagnosis 1. Rectal bleeding 2. Chronic SEBASTIÁN - stable 3. Hypomagnesemia - replaced Discharge Exam GENERAL: 71 yo Well-developed, well-nourished elderly WF. NAD. LUNGS: Clear to auscultation bilaterally. No accessory muscle use. No W/R/R. CARDIOVASCULAR: Regular rate and rhythm. ABDOMEN: Soft, non-tender and non-distended. BS normoactive x 4 quad. EXTREMITIES: No edema. Non-tender. Peripheral pulses +2/4. s/p r AKA NEUROLOGIC: A&O x3. PSYCHIATRIC: Cooperative. Appropriate mood and affect. SKIN: Warm, dry, intact. No rashes or lesions. Discharge Data Allergies Allergy/AdvReac Type Severity Reaction Status Date / Time dalbavancin Allergy Severe hypotension, Verified 02/24/22 01:24 flushing, tachypnea Consultations 02/24/22 01:13 ED Decision to Admit Stat 02/24/22 04:31 Consult Cardiology Routine Consult Gastroenterology Routine Ordered Studies 02/25/22 06:37 02/25/22 06:37 Hospital Course (1) Rectal bleeding: Blood noted on toilet paper and a few clots in bowl Initially made NPO except meds Patient did have positive Cologuard test and was scheduled for colonoscopy with Dr. Martin on 03/12 Seen by GI on 02/24, no plans for intervention while in-house, diet advanced Serial H&Hs remained stable Typed and screened but has not needed transfusion Eliquis on hold, would continue to hold until after her colonoscopy No further episodes of rectal bleeding since she's been in the hospital Will continue FeSO4 and holding Eliquis until after her colo - can likely be resumed after Did discuss that she would be at an increased risk of cva if she should go back into afib while off the eliquis-she verbalized understanding regarding this (2) Chronic anticoagulation: Hold Eliquis, last dosing given was around 6:30 this evening As above-hold Eliquis until after colonoscopy, can resume afterwards if ok with GI (3) Positive colorectal cancer screening using Cologuard test: Scheduled for colonoscopy on 03/12, pt did not want to move this up any sooner GI did not feel colo was warranted during this admission since rectal bleeding did not persist and H&H remained stable (4) Right above-knee amputee: Noted during hospitalization from 11/07-11/28/2021 (5) Overactive bladder: Hold oxybutynin (6) Acute blood loss anemia: Serial H&Hs remained stable throughout her stay (7) Chronic reflux esophagitis: Placed on protonix 40 mg IV daily, can resume omeprazole upon dc (8) Rheumatoid arthritis: Held hydroxychloroquine, arava, and prednisone initially, but can be resumed upon dc (9) PAF (paroxysmal atrial fibrillation): PAF/PSVT/hypertension- Continue amiodarone 200 mg p.o. daily and metoprolol tartrate 50 mg p.o. twice daily Hold Eliquis as noted (10) Hypertension: BP slightly accelerated in the hospital (11) History of Hodgkin's lymphoma: Plan Medically and hemodynamically stable for discharge home today with outpatient f/u with her pcp within 1 week and GI as scheduled. Hold Eliquis as instructed. Plan has been d/w Dr. Abhijeet Ribeiro who has also seen and evaluated this patient prior to discharge and is in agreement with aforementioned. Total Time Total Time Spent Total Time Spent (In Minutes): >30 minutes Discharge Plan Discharge Items Patient Disposition: Home - Self-Care Reason For Visit: LOWER GI BLEED Discharge Diagnosis: rectal bleeding Activity: Resume your previous activity Non-emergency contact: Primary Care Provider Call non-emergency contact if: you have any medication questions and your symptoms worsen Follow-up/Referrals: Sylvia Nails MD [Primary Care Provider] - Diet: Regular Addtl Attending Provider Instructions: You were hospitalized due to rectal bleeding. Fortunately, your blood count did not drop. You were seen by the gastroenterology group who did not feel that it was necessary to perform a colonoscopy while you were here in the hospital as you have had no further episodes of bleeding. You are scheduled for a colonoscopy on 03/12/22. Please keep this procedure scheduled as arranged. If you should have any further episodes of rectal bleeding, I would recommend that you contact the manager customer's office directly to ask for guidance. The number to [facility] [place] is [phone]. You are being ordered follow up blood work to be done in 1 week. This will check your blood levels to ensure that it continues to remain stable. For now, we want you to continue holding your Eliquis until otherwise advised to resume by gastroenterology. You should be able to resume it following your colonoscopy. Remember, as we discussed, that while you are off of your Eliquis, if you should go back into atrial fibrillation, you will be at a higher risk of stroke. It is advised that you follow up with your family doctor within 1 week of discharge. In the event of any questions that arise after you leave the hospital, you can call the nonemergency number listed on your paperwork. Call 911 for any medical emergency. Pending Studies at Discharge: No Stand-Alone Forms: [facility], Smoking Cessation Medications and DC Order Prescriptions: Continued meclizine 25 mg tablet 25 mg PO BID PRN (Reason: dizziness) Qty: 20 0RF potassium chloride 10 mEq capsule, extended release 10 meq PO QAM Qty: 90 3RF duloxetine 30 mg capsule,delayed release(DR/EC) 30 mg PO DAILY Qty: 90 3RF oxybutynin chloride 15 mg tablet extended release 24 hr 15 mg PO DAILY Qty: 30 2RF ferrous sulfate 325 mg (65 mg iron) tablet 325 mg PO QAM Qty: 90 1RF amiodarone 200 mg tablet 200 mg PO DAILY Qty: 90 1RF peg 3350-electrolytes [Golytely] 236-22.74-6.74 -5.86 gram recon soln 240 ml PO Q10M Qty: 4000 0RF Rx Instructions: Take per split dose instructions sennosides [senna] 8.6 mg tablet 8.6 mg PO DAILY PRN (Reason: Constipation) furosemide 40 mg tablet 40 mg PO DAILY PRN (Reason: Edema) leflunomide [Arava] 20 mg tablet 20 mg PO QAM metoprolol tartrate 50 mg tablet 50 mg PO BID Qty: 180 3RF prednisone 5 mg Tablet 5 mg PO QAM prednisone 1 mg Tablet 1 mg PO QPM Probiotic 3 billion cell Capsule 3,000 mmu cells PO QAM Macuvite Eye Care 7,160 unit-113 mg-100 unit Tablet 1 tab PO QAM calcitriol [Rocaltrol] 0.5 mcg capsule 0.5 mcg PO 2XWK Rx Instructions: Mondays and Fridays omeprazole 20 mg capsule,delayed release(DR/EC) 20 mg PO BID cranberry 500 mg Capsule 500 mg PO QPM gabapentin 300 mg capsule 300 mg PO TID Calcium 600 + D(3) 600 mg calcium- 200 unit Capsule 1 cap PO BID hydroxychloroquine [Plaquenil] 200 mg tablet 200 mg PO DAILY Discontinued Eliquis 5 mg tablet 5 mg PO BID Qty: 180 1RF Discharge Orders: Discharge Order (Routine); Ordered 02/25/22 Ordered By: Mi Nava Admission Data Admit Date/Time: 02/24/22 01:51 Attending Provider: Abhijeet Ribeiro Admit Provider: Heri Wellington Primary Care Provider: Sylvia Nails Other Providers: Edd Vance ; Stevie Martin ; Heri Wellington Other Interventions: Discharge Summary Assessment (RN) Last Done: 02/25/22 13:22 Supervising Physician Co-Signing Physician Notes I supervised Mi Nava PA-C on the care of this patient. I interviewed and examined the patient independently of her. The plan is as written in her note except for any following changes/exceptions: None No need for blood transfusion. Bleeding has stopped. Agree with holding anticoagulation until colonoscopy in 2 weeks. Risks are minimal for CVA, especially if she is in NSR while on amiodarone. Coding Level of Care Code D/C DAY MANAGEMENT >30 MINS Diagnoses Rectal bleeding K62.5 Chronic anticoagulation Z79.01 Positive colorectal cancer screening using Cologuard test R19.5 Right above-knee amputee Z89.611 Overactive bladder N32.81 Acute blood loss anemia D62 Chronic reflux esophagitis K21.0 Rheumatoid arthritis M06.9 PAF (paroxysmal atrial fibrillation) I48.0 Hypertension I10 History of Hodgkin's lymphoma Z85.71
[2022-02-25] MEDS ORDERED: predniSONE 1 MG TAB PO SCH (21:00)
== END 2022-02-25 14:24 | disposition home or self-care (01) ==
LOC: ED 22:36 → EDINP 02-24 01:51 → INTOOBSV 02-24 01:51 → SUATTDRO 02-24 01:51 → 2S 02-24 04:33

== ENCOUNTER 2022-07-14 18:54 | Inpatient (IN) ==
--- NOTE | 2022-07-14 19:09 | Emergency Department Note ---
Impression & Plan Bradycardia, Junctional bradycardia ADMIT ED Provider Note HPI: The patient is a 71-year-old female with history of atrial fibrillation, anticoagulated on Xarelto, on metoprolol twice daily, who presents emergency department with a chief complaint of nausea and headache. Patient was noted to be bradycardic in the field per EMS and was given atropine. Patient states that earlier this afternoon around 3 PM she was being assisted into bed by her as she does have a history of a AKA on the right side. Patient states shortly after that she began to feel nauseated and had a slight headache. She overall did not feel well and therefore her contacted EMS for the patient to be transported to the ED. EMS noted the patient to be bradycardic in the 30s with a junctional rhythm on EKG, she was given atropine. On arrival here to the ED the patient's heart rate is in the mid 40s, blood pressure is 130 systolic, patient is saturating well on room air, denies any chest pain or shortness of breath, states she has a slight headache but overall feels much improved from previous today. ROS: - Per HPI *Outpatient medications and allergy history reviewed. *Pertinent external medical records reviewed. 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 Stated earlier today she felt unwell and after several hours her contacted EMS. On arrival here to the ED the patient appears in no acute distress, states she is feeling improved from previous. No longer feels nauseated. EKG shows a junctional bradycardia with a rate of 45, case was discussed with on-call cardiology, Dr. Fuentes, who did evaluate the patient's EKG, he feels it is consistent with a junctional rhythm and not current high degree heart block. Given the patient's hemodynamic stability he recommends admission for observation and cardiology consultation in the morning for further testing. Patient is noted to be on high doses of metoprolol, this also could be playing a role in her bradycardia. She states she did take her morning dose of 50 mg. 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 Lab work does not show any critical findings, no leukocytosis, stable anemia, no critical electrolyte abnormalities are noted. Patient's troponin is elevated at 84, she denies any chest pain, no ischemic changes on her EKG, low suspicion for ACS at this time. Case was discussed with the on-call hospitalist, Dr. Brady, and the patient was admitted in stable condition for further care. Disposition discussion held by myself with: Patient and Diagnosis: 1. Junctional bradycardia 2. Elevated troponin level 3. Nausea, acute Disposition: Admission Paco Kay DO Emergency Medicine Past Med/Surg History Medical History Acute bronchitis Acute respiratory failure with hypoxia Chronic back pain Chronic steroid use Closed fracture of coccyx Constipation due to opioid therapy DDD (degenerative disc disease) GI bleed HOSPITALIZED 02/24/22 AT OR (ELIQUIS ON HOLD) Hip dislocation, left RECENT DX (CAN LAY ON LEFT SIDE ONLY) History of coronary angiogram Right Lower Extremity Arteriogram, Percutaneous Transluminal Angioplasty and Stenting of Right Superficial Femoral Artery History of COVID-19 hospitalized 07/16/20 [facility]. hypoxia, fever, cough, chills, loss of taste/smell. RESOLVED History of Hodgkin's lymphoma 2003/under surveillance by PCP/Dr. Thibodeaux- S/p chemo in 2003- none since History of oral cancer s/p tongue excision left side (no chemo/no XRT 2013) No issues since Hypertension Hypomagnesemia Overactive bladder PAD (peripheral artery disease) PAF (paroxysmal atrial fibrillation) hx - on Eliquis Paroxysmal SVT (supraventricular tachycardia) hx (follows with Dr. Vance) RA (rheumatoid arthritis) on chronic steroid Skin benign neoplasm Surgical History H/O foot surgery TOES X MULTIPLE H/O parathyroidectomy History of above knee amputation RT>NO PROSTHETIC (USING W/C) History of biopsy Of soft tissue of the neck History of breast surgery Puncture aspiration of cyst History of carpal tunnel release RIGHT History of colonoscopy History of colposcopy with cervical biopsy with endocervical curettage History of glossectomy with unilateral radical neck dissection History of hip surgery R/L REVISION Left MAURO revision: 11/09/18: SABx1 at L3-L4 at [facility] MULTIPLE HIP SURGERIES History of spinal surgery 10/02/[address] [facility] [address] Sanford>LUMBAR AREA History of total hip arthroplasty R/L History of total knee replacement R/L History of tubal ligation Hx of hand surgery RIGHT Hx of knee surgery MULTIPLE SURGERIES ON RT LEG Right TKA revision, I&D, antibiotic spacer: 12/29/19: SAB + PNB at [facility] PONV (postoperative nausea and vomiting) S/P revision of total knee 12/29/19 Dr. 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 And Ventilating Drafter Required: No Beliefs That Will Affect Care: None marital status: Current Living Situation: Spouse current occupational status: retired How many Children do You have: 1 Other Information That Helps Us Care for You: No Feels Safe at Home: Yes Safety Concerns: Feels Safe At This Time Childhood Exposure to Second-Hand Smoke: Yes caffeine: Yes Dental Care, Regularly: Yes Physical Activity Frequency: Other Physical Activity Frequency Comment: Limited by a physical condition Seatbelt Use: always Sunscreen Use: Yes Assistive Devices: Wheelchair Allergies Allergies Allergy/AdvReac Type Severity Reaction Status Date / Time dalbavancin Allergy Severe hypotension, Verified 07/14/22 22:44 flushing, tachypnea Home Meds Home Medications Medication Instructions Recorded Confirmed lactobacillus combination no.4 3 3,000 mmu cells PO QAM 03/30/18 07/14/22 billion cell capsule (Probiotic) cranberry 500 mg capsule 500 mg PO QPM 09/29/18 07/14/22 vit A 7,160 unit-vit C 113 mg-vit 1 tab PO QAM 10/08/18 07/14/22 E-zinc mt-bpyrhz-kezolu 1 mg tablet ([facility]) calcium carbonate 600 mg-vitamin 1 cap PO BID 07/16/20 07/14/22 D3 5 mcg (200 unit) capsule (Calcium 600 + D(3)) sennosides 8.6 mg tablet (senna) 8.6 mg PO DAILY PRN Constipation 02/28/21 07/14/22 hydroxychloroquine 200 mg tablet 200 mg PO DAILY 10/02/21 07/14/22 (Plaquenil) furosemide 40 mg tablet 40 mg PO DAILY PRN Edema 12/19/21 07/14/22 Previous Rx's Medication Instructions Recorded meclizine 25 mg tablet 25 mg PO BID PRN dizziness #20 tabs 07/26/21 duloxetine 30 mg capsule,delayed 30 mg PO DAILY #90 caps 12/30/21 release potassium chloride 10 mEq 10 meq PO QAM #90 caps 12/30/21 capsule,extended release ferrous sulfate 325 mg (65 mg 325 mg PO QAM #90 tabs 02/03/22 iron) tablet amiodarone 200 mg tablet 200 mg PO DAILY #90 tabs 02/11/22 metoprolol tartrate 50 mg tablet 50 mg PO BID #180 tabs 03/04/22 oxybutynin chloride 15 mg 15 mg PO DAILY #90 tabs 03/04/22 tablet,extended release 24 hr calcitriol 0.5 mcg capsule 0.5 mcg PO 2XWK #30 caps 03/05/22 (Rocaltrol) leflunomide 20 mg tablet (Arava) 20 mg PO QAM #90 tabs 05/14/22 apixaban 5 mg tablet (Eliquis) 5 mg PO BID #180 tabs 05/19/22 omeprazole 20 mg capsule,delayed 20 mg PO BID #180 caps 05/27/22 release prednisone 1 mg tablet 1 mg PO QPM #90 tabs 06/10/22 prednisone 5 mg tablet 5 mg PO QAM #90 tabs 06/10/22 gabapentin 300 mg capsule 300 mg PO TID 90 days #270 caps 07/01/22 Results & Data (ED) Vital Signs Vital Signs - 24 hr 07/14/22 18:56 07/14/22 19:11 07/14/22 19:11 Temperature 37.2 C Temperature Source Oral Pulse Rate 45 L Pulse Rate [Apical] 44 L Respiratory Rate 18 18 Respiratory Effort / Characteristics Non-Labored Spontaneous Non-Labored Respiratory Depth Normal Normal Blood Pressure 131/47 L Blood Pressure [Right Arm] 146/48 H Blood Pressure Mean 75 Blood Pressure Mean [Right Arm] 80 Pulse Oximetry 96 95 Oxygen Delivery Method Room Air Room Air Room Air Sepsis Recent Fever Within 48 Hours No Sepsis New/Unexplained Change in Mental Status No Sepsis Action Taken by Nursing No Action Required 07/14/22 19:30 07/14/22 19:59 07/14/22 20:42 Temperature Temperature Source Pulse Rate Pulse Rate [Apical] 42 L 41 L Respiratory Rate 18 18 Respiratory Effort / Characteristics Non-Labored Non-Labored Respiratory Depth Normal Normal Blood Pressure Blood Pressure [Right Arm] 113/70 132/55 L Blood Pressure Mean Blood Pressure Mean [Right Arm] 84 80 Pulse Oximetry 94 94 96 Oxygen Delivery Method Room Air Nasal Cannula Room Air Sepsis Recent Fever Within 48 Hours Sepsis New/Unexplained Change in Mental Status Sepsis Action Taken by Nursing 07/14/22 21:00 07/14/22 21:00 07/14/22 21:30 Temperature Temperature Source Pulse Rate 41 L 41 L Pulse Rate [Apical] Respiratory Rate 12 19 Respiratory Effort / Characteristics Respiratory Depth Blood Pressure 145/75 H Blood Pressure [Right Arm] Blood Pressure Mean 98 Blood Pressure Mean [Right Arm] Pulse Oximetry 98 97 Oxygen Delivery Method Room Air Sepsis Recent Fever Within 48 Hours Sepsis New/Unexplained Change in Mental Status Sepsis Action Taken by Nursing 07/14/22 21:54 07/14/22 21:54 07/14/22 22:30 Temperature Temperature Source Pulse Rate 43 L 43 L Pulse Rate [Apical] Respiratory Rate 19 16 Respiratory Effort / Characteristics Respiratory Depth Blood Pressure 137/53 L Blood Pressure [Right Arm] Blood Pressure Mean 81 Blood Pressure Mean [Right Arm] Pulse Oximetry 94 97 Oxygen Delivery Method Room Air Room Air Sepsis Recent Fever Within 48 Hours Sepsis New/Unexplained Change in Mental Status Sepsis Action Taken by Nursing 07/14/22 22:31 07/14/22 22:31 Temperature Temperature Source Pulse Rate 42 L Pulse Rate [Apical] Respiratory Rate 17 Respiratory Effort / Characteristics Respiratory Depth Blood Pressure 154/56 H Blood Pressure [Right Arm] Blood Pressure Mean 88 Blood Pressure Mean [Right Arm] Pulse Oximetry 95 Oxygen Delivery Method Room Air Sepsis Recent Fever Within 48 Hours Sepsis New/Unexplained Change in Mental Status Sepsis Action Taken by Nursing Laboratory Data 07/15/22 06:22 07/15/22 06:22 Lab Results 07/14/22 07/14/22 07/14/22 Range/Units 19:30 19:30 19:30 WBC 8.02 (4.8-10.8) K/ul RBC 3.97 (3.93-5.22) M/uL Hgb 11.9 L (12.0-16.0) g/dl Hct 37.5 (34.1-44.9) % MCV 94.5 (80.0-100.0) fL MCH 30.0 (25.0-34.0) pg MCHC 31.7 L (32.0-36.0) g/dL RDW Std Deviation 55.4 H (36.4-46.3) fL RDW Coeff of Jarvis 16.0 H (11.5-14.5) % Plt Count 235 (130-400) K/uL MPV 10.9 (9.4-12.3) fL Immature Gran % (Auto) 1.7 % Neut % (Auto) 71.1 % Lymph % (Auto) 12.8 % Haralson % (Auto) 10.6 % Eos % (Auto) 2.6 % Baso % (Auto) 1.2 % Neut # (Auto) 5.69 (1.4-6.5) K/uL Lymph # (Auto) 1.03 L (1.2-3.4) K/uL Haralson # (Auto) 0.85 H (0.24-0.82) K/uL Eos # (Auto) 0.21 (0-0.50) K/uL Baso # (Auto) 0.10 (0-0.2) K/uL Immature Gran # (Auto) 0.14 H (0.00-0.02) K/uL PT (9.0-12.0) Seconds INR (0.9-1.1) APTT (21.0-31.0) Seconds PTT Ratio Sodium 138 (136-145) mmol/L Potassium 5.2 H (3.5-5.1) mmol/L Chloride 106 (98-107) mmol/L Carbon Dioxide 24 (21-32) mmol/L Anion Gap 8 (3-11) BUN 24 H (6-23) mg/dl Creatinine 1.37 H (0.6-1.2) mg/dl Est Cr Clr Drug Dosing 28.9 ml/min Est GFR ( Amer) 44.2 ml/min Est GFR (Non-Af Amer) 38.2 ml/min BUN/Creatinine Ratio 17.5 (10-20) Glucose 123 H (70-99(Fasting)) mg/dl Calcium 9.1 (8.5-10.1) mg/dl Magnesium 1.9 (1.7-2.4) mg/dl Total Bilirubin 1.2 H (0.2-1.0) mg/dl AST 49 H (13-39) U/L ALT 30 (7-52) U/L Alkaline Phosphatase 163 H (34-104) U/L Troponin I High Sens 84.4 H* (0-14) pg/ml Total Protein 6.0 (6.0-8.3) gm/dl Albumin 3.4 (3.4-5.0) gm/dl Globulin 2.6 (2.5-4.0) gm/dl Albumin/Globulin Ratio 1.3 (0.9-2) Lipase 7 L (11-82) U/L TSH 2.131 (0.300-4.500) uIu/ml Free T4 (0.61-1.60) ng/dl Free T3 (2.3-4.2) pg/ml SARS-CoV-2, RNA, NAAT (NEGATIVE) 07/14/22 07/14/22 07/14/22 Range/Units 19:30 19:30 19:30 WBC (4.8-10.8) K/ul RBC (3.93-5.22) M/uL Hgb (12.0-16.0) g/dl Hct (34.1-44.9) % MCV (80.0-100.0) fL MCH (25.0-34.0) pg MCHC (32.0-36.0) g/dL RDW Std Deviation (36.4-46.3) fL RDW Coeff of Jarvis (11.5-14.5) % Plt Count (130-400) K/uL MPV (9.4-12.3) fL Immature Gran % (Auto) % Neut % (Auto) % Lymph % (Auto) % Haralson % (Auto) % Eos % (Auto) % Baso % (Auto) % Neut # (Auto) (1.4-6.5) K/uL Lymph # (Auto) (1.2-3.4) K/uL Haralson # (Auto) (0.24-0.82) K/uL Eos # (Auto) (0-0.50) K/uL Baso # (Auto) (0-0.2) K/uL Immature Gran # (Auto) (0.00-0.02) K/uL PT 13.6 H (9.0-12.0) Seconds INR 1.3 H (0.9-1.1) APTT 30.8 (21.0-31.0) Seconds PTT Ratio 1.1 Sodium (136-145) mmol/L Potassium (3.5-5.1) mmol/L Chloride (98-107) mmol/L Carbon Dioxide (21-32) mmol/L Anion Gap (3-11) BUN (6-23) mg/dl Creatinine (0.6-1.2) mg/dl Est Cr Clr Drug Dosing ml/min Est GFR ( Amer) ml/min Est GFR (Non-Af Amer) ml/min BUN/Creatinine Ratio (10-20) Glucose (70-99(Fasting)) mg/dl Calcium (8.5-10.1) mg/dl Magnesium (1.7-2.4) mg/dl Total Bilirubin (0.2-1.0) mg/dl AST (13-39) U/L ALT (7-52) U/L Alkaline Phosphatase (34-104) U/L Troponin I High Sens (0-14) pg/ml Total Protein (6.0-8.3) gm/dl Albumin (3.4-5.0) gm/dl Globulin (2.5-4.0) gm/dl Albumin/Globulin Ratio (0.9-2) Lipase (11-82) U/L TSH (0.300-4.500) uIu/ml Free T4 1.43 (0.61-1.60) ng/dl Free T3 2.62 (2.3-4.2) pg/ml SARS-CoV-2, RNA, NAAT (NEGATIVE) 07/14/22 Range/Units 22:01 WBC (4.8-10.8) K/ul RBC (3.93-5.22) M/uL Hgb (12.0-16.0) g/dl Hct (34.1-44.9) % MCV (80.0-100.0) fL MCH (25.0-34.0) pg MCHC (32.0-36.0) g/dL RDW Std Deviation (36.4-46.3) fL RDW Coeff of Jarvis (11.5-14.5) % Plt Count (130-400) K/uL MPV (9.4-12.3) fL Immature Gran % (Auto) % Neut % (Auto) % Lymph % (Auto) % Haralson % (Auto) % Eos % (Auto) % Baso % (Auto) % Neut # (Auto) (1.4-6.5) K/uL Lymph # (Auto) (1.2-3.4) K/uL Haralson # (Auto) (0.24-0.82) K/uL Eos # (Auto) (0-0.50) K/uL Baso # (Auto) (0-0.2) K/uL Immature Gran # (Auto) (0.00-0.02) K/uL PT (9.0-12.0) Seconds INR (0.9-1.1) APTT (21.0-31.0) Seconds PTT Ratio Sodium (136-145) mmol/L Potassium (3.5-5.1) mmol/L Chloride (98-107) mmol/L Carbon Dioxide (21-32) mmol/L Anion Gap (3-11) BUN (6-23) mg/dl Creatinine (0.6-1.2) mg/dl Est Cr Clr Drug Dosing ml/min Est GFR ( Amer) ml/min Est GFR (Non-Af Amer) ml/min BUN/Creatinine Ratio (10-20) Glucose (70-99(Fasting)) mg/dl Calcium (8.5-10.1) mg/dl Magnesium (1.7-2.4) mg/dl Total Bilirubin (0.2-1.0) mg/dl AST (13-39) U/L ALT (7-52) U/L Alkaline Phosphatase (34-104) U/L Troponin I High Sens (0-14) pg/ml Total Protein (6.0-8.3) gm/dl Albumin (3.4-5.0) gm/dl Globulin (2.5-4.0) gm/dl Albumin/Globulin Ratio (0.9-2) Lipase (11-82) U/L TSH (0.300-4.500) uIu/ml Free T4 (0.61-1.60) ng/dl Free T3 (2.3-4.2) pg/ml SARS-CoV-2, RNA, NAAT NEGATIVE (NEGATIVE) Administered Medications Amiodarone HCl (Amiodarone 200 Mg Tab) 200 mg PO DAILY ANGELO Stop: 08/14/22 08:59 Last Admin: 07/15/22 08:05 Dose: Not Given Documented By: Apixaban (Apixaban 5 Mg Tablet) 5 mg PO BID ANGELO Stop: 08/14/22 08:59 Last Admin: 07/15/22 07:59 Dose: 5 mg Documented By: Calcium/Vitamin D (Calcium 600mg + Vit D 400 Iu Tab) 1 tab PO BID ANGELO Stop: 08/14/22 08:59 Last Admin: 07/15/22 08:00 Dose: 1 tab Documented By: Duloxetine HCl (Duloxetine Hcl 30 Mg Cap) 30 mg PO DAILY ANGELO Stop: 08/14/22 08:59 Last Admin: 07/15/22 08:00 Dose: 30 mg Documented By: Ferrous Sulfate (Ferrous Sulfate 325 Mg Tab) 325 mg PO QAM ANGELO Stop: 08/14/22 08:59 Last Admin: 07/15/22 08:00 Dose: 325 mg Documented By: Gabapentin (Gabapentin 300 Mg Cap) 300 mg PO TID ANGELO Stop: 08/14/22 08:59 Last Admin: 07/15/22 08:01 Dose: 300 mg Documented By: ELIN Hydroxychloroquine Sulfate (Hydroxychloroquine Sulfate 200 Mg Tab) 200 mg PO DAILY ANGELO Stop: 08/14/22 08:59 Last Admin: 07/15/22 08:01 Dose: 200 mg Documented By: ELIN Leflunomide (Leflunomide 10 Mg Tab) 20 mg PO QAM ANGELO Stop: 08/14/22 08:59 Last Admin: 07/15/22 08:02 Dose: 20 mg Documented By: ELIN Oxybutynin Chloride (Oxybutynin Chloride Xl 5 Mg Tabcr) 15 mg PO DAILY ANGELO Stop: 08/14/22 08:59 Last Admin: 07/15/22 08:03 Dose: 15 mg Documented By: ELIN Pantoprazole Sodium (Pantoprazole 40 Mg Tab) 40 mg PO BID ANGELO Stop: 08/14/22 08:59 Last Admin: 07/15/22 08:03 Dose: 40 mg Documented By: ELIN Prednisone (Prednisone 5 Mg Tab) 5 mg PO QAM ANGELO Stop: 08/14/22 08:59 Last Admin: 07/15/22 08:04 Dose: 5 mg Documented By: ELIN Discontinued Medications Hydrocodone Bitart/Acetaminophen (Hydrocodone/Acetamophen 5/325mg Tab) 1 tab PO ONE STA Stop: 07/14/22 23:02 Last Admin: 07/14/22 23:22 Dose: 1 tab Documented By: Apixaban (Apixaban 5 Mg Tablet) 5 mg PO ONE STA Stop: 07/14/22 23:00 Last Admin: 07/14/22 23:22 Dose: 5 mg Documented By: Discharge Plan Visit Data Chief Complaint: Bradycardia ED Provider: Paco Kay Discharge Problem: Bradycardia, Junctional bradycardia Patient Disposition: Admitted As Inpatient Discharge Instructions Interventions: ED Discharge Assessment Last Done: 07/14/22 23:24
[2022-07-14 19:47] LABS: Basophils % (auto) 1.2 %; Eosinophils # (auto) 0.21 K/uL (0-0.50); Eosinophils % (auto) 2.6 %; Hematocrit (blood only) 37.5 % (34.1-44.9); Hemoglobin 11.9 g/dl (12.0-16.0); Immature Granulocytes # (auto) 0.14 K/uL (0.00-0.02); Immature Granulocytes % (auto) 1.7 %; Lymphocytes # (auto) 1.03 K/uL (1.2-3.4); Lymphocytes % (auto) 12.8 %; Mean Corpuscular Hgb Conc 31.7 g/dL (32.0-36.0); Mean Corpuscular Volume 94.5 fL (80.0-100.0); Mean Platelet Volume 10.9 fL (9.4-12.3); Monocytes # (auto) 0.85 K/uL (0.24-0.82); Monocytes % (auto) 10.6 %; Neutrophils # (auto) 5.69 K/uL (1.4-6.5); Neutrophils % (auto) 71.1 %; Platelet Count 235 K/uL (130-400); RDW Standard Deviation 55.4 fL (36.4-46.3); Red Blood Count 3.97 M/uL (3.93-5.22); White Blood Count 8.02 K/ul (4.8-10.8)
--- NOTE | 2022-07-14 19:50 | XRay Report ---
XR chest 1V portable HISTORY: Chest pain, nonspecific COMPARISON: Chest 11/03/2021. FINDINGS: No pneumothorax. No pleural effusions. No focal lung consolidations to suggest a pneumonia. No evidence for pulmonary edema. Mild chronic interstitial thickening, unchanged. The heart remains mildly enlarged. Advanced degenerative changes again noted within the shoulders. Partially visualized lumbar spinal fusion hardware. Mild emphysema. IMPRESSION: 1. Stable mild cardiomegaly and chronic interstitial change. 2. Mild emphysema. ACT 112: Negative or not required by law. Electronically signed by: Jze Mckay M.D. 07/14/2022 7:49 PM
[2022-07-14 20:00] LABS: INR 1.3 (0.9-1.1); Partial Thromboplastin Ratio 1.1; Partial Thromboplastin Time 30.8 Seconds (21.0-31.0); Prothrombin Time 13.6 Seconds (9.0-12.0)
[2022-07-14 20:18] LABS: Albumin Globulin Ratio 1.3 (0.9-2); Albumin Level 3.4 gm/dl (3.4-5.0); BUN Creatinine Ratio 17.5 (10-20); Bilirubin,Total 1.2 mg/dl (0.2-1.0); Calcium 9.1 mg/dl (8.5-10.1); Creatinine Clr Calc Pharmacy 28.9 ml/min; Est GFR (African American) 44.2 ml/min; Est GFR (Non-African American) 38.2 ml/min; Globulin 2.6 gm/dl (2.5-4.0); Magnesium 1.9 mg/dl (1.7-2.4); Potassium 5.2 mmol/L (3.5-5.1)
[2022-07-14 20:46] LABS: Troponin I High Sensitivity 84.4 pg/ml (0-14)
[2022-07-14] MEDS ORDERED: APIXABAN 5 MG TABLET PO STA (22:59)
[2022-07-14] MEDS ORDERED: HYDROCODONE/ACETAMOPHEN 5/325MG TAB PO STA (23:01)
--- NOTE | 2022-07-14 23:15 | History & Physical Report ---
Date of Service July 14, 2022 Assessment & Plan (1) Bradycardia: Plan: Patient is a 71-year-old female with past medical history of rheumatoid arthritis, paroxysmal supraventricular tachycardia, paroxysmal atrial fibrillation, hypertension, chronic anticoagulation, right above-knee amputation, left ventricular hypertrophy, cervical neuropathy, and chronic opioid use who presented to the ED for the chief complaint of bradycardia. Patient received atropine and is currently hemodynamically stable and heart rate is consistently in the mid to low 40s without any signs of poor perfusion. -Admit to telemetry -Discussed case with cardiology who believes EKG is consistent with junctional bradycardia -Hold metoprolol in the setting of bradycardia -Continue amiodarone -Continue Eliquis -Consult cardiology, appreciate recommendations -Hold meclizine -Activity out of bed with assistance. -Incentive Spirometry -Echocardiogram in the morning -Recheck EKG in the morning -AM CBC, CMP, magnesium, phosphorus (2) Elevated troponin: Plan: -Troponin at 84 at initial evaluation in the ED -Repeat troponin pending at the time of writing this note. -As patient also has elevated liver enzymes and SALONI, suspect elevated troponin is due to bradycardia and demand ischemia. (3) Elevated liver enzymes: Plan: -Likely secondary to demand ischemia due to bradycardia, recheck CMP daily (4) SALONI (acute kidney injury): Plan: -Again, secondary to demand ischemia in the setting of bradycardia -Would observe with daily creatinine for now, no IV fluid as patient seems euvolemic and is able to tolerate p.o. intake. -Hold Lasix (5) PAF (paroxysmal atrial fibrillation): Plan: -Continue amiodarone, hold metoprolol -Continue Eliquis (6) Paroxysmal SVT (supraventricular tachycardia): Plan: -Noted. Monitor with tele (7) RA (rheumatoid arthritis): Plan: -Continue chronic regimen with prednisone 5 mg in the morning, 1 mg at night -Continue hydroxychloroquine, leflunomide (8) Chronic anticoagulation: Plan: -continue eliquis for paroxysmal Afib (9) Right above-knee amputee: Plan: -Continue activity out of bed to chair with assistance -Given bradycardia, will hold off from PT and OT for now, consider if pacer is placed or symptoms improve. -Continue duloxetine and gabapentin for phantom pain -Fall precautions Dispo: Admit to tele, Cards consulted Diet: Heart healthy DVT Proph: eliquis Code Status: Full Code History of Present Illness Chief Complaint: Patient is a 71-year-old female with past medical history of rheumatoid arthritis, paroxysmal supraventricular tachycardia, paroxysmal atrial fibrillation, hypertension, chronic anticoagulation, right above-knee amputation, left ventricular hypertrophy, cervical neuropathy, and chronic opioid use who presented to the ED for the chief complaint of bradycardia. Patient is with at the time of my interview. Patient and report that around 1500 hrs. today, patient began experiencing nausea and general unwellness. This was after being set up and placed into bed with the assistance of the patient's . Because of the patient's general unwell feeling, the took her heart rate which was down in the low 30s. It was at this time that they decided to go to the emergency room for further evaluation. She denies any shortness of breath, chest pain, calf pain in her left extremity, or headache. Continues to feel somewhat nauseous and overall fatigued but otherwise has no other complaints at this time. Of note patient did have her pulse taken a couple days ago and it was in the low 60s per 's recollection. No recent illnesses. is in charge of all of the patient's medications and her last dose of metoprolol was this morning at 9 AM. There has been no recent changes/increases in medication. No history of tick bites recently. Lastly, it was noted that the patient did have a large loose bowel movement today but it does not still have solid components and there is no blood noted. This happened prior to the symptoms that she was feeling. ED course: had called EMS due to the bradycardia. During the EMS ride the patient was given atropine after rhythm strip was showing bradycardia in the 30s. Blood pressure was stable throughout the whole ordeal above 120 systolic. No desaturation and oxygen or shortness of breath. Upon arrival to the ED patient's heart rate was in the mid 40s with good BP. She had an evaluation by the ED provider as well as lab work which was positive for mildly elevated potassium at 5.2, elevated BUN and creatinine at 24 and 1.37 respectively, elevated AST and alk phos at 49 and 163 respectively, and elevated troponin at 84.4. Chest x-ray was significant for stable mild cardiomegaly and chronic interstitial change with mild emphysema. No acute process. Cardiology was called who recommended admission to the hospital with withholding beta-blockade for evaluation in the morning. It is at this time that the hospitalist service was consulted for admission. Primary Care Provider: Sylvia Nails MD Allergies Allergy/AdvReac Type Severity Reaction Status Date / Time dalbavancin Allergy Severe hypotension, Verified 07/14/22 22:44 flushing, tachypnea Home Medications Medication Instructions Recorded Confirmed Type lactobacillus combination no.4 3 3,000 mmu cells PO QAM 03/30/18 07/14/22 History billion cell capsule (Probiotic) cranberry 500 mg capsule 500 mg PO QPM 09/29/18 07/14/22 History vit A 7,160 unit-vit C 113 mg-vit 1 tab PO QAM 10/08/18 07/14/22 History E-zinc co-tfzuzc-jrxrgw 1 mg tablet ([facility]) calcium carbonate 600 mg-vitamin 1 cap PO BID 07/16/20 07/14/22 History D3 5 mcg (200 unit) capsule (Calcium 600 + D(3)) sennosides 8.6 mg tablet (senna) 8.6 mg PO DAILY PRN Constipation 02/28/21 07/14/22 History meclizine 25 mg tablet 25 mg PO BID PRN dizziness #20 tabs 07/26/21 07/14/22 Rx hydroxychloroquine 200 mg tablet 200 mg PO DAILY 10/02/21 07/14/22 History (Plaquenil) furosemide 40 mg tablet 40 mg PO DAILY PRN Edema 12/19/21 07/14/22 History duloxetine 30 mg capsule,delayed 30 mg PO DAILY #90 caps 12/30/21 07/14/22 Rx release potassium chloride 10 mEq 10 meq PO QAM #90 caps 12/30/21 07/14/22 Rx capsule,extended release ferrous sulfate 325 mg (65 mg 325 mg PO QAM #90 tabs 02/03/22 07/14/22 Rx iron) tablet amiodarone 200 mg tablet 200 mg PO DAILY #90 tabs 02/11/22 07/14/22 Rx metoprolol tartrate 50 mg tablet 50 mg PO BID #180 tabs 03/04/22 07/14/22 Rx oxybutynin chloride 15 mg 15 mg PO DAILY #90 tabs 03/04/22 07/14/22 Rx tablet,extended release 24 hr calcitriol 0.5 mcg capsule 0.5 mcg PO 2XWK #30 caps 03/05/22 07/14/22 Rx (Rocaltrol) leflunomide 20 mg tablet (Arava) 20 mg PO QAM #90 tabs 05/14/22 07/14/22 Rx apixaban 5 mg tablet (Eliquis) 5 mg PO BID #180 tabs 05/19/22 07/14/22 Rx omeprazole 20 mg capsule,delayed 20 mg PO BID #180 caps 05/27/22 07/14/22 Rx release prednisone 1 mg tablet 1 mg PO QPM #90 tabs 06/10/22 07/14/22 Rx prednisone 5 mg tablet 5 mg PO QAM #90 tabs 06/10/22 07/14/22 Rx gabapentin 300 mg capsule 300 mg PO TID 90 days #270 caps 07/01/22 07/14/22 Rx Past Med/Surg History Medical History Acute bronchitis Acute respiratory failure with hypoxia Chronic back pain Chronic steroid use Closed fracture of coccyx Constipation due to opioid therapy DDD (degenerative disc disease) GI bleed Hip dislocation, left History of coronary angiogram History of COVID-19 History of Hodgkin's lymphoma History of oral cancer Hypertension Hypomagnesemia Overactive bladder PAD (peripheral artery disease) PAF (paroxysmal atrial fibrillation) Paroxysmal SVT (supraventricular tachycardia) RA (rheumatoid arthritis) Skin benign neoplasm Surgical History H/O foot surgery H/O parathyroidectomy History of above knee amputation History of biopsy History of breast surgery History of carpal tunnel release History of colonoscopy History of colposcopy with cervical biopsy History of glossectomy History of hip surgery History of spinal surgery History of total hip arthroplasty History of total knee replacement History of tubal ligation Hx of hand surgery Hx of knee surgery PONV (postoperative nausea and vomiting) S/P revision of total knee Family History Mother Breast cancer Colorectal cancer Cancer Aunt Colorectal cancer Other Family history non-contributory No family history of adverse response to anesthesia Denies family history of Ovarian cancer Prostate cancer Myocardial infarction Social History (Updated 04/04/22 @ 15:59 by Hanna Escamilla LPN) Smoking Status: Never smoker Second Hand Exposure: No; Hx Alcohol Use: No Hx Substance Use: No Preferred Language: Telugu Communication Ability: Effective Visual Impairment: No Limitations 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: Normal Web Content Coordinator Required: No Beliefs That Will Affect Care: None marital status: Current Living Situation: Spouse current occupational status: retired How many Children do You have: 1 Feels Safe at Home: Yes Childhood Exposure to Second-Hand Smoke: Yes caffeine: Yes Dental Care, Regularly: Yes Physical Activity Frequency: Other Physical Activity Frequency Comment: Limited by a physical condition Seatbelt Use: always Sunscreen Use: Yes Assistive Devices: Glasses and Wheelchair Review of Systems Review of Systems: All systems reviewed & are unremarkable except as noted in HPI & below Physical Exam Constitutional: well developed and well nourished Fatigued Eyes: + anicteric sclerae Neck: trachea midline, no thyromegaly Respiratory: normal respiratory effort, lungs clear to auscultation Cardiovascular: Rate/Rhythm: regular rhythm and + bradycardic Heart Sounds: normal S1, normal S2 and + murmur (2/6 systolic) Vessels: no JVD Extremities: + edema (trace in LLE) Chest (Breasts): Chest: normal inspection of chest Gastrointestinal (Abdomen): normal bowel sounds, soft, nontender, no hepatosplenomegaly Musculoskeletal: Head/Neck/Chest: normocephalic and head atraumatic R Above knee amputation Skin: no rashes, warm and dry Neurologic: awake Psychiatric: A+Ox3, euthymic affect Results & Data Results & Data ([facility]) Vital Signs (Past 12 Hours) Vital Signs Temp Pulse Pulse Resp BP BP Pulse Ox 07/14/22 22:31 42 L 17 95 07/14/22 22:31 154/56 H 07/14/22 22:30 43 L 16 97 07/14/22 21:54 43 L 19 94 07/14/22 21:54 137/53 L 07/14/22 21:30 41 L 19 97 07/14/22 21:00 41 L 12 98 07/14/22 21:00 145/75 H 07/14/22 20:42 41 L 18 132/55 L 96 07/14/22 19:59 42 L 18 113/70 94 07/14/22 19:30 94 07/14/22 19:11 44 L 18 146/48 H 95 07/14/22 19:11 07/14/22 18:56 37.2 C 45 L 18 131/47 L 96 O2 Del Method 07/14/22 22:31 Room Air 07/14/22 22:31 07/14/22 22:30 Room Air 07/14/22 21:54 Room Air 07/14/22 21:54 07/14/22 21:30 07/14/22 21:00 Room Air 07/14/22 21:00 07/14/22 20:42 Room Air 07/14/22 19:59 Nasal Cannula 07/14/22 19:30 Room Air 07/14/22 19:11 Room Air 07/14/22 19:11 Room Air 07/14/22 18:56 Room Air Code Status & VTE Plan VTE Prophylaxis Plan VTE Prophylaxis will be ordered: Yes
[2022-07-14] MEDS ORDERED: SENNA 8.6 MG TAB PO PRN (23:23)
[2022-07-14] MEDS ORDERED: POLYETHYLENE (MIRALAX) 17 GM PACK PO PRN (23:23)
[2022-07-14] MEDS ORDERED: ONDANSETRON INJ 2 MG/ML 2 ML VIAL IV PRN (23:23)
[2022-07-15 06:49] LABS: Basophils # (auto) 0.11 K/uL (0-0.2); Basophils % (auto) 1.3 %; Eosinophils # (auto) 0.46 K/uL (0-0.50); Eosinophils % (auto) 5.3 %; Hematocrit (blood only) 34.1 % (34.1-44.9); Hemoglobin 11.1 g/dl (12.0-16.0); Immature Granulocytes # (auto) 0.11 K/uL (0.00-0.02); Immature Granulocytes % (auto) 1.3 %; Lymphocytes # (auto) 1.67 K/uL (1.2-3.4); Lymphocytes % (auto) 19.1 %; Mean Corpuscular Hemoglobin 30.4 pg (25.0-34.0); Mean Corpuscular Hgb Conc 32.6 g/dL (32.0-36.0); Mean Corpuscular Volume 93.4 fL (80.0-100.0); Mean Platelet Volume 10.7 fL (9.4-12.3); Monocytes # (auto) 1.21 K/uL (0.24-0.82); Monocytes % (auto) 13.8 %; Neutrophils # (auto) 5.19 K/uL (1.4-6.5); Neutrophils % (auto) 59.2 %; Platelet Count 205 K/uL (130-400); RDW Standard Deviation 54.6 fL (36.4-46.3); Red Blood Count 3.65 M/uL (3.93-5.22); White Blood Count 8.75 K/ul (4.8-10.8)
[2022-07-15 07:23] LABS: Troponin I High Sensitivity 102.5 pg/ml (0-14)
[2022-07-15 07:43] LABS: BUN Creatinine Ratio 15.3 (10-20); Calcium 8.9 mg/dl (8.5-10.1); Est GFR (Non-African American) 25.9 ml/min; Magnesium 1.8 mg/dl (1.7-2.4); Phosphorus 4.3 mg/dl (2.5-4.9); Potassium 5.1 mmol/L (3.5-5.1)
[2022-07-15] MEDS: DULoxetine HCL 30 MG CAP PO SCH (08:00)
[2022-07-15] MEDS: FERROUS SULFATE 325 MG TAB PO SCH (08:00)
[2022-07-15] MEDS: CALCIUM 600MG + VIT D 400 IU TAB PO SCH ×2 (08:00→21:29)
[2022-07-15] MEDS: HYDROXYCHLOROQUINE SULFATE 200 MG TAB PO SCH (08:01)
[2022-07-15] MEDS: GABAPENTIN 300 MG CAP PO SCH ×3 (08:01→21:29)
[2022-07-15] MEDS: LEFLUNOMIDE 10 MG TAB PO SCH (08:02)
[2022-07-15] MEDS: PANTOprazole 40 MG TAB PO SCH ×2 (08:03→21:28)
[2022-07-15] MEDS: OXYBUTYNIN CHLORIDE XL 5 MG TABCR PO SCH (08:03)
[2022-07-15] MEDS: predniSONE 5 MG TAB PO SCH (08:04)
[2022-07-15] MEDS: AMIODARONE 200 MG TAB PO SCH (08:05)
--- NOTE | 2022-07-15 08:07 | Electrocardiogram Report ---
Test Reason : Blood Pressure : / mmHG Vent. Rate : 045 BPM Atrial Rate : 016 BPM P-R Int : 000 ms QRS Dur : 088 ms QT Int : 502 ms P-R-T Axes : 000 012 228 degrees QTc Int : 434 ms Junctional rhythm Diffuse Minor Nonspecific T wave abnormality Abnormal ECG When compared with ECG of 23-FEB-2022 23:37, Junctional rhythm has replaced Sinus rhythm HR has decreased by 16 bpm Confirmed by Nabor Fuentes ([id number]) on 07/15/2022 8:06:41 AM Referred By: REFERRED SELF Confirmed By:Nabor Fuentes
[2022-07-15] MEDS ORDERED: APIXABAN 5 MG TABLET PO SCH (09:00)
--- NOTE | 2022-07-15 09:09 | Cardiology Consultation ---
Date of Consultation July 15, 2022 Assessment & Plan (1) Junctional bradycardia: Mrs. Esparza is a 71-year-old female with a history of Paroxysmal Atrial Fibrillation, Hypertension, Moderate Concentric LVH, Paroxysmal SVT, COPD/Empphysema, Rheumatoid Arthritis, Osteoporosis, SARS Co-V 2 Pneumonia, LVH, GERD, Anemia, Hodgkin's Lymphoma, GERD, Reflux Esophagitis, Hyperparathyroidism, Degenerative Disc Disease, and PAD s/p Right Leg Ischemia s/p Right AKA secondary to Right Peroneal and CLIENT ASSOCIATE disease, and an SFA Occlusion who presented to [facility] ER on 07/14/22 complaining of a Headache, Nausea without vomiting, breathing felt mildly labored, and she just didn't feel well in general. Patient states that at about 3 p.m. she was being lifted into bed by her as she has a history of a Right AKA. Patient states shortly after that she began to feel nauseated and had a slight headache. Her placed a pulse oximeter on her and her O2 saturation was within normal limits, but her heart rate was in the 30's. EMS was activated. Patient was markedly bradycardic in the field per EMS, an IV was established, EKG showed a junctional bradycardia. Patient was given IV Atropine 1 mg and her heart rate came up into the 40's. Upon arrival to the ER the patient's heart rate is in the mid 40s, blood pressure is 130 mmHg systolically, patient was saturating well on room air.Hospitalists were consulted for admission. She denies any sensation of palpitations or chest discomfort at any time. She denies any exertional chest pain, heaviness, tightness, pressure, or discomfort. She denies any neck, jaw, back, or arm pain. She denies any shortness of breath or any labored breathing currently. She denies any orthopnea or PND. She denies any lightheadedness, near syncope, syncope, or any dizzy spells despite her slower heart rate yesterday. She has not had any symptoms suggestive of stroke or mini-stroke. Patient is currently being seen in - and she is feeling better than she did yesterday. She remains in a junctional bradycardia with a heart of 40 to 44 bpm overnight and this morning. Transcutaneous pacemaker is at the bedside. Her hs Troponin I levels are elevated at 102.5 pg/ml, 94.0 pg/mL, and 84.4 pg/mL. Patient's Amiodarone and Metoprolol Tartrate have been held -- last dose of these medications was at 0800 on 07/14/22 (approximately 27 hours ago). I suspect that her junctional bradycardia is medication mediated and her nausea may indicate increased vagal tone. -- Discontinue Metoprolol Tartrate. -- Hold Amiodarone for the time being, but she will eventually need to restart this for her paroxysmal atrial fibrillation. -- Check Amiodarone level. -- Consider further work-up of elevated bilirubin and AST. -- If she does not revert to a normal sinus mechanism and she is symptomatic with her bradycardia, a pacemaker would be indicated. -- Transcutaneous pacemaker is available at bedside. -- Remain on telemetry. (2) Elevated troponin: -- Elevated hs Troponin I levels may be secondary to demand ischemia and SALONI, no wall motion abnormalities on today's echocardiogram. -- No need for further ischemic work-up at this time. (3) PAF (paroxysmal atrial fibrillation): -- Continue Eliquis 5 mg b.i.d.. -- Resume Amiodarone in coming days. (4) Paroxysmal SVT (supraventricular tachycardia): -- Resume Amiodarone in coming days. (5) SALONI (acute kidney injury): -- IV fluids, monitor daily labs. (6) Pulmonary hypertension: (7) PAD (peripheral artery disease): s/p Right AKA November 2021. -- Continue Eliquis 5 mg b.i.d.. -- She would benefit with a statin medication. Supervising Physician Co-Signing Physician Notes ADDENDUM (Dr. Fuentes): Patient seen and examined. Agree with plan as outlined above by Mr. Barbara HESS. Patient appears to have a junctional rhythm as an escape mechanism given the absence of any sinus activity. Since she did take metoprolol yesterday, it would not be expected until sometime today that her levels will become subtherapeutic and hopefully her heart rate increases. Would not restart metoprolol. Amiodarone is a much longer washout, she should remain off this until sinus rhythm returns at normal rates, at which time she could be restarted on reduced dose (100 mg daily). Given her reduced renal function, would hold apixaban tonight and tomorrow morning in anticipation of possible pacemaker placement. The apixaban is for thromboembolic prophylaxis for paroxysmal atrial fibrillation, since she does not have current atrial fibrillation interruption of anticoagulation should be low risk. History of Present Illness Attending Physician: David Hudson MD History of Present Illness Mrs. Esparza is a 71-year-old female with a history of Paroxysmal Atrial F ibrillation, Hypertension, Moderate Concentric LVH, Paroxysmal SVT, COPD/Empphysema, Rheumatoid Arthritis, Osteoporosis, SARS Co-V 2 Pneumonia, LVH, GERD, Anemia, Hodgkin's Lymphoma, GERD, Reflux Esophagitis, Hyperparathyroidism, Degenerative Disc Disease, and PAD s/p Right Leg Ischemia s/p Right AKA secondary to Right Peroneal and CLIENT ASSOCIATE disease, and an SFA Occlusion who presented to [facility] ER on 07/14/22 complaining of a Headache, Nausea without vomiting, breathing felt mildly labored, and she just didn't feel well in general. Patient states that at about 3 p.m. she was being lifted into bed by her as she has a history of a Right AKA. Patient states shortly after that she began to feel nauseated and had a slight headache. Her placed a pulse oximeter on her and her O2 saturation was within normal limits, but her heart rate was in the 30's. EMS was activated. Patient was markedly bradycardic in the field per EMS, an IV was established, EKG showed a junctional bradycardia. Patient was given IV Atropine 1 mg and her heart rate came up into the 40's. Upon arrival to the ER the patient's heart rate is in the mid 40s, blood pressure is 130 mmHg systolically, patient was saturating well on room air.Hospitalists were consulted for admission. Patient offers no other complaints. She denies any sensation of palpitations or chest discomfort at any time. She denies any exertional chest pain, heaviness, tightness, pressure, or discomfort. She denies any neck, jaw, back, or arm pain. She denies any shortness of breath or any labored breathing currently. She denies any orthopnea or PND. She denies any lightheadedness, near syncope, syncope, or any dizzy spells despite her slower heart rate yesterday. She has not had any symptoms suggestive of stroke or mini-stroke. Patient is currently being seen in [facility]- and she is feeling better than she did yesterday. She remains in a junctional bradycardia with a heart of 40 bpm overnight and this morning. Transcutaneous pacemaker is at the bedside. Her hs Troponin I levels are elevated at 102.5 pg/ml, 94.0 pg/mL, and 84.4 pg/mL. Patient's Amiodarone and Metoprolol Tartrate have been held -- last dose of thes e medications was at 0800 on 07/14/22 (approximately 27 hours ago). Allergies Allergy/AdvReac Type Severity Reaction Status Date / Time dalbavancin Allergy Severe hypotension, Verified 07/14/22 22:44 flushing, tachypnea Home Medications Medication Instructions Recorded Confirmed Type lactobacillus combination no.4 3 3,000 mmu cells PO QAM 03/30/18 07/14/22 History billion cell capsule (Probiotic) cranberry 500 mg capsule 500 mg PO QPM 09/29/18 07/14/22 History vit A 7,160 unit-vit C 113 mg-vit 1 tab PO QAM 10/08/18 07/14/22 History E-zinc go-qghoau-qcoqsq 1 mg tablet ([facility]) calcium carbonate 600 mg-vitamin 1 cap PO BID 07/16/20 07/14/22 History D3 5 mcg (200 unit) capsule (Calcium 600 + D(3)) sennosides 8.6 mg tablet (senna) 8.6 mg PO DAILY PRN Constipation 02/28/21 07/14/22 History meclizine 25 mg tablet 25 mg PO BID PRN dizziness #20 tabs 07/26/21 07/14/22 Rx hydroxychloroquine 200 mg tablet 200 mg PO DAILY 10/02/21 07/14/22 History (Plaquenil) furosemide 40 mg tablet 40 mg PO DAILY PRN Edema 12/19/21 07/14/22 History duloxetine 30 mg capsule,delayed 30 mg PO DAILY #90 caps 12/30/21 07/14/22 Rx release potassium chloride 10 mEq 10 meq PO QAM #90 caps 12/30/21 07/14/22 Rx capsule,extended release ferrous sulfate 325 mg (65 mg 325 mg PO QAM #90 tabs 02/03/22 07/14/22 Rx iron) tablet amiodarone 200 mg tablet 200 mg PO DAILY #90 tabs 02/11/22 07/14/22 Rx metoprolol tartrate 50 mg tablet 50 mg PO BID #180 tabs 03/04/22 07/14/22 Rx oxybutynin chloride 15 mg 15 mg PO DAILY #90 tabs 03/04/22 07/14/22 Rx tablet,extended release 24 hr calcitriol 0.5 mcg capsule 0.5 mcg PO 2XWK #30 caps 03/05/22 07/14/22 Rx (Rocaltrol) leflunomide 20 mg tablet (Arava) 20 mg PO QAM #90 tabs 05/14/22 07/14/22 Rx apixaban 5 mg tablet (Eliquis) 5 mg PO BID #180 tabs 05/19/22 07/14/22 Rx omeprazole 20 mg capsule,delayed 20 mg PO BID #180 caps 05/27/22 07/14/22 Rx release prednisone 1 mg tablet 1 mg PO QPM #90 tabs 06/10/22 07/14/22 Rx prednisone 5 mg tablet 5 mg PO QAM #90 tabs 06/10/22 07/14/22 Rx gabapentin 300 mg capsule 300 mg PO TID 90 days #270 caps 07/01/22 07/14/22 Rx Patient History Medical History Acute bronchitis Acute respiratory failure with hypoxia Chronic back pain Chronic steroid use Closed fracture of coccyx Constipation due to opioid therapy DDD (degenerative disc disease) GI bleed HOSPITALIZED 02/24/22 AT [place] (ELIQUIS ON HOLD) Hip dislocation, left RECENT DX (CAN LAY ON LEFT SIDE ONLY) History of coronary angiogram Right Lower Extremity Arteriogram, Percutaneous Transluminal Angioplasty and Stenting of Right Superficial Femoral Artery History of COVID-19 hospitalized 07/16/20 [facility]. hypoxia, fever, cough, chills, loss of taste/smell. RESOLVED History of Hodgkin's lymphoma 2003/under surveillance by PCP/Dr. Thibodeaux- S/p chemo in 2003- none since History of oral cancer s/p tongue excision left side (no chemo/no XRT 2013) No issues since Hypertension Hypomagnesemia Overactive bladder PAD (peripheral artery disease) PAF (paroxysmal atrial fibrillation) hx - on Eliquis Paroxysmal SVT (supraventricular tachycardia) hx (follows with Dr. Vance) RA (rheumatoid arthritis) on chronic steroid Skin benign neoplasm Surgical History H/O foot surgery TOES X MULTIPLE H/O parathyroidectomy History of above knee amputation RT>NO PROSTHETIC (USING W/C) History of biopsy Of soft tissue of the neck History of breast surgery Puncture aspiration of cyst History of carpal tunnel release RIGHT History of colonoscopy History of colposcopy with cervical biopsy with endocervical curettage History of glossectomy with unilateral radical neck dissection History of hip surgery R/L REVISION Left MAURO revision: 11/09/18: SABx1 at L3-L4 at [facility] MULTIPLE HIP SURGERIES History of spinal surgery 10/02/[address] [facility] [address]. Sanford>LUMBAR AREA History of total hip arthroplasty R/L History of total knee replacement R/L History of tubal ligation Hx of hand surgery RIGHT Hx of knee surgery MULTIPLE SURGERIES ON RT LEG Right TKA revision, I&D, antibiotic spacer: 12/29/19: SAB + PNB at [facility] PONV (postoperative nausea and vomiting) S/P revision of total knee 12/29/19 Dr. 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 Beliefs That Will Affect Care: None marital status: Current Living Situation: Spouse current occupational status: retired How many Children do You have: 1 Other Information That Helps Us Care for You: No Feels Safe at Home: Yes Safety Concerns: Feels Safe At This Time Childhood Exposure to Second-Hand Smoke: Yes caffeine: Yes Dental Care, Regularly: Yes Physical Activity Frequency: Other Physical Activity Frequency Comment: Limited by a physical condition Seatbelt Use: always Sunscreen Use: Yes Assistive Devices: Wheelchair Review of Systems Review of Systems: 10 point ROS completed and is negative with the exception of what is mentioned in the HPI. Physical Exam Physical Exam: GENERAL: Patient in no acute distress. HEENT: Head is atraumatic, normocephalic. EOM's intact. Facies symmetric. No perioral cyanosis. NECK: No JVD. JVP is not elevated. Carotid upstrokes are + 2 bilaterally. CHEST/LUNGS: Increased AP diameter. Mildly diminished breath sounds throughout, otherwise clear. No wheezes, rales, or crackles. CVS: S1 and S2 are regular, bradycardic at 44 bpm without obvious murmurs, gallops, or rubs. PMI is nondisplaced. No lifts, heaves, or thrills. No abdominal aortic or renal bruits. ABDOMINAL EXAM: Bowel sounds are present. No masses, organomegaly, or tenderness. EXTREMITIES: No clubbing or cyanosis. No edema. Intact radial pulses bilaterally. s/p Right AKA. NEUROLOGIC EXAM: Patient is awake, alert, and oriented. Pleasant and cooperative. Answers questions appropriately. Speech is clear. EKG 07/15/22 at 0917: -- Junctional bradycardia at 43 bpm. -- Age indeterminate septal infarct. EKG 07/14/22 at 1859: -- Junctional bradycardia at 45 bpm. -- Minor diffuse non-specific T wave abnormalities. 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 ECHOCARDIOGRAM 07/15/22: -- Normal LV systolic function, LVEF 60% to 65% with normal wall motion. -- Moderate concentric LVH. -- Normal RV size and systolic function. -- Mild AI. -- Mild PI. -- Mild MR. -- Vunlruew-bz-yjhbsn TR. -- RVSP is elevated at 40 to 50 mmHg. -- When compared to 11/11/2021 study; Severity of tricuspid regurgitation has increased and moderate pulmonary hypertension is now seen. Results & Data ([facility]) Vital Signs (Past 12 Hours) Vital Signs Pulse Pulse Resp BP BP Pulse Ox Pulse Ox 07/15/22 08:00 100 07/15/22 08:00 43 L 18 158/57 H 100 07/15/22 06:44 170/56 H 07/15/22 06:44 42 L 16 98 07/15/22 06:30 41 L 21 98 07/15/22 05:00 42 L 19 162/87 H 98 07/15/22 04:01 40 L 13 147/72 H 98 07/15/22 04:00 41 L 23 97 07/15/22 03:31 163/68 H 07/15/22 03:31 42 L 30 H 90 07/15/22 03:30 42 L 28 H 88 L 07/15/22 03:01 41 L 11 L 160/74 H 96 07/15/22 02:31 42 L 21 167/69 H 94 07/15/22 02:01 41 L 22 146/75 H 97 07/15/22 01:41 42 L 20 145/52 H 95 07/15/22 00:32 43 L 24 157/58 H 93 07/14/22 23:30 43 L 20 149/57 H 96 07/14/22 23:59 42 L 93 07/14/22 22:31 42 L 17 95 07/14/22 22:31 154/56 H 07/14/22 22:30 43 L 16 97 07/14/22 21:54 43 L 19 94 07/14/22 21:54 137/53 L 07/14/22 21:30 41 L 19 97 O2 Del Method O2 Del Method O2 Flow Rate O2 Flow Rate 07/15/22 08:00 Nasal Cannula 2 07/15/22 08:00 Nasal Cannula 2 07/15/22 06:44 07/15/22 06:44 Nasal Cannula 2 07/15/22 06:30 Nasal Cannula 2 07/15/22 05:00 Nasal Cannula 2 07/15/22 04:01 Nasal Cannula 2 07/15/22 04:00 Nasal Cannula 2 07/15/22 03:31 07/15/22 03:31 Room Air 07/15/22 03:30 Room Air 07/15/22 03:01 Room Air 07/15/22 02:31 Room Air 07/15/22 02:01 Room Air 07/15/22 01:41 Room Air 07/15/22 00:32 Room Air 07/14/22 23:30 Room Air 07/14/22 23:59 Room Air 07/14/22 22:31 Room Air 07/14/22 22:31 01/09/23 22:30 Room Air 07/14/22 21:54 Room Air 07/14/22 21:54 07/14/22 21:30 Laboratory Results Laboratory Results - last 24 hr 07/14/22 07/14/22 07/14/22 19:30 19:30 19:30 WBC 8.02 RBC 3.97 Hgb 11.9 L Hct 37.5 MCV 94.5 MCH 30.0 MCHC 31.7 L RDW Std Deviation 55.4 H RDW Coeff of Jarvis 16.0 H Plt Count 235 MPV 10.9 Immature Gran % (Auto) 1.7 Neut % (Auto) 71.1 Lymph % (Auto) 12.8 [place] % (Auto) 10.6 Eos % (Auto) 2.6 Baso % (Auto) 1.2 Neut # (Auto) 5.69 Lymph # (Auto) 1.03 L [place] # (Auto) 0.85 H Eos # (Auto) 0.21 Baso # (Auto) 0.10 Immature Gran # (Auto) 0.14 H PT INR APTT PTT Ratio Sodium 138 Potassium 5.2 H Chloride 106 Carbon Dioxide 24 Anion Gap 8 BUN 24 H Creatinine 1.37 H Est Cr Clr Drug Dosing 28.9 Est GFR ( Amer) 44.2 Est GFR (Non-Af Amer) 38.2 BUN/Creatinine Ratio 17.5 Glucose 123 H Calcium 9.1 Phosphorus Magnesium 1.9 Total Bilirubin 1.2 H AST 49 H ALT 30 Alkaline Phosphatase 163 H Troponin I High Sens 84.4 H* Total Protein 6.0 Albumin 3.4 Globulin 2.6 Albumin/Globulin Ratio 1.3 Lipase 7 L TSH 2.131 Free T4 Free T3 SARS-CoV-2, RNA, NAAT 07/14/22 07/14/22 07/14/22 19:30 19:30 19:30 WBC RBC Hgb Hct MCV MCH MCHC RDW Std Deviation RDW Coeff of Jarvis Plt Count MPV Immature Gran % (Auto) Neut % (Auto) Lymph % (Auto) [place] % (Auto) Eos % (Auto) Baso % (Auto) Neut # (Auto) Lymph # (Auto) [place] # (Auto) Eos # (Auto) Baso # (Auto) Immature Gran # (Auto) PT 13.6 H INR 1.3 H APTT 30.8 PTT Ratio 1.1 Sodium Potassium Chloride Carbon Dioxide Anion Gap BUN Creatinine Est Cr Clr Drug Dosing Est GFR ( Amer) Est GFR (Non-Af Amer) BUN/Creatinine Ratio Glucose Calcium Phosphorus Magnesium Total Bilirubin AST ALT Alkaline Phosphatase Troponin I High Sens Total Protein Albumin Globulin Albumin/Globulin Ratio Lipase TSH Free T4 1.43 Free T3 2.62 SARS-CoV-2, RNA, NAAT 07/14/22 07/14/22 07/15/22 22:01 23:54 06:22 WBC 8.75 RBC 3.65 L Hgb 11.1 L Hct 34.1 MCV 93.4 MCH 30.4 MCHC 32.6 RDW Std Deviation 54.6 H RDW Coeff of Jarvis 16.0 H Plt Count 205 MPV 10.7 Immature Gran % (Auto) 1.3 Neut % (Auto) 59.2 Lymph % (Auto) 19.1 [place] % (Auto) 13.8 Eos % (Auto) 5.3 Baso % (Auto) 1.3 Neut # (Auto) 5.19 Lymph # (Auto) 1.67 [place] # (Auto) 1.21 H Eos # (Auto) 0.46 Baso # (Auto) 0.11 Immature Gran # (Auto) 0.11 H PT INR APTT PTT Ratio Sodium Potassium Chloride Carbon Dioxide Anion Gap BUN Creatinine Est Cr Clr Drug Dosing Est GFR ( Amer) Est GFR (Non-Af Amer) BUN/Creatinine Ratio Glucose Calcium Phosphorus Magnesium Total Bilirubin AST ALT Alkaline Phosphatase Troponin I High Sens 94.0 H* Total Protein Albumin Globulin Albumin/Globulin Ratio Lipase TSH Free T4 Free T3 SARS-CoV-2, RNA, NAAT NEGATIVE 07/15/22 07/15/22 06:22 06:22 WBC RBC Hgb Hct MCV MCH MCHC RDW Std Deviation RDW Coeff of Jarvis Plt Count MPV Immature Gran % (Auto) Neut % (Auto) Lymph % (Auto) [place] % (Auto) Eos % (Auto) Baso % (Auto) Neut # (Auto) Lymph # (Auto) [place] # (Auto) Eos # (Auto) Baso # (Auto) Immature Gran # (Auto) PT INR APTT PTT Ratio Sodium 138 Potassium 5.1 Chloride 107 Carbon Dioxide 24 Anion Gap 7 BUN 29 H Creatinine 1.89 H D Est Cr Clr Drug Dosing 21.0 Est GFR ( Amer) 30.0 Est GFR (Non-Af Amer) 25.9 BUN/Creatinine Ratio 15.3 Glucose 95 Calcium 8.9 Phosphorus 4.3 Magnesium 1.8 Total Bilirubin AST ALT Alkaline Phosphatase Troponin I High Sens 102.5 H* Cancelled Total Protein Albumin Globulin Albumin/Globulin Ratio Lipase TSH Free T4 Free T3 SARS-CoV-2, RNA, NAAT Diagnostic Findings CXR 07/14/22: IMPRESSION: 1. Stable mild cardiomegaly and chronic interstitial change. 2. Mild emphysema. Medications Administered Medications lactobacillus combination no.4 3 billion cell capsule (Probiotic) 3,000 mmu cells PO QAM 03/30/18 [History Confirmed 07/14/22] cranberry 500 mg capsule 500 mg PO QPM 09/29/18 [History Confirmed 07/14/22] vit A 7,160 unit-vit C 113 mg-vit E-zinc ab-wrsbue-imfhau 1 mg tablet ([facility]) 1 tab PO QAM 10/08/18 [History Confirmed 07/14/22] calcium carbonate 600 mg-vitamin D3 5 mcg (200 unit) capsule (Calcium 600 + D(3)) 1 cap PO BID 07/16/20 [History Confirmed 07/14/22] sennosides 8.6 mg tablet (senna) 8.6 mg PO DAILY PRN Constipation 02/28/21 [History Confirmed 07/14/22] meclizine 25 mg tablet 25 mg PO BID PRN dizziness #20 tabs 07/26/21 [Rx Confirmed 07/14/22] hydroxychloroquine 200 mg tablet (Plaquenil) 200 mg PO DAILY 10/02/21 [History Confirmed 07/14/22] furosemide 40 mg tablet 40 mg PO DAILY PRN Edema 12/19/21 [History Confirmed 07/14/22] duloxetine 30 mg capsule,delayed release 30 mg PO DAILY #90 caps 12/30/21 [Rx Confirmed 07/14/22] potassium chloride 10 mEq capsule,extended release 10 meq PO QAM #90 caps 12/30/21 [Rx Confirmed 07/14/22] ferrous sulfate 325 mg (65 mg iron) tablet 325 mg PO QAM #90 tabs 02/03/22 [Rx Confirmed 07/14/22] amiodarone 200 mg tablet 200 mg PO DAILY #90 tabs 02/11/22 [Rx Confirmed 07/14/22] metoprolol tartrate 50 mg tablet 50 mg PO BID #180 tabs 03/04/22 [Rx Confirmed 07/14/22] oxybutynin chloride 15 mg tablet,extended release 24 hr 15 mg PO DAILY #90 tabs 03/04/22 [Rx Confirmed 07/14/22] calcitriol 0.5 mcg capsule (Rocaltrol) 0.5 mcg PO 2XWK #30 caps 03/05/22 [Rx Confirmed 07/14/22] leflunomide 20 mg tablet (Arava) 20 mg PO QAM #90 tabs 05/14/22 [Rx Confirmed 07/14/22] apixaban 5 mg tablet (Eliquis) 5 mg PO BID #180 tabs 05/19/22 [Rx Confirmed 07/14/22] omeprazole 20 mg capsule,delayed release 20 mg PO BID #180 caps 05/27/22 [Rx Confirmed 07/14/22] prednisone 1 mg tablet 1 mg PO QPM #90 tabs 06/10/22 [Rx Confirmed 07/14/22] prednisone 5 mg tablet 5 mg PO QAM #90 tabs 06/10/22 [Rx Confirmed 07/14/22] gabapentin 300 mg capsule 300 mg PO TID 90 days #270 caps 07/01/22 [Rx Confirmed 07/14/22] Home Medications Acetaminophen (Acetaminophen 325 Mg Tab) 650 mg PO Q4H PRN PRN Reason: Pain or Fever Stop: 08/13/22 23:22 Amiodarone HCl (Amiodarone 200 Mg Tab) 200 mg PO DAILY [facility] Stop: 08/14/22 08:59 Last Admin: 07/15/22 08:05 Dose: Not Given Apixaban (Apixaban 5 Mg Tablet) 5 mg PO BID [facility] Stop: 08/14/22 08:59 Last Admin: 07/15/22 07:59 Dose: 5 mg Calcium/Vitamin D (Calcium 600mg + Vit D 400 Iu Tab) 1 tab PO BID [facility] Stop: 08/14/22 08:59 Last Admin: 07/15/22 08:00 Dose: 1 tab Duloxetine HCl (Duloxetine Hcl 30 Mg Cap) 30 mg PO DAILY [facility] Stop: 08/14/22 08:59 Last Admin: 07/15/22 08:00 Dose: 30 mg Ferrous Sulfate (Ferrous Sulfate 325 Mg Tab) 325 mg PO QAM [facility] Stop: 08/14/22 08:59 Last Admin: 07/15/22 08:00 Dose: 325 mg Gabapentin (Gabapentin 300 Mg Cap) 300 mg PO TID [facility] Stop: 08/14/22 08:59 Last Admin: 07/15/22 08:01 Dose: 300 mg Hydroxychloroquine Sulfate (Hydroxychloroquine Sulfate 200 Mg Tab) 200 mg PO DAILY [facility] Stop: 08/14/22 08:59 Last Admin: 07/15/22 08:01 Dose: 200 mg Leflunomide (Leflunomide 10 Mg Tab) 20 mg PO QAM [facility] Stop: 08/14/22 08:59 Last Admin: 07/15/22 08:02 Dose: 20 mg Ondansetron HCl (Ondansetron Inj 2 Mg/Ml 2 Ml Vial) 4 mg IV Q6H PRN PRN Reason: Nausea Stop: 08/13/22 23:22 Oxybutynin Chloride (Oxybutynin Chloride Xl 5 Mg Tabcr) 15 mg PO DAILY [facility] Stop: 08/14/22 08:59 Last Admin: 07/15/22 08:03 Dose: 15 mg Pantoprazole Sodium (Pantoprazole 40 Mg Tab) 40 mg PO BID [facility] Stop: 08/14/22 08:59 Last Admin: 07/15/22 08:03 Dose: 40 mg Polyethylene Glycol (Polyethylene (Miralax) 17 Gm Pack) 17 gm PO DAILY PRN PRN Reason: Constipation Stop: 08/13/22 23:22 Prednisone (Prednisone 5 Mg Tab) 5 mg PO QAM [facility] Stop: 08/14/22 08:59 Last Admin: 07/15/22 08:04 Dose: 5 mg Prednisone (Prednisone 1 Mg Tab) 1 mg PO QPM [facility] Stop: 08/14/22 20:59 Sennosides (Senna 8.6 Mg Tab) 8.6 mg PO DAILY PRN PRN Reason: Constipation Stop: 08/13/22 23:22 PG Care Time/CCT Total # of Minutes Spent Total Time Spent with Patient: Total time spent is greater than 50% in coordination of care (as documented) at patient's floor/unit and/or counseling patient:28 Coding [place] [address] INT INP/OBS CARE 2/55MIN Patient Type Established Medical Decision Making Moderate Complexity Diagnoses Junctional bradycardia R00.1 Elevated troponin R77.8 PAF (paroxysmal atrial fibrillation) I48.0 Paroxysmal SVT (supraventricular tachycardia) I47.1 SALONI (acute kidney injury) N17.9 Pulmonary hypertension I27.20 PAD (peripheral artery disease) I73.9 Time Spent (min) 59
--- NOTE | 2022-07-15 09:46 | XCELERA ---
[id number]
--- NOTE | 2022-07-15 11:48 | Hospitalist Progress Note ---
Date of Service July 15, 2022 Assessment & Plan (1) Junctional bradycardia: Plan: Telemetry. Metoprolol has been discontinued. Amiodarone is temporarily on hold. Cardiac echo report noted. Appreciate cardiology consultation recommendations (2) SALONI (acute kidney injury): Plan: Administer IV fluids. Lasix is on hold. Monitor intake and output. Serial labs (3) Elevated liver enzymes: Plan: Mild. Serial labs (4) Elevated troponin: Plan: No sign of acute coronary syndrome. Telemetry (5) Chronic, continuous use of opioids: Plan: Opioid dependent. (6) PAD (peripheral artery disease): Plan: Right AKA status. Continue current medical management (7) Pulmonary hypertension: Plan: Noted on cardiac echo. No treatment warranted at this time Plan To be determined. She yet may need placement of a permanent cardiac pacemaker. Anticipate eventual discharge back to her home Admission and Anticipated Discharge Date Admission Date: July 14, 2022 Subjective Alert and oriented. is at the bedside. No acute distress. Cardiology entry noted. Cardiac echo reveals normal left ventricular function with moderate LVH. She has moderately severe tricuspid regurgitation with elevated right ventricular pressures. She remains in junctional bradycardia rhythm with satisfactory blood pressure. Metoprolol has been discontinued and amiodarone is temporarily on hold. Creatinine has bumped to 1.89 and IV fluids have been ordered. Lasix is on hold. Review of Systems Review of Systems: Constitutional-no fever or chills ENT-no blurred vision, no double vision, no epistaxis, no sore throat Respiratory-no cough, no wheezing, no shortness of breath Cardiac-no palpitations, no chest pain, no syncope GI-no nausea, vomiting, diarrhea, melena, hematochezia -no urinary retention, no urinary incontinence, no dysuria, no hematuria Musculoskeletal-no joint pain, no muscle tenderness Skin-no bruising, no rashes, no pruritus Neuro-no isolated weakness, no paresthesia, no weakness Psych-no depression, no anxiety Physical Exam Physical Exam: General-alert and oriented x3, no fevers, no chills. Complaining of malaise however HEENT-head atraumatic and normocephalic, pupils equal and reactive to light, extraocular muscles intact Neck-no lymphadenopathy or thyromegaly, trachea midline Chest-clear to auscultation percussion. No rales wheezing or rhonchi Cardiac-bradycardic regular rhythm , normal S1 and S2 Abdomen-normal bowel sounds, nontender, no hepatosplenomegaly Extremities-no cyanosis, clubbing, or edema Neuro-cranial nerves II through XII intact, motor and sensory function within normal limits, strength symmetrical , no focal deficits Psych-normal affect, normal mood Results & Data Results & Data ([facility]) Vital Signs (Past 12 Hours) Vital Signs Pulse Pulse Resp BP BP Pulse Ox Pulse Ox 07/15/22 09:17 43 L 07/15/22 08:00 100 07/15/22 08:00 43 L 18 158/57 H 100 07/15/22 06:44 170/56 H 07/15/22 06:44 42 L 16 98 07/15/22 06:30 41 L 21 98 07/15/22 05:00 42 L 19 162/87 H 98 07/15/22 04:01 40 L 13 147/72 H 98 07/15/22 04:00 41 L 23 97 07/15/22 03:31 163/68 H 07/15/22 03:31 42 L 30 H 90 07/15/22 03:30 42 L 28 H 88 L 07/15/22 03:01 41 L 11 L 160/74 H 96 07/15/22 02:31 42 L 21 167/69 H 94 07/15/22 02:01 41 L 22 146/75 H 97 07/15/22 01:41 42 L 20 145/52 H 95 07/15/22 00:32 43 L 24 157/58 H 93 07/14/22 23:59 42 L 93 O2 Del Method O2 Del Method O2 Flow Rate O2 Flow Rate 07/15/22 09:17 07/15/22 08:00 Nasal Cannula 2 07/15/22 08:00 Nasal Cannula 2 07/15/22 06:44 07/15/22 06:44 Nasal Cannula 2 07/15/22 06:30 Nasal Cannula 2 07/15/22 05:00 Nasal Cannula 2 07/15/22 04:01 Nasal Cannula 2 07/15/22 04:00 Nasal Cannula 2 07/15/22 03:31 07/15/22 03:31 Room Air 07/15/22 03:30 Room Air 07/15/22 03:01 Room Air 07/15/22 02:31 Room Air 07/15/22 02:01 Room Air 07/15/22 01:41 Room Air 07/15/22 00:32 Room Air 07/14/22 23:59 Room Air Laboratory Results 07/15/22 06:22 07/15/22 06:22 PG Care Time/CCT Total # of Minutes Spent Total Time Spent with Patient: Total time spent is greater than 50% in coordination of care (as documented) at patient's floor/unit and/or counseling patient: Coding Level of Care Code 74466 SUB INP/OBS CARE 3/50MIN Diagnoses Junctional bradycardia R00.1 SALONI (acute kidney injury) N17.9 Elevated liver enzymes R74.8 Elevated troponin R77.8 Chronic, continuous use of opioids F11.90 PAD (peripheral artery disease) I73.9 Pulmonary hypertension I27.20
--- NOTE | 2022-07-15 11:50 | Electrocardiogram Report ---
Test Reason : Blood Pressure : / mmHG Vent. Rate : 043 BPM Atrial Rate : 043 BPM P-R Int : 000 ms QRS Dur : 080 ms QT Int : 464 ms P-R-T Axes : 000 021 100 degrees QTc Int : 392 ms Junctional bradycardia Borderline Criteria for Septal infarct , age undetermined Diffuse Minor Nonspecific T wave abnormality Abnormal ECG When compared with ECG of 14-JUL-2022 18:59, Borderline Criteria for Septal infarct now present Otherwise no significant change Confirmed by Nabor Fuentes ([id number] on 07/15/2022 11:50:28 AM Referred By: REFERRED SELF Confirmed By:Nabor Fuentes
[2022-07-15] MEDS: SODIUM CHLORIDE 0.9% 1000ML 1,000 ML IV SCH ×2 (12:35→22:35)
[2022-07-15] MEDS: predniSONE 1 MG TAB PO SCH (21:28)
[2022-07-15] MEDS: ACETAMINOPHEN 325 MG TAB PO PRN (21:28)
--- NOTE | 2022-07-15 23:28 | Billing Data ---
Date of Service July 14, 2022 Coding Level of Care Code 34481 INT INP/OBS CARE
[2022-07-16 05:20] LABS: Basophils # (auto) 0.08 K/uL (0-0.2); Eosinophils # (auto) 0.34 K/uL (0-0.50); Eosinophils % (auto) 4.1 %; Hematocrit (blood only) 30.5 % (34.1-44.9); Hemoglobin 9.9 g/dl (12.0-16.0); Immature Granulocytes # (auto) 0.08 K/uL (0.00-0.02); Lymphocytes # (auto) 1.18 K/uL (1.2-3.4); Lymphocytes % (auto) 14.1 %; Mean Corpuscular Hemoglobin 30.3 pg (25.0-34.0); Mean Corpuscular Hgb Conc 32.5 g/dL (32.0-36.0); Mean Corpuscular Volume 93.3 fL (80.0-100.0); Mean Platelet Volume 10.6 fL (9.4-12.3); Monocytes # (auto) 1.06 K/uL (0.24-0.82); Monocytes % (auto) 12.7 %; Neutrophils % (auto) 67.1 %; Platelet Count 209 K/uL (130-400); RDW Coefficient of Variation 15.9 % (11.5-14.5); RDW Standard Deviation 54.4 fL (36.4-46.3); Red Blood Count 3.27 M/uL (3.93-5.22); White Blood Count 8.34 K/ul (4.8-10.8)
[2022-07-16 05:35] LABS: BUN Creatinine Ratio 15.5 (10-20); Calcium 8.3 mg/dl (8.5-10.1); Creatinine Clr Calc Pharmacy 18.1 ml/min; Est GFR (African American) 25.1 ml/min; Est GFR (Non-African American) 21.6 ml/min
[2022-07-16] MEDS ORDERED: hydrALAZINE HCL 20 MG/ML VIAL IV PRN (07:59)
[2022-07-16] MEDS ORDERED: hydrALAZINE HCL 20 MG/ML VIAL IV STA (07:59)
[2022-07-16] MEDS: DULoxetine HCL 30 MG CAP PO SCH (08:22)
[2022-07-16] MEDS: AMIODARONE 200 MG TAB PO SCH (08:22)
[2022-07-16] MEDS: FERROUS SULFATE 325 MG TAB PO SCH (08:22)
[2022-07-16] MEDS: OXYBUTYNIN CHLORIDE XL 5 MG TABCR PO SCH (08:22)
[2022-07-16] MEDS: CALCIUM 600MG + VIT D 400 IU TAB PO SCH ×2 (08:22→20:38)
[2022-07-16] MEDS: GABAPENTIN 300 MG CAP PO SCH ×3 (08:23→20:38)
[2022-07-16] MEDS: HYDROXYCHLOROQUINE SULFATE 200 MG TAB PO SCH (08:23)
[2022-07-16] MEDS: LEFLUNOMIDE 10 MG TAB PO SCH (08:23)
[2022-07-16] MEDS: predniSONE 5 MG TAB PO SCH (08:23)
[2022-07-16] MEDS: SODIUM CHLORIDE 0.9% 1000ML 1,000 ML IV SCH ×2 (08:30→18:13)
--- NOTE | 2022-07-16 09:23 | Cardiology Progress Note ---
Date of Service July 16, 2022 Assessment & Plan (1) Junctional bradycardia: (2) PAF (paroxysmal atrial fibrillation): (3) Chronic anticoagulation: (4) SALONI (acute kidney injury): (5) Hypertension: Plan 1. Junctional bradycardia: She presented with a junctional bradycardia which was due to sinus bradycardia without heart block. Based on the abrupt resolution last evening I suspect this was due to sinus node exit block due to a combination of amiodarone and beta-blockade. Since amiodarone would still be present with very little change in this amount of time I suspect it was primarily the beta-sandro. At this point I would avoid drugs which affect sinus node function (beta-blockade or diltiazem, verapamil) but I would continue amiodarone since that probably is at steady state at this point. 2. Atrial fibrillation: She has a history of paroxysmal atrial fibrillation and if we can maintain sinus rhythm that is probably the best option, if we have to add medications for rate control during atrial fibrillation we may be forced to consider a pacemaker. At the moment I would continue amiodarone and anticoagulation. 3. Anticoagulation: I would recommend continued anticoagulation, currently Eliquis. 4. Acute kidney injury: This is most likely due to hypoperfusion although her creatinine is continuing to climb, however she regained sinus rhythm only last evening so this may take some time to correct. 5. Hypertension: She is quite hypertensive but based on her vital sign trend that is not a new finding. It is predominantly systolic hypertension, which may be somewhat difficult to treat since her heart rate is little bit on the low side. It does seem to be a longstanding issue and I would try to gradually control her blood pressure while hospitalized without being too concerned if her systolic pressure runs somewhat high. Currently she is on no scheduled blood pressure medications although has received hydralazine with little effect. Admission and Anticipated Discharge Date Admission Date: July 14, 2022 Subjective Patient's chart and recent events were reviewed. She has a history of paroxysmal atrial fibrillation for which she is taking amiodarone 200 mg daily and metoprolol tartrate 50 mg twice a day (according to our records) as well as Eliquis 5 mg twice a day. I believe her current course of amiodarone was started in early November 2021, however according to the chart she has been on it in the past but it was discontinued for reasons which are not clear to me. She was initially on 200 mg twice a day but she is now on once a day, her heart rate had been running in the 60s as of March 2022 as well as in mid April. She spontaneously converted to sinus rhythm although in December 2021 her heart rate remained somewhat fast while in atrial fibrillation but based on her vital signs generally was not elevated significantly. She now presents on July 14, 2022 with a heart rate in the low 40s, although per EMS her heart rate was in the 30s prehospitalization and she received atropine. Metoprolol and amiodarone have been held and her heart rate has increased to the 60s over several days. Her electrocardiogram on July 15, 2022 at 2028 showed a junctional rhythm competing somewhat with sinus bradycardia and a heart rate of 44 bpm, this morning however she is in sinus rhythm at a rate of 64 bpm. Telemetry monitoring shows an abrupt increase in heart rate at around 2100 on the evening of July 15, 2022, this would be consistent with resolution of sinus node exit block and would be consistent with the time course of beta-sandro withdrawal. At the time of my evaluation she is cold and shivering and is having blankets applied, she is somewhat vague in her history and I cannot ascertain whether she has intermittent palpitations or not. She does not have any current cardiovascular complaints. Physical Exam Physical Exam: Constitutional: Alert, cooperative and in mild distress (cold). HEENT: Unremarkable Neck: No jugular venous distention, carotid pulses are normal and equal bilatera lly without bruits. Pulmonary: Clear to auscultation bilaterally. Cardiac: Regular rhythm with no murmur, gallop or rub. Abdomen: Soft, nontender with normal bowel sounds. Extremities: No edema on the right, left is amputated. Neurologic: No focal findings. Gait was not tested. Skin: No rash, ecchymoses or petechiae. Results & Data ([facility]) Vital Signs (Past 12 Hours) Vital Signs Temp Pulse Pulse Resp BP BP Pulse Ox 07/16/22 03:00 36.7 C 62 24 174/71 H 92 07/16/22 01:57 60 07/16/22 00:14 36.8 C 60 21 170/71 H 96 07/15/22 22:00 65 16 98 07/15/22 21:49 67 22 170/65 H 91 O2 Del Method O2 Flow Rate 07/16/22 03:00 Room Air 07/16/22 01:57 07/16/22 00:14 Nasal Cannula 2 07/15/22 22:00 Nasal Cannula 2 07/15/22 21:49 2 Laboratory Results Cardiac Enzymes 07/15/22 Range/Units 12:24 Troponin I High Sens 94.6 H* (0-14) pg/ml CBC 07/16/22 Range/Units 04:47 WBC 8.34 (4.8-10.8) K/ul RBC 3.27 L (3.93-5.22) M/uL Hgb 9.9 L (12.0-16.0) g/dl Hct 30.5 L (34.1-44.9) % Plt Count 209 (130-400) K/uL Neut # (Auto) 5.60 (1.4-6.5) K/uL Lymph # (Auto) 1.18 L (1.2-3.4) K/uL Monona # (Auto) 1.06 H (0.24-0.82) K/uL Eos # (Auto) 0.34 (0-0.50) K/uL Baso # (Auto) 0.08 (0-0.2) K/uL Comprehensive Metabolic Panel 07/16/22 Range/Units 04:47 Sodium 138 (136-145) mmol/L Potassium 5.0 (3.5-5.1) mmol/L Chloride 109 H (98-107) mmol/L Carbon Dioxide 22 (21-32) mmol/L BUN 34 H (6-23) mg/dl Creatinine 2.19 H D (0.6-1.2) mg/dl Glucose 80 (70-99(Fasting)) mg/dl Calcium 8.3 L (8.5-10.1) mg/dl Intake and Output 07/15/22 07/16/22 07/16/22 22:59 06:59 14:59 Intake Total 1200 / 1570 320 / 1570 991.667 / 991.667 Output Total 120 / 621 501 / 621 Balance 1080 / 949 -181 / 949 991.667 / 991.667 Intake: IV 1000 / 1000 991.667 / 991.667 Sodium Chloride 0.9% 1000ML 1, 1000 / 1000 991.667 / 991.667 000 ml @ 100 mls/hr IV .Q10H ANGELO Rx#:[id number] Oral 200 / 570 320 / 570 Output: Urine 120 / 620 500 / 620 # Bowel Movements Other: Weight 51.2 kg Weight Measurement Method Built in [facility] Diagnostic Findings Telemetry: Junctional rhythm until around 2100 on the evening of July 15, 2022, sinus rhythm since. PG Care Time/CCT Total # of Minutes Spent Total Time Spent with Patient: Total time spent is greater than 50% in coordination of care (as documented) at patient's floor/unit and/or counseling patient: Coding Level of Care Code 40838 SUB INP/OBS CARE 3/50MIN Diagnoses Junctional bradycardia R00.1 PAF (paroxysmal atrial fibrillation) I48.0 Chronic anticoagulation Z79.01 SALONI (acute kidney injury) N17.9 Hypertension I10 Hypertension type: primary hypertension (1) Hypertension Hypertension type: primary hypertension Qualified Code(s): I10 - Essential (primary) hypertension
[2022-07-16] MEDS: PANTOprazole 40 MG TAB PO SCH ×2 (10:35→20:38)
[2022-07-16] MEDS: hydrALAZINE HCL 25 MG TAB PO SCH ×2 (10:35→20:38)
--- NOTE | 2022-07-16 11:12 | Electrocardiogram Report ---
Test Reason : Blood Pressure : / mmHG Vent. Rate : 044 BPM Atrial Rate : 061 BPM P-R Int : 000 ms QRS Dur : 084 ms QT Int : 480 ms P-R-T Axes : 000 026 040 degrees QTc Int : 410 ms Junctional bradycardia with competing sinus rhythm Abnormal ECG When compared with ECG of 15-JUL-2022 09:17, No significant change was found Confirmed by Mariano Casper ([id number] on 07/16/2022 11:11:58 AM Referred By: REFERRED SELF Confirmed By:Mariano Casper
--- NOTE | 2022-07-16 11:21 | Electrocardiogram Report ---
Test Reason : Blood Pressure : / mmHG Vent. Rate : 064 BPM Atrial Rate : 064 BPM P-R Int : 182 ms QRS Dur : 084 ms QT Int : 400 ms P-R-T Axes : 034 033 -69 degrees QTc Int : 412 ms Normal sinus rhythm Possible Left atrial enlargement Nonspecific T wave abnormality Abnormal ECG When compared with ECG of 15-JUL-2022 20:28, (unconfirmed) Sinus rhythm has replaced Junctional rhythm Confirmed by Mariano Casper ([id number] on 07/16/2022 11:21:21 AM Referred By: REFERRED SELF Confirmed By:Mariano Casper
[2022-07-16] MEDS: ACETAMINOPHEN 325 MG TAB PO PRN (11:26)
--- NOTE | 2022-07-16 13:47 | Hospitalist Progress Note ---
Date of Service July 16, 2022 Assessment & Plan (1) Junctional bradycardia: Plan: Resolved off metoprolol. She remains on amiodarone. She has back in normal sinus rhythm. Cardiology consultation appreciated. Continue telemetry (2) SALONI (acute kidney injury): Plan: Creatinine bumped slightly to 2.1. Continue IV fluids. Monitor intake and output. Serial labs. Lasix is on hold (3) Elevated liver enzymes: Plan: Likely secondary to demand ischemia due to bradycardia. No intervention necessary at this time. Serial labs (4) Elevated troponin: Plan: Mild. No evidence of acute coronary syndrome. (5) Chronic, continuous use of opioids: Plan: Due to rheumatoid arthritis. Continue prednisone (6) PAD (peripheral artery disease): Plan: Right AKA status in November 2021. Stable. Continue current medical management (7) Pulmonary hypertension: Plan: Current cardiac echo reveals somewhat higher right ventricular systolic pressures from previous study. This needs to be followed periodically. Plan Continue telemetry. Metoprolol has been discontinued. Continue all other medications as usual. Adjust hydralazine as needed for adequate blood pressure control. Hopefully she can go home tomorrow, July 17 Admission and Anticipated Discharge Date Admission Date: July 14, 2022 Subjective Alert and oriented. She is back in normal sinus rhythm with normal heart rate. Blood pressure is high and hydralazine has been added. Creatinine has risen slightly and she will continue with IV fluids. Cardiology consultation noted. Metoprolol has been discontinued but she remains on amiodarone. Hopefully she can go home tomorrow, July 17 Review of Systems Review of Systems: Constitutional-no fever or chills ENT-no blurred vision, no double vision, no epistaxis, no sore throat Respiratory-no cough, no wheezing, no shortness of breath Cardiac-no palpitations, no chest pain, no syncope GI-no nausea, vomiting, diarrhea, melena, hematochezia -no urinary retention, no urinary incontinence, no dysuria, no hematuria Musculoskeletal-no joint pain, no muscle tenderness Skin-no bruising, no rashes, no pruritus Neuro-no isolated weakness, no paresthesia, no weakness Psych-no depression, no anxiety Physical Exam Physical Exam: General-alert and oriented x3, no fevers, no chills. Comp laining of malaise however HEENT-head atraumatic and normocephalic, pupils equal and reactive to light, extraocular muscles intact Neck-no lymphadenopathy or thyromegaly, trachea midline Chest-clear to auscultation percussion. No rales wheezing or rhonchi Cardiac-regular rhythm. Normal rate. Normal S1 and S2 Abdomen-normal bowel sounds, nontender, no hepatosplenomegaly Extremities-no cyanosis, clubbing, or edema Neuro-cranial nerves II through XII intact, motor and sensory function within no rmal limits, strength symmetrical , no focal deficits Psych-normal affect, normal mood Results & Data Results & Data ([facility]) Vital Signs (Past 12 Hours) Vital Signs Temp Pulse Pulse Resp BP BP Pulse Ox 07/16/22 11:30 39.0 C H 07/16/22 13:00 88 26 H 07/16/22 12:00 71 22 07/16/22 11:04 91 H 30 H 07/16/22 11:04 159/74 H 07/16/22 11:00 89 33 H 07/16/22 08:00 70 07/16/22 08:00 37.3 C 07/16/22 10:00 84 20 07/16/22 09:47 208/75 H 07/16/22 09:47 86 19 07/16/22 09:00 81 17 07/16/22 08:00 78 17 07/16/22 07:50 213/109 H 07/16/22 07:50 77 23 07/16/22 07:00 69 20 95 07/16/22 10:45 07/16/22 08:43 07/16/22 03:00 36.7 C 62 24 174/71 H 92 07/16/22 01:57 60 Pulse Ox O2 Del Method O2 Del Method 07/16/22 11:30 07/16/22 13:00 07/16/22 12:00 07/16/22 11:04 07/16/22 11:04 07/16/22 11:00 07/16/22 08:00 07/16/22 08:00 07/16/22 10:00 07/16/22 09:47 07/16/22 09:47 07/16/22 09:00 07/16/22 08:00 07/16/22 07:50 07/16/22 07:50 07/16/22 07:00 07/16/22 10:45 94 Room Air 07/16/22 08:43 Room Air 07/16/22 03:00 Room Air 07/16/22 01:57 Laboratory Results 07/16/22 04:47 07/16/22 04:47 PG Care Time/CCT Total # of Minutes Spent Total Time Spent with Patient: Total time spent is greater than 50% in coordination of care (as documented) at patient's floor/unit and/or counseling patient: Coding Level of Care Code 99427 SUB INP/OBS CARE 3/50MIN Diagnoses Junctional bradycardia R00.1 SALONI (acute kidney injury) N17.9 Elevated liver enzymes R74.8 Elevated troponin R77.8 Chronic, continuous use of opioids F11.90 PAD (peripheral artery disease) I73.9 Pulmonary hypertension I27.20
[2022-07-16] MEDS: predniSONE 1 MG TAB PO SCH (20:38)
[2022-07-17] MEDS: SODIUM CHLORIDE 0.9% 1000ML 1,000 ML IV SCH (04:30)
[2022-07-17 06:09] LABS: Basophils # (auto) 0.07 K/uL (0-0.2); Basophils % (auto) 0.7 %; Eosinophils % (auto) 3.2 %; Hematocrit (blood only) 31.8 % (34.1-44.9); Hemoglobin 10.4 g/dl (12.0-16.0); Immature Granulocytes # (auto) 0.12 K/uL (0.00-0.02); Immature Granulocytes % (auto) 1.3 %; Lymphocytes # (auto) 1.16 K/uL (1.2-3.4); Lymphocytes % (auto) 12.3 %; Mean Corpuscular Hgb Conc 32.7 g/dL (32.0-36.0); Mean Corpuscular Volume 91.6 fL (80.0-100.0); Mean Platelet Volume 10.6 fL (9.4-12.3); Monocytes # (auto) 1.15 K/uL (0.24-0.82); Monocytes % (auto) 12.2 %; Neutrophils # (auto) 6.62 K/uL (1.4-6.5); Neutrophils % (auto) 70.3 %; Platelet Count 219 K/uL (130-400); RDW Coefficient of Variation 15.9 % (11.5-14.5); RDW Standard Deviation 51.7 fL (36.4-46.3); Red Blood Count 3.47 M/uL (3.93-5.22); White Blood Count 9.42 K/ul (4.8-10.8)
[2022-07-17 06:36] LABS: BUN Creatinine Ratio 16.6 (10-20); Calcium 8.2 mg/dl (8.5-10.1); Creatinine Clr Calc Pharmacy 27.3 ml/min; Est GFR (African American) 41.3 ml/min; Est GFR (Non-African American) 35.6 ml/min; Potassium 4.3 mmol/L (3.5-5.1)
[2022-07-17] MEDS: hydrALAZINE HCL 25 MG TAB PO SCH (08:35)
[2022-07-17] MEDS: GABAPENTIN 300 MG CAP PO SCH (08:35)
[2022-07-17] MEDS: PANTOprazole 40 MG TAB PO SCH (08:35)
[2022-07-17] MEDS: AMIODARONE 200 MG TAB PO SCH (08:36)
[2022-07-17] MEDS: OXYBUTYNIN CHLORIDE XL 5 MG TABCR PO SCH (08:36)
[2022-07-17] MEDS: FERROUS SULFATE 325 MG TAB PO SCH (08:36)
[2022-07-17] MEDS: DULoxetine HCL 30 MG CAP PO SCH (08:36)
[2022-07-17] MEDS: CALCIUM 600MG + VIT D 400 IU TAB PO SCH (08:36)
[2022-07-17] MEDS: HYDROXYCHLOROQUINE SULFATE 200 MG TAB PO SCH (08:36)
[2022-07-17] MEDS: predniSONE 5 MG TAB PO SCH (08:36)
[2022-07-17] MEDS: LEFLUNOMIDE 10 MG TAB PO SCH (08:36)
[2022-07-17] MEDS ORDERED: amLODIPine BESYLATE 5 MG TAB PO SCH (09:00)
[2022-07-17] MEDS ORDERED: APIXABAN 5 MG TABLET PO SCH (09:00)
--- NOTE | 2022-07-17 10:40 | Discharge Summary ---
Date of Service July 17, 2022 Admission HPI Per Admitting Provider Chief Complaint: Patient is a 71-year-old female with past medical history of rheumatoid arthritis, paroxysmal supraventricular tachycardia, paroxysmal atrial fibrillation, hypertension, chronic anticoagulation, right above-knee amputation, left ventricular hypertrophy, cervical neuropathy, and chronic opioid use who presented to the ED for the chief complaint of bradycardia. Patient is with at the time of my interview. Patient and report that around 1500 hrs. today, patient began experiencing nausea and general unwellness. This was after being set up and placed into bed with the assistance of the patient's . Because of the patient's general unwell feeling, the took her heart rate which was down in the low 30s. It was at this time that they decided to go to the emergency room for further evaluation. She denies any shortness of breath, chest pain, calf pain in her left extremity, or headache. Continues to feel somewhat nauseous and overall fatigued but otherwise has no other complaints at this time. Of note patient did have her pulse taken a couple days ago and it was in the low 60s per 's recollection. No recent illnesses. is in charge of all of the patient's medications and her last dose of metoprolol was this morning at 9 AM. There has been no recent changes/increases in medication. No history of tick bites recently. Lastly, it was noted that the patient did have a large loose bowel movement today but it does not still have solid components and there is no blood noted. This happened prior to the symptoms that she was feeling. ED course: had called EMS due to the bradycardia. During the EMS ride the patient was given atropine after rhythm strip was showing bradycardia in the 30s. Blood pressure was stable throughout the whole ordeal above 120 systolic. No desaturation and oxygen or shortness of breath. Upon arrival to the ED patient's heart rate was in the mid 40s with good BP. She had an evaluation by the ED provider as well as lab work which was positive for mildly elevated potassium at 5.2, elevated BUN and creatinine at 24 and 1.37 respectively, elevated AST and alk phos at 49 and 163 respectively, and elevated troponin at 84.4. Chest x-ray was significant for stable mild cardiomegaly and chronic interstitial change with mild emphysema. No acute process. Cardiology was called who recommended admission to the hospital with withholding beta-blockade for evaluation in the morning. It is at this time that the hospitalist service was consulted for admission Principal Diagnosis Junctional bradycardia-symptomatic SALONI Discharge Exam Vitals reviewed Gen: [AAOx3, NAD] HEENT: [anicteric sclerae, EOMI] CV: [RRR no mgr nl S1S2] Pulm: [CTAB no wcr] Abd: [+BS soft NT ND no masses or hernias] Ext: [no edema, right AKA] Skin: [no rashes, warm/dry] Neuro: [full strength throughout] Discharge Data Allergies Allergy/AdvReac Type Severity Reaction Status Date / Time dalbavancin Allergy Severe hypotension, Verified 07/14/22 22:44 flushing, tachypnea Consultations 07/14/22 22:04 ED Decision to Admit Stat 07/14/22 23:23 Consult Cardiology Routine Hospital Course (1) Junctional bradycardia: Resolved off metoprolol. She remains on amiodarone but dose reduced on dis charge to 200mg every other day as er recommendation from Dr. Fuentes back in [facility] with rates in 80s on day of discharge Cardiology consultation appreciated Feeling much better stable for dc to home (2) SALONI (acute kidney injury): Creatinine up to 2.1. Possibly due to bradycardia and hypo[erfusion/prerenal in setting of lasix use held lasix and advised to only take prn on discharge, dc home po KCl received IVFs and mandarin tutor improved down to 1.45 on day of discharge making urine (3) Elevated liver enzymes: mild, secondary to poor perfusion from bradycardia (4) Elevated troponin: Likely secondary to demand ischemia due to bradycardia. No intervention necessary at this time. ECHO without WMAs (5) Hypertension: BPs quite high after metoprolol stopped added hydralazine 25mg po tid and amlodipine 5mg daily given SALONI adjust as needed as outpt (6) PAD (peripheral artery disease): Right AKA status in November 2021. Stable. Continue current medical management (7) Pulmonary hypertension: Current cardiac echo reveals somewhat higher right ventricular systolic pressures from previous study. This needs to be followed periodically. recommend overnight sleep study as outpt to assess for nocturnal hypoxemia (8) PAF (paroxysmal atrial fibrillation): continue Eliquis in sinus rhythm here reducing amiodarone to every other day and stopped metoprolol as above (9) RA (rheumatoid arthritis): continue home prednisone, plaquenil, leflunomide Plan Dispo-stable for dc to home Discussed care with Cardiology on day of discharge Total Time Total Time Spent Total Time Spent (In Minutes): 35 min Discharge Plan Discharge Items Patient Disposition: Home - Self-Care Reason For Visit: BRADYCARDIA Discharge Diagnosis: Bradycardia, Acute kidney injury Activity: Resume your previous activity Non-emergency contact: Primary Care Provider and Chief Resource Officer Call non-emergency contact if: you have any medication questions and your symptoms worsen Follow-up/Referrals: Edd Vance MD [Physician] - (Please keep your scheduled appointment for the end of the month.) Sylvia Nails MD [Primary Care Provider] - (Follow up within 1-2 weeks.) Diet: Heart Healthy Addtl Attending Provider Instructions: You were admitted with a low heart rate and kidney failure. The low heart rate improved with stopping your metoprolol. The Chief Resource Officer is recommending that your amiodarone dose be lowered down to 200mg every other day as well. Your hear rates improved. Your kidney failure improved. You should only take the lasix as needed for weight gain of 2 lbs in a day or swelling. Because your metoprolol was stopped, your blood pressure was elevated. You were started on amlodipine and hydralazine as new blood pressure medications for this. These medications may need to be adjusted by your PCP and/or Cardiology after discharge. Please check your blood pressure each day and let your doctor know if it is consistently higher than 160 or lower than 100 for the top number. Pending Studies at Discharge: No Stand-Alone Forms: [facility] [employer], Smoking Cessation Medications and DC Order Prescriptions: New amlodipine 2.5 mg tablet 2.5 mg PO DAILY Qty: 30 0RF hydralazine 25 mg Tablet 25 mg PO TID Qty: 90 0RF Continued meclizine 25 mg tablet 25 mg PO BID PRN (Reason: dizziness) Qty: 20 0RF duloxetine 30 mg capsule,delayed release(DR/EC) 30 mg PO DAILY Qty: 90 3RF Label Comments: QAM ferrous sulfate 325 mg (65 mg iron) tablet 325 mg PO QAM Qty: 90 1RF leflunomide [Arava] 20 mg tablet 20 mg PO QAM Qty: 90 0RF Eliquis 5 mg tablet 5 mg PO BID Qty: 180 3RF omeprazole 20 mg capsule,delayed release(DR/EC) 20 mg PO BID Qty: 180 3RF prednisone 5 mg tablet 5 mg PO QAM Qty: 90 1RF prednisone 1 mg tablet 1 mg PO QPM Qty: 90 1RF gabapentin 300 mg capsule 300 mg PO TID 90 Days Qty: 270 1RF sennosides [senna] 8.6 mg tablet 8.6 mg PO DAILY PRN (Reason: Constipation) calcitriol [Rocaltrol] 0.5 mcg capsule 0.5 mcg PO 2XWK Qty: 30 3RF Rx Instructions: Mondays and Fridays furosemide 40 mg tablet 40 mg PO DAILY PRN (Reason: Edema) oxybutynin chloride 15 mg tablet extended release 24hr 15 mg PO DAILY Qty: 90 1RF Label Comments: QPM Probiotic 3 billion cell Capsule 3,000 mmu cells PO QAM Macuvite Eye Care 7,160 unit-113 mg-100 unit Tablet 1 tab PO QAM cranberry 500 mg Capsule 500 mg PO QPM Calcium 600 + D(3) 600 mg calcium- 200 unit Capsule 1 cap PO BID hydroxychloroquine [Plaquenil] 200 mg tablet 200 mg PO DAILY Label Comments: QAM Changed amiodarone 200 mg tablet 200 mg PO Q2D Qty: 90 1RF Label Comments: QAM Discontinued potassium chloride 10 mEq capsule, extended release 10 meq PO QAM Qty: 90 3RF metoprolol tartrate 50 mg tablet 50 mg PO BID Qty: 180 3RF Discharge Orders: Discharge Order (Routine); Ordered 07/17/22 Ordered By: Earline Carbajal Admission Data Admit Date/Time: 07/14/22 23:06 Attending Provider: Earline Carbajal Admit Provider: Jose Rafael Pink Primary Care Provider: Sylvia Nails Other Providers: Lexis Brady ; Nabor Fuentes Coding Level of Care Code HOSP INP/OBS DISCH >30 MIN Diagnoses Junctional bradycardia R00.1 SALONI (acute kidney injury) N17.9 Elevated liver enzymes R74.8 Elevated troponin R77.8 Hypertension I10 Hypertension type: primary hypertension PAD (peripheral artery disease) I73.9 Pulmonary hypertension I27.20 PAF (paroxysmal atrial fibrillation) I48.0 RA (rheumatoid arthritis) M06.9
--- NOTE | 2022-07-17 11:00 | Cardiology Progress Note ---
Date of Service July 17, 2022 Assessment & Plan (1) Junctional bradycardia: Plan: Resolved off beta-sandro, do not restart. Would reduce amiodarone to 200 mg every 2 days to further decrease risk of bradycardia while maintaining some level of antiarrhythmic effect. (2) PAF (paroxysmal atrial fibrillation): Plan: As above, resume amiodarone at reduced dose. (3) Chronic anticoagulation: Plan: She is borderline between low dose and full dose apixaban with variable renal function, weight less than 60 kg, and age less than 78. Reasonable to discharge on apixaban 5 mg twice daily but will need to monitor renal function closely. (4) Hypertension: Plan: Mild to moderate hypertension, avoid beta-sandro. Could increase amlodipine to 5 mg daily. (5) SALONI (acute kidney injury): Plan: Resolving, etiology uncertain. Could have been due to her junctional tachycardia but this does not seem particularly likely given the absence of hypotension. Suspect her renal function is borderline, as such she should avoid furosemide in the absence of clear-cut/overt volume overload. Discussed the importance of obtaining weight before taking any furosemide dose and not relying on leg edema alone (which only occurred after a surgery and is not routine). Cardiology follow-up with Dr. Vance, she does have an appointment for later this month. Admission and Anticipated Discharge Date Admission Date: July 14, 2022 Subjective No complaints. Patient denied chest pain, dyspnea, subjective palpitations, or lightheadedness. Telemetry showed sinus rhythm with appropriate heart rate (70-90 bpm). Physical Exam Physical Exam: No distress. Systolic blood pressure 150-180 mmHg range, normal diastolic pressure. Pulse 78 bpm and regular. Skin: no ecchymoses or generalized lesions. HEENT: unremarkable. Neck: Jugular venous pulse at the clavicle at 90 degrees, no carotid bruits. Lungs: clear. Cardiac: regular rhythm, 2/6 systolic ejection murmur left sternal border radiating to the apex, no diastolic murmur. Abdomen: benign. Extremities: no edema, right AKA, difficulty palpating left foot pulse, mildly cool with fair capillary refill (2 to 3 seconds). Neurologic: normal affect, nonfocal. Results & Data ([facility]) Laboratory Results 2.19 yesterday).Normal electrolytes, BUN 24, creatinine 1.45 (down from 2.19 yesterday). PG Care Time/CCT Total # of Minutes Spent Total Time Spent with Patient: Total time spent is greater than 50% in coordination of care (as documented) at patient's floor/unit and/or counseling patient: Coding Level of Care Code 12903 SUB INP/OBS CARE 3/50MIN Diagnoses Junctional bradycardia R00.1 PAF (paroxysmal atrial fibrillation) I48.0 Chronic anticoagulation Z79.01 Hypertension I10 Hypertension type: primary hypertension SALONI (acute kidney injury) N17.9 (1) Hypertension Hypertension type: primary hypertension Qualified Code(s): I10 - Essential (primary) hypertension
== END 2022-07-17 13:02 | disposition home or self-care (01) | DRG 309 ==
LOC: ED 18:54 → SUATTDRO 23:06 → EDINP 23:06 → 1E 23:24

== ENCOUNTER 2022-11-18 11:21 | Inpatient (IN) ==
[2022-11-18] MEDS ORDERED: dilTIAZem HCl 5 MG/ML 5 ML VIAL IV ONE ×2 (11:36→12:23)
[2022-11-18] MEDS ORDERED: dilTIAZem HCl 5 MG/ML 5 ML VIAL IV STA ×2 (12:23)
[2022-11-18] MEDS ORDERED: STAT IV Infusion **Titration per Protocol STA (12:23)
[2022-11-18] MEDS: dilTIAZem HCL 125 MG in DEXTROSE 5% 100 ML IV SCH (12:44)
--- NOTE | 2022-11-18 12:53 | XRay Report ---
SINGLE VIEW CHEST CLINICAL HISTORY: Atypical chest pain FINDINGS: 2 AP, portable, upright chest radiographs are compared to study dated 07/14/2022. The heart i s enlarged noting atherosclerotic calcification of the thoracic aorta. The pulmonary vasculature is n oncongested. Chronic interstitial thickening is similar to previous. There is bibasilar scarring/atel ectasis. The lungs and pleural spaces are otherwise clear. No pneumothorax is seen. The skeletal stru ctures are osteopenic. Advanced arthritic change is seen in the shoulders. The bony thorax is grossly intact. Hardware is partially visualized in the lumbar spine. Surgical clips are noted in the left n renetta. IMPRESSION: Cardiomegaly with no active disease in the chest. ACT 112: Negative or not required by law. Electronically signed by: Geremias Avila M.D. 11/18/2022 12:52 PM
--- NOTE | 2022-11-18 12:54 | XRay Report ---
XR foot LT min 3V routine HISTORY: 72 years-old Female necrotic 1st 3rd 4th toes chronic soft tissue abnormality with possible osteomyelitis COMPARISON: Left ankle radiographs 10/03/2022 TECHNIQUE: 3 views of the left foot FINDINGS: Cannulated screw noted within the distal aspect of the first digit which is fractured at its midporti on. Mild surrounding lucency. There is severe degeneration with incomplete bony fusion of the first D IP joint with complete bony fusion of the first MTP joint. Postoperative changes with partial resecti on of the distal second through fifth metatarsals. Severe osteoarthritis with areas of at least parti al bony fusion throughout the midfoot and midfoot forefoot junction. Complete bony fusion of the seco nd through fourth PIP joints. Arterial calcifications. No acute fracture, dislocation or acute osseou s erosion identified. Demineralized appearance of the bones. Benign-appearing linear sclerosis of the distal tibial metaphysis. IMPRESSION: 1. No acute fracture, dislocation or acute osseous erosion identified. 2. Demineralized appearance of the bones with severe degenerative changes as above. 3. Chronic postoperative changes. Fractured cannulated screw of the first digit with suggested hardwa re loosening. ACT 112: Negative or not required by law. The above report was generated using voice recognition software. It may contain grammatical, syntax o r spelling errors. Electronically signed by: Mars Cespedes M.D. 11/18/2022 12:53 PM
--- NOTE | 2022-11-18 13:09 | Emergency Department Note ---
History of Present Illness General Chief Complaint: Cardiac Assessment Time Seen by Provider: 11/18/22 11:24 History of Present Illness Provider Complaint: + palpitations and + atrial fibrillation Onset (ago): 1 day(s) Duration: + Constant Context: + occurred during rest Arrhythmia history: + atrial fibrillation and + on anti-coagulants Associated symptoms: no chest pain, no shortness of breath, no syncope, no near- syncope, no nausea, no vomiting, no anxiety, no diaphoresis or no cough HPI narrative: Patient also reports that her toes have appeared more black. She states she has had black toes for the last month however her notes that they appear to be getting worse. She states she had her previous amputation and toe surgeries done by Dr. Patel. Home Medications Medication Instructions Recorded Confirmed Type lactobacillus combination no.4 3 3,000 mmu cells PO QAM 03/30/18 11/18/22 History billion cell capsule (Probiotic) cranberry 500 mg capsule 500 mg PO QPM 09/29/18 11/18/22 History calcium carbonate 600 mg-vitamin 1 cap PO BID 07/16/20 11/18/22 History D3 5 mcg (200 unit) capsule (Calcium 600 + D(3)) sennosides 8.6 mg tablet (senna) 8.6 mg PO DAILY PRN Constipation 02/28/21 11/18/22 History meclizine 25 mg tablet 25 mg PO BID PRN dizziness #20 tabs 07/26/21 11/18/22 Rx duloxetine 30 mg capsule,delayed 30 mg PO DAILY #90 caps 12/30/21 11/18/22 Rx release calcitriol 0.5 mcg capsule 0.5 mcg PO 2XWK #30 caps 03/05/22 11/18/22 Rx (Rocaltrol) apixaban 5 mg tablet (Eliquis) 5 mg PO BID #180 tabs 05/19/22 11/18/22 Rx omeprazole 20 mg capsule,delayed 20 mg PO BID #180 caps 05/27/22 11/18/22 Rx release prednisone 1 mg tablet 1 mg PO QPM #90 tabs 06/10/22 11/18/22 Rx prednisone 5 mg tablet 5 mg PO QAM #90 tabs 06/10/22 11/18/22 Rx gabapentin 300 mg capsule 300 mg PO TID 90 days #270 caps 07/01/22 11/18/22 Rx amlodipine 5 mg tablet 5 mg PO DAILY #90 tabs 07/21/22 11/18/22 Rx ferrous sulfate 325 mg (65 mg 325 mg PO QAM #90 tabs 08/01/22 11/18/22 Rx iron) tablet oxybutynin chloride 15 mg 15 mg PO DAILY #90 tabs 09/01/22 11/18/22 Rx tablet,extended release 24 hr leflunomide 20 mg tablet (Arava) 20 mg PO QAM #90 tabs 09/03/22 11/18/22 Rx amiodarone 200 mg tablet 200 mg PO Q2D #90 tabs 09/09/22 11/18/22 Rx hydroxychloroquine 200 mg tablet 200 mg PO DAILY #90 tabs 10/16/22 11/18/22 Rx (Plaquenil) hydrocodone 10 mg-acetaminophen 1 tab PO BID PRN pain #60 tabs 11/05/22 11/18/22 Rx 325 mg tablet hydralazine 25 mg tablet 25 mg PO TID #270 tabs 11/11/22 11/18/22 Rx Allergies Allergy/AdvReac Type Severity Reaction Status Date / Time dalbavancin Allergy Severe hypotension, Verified 11/14/22 13:09 flushing, tachypnea Past Med/Surg History Medical History Acute bronchitis Acute respiratory failure with hypoxia Chronic back pain Chronic steroid use Closed fracture of coccyx Constipation due to opioid therapy DDD (degenerative disc disease) GI bleed HOSPITALIZED 02/24/22 AT [place] (ELIQUIS ON HOLD) Hip dislocation, left RECENT DX (CAN LAY ON LEFT SIDE ONLY) History of coronary angiogram Right Lower Extremity Arteriogram, Percutaneous Transluminal Angioplasty and Stenting of Right Superficial Femoral Artery History of COVID-19 hospitalized 07/16/20 [facility]. hypoxia, fever, cough, chills, loss of taste/smell. RESOLVED History of Hodgkin's lymphoma 2003/under surveillance by PCP/Dr. Thibodeaux- S/p chemo in 2003- none since History of oral cancer s/p tongue excision left side (no chemo/no XRT 2013) No issues since Hypertension Hypomagnesemia Junctional bradycardia Overactive bladder PAD (peripheral artery disease) PAF (paroxysmal atrial fibrillation) hx - on Eliquis Paroxysmal SVT (supraventricular tachycardia) hx (follows with Dr. Vance) Peripheral arterial disease RA (rheumatoid arthritis) on chronic steroid Skin benign neoplasm Surgical History H/O foot surgery TOES X MULTIPLE H/O parathyroidectomy History of above knee amputation RT>NO PROSTHETIC (USING W/C) History of biopsy Of soft tissue of the neck History of breast surgery Puncture aspiration of cyst History of carpal tunnel release RIGHT History of cataract surgery both eye one on 09/08/22 and the other 09/23/22 History of colonoscopy History of colposcopy with cervical biopsy with endocervical curettage History of glossectomy with unilateral radical neck dissection History of hip surgery R/L REVISION Left MAURO revision: 11/09/18: SABx1 at L3-L4 at [facility] MULTIPLE HIP SURGERIES History of right above knee amputation (11/14/21) Right Above Knee Amputation(Right) - Manuel Baeza MD, FACS History of spinal surgery 10/02/[address] [facility] [address] Sanford>LUMBAR AREA History of total hip arthroplasty R/L History of total knee replacement R/L History of tubal ligation Hx of hand surgery RIGHT Hx of knee surgery MULTIPLE SURGERIES ON RT LEG Right TKA revision, I&D, antibiotic spacer: 12/29/19: SAB + PNB at [facility] PONV (postoperative nausea and vomiting) S/P revision of total knee 12/29/19 Dr. Ihsan Vela- Right total knee revision, Incision and drainage with antibiotic cement spacer Family History Mother Breast cancer Colorectal cancer Cancer Gastric cancer Aunt Colorectal cancer Other Family history non-contributory No family history of adverse response to anesthesia Denies family history of Ovarian cancer Prostate cancer Myocardial infarction Social History Smoking Status: Never smoker Second Hand Exposure: No; Do You Dip or Chew Tobacco: No; Hx Alcohol Use: No Hx Substance Use: No Preferred Language: Ukrainian Communication Ability: Effective Visual Impairment: No Limitations 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: Normal Inventory Control Analyst Required: No Beliefs That Will Affect Care: None marital status: Current Living Situation: Spouse current occupational status: retired How many Children do You have: 1 Feels Safe at Home: Yes Childhood Exposure to Second-Hand Smoke: Yes Diet: regular caffeine: Yes Dental Care, Regularly: Yes Physical Activity Frequency: Other Physical Activity Frequency Comment: Limited by a physical condition Seatbelt Use: always Sunscreen Use: Yes Assistive Devices: Wheelchair Physical Exam Vital Signs: Vital Signs - 24 hr 11/18/22 11:52 11/18/22 11:52 11/18/22 11:52 Temperature 36.5 C Temperature Source Oral Oral Pulse Rate 150 H Pulse Rate [Apical ] Pulse Rate from Sp O2 Sensor Respiratory Rate 20 Respiratory Effort / Characteristics Respiratory Depth Blood Pressure 116/86 Blood Pressure [Ri ght Arm] Blood Pressure Sheri n 96 Blood Pressure Sheri n [Right Arm] Blood Pressure Pos ition Sitting Pulse Oximetry 97 Oxygen Delivery Me thod Room Air Room Air Sepsis Recent Feve r Within 48 Hours No Sepsis New/Unexpla ined Change in Men otño Status No Sepsis Action Take n by Nursing No Action Required 11/18/22 11:57 11/18/22 13:09 11/18/22 12:26 Temperature Temperature Source Pulse Rate 128 H 129 H Pulse Rate [Apical ] 115 H Pulse Rate from Sp O2 Sensor Respiratory Rate 20 27 H Respiratory Effort / Characteristics Non-Labored Sponta neous Respiratory Depth Normal Blood Pressure Blood Pressure [Ri ght Arm] 128/71 Blood Pressure Sheri n Blood Pressure Sheri n [Right Arm] 90 Blood Pressure Pos ition Pulse Oximetry 95 Oxygen Delivery Me thod Room Air Sepsis Recent Feve r Within 48 Hours Sepsis New/Unexpla ined Change in Men tooñ Status Sepsis Action Take n by Nursing 11/18/22 12:30 11/18/22 12:30 11/18/22 12:35 Temperature Temperature Source Pulse Rate 113 H Pulse Rate [Apical ] Pulse Rate from Sp O2 Sensor Respiratory Rate 23 Respiratory Effort / Characteristics Respiratory Depth Blood Pressure 113/67 98/74 L Blood Pressure [Ri ght Arm] Blood Pressure Sheri n 82 82 Blood Pressure Sheri n [Right Arm] Blood Pressure Pos ition Pulse Oximetry Oxygen Delivery Me thod Sepsis Recent Feve r Within 48 Hours Sepsis New/Unexpla ined Change in Men toño Status Sepsis Action Take n by Nursing 11/18/22 12:35 11/18/22 12:40 11/18/22 12:40 Temperature Temperature Source Pulse Rate 111 H 117 H Pulse Rate [Apical ] Pulse Rate from Sp O2 Sensor 118 H 127 H Respiratory Rate 19 24 Respiratory Effort / Characteristics Respiratory Depth Blood Pressure 112/76 Blood Pressure [Ri ght Arm] Blood Pressure Sheri n 88 Blood Pressure Sheri n [Right Arm] Blood Pressure Pos ition Pulse Oximetry 94 94 Oxygen Delivery Me thod Sepsis Recent Feve r Within 48 Hours Sepsis New/Unexpla ined Change in Men toño Status Sepsis Action Take n by Nursing 11/18/22 12:45 11/18/22 12:45 11/18/22 12:55 Temperature Temperature Source Pulse Rate 133 H Pulse Rate [Apical ] Pulse Rate from Sp O2 Sensor 123 H Respiratory Rate 19 Respiratory Effort / Characteristics Respiratory Depth Blood Pressure 120/90 103/71 Blood Pressure [Ri ght Arm] Blood Pressure Sheri n 100 81 Blood Pressure Sheri n [Right Arm] Blood Pressure Pos ition Pulse Oximetry 94 Oxygen Delivery Me thod Sepsis Recent Feve r Within 48 Hours Sepsis New/Unexpla ined Change in Men toño Status Sepsis Action Take n by Nursing 11/18/22 12:55 11/18/22 13:00 11/18/22 13:00 Temperature Temperature Source Pulse Rate 133 H 129 H Pulse Rate [Apical ] Pulse Rate from Sp O2 Sensor 130 H 128 H Respiratory Rate 22 26 H Respiratory Effort / Characteristics Respiratory Depth Blood Pressure 112/72 Blood Pressure [Ri ght Arm] Blood Pressure Sheri n 85 Blood Pressure Sheri n [Right Arm] Blood Pressure Pos ition Pulse Oximetry 94 92 Oxygen Delivery Me thod Sepsis Recent Feve r Within 48 Hours Sepsis New/Unexpla ined Change in Men toño Status Sepsis Action Take n by Nursing 11/18/22 13:05 11/18/22 13:05 11/18/22 13:10 Temperature Temperature Source Pulse Rate 122 H Pulse Rate [Apical ] Pulse Rate from Sp O2 Sensor 129 H Respiratory Rate 31 H Respiratory Effort / Characteristics Respiratory Depth Blood Pressure 128/71 118/74 Blood Pressure [Ri ght Arm] Blood Pressure Sheri n 90 88 Blood Pressure Sheri n [Right Arm] Blood Pressure Pos ition Pulse Oximetry 90 Oxygen Delivery Me thod Sepsis Recent Feve r Within 48 Hours Sepsis New/Unexpla ined Change in Men toño Status Sepsis Action Take n by Nursing 11/18/22 13:10 11/18/22 13:15 11/18/22 13:15 Temperature Temperature Source Pulse Rate 130 H 119 H Pulse Rate [Apical ] Pulse Rate from Sp O2 Sensor 129 H 126 H Respiratory Rate 19 28 H Respiratory Effort / Characteristics Respiratory Depth Blood Pressure 116/68 Blood Pressure [Ri ght Arm] Blood Pressure Sheri n 84 Blood Pressure Sheri n [Right Arm] Blood Pressure Pos ition Pulse Oximetry 93 93 Oxygen Delivery Me thod Sepsis Recent Feve r Within 48 Hours Sepsis New/Unexpla ined Change in Men toño Status Sepsis Action Take n by Nursing 11/18/22 13:20 11/18/22 13:20 11/18/22 13:25 Temperature Temperature Source Pulse Rate 128 H Pulse Rate [Apical ] Pulse Rate from Sp O2 Sensor 134 H Respiratory Rate 28 H Respiratory Effort / Characteristics Respiratory Depth Blood Pressure 121/67 116/73 Blood Pressure [Ri ght Arm] Blood Pressure Sheri n 85 87 Blood Pressure Sheri n [Right Arm] Blood Pressure Pos ition Pulse Oximetry 92 Oxygen Delivery Me thod Sepsis Recent Feve r Within 48 Hours Sepsis New/Unexpla ined Change in Men toño Status Sepsis Action Take n by Nursing 11/18/22 13:25 11/18/22 13:30 11/18/22 13:30 Temperature Temperature Source Pulse Rate 119 H 120 H Pulse Rate [Apical ] Pulse Rate from Sp O2 Sensor 118 H 127 H Respiratory Rate 28 H 24 Respiratory Effort / Characteristics Respiratory Depth Blood Pressure 105/85 Blood Pressure [Ri ght Arm] Blood Pressure Sheri n 91 Blood Pressure Sheri n [Right Arm] Blood Pressure Pos ition Pulse Oximetry 91 93 Oxygen Delivery Me thod Sepsis Recent Feve r Within 48 Hours Sepsis New/Unexpla ined Change in Men toño Status Sepsis Action Take n by Nursing 11/18/22 13:35 11/18/22 13:35 11/18/22 13:40 Temperature Temperature Source Pulse Rate 127 H 124 H Pulse Rate [Apical ] Pulse Rate from Sp O2 Sensor 131 H 124 H Respiratory Rate 25 H 20 Respiratory Effort / Characteristics Respiratory Depth Blood Pressure 111/62 Blood Pressure [Ri ght Arm] Blood Pressure Sheri n 78 Blood Pressure Sheri n [Right Arm] Blood Pressure Pos ition Pulse Oximetry 94 90 Oxygen Delivery Me thod Sepsis Recent Feve r Within 48 Hours Sepsis New/Unexpla ined Change in Men toño Status Sepsis Action Take n by Nursing 11/18/22 13:40 11/18/22 13:45 11/18/22 13:45 Temperature Temperature Source Pulse Rate 114 H Pulse Rate [Apical ] Pulse Rate from Sp O2 Sensor 112 H Respiratory Rate 24 Respiratory Effort / Characteristics Respiratory Depth Blood Pressure 102/86 83/66 L Blood Pressure [Ri ght Arm] Blood Pressure Sheri n 91 71 Blood Pressure Sheri n [Right Arm] Blood Pressure Pos ition Pulse Oximetry 94 Oxygen Delivery Me thod Sepsis Recent Feve r Within 48 Hours Sepsis New/Unexpla ined Change in Men toño Status Sepsis Action Take n by Nursing 11/18/22 13:50 11/18/22 13:50 11/18/22 13:55 Temperature Temperature Source Pulse Rate 109 H Pulse Rate [Apical ] Pulse Rate from Sp O2 Sensor 122 H Respiratory Rate 21 Respiratory Effort / Characteristics Respiratory Depth Blood Pressure 126/77 103/63 Blood Pressure [Ri ght Arm] Blood Pressure Sheri n 93 76 Blood Pressure Sheri n [Right Arm] Blood Pressure Pos ition Pulse Oximetry 92 Oxygen Delivery Me thod Sepsis Recent Feve r Within 48 Hours Sepsis New/Unexpla ined Change in Men toño Status Sepsis Action Take n by Nursing 11/18/22 13:55 11/18/22 14:00 11/18/22 14:00 Temperature Temperature Source Pulse Rate 118 H 116 H Pulse Rate [Apical ] Pulse Rate from Sp O2 Sensor 126 H 115 H Respiratory Rate 18 24 Respiratory Effort / Characteristics Respiratory Depth Blood Pressure 118/62 Blood Pressure [Ri ght Arm] Blood Pressure Sheri n 80 Blood Pressure Sheri n [Right Arm] Blood Pressure Pos ition Pulse Oximetry 94 94 Oxygen Delivery Me thod Sepsis Recent Feve r Within 48 Hours Sepsis New/Unexpla ined Change in Men toño Status Sepsis Action Take n by Nursing 11/18/22 14:05 11/18/22 14:05 11/18/22 14:05 Temperature Temperature Source Pulse Rate 129 H Pulse Rate [Apical ] Pulse Rate from Sp O2 Sensor 121 H Respiratory Rate 20 Respiratory Effort / Characteristics Respiratory Depth Blood Pressure 114/58 L 114/58 L Blood Pressure [Ri ght Arm] Blood Pressure Sheri n 76 76 Blood Pressure Sheri n [Right Arm] Blood Pressure Pos ition Pulse Oximetry 95 Oxygen Delivery Me thod Sepsis Recent Feve r Within 48 Hours Sepsis New/Unexpla ined Change in Men toño Status Sepsis Action Take n by Nursing 11/18/22 14:10 11/18/22 14:10 11/18/22 14:15 Temperature Temperature Source Pulse Rate 125 H Pulse Rate [Apical ] Pulse Rate from Sp O2 Sensor 126 H Respiratory Rate 22 Respiratory Effort / Characteristics Respiratory Depth Blood Pressure 105/65 120/67 Blood Pressure [Ri ght Arm] Blood Pressure Sheri n 78 84 Blood Pressure Sheri n [Right Arm] Blood Pressure Pos ition Pulse Oximetry 97 Oxygen Delivery Me thod Sepsis Recent Feve r Within 48 Hours Sepsis New/Unexpla ined Change in Men toño Status Sepsis Action Take n by Nursing 11/18/22 14:15 11/18/22 14:20 11/18/22 14:20 Temperature Temperature Source Pulse Rate 113 H 128 H Pulse Rate [Apical ] Pulse Rate from Sp O2 Sensor 121 H 122 H Respiratory Rate 20 24 Respiratory Effort / Characteristics Respiratory Depth Blood Pressure 106/64 Blood Pressure [Ri ght Arm] Blood Pressure Sheri n 78 Blood Pressure Sheri n [Right Arm] Blood Pressure Pos ition Pulse Oximetry 95 94 Oxygen Delivery Me thod Sepsis Recent Feve r Within 48 Hours Sepsis New/Unexpla ined Change in Men toño Status Sepsis Action Take n by Nursing 11/18/22 14:25 11/18/22 14:25 11/18/22 14:30 Temperature Temperature Source Pulse Rate 123 H Pulse Rate [Apical ] Pulse Rate from Sp O2 Sensor 128 H Respiratory Rate 23 Respiratory Effort / Characteristics Respiratory Depth Blood Pressure 120/63 92/68 L Blood Pressure [Ri ght Arm] Blood Pressure Sheri n 82 76 Blood Pressure Sheri n [Right Arm] Blood Pressure Pos ition Pulse Oximetry 95 Oxygen Delivery Me thod Sepsis Recent Feve r Within 48 Hours Sepsis New/Unexpla ined Change in Men toño Status Sepsis Action Take n by Nursing 11/18/22 14:30 11/18/22 14:45 Temperature Temperature Source Pulse Rate 130 H 110 H Pulse Rate [Apical ] Pulse Rate from Sp O2 Sensor 128 H Respiratory Rate 24 27 H Respiratory Effort / Characteristics Respiratory Depth Blood Pressure 113/70 Blood Pressure [Ri ght Arm] Blood Pressure Sheri n 84 Blood Pressure Sheri n [Right Arm] Blood Pressure Pos ition Pulse Oximetry 93 95 Oxygen Delivery Me thod Room Air Sepsis Recent Feve r Within 48 Hours Sepsis New/Unexpla ined Change in Men toño Status Sepsis Action Take n by Nursing Physical Exam: Physical Exam GENERAL: Patient appears frail. HENT: Exam performed. -Head: Normocephalic and atraumatic. NECK: Normal range of motion. Neck supple. No JVD present. No spinous process tenderness present. CV: Tachycardic rate, irregular rhythm, normal heart sounds and intact distal pulses. There is no peripheral edema. Palpable radial pulses bue. PULM/CHEST: Effort normal and breath sounds normal. No respiratory distress. No stridor. She has no wheezes. She has no rales. MUSC/SKEL: Right lower extremity: AKA Left lower extremity: Necrotic appearing third toe that are black. Palpable DP and PT pulse. Course Course 1124: The patient was evaluated in room A9. A complete history and physical exam was performed Cardiac monitoring: An order was placed for continuous cardiac monitoring. The monitor shows a rate of 150 with atrial fibrillation rhythm interpreted by me Patient was a difficult stick and large-bore IV access had to be obtained via IV team. Cardizem 10 mg IV push was given to the patient which improved her ventricular rate. 1222: Patient tachycardic in the 120s-130s. Patient will be started on Cardizem drip. 1403: Vital signs stable on Cardizem drip. Labs are within normal limits with the exception of leukocytosis of 14.2 and troponin elevation of 45.1. Chest x- ray shows no active disease in the chest and foot x-ray shows no acute fracture dislocation or acute osseous erosion there is demineralized appearance of the bones. Patient will be admitted for atrial fibrillation [facility] will be [facility]. Administered Medications Diltiazem HCl 125 mg/ Dextrose 125 mls @ 5 mls/hr IV .Q24H ANGELO; Protocol Stop: 12/18/22 12:29 Last Admin: 11/18/22 12:44 Dose: 5 mg/hr, 5 mls/hr Documented By: ROSEMARY Co-signed By: CLAYTON Daptomycin 200 mg/ Syringe 4 mls @ 2 mls/min IV Q24H ANGELO; Protocol Stop: 11/25/22 15:59 Last Admin: 11/18/22 16:29 Dose: 2 mls/min Documented By: ADRIANNE Discontinued Medications Diltiazem HCl (Diltiazem Hcl 5 Mg/Ml 5 Ml Vial) Confirm Administered Dose 25 mg IV .STK-MED ONE Stop: 11/18/22 11:37 Last Admin: 11/18/22 12:07 Dose: 10 mg Documented By: CLAYTON Co-signed By: ROSEMARY Diltiazem HCl (Diltiazem Hcl 5 Mg/Ml 5 Ml Vial) 10 mg IV NOW STA Stop: 11/18/22 12:24 Last Admin: 11/18/22 12:44 Dose: Not Given Documented By: ROSEMARY Diltiazem HCl (Diltiazem Hcl 5 Mg/Ml 5 Ml Vial) 15 mg IV NOW STA Stop: 11/18/22 12:24 Last Admin: 11/18/22 16:47 Dose: Not Given Documented By: ADRIANNE Diltiazem HCl (Diltiazem Hcl 5 Mg/Ml 5 Ml Vial) Confirm Administered Dose 25 mg IV .STK-MED ONE Stop: 11/18/22 12:24 Last Admin: 11/18/22 12:44 Dose: Not Given Documented By: ROSEMARY Lactated Ringer's (Lr) 500 mls @ 999 mls/hr IV .Q31M ONE Stop: 11/18/22 15:35 Last Infusion: 11/18/22 16:11 Dose: 0 mls/hr Documented By: Admin: 11/18/22 15:37 Dose: 999 mls/hr Documented By: ADRIANNE Magnesium Sulfate/Dextrose (Magnesium Sulfate / D5w) 1 gm in 100 mls @ 50 mls/hr IV ONE ONE Stop: 11/18/22 17:14 Last Admin: 11/18/22 16:29 Dose: 50 mls/hr Documented By: ADRIANNE Medical Decision Making Laboratory Data Attestation: I reviewed the patient's lab results. 11/18/22 12:54 11/18/22 12:54 Lab Results 11/18/22 11/18/22 11/18/22 Range/Units 12:54 12:54 12:54 WBC 14.20 H (4.8-10.8) K/ul RBC 3.66 L (4.20-5.40) M/uL Hgb 10.9 L (12.0-16.0) g/dl Hct 35.2 L (37.0-47.0) % MCV 96.2 (80.0-100.0) fL MCH 29.8 (25.0-34.0) pg MCHC 31.0 L (32.0-36.0) g/dL RDW Std Deviation 49.8 H (36.4-46.3) fL RDW Coeff of Jarvis 14.1 (11.5-14.5) % Plt Count 446 H (130-400) K/uL MPV 9.6 (9.4-12.4) fL Immature Gran % (Auto) 1.6 % Neut % (Auto) 78.9 % Lymph % (Auto) 8.0 % Mcdonough % (Auto) 9.6 % Eos % (Auto) 1.1 % Baso % (Auto) 0.8 % Neut # (Auto) 11.20 H (1.40-6.50) K/uL Lymph # (Auto) 1.14 L (1.2-3.4) K/uL Mcdonough # (Auto) 1.36 H (0.11-0.59) K/uL Eos # (Auto) 0.15 (0-0.50) K/uL Baso # (Auto) 0.12 (0-0.2) K/uL Immature Gran # (Auto) 0.23 H (0.01-0.20) K/uL PT 12.1 H (9.0-12.0) Seconds INR 1.1 (0.9-1.1) APTT 32.5 H (21.0-31.0) Seconds PTT Ratio 1.2 Sodium 140 (136-145) mmol/L Potassium 4.0 (3.5-5.1) mmol/L Chloride 105 (98-107) mmol/L Carbon Dioxide 26 (21-32) mmol/L Anion Gap 9 (3-11) BUN 13 (6-23) mg/dl Creatinine 0.83 (0.6-1.2) mg/dl Est Cr Clr Drug Dosing 47.0 ml/min Est GFR ( Amer) 80.5 ml/min Est GFR (Non-Af Amer) 69.5 ml/min BUN/Creatinine Ratio 15.7 (10-20) Glucose 76 (70-99(Fasting)) mg/dl Calcium 9.2 (8.6-10.3) mg/dl Magnesium 1.7 (1.7-2.4) mg/dl Troponin I High Sens 45.1 H (0-14) pg/ml Lipase 7 L (11-82) U/L SARS-CoV-2, RNA, NAAT (NEGATIVE) 11/18/22 Range/Units 14:30 WBC (4.8-10.8) K/ul RBC (4.20-5.40) M/uL Hgb (12.0-16.0) g/dl Hct (37.0-47.0) % MCV (80.0-100.0) fL MCH (25.0-34.0) pg MCHC (32.0-36.0) g/dL RDW Std Deviation (36.4-46.3) fL RDW Coeff of Jarvis (11.5-14.5) % Plt Count (130-400) K/uL MPV (9.4-12.4) fL Immature Gran % (Auto) % Neut % (Auto) % Lymph % (Auto) % Mcdonough % (Auto) % Eos % (Auto) % Baso % (Auto) % Neut # (Auto) (1.40-6.50) K/uL Lymph # (Auto) (1.2-3.4) K/uL Mcdonough # (Auto) (0.11-0.59) K/uL Eos # (Auto) (0-0.50) K/uL Baso # (Auto) (0-0.2) K/uL Immature Gran # (Auto) (0.01-0.20) K/uL PT (9.0-12.0) Seconds INR (0.9-1.1) APTT (21.0-31.0) Seconds PTT Ratio Sodium (136-145) mmol/L Potassium (3.5-5.1) mmol/L Chloride (98-107) mmol/L Carbon Dioxide (21-32) mmol/L Anion Gap (3-11) BUN (6-23) mg/dl Creatinine (0.6-1.2) mg/dl Est Cr Clr Drug Dosing ml/min Est GFR ( Amer) ml/min Est GFR (Non-Af Amer) ml/min BUN/Creatinine Ratio (10-20) Glucose (70-99(Fasting)) mg/dl Calcium (8.6-10.3) mg/dl Magnesium (1.7-2.4) mg/dl Troponin I High Sens (0-14) pg/ml Lipase (11-82) U/L SARS-CoV-2, RNA, NAAT NEGATIVE (NEGATIVE) Imaging Data Attestation: I personally reviewed and interpreted this imaging study as follows: My Impression: Chest x-ray: No significant change from the chest x-ray done in July 2022. Radiologist's Impression: Chest X-Ray 11/18/22 11:30 SINGLE VIEW CHEST CLINICAL HISTORY: Atypical chest pain FINDINGS: 2 AP, portable, upright chest radiographs are compared to study dated 07/14/2022. The heart is enlarged noting atherosclerotic calcification of the thoracic aorta. The pulmonary vasculature is noncongested. Chronic interstitial thickening is similar to previous. There is bibasilar scarring/atelectasis. The lungs and pleural spaces are otherwise clear. No pneumothorax is seen. The skeletal structures are osteopenic. Advanced arthritic change is seen in the shoulders. The bony thorax is grossly intact. Hardware is partially visualized in the lumbar spine. Surgical clips are noted in the left neck. IMPRESSION: Cardiomegaly with no active disease in the chest. ACT 112: Negative or not required by law. Electronically signed by: Geremias Avila M.D. 11/18/2022 12:52 PM Foot X-Ray 11/18/22 11:39 XR foot LT min 3V routine HISTORY: 72 years-old Female necrotic 1st 3rd 4th toes chronic soft tissue abnormality with possible osteomyelitis COMPARISON: Left ankle radiographs 10/03/2022 TECHNIQUE: 3 views of the left foot FINDINGS: Cannulated screw noted within the distal aspect of the first digit which is fractured at its midportion. Mild surrounding lucency. There is severe degeneration with incomplete bony fusion of the first DIP joint with complete bony fusion of the first MTP joint. Postoperative changes with partial resection of the distal second through fifth metatarsals. Severe osteoarthritis with areas of at least partial bony fusion throughout the midfoot and midfoot forefoot junction. Complete bony fusion of the second through fourth PIP joints. Arterial calcifications. No acute fracture, dislocation or acute osseous erosion identified. Demineralized appearance of the bones. Benign-appearing linear sclerosis of the distal tibial metaphysis. IMPRESSION: 1. No acute fracture, dislocation or acute osseous erosion identified. 2. Demineralized appearance of the bones with severe degenerative changes as above. 3. Chronic postoperative changes. Fractured cannulated screw of the first digit with suggested hardware loosening. ACT 112: Negative or not required by law. The above report was generated using voice recognition software. It may contain grammatical, syntax or spelling errors. Electronically signed by: Mars Cespedes M.D. 11/18/2022 12:53 PM ECG Data Attestation: I personally reviewed and interpreted this ECG as follows: Additional Comments: EKG #1 at 1131: Atrial fibrillation with a rate of 142. QRS and QTc intervals within normal limits. No ST elevation or ST depression. EKG #2 at 1210: Atrial fibrillation with a rate of 117. QRS and QTc intervals within normal limits. No ST elevation or ST depression. [facility] Narrative 1124: The patient was evaluated in room A9. A complete history and physical exam was performed Cardiac monitoring: An order was placed for continuous cardiac monitoring. The monitor shows a rate of 150 with atrial fibrillation rhythm interpreted by me Patient was a difficult stick and large-bore IV access had to be obtained via IV team. Cardizem 10 mg IV push was given to the patient which improved her ventricular rate. 1222: Patient tachycardic in the 120s-130s. Patient will be started on Cardizem drip. 1403: Vital signs stable on Cardizem drip. Labs are within normal limits with the exception of leukocytosis of 14.2 and troponin elevation of 45.1. Chest x- ray shows no active disease in the chest and foot x-ray shows no acute fracture dislocation or acute osseous erosion there is demineralized appearance of the bones. Patient will be admitted for atrial fibrillation RVR to the [facility] hospitalist team team will be notified. Impression & Plan Atrial fibrillation with RVR Discharge Plan Visit Data Chief Complaint: Cardiac Assessment ED Provider: Ilia Bourne Discharge Problem: Atrial fibrillation with RVR Patient Disposition: Admitted As Inpatient Discharge Instructions Interventions: ED Discharge Assessment Last Done: 11/18/22 17:22
[2022-11-18 13:31] LABS: Basophils # (auto) 0.12 K/uL (0-0.2); Basophils % (auto) 0.8 %; Eosinophils # (auto) 0.15 K/uL (0-0.50); Eosinophils % (auto) 1.1 %; Hematocrit (blood only) 35.2 % (37.0-47.0); Hemoglobin 10.9 g/dl (12.0-16.0); Immature Granulocytes # (auto) 0.23 K/uL (0.01-0.20); Immature Granulocytes % (auto) 1.6 %; Lymphocytes # (auto) 1.14 K/uL (1.2-3.4); Mean Corpuscular Hemoglobin 29.8 pg (25.0-34.0); Mean Corpuscular Volume 96.2 fL (80.0-100.0); Mean Platelet Volume 9.6 fL (9.4-12.4); Monocytes # (auto) 1.36 K/uL (0.11-0.59); Monocytes % (auto) 9.6 %; Neutrophils % (auto) 78.9 %; Platelet Count 446 K/uL (130-400); RDW Coefficient of Variation 14.1 % (11.5-14.5); RDW Standard Deviation 49.8 fL (36.4-46.3); Red Blood Count 3.66 M/uL (4.20-5.40)
[2022-11-18 13:39] LABS: BUN Creatinine Ratio 15.7 (10-20); Calcium 9.2 mg/dl (8.6-10.3); Est GFR (African American) 80.5 ml/min; Est GFR (Non-African American) 69.5 ml/min; Magnesium 1.7 mg/dl (1.7-2.4)
[2022-11-18 13:42] LABS: Troponin I High Sensitivity 45.1 pg/ml (0-14)
[2022-11-18 13:54] LABS: INR 1.1 (0.9-1.1); Partial Thromboplastin Ratio 1.2; Partial Thromboplastin Time 32.5 Seconds (21.0-31.0); Prothrombin Time 12.1 Seconds (9.0-12.0)
--- NOTE | 2022-11-18 14:10 | History & Physical Report ---
Date of Service November 18, 2022 Assessment & Plan (1) Atrial fibrillation with RVR: Plan: -Admit to the PCU on tele -Currently with HR in the 110's-120's while on dilt drip at 15 mg/hr and multiple boluses, BP is currently soft with systolics in the 90's -Unsure of the cause at this time, she has been asymptomatic so unsure how long she has been in RVR -Will continue dilt drip for now, hold amiodarone and flecainide, Cardiology consulted and will see shortly -Will give 500 mL LR STAT with 1 gm IV mag sulfate -Will hold beat blockers for now with previous hx of bradycardia -Will obtain STAT amiodarone level, currently takes every other day -Keep NPO for now until evaluated by Cardiology in case of electrical cardioversion -Continue home eliquis for DVT PPX -AM CBC, CMP, Mag, PT/INR (2) Ischemic ulcer of toe of left foot: Plan: -Ongoing issue, follows with Dr. Kelly in Vascular surgery clinic, S/P left SFA stent placement on 11/04, vacular recommended orthopedic's to evaluate for amputation of multiple toes on left foot due to previous procedures and known broken hardware in the left great toe -Patient will need to be stabilized prior to any surgical intervention -Will consult Dr. Hill of Podiatry to evaluate tomorrow -Will obtain blood cultures, procal, ESR, and CRP due to new leukocytosis with left shift and increased immature granulocytes -Will start Daptomycin after blood cultures have been obtained to cover for MRSA -Spoke with Vascular Surgery, appreciate their quick response, no need for a formal consult at this time, they will follow peripherally and are available if needed, agrees with Ortho consult (3) Elevated troponin: Plan: -Initial high sen trop elevated at 49 -Patient is asymptomatic and without acute ST segment or T-wave changes -Likely due to demand due to current RVR -Will repeat a 2 hour high sen trop STAT and continue to monitor on tele -Continue Elquis (4) RA (rheumatoid arthritis): Plan: -Has been on chronic prednisone for 40 +years and also on Plaquenil -Will continue prednisone to avoid adrenal insufficiency, hold Plaquenil for now due to possible infection (5) Hypertension: Plan: -Hold amlodipine and hydralazine to avoid hypotension while on dilt drip (6) PAD (peripheral artery disease): Plan: -Continue eliquis Plan The patient was discussed with Dr. Camp at the time of the admission History of Present Illness Chief Complaint: Tachycardia Primary Care Provider: Sylvia Nails MD Jacklyn is a 72 year old female with a PMH significant for rheumatoid arthritis (on daily prednisone and Plaquenil), paroxysmal supraventricular tachycardia, paroxysmal atrial fibrillation (on Eliquis), oral cancer S/P resection in 2013, hypertension, PAD S/P right above-knee amputation (Dr. Kelly), left ventricular hypertrophy, cervical neuropathy, and recent left SFA stent placement with Dr. Kelly on 11/04/22 who presented to the [facility] ED on 11/18 via EMS with a chief complaint of tachycardia at home. In the ED the patient was found to be in afib RVR with HR initially in the 150s, but otherwise stable. Labs were significant for a leukocytosis of 14, with left shift of 11, thrombocytosis of 446, BMP WNL. Chest xray was negative for acute findings. Xray of the left foot was read as 1. No acute fracture, dislocation or acute osseous erosion identified. 2. Demineralized appearance of the bones with severe degenerative changes as above. 3. Chronic postoperative changes. Fractured cannulated screw of the first digit with suggested hardware loosening. The patient was initially given 10 mg IV Cardizem but eventually required a Cardizem drip for rate control. Of note, the patient was previously taken off of her PO metoprolol after her last admission in July of this year due to bradycardia. She was discharged on 200 mg PO amiodarone every other day. At the time of the exam the patient was sitting in bed in no acute distress with her sitting bedside, history was obtained from both. Her checks her vitals daily, this am when he placed the pulse oximeter on her, they noted her HR to be in the 130's. The patient was asymptomatic but she remained in RVR leading them to call EMS. The patient did take her am dose of Amiodarone and Flecainide prior to ED arrival. Of note, the patient has a long history of severe PAD. She recently underwent left leg angiogram with lithotripsy, SMALL OFFSET PRINTER and stenting of the left SFA on 11/04/22. The patient was seen for FU on 11/13 and it was noted that she had significant discoloration of the left first, 3rd, and 4th toes with increased erythema and pain. Per the Vacular Surgery note at that visit they explained to the patient and her that her foot would likely continue to demarcate and she would likely need amputation of some or all the left toes. They recommenced an orthopedic referral as the patient had previous orthopedic procedures in the left food and currently has the known fractured left great toe screw. The patient and her believe that her left foot and toes continue to decline, she had a previous appointment canceled due to scheduling conflicts, it appears that they were to see [facility] this . The patient denies recent fever, chills, chest pain, SOB, dizziness, lightheadedness, abd pain, nausea, vomiting, diarrhea, dysuria, hematuria, melena, and recent trauma. She is a full code and would want her to make medical decisions for her if she cannot make them herself. Please refer to Dr. Camp's attestation for any changes to the treatment plan Allergies Allergy/AdvReac Type Severity Reaction Status Date / Time dalbavancin Allergy Severe hypotension, Verified 11/14/22 13:09 flushing, tachypnea Home Medications Medication Instructions Recorded Confirmed Type lactobacillus combination no.4 3 3,000 mmu cells PO QAM 03/30/18 11/18/22 History billion cell capsule (Probiotic) cranberry 500 mg capsule 500 mg PO QPM 09/29/18 11/18/22 History calcium carbonate 600 mg-vitamin 1 cap PO BID 07/16/20 11/18/22 History D3 5 mcg (200 unit) capsule (Calcium 600 + D(3)) sennosides 8.6 mg tablet (senna) 8.6 mg PO DAILY PRN Constipation 02/28/21 11/18/22 History meclizine 25 mg tablet 25 mg PO BID PRN dizziness #20 tabs 07/26/21 11/18/22 Rx duloxetine 30 mg capsule,delayed 30 mg PO DAILY #90 caps 12/30/21 11/18/22 Rx release calcitriol 0.5 mcg capsule 0.5 mcg PO 2XWK #30 caps 03/05/22 11/18/22 Rx (Rocaltrol) apixaban 5 mg tablet (Eliquis) 5 mg PO BID #180 tabs 05/19/22 11/18/22 Rx omeprazole 20 mg capsule,delayed 20 mg PO BID #180 caps 05/27/22 11/18/22 Rx release prednisone 1 mg tablet 1 mg PO QPM #90 tabs 06/10/22 11/18/22 Rx prednisone 5 mg tablet 5 mg PO QAM #90 tabs 06/10/22 11/18/22 Rx gabapentin 300 mg capsule 300 mg PO TID 90 days #270 caps 07/01/22 11/18/22 Rx amlodipine 5 mg tablet 5 mg PO DAILY #90 tabs 07/21/22 11/18/22 Rx ferrous sulfate 325 mg (65 mg 325 mg PO QAM #90 tabs 08/01/22 11/18/22 Rx iron) tablet oxybutynin chloride 15 mg 15 mg PO DAILY #90 tabs 09/01/22 11/18/22 Rx tablet,extended release 24 hr leflunomide 20 mg tablet (Arava) 20 mg PO QAM #90 tabs 09/03/22 11/18/22 Rx amiodarone 200 mg tablet 200 mg PO Q2D #90 tabs 09/09/22 11/18/22 Rx hydroxychloroquine 200 mg tablet 200 mg PO DAILY #90 tabs 10/16/22 11/18/22 Rx (Plaquenil) hydrocodone 10 mg-acetaminophen 1 tab PO BID PRN pain #60 tabs 11/05/22 11/18/22 Rx 325 mg tablet hydralazine 25 mg tablet 25 mg PO TID #270 tabs 11/11/22 11/18/22 Rx Past Med/Surg History Medical History Acute bronchitis Acute respiratory failure with hypoxia Chronic back pain Chronic steroid use Closed fracture of coccyx Constipation due to opioid therapy DDD (degenerative disc disease) GI bleed HOSPITALIZED 02/24/22 AT [place] (ELIQUIS ON HOLD) Hip dislocation, left RECENT DX (CAN LAY ON LEFT SIDE ONLY) History of coronary angiogram Right Lower Extremity Arteriogram, Percutaneous Transluminal Angioplasty and Stenting of Right Superficial Femoral Artery History of COVID-19 hospitalized 07/16/20 [facility]. hypoxia, fever, cough, chills, loss of taste/smell. RESOLVED History of Hodgkin's lymphoma 2004/under surveillance by PCP/Dr. Thibodeaux- S/p chemo in 2003- none since History of oral cancer s/p tongue excision left side (no chemo/no XRT 2013) No issues since Hypertension Hypomagnesemia Junctional bradycardia Overactive bladder PAD (peripheral artery disease) PAF (paroxysmal atrial fibrillation) hx - on Eliquis Paroxysmal SVT (supraventricular tachycardia) hx (follows with Dr. Vance) Peripheral arterial disease RA (rheumatoid arthritis) on chronic steroid Skin benign neoplasm Surgical History H/O foot surgery TOES X MULTIPLE H/O parathyroidectomy History of above knee amputation RT>NO PROSTHETIC (USING W/C) History of biopsy Of soft tissue of the neck History of breast surgery Puncture aspiration of cyst History of carpal tunnel release RIGHT History of cataract surgery both eye one on 09/08/22 and the other 09/23/22 History of colonoscopy History of colposcopy with cervical biopsy with endocervical curettage History of glossectomy with unilateral radical neck dissection History of hip surgery R/L REVISION Left MAURO revision: 11/09/18: SABx1 at L3-L4 at [facility] MULTIPLE HIP SURGERIES History of right above knee amputation (11/14/21) Right Above Knee Amputation(Right) - Manuel Baeza MD, FACS History of spinal surgery 10/02/[address] [facility] [address]. Sanford>LUMBAR AREA History of total hip arthroplasty R/L History of total knee replacement R/L History of tubal ligation Hx of hand surgery RIGHT Hx of knee surgery MULTIPLE SURGERIES ON RT LEG Right TKA revision, I&D, antibiotic spacer: 12/29/19: SAB + PNB at [facility] PONV (postoperative nausea and vomiting) S/P revision of total knee 12/29/19 Dr. Ihsan Vela- Right total knee revision, Incision and drainage with antibiotic cement spacer Family History Mother Breast cancer Colorectal cancer Cancer Gastric cancer Aunt Colorectal cancer Other Family history non-contributory No family history of adverse response to anesthesia Denies family history of Ovarian cancer Prostate cancer Myocardial infarction Social History Smoking Status: Never smoker Second Hand Exposure: No; Do You Dip or Chew Tobacco: No; Hx Alcohol Use: No Hx Substance Use: No Preferred Language: French Communication Ability: Effective Visual Impairment: No Limitations 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: Normal Digital Advisor Required: No Beliefs That Will Affect Care: None marital status: Current Living Situation: Spouse current occupational status: retired How many Children do You have: 1 Other Information That Helps Us Care for You: No Feels Safe at Home: Yes Safety Concerns: Feels Safe At This Time Childhood Exposure to Second-Hand Smoke: Yes Diet: regular caffeine: Yes Dental Care, Regularly: Yes Physical Activity Frequency: Other Physical Activity Frequency Comment: Limited by a physical condition Seatbelt Use: always Sunscreen Use: Yes Assistive Devices: Prosthesis, Walker and Wheelchair Physical Exam Physical Exam: Physical Exam: General: In no acute distress, stated age, chronically ill appearing HEENT: Normocephalic, atraumatic, no scleral icterus, pupils around round, symmetrical, and reactive to light, known left tongue calcium collection S/P cancer resection from 2013, moist mucus membranes, trachea midline, no thyromegaly Chest/Pulm: No respiratory distress, symmetrical chest expansion, clear breath sounds throughout Cardiac: irregular rate and rhythm, no murmurs noted Abdomen: Negative for ascites and bruising, normoactive bowel sounds, soft, non-tender to palpation throughout Musculoskeletal: S/P right BKA, LLE with erythema and swelling on the dorsal aspect of the left foot, left first, 3rd, and 4th toes are discolored/black, tender to palpation Extremities: Intact left PT pulse with faint left DP pulse Skin: As described above Neuro: Alert and oriented to person, place, month, year, and president, no focal defects, CN II-XII tested and intact, no tremors noted Psych: No acute distress, calm and cooperative during the exam Results & Data Results & Data Vital Signs (Past 12 Hours) Vital Signs Temp Pulse Pulse Resp BP BP Pulse Ox 11/18/22 13:09 115 H 20 128/71 95 11/18/22 11:57 128 H 11/18/22 11:52 11/18/22 11:52 36.5 C 150 H 20 116/86 97 O2 Del Method 11/18/22 13:09 Room Air 11/18/22 11:57 11/18/22 11:52 Room Air 11/18/22 11:52 Room Air Laboratory Results Abnormal lab results 11/18/22 11/18/22 11/18/22 Range/Units 12:54 12:54 12:54 WBC 14.20 H (4.8-10.8) K/ul RBC 3.66 L (4.20-5.40) M/uL Hgb 10.9 L (12.0-16.0) g/dl Hct 35.2 L (37.0-47.0) % MCHC 31.0 L (32.0-36.0) g/dL RDW Std Deviation 49.8 H (36.4-46.3) fL Plt Count 446 H (130-400) K/uL Neut # (Auto) 11.20 H (1.40-6.50) K/uL Lymph # (Auto) 1.14 L (1.2-3.4) K/uL [place] # (Auto) 1.36 H (0.11-0.59) K/uL Immature Gran # (Auto) 0.23 H (0.01-0.20) K/uL PT 12.1 H (9.0-12.0) Seconds APTT 32.5 H (21.0-31.0) Seconds Troponin I High Sens 45.1 H (0-14) pg/ml Lipase 7 L (11-82) U/L Diagnostic Findings Chest X-Ray 11/18/22 11:30 SINGLE VIEW CHEST CLINICAL HISTORY: Atypical chest pain FINDINGS: 2 AP, portable, upright chest radiographs are compared to study dated 07/14/2022. The heart is enlarged noting atherosclerotic calcification of the thoracic aorta. The pulmonary vasculature is noncongested. Chronic interstitial thickening is similar to previous. There is bibasilar scarring/atelectasis. The lungs and pleural spaces are otherwise clear. No pneumothorax is seen. The skeletal structures are osteopenic. Advanced arthritic change is seen in the shoulders. The bony thorax is grossly intact. Hardware is partially visualized in the lumbar spine. Surgical clips are noted in the left neck. IMPRESSION: Cardiomegaly with no active disease in the chest. ACT 112: Negative or not required by law. Electronically signed by: Geremias Avila M.D. 11/18/2022 12:52 PM Foot X-Ray 11/18/22 11:39 XR foot LT min 3V routine HISTORY: 72 years-old Female necrotic 1st 3rd 4th toes chronic soft tissue abnormality with possible osteomyelitis COMPARISON: Left ankle radiographs 10/03/2022 TECHNIQUE: 3 views of the left foot FINDINGS: Cannulated screw noted within the distal aspect of the first digit which is fractured at its midportion. Mild surrounding lucency. There is severe degeneration with incomplete bony fusion of the first DIP joint with complete bony fusion of the first MTP joint. Postoperative changes with partial resection of the distal second through fifth metatarsals. Severe osteoarthritis with areas of at least partial bony fusion throughout the midfoot and midfoot forefoot junction. Complete bony fusion of the second through fourth PIP joints. Arterial calcifications. No acute fracture, dislocation or acute osseous erosion iden tified. Demineralized appearance of the bones. Benign-appearing linear sclerosis of the distal tibial metaphysis. IMPRESSION: 1. No acute fracture, dislocation or acute osseous erosion identified. 2. Demineralized appearance of the bones with severe degenerative changes as above. 3. Chronic postoperative changes. Fractured cannulated screw of the first digit with suggested hardware loosening. ACT 112: Negative or not required by law. The above report was generated using voice recognition software. It may contain grammatical, syntax or spelling errors. Electronically signed by: Mars Cespedes M.D. 11/18/2022 12:53 PM ECG Additional Comments: Atrial fibrillation with rapid ventricular response Septal infarct , age undetermined Abnormal ECG When compared with ECG of 16-JUL-2022 05:47, Atrial fibrillation has replaced Sinus rhythm Vent. rate has increased BY 78 BPM Code Status & VTE Plan Code Status Full code VTE Prophylaxis Plan VTE Prophylaxis will be ordered: Yes Supervising Physician Co-Signing Physician Notes Patient seen and examined, chart reviewed, case discussed with Bird Estrella PA-C and I agree with the assessment and plan as above except as otherwise noted Labs and images reviewed 72-year-old female with past history of vasculopathy, A-fib on amiodarone with poor tolerance to prior beta-blockers and bradycardia while in sinus, Preior BKA, known LLE PAD, L sfa stent 11/04/22 seen for followup 11/13/22. Recommended for specialist followup for toe amputation. She presents with return into A-fib with RVR [id number]. She is not normally in A-fib, is generally maintained in sinus using amiodarone. She reports that she is anticoagulated, has not been cardioverted in the past. This was discussed at 1 outpatient office visit, but she converted that evening with conservative medical management. Last echo 07/15/22: EF 60-65%, LVSF normal, LV wall motion normal. RVSP 40-55mg. Admit EKG: afib, RVR 142. QTc 378. Last EKG was sinus. Amio 200mg QoD and flecanide daily for afib, typically rate controlled Metoprolol was stopped for junctional bradycardia previously Tachy to 130s today on pulseox which was reason for presentation [facility] [place] [facility] [place] revision have been pushed due to scheudling issues as outpatient Cardizem drip --> low 100s Asymptomatic RA --> On plaquenil, hold this for possible cellulitis New leukocytosis 14.2 w/ immature granulocyte fraction increased Trop 45.1, last 94.6. Trend pending likely demand with rvr Anticoagulated on eliquis with which she is compliant. LLE: PT pulse is intact to palpation. Dorsal erythema with L hallux necrotic ?dry gangrene. XR --> prior screw in hallux fractured She is seen at bedside, reports she does not feel her A-fib but feels okay at bedside. She is clinically dry appearing with dry/cracked mucous membranes, BP 100/60s at time of assessment, heart rate fluctuating 1001 40s. Denies fever/chills/sweats. She is on a Dilt drip at a rate of 5 at time of assessment. Suspect that her hypotensive response is compounded by volume depletion, patient significantly improving on reassessment following small fluid bolus and clears. Defer aggressive therapy at this time as she is hemodynamically stable on reassessment. Patient has converted in the past with conservative measures. Patient has had significant bradycardia and conversion to junctional rhythm with aggressive use of beta-sandro/CCB in the past, would not be overly aggressive in this approach and will defer Amio rebolus at this time. If patient has not converted would likely benefit from electrocardioversion for sinus; did discuss with cards and ultimately should have definitive therapy of her left lower extremity? Cellulitis and necrotic toe however she is not stable enough to undergo surgery at this time with her A- fib RVR agree with assessment and management as above PG Care Time/CCT Total # of Minutes Spent Total Time Spent with Patient: Total time spent is greater than 50% in coordination of care (as documented) at patient's floor/unit and/or counseling patient: Coding [place] [address] INT INP/OBS CARE 3/75MIN Patient Type Established Medical Decision Making High Complexity Diagnoses Atrial fibrillation with RVR I48.91 Ischemic ulcer of toe of left foot L97.529 Elevated troponin R77.8 RA (rheumatoid arthritis) M06.9 Hypertension I10 Hypertension type: primary hypertension PAD (peripheral artery disease) I73.9 (5) Hypertension Hypertension type: primary hypertension Qualified Code(s): I10 - Essential (primary) hypertension
[2022-11-18] MEDS ORDERED: LACTATED RINGER'S 500 ML IV ONE (15:05)
[2022-11-18] MEDS ORDERED: MAGNESIUM SULFATE / D5W 1 GM/100 ML BAG IV ONE (15:15)
[2022-11-18 15:34] LABS: C Reactive Protein 8.54 mg/dl (0-0.5)
[2022-11-18 15:41] LABS: Troponin I High Sensitivity 46.1 pg/ml (0-14)
[2022-11-18] MEDS ORDERED: DAPTOmycin 200 MG in SYRINGE 0 ML IV SCH (16:00)
[2022-11-18] MEDS: ACETAMINOPHEN 325 MG TAB PO SCH (18:12)
--- NOTE | 2022-11-18 18:56 | Cardiology Consultation ---
Date of Consultation November 18, 2022 Assessment & Plan (1) Atrial fibrillation with RVR: (2) PAD (peripheral artery disease): Plan 1. Atrial fibrillation: She has a history of atrial fibrillation. In the past she has also been noted to have a junctional bradycardia on more aggressive rhythm control. Medications were reduced at the time of her hospitalization in July. While she does not appear to be overtly symptomatic from the arrhythmia, her ventricular rates continue to be high. She would likely benefit from more aggressive rate control. A better solution for her arrhythmia would be implantation of a pacemaker and either continued amiodarone at a higher dose or discontinuation of amiodarone in favor of increased beta-blockade. Her case is complicated by the presence of what appears to be wet gangrene of the left foot. Implanting a pacemaker in the setting of infection is relatively contraindicated. There may be some technical challenges as well as the left subclavian system is likely compromised from previous implantation of an infusion port. Do not think there is any urgent need for more aggressive rate control. It is possible that she will convert back to sinus on her own. I would probably discontinue her oral anticoagulation in favor of intravenous heparin while we await some determination on her need for operative intervention for placement of a pacemaker. 2. Peripheral vascular disease: She has a prior right above-knee amputation. She did undergo percutaneous revascularization involving the left leg. By report she has good perfusion of the foot. However, she does appear to have gangrene of several toes. Whether this represents wet gangrene is unclear. She was scheduled to be evaluated by an orthopedic digital advertising specialist, but this appointment appears to have been postponed or canceled. He would seem reasonable to have an inpatient evaluation to see if there is an active infection as this would affect our ability to implant a permanent pacemaker. 3. Valvular heart disease: Mild aortic and mitral regurgitation. Also moderate to severe tricuspid regurgitation with an element of pulmonary hypertension. History of Present Illness Reason for Consultation: Atrial fibrillation Requesting Physician: Zoë Attending Physician: Lorenzo Camp MD History of Present Illness The patient is a 72-year-old woman with a history of peripheral vascular disease, coronary artery disease and paroxysmal atrial fibrillation who presented to the emergency room today for tachycardia. It seems the patient was in her usual state of health. She and her checked her vital signs routinely on a daily basis. This morning they noticed that her heart rate was elevated. She was otherwise feeling fine. She denied any sense of palpitation or associated chest pain. No significant breathing difficulty. She seems to have been less ambulatory recently due to concerns over her foot. However, she is generally ambulatory with a prosthesis. She did not report any new limitations. No other constitutional symptoms such as fevers or chills. In the emergency room she was discovered to have atrial fibrillation and a high ventricular rate. She was placed on a diltiazem infusion. Blood pressures have been on the lower side. She continues to feel well at the time of this interview. Again, unaware of any palpitations, dizziness, chest pain or breathing difficulty. Allergies Allergy/AdvReac Type Severity Reaction Status Date / Time dalbavancin Allergy Severe hypotension, Verified 11/14/22 13:09 flushing, tachypnea Home Medications Medication Instructions Recorded Confirmed Type lactobacillus combination no.4 3 3,000 mmu cells PO QAM 03/30/18 11/18/22 H istory billion cell capsule (Probiotic) cranberry 500 mg capsule 500 mg PO QPM 09/29/18 11/18/22 History calcium carbonate 600 mg-vitamin 1 cap PO BID 07/16/20 11/18/22 History D3 5 mcg (200 unit) capsule (Calcium 600 + D(3)) sennosides 8.6 mg tablet (senna) 8.6 mg PO DAILY PRN Constipation 02/28/21 11/18/22 History meclizine 25 mg tablet 25 mg PO BID PRN dizziness #20 tabs 07/26/21 11/18/22 Rx duloxetine 30 mg capsule,delayed 30 mg PO DAILY #90 caps 12/30/21 11/18/22 Rx release calcitriol 0.5 mcg capsule 0.5 mcg PO 2XWK #30 caps 03/05/22 11/18/22 Rx (Rocaltrol) apixaban 5 mg tablet (Eliquis) 5 mg PO BID #180 tabs 05/19/22 11/18/22 Rx omeprazole 20 mg capsule,delayed 20 mg PO BID #180 caps 05/27/22 11/18/22 Rx release prednisone 1 mg tablet 1 mg PO QPM #90 tabs 06/10/22 11/18/22 Rx prednisone 5 mg tablet 5 mg PO QAM #90 tabs 06/10/22 11/18/22 Rx gabapentin 300 mg capsule 300 mg PO TID 90 days #270 caps 07/01/22 11/18/22 Rx amlodipine 5 mg tablet 5 mg PO DAILY #90 tabs 07/21/22 11/18/22 Rx ferrous sulfate 325 mg (65 mg 325 mg PO QAM #90 tabs 08/01/22 11/18/22 Rx iron) tablet oxybutynin chloride 15 mg 15 mg PO DAILY #90 tabs 09/01/22 11/18/22 Rx tablet,extended release 24 hr leflunomide 20 mg tablet (Arava) 20 mg PO QAM #90 tabs 09/03/22 11/18/22 Rx amiodarone 200 mg tablet 200 mg PO Q2D #90 tabs 09/09/22 11/18/22 Rx hydroxychloroquine 200 mg tablet 200 mg PO DAILY #90 tabs 10/16/22 11/18/22 Rx (Plaquenil) hydrocodone 10 mg-acetaminophen 1 tab PO BID PRN pain #60 tabs 11/05/22 11/18/22 Rx 325 mg tablet hydralazine 25 mg tablet 25 mg PO TID #270 tabs 11/11/22 11/18/22 Rx Patient History Medical History Acute bronchitis Acute respiratory failure with hypoxia Chronic back pain Chronic steroid use Closed fracture of coccyx Constipation due to opioid therapy DDD (degenerative disc disease) GI bleed HOSPITALIZED 02/24/22 AT [facility] (ELIQUIS ON HOLD) Hip dislocation, left RECENT DX (CAN LAY ON LEFT SIDE ONLY) History of coronary angiogram Right Lower Extremity Arteriogram, Percutaneous Transluminal Angioplasty and Stenting of Right Superficial Femoral Artery History of COVID-19 hospitalized 07/16/20 [facility]. hypoxia, fever, cough, chills, loss of taste/smell. RESOLVED History of Hodgkin's lymphoma 2003/under surveillance by PCP/Dr. Thibodeaux- S/p chemo in 2003- none since History of oral cancer s/p tongue excision left side (no chemo/no XRT 2013) No issues since Hypertension Hypomagnesemia Junctional bradycardia Overactive bladder PAD (peripheral artery disease) PAF (paroxysmal atrial fibrillation) hx - on Eliquis Paroxysmal SVT (supraventricular tachycardia) hx (follows with Dr. Vance) Peripheral arterial disease RA (rheumatoid arthritis) on chronic steroid Skin benign neoplasm Surgical History H/O foot surgery TOES X MULTIPLE H/O parathyroidectomy History of above knee amputation RT>NO PROSTHETIC (USING W/C) History of biopsy Of soft tissue of the neck History of breast surgery Puncture aspiration of cyst History of carpal tunnel release RIGHT History of cataract surgery both eye one on 09/08/22 and the other 09/23/22 History of colonoscopy History of colposcopy with cervical biopsy with endocervical curettage History of glossectomy with unilateral radical neck dissection History of hip surgery R/L REVISION Left MAURO revision: 11/09/18: SABx1 at L3-L4 at [facility] MULTIPLE HIP SURGERIES History of right above knee amputation (11/14/21) Right Above Knee Amputation(Right) - Manuel Baeza MD, FACS History of spinal surgery 10/02/[address] [facility] [address]. Sanford>LUMBAR AREA History of total hip arthroplasty R/L History of total knee replacement R/L History of tubal ligation Hx of hand surgery RIGHT Hx of knee surgery MULTIPLE SURGERIES ON RT LEG Right TKA revision, I&D, antibiotic spacer: 12/29/19: SAB + PNB at [facility] PONV (postoperative nausea and vomiting) S/P revision of total knee 12/29/19 Dr. Ihsan Vela- Right total knee revision, Incision and drainage with antibiotic cement spacer Family History Mother Breast cancer Colorectal cancer Cancer Gastric cancer Aunt Colorectal cancer Other Family history non-contributory No family history of adverse response to anesthesia Denies family history of Ovarian cancer Prostate cancer Myocardial infarction Social History Smoking Status: Never smoker Second Hand Exposure: No; Do You Dip or Chew Tobacco: No; Hx Alcohol Use: No Hx Substance Use: No Preferred Language: Croatian Communication Ability: Effective Visual Impairment: No Limitations 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: Normal 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 Beliefs That Will Affect Care: None marital status: Current Living Situation: Spouse current occupational status: retired How many Children do You have: 1 Other Information That Helps Us Care for You: No Feels Safe at Home: Yes Safety Concerns: Feels Safe At This Time Childhood Exposure to Second-Hand Smoke: Yes Diet: regular caffeine: Yes Dental Care, Regularly: Yes Physical Activity Frequency: Other Physical Activity Frequency Comment: Limited by a physical condition Seatbelt Use: always Sunscreen Use: Yes Assistive Devices: Prosthesis, Walker and Wheelchair Review of Systems Review of Systems: Per HPI. Pain in the left foot. This waxes and wanes in severity. Physical Exam Physical Exam: She is alert and oriented x3. Mood affect appear normal. She answered all questions appropriately. HEENT: Sclerae are anicteric. Pupils are equal and reactive to light and accommodation. Extraocular movements were intact. Neuro: Cranial nerves intact Lungs: Lungs are clear to auscultation bilaterally. There are no rales wheezes or rhonchi. She has normal respiratory effort without use of accessory muscles. There is normal pulmonary excursion. Cardiac: The rhythm was irregular. S1 and S2 were normal. There are no murmurs on examination. The PMI was not markedly displaced on palpation. Extremities: There is a right above-knee amputation. The left foot has gangrenous toes and is erythematous from the midfoot to the toes. Skin: There are no rashes noted on examination today. Results & Data Vital Signs (Past 12 Hours) Vital Signs Temp Pulse Pulse Resp BP BP Pulse Ox 11/18/22 17:48 36.8 C 111 H 18 127/68 96 11/18/22 17:15 123 H 25 H 111/64 93 11/18/22 17:10 110 H 21 102/83 96 11/18/22 17:05 116 H 20 127/67 95 11/18/22 17:01 109 H 16 100/82 91 11/18/22 16:50 102 H 28 H 109/74 96 11/18/22 16:45 113 H 22 108/75 96 11/18/22 16:40 106 H 12 102/66 94 11/18/22 16:35 110 H 25 H 114/78 96 11/18/22 16:30 113 H 24 118/77 97 11/18/22 16:25 119 H 19 99/65 L 95 11/18/22 16:20 115 H 17 124/77 93 11/18/22 16:15 132 H 16 126/73 93 11/18/22 16:10 108 H 18 126/66 94 11/18/22 16:00 116 H 26 H 120/73 92 11/18/22 15:55 96 H 12 119/83 96 11/18/22 15:50 111 H 22 121/64 97 11/18/22 15:45 128 H 16 104/60 95 11/18/22 15:40 106 H 15 100/79 93 11/18/22 15:35 126 H 22 104/63 93 11/18/22 15:25 104 H 16 115/66 95 11/18/22 15:20 115 H 23 112/61 95 11/18/22 15:15 115 H 16 119/76 96 11/18/22 15:10 120 H 19 116/65 96 11/18/22 16:19 109 H 11/18/22 14:55 120 H 22 109/68 96 11/18/22 14:50 125 H 26 H 106/73 95 11/18/22 14:45 110 H 27 H 113/70 95 11/18/22 14:30 130 H 24 93 11/18/22 14:30 92/68 L 11/18/22 14:25 123 H 23 95 11/18/22 14:25 120/63 11/18/22 14:20 106/64 11/18/22 14:20 128 H 24 94 11/18/22 14:15 113 H 20 95 11/18/22 14:15 120/67 11/18/22 14:10 125 H 22 97 11/18/22 14:10 105/65 11/18/22 14:05 114/58 L 11/18/22 14:05 129 H 20 95 11/18/22 14:05 114/58 L 11/18/22 14:00 116 H 24 94 11/18/22 14:00 118/62 11/18/22 13:55 118 H 18 94 11/18/22 13:55 103/63 11/18/22 13:50 126/77 11/18/22 13:50 109 H 21 92 11/18/22 13:45 83/66 L 11/18/22 13:45 114 H 24 94 11/18/22 13:40 102/86 11/18/22 13:40 124 H 20 90 11/18/22 13:35 127 H 25 H 94 11/18/22 13:35 111/62 11/18/22 13:30 120 H 24 93 11/18/22 13:30 105/85 11/18/22 13:25 119 H 28 H 91 11/18/22 13:25 116/73 11/18/22 13:20 128 H 28 H 92 11/18/22 13:20 121/67 11/18/22 13:15 119 H 28 H 93 11/18/22 13:15 116/68 11/18/22 13:10 130 H 19 93 11/18/22 13:10 118/74 11/18/22 13:05 122 H 31 H 90 11/18/22 13:05 128/71 11/18/22 13:00 129 H 26 H 92 11/18/22 13:00 112/72 11/18/22 12:55 133 H 22 94 11/18/22 12:55 103/71 11/18/22 12:45 120/90 11/18/22 12:45 133 H 19 94 11/18/22 12:40 117 H 24 94 11/18/22 12:40 112/76 11/18/22 12:35 111 H 19 94 11/18/22 12:35 98/74 L 11/18/22 12:30 113 H 23 11/18/22 12:30 113/67 11/18/22 12:26 129 H 27 H 11/18/22 13:09 115 H 20 128/71 95 11/18/22 11:57 128 H 11/18/22 11:52 11/18/22 11:52 36.5 C 150 H 20 116/86 97 O2 Del Method 11/18/22 17:48 Room Air 11/18/22 17:15 Room Air 11/18/22 17:10 Room Air 11/18/22 17:05 Room Air 11/18/22 17:01 Room Air 11/18/22 16:50 Room Air 11/18/22 16:45 Room Air 11/18/22 16:40 Room Air 11/18/22 16:35 Room Air 11/18/22 16:30 Room Air 11/18/22 16:25 Room Air 11/18/22 16:20 Room Air 11/18/22 16:15 Room Air 11/18/22 16:10 Room Air 11/18/22 16:00 Room Air 11/18/22 15:55 Room Air 05/16/23 15:50 Room Air 11/18/22 15:45 Room Air 11/18/22 15:40 Room Air 11/18/22 15:35 Room Air 11/18/22 15:25 Room Air 11/18/22 15:20 Room Air 11/18/22 15:15 Room Air 11/18/22 15:10 Room Air 11/18/22 16:19 11/18/22 14:55 Room Air 11/18/22 14:50 Room Air 11/18/22 14:45 Room Air 11/18/22 14:30 11/18/22 14:30 11/18/22 14:25 11/18/22 14:25 11/18/22 14:20 11/18/22 14:20 11/18/22 14:15 11/18/22 14:15 11/18/22 14:10 11/18/22 14:10 11/18/22 14:05 11/18/22 14:05 11/18/22 14:05 11/18/22 14:00 11/18/22 14:00 11/18/22 13:55 11/18/22 13:55 11/18/22 13:50 11/18/22 13:50 11/18/22 13:45 11/18/22 13:45 11/18/22 13:40 11/18/22 13:40 11/18/22 13:35 11/18/22 13:35 11/18/22 13:30 11/18/22 13:30 11/18/22 13:25 11/18/22 13:25 11/18/22 13:20 11/18/22 13:20 11/18/22 13:15 11/18/22 13:15 11/18/22 13:10 11/18/22 13:10 11/18/22 13:05 11/18/22 13:05 11/18/22 13:00 11/18/22 13:00 11/18/22 12:55 11/18/22 12:55 11/18/22 12:45 11/18/22 12:45 11/18/22 12:40 11/18/22 12:40 11/18/22 12:35 11/18/22 12:35 11/18/22 12:30 11/18/22 12:30 11/18/22 12:26 11/18/22 13:09 Room Air 11/18/22 11:57 11/18/22 11:52 Room Air 11/18/22 11:52 Room Air Laboratory Results Abnormal Lab Results 11/18/22 11/18/22 11/18/22 12:54 12:54 12:54 WBC 14.20 H RBC 3.66 L Hgb 10.9 L Hct 35.2 L MCV 96.2 MCH 29.8 MCHC 31.0 L RDW Std Deviation 49.8 H RDW Coeff of Jarvis 14.1 Plt Count 446 H MPV 9.6 Immature Gran % (Auto) 1.6 Neut % (Auto) 78.9 Lymph % (Auto) 8.0 Carroll % (Auto) 9.6 Eos % (Auto) 1.1 Baso % (Auto) 0.8 Neut # (Auto) 11.20 H Lymph # (Auto) 1.14 L Carroll # (Auto) 1.36 H Eos # (Auto) 0.15 Baso # (Auto) 0.12 Immature Gran # (Auto) 0.23 H ESR PT 12.1 H INR 1.1 APTT 32.5 H PTT Ratio 1.2 Sodium 140 Potassium 4.0 Chloride 105 Carbon Dioxide 26 Anion Gap 9 BUN 13 Creatinine 0.83 Est Cr Clr Drug Dosing 47.0 Est GFR ( Amer) 80.5 Est GFR (Non-Af Amer) 69.5 BUN/Creatinine Ratio 15.7 Glucose 76 Calcium 9.2 Magnesium 1.7 Troponin I High Sens 45.1 H C-Reactive Protein Lipase 7 L Procalcitonin SARS-CoV-2, RNA, NAAT 11/18/22 11/18/22 11/18/22 14:30 14:57 14:57 WBC RBC Hgb Hct MCV MCH MCHC RDW Std Deviation RDW Coeff of Jarvis Plt Count MPV Immature Gran % (Auto) Neut % (Auto) Lymph % (Auto) Carroll % (Auto) Eos % (Auto) Baso % (Auto) Neut # (Auto) Lymph # (Auto) Carroll # (Auto) Eos # (Auto) Baso # (Auto) Immature Gran # (Auto) ESR 67 H PT INR APTT PTT Ratio Sodium Potassium Chloride Carbon Dioxide Anion Gap BUN Creatinine Est Cr Clr Drug Dosing Est GFR ( Amer) Est GFR (Non-Af Amer) BUN/Creatinine Ratio Glucose Calcium Magnesium Troponin I High Sens 46.1 H C-Reactive Protein 8.54 H Lipase Procalcitonin SARS-CoV-2, RNA, NAAT NEGATIVE 11/18/22 14:57 WBC RBC Hgb Hct MCV MCH MCHC RDW Std Deviation RDW Coeff of Jarvis Plt Count MPV Immature Gran % (Auto) Neut % (Auto) Lymph % (Auto) Carroll % (Auto) Eos % (Auto) Baso % (Auto) Neut # (Auto) Lymph # (Auto) Carroll # (Auto) Eos # (Auto) Baso # (Auto) Immature Gran # (Auto) ESR PT INR APTT PTT Ratio Sodium Potassium Chloride Carbon Dioxide Anion Gap BUN Creatinine Est Cr Clr Drug Dosing Est GFR ( Amer) Est GFR (Non-Af Amer) BUN/Creatinine Ratio Glucose Calcium Magnesium Troponin I High Sens C-Reactive Protein Lipase Procalcitonin 0.14 SARS-CoV-2, RNA, NAAT Diagnostic Findings Echocardiogram obtained July 2022: Preserved LV systolic function with eje ction fraction 65%. Left ventricular hypertrophy. Mild mitral and aortic regurgitation. Elevated pulmonary systolic pressures. Moderate to severe tricuspid regurgitation. PG Care Time/CCT Total # of Minutes Spent Total Time Spent with Patient: Total time spent is greater than 50% in coordination of care (as documented) at patient's floor/unit and/or counseling patient: Coding Level of Care Code 63216 INT INP/OBS CARE 3/75MIN Diagnoses Atrial fibrillation with RVR I48.91 PAD (peripheral artery disease) I73.9
--- NOTE | 2022-11-18 20:25 | Electrocardiogram Report ---
Test Reason : Blood Pressure : / mmHG Vent. Rate : 142 BPM Atrial Rate : 000 BPM P-R Int : 000 ms QRS Dur : 080 ms QT Int : 246 ms P-R-T Axes : 000 062 -82 degrees QTc Int : 378 ms Atrial fibrillation with rapid ventricular response Abnormal ECG When compared with ECG of 16-JUL-2022 05:47, Atrial fibrillation has replaced Sinus rhythm Vent. rate has increased BY 78 BPM Confirmed by Davi Camacho ([id number]) on 11/18/2022 8:25:32 PM Referred By: Confirmed By:Connor Camacho
[2022-11-18] MEDS: APIXABAN 5 MG TABLET PO SCH (21:13)
[2022-11-18] MEDS: PANTOprazole 40 MG TAB PO SCH (21:14)
[2022-11-18] MEDS: predniSONE 1 MG TAB PO SCH (21:14)
[2022-11-18] MEDS: GABAPENTIN 300 MG CAP PO SCH (21:14)
[2022-11-19] MEDS: ACETAMINOPHEN 325 MG TAB PO SCH ×5 (06:37→23:54)
[2022-11-19 06:55] LABS: Basophils # (auto) 0.11 K/uL (0-0.2); Eosinophils # (auto) 0.22 K/uL (0-0.50); Hematocrit (blood only) 30.6 % (37.0-47.0); Hemoglobin 9.8 g/dl (12.0-16.0); Immature Granulocytes # (auto) 0.19 K/uL (0.01-0.20); Immature Granulocytes % (auto) 1.7 %; Lymphocytes # (auto) 2.39 K/uL (1.2-3.4); Lymphocytes % (auto) 21.6 %; Mean Corpuscular Hemoglobin 30.1 pg (25.0-34.0); Mean Corpuscular Volume 93.9 fL (80.0-100.0); Mean Platelet Volume 9.4 fL (9.4-12.4); Neutrophils # (auto) 7.14 K/uL (1.40-6.50); Neutrophils % (auto) 64.7 %; Platelet Count 405 K/uL (130-400); RDW Coefficient of Variation 14.1 % (11.5-14.5); RDW Standard Deviation 47.7 fL (36.4-46.3); Red Blood Count 3.26 M/uL (4.20-5.40); White Blood Count 11.05 K/ul (4.8-10.8)
[2022-11-19 07:07] LABS: Albumin Globulin Ratio 1.1 (0.9-2); Albumin Level 2.8 gm/dl (3.4-5.0); Bilirubin,Total 0.5 mg/dl (0.2-1.0); Calcium 9.2 mg/dl (8.6-10.3); Creatinine Clr Calc Pharmacy 46.9 ml/min; Est GFR (African American) 84.2 ml/min; Est GFR (Non-African American) 72.6 ml/min; Globulin 2.6 gm/dl (2.5-4.0); Magnesium 1.9 mg/dl (1.7-2.4); Total Protein 5.4 gm/dl (6.0-8.3)
[2022-11-19 07:24] LABS: INR 1.1 (0.9-1.1); Prothrombin Time 11.6 Seconds (9.0-12.0)
--- NOTE | 2022-11-19 08:11 | Hospitalist Progress Note ---
Date of Service November 19, 2022 Assessment & Plan (1) Ischemic ulcer of toe of left foot: Plan: -Acute on chronic concern for infection, unstable high risk follows with Dr. Kelly in Vascular surgery clinic, S/P left SFA stent placement on 11/04, deonr recommended orthopedic's to evaluate for amputation of multiple toes on left foot due to previous procedures and known broken hardware in the left great toe -Daptomycin to cover MRSA (previous wound with coag neg staph, urine with Klebsiella) if clinical deterioration happens will consider broadening coverage with gram-negative coverage -Consult Dr. Hill of Podiatry to evaluate planning on transmetatarsal amputation on the -Blood cultures currently pending -Spoke with Vascular Surgery, (2) Atrial fibrillation with RVR: Plan: acute on chronic unstable -Takes amiodarone qod We will need to hold Eliquis at this time least 3 doses which pushes us to surgery on the (3) Elevated troponin: Plan: demand ischemia -Initial high sen trop elevated at but did not trend -Patient is asymptomatic and without acute ST segment or T-wave changes (4) RA (rheumatoid arthritis): Plan: -Has been on chronic prednisone for 40 +years and also on Plaquenil -Will continue prednisone to avoid adrenal insufficiency, hold Plaquenil for now due to possible infection if goes to OR will have stress hydrocortisone (5) Hypertension: Plan: -Hold amlodipine and hydralazine to avoid hypotension, have hydralazine prn Admission and Anticipated Discharge Date Admission Date: November 18, 2022 Subjective Patient has obvious pain in her foot. She is a right BKA and her left foot has areas of wet gangrene. She has delayed capillary refill and although previous Doppler studies is suggested to arterial without compromise she likely has small vessel disease to her foot with gangrene visible. Because of her chronic anticoagulation use her surgical procedure has to be postponed for appropriate hemostasis to be achieved during procedure. Planning on surgery for the with a left transmetatarsal amputation Physical Exam Physical Exam: Patient is awake alert appropriate cardiac exam is regular there is a systolic murmur lungs are clear without wheezes or crackles abdomen NABS Left foot has gangrene on her great toe and other areas near the third and fourth toe there is plethora on the top of her foot with delayed capillary refill sensation is impaired Results & Data Results & Data Vital Signs (Past 12 Hours) Vital Signs Temp Pulse Resp BP BP Pulse Ox O2 Del Method 11/19/22 07:29 98.6 F 78 17 167/68 H 99 Room Air 11/19/22 03:53 97.9 F 80 18 162/74 H 97 Room Air 11/18/22 23:54 97.9 F 74 18 146/63 H 94 Room Air 11/18/22 22:45 Room Air 11/18/22 20:13 98.4 F 58 L 114/62 97 Room Air Laboratory Results Reviewed CBC reviewed PRP negative C. difficile toxin PG Care Time/CCT Total # of Minutes Spent Total Time Spent with Patient: Total time spent is greater than 50% in coordination of care (as documented) at patient's floor/unit and/or counseling patient: Coding Level of Care Code 73532 SUB INP/OBS CARE 3/50MIN Diagnoses Ischemic ulcer of toe of left foot L97.529 Atrial fibrillation with RVR I48.91 Elevated troponin R77.8 RA (rheumatoid arthritis) M06.9 Hypertension I10 Hypertension type: primary hypertension (5) Hypertension Hypertension type: primary hypertension Qualified Code(s): I10 - Essential (primary) hypertension
[2022-11-19] MEDS: DULoxetine HCL 30 MG CAP PO SCH (09:26)
[2022-11-19] MEDS: FERROUS SULFATE 325 MG TAB PO SCH (09:26)
[2022-11-19] MEDS: OXYBUTYNIN CHLORIDE XL 5 MG TABCR PO SCH (09:26)
[2022-11-19] MEDS: predniSONE 5 MG TAB PO SCH (09:27)
[2022-11-19] MEDS: oxyCODONE HCL IR 5 MG TAB (IMMEDIATE RELEASE) PO PRN ×3 (10:28→23:53)
--- NOTE | 2022-11-19 10:30 | Electrocardiogram Report ---
Test Reason : Blood Pressure : / mmHG Vent. Rate : 117 BPM Atrial Rate : 315 BPM P-R Int : 000 ms QRS Dur : 080 ms QT Int : 278 ms P-R-T Axes : 000 047 075 degrees QTc Int : 387 ms Atrial fibrillation Nonspecific ST abnormality Abnormal ECG Confirmed by Davi Camacho ([id number]) on 11/19/2022 10:29:46 AM Referred By: REFERRED SELF Confirmed By:Connor Camacho
[2022-11-19] MEDS: PANTOprazole 40 MG TAB PO SCH ×2 (10:32→19:31)
[2022-11-19] MEDS: GABAPENTIN 300 MG CAP PO SCH ×3 (10:32→19:31)
--- NOTE | 2022-11-19 10:43 | Cardiology Progress Note ---
Date of Service November 19, 2022 Assessment & Plan (1) Atrial fibrillation with RVR: (2) PAD (peripheral artery disease): Plan 1. Atrial fibrillation: She converted to sinus rhythm around 8:00 p.m. last evening. She was not generally symptomatic from the atrial fibrillation in only present to the emergency room due to measurement of an elevated heart rate on home monitoring. While the ultimate treatment would likely involve a pacemaker and more aggressive rate control, she has actually had fairly infrequent episodes of atrial fibrillation which were well tolerated. Given the potential foot infection and the need for an operation, I do not believe there is any urgent indication for a pacemaker. I will continue her on her current outpatient medical regimen which includes every other day amiodarone and systemic anticoagulation. Anticoagulation can certainly be held to facilitate her surgery. We can follow-up with regard to her atrial fibrillation and possible pacemaker in the outpatient setting. 2. Peripheral vascular disease: Tentatively scheduled for transmetatarsal amputation. Certainly reasonable to hold her Eliquis to facilitate the operation. 3. Valvular heart disease: Mild aortic and mitral regurgitation. Also moderate to severe tricuspid regurgitation with an element of pulmonary hypertension. Admission and Anticipated Discharge Date Admission Date: November 18, 2022 Subjective This morning patient claimed he feeling well. She continues to have discomfort involving her foot. She denies breathing difficulty, shortness of breath or palpitation. Around the time of her conversion to sinus rhythm last night she did notice something but had some difficulty characterizing the sensation. No overt dizziness or lightheadedness. Review of Systems Review of Systems: Per HPI Physical Exam Physical Exam: She is alert and oriented x3. Mood affect appear normal. She answered all questions appropriately. HEENT: Sclerae are anicteric. Pupils are equal and reactive to light and accommodation. Extraocular movements were intact. Neuro: Cranial nerves intact Lungs: Lungs are clear to auscultation bilaterally. There are no rales wheezes or rhonchi. She has normal respiratory effort without use of accessory muscles. There is normal pulmonary excursion. Cardiac: The rhythm was irregular. S1 and S2 were normal. There are no murmurs on examination. The PMI was not markedly displaced on palpation. Extremities: There is a right above-knee amputation. The left foot has gangrenous toes and is erythematous from the midfoot to the toes. Skin: There are no rashes noted on examination today. Results & Data Vital Signs (Past 12 Hours) Vital Signs Temp Pulse Pulse Resp BP BP Pulse Ox 11/19/22 08:00 77 11/19/22 07:29 37.0 C 78 17 167/68 H 99 11/19/22 03:53 36.6 C 80 18 162/74 H 97 11/18/22 23:54 36.6 C 74 18 146/63 H 94 11/18/22 22:45 O2 Del Method 11/19/22 08:00 11/19/22 07:29 Room Air 11/19/22 03:53 Room Air 11/18/22 23:54 Room Air 11/18/22 22:45 Room Air Laboratory Results Abnormal Lab Results 11/18/22 11/18/22 11/18/22 12:54 12:54 12:54 WBC 14.20 H RBC 3.66 L Hgb 10.9 L Hct 35.2 L MCV 96.2 MCH 29.8 MCHC 31.0 L RDW Std Deviation 49.8 H RDW Coeff of Jarvis 14.1 Plt Count 446 H MPV 9.6 Immature Gran % (Auto) 1.6 Neut % (Auto) 78.9 Lymph % (Auto) 8.0 [place] % (Auto) 9.6 Eos % (Auto) 1.1 Baso % (Auto) 0.8 Neut # (Auto) 11.20 H Lymph # (Auto) 1.14 L [place] # (Auto) 1.36 H Eos # (Auto) 0.15 Baso # (Auto) 0.12 Immature Gran # (Auto) 0.23 H ESR PT 12.1 H INR 1.1 APTT 32.5 H PTT Ratio 1.2 Sodium 140 Potassium 4.0 Chloride 105 Carbon Dioxide 26 Anion Gap 9 BUN 13 Creatinine 0.83 Est Cr Clr Drug Dosing 47.0 Est GFR ( Amer) 80.5 Est GFR (Non-Af Amer) 69.5 BUN/Creatinine Ratio 15.7 Glucose 76 Calcium 9.2 Magnesium 1.7 Total Bilirubin AST ALT Alkaline Phosphatase Troponin I High Sens 45.1 H C-Reactive Protein Total Protein Albumin Globulin Albumin/Globulin Ratio Lipase 7 L Procalcitonin SARS-CoV-2, RNA, NAAT 11/18/22 11/18/22 11/18/22 14:30 14:57 14:57 WBC RBC Hgb Hct MCV MCH MCHC RDW Std Deviation RDW Coeff of Jarvis Plt Count MPV Immature Gran % (Auto) Neut % (Auto) Lymph % (Auto) [place] % (Auto) Eos % (Auto) Baso % (Auto) Neut # (Auto) Lymph # (Auto) [place] # (Auto) Eos # (Auto) Baso # (Auto) Immature Gran # (Auto) ESR 67 H PT INR APTT PTT Ratio Sodium Potassium Chloride Carbon Dioxide Anion Gap BUN Creatinine Est Cr Clr Drug Dosing Est GFR ( Amer) Est GFR (Non-Af Amer) BUN/Creatinine Ratio Glucose Calcium Magnesium Total Bilirubin AST ALT Alkaline Phosphatase Troponin I High Sens 46.1 H C-Reactive Protein 8.54 H Total Protein Albumin Globulin Albumin/Globulin Ratio Lipase Procalcitonin SARS-CoV-2, RNA, NAAT NEGATIVE 11/18/22 11/19/22 11/19/22 14:57 06:17 06:17 WBC 11.05 H RBC 3.26 L Hgb 9.8 L Hct 30.6 L MCV 93.9 MCH 30.1 MCHC 32.0 RDW Std Deviation 47.7 H RDW Coeff of Jarvis 14.1 Plt Count 405 H MPV 9.4 Immature Gran % (Auto) 1.7 Neut % (Auto) 64.7 Lymph % (Auto) 21.6 [place] % (Auto) 9.0 Eos % (Auto) 2.0 Baso % (Auto) 1.0 Neut # (Auto) 7.14 H Lymph # (Auto) 2.39 [place] # (Auto) 1.00 H Eos # (Auto) 0.22 Baso # (Auto) 0.11 Immature Gran # (Auto) 0.19 ESR PT 11.6 INR 1.1 APTT PTT Ratio Sodium Potassium Chloride Carbon Dioxide Anion Gap BUN Creatinine Est Cr Clr Drug Dosing Est GFR ( Amer) Est GFR (Non-Af Amer) BUN/Creatinine Ratio Glucose Calcium Magnesium Total Bilirubin AST ALT Alkaline Phosphatase Troponin I High Sens C-Reactive Protein Total Protein Albumin Globulin Albumin/Globulin Ratio Lipase Procalcitonin 0.14 SARS-CoV-2, RNA, NAAT 11/19/22 06:17 WBC RBC Hgb Hct MCV MCH MCHC RDW Std Deviation RDW Coeff of Jarvis Plt Count MPV Immature Gran % (Auto) Neut % (Auto) Lymph % (Auto) [place] % (Auto) Eos % (Auto) Baso % (Auto) Neut # (Auto) Lymph # (Auto) [place] # (Auto) Eos # (Auto) Baso # (Auto) Immature Gran # (Auto) ESR PT INR APTT PTT Ratio Sodium 141 Potassium 4.0 Chloride 107 Carbon Dioxide 26 Anion Gap 8 BUN 12 Creatinine 0.80 Est Cr Clr Drug Dosing 46.9 Est GFR ( Amer) 84.2 Est GFR (Non-Af Amer) 72.6 BUN/Creatinine Ratio 15.0 Glucose 76 Calcium 9.2 Magnesium 1.9 Total Bilirubin 0.5 AST 7 L ALT 6 L Alkaline Phosphatase 125 H Troponin I High Sens C-Reactive Protein Total Protein 5.4 L Albumin 2.8 L Globulin 2.6 Albumin/Globulin Ratio 1.1 Lipase Procalcitonin SARS-CoV-2, RNA, NAAT PG Care Time/CCT Total # of Minutes Spent Total Time Spent with Patient: Total time spent is greater than 50% in coordination of care (as documented) at patient's floor/unit and/or counseling patient: Coding Level of Care Code 72759 SUB INP/OBS CARE 2/35MIN Diagnoses Atrial fibrillation with RVR I48.91 PAD (peripheral artery disease) I73.9
[2022-11-19] MEDS: MoRPHine SULFATE 4 MG/ML 1 ML CARP\\VIAL IV PRN ×3 (11:45→21:24)
[2022-11-19] MEDS: MoRPHine SULFATE 2 MG/ML CARP IV PRN (14:26)
--- NOTE | 2022-11-19 16:23 | Orthopedic Consultation ---
Date of Consultation November 19, 2022 Assessment & Plan (1) Ischemic ulcer of toe of left foot: Plan Patient seen, evaluated, and treated. Reviewed necrotic tissue left first, third, and fourth toes. Discussed transmetatarsal amputation. Patient is aware of need for amputation and requests procedure at earliest availability. Patient will discontinue Eliquis today and procedure planned for Tuesday 11/21. Will continue to evaluate and follow labs. If condition worsens Patient will be considered for sooner surgical care. Thank you for allowing me to participate in the care of this Patient. History of Present Illness Attending Physician: Franklin Mccoy MD History of Present Illness Patient is a 72 year old female who is seen at bedside for left foot gangrenous changes. Patient has a past medical history significant for rheumatoid arthritis (on daily prednisone and Plaquenil), paroxysmal supraventricular tachycardia, paroxysmal atrial fibrillation (on Eliquis), oral cancer S/P resection in 2013, hypertension, PAD S/P right above-knee amputation (Dr. Kelly), left ventricular hypertrophy, cervical neuropathy, and recent left SFA stent placement with Dr. Kelly on 11/04/22. Patient was seen at [facility] ED yesterday 11/18 with a chief complaint of tachycardia at home.While in ED the patient found to be in afib RVR with HR initially in the 150s, but otherwise stable. Since this time Patient has returned to normal sinus rythm overnight. Patient is awaiting pacemaker but awaiting resolution of left foot per Dr. Camacho. Patient has been claims counsel on transmetatarsal amputation by Dr. Kelly. She has a history of PAD and recently underwent left leg angiogram with lithotripsy, CONGRESSIONAL AIDE and stenting of the left SFA on 11/04/22. Initial labs in ED we re significant for a leukocytosis of 14, with left shift of 11, thrombocytosis of 446, BMP WNL. Allergies Allergy/AdvReac Type Severity Reaction Status Date / Time dalbavancin Allergy Severe hypotension, Verified 11/21/22 17:11 flushing, tachypnea Home Medications Medication Instructions Recorded Confirmed Type lactobacillus combination no.4 3 3,000 mmu cells PO QAM 03/30/18 11/18/22 History billion cell capsule (Probiotic) cranberry 500 mg capsule 500 mg PO QPM 09/29/18 11/18/22 History calcium carbonate 600 mg-vitamin 1 cap PO BID 07/16/20 11/18/22 History D3 5 mcg (200 unit) capsule (Calcium 600 + D(3)) sennosides 8.6 mg tablet (senna) 8.6 mg PO DAILY PRN Constipation 02/28/21 11/18/22 History meclizine 25 mg tablet 25 mg PO BID PRN dizziness #20 tabs 07/26/21 11/18/22 Rx duloxetine 30 mg capsule,delayed 30 mg PO DAILY #90 caps 12/30/21 11/18/22 Rx release calcitriol 0.5 mcg capsule 0.5 mcg PO 2XWK #30 caps 03/05/22 11/18/22 Rx (Rocaltrol) apixaban 5 mg tablet (Eliquis) 5 mg PO BID #180 tabs 05/19/22 11/18/22 Rx omeprazole 20 mg capsule,delayed 20 mg PO BID #180 caps 05/27/22 11/18/22 Rx release prednisone 1 mg tablet 1 mg PO QPM #90 tabs 06/10/22 11/18/22 Rx prednisone 5 mg tablet 5 mg PO QAM #90 tabs 06/10/22 11/18/22 Rx gabapentin 300 mg capsule 300 mg PO TID 90 days #270 caps 07/01/22 11/18/22 Rx amlodipine 5 mg tablet 5 mg PO DAILY #90 tabs 07/21/22 11/18/22 Rx ferrous sulfate 325 mg (65 mg 325 mg PO QAM #90 tabs 08/01/22 11/18/22 Rx iron) tablet oxybutynin chloride 15 mg 15 mg PO DAILY #90 tabs 09/01/22 11/18/22 Rx tablet,extended release 24 hr leflunomide 20 mg tablet (Arava) 20 mg PO QAM #90 tabs 09/03/22 11/18/22 Rx amiodarone 200 mg tablet 200 mg PO Q2D #90 tabs 09/09/22 11/18/22 Rx hydroxychloroquine 200 mg tablet 200 mg PO DAILY #90 tabs 10/16/22 11/18/22 Rx (Plaquenil) hydrocodone 10 mg-acetaminophen 1 tab PO BID PRN pain #60 tabs 11/05/22 11/18/22 Rx 325 mg tablet hydralazine 25 mg tablet 25 mg PO TID #270 tabs 11/11/22 11/18/22 Rx Patient History Medical History (Updated 11/21/22 @ 16:42 by Gaudencio Blanton MD) Acute bronchitis Acute respiratory failure with hypoxia Chronic back pain Chronic steroid use Closed fracture of coccyx Constipation due to opioid therapy DDD (degenerative disc disease) Encounter for pre-operative examination GI bleed HOSPITALIZED 02/24/22 AT [facility] (ELIQUIS ON HOLD) Hip dislocation, left RECENT DX (CAN LAY ON LEFT SIDE ONLY) History of coronary angiogram Right Lower Extremity Arteriogram, Percutaneous Transluminal Angioplasty and Stenting of Right Superficial Femoral Artery History of COVID-19 hospitalized 07/16/20 [facility]. hypoxia, fever, cough, chills, loss of taste/smell. RESOLVED History of Hodgkin's lymphoma 2003/under surveillance by PCP/Dr. Thibodeaux- S/p chemo in 2003- none since History of oral cancer s/p tongue excision left side (no chemo/no XRT 2013) No issues since Hypertension Hypomagnesemia Junctional bradycardia Overactive bladder PAD (peripheral artery disease) PAF (paroxysmal atrial fibrillation) hx - on Eliquis Paroxysmal SVT (supraventricular tachycardia) hx (follows with Dr. Vance) Peripheral arterial disease RA (rheumatoid arthritis) on chronic steroid Skin benign neoplasm Surgical History H/O foot surgery TOES X MULTIPLE H/O parathyroidectomy History of above knee amputation RT>NO PROSTHETIC (USING W/C) History of biopsy Of soft tissue of the neck History of breast surgery Puncture aspiration of cyst History of carpal tunnel release RIGHT History of cataract surgery both eye one on 09/08/22 and the other 09/23/22 History of colonoscopy History of colposcopy with cervical biopsy with endocervical curettage History of glossectomy with unilateral radical neck dissection History of hip surgery R/L REVISION Left MAURO revision: 11/09/18: SABx1 at L3-L4 at [facility] MULTIPLE HIP SURGERIES History of right above knee amputation (11/14/21) Right Above Knee Amputation(Right) - Manuel Baeza MD, FACS History of spinal surgery 10/02/[address] [facility] [address] Sanford>LUMBAR AREA History of total hip arthroplasty R/L History of total knee replacement R/L History of tubal ligation Hx of hand surgery RIGHT Hx of knee surgery MULTIPLE SURGERIES ON RT LEG Right TKA revision, I&D, antibiotic spacer: 12/29/19: SAB + PNB at [facility] PONV (postoperative nausea and vomiting) S/P revision of total knee 12/29/19 Dr. Ihsan Vela- Right total knee revision, Incision and drainage with antibiotic cement spacer Family History Mother Breast cancer Colorectal cancer Cancer Gastric cancer Aunt Colorectal cancer Other Family history non-contributory No family history of adverse response to anesthesia Denies family history of Ovarian cancer Prostate cancer Myocardial infarction Social History Smoking Status: Never smoker Second Hand Exposure: No; Do You Dip or Chew Tobacco: No; Hx Alcohol Use: No Hx Substance Use: No Preferred Language: Welsh Communication Ability: Effective Visual Impairment: No Limitations 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: Normal Machine 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 Required: No Beliefs That Will Affect Care: None marital status: Current Living Situation: Spouse current occupational status: retired How many Children do You have: 1 Other Information That Helps Us Care for You: No Feels Safe at Home: Yes Safety Concerns: Feels Safe At This Time Childhood Exposure to Second-Hand Smoke: Yes Diet: regular caffeine: Yes Dental Care, Regularly: Yes Physical Activity Frequency: Other Physical Activity Frequency Comment: Limited by a physical condition Seatbelt Use: always Sunscreen Use: Yes Assistive Devices: Wheelchair Review of Systems Review of Systems: All systems reviewed & are unremarkable except as noted in HPI & below Physical Exam Constitutional: + frail appearing, cooperative and comfortable Eyes: normal visual adrian by confrontation Neck: trachea midline Respiratory: normal respiratory effort Musculoskeletal: Extremities: + lower extremity abnormal to inspection (Above knee amputation) Right and + foot abnormality (LLE with erythema and swelling on the dorsal aspect of the left foot, left.) Left Skin: + ulcer (necrotic first, third, fourth toes.) and + wound (right ankle) Neurologic: normal touch/pain/proprioception Results & Data Vital Signs (Past 12 Hours) Vital Signs Temp Pulse Pulse Resp BP Pulse Ox O2 Del Method 11/19/22 15:37 83 11/19/22 11:38 36.5 C 90 17 162/75 H 95 Room Air 05/17/23 08:00 77 11/19/22 07:29 37.0 C 78 17 167/68 H 99 Room Air
[2022-11-19] MEDS: DAPTOmycin 300 MG in SYRINGE 0 ML IV SCH (17:37)
[2022-11-19] MEDS: predniSONE 1 MG TAB PO SCH (19:31)
[2022-11-20] MEDS: ACETAMINOPHEN 325 MG TAB PO SCH ×4 (06:56→23:59)
[2022-11-20 08:04] LABS: Basophils # (auto) 0.09 K/uL (0-0.2); Basophils % (auto) 0.8 %; Eosinophils # (auto) 0.29 K/uL (0-0.50); Eosinophils % (auto) 2.5 %; Hematocrit (blood only) 31.5 % (37.0-47.0); Hemoglobin 9.9 g/dl (12.0-16.0); Immature Granulocytes # (auto) 0.12 K/uL (0.01-0.20); Lymphocytes # (auto) 1.49 K/uL (1.2-3.4); Lymphocytes % (auto) 12.8 %; Mean Corpuscular Hemoglobin 30.1 pg (25.0-34.0); Mean Corpuscular Hgb Conc 31.4 g/dL (32.0-36.0); Mean Corpuscular Volume 95.7 fL (80.0-100.0); Mean Platelet Volume 9.4 fL (9.4-12.4); Monocytes # (auto) 1.13 K/uL (0.11-0.59); Monocytes % (auto) 9.7 %; Neutrophils % (auto) 73.2 %; Platelet Count 385 K/uL (130-400); RDW Standard Deviation 49.5 fL (36.4-46.3); Red Blood Count 3.29 M/uL (4.20-5.40); White Blood Count 11.62 K/ul (4.8-10.8)
[2022-11-20 08:24] LABS: Albumin Globulin Ratio 1.2 (0.9-2); BUN Creatinine Ratio 15.9 (10-20); Bilirubin,Total 0.3 mg/dl (0.2-1.0); Calcium 9.4 mg/dl (8.6-10.3); Creatinine Clr Calc Pharmacy 45.4 ml/min; Est GFR (African American) 81.7 ml/min; Est GFR (Non-African American) 70.5 ml/min; Globulin 2.6 gm/dl (2.5-4.0); Magnesium 1.9 mg/dl (1.7-2.4); Potassium 4.5 mmol/L (3.5-5.1); Total Protein 5.6 gm/dl (6.0-8.3)
[2022-11-20] MEDS: GABAPENTIN 300 MG CAP PO SCH ×3 (10:01→20:30)
[2022-11-20] MEDS: PANTOprazole 40 MG TAB PO SCH ×2 (10:02→20:30)
[2022-11-20] MEDS: OXYBUTYNIN CHLORIDE XL 5 MG TABCR PO SCH (10:02)
[2022-11-20] MEDS: DULoxetine HCL 30 MG CAP PO SCH (10:03)
[2022-11-20] MEDS: AMIODARONE 200 MG TAB PO SCH (10:03)
[2022-11-20] MEDS: FERROUS SULFATE 325 MG TAB PO SCH (10:03)
[2022-11-20] MEDS: predniSONE 5 MG TAB PO SCH (10:03)
[2022-11-20] MEDS: oxyCODONE HCL IR 5 MG TAB (IMMEDIATE RELEASE) PO PRN ×2 (10:10→20:29)
--- NOTE | 2022-11-20 13:58 | Hospitalist Progress Note ---
Date of Service November 20, 2022 Assessment & Plan (1) Ischemic ulcer of toe of left foot: Plan: -Acute on chronic concern for infection, unstable high risk follows with Dr. Kelly in Vascular surgery clinic, S/P left SFA stent placement on 11/04, vacular recommended evaluate for amputation left foot due to previous procedures and known broken hardware in the left great toe Doppler 11/11/2022 shows no focal high-grade stenosis or large vessel stenosis, two-vessel runoff to the left foot no flow seen in the peroneal artery but the dorsalis pedis is patent Plain x-ray did not show osteomyelitis -Daptomycin to cover MRSA (previous wound with coag neg staph, urine with Klebsiella) if clinical deterioration happens will consider broadening coverage with gram-negative coverage -Consult Dr. Hill of Podiatry to evaluate planning on transmetatarsal amputation on the -Blood cultures currently negative to date (2) Atrial fibrillation with RVR: Plan: acute on chronic unstable -Takes amiodarone qod We will need to hold Eliquis at this time least 3 doses which pushes us to surgery on the (3) Elevated troponin: Plan: demand ischemia -Initial high sen trop elevated at but did not trend -Patient is asymptomatic and without acute ST segment or T-wave changes (4) RA (rheumatoid arthritis): Plan: -Has been on chronic prednisone for 40 +years and also on Plaquenil -Will continue prednisone to avoid adrenal insufficiency, hold Plaquenil for now due to possible infection if goes to OR will have stress hydrocortisone (5) Hypertension: Plan: -Hold amlodipine and hydralazine to avoid hypotension, have hydralazine prn Admission and Anticipated Discharge Date Admission Date: November 18, 2022 Subjective Patient has obvious pain in her foot. She is a right BKA and her left foot has areas of wet gangrene. She has some improvement with lessened redness . Because of her chronic anticoagulation use her surgical procedure has to be postponed for appropriate hemostasis to be achieved during procedure. Planning on surgery for the with a left transmetatarsal amputation Physical Exam Physical Exam: Patient is awake alert appropriate cardiac exam is regular there is a systolic murmur lungs are clear without wheezes or crackles abdomen NABS Left foot has gangrene on her great toe and other areas near the third and fourth toe there is plethora on the top of her foot with delayed capillary refill sensation is impaired Results & Data Results & Data Vital Signs (Past 12 Hours) Vital Signs Temp Pulse Pulse Resp BP Pulse Ox O2 Del Method 11/20/22 12:19 98.2 F 80 18 162/70 H 90 Room Air 11/20/22 08:00 72 11/20/22 08:05 98.2 F 77 18 159/72 H 96 Room Air 11/20/22 03:32 98.2 F 77 16 154/66 H 96 Room Air PG Care Time/CCT Total # of Minutes Spent Total Time Spent with Patient: Total time spent is greater than 50% in coordination of care (as documented) at patient's floor/unit and/or counseling patient: Coding Level of Care Code 48446 SUB INP/OBS CARE 2/35MIN Diagnoses Ischemic ulcer of toe of left foot L97.529 Atrial fibrillation with RVR I48.91 Elevated troponin R77.8 RA (rheumatoid arthritis) M06.9 Hypertension I10 Hypertension type: primary hypertension (5) Hypertension Hypertension type: primary hypertension Qualified Code(s): I10 - Essential (primary) hypertension
[2022-11-20] MEDS: DAPTOmycin 300 MG in SYRINGE 0 ML IV SCH (15:15)
[2022-11-20] MEDS: SENNA 8.6 MG TAB PO SCH (20:25)
[2022-11-20] MEDS: predniSONE 1 MG TAB PO SCH (20:30)
[2022-11-21 04:51] LABS: Basophils # (auto) 0.11 K/uL (0-0.2); Basophils % (auto) 0.9 %; Eosinophils # (auto) 0.26 K/uL (0-0.50); Eosinophils % (auto) 2.1 %; Hematocrit (blood only) 31.6 % (37.0-47.0); Hemoglobin 9.9 g/dl (12.0-16.0); Immature Granulocytes # (auto) 0.11 K/uL (0.01-0.20); Immature Granulocytes % (auto) 0.9 %; Lymphocytes # (auto) 1.21 K/uL (1.2-3.4); Lymphocytes % (auto) 9.8 %; Mean Corpuscular Hemoglobin 29.7 pg (25.0-34.0); Mean Corpuscular Hgb Conc 31.3 g/dL (32.0-36.0); Mean Corpuscular Volume 94.9 fL (80.0-100.0); Mean Platelet Volume 9.5 fL (9.4-12.4); Monocytes # (auto) 0.98 K/uL (0.11-0.59); Neutrophils # (auto) 9.62 K/uL (1.40-6.50); Neutrophils % (auto) 78.3 %; Platelet Count 387 K/uL (130-400); RDW Coefficient of Variation 13.8 % (11.5-14.5); RDW Standard Deviation 47.7 fL (36.4-46.3); Red Blood Count 3.33 M/uL (4.20-5.40); White Blood Count 12.29 K/ul (4.8-10.8)
[2022-11-21 05:08] LABS: Albumin Globulin Ratio 1.2 (0.9-2); BUN Creatinine Ratio 15.7 (10-20); Bilirubin,Total 0.3 mg/dl (0.2-1.0); Calcium 9.2 mg/dl (8.6-10.3); Creatinine Clr Calc Pharmacy 44.9 ml/min; Est GFR (African American) 80.5 ml/min; Est GFR (Non-African American) 69.5 ml/min; Globulin 2.6 gm/dl (2.5-4.0); Magnesium 1.8 mg/dl (1.7-2.4); Potassium 4.6 mmol/L (3.5-5.1); Total Protein 5.6 gm/dl (6.0-8.3)
[2022-11-21] MEDS: ACETAMINOPHEN 325 MG TAB PO SCH ×4 (05:47→23:35)
[2022-11-21] MEDS: MoRPHine SULFATE 2 MG/ML CARP IV PRN ×3 (12:39→23:35)
[2022-11-21] MEDS: DULoxetine HCL 30 MG CAP PO SCH (12:40)
[2022-11-21] MEDS: SENNA 8.6 MG TAB PO SCH ×2 (12:41→21:55)
[2022-11-21] MEDS: OXYBUTYNIN CHLORIDE XL 5 MG TABCR PO SCH (12:41)
[2022-11-21] MEDS: predniSONE 5 MG TAB PO SCH (12:41)
[2022-11-21] MEDS: PANTOprazole 40 MG TAB PO SCH ×2 (12:41→21:56)
[2022-11-21] MEDS: FERROUS SULFATE 325 MG TAB PO SCH (12:41)
[2022-11-21] MEDS: GABAPENTIN 300 MG CAP PO SCH ×3 (12:41→21:56)
--- NOTE | 2022-11-21 16:18 | Anesthesiology Consultation ---
Date of Service November 21, 2022 Assessment & Plan (1) Encounter for pre-operative examination: Chart Review Chart Review: Acceptable Risk for Surgery and Patient NOT seen in Pre Admission Testing Cardiology note 11/19/22: Assessment & Plan (1) Atrial fibrillation with RVR: (2) PAD (peripheral artery disease): Plan 1. Atrial fibrillation: She converted to sinus rhythm around 8:00 p.m. last evening. She was not generally symptomatic from the atrial fibrillation in only present to the emergency room due to measurement of an elevated heart rate on home monitoring. While the ultimate treatment would likely involve a pacemaker and more aggressive rate control, she has actually had fairly infrequent episodes of atrial fibrillation which were well tolerated. Given the potential foot infection and the need for an operation, I do not believe there is any urgent indication for a pacemaker. I will continue her on her current outpatient medical regimen which includes every other day amiodarone and systemic anticoagulation. Anticoagulation can certainly be held to facilitate her surgery. We can follow-up with regard to her atrial fibrillation and possible pacemaker in the outpatient setting. 2. Peripheral vascular disease: Tentatively scheduled for transmetatarsal amputation. Certainly reasonable to hold her Eliquis to facilitate the operation. 3. Valvular heart disease: Mild aortic and mitral regurgitation. Also moderate to severe tricuspid regurgitation with an element of pulmonary hypertension. Consults Requested none History Surgery Operation Date: 11/21/22 07:00 Proposed Procedures p Left Foot Transmetatarsal Amputation - Molina Hill, DPM, MS Height/Weight Height: 5 ft 2 in Weight: 47.8 kg Allergies Allergy/AdvReac Type Severity Reaction Status Date / Time dalbavancin Allergy Severe hypotension, Verified 11/14/22 13:09 flushing, tachypnea Medications Home Medications Medication Instructions Recorded Confirmed Last Taken lactobacillus combination no.4 3 3,000 mmu cells PO QAM 03/30/18 11/18/22 11/03/22 09:00 billion cell capsule (Probiotic) cranberry 500 mg capsule 500 mg PO QPM 09/29/18 11/18/22 11/03/22 18:00 calcium carbonate 600 mg-vitamin 1 cap PO BID 07/16/20 11/18/22 11/03/22 18:00 D3 5 mcg (200 unit) capsule (Calcium 600 + D(3)) sennosides 8.6 mg tablet (senna) 8.6 mg PO DAILY PRN Constipation 02/28/21 11/18/22 11/03/21 meclizine 25 mg tablet 25 mg PO BID PRN dizziness #20 tabs 07/26/21 11/18/22 1 Month Ago ~10/07/21 duloxetine 30 mg capsule,delayed 30 mg PO DAILY #90 caps 12/30/21 11/18/22 11/03/22 09:00 release calcitriol 0.5 mcg capsule 0.5 mcg PO 2XWK #30 caps 03/05/22 11/18/22 11/03/22 18:00 (Rocaltrol) apixaban 5 mg tablet (Eliquis) 5 mg PO BID #180 tabs 05/19/22 11/18/22 11/04/22 04:30 omeprazole 20 mg capsule,delayed 20 mg PO BID #180 caps 05/27/22 11/18/22 11/03/22 21:00 release prednisone 1 mg tablet 1 mg PO QPM #90 tabs 06/10/22 11/18/22 11/03/22 18:00 prednisone 5 mg tablet 5 mg PO QAM #90 tabs 06/10/22 11/18/22 11/03/22 09:00 gabapentin 300 mg capsule 300 mg PO TID 90 days #270 caps 07/01/22 11/18/22 11/03/22 21:00 amlodipine 5 mg tablet 5 mg PO DAILY #90 tabs 07/21/22 11/18/22 11/04/22 04:30 ferrous sulfate 325 mg (65 mg 325 mg PO QAM #90 tabs 08/01/22 11/18/22 11/03/22 09:00 iron) tablet oxybutynin chloride 15 mg 15 mg PO DAILY #90 tabs 09/01/22 11/18/22 11/03/22 18:00 tablet,extended release 24 hr leflunomide 20 mg tablet (Arava) 20 mg PO QAM #90 tabs 09/03/22 11/18/22 11/03/22 09:00 amiodarone 200 mg tablet 200 mg PO Q2D #90 tabs 09/09/22 11/18/22 11/04/22 04:30 hydroxychloroquine 200 mg tablet 200 mg PO DAILY #90 tabs 0411/18/22 11/03/22 09:00 (Plaquenil) hydrocodone 10 mg-acetaminophen 1 tab PO BID PRN pain #60 tabs 11/05/22 11/18/22 Unknown 325 mg tablet hydralazine 25 mg tablet 25 mg PO TID #270 tabs 11/11/22 11/18/22 Unknown Active Medications Generic Name Dose Route Start Last Admin Trade Name Freq PRN Reason Stop Dose Admin Acetaminophen 650 mg 11/18/22 18:00 11/21/22 12:41 Acetaminophen 325 Mg Tab PO 12/18/22 17:59 Not Given Q6H ANGELO Amiodarone HCl 200 mg 11/20/22 09:00 11/20/22 10:03 Amiodarone 200 Mg Tab PO 12/20/22 08:59 200 mg Q48H ANGELO Administration Apixaban 5 mg 11/18/22 21:00 11/18/22 21:13 Apixaban 5 Mg Tablet PO 12/18/22 20:59 5 mg BID ANGELO Administration Duloxetine HCl 30 mg 11/19/22 09:00 11/21/22 12:40 Duloxetine Hcl 30 Mg Cap PO 12/19/22 08:59 Not Given DAILY ANGELO Ferrous Sulfate 325 mg 11/19/22 09:00 11/21/22 12:41 Ferrous Sulfate 325 Mg Tab PO 12/19/22 08:59 Not Given QAM ANGELO Gabapentin 300 mg 11/18/22 21:00 11/21/22 14:51 Gabapentin 300 Mg Cap PO 12/18/22 20:59 Not Given TID ANGELO Diltiazem HCl 125 mg/ Dextrose 125 mls @ 5 mls/hr 11/18/22 12:30 11/18/22 20:28 IV 12/18/22 12:29 Infused .Q24H ANGELO Titration Protocol 5 MG/HR Daptomycin 300 mg/ Syringe 6 mls @ 3 mls/min 11/19/22 16:00 11/20/22 15:15 IV 11/25/22 15:59 3 mls/min Q24H ANGELO Administration Protocol Morphine Sulfate 2 mg 11/19/22 09:40 11/21/22 14:56 Morphine Sulfate 2 Mg/Ml Carp IV 12/03/22 09:39 2 mg Q4 PRN Administration Moderate Pain (Scale 4, 5, 6) Morphine Sulfate 4 mg 11/19/22 09:40 11/19/22 21:24 Morphine Sulfate 4 Mg/Ml 1 Ml Carp\Vial IV 12/03/22 09:39 4 mg Q4 PRN Administration Severe Pain (Scale 7, 8, 9,10) Oxybutynin Chloride 15 mg 11/19/22 09:00 11/21/22 12:41 Oxybutynin Chloride Xl 5 Mg Tabcr PO 12/19/22 08:59 Not Given DAILY ANGELO Oxycodone HCl 10 mg 11/19/22 09:40 11/20/22 20:29 Oxycodone Hcl Ir 5 Mg Tab (Immediate Release) PO 12/03/22 09:39 10 mg Q6H PRN Administration Moderate Pain 4-6/10 Pantoprazole Sodium 40 mg 11/18/22 21:00 11/21/22 12:41 Pantoprazole 40 Mg Tab PO 12/18/22 20:59 Not Given BID ANGELO Prednisone 5 mg 11/19/22 09:00 11/21/22 12:41 Prednisone 5 Mg Tab PO 12/19/22 08:59 Not Given QAM ANGELO Prednisone 1 mg 11/18/22 21:00 11/20/22 20:30 Prednisone 1 Mg Tab PO 12/18/22 20:59 1 mg QPM ANGELO Administration Sennosides 8.6 mg 11/20/22 21:00 11/21/22 12:41 Senna 8.6 Mg Tab PO 12/20/22 20:59 Not Given BID ANGELO Past Medical History Medical History (Updated 11/21/22 @ 16:42 by Gaudencio Blanton MD) Acute bronchitis Acute respiratory failure with hypoxia Chronic back pain Chronic steroid use Closed fracture of coccyx Constipation due to opioid therapy DDD (degenerative disc disease) Encounter for pre-operative examination GI bleed HOSPITALIZED 02/24/22 AT [facility] (ELIQUIS ON HOLD) Hip dislocation, left RECENT DX (CAN LAY ON LEFT SIDE ONLY) History of coronary angiogram Right Lower Extremity Arteriogram, Percutaneous Transluminal Angioplasty and Stenting of Right Superficial Femoral Artery History of COVID-19 hospitalized 07/16/20 [facility]. hypoxia, fever, cough, chills, loss of taste/smell. RESOLVED History of Hodgkin's lymphoma 2003/under surveillance by PCP/Dr. Thibodeaux- S/p chemo in 2003- none since History of oral cancer s/p tongue excision left side (no chemo/no XRT 2013) No issues since Hypertension Hypomagnesemia Junctional bradycardia Overactive bladder PAD (peripheral artery disease) PAF (paroxysmal atrial fibrillation) hx - on Eliquis Paroxysmal SVT (supraventricular tachycardia) hx (follows with Dr. Vance) Peripheral arterial disease RA (rheumatoid arthritis) on chronic steroid Skin benign neoplasm (3) Elevated troponin: Plan: demand ischemia -Initial high sen trop elevated at but did not trend -Patient is asymptomatic and without acute ST segment or T-wave changes (4) RA (rheumatoid arthritis): Plan: -Has been on chronic prednisone for 40 +years and also on Plaquenil -Will continue prednisone to avoid adrenal insufficiency, hold Plaquenil for now due to possible infection if goes to OR will have stress hydrocortisone Past Family History Family History Mother Breast cancer Colorectal cancer Cancer Gastric cancer Aunt Colorectal cancer Other Family history non-contributory No family history of adverse response to anesthesia Denies family history of Ovarian cancer Prostate cancer Myocardial infarction Past Surgical History Surgical History H/O foot surgery TOES X MULTIPLE H/O parathyroidectomy History of above knee amputation RT>NO PROSTHETIC (USING W/C) History of biopsy Of soft tissue of the neck History of breast surgery Puncture aspiration of cyst History of carpal tunnel release RIGHT History of cataract surgery both eye one on 09/08/22 and the other 09/23/22 History of colonoscopy History of colposcopy with cervical biopsy with endocervical curettage History of glossectomy with unilateral radical neck dissection History of hip surgery R/L REVISION Left MAURO revision: 11/09/18: SABx1 at L3-L4 at [facility] MULTIPLE HIP SURGERIES 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 Sanford>LUMBAR AREA History of total hip arthroplasty R/L History of total knee replacement R/L History of tubal ligation Hx of hand surgery RIGHT Hx of knee surgery MULTIPLE SURGERIES ON RT LEG Right TKA revision, I&D, antibiotic spacer: 12/29/19: SAB + PNB at [facility] PONV (postoperative nausea and vomiting) S/P revision of total knee 12/29/19 Dr. Ihsan Vela- Right total knee revision, Incision and drainage with antibiotic cement spacer Social History Smoking Status: Never smoker Do You Dip or Chew Tobacco: No Hx Alcohol Use: No Alcohol type: hard liquor alcohol intake frequency: holidays/special occasions only Hx Substance Use: No substance use type: does not use Physical Exam Vital Signs Last Vital Signs Temp 37.1 C 11/21/22 15:43 Pulse 86 11/21/22 15:43 Resp 20 11/21/22 15:43 BP 187/71 H 11/21/22 15:43 Pulse Ox 97 11/21/22 15:43 O2 Del Method Room Air 11/21/22 15:43 Testing Laboratory Results 11/21/22 04:19 11/21/22 04:19 PT 11.0 Seconds (9.0-12.0) 11/21/22 04:19 INR 1.0 (0.9-1.1) 11/21/22 04:19 APTT 32.5 Seconds (21.0-31.0) H 11/18/22 12:54 11/18/22 14:57 Aerobic Blood Culture - Preliminary Blood No growth in Aerobic bottle after 48 hours. Anaerobic Blood Culture - Preliminary No growth in Anaerobic bottle after 48 hours. 11/18/22 14:57 Aerobic Blood Culture - Preliminary Blood No growth in Aerobic bottle after 48 hours. Anaerobic Blood Culture - Preliminary No growth in Anaerobic bottle after 48 hours. Electrocardiogram Date: 11/18/22 DICTATED BY:Davi Camacho MD Test Reason : Blood Pressure : / mmHG Vent. Rate : 117 BPM Atrial Rate : 315 BPM P-R Int : 000 ms QRS Dur : 080 ms QT Int : 278 ms P-R-T Axes : 000 047 075 degrees QTc Int : 387 ms Atrial fibrillation Nonspecific ST abnormality Abnormal ECG Confirmed by Davi Camacho ([id number]) on 11/19/2022 10:29:46 AM Chest X-Ray Date: 11/18/22 SINGLE VIEW CHEST CLINICAL HISTORY: Atypical chest pain FINDINGS: 2 AP, portable, upright chest radiographs are compared to study dated 07/14/2022. The heart is enlarged noting atherosclerotic calcification of the thoracic aorta. The pulmonary vasculature is noncongested. Chronic interstitial thickening is similar to previous. There is bibasilar scarring/atelectasis. The lungs and pleural spaces are otherwise clear. No pneumothorax is seen. The skeletal structures are osteopenic. Advanced arthritic change is seen in the shoulders. The bony thorax is grossly intact. Hardware is partially visualized in the lumbar spine. Surgical clips are noted in the left neck. IMPRESSION: Cardiomegaly with no active disease in the chest. Echocardiogram Date: 07/15/22 LV systolic function is normal. EF 60-65% LV wall motion is normal. Moderate LVH RV is normal in size and function. Mild AR Mild pulmonic valvular regurgitation. Mild MR Moderate to severe tricuspid regurgitation. RV systolic pressure is elevated at 40-50mmHg.
[2022-11-21] MEDS: DAPTOmycin 300 MG in SYRINGE 0 ML IV SCH (16:52)
--- NOTE | 2022-11-21 17:53 | History & Physical Bridge Note ---
Date of Service November 21, 2022 History & Physical Bridge Note I have examined the patient, reviewed the History & Physical and in the interval since the performance of the History & Physical I have noted the following changes of clinical significance: no changes noted
[2022-11-21] MEDS ORDERED: BUPIVACAINE 0.5 % 5 MG/1 ML MPF 30ML VIAL ONE (18:00)
[2022-11-21] MEDS ORDERED: fentaNYL citrate PF 100 MCG/2 ML VIAL ONE ×3 (18:03→19:37)
[2022-11-21] MEDS ORDERED: LIDOCAINE 2% 2 ML VIAL/AMP(20MG/ML) INFIL ONE (18:23)
[2022-11-21] MEDS ORDERED: ONDANSETRON INJ 2 MG/ML 2 ML VIAL ONE (18:23)
[2022-11-21] MEDS ORDERED: PROPOFOL IV EMULSION 10 MG/ML 20 ML VIAL IV ONE (18:23)
[2022-11-21] MEDS ORDERED: DEXAMETHASONE SOD INJ 4 MG/ML VIAL ONE (18:23)
[2022-11-21] MEDS ORDERED: ceFAZolin 330 MG/ML 1 GM VIAL ONE (18:45)
[2022-11-21] MEDS ORDERED: LABETALOL HCL IV 5 MG/ML 20ML IV ONE (18:56)
--- NOTE | 2022-11-21 19:25 | Post Operative Brief Note ---
Immediate Post Op Note v1 Date of Surgery November 21, 2022 Pre & Post Diagnosis Operation Date: 11/21/22 07:00 <No data on this case meets the specified criteria> I identified the patient and participated in the time-out.: Yes Procedure Operation Date: 11/21/22 07:00 <No data on this case meets the specified criteria> Surgeon Molina Hill, TISH, MS Newspaper Or Periodical Editor none Estimated Blood Loss 20 Findings Consistent with Post-Op Diagnosis Necrotic forefoot
[2022-11-21] MEDS ORDERED: ONDANSETRON INJ 2 MG/ML 2 ML VIAL IV PRN (19:36)
[2022-11-21] MEDS ORDERED: ePHEDrine sulfate 50 MG/ML AMP IV PRN (19:36)
[2022-11-21] MEDS ORDERED: METOCLOPRAMIDE HCL INJ 5 MG/ML 2 ML VIAL IV PRN (19:36)
[2022-11-21] MEDS ORDERED: ATROPINE SULFATE 0.1 MG/ML 10ML SYR IV PRN (19:36)
[2022-11-21] MEDS: fentaNYL citrate PF 100 MCG/2 ML VIAL IV PRN ×2 (19:38→19:43)
--- NOTE | 2022-11-21 19:38 | Anesthesiology Progress Note ---
Date of Service November 21, 2022 Anesthesia Post Procedure Vital Signs Vital Signs: Temp Pulse Pulse Pulse Resp BP Pulse Ox 11/21/22 17:12 37.1 C 89 18 169/74 H 96 11/21/22 08:00 82 11/21/22 15:43 37.1 C 86 20 187/71 H 97 11/21/22 07:53 37.0 C 83 18 180/70 H 94 11/21/22 03:00 36.5 C 77 16 157/72 H 92 11/21/22 00:20 79 11/20/22 22:47 36.7 C 77 18 157/73 H 91 11/20/22 19:42 37.2 C 77 18 131/71 96 O2 Del Method 11/21/22 17:12 Room Air 11/21/22 08:00 11/21/22 15:43 Room Air 11/21/22 07:53 Room Air 11/21/22 03:00 Room Air 11/21/22 00:20 11/20/22 22:47 Room Air 11/20/22 19:42 Room Air Pain Intensity Left Leg: Pain Intensity: 2 Transfer of Care Handoff Completed per policy Notes Mental Status: alert / awake / arousable and participated in evaluation Nausea / Vomiting: adequately controlled Pain: adequately controlled Airway Patency, RR, SpO2: stable & adequate BP & HR: stable & adequate Hydration State: stable & adequate Anesthetic Complications: no major complications apparent and Pt Satisfied with anesthetic care
[2022-11-21] MEDS: HYDROmorphone INJ 1 MG/ML SYRINGE IV PRN ×7 (19:45→20:15)
[2022-11-21] MEDS: oxyCODONE HCL IR 5 MG TAB (IMMEDIATE RELEASE) PO PRN (21:00)
[2022-11-21] MEDS: APIXABAN 5 MG TABLET PO SCH (21:55)
[2022-11-21] MEDS: predniSONE 1 MG TAB PO SCH (21:55)
--- NOTE | 2022-11-21 22:10 | Operative Report ---
Post Operative Report Pre & Post Diagnosis Operation Date: 11/21/22 07:00 Pre-Op Diagnosis: Ischemic Ulcer of Toe of Left Foot Post-Op Diagnosis: Ischemic Ulcer of Toe of Left Foot I identified the patient and participated in the time-out.: Yes Procedure Operation Date: 11/21/22 07:00 Actual Procedures p Left Foot Transmetatarsal Amputation(Left) - Molina Hill DPM, MS Surgeon Molina Hill DPM, MS Party Planner none Estimated Blood Loss 20 Findings Consistent with Post-Op Diagnosis necrosis of forefoot Specimens Left forefoot Description of Procedure History of present illness: Patient is a 72 year old female who is seen for treatment of left foot gangrene secondary to peripheral vascular disease. I discussed transmetatarsal amputation and reviewed surgery. All questions answered. Discussed procedure in detail and postoperative recovery. All potential risks, benefits, complications, alternatives, rehab, potential for incomplete relief of symptoms, need for further surgery, DVT, PE, , persistent pain, swelling, scarring, weakness, neurovascular, wound complications and potential for amputations were discussed with patient. Unwanted outcomes such as, but not limited to were reviewed including under correction, overcorrection, return of deformity, infection. All questions were answered. Patient has decided to proceed with procedure as indicated. Preoperative diagnosis: Left foot gangrene Postoperative diagnosis: Same Name of operation: Left foot transmetatarsal amputation Surgeon Dr. Hill Party Planner: None Anesthesia: General anesthesia care Hemostasis: Anatomic dissection, Pneumatic calf tourniquet Estimated blood loss: 20cc Procedure in detail: Under mild sedation the patient was brought in the operating room placed on the operating table in supine position. A pneumatic calf tourniquet was then placed about the patient's left calf. Following IV sedation local anesthesia was obtained about the left ankle utilizing 10 cc of a one-to-one mixture of 1% lidocaine plain and 0.5% Marcaine plain. The foot was then prepped scrubbed and draped in usual aseptic manner. An Esmarch bandage was utilized to exsanguinate the patient's left foot and the pneumatic calf tourniquet was then inflated. Attention was then directed to the left gangrenous foot. A fishmouth incision was created utilizing a sharp, sterile, #15 blade encompassing the forefoot. The incision which was deepened through subcutaneous tissue using sharp blunt dissection. Care was taken to identify and retract all vital neurovascular structures. All bleeders were ligated and cauterized necessary. Once down to the layer of periosteum and bone, a transverse incision was made within the periosteum. A cahpman elevator was then used to free the soft tissue at the site of the metatarsal neck region. Once this was then performed with the use of a sagittal saw the metatarsals were then transversely cut. Once all the metatarsals have been cut, the metatarsal heads were then disarticulated from the surrounding soft tissue with the use of a 15 blade dissecting down through the medial aspect of the first metatarsal capsule including the sesamoids the soft tissue was then reflected from the plantar aspect of the metatarsal heads plantarly. The patient at that point then had the forefoot completely disarticulated and passed off to the back table in order to be sent for pathology. Attention was now directed back towards the forefoot. There was no gross infectious signs noted at this point. The patient then underwent copious irrigation with the use of 3 L of lactate ringer. All participants in the surgery removed their top layer of gloves and only clean instrumentation was used from here on out. Hemostasis was acquired. The wound was closed in layers with 3-0 vicryl. The skin was then closed with 3- 0 nylon. The pneumatic tourniquet was deflated and a prompt hyperemic response was noted to the left foot. Dry sterile dressing was applied consisting of 4x4's, ABD, Kerlix and Son. The Patient tolerated the procedure and anesthesia well. He was transferred to recovery room vital signs stable. After postoperative monitoring the patient will be re admitted to the floor resuming all pre operative orders. I attest to the content of the Intraoperative Record and any orders documented therein. Any exceptions are noted below.
--- NOTE | 2022-11-21 23:00 | Hospitalist Progress Note ---
Date of Service November 21, 2022 Assessment & Plan (1) Ischemic ulcer of toe of left foot: Plan: -Acute on chronic concern for infection, unstable high risk follows with Dr. Kelly in Vascular surgery clinic, S/P left SFA stent placement on 11/04, vacular recommended evaluate for amputation left foot due to previous procedures and known broken hardware in the left great toe Doppler 11/11/2022 shows no focal high-grade stenosis or large vessel stenosis, two-vessel runoff to the left foot no flow seen in the peroneal artery but the dorsalis pedis is patent Plain x-ray did not show osteomyelitis -Daptomycin to cover MRSA (previous wound with coag neg staph, urine with Klebsiella) if clinical deterioration happens will consider broadening coverage with gram-negative coverage -Consult Dr. Hill of Podiatry to evaluate planning on transmetatarsal amputation on the -Plan for later today. -Blood cultures currently negative to date (2) Atrial fibrillation with RVR: Plan: acute on chronic unstable -Takes amiodarone qod We will need to hold Eliquis at this time least 3 doses which pushes us to surgery on the (3) Elevated troponin: Plan: demand ischemia -Initial high sen trop elevated at but did not trend -Patient is asymptomatic and without acute ST segment or T-wave changes (4) RA (rheumatoid arthritis): Plan: -Has been on chronic prednisone for 40 +years and also on Plaquenil -Will continue prednisone to avoid adrenal insufficiency, hold Plaquenil for now due to possible infection if goes to OR will have stress hydrocortisone (5) Hypertension: Plan: -Hold amlodipine and hydralazine to avoid hypotension, have hydralazine prn Admission and Anticipated Discharge Date Admission Date: November 18, 2022 Subjective 72 yo female reports no new symptoms. Review of Systems Review of Systems: All systems reviewed & are unremarkable except as noted in HPI & below Physical Exam Physical Exam: Patient is awake alert appropriate cardiac exam is regular there is a systolic murmur lungs are clear without wheezes or crackles abdomen NABS Left foot has gangrene on her great toe and other areas near the third and fourth toe there is plethora on the top of her foot with delayed capillary refill sensation is impaired Results & Data Results & Data Vital Signs (Past 12 Hours) Vital Signs Temp Pulse Pulse Resp BP Pulse Ox O2 Del Method 11/21/22 20:54 36.6 C 86 14 183/70 H 96 Room Air 11/21/22 20:30 95 H 18 155/92 H 97 Room Air 11/21/22 20:20 37.6 C H 95 H 21 160/90 H 96 Room Air 11/21/22 20:10 94 H 22 162/69 H 97 Room Air 11/21/22 20:00 93 H 22 161/73 H 97 Room Air 11/21/22 19:50 97 H 22 150/73 H 97 Room Air 11/21/22 19:40 36.5 C 92 H 20 175/74 H 97 Room Air 11/21/22 19:30 36.5 C 92 H 11 L 158/69 H 98 Oxymask 11/21/22 17:12 37.1 C 89 18 169/74 H 96 Room Air 11/21/22 15:43 37.1 C 86 20 187/71 H 97 Room Air O2 Flow Rate 11/21/22 20:54 11/21/22 20:30 11/21/22 20:20 11/21/22 20:10 11/21/22 20:00 11/21/22 19:50 11/21/22 19:40 11/21/22 19:30 6 11/21/22 17:12 11/21/22 15:43 PG Care Time/CCT Total # of Minutes Spent Total Time Spent with Patient: Total time spent is greater than 50% in coordination of care (as documented) at patient's floor/unit and/or counseling patient: Coding Level of Care Code 82843 SUB INP/OBS CARE 2/35MIN Diagnoses Ischemic ulcer of toe of left foot L97.529 Atrial fibrillation with RVR I48.91 Elevated troponin R77.8 RA (rheumatoid arthritis) M06.9 Hypertension I10 Hypertension type: primary hypertension (5) Hypertension Hypertension type: primary hypertension Qualified Code(s): I10 - Essential (primary) hypertension
[2022-11-22] MEDS: ACETAMINOPHEN 325 MG TAB PO SCH ×4 (05:58→22:50)
[2022-11-22] MEDS: oxyCODONE HCL IR 5 MG TAB (IMMEDIATE RELEASE) PO PRN ×3 (09:38→22:50)
[2022-11-22] MEDS: MoRPHine SULFATE 2 MG/ML CARP IV PRN ×2 (09:40→20:58)
[2022-11-22] MEDS: APIXABAN 5 MG TABLET PO SCH ×2 (09:43→20:59)
[2022-11-22] MEDS: AMIODARONE 200 MG TAB PO SCH (09:43)
[2022-11-22] MEDS: DULoxetine HCL 30 MG CAP PO SCH (09:44)
[2022-11-22] MEDS: FERROUS SULFATE 325 MG TAB PO SCH (09:44)
[2022-11-22] MEDS: OXYBUTYNIN CHLORIDE XL 5 MG TABCR PO SCH (09:45)
[2022-11-22] MEDS: GABAPENTIN 300 MG CAP PO SCH ×3 (09:45→20:59)
[2022-11-22] MEDS: PANTOprazole 40 MG TAB PO SCH ×2 (09:46→20:59)
[2022-11-22] MEDS: predniSONE 5 MG TAB PO SCH (09:46)
[2022-11-22] MEDS: SENNA 8.6 MG TAB PO SCH ×2 (09:47→20:58)
[2022-11-22] MEDS: DAPTOmycin 300 MG in SYRINGE 0 ML IV SCH (15:23)
[2022-11-22] MEDS: dilTIAZem HCL 125 MG in DEXTROSE 5% 100 ML IV SCH (18:55)
[2022-11-22] MEDS: predniSONE 1 MG TAB PO SCH (20:58)
--- NOTE | 2022-11-22 22:57 | Hospitalist Progress Note ---
Date of Service November 22, 2022 Assessment & Plan (1) Ischemic ulcer of toe of left foot: Plan: -Acute on chronic concern for infection, unstable high risk follows with Dr. Kelly in Vascular surgery clinic, S/P left SFA stent placement on 11/04, vacular recommended evaluate for amputation left foot due to previous procedures and known broken hardware in the left great toe Doppler 11/11/2022 shows no focal high-grade stenosis or large vessel stenosis, two-vessel runoff to the left foot no flow seen in the peroneal artery but the dorsalis pedis is patent Plain x-ray did not show osteomyelitis -Daptomycin to cover MRSA (previous wound with coag neg staph, urine with Klebsiella) if clinical deterioration happens will consider broadening coverage with gram-negative coverage -Consult Dr. Hill of Podiatry to evaluate planning on transmetatarsal amputation on the -Plan for later today. -Blood cultures currently negative to date (2) Atrial fibrillation with RVR: Plan: acute on chronic unstable -Takes amiodarone qod eliquis on hold. (3) Elevated troponin: Plan: demand ischemia -Initial high sen trop elevated at but did not trend -Patient is asymptomatic and without acute ST segment or T-wave changes (4) RA (rheumatoid arthritis): Plan: -Has been on chronic prednisone for 40 +years and also on Plaquenil -Will continue prednisone to avoid adrenal insufficiency, hold Plaquenil for now due to possible infection (5) Hypertension: Plan: -Hold amlodipine and hydralazine to avoid hypotension, have hydralazine prn Admission and Anticipated Discharge Date Admission Date: November 18, 2022 Subjective 72 yo femlae reports no new symptoms. Review of Systems Review of Systems: All systems reviewed & are unremarkable except as noted in HPI & below Physical Exam Physical Exam: Patient is awake alert appropriate cardiac exam is regular there is a systolic murmur lungs are clear without wheezes or crackles abdomen NABS Left foot is covered with dressing. Results & Data Results & Data Vital Signs (Past 12 Hours) Vital Signs Temp Pulse Resp BP Pulse Ox O2 Del Method 11/22/22 22:49 36.6 C 77 14 156/69 H 96 Room Air 11/22/22 19:08 36.8 C 79 17 156/79 H 92 Room Air 11/22/22 16:37 36.9 C 77 18 156/71 H 94 Room Air 11/22/22 12:08 36.9 C 77 18 158/70 H 94 Room Air PG Care Time/CCT Total # of Minutes Spent Total Time Spent with Patient: Total time spent is greater than 50% in coordination of care (as documented) at patient's floor/unit and/or counseling patient: Coding Level of Care Code 90405 SUB INP/OBS CARE 2/35MIN Diagnoses Ischemic ulcer of toe of left foot L97.529 Atrial fibrillation with RVR I48.91 Elevated troponin R77.8 RA (rheumatoid arthritis) M06.9 Hypertension I10 Hypertension type: primary hypertension (5) Hypertension Hypertension type: primary hypertension Qualified Code(s): I10 - Essential (primary) hypertension
--- NOTE | 2022-11-22 22:57 | Orthopedic Progress Note ---
Date of Service November 22, 2022 Assessment & Plan (1) Ischemic ulcer of toe of left foot: Plan: Patient seen, evaluated, and treated. Patient is non weight bearing to left foot. Dry, sterile dressing changed with out incident. Nursing to continue with daily dressing chnages, 4x4, ABD, Kerlix, Son. Patient does require off loading of heel. Will continue to follow while in house. Admission and Anticipated Discharge Date Admission Date: November 18, 2022 Subjective Patient seen at bedside with no complaints. Patient status post day #1 TMA left foot. Pain is controlled. Review of Systems Review of Systems: All systems reviewed & are unremarkable except as noted in Subjective Physical Exam Constitutional: cooperative and comfortable Eyes: normal visual adrian by confrontation Respiratory: normal respiratory effort Skin: + wound (Skin is well co-apted. Sutures intact.) and + eschar (Left heel) Neurologic: moves all extremities Psychiatric: Orientation: oriented to place and oriented to time Results & Data Vital Signs (Past 12 Hours) Vital Signs Temp Pulse Resp BP Pulse Ox O2 Del Method 11/22/22 22:49 36.6 C 77 14 156/69 H 96 Room Air 11/22/22 19:08 36.8 C 79 17 156/79 H 92 Room Air 11/22/22 16:37 36.9 C 77 18 156/71 H 94 Room Air 11/22/22 12:08 36.9 C 77 18 158/70 H 94 Room Air
[2022-11-23] MEDS: MoRPHine SULFATE 2 MG/ML CARP IV PRN ×2 (02:16→23:33)
[2022-11-23] MEDS: MoRPHine SULFATE 4 MG/ML 1 ML CARP\\VIAL IV PRN ×3 (03:46→16:16)
[2022-11-23] MEDS: ACETAMINOPHEN 325 MG TAB PO SCH ×4 (05:49→23:33)
[2022-11-23] MEDS: oxyCODONE HCL IR 5 MG TAB (IMMEDIATE RELEASE) PO PRN ×2 (05:50→11:26)
[2022-11-23] MEDS: FERROUS SULFATE 325 MG TAB PO SCH (07:37)
[2022-11-23] MEDS: APIXABAN 5 MG TABLET PO SCH ×2 (07:37→20:58)
[2022-11-23] MEDS: OXYBUTYNIN CHLORIDE XL 5 MG TABCR PO SCH (07:37)
[2022-11-23] MEDS: SENNA 8.6 MG TAB PO SCH ×2 (07:37→20:58)
[2022-11-23] MEDS: predniSONE 5 MG TAB PO SCH (07:37)
[2022-11-23] MEDS: DULoxetine HCL 30 MG CAP PO SCH (07:37)
[2022-11-23] MEDS: GABAPENTIN 300 MG CAP PO SCH ×3 (07:38→20:58)
[2022-11-23] MEDS: PANTOprazole 40 MG TAB PO SCH ×2 (07:38→20:58)
[2022-11-23] MEDS: DAPTOmycin 300 MG in SYRINGE 0 ML IV SCH (16:16)
[2022-11-23] MEDS: predniSONE 1 MG TAB PO SCH (20:58)
[2022-11-23] MEDS: oxyCODONE HCL 10 MG TABCR (OxyCONTIN) PO SCH (20:58)
--- NOTE | 2022-11-23 21:20 | Hospitalist Progress Note ---
Date of Service November 23, 2022 Assessment & Plan (1) Ischemic ulcer of toe of left foot: Plan: -Acute on chronic concern for infection, unstable high risk follows with Dr. Kelly in Vascular surgery clinic, S/P left SFA stent placement on 11/04, vacular recommended evaluate for amputation left foot due to previous procedures and known broken hardware in the left great toe Doppler 11/11/2022 shows no focal high-grade stenosis or large vessel stenosis, two-vessel runoff to the left foot no flow seen in the peroneal artery but the dorsalis pedis is patent Plain x-ray did not show osteomyelitis -Daptomycin to cover MRSA (previous wound with coag neg staph, urine with Klebsiella) if clinical deterioration happens will consider broadening coverage with gram-negative coverage -Consult Dr. Hill of Podiatry : S/P transmetatarsal amputation on the -Blood cultures currently negative to date -will add oxycontin as patient has required 16 mg of morhpine IV in past [address] on oxycontin 10 mg PO BID. (2) Atrial fibrillation with RVR: Plan: acute on chronic unstable -Takes amiodarone qod eliquis on hold. (3) Elevated troponin: Plan: demand ischemia -Initial high sen trop elevated at but did not trend -Patient is asymptomatic and without acute ST segment or T-wave changes (4) RA (rheumatoid arthritis): Plan: -Has been on chronic prednisone for 40 +years and also on Plaquenil -Will continue prednisone to avoid adrenal insufficiency, hold Plaquenil for now due to possible infection (5) Hypertension: Plan: -Held amlodipine and hydralazine to avoid hypotension, have hydralazine prn will resume amlodipine Admission and Anticipated Discharge Date Admission Date: November 18, 2022 Subjective 72 yo female reports no new symptoms. COntinues to have some pain in her foot. Review of Systems Review of Systems: All systems reviewed & are unremarkable except as noted in HPI & below Physical Exam Physical Exam: Patient is awake alert appropriate cardiac exam is regular there is a systolic murmur lungs are clear without wheezes or crackles abdomen NABS Left foot is covered with dressing. Results & Data Results & Data Vital Signs (Past 12 Hours) Vital Signs Temp Pulse Pulse Resp BP Pulse Ox O2 Del Method 11/23/22 20:10 36.8 C 83 16 164/68 H 95 Room Air 11/23/22 16:00 79 11/23/22 15:21 36.8 C 80 18 167/71 H 92 Room Air 11/23/22 12:07 36.6 C 81 16 169/69 H 96 Room Air PG Care Time/CCT Total # of Minutes Spent Total Time Spent with Patient: Total time spent is greater than 50% in coordination of care (as documented) at patient's floor/unit and/or counseling patient: Coding Level of Care Code 51304 SUB INP/OBS CARE MIN Diagnoses Ischemic ulcer of toe of left foot L97.529 Atrial fibrillation with RVR I48.91 Elevated troponin R77.8 RA (rheumatoid arthritis) M06.9 Hypertension I10 Hypertension type: primary hypertension (5) Hypertension Hypertension type: primary hypertension Qualified Code(s): I10 - Essential (primary) hypertension
--- NOTE | 2022-11-23 23:15 | Orthopedic Progress Note ---
Date of Service November 23, 2022 Assessment & Plan (1) Ischemic ulcer of toe of left foot: Plan: Patient seen, evaluated, and treated. Patient is non weight bearing to left foot. Concern of necrosis at TMA amputation incision site. Dry, sterile dressing changed with out incident. Nursing to continue with daily dressing changes, 4x4, ABD, Kerlix, Son. Will continue to follow while in house. Admission and Anticipated Discharge Date Admission Date: November 18, 2022 Subjective Patient seen at bedside status post Day #2 left TMA. She complains of pain to left foot. 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
[2022-11-24] MEDS: ACETAMINOPHEN 325 MG TAB PO SCH ×2 (05:38→11:57)
[2022-11-24] MEDS: AMIODARONE 200 MG TAB PO SCH (08:41)
[2022-11-24] MEDS: SENNA 8.6 MG TAB PO SCH (08:41)
[2022-11-24] MEDS: FERROUS SULFATE 325 MG TAB PO SCH (08:41)
[2022-11-24] MEDS: APIXABAN 5 MG TABLET PO SCH (08:41)
[2022-11-24] MEDS: GABAPENTIN 300 MG CAP PO SCH ×2 (08:41→14:14)
[2022-11-24] MEDS: PANTOprazole 40 MG TAB PO SCH (08:41)
[2022-11-24] MEDS: DULoxetine HCL 30 MG CAP PO SCH (08:41)
[2022-11-24] MEDS: predniSONE 5 MG TAB PO SCH (08:41)
[2022-11-24] MEDS: OXYBUTYNIN CHLORIDE XL 5 MG TABCR PO SCH (08:42)
[2022-11-24] MEDS: oxyCODONE HCL 10 MG TABCR (OxyCONTIN) PO SCH (08:47)
[2022-11-24] MEDS: MoRPHine SULFATE 4 MG/ML 1 ML CARP\\VIAL IV PRN (09:32)
[2022-11-24] MEDS: DAPTOmycin 300 MG in SYRINGE 0 ML IV SCH (16:22)
== END 2022-11-24 18:26 | disposition home health service (06) | DRG 240 ==
LOC: ED 11:21 → SUATTDRO 14:49 → 4W 14:49

== ENCOUNTER 2022-11-28 13:59 | Inpatient (IN) ==
[2022-11-28] MEDS ORDERED: MoRPHine SULFATE 4 MG/ML 1 ML CARP\\VIAL IV STA ×2 (14:23→15:36)
[2022-11-28] MEDS ORDERED: SODIUM CHLORIDE 0.9% 500 ML IV ONE (14:27)
[2022-11-28] MEDS ORDERED: PIPERACILLIN/TAZOBACTAM 4.5 GM/120 ML BAG IV ONE (14:27)
--- NOTE | 2022-11-28 14:30 | Emergency Department Note ---
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 Patient evidently had transmetatarsal amputation by Dr. Hill of podiatry on 21 November. Has been having pain issues since then and in the office had evaluation today with concerns given how the foot looks that it is becoming necrotic and possibly infected. The patient has diffuse severe pain here refractory to her home pain medication oxycodone. Patient has been Augmentin according to . No fevers reported. No trauma reported. Has been taking her Eliquis. PAST MEDICAL HISTORY: As noted above MEDICATIONS: Reviewed home medication SOCIAL HISTORY: lives at home PHYSICAL EXAM: GENERAL: alert and oriented tearful on bed in room appears uncomfortable in the bed Head: normocephalic and atraumatic EYES: No injection, discharge or icterus. NECK: Trachea midline. ENT: Mucous membranes pink and moist. LUNGS: Airway patent. No retractions or significant work of breathing HEART: Regular rate and rhythm. No chest wall tenderness ABDOMEN: Soft and non-tender, without guarding or rebound. SKIN: Acyanotic, warm, dry, without rashes EXTREMITIES: Right AKA well-appearing, left lower extremity with a transmetatar leonard amputation sutures in place with diffuse area of some necrosis over the plantar flap without significant discharge but with surrounding erythema. No crepitus. NEUROLOGICAL: No focal deficits. No aphasia. No facial droop or slurred speech. EK bpm normal sinus rhythm. No PVC or PAC. Nonspecific T wave changes particularly laterally to inferiorly with some artifact in V5. No ST segment elevation. CONTINUOUS CARDIAC MONITORING: was ordered and showed a heart rate of 90s-100s bpm in normal sinus rhythm to sinus tachycardia PDMP was checked without noted issue. Patient's laboratory studies and imaging reviewed. Differential includes Cellulitis, abscess, MRSA infection, DVT, necrotizing fasciitis, dermatitis, drug eruption, allergic reaction, as well as other pathologies. IMPRESSION/MEDICAL DECISION MAKING: Patient recently status post left toe transmetatarsal amputation now with concerns for necrotic and possibly infected wound with some cellulitis. Patient has been on on Augmentin as an outpatient. Denies fever. Significant pain even with home medications. Seen in the podiatry office referred here with likely need for debridement. Given her anticoagulation use this may not be possible for several days. Dr. Hill wished her to be admitted with IV antibiotics. X- ray and basic labs as well as cultures obtained here. Expanded to Zosyn as well as vancomycin for antibiotic coverage. White blood cell count does return elevated at 20.9. ESR elevated 72. CRP 17. Lactate within normal limits. Does not appear to be in septic shock at this point or severe sepsis. Mild troponin elevation improved from previous. Doubt ACS. X-ray without findings of osteo at this time in the foot. Discussed with the hospitalist for further care here pending further input from podiatry. Given some morphine for pain of the foot as well as 1.75 L of normal saline. DIAGNOSIS: Left foot infection and necrosis status post amputation DISPOSITION: Hospitalist will evaluate Patient was agreeable with this plan. Past Med/Surg History Medical History (Updated 11/28/22 @ 15:39 by Yg Jim M.D.) Acute bronchitis Acute respiratory failure with hypoxia Chronic back pain Chronic steroid use Closed fracture of coccyx Constipation due to opioid therapy DDD (degenerative disc disease) Encounter for pre-operative examination GI bleed HOSPITALIZED 02/24/22 AT [facility] (ELIQUIS ON HOLD) Hip dislocation, left RECENT DX (CAN LAY ON LEFT SIDE ONLY) History of coronary angiogram Right Lower Extremity Arteriogram, Percutaneous Transluminal Angioplasty and Stenting of Right Superficial Femoral Artery History of COVID-19 hospitalized 07/16/20 [facility]. hypoxia, fever, cough, chills, loss of taste/ smell. RESOLVED History of Hodgkin's lymphoma 2003/under surveillance by PCP/Dr. Thibodeaux- S/p chemo in 2003- none since History of oral cancer s/p tongue excision left side (no chemo/no XRT 2013) No issues since Hypertension Hypomagnesemia Junctional bradycardia Overactive bladder PAD (peripheral artery disease) PAF (paroxysmal atrial fibrillation) hx - on Eliquis Paroxysmal SVT (supraventricular tachycardia) hx (follows with Dr. Vance) Peripheral arterial disease RA (rheumatoid arthritis) on chronic steroid Skin benign neoplasm Surgical History H/O foot surgery TOES X MULTIPLE H/O parathyroidectomy History of above knee amputation RT>NO PROSTHETIC (USING W/C) History of biopsy Of soft tissue of the neck History of breast surgery Puncture aspiration of cyst History of carpal tunnel release RIGHT History of cataract surgery both eye one on 09/08/22 and the other 09/23/22 History of colonoscopy History of colposcopy with cervical biopsy with endocervical curettage History of glossectomy with unilateral radical neck dissection History of hip surgery R/L REVISION Left MAURO revision: 11/09/18: SABx1 at L3-L4 at [facility] MULTIPLE HIP SURGERIES History of right above knee amputation (11/14/21) Right Above Knee Amputation(Right) - Manuel Baeza MD, FACS History of spinal surgery 10/02/[address] [facility] [address] Sanford>LUMBAR AREA History of total hip arthroplasty R/L History of total knee replacement R/L History of tubal ligation Hx of hand surgery RIGHT Hx of knee surgery MULTIPLE SURGERIES ON RT LEG Right TKA revision, I&D, antibiotic spacer: 12/29/19: SAB + PNB at [facility] PONV (postoperative nausea and vomiting) S/P revision of total knee 12/29/19 Dr. Ihsan Vela- Right total knee revision, Incision and drainage with antibiotic cement spacer Family History Mother Breast cancer Colorectal cancer Cancer Gastric cancer Aunt Colorectal cancer Other Family history non-contributory No family history of adverse response to anesthesia Denies family history of Ovarian cancer Prostate cancer Myocardial infarction Social History Smoking Status: Never smoker Second Hand Exposure: No; Do You Dip or Chew Tobacco: No; Hx Alcohol Use: No Hx Substance Use: No Preferred Language: Arabic Communication Ability: Effective Visual Impairment: No Limitations 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: Normal Policy Writer Required: No Beliefs That Will Affect Care: None marital status: Current Living Situation: Spouse current occupational status: retired How many Children do You have: 1 Feels Safe at Home: Yes Childhood Exposure to Second-Hand Smoke: Yes Diet: regular caffeine: Yes Dental Care, Regularly: Yes Physical Activity Frequency: Other Physical Activity Frequency Comment: Limited by a physical condition Seatbelt Use: always Sunscreen Use: Yes Assistive Devices: Wheelchair Allergies Allergies Allergy/AdvReac Type Severity Reaction Status Date / Time dalbavancin Allergy Severe hypotension, Verified 11/28/22 15:37 flushing, tachypnea Home Meds Home Medications Medication Instructions Recorded Confirmed lactobacillus combination no.4 3 3,000 mmu cells PO QAM 03/30/18 11/28/22 billion cell capsule (Probiotic) cranberry 500 mg capsule 500 mg PO QPM 09/29/18 11/28/22 calcium carbonate 600 mg-vitamin 1 cap PO BID 07/16/20 11/28/22 D3 5 mcg (200 unit) capsule (Calcium 600 + D(3)) Previous Rx's Medication Instructions Recorded meclizine 25 mg tablet 25 mg PO BID PRN dizziness #20 tabs 07/26/21 duloxetine 30 mg capsule,delayed 30 mg PO DAILY #90 caps 12/30/21 release calcitriol 0.5 mcg capsule 0.5 mcg PO 2XWK #30 caps 03/05/22 (Rocaltrol) apixaban 5 mg tablet (Eliquis) 5 mg PO BID #180 tabs 05/19/22 omeprazole 20 mg capsule,delayed 20 mg PO BID #180 caps 05/27/22 release prednisone 1 mg tablet 1 mg PO QPM #90 tabs 06/10/22 prednisone 5 mg tablet 5 mg PO QAM #90 tabs 06/10/22 gabapentin 300 mg capsule 300 mg PO TID 90 days #270 caps 07/01/22 amlodipine 5 mg tablet 5 mg PO DAILY #90 tabs 07/21/22 ferrous sulfate 325 mg (65 mg 325 mg PO QAM #90 tabs 08/01/22 iron) tablet oxybutynin chloride 15 mg 15 mg PO DAILY #90 tabs 09/01/22 tablet,extended release 24 hr leflunomide 20 mg tablet (Arava) 20 mg PO QAM #90 tabs 09/03/22 amiodarone 200 mg tablet 200 mg PO Q2D #90 tabs 09/09/22 hydroxychloroquine 200 mg tablet 200 mg PO DAILY #90 tabs 10/16/22 (Plaquenil) hydralazine 25 mg tablet 25 mg PO TID #270 tabs 11/11/22 acetaminophen 325 mg tablet 650 mg PO Q6H 2 weeks #112 tabs 11/24/22 amoxicillin 875 mg-potassium 1 tab PO BID #20 tabs 11/24/22 clavulanate 125 mg tablet oxycodone 10 mg tablet,crush 10 mg PO BID #20 tabs 11/24/22 resistant,extended release 12 hr (OxyContin) oxycodone 5 mg tablet 5 mg PO Q6H PRN breakthrough pain 11/24/22 #20 tabs polyethylene glycol 3350 17 gram 17 g PO DAILY #14 ea 11/24/22 oral powder packet (Miralax) sennosides 8.6 mg capsule 8.6 mg PO BID #30 caps 11/24/22 Results & Data (ED) Vital Signs Vital Signs - 24 hr 11/28/22 14:02 11/28/22 15:19 11/28/22 15:30 Temperature 36.6 C Temperature Source Temporal Artery Scan Pulse Rate 95 H 100 H 103 H Pulse Rate from SpO2 Sensor 104 H Respiratory Rate 20 21 Respiratory Effort / Characteristics Non-Labored Respiratory Depth Normal Blood Pressure 151/67 H Blood Pressure Mean 95 Pulse Oximetry 98 100 Oxygen Delivery Method Room Air Sepsis Recent Fever Within 48 Hours No Sepsis New/Unexplained Change in Mental Status N/A Sepsis Action Taken by Nursing No Action Required 11/28/22 16:08 Temperature Temperature Source Pulse Rate 94 H Pulse Rate from SpO2 Sensor 94 H Respiratory Rate 27 H Respiratory Effort / Characteristics Respiratory Depth Blood Pressure 137/60 Blood Pressure Mean 85 Pulse Oximetry 100 Oxygen Delivery Method Sepsis Recent Fever Within 48 Hours Sepsis New/Unexplained Change in Mental Status Sepsis Action Taken by Nursing Laboratory Data 11/28/22 15:04 11/28/22 15:04 Lab Results 11/28/22 11/28/22 11/28/22 Range/Units 15:04 15:04 15:04 WBC 20.97 H (4.8-10.8) K/ul RBC 3.09 L (4.20-5.40) M/uL Hgb 9.2 L (12.0-16.0) g/dl Hct 28.4 L (37.0-47.0) % MCV 91.9 (80.0-100.0) fL MCH 29.8 (25.0-34.0) pg MCHC 32.4 (32.0-36.0) g/dL RDW Std Deviation 47.8 H (36.4-46.3) fL RDW Coeff of Jarvis 14.3 (11.5-14.5) % Plt Count 393 (130-400) K/uL MPV 9.5 (9.4-12.4) fL Immature Gran % (Auto) 1.2 % Neut % (Auto) 83.7 % Lymph % (Auto) 5.8 % Marion % (Auto) 8.0 % Eos % (Auto) 0.8 % Baso % (Auto) 0.5 % Neut # (Auto) 17.58 H (1.40-6.50) K/uL Lymph # (Auto) 1.21 (1.2-3.4) K/uL Marion # (Auto) 1.67 H (0.11-0.59) K/uL Eos # (Auto) 0.16 (0-0.50) K/uL Baso # (Auto) 0.10 (0-0.2) K/uL Immature Gran # (Auto) 0.25 H (0.01-0.20) K/uL ESR (0-30) mm/hr Sodium 134 L (136-145) mmol/L Potassium 4.6 (3.5-5.1) mmol/L Chloride 102 (98-107) mmol/L Carbon Dioxide 24 (21-32) mmol/L Anion Gap 8 (3-11) BUN 14 (6-23) mg/dl Creatinine 0.84 (0.6-1.2) mg/dl Est Cr Clr Drug Dosing Not Reportable Est GFR ( Amer) 79.4 ml/min Est GFR (Non-Af Amer) 68.5 ml/min BUN/Creatinine Ratio 16.7 (10-20) Glucose 90 (70-99(Fasting)) mg/dl Lactate (0.4-2.0) mmol/L Calcium 9.3 (8.6-10.3) mg/dl Magnesium 1.7 (1.7-2.4) mg/dl Total Bilirubin 0.7 (0.2-1.0) mg/dl AST 21 (13-39) U/L ALT 15 (7-52) U/L Alkaline Phosphatase 221 H (34-104) U/L Troponin I High Sens 41.8 H (0-14) pg/ml C-Reactive Protein 17.10 H (0-0.5) mg/dl Total Protein 6.1 (6.0-8.3) gm/dl Albumin 3.1 L (3.4-5.0) gm/dl Globulin 3.0 (2.5-4.0) gm/dl Albumin/Globulin Ratio 1.0 (0.9-2) Procalcitonin 0.36 (0-0.5) ng/ml SARS-CoV-2, RNA, NAAT (NEGATIVE) 11/28/22 11/28/22 11/28/22 Range/Units 15:11 15:11 Unknown WBC (4.8-10.8) K/ul RBC (4.20-5.40) M/uL Hgb (12.0-16.0) g/dl Hct (37.0-47.0) % MCV (80.0-100.0) fL MCH (25.0-34.0) pg MCHC (32.0-36.0) g/dL RDW Std Deviation (36.4-46.3) fL RDW Coeff of Jarvis (11.5-14.5) % Plt Count (130-400) K/uL MPV (9.4-12.4) fL Immature Gran % (Auto) % Neut % (Auto) % Lymph % (Auto) % Marion % (Auto) % Eos % (Auto) % Baso % (Auto) % Neut # (Auto) (1.40-6.50) K/uL Lymph # (Auto) (1.2-3.4) K/uL Marion # (Auto) (0.11-0.59) K/uL Eos # (Auto) (0-0.50) K/uL Baso # (Auto) (0-0.2) K/uL Immature Gran # (Auto) (0.01-0.20) K/uL ESR 72 H (0-30) mm/hr Sodium (136-145) mmol/L Potassium (3.5-5.1) mmol/L Chloride (98-107) mmol/L Carbon Dioxide (21-32) mmol/L Anion Gap (3-11) BUN (6-23) mg/dl Creatinine (0.6-1.2) mg/dl Est Cr Clr Drug Dosing Est GFR ( Amer) ml/min Est GFR (Non-Af Amer) ml/min BUN/Creatinine Ratio (10-20) Glucose (70-99(Fasting)) mg/dl Lactate 1.5 (0.4-2.0) mmol/L Calcium (8.6-10.3) mg/dl Magnesium (1.7-2.4) mg/dl Total Bilirubin (0.2-1.0) mg/dl AST (13-39) U/L ALT (7-52) U/L Alkaline Phosphatase (34-104) U/L Troponin I High Sens (0-14) pg/ml C-Reactive Protein (0-0.5) mg/dl Total Protein (6.0-8.3) gm/dl Albumin (3.4-5.0) gm/dl Globulin (2.5-4.0) gm/dl Albumin/Globulin Ratio (0.9-2) Procalcitonin (0-0.5) ng/ml SARS-CoV-2, RNA, NAAT NEGATIVE (NEGATIVE) Administered Medications Vancomycin HCl 1,000 mg/ (Sodium Chloride) 520 mls @ 200 mls/hr IV NOW ONE Stop: 11/28/22 18:10 Last Admin: 11/28/22 16:02 Dose: 200 mls/hr Documented By: DANE Discontinued Medications Piperacillin Sod/Tazobactam Sod (Zosyn) 4.5 gm in 120 mls @ 240 mls/hr IV NOW ONE Stop: 11/28/22 14:56 Last Infusion: 11/28/22 16:00 Dose: 0 mls/hr Documented By: Admin: 11/28/22 15:18 Dose: 240 mls/hr Documented By: DANE Sodium Chloride (Nss) 500 mls @ 999 mls/hr IV .Q31M ONE Stop: 11/28/22 14:57 Last Infusion: 11/28/22 16:13 Dose: 0 mls/hr Documented By: Admin: 11/28/22 15:18 Dose: 999 mls/hr Documented By: DANE Sodium Chloride (Nss 1000ml) 250 mls @ 999 mls/hr IV .Q16M ONE Stop: 11/28/22 15:51 Last Admin: 11/28/22 16:13 Dose: 999 mls/hr Documented By: NRB Morphine Sulfate (Morphine Sulfate 4 Mg/Ml 1 Ml Carp\Vial) 4 mg IV NOW STA Stop: 11/28/22 14:24 Last Admin: 11/28/22 15:15 Dose: 4 mg Documented By: NRB Morphine Sulfate (Morphine Sulfate 4 Mg/Ml 1 Ml Carp\Vial) 4 mg IV NOW STA Stop: 11/28/22 15:37 Last Admin: 11/28/22 16:01 Dose: 4 mg Documented By: NRB Imaging Data Radiologist's Impression: Foot X-Ray 11/28/22 14:19 XR foot LT min 3V routine CLINICAL HISTORY: recent surgery, necrotic?/pain TECHNIQUE: 3 views of the left foot were obtained. Comparison: Comparison is made to foot radiographs 11/18/2022 FINDINGS: Patient is status post mid metatarsal amputation of the foot. Extensive degenerative changes are seen. No erosions are seen. Vascular calcifications are noted. IMPRESSION: No radiographic evidence of osteomyelitis. If clinical concern remains, MRI is a more sensitive modality. Mid metatarsal amputation is seen. ACT 112: Negative or not required by law. Electronically signed by: Hai Weems M.D. 11/28/2022 3:26 PM Discharge Plan Visit Data Chief Complaint: Foot Injury/Pain Stated Complaint: FOOT NEEDS LOOKED AT ED Provider: Yg Jim Discharge Problem: Cellulitis of left foot Patient Disposition: Being Evaluated by Hospitalist Forms Stand Alone Forms: [facility] Prescriptions Prescriptions: No Action meclizine 25 mg tablet 25 mg PO BID PRN (Reason: dizziness) Qty: 20 0RF duloxetine 30 mg capsule,delayed release(DR/EC) 30 mg PO DAILY Qty: 90 3RF Patient Comments: QAM Eliquis 5 mg tablet 5 mg PO BID Qty: 180 3RF omeprazole 20 mg capsule,delayed release(DR/EC) 20 mg PO BID Qty: 180 3RF prednisone 5 mg tablet 5 mg PO QAM Qty: 90 1RF prednisone 1 mg tablet 1 mg PO QPM Qty: 90 1RF gabapentin 300 mg capsule 300 mg PO TID 90 Days Qty: 270 1RF ferrous sulfate 325 mg (65 mg iron) tablet 325 mg PO QAM Qty: 90 1RF leflunomide [Arava] 20 mg tablet 20 mg PO QAM Qty: 90 0RF amiodarone 200 mg tablet 200 mg PO Q2D Qty: 90 1RF Patient Comments: QAM hydralazine 25 mg tablet 25 mg PO TID Qty: 270 1RF calcitriol [Rocaltrol] 0.5 mcg capsule 0.5 mcg PO 2XWK Qty: 30 3RF Rx Instructions: Mondays and Fridays oxybutynin chloride 15 mg tablet extended release 24hr 15 mg PO DAILY Qty: 90 1RF Patient Comments: QPM hydroxychloroquine [Plaquenil] 200 mg tablet 200 mg PO DAILY Qty: 90 0RF amlodipine 5 mg tablet 5 mg PO DAILY Qty: 90 3RF Probiotic 3 billion cell Capsule 3,000 mmu cells PO QAM cranberry 500 mg Capsule 500 mg PO QPM Calcium 600 + D(3) 600 mg calcium- 200 unit Capsule 1 cap PO BID acetaminophen 325 mg Tablet 650 mg PO Q6H 14 Days Qty: 112 0RF oxycodone 5 mg Tablet 5 mg PO Q6H PRN (Reason: breakthrough pain) Qty: 20 0RF oxycodone [OxyContin] 10 mg Tablet,Oral Only,Ext.Rel.12 Hr 10 mg PO BID Qty: 20 0RF amoxicillin-pot clavulanate 875-125 mg tablet 1 tab PO BID Qty: 20 0RF Rx Instructions: STARTED 11/25/22 FOR 10 DAYS. sennosides 8.6 mg capsule 8.6 mg PO BID Qty: 30 0RF polyethylene glycol 3350 [Miralax] 17 gram powder in packet 17 g PO DAILY Qty: 14 0RF Referrals Referrals: Sylvia Nails MD [Primary Care Provider] -
--- NOTE | 2022-11-28 15:05 | Electrocardiogram Report ---
Test Reason : Blood Pressure : / mmHG Vent. Rate : 095 BPM Atrial Rate : 095 BPM P-R Int : 178 ms QRS Dur : 072 ms QT Int : 326 ms P-R-T Axes : 079 019 091 degrees QTc Int : 409 ms Normal sinus rhythm Septal infarct (cited on or before 28-NOV-2022) Abnormal ECG When compared with ECG of 18-NOV-2022 12:10, Sinus rhythm has replaced Atrial fibrillation Non-specific change in ST segment in Inferior leads Nonspecific T wave abnormality no longer evident in Inferior leads T wave inversion more evident in Lateral leads Confirmed by Edd Vance ([id number]) on 11/28/2022 3:05:34 PM Referred By: Confirmed By:Edd Vance
--- NOTE | 2022-11-28 15:27 | XRay Report ---
XR foot LT min 3V routine CLINICAL HISTORY: recent surgery, necrotic?/pain TECHNIQUE: 3 views of the left foot were obtained. Comparison: Comparison is made to foot radiographs 11/18/2022 FINDINGS: Patient is status post mid metatarsal amputation of the foot. Extensive degenerative changes are seen . No erosions are seen. Vascular calcifications are noted. IMPRESSION: No radiographic evidence of osteomyelitis. If clinical concern remains, MRI is a more sensitive modal ity. Mid metatarsal amputation is seen. ACT 112: Negative or not required by law. Electronically signed by: Hai Weems M.D. 11/28/2022 3:26 PM
[2022-11-28 15:30] LABS: Basophils % (auto) 0.5 %; Eosinophils # (auto) 0.16 K/uL (0-0.50); Eosinophils % (auto) 0.8 %; Hematocrit (blood only) 28.4 % (37.0-47.0); Hemoglobin 9.2 g/dl (12.0-16.0); Immature Granulocytes # (auto) 0.25 K/uL (0.01-0.20); Immature Granulocytes % (auto) 1.2 %; Lymphocytes # (auto) 1.21 K/uL (1.2-3.4); Lymphocytes % (auto) 5.8 %; Mean Corpuscular Hemoglobin 29.8 pg (25.0-34.0); Mean Corpuscular Hgb Conc 32.4 g/dL (32.0-36.0); Mean Corpuscular Volume 91.9 fL (80.0-100.0); Mean Platelet Volume 9.5 fL (9.4-12.4); Monocytes # (auto) 1.67 K/uL (0.11-0.59); Neutrophils # (auto) 17.58 K/uL (1.40-6.50); Neutrophils % (auto) 83.7 %; Platelet Count 393 K/uL (130-400); RDW Coefficient of Variation 14.3 % (11.5-14.5); RDW Standard Deviation 47.8 fL (36.4-46.3); Red Blood Count 3.09 M/uL (4.20-5.40); White Blood Count 20.97 K/ul (4.8-10.8)
[2022-11-28] MEDS ORDERED: VANCOMYCIN HCL 1,000 MG in SODIUM CHLORIDE 0.9% 500 ML IV ONE (15:35)
[2022-11-28] MEDS ORDERED: VANCOMYCIN CONSULT ACTIVE PRN (15:35)
[2022-11-28] MEDS ORDERED: SODIUM CHLORIDE 0.9% 1000ML 250 ML IV ONE (15:36)
[2022-11-28 15:47] LABS: Alanine Aminotransferase 15 U/L (7-52); Albumin Level 3.1 gm/dl (3.4-5.0); Alkaline Phosphatase 221 U/L (34-104); Anion Gap 8 (3-11); Aspartate Aminotransferase 21 U/L (13-39); BUN Creatinine Ratio 16.7 (10-20); Bilirubin,Total 0.7 mg/dl (0.2-1.0); Blood Urea Nitrogen 14 mg/dl (6-23); Calcium 9.3 mg/dl (8.6-10.3); Carbon Dioxide 24 mmol/L (21-32); Chloride 102 mmol/L (98-107); Est GFR (African American) 79.4 ml/min; Est GFR (Non-African American) 68.5 ml/min; Glucose 90 mg/dl (70-99(Fasting)); Potassium 4.6 mmol/L (3.5-5.1); Sodium 134 mmol/L (136-145); Total Protein 6.1 gm/dl (6.0-8.3)
[2022-11-28 15:52] LABS: Troponin I High Sensitivity 41.8 pg/ml (0-14)
--- NOTE | 2022-11-28 16:04 | History & Physical Report ---
Date of Service November 28, 2022 Assessment & Plan (1) Cellulitis of left foot: Plan: s/p Left Foot Transmetatarsal Amputation 11/21 Vancomycin + Zosyn Follow up blood cultures Hold immunosuppressants Arava and Plaquenil US arterial doppler to rule out acute thrombus MRI foot to rule out osteomyelitis Consult Dr Hill for I&D with cultures - apixaban on hold for this procedure either tomorrow or Thursday, NPO after midnight in case of procedure tomorrow (2) PAD (peripheral artery disease): Plan: s/p She underwent arteriogram of Left Lower Extremity with percutaneous Transluminal Angioplasty and Stenting of Left Superficial Femoral Artery on November 04. Repeat US arterial doppler as above Restart Eliquis when able (3) Diabetic wet gangrene of the foot: (4) PAF (paroxysmal atrial fibrillation): Plan: In NSR on admission Anticoagulation on hold for surgery Continue amiodarone for rhythm control (5) Hypertension: Plan: Continue hydralazine, amlodipine (6) Overactive bladder: Plan: Continue oxybutynin (7) RA (rheumatoid arthritis): Plan: Hold Arava and Plaquenil given current infection and RA well controlled Continue chronic prednisone Plan VTE Prophylaxis - Restart Eliquis when ok from surgical perspeective Diet - heart healthy Disposition - admit to med/tele Admission and Anticipated Discharge Date Admission Date: November 28, 2022 History of Present Illness Chief Complaint: Left foot infection Primary Care Provider: Sylvia Nails MD Jacklyn Esparza is a 72 year old female who presents to the 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 She received daptomycin during her inpatient stay for her ulcer and was discharged on Augmentin. Blood cultures were negative. Ankle surface culture from her ankle in September grew coag negative staph although no surface culture present from last admission. Reportedly after discharge her foot has become increasingly painful and necrotic since discharge. No fever or chills. No change in temperature of her foot. Foot pain severity 10/10 on arrival to the ER, currently 8/10. She underwent arteriogram of Left Lower Extremity with percutaneous Transluminal Angioplasty and Stenting of Left Superficial Femoral Artery on November 04. Repeat a rterial US following this procedure showed no focal / high grade large vessel stenosis. Allergies Allergy/AdvReac Type Severity Reaction Status Date / Time jose evancin Allergy Severe hypotension, Verified 11/28/22 15:37 flushing, tachypnea Home Medications Medication Instructions Recorded Confirmed Type lactobacillus combination no.4 3 3,000 mmu cells PO QAM 03/30/18 11/28/22 History billion cell capsule (Probiotic) cranberry 500 mg capsule 500 mg PO QPM 09/29/18 11/28/22 History calcium carbonate 600 mg-vitamin 1 cap PO BID 07/16/20 11/28/22 History D3 5 mcg (200 unit) capsule (Calcium 600 + D(3)) meclizine 25 mg tablet 25 mg PO BID PRN dizziness #20 tabs 07/26/21 11/28/22 Rx duloxetine 30 mg capsule,delayed 30 mg PO DAILY #90 caps 12/30/21 11/28/22 Rx release calcitriol 0.5 mcg capsule 0.5 mcg PO 2XWK #30 caps 03/05/22 11/28/22 Rx (Rocaltrol) apixaban 5 mg tablet (Eliquis) 5 mg PO BID #180 tabs 05/19/22 11/28/22 Rx omeprazole 20 mg capsule,delayed 20 mg PO BID #180 caps 05/27/22 11/28/22 Rx release prednisone 1 mg tablet 1 mg PO QPM #90 tabs 06/10/22 11/28/22 Rx prednisone 5 mg tablet 5 mg PO QAM #90 tabs 06/10/22 11/28/22 Rx gabapentin 300 mg capsule 300 mg PO TID 90 days #270 caps 07/01/22 11/28/22 Rx amlodipine 5 mg tablet 5 mg PO DAILY #90 tabs 07/21/22 11/28/22 Rx ferrous sulfate 325 mg (65 mg 325 mg PO QAM #90 tabs 08/01/22 11/28/22 Rx iron) tablet oxybutynin chloride 15 mg 15 mg PO DAILY #90 tabs 09/01/22 11/28/22 Rx tablet,extended release 24 hr leflunomide 20 mg tablet (Arava) 20 mg PO QAM #90 tabs 09/03/22 11/28/22 Rx amiodarone 200 mg tablet 200 mg PO Q2D #90 tabs 09/09/22 11/28/22 Rx hydroxychloroquine 200 mg tablet 200 mg PO DAILY #90 tabs 04/13/23 05/26/23 Rx (Plaquenil) hydralazine 25 mg tablet 25 mg PO TID #270 tabs 11/11/22 11/28/22 Rx acetaminophen 325 mg tablet 650 mg PO Q6H 2 weeks #112 tabs 11/24/22 11/28/22 Rx amoxicillin 875 mg-potassium 1 tab PO BID #20 tabs 11/24/22 11/28/22 Rx clavulanate 125 mg tablet oxycodone 10 mg tablet,crush 10 mg PO BID #20 tabs 11/24/22 11/28/22 Rx resistant,extended release 12 hr (OxyContin) oxycodone 5 mg tablet 5 mg PO Q6H PRN breakthrough pain 11/24/22 11/28/22 Rx #20 tabs polyethylene glycol 3350 17 gram 17 g PO DAILY #14 ea 11/24/22 11/28/22 Rx oral powder packet (Miralax) sennosides 8.6 mg capsule 8.6 mg PO BID #30 caps 11/24/22 11/28/22 Rx Past Med/Surg History Medical History (Updated 11/28/22 @ 20:41 by Tang Henry MD) Acute bronchitis Acute respiratory failure with hypoxia Chronic back pain Chronic steroid use Closed fracture of coccyx Constipation due to opioid therapy DDD (degenerative disc disease) Encounter for pre-operative examination GI bleed HOSPITALIZED 02/24/22 AT [place] (ELIQUIS ON HOLD) Hip dislocation, left RECENT DX (CAN LAY ON LEFT SIDE ONLY) History of coronary angiogram Right Lower Extremity Arteriogram, Percutaneous Transluminal Angioplasty and Stenting of Right Superficial Femoral Artery History of COVID-19 hospitalized 07/16/20 [facility]. hypoxia, fever, cough, chills, loss of taste/smell. RESOLVED History of Hodgkin's lymphoma 2003/under surveillance by PCP/Dr. Thibodeaux- S/p chemo in 2003- none since History of oral cancer s/p tongue excision left side (no chemo/no XRT 2013) No issues since Hypertension Hypomagnesemia Junctional bradycardia Overactive bladder PAD (peripheral artery disease) PAF (paroxysmal atrial fibrillation) hx - on Eliquis Paroxysmal SVT (supraventricular tachycardia) hx (follows with Dr. Vance) Peripheral arterial disease RA (rheumatoid arthritis) on chronic steroid Skin benign neoplasm Surgical History H/O foot surgery TOES X MULTIPLE H/O parathyroidectomy History of above knee amputation RT>NO PROSTHETIC (USING W/C) History of biopsy Of soft tissue of the neck History of breast surgery Puncture aspiration of cyst History of carpal tunnel release RIGHT History of cataract surgery both eye one on 09/08/22 and the other 09/23/22 History of colonoscopy History of colposcopy with cervical biopsy with endocervical curettage History of glossectomy with unilateral radical neck dissection History of hip surgery R/L REVISION Left MAURO revision: 11/09/18: SABx1 at L3-L4 at [facility] MULTIPLE HIP SURGERIES History of right above knee amputation (11/14/21) Right Above Knee Amputation(Right) - Manuel Baeza MD, FACS History of spinal surgery 10/02/20 [facility] Dr. Sanford>LUMBAR AREA History of total hip arthroplasty R/L History of total knee replacement R/L History of tubal ligation Hx of hand surgery RIGHT Hx of knee surgery MULTIPLE SURGERIES ON RT LEG Right TKA revision, I&D, antibiotic spacer: 12/29/19: SAB + PNB at [facility] PONV (postoperative nausea and vomiting) S/P revision of total knee 12/29/19 Dr. Ihsan Vela- Right total knee revision, Incision and drainage with antibiotic cement spacer Family History Mother Breast cancer Colorectal cancer Cancer Gastric cancer Aunt Colorectal cancer Other Family history non-contributory No family history of adverse response to anesthesia Denies family history of Ovarian cancer Prostate cancer Myocardial infarction Social History Smoking Status: Never smoker Second Hand Exposure: No; Do You Dip or Chew Tobacco: No; Hx Alcohol Use: No Hx Substance Use: No Preferred Language: Jordanian Communication Ability: Effective Visual Impairment: No Limitations 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: Normal Fire Safety Inspector Required: No Beliefs That Will Affect Care: None marital status: Current Living Situation: Spouse current occupational status: retired How many Children do You have: 1 Feels Safe at Home: Yes Safety Concerns: Feels Safe At This Time Childhood Exposure to Second-Hand Smoke: Yes Diet: regular caffeine: Yes Dental Care, Regularly: Yes Physical Activity Frequency: Other Physical Activity Frequency Comment: Limited by a physical condition Seatbelt Use: always Sunscreen Use: Yes Assistive Devices: Glasses, Prosthesis and Walker Review of Systems Review of Systems: All systems reviewed & are unremarkable except as noted in HPI & below Physical Exam Constitutional: WD/WN, vitals as above Respiratory: normal respiratory effort, lungs clear to auscultation Cardiovascular: Rate/Rhythm: regular rate and regular rhythm Heart Sounds: no murmur Gastrointestinal (Abdomen): normal bowel sounds, soft, nontender, no hepatosplenomegaly Skin: Necrotic black skin surrounding sutures on left transmetatarsal amputation with underlying fluctuance, erythema and swelling from necrotic area to ankle Neurologic: moves all extremities and awake; not confused Psychiatric: A+Ox3, euthymic affect Results & Data Results & Data Vital Signs (Past 12 Hours) Vital Signs Temp Pulse Resp BP Pulse Ox O2 Del Method 11/28/22 15:19 100 H 11/28/22 14:02 36.6 C 95 H 20 151/67 H 98 Room Air Laboratory Results Abnormal lab results 11/28/22 11/28/22 11/28/22 Range/Units 15:04 15:04 15:11 WBC 20.97 H (4.8-10.8) K/ul RBC 3.09 L (4.20-5.40) M/uL Hgb 9.2 L (12.0-16.0) g/dl Hct 28.4 L (37.0-47.0) % RDW Std Deviation 47.8 H (36.4-46.3) fL Neut # (Auto) 17.58 H (1.40-6.50) K/uL Cobb # (Auto) 1.67 H (0.11-0.59) K/uL Immature Gran # (Auto) 0.25 H (0.01-0.20) K/uL ESR 72 H (0-30) mm/hr Sodium 134 L (136-145) mmol/L Alkaline Phosphatase 221 H (34-104) U/L Troponin I High Sens 41.8 H (0-14) pg/ml C-Reactive Protein 17.10 H (0-0.5) mg/dl Albumin 3.1 L (3.4-5.0) gm/dl Diagnostic Findings XR foot LT min 3V routine CLINICAL HISTORY: recent surgery, necrotic?/pain TECHNIQUE: 3 views of the left foot were obtained. Comparison: Comparison is made to foot radiographs 11/18/2022 FINDINGS: Patient is status post mid metatarsal amputation of the foot. Extensive de generative changes are seen. No erosions are seen. Vascular calcifications are noted. IMPRESSION: No radiographic evidence of osteomyelitis. If clinical concern remains, MRI is a more sensitive modality. Mid metatarsal amputation is seen. Medications Administered ER Medications Given: Vancomycin 1000mg IV Morphine 4mg IV Zosyn 4.5g IV NSS 500ml bolus Morphine 4mg IV NSS 250ml bolus ECG Rate (beats per minute): 95 Rhythm: normal sinus Findings: + nonspecific-ST abn (Inferior) and + T-wave inversion (Lateral) Comparison ECG Date: from (November 18, 2022) Change: the following changes noted (SR replaced audrey borges) Code Status & VTE Plan Code Status Full VTE Prophylaxis Plan VTE Prophylaxis will be ordered: Yes PG Care Time/CCT Total # of Minutes Spent Total Time Spent with Patient: Total time spent is greater than 50% in coordination of care (as documented) at patient's floor/unit and/or counseling patient: Coding Level of Care Code 42055 INT INP/OBS CARE 375MIN Diagnoses Cellulitis of left foot L03.116 PAD (peripheral artery disease) I73.9 Diabetic wet gangrene of the foot E11.52 PAF (paroxysmal atrial fibrillation) I48.0 Hypertension I10 Hypertension type: primary hypertension Overactive bladder N32.81 RA (rheumatoid arthritis) M06.9 (5) Hypertension Hypertension type: primary hypertension Qualified Code(s): I10 - Essential (primary) hypertension
[2022-11-28 16:39] LABS: Magnesium 1.7 mg/dl (1.7-2.4)
[2022-11-28] MEDS: HYDROmorphone INJ 0.5 MG/0.5 ML SYR IV PRN ×2 (19:13→22:18)
--- NOTE | 2022-11-28 19:18 | Ultrasound Report ---
US arterial duplex LE CLINICAL HISTORY: left foot cellulitis, known ischemic foot disease TECHNIQUE: Real-time grayscale and color and spectral Doppler ultrasound imaging of the left lower ex tremity arteries was performed. Measurements calculated based on NASCET criteria. COMPARISON: None available at the time of this dictation. FINDINGS: LEFT: Common femoral artery: Triphasic waveforms. Peak systolic velocity (PSV) 138 cm/s. Deep femoral artery: Triphasic waveforms. PSV 193 cm/s. Superficial femoral artery: Triphasic waveforms. PSV 147 cm/s. Popliteal artery: Triphasic waveforms. PSV 45 cm/s. Anterior tibial artery: Monophasic waveforms. PSV 60 cm/s. Posterior tibial artery: Monophasic waveforms. PSV 54 cm/s. Peroneal artery: Monophasic waveforms. PSV 123 cm/s. Dorsalis pedis: Monophasic waveforms. PSV 127 cm/s. Reference ranges: Normal Ankle/Brachial Index (MISHEL) 1.0-1.4; 0.91-0.99 borderline; < or = 0.9 abnormal (0.7-0.89 mild, 0.51-0.69 moderate, < or = 0.5 severe peripheral arterial disease). Normal Toe/Brachial Index (TBI) > or = 0.6; < 0.6 abnormal (0.34-0.59 mild, 0.12-0.34 moderate, < or = 0.11 severe peripheral arterial disease). IMPRESSION: Monophasic waveforms and elevated velocities in the distal peroneal and dorsalis pedis arteries sheila tible with peripheral vascular disease. Compared to the prior exam, the peroneal artery is visualized and found to be patent. ACT 112: Negative or not required by law. Electronically signed by: Hai Weems M.D. 11/28/2022 7:16 PM
[2022-11-28 19:24] LABS: INR 1.2 (0.9-1.1); Prothrombin Time 12.5 Seconds (9.0-12.0)
[2022-11-28] MEDS ORDERED: NON-FORMULARY MEDICATION (Cranberry 500 mg Capsule) PO SCH (21:00)
[2022-11-28] MEDS: oxyCODONE HCL 10 MG TABCR (OxyCONTIN) PO SCH (22:09)
[2022-11-28] MEDS: ACETAMINOPHEN 500 MG TAB PO SCH (22:10)
[2022-11-28] MEDS: SENNA 8.6 MG TAB PO SCH (22:11)
[2022-11-28] MEDS: CALCIUM 600MG + VIT D 400 IU TAB PO SCH (22:12)
[2022-11-28] MEDS: hydrALAZINE HCL 25 MG TAB PO SCH (22:12)
[2022-11-28] MEDS: GABAPENTIN 300 MG CAP PO SCH (22:12)
[2022-11-28] MEDS: PANTOprazole 40 MG TAB PO SCH (22:13)
[2022-11-28] MEDS: predniSONE 1 MG TAB PO SCH (22:13)
[2022-11-28] MEDS ORDERED: GADOBUTROL 65ML VIAL IV ONE (23:38)
[2022-11-29] MEDS: PIPERACILLIN/TAZOBACTAM 4.5 GM in DEXTROSE 5% 100 ML IV SCH ×4 (00:04→22:56)
--- NOTE | 2022-11-29 00:07 | Magnetic Resonance Report ---
Exam(s): MRI LEFT FOOT W/WO Contrast IV Amt: 5.5 GADAVIST EXAM: MR Left Lower Extremity Without and With Intravenous Contrast, Foot CLINICAL HISTORY: Reason for exam: r/o osteomyelitis. TECHNIQUE: Multiplanar magnetic resonance images of the left foot without and with intravenous contrast. CONTRAST: Patient received 5.5 GADAVIST of IV contrast COMPARISON: No relevant prior studies available. FINDINGS: LIGAMENTS: Medial collateral: Unremarkable. Lateral collateral: Unremarkable. Lisfranc: Unremarkable. TENDONS: Flexor: Unremarkable. Extensor: Unremarkable. Peroneal: Unremarkable. Tibialis anterior: Unremarkable. Tibialis posterior: Unremarkable. Muscles: Unremarkable. Fluid: Unremarkable. No joint effusion. Sinus tarsi: Unremarkable as visualized. Tarsal tunnel: Unremarkable. Plantar fascia: Unremarkable. Cartilage: Unremarkable. Bones/joints: There is a rim-enhancing collection within the calcaneus measuring 2.1 x 2.3 cm (image 22 series 11). There are degenerative changes of the tarsus. Soft tissues: There is moderate soft tissue swelling about the foot. IMPRESSION: Findings concerning for intraosseous abscess in the calcaneus measuring up to 2.3 cm. Electronically signed by: Dean Persaud MD 11/29/22 00:06 AM
--- NOTE | 2022-11-29 07:03 | Anesthesiology Consultation ---
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 History Surgery Operation Date: 11/30/22 07:30 Proposed Procedures p left rear foot amputation(Left) - Molina Hill DPM, MS Height/Weight Height: 5 ft 2 in Weight: 54 kg Allergies Allergy/AdvReac Type Severity Reaction Status Date / Time dalbavancin Allergy Severe hypotension, Verified 11/28/22 15:37 flushing, tachypnea Medications Home Medications Medication Instructions Recorded Confirmed Last Taken lactobacillus combination no.4 3 3,000 mmu cells PO QAM 03/30/18 11/28/22 11/28/22 billion cell capsule (Probiotic) cranberry 500 mg capsule 500 mg PO QPM 09/29/18 11/28/22 11/27/22 calcium carbonate 600 mg-vitamin 1 cap PO BID 07/16/20 11/28/22 11/28/22 08:00 D3 5 mcg (200 unit) capsule (Calcium 600 + D(3)) meclizine 25 mg tablet 25 mg PO BID PRN dizziness #20 tabs 07/26/21 11/28/22 1 Month Ago ~10/07/21 duloxetine 30 mg capsule,delayed 30 mg PO DAILY #90 caps 12/30/21 11/28/22 11/28/22 release calcitriol 0.5 mcg capsule 0.5 mcg PO 2XWK #30 caps 03/05/22 11/28/22 11/28/22 (Rocaltrol) apixaban 5 mg tablet (Eliquis) 5 mg PO BID #180 tabs 05/19/22 11/28/22 11/28/22 08:00 omeprazole 20 mg capsule,delayed 20 mg PO BID #180 caps 05/27/22 11/28/22 11/28/22 08:00 release prednisone 1 mg tablet 1 mg PO QPM #90 tabs 06/10/22 11/28/22 11/27/22 prednisone 5 mg tablet 5 mg PO QAM #90 tabs 06/10/22 11/28/22 11/28/22 gabapentin 300 mg capsule 300 mg PO TID 90 days #270 caps 07/01/22 11/28/22 0 11/28/22 08:00 amlodipine 5 mg tablet 5 mg PO DAILY #90 tabs 07/21/22 11/28/22 11/28/22 ferrous sulfate 325 mg (65 mg 325 mg PO QAM #90 tabs 08/01/22 11/28/22 11/28/22 iron) tablet oxybutynin chloride 15 mg 15 mg PO DAILY #90 tabs 09/01/22 11/28/22 11/28/22 tablet,extended release 24 hr leflunomide 20 mg tablet (Arava) 20 mg PO QAM #90 tabs 09/03/22 11/28/22 11/28/22 amiodarone 200 mg tablet 200 mg PO Q2D #90 tabs 09/09/22 11/28/22 11/27/22 hydroxychloroquine 200 mg tablet 200 mg PO DAILY #90 tabs 10/16/22 11/28/22 11/28/22 (Plaquenil) hydralazine 25 mg tablet 25 mg PO TID #270 tabs 11/11/22 11/28/22 11/28/22 08:00 acetaminophen 325 mg tablet 650 mg PO Q6H 2 weeks #112 tabs 11/24/22 11/28/22 11/28/22 amoxicillin 875 mg-potassium 1 tab PO BID #20 tabs 11/24/22 11/28/22 11/28/22 08:00 clavulanate 125 mg tablet oxycodone 10 mg tablet,crush 10 mg PO BID #20 tabs 11/24/22 11/28/22 11/28/22 08:00 resistant,extended release 12 hr (OxyContin) oxycodone 5 mg tablet 5 mg PO Q6H PRN breakthrough pain 11/24/22 11/28/22 Unknown #20 tabs polyethylene glycol 3350 17 gram 17 g PO DAILY #14 ea 11/24/22 11/28/22 11/28/22 oral powder packet (Miralax) sennosides 8.6 mg capsule 8.6 mg PO BID #30 caps 11/24/22 11/28/22 11/28/22 08:00 Active Medications Generic Name Dose Route Start Last Admin Trade Name Freq PRN Reason Stop Dose Admin Acetaminophen 1,000 mg 11/28/22 21:00 11/28/22 22:10 Acetaminophen 500 Mg Tab PO 12/28/22 20:59 1,000 mg TID ANGELO Administration Calcium/Vitamin D 1 tab 11/28/22 21:00 11/28/22 22:12 Calcium 600mg + Vit D 400 Iu Tab PO 12/28/22 20:59 1 tab BID ANGELO Administration Gabapentin 300 mg 11/28/22 21:00 11/28/22 22:12 Gabapentin 300 Mg Cap PO 12/28/22 20:59 300 mg TID ANGELO Administration Hydralazine HCl 25 mg 11/28/22 21:00 11/28/22 22:12 Hydralazine Hcl 25 Mg Tab PO 12/28/22 20:59 25 mg TID ANGELO Administration Hydromorphone HCl 0.5 - 1 mg 11/28/22 18:42 11/28/22 22:18 Hydromorphone Inj 0.5 Mg/0.5 Ml Syr IV 12/12/22 18:41 1 mg Q3H PRN Administration Pain Piperacillin Sod/Tazobactam 120 mls @ 30 mls/hr 11/28/22 23:00 11/29/22 04:24 Sod 4.5 gm/ Dextrose IV 12/05/22 22:59 Infused Q8H ANGELO Infusion Protocol Oxycodone HCl 10 mg 11/28/22 21:00 11/28/22 22:09 Oxycodone Hcl 10 Mg Tabcr (Oxycontin) PO 12/12/22 20:59 10 mg BID ANGELO Administration Pantoprazole Sodium 40 mg 11/28/22 21:00 11/28/22 22:13 Pantoprazole 40 Mg Tab PO 12/28/22 20:59 40 mg BID ANGELO Administration Prednisone 1 mg 11/28/22 21:00 11/28/22 22:13 Prednisone 1 Mg Tab PO 12/28/22 20:59 1 mg QPM ANGELO Administration Sennosides 8.6 mg 11/28/22 21:00 11/28/22 22:11 Senna 8.6 Mg Tab PO 12/28/22 20:59 8.6 mg BID ANGELO Administration Past Medical History Medical History Acute bronchitis Acute respiratory failure with hypoxia Chronic back pain Chronic steroid use Closed fracture of coccyx Constipation due to opioid therapy DDD (degenerative disc disease) Encounter for pre-operative examination GI bleed HOSPITALIZED 02/24/22 AT [place] (ELIQUIS ON HOLD) Hip dislocation, left RECENT DX (CAN LAY ON LEFT SIDE ONLY) History of coronary angiogram Right Lower Extremity Arteriogram, Percutaneous Transluminal Angioplasty and Stenting of Right Superficial Femoral Artery History of COVID-19 hospitalized 07/16/20 [facility]. hypoxia, fever, cough, chills, loss of taste/smell. RESOLVED History of Hodgkin's lymphoma 2003/under surveillance by PCP/Dr. Thibodeaux- S/p chemo in 2003- none since History of oral cancer s/p tongue excision left side (no chemo/no XRT 2013) No issues since Hypertension Hypomagnesemia Junctional bradycardia Overactive bladder PAD (peripheral artery disease) PAF (paroxysmal atrial fibrillation) hx - on Eliquis Paroxysmal SVT (supraventricular tachycardia) hx (follows with Dr. Vance) Peripheral arterial disease RA (rheumatoid arthritis) on chronic steroid Skin benign neoplasm Past Family History Family History Mother Breast cancer Colorectal cancer Cancer Gastric cancer Aunt Colorectal cancer Other Family history non-contributory No family history of adverse response to anesthesia Denies family history of Ovarian cancer Prostate cancer Myocardial infarction Past Surgical History Surgical History H/O foot surgery TOES X MULTIPLE H/O parathyroidectomy History of above knee amputation RT>NO PROSTHETIC (USING W/C) History of biopsy Of soft tissue of the neck History of breast surgery Puncture aspiration of cyst History of carpal tunnel release RIGHT History of cataract surgery both eye one on 09/08/22 and the other 09/23/22 History of colonoscopy History of colposcopy with cervical biopsy with endocervical curettage History of glossectomy with unilateral radical neck dissection History of hip surgery R/L REVISION Left MAURO revision: 11/09/18: SABx1 at L3-L4 at [facility] MULTIPLE HIP SURGERIES History of right above knee amputation (11/14/21) Right Above Knee Amputation(Right) - Manuel Baeza MD, FACS History of spinal surgery 10/02/[address] [facility] [address] Sanford>LUMBAR AREA History of total hip arthroplasty R/L History of total knee replacement R/L History of tubal ligation Hx of hand surgery RIGHT Hx of knee surgery MULTIPLE SURGERIES ON RT LEG Right TKA revision, I&D, antibiotic spacer: 12/29/19: SAB + PNB at [facility] PONV (postoperative nausea and vomiting) S/P revision of total knee 12/29/19 Dr. Ihsan Vela- Right total knee revision, Incision and drainage with antibiotic cement spacer Social History Smoking Status: Never smoker Do You Dip or Chew Tobacco: No Hx Alcohol Use: No Alcohol type: hard liquor alcohol intake frequency: holidays/special occasions only Hx Substance Use: No substance use type: does not use Physical Exam Vital Signs Last Vital Signs Temp 97.9 F 11/29/22 04:07 Pulse 82 11/29/22 04:07 Resp 20 11/29/22 04:07 BP 119/62 11/29/22 04:07 Pulse Ox 96 11/29/22 04:07 O2 Del Method Room Air 11/29/22 04:07 O2 Flow Rate 0 11/28/22 18:42 Testing Laboratory Results 11/28/22 15:04 11/28/22 15:04 PT 12.5 Seconds (9.0-12.0) H 11/28/22 15:04 INR 1.2 (0.9-1.1) H 11/28/22 15:04 Electrocardiogram Date: 11/28/22 Normal sinus rhythm, rate 95 bpm Septal infarct (cited on or before 28-NOV-2022) Abnormal ECG When compared with ECG of 18-NOV-2022 12:10, Sinus rhythm has replaced Atrial fibrillation Non-specific change in ST segment in Inferior leads Nonspecific T wave abnormality no longer evident in Inferior leads T wave inversion more evident in Lateral leads Confirmed by Edd Vance ([id number]) on 11/28/2022 3:05:34 PM Chest X-Ray Date: 11/18/22 IMPRESSION: Cardiomegaly with no active disease in the chest. Echocardiogram Date: 07/15/22 Compared with 11/11/21, severity of tricuspid regurgitation has increased and mod pulmonary HTN now seen. LV systolic function is normal EF 60-65% LV wall motion is normal Mod concentric LVH RV is normal in size and function Mild aortic regurgitation Mild pulmonic valvular regurgitation Mild MR Mod to severe TR RVSP is elevated at 40-50mmHg Cervical Spine Date: 08/29/20 IMPRESSION: 1. Mild anterolisthesis of C3 on C4, and C4 on C5. This finding was present on the prior October 2018 study. The C3 on C4 anterolisthesis is currently visualized only in flexion and reduces in extension. The 3 mm of anterolisthesis of C4 on C5 is currently visualized only in extension.
--- NOTE | 2022-11-29 08:38 | Hospitalist Progress Note ---
Date of Service November 29, 2022 Assessment & Plan (1) Cellulitis of left foot: Plan: s/p Left Foot Transmetatarsal Amputation 11/21 Vancomycin + Zosyn Await blood cultures - pending WBC trending downward from 20.9 to 14.4 Continue to hold immunosuppressants Arava and Plaquenil US arterial doppler - Monophasic waveforms and elevated velocities in the distal peroneal and dorsalis pedis arteries compatible with peripheral vascular disease. Compared to the prior exam, the peroneal artery is visualized and found to be patent. MRI foot to rule out osteomyelitis - Findings concerning for intraosseous abscess in the calcaneus measuring up to 2.3cm. Consulted Dr Hill - cecilia on hold for this procedure Thursday, currently ordered heart healthy diet and NPO at midnight (2) PAD (peripheral artery disease): Plan: s/p She underwent arteriogram of Left Lower Extremity with percutaneous Transluminal Angioplasty and Stenting of Left Superficial Femoral Artery on November 04. 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 Now with partial amputation Left foot and scheduled for surgery tomorrow with dr Hill (4) PAF (paroxysmal atrial fibrillation): Plan: In NSR on admission Anticoagulation on hold for surgery Continue amiodarone for rhythm control (5) Hypertension: Plan: Chronic and stable Continue hydralazine, amlodipine (6) Overactive bladder: Plan: Chronic and stable Continue oxybutynin (7) RA (rheumatoid arthritis): Plan: Chronic and stable Hold Arava and Plaquenil given current infection and RA well controlled Continue chronic prednisone Plan VTE Prophylaxis - Restart Eliquis when ok from surgical perspective Diet - heart healthy and then NPO at midnight Disposition - admit to med/tele Admission and Anticipated Discharge Date Admission Date: November 28, 2022 Subjective Patient was seen this AM in rounds. She is awake laying in bed eating breakfast in NAD. She is scheduled for proposed left rear foot amputation tomorrow. WBC improved from 20 to 14. She is afebrile and has no comlaints other than foot pain but is improved with quinteros meds and elevating extremity. Review of Systems Constitutional: + fatigue and + anorexia; no fever, no chills and no sweats Respiratory: no cough, no chest congestion, no dyspnea and no hemoptysis Cardiovascular: no chest pain, no chest pain at rest, no chest pain with activity, no dyspnea, no lightheadedness and no calf pain Gastrointestinal: no abdominal pain, no nausea and no vomiting Integumentary: skin changes left foot stump Physical Exam Constitutional: WD/WN, vitals as above Neck: trachea midline, no thyromegaly Cardiovascular: RRR, no murmur, no edema Gastrointestinal (Abdomen): normal bowel sounds, soft, nontender, no hepatosplenomegaly Skin: left partial foot stump edges necrotic and black skin surrounding sutures with underlying flucuance, erythema and swelling to distal ankle area Results & Data Results & Data Vital Signs (Past 12 Hours) Vital Signs Temp Pulse Pulse Pulse Resp BP Pulse Ox 11/29/22 08:07 36.6 C 76 17 122/66 94 11/29/22 05:59 78 11/29/22 04:07 36.6 C 82 20 119/62 96 11/28/22 23:32 87 11/28/22 23:19 37.3 C 88 20 111/65 96 O2 Del Method 11/29/22 08:07 Room Air 11/29/22 05:59 11/29/22 04:07 Room Air 11/28/22 23:32 11/28/22 23:19 Room Air Laboratory Results Abnormal lab results 11/28/22 11/28/22 11/28/22 Range/Units 15:04 15:04 15:04 WBC 20.97 H (4.8-10.8) K/ul RBC 3.09 L (4.20-5.40) M/uL Hgb 9.2 L (12.0-16.0) g/dl Hct 28.4 L (37.0-47.0) % MCHC (32.0-36.0) g/dL RDW Std Deviation 47.8 H (36.4-46.3) fL MPV (9.4-12.4) fL Neut # (Auto) 17.58 H (1.40-6.50) K/uL [place] # (Auto) 1.67 H (0.11-0.59) K/uL Immature Gran # (Auto) 0.25 H (0.01-0.20) K/uL ESR (0-30) mm/hr PT 12.5 H (9.0-12.0) Seconds INR 1.2 H (0.9-1.1) Sodium 134 L (136-145) mmol/L Alkaline Phosphatase 221 H (34-104) U/L Troponin I High Sens 41.8 H (0-14) pg/ml C-Reactive Protein 17.10 H (0-0.5) mg/dl Albumin 3.1 L (3.4-5.0) gm/dl 11/28/22 11/29/22 Range/Units 15:11 09:09 WBC 14.41 H (4.8-10.8) K/ul RBC 2.68 L (4.20-5.40) M/uL Hgb 8.0 L (12.0-16.0) g/dl Hct 25.1 L (37.0-47.0) % MCHC 31.9 L (32.0-36.0) g/dL RDW Std Deviation 48.3 H (36.4-46.3) fL MPV 9.3 L (9.4-12.4) fL Neut # (Auto) (1.40-6.50) K/uL [place] # (Auto) (0.11-0.59) K/uL Immature Gran # (Auto) (0.01-0.20) K/uL ESR 72 H (0-30) mm/hr PT (9.0-12.0) Seconds INR (0.9-1.1) Sodium (136-145) mmol/L Alkaline Phosphatase (34-104) U/L Troponin I High Sens (0-14) pg/ml C-Reactive Protein (0-0.5) mg/dl Albumin (3.4-5.0) gm/dl Diagnostic Findings Foot X-Ray 11/28/22 14:19 XR foot LT min 3V routine CLINICAL HISTORY: recent surgery, necrotic?/pain TECHNIQUE: 3 views of the left foot were obtained. Comparison: Comparison is made to foot radiographs 11/18/2022 FINDINGS: Patient is status post mid metatarsal amputation of the foot. Extensive degenerative changes are seen. No erosions are seen. Vascular calcifications are noted. IMPRESSION: No radiographic evidence of osteomyelitis. If clinical concern remains, MRI is a more sensitive modality. Mid metatarsal amputation is seen. ACT 112: Negative or not required by law. Electronically signed by: Hai Weems M.D. 11/28/2022 3:26 PM Duplex Scan Lower Extremity Artery 11/28/22 16:37 US arterial duplex LE CLINICAL HISTORY: left foot cellulitis, known ischemic foot disease TECHNIQUE: Real-time grayscale and color and spectral Doppler ultrasound imaging of the left lower extremity arteries was performed. Measurements calculated based on NASCET criteria. COMPARISON: None available at the time of this dictation. FINDINGS: LEFT: Common femoral artery: Triphasic waveforms. Peak systolic velocity (PSV) 138 cm/s. Deep femoral artery: Triphasic waveforms. PSV 193 cm/s. Superficial femoral artery: Triphasic waveforms. PSV 147 cm/s. Popliteal artery: Triphasic waveforms. PSV 45 cm/s. Anterior tibial artery: Monophasic waveforms. PSV 60 cm/s. Posterior tibial artery: Monophasic waveforms. PSV 54 cm/s. Peroneal artery: Monophasic waveforms. PSV 123 cm/s. Dorsalis pedis: Monophasic waveforms. PSV 127 cm/s. Reference ranges: Normal Ankle/Brachial Index (MISHEL) 1.0-1.4; 0.91-0.99 borderline; < or = 0.9 abnormal (0.7-0.89 mild, 0.51-0.69 moderate, < or = 0.5 severe peripheral arterial disease). Normal Toe/Brachial Index (TBI) > or = 0.6; < 0.6 abnormal (0.34-0.59 mild, 0.12-0.34 moderate, < or = 0.11 severe peripheral arterial disease). IMPRESSION: Monophasic waveforms and elevated velocities in the distal peroneal and dorsalis pedis arteries compatible with peripheral vascular disease. Compared to the prior exam, the peroneal artery is visualized and found to be patent. ACT 112: Negative or not required by law. Electronically signed by: Hai Weems M.D. 11/28/2022 7:16 PM Foot MRI 11/28/22 20:37 Exam(s): MRI LEFT FOOT W/WO Contrast IV Amt: 5.5 GADAVIST EXAM: MR Left Lower Extremity Without and With Intravenous Contrast, Foot CLINICAL HISTORY: Reason for exam: r/o osteomyelitis. TECHNIQUE: Multiplanar magnetic resonance images of the left foot without and with intravenous contrast. CONTRAST: Patient received 5.5 GADAVIST of IV contrast COMPARISON: No relevant prior studies available. FINDINGS: LIGAMENTS: Medial collateral: Unremarkable. Lateral collateral: Unremarkable. Lisfranc: Unremarkable. TENDONS: Flexor: Unremarkable. Extensor: Unremarkable. Peroneal: Unremarkable. Tibialis anterior: Unremarkable. Tibialis posterior: Unremarkable. Muscles: Unremarkable. Fluid: Unremarkable. No joint effusion. Sinus tarsi: Unremarkable as visualized. Tarsal tunnel: Unremarkable. Plantar fascia: Unremarkable. Cartilage: Unremarkable. Bones/joints: There is a rim-enhancing collection within the calcaneus measuring 2.1 x 2.3 cm (image 22 series 11). There are degenerative changes of the tarsus. Soft tissues: There is moderate soft tissue swelling about the foot. IMPRESSION: Findings concerning for intraosseous abscess in the calcaneus measuring up to 2.3 cm. Electronically signed by: Dean Persaud MD 11/29/22 00:06 AM PG Care Time/CCT Total # of Minutes Spent Total Time Spent with Patient: Total time spent is greater than 50% in coordination of care (as documented) at patient's floor/unit and/or counseling patient: Coding Level of Care Code 45756 SUB INP/OBS CARE 07/30MIN Diagnoses Cellulitis of left foot L03.116 PAD (peripheral artery disease) I73.9 Diabetic wet gangrene of the foot E11.52 PAF (paroxysmal atrial fibrillation) I48.0 Hypertension I10 Hypertension type: primary hypertension Overactive bladder N32.81 RA (rheumatoid arthritis) M06.9 (5) Hypertension Hypertension type: primary hypertension Qualified Code(s): I10 - Essential (primary) hypertension
[2022-11-29] MEDS: POLYETHYLENE (MIRALAX) 17 GM PACK PO SCH (09:08)
[2022-11-29] MEDS: PANTOprazole 40 MG TAB PO SCH ×2 (09:09→20:07)
[2022-11-29] MEDS: GABAPENTIN 300 MG CAP PO SCH ×3 (09:09→20:08)
[2022-11-29] MEDS: OXYBUTYNIN CHLORIDE XL 5 MG TABCR PO SCH (09:09)
[2022-11-29] MEDS: predniSONE 5 MG TAB PO SCH (09:09)
[2022-11-29] MEDS: FERROUS SULFATE 325 MG TAB PO SCH (09:09)
[2022-11-29] MEDS: amLODIPine BESYLATE 5 MG TAB PO SCH (09:09)
[2022-11-29] MEDS: ADVANCED PROBIOTIC 1250 MG CAPSULE PO SCH (09:09)
[2022-11-29] MEDS: ACETAMINOPHEN 500 MG TAB PO SCH ×3 (09:10→20:07)
[2022-11-29] MEDS: SENNA 8.6 MG TAB PO SCH ×2 (09:10→20:09)
[2022-11-29] MEDS: hydrALAZINE HCL 25 MG TAB PO SCH ×3 (09:10→20:09)
[2022-11-29] MEDS: CALCIUM 600MG + VIT D 400 IU TAB PO SCH ×2 (09:10→20:06)
[2022-11-29] MEDS: DULoxetine HCL 30 MG CAP PO SCH (09:11)
[2022-11-29] MEDS: oxyCODONE HCL 10 MG TABCR (OxyCONTIN) PO SCH ×2 (09:12→20:02)
[2022-11-29 09:32] LABS: Hematocrit (blood only) 25.1 % (37.0-47.0); Mean Corpuscular Hemoglobin 29.9 pg (25.0-34.0); Mean Corpuscular Hgb Conc 31.9 g/dL (32.0-36.0); Mean Corpuscular Volume 93.7 fL (80.0-100.0); Mean Platelet Volume 9.3 fL (9.4-12.4); Platelet Count 333 K/uL (130-400); RDW Coefficient of Variation 14.4 % (11.5-14.5); RDW Standard Deviation 48.3 fL (36.4-46.3); Red Blood Count 2.68 M/uL (4.20-5.40); White Blood Count 14.41 K/ul (4.8-10.8)
[2022-11-29] MEDS: HYDROmorphone INJ 0.5 MG/0.5 ML SYR IV PRN ×2 (11:23→20:02)
--- NOTE | 2022-11-29 13:02 | Pharmacy Report ---
Pharmacy PK ABX Note - Date of Service November 29, 2022 - Assessment and Plan Assessment * 72 year old F receiving Zosyn and vancomycin for treatment of post-op infection (s/p L foot transmetatarsal amputation 11/21). * Pertinent microbiologic data includes: 11/28 blood cultures pending Plan Vancomycin * Maintenance dose: 1000 mg IV every 24 hours * Regimen is predicted to achieve target AUC/ANUSHA of 400-600 mg/L.hr * Random level ordered for: 11/30 AM Pharmacy will continue to follow and will adjust dose/frequency as necessary. Thank you. Pharmacy has transitioned to AUC monitoring for vancomycin. AUC/ANUSHA is the preferred PK/PD target and is associated with decreased risk of nephrotoxicity compared to traditional trough targets.
[2022-11-29] MEDS ORDERED: VANCOMYCIN HCL 1,000 MG in SODIUM CHLORIDE 0.9% 250 ML IV SCH (16:00)
[2022-11-29] MEDS: AMIODARONE 200 MG TAB PO SCH (16:22)
[2022-11-29] MEDS: predniSONE 1 MG TAB PO SCH (20:08)
[2022-11-30 06:09] LABS: Creatinine Clr Calc Pharmacy 51.1 ml/min; Est GFR (African American) 89.6 ml/min; Est GFR (Non-African American) 77.3 ml/min
[2022-11-30] MEDS: PIPERACILLIN/TAZOBACTAM 4.5 GM in DEXTROSE 5% 100 ML IV SCH ×3 (06:30→23:05)
[2022-11-30] MEDS ORDERED: MIDAZOLAM HCL 1 MG/ML 2ML VIAL ONE (06:51)
[2022-11-30] MEDS ORDERED: PROPOFOL IV EMULSION 10 MG/ML 20 ML VIAL IV ONE (06:51)
[2022-11-30] MEDS ORDERED: fentaNYL citrate PF 100 MCG/2 ML VIAL ONE ×3 (06:51→09:26)
[2022-11-30] MEDS: HYDROmorphone INJ 0.5 MG/0.5 ML SYR IV PRN ×2 (06:55→10:37)
[2022-11-30] MEDS ORDERED: ONDANSETRON INJ 2 MG/ML 2 ML VIAL IV PRN (07:33)
[2022-11-30] MEDS ORDERED: HYDROmorphone INJ 1 MG/ML SYRINGE IV PRN (07:33)
[2022-11-30] MEDS ORDERED: ATROPINE SULFATE 0.1 MG/ML 10ML SYR IV PRN (07:33)
[2022-11-30] MEDS ORDERED: ePHEDrine sulfate 50 MG/ML AMP IV PRN (07:33)
[2022-11-30] MEDS ORDERED: KETAMINE 50 MG/5 ML SYRINGE ONE (07:38)
--- NOTE | 2022-11-30 07:39 | History & Physical Bridge Note ---
Date of Service November 30, 2022 History & Physical Bridge Note I have examined the patient, reviewed the History & Physical and in the interval since the performance of the History & Physical I have noted the following changes of clinical significance: no changes noted
[2022-11-30] MEDS ORDERED: BUPIVACAINE 0.5 % 5 MG/1 ML MPF 30ML VIAL ONE (08:02)
[2022-11-30] MEDS ORDERED: HYDROmorphone INJ 1 MG/ML SYRINGE ONE (08:05)
--- NOTE | 2022-11-30 08:43 | Hospitalist Progress Note ---
Date of Service November 30, 2022 Assessment & Plan (1) Cellulitis of left foot: Plan: s/p Left Foot Transmetatarsal Amputation 11/21 Vancomycin + Zosyn Await blood cultures - pending WBC trending downward from 20.9 to 14.4 Continue to hold immunosuppressants Arava and Plaquenil US arterial doppler - Monophasic waveforms and elevated velocities in the distal peroneal and dorsalis pedis arteries compatible with peripheral vascular disease. Compared to the prior exam, the peroneal artery is visualized and found to be patent. MRI foot to rule out osteomyelitis - Findings concerning for intraosseous abscess in the calcaneus measuring up to 2.3cm. Consulted Dr Hill - apixaban on hold S/P OR today Left foot posterior amputation Resume Apixaban when ok with surgery (2) PAD (peripheral artery disease): Plan: s/p She underwent arteriogram of Left Lower Extremity with percutaneous Transluminal Angioplasty and Stenting of Left Superficial Femoral Artery on November 04. 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 Post op day #0 partial amputation Left posterior foot Dr Hill (4) PAF (paroxysmal atrial fibrillation): Plan: In NSR on admission Anticoagulation on hold for surgery Continue amiodarone for rhythm control (5) Hypertension: Plan: Chronic and stable Continue hydralazine, amlodipine (6) Overactive bladder: Plan: Chronic and stable Continue oxybutynin (7) RA (rheumatoid arthritis): Plan: Chronic and stable Hold Arava and Plaquenil given current infection and RA well controlled Continue chronic prednisone Plan VTE Prophylaxis - Restart Eliquis when ok from surgical perspective Diet - heart healthy and then NPO at midnight Disposition - admit to med/tele Admission and Anticipated Discharge Date Admission Date: November 28, 2022 Subjective Patient was seen this afternoon. She returned back from surgery and was tearful and complaining of pain in her stump. Per brief OR note, left rear foot amputation. She deneis any chest pain, SOB or dyspnea. Review of Systems Constitutional: + fatigue and + anorexia; no fever, no chills and no sweats Respiratory: no cough, no chest congestion, no dyspnea and no hemoptysis Cardiovascular: no chest pain, no chest pain at rest, no chest pain with activity, no dyspnea, no lightheadedness and no calf pain Gastrointestinal: no abdominal pain, no nausea and no vomiting Integumentary: skin changes left foot stump Physical Exam Constitutional: WD/WN, vitals as above Neck: trachea midline, no thyromegaly Cardiovascular: RRR, no murmur, no edema Gastrointestinal (Abdomen): normal bowel sounds, soft, nontender, no hepatosplenomegaly Skin: Left foot with surgical dressing and ramiro bandage and ice to external area. Psychiatric: Orientation: alert and oriented x 3 Eye Contact: good eye contact tearful Results & Data Results & Data Vital Signs (Past 12 Hours) Vital Signs Temp Pulse Pulse Resp BP Pulse Ox O2 Del Method 11/30/22 05:56 83 11/30/22 07:00 Room Air 11/30/22 03:04 36.7 C 81 18 149/67 H 97 Room Air 11/29/22 23:26 81 11/29/22 23:20 37.0 C 81 18 124/66 96 Room Air PG Care Time/CCT Total # of Minutes Spent Total Time Spent with Patient: Total time spent is greater than 50% in coordination of care (as documented) at patient's floor/unit and/or counseling patient: Coding Level of Care Code 80405 SUB INP/OBS CARE 07/30MIN Diagnoses Cellulitis of left foot L03.116 PAD (peripheral artery disease) I73.9 Diabetic wet gangrene of the foot E11.52 PAF (paroxysmal atrial fibrillation) I48.0 Hypertension I10 Hypertension type: primary hypertension Overactive bladder N32.81 RA (rheumatoid arthritis) M06.9 (5) Hypertension Hypertension type: primary hypertension Qualified Code(s): I10 - Essential (primary) hypertension
--- NOTE | 2022-11-30 09:07 | Post Operative Brief Note ---
Immediate Post Op Note v1 Date of Surgery November 30, 2022 Pre & Post Diagnosis Operation Date: 11/30/22 07:30 Pre-Op Diagnosis: Left Foot Cellulitis s/p Amputation Post-Op Diagnosis: Left Foot Cellulitis s/p Amputation I identified the patient and participated in the time-out.: Yes Procedure Operation Date: 11/30/22 07:30 Actual Procedures p Left Rear Foot Amputation(Left) - Molina Hill DPM, MS Surgeon Molina Hill DPM, MS Economics Analyst none Estimated Blood Loss 5 Findings Consistent with Post-Op Diagnosis Necrotic amputation site
[2022-11-30] MEDS: fentaNYL citrate PF 100 MCG/2 ML VIAL IV PRN ×4 (09:12→09:36)
[2022-11-30] MEDS ORDERED: LABETALOL HCL IV 5 MG/ML 20ML IV STA (09:33)
[2022-11-30] MEDS ORDERED: LABETALOL HCL IV 5 MG/ML 20ML IV ONE (09:33)
--- NOTE | 2022-11-30 10:04 | Anesthesiology Progress Note ---
Date of Service November 30, 2022 Anesthesia Post Procedure Vital Signs Vital Signs: Temp Pulse Pulse Pulse Resp BP BP 11/30/22 09:50 97.0 F L 83 14 154/66 H 11/30/22 09:40 78 20 146/63 H 11/30/22 09:30 97 H 12 176/100 H 11/30/22 09:20 95 H 14 172/71 H 11/30/22 09:08 97.0 F L 90 14 111/95 11/30/22 05:56 83 11/30/22 07:00 11/30/22 03:04 98.1 F 81 18 149/67 H 11/29/22 23:26 81 11/29/22 23:20 98.6 F 81 18 124/66 11/29/22 19:38 98.1 F 78 18 119/61 11/29/22 15:49 98.1 F 79 17 130/66 11/29/22 14:17 81 11/29/22 11:26 97.9 F 85 17 126/70 Pulse Ox O2 Del Method O2 Flow Rate 11/30/22 09:50 98 Nasal Cannula 2 11/30/22 09:40 97 Nasal Cannula 3 11/30/22 09:30 97 Nasal Cannula 3 11/30/22 09:20 97 Nasal Cannula 3 11/30/22 09:08 97 Oxymask 6 11/30/22 05:56 11/30/22 07:00 Room Air 11/30/22 03:04 97 Room Air 11/29/22 23:26 11/29/22 23:20 96 Room Air 11/29/22 19:38 95 Room Air 11/29/22 15:49 96 Room Air 11/29/22 14:17 11/29/22 11:26 96 Room Air Pain Intensity Left Foot: Pain Intensity: 4 Transfer of Care Handoff Completed per policy Notes Mental Status: alert / awake / arousable and participated in evaluation Patient Amnestic to Procedure: Yes Nausea / Vomiting: adequately controlled Pain: adequately controlled Airway Patency, RR, SpO2: stable & adequate BP & HR: stable & adequate Hydration State: stable & adequate Anesthetic Complications: no major complications apparent and Pt Satisfied with anesthetic care
[2022-11-30] MEDS: oxyCODONE HCL 10 MG TABCR (OxyCONTIN) PO SCH ×2 (10:14→20:44)
[2022-11-30] MEDS: ACETAMINOPHEN 500 MG TAB PO SCH ×3 (10:14→20:42)
[2022-11-30] MEDS: POLYETHYLENE (MIRALAX) 17 GM PACK PO SCH (10:14)
[2022-11-30] MEDS: hydrALAZINE HCL 25 MG TAB PO SCH ×3 (10:17→20:58)
[2022-11-30] MEDS: PANTOprazole 40 MG TAB PO SCH ×2 (10:18→20:45)
[2022-11-30] MEDS: CALCIUM 600MG + VIT D 400 IU TAB PO SCH ×2 (10:18→20:43)
[2022-11-30] MEDS: GABAPENTIN 300 MG CAP PO SCH ×3 (10:18→20:43)
[2022-11-30] MEDS: ADVANCED PROBIOTIC 1250 MG CAPSULE PO SCH (10:19)
[2022-11-30] MEDS: predniSONE 5 MG TAB PO SCH (10:19)
[2022-11-30] MEDS: FERROUS SULFATE 325 MG TAB PO SCH (10:20)
[2022-11-30] MEDS: amLODIPine BESYLATE 5 MG TAB PO SCH (10:20)
[2022-11-30] MEDS: DULoxetine HCL 30 MG CAP PO SCH (10:20)
[2022-11-30] MEDS: OXYBUTYNIN CHLORIDE XL 5 MG TABCR PO SCH (10:21)
[2022-11-30] MEDS: SENNA 8.6 MG TAB PO SCH ×2 (10:21→20:45)
[2022-11-30] MEDS: AMIODARONE 200 MG TAB PO SCH (10:21)
--- NOTE | 2022-11-30 10:33 | Pharmacy Report ---
Pharmacy PK ABX Note - Date of Service November 30, 2022 - Assessment and Plan Assessment * 72 year old F receiving Zosyn and vancomycin for treatment of post-op infection (s/p L foot transmetatarsal amputation 11/21). Taken back to the OR today. * Pertinent microbiologic data includes: 11/28 blood cultures NGTD. 11/30 operative L foot culture pending Plan Vancomycin * Maintenance dose: 1000 mg IV every 24 hours * Regimen is predicted to achieve target AUC/ANUSHA of 400-600 mg/L.hr * Random level ordered for: 5 AM Pharmacy will continue to follow and will adjust dose/frequency as necessary. Thank you. Pharmacy has transitioned to AUC monitoring for vancomycin. AUC/ANUSHA is the preferred PK/PD target and is associated with decreased risk of nephrotoxicity compared to traditional trough targets.
[2022-11-30] MEDS ORDERED: KETOROLAC TROMETHAMINE 15 MG/ML VIAL IV ONE (12:12)
[2022-11-30] MEDS: predniSONE 1 MG TAB PO SCH (20:42)
--- NOTE | 2022-11-30 21:53 | Operative Report ---
Post Operative Report Pre & Post Diagnosis Operation Date: 11/30/22 07:30 Pre-Op Diagnosis: Left Foot Cellulitis s/p Amputation Post-Op Diagnosis: Left Foot Cellulitis s/p Amputation I identified the patient and participated in the time-out.: Yes Procedure Operation Date: 11/30/22 07:30 Actual Procedures p Left Rear Foot Amputation(Left) - Molina Hill DPM, MS Surgeon Molina Hill DPM, MS Bridge Construction Inspector none Estimated Blood Loss 5 Findings Consistent with Post-Op Diagnosis necrotic TMA stump Specimens Left foot Tissue - Micro Description of Procedure History of present illness: Patient is a 72 year old female who is seen for treatment of left foot gangrene secondary to peripheral vascular disease. P atient recently underwent a transmetatarsal amputation and has necrosis to distal amputation site secondary to peripheral vascular disease. I discussed need more proximal amputation and reviewed surgery. Patient is at severe risk for loss of limb. All questions answered. Discussed procedure in detail and postoperative recovery. All potential risks, benefits, complications, alternatives, rehab, potential for incomplete relief of symptoms, need for further surgery, DVT, PE, , persistent pain, swelling, scarring, weakness, neurovascular, wound complications and potential for amputations were discussed with patient. Unwanted outcomes such as, but not limited to were reviewed including under correction, overcorrection, return of deformity, infection. All questions were answered. Patient has decided to proceed with procedure as indicated. Preoperative diagnosis: Left foot gangrene Postoperative diagnosis: Same Name of operation: Left foot lisfranc amputation Surgeon Dr. Hill Bridge Construction Inspector: None Anesthesia: General anesthesia care Hemostasis: Anatomic dissection, Pneumatic calf tourniquet Estimated blood loss: 20cc Procedure in detail: Under mild sedation the patient was brought in the operating room placed on the operating table in supine position. A pneumatic calf tourniquet was then placed about the patient's left calf. Following IV sedation local anesthesia was obtained about the left ankle utilizing 10 cc of a one-to-one mixture of 1% lidocaine plain and 0.5% Marcaine plain. The foot was then prepped scrubbed and draped in usual aseptic manner. An Esmarch bandage was utilized to exsanguinate the patient's left foot and the pneumatic calf tourniquet was then inflated. Attention was then directed to the necrotic distal amputation site of left foot. A fishmouth incision was created utilizing a sharp, sterile, #15 blade encompassing the forefoot. The incision which was deepened through subcutaneous tissue using sharp blunt dissection. Care was taken to identify and retract all vital neurovascular structures. All bleeders were ligated and cauterized necessary. Once down to the layer of periosteum and bone, a transverse incision was made within the periosteum. A chapman elevator was then used to free the soft tissue at the site of the metatarsal bases and cuneiforms and cuboid. Once this was then performed, with the use of a sagittal saw the cuneiforms were then transversely cut. The cuneiforms were then disarticulated from the surrounding soft tissue with the use of a 15 blade. The patient then had the forefoot amputation necrotic stump completely disarticulated and passed off to the back table.A section was then labeled and sent microbiology. The patient then underwent copious irrigation with the use of 3 L of lactate ringer. There was no gross infectious signs noted at this point. All participants in the surgery removed their top layer of gloves and only clean instrumentation was used from here on out. Hemostasis was acquired. The wound was closed in layers with 3-0 vicryl. The skin was then closed with 3-0 nylon. The pneumatic tourniquet was deflated and a prompt hyperemic response was noted to the left foot. Dry sterile dressing was applied consisting of 4x4's, ABD, Kerlix and Son. The Patient tolerated the procedure and anesthesia well. He was transferred to recovery room vital signs stable. After postoperative monitoring the patient will be re admitted to the floor resuming all pre operative orders. I attest to the content of the Intraoperative Record and any orders documented therein. Any exceptions are noted below.
[2022-12-01 07:28] LABS: BUN Creatinine Ratio 15.2 (10-20); Calcium 8.5 mg/dl (8.6-10.3); Creatinine Clr Calc Pharmacy 34.9 ml/min; Est GFR (Non-African American) 48.4 ml/min; Potassium 4.4 mmol/L (3.5-5.1)
[2022-12-01 08:42] LABS: Basophils # (auto) 0.07 K/uL (0-0.2); Basophils % (auto) 0.4 %; Eosinophils % (auto) 0.6 %; Hematocrit (blood only) 24.9 % (37.0-47.0); Immature Granulocytes # (auto) 0.24 K/uL (0.01-0.20); Immature Granulocytes % (auto) 1.3 %; Lymphocytes # (auto) 0.98 K/uL (1.2-3.4); Lymphocytes % (auto) 5.4 %; Mean Corpuscular Hemoglobin 29.6 pg (25.0-34.0); Mean Corpuscular Hgb Conc 32.1 g/dL (32.0-36.0); Mean Corpuscular Volume 92.2 fL (80.0-100.0); Mean Platelet Volume 9.5 fL (9.4-12.4); Monocytes # (auto) 1.19 K/uL (0.11-0.59); Monocytes % (auto) 6.6 %; Neutrophils # (auto) 15.42 K/uL (1.40-6.50); Neutrophils % (auto) 85.7 %; Platelet Count 410 K/uL (130-400); RDW Coefficient of Variation 14.7 % (11.5-14.5); RDW Standard Deviation 49.7 fL (36.4-46.3)
[2022-12-01] MEDS ORDERED: CALCITRIOL 0.25 MCG CAPSULE PO SCH (09:00)
[2022-12-01] MEDS: PIPERACILLIN/TAZOBACTAM 4.5 GM in DEXTROSE 5% 100 ML IV SCH ×2 (09:28→15:06)
[2022-12-01] MEDS: PANTOprazole 40 MG TAB PO SCH ×2 (09:28→20:11)
[2022-12-01] MEDS: DULoxetine HCL 30 MG CAP PO SCH (09:28)
[2022-12-01] MEDS: oxyCODONE HCL 10 MG TABCR (OxyCONTIN) PO SCH ×2 (09:28→20:08)
[2022-12-01] MEDS: ACETAMINOPHEN 500 MG TAB PO SCH ×3 (09:29→20:04)
[2022-12-01] MEDS: CALCIUM 600MG + VIT D 400 IU TAB PO SCH ×2 (09:29→20:05)
[2022-12-01] MEDS: ADVANCED PROBIOTIC 1250 MG CAPSULE PO SCH (09:29)
[2022-12-01] MEDS: FERROUS SULFATE 325 MG TAB PO SCH (09:30)
[2022-12-01] MEDS: amLODIPine BESYLATE 5 MG TAB PO SCH (09:30)
[2022-12-01] MEDS: SENNA 8.6 MG TAB PO SCH ×2 (09:30→20:12)
[2022-12-01] MEDS: POLYETHYLENE (MIRALAX) 17 GM PACK PO SCH (09:30)
[2022-12-01] MEDS: hydrALAZINE HCL 25 MG TAB PO SCH ×3 (09:30→20:17)
[2022-12-01] MEDS: OXYBUTYNIN CHLORIDE XL 5 MG TABCR PO SCH (09:30)
[2022-12-01] MEDS: predniSONE 5 MG TAB PO SCH (09:30)
[2022-12-01] MEDS: GABAPENTIN 300 MG CAP PO SCH ×3 (09:31→20:05)
--- NOTE | 2022-12-01 10:52 | Hospitalist Progress Note ---
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 Hill - Empirically placed on Vancomycin and Zosyn on admit - Wound culture prelim demonstrates GNB - d/c Vancomycin - Blood cultures ordered/pendning - Continue to hold immunosuppressive agents Arava and Plaquenil - Dressing changes per Dr. Hill, appreciate assistance - Pain control (2) Leukocytosis: Plan: Acute/unstable - moderate risk - CBC reviewed, WBC trend: 20.9 --> 14.4 --> 18.0 (12/01) - Blood cultures still pending - Suspect the uptrend in wbc today reflects leukemoid related to surgical intervention - No changes in IV abx, await final wound cultures and tailor accordingly - Trend with repeat CBC in AM (3) PAD (peripheral artery disease): Plan: Chronic/stable - S/p arteriogram of Left Lower Extremity w/ percutaneous Transluminal Angioplasty and Stenting of Left SFA on November 04. 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 Compared to the prior exam, the peroneal artery is visualized and found to be patent. (4) Anemia: Plan: Chronic/unstable - Chronic SEBASTIÁN with a hgb range of 9-11 - CBC reviewed, noted drop in hgb from 9.2 on 11/28 to 8.0 on 11/29 - No s/sx of bleeding - suspect drop is partially dilutional effect and perhaps very mild acute blood loss from surgery - Apixaban is on hold as above - Continue monitor H&H, would not transfuse unless sx or </=7 (5) PAF (paroxysmal atrial fibrillation): Plan: H/o AFib/HTN - Examines in NSR, controlled ventricular rate - Continue amiodarone for rhythm control - Apixaban on hold as above - Continue Hydralazine and Amlodipine for HTN which is also well controlled (6) RA (rheumatoid arthritis): Plan: Chronic/stable - Arava and Plaquenil held given current infection and RA well controlled - Continued on her chronic prednisone - Probably should've received stress dose steroids post operatively but will defer at this time, BP acceptable Plan Transfer off tele to med/surg unit. Continue IV abx as above, await cultures and tailor abx. Repeat labs ordered for tomorrow AM. Plan to be d/w Dr. Mccoy. Admission and Anticipated Discharge Date Admission Date: November 28, 2022 Subjective Patient was seen on daily rounds this morning. She reports that her pain is adequately controlled with pain medications. Voiding w/o issue. Denies chest p ain or dyspnea. Physical Exam Physical Exam: GENERAL: 72 yo well-developed, well-nourished elderly F. AAOx4. NAD. LUNGS: Clear to auscultation bilaterally w/o W/R/R. CARDIOVASCULAR: Regular rate and rhythm with systolic murmur, no g/r EXTREMITIES: L foot partially amputated dressed and loosely wrapped. I was unable to examine foot/surgical site as pt requested I do not remove dressing as Dr. Hill had just dressed it prior to my arrival Results & Data Results & Data Vital Signs (Past 12 Hours) Vital Signs Temp Pulse Resp BP Pulse Ox O2 Del Method 12/01/22 07:27 36.8 C 76 18 145/60 H 95 Room Air 12/01/22 02:30 36.6 C 66 18 124/67 95 Room Air Laboratory Results 12/01/22 08:08 12/01/22 06:13 PG Care Time/CCT Total # of Minutes Spent Total Time Spent with Patient: Total time spent is greater than 50% in coordination of care (as documented) at patient's floor/unit and/or counseling patient: Coding Level of Care Code 62986 SUB INP/OBS CARE 3/50MIN Diagnoses Cellulitis of left foot L03.116 Leukocytosis D72.829 PAD (peripheral artery disease) I73.9 Anemia D64.9 PAF (paroxysmal atrial fibrillation) I48.0 RA (rheumatoid arthritis) M06.9
[2022-12-01] MEDS ORDERED: oxyCODONE HCL IR 5 MG TAB (IMMEDIATE RELEASE) PO PRN (11:18)
[2022-12-01] MEDS: HYDROmorphone INJ 0.5 MG/0.5 ML SYR IV PRN ×2 (17:08→21:43)
--- NOTE | 2022-12-01 18:54 | Orthopedic Progress Note ---
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 Dressing changed with out incident. Adaptic, 4x4, ABD, kerlix, Son. Awaiting cultures and sensitives. Concern over elevated WBC. Patient non weight bearing to left foot. Will continue to follow while in house. (2) Cellulitis of left foot: (3) Ischemic ulcer of toe of left foot: Admission and Anticipated Discharge Date Admission Date: November 28, 2022 Subjective Patient seen at bedside this morning with present. Patient is status post day #1 left foot amputation. Patient relates pain is well controlled. Review of Systems Review of Systems: All systems reviewed & are unremarkable except as noted in Subjective Physical Exam Constitutional: cooperative and comfortable Eyes: normal visual adrian by confrontation Neck: normal visual inspection and trachea midline Respiratory: normal respiratory effort Cardiovascular: Rate/Rhythm: regular rate and regular rhythm Musculoskeletal: Extremities: + amputation noted (Right AKA) and + foot abnormality (Lisfranc amputation) Left Skin: + incision (skin well co-apted. ) Results & Data Vital Signs (Past 12 Hours) Vital Signs Temp Pulse Pulse Resp BP Pulse Ox O2 Del Method 12/01/22 15:00 83 12/01/22 14:56 36.8 C 82 14 130/65 94 Room Air 12/01/22 11:11 36.8 C 80 18 129/64 95 Room Air 12/01/22 09:00 73 12/01/22 07:27 36.8 C 76 18 145/60 H 95 Room Air
[2022-12-01] MEDS: predniSONE 1 MG TAB PO SCH (20:12)
[2022-12-01] MEDS ORDERED: HYDROmorphone INJ 1 MG/ML SYRINGE IV STA (22:20)
[2022-12-02] MEDS: PIPERACILLIN/TAZOBACTAM 4.5 GM in DEXTROSE 5% 100 ML IV SCH ×2 (01:43→06:04)
[2022-12-02] MEDS: HYDROmorphone INJ 0.5 MG/0.5 ML SYR IV PRN ×4 (02:38→18:04)
[2022-12-02 05:59] LABS: Basophils % (auto) 0.6 %; Eosinophils # (auto) 0.39 K/uL (0-0.50); Eosinophils % (auto) 2.3 %; Hematocrit (blood only) 26.3 % (37.0-47.0); Hemoglobin 8.6 g/dl (12.0-16.0); Immature Granulocytes % (auto) 1.8 %; Lymphocytes # (auto) 1.71 K/uL (1.2-3.4); Lymphocytes % (auto) 10.1 %; Mean Corpuscular Hemoglobin 29.7 pg (25.0-34.0); Mean Corpuscular Hgb Conc 32.7 g/dL (32.0-36.0); Mean Corpuscular Volume 90.7 fL (80.0-100.0); Mean Platelet Volume 9.1 fL (9.4-12.4); Monocytes # (auto) 1.21 K/uL (0.11-0.59); Monocytes % (auto) 7.2 %; Neutrophils # (auto) 13.18 K/uL (1.40-6.50); Platelet Count 476 K/uL (130-400); RDW Coefficient of Variation 14.8 % (11.5-14.5); RDW Standard Deviation 48.6 fL (36.4-46.3); White Blood Count 16.89 K/ul (4.8-10.8)
[2022-12-02 06:15] LABS: BUN Creatinine Ratio 18.3 (10-20); Calcium 8.7 mg/dl (8.6-10.3); Est GFR (African American) 70.2 ml/min; Est GFR (Non-African American) 60.5 ml/min; Potassium 4.3 mmol/L (3.5-5.1)
[2022-12-02] MEDS: oxyCODONE HCL 10 MG TABCR (OxyCONTIN) PO SCH (08:02)
[2022-12-02] MEDS: hydrALAZINE HCL 25 MG TAB PO SCH ×3 (08:02→22:17)
[2022-12-02] MEDS: GABAPENTIN 300 MG CAP PO SCH ×3 (08:02→22:16)
[2022-12-02] MEDS: ACETAMINOPHEN 500 MG TAB PO SCH ×3 (08:02→22:17)
[2022-12-02] MEDS: POLYETHYLENE (MIRALAX) 17 GM PACK PO SCH (08:04)
[2022-12-02] MEDS: FERROUS SULFATE 325 MG TAB PO SCH (08:04)
[2022-12-02] MEDS: PANTOprazole 40 MG TAB PO SCH ×2 (08:04→22:17)
[2022-12-02] MEDS: OXYBUTYNIN CHLORIDE XL 5 MG TABCR PO SCH (08:04)
[2022-12-02] MEDS: DULoxetine HCL 30 MG CAP PO SCH (08:04)
[2022-12-02] MEDS: SENNA 8.6 MG TAB PO SCH ×2 (08:04→22:14)
[2022-12-02] MEDS: amLODIPine BESYLATE 5 MG TAB PO SCH (08:04)
[2022-12-02] MEDS: CALCIUM 600MG + VIT D 400 IU TAB PO SCH ×2 (08:04→22:17)
[2022-12-02] MEDS: ADVANCED PROBIOTIC 1250 MG CAPSULE PO SCH (08:04)
[2022-12-02] MEDS: AMIODARONE 200 MG TAB PO SCH (08:04)
[2022-12-02] MEDS: predniSONE 5 MG TAB PO SCH (08:04)
--- NOTE | 2022-12-02 08:45 | Hospitalist Progress Note ---
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 Hill - Empirically placed on Vancomycin and Zosyn on admit, culture resulted Morganella intermediate to zosyn, considering cipro/meropenem - Wound culture prelim demonstrates GNB -Morganella - Blood cultures penidng - Continue to hold immunosuppressive agents Arava and Plaquenil - Dressing changes per Dr. Hill, appreciate assistance - Pain control (2) Leukocytosis: Plan: Acute/unstable - moderate risk Improving secondary to infection (3) PAD (peripheral artery disease): Plan: Chronic/stable - S/p arteriogram of Left Lower Extremity w/ percutaneous Transluminal Angioplasty and Stenting of Left SFA on November 04. 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 Compared to the prior exam, the peroneal artery is visualized and found to be patent. (4) Anemia: Plan: Chronic/unstable - Chronic SEBASTIÁN with a hgb range of 9-11 - CBC reviewed, noted drop in hgb from 9.2 on 11/28 to 8.0 on 11/29 - No s/sx of bleeding - suspect drop is partially dilutional effect and perhaps very mild acute blood loss from surgery (5) PAF (paroxysmal atrial fibrillation): Plan: H/o AFib/HTN - Examines in NSR, controlled ventricular rate - Continue amiodarone for rhythm control - Apixaban - Continue Hydralazine and Amlodipine for HTN which is also well controlled (6) RA (rheumatoid arthritis): Plan: Chronic/stable - Arava and Plaquenil held given current infection and RA well controlled - Continued on her chronic prednisone for adrenal insufficiency Admission and Anticipated Discharge Date Admission Date: November 28, 2022 Subjective Patient is doing well in her room she has a bandage on her foot says this her surgery did come by and evaluate the wound and is improving. She grew Morganella from her cultures pain control is with Toradol and Ultram Physical Exam Physical Exam: Awake remembers me from previous hospital stay No cardiopulmonary distress on examination Surgical site is bandaged today Results & Data Results & Data Vital Signs (Past 12 Hours) Vital Signs Temp Pulse Resp BP Pulse Ox O2 Del Method 12/02/22 07:56 97.7 F 74 18 165/62 H 97 Room Air 12/01/22 23:39 98.4 F 76 22 146/69 H 97 Room Air Laboratory Results Reviewed CBC reviewed chemistry PG Care Time/CCT Total # of Minutes Spent Total Time Spent with Patient: Total time spent is greater than 50% in coordination of care (as documented) at patient's floor/unit and/or counseling patient: Coding Level of Care Code 03286 SUB INP/OBS CARE 2/35MIN Diagnoses Cellulitis of left foot L03.116 Leukocytosis D72.829 PAD (peripheral artery disease) I73.9 Anemia D64.9 PAF (paroxysmal atrial fibrillation) I48.0 RA (rheumatoid arthritis) M06.9
[2022-12-02] MEDS: CIPROFLOXACIN / D5W 400 MG/200 ML BAG IV SCH ×2 (09:40→22:17)
[2022-12-02] MEDS ORDERED: KETOROLAC TROMETHAMINE 15 MG/ML VIAL IV ONE (09:45)
[2022-12-02] MEDS: KETOROLAC TROMETHAMINE 15 MG/ML VIAL IV PRN ×2 (15:47→22:21)
[2022-12-02] MEDS: oxyCODONE HCL IR 5 MG TAB (IMMEDIATE RELEASE) PO PRN (19:00)
[2022-12-02] MEDS: predniSONE 1 MG TAB PO SCH (22:17)
--- NOTE | 2022-12-03 08:07 | Electrocardiogram Report ---
Test Reason : Blood Pressure : / mmHG Vent. Rate : 089 BPM Atrial Rate : 089 BPM P-R Int : 170 ms QRS Dur : 082 ms QT Int : 366 ms P-R-T Axes : 088 028 145 degrees QTc Int : 445 ms Poor data quality, interpretation may be adversely affected Normal sinus rhythm Nonspecific ST and T wave abnormality Abnormal ECG When compared with ECG of 28-NOV-2022 14:34, Criteria for Septal infarct are no longer Present Confirmed by Nabor Fuentes ([id number]) on 12/03/2022 8:06:58 AM Referred By: Molina Hill Confirmed By:Nabor Fuentes
[2022-12-03] MEDS: ADVANCED PROBIOTIC 1250 MG CAPSULE PO SCH (08:38)
[2022-12-03] MEDS: CALCIUM 600MG + VIT D 400 IU TAB PO SCH ×2 (08:38→19:43)
[2022-12-03] MEDS: PANTOprazole 40 MG TAB PO SCH ×2 (08:38→19:46)
[2022-12-03] MEDS: hydrALAZINE HCL 25 MG TAB PO SCH ×3 (08:38→19:43)
[2022-12-03] MEDS: SENNA 8.6 MG TAB PO SCH ×2 (08:38→19:45)
[2022-12-03] MEDS: ACETAMINOPHEN 500 MG TAB PO SCH ×3 (08:38→19:44)
[2022-12-03] MEDS: GABAPENTIN 300 MG CAP PO SCH ×3 (08:38→19:43)
[2022-12-03] MEDS: DULoxetine HCL 30 MG CAP PO SCH (08:39)
[2022-12-03] MEDS: amLODIPine BESYLATE 5 MG TAB PO SCH (08:39)
[2022-12-03] MEDS: FERROUS SULFATE 325 MG TAB PO SCH (08:39)
[2022-12-03] MEDS: POLYETHYLENE (MIRALAX) 17 GM PACK PO SCH (08:39)
[2022-12-03] MEDS: OXYBUTYNIN CHLORIDE XL 5 MG TABCR PO SCH (08:39)
[2022-12-03] MEDS: predniSONE 5 MG TAB PO SCH (08:39)
[2022-12-03] MEDS: CIPROFLOXACIN / D5W 400 MG/200 ML BAG IV SCH ×2 (08:46→21:30)
[2022-12-03 09:47] LABS: Hematocrit (blood only) 29.6 % (37.0-47.0); Hemoglobin 9.1 g/dl (12.0-16.0); Mean Corpuscular Hemoglobin 28.8 pg (25.0-34.0); Mean Corpuscular Hgb Conc 30.7 g/dL (32.0-36.0); Mean Corpuscular Volume 93.7 fL (80.0-100.0); Mean Platelet Volume 9.2 fL (9.4-12.4); Platelet Count 492 K/uL (130-400); RDW Coefficient of Variation 15.3 % (11.5-14.5); RDW Standard Deviation 52.1 fL (36.4-46.3); Red Blood Count 3.16 M/uL (4.20-5.40); White Blood Count 11.79 K/ul (4.8-10.8)
[2022-12-03] MEDS: oxyCODONE HCL IR 5 MG TAB (IMMEDIATE RELEASE) PO PRN ×2 (11:07→23:43)
--- NOTE | 2022-12-03 17:07 | Hospitalist Progress Note ---
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 Hill - Empirically placed on Vancomycin and Zosyn on admit, culture resulted Morganella intermediate to zosyn, considering changes ciprofloxacin - Wound culture prelim demonstrates GNB -Morganella - Blood cultures negative to date - Continue to hold immunosuppressive agents Arava and Plaquenil - Dressing changes per Dr. Hill, appreciate assistance - Pain control much better (2) Leukocytosis: Plan: Acute/unstable - moderate risk Improving secondary to infection (3) PAD (peripheral artery disease): Plan: Chronic/stable - S/p arteriogram of Left Lower Extremity w/ percutaneous Transluminal Angioplasty and Stenting of Left SFA on November 04. 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 Compared to the prior exam, the peroneal artery is visualized and found to be patent. (4) Anemia: Plan: Chronic/unstable - Chronic SEBASTIÁN with a hgb range of 9-11 - CBC reviewed, noted drop in hgb from 9.2 on 11/28 to 8.0 on 11/29 - (5) PAF (paroxysmal atrial fibrillation): Plan: H/o AFib/HTN - Examines in NSR, controlled ventricular rate - Continue amiodarone for rhythm control - Apixaban - Continue Hydralazine and Amlodipine for HTN which is also well controlled (6) RA (rheumatoid arthritis): Plan: Chronic/stable - Arava and Plaquenil held given current infection and RA well controlled - Continued on her chronic prednisone for adrenal insufficiency Admission and Anticipated Discharge Date Admission Date: November 28, 2022 Subjective Patient is pleasant, foot dressing on some bleeding on it. Foot itself as is clean and intact there is some white blanching near the wound margins and erythema to the dorsum of the foot Her pain is now much better controlled Physical Exam Physical Exam: Awake alert and appropriate cardiac exam is regular Left foot was undressed and inspected suture line is intact there are few areas of very white skin along the margin lines which leads concern for perfusion however the dorsum of the foot has good capillary refill Results & Data Results & Data Vital Signs (Past 12 Hours) Vital Signs Temp Pulse Resp BP BP Pulse Ox O2 Del Method 12/03/22 11:09 98.4 F 80 18 144/65 H 97 Room Air 12/03/22 07:22 97.9 F 78 18 169/73 H 98 Room Air Laboratory Results Reviewed CBC PG Care Time/CCT Total # of Minutes Spent Total Time Spent with Patient: Total time spent is greater than 50% in coordination of care (as documented) at patient's floor/unit and/or counseling patient: Coding Level of Care Code 30845 SUB INP/OBS CARE 2/35MIN Diagnoses Cellulitis of left foot L03.116 Leukocytosis D72.829 PAD (peripheral artery disease) I73.9 Anemia D64.9 PAF (paroxysmal atrial fibrillation) I48.0 RA (rheumatoid arthritis) M06.9
[2022-12-03] MEDS: predniSONE 1 MG TAB PO SCH (19:45)
[2022-12-03] MEDS: KETOROLAC TROMETHAMINE 15 MG/ML VIAL IV PRN (20:58)
--- NOTE | 2022-12-03 21:17 | Orthopedic Progress Note ---
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 Dressing changed with out incident. Adaptic, 4x4, ABD, kercarlos, Son. Reviewed cultures and sensitives, growth shows Morganella morganii. WBC trending down. Patient non weight bearing to left foot. Will continue to follow while in house. (2) Cellulitis of left foot: (3) Ischemic ulcer of toe of left foot: Admission and Anticipated Discharge Date Admission Date: November 28, 2022 Subjective Patient seen at bedside. is present. Patient has no complaints. Review of Systems Review of Systems: All systems reviewed & are unremarkable except as noted in Subjective Physical Exam Constitutional: cooperative and comfortable Eyes: normal visual adrian by confrontation Neck: normal visual inspection and trachea midline Respiratory: normal respiratory effort Cardiovascular: Rate/Rhythm: regular rate and regular rhythm Musculoskeletal: Extremities: + amputation noted (Right AKA) and + foot abnormality (Lisfranc amputation) Skin: + incision (skin well co-apted. ) Results & Data Vital Signs (Past 12 Hours) Vital Signs Temp Pulse Resp BP Pulse Ox O2 Del Method 12/03/22 20:44 36.7 C 82 16 168/77 H 94 Room Air 12/03/22 19:40 36.9 C 79 16 142/75 H 94 Room Air 12/03/22 11:09 36.9 C 80 18 144/65 H 97 Room Air [place] [address] / Director: Lorenzo Mejia M.D. Clinical Laboratory Report Name: ZARIA MARTIN Acct: [id number] Status: ADM IN : 1950 [facility] [place] Date: 11/28/22 Age: 72 Sex: F Dis Date: Loc: Medical/Surgical/Ortho 3 [facility]/Bed: W360-1 Spec: [id number] Collected: 11/30/22-UNK Received: 11/30/22-1007 [facility] Dr: Molina Hill, DPM, MS Copy To: Tang Henry MD Source: Foot,Left OV Order: Ordered: Aer/Lorena Cult/Sm Comments: Comment Culture 1: Left Foot Procedure Result Verified Site Gram Stain Final 11/30/22-1058 Gram Stain Result Rare Epithelial Cells Few WBCs Seen Rare Gram Positive Cocci Rare Gram Negative Bacilli Aero/Lorena Cult Preliminary 12/03/22-1117 Organism 1 Morganella morganii Quantity Moderate Sens Sensitivities to Follow +MixWound Plus Moderate Counts of Probable Skin Melba M morganii RX M.I.C. --- --------- Amp/Sul R >16/8 Cefepime I 8 Ceftriaxone R >2 Ciprofloxacin S <=0.25 Ertapenem S <=0.5 Gentamicin S <=4 Levofloxacin S <=0.5 Meropenem S <=1 Tobramycin S <=4 Trimeth/Sulfa S <=2/38 Pip/Tazo I 64 Morganella morganii: Negative/Urine Combo 90 Cefepime result is shown as I-Intermediate According to CLSI the interpretation should be SDD Susceptible-dose dependent. S = SENSITIVE I = INTERMEDIATE R = RESISTANT Name: ZARIA MARTIN : 1950 PAGE 1 Printed: 12/03/222119 END OF REPORT
[2022-12-03] MEDS: HYDROmorphone INJ 0.5 MG/0.5 ML SYR IV PRN (22:42)
[2022-12-04] MEDS: ACETAMINOPHEN 500 MG TAB PO SCH ×2 (07:54→13:46)
[2022-12-04] MEDS: PANTOprazole 40 MG TAB PO SCH (07:54)
[2022-12-04] MEDS: ADVANCED PROBIOTIC 1250 MG CAPSULE PO SCH (07:55)
[2022-12-04] MEDS: GABAPENTIN 300 MG CAP PO SCH ×2 (07:55→13:46)
[2022-12-04] MEDS: CALCIUM 600MG + VIT D 400 IU TAB PO SCH (07:55)
[2022-12-04] MEDS: hydrALAZINE HCL 25 MG TAB PO SCH ×2 (07:55→13:46)
[2022-12-04] MEDS: FERROUS SULFATE 325 MG TAB PO SCH (07:55)
[2022-12-04] MEDS: AMIODARONE 200 MG TAB PO SCH (07:56)
[2022-12-04] MEDS: amLODIPine BESYLATE 5 MG TAB PO SCH (07:56)
[2022-12-04] MEDS: OXYBUTYNIN CHLORIDE XL 5 MG TABCR PO SCH (07:56)
[2022-12-04] MEDS: DULoxetine HCL 30 MG CAP PO SCH (07:56)
[2022-12-04] MEDS: POLYETHYLENE (MIRALAX) 17 GM PACK PO SCH (07:57)
[2022-12-04] MEDS: SENNA 8.6 MG TAB PO SCH (07:57)
[2022-12-04] MEDS: predniSONE 5 MG TAB PO SCH (07:59)
[2022-12-04] MEDS: CIPROFLOXACIN / D5W 400 MG/200 ML BAG IV SCH (09:10)
--- NOTE | 2022-12-04 16:34 | Discharge Summary ---
Date of Service December 04, 2022 Admission HPI Per Admitting Provider Jacklyn Esparza is a 72 year old female who presents to the ER on advice of her integration aide due to worsening foot infection s/p transmetatarsal amputation on November 21. She received daptomycin during her inpatient stay for her ulcer and was discharged on Augmentin. Blood cultures were negative. Ankle surface culture from her ankle in September grew coag negative staph although no surface culture present from last admission. Reportedly after discharge her foot has become increasingly painful and necrotic since discharge. No fever or chills. No change in temperature of her foot. Foot pain severity 10/10 on arrival to the ER, currently 8/10. She underwent arteriogram of Left Lower Extremity with percutaneous Transluminal Angioplasty and Stenting of Left Superficial Femoral Artery on November 04. Repeat arterial US following this procedure showed no focal / high grade large vessel stenosis. Principal Diagnosis Patient underwent left rear foot amputation on November [address] Hill cultures grew Morganella treatment rendered will be ciprofloxacin Discharge Exam Patient's wound was inspected the day of discharge there is good capillary refill no drainage Her medical condition otherwise is intact with no problems with shortness of breath or chest pain cardiac exam is regular lungs are clear Discharge Data Allergies Allergy/AdvReac Type Severity Reaction Status Date / Time dalbavancin Allergy Severe hypotension, Verified 11/28/22 15:37 flushing, tachypnea Consultations 11/28/22 15:43 ED Decision to Admit Stat 11/28/22 16:41 Consult Orthopedic Surgery Routine Procedures Performed Operation Date: 11/30/22 07:30 Actual Procedures p Left Rear Foot Amputation(Left) - Molina Hill, TISH, MS Ordered Studies Foot X-Ray 11/28/22 14:19 XR foot LT min 3V routine CLINICAL HISTORY: recent surgery, necrotic?/pain TECHNIQUE: 3 views of the left foot were obtained. Comparison: Comparison is made to foot radiographs 11/18/2022 FINDINGS: Patient is status post mid metatarsal amputation of the foot. Extensive degenerative changes are seen. No erosions are seen. Vascular calcifications are noted. IMPRESSION: No radiographic evidence of osteomyelitis. If clinical concern remains, MRI is a more sensitive modality. Mid metatarsal amputation is seen. ACT 112: Negative or not required by law. Electronically signed by: Hai Weems M.D. 11/28/2022 3:26 PM Duplex Scan Lower Extremity Artery 11/28/22 16:37 US arterial duplex LE CLINICAL HISTORY: left foot cellulitis, known ischemic foot disease TECHNIQUE: Real-time grayscale and color and spectral Doppler ultrasound imaging of the left lower extremity arteries was performed. Measurements calculated based on NASCET criteria. COMPARISON: None available at the time of this dictation. FINDINGS: LEFT: Common femoral artery: Triphasic waveforms. Peak systolic velocity (PSV) 138 cm/s. Deep femoral artery: Triphasic waveforms. PSV 193 cm/s. Superficial femoral artery: Triphasic waveforms. PSV 147 cm/s. Popliteal artery: Triphasic waveforms. PSV 45 cm/s. Anterior tibial artery: Monophasic waveforms. PSV 60 cm/s. Posterior tibial artery: Monophasic waveforms. PSV 54 cm/s. Peroneal artery: Monophasic waveforms. PSV 123 cm/s. Dorsalis pedis: Monophasic waveforms. PSV 127 cm/s. Reference ranges: Normal Ankle/Brachial Index (MISHEL) 1.0-1.4; 0.91-0.99 borderline; < or = 0.9 abnormal (0.7-0.89 mild, 0.51-0.69 moderate, < or = 0.5 severe peripheral arterial disease). Normal Toe/Brachial Index (TBI) > or = 0.6; < 0.6 abnormal (0.34-0.59 mild, 0.12-0.34 moderate, < or = 0.11 severe peripheral arterial disease). IMPRESSION: Monophasic waveforms and elevated velocities in the distal peroneal and dorsalis pedis arteries compatible with peripheral vascular disease. Compared to the prior exam, the peroneal artery is visualized and found to be patent. ACT 112: Negative or not required by law. Electronically signed by: Hai Weems M.D. 11/28/2022 7:16 PM Foot MRI 11/28/22 20:37 Exam(s): MRI LEFT FOOT W/WO Contrast IV Amt: 5.5 GADAVIST EXAM: MR Left Lower Extremity Without and With Intravenous Contrast, Foot CLINICAL HISTORY: Reason for exam: r/o osteomyelitis. TECHNIQUE: Multiplanar magnetic resonance images of the left foot without and with intravenous contrast. CONTRAST: Patient received 5.5 GADAVIST of IV contrast COMPARISON: No relevant prior studies available. FINDINGS: LIGAMENTS: Medial collateral: Unremarkable. Lateral collateral: Unremarkable. Lisfranc: Unremarkable. TENDONS: Flexor: Unremarkable. Extensor: Unremarkable. Peroneal: Unremarkable. Tibialis anterior: Unremarkable. Tibialis posterior: Unremarkable. Muscles: Unremarkable. Fluid: Unremarkable. No joint effusion. Sinus tarsi: Unremarkable as visualized. Tarsal tunnel: Unremarkable. Plantar fascia: Unremarkable. Cartilage: Unremarkable. Bones/joints: There is a rim-enhancing collection within the calcaneus measuring 2.1 x 2.3 cm (image 22 series 11). There are degenerative changes of the tarsus. Soft tissues: There is moderate soft tissue swelling about the foot. IMPRESSION: Findings concerning for intraosseous abscess in the calcaneus measuring up to 2.3 cm. Electronically signed by: Dean Presaud MD 11/29/22 00:06 AM Hospital Course (1) Cellulitis of left foot: Stable after surgery - s/p Left Foot Transmetatarsal Amputation 11/21 & left rear foot amputation secondary to calcaneal abscess on 11/[address] Hill - Empirically placed on Vancomycin and Zosyn on admit, culture resulted Morganella discharged to complete 2 weeks ciprofloxacin - Blood cultures negative to date - Continue to hold immunosuppressive agents Arava and Plaquenil until told to resume by Dr. Hill -Patient postoperative follow-up appoint with surgery (2) PAD (peripheral artery disease): Chronic/stable - S/p arteriogram of Left Lower Extremity w/ percutaneous Transluminal Angioplasty and Stenting of Left SFA on November 04. 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 Compared to the prior exam, the peroneal artery is visualized and found to be patent. (3) Anemia: Chronic/unstable - Chronic SEBASTIÁN with a hgb range of 9-11 -Recommend good nutrition and including iron and containing supplements - (4) PAF (paroxysmal atrial fibrillation): H/o AFib/HTN - Examines in NSR, controlled ventricular rate - Continue amiodarone for rhythm control - Apixaban - Continue Hydralazine and Amlodipine for HTN which is also well controlled (5) RA (rheumatoid arthritis): Chronic/stable - Arava and Plaquenil held given current infection and RA well controlled - Continued on her chronic prednisone for adrenal insufficiency Total Time Total Time Spent Total Time Spent (In Minutes): It required greater than 30 minutes to prepare this patient for discharge Discharge Plan Discharge Items Patient Disposition: Home - Self-Care Reason For Visit: LEFT FOOT CELLULITIS S/P AMPUTATION Discharge Diagnosis: left foot cellulitis with amputation Activity: Per Instructions section Activity Comment: non weight bearing to left foot Non-emergency contact: Primary Care Provider and Surgeon Call non-emergency contact if: your symptoms worsen Follow-up/Referrals: Sylvia Nails MD [Primary Care Provider] - Molina Hill DPM, MS [Physician] - 12/11/22 1:30 pm ([place] [facility] [address] [facility] [address] [place] [address] ) Diet: Regular Addtl Attending Provider Instructions: keep foot bandaged and elevated until you are told otherwise by Dr Hill remove and wash foot daily with mild soap and water, pat dry, use a nonstick or vaseline guaze dressing and cover with a clean dry dressing please take pain medicine carefully hold arava and plaquenil until your wound is healed Pending Studies at Discharge: No Stand-Alone Forms: My SMRxT, Smoking Cessation Medications and DC Order Prescriptions: New ciprofloxacin HCl [Cipro] 500 mg tablet 500 mg PO BID Qty: 20 0RF Continued meclizine 25 mg tablet 25 mg PO BID PRN (Reason: dizziness) Qty: 20 0RF duloxetine 30 mg capsule,delayed release(DR/EC) 30 mg PO DAILY Qty: 90 3RF Patient Comments: QAM Eliquis 5 mg tablet 5 mg PO BID Qty: 180 3RF omeprazole 20 mg capsule,delayed release(DR/EC) 20 mg PO BID Qty: 180 3RF prednisone 5 mg tablet 5 mg PO QAM Qty: 90 1RF prednisone 1 mg tablet 1 mg PO QPM Qty: 90 1RF gabapentin 300 mg capsule 300 mg PO TID 90 Days Qty: 270 1RF ferrous sulfate 325 mg (65 mg iron) tablet 325 mg PO QAM Qty: 90 1RF amiodarone 200 mg tablet 200 mg PO Q2D Qty: 90 1RF Patient Comments: QAM hydralazine 25 mg tablet 25 mg PO TID Qty: 270 1RF calcitriol [Rocaltrol] 0.5 mcg capsule 0.5 mcg PO 2XWK Qty: 30 3RF Rx Instructions: Mondays and Fridays oxybutynin chloride 15 mg tablet extended release 24hr 15 mg PO DAILY Qty: 90 1RF Patient Comments: QPM amlodipine 5 mg tablet 5 mg PO DAILY Qty: 90 3RF Probiotic 3 billion cell Capsule 3,000 mmu cells PO QAM Calcium 600 + D(3) 600 mg calcium- 200 unit Capsule 1 cap PO BID acetaminophen 325 mg Tablet 650 mg PO Q6H 14 Days Qty: 112 0RF oxycodone [OxyContin] 10 mg Tablet,Oral Only,Ext.Rel.12 Hr 10 mg PO BID Qty: 20 0RF sennosides 8.6 mg capsule 8.6 mg PO BID Qty: 30 0RF polyethylene glycol 3350 [Miralax] 17 gram powder in packet 17 g PO DAILY Qty: 14 0RF oxycodone 5 mg Tablet 5 mg PO Q6H PRN (Reason: breakthrough pain) Qty: 20 0RF Discontinued leflunomide [Arava] 20 mg tablet 20 mg PO QAM Qty: 90 0RF hydroxychloroquine [Plaquenil] 200 mg tablet 200 mg PO DAILY Qty: 90 0RF cranberry 500 mg Capsule 500 mg PO QPM amoxicillin-pot clavulanate 875-125 mg tablet 1 tab PO BID Qty: 20 0RF Rx Instructions: STARTED 11/25/22 FOR 10 DAYS. Discharge Orders: Discharge Order (Routine); Ordered 12/04/22 Ordered By: Franklin Mccoy Admission Data Admit Date/Time: 11/28/22 16:23 Attending Provider: Franklin Mccoy Admit Provider: Tang Henry Primary Care Provider: Sylvia Nails Other Providers: Tang Henry ; Molina Hill ; [facility] Other Interventions: Discharge Summary Assessment (RN) Last Done: 12/04/22 14:41 Coding Level of Care Code 37463 INP/OBS DISCH >30 MIN Diagnoses Cellulitis of left foot L03.116 PAD (peripheral artery disease) I73.9 Anemia D64.9 PAF (paroxysmal atrial fibrillation) I48.0 RA (rheumatoid arthritis) M06.9
== END 2022-12-04 17:06 | disposition home health service (06) | DRG 240 ==
LOC: ED 13:59 → SUATTDRO 16:23 → 2W 16:23 → 3W 12-03 20:27